=== PATIENT | female | born 1975 | race Caucasian/White ===

== ENCOUNTER 2018-05-18 15:04 | Emergency (ER) | payer MEDICAID, SELFPAY ==
[2018-05-18 15:06] VITALS: BP 104/66; PULSE 76; RESP 14; TEMP 36.5; O2SAT 98; BMI 21.9
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
--- NOTE | 2018-05-18 15:49 | ED.DEP ---
ED Disposition - Plan for ED Patient: Instructions: ED Sinusitis No Abx Prescriptions: Emtricitabine/Tenofovir (Tdf) [Truvada 200 mg-300 mg Tablet] 1 ea PO DAILY 28 Days #28 tab Guaifenesin [Mucinex] 600 mg PO BID #14 tab.er.12h Raltegravir Potassium [Isentress] 400 mg PO BID 28 Days #56 tab Referrals: John Orellana MD [NON-STAFF] - Additional Instructions: Follow-up in 2 weeks with your primary doctor for repeat blood testing. Follow-up in 4 weeks with your primary doctor for repeat blood testing again as well as your second dose of hepatitis B vaccine and second dose of hepatitis B immunoglobulin. After that, follow-up with your doctor as he or she recommends.
[2018-05-18 16:07] LABS: Absolute Lymphocyte Count 1.83 X10^3/ul (0.83-4.51); Absolute Neutrophil Count 3.1 X10^3/uL (2.0-7.7); Basophil# 0.03 X10^3/uL; Basophil% 0.5 % (0-1); Eosinophil# 0.28 X10^3/uL; Eosinophils% 5.1 % (0-5); Hematocrit 33.2 % (37-47); Hemoglobin 10.9 g/dl (12.0-15.0); Lymphocyte # 1.83 X10^3/ul (4.0); Lymphocyte % 33.4 % (19-41); Mean Corp Hgb Conc 32.8 g/gl (32-36); Mean Corpuscular Hgb 33.3 pg (27.0-32.0); Mean Corpuscular Volume 101.5 fL (81-99); Mean Platelet Vol. 10.5 fl (6.2-12.0); Monocyte# 0.25 X10^3/uL; Monocyte% 4.6 % (0-10); Neutrophil # 3.09 X10^3/uL (2.7-7.7); Neutrophil % 56.4 % (47-70); POSITIVE COUNT NO; POSITIVE DIFFERENTIAL NO; POSITIVE MORPHOLOGY NO; Platelet Count 180 K/mm3 (150-450); RBC Distribution Width CV 13.1 % (11.6-14.6); RBC Distribution Width SD 48.8 fl (35.1-43.9); Red Blood Count 3.27 M/mm3 (4.2-5.4); White Blood Count 5.5 K/mm3 (4.4-11.0)
[2018-05-18] MEDS: EMTRICITABINE/TENOFOVIR 1 TABLET TABLET PO (16:10)
[2018-05-18] MEDS: RALTEGRAVIR POTASSIUM 400 MG TABLET PO (16:11)
[2018-05-18 16:49] LABS: ALB/GLOB Ratio 0.9 RATIO (0.9-2.4); AST(SGOT) 15 U/L (15-37); Alanine Aminotransfer ALT/SGPT 16 U/L (13-56); Albumin, Serum 3.3 g/dL (3.2-5.0); Alkaline Phosphatase 109 U/L (45-117); Anion Gap 5 (5-15); BUN 9 mg/dL (7-18); BUN/Creat Ratio 13.7 RATIO (10-20); Calcium,Total 7.9 mg/dL (8.5-10.1); Chloride 111 mmol/L (98-107); Creatinine, Serum 0.66 mg/dL (0.55-1.02); EST Glomerular Filtration Rate 106 mL/min (>60); Est Glom Filt Rate - Afr Amer 128 mL/min (>60); Estimated Creatinine Clearance 109.08 ml/min; Globulin 3.7 g/dL (2.2-4.2); Glucose 79 mg/dL (74-106); Potassium 3.6 mmol/L (3.5-5.1); Sodium Level 141 mmol/L (136-145)
[2018-05-18 17:09] LABS: Pregnancy, Serum, hCG Quali. NEGATIVE Negative (0-9 Nonpreg)
[2018-05-18 17:42] LABS: HIV - WCH Non-Reactive (Nonreactive)
[2018-05-21 11:34] LABS: HEPATITIS B SURFACE AG Negative (Negative); Hep B Surface Antibodies EMP Non Reactive (.); Hep C Antibodies <0.1 s/co ratio (0.0-0.9)
== END 2018-05-18 17:19 | disposition home or self-care (01) ==
LOC: ED 15:48
PROVIDERS: Emergency Provider Emergency Medicine; Family Provider Family Medicine; PCP Family Medicine
DX: S71.131A Puncture wound without foreign body, right thigh, initial encounter (principal); J32.9 Chronic sinusitis, unspecified; W46.0XXA Contact with hypodermic needle, initial encounter; Y93.9 Activity, unspecified; Y92.9 Unspecified place or not applicable; F31.9 Bipolar disorder, unspecified
CPT/HCPCS: 80053; 84703; 85025; 86703; 86803; 87340; 90371; 90746; 96372; 99283

== ENCOUNTER 2018-06-17 13:14 | Emergency (ER) | payer MEDICAID, SELFPAY ==
[2018-06-17 13:15] VITALS: BP 134/64; PULSE 89; RESP 16; TEMP 37.3; O2SAT 100; BMI 24.5
--- NOTE | 2018-06-17 14:44 | ED.RN ---
PT STATES SHE NEEDED TO GET BACK TO EVERY [facility] BEFORE HER KIDS GOT BACK FROM SCHOOL. STATES SHE WILL TRY TO COME BACK TOMORROW.
== END 2018-06-17 14:45 | disposition left against medical advice (07) ==
LOC: ED 14:46
PROVIDERS: Emergency Provider Emergency Medicine; Family Provider Family Medicine; PCP Family Medicine
DX: M54.9 Dorsalgia, unspecified (principal)

== ENCOUNTER 2018-07-10 14:09 | Emergency (ER) | payer MEDICAID, SELFPAY ==
[2018-07-10 14:10] VITALS: BP 113/67; PULSE 82; RESP 16; TEMP 36.1; O2SAT 100; BMI 24.5
--- NOTE | 2018-07-10 14:30 | RAD_ITS ---
STUDY: X-RAY - SACRUM/COCCYX REASON FOR EXAM: Female, 42 years old. fell this morning -- LBP, tailbone pain. TECHNIQUE: 3 view(s) of the sacrum and coccyx were obtained. COMPARISON: None. FINDINGS: Normal bilateral sacroiliac joints. Normal visualized sacral ala and fused sacral bodies. Normal sacrococcygeal junction with a normal angulation. Normal coccygeal segments. The presacral soft tissue structures are unremarkable. RAD/Sacrum-Coccyx min 2 Views IMPRESSION: Normal x-rays of the sacrum and coccyx. Electronically Signed: Pj Bravo MD at 15:03 EDT Tel , Service support ,
--- NOTE | 2018-07-10 14:31 | RAD_ITS ---
STUDY: X-RAY - LUMBAR SPINE REASON FOR EXAM: Female, 42 years old. fell this morning -- LBP, tailbone pain TECHNIQUE: 5 view(s) of the lumbar spine were obtained. COMPARISON: None FINDINGS: There is straightening of the normal lumbar lordosis. There is multilevel endplate spondylosis of the lumbar vertebrae. There is multi-level degenerative disc disease with multi-level disc space narrowing. Neurostimulator leads with electrode at the thoracic spine is noted. Disc space at L5/S1 is noted. RAD/Lumbar Spine 2 or 3 Views IMPRESSION: Degenerative changes of the spine. Electronically Signed: Pj Bravo MD at 15:01 EDT Tel , Service support ,
--- NOTE | 2018-07-10 14:35 | ED.VIS.GEN ---
History of Present Illness Chief Complaint: Back Informant: Patient Onset: Today - 3-4 hrs ago Context: Sudden Onset - fell Timing: Continuous Quality: aching Location: tailbone/low back Current Severity: Severe Maximum Severity: Severe Worsened by: moving, sitting, walking Relieved by: remaining still Associated Symptoms: no other injury. no numbness/tingling or radiation into BLE. Narrative: Patient was trying to sit on a chair and she accidentally slipped, falling to the floor in her home landing directly onto her buttocks. She has had prior lumbosacral back surgery and is concerned about the area. She has no mid, upper back, or neck pain. No head injury. No focal neurologic symptoms. No bowel or bladder dysfunction. She has urinated since the injury and saw no blood, she has not had a bowel movement. Past Medical History - Allergies and Home Meds Allergies/Adverse Reactions: Allergies erythromycin base Allergy (Verified 05/18/18 15:10) Anaphylaxis iodine Allergy (Verified 05/18/18 15:10) Anaphylaxis latex Allergy (Verified 05/18/18 15:10) Rash metronidazole [From Flagyl] Allergy (Verified 05/18/18 15:10) Anaphylaxis naproxen [From Naprosyn] Allergy (Verified 05/18/18 15:10) Anaphylaxis Penicillins Allergy (Verified 05/18/18 15:10) Anaphylaxis shellfish derived Allergy (Verified 05/18/18 15:10) Anaphylaxis Primary Care Physician: John Orellana MD [Primary Care Provider] - Past Medical History: None Surgical History: - - back Lives: With Family Smoking Status: Former smoker Review of Systems General: Denies: Chills, Fever Genitourinary: Reports: - - no incontinence/retention. Denies: Hematuria, Frequency Musculoskeletal: Reports: Back pain. Denies: Extremity Pain Skin: Denies: Rash, Wounds Neurological: Denies: Weakness, Parasthesia Physical Exam Vital Signs/Narrative: Vital Signs Temp Pulse Resp BP Pulse Ox 07/10/18 14:10 96.9 F L 82 16 113/67 100 Inital Vital Signs reviewed: Yes General: Well nourished, Well developed, No Acute Distress Head: Normocephalic, Atraumatic Abdomen: Soft, Nontender, Nondistended, Normal bowel sounds Back: Normal Inspection, Spinal tenderness - distal lumbar. tender at mid-sacrum, including coccyx, which is not loose or with crepitance. no step-offs. no other spinal tenderness up the spine incl cervical. Extremities: Nontender, No edema, - - FROM all joints, including both hips Skin: Normal color, No rash, No Trauma Neurological: Alert, Oriented x3, Cranial nerves II-XII grossly intact, Normal Strength, Normal Sensation, Normal DTR Psychological: Normal affect, Normal Mood Diagnostic/Tx/Re-eval Clinical Impression(s) from Imaging Studies Sacrum and Coccyx X-Ray 07/10/18 14:30 IMPRESSION: Normal x-rays of the sacrum and coccyx. Electronically Signed: Pj Bravo MD at 15:03 EDT Tel , Service support , Lumbar Spine X-Ray 07/10/18 14:31 IMPRESSION: Degenerative changes of the spine. Electronically Signed: Pj Bravo MD at 15:01 EDT Tel , Service support , - Medical Decision Making X-ray consistent with exam, no acute fractures. Advised to return if she has gross rectal bleeding when she has a bowel movement. I do not recommend narcotics for this contusion, especially since it could cause constipation which could worsen the pain. I discussed this with her and she is agreeable. We will give her a dose Tylenol and an ice pack prior to discharge and she is comfortable with that plan of supportive care as an outpatient. ED Disposition - Plan for ED Patient: Disposition: Home or Assisted Living Diagnosis: Coccyx contusion Instructions: ED Contusion Sacrum Coccyx Referrals: John Orellana MD [Primary Care Provider] - 10-14 Days if not better
--- NOTE | 2018-07-10 14:39 | ED.DCSUM_ITS ---
History of Present Illness Chief Complaint: Back Informant: Patient Onset: Today - 3-4 hrs ago Context: Sudden Onset - fell Timing: Continuous Quality: aching Location: tailbone/low back Current Severity: Severe Maximum Severity: Severe Worsened by: moving, sitting, walking Relieved by: remaining still Associated Symptoms: no other injury. no numbness/tingling or radiation into BLE. Narrative: Patient was trying to sit on a chair and she accidentally slipped, falling to the floor in her home landing directly onto her buttocks. She has had prior lumbosacral back surgery and is concerned about the area. She has no mid, upper back, or neck pain. No head injury. No focal neurologic symptoms. No bowel or bladder dysfunction. She has urinated since the injury and saw no blood, she has not had a bowel movement. Past Medical History - Allergies and Home Meds Allergies/Adverse Reactions: Allergies erythromycin base Allergy (Verified 05/18/18 15:10) Anaphylaxis iodine Allergy (Verified 05/18/18 15:10) Anaphylaxis latex Allergy (Verified 05/18/18 15:10) Rash metronidazole [From Flagyl] Allergy (Verified 05/18/18 15:10) Anaphylaxis naproxen [From Naprosyn] Allergy (Verified 05/18/18 15:10) Anaphylaxis Penicillins Allergy (Verified 05/18/18 15:10) Anaphylaxis shellfish derived Allergy (Verified 05/18/18 15:10) Anaphylaxis Primary Care Physician: John Orellana MD [Primary Care Provider] - Past Medical History: None Surgical History: - - back Lives: With Family Smoking Status: Former smoker Review of Systems General: Denies: Chills, Fever Genitourinary: Reports: - - no incontinence/retention. Denies: Hematuria, Frequency Musculoskeletal: Reports: Back pain. Denies: Extremity Pain Skin: Denies: Rash, Wounds Neurological: Denies: Weakness, Parasthesia Physical Exam Vital Signs/Narrative: Vital Signs Temp Pulse Resp BP Pulse Ox 07/10/18 14:10 96.9 F L 82 16 113/67 100 Inital Vital Signs reviewed: Yes General: Well nourished, Well developed, No Acute Distress Head: Normocephalic, Atraumatic Abdomen: Soft, Nontender, Nondistended, Normal bowel sounds Back: Normal Inspection, Spinal tenderness - distal lumbar. tender at mid- sacrum, including coccyx, which is not loose or with crepitance. no step-offs. no other spinal tenderness up the spine incl cervical. Extremities: Nontender, No edema, - - FROM all joints, including both hips Skin: Normal color, No rash, No Trauma Neurological: Alert, Oriented x3, Cranial nerves II-XII grossly intact, Normal Strength, Normal Sensation, Normal DTR Psychological: Normal affect, Normal Mood Diagnostic/Tx/Re-eval Clinical Impression(s) from Imaging Studies Sacrum and Coccyx X-Ray 07/10/18 14:30 IMPRESSION: Normal x-rays of the sacrum and coccyx. Electronically Signed: Pj Bravo MD at 15:03 EDT Tel , Service support , Lumbar Spine X-Ray 07/10/18 14:31 IMPRESSION: Degenerative changes of the spine. Electronically Signed: Pj Bravo MD at 15:01 EDT Tel , Service support , - Medical Decision Making X-ray consistent with exam, no acute fractures. Advised to return if she has gross rectal bleeding when she has a bowel movement. I do not recommend narcotics for this contusion, especially since it could cause constipation which could worsen the pain. I discussed this with her and she is agreeable. We will give her a dose Tylenol and an ice pack prior to discharge and she is comfortable with that plan of supportive care as an outpatient. ED Disposition - Plan for ED Patient: Disposition: Home or Assisted Living Diagnosis: Coccyx contusion Instructions: ED Contusion Sacrum Coccyx Referrals: John Orellana MD [Primary Care Provider] - 10-14 Days if not better
[2018-07-10] MEDS: Acetaminophen 500 MG Tablet 1000 MG PO (16:19)
[2018-07-10 16:22] VITALS: PULSE 86; RESP 16; O2SAT 99
== END 2018-07-10 16:25 | disposition home or self-care (01) ==
PROVIDERS: Emergency Provider Emergency Medicine; Family Provider Family Medicine; PCP Family Medicine
DX: S30.0XXA Contusion of lower back and pelvis, initial encounter (principal); Z87.891 Personal history of nicotine dependence; W07.XXXA Fall from chair, initial encounter; Y93.89 Activity, other specified; Y92.009 Unspecified place in unspecified non-institutional (private) residence as the place of occurrence of the external cause; Y99.8 Other external cause status
CPT/HCPCS: 72100; 72220; 99283

== ENCOUNTER → 2018-12-17 | Outpatient (CLI) | payer MEDICAID, SELFPAY ==
[2018-12-17 10:57] VITALS: BMI 24.5
[2018-12-17 12:44] LABS: Absolute Lymphocyte Count 1.93 X10^3/uL (0.83-4.51); Absolute Neutrophil Count 3.9 X10^3/uL (2.0-7.7); Basophil# 0.03 X10^3/uL; Basophil% 0.5 % (0-1); Eosinophil# 0.17 X10^3/uL; Eosinophils% 2.7 % (0-5); Hematocrit 38.4 % (37-47); Hemoglobin 12.7 g/dL (12.0-15.0); Lymphocyte # 1.93 X10^3/ul (4.0); Lymphocyte % 30.6 % (19-41); Mean Corp Hgb Conc 33.1 g/dL (32-36); Mean Corpuscular Hgb 32.9 pg (27.0-32.0); Mean Corpuscular Volume 99.5 fL (81-99); Mean Platelet Vol. 11.2 fl (6.2-12.0); Monocyte# 0.27 X10^3/uL; Monocyte% 4.3 % (0-10); NRBC Flagged by Analyzer 0 % (0-5); Neutrophil # 3.89 X10^3/uL (2.7-7.7); Neutrophil % 61.7 % (47-70); Platelet Count 166 K/mm3 (150-450); RBC Distribution Width CV 11.9 % (11.6-14.6); RBC Distribution Width SD 43.9 fl (35.1-43.9); Red Blood Count 3.86 M/mm3 (4.2-5.4); White Blood Count 6.3 K/mm3 (4.4-11.0)
[2018-12-17 13:04] LABS: ALB/GLOB Ratio 0.9 RATIO (0.9-2.4); AST(SGOT) 16 U/L (15-37); Alanine Aminotransfer ALT/SGPT 18 U/L (13-56); Albumin, Serum 3.3 g/dL (3.2-5.0); Alkaline Phosphatase 109 U/L (45-117); Anion Gap 5 (5-15); BUN 9 mg/dL (7-18); BUN/Creat Ratio 12.9 RATIO (10-20); Calcium,Total 8.3 mg/dL (8.5-10.1); Chloride 111 mmol/L (98-107); EST Glomerular Filtration Rate 98 mL/min (>60); Est Glom Filt Rate - Afr Amer 118 mL/min (>60); Globulin 3.7 g/dL (2.2-4.2); Glucose 92 mg/dL (74-106); Potassium 4.3 mmol/L (3.5-5.1); Sodium Level 143 mmol/L (136-145)
== END | disposition home or self-care (01) ==
LOC: BIMLAB 11:21
PROVIDERS: Family Provider Family Medicine; PCP Internal Medicine; Visit Provider Internal Medicine
DX: R56.9 Unspecified convulsions (principal)
CPT/HCPCS: 36415; 80053; 85025

== ENCOUNTER 2019-01-09 16:27 | Emergency (ER) | payer MEDICAID, SELFPAY ==
[2018-12-17 10:57] VITALS: BMI 24.5
[2019-01-09 16:28] VITALS: BP 99/75; PULSE 102; RESP 16; TEMP 36.6; O2SAT 99; BMI 25.7
--- NOTE | 2019-01-09 16:42 | CT_ITS ---
STUDY: CT BRAIN WITHOUT CONTRAST REASON FOR EXAM: Female, 43 years old. Trauma RADIATION DOSAGE (If Supplied By Facility): CTDIvol = ( 44.99 ) mGy, DLP = ( 745.49 ) mGycm TECHNIQUE: Transaxial CT imaging of the brain was performed without administration of intravenous contrast material. Individualized dose optimization techniques were used for this CT. COMPARISON: No relevant priors. FINDINGS: Normal soft tissue structures. Normal calvarium. Normal size ventricles and extra-axial spaces for the patient's age. Normal white matter tracts of the cerebral hemispheres. Normal basal ganglia and thalami. Normal brainstem. Normal cerebellum. There is no intracranial hemorrhage. There are no findings of an acute ischemic infarction. Small mucous retention cyst in right maxillary sinus. CT/Brain/Head without Contrast IMPRESSION: Normal unenhanced CT scan of the brain. Minor right maxillary sinus disease Electronically Signed: John Huizar MD at 17:45 EDT , Service support ,
--- NOTE | 2019-01-09 17:20 | RAD_ITS ---
STUDY: X-RAY - LUMBAR SPINE REASON FOR EXAM: Female, 43 years old. Low back pain TECHNIQUE: 3 view(s) of the lumbar spine were obtained. COMPARISON: None FINDINGS: Normal lumbar lordosis. There is no substantial scoliosis. There is a normal alignment of the vertebrae. Disc spaces are well-maintained however there is mild multilevel endplate spurring. Status post fusion of L5-S1 No evidence for acute fracture or subluxation.. Spinal stimulator noted within the spinal canal The soft tissue structures are unremarkable. RAD/Lumbar Spine 2 or 3 Views IMPRESSION: Mild spondylosis and postsurgical changes. No acute fracture. Electronically Signed: John Huizar MD at 17:47 EDT , Service support ,
--- NOTE | 2019-01-09 17:30 | RAD_ITS ---
STUDY: X-RAY CHEST REASON FOR EXAM: Female, 43 years old. Posttraumatic pain TECHNIQUE: PA and lateral COMPARISON: None. FINDINGS: The lungs are clear and expanded. There is no demonstrated pleural abnormality. Normal size heart. Normal mediastinum and janette. Normal visualized pulmonary arteries. Normal visualized aortic arch and descending thoracic aorta. Dorsal spine demonstrates mild spondylosis. Normal visualized ribs, clavicles, and shoulders. There is no demonstrated abnormality of the visualized soft tissue structures of the upper abdomen. Epidural stimulator noted within the dorsal spinal canal RAD/Chest PA and Lateral IMPRESSION: No acute cardiopulmonary pathology Electronically Signed: John Huizar MD at 17:47 EDT , Service support ,
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
[2019-01-09] MEDS: 0.9% Normal Saline 1,000 ML 1000 ML IV (18:04)
[2019-01-09] MEDS: proMETHazine 25 MG/ML Syringe 12.5 MG IV (18:04)
[2019-01-09] MEDS: Morphine 4 MG/ML Syringe IV (18:05)
[2019-01-09 18:21] LABS: Absolute Lymphocyte Count 2.56 X10^3/uL (0.83-4.51); Absolute Neutrophil Count 4.2 X10^3/uL (2.0-7.7); Basophil# 0.03 X10^3/uL; Basophil% 0.4 % (0-1); Eosinophil# 0.25 X10^3/uL; Eosinophils% 3.3 % (0-5); Hematocrit 38.6 % (37-47); Hemoglobin 12.4 g/dL (12.0-15.0); Lymphocyte # 2.56 X10^3/ul (4.0); Lymphocyte % 34.1 % (19-41); Mean Corp Hgb Conc 32.1 g/dL (32-36); Mean Corpuscular Hgb 31.7 pg (27.0-32.0); Mean Corpuscular Volume 98.7 fL (81-99); Mean Platelet Vol. 11.1 fl (6.2-12.0); Monocyte# 0.41 X10^3/uL; Monocyte% 5.5 % (0-10); NRBC Flagged by Analyzer 0 % (0-5); Neutrophil # 4.23 X10^3/uL (2.7-7.7); Neutrophil % 56.4 % (47-70); Platelet Count 162 K/mm3 (150-450); RBC Distribution Width CV 12.1 % (11.6-14.6); Red Blood Count 3.91 M/mm3 (4.2-5.4); White Blood Count 7.5 K/mm3 (4.4-11.0)
[2019-01-09 18:32] LABS: Anion Gap 2 (5-15); BUN 11 mg/dL (7-18); BUN/Creat Ratio 15.7 RATIO (10-20); Calcium,Total 8.3 mg/dL (8.5-10.1); Chloride 111 mmol/L (98-107); EST Glomerular Filtration Rate 98 mL/min (>60); Est Glom Filt Rate - Afr Amer 118 mL/min (>60); Estimated Creatinine Clearance 101.81 ml/min; Glucose 95 mg/dL (74-106); Potassium 3.5 mmol/L (3.5-5.1); Sodium Level 140 mmol/L (136-145)
[2019-01-09 18:42] VITALS: BP 105/67; PULSE 72; RESP 16; O2SAT 97
== END 2019-01-09 19:04 | disposition home or self-care (01) ==
PROVIDERS: Emergency Provider Emergency Medicine; Family Provider Internal Medicine; PCP Internal Medicine
DX: S06.0X0A Concussion without loss of consciousness, initial encounter (principal); F17.200 Nicotine dependence, unspecified, uncomplicated; M54.5 Low back pain; Z79.891 Long term (current) use of opiate analgesic; Y04.2XXA Assault by strike against or bumped into by another person, initial encounter; Y93.89 Activity, other specified; Y92.009 Unspecified place in unspecified non-institutional (private) residence as the place of occurrence of the external cause; Y99.8 Other external cause status
CPT/HCPCS: 70450; 71046; 72100; 80048; 85025; 96361; 96374; 96375; 99283; J7030; A4216

== ENCOUNTER 2019-01-23 12:02 | Emergency (ER) | payer MEDICAID, SELFPAY ==
[2019-01-23 10:58] VITALS: BMI 25.7
[2019-01-23 12:02] VITALS: BP 117/92; PULSE 89; RESP 16; TEMP 36.9; O2SAT 100; BMI 26.2
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
== END 2019-01-23 13:14 | disposition home or self-care (01) ==
LOC: ED 12:33
PROVIDERS: Emergency Provider Emergency Medicine; Family Provider Internal Medicine; PCP Internal Medicine
DX: F07.81 Postconcussional syndrome (principal); M19.90 Unspecified osteoarthritis, unspecified site; Z86.73 Personal history of transient ischemic attack (TIA), and cerebral infarction without residual deficits; Z87.442 Personal history of urinary calculi; F17.200 Nicotine dependence, unspecified, uncomplicated
CPT/HCPCS: 99282

== ENCOUNTER → 2019-03-18 10:23 | Outpatient (CLI) | payer MEDICAID, SELFPAY ==
[2019-03-18 09:57] VITALS: BMI 26.2
[2019-03-18 12:20] LABS: Anion Gap 4 (5-15); BUN 13 mg/dL (7-18); BUN/Creat Ratio 17.2 RATIO (10-20); Calcium,Total 8.2 mg/dL (8.5-10.1); Chloride 113 mmol/L (98-107); Creatinine, Serum 0.76 mg/dL (0.55-1.02); EST Glomerular Filtration Rate 89 mL/min (>60); Est Glom Filt Rate - Afr Amer 108 mL/min (>60); Glucose 90 mg/dL (74-106); Potassium 4.2 mmol/L (3.5-5.1); Sodium Level 144 mmol/L (136-145)
[2019-03-18 12:40] LABS: Absolute Lymphocyte Count 1.65 X10^3/uL (0.83-4.51); Absolute Neutrophil Count 3.3 X10^3/uL (2.0-7.7); Basophil# 0.03 X10^3/uL; Basophil% 0.5 % (0-1); Eosinophil# 0.25 X10^3/uL; Eosinophils% 4.5 % (0-5); Hematocrit 38.3 % (37-47); Hemoglobin 12.5 g/dL (12.0-15.0); Lymphocyte # 1.65 X10^3/ul (4.0); Lymphocyte % 29.5 % (19-41); Mean Corp Hgb Conc 32.6 g/dL (32-36); Mean Corpuscular Hgb 32.7 pg (27.0-32.0); Mean Corpuscular Volume 100.3 fL (81-99); Mean Platelet Vol. 11.5 fl (6.2-12.0); Monocyte% 7.2 % (0-10); NRBC Flagged by Analyzer 0 % (0-5); Neutrophil # 3.25 X10^3/uL (2.7-7.7); Neutrophil % 58.1 % (47-70); Platelet Count 178 K/mm3 (150-450); RBC Distribution Width CV 12.7 % (11.6-14.6); Red Blood Count 3.82 M/mm3 (4.2-5.4); White Blood Count 5.6 K/mm3 (4.4-11.0)
== END ==
PROVIDERS: Family Provider Internal Medicine; PCP Internal Medicine; Visit Provider Internal Medicine
DX: R04.0 Epistaxis (principal); R42 Dizziness and giddiness
CPT/HCPCS: 36415; 80048; 85025

== ENCOUNTER 2019-04-30 10:34 | Emergency (ER) | payer MEDICAID, SELFPAY ==
[2019-03-18 09:57] VITALS: BMI 26.2
[2019-04-30 10:34] VITALS: BP 101/91; PULSE 82; RESP 16; O2SAT 97
[2019-04-30 10:35] VITALS: BP 106/69; PULSE 74; RESP 16; TEMP 36.7; O2SAT 99; BMI 29.6
[2019-04-30] MEDS: morphine 8 MG/ML Syringe IM (11:13)
[2019-04-30] MEDS: Ketorolac 60 MG/2 ML Vial IM (11:13)
--- NOTE | 2019-04-30 11:20 | RAD_ITS ---
STUDY: X-RAY - CERVICAL SPINE REASON FOR EXAM: Female, 43 years old. NECK PAIN TECHNIQUE: 2 view(s) of the cervical spine were obtained. COMPARISON: None FINDINGS: Normal anterior atlantoaxial articulation. Normal odontoid process. There is reversal of the normal cervical lordosis. Mild degree of spondylosis at the C6-C7 level with mild degree of disc space narrowing. Normal visualized intervertebral neuroforamina. The soft tissue structures are unremarkable. RAD/Cerv Spine 2 or 3 Views IMPRESSION: There is reversal of the normal cervical lordosis. Mild degree of disc space narrowing and spondylosis at the C6-C7 level. Electronically Signed: Amado Bernardo, at 12:01 EST , Service support ,
--- NOTE | 2019-04-30 11:33 | RAD_ITS ---
STUDY: X-RAY - LEFT KNEE REASON FOR EXAM: Female, 43 years old. PAIN S/P FALL TECHNIQUE: 4 view(s) of the knee. COMPARISON: None. FINDINGS: Normal visualized distal femur. Normal visualized proximal tibia and fibula. Normal proximal tibiofibular articulation. Normal medial femorotibial compartment. Normal lateral femorotibial compartment. Normal patellofemoral articulation. The soft tissue structures are unremarkable. RAD/Knee 4 or More Views IMPRESSION: Normal x-ray examination of the knee. Electronically Signed: Amado Bernardo, at 11:59 EST , Service support ,
--- NOTE | 2019-04-30 11:39 | RAD_ITS ---
STUDY: X-RAY - THORACIC SPINE REASON FOR EXAM: Female, 43 years old. BACK PAIN TECHNIQUE: 2 view(s) of the thoracic spine were obtained. COMPARISON: None. FINDINGS: Normal kyphosis of the thoracic spine. There is no substantial scoliosis. There is multilevel endplate spondylosis of the thoracic vertebrae. There is multilevel disc space narrowing of the thoracic spine. Electrodes from the TENS unit are seen. They terminate at the T6-T7 level. RAD/Thoracic Spine 2 Views IMPRESSION: Degenerative changes. Electronically Signed: Amado Bernardo, at 12:04 EST , Service support ,
[2019-04-30 12:11] VITALS: BP 92/61; PULSE 90; RESP 16; O2SAT 96
--- NOTE | 2019-04-30 12:37 | ED.VISSUMM ---
- ER Visit Summary Date of Service: 04/30/19 Chief Complaint: Fall History of Present Illness: The patient is a [address] Munoz. She reports that just prior to coming emerge department she tripped down 7-8 steps. She denies any blow to the head or loss of consciousness. She is not on anticoagulants. She reports that she has neck pain is 7 on 10 severity. She has upper back pain is 9-10 severity. She has left knee pain is 4-10 in severity. Physical Examination: Vitals: Stable. Afebrile. Neck: Mild diffuse tenderness to palpation over the entire cervical spine and paraspinous musculature. No point tenderness. Full ROM without difficulty. Back: Mild tenderness palpation in the interscapular area. General: A&O x 3. NAD. Cardiovascular exam: Regular rate and rhythm, no murmur, rub or gallop. Respiratory exam: Chest nontender. No crepitus. Clear to auscultation bilaterally. No wheezes or stridor. Abdominal exam: Soft, nontender, nondistended, normal bowel sounds. No pain in RUQ or LUQ specifically. No peritoneal signs. Extremity: Mild diffuse tenderness palpation over the entire knee. Full range of motion without difficulty. Test Results: Clinical Impression(s) from Imaging Studies Cervical Spine X-Ray 04/30/19 11:20 IMPRESSION: There is reversal of the normal cervical lordosis. Mild degree of disc space narrowing and spondylosis at the C6-C7 level. Electronically Signed: Amado Bernardo, at 12:01 EST , Service support , Knee X-Ray 04/30/19 11:33 IMPRESSION: Normal x-ray examination of the knee. Electronically Signed: Amado Bernardo, at 11:59 EST , Service support , Thoracic Spine X-Ray 04/30/19 11:39 IMPRESSION: Degenerative changes. Electronically Signed: Amado Bernardo, at 12:04 EST , Service support , Emergency Department Course and Treatment: The patient was given a shot of morphine and Toradol IM. She is resting comfortably. There are no abrasions or contusions. She refused crutches. Treatment Plan: Patient be discharged with instructions to use Tylenol and/or ibuprofen for pain. Follow-up with her automotive painter helper in 1 week if not improving. Disposition: To home in improved and stable condition. Impression: 1. Fall. 2. Cervical strain. 3. Left knee pain, acute. This note was generated with [employer] software. It may contain incorrect words, spelling, and punctuation that were not noted in review of the chart prior to signing ED Disposition - Plan for ED Patient: Disposition: Home or Assisted Living Instructions: BACK AND NECK PAIN, General Referrals: Gayle Munoz MD [Primary Care Provider] - 1 Week if not improving
[2019-04-30 12:52] VITALS: BP 107/64; PULSE 76; RESP 16; O2SAT 97
== END 2019-04-30 12:53 | disposition home or self-care (01) ==
LOC: ED 12:09
PROVIDERS: Emergency Provider Emergency Medicine; PCP Internal Medicine
DX: S16.1XXA Strain of muscle, fascia and tendon at neck level, initial encounter (principal); M25.562 Pain in left knee; M54.6 Pain in thoracic spine; M54.2 Cervicalgia; W10.9XXA Fall (on) (from) unspecified stairs and steps, initial encounter; Y93.9 Activity, unspecified; Y92.9 Unspecified place or not applicable; Y99.9 Unspecified external cause status; F32.9 Major depressive disorder, single episode, unspecified; F41.9 Anxiety disorder, unspecified; Z72.0 Tobacco use; Z79.82 Long term (current) use of aspirin; Z79.899 Other long term (current) drug therapy
CPT/HCPCS: 72040; 72070; 73564; 96372; 99284

== ENCOUNTER 2019-05-05 11:24 | Emergency (ER) | payer MEDICAID, SELFPAY ==
[2019-05-02 14:48] VITALS: BMI 29.6
[2019-05-05 11:26] VITALS: BP 125/37; PULSE 91; RESP 16; TEMP 36.1; O2SAT 98; BMI 29.6
--- NOTE | 2019-05-05 11:39 | RAD_ITS ---
STUDY: X-RAY - LEFT KNEE REASON FOR EXAM: Female, 43 years old. FALL LAST SUNDAY. PAIN. TECHNIQUE: 4 view(s) of the knee. COMPARISON: None. FINDINGS: Normal visualized distal femur. Normal visualized proximal tibia and fibula. Normal proximal tibiofibular articulation. Normal medial femorotibial compartment. Normal lateral femorotibial compartment. Normal patellofemoral articulation. The soft tissue structures are unremarkable. RAD/Knee 4 or More Views IMPRESSION: Normal x-ray examination of the knee. Electronically Signed: Amado Bernardo, at 12:30 EST , Service support ,
--- NOTE | 2019-05-05 12:12 | ED.DCSUM_ITS ---
History of Present Illness Chief Complaint: Lower Extremity Injury Narrative: Patient presents with left knee and leg pain. Patient states she was seen last week after a fall and had x-rays of her knee that were negative. An Avery wrap was applied. She states it was the wide Avery wrap. She went to her PCP and they put a smaller Avery wrap on but wanted to keep an Avery wrap on to help prevent swelling. She states that the Avery wrap is now causing an indentation in her leg it is severely painful. She states that 1 of her children fell on the knee as well. She tells me her pain management doctor suggested she comes to the emergency department. She tells me that her pain management doctors also her orthopedic doctor. They are in [place]. Past Medical History - Allergies and Home Meds Allergies/Adverse Reactions: Allergies erythromycin base Allergy (Verified 05/05/19 11:25) Anaphylaxis iodine Allergy (Verified 05/05/19 11:25) Anaphylaxis latex Allergy (Verified 05/05/19 11:25) Rash metronidazole [From Flagyl] Allergy (Verified 05/05/19 11:25) Anaphylaxis naproxen [From Naprosyn] Allergy (Verified 05/05/19 11:25) Anaphylaxis Penicillins Allergy (Verified 05/05/19 11:25) Anaphylaxis shellfish derived Allergy (Verified 05/05/19 11:25) Anaphylaxis adhesive Adverse Reaction (Mild, Verified 05/05/19 11:25) BLISTERS All Cillins Allergy (Severe, Uncoded 05/05/19 11:25) Anaphylaxis Primary Care Physician: Gayle Munoz MD [Primary Care Provider] - Surgical History: - - back Smoking Status: Current every day smoker Review of Systems General: Denies: Chills, Fever, Sweats Eyes: Denies: Visual changes - bilaterally, Diplopia ENT: Denies: Rhinorrhea, Sore throat Cardiovascular: Denies: Chest pain, Palpitations Respiratory: Denies: Dyspnea, Cough, Dyspnea on exertion Gastrointestinal: Denies: Abdominal pain, Nausea, Vomiting, Diarrhea, Melena, Hematochezia Genitourinary: Denies: Dysuria, Hematuria, Frequency Musculoskeletal: Reports: Back pain, Extremity Pain Skin: Denies: Rash, Wounds Neurological: Denies: Headache, Weakness, Numbness Physical Exam Vital Signs/Narrative: Vital Signs Temp Pulse Resp BP Pulse Ox 05/05/19 11:26 97 F L 91 16 125/37 H 98 Inital Vital Signs reviewed: Yes General: Well nourished, Well developed, No Acute Distress Head: Normocephalic, Atraumatic Eyes: Perrl, EOMI ENT: Moist mucous membranes, No rhinorrhea Neck: Supple, Nontender Cardiovascular: Regular rate, Regular rhythm, No murmurs Respiratory: No distress, CTA bilaterally, Chest nontender Abdomen: Soft, Nontender, Nondistended, Normal bowel sounds Back: Nontender, Normal Inspection Extremities: Tenderness - There is no joint effusion. There is diffuse tenderness to palpation out of proportion to exam of the knee and the leg. There is very mild swelling of the leg. There are no palpable cords. The compartments are soft. Excellent distal vascular and neurologic test. Skin: Normal color, No rash Neurological: Alert, Oriented x3, Cranial nerves II-XII grossly intact, Normal Strength, Normal Sensation Psychological: Normal affect, Normal Mood Diagnostic/Tx/Re-eval - Medical Decision Making Duplex ultrasound is negative for DVT. The knee x-rays were negative for fracture. Patient will be discharged home instructions to follow-up with her orthopedist. ED Disposition - Plan for ED Patient: Disposition: [facility] Hospital or Unit Diagnosis: Left knee pain Instructions: KNEE PAIN, Uncertain Cause Additional Instructions: Call to schedule follow-up with your orthopedist
[2019-05-05 12:47] VITALS: PULSE 89; RESP 17; O2SAT 96
== END 2019-05-05 12:48 | disposition home or self-care (01) ==
PROVIDERS: Emergency Provider Emergency Medicine; PCP Internal Medicine
DX: M25.562 Pain in left knee (principal); W50.0XXA Accidental hit or strike by another person, initial encounter; Y93.9 Activity, unspecified; Y92.9 Unspecified place or not applicable; F17.200 Nicotine dependence, unspecified, uncomplicated
CPT/HCPCS: 73564; 93971; 99282

== ENCOUNTER → 2019-06-05 10:01 | Outpatient (CLI) | payer MEDICAID, SELFPAY ==
[2018-12-17 10:57] VITALS: BMI 24.5
--- NOTE | 2019-06-05 10:04 | BI_ITS ---
MAMMOGRAPHY - BILATERAL SCREENING REASON FOR EXAM: Female, 43 years old. Routine annual screening examination. PERTINENT HISTORY: Family history of breast cancer TECHNIQUE: Digital bilateral breast ahmet (3D mammographic acquisition) in the CC and MLO projections. 2-D mediolateral oblique (MLO) and craniocaudad (CC) views of both breasts were obtained. CAD: Full Field Digital Mammography with Computer Added Detection was performed. COMPARISON: Baseline FINDINGS: Breast Composition: Heterogeneously dense There are no dominant masses or suspicious calcifications. No other significant abnormalities are identified. BI/SCREEN MAMM (CAD) W/AHMET BILAT IMPRESSION: Stable bilateral screening mammogram. Yearly follow-up mammogram recommended. (A) ASSESSMENT CATEGORY: BIRADS Category 1: Negative. A letter regarding these results will be sent to the patient by the facility within 30 days. Approximately 10% of breast cancers are not detected by mammography. A normal mammogram should not delay biopsy of a clinically suspicious abnormality. [id number] Electronically Signed: Omkar Bird, at 18:25 EST Tel , Service support ,
== END ==
PROVIDERS: Family Provider Family Medicine; PCP Internal Medicine; Referring Provider Internal Medicine; Visit Provider Internal Medicine
DX: Z12.31 Encounter for screening mammogram for malignant neoplasm of breast (principal)
CPT/HCPCS: 77063; 77067

== ENCOUNTER 2019-06-17 09:07 | Day surgery (SDC) | payer MEDICAID, SELFPAY ==
[2019-06-09 13:29] VITALS: BMI 29.6
[2019-06-17] VITALS (12 sets, daily range): BP systolic 95–124; BP diastolic 50–74; PULSE 77–88; RESP 16–17; TEMP 36.4–36.8; O2SAT 93–98; BMI 28.2
[2019-06-17] MEDS: Lactated Ringers 1,000 ML 100 ML IV (09:41)
[2019-06-17] MEDS: Vancomycin IV 1,000 MG/200 ML BAG 200 MG IV (09:41)
--- NOTE | 2019-06-17 10:27 | OP.PCM_ITS ---
Problem List (1) Urinary urgency Status: Acute (2) Urge incontinence Status: Acute (3) Urinary frequency Status: Acute Report of Operation Date of Procedure: 06/17/19 Pre-Operative Diagnosis: urinary urgency, frequency and urge incontinence Post-Operative Diagnosis: same Surgery/Procedure Performed:: Interstim Stage 1 Type of Anesthesia:: MAC Description of Procedure: The patient is a 43-year-old female who has failed level 1 and 2 management for her urgency, frequency and incontinence. She is also failed Botox. She now presents for insertion of an InterStim stage I after obtaining consent. Her manager decision support/social services specialist has been present throughout the process. The patient was taken to the operating room and placed in a prone position on the operating room table. She is appropriately padded and secured to the table. Anesthesia monitored the head, neck, airway, IV access and vital signs throughout the case. Once anesthesia was appropriately administered, the patient was prepped and draped in usual sterile fashion. Using fluoroscopic visualization her S3 foramen was intubated following local infiltration with lidocaine. A good samina and toe response was obtained on the patient's left side. An incision was made around the needle and the area was dilated. The tined lead was then inserted. A good response was achieved on all 4 leads lead sites. An area was selected for her pocket in this area was infiltrated with lidocaine for pain control. An incision was made in approximately 2 cm in size. The pocket was opened with Bovie and blunt dissection. The lead was tunneled into this site and the boot was attached. It was secured using Prolene suture. The lead extension was then tunneled in a cephalad position. The boot was buried in the pocket which was closed with 3-0 Vicryl followed by 4-0 subcuticular closure. The lead insertion site was also closed with Vicryl. Dermabond was placed in the pocket site. The battery was attached to the lead extension and secured into place using an OpSite followed by tape. The patient tolerated the procedure well and was taken to the recovery room in good condition. There were no complications during the procedure. Grafts/Implants Used: Interstim Lead and lead extension - Admit VTE Documentation VTE Present on Admission: No VTE Pharm Prophylaxis ordered?: No Reason prophylaxis not ordered:: Procedure Not Indicated
--- NOTE | 2019-06-17 10:29 | DCINST_ITS ---
Discharge Diet: No Restrictions Discharge Activity: May Not Shower Additional Activity Instructions:: no strenuous activity or exercise, avoid bending and stretching, pushing and pulling Call your doctor if your incision/area has: Continuous Slow Oozing, Sudden Increased Bleeding, Increased Pain/ Swelling, Foul Smelling Discharge Call your doctor if you observe: Fever of 101 or Higher, Inability to urinate, Inability to have a bowel movement Allergies/Adverse Reactions: Allergies erythromycin base Allergy (Verified 06/17/19 09:28) Anaphylaxis iodine Allergy (Verified 06/17/19:) Anaphylaxis latex Allergy (Verified 06/17/19:) Rash metronidazole [From Flagyl] Allergy (Verified 06/17/19:) Anaphylaxis naproxen [From Naprosyn] Allergy (Verified 06/17/19:) Anaphylaxis Penicillins Allergy (Verified 06/17/19:) Anaphylaxis shellfish derived Allergy (Verified 06/17/19:) Anaphylaxis adhesive Adverse Reaction (Mild, Verified 06/17/19:) BLISTERS All Cillins Allergy (Severe, Uncoded 06/17/19 09:28) Anaphylaxis Medications to take at Discharge Gabapentin 600 mg PO TID 07/10/18 hydrOXYzine pamoate capsule [Vistaril pamoate capsule] 50 mg PO TID PRN 07/10/18 traZODone [Desyrel] 150 mg PO QHS 07/10/18 carbamazepine 200 mg tablet 200 mg PO DAILY 08/15/18 topiramate 200 mg tablet 200 mg PO QHS tab 08/15/18 tramadol 50 mg tablet 50 mg PO TID PRN 08/15/18 aspirin 81 mg tablet,delayed release 81 mg PO DAILY 12/17/18 cyclobenzaprine 10 mg tablet 10 mg PO BID PRN tab 01/23/19 docusate sodium 100 mg capsule 100 mg PO DAILY PRN #90 cap 02/21/19 loratadine 10 mg tablet 10 mg PO DAILY PRN #20 tab 02/21/19 aripiprazole 15 mg tablet 15 mg PO DAILY 03/18/19 duloxetine 30 mg capsule,delayed release 90 mg PO QHS 06/09/19 Carbamazepine [Tegretol] 400 mg PO QHS 06/10/19 Dicyclomine HCl 10 mg PO BID 06/10/19 Gly/Dimeth/Petrolat,Wht/Water [Cetaphil Moisturizing] 1 applic TOPICAL BID 06/10/19 Levetiracetam 500 mg PO BID 06/10/19 Methenam/Sod Phos/Mblue/Hyoscy [Urogesic-Blue Tablet] 1 ea PO BID 06/10/19 Montelukast Sodium [Singulair] 10 mg PO QHS 06/10/19 Simvastatin 20 mg PO QHS 06/10/19 promethazine 25 mg tablet 25 mg PO BID PRN #30 tab 06/12/19 Primary Care Physician: Gayle Munoz MD [Primary Care Provider] - Test Results: Test results from this visit will be discussed in further detail at your follow- up appointment, if applicable. Please Follow Up With: Kim Riggs MD When: call for appt to be seen in the office next week Proposed Discharge Date: 06/17/19
--- NOTE | 2019-06-17 10:30 | RAD_ITS ---
STUDY: X-RAY - PELVIS REASON FOR EXAM: Female, 43 years old. INTERSTIM THERAPY IN SURGERY. TECHNIQUE: One view of the pelvis was obtained. COMPARISON: None. FINDINGS: Single image was submitted, as radiology support for c-arm imaging in the operating room. This is not a diagnostic examination. Images for documentation purposes only. Fluoroscopy time if reported: 21.8 seconds RAD/Pelvis 1 or 2 Views IMPRESSION: Intraoperative fluoroscopic image guidance. Electronically Signed: Danii Faustin MD at 5:19 EDT , Service support ,
== END 2019-06-17 14:34 | disposition home or self-care (01) ==
LOC: SDC 09:08 → AC 09:10
PROVIDERS: PCP Internal Medicine; Referring Provider Urology; Visit Provider Urology
PROC: (CPT 64581; principal; 2019-06-17 11:15)
DX: Z46.6 Encounter for fitting and adjustment of urinary device (principal); R35.0 Frequency of micturition; R39.15 Urgency of urination; Z79.899 Other long term (current) drug therapy; E78.00 Pure hypercholesterolemia, unspecified; F41.9 Anxiety disorder, unspecified; F17.200 Nicotine dependence, unspecified, uncomplicated; M19.90 Unspecified osteoarthritis, unspecified site; K58.9 Irritable bowel syndrome, unspecified; G60.9 Hereditary and idiopathic neuropathy, unspecified
CPT/HCPCS: 00630; 64581; 72170; 76000; J7120; C1778

== ENCOUNTER 2019-06-27 10:19 | Day surgery (SDC) | payer MEDICAID, SELFPAY ==
[2019-06-17 09:33] VITALS: BMI 28.2
[2019-06-27] VITALS (7 sets, daily range): BP systolic 88–115; BP diastolic 49–73; PULSE 72–86; RESP 14–18; TEMP 36.2–36.9; O2SAT 95–98; BMI 28.3
--- NOTE | 2019-06-27 10:37 | PCM.OPRPT ---
Problem List (1) Urinary urgency Status: Acute (2) Urge incontinence Status: Acute (3) Urinary frequency Status: Acute Report of Operation Date of Procedure: 06/27/19 Pre-Operative Diagnosis: urinary urgency, frequency and urge incontinence Post-Operative Diagnosis: same Surgery/Procedure Performed:: Interstim Stage 2 Type of Anesthesia:: MAC Special Medications: vancomycin Description of Procedure: The patient is a 43-year-old female with successful stage I InterStim trial. She now presents for implantation of her IPG. Informed consent was obtained. She was taken to the operating room placed in a prone position on the operating room table. She is appropriately padded and secured to the table. Anesthesia monitored the head, neck, airway, IV access and vital signs throughout the case. Once anesthesia was appropriately administered she was prepped and draped in usual sterile fashion. The incision over the boot was infiltrated with lidocaine. It was then opened with a knife and the boot was brought into the operative field. The boot was then removed using the torque wrench. The pocket site was enlarged with sharp and blunt dissection and hemostasis was achieved. At this time the lead was dried and inserted into the IPG and secured into position using the torque wrench. The IPG was then placed into the pocket and impedances were found to be 0. The pocket was then closed with 3-0 interrupted Vicryl followed by 4-0 subcuticular suturing and then Dermabond. The patient was then awakened and taken to the recovery room in good condition. There were no complications during the procedure. Grafts/Implants Used: InterstimIPG - Complications none - Admit VTE Documentation VTE Present on Admission: Yes VTE Mechan Device Prophylaxis: SCD's, None VTE Pharm Prophylaxis ordered?: No Reason prophylaxis not ordered:: Treatment Not Indicated
--- NOTE | 2019-06-27 10:39 | DCINST_ITS ---
Discharge Diet: No Restrictions Discharge Activity: May not drive while taking narcotic pain medications., May Shower - in 2 days Call your doctor if your incision/area has: Continuous Slow Oozing, Sudden Increased Bleeding, Increased Pain/ Swelling, Increased Redness, Foul Smelling Discharge, Swelling at the incision site Call your doctor if you observe: Fever of 101 or Higher, Inability to urinate, Inability to have a bowel movement Allergies/Adverse Reactions: Allergies erythromycin base Allergy (Verified 06/17/19 09:28) Anaphylaxis iodine Allergy (Verified 06/17/19:) Anaphylaxis latex Allergy (Verified 06/17/19:) Rash metronidazole [From Flagyl] Allergy (Verified 06/17/19:) Anaphylaxis naproxen [From Naprosyn] Allergy (Verified 06/17/19:) Anaphylaxis Penicillins Allergy (Verified 06/17/19:) Anaphylaxis shellfish derived Allergy (Verified 06/17/19:) Anaphylaxis adhesive Adverse Reaction (Mild, Verified 06/17/19:28) BLISTERS All Cillins Allergy (Severe, Uncoded 06/17/19 09:28) Anaphylaxis Medications to take at Discharge RX: Gabapentin 600 mg PO TID 07/10/18 RX: hydrOXYzine pamoate capsule [Vistaril pamoate capsule] 50 mg PO TID PRN 07/10/18 RX: traZODone [Desyrel] 150 mg PO QHS 07/10/18 carbamazepine 200 mg tablet 200 mg PO DAILY 08/15/18 topiramate 200 mg tablet 200 mg PO QHS tab 08/15/18 tramadol 50 mg tablet 50 mg PO TID PRN 08/15/18 aspirin 81 mg tablet,delayed release 81 mg PO DAILY 12/17/18 cyclobenzaprine 10 mg tablet 10 mg PO BID PRN tab 01/23/19 docusate sodium 100 mg capsule 100 mg PO DAILY PRN #90 cap 02/21/19 loratadine 10 mg tablet 10 mg PO DAILY PRN #20 tab 02/21/19 aripiprazole 15 mg tablet 15 mg PO DAILY 03/18/19 duloxetine 30 mg capsule,delayed release 90 mg PO QHS 06/09/19 RX: Carbamazepine [Tegretol] 400 mg PO QHS 06/10/19 RX: Dicyclomine HCl 10 mg PO BID 06/10/19 RX: Gly/Dimeth/Petrolat,Wht/Water [Cetaphil Moisturizing Cream] 1 applic TOPICAL BID 06/10/19 RX: Levetiracetam 500 mg PO BID 06/10/19 RX: Methenam/Sod Phos/Mblue/Hyoscy [Urogesic-Blue Tablet] 1 ea PO BID 06/10/19 RX: Montelukast Sodium [Singulair] 10 mg PO QHS 06/10/19 RX: Simvastatin 20 mg PO QHS 06/10/19 promethazine 25 mg tablet 25 mg PO BID PRN #30 tab 06/12/19 Primary Care Physician: Gayle Munoz MD [Primary Care Provider] - Test Results: Test results from this visit will be discussed in further detail at your follow- up appointment, if applicable. Please Follow Up With: Kim Riggs MD When: call office for appt Proposed Discharge Date: 06/27/19
[2019-06-27] MEDS: Lactated Ringers 1,000 ML 100 ML IV (11:05)
[2019-06-27] MEDS: Vancomycin IV 1,000 MG/200 ML BAG 200 MG IV (11:48)
[2019-06-27] MEDS: oxyCODONE 5 MG Tablet PO (14:02)
[2019-06-27] MEDS: Acetaminophen 325 MG Tablet PO (14:02)
== END 2019-06-27 14:14 | disposition other institution (70) ==
LOC: SDC 10:19 → AC 10:20
PROVIDERS: PCP Internal Medicine; Referring Provider Urology; Visit Provider Urology
PROC: (CPT 64590; principal; 2019-06-27 12:30)
DX: Z46.6 Encounter for fitting and adjustment of urinary device (principal); R35.0 Frequency of micturition; N39.41 Urge incontinence; Z79.899 Other long term (current) drug therapy; F17.200 Nicotine dependence, unspecified, uncomplicated; K58.9 Irritable bowel syndrome, unspecified; G60.9 Hereditary and idiopathic neuropathy, unspecified; M19.90 Unspecified osteoarthritis, unspecified site; Z79.82 Long term (current) use of aspirin; E78.00 Pure hypercholesterolemia, unspecified; F41.9 Anxiety disorder, unspecified; F32.9 Major depressive disorder, single episode, unspecified
CPT/HCPCS: 64590; J7120; C1767; J2405

== ENCOUNTER → 2019-08-04 08:29 | Outpatient (CLI) | payer MEDICAID, SELFPAY ==
[2019-07-23 10:35] VITALS: BMI 28.3
--- NOTE | 2019-08-04 08:40 | RAD_ITS ---
STUDY: X-RAY - RIGHT SHOULDER REASON FOR EXAM: Female, 43 years old. PAIN IN RIGHT SHOULDER. HX OF A FALL. HX OF RIGHT ROTATOR CUFF SURGERY TO RIGHT SHOULDER IN THE PAST. TECHNIQUE: 4 view(s) of the shoulder. COMPARISON: None. FINDINGS: Normal glenohumeral articulation. Normal acromioclavicular joint. Normal acromion. Normal humeral head and visualized proximal humerus. The soft tissue structures are unremarkable. Normal visualized pulmonary apex. RAD/Shoulder min 2 Views IMPRESSION: Normal x-ray examination of the shoulder. Electronically Signed: Amado Bernardo, at 9:00 EDT , Service support ,
== END ==
PROVIDERS: PCP Internal Medicine; Referring Provider Orthopaedic Surgery; Visit Provider Orthopaedic Surgery
DX: M25.511 Pain in right shoulder (principal)
CPT/HCPCS: 73030

== ENCOUNTER → 2019-08-14 08:28 | Outpatient (CLI) | payer MEDICAID, SELFPAY ==
[2019-08-04 08:30] VITALS: BMI 28.3
--- NOTE | 2019-08-14 08:29 | CT_ITS ---
STUDY: CT RIGHT SHOULDER REASON FOR EXAM: Female, 43 years old. Right shoulder arthrogram, 10mL injected. Shoulder pain x 6 months. RADIATION DOSAGE (If Supplied By Facility): CTDIvol = ( 36.41 ) mGy, DLP = ( 711.95 ) mGycm TECHNIQUE: The patient was scanned in a multi detector CT scanner. High resolution transaxial imaging was performed without the administration of intravenous contrast material. Sagittal and coronal images were reconstructed. Individualized dose optimization techniques were used for this CT. COMPARISON: Comparison is made with prior arthrogram of the right shoulder done earlier in the day. FINDINGS: Normal glenohumeral articulation. Normal glenoid rim, neck and visualized scapula. Normal humeral head, neck and tuberosities. I suspect a partial tear of the rotator cuff. Normal coracoid process. Normal visualized lateral clavicle. Normal acromioclavicular articulation. There is a Type II morphology (curved), with a neutral orientation. Normal visualized muscles and soft tissue structures. CT/Extremity Upper WITH Contrast IMPRESSION: I suspect a partial tear of the rotator cuff. Electronically Signed: Amado Bernardo, at 9:51 EDT , Service support ,
--- NOTE | 2019-08-14 08:50 | RAD_ITS ---
CLINICAL HISTORY: Female, 43 years old. Pain following injury. Prior surgery for rotator cuff repair. PROCEDURE: ARTHROGRAM - RIGHT SHOULDER CONSENT: The procedure as well as the benefits and possible complications including infection and bleeding were explained to the patient. An informed consent was obtained. FLUOROSCOPY TIME (if supplied): (51 seconds) minutes/seconds Injection Information: 10 cc of the dilute Magnevist. Number of images obtained: 4 TECHNIQUE: (All elements of maximal sterile barrier technique followed, including US elements as applicable) The patient was in the supine position. The overlying skin was prepped and draped in the usual sterile fashion. Following local anesthetic application and under direct fluoroscopic guidance, a 22-gauge spinal needle was placed into the joint. 2 cc of Isovue 300 was injected for confirmation. Following this, 10 cc of dilute Magnevist was injected. The patient tolerated the procedure well. RAD/Arthrogram Shoulder IMPRESSION: Successful right shoulder arthrogram. A CT scan will follow Electronically Signed: Amado Bernardo, at 9:50 EDT , Service support ,
== END ==
PROVIDERS: PCP Internal Medicine; Referring Provider Orthopaedic Surgery; Visit Provider Orthopaedic Surgery
DX: M25.562 Pain in left knee (principal); S46.001A Unspecified injury of muscle(s) and tendon(s) of the rotator cuff of right shoulder, initial encounter
CPT/HCPCS: 23350; 73040; 73201; A9575; Q9967

== ENCOUNTER → 2019-08-18 08:29 | Outpatient (CLI) | payer MEDICAID, SELFPAY ==
[2019-08-04 08:30] VITALS: BMI 28.3
--- NOTE | 2019-08-18 08:42 | CT_ITS ---
STUDY: CT LEFT KNEE WITH CONTRAST REASON FOR EXAM: Female, 43 years old. LT KNEE ARTHROGRAM, KNEE PAIN RADIATION DOSAGE (If Supplied By Facility): CTDIvol = ( 15.35 ) mGy, DLP = ( 369.11 ) mGycm TECHNIQUE: Transaxial CT imaging of the knee was performed post contrast administration. The examination was performed with intravenous administration of 10 CC DOTAREM. Individualized dose optimization techniques were used for this CT. COMPARISON: None. FINDINGS: Normal medial femoral condyle and medial tibial plateau. There is preservation of the articular joint space of the medial knee compartment. Normal lateral femoral condyle and lateral tibial plateau. There is preservation of the articular joint space of the lateral knee compartment. Normal proximal tibiofibular articulation. There is no joint effusion. There is no demonstrated abnormal enhancement. The quadriceps tendon is grossly normal. The patellar tendon is grossly normal. Normal Hoffa''s fat pad. The soft tissues are unremarkable. CT/Extremity Lower WITH Contrast IMPRESSION: Normal enhanced CT of the knee. Electronically Signed: Amado Bernardo, at 10:03 EDT , Service support ,
--- NOTE | 2019-08-18 08:42 | RAD_ITS ---
CLINICAL HISTORY: Female, 43 years old. Left knee pain. PROCEDURE: ARTHROGRAM - LEFT KNEE CONSENT: The procedure as well as the benefits and possible complications including infection and bleeding were explained to the patient. Informed consent was obtained. FLUOROSCOPY TIME (if supplied): (61 seconds) minutes/seconds Injection Information: 10 cc of dilute Magnevist Number of images obtained: 1 TECHNIQUE: (All elements of maximal sterile barrier technique followed, including US elements as applicable) The patient was in the supine position. The overlying skin was prepped and draped in usual sterile fashion. Following local anesthetic application and under direct fluoroscopic guidance, a 22-gauge spinal needle was placed into the knee joint via the lateral approach. 10 cc of dilute Magnevist was injected. A CT scan will follow. RAD/Arthrogram Knee IMPRESSION: Left knee arthrogram with injection of 10 cc of dilute Magnevist. A CT scan will follow. The patient tolerated the procedure well. Electronically Signed: Amado Bernardo, at 10:02 EDT , Service support ,
== END ==
PROVIDERS: PCP Internal Medicine; Referring Provider Orthopaedic Surgery; Visit Provider Orthopaedic Surgery
DX: M25.562 Pain in left knee (principal)
CPT/HCPCS: 27369; 73580; 73701; A9575; Q9967

== ENCOUNTER → 2019-09-08 11:34 | Outpatient (CLI) | payer MEDICAID, SELFPAY ==
[2019-09-08 10:45] VITALS: BMI 28.3
[2019-09-08 12:43] LABS: Absolute Neutrophil Count 4.2 X10^3/uL (2.0-7.7); Basophil# 0.04 X10^3/uL; Basophil% 0.6 % (0-1); Eosinophil# 0.16 X10^3/uL; Eosinophils% 2.5 % (0-5); Hematocrit 38.9 % (37-47); Hemoglobin 12.9 g/dL (12.0-15.0); Lymphocyte % 27.8 % (19-41); Mean Corp Hgb Conc 33.2 g/dL (32-36); Mean Corpuscular Hgb 32.7 pg (27.0-32.0); Mean Corpuscular Volume 98.7 fL (81-99); Mean Platelet Vol. 11.3 fl (6.2-12.0); Monocyte# 0.32 X10^3/uL; Monocyte% 4.9 % (0-10); NRBC Flagged by Analyzer 0 % (0-5); Neutrophil # 4.15 X10^3/uL (2.7-7.7); Platelet Count 188 K/mm3 (150-450); RBC Distribution Width CV 12.1 % (11.6-14.6); RBC Distribution Width SD 44.6 fl (35.1-43.9); Red Blood Count 3.94 M/mm3 (4.2-5.4); White Blood Count 6.5 K/mm3 (4.4-11.0)
[2019-09-08 13:25] LABS: ALB/GLOB Ratio 0.8 RATIO (0.9-2.4); AST(SGOT) 13 U/L (15-37); Alanine Aminotransfer ALT/SGPT 27 U/L (13-56); Albumin, Serum 3.2 g/dL (3.2-5.0); Alkaline Phosphatase 131 U/L (45-117); Anion Gap 6 (5-15); BUN 8 mg/dL (7-18); BUN/Creat Ratio 12.9 RATIO (10-20); Calcium,Total 8.3 mg/dL (8.5-10.1); Chloride 108 mmol/L (98-107); Creatinine, Serum 0.62 mg/dL (0.55-1.02); EST Glomerular Filtration Rate 111 mL/min (>60); Est Glom Filt Rate - Afr Amer 135 mL/min (>60); Globulin 4.1 g/dL (2.2-4.2); Glucose 76 mg/dL (74-106); Potassium 3.8 mmol/L (3.5-5.1); Protein, Total 7.3 g/dL (6.4-8.2); Sodium Level 140 mmol/L (136-145); Thyroid Stim Hormone (TSH) 0.83 uIU/mL (0.358-3.74)
== END ==
PROVIDERS: PCP Internal Medicine; Visit Provider Internal Medicine
DX: F41.8 Other specified anxiety disorders (principal)
CPT/HCPCS: 36415; 80053; 84443; 85025

== ENCOUNTER → 2019-09-17 08:18 | Outpatient (CLI) | payer MEDICAID, SELFPAY ==
[2019-09-08 10:45] VITALS: BMI 28.3
== END ==
PROVIDERS: PCP Internal Medicine; Referring Provider Urology; Visit Provider Urology
DX: R35.0 Frequency of micturition (principal); R35.1 Nocturia
CPT/HCPCS: 87086; 87088

== ENCOUNTER 2019-09-23 06:33 | Day surgery (SDC) | payer MEDICAID, SELFPAY ==
[2019-09-08 10:45] VITALS: BMI 28.3
[2019-09-22 17:14] LABS: Probe Check PASS; Specimen Processing Control PASS
[2019-09-23] VITALS (9 sets, daily range): BP systolic 99–110; BP diastolic 47–78; PULSE 72–82; RESP 14–16; TEMP 36.1–36.6; O2SAT 93–100; BMI 29.8
[2019-09-23] MEDS: Vancomycin IV 1,000 MG/200 ML BAG 200 MG IV (07:00)
[2019-09-23] MEDS: Lactated Ringers 1,000 ML 100 ML IV (07:32)
--- NOTE | 2019-09-23 08:17 | PCM.HP.STD ---
Problem List (1) Urinary urgency Status: Acute (2) Urge incontinence Status: Acute (3) Urinary frequency Status: Acute History of Present Illness Date of Admission: 09/23/19 Chief Complaint: Urinary urgency, frequency, and incontinence The patient is a 44 year old F who has had a successful implantation of an InterStim for her bladder function. She subsequently fell and landed on the unit and now it will not stay on, and does not communicate well with the controller. She presents for InterStim pocket revision and battery change. Past Medical History Past Medical History (Chronic Problems): Chronic Problems (Last Reviewed 01/10/19 @ 09:41 by Melani Camara) Gastroesophageal reflux disease (Chronic) Migraines (Chronic) Lamar's palsy (Chronic) Depression with anxiety (Chronic) Stroke (Chronic) x3, TIA's Seizures (Chronic) Osteoarthritis (Chronic) Neuropathy (Chronic) Irritable bowel syndrome (Chronic) Hearing problem (Chronic) Gastrointestinal problem (Chronic) Hx of emotional problems (Chronic) Carpal tunnel syndrome (Chronic) Back problem (Chronic) Arthritis (Chronic) Seasonal allergies (Chronic) Medical History: Medical History (Last Reviewed 09/23/19 @ 08:[address] 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) C80.1 Ulcer (Acute) Stomach Lipoma (Resolved) D17.9 Stroke (Chronic) I63.9 x3, TIA's Seizures (Chronic) R56.9 Osteoarthritis (Chronic) M19.90 Neuropathy (Chronic) G62.9 Kidney stones (Resolved) N20.0 Irritable bowel syndrome (Chronic) K58.9 Hives (Resolved) L50.9 Hearing problem (Chronic) H91.90 Gastrointestinal problem (Chronic) R19.8 Hx of emotional problems (Chronic) F48.9 Carpal tunnel syndrome (Chronic) G56.00 Back problem (Chronic) M53.9 Arthritis (Chronic) M19.90 Seasonal allergies (Chronic) J30.2 Allergies venom-honey bee Allergy (Severe, Verified 09/23/19 07:13) severe venom-wasp Allergy (Severe, Verified 09/23/19 07:13) severe erythromycin base Allergy (Verified 09/23/19 07:13) Anaphylaxis iodine Allergy (Verified 09/23/19 07:13) Anaphylaxis latex Allergy (Verified 09/23/19 07:13) Rash metronidazole [From Flagyl] Allergy (Verified 09/23/19 07:13) Anaphylaxis naproxen [From Naprosyn] Allergy (Verified 09/23/19 07:13) Anaphylaxis Penicillins Allergy (Verified 09/23/19 07:13) Anaphylaxis shellfish derived Allergy (Verified 09/23/19 07:13) Anaphylaxis adhesive Adverse Reaction (Mild, Verified 09/23/19 07:13) BLISTERS All Cillins Allergy (Severe, Uncoded 09/23/19 07:13) Anaphylaxis Home Medications: Ambulatory Orders Medication Instructions Recorded Gabapentin 600 mg PO TID 07/10/18 hydrOXYzine pamoate capsule 50 mg PO TID PRN 07/10/18 [Vistaril pamoate capsule] traZODone [Desyrel] 150 mg PO QHS 07/10/18 carbamazepine 200 mg tablet 200 mg PO DAILY 08/15/18 topiramate 200 mg tablet 200 mg PO QHS tab 08/15/18 tramadol 50 mg tablet 50 mg PO TID PRN 08/15/18 cyclobenzaprine 10 mg tablet 10 mg PO BID PRN tab 01/23/19 docusate sodium 100 mg capsule 100 mg PO DAILY PRN #90 cap 02/21/19 loratadine 10 mg tablet 10 mg PO DAILY PRN #20 tab 02/21/19 duloxetine 30 mg capsule,delayed 90 mg PO QHS 06/09/19 release Carbamazepine [Tegretol] 400 mg PO QHS 06/10/19 Gly/Dimeth/Petrolat,Wht/Water 1 applic TOPICAL BID 06/10/19 [Cetaphil Moisturizing Cream] Levetiracetam 500 mg PO BID 06/10/19 Methenam/Sod Phos/Mblue/Hyoscy 1 ea PO BID 06/10/19 [Urogesic-Blue Tablet] Simvastatin 20 mg PO QHS 06/10/19 aripiprazole 20 mg tablet 20 mg PO DAILY #90 tab 07/23/19 Wheel Chair #1 ea 08/08/19 epinephrine 0.3 mg/0.3 mL 0.3 mg IM Q5-15M PRN #2 ea 08/11/19 injection, auto-injector montelukast 10 mg tablet 10 mg PO QHS #90 tab 08/11/19 dicyclomine 10 mg capsule 10 mg PO BID #90 cap 08/12/19 omeprazole 40 mg capsule,delayed 40 mg PO DAILY #60 cap 09/08/19 release promethazine 25 mg tablet See Rx Instructions .ROUTE 09/08/19 .COMPLEX #30 tab Prazosin HCl [Minipress] 5 mg PO QHS 09/17/19 Surgical History: Surgical History (Last Reviewed 09/23/19 @ 08:[address] Kim Riggs MD) History of appendectomy Z90.49 History of carpal tunnel surgery of right wrist Z98.890 History of hysterectomy Z90.710 History of orthopedic surgery Z98.890 Both feet History of spinal surgery Z98.890 x2 Hx of repair of right rotator cuff Z98.890 Surgical History: - - back Smoking Status: Current every day smoker Tobacco Use: Cigarettes Review of Systems Constitutional: Denies: Anorexia, Chills, Fever Eyes: Denies: Vision Change HEENT: Denies: Difficulty Swallowing Cardiovascular: Denies: Chest Pain, Chest Pressure Respiratory: Denies: Cough, Shortness of Breath Gastrointestinal: Denies: Abdominal Pain, Nausea, Vomiting Genitourinary: Reports: Frequency, Incontinence, Urgency Gynecological: Denies: Breast symptoms Musculoskeletal: Denies: Muscle pain Skin: Denies: Wounds Neurological: Denies: Difficulty swallowing Psychiatric: Reports: Anxiety VTE Information - Inpt Only VTE Present on Admission: No VTE Mechan Device Prophylaxis: None VTE Pharm Prophylaxis ordered?: No Reason prophylaxis not ordered:: Treatment Not Indicated - Physical Exam Vitals/I&O's: Vital Signs Temp Pulse Resp BP Pulse Ox 98 F 82 14 103/47 L 98 09/23/19 07:14 09/23/19 07:14 09/23/19 07:14 09/23/19 07:14 09/23/19 07:14 Oxygen Delivery Method Room Air Weight: 86.4 kg Body Mass Index (BMI) 29.8 General: Alert, Oriented x3, No apparent distress HEENT: Atraumatic, Normocephalic Oral: Moist Mucosa Neck: Supple, Trachea Midline Lungs: Normal air movement Cardiovascular: Regular rate, Regular Rhythm Abdomen: Soft, Non Tender, Non-Distended Skin: No rashes Musculoskeletal: No Muscle Wasting Neurological: Cranial nerves II-XII grossly intact, Neuro grossly intact Psych/Mental Status: Normal Affect, Appropriate, Alert and oriented to time, place, person, mood and affect Laboratory Results 09/22/19 11:30: COVID-19 ([facility]YN) Negative Current Medications Lactated Ringer's () 1,000 mls @ 100 mls/hr IV .Q10H LUKAS Last Admin: 09/23/19 07:32 Dose: 100 mls/hr Documented by: Assessment/Plan All Active Problems (Last Reviewed 01/10/19 @ 09:41 by Melani Camara) Urinary urgency (Acute) Urge incontinence (Acute) Urinary frequency (Acute) Cancer (Resolved) Ulcer (Acute) Lipoma (Resolved) Kidney stones (Resolved) Hives (Resolved) Proceed with InterStim pocket revision and battery change. Procedure Criteria Procedure Type: Elective Procedure Essential: Yes Criteria Statement: On 06/24/2019 the [facility] of Health ([facility]) Public Order signed by [facility] Director Nimo Goetz M.D., regarding the Management of Non-Essential Surgeries and Procedures for the purpose of preserving Personal Protective Equipment (PPE) and critical hospital capacity and resources within [place] went into effect as of 06/25/2019 at 5:00PM. According to the [facility] Public Order: This action will remain in full force and effect until the State of Emergency declared by the Governor no longer exists or the Director of the [facility] rescinds or modifies this Order. This [facility] order stated all non-essential or elective surgeries and procedures that utilize PPE should be delayed unless there is undue risk to the current or future health of a patient. After reviewing the aforementioned [facility] Public Order and the patient's clinical case, I have determined that the scheduled procedure meets the criteria to go forward. Risk to Patient if Procedure Delayed: Presence of severe symptoms causing an inability to perform ADL's - Difficulty functioning secondary to the severity of her urgency, frequency COVID Risk Discussion: The surgeon/proceduralist and patient have discussed in detail the risk of exposure to and/or potential harm posed by the COVID-19 virus with having a surgery/procedure at this time versus the risk of delaying the surgery/procedure. It is not possible to know either the risk of delaying the surgery or procedure or chance of getting an infection with perfect accuracy, but a joint decision was made between the patient and the surgeon/proceduralist to proceed at this time with the scheduled surgery/procedure as indicated on the consent form.
--- NOTE | 2019-09-23 08:28 | OP.PCM_ITS ---
Problem List (1) Urinary urgency Status: Acute (2) Urge incontinence Status: Acute (3) Urinary frequency Status: Acute Report of Operation Date of Procedure: 09/23/19 Pre-Operative Diagnosis: Urinary urgency, urinary frequency and incontinence, pain at IPG site Post-Operative Diagnosis: Same Surgery/Procedure Performed:: InterStim pocket revision Type of Anesthesia:: Local MAC Estimated Blood Loss (mL): 3cc Description of Procedure: The patient is a 44-year-old female with a successful InterStim insertion for treatment of her urgency and frequency with incontinence. She subsequently fell on the unit and it is causing her pain at the site. She now presents for pocket revision. Risks benefits and alternatives were discussed including that of COVID-19 and the patient agreed to proceed. The patient was taken to the operating room and placed on the operating room table. Anesthesia monitored the head, neck, airway, IV access and vital signs throughout the case. Once anesthesia was appropriate ministered the patient was prepped and draped in usual sterile fashion. The IPG incision was infiltrated with lidocaine and was opened with a knife. Care was taken to avoid injury to the InterStim lead. The pocket was opened. There is no evidence of infection. The IPG was brought into the field. The pocket was deepened, and shifted laterally. Hemostasis was achieved with cautery. TThe battery was inserted into the revised pocket site. It was tested for impedances and found to be appropriate. The old pocket medially was closed with 4-0 PDS. The new pocket site was closed in 2 layers first 3-0 interrupted Vicryl followed by 4-0 subc uticular suturing, Steri-Strips and a gauze bandage. There were no complications during the procedure. The patient was awakened and taken the recovery room in good condition. Grafts/Implants Used: InterStim IPG - Complications None - Admit VTE Documentation VTE Present on Admission: Yes VTE Mechan Device Prophylaxis: SCD's VTE Pharm Prophylaxis ordered?: No Reason prophylaxis not ordered:: Treatment Not Indicated
--- NOTE | 2019-09-23 08:37 | DCINST_ITS ---
Discharge Diet: No Restrictions Discharge Activity: - - May Shower on May resume sexual activity in: 2 weeks Call your doctor if your incision/area has: Continuous Slow Oozing, Sudden Increased Bleeding, Increased Pain/ Swelling, Increased Redness, Foul Smelling Discharge, Swelling at the incision site Call your doctor if you observe: Fever of 101 or Higher, Inability to urinate Allergies/Adverse Reactions: Allergies venom-honey bee Allergy (Severe, Verified 09/23/19 07:13) severe venom-wasp Allergy (Severe, Verified 09/23/19 07:13) severe erythromycin base Allergy (Verified 09/23/19 07:13) Anaphylaxis iodine Allergy (Verified 09/23/19 07:13) Anaphylaxis latex Allergy (Verified 09/23/19 07:13) Rash metronidazole [From Flagyl] Allergy (Verified 09/23/19 07:13) Anaphylaxis naproxen [From Naprosyn] Allergy (Verified 09/23/19 07:13) Anaphylaxis Penicillins Allergy (Verified 09/23/19 07:13) Anaphylaxis shellfish derived Allergy (Verified 09/23/19 07:13) Anaphylaxis adhesive Adverse Reaction (Mild, Verified 09/23/19 07:13) BLISTERS All Cillins Allergy (Severe, Uncoded 09/23/19 07:13) Anaphylaxis Medications to take at Discharge Gabapentin 600 mg PO TID 07/10/18 hydrOXYzine pamoate capsule [Vistaril pamoate capsule] 50 mg PO TID PRN 07/10/18 traZODone [Desyrel] 150 mg PO QHS 07/10/18 carbamazepine 200 mg tablet 200 mg PO DAILY 08/15/18 topiramate 200 mg tablet 200 mg PO QHS tab 08/15/18 tramadol 50 mg tablet 50 mg PO TID PRN 08/15/18 cyclobenzaprine 10 mg tablet 10 mg PO BID PRN tab 01/23/19 docusate sodium 100 mg capsule 100 mg PO DAILY PRN #90 cap 02/21/19 loratadine 10 mg tablet 10 mg PO DAILY PRN #20 tab 02/21/19 duloxetine 30 mg capsule,delayed release 90 mg PO QHS 06/09/19 Carbamazepine [Tegretol] 400 mg PO QHS 06/10/19 Gly/Dimeth/Petrolat,Wht/Water [Cetaphil Moisturizing Cream] 1 applic TOPICAL BID 06/10/19 Levetiracetam 500 mg PO BID 06/10/19 Methenam/Sod Phos/Mblue/Hyoscy [Urogesic-Blue Tablet] 1 ea PO BID 06/10/19 Simvastatin 20 mg PO QHS 06/10/19 aripiprazole 20 mg tablet 20 mg PO DAILY #90 tab 07/23/19 Wheel Chair #1 ea 08/08/19 epinephrine 0.3 mg/0.3 mL injection, auto-injector 0.3 mg IM Q5-15M PRN #2 ea 08/11/19 montelukast 10 mg tablet 10 mg PO QHS #90 tab 08/11/19 dicyclomine 10 mg capsule 10 mg PO BID #90 cap 08/12/19 omeprazole 40 mg capsule,delayed release 40 mg PO DAILY #60 cap 09/08/19 promethazine 25 mg tablet See Rx Instructions .ROUTE .COMPLEX #30 tab 09/08/19 Prazosin HCl [Minipress] 5 mg PO QHS 09/17/19 Hydrocodone Bitart/Apap 5-325 [Wagoner 5MG-325MG] 2 tablet PO Q8H PRN PRN 7 Days #10 tablet 09/23/19 Hydrocodone Bitart/Apap 5-325 [Wagoner 5MG-325MG] 2 tablet PO Q8H PRN PRN 7 Days #10 tablet 09/23/19 Smz/Tmp Ds [Bactrim Ds] 1 tab PO BID 3 Days #6 tab 09/23/19 Smz/Tmp Ds [Bactrim Ds] 1 tablet PO BID 3 Days #6 tablet 09/23/19 The following prescriptions were given: Smz/Tmp Ds [Bactrim Ds] 1 tab PO BID 3 Days #6 tab Transmission Status: Pending to [facility] [id number] Smz/Tmp Ds [Bactrim Ds] 1 tablet PO BID 3 Days #6 tablet Hydrocodone Bitart/Apap 5-325 [Wagoner 5MG-325MG] 2 tablet PO Q8H PRN PRN 7 Days #10 tablet PRN Reason: Pain Transmission Status: Sent to [facility] [id number] Hydrocodone Bitart/Apap 5-325 [Wagoner 5MG-325MG] 2 tablet PO Q8H PRN PRN 7 Days #10 tablet PRN Reason: Pain Primary Care Physician: Gayle Munoz MD [Primary Care Provider] - Test Results: Test results from this visit will be discussed in further detail at your follow- up appointment, if applicable. Please Follow Up With: Kim Riggs MD When: call for appt to be seen in 2 weeks Proposed Discharge Date: 09/23/19
== END 2019-09-23 10:42 | disposition home or self-care (01) ==
LOC: SDC 06:34 → AC 06:35
PROVIDERS: Anesthesiology; PCP Internal Medicine; Referring Provider Urology; Visit Provider Urology
PROC: (CPT 64590; principal; 2019-09-23 08:15)
DX: R35.0 Frequency of micturition (principal); N39.41 Urge incontinence; K21.9 Gastro-esophageal reflux disease without esophagitis; F41.9 Anxiety disorder, unspecified; F32.9 Major depressive disorder, single episode, unspecified; M19.90 Unspecified osteoarthritis, unspecified site; F17.210 Nicotine dependence, cigarettes, uncomplicated; Z11.59 Encounter for screening for other viral diseases; Z86.73 Personal history of transient ischemic attack (TIA), and cerebral infarction without residual deficits; Z79.899 Other long term (current) drug therapy
CPT/HCPCS: 00400; 64590; 87635; G2023; J7120; U0003

== ENCOUNTER 2019-11-04 14:11 | Emergency (ER) | payer MEDICAID, SELFPAY ==
[2019-10-28 13:10] VITALS: BMI 29.8
[2019-11-04 14:13] VITALS: BP 125/83; PULSE 98; RESP 18; TEMP 36.3; O2SAT 93; BMI 31.3
--- NOTE | 2019-11-04 14:32 | CT_ITS ---
STUDY: CT BRAIN WITHOUT CONTRAST REASON FOR EXAM: Female, 44 years old. FELL AND HIT HEAD 2 DAYS AGO,LOC,DIZZINESS RADIATION DOSAGE (If Supplied By Facility): CTDIvol = ( 44.99 ) mGy, DLP = ( 745.49 ) mGycm TECHNIQUE: Transaxial CT imaging of the brain was performed without administration of intravenous contrast material. Individualized dose optimization techniques were used for this CT. COMPARISON: Comparison is made with prior study dated 01-09-19. FINDINGS: Normal soft tissue structures. Normal calvarium. Normal size ventricles and extra-axial spaces for the patient''s age. Normal white matter tracts of the cerebral hemispheres. Normal basal ganglia and thalami. Normal brainstem. Normal cerebellum. There is no intracranial hemorrhage. There are no findings of an acute ischemic infarction. Normal visualized paranasal sinuses. CT/Brain/Head without Contrast IMPRESSION: Normal unenhanced CT scan of the brain. Electronically Signed: Amado Bernardo, at 15:14 EDT , Service support ,
--- NOTE | 2019-11-04 14:34 | ED.DCSUM_ITS ---
History of Present Illness Chief Complaint: Head Injury Informant: Patient Onset: Days Mechanism/Context: Blunt Injury Quality of Pain: Dull, Aching Location: Global headache Current Severity: Severe Maximum Severity: Severe Worsened by: Light Relieved by: Nothing Associated Symptoms: Loss of consciousness. Negative for: Parasthesias, Weakness, Loss of function, Inability to ambulate Length of loss of consciousness: Unknown Narrative: Patient is a 44-year-old woman who has most medical problems. She has used a wheelchair since April 10 navig. She has neurologic issues that are worse left lower extremity compared to the right. She states she was at outside facility. She fell striking her head. She had loss conscious. She is vomited 5 times since. She complains of blurred vision. She denies trouble with speech or swallowing. Denies neck pain. She denies any new paresthesia, anesthesia or motor weakness. She denies cardiac or respiratory symptoms. She denies black or maroon stool. She has a bladder stimulator because of incomplete emptying of her bladder. This apparently is related to her neurologic condition. She is not on an anticoagulant. Tetanus Immunization: 5-10 years Prior similar symptoms: No Recent Illness/Hospitalization: No - Past Medical History (1) Back problem Status: Chronic (2) Lamar's palsy Status: Chronic (3) Carpal tunnel syndrome Status: Chronic (4) Depression with anxiety Status: Chronic (5) Gastroesophageal reflux disease Status: Chronic (6) Hx of emotional problems Status: Chronic (7) Irritable bowel syndrome Status: Chronic (8) Migraines Status: Chronic (9) Neuropathy Status: Chronic (10) Osteoarthritis Status: Chronic (11) Seizures Status: Chronic (12) Stroke Status: Chronic Comment: x3, TIA's (13) Kidney stones Status: Resolved Past Medical History - Allergies and Home Meds Allergies/Adverse Reactions: Allergies venom-honey bee Allergy (Severe, Verified 11/04/19 14:13) severe venom-wasp Allergy (Severe, Verified 11/04/19 14:13) severe erythromycin base Allergy (Verified 11/04/19 14:13) Anaphylaxis iodine Allergy (Verified 11/04/19 14:13) Anaphylaxis latex Allergy (Verified 11/04/19 14:13) Rash metronidazole [From Flagyl] Allergy (Verified 11/04/19 14:13) Anaphylaxis naproxen [From Naprosyn] Allergy (Verified 11/04/19 14:13) Anaphylaxis Penicillins Allergy (Verified 11/04/19 14:13) Anaphylaxis shellfish derived Allergy (Verified 11/04/19 14:13) Anaphylaxis adhesive Adverse Reaction (Mild, Verified 11/04/19 14:13) BLISTERS All Cillins Allergy (Severe, Uncoded 11/04/19 14:13) Anaphylaxis Primary Care Physician: Gayle Munoz MD [Primary Care Provider] - Prior records reviewed: Yes Surgical History: - - back Lives: Alone Smoking Status: Current every day smoker Alcohol: Rare Drugs: None Review of Systems General: Denies: Chills, Fever, Malaise Eyes: Reports: Blurred Vision - bilaterally. Denies: Visual changes - bilaterally ENT: Denies: Bilateral ear pain, Rhinorrhea, Sore throat Cardiovascular: Denies: Chest pain, Palpitations Respiratory: Denies: Dyspnea, Cough, Dyspnea on exertion Gastrointestinal: Denies: Abdominal pain, Nausea, Vomiting, Diarrhea, Melena, Hematochezia Genitourinary: Denies: Dysuria, Hematuria, Frequency Musculoskeletal: Reports: Myalgias, Back pain. Denies: Arthralgias, Neck pain, Swelling, Extremity Pain, -, - Skin: Denies: Rash, Wounds Neurological: Reports: Headache. Denies: Weakness, Parasthesia, Numbness, -, - Psych: Reports: Depression, Anxiety Endocrine: Denies: Polyuria, Polydipsia Hematologic: Denies: Easy bruising, Easy bleeding Physical Exam Vital Signs/Narrative: Vital Signs Temp Pulse Resp BP Pulse Ox 11/04/19 14:13 97.3 F L 98 18 125/83 H 93 Inital Vital Signs reviewed: Yes General: Well nourished, Well developed Head: Normocephalic, Atraumatic, - - There is no clinical findings of basilar skull fracture. Eyes: Perrl, EOMI, - - There is no subconjunctival hemorrhage.. Negative for: Pale conjunctiva, Scleral icterus ENT: TM's clear, No hemotympanum or drainage, No trauma. Negative for: Hemotympanum, Otorrhea, Nasal trauma, Nasal septal hematoma Neck: Nontender, Full ROM. Negative for: Spinal Tenderness, Paraspinal Tenderness Cardiovascular: Regular rate, Regular rhythm, No murmurs, Normal S1, Normal S2 Respiratory: No distress, CTA bilaterally, Chest nontender Abdomen: Soft, Nontender, Nondistended, Normal bowel sounds Back: Nontender Skin: Normal color, No rash Neurological: Alert, Oriented x3, Cranial nerves II-XII grossly intact, - - Patella and ankle reflex are diminished on the left compared to the upper extremities and right lower extremity. Sensation is altered left lower extremity. Muscle strength is less left lower extremity. These are all old symptoms/findings.. Negative for: Normal Strength, Normal Sensation, Normal DTR, Normal Gait Psychological: Depressed - Glascow Coma Scale Eye Opening: Spontaneous Motor: Obeys Commands Verbal: Oriented Coma Scale Total: 15 Diagnostic/Tx/Re-eval Impressions Brain CT 11/04/19 14:32 IMPRESSION: Normal unenhanced CT scan of the brain. Electronically Signed: Amado Bernardo, at 15:14 EDT , Service support , 11/04/19 14:32 Brain/Head without Contrast [CT] Stat CT of the head was reviewed by me. No obvious abnormality noted. We will treat for postconcussive syndrome. Patient been informed she may have symptoms for several weeks. She was informed that 95% of individuals with concussion have resolution in 4 to 6 weeks. She was prescribed Zofran ODT for nausea and vomiting. She was instructed to take NSAIDs for her headache. - Medical Decision Making With history of loss of conscious, nausea and vomiting persistent headache will obtain CT of the head to rule out subdural, epidural, traumatic subarachnoid hemorrhage or intraparenchymal contusion. If no evidence of bleed patient has a postconcussive syndrome. ED Disposition - Plan for ED Patient: Disposition: Home or Assisted Living Diagnosis: Concussion without loss of consciousness, initial encounter Instructions: ED Concussion Prescriptions: Ondansetron [Zofran Odt] 4 mg PO Q8H PRN PRN #10 tab PRN Reason: Nausea Transmission Status: Pending to [facility] [place] - [id number] Referrals: Gayle Munoz MD [Primary Care Provider] - 10-14 Days if not better Additional Instructions: Since you are allergic to Naprosyn recommend Tylenol for your headache.
[2019-11-04] MEDS: Morphine 4 MG/ML Syringe IV (14:57)
[2019-11-04] MEDS: Ondansetron 4 MG/2 ML Vial IV (14:57)
== END 2019-11-04 16:11 | disposition home or self-care (01) ==
PROVIDERS: Emergency Provider Emergency Medicine; PCP Internal Medicine
DX: S06.0X0A Concussion without loss of consciousness, initial encounter (principal); F17.200 Nicotine dependence, unspecified, uncomplicated; W19.XXXA Unspecified fall, initial encounter
CPT/HCPCS: 70450; 96374; 96375; 99283; A4216; J2405

== ENCOUNTER → 2019-11-14 09:02 | Outpatient (CLI) | payer MEDICAID, SELFPAY ==
[2019-11-13 09:59] VITALS: BMI 31.3
[2019-11-14 10:19] LABS: Anion Gap 4 (5-15); BUN 16 mg/dL (7-18); BUN/Creat Ratio 22.7 RATIO (10-20); Calcium,Total 8.3 mg/dL (8.5-10.1); Chloride 111 mmol/L (98-107); EST Glomerular Filtration Rate 96 mL/min (>60); Est Glom Filt Rate - Afr Amer 116 mL/min (>60); Glucose 94 mg/dL (74-106); Potassium 3.6 mmol/L (3.5-5.1); Sodium Level 143 mmol/L (136-145)
== END ==
PROVIDERS: PCP Internal Medicine; Referring Provider Urology; Visit Provider Urology
DX: R35.1 Nocturia (principal)
CPT/HCPCS: 36415; 80048

== ENCOUNTER → 2019-11-25 08:20 | Outpatient (CLI) | payer MEDICAID, SELFPAY ==
[2019-11-21 13:18] VITALS: BMI 31.3
[2019-11-25 10:47] LABS: Anion Gap 3 (5-15); BUN 11 mg/dL (7-18); BUN/Creat Ratio 16.2 RATIO (10-20); Calcium,Total 8.4 mg/dL (8.5-10.1); Chloride 112 mmol/L (98-107); Creatinine, Serum 0.68 mg/dL (0.55-1.02); EST Glomerular Filtration Rate 100 mL/min (>60); Est Glom Filt Rate - Afr Amer 121 mL/min (>60); Glucose 84 mg/dL (74-106); Potassium 3.7 mmol/L (3.5-5.1); Sodium Level 143 mmol/L (136-145)
== END ==
PROVIDERS: PCP Internal Medicine; Referring Provider Urology; Visit Provider Urology
DX: R35.1 Nocturia (principal)
CPT/HCPCS: 36415; 80048

== ENCOUNTER 2019-12-01 15:50 | Emergency (ER) | payer MEDICAID, SELFPAY ==
[2019-11-21 13:18] VITALS: BMI 31.3
[2019-12-01 15:51] VITALS: BP 117/69; PULSE 94; RESP 18; TEMP 35.9; O2SAT 96; BMI 32.2
--- NOTE | 2019-12-01 16:06 | CT_ITS ---
STUDY: CT BRAIN WITHOUT CONTRAST REASON FOR EXAM: Female, 44 years old. FELL 2 WEEKS AGO. Headache. Hx of TIA x 2 and uterine cancer RADIATION DOSAGE (If Supplied By Facility): CTDIvol = ( 44.99 ) mGy, DLP = ( 812.98 ) mGycm TECHNIQUE: Transaxial CT imaging of the brain was performed without administration of intravenous contrast material. Individualized dose optimization techniques were used for this CT. COMPARISON: 11/04/2019 FINDINGS: Normal soft tissue structures. Normal calvarium. Normal size ventricles and extra-axial spaces for the patient''s age. Normal white matter tracts of the cerebral hemispheres. Normal basal ganglia and thalami. Normal brainstem. Normal cerebellum. There is no intracranial hemorrhage. There are no findings of an acute ischemic infarction. Normal visualized paranasal sinuses. CT/Brain/Head without Contrast IMPRESSION: Normal unenhanced CT scan of the brain. Electronically Signed: Alexander Myers MD at 16:54 EDT , Service support ,
--- NOTE | 2019-12-01 16:12 | ED.DCSUM_ITS ---
- ER Visit Summary Date of Service: 12/01/19 Chief Complaint: Headache History of Present Illness: The patient is a 44 F who sustained a concussion almost a month ago after she fell. She has had persistent headache, mainly in the occipital region. She also feels that she is having parietal pain similar to prior migraines. No second impact injury. She has trouble with her speech and memory but nothing acutely. No weakness, numbness, facial droop, or other new symptoms. No blood thinner use. Physical Examination: Afebrile and vital signs unremarkable. Head and neck atraumatic. HEENT exam unremarkable. Cranial nerves grossly intact. Heart regular. Lungs clear. Good strength and sensation. Test Results: CT brain pending. Emergency Department Course and Treatment: Patient was advised by her PCP to present to the ED for CT. Given her trauma and persistent symptoms, will check a brain CT. She was also treated with Compazine and Benadryl while awaiting results.. CT was negative. Patient is feeling better on reassessment. Will be referred to neurology for outpatient management of a presumed concussion and headaches. Treatment Plan: As above Disposition: Discharge, return for new or worsening issues. Impression: Concussion, headache This note was generated with [employer] dictation software. It may contain incorrect words, spelling, and punctuation that were not noted in review of the chart prior to signing ED Disposition - Plan for ED Patient: Referrals: Gayle Munoz MD [Primary Care Provider] -
[2019-12-01] MEDS: proCHLORPERazine 10 MG/2 ML Vial IV (16:30)
[2019-12-01] MEDS: DiphenhydrAMINE 50 MG/ML Syringe 25 MG IV (16:31)
--- NOTE | 2019-12-01 17:18 | ED.DEP ---
ED Disposition - Plan for ED Patient: Instructions: ED Concussion Referrals: Lucio Bailey MD [STAFF PHYSICIAN] -
[2019-12-01 17:35] VITALS: BP 104/65; PULSE 84; RESP 17
== END 2019-12-01 17:36 | disposition home or self-care (01) ==
LOC: ED 16:13
PROVIDERS: Emergency Provider Emergency Medicine; PCP Internal Medicine
DX: S06.0X9A Concussion with loss of consciousness of unspecified duration, initial encounter (principal); R51 Headache; F17.200 Nicotine dependence, unspecified, uncomplicated; X58.XXXA Exposure to other specified factors, initial encounter
CPT/HCPCS: 70450; 96374; 96375; 99283; A4216

== ENCOUNTER → 2019-12-09 06:50 | Outpatient (CLI) | payer MEDICAID, SELFPAY ==
[2019-11-21 13:18] VITALS: BMI 31.3
[2019-12-08 13:12] VITALS: BMI 32.2
== END ==
PROVIDERS: Anesthesiology; PCP Internal Medicine; Visit Provider Urology
DX: Z11.59 Encounter for screening for other viral diseases (principal)
CPT/HCPCS: 87635; U0003

== ENCOUNTER 2019-12-12 09:00 | Outpatient (RCR) | payer MEDICAID, SELFPAY ==
[2019-08-22 08:00] VITALS: BMI 28.3
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
--- NOTE | 2019-09-24 12:55 | HP.PTEVAL ---
Patient's Visit Information CHARLOTTE VASQUEZ is a 44 year old F referred to Physical Therapy by Dr. Gayle Munoz MD with a diagnosis of LE weakness. Date of Evaluation: 09/04/19 Physical Therapist: Sylvain Phillip, PT, ATC - Visit Plan Frequency: 1x/Week Duration: 1 Week Plan: Evaluated pt for use of WC this date. A WC is medically necessary for this patient in order for her to have any mobility I and to experience a better quality of life - Subjective Pt reports she has been in a wheelchair since April. Pt reports she has a chronic Hx of falling. Pt reports in April she fell and really injured her R shoulder and L knee. Pt reports her L LE constantly gives out on her resulting in her falls. Pt reports she has attempted using a walker in the past, but notes even with the walker she tends to fall down. Pt reports she uses her WC in the house and will all mobility. Pt reports her WC is falling apart, and she really needs a new one. Pt notes her L LE is basically numb from having herniated discs and degenerative discs. Pt notes she has to crawl if she doesnt have her WC. 8/10 pain in general between R shoulder, L knee, and LBP - Pain R shoulder, LB, L knee Pain Intensity (Out of 10): 8 Pain Intensity Range: 10 - Objective Neuro: R LE and B UE sensation is WNL to light touch. L LE is numb at this time. B UE bicepital and LE patellar reflex is 1/3 with the exception to L patellar reflex= 0/3. MMT: R LE grossly 5/5 throughout. L LE is 2-/5. L shoulder is 5/5 throughout while R shoulder is 3+/5 and painful with all testing. AROM: R shoulder flex= 130, abd= 105, ER= 65. L shoulder flex= 165, abd= 165, ER= 65. trunk control: Unable to sit up without UE supports secondary to LBP. sit to stand: MaxA x 1. Ambulation: Nonambulatory - Goals Goal 1:: N/A - Rehabilitation Potential Physical Therapy Diagnosis: Pt is unsafe with a walker or appriately fitted walker or cane at this time secondary to risk of falling and body injury. Pt is unable to self propel an optimally configured manual wheelchair at this time secondary to R shoulder pain, weakness, and limited ROM. Pt lacks the core strength to operate a POV at this time. A power WC would provide this pt with the ability to perform IADL's and ADL's around the house including cleaning, laundry, cooking, and caring for her children that a manual WC would not provide. pt is physically and mentally able to maneuvre a power chair safely at home. - Anticipated Interventions Thank you for the opportunity to evaluate your patient. For Medicare and Medicare HMO plans, please review the plan of care and approve it. It will need to be FAXED BACK to us at [phone] for Medicare purposes. For Medicare only, by signing this I certify the plan of care. Please let me know if there are questions or concerns regarding this plan of care. Physician Signature: Date:
--- NOTE | 2019-12-12 09:24 | HP.PTDCSUM ---
It has been my pleasure to treat CHARLOTTE VASQUEZ referred by Dr. Gayle Munoz MD, with the diagnosis of LE weakness for a total of 1 visit(s). Discharge Date: Please see the following information for a summary of their discharge status. R shoulder, LB, L knee Pain Intensity (Out of 10): 8 Goal 1:: N/A Plan: Evaluated pt for use of WC this date. A WC is medically necessary for this patient in order for her to have any mobility I and to experience a better quality of life If there are questions or concerns regarding this patient's physical therapy, please feel free to call me at [phone]. Thank you for the referral of this patient. Sincerely, Sylvain Phillip, PT, ATC
== END 2019-12-12 19:00 | disposition home or self-care (01) ==
LOC: PT 09:00
PROVIDERS: PCP Internal Medicine; Referring Provider Internal Medicine; Visit Provider Internal Medicine
DX: M75.41 Impingement syndrome of right shoulder (principal); M25.562 Pain in left knee
CPT/HCPCS: 97113; 97161; 97164

== ENCOUNTER 2019-12-16 05:44 | Day surgery (SDC) | payer MEDICAID, SELFPAY ==
--- NOTE | 2019-11-21 01:55 | HP_ITS ---
Intake Vital Signs 11/21/19 BMI 31.3 Intake Visit Reasons: HERNIA F/U,DISC RESULTS Chief Complaint: hernia? Ramp Jockey Required: No Is patient in pain?: Yes Allergies venom-honey bee Allergy (Severe, Verified 11/21/19 13:17) severe venom-wasp Allergy (Severe, Verified 11/21/19 13:17) severe erythromycin base Allergy (Verified 11/21/19 13:17) Anaphylaxis iodine Allergy (Verified 11/21/19 13:17) Anaphylaxis latex Allergy (Verified 11/21/19 13:17) Rash metronidazole [From Flagyl] Allergy (Verified 11/21/19 13:17) Anaphylaxis naproxen [From Naprosyn] Allergy (Verified 11/21/19 13:17) Anaphylaxis Penicillins Allergy (Verified 11/21/19 13:17) Anaphylaxis shellfish derived Allergy (Verified 11/21/19 13:17) Anaphylaxis adhesive Adverse Reaction (Mild, Verified 11/21/19 13:17) BLISTERS All Cillins Allergy (Severe, Uncoded 11/21/19 13:17) Anaphylaxis Medications Gabapentin 600 mg PO TID 07/10/18 [History Confirmed 11/21/19] hydrOXYzine pamoate capsule [Vistaril pamoate capsule] 50 mg PO TID PRN 07/10/18 [History Confirmed 11/21/19] carbamazepine 200 mg tablet 200 mg PO DAILY 08/15/18 [History Confirmed 11/21/19] topiramate 200 mg tablet 200 mg PO QHS tab 08/15/18 [History Confirmed 11/21/19] tramadol 50 mg tablet 50 mg PO TID PRN 08/15/18 [History Confirmed 11/21/19] cyclobenzaprine 10 mg tablet 10 mg PO BID PRN tab 01/23/19 [History Confirmed 11/21/19] duloxetine 30 mg capsule,delayed release 90 mg PO QHS 06/09/19 [History Confirmed 11/21/19] Carbamazepine [Tegretol] 400 mg PO QHS 06/10/19 [History Confirmed 11/21/19] Levetiracetam 500 mg PO BID 06/10/19 [History Confirmed 11/21/19] Methenam/Sod Phos/Mblue/Hyoscy [Urogesic-Blue Tablet] 1 ea PO BID 06/10/19 [History Confirmed 11/21/19] Wheel Chair #1 ea 08/08/19 [Rx Confirmed 11/21/19] epinephrine 0.3 mg/0.3 mL injection, auto-injector 0.3 mg IM Q5-15M PRN #2 ea 08/11/19 [Rx Confirmed 11/21/19] montelukast 10 mg tablet 10 mg PO QHS #90 tab 08/11/19 [Rx Confirmed 11/21/19] Prazosin HCl [Minipress] 5 mg PO QHS 09/17/19 [History Confirmed 11/21/19] simvastatin 20 mg tablet 20 mg PO QHS #90 tab 10/07/19 [Rx Confirmed 11/21/19] Shower Chair #1 ea 10/28/19 [Rx Confirmed 11/21/19] aripiprazole 30 mg tablet 30 mg PO DAILY 10/28/19 [History Confirmed 11/21/19] diclofenac sodium 1 % topical gel 4 g TOPICAL BID PRN #100 g 10/28/19 [Rx Confirmed 11/21/19] trazodone 100 mg tablet 300 mg PO QHS tab 10/28/19 [History Confirmed 11/21/19] dicyclomine 10 mg capsule 10 mg PO BID PRN #90 cap 11/03/19 [Rx Confirmed 11/21/19] Ondansetron [Zofran Odt] 4 mg PO Q8H PRN PRN #10 tab 11/04/19 [Rx Confirmed 11/21/19] levocetirizine 5 mg tablet 5 mg PO DAILY PRN #30 tab 11/13/19 [Rx Confirmed 11/21/19] omeprazole 40 mg capsule,delayed release 40 mg PO DAILY #60 cap 11/13/19 [Rx Confirmed 11/21/19] promethazine 25 mg tablet See Rx Instructions .ROUTE .COMPLEX #30 tab 11/13/19 [Rx Confirmed 11/21/19] PFSH Medical History Lamar's palsy (Chronic) Cancer (Resolved) Ulcer (Acute) Lipoma (Resolved) Stroke (Chronic) Seizures (Chronic) Osteoarthritis (Chronic) Neuropathy (Chronic) Kidney stones (Resolved) Irritable bowel syndrome (Chronic) Hives (Resolved) Hearing problem (Chronic) Gastrointestinal problem (Chronic) Hx of emotional problems (Chronic) Carpal tunnel syndrome (Chronic) Back problem (Chronic) Arthritis (Chronic) Seasonal allergies (Chronic) Surgical History History of appendectomy (Acute) History of bladder repair surgery (Acute) History of carpal tunnel surgery of right wrist (Acute) History of hysterectomy (Acute) History of orthopedic surgery (Acute) History of spinal surgery (Acute) Hx of repair of right rotator cuff (Acute) Family History Father Asthma Grandfather No problems noted. Grandmother Asthma Brother Lung cancer Diabetes Hypertension Grandfather Asthma Grandmother Asthma Hypertension Mother Diabetes Aunt Diabetes Son Seizures Asthma Social History (Updated 11/21/19 @ 13:[address] Damaso Mcgarry MD) Smoking Status: Light Smoker (<10/day) alcohol intake: never substance use type: does not use what type of physical activity do you participate in: none HPI HPI HPI: CHARLOTTE VASQUEZ, is a 44 F who presents to the office today for HPI HPI Surgical H&P: Yes HPI: CHARLOTTE VASQUEZ, is a 44 F who presents to the office today for Umbilical hernia. The patient is having a lot of pain in her umbilical region. ROS General General: No weight change or fatigue Cardio Cardiovascular: No murmur, pacemaker, heart disease, atrial fibrillation, high blood pressure, heart attack, heart stent, palpitations, shortness of breat with exertion or chest pain Psych Psychiatric: No depression or anxiety Resp Respiratory: No shortness of breath, No sleep apnea, No cough, No COPD, No asthma, No emphysema, No wheezing Gastro Gastrointestinal: Yes abdominal pain, No nausea or vomiting, No diarrhea, No constipation, No blood in stool, No acid reflux, No hemorrhoids, No ulcers, No gallbladder problem, No black,tarry stools Esteban Hematologic: No blood thinners Exam Const General: cooperative Orientation: alert, oriented x3 Resp Effort & Inspection: normal respiratory effort Auscultation: clear to auscultation bilaterally Cardio Rate: regular rate Rhythm: regular rhythm Heart Sounds: no murmurs GI Inspection: non-distended Palpation: soft, tender periumbilically Assessment & Plan Problems 1. Umbilical hernia without obstruction and without gangrene K42.9 Plan I was able to review the patient's outpatient CT scan. The patient does have a 1 cm umbilical hernia. This is likely the cause of her pain and it does contain fat. I discussed umbilical hernia repair with her. I discussed that this since his hernia is so small she would likely not need mesh. I discussed the risks of the procedure including not limited to bleeding, infection, injury to underlying organs. Patient understands the risks and would like to proceed with umbilical hernia repair We discussed the current risks associated with COVID-19. While it is understood that there is a community spread of COVID-19, the risk of varun COVID-19 while at [facility] ([facility]) is very low; however, the risk cannot be completely mitigated because of the community spread of the disease. We discussed in detail the risk of exposure to and/or potential harm posed by the COVID-19 virus with having a surgery/procedure at this time versus the risk of delaying the surgery/procedure. It is not possible to know either the risk of delaying the surgery or procedure or chance of getting an infection with perfect accuracy, but a joint decision was made to proceed at this time with the scheduled surgery/procedure as indicated on the consent form. Patient was notified that we will need to comply with any screening or testing [facility] wishes to perform or that surgery may be delayed for any positive results. Damaso Mcgarry MD Pager: [facility] [address] [place] [address], [address] [place] [address] Office: Coding Level of Care Code Off vis,est,level 3 Diagnoses Umbilical hernia without obstruction and without gangrene K42.9 ??Obstruction and gangrene presence: without obstruction or gangrene 11/21/19 1355 <Electronically signed by Damaso anaya MD> Date _ Damaso Mcgarry MD I have re-examined the patient. There are no clinical changes since date of exam.
[2019-11-21 13:18] VITALS: BMI 31.3
[2019-12-08 13:12] VITALS: BMI 32.2
--- NOTE | 2019-12-09 06:29 | EKG12_ITS ---
Test Reason : PRE OP Blood Pressure : / mmHG Vent. Rate : 074 BPM Atrial Rate : 074 BPM P-R Int : 154 ms QRS Dur : 100 ms QT Int : 390 ms P-R-T Axes : 015 061 053 degrees QTc Int : 432 ms Normal sinus rhythm Normal ECG Confirmed by VONDA PLUNKETT, ILANA ([id number]), material expeditor GIUSEPPE GANT ([id number]) on 12/11/2019 11:36:49 AM Referred By: Damaso Mcgarry Confirmed By:ILANA FERRARI MD
[2019-12-09 07:16] LABS: Hematocrit 36.2 % (37-47); Hemoglobin 11.8 g/dL (12.0-15.0); Mean Corp Hgb Conc 32.6 g/dL (32-36); Mean Corpuscular Volume 101.1 fL (81-99); Mean Platelet Vol. 11.4 fl (6.2-12.0); Platelet Count 178 K/mm3 (150-450); RBC Distribution Width CV 12.4 % (11.6-14.6); RBC Distribution Width SD 46.6 fl (35.1-43.9); Red Blood Count 3.58 M/mm3 (4.2-5.4); White Blood Count 7.2 K/mm3 (4.4-11.0)
[2019-12-16] VITALS (9 sets, daily range): BP systolic 95–123; BP diastolic 47–84; PULSE 67–96; RESP 16–18; TEMP 36.6–37.1; O2SAT 92–98; BMI 29.2
[2019-12-16] MEDS: Lactated Ringers 1,000 ML 100 ML IV ×2 (06:39→09:31)
[2019-12-16] MEDS: Ciprofloxacin 400 MG/200 ML BAG 200 MG IV (07:43)
[2019-12-16] MEDS: Bupiv/Epi 0.5% Mpf 30 ML Vial (07:57)
--- NOTE | 2019-12-16 08:24 | PCM.OPRPT ---
Problem List (1) Incisional hernia Status: Acute Qualifiers: Obstruction and gangrene presence: without obstruction or gangrene Qualified Code(s): K43.2 - Incisional hernia without obstruction or gangrene Report of Operation Date of Procedure: 12/16/19 Pre-Operative Diagnosis: Incisional hernia Post-Operative Diagnosis: Same Surgery/Procedure Performed:: Incisional hernia repair Description of Procedure: The patient was brought back to the operating room and general anesthesia was induced. The abdomen was prepped and draped in usual sterile fashion. A curvilinear incision was marked inferior to the umbilicus and injected with local anesthetic. An incision was made. The umbilicus was dissected free from the subcutaneous tissue and the hernia was identified. It was reduced and three 2-0 PDS sutures were used in interrupted fashion to close the defect as it was less than 1 cm no mesh was placed. The area was irrigated and the umbilicus was tacked to the fascia using 3-0 Vicryl. The incision was closed with running 4-0 Monocryl suture as well as Steri-Strips and a bandage. Patient was brought to PACU in stable condition and tolerated the procedure well. - Admit VTE Documentation VTE Mechan Device Prophylaxis: SCD's
--- NOTE | 2019-12-16 08:30 | PCM.DC.HER ---
Discharge Diet: Light diet - advance as tolerated Discharge Activity: Return to Normal Activity, May Not Drive - for 2-3 days or while taking narcotic pain meds., May Shower - with the bandage in place 1-2 days after surgery. Lifting Restrictions: 20 pounds for 2 weeks. Additional Activity Instructions:: Climbing stairs is fine, walking is encouraged. Sitting in bed may be uncomfortable. Sitting up using your lateral muscles (sitting up sideways) is usually more comfortable. Do not drive, work heavy equipment of sign legal documents for 24 hours. Pain medications may cause nausea, you should typically eat light foods as you take your pain medications. Pain medications may also cause constipation. If you have difficulty with this, discuss with your doctor. Call your doctor if your incision/area has: Continuous Slow Oozing, Sudden Increased Bleeding, Increased Pain/ Swelling, Increased Redness, Foul Smelling Discharge Call your doctor if you observe: Fever of 101 or Higher Suture Line Care: Avoid Pulling/Pushing, Avoid Pinching/Bending Change Dressing in (Days):: 3 - Leave steri-strips for 1 week. May protect with a guaze bandaid. Cleanse incision/area with: Keep Dressing Clean & Dry Allergies/Adverse Reactions: Allergies venom-honey bee Allergy (Severe, Verified 12/16/19 06:13) severe venom-wasp Allergy (Severe, Verified 12/16/19 06:13) severe erythromycin base Allergy (Verified 12/16/19 06:13) Anaphylaxis iodine Allergy (Verified 12/16/19 06:13) Anaphylaxis latex Allergy (Verified 12/16/19 06:13) Rash metronidazole [From Flagyl] Allergy (Verified 12/16/19 06:13) Anaphylaxis naproxen [From Naprosyn] Allergy (Verified 12/16/19 06:13) Anaphylaxis Penicillins Allergy (Verified 12/16/19 06:13) Anaphylaxis shellfish derived Allergy (Verified 12/16/19 06:13) Anaphylaxis adhesive Adverse Reaction (Mild, Verified 12/16/19 06:13) BLISTERS All Cillins Allergy (Severe, Uncoded 12/16/19 06:13) Anaphylaxis Medications to take at Discharge Gabapentin 600 mg PO TID 07/10/18 hydrOXYzine pamoate capsule [Vistaril pamoate capsule] 50 mg PO TID PRN 07/10/18 carbamazepine 200 mg tablet 200 mg PO DAILY 08/15/18 topiramate 200 mg tablet 200 mg PO QHS tab 08/15/18 tramadol 50 mg tablet 50 mg PO TID PRN 08/15/18 cyclobenzaprine 10 mg tablet 10 mg PO BID PRN tab 01/23/19 duloxetine 30 mg capsule,delayed release 90 mg PO QHS 06/09/19 Levetiracetam 500 mg PO BID 06/10/19 Methenam/Sod Phos/Mblue/Hyoscy [Urogesic-Blue Tablet] 1 ea PO BID 06/10/19 epinephrine 0.3 mg/0.3 mL injection, auto-injector 0.3 mg IM Q5-15M PRN #2 ea 08/11/19 montelukast 10 mg tablet 10 mg PO QHS #90 tab 08/11/19 Prazosin HCl [Minipress] 5 mg PO QHS 09/17/19 simvastatin 20 mg tablet 20 mg PO QHS #90 tab 10/07/19 aripiprazole 30 mg tablet 30 mg PO DAILY 10/28/19 diclofenac sodium 1 % topical gel 4 g TOPICAL BID PRN #100 g 10/28/19 trazodone 100 mg tablet 300 mg PO QHS tab 10/28/19 dicyclomine 10 mg capsule 10 mg PO BID PRN #90 cap 11/03/19 Ondansetron [Zofran Odt] 4 mg PO Q8H PRN PRN #10 tab 11/04/19 levocetirizine 5 mg tablet 5 mg PO DAILY PRN #30 tab 11/13/19 omeprazole 40 mg capsule,delayed release 40 mg PO DAILY #60 cap 11/13/19 promethazine 25 mg tablet See Rx Instructions .ROUTE .COMPLEX #30 tab 11/13/19 carbamazepine 200 mg tablet 400 mg PO QHS 12/08/19 celecoxib 200 mg capsule 200 mg PO DAILY 12/08/19 desmopressin 0.2 mg tablet 0.2 mg PO ONCE 12/08/19 magnesium oxide 400 mg PO DAILY #60 tab 12/08/19 sumatriptan succinate 50 mg tablet See Rx Instructions PO .COMPLEX #10 tab 12/08/19 Oxycodone HCl/Acetaminophen [Percocet 5-325 mg Tablet] 1 tab PO Q6H PRN 3 Days #15 tablet 12/16/19 The following prescriptions were given: Oxycodone HCl/Acetaminophen [Percocet 5-325 mg Tablet] 1 tab PO Q6H PRN 3 Days #15 tablet PRN Reason: Pain Score 4-10/10 Transmission Status: Sent to [facility] Primary Care Physician: Gayle Munoz MD [Primary Care Provider] - Test Results: Test results from this visit will be discussed in further detail at your follow-up appointment, if applicable. Please Follow Up With: Damaso Mcgarry MD When: Please call to schedule 2 week follow up appointment. [phone]
[2019-12-16] MEDS: oxyCODONE 5 MG Tablet PO (10:08)
[2019-12-16] MEDS: Acetaminophen 325 MG Tablet PO (10:08)
== END 2019-12-16 11:10 | disposition home or self-care (01) ==
LOC: SDC 05:45 → AC 05:45
PROVIDERS: Anesthesiology; PCP Internal Medicine; Referring Provider Surgery; Visit Provider Surgery
PROC: (CPT 49560; principal; 2019-12-16 07:15)
DX: K43.2 Incisional hernia without obstruction or gangrene (principal); G40.909 Epilepsy, unspecified, not intractable, without status epilepticus; K58.9 Irritable bowel syndrome, unspecified; M19.90 Unspecified osteoarthritis, unspecified site; F17.200 Nicotine dependence, unspecified, uncomplicated; I69.354 Hemiplegia and hemiparesis following cerebral infarction affecting left non-dominant side; Z79.899 Other long term (current) drug therapy; K21.9 Gastro-esophageal reflux disease without esophagitis; F41.9 Anxiety disorder, unspecified; F32.9 Major depressive disorder, single episode, unspecified
CPT/HCPCS: 49560; 36415; 85027; 85730; 93005; C9803; J7120; J0744; J2405

== ENCOUNTER 2019-12-26 08:43 | Emergency (ER) | payer MEDICAID, SELFPAY ==
[2019-12-16 06:16] VITALS: BMI 29.2
[2019-12-26 08:44] VITALS: BP 105/67; PULSE 88; RESP 16; TEMP 36.7; O2SAT 100; BMI 31.8
[2019-12-26 09:23] LABS: Absolute Lymphocyte Count 1.82 X10^3/uL (0.83-4.51); Absolute Neutrophil Count 7.3 X10^3/uL (2.0-7.7); Basophil# 0.02 X10^3/uL; Basophil% 0.2 % (0-1); Eosinophil# 0.26 X10^3/uL; Eosinophils% 2.6 % (0-5); Hematocrit 38.5 % (37-47); Hemoglobin 12.9 g/dL (12.0-15.0); Lymphocyte # 1.82 X10^3/ul (4.0); Lymphocyte % 18.5 % (19-41); Mean Corp Hgb Conc 33.5 g/dL (32-36); Mean Corpuscular Hgb 33.2 pg (27.0-32.0); Mean Corpuscular Volume 99.2 fL (81-99); Mean Platelet Vol. 10.6 fl (6.2-12.0); Monocyte# 0.44 X10^3/uL; Monocyte% 4.5 % (0-10); NRBC Flagged by Analyzer 0 % (0-5); Neutrophil # 7.27 X10^3/uL (2.7-7.7); Platelet Count 184 K/mm3 (150-450); RBC Distribution Width CV 12.3 % (11.6-14.6); RBC Distribution Width SD 44.9 fl (35.1-43.9); Red Blood Count 3.88 M/mm3 (4.2-5.4); White Blood Count 9.8 K/mm3 (4.4-11.0)
[2019-12-26] MEDS: Ondansetron 4 MG/2 ML Vial IV (09:33)
[2019-12-26] MEDS: Morphine 4 MG/ML Syringe IV (09:33)
[2019-12-26 09:37] LABS: Anion Gap 6 (5-15); BUN 13 mg/dL (7-18); Calcium,Total 8.6 mg/dL (8.5-10.1); Chloride 108 mmol/L (98-107); Creatinine, Serum 0.72 mg/dL (0.55-1.02); EST Glomerular Filtration Rate 93 mL/min (>60); Est Glom Filt Rate - Afr Amer 113 mL/min (>60); Estimated Creatinine Clearance 97.97 ml/min; Glucose 105 mg/dL (74-106); Potassium 3.7 mmol/L (3.5-5.1); Sodium Level 141 mmol/L (136-145)
[2019-12-26 09:42] VITALS: BP 96/57; PULSE 79; RESP 18; TEMP 36.6; O2SAT 96
--- NOTE | 2019-12-26 09:42 | ED.DCSUM_ITS ---
- ER Visit Summary Date of Service: 12/26/19 Chief Complaint: Wound infection History of Present Illness: The patient is a 44 F who is postop day 10 from her hernia repair laparoscopic by Dr. Mcgarry. Patient was previously on doxycycline for possible surgical site infection. She is having a scant amount of drainage today. She complains of pain to the area. Physical Examination: Afebrile and vital signs unremarkable. There is an umbilical incision which is draining a scant amount of serous sanguinous drainage. She has diffuse tenderness about the area with light palpation. No other abnormal or pertinent findings. Test Results: CBC and BMP were unremarkable. Emergency Department Course and Treatment: Patient treated with pain medicine, nausea medicine, fluids while awaiting results. She was discussed with her surgeon. He believes that the pain is similar to before her surgery and does not believe the hernia was causing her pain. It does not sound like this infection is causing her pain, rather it sounds like a chronic issue. There is no guarding, rebound, peritoneal signs. No signs of sepsis. Patient will be treated for a skin infection with clindamycin. Follow-up with her surgeon as needed. Treatment Plan: As above Disposition: Discharge Impression: Surgical site infection This note was generated with [employer] dictation software. It may contain incorrect words, spelling, and punctuation that were not noted in review of the chart prior to signing ED Disposition - Plan for ED Patient: Referrals: Gayle Munoz MD [Primary Care Provider] -
--- NOTE | 2019-12-26 09:44 | ED.DEP ---
ED Disposition - Plan for ED Patient: Instructions: ED Wound Infection after surgery Prescriptions: Clindamycin HCl [Cleocin] 300 mg PO Q6H #40 cap Prescription Printed Referrals: Damaso Mcgarry MD [STAFF PHYSICIAN] -
[2019-12-26 09:51] VITALS: BP 96/57; PULSE 79; RESP 18; TEMP 36.6; O2SAT 96
== END 2019-12-26 10:13 | disposition home or self-care (01) ==
LOC: ED 09:00
PROVIDERS: Emergency Provider Emergency Medicine; PCP Internal Medicine
DX: T81.41XA Infection following a procedure, superficial incisional surgical site, initial encounter (principal); F17.200 Nicotine dependence, unspecified, uncomplicated
CPT/HCPCS: 80048; 85025; 96374; 96375; 99284; A4216; J2405

== ENCOUNTER 2020-01-01 11:38 | Emergency (ER) | payer MEDICAID, SELFPAY ==
[2019-12-31 11:09] VITALS: BMI 31.8
[2020-01-01 11:39] VITALS: BP 111/76; PULSE 98; RESP 18; TEMP 36.3; O2SAT 97; BMI 31.3
[2020-01-01] MEDS: Morphine 2 MG/ML Syringe IV (12:42)
[2020-01-01 12:44] LABS: Absolute Lymphocyte Count 1.74 X10^3/uL (0.83-4.51); Absolute Neutrophil Count 3.6 X10^3/uL (2.0-7.7); Basophil# 0.04 X10^3/uL; Basophil% 0.7 % (0-1); Eosinophil# 0.27 X10^3/uL; Eosinophils% 4.4 % (0-5); Hematocrit 37.6 % (37-47); Hemoglobin 11.9 g/dL (12.0-15.0); Lymphocyte # 1.74 X10^3/ul (4.0); Lymphocyte % 28.6 % (19-41); Mean Corp Hgb Conc 31.6 g/dL (32-36); Mean Corpuscular Volume 101.1 fL (81-99); Mean Platelet Vol. 10.4 fl (6.2-12.0); Monocyte# 0.39 X10^3/uL; Monocyte% 6.4 % (0-10); NRBC Flagged by Analyzer 0 % (0-5); Neutrophil # 3.64 X10^3/uL (2.7-7.7); Neutrophil % 59.7 % (47-70); Platelet Count 181 K/mm3 (150-450); RBC Distribution Width CV 12.6 % (11.6-14.6); RBC Distribution Width SD 47.3 fl (35.1-43.9); Red Blood Count 3.72 M/mm3 (4.2-5.4); White Blood Count 6.1 K/mm3 (4.4-11.0)
--- NOTE | 2020-01-01 12:55 | CT_ITS ---
STUDY: CT ABDOMEN AND PELVIS WITHOUT CONTRAST REASON FOR EXAM: Female, 44 years old. RECENT HERNIA REPAIR, REDNESS, PAIN AND DRAINAGE FROM SITE. HX OF KS APPY BLADER REPAIR HYSTERECTOMY RADIATION DOSAGE (If Supplied By Facility): CTDIvol = ( 13.69 ) mGy, DLP = ( 673.90 ) mGycm TECHNIQUE: Transaxial images were obtained from the dome of the diaphragm to the symphysis pubis without oral contrast, and without intravenous contrast. Sagittal and coronal images were reconstructed. Individualized dose optimization techniques were used for this CT. COMPARISON: None. FINDINGS: The visualized lung bases are unremarkable. The visualized portions of the heart are within normal limits. Normal liver. Normal gallbladder and extrahepatic biliary system. Normal spleen. Normal pancreas. Normal bilateral adrenal glands. Normal right kidney. Normal left kidney. Normal visualized stomach. Normal small intestine. There are scattered colonic diverticula consistent with diverticulosis. There are surgical clips in the region of the appendix consistent with a prior appendectomy. There is scattered atherosclerotic calcification of the abdominal aorta, without a demonstrated aneurysm. Normal inferior vena cava. Normal retroperitoneum. Normal urinary bladder. There is absence of the uterus consistent with a prior hysterectomy. Soft tissue thickening in the subcutaneous fat deep to the umbilicus. This most likely represents postoperative changes. Small bilateral benign appearing lymph nodes. Disc space narrowing and degeneration at the L5-S1 level. Anterior fixation is seen. A TENS unit is seen overlying the left buttock. CT/Abdomen/Pelvis without Cont IMPRESSION: Scattered sigmoid diverticula. No acute abnormality is seen. Electronically Signed: Amado Bernardo, at 13:26 EDT , Service support ,
[2020-01-01 12:57] LABS: ALB/GLOB Ratio 0.8 RATIO (0.9-2.4); AST(SGOT) 13 U/L (15-37); Alanine Aminotransfer ALT/SGPT 18 U/L (13-56); Alkaline Phosphatase 135 U/L (45-117); Anion Gap 6 (5-15); BUN 13 mg/dL (7-18); BUN/Creat Ratio 19.7 RATIO (10-20); Calcium,Total 8.3 mg/dL (8.5-10.1); Chloride 110 mmol/L (98-107); Creatinine, Serum 0.66 mg/dL (0.55-1.02); EST Glomerular Filtration Rate 104 mL/min (>60); Est Glom Filt Rate - Afr Amer 125 mL/min (>60); Estimated Creatinine Clearance 106.88 ml/min; Globulin 3.9 g/dL (2.2-4.2); Glucose 87 mg/dL (74-106); Potassium 3.8 mmol/L (3.5-5.1); Protein, Total 6.9 g/dL (6.4-8.2); Sodium Level 143 mmol/L (136-145)
[2020-01-01 12:59] LABS: Mucous, Urine 0 SEEN /hpf (<or=2+)
[2020-01-01 13:10] LABS: Glucose, Dipstick Normal (Normal); Ketone-Dipstick 5 mg/dl (Negative); Leukocyte Esterase-Dipstick 25 /ul (Negative); Nitrite-Dipstick Negative (Negative); Occult Blood-Urine 10 /ul (Negative); Protein-Dipstick 15 mg/dl (Negative); Urine Bilirubin Dipstick Negative (Negative); Urine Clarity Clear (Clear); Urine Urobilinogen Normal (Normal)
[2020-01-01 13:14] LABS: Color, Urine SEE COMMENT BELOW (Yellow)
--- NOTE | 2020-01-01 13:16 | ED.VISSUMM ---
- ER Visit Summary Date of Service: 01/01/20 Chief Complaint: Abdominal pain History of Present Illness: The patient is a 44 F who presents with abdominal pain and possible infection. Patient had a herniorrhaphy performed over a week ago. Patient noted some opening of the incision and purulent drainage. Patient states the pain is over the incision area. Patient describes the pain is sharp and stabbing. Patient also states it feels like there is a pressure like something wants to push out. Patient admits to some mild redness around the incision. Patient denies any fevers or chills. Patient admits to nausea but denies any vomiting. Patient denies any diarrhea. Physical Examination: Vital signs are stable. Patient is afebrile. Patient is in no acute distress. Oral mucosa is pink and moist. Neck is supple. Trachea is midline. There is no JVD. Heart was regular rate and rhythm. Lungs are clear and equal bilaterally. Abdomen is soft. Bowel sounds are normal. There is some mild tenderness over the periumbilical area. There is no erythema. There is no active discharge or drainage. The incision appears to be healing well. Cranial nerves II through XII are intact. There are no focal motor or sensory deficits noted. Test Results: CBC and metabolic profile were obtained and were within normal limits. CT scan of the abdomen and pelvis was obtained. There is no acute intra-abdominal process. This was interpreted by the radiologist and reviewed by myself. Emergency Department Course and Treatment: Case was discussed with Dr. Mcgarry. He was advised of the findings. He recommended placing the patient on doxycycline. He will follow-up with the patient in his office. Patient understands and is agreeable with the plan. All questions were answered. Disposition: Discharge home Impression: Postoperative wound check This note was generated with [employer] dictation software. It may contain incorrect words, spelling, and punctuation that were not noted in review of the chart prior to signing ED Disposition - Plan for ED Patient: Disposition: Home or Assisted Living Diagnosis: Encounter for postoperative wound check Instructions: ED Wound Check Post Op Pain Prescriptions: Doxycycline 100 mg PO BID #20 cap Prescription Printed Referrals: Gayle Munoz MD [Primary Care Provider] - 5-7 Days Damaso Mcgarry MD [STAFF PHYSICIAN] - 5-7 Days
[2020-01-01 13:18] LABS: Squamous Epithelial Cells - UA 0-5 SEEN /hpf (5-10)
[2020-01-01 13:19] LABS: Bacteria 1+ /hpf (None Seen); Red Blood Cells-Urine 0-5 SEEN /hpf (0-5); White Blood Cells 0-5 SEEN /hpf (0-5)
[2020-01-01 14:00] VITALS: BP 109/64; PULSE 83; RESP 16; TEMP 36.6; O2SAT 94
== END 2020-01-01 14:38 | disposition home or self-care (01) ==
PROVIDERS: Emergency Provider Emergency Medicine; PCP Internal Medicine
DX: Z48.00 Encounter for change or removal of nonsurgical wound dressing (principal); F17.200 Nicotine dependence, unspecified, uncomplicated
CPT/HCPCS: 74176; 80053; 81001; 85025; 96374; 99283; A4216

== ENCOUNTER 2020-01-03 01:44 | Emergency (ER) | payer MEDICAID, SELFPAY ==
[2020-01-03 01:46] VITALS: BP 119/69; PULSE 75; RESP 17; TEMP 36.6; O2SAT 99; BMI 30.4
--- NOTE | 2020-01-03 02:17 | ED.DCSUM_ITS ---
History of Present Illness Chief Complaint: Wound Check Informant: Patient Onset: Today Context: Sudden Onset - fell out of wheelchair Timing: Continuous Quality: sore Location: periumbilical surgical incision Current Severity: Mild Maximum Severity: Mild Worsened by: moving, touching Relieved by: leaving alone and resting Associated Symptoms: open wound, stitch tore Narrative: Patient had an umbilical herniorrhaphy 1.5 weeks ago here. She states that she was in her wheelchair tonight, the throttle was stuck in the on position and she could not stop, the wheelchair hit her wheelchair ramp, throwing her off and she hit her abdomen on the ramp itself, popping 1 of the stitches and opening the surgical wound just below her umbilicus. After discussing with her surgeon professor of education over the phone, she was referred to the emergency department. Dr. Mcgarry was her surgeon. - Past Medical History (1) Arthritis Status: Chronic (2) Hx of emotional problems Status: Chronic (3) Irritable bowel syndrome Status: Chronic (4) Migraines Status: Chronic (5) Neuropathy Status: Chronic (6) Osteoarthritis Status: Chronic (7) Seasonal allergies Status: Chronic (8) Seizures Status: Chronic (9) Stroke Status: Chronic Comment: x3, TIA's (10) Kidney stones Status: Resolved Past Medical History - Allergies and Home Meds Allergies/Adverse Reactions: Allergies venom-honey bee Allergy (Severe, Verified 01/03/20 01:45) severe venom-wasp Allergy (Severe, Verified 01/03/20 01:45) severe erythromycin base Allergy (Verified 01/03/20 01:45) Anaphylaxis iodine Allergy (Verified 01/03/20 01:45) Anaphylaxis latex Allergy (Verified 01/03/20 01:45) Rash metronidazole [From Flagyl] Allergy (Verified 01/03/20 01:45) Anaphylaxis naproxen [From Naprosyn] Allergy (Verified 01/03/20 01:45) Anaphylaxis Penicillins Allergy (Verified 01/03/20 01:45) Anaphylaxis shellfish derived Allergy (Verified 01/03/20 01:45) Anaphylaxis adhesive Adverse Reaction (Mild, Verified 01/03/20 01:45) BLISTERS All Cillins Allergy (Severe, Uncoded 01/03/20 01:45) Anaphylaxis Primary Care Physician: Damaso Mcgarry MD [STAFF PHYSICIAN] - 1-2 Weeks Gayle Munoz MD [Primary Care Provider] - Surgical History: herniorrhaphy, - - back Smoking Status: Current every day smoker Review of Systems Gastrointestinal: Reports: Abdominal pain - soreness at periumbilical surgical site Musculoskeletal: Reports: Back pain - chronic. Denies: Neck pain, Swelling, Extremity Pain Skin: Reports: Wounds. Denies: Rash Neurological: Denies: Headache, Weakness Physical Exam Vital Signs/Narrative: Vital Signs Temp Pulse Resp BP Pulse Ox 01/03/20 01:46 97.9 F 75 17 119/69 99 General: Well nourished, Well developed, Obese, No Acute Distress Head: Normocephalic, Atraumatic Eyes: Perrl, EOMI ENT: Moist mucous membranes, No rhinorrhea Respiratory: No distress Abdomen: Soft, Nondistended, Normal bowel sounds, Tender - mild, around non- infected dehisced sugical incision infraumbilical Skin: Normal color, No rash, - - Infraumbilical curved clean surgical incision 3 cm with almost complete dehiscence, there is a ruptured suture that is still attached to the skin on the inside and unable to be physically gently removed. No bleeding, discharge, the inside of the abdominal wall appears well perfused. When she moves certain ways, this subcutaneous tissue easily herniate out of the incision. Neurological: Alert, Oriented x3, Cranial nerves II-XII grossly intact, Normal Strength, Normal Sensation Psychological: Normal affect, Normal Mood Diagnostic/Tx/Re-eval - Medical Decision Making Discussed with Dr. Garcia the surgeon on-call who agrees with repairing the wound but to do so loosely, with sutures approximately 1 cm apart, and to make sure the patient is on an antibiotic. She is already on doxycycline, has another 6 days of it to go, which I think is long enough that she does not need it extended beyond that. Advised to follow-up and watch for signs of infection, keep clean and dressed with topical antibiotic, which we did here prior to discharge. Procedures - Lacerations infraumbilical abd wall Length: 3 cm Depth: Sub Q Shape: Linear - curvilinear Prep: Sterile Conditions, Betadine Laceration repair: Local - 0.5% bupivacaine 2cc, Skin sutures Number of Sutures/Belen: 3 Suture Information: Ethilon, Simple, 4-0 ED Disposition - Plan for ED Patient: Disposition: Home or Assisted Living Diagnosis: Dehiscence of external surgical wound Instructions: ED Wound Check Post Op No Infec Referrals: Gayle Munoz MD [Primary Care Provider] - Damaso Mcgarry MD [STAFF PHYSICIAN] - 1-2 Weeks
[2020-01-03 03:30] VITALS: BP 118/90; PULSE 79; RESP 15; O2SAT 98
[2020-01-03] MEDS: Bupivacaine Mpf 0.5% 30 ML VIAL INFILT (03:50)
[2020-01-03 03:51] VITALS: RESP 15
== END 2020-01-03 03:51 | disposition home or self-care (01) ==
PROVIDERS: Emergency Provider Emergency Medicine; PCP Internal Medicine
DX: T81.31XA Disruption of external operation (surgical) wound, not elsewhere classified, initial encounter (principal); F17.200 Nicotine dependence, unspecified, uncomplicated; E66.9 Obesity, unspecified; Z87.442 Personal history of urinary calculi; Z86.73 Personal history of transient ischemic attack (TIA), and cerebral infarction without residual deficits
CPT/HCPCS: 12002; 99284

== ENCOUNTER 2020-02-10 06:15 | Day surgery (SDC) | payer MEDICAID, SELFPAY ==
[2020-01-14 08:27] VITALS: BMI 30.4
[2020-01-30 08:22] VITALS: BMI 30.5
[2020-02-10] VITALS (8 sets, daily range): BP systolic 104–145; BP diastolic 44–69; PULSE 60–99; RESP 14–18; TEMP 36.3–37.2; O2SAT 91–97; BMI 31.1
--- NOTE | 2020-02-10 07:16 | PCM.HP.BLA ---
History and Physical Date of Admission: 02/10/20 Intake Vital Signs 01/14/20 BMI 30.4 Intake Visit Reasons: RIGHT SHOULDER Chief Complaint: f/u ER Allergies venom-honey bee Allergy (Severe, Verified 01/05/20 13:07) severe venom-wasp Allergy (Severe, Verified 01/05/20 13:07) severe erythromycin base Allergy (Verified 01/05/20 13:07) Anaphylaxis iodine Allergy (Verified 01/05/20 13:07) Anaphylaxis latex Allergy (Verified 01/05/20 13:07) Rash metronidazole [From Flagyl] Allergy (Verified 01/05/20 13:07) Anaphylaxis naproxen [From Naprosyn] Allergy (Verified 01/05/20 13:07) Anaphylaxis Penicillins Allergy (Verified 01/05/20 13:07) Anaphylaxis shellfish derived Allergy (Verified 01/05/20 13:07) Anaphylaxis adhesive Adverse Reaction (Mild, Verified 01/05/20 13:07) BLISTERS All Cillins Allergy (Severe, Uncoded 01/05/20 13:07) Anaphylaxis [facility] Social History (Updated 01/14/20 @ 09:[address] Fish Pitt DO) Smoking Status: Current every day smoker alcohol intake: never substance use type: does not use what type of physical activity do you participate in: none HPI RIGHT SHOULDER: Details: Parts of this documentation were recorded by a scribe, this documentation accurately reflects the service provided and the decisions made by me, Dr. Fish Pitt DO 01/14/20 0750. CHARLOTTE VASQUEZ is a 44 year old F here today for F/U on right shoulder and left knee. She states that the left knee is still painful over the medial anterior knee and under her patella which is a sharp pain. She is still having locking of the left knee at times. Denies any recent injections of the left knee. She is having painful giving out of the knee. Right shoulder is still painful over the lateral shoulder and she is having a deep axillary pain and she is also having locking of the shoulder as well. She has limited ROM and is only to about 90 with abduction and forward elevation. She has had some improvement with ROM since PT. She has numbness and tingling of her right arm into her 4th and 5th fingers and frequently drops things. She does report having an EMG done at [facility] about 3-4 years ago but does not have the results with her. Denies any recent injections of the shoulder. To recall she did have a prior rotator cuff repair open by another surgeon and CT arthrogram did not demonstrate any full thicknees tear or extravasation of contrrast into subacromial space. She has x-rays of the cervical spine, shoulder and knee. She also has an arthrogram of the shoulder and knee. Has neck pain of the oxiput through the scupla and into the shoulders. *Shoulder pain is reproduced with cervical range of motion* SHe hasnt been on ATBs for weeks now d/t her infection after hernia. She has DDD of her low back and she has neuropathy of her BL upper and lower along with malagia. Ortho Exam General General: Yes no acute distress Neurologic: Yes alert, Yes oriented x3 Psychologic: Yes reasonable and appropriate Left Knee Skin/Wound: No ecchymosis, No erythema, No swelling Homans Sign: No Knee ROM: Yes ROM-Extension -20 to 0, No ROM-Flexion 0-140 (110) Examination: Yes med jt line tenderness (hypersensitivity), No Lat jt line tenderness, Yes Waqar's Test (significantly painful medial), No TTP Pes Anserine Stability: NML: Anterior Drawer, NML: Posterior Drawer, 1+: Valgus 30 (3mm medial gapping) Patella Grind: Yes KNEE: no joint effusion Right Shoulder Skin/Wound: No ecchymosis, No erythema, No swelling Testing: Negative AROM-Forward Elevation 0-180 (80 pain) SHOULDER: scar from open arthroscopy of right shoulder with some indentation from subcutaneous atrophy noted possibly partial deltoid avulsion significant pain with active and passive ROM active abduction 40 passive abduction 45 external rotation 55 no defect in the pec major, no mass numbness over the 5th digit otherwise sensation intact pain out of proportion with passive range of motion. I believe she is fighting me with ROM however the amout of pain she was in i had to stop Spine Neuro: Yes Sp[facility]ling's SPINE TESTING CERVICAL THORACIC LUMBAR Musculoskeletal Strength 0=absent - 5=normal Details: pain with cervical ROM Supplemental Info 08/18/2019 CT arthrogram left knee: Normal 08/18/2019 CT arthrogram right shoulder: Radiologist suspects partial thickness tear however no extravasation of Contrast is seen into the subacromial space. I do not appreciate this finding. Assessment & Plan Problems 1. Impingement syndrome of right shoulder M75.41 2. Acute pain of left knee M25.562 3. DDD (degenerative disc disease), cervical M50.30 4. Radiculopathy affecting upper extremity M54.10 Plan Patient educated that the X-rays and the arthrogram were negative but she Complains of severe mechanical symptoms. Discussed diagnostic knee arthroscopy and surgery as indicated which could include meniscectomy versus repair possible microfractureDoes wish to proceed with that she does understand there is a possibility of. She does understand there is a risk that she has no improvement if nothing is found upon needing to be nonweightbearing for 6 weeks if some of these procedures are performed she does understand this evaluation. We will set her up for a diagnostic left knee arthroscopy possible meniscectomy vs repair, possible microfracture and surgery as indicated. Reviewed the pre-operative plans with the patient. Risks and benefits of the procedure were fully explained, including but not limited to infection, neurovascular injury, continued pain, arthritis, stiffness, need for further surgery, re-injury, DVT, PE, general risks of anesthesia, and loss of limb or life. The patient understands all the risks and does wish to proceed with written consent. Patient educated that there is no surgical treatment of the right shoulder at this time. Educated that she may be having some overlapping pain from her neck in her shoulder. Patient educated that she can have a right shoulder injection or she can have her cervical spine further evaluated by a spinal surgeon. Our spinal surgeon does not accept her insurance at this time but she wishes to wait until he does take her insurance and she declined PT for her cervical spine today. Follow up post op or sooner if pain, swelling, numbness or associated symptoms, or concerns develop. All questions answered. Patient in agreement of plan. Coding Level of Care Code Off vis,est,level 3 Diagnoses Impingement syndrome of right shoulder M75.41 Acute pain of left knee M25.562 ??Chronicity: acute DDD (degenerative disc disease), cervical M50.30 Radiculopathy affecting upper extremity M54.10 I have re-examined the patient. There are no clinical changes since date of exam Procedure Criteria Procedure Type: Elective COVID Risk Discussion: The surgeon/proceduralist and patient have discussed in detail the risk of exposure to and/or potential harm posed by the COVID-19 virus with having a surgery/procedure at this time versus the risk of delaying the surgery/procedure. It is not possible to know either the risk of delaying the surgery or procedure or chance of getting an infection with perfect accuracy, but a joint decision was made between the patient and the surgeon/proceduralist to proceed at this time with the scheduled surgery/procedure as indicated on the consent form.
[2020-02-10] MEDS: Lactated Ringers 1,000 ML 100 ML IV (07:26)
[2020-02-10] MEDS: Bupiv/Epi 0.5% Mpf 30 ML Vial (10:53)
[2020-02-10] MEDS: MethylPREDNISolone Acetate 40 MG/ML Vial IM (11:00)
[2020-02-10] MEDS: Bupivacaine Mpf 0.5% 30 ML VIAL (11:00)
[2020-02-10] MEDS: morphine PF (epidural) 5 MG/10 ML Vial (11:00)
[2020-02-10] MEDS: Epinephrine (1 mg/ml) 1 MG/ML VIAL (11:00)
--- NOTE | 2020-02-10 11:17 | DCINST_ITS ---
Discharge Diet: No Restrictions Weight Bearing Status: Weight bearing as tolerated Keep extremity elevated above heart level: Operative Extremity Call your doctor if you observe: Shortness of breath, Chest pain Additional Instructions: Ice and elevate next 72 hours .keep dressing on clean and dry for 48 hours then may remove begin showering daily but do not submerge in tub or pool. After shower may apply Band-Aids . Encourage knee range of motion weightbearing as tolerated, use crutches until confident in knee then may discontinue. No strenuous activity. When not ambulating keep iced and elevated next 72 hours. Do not take prescription pain medication with other forms of narcotic pain medication, and [id number] NSAID is okay, call with any questions or concerns. Allergies/Adverse Reactions: Allergies venom-honey bee Allergy (Severe, Verified 02/10/20 07:05) severe venom-wasp Allergy (Severe, Verified 02/10/20 07:05) severe erythromycin base Allergy (Verified 02/10/20 07:05) Anaphylaxis iodine Allergy (Verified 02/10/20 07:05) Anaphylaxis latex Allergy (Verified 02/10/20 07:05) Rash metronidazole [From Flagyl] Allergy (Verified 02/10/20 07:05) Anaphylaxis naproxen [From Naprosyn] Allergy (Verified 02/10/20 07:05) Anaphylaxis Penicillins Allergy (Verified 02/10/20 07:05) Anaphylaxis shellfish derived Allergy (Verified 02/10/20 07:05) Anaphylaxis adhesive Adverse Reaction (Mild, Verified 02/10/20 07:05) BLISTERS All Cillins Allergy (Severe, Uncoded 02/10/20 07:05) Anaphylaxis Medications to take at Discharge Gabapentin 600 mg PO TID 07/10/18 hydrOXYzine pamoate capsule [Vistaril pamoate capsule] 50 mg PO TID PRN 07/10/18 carbamazepine 200 mg tablet 200 mg PO DAILY 08/15/18 topiramate 200 mg tablet 200 mg PO QHS tab 08/15/18 tramadol 50 mg tablet 50 mg PO TID PRN 08/15/18 cyclobenzaprine 10 mg tablet 10 mg PO BID PRN tab 01/23/19 duloxetine 30 mg capsule,delayed release 90 mg PO QHS 06/09/19 Methenam/Sod Phos/Mblue/Hyoscy [Urogesic-Blue Tablet] 1 ea PO BID 06/10/19 epinephrine 0.3 mg/0.3 mL injection, auto-injector 0.3 mg IM Q5-15M PRN #2 ea 08/11/19 montelukast 10 mg tablet 10 mg PO QHS #90 tab 08/11/19 Prazosin HCl [Minipress] 5 mg PO QHS 09/17/19 simvastatin 20 mg tablet 20 mg PO QHS #90 tab 10/07/19 aripiprazole 30 mg tablet 40 mg PO DAILY 10/28/19 trazodone 100 mg tablet 300 mg PO QHS tab 10/28/19 levocetirizine 5 mg tablet 5 mg PO DAILY PRN #30 tab 11/13/19 omeprazole 40 mg capsule,delayed release 40 mg PO DAILY #60 cap 11/13/19 carbamazepine 200 mg tablet 400 mg PO QHS 12/08/19 celecoxib 200 mg capsule 200 mg PO DAILY 12/08/19 desmopressin 0.2 mg tablet 0.2 mg PO PRN PRN 12/08/19 magnesium oxide 400 mg PO BID #60 tab 12/31/19 dicyclomine 10 mg capsule 10 mg PO BID PRN #90 cap 01/22/20 levetiracetam 500 mg tablet 500 mg PO BID #180 tab 01/22/20 Sumatriptan Succinate See Rx Instructions PO .COMPLEX PRN 02/02/20 proMETHazine tablet [Phenergan tablet] See Rx Instructions .ROUTE .COMPLEX PRN 02/02/20 Oxycodone [Oxyir] 5 mg PO Q4H PRN PRN #40 tablet 02/10/20 The following prescriptions were given: Oxycodone [Oxyir] 5 mg PO Q4H PRN PRN #40 tablet PRN Reason: Pain Score 6-10 Transmission Status: Sent to [facility] Primary Care Physician: Gayle Munoz MD [Primary Care Provider] - Test Results: Test results from this visit will be discussed in further detail at your follow- up appointment, if applicable. Please Follow Up With: Fish Pitt DO When: 2 weeks
--- NOTE | 2020-02-10 11:19 | OP.PCM_ITS ---
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 She did have a CT arthrogram which was negative failed conservative treatment and did wish to proceed with elective arthroscopic evaluation and surgery as indicated the patient did wish to proceed with an elective arthroscopic surgery to attempt to alleviate the symptoms. Risk benefits and alternatives of the procedure were reviewed including risk of bleeding infection nerve artery tissue damage need for further surgery continued pain and expected postoperative course. Procedure: The patient was met in the preoperative holding area. The operative extremity was identified by both patient and physician and family and marked. Patient was brought back to the operating room on a wheeled cart and transferred to the operating table in the supine position. Anesthesia was started. A well- padded tourniquet was placed on the operative extremity. A lower extremity leg valles was secured to the operative extremity. The contralateral extremity was well-padded and the end of the bed was flexed to 90 degrees. The patient was prepped and draped in the usual sterile fashion. A timeout was called to ensure the proper patient, procedure, and extremity were being contemplated. 0.5% Marcaine with epinephrine was injected into the planned incisional areas under the skin only. An Esmarch was used to exsanguinate the extremity and the tourniquet was inflated. An 11 blade scalpel was used to make a stab incision in the anterior lateral portal. The arthroscope was inserted into the intercondylar notch and inflow and outflow tubes were attached. Arthroscopic visualization began. The medial compartment was entered. An 18-gauge spinal needle was used to establish the placement for anterior medial portal. An 11 blade scalpel was used to make a stab incision. Blunt probe was inserted followed by a meniscal probe. The medial compartment to demonstrate a large chondral flap with loose cartilage chondroplasty was performed to a stable rim of cartilage tissue cartilage defect was near full-thickness and there was not a good vertical wall on the lateral side the defect extended into the intercondylar notch measuring approximately 5 x 30 and a L-shaped configuration the remainder of the medial meniscus was intact there was some softening of the medial and lateral tibial plateau ACL was inspected and had some laxity but intact good patellofemoral tracking the ACL was found to be intact. The lateral compartment was entered The arthroscope was switched to the medial portal to complete the procedure. The medial and lateral gutters were inspected and . The patellofemoral joint was inspected and was free of cartilage pathology. There was good patellar tracking. The knee was thoroughly irrigated and drained. An intra-articular injection with 5 cc 0.5% Marcaine plain 2.5 mg of morphine and 40 mg of Depo-Medrol was injected intra-articularly. The arthroscope was removed the portals were closed with 3-0 nylon arthroscopic stitches. Followed by Xeroform 4 x 4's ABDs web roll and an Avery wrap. The tourniquet was let down and the drapes were removed. All counts were correct. The patient was brought back to the PACU in stable condition.
[2020-02-10] MEDS: oxyCODONE 5 MG Tablet PO (13:50)
== END 2020-02-10 14:00 | disposition home or self-care (01) ==
LOC: SDC 06:15 → AC 06:15
PROVIDERS: Anesthesiology; PCP Internal Medicine; Referring Provider Orthopaedic Surgery; Visit Provider Orthopaedic Surgery
PROC: (CPT 29870; principal; 2020-02-10 10:00)
DX: M94.262 Chondromalacia, left knee (principal); M25.562 Pain in left knee; Z20.828 Contact with and (suspected) exposure to other viral communicable diseases; F17.200 Nicotine dependence, unspecified, uncomplicated; G62.9 Polyneuropathy, unspecified; M75.41 Impingement syndrome of right shoulder; M50.10 Cervical disc disorder with radiculopathy, unspecified cervical region; Z79.899 Other long term (current) drug therapy; K21.9 Gastro-esophageal reflux disease without esophagitis; F41.9 Anxiety disorder, unspecified; F32.9 Major depressive disorder, single episode, unspecified
CPT/HCPCS: 01400; 29877; 87635; C9803; J7120; J2405; U0003

== ENCOUNTER → 2020-03-31 10:31 | Outpatient (CLI) | payer MEDICAID, SELFPAY ==
[2020-03-31 09:55] VITALS: BMI 31.3
[2020-03-31 13:22] LABS: ALB/GLOB Ratio 0.8 RATIO (0.9-2.4); AST(SGOT) 12 U/L (15-37); Alanine Aminotransfer ALT/SGPT 19 U/L (13-56); Albumin, Serum 3.4 g/dL (3.2-5.0); Alkaline Phosphatase 153 U/L (45-117); Anion Gap 4 (5-15); BUN 13 mg/dL (7-18); BUN/Creat Ratio 18.3 RATIO (10-20); Calcium,Total 8.7 mg/dL (8.5-10.1); Chloride 106 mmol/L (98-107); Cholesterol 184 mg/dL (200); Creatinine, Serum 0.71 mg/dL (0.55-1.02); EST Glomerular Filtration Rate 95 mL/min (>60); Est Glom Filt Rate - Afr Amer 115 mL/min (>60); Globulin 4.3 g/dL (2.2-4.2); Glucose 111 mg/dL (74-106); High Density Lipoprotein 53 mg/dL; Potassium 3.8 mmol/L (3.5-5.1); Protein, Total 7.7 g/dL (6.4-8.2); Sodium Level 140 mmol/L (136-145); Triglycerides 168 mg/dL; Very Low Density Lipoprotein 34 mg/dL (5-40)
[2020-04-01 10:49] LABS: Hemoglobin A1c 5.3 % (3.8-5.6)
== END ==
PROVIDERS: PCP Internal Medicine; Referring Provider Internal Medicine; Visit Provider Internal Medicine
DX: E78.5 Hyperlipidemia, unspecified (principal); R73.9 Hyperglycemia, unspecified
CPT/HCPCS: 36415; 80053; 80061; 83036

== ENCOUNTER 2020-05-27 14:24 | Emergency (ER) | payer MEDICAID, SELFPAY ==
[2020-05-27 14:25] VITALS: BP 127/79; PULSE 90; RESP 16; TEMP 35.8; O2SAT 100; BMI 32.8
--- NOTE | 2020-05-27 14:45 | US_ITS ---
STUDY: ABDOMINAL ULTRASOUND - RIGHT UPPER QUADRANT REASON FOR VISIT: Female, 44 years old. ] Upper quadrant pain. TECHNIQUE: Ultrasound evaluation of the right upper quadrant was performed with real-time and static negron-scale imaging. TECHNICAL QUALITY: Adequate. COMPARISON: CT dated 05/27/20 FINDINGS: Liver: The liver measures 15.9 cm. There is normal echogenicity of the liver. The bile ducts are within normal limits. There is hepatic color flow. The direction of portal flow is hepatopetal. There is no demonstrated mass lesion. Gallbladder: Normal distended gallbladder. The gallbladder wall measures 2 mm. There is a negative sonographic Greenberg''s sign. There is no pericholecystic fluid. There are no gallstones. Common Bile Duct (C.B.D.): The common bile duct measures 4 mm. Pancreas: The pancreatic tail is not well-visualized. The pancreatic head and body are within normal limits. There is no demonstrated pancreatic mass or cyst. Right Kidney: Normal size of the right kidney. The right kidney measures 11.2 cm. Normal renal cortex. There is no demonstrated renal mass or cyst. There is no right hydronephrosis. US/Abdomen Limited IMPRESSION: Normal right upper quadrant ultrasound examination. Electronically Signed: Nabeel Crespo MD at 16:49 EST Tel , Service support ,
--- NOTE | 2020-05-27 14:48 | ED.DCSUM_ITS ---
History of Present Illness Chief Complaint: Abd Pain Informant: Patient Narrative: 44-year-old female with multiple medical problems presenting for right upper quadrant abdominal pain and vomiting. Symptoms began several days ago and have been constant. Decreased p.o. due to the vomiting. She states she has had problems with her pancreas or gallbladder in the past. She has a history of kidney stones and states this feels different. She has had prior appendectomy and hysterectomy. She denies any fevers. She notes bilious emesis. Patient was seen and examined by her primary care provider and was sent to the emergency department a concern for gallbladder disease. - Past Medical History (1) Incisional hernia Status: Chronic (2) Gastroesophageal reflux disease Status: Chronic (3) Migraines Status: Chronic (4) Lamar's palsy Status: Chronic (5) Depression with anxiety Status: Chronic (6) Ulcer Status: Acute Comment: Stomach (7) Stroke Status: Chronic Comment: x3, TIA's (8) Seizures Status: Chronic (9) Osteoarthritis Status: Chronic (10) Neuropathy Status: Chronic (11) Kidney stones Status: Resolved (12) Irritable bowel syndrome Status: Chronic (13) Seasonal allergies Status: Chronic Past Medical History - Allergies and Home Meds Allergies/Adverse Reactions: Allergies venom-honey bee Allergy (Severe, Verified 05/27/20 10:18) severe venom-wasp Allergy (Severe, Verified 05/27/20 10:18) severe erythromycin base Allergy (Verified 05/27/20 10:18) Anaphylaxis iodine Allergy (Verified 05/27/20 10:18) Anaphylaxis latex Allergy (Verified 05/27/20 10:18) Rash metronidazole [From Flagyl] Allergy (Verified 05/27/20 10:18) Anaphylaxis naproxen [From Naprosyn] Allergy (Verified 05/27/20 10:18) Anaphylaxis Penicillins Allergy (Verified 05/27/20 10:18) Anaphylaxis shellfish derived Allergy (Verified 05/27/20 10:18) Anaphylaxis adhesive Adverse Reaction (Mild, Verified 05/27/20 10:18) BLISTERS All Cillins Allergy (Severe, Uncoded 05/27/20 10:18) Anaphylaxis Primary Care Physician: Gayle Munoz MD [Primary Care Provider] - Surgical History: herniorrhaphy, - Smoking Status: Never smoker Drugs: None Review of Systems General: Denies: Chills, Fever, Sweats Eyes: Denies: Visual changes - bilaterally, Diplopia ENT: Denies: Rhinorrhea, Sore throat Cardiovascular: Denies: Chest pain, Palpitations Respiratory: Denies: Dyspnea, Cough, Dyspnea on exertion Gastrointestinal: Reports: Abdominal pain, Nausea, Vomiting. Denies: Diarrhea, Melena, Hematochezia Genitourinary: Denies: Dysuria, Hematuria, Frequency Musculoskeletal: Denies: Back pain, Extremity Pain Skin: Denies: Rash, Wounds Neurological: Denies: Headache, Weakness, Numbness Physical Exam Vital Signs/Narrative: Vital Signs Temp Pulse Resp BP Pulse Ox 05/27/20 14:25 96.5 F L 90 16 127/79 H 100 Inital Vital Signs reviewed: Yes General: Well nourished, Well developed, Obese, No Acute Distress Head: Normocephalic, Atraumatic Eyes: Perrl, EOMI ENT: Moist mucous membranes, No rhinorrhea Neck: Supple, Nontender Cardiovascular: Regular rate, Regular rhythm, No murmurs Respiratory: No distress, CTA bilaterally, Chest nontender Abdomen: Soft, Nondistended, Normal bowel sounds, Tender - RUQ TTP, Guarding, Rebound tenderness Back: Nontender, Normal Inspection Extremities: Nontender, No edema Skin: Normal color, - - There is some mild petechial changes of the skin in the upper abdomen and inferior periorbital region bilaterally. Neurological: Alert, Oriented x3, Cranial nerves II-XII grossly intact, Normal Strength, Normal Sensation Psychological: Normal affect, Normal Mood Diagnostic/Tx/Re-eval Clinical Impression(s) from Imaging Studies Abdomen Ultrasound 05/27/20 14:45 IMPRESSION: Normal right upper quadrant ultrasound examination. Electronically Signed: Nabeel Crespo MD at 16:49 EST Tel , Service support , Abdomen/Pelvis CT 05/27/20 16:05 IMPRESSION: No acute abdominal or pelvic pathology demonstrated on this noncontrast CT. Electronically Signed: Nabeel Crespo MD at 16:41 EST Tel , Service support , Laboratory Last Values WBC 6.9 K/mm3 (4.4-11.0) 05/27/20 14:42 RBC 4.04 M/mm3 (4.2-5.4) L 05/27/20 14:42 Hgb 13.4 g/dL (12.0-15.0) 05/27/20 14:42 Hct 40.2 % (37-47) 05/27/20 14:42 MCV 99.5 fL (81-99) H 05/27/20 14:42 MCH 33.2 pg (27.0-32.0) H 05/27/20 14:42 MCHC 33.3 g/dL (32-36) 05/27/20 14:42 RDW Std Deviation 46.7 fl (35.1-43.9) H 05/27/20 14:42 RDW Coeff of Karina 12.8 % (11.6-14.6) 05/27/20 14:42 Plt Count 212 K/mm3 (150-450) 05/27/20 14:42 MPV 11.3 fl (6.2-12.0) 05/27/20 14:42 Immature Gran % (Auto) 0.300 % (0.0-0.9) 05/27/20 14:42 Neut % (Auto) 56.8 % (47-70) 05/27/20 14:42 Lymph % (Auto) 36.3 % (19-41) 05/27/20 14:42 [place] % (Auto) 4.5 % (0-10) 05/27/20 14:42 Eos % (Auto) 1.7 % (0-5) 05/27/20 14:42 Baso % (Auto) 0.4 % (0-1) 05/27/20 14:42 Absolute Neuts (auto) 3.9 X10^3/uL (2.0-7.7) 05/27/20 14:42 Absolute Lymphs (auto) 2.51 X10^3/uL (0.83-4.51) 05/27/20 14:42 Nucleated RBC % 0 % (0-5) 05/27/20 14:42 Sodium 140 mmol/L (136-145) 05/27/20 14:42 Potassium 3.3 mmol/L (3.5-5.1) L 05/27/20 14:42 Chloride 109 mmol/L (98-107) H 05/27/20 14:42 Carbon Dioxide 28.0 mmol/L (21.0-32.0) 05/27/20 14:42 Anion Gap 3 (5-15) L 05/27/20 14:42 BUN 13 mg/dL (7-18) 05/27/20 14:42 Creatinine 0.67 mg/dL (0.55-1.02) 05/27/20 14:42 Estim Creat Clear Calc 105.28 ml/min 05/27/20 14:42 Est GFR (MDRD) Af Amer 123 mL/min (>60) 05/27/20 14:42 Est GFR (MDRD) Non-Af 102 mL/min (>60) 05/27/20 14:42 BUN/Creatinine Ratio 19.4 RATIO (10-20) 05/27/20 14:42 Glucose 95 mg/dL (74-106) 05/27/20 14:42 Calcium 9.0 mg/dL (8.5-10.1) 05/27/20 14:42 Total Bilirubin 0.50 mg/dL (0.20-1.00) 05/27/20 14:42 AST 15 U/L (15-37) 05/27/20 14:42 ALT 21 U/L (13-56) 05/27/20 14:42 Alkaline Phosphatase 147 U/L (45-117) H 05/27/20 14:42 Total Protein 7.9 g/dL (6.4-8.2) 05/27/20 14:42 Albumin 3.6 g/dL (3.2-5.0) 05/27/20 14:42 Globulin 4.3 g/dL (2.2-4.2) H 05/27/20 14:42 Albumin/Globulin Ratio 0.8 RATIO (0.9-2.4) L 05/27/20 14:42 Lipase 71 U/L (73-393) L 05/27/20 14:42 - Medical Decision Making Patient received IV fluids morphine and Zofran. Patient's white blood cell count is normal. LFTs are negative. Lipase negative. Gallbladder ultrasound was negative for gallstones, gallbladder wall thickening, common bile duct dilatation or pericholecystic fluid. Negative sonographic Greenberg sign. CT the abdomen pelvis was therefore obtained which does not demonstrate anything acute. Patient be discharged home with antiemetics and instructions to follow-up primary care next week. ED Disposition - Plan for ED Patient: Disposition: Home or Assisted Living Diagnosis: Acute abdominal pain, Vomiting Instructions: ED Abdominal Pain Unkn Cause Fem, ED Vomiting (Adult) Prescriptions: Hydrocodone Bitart/Apap 5-325 [[place] 5MG-325MG] 1 tab PO Q6H PRN PRN 3 Days #10 tab PRN Reason: Pain Prescription Printed Ondansetron [Zofran Odt] 4 mg PO Q6H PRN PRN #15 tab PRN Reason: Nausea Prescription Printed Referrals: Gayle Munoz MD [Primary Care Provider] - 3-5 Days if not improving
[2020-05-27] MEDS: Ondansetron 4 MG/2 ML Vial IV (15:24)
[2020-05-27] MEDS: Morphine 4 MG/ML Syringe IV (15:25)
[2020-05-27] MEDS: 0.9% Normal Saline 1,000 ML 1000 ML IV (15:26)
[2020-05-27] MEDS: 0.9% Normal Saline 1,000 ML 125 ML IV (15:26)
[2020-05-27 15:27] LABS: Absolute Lymphocyte Count 2.51 X10^3/uL (0.83-4.51); Absolute Neutrophil Count 3.9 X10^3/uL (2.0-7.7); Basophil# 0.03 X10^3/uL; Basophil% 0.4 % (0-1); Eosinophil# 0.12 X10^3/uL; Eosinophils% 1.7 % (0-5); Hematocrit 40.2 % (37-47); Hemoglobin 13.4 g/dL (12.0-15.0); Lymphocyte # 2.51 X10^3/ul (4.0); Lymphocyte % 36.3 % (19-41); Mean Corp Hgb Conc 33.3 g/dL (32-36); Mean Corpuscular Hgb 33.2 pg (27.0-32.0); Mean Corpuscular Volume 99.5 fL (81-99); Mean Platelet Vol. 11.3 fl (6.2-12.0); Monocyte# 0.31 X10^3/uL; Monocyte% 4.5 % (0-10); NRBC Flagged by Analyzer 0 % (0-5); Neutrophil # 3.93 X10^3/uL (2.7-7.7); Neutrophil % 56.8 % (47-70); Platelet Count 212 K/mm3 (150-450); RBC Distribution Width CV 12.8 % (11.6-14.6); RBC Distribution Width SD 46.7 fl (35.1-43.9); Red Blood Count 4.04 M/mm3 (4.2-5.4); White Blood Count 6.9 K/mm3 (4.4-11.0)
[2020-05-27 15:37] LABS: ALB/GLOB Ratio 0.8 RATIO (0.9-2.4); AST(SGOT) 15 U/L (15-37); Alanine Aminotransfer ALT/SGPT 21 U/L (13-56); Albumin, Serum 3.6 g/dL (3.2-5.0); Alkaline Phosphatase 147 U/L (45-117); Anion Gap 3 (5-15); BUN 13 mg/dL (7-18); BUN/Creat Ratio 19.4 RATIO (10-20); Chloride 109 mmol/L (98-107); Creatinine, Serum 0.67 mg/dL (0.55-1.02); EST Glomerular Filtration Rate 102 mL/min (>60); Est Glom Filt Rate - Afr Amer 123 mL/min (>60); Estimated Creatinine Clearance 105.28 ml/min; Globulin 4.3 g/dL (2.2-4.2); Glucose 95 mg/dL (74-106); Lipase 71 U/L (73-393); Potassium 3.3 mmol/L (3.5-5.1); Protein, Total 7.9 g/dL (6.4-8.2); Sodium Level 140 mmol/L (136-145)
--- NOTE | 2020-05-27 16:05 | CT_ITS ---
STUDY: CT ABDOMEN AND PELVIS WITHOUT CONTRAST REASON FOR EXAM: Female, 44 years old. Right upper quadrant pain. History of appendectomy. RADIATION DOSAGE (If Supplied By Facility): CTDIvol = ( 12.30 ) mGy, DLP = ( 621.73 ) mGycm TECHNIQUE: Transaxial images were obtained from the dome of the diaphragm to the symphysis pubis without oral contrast, and without intravenous contrast. Sagittal and coronal images were reconstructed. Individualized dose optimization techniques were used for this CT. COMPARISON: 01/01/20 FINDINGS: Evaluation of the abdominal viscera is limited in the absence of intravenous contrast. The visualized lung bases are clear. The visualized portions of the heart and pericardium are within normal limits. There are no calcified gallstones present. The liver demonstrates an unremarkable unenhanced appearance. The spleen is normal in size. The pancreas demonstrates an unremarkable unenhanced appearance. The adrenal glands are within normal limits. There are no renal or ureteral stones. There is no hydronephrosis. Normal visualized stomach. There is no bowel obstruction or inflammation. There are surgical clips in the region of the appendix consistent with a prior appendectomy. The aorta is normal in caliber. There is no abdominal or pelvic free air, free fluid, fluid collection or lymphadenopathy. The patient is status post hysterectomy. There are no destructive osseous lesions. There is fusion hardware spanning L5/S1. There is a spinal stimulator electrode in place. CT/Abdomen/Pelvis without Cont IMPRESSION: No acute abdominal or pelvic pathology demonstrated on this noncontrast CT. Electronically Signed: Nabeel Crespo MD at 16:41 EST Tel , Service support ,
[2020-05-27 17:38] VITALS: BP 122/76; PULSE 80; RESP 15; O2SAT 97
== END 2020-05-27 17:39 | disposition home or self-care (01) ==
PROVIDERS: Emergency Provider Emergency Medicine; PCP Internal Medicine
DX: R10.11 Right upper quadrant pain (principal); R11.10 Vomiting, unspecified; E66.9 Obesity, unspecified; Z87.442 Personal history of urinary calculi; Z86.73 Personal history of transient ischemic attack (TIA), and cerebral infarction without residual deficits
CPT/HCPCS: 74176; 76705; 80053; 83690; 85025; 96361; 96374; 96375; 99283; J7030; A4216; J2405

== ENCOUNTER 2020-06-10 09:45 | Emergency (ER) | payer MEDICAID, SELFPAY ==
[2020-06-10 09:46] VITALS: BP 134/71; PULSE 104; RESP 18; TEMP 36.6; O2SAT 100; BMI 31.4
--- NOTE | 2020-06-10 10:07 | ED.VIS.GEN ---
History of Present Illness Chief Complaint: GI Bleed Detail of Chief Complaint: Red blood per rectum with bowel movement Informant: Patient Onset: Days - Approximately 3 days ago Context: Sudden Onset Timing: Intermittent Quality: Red blood Location: Per rectum Current Severity: Mild Maximum Severity: Moderate Worsened by: Bowel movement Relieved by: Nothing Associated Symptoms: No associated symptoms Narrative: Patient is a 44-year-old woman who navigates using a wheelchair due to Degenerative disease of the spine and neuropathy. She denies bowel bladder dysfunction. Denies saddle paresthesia or anesthesia. She denies constipation or diarrhea. She states she has black-red blood per rectum. She is noted blood in the commode and on the toilet paper. She denies history of hemorrhoids. She denies history of anal trauma. She denies history of liver disease. She denies alcohol use. She denies being . Prior similar symptoms: No Recent Illness/Hospitalization: No - Past Medical History (1) Urge incontinence Status: Acute (2) Arthritis Status: Chronic (3) Back problem Status: Chronic (4) Carpal tunnel syndrome Status: Chronic (5) Depression with anxiety Status: Chronic (6) Gastroesophageal reflux disease Status: Chronic (7) Hearing problem Status: Chronic (8) Irritable bowel syndrome Status: Chronic (9) Neuropathy Status: Chronic (10) Osteoarthritis Status: Chronic (11) Seizures Status: Chronic (12) Stroke Status: Chronic Comment: x3, TIA's (13) Cancer Status: Resolved (14) Kidney stones Status: Resolved Past Medical History - Allergies and Home Meds Allergies/Adverse Reactions: Allergies venom-honey bee Allergy (Severe, Verified 06/10/20 09:48) severe venom-wasp Allergy (Severe, Verified 06/10/20 09:48) severe erythromycin base Allergy (Verified 06/10/20 09:48) Anaphylaxis iodine Allergy (Verified 06/10/20 09:48) Anaphylaxis latex Allergy (Verified 06/10/20 09:48) Rash metronidazole [From Flagyl] Allergy (Verified 06/10/20 09:48) Anaphylaxis naproxen [From Naprosyn] Allergy (Verified 06/10/20 09:48) Anaphylaxis Penicillins Allergy (Verified 06/10/20 09:48) Anaphylaxis shellfish derived Allergy (Verified 06/10/20 09:48) Anaphylaxis adhesive Adverse Reaction (Mild, Verified 06/10/20 09:48) BLISTERS All Cillins Allergy (Severe, Uncoded 06/10/20 09:48) Anaphylaxis Primary Care Physician: Gayle Munoz MD [Primary Care Provider] - Prior records reviewed: Yes Surgical History: herniorrhaphy, - Lives: With Family Smoking Status: Light Smoker (<10/day) Alcohol: Rare Drugs: None Review of Systems General: Denies: Chills, Fever, Malaise, Subjective, Sweats Cardiovascular: Denies: Chest pain, Palpitations Respiratory: Denies: Dyspnea, Cough, Dyspnea on exertion Gastrointestinal: Reports: Abdominal pain, Nausea, Vomiting, Diarrhea, Constipation, Melena. Denies: Hematochezia Musculoskeletal: Reports: Back pain. Denies: Myalgias, Arthralgias, Neck pain, Swelling, Extremity Pain Skin: Denies: Rash, Wounds Psych: Reports: Depression, Anxiety. Denies: Suicidal thoughts Hematologic: Denies: Easy bruising, Easy bleeding Physical Exam Vital Signs/Narrative: Vital Signs Temp Pulse Resp BP Pulse Ox 06/10/20 09:46 98 F 104 H 18 134/71 H 100 Inital Vital Signs reviewed: Yes General: Well nourished, Well developed, Obese, No Acute Distress Head: Normocephalic, Atraumatic Eyes: Perrl, EOMI. Negative for: Pale conjunctiva ENT: Moist mucous membranes, No rhinorrhea Cardiovascular: Regular rate, Regular rhythm Respiratory: No distress Abdomen: Soft, Nontender, Nondistended, Normal bowel sounds Rectal: - - Obvious fissures, fistulas or hemorrhoids. Patient complained of discomfort on rectal exam. Stool appeared brown. There was no bright red blood noted. Extremities: Nontender, No edema Skin: Normal color, No rash Neurological: Alert, Oriented x3, Cranial nerves II-XII grossly intact. Negative for: Normal Strength, Normal Sensation, Normal Gait Psychological: Depressed Diagnostic/Tx/Re-eval - Medical Decision Making Since there is no obvious hemorrhoids noted. Anoscopy was performed. Please see procedure note. Differential diagnosis include hemorrhoidal bleeding, proctitis, lower GI bleed due to diverticular disease, which patient denies history of Procedures Procedure(s): Patient consented verbally to anoscopy. There is a hemorrhoid noted at 7:00 lithotomy position with evidence of recent bleeding. There is no active bleeding. The anal/rectal mucosa appears normal otherwise. ED Disposition - Plan for ED Patient: Disposition: Home or Assisted Living Diagnosis: Bleeding external hemorrhoids Instructions: ED Hemorrhoids, ED Lower GI Bleeding (Stable) Referrals: Gayle Munoz MD [Primary Care Provider] - 10-14 Days if not better
[2020-06-10 10:28] VITALS: BP 129/66; PULSE 74; RESP 15; O2SAT 98
== END 2020-06-10 10:29 | disposition home or self-care (01) ==
PROVIDERS: Emergency Provider Emergency Medicine; PCP Internal Medicine
DX: K64.4 Residual hemorrhoidal skin tags (principal); E66.9 Obesity, unspecified; F17.200 Nicotine dependence, unspecified, uncomplicated; K21.9 Gastro-esophageal reflux disease without esophagitis; Z87.442 Personal history of urinary calculi; Z86.73 Personal history of transient ischemic attack (TIA), and cerebral infarction without residual deficits
CPT/HCPCS: 99282

== ENCOUNTER → 2020-06-28 08:42 | Outpatient (CLI) | payer MEDICAID, SELFPAY ==
[2020-06-28 08:42] VITALS: BMI 31.3
[2020-06-28 12:02] LABS: Absolute Lymphocyte Count 1.58 X10^3/uL (0.83-4.51); Absolute Neutrophil Count 4.5 X10^3/uL (2.0-7.7); Basophil# 0.03 X10^3/uL; Basophil% 0.4 % (0-1); Hematocrit 37.8 % (37-47); Hemoglobin 12.2 g/dL (12.0-15.0); Lymphocyte # 1.58 X10^3/ul (4.0); Lymphocyte % 23.4 % (19-41); Mean Corp Hgb Conc 32.3 g/dL (32-36); Mean Corpuscular Hgb 33.4 pg (27.0-32.0); Mean Corpuscular Volume 103.6 fL (81-99); Mean Platelet Vol. 11.6 fl (6.2-12.0); Monocyte# 0.42 X10^3/uL; Monocyte% 6.2 % (0-10); NRBC Flagged by Analyzer 0 % (0-5); Neutrophil % 66.6 % (47-70); Platelet Count 186 K/mm3 (150-450); RBC Distribution Width CV 12.7 % (11.6-14.6); RBC Distribution Width SD 48.3 fl (35.1-43.9); Red Blood Count 3.65 M/mm3 (4.2-5.4); White Blood Count 6.8 K/mm3 (4.4-11.0)
== END ==
PROVIDERS: PCP Internal Medicine; Referring Provider Internal Medicine; Visit Provider Internal Medicine
DX: K21.9 Gastro-esophageal reflux disease without esophagitis (principal)
CPT/HCPCS: 36415; 85025

== ENCOUNTER 2020-07-14 10:32 | Outpatient (RCR) | payer MEDICAID, SELFPAY | END 2020-09-14 23:59 | LOC: IMMUN 10:32 | PROVIDERS: PCP Internal Medicine; Visit Provider Family Medicine | DX: Z23 Encounter for immunization (principal) | CPT/HCPCS: 0001A; 0002A; 91300 ==

== ENCOUNTER → 2020-08-02 08:56 | Outpatient (CLI) | payer MEDICAID, SELFPAY ==
[2020-08-02 08:23] VITALS: BMI 32.7
[2020-08-02 12:57] LABS: Anion Gap 8 (5-15); BUN 14 mg/dL (7-18); BUN/Creat Ratio 19.5 RATIO (10-20); Calcium,Total 8.5 mg/dL (8.5-10.1); Chloride 108 mmol/L (98-107); Creatinine, Serum 0.72 mg/dL (0.55-1.02); EST Glomerular Filtration Rate 94 mL/min (>60); Est Glom Filt Rate - Afr Amer 114 mL/min (>60); Glucose 90 mg/dL (74-106); Potassium 3.9 mmol/L (3.5-5.1); Sodium Level 140 mmol/L (136-145)
== END ==
PROVIDERS: Visit Provider Internal Medicine
DX: E87.6 Hypokalemia (principal)
CPT/HCPCS: 36415; 80048

== ENCOUNTER 2020-08-10 08:00 | Outpatient (RCR) | payer MEDICAID, SELFPAY ==
[2020-02-23 09:38] VITALS: BMI 30.4
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
--- NOTE | 2020-05-19 08:40 | HP.PTREVAL_ITS ---
Dr. Fish Pitt, DO, It has been my pleasure to treat CHARLOTTE VASQUEZ over the last 14 visits for S/P L knee 02/10/20. Please see the progress note below for an update on the physical therapy plan of care! Subjective: I have stairs at home that i need to be able to go up and down on, and still cant. Objective/Function: Pt rates her pain at 7/10. Pt notes she is sleeping much better, but still wakes up at night secondary to pain, just less often. L knee ROM: 0-5-98. Pt is now able to ambulate 340' with WW and CGAx1. Pt is able to negotiate stairs very slowly, one step at a time, 2 handrails, and MinAx 1. Pt is progressing well through PT, but is still dependent upon a walker with ambulation and is unable to negotiate stairs independently which limits her mobility around her household. Plan Plan: Attempt to get 12 more visits approved to focus on L LE strengthening, gai t transition from walker to cane, and stair negotiation. Goals Goal 1:: Decrease L LE pain x 50% to aid with sleep Goal Time Frame: 4-6 Weeks Goal Progress: Progressing Goal 2:: Increase L knee ROM x 20 degrees to aid with restoring a normalized gait pattern Goal Time Frame: 4-6 Weeks Goal Progress: Goal Met Goal 3:: Pt will ambulate 100 feet to aid with ambulation in household Goal Time Frame: 4-6 Weeks Goal Progress: Goal Met Goal 4:: I with HEP Goal Time Frame: 4-6 Weeks Goal Progress: Progressing Goal 5:: Pt will be able to negotiate 10 stairs with SBA x 1 and one handrail to aid with I at home Goal 6:: Pt will be able to ambulate 340' with cane and SBA x 1 to aid with community ambulation Anticipated Interventions Patient/Client Instruction: Educate patient on: Condition, Plan of Care For the Purpose of:: To improve self management Therapeutic Exercise to Include: Strength training, Endurance training, Balance training, Flexibilty training, Gait and locomotor training, Passive ROM, Active ROM, Dynamic Lumbar Stabilization For the Purpose of:: To decrease pain, To increase ROM, To improve muscle pe rformance and motor function Cryotherapy (ice pack, ice massage): Yes For the Purpose of:: To decrease pain Please do not hesitate to contact me at [phone] by phone or if you have questions or concerns regarding this new plan of care! Sincerely, Sylvain Phillip, PT, ATC
== END 2020-08-10 19:00 | disposition home or self-care (01) ==
LOC: PT 08:00
PROVIDERS: PCP Internal Medicine; Referring Provider Orthopaedic Surgery; Visit Provider Orthopaedic Surgery
DX: Z47.89 Encounter for other orthopedic aftercare (principal)
CPT/HCPCS: 97110; 97161; 97164

== ENCOUNTER → 2020-08-16 11:56 | Outpatient (CLI) | payer MEDICAID, SELFPAY ==
[2020-08-02 08:23] VITALS: BMI 32.7
--- NOTE | 2020-08-16 11:58 | EKG12_ITS ---
Test Reason : PRE OP Blood Pressure : / mmHG Vent. Rate : 089 BPM Atrial Rate : 089 BPM P-R Int : 150 ms QRS Dur : 094 ms QT Int : 368 ms P-R-T Axes : 050 069 057 degrees QTc Int : 447 ms Normal sinus rhythm Normal ECG Confirmed by DHARMESH PLUNKETT, WELLINGTON ([id number]), dictionary editor VANIA ROCHA ([id number]) on 08/17/2020 7:12:02 AM Referred By: Christine Franz Confirmed By:WELLINGTON BARROSO MD
== END ==
PROVIDERS: PCP Internal Medicine; Referring Provider Internal Medicine; Visit Provider Internal Medicine
DX: Z01.818 Encounter for other preprocedural examination (principal); I63.9 Cerebral infarction, unspecified
CPT/HCPCS: 93005

== ENCOUNTER 2020-12-09 09:36 | Emergency (ER) | payer MEDICAID, SELFPAY ==
[2020-12-09 09:37] VITALS: BP 130/68; PULSE 88; RESP 14; TEMP 36.3; O2SAT 100; BMI 34.5
[2020-12-09 09:39] VITALS: BP 130/68; PULSE 88; RESP 14; TEMP 36.3; O2SAT 100
--- NOTE | 2020-12-09 09:55 | RAD_ITS ---
STUDY: X-RAY - LEFT FOOT CLINICAL: Postoperative left foot pain. TECHNIQUE: 3 view(s) of the foot. COMPARISON: None. FINDINGS: Normal talus, calcaneus, and tarsal bones. Normal visualized subtalar, talonavicular, calcaneocuboid, tarsal articulations. Status post bunionectomy with intact orthopedic hardware transfixing an osteotomy of the first metatarsal and bridging the first tarsometatarsal articulation. Normal metatarsophalangeal joint of the great toe. Normal interphalangeal joint of the great toe. Normal phalanges of the great toe. Normal second through fifth metatarsophalangeal joints. Normal interphalangeal joints and phalanges of the lesser toes. There is soft tissue swelling. RAD/Foot min 3 Views IMPRESSION: Status post bunionectomy with intact orthopedic hardware. Soft tissue swelling. Electronically Signed: Pako Lawson MD at 11:51 EDT Tel , Service support ,
--- NOTE | 2020-12-09 10:01 | ED.VIS.LOWEX ---
HPI History of Present Illness Chief Complaint: Wound Check Informant: patient Narrative Narrative: Postop day [address] foot surgery by Dr[address] Jerod Madsen. Reports history of foot angulation requiring realignment surgically. She reports plates were placed. She has similar surgery performed on her right foot 4 months ago without complications. Reports followed up 3 days ago in the office was told to monitor the wound. Daily dressing since then reports increasing drainage at the toe. Swelling has increased along with pain. Took her Percocet at 6 AM with minimal relief. Has 1 dose left. Denies fevers. Denies history of diabetes. Tried calling the office today unable to get through therefore came here. She reports he did not have issues with her other foot. She reports her last 3 days has noted blackened skin across the top of the wound. Reported anaphylaxis to all the cillins. Prior similar symptoms: No PFSH PFSH Medical History Arthritis Back problem Lamar's palsy Cancer Carpal tunnel syndrome Cellulitis Gastrointestinal problem Hearing problem Hives Hx of emotional problems Insect bite Irritable bowel syndrome Kidney stones [place] Neuropathy Osteoarthritis Seasonal allergies Seizures Stroke Ulcer Home Medications topiramate 200 mg tablet 200 mg PO QHS tab 08/15/18 [History Last Taken Unknown] cyclobenzaprine 10 mg tablet 10 mg PO BID PRN tab 01/23/19 [History Last Taken 02/10/20] duloxetine 30 mg capsule,delayed release 90 mg PO QHS 06/09/19 [History Last Taken Unknown] epinephrine 0.3 mg/0.3 mL injection, auto-injector 0.3 mg IM Q5-15M PRN #2 ea 08/11/19 [Rx Last Taken Unknown] prazosin 5 mg PO QHS 09/17/19 [History Last Taken Unknown] aripiprazole 30 mg tablet 40 mg PO DAILY 10/28/19 [History Last Taken Unknown] trazodone 100 mg tablet 300 mg PO QHS tab 10/28/19 [History Last Taken Unknown] celecoxib 200 mg capsule 200 mg PO DAILY 12/08/19 [History Last Taken Unknown] sumatriptan succinate See Rx Instructions PO .COMPLEX PRN 02/02/20 [History Last Taken Unknown] carbamazepine 200 mg tablet 200 mg PO BID tab 03/22/20 [History Last Taken Unknown] gabapentin 600 mg tablet 600 mg PO TID tab 03/22/20 [History Last Taken Unknown] hydroxyzine pamoate 25 mg capsule 50 mg PO TID PRN 03/22/20 [History Last Taken Unknown] Handicap Placard #1 ea 05/03/20 [Rx Last Taken Unknown] omeprazole 40 mg capsule,delayed release 40 mg PO DAILY #60 cap 05/14/20 [Rx Last Taken Unknown] montelukast 10 mg tablet 10 mg PO QHS #90 tab 07/12/20 [Rx Last Taken Unknown] dicyclomine 10 mg capsule 10 mg PO BID PRN #90 cap 09/29/20 [Rx Last Taken Unknown] levetiracetam 500 mg tablet 500 mg PO BID #180 tab 09/29/20 [Rx Last Taken Unknown] promethazine 25 mg tablet See Rx Instructions .ROUTE .COMPLEX PRN #60 tab 11/01/20 [Rx Last Taken Unknown] clindamycin HCl 300 mg PO Q6H 10 Days #40 cap 12/09/20 [Rx Last Taken Unknown] oxycodone-acetaminophen 1 tab PO Q6H 12/09/20 [History Last Taken Unknown] oxycodone-acetaminophen [Percocet] 1 tab PO Q6H PRN 3 Days #12 tab 12/09/20 [Rx Last Taken Unknown] Allergy/AdvReac Type Severity Reaction Status Date / Time venom-honey bee Allergy Severe severe Verified 12/09/20 09:40 venom-wasp Allergy Severe severe Verified 12/09/20 09:40 erythromycin base Allergy Anaphylaxis Verified 12/09/20 09:40 iodine Allergy Anaphylaxis Verified 12/09/20 09:40 latex Allergy Rash Verified 12/09/20 09:40 metronidazole [From Flagyl] Allergy Anaphylaxis Verified 12/09/20 09:40 naproxen [From Naprosyn] Allergy Anaphylaxis Verified 12/09/20 09:40 Penicillins Allergy Anaphylaxis Verified 12/09/20 09:40 shellfish derived Allergy Anaphylaxis Verified 12/09/20 09:40 adhesive AdvReac Mild BLISTERS Verified 12/09/20 09:40 All Cillins Allergy Severe Anaphylaxis Uncoded 12/09/20 09:40 Family History Father Asthma Grandfather No problems noted. Grandmother Asthma Brother Lung cancer Diabetes Hypertension Grandfather Asthma Grandmother Asthma Hypertension Mother Diabetes Aunt Diabetes Son Seizures Asthma Surgical History History of appendectomy History of bladder repair surgery History of carpal tunnel surgery of right wrist History of hysterectomy History of orthopedic surgery History of spinal surgery Hx of repair of right rotator cuff S/P left knee surgery S/P umbilical hernia repair, follow-up exam Social History Smoking Status: Current every day smoker tobacco type: cigarettes alcohol intake: never substance use type: does not use what type of physical activity do you participate in: none EXAM Physical Exam Const Vital Signs: 12/09/20 09:37 12/09/20 09:39 Temperature 97.4 F L 97.4 F L Temperature Source Temporal Temporal Pulse Rate 88 88 Respiratory Rate 14 14 Blood Pressure 130/68 H 130/68 H Blood Pressure Mean 88 88 Pulse Ox 100 100 Oxygen Delivery Method Room Air Room Air MDM MDM MDM Narrative Medical decision making narrative: Patient reports increasing drainage swelling and pain. There was drainage on the dressing of the great toe. There is some erythema around the incisional sites, there is eschar section mid wound. There is no streaking noted. There is swelling of the foot. Laboratory studies obtain x-ray for further evaluation she will be treated with a dose of morphine for pain. I did speak with her paint spraying machine operator helper, Dr. Madsen, after evaluation agrees with labs and x-rays and states he can follow-up on these and accessed the records. He did recommend antibiotics which we will plan to start clindamycin with her penicillin allergies. He will follow-up with the patient as an outpatient. 1145: Labs normal except for an elevated CRP at 23. ESR was normal. White count of 5. Three-view left foot x-ray reviewed by myself hardware is intact no soft tissue gas. Patient started on clindamycin. Prescription for clindamycin and Percocet. Follow-up with her paint spraying machine operator helper. All questions were answered. Lab Data Attestation: I reviewed the patient's lab results. Labs: Laboratory Results - last 24 hr 12/09/20 12/09/20 10:34 10:34 WBC 5.0 RBC 3.78 L Hgb 12.5 Hct 38.1 MCV 100.8 H MCH 33.1 H MCHC 32.8 RDW Std Deviation 46.2 H RDW Coeff of Karina 12.5 Plt Count 190 MPV 10.9 Immature Gran % (Auto) 0.400 Neut % (Auto) 47.5 Lymph % (Auto) 40.5 [place] % (Auto) 5.6 Eos % (Auto) 5.2 H Baso % (Auto) 0.8 Absolute Neuts (auto) 2.4 Absolute Lymphs (auto) 2.02 Nucleated RBC % 0 ESR 20 Sodium 142 Potassium 3.5 Chloride 113 H Carbon Dioxide 28.0 Anion Gap 1 L BUN 17 Creatinine 0.63 Estim Creat Clear Calc 110.81 Est GFR (MDRD) Af Amer 133 Est GFR (MDRD) Non-Af 110 BUN/Creatinine Ratio 27.1 H Glucose 99 Calcium 8.4 L C-React Prot Ext Range 23.10 H Radiography X-Ray: Read by ED Physician Diagnostic Testing: Left foot 3 view x-ray: No fracture or dislocation. Hardware intact. No soft tissue gas. Discharge Plan Triage Chief Complaint: Wound Check ED Provider: Delfino Garza Dx/Rx/DC Orders Clinical Impression: Postoperative wound infection, Acute pain of left foot Instructions: ED Wound Infection after surgery Prescriptions: New clindamycin HCl 300 mg capsule 300 mg PO Q6H 10 Days Qty: 40 RF: 0 oxycodone-acetaminophen [Percocet] 5-325 mg tablet 1 tab PO Q6H PRN (Reason: pain) 3 Days Qty: 12 RF: 0 No Action topiramate 200 mg tablet 200 mg PO QHS RF: 0 carbamazepine 200 mg tablet 200 mg PO BID RF: 0 cyclobenzaprine 10 mg tablet 10 mg PO BID PRN (Reason: BACK PAIN) RF: 0 duloxetine 30 mg capsule,delayed release(DR/EC) 90 mg PO QHS RF: 0 celecoxib [Celebrex] 200 mg capsule 200 mg PO DAILY RF: 0 aripiprazole [Abilify] 30 mg tablet 40 mg PO DAILY RF: 0 promethazine 25 mg tablet See Rx Instructions .Route .COMPLEX PRN (Reason: Nausea) Qty: 60 RF: 1 trazodone 100 mg tablet 300 mg PO QHS RF: 0 gabapentin 600 mg tablet 600 mg PO TID RF: 0 hydroxyzine pamoate 25 mg capsule 50 mg PO TID PRN (Reason: Anxiety) RF: 0 prazosin 5 MG capsule 5 mg PO QHS RF: 0 sumatriptan succinate 50 MG tablet See Rx Instructions PO .COMPLEX PRN (Reason: migraines) RF: 0 oxycodone-acetaminophen 5-325 mg tablet 1 tab PO Q6H RF: 0 epinephrine [EpiPen 2-[place]mond] 0.3 mg/0.3 mL auto-injector 0.3 mg IM Q5-15M PRN (Reason: anaphylaxis) Qty: 2 RF: 3 (DME) Handicap Placard See Rx Instructions .Route .MEDSUPPLY Qty: 1 RF: 0 omeprazole 40 mg capsule,delayed release(DR/EC) 40 mg PO DAILY Qty: 60 RF: 2 montelukast 10 mg tablet 10 mg PO QHS Qty: 90 RF: 3 dicyclomine 10 mg capsule 10 mg PO BID PRN (Reason: abdominal discomfort) Qty: 90 RF: 1 levetiracetam 500 mg tablet 500 mg PO BID Qty: 180 RF: 1 Primary Care Provider: Gayle Munoz Referrals: Gayle Munoz MD [Primary Care Provider] - Jerod Madsen DPM [STAFF PHYSICIAN] - 3-5 Days Disposition Disposition: Home, Self Care
[2020-12-09] MEDS: Morphine 4 MG/ML Syringe IV (10:31)
[2020-12-09 10:50] LABS: Absolute Lymphocyte Count 2.02 X10^3/uL (0.83-4.51); Absolute Neutrophil Count 2.4 X10^3/uL (2.0-7.7); Basophil# 0.04 X10^3/uL; Basophil% 0.8 % (0-1); Eosinophil# 0.26 X10^3/uL; Eosinophils% 5.2 % (0-5); Hematocrit 38.1 % (37-47); Hemoglobin 12.5 g/dL (12.0-15.0); Lymphocyte # 2.02 X10^3/ul (0.83-4.51); Lymphocyte % 40.5 % (19-41); Mean Corp Hgb Conc 32.8 g/dL (32-36); Mean Corpuscular Hgb 33.1 pg (27.0-32.0); Mean Corpuscular Volume 100.8 fL (81-99); Mean Platelet Vol. 10.9 fl (6.2-12.0); Monocyte# 0.28 X10^3/uL; Monocyte% 5.6 % (0-10); NRBC Flagged by Analyzer 0 % (0-5); Neutrophil # 2.37 X10^3/uL (2.7-7.7); Neutrophil % 47.5 % (47-70); Platelet Count 190 K/mm3 (150-450); RBC Distribution Width CV 12.5 % (11.6-14.6); RBC Distribution Width SD 46.2 fl (35.1-43.9); Red Blood Count 3.78 M/mm3 (4.2-5.4)
[2020-12-09 10:57] LABS: Erythrocyte Sedimentation Rate 20 mm/hr (0-30)
[2020-12-09 11:02] LABS: Anion Gap 1 (5-15); BUN 17 mg/dL (7-18); BUN/Creat Ratio 27.1 RATIO (10-20); Calcium,Total 8.4 mg/dL (8.5-10.1); Chloride 113 mmol/L (98-107); Creatinine, Serum 0.63 mg/dL (0.55-1.02); EST Glomerular Filtration Rate 110 mL/min (>60); Est Glom Filt Rate - Afr Amer 133 mL/min (>60); Estimated Creatinine Clearance 110.81 ml/min; Glucose 99 mg/dL (74-106); Potassium 3.5 mmol/L (3.5-5.1); Sodium Level 142 mmol/L (136-145)
[2020-12-09] MEDS: Clindamycin HCl 150 MG Capsule 300 MG PO (11:35)
[2020-12-09 12:18] VITALS: BP 143/98; PULSE 84; RESP 22; O2SAT 97
--- NOTE | 2020-12-09 12:19 | ED.RN ---
THIS NURSE REVIEWED D/C INSTRUCTIONS WITH PT. PT VERBALIZED UNDERSTANDING OF INSTRUCTIONS. DRESSING APPLIED. IV D/C. IV CATHETER INTACT. PT TOLERATED WELL. PT DENIES FURTHER NEEDS OR QUESTIONS AT THIS TIEM
== END 2020-12-09 12:20 | disposition home or self-care (01) ==
PROVIDERS: Emergency Provider Emergency Medicine; PCP Internal Medicine
DX: T81.41XA Infection following a procedure, superficial incisional surgical site, initial encounter (principal); M79.672 Pain in left foot; F17.210 Nicotine dependence, cigarettes, uncomplicated; Z79.899 Other long term (current) drug therapy
CPT/HCPCS: 73630; 80048; 85025; 85652; 86140; 96374; 99284; A4216

== ENCOUNTER 2020-12-10 20:29 | Emergency (ER) | payer MEDICAID, SELFPAY ==
[2020-12-10 20:31] VITALS: BP 124/71; PULSE 102; RESP 16; TEMP 36.7; O2SAT 96; BMI 33.0
--- NOTE | 2020-12-10 20:47 | EDS_ITS ---
HPI History of Present Illness Chief Complaint: Lower Extremity Injury Detail of Chief Complaint: Postop left foot pain Informant: patient Occured/Mechanism Mechanism/Context: Yes other see comment below Comment: Postop pain and drainage Onset/Context/Timing Onset: Yesterday Context: Gradual Onset Timing: Continuous Location: Left dorsal medial foot Current Severity: Mild Maximum Severity: Severe Worsened by: Weightbearing Relieved by: Nothing nothing Associated Symptoms Associated Symptoms: Positive for Loss of Funtion; Negative for Parasthesia and Weakness Narrative Narrative: Patient is a 45-year-old woman who presents with postop pain. She attempted to get a hold of the tooth cutter contact wheel who operated on. She states he is on vacation until Sunday. She denies fever, chills night sweats. She is concerned because there is drainage. The toenail of the left great toe was removed. There are 2 incisions medial dorsal aspect of the foot. She noted drainage. She states she does have pain medicine at home. She is not diabetic. She is on no immunosuppressive meds. Tetanus Immunization: <5 years Prior similar symptoms: Yes Recent Illness/Hospitalization: Yes PFSH [facility] Medical History Arthritis Back problem Lamar's palsy Cancer Carpal tunnel syndrome Cellulitis Gastrointestinal problem Hearing problem Hives Hx of emotional problems Insect bite Irritable bowel syndrome Kidney stones Lipoma Neuropathy Osteoarthritis Seasonal allergies Seizures Stroke Ulcer Home Medications topiramate 200 mg tablet 200 mg PO QHS tab 08/15/18 [History Last Taken Unknown] cyclobenzaprine 10 mg tablet 10 mg PO BID PRN tab 01/23/19 [History Last Taken 02/10/20] duloxetine 30 mg capsule,delayed release 90 mg PO QHS 06/09/19 [History Last Taken Unknown] epinephrine 0.3 mg/0.3 mL injection, auto-injector 0.3 mg IM Q5-15M PRN #2 ea 08/11/19 [Rx Last Taken Unknown] prazosin 5 mg PO QHS 09/17/19 [History Last Taken Unknown] aripiprazole 30 mg tablet 40 mg PO DAILY 10/28/19 [History Last Taken Unknown] trazodone 100 mg tablet 300 mg PO QHS tab 10/28/19 [History Last Taken Unknown] celecoxib 200 mg capsule 200 mg PO DAILY 12/08/19 [History Last Taken Unknown] sumatriptan succinate See Rx Instructions PO .COMPLEX PRN 02/02/20 [History Last Taken Unknown] carbamazepine 200 mg tablet 200 mg PO BID tab 03/22/20 [History Last Taken Unknown] gabapentin 600 mg tablet 600 mg PO TID tab 03/22/20 [History Last Taken Unknown] hydroxyzine pamoate 25 mg capsule 50 mg PO TID PRN 03/22/20 [History Last Taken Unknown] Handicap Placard #1 ea 05/03/20 [Rx Last Taken Unknown] omeprazole 40 mg capsule,delayed release 40 mg PO DAILY #60 cap 05/14/20 [Rx Last Taken Unknown] montelukast 10 mg tablet 10 mg PO QHS #90 tab 07/12/20 [Rx Last Taken Unknown] dicyclomine 10 mg capsule 10 mg PO BID PRN #90 cap 09/29/20 [Rx Last Taken Unknown] levetiracetam 500 mg tablet 500 mg PO BID #180 tab 09/29/20 [Rx Last Taken Unknown] promethazine 25 mg tablet See Rx Instructions .ROUTE .COMPLEX PRN #60 tab 11/01/20 [Rx Last Taken Unknown] clindamycin HCl 300 mg PO Q6H 10 Days #40 cap 12/09/20 [Rx Last Taken Unknown] oxycodone-acetaminophen 1 tab PO Q6H 12/09/20 [History Last Taken Unknown] oxycodone-acetaminophen [Percocet] 1 tab PO Q6H PRN 3 Days #12 tab 12/09/20 [Rx Last Taken Unknown] Allergy/AdvReac Type Severity Reaction Status Date / Time venom-honey bee Allergy Severe severe Verified 12/10/20 20:35 venom-wasp Allergy Severe severe Verified 12/10/20 20:35 erythromycin base Allergy Anaphylaxis Verified 12/10/20 20:35 iodine Allergy Anaphylaxis Verified 12/10/20 20:35 latex Allergy Rash Verified 12/10/20 20:35 metronidazole [From Flagyl] Allergy Anaphylaxis Verified 12/10/20 20:35 naproxen [From Naprosyn] Allergy Anaphylaxis Verified 12/10/20 20:35 Penicillins Allergy Anaphylaxis Verified 12/10/20 20:35 shellfish derived Allergy Anaphylaxis Verified 12/10/20 20:35 adhesive AdvReac Mild BLISTERS Verified 12/10/20 20:35 All Cillins Allergy Severe Anaphylaxis Uncoded 12/10/20 20:35 Family History Father Asthma Grandfather No problems noted. Grandmother Asthma Brother Lung cancer Diabetes Hypertension Grandfather Asthma Grandmother Asthma Hypertension Mother Diabetes Aunt Diabetes Son Seizures Asthma Surgical History History of appendectomy History of bladder repair surgery History of carpal tunnel surgery of right wrist History of hysterectomy History of orthopedic surgery History of spinal surgery Hx of repair of right rotator cuff S/P left knee surgery S/P umbilical hernia repair, follow-up exam Social History Smoking Status: Current every day smoker tobacco type: cigarettes alcohol intake: never substance use type: does not use what type of physical activity do you participate in: none ROS ROS ED Constitutional Constitutional ED: Denies chills, fever(s), subjective or sweats Eyes Eyes: Denies blurry vision or change in vision Cardiovascular Cardiovascular: Denies chest pain, palpitations or racing heartbeat Respiratory/Chest Respiratory/Chest: Denies cough, dyspnea or dyspnea on exertion Gastrointestinal Gastrointestinal: Denies abdominal pain or vomiting Genitourinary Genitourinary ED: Denies dysuria, hematuria or urinary frequency Musculoskeletal Musculoskeletal: Denies arthralgias, myalgias or neck pain Integumentary Denies abscess, Abrasions or rash Hematologic/Lymphatic Hematologic/Lymphatic: Denies easy bleeding or easy bruising EXAM Physical Exam Const Vital Signs: 12/10/20 20:31 Temperature 98.1 F Temperature Source Oral Pulse Rate 102 H Respiratory Rate 16 Blood Pressure 124/71 H Blood Pressure Mean 88 Pulse Ox 96 Oxygen Delivery Method Room Air Negative for well nourished or well developed General Appearance ED: NAD; Negative for well developed HEENT normocephalic and atraumatic Eyes PERRL Neck full ROM Resp normal respiratory effort and clear to auscultation bilaterally Cardio regular rate, regular rhythm, S1 normal heart sound, S2 normal heart sound and no murmurs Extremity Negative for normal to inspection or full ROM Extremity Narrative: Patient has discoloration with soft tissue swelling. There is serosanguineous drainage from the great toe and distal dorsal incision site. There is no erythema, warmth, induration. There is no lymphangitis. There is no popliteal lymphadenopathy. General Extremety ED: Yes edema; Negative for cyanosis or weight-bearing difficulty General Extremity: edema; Negative for cyanosis or weight-bearing difficulty Neuro oriented x3 and CN's II-XII intact bilaterally Skin Lesions: no lesions Rashes: no rashes Trauma: other Wound as previously described MDM MDM MDM Narrative Medical decision making narrative: Patient has postop pain. She was treated with opiate analgesia and wound care. She was discharged to home to follow-up with her tooth cutter contact wheel. Discharge Plan Triage Chief Complaint: Lower Extremity Injury Other Complaint: Wound ED Provider: Daniel Pena Dx/Rx/DC Orders Clinical Impression: Postoperative pain Instructions: ED Post Op Wound Check, Pain Prescriptions: No Action topiramate 200 mg tablet 200 mg PO QHS RF: 0 carbamazepine 200 mg tablet 200 mg PO BID RF: 0 cyclobenzaprine 10 mg tablet 10 mg PO BID PRN (Reason: BACK PAIN) RF: 0 duloxetine 30 mg capsule,delayed release(DR/EC) 90 mg PO QHS RF: 0 celecoxib [Celebrex] 200 mg capsule 200 mg PO DAILY RF: 0 aripiprazole [Abilify] 30 mg tablet 40 mg PO DAILY RF: 0 promethazine 25 mg tablet See Rx Instructions .Route .COMPLEX PRN (Reason: Nausea) Qty: 60 RF: 1 trazodone 100 mg tablet 300 mg PO QHS RF: 0 gabapentin 600 mg tablet 600 mg PO TID RF: 0 hydroxyzine pamoate 25 mg capsule 50 mg PO TID PRN (Reason: Anxiety) RF: 0 prazosin 5 MG capsule 5 mg PO QHS RF: 0 sumatriptan succinate 50 MG tablet See Rx Instructions PO .COMPLEX PRN (Reason: migraines) RF: 0 oxycodone-acetaminophen 5-325 mg tablet 1 tab PO Q6H RF: 0 clindamycin HCl 300 mg capsule 300 mg PO Q6H 10 Days Qty: 40 RF: 0 oxycodone-acetaminophen [Percocet] 5-325 mg tablet 1 tab PO Q6H PRN (Reason: pain) 3 Days Qty: 12 RF: 0 epinephrine [EpiPen 2-Raymond] 0.3 mg/0.3 mL auto-injector 0.3 mg IM Q5-15M PRN (Reason: anaphylaxis) Qty: 2 RF: 3 (DME) Handicap Placard See Rx Instructions .Route .MEDSUPPLY Qty: 1 RF: 0 omeprazole 40 mg capsule,delayed release(DR/EC) 40 mg PO DAILY Qty: 60 RF: 2 montelukast 10 mg tablet 10 mg PO QHS Qty: 90 RF: 3 dicyclomine 10 mg capsule 10 mg PO BID PRN (Reason: abdominal discomfort) Qty: 90 RF: 1 levetiracetam 500 mg tablet 500 mg PO BID Qty: 180 RF: 1 Primary Care Provider: Gayle Munoz Referrals: Gayle Munoz MD [Primary Care Provider] - Doctor,Your [STAFF PHYSICIAN] - Disposition Disposition: Home, Self Care
[2020-12-10] MEDS: oxyCODONE 5 MG Tablet PO (20:59)
== END 2020-12-10 21:01 | disposition home or self-care (01) ==
PROVIDERS: Emergency Provider Emergency Medicine; PCP Internal Medicine
DX: G89.18 Other acute postprocedural pain (principal); F17.210 Nicotine dependence, cigarettes, uncomplicated; Z79.899 Other long term (current) drug therapy
CPT/HCPCS: 99284

== ENCOUNTER 2020-12-30 15:48 | Emergency (ER) | payer MEDICAID, SELFPAY ==
[2020-12-30 15:49] VITALS: BP 119/61; PULSE 90; RESP 14; TEMP 35.5; O2SAT 100; BMI 32.2
[2020-12-30 16:30] VITALS: O2SAT 97
--- NOTE | 2020-12-30 16:58 | CT_ITS ---
STUDY: CT BRAIN WITHOUT CONTRAST REASON FOR EXAM: Female, 45 years old. Fall 2 days ago. Pain in the back of head and neck. RADIATION DOSAGE (If Supplied By Facility): CTDIvol = ( 44.99 ) mGy, DLP = ( 779.24 ) mGycm TECHNIQUE: Transaxial CT imaging of the brain was performed without administration of intravenous contrast material. Individualized dose optimization techniques were used for this CT. COMPARISON: 12/01/2019. FINDINGS: Normal soft tissue structures. Normal calvarium. Normal size ventricles and extra-axial spaces for the patient''s age. Normal white matter tracts of the cerebral hemispheres. Normal basal ganglia and thalami. Normal brainstem. Normal cerebellum. There is no intracranial hemorrhage. There are no findings of an acute ischemic infarction. Normal visualized paranasal sinuses. CT/Brain/Head without Contrast IMPRESSION: Normal unenhanced CT scan of the brain. No interval change Electronically Signed: Bear Monaco DO at 17:51 EDT Tel [phone], Service support ,
--- NOTE | 2020-12-30 16:58 | CT_ITS ---
STUDY: CT CERVICAL SPINE WITHOUT CONTRAST REASON FOR EXAM: Female, 45 years old. History of fall 2 days ago. Pain in back of the neck. RADIATION DOSAGE (If Supplied By Facility): CTDIvol = ( 27.67 ) mGy, DLP = ( 488.85 ) mGycm TECHNIQUE: High resolution transaxial imaging was performed without contrast material. Sagittal and coronal images were reconstructed. Individualized dose optimization techniques were used for this CT. COMPARISON: Cervical spine, 04/30/2019. FINDINGS: Normal craniovertebral junction. Normal anterior atlantoaxial articulation. Normal odontoid process. Normal cervical lordosis. Normal vertebral bodies and posterior osseous elements. C2-3: Normal endplates. Normal disc height and morphology. No facet joint degenerative change, most marked on the right. Normal central canal and intervertebral neuroforamina. C3-4: Normal endplates. Normal disc height and morphology. Mild facet joint degenerative change. Normal central canal and intervertebral neuroforamina. C4-5: Normal endplates. Normal disc height and morphology. No facet joint degenerative change. Normal central canal and intervertebral neuroforamina. C5-6: Normal endplates. Normal disc height and morphology. Minimal facet joint degenerative change. Normal central canal and intervertebral neuroforamina. C6-7: Endplate spondylosis.. Normal disc height and morphology. Mild facet joint degenerative change. Normal central canal and intervertebral neuroforamina. C7-T1: Normal endplates. Normal disc height and morphology. Normal central canal and intervertebral neuroforamina. Normal visualized soft tissue structures. CT/Spine Cervical without Contras IMPRESSION: Minimal facet joint degenerative change without fracture or subluxation. Note: MRI is more sensitive than CT in detecting cord injury, ligamentous injury and epidural hematoma. If there is continued clinical concern for any of these entities, MRI should be considered. Electronically Signed: Bear Monaco DO at 18:00 EDT Tel [phone], Service support ,
--- NOTE | 2020-12-30 17:14 | EDS_ITS ---
HPI History of Present Illness Chief Complaint: Fall Narrative Narrative: Patient is a 45-year-old female who had surgery on her left foot a few weeks ago. She states secondary to the surgery she has a postoperative boot and has to walk with a walker. She reports 2 days ago she was walking down the stairs when she caught her boot on one of the lips of the floorboards. She states this caused her to lose her balance and fall and she landed striking her head and back. She denies any loss of consciousness or blood thinner use. She states as time is past she has had persistent pain and went and saw her family doctor today. She states that she was concerned of underlying head injury or a spine injury and therefore sent her in for evaluation. [facility] Medical History Arthritis Back problem Lamar's palsy Blurry vision, left eye Cancer Carpal tunnel syndrome Cellulitis Dizziness Fall Fibromyalgia Gastrointestinal problem Headache Hearing problem Hives Hx of emotional problems Insect bite Irritable bowel syndrome Kidney stones Lipoma Neuropathy Osteoarthritis Seasonal allergies Seizures Stroke Ulcer Home Medications topiramate 200 mg tablet 200 mg PO QHS tab 08/15/18 [History Last Taken Unknown] cyclobenzaprine 10 mg tablet 10 mg PO BID PRN tab 01/23/19 [History Last Taken 02/10/20] duloxetine 30 mg capsule,delayed release 90 mg PO QHS 06/09/19 [History Last Taken Unknown] epinephrine 0.3 mg/0.3 mL injection, auto-injector 0.3 mg IM Q5-15M PRN #2 ea 08/11/19 [Rx Last Taken Unknown] prazosin 5 mg PO QHS 09/17/19 [History Last Taken Unknown] aripiprazole 30 mg tablet 40 mg PO DAILY 10/28/19 [History Last Taken Unknown] trazodone 100 mg tablet 300 mg PO QHS tab 10/28/19 [History Last Taken Unknown] carbamazepine 200 mg tablet 200 mg PO BID tab 03/22/20 [History Last Taken Unknown] gabapentin 600 mg tablet 600 mg PO TID tab 03/22/20 [History Last Taken Unknown] hydroxyzine pamoate 25 mg capsule 50 mg PO TID PRN 03/22/20 [History Last Taken Unknown] Handicap Placard #1 ea 05/03/20 [Rx Last Taken Unknown] omeprazole 40 mg capsule,delayed release 40 mg PO DAILY #60 cap 05/14/20 [Rx Last Taken Unknown] promethazine 25 mg tablet See Rx Instructions .ROUTE .COMPLEX PRN #60 tab 11/01/20 [Rx Last Taken Unknown] dicyclomine 10 mg capsule 10 mg PO BID PRN #60 cap 12/27/20 [Rx Last Taken Unknown] Ultram 50 mg BID 12/30/20 [History Last Taken Unknown] hydrocodone-acetaminophen 1 tab PO Q6H PRN 3 Days #12 tab 12/30/20 [Rx Last Taken Unknown] Allergy/AdvReac Type Severity Reaction Status Date / Time venom-honey bee Allergy Severe severe Verified 12/30/20 16:40 venom-wasp Allergy Severe severe Verified 12/30/20 16:40 erythromycin base Allergy Anaphylaxis Verified 12/30/20 16:40 iodine Allergy Anaphylaxis Verified 12/30/20 16:40 latex Allergy Rash Verified 12/30/20 16:40 metronidazole [From Flagyl] Allergy Anaphylaxis Verified 12/30/20 16:40 naproxen [From Naprosyn] Allergy Anaphylaxis Verified 12/30/20 16:40 Penicillins Allergy Anaphylaxis Verified 12/30/20 16:40 shellfish derived Allergy Anaphylaxis Verified 12/30/20 16:40 adhesive AdvReac Mild BLISTERS Verified 12/30/20 16:40 All Cillins Allergy Severe Anaphylaxis Uncoded 12/30/20 16:40 Family History Father Asthma Grandfather No problems noted. Grandmother Asthma Brother Lung cancer Diabetes Hypertension Grandfather Asthma Grandmother Asthma Hypertension Mother Diabetes Aunt Diabetes Son Seizures Asthma Surgical History History of appendectomy History of bladder repair surgery History of carpal tunnel surgery of right wrist History of hysterectomy History of orthopedic surgery History of spinal surgery Hx of repair of right rotator cuff S/P left knee surgery S/P umbilical hernia repair, follow-up exam Social History Smoking Status: Current every day smoker tobacco type: cigarettes alcohol intake: never substance use type: does not use what type of physical activity do you participate in: none ROS ROS ED Constitutional Constitutional ED: Denies chills or fever(s) Eyes Eyes: Denies change in vision ENT ENT ED: Denies sore throat Cardiovascular Cardiovascular: Denies chest pain Respiratory/Chest Respiratory/Chest: Denies cough or dyspnea Gastrointestinal Gastrointestinal: Denies abdominal pain, diarrhea, nausea or vomiting Genitourinary Genitourinary ED: Denies dysuria Musculoskeletal Musculoskeletal: Reports other Details: Positive neck and back pain ; Denies myalgias Integumentary Denies rash Neurologic Neurologic: Denies headache(s) Hematologic/Lymphatic Hematologic/Lymphatic: Denies easy bleeding or easy bruising EXAM Physical Exam Const Vital Signs: 12/30/20 15:49 12/30/20 18:33 Temperature 96 F L Temperature Source Temporal Pulse Rate 90 74 Respiratory Rate 14 14 Blood Pressure 119/61 112/67 Blood Pressure Mean 80 82 Pulse Ox 100 97 Oxygen Delivery Method Room Air Room Air Positive well nourished and well developed General Appearance ED: well developed HEENT Reports TM's clear and moist mucous membranes HEENT Narrative: There is a 1 x 2 hematoma along the right aspect of the occiput but no signs of depressed or basilar skull fracture Tympanic Membrane ED: Yes TM's clear Eyes PERRL and EOMs intact bilaterally Neck supple Neck Narrative: There is midline pain on palpation without bony deformity or step-off of the cervical spine Chest Wall palpation of chest normal Resp normal respiratory effort and clear to auscultation bilaterally Cardio regular rate and regular rhythm GI normal to inspection, nondistended, normoactive bowel sounds, non-tender and non-distended Auscultation: normoactive bowel sounds Palpation: soft Back/Spine Back/Spine Narrative: No bony deformity step-off of the thoracic or lumbar spine but there is midline pain palpation over top the thoracic spine region Extremity normal to inspection Extremity Narrative: Postoperative changes to the left lower leg otherwise normal Neuro oriented x3 and CN's II-XII intact bilaterally Sensorium / Orientation: alert Psych mental status grossly normal Skin no rashes or lesions noted MDM MDM MDM Narrative Medical decision making narrative: Patient presented to the ER with report of mechanical fall and therefore there is no need for cardiac or syncope work-up. As she reported persistent head and neck and upper back pains elect to perform CT scans as well as an x-ray. Imaging studies revealed no acute traumatic finding. On reevaluation she is resting comfortably and with imaging studies showing no underlying skull fracture or brain bleed or broken spine she is safe for discharge Radiography Diagnostic Testing: Radiology Impression Brain CT 12/30/20 16:58 IMPRESSION: Normal unenhanced CT scan of the brain. No interval change Electronically Signed: Bear SacramentoDO cris at 17:51 EDT Tel [phone], Service support , Cervical Spine CT 12/30/20 16:58 IMPRESSION: Minimal facet joint degenerative change without fracture or subluxation. Note: MRI is more sensitive than CT in detecting cord injury, ligamentous injury and epidural hematoma. If there is continued clinical concern for any of these entities, MRI should be considered. Electronically Signed: Bear Monaco DO at 18:00 EDT Tel [phone], Service support , Thoracic Spine X-Ray 12/30/20 17:45 IMPRESSION: Stable degenerative changes without acute abnormality. Electronically Signed: Bear Monaco DO at 18:14 EDT Tel [phone], Service support , Discharge Plan Triage Chief Complaint: Fall ED Provider: Luis Ty Dx/Rx/DC Orders Clinical Impression: Closed head injury, Cervical muscle strain, Contusion of thoracic spine Instructions: ED Head Injury (Adult), ED Neck Sprain or Strain Prescriptions: New hydrocodone-acetaminophen 5-325 mg tablet 1 tab PO Q6H PRN (Reason: pain) 3 Days Qty: 12 RF: 0 No Action topiramate 200 mg tablet 200 mg PO QHS RF: 0 carbamazepine 200 mg tablet 200 mg PO BID RF: 0 cyclobenzaprine 10 mg tablet 10 mg PO BID PRN (Reason: BACK PAIN) RF: 0 duloxetine 30 mg capsule,delayed release(DR/EC) 90 mg PO QHS RF: 0 aripiprazole [Abilify] 30 mg tablet 40 mg PO DAILY RF: 0 promethazine 25 mg tablet See Rx Instructions .Route .COMPLEX PRN (Reason: Nausea) Qty: 60 RF: 1 trazodone 100 mg tablet 300 mg PO QHS RF: 0 gabapentin 600 mg tablet 600 mg PO TID RF: 0 hydroxyzine pamoate 25 mg capsule 50 mg PO TID PRN (Reason: Anxiety) RF: 0 prazosin 5 MG capsule 5 mg PO QHS RF: 0 Ultram 50 mg BID RF: 0 epinephrine [EpiPen 2-Raymond] 0.3 mg/0.3 mL auto-injector 0.3 mg IM Q5-15M PRN (Reason: anaphylaxis) Qty: 2 RF: 3 (DME) Handicap Placard See Rx Instructions .Route .MEDSUPPLY Qty: 1 RF: 0 omeprazole 40 mg capsule,delayed release(DR/EC) 40 mg PO DAILY Qty: 60 RF: 2 dicyclomine 10 mg capsule 10 mg PO BID PRN (Reason: abdominal discomfort) Qty: 60 RF: 0 Primary Care Provider: Gayle Munoz Referrals: Gayle Munoz MD [Primary Care Provider] - Disposition Disposition: Home, Self Care
[2020-12-30] MEDS: Ondansetron ODT 4 MG Tablet PO (17:15)
[2020-12-30] MEDS: morphine 10 MG/ML Syringe 8 MG IM (17:16)
--- NOTE | 2020-12-30 17:45 | RAD_ITS ---
STUDY: X-RAY - THORACIC SPINE REASON FOR EXAM: Female, 45 years old. Back pain after falling several days ago. TECHNIQUE: 3 view(s) of the thoracic spine were obtained. COMPARISON: 05/03/2019. FINDINGS: Normal kyphosis of the thoracic spine. There is no substantial scoliosis. There is multilevel endplate spondylosis of the thoracic vertebrae. There is multilevel disc space narrowing of the thoracic spine. There is no evidence of acute fracture or loss of vertebral axial height. There is evidence of a dorsal column stimulator with its electrodes overlying the eighth through 10th vertebra. This appears unchanged. The soft tissue structures are unremarkable. RAD/Thoracic Spine 3 Views IMPRESSION: Stable degenerative changes without acute abnormality. Electronically Signed: Bear Monaco DO at 18:14 EDT Tel [phone], Service support ,
[2020-12-30 18:33] VITALS: BP 112/67; PULSE 74; RESP 14; O2SAT 97
[2020-12-30 19:07] VITALS: BP 126/68; PULSE 83; RESP 14; TEMP 36.6; O2SAT 99
== END 2020-12-30 19:10 | disposition home or self-care (01) ==
PROVIDERS: Emergency Provider Emergency Medicine; PCP Internal Medicine
DX: S09.90XA Unspecified injury of head, initial encounter (principal); S16.1XXA Strain of muscle, fascia and tendon at neck level, initial encounter; S24.109A Unspecified injury at unspecified level of thoracic spinal cord, initial encounter; F17.210 Nicotine dependence, cigarettes, uncomplicated; W01.0XXA Fall on same level from slipping, tripping and stumbling without subsequent striking against object, initial encounter
CPT/HCPCS: 70450; 72072; 72125; 96372; 99282

== ENCOUNTER 2021-01-05 10:45 | Emergency (ER) | payer MEDICAID, SELFPAY ==
[2021-01-05 10:46] VITALS: BP 122/71; PULSE 96; RESP 17; TEMP 36.6; O2SAT 99; BMI 34.4
--- NOTE | 2021-01-05 11:00 | CT_ITS ---
STUDY: CT ABDOMEN AND PELVIS WITHOUT CONTRAST REASON FOR EXAM: Female, 45 years old. Right flank pain. History of kidney stones. RADIATION DOSAGE (If Supplied By Facility): CTDIvol = ( 17.64 ) mGy, DLP = ( 864.41 ) mGycm TECHNIQUE: Transaxial images were obtained from the dome of the diaphragm to the symphysis pubis without oral contrast, and without intravenous contrast. Sagittal and coronal images were reconstructed. Individualized dose optimization techniques were used for this CT. COMPARISON: Comparison is made with prior study dated 05/27/2020. FINDINGS: The visualized lung bases are unremarkable. The visualized portions of the heart are within normal limits. Normal liver. Normal gallbladder and extrahepatic biliary system. Normal spleen. Normal pancreas. Normal bilateral adrenal glands. Normal right kidney. Normal left kidney. Normal visualized stomach. Normal small intestine. There are multiple colonic diverticula consistent with diverticulosis. There are surgical clips in the region of the appendix consistent with a prior appendectomy. There is scattered atherosclerotic calcification of the abdominal aorta, without a demonstrated aneurysm. Normal inferior vena cava. Normal retroperitoneum. Normal urinary bladder. There is absence of the uterus consistent with a prior hysterectomy. Normal abdominal wall. The patient is status post anterior fusion at L5-S1. A left-sided TENS unit is seen. CT/Abdomen/Pelvis without Cont IMPRESSION: Sigmoid diverticulosis. No acute abnormality is seen. Electronically Signed: Amado Bernardo MD at 11:57 EDT , Service support ,
--- NOTE | 2021-01-05 11:01 | EX.ED.DYSGE1 ---
HPI History of Present Illness Chief Complaint: Flank Pain Detail of Chief Complaint: Right flank pain that started 2 days ago Informant: patient Narrative Narrative: Patient has history of right-sided flank pain that started 2 days ago. Patient complains of nausea and vomiting frequently. She denies any diarrhea. Patient has history of kidney stones and thinks he might be passing a kidney stone. She denies hematuria or dysuria. Patient has history of degenerative disc disease, neuropathy, fibromyalgia. Prior similar symptoms: Yes PFSH PFSH Medical History Arthritis Back problem Lamar's palsy Blurry vision, left eye Cancer Carpal tunnel syndrome Cellulitis Dizziness Fall Fibromyalgia Gastrointestinal problem Headache Hearing problem Hives Hx of emotional problems Insect bite Irritable bowel syndrome Kidney stones Lipoma Neuropathy Osteoarthritis Seasonal allergies Seizures Stroke Ulcer Home Medications topiramate 200 mg tablet 200 mg PO QHS tab 08/15/18 [History Last Taken Unknown] cyclobenzaprine 10 mg tablet 10 mg PO BID PRN tab 01/23/19 [History Last Taken 02/10/20] duloxetine 30 mg capsule,delayed release 90 mg PO QHS 06/09/19 [History Last Taken Unknown] epinephrine 0.3 mg/0.3 mL injection, auto-injector 0.3 mg IM Q5-15M PRN #2 ea 08/11/19 [Rx Last Taken Unknown] prazosin 5 mg PO QHS 09/17/19 [History Last Taken Unknown] aripiprazole 30 mg tablet 40 mg PO DAILY 10/28/19 [History Last Taken Unknown] trazodone 100 mg tablet 300 mg PO QHS tab 10/28/19 [History Last Taken Unknown] carbamazepine 200 mg tablet 200 mg PO BID tab 03/22/20 [History Last Taken Unknown] gabapentin 600 mg tablet 600 mg PO TID tab 03/22/20 [History Last Taken Unknown] hydroxyzine pamoate 25 mg capsule 50 mg PO TID PRN 03/22/20 [History Last Taken Unknown] Handicap Placard #1 ea 05/03/20 [Rx Last Taken Unknown] omeprazole 40 mg capsule,delayed release 40 mg PO DAILY #60 cap 05/14/20 [Rx Last Taken Unknown] promethazine 25 mg tablet See Rx Instructions .ROUTE .COMPLEX PRN #60 tab 11/01/20 [Rx Last Taken Unknown] dicyclomine 10 mg capsule 10 mg PO BID PRN #60 cap 12/27/20 [Rx Last Taken Unknown] Ultram 50 mg BID 12/30/20 [History Last Taken Unknown] hydrocodone-acetaminophen 1 tab PO Q6H PRN 3 Days #12 tab 12/30/20 [Rx Last Taken Unknown] hydrocodone-acetaminophen 1 tab PO Q6H PRN 3 Days #12 tab 12/30/20 [Rx Last Taken Unknown] hydrocodone-acetaminophen 1 tab PO Q4H PRN PRN 2 Days #10 tablet 01/05/21 [Rx Last Taken Unknown] Allergy/AdvReac Type Severity Reaction Status Date / Time venom-honey bee Allergy Severe severe Verified 01/05/21 10:48 venom-wasp Allergy Severe severe Verified 01/05/21 10:48 erythromycin base Allergy Anaphylaxis Verified 01/05/21 10:48 iodine Allergy Anaphylaxis Verified 01/05/21 10:48 latex Allergy Rash Verified 01/05/21 10:48 metronidazole [From Flagyl] Allergy Anaphylaxis Verified 01/05/21 10:48 naproxen [From Naprosyn] Allergy Anaphylaxis Verified 01/05/21 10:48 Penicillins Allergy Anaphylaxis Verified 01/05/21 10:48 shellfish derived Allergy Anaphylaxis Verified 01/05/21 10:48 adhesive AdvReac Mild BLISTERS Verified 01/05/21 10:48 All Cillins Allergy Severe Anaphylaxis Uncoded 01/05/21 10:48 Family History Father Asthma Grandfather No problems noted. Grandmother Asthma Brother Lung cancer Diabetes Hypertension Grandfather Asthma Grandmother Asthma Hypertension Mother Diabetes Aunt Diabetes Son Seizures Asthma Surgical History History of appendectomy History of bladder repair surgery History of carpal tunnel surgery of right wrist History of hysterectomy History of orthopedic surgery History of spinal surgery Hx of repair of right rotator cuff S/P left knee surgery S/P umbilical hernia repair, follow-up exam Social History Smoking Status: Current every day smoker tobacco type: cigarettes alcohol intake: never substance use type: does not use what type of physical activity do you participate in: none ROS ROS ED Constitutional Constitutional ED: Reports systems reviewed and no addt'l complaints, except as documented; Denies body ache(s), change in weight or chills Eyes Eyes: Denies acute decrease in peripheral vision, change in vision, double vision or loss of vision ENT ENT ED: Reports none; Denies ear pain, lip swelling, loss taste/smell, neck pain, otalgia or sore throat Cardiovascular Cardiovascular: Reports none; Denies abdominal pain, chest pain with activity, leg edema, lightheadedness, palpitations, rapid heart rate or syncope Respiratory/Chest Respiratory/Chest: Reports none; Denies change in mental status, dry cough, dyspnea, hemoptysis, shortness of breath at rest or shortness of breath with exertion Gastrointestinal Gastrointestinal: Reports none, abdominal pain, nausea and vomiting; Denies change in stool character, diarrhea, hematemesis, hematochezia, melena or rectal bleeding Genitourinary Genitourinary ED: Reports none; Denies abdominal discomfort, anuria, dysuria, genital pain or polyuria Musculoskeletal Musculoskeletal: Reports none and back pain; Denies arthralgias, difficulty walking, extremity pain, muscle weakness or myalgias Integumentary Reports none; Denies abscess or rash Neurologic Neurologic: Reports none; Denies abnormal gait, confusion, focal weakness, frequent falls, headache(s), loss of vision, numbness, paresthesias, radicular pain, vertigo or weakness Psychiatric Psychiatric: Reports systems reviewed and no addt'l complaints, except as documented and none; Denies behavioral changes, confusion, difficulty concentrating, hallucinations, suicidal ideation, tactile hallucinations or visual hallucinations Endocrine Endocrinology: Denies none, cold intolerance, excessive sweating, fatigue or heat intolerance Hematologic/Lymphatic Hematologic/Lymphatic: Reports none; Denies anemia, easy bleeding or easy bruising Allergic/Immunologic Allergic/Immunologic ED: Denies as per HPI, none, lip swelling, mouth swelling, throat swelling, tongue swelling or hives EXAM Physical Exam Const Vital Signs: 01/05/21 10:46 01/05/21 10:52 Temperature 97.8 F Temperature Source Temporal Pulse Rate 96 Respiratory Rate 17 Respiratory Effort Normal Non-Labored Respiratory Pattern Normal Blood Pressure 122/71 H Blood Pressure Mean 88 Pulse Ox 99 Oxygen Delivery Method Room Air Positive well nourished and well developed General Appearance ED: well developed and NAD HEENT Reports TM's clear and moist mucous membranes normocephalic and atraumatic; Negative for trauma or tenderness Tympanic Membrane ED: Yes TM's clear Eyes PERRL and EOMs intact bilaterally General Eye ED: Negative for pale conjunctiva or scleral icterus Neck no lymphadenopathy, supple and no JVD General: Negative for tenderness Chest Wall inspection of chest normal and palpation of chest normal Chest: Negative for tenderness Resp normal respiratory effort and clear to auscultation bilaterally Effort and Inspection: Negative for respiratory distress or pain with movement Auscultation: Negative for rhonchi, wheezes or diminished lung sounds Cardio regular rate, regular rhythm, S1 normal heart sound, S2 normal heart sound and no murmurs Peripheral Pulses: pulses 2+ throughout GI normal to inspection, nondistended, normoactive bowel sounds, soft to palpation, non-tender, non-distended and no masses GI Narrative: Patient has tenderness to the right lower quadrant with some guarding. She has CVA tenderness on the right. No rebound, rigidity, or peritoneal signs. No masses palpated. Back/Spine no CVA tenderness and no thoracic nor lumbar tenderness Extremity normal to inspection General Extremety ED: Negative for edema General Extremity: Negative for edema Neuro oriented x3, CN's II-XII intact bilaterally, no sensory deficits noted and gait normal Sensorium / Orientation: awake, alert, oriented to person, oriented to place and oriented to time Motor Exam: strength 5/5 throughout and strength abnormal Psych mental status grossly normal Skin no rashes or lesions noted and no wounds MDM MDM MDM Narrative Medical decision making narrative: Results discussed with patient. On arrival she is medicated morphine and Zofran. Work-up in the emergency department unremarkable. Etiology of her pain I suspect may be muscular. No evidence of kidney stones noted on exam. Patient advised to follow-up with a primary care physician 3 to 5 days. She will be given a prescription for few [place] for pain. Lab Data Attestation: I reviewed the patient's lab results. Labs: Laboratory Results - last 24 hr 01/05/21 01/05/21 01/05/21 10:57 10:57 11:26 WBC 7.7 RBC 3.75 L Hgb 12.4 Hct 38.4 MCV 102.4 H MCH 33.1 H MCHC 32.3 RDW Std Deviation 47.9 H RDW Coeff of Karina 12.7 Plt Count 175 MPV 11.4 Immature Gran % (Auto) 0.400 Neut % (Auto) 65.2 Lymph % (Auto) 25.8 [place] % (Auto) 6.0 Eos % (Auto) 2.2 Baso % (Auto) 0.4 Absolute Neuts (auto) 5.0 Absolute Lymphs (auto) 1.98 Nucleated RBC % 0 Sodium 142 Potassium 3.0 L Chloride 108 H Carbon Dioxide 28.0 Anion Gap 6 BUN 9 Creatinine 0.71 Estim Creat Clear Calc 98.33 Est GFR (MDRD) Af Amer 116 Est GFR (MDRD) Non-Af 96 BUN/Creatinine Ratio 12.7 Glucose 89 Calcium 8.8 Urine Color Yellow Urine Clarity Sl. Cloudy Urine pH 8.0 Ur Specific [place] 1.015 Urine Protein Negative Urine Glucose (UA) Normal Urine Ketones Negative Urine Occult Blood 10 H Urine Nitrite Negative Urine Bilirubin Negative Urine Urobilinogen Normal Ur Leukocyte Esterase 100 H Urine RBC 0 SEEN Urine WBC 0-5 SEEN Ur Squamous Epith Cells 0-5 SEEN Urine Bacteria 0 SEEN Urine Mucus 0 SEEN Radiography Diagnostic Testing: Radiology Impression Abdomen/Pelvis CT 01/05/21 11:00 IMPRESSION: Sigmoid diverticulosis. No acute abnormality is seen. Electronically Signed: Amado Bernardo MD at 11:57 EDT , Service support , Discharge Plan Triage Chief Complaint: Flank Pain ED Provider: Alona Campo Dx/Rx/DC Orders Clinical Impression: Flank pain Instructions: ED Flank Pain, Uncertain Cause Prescriptions: New hydrocodone-acetaminophen [hydrocodone-acetaminophen] 1 TABLET tablet 1 tab PO Q4H PRN PRN (Reason: Pain) 2 Days Qty: 10 RF: 0 No Action topiramate 200 mg tablet 200 mg PO QHS RF: 0 carbamazepine 200 mg tablet 200 mg PO BID RF: 0 cyclobenzaprine 10 mg tablet 10 mg PO BID PRN (Reason: BACK PAIN) RF: 0 duloxetine 30 mg capsule,delayed release(DR/EC) 90 mg PO QHS RF: 0 aripiprazole [Abilify] 30 mg tablet 40 mg PO DAILY RF: 0 promethazine 25 mg tablet See Rx Instructions .Route .COMPLEX PRN (Reason: Nausea) Qty: 60 RF: 1 trazodone 100 mg tablet 300 mg PO QHS RF: 0 gabapentin 600 mg tablet 600 mg PO TID RF: 0 hydroxyzine pamoate 25 mg capsule 50 mg PO TID PRN (Reason: Anxiety) RF: 0 prazosin 5 MG capsule 5 mg PO QHS RF: 0 Ultram 50 mg BID RF: 0 hydrocodone-acetaminophen 5-325 mg tablet 1 tab PO Q6H PRN (Reason: pain) 3 Days Qty: 12 RF: 0 hydrocodone-acetaminophen 5-325 mg tablet 1 tab PO Q6H PRN (Reason: pain) 3 Days Qty: 12 RF: 0 epinephrine [EpiPen 2-Raymond] 0.3 mg/0.3 mL auto-injector 0.3 mg IM Q5-15M PRN (Reason: anaphylaxis) Qty: 2 RF: 3 (DME) Handicap Placard See Rx Instructions .Route .MEDSUPPLY Qty: 1 RF: 0 omeprazole 40 mg capsule,delayed release(DR/EC) 40 mg PO DAILY Qty: 60 RF: 2 dicyclomine 10 mg capsule 10 mg PO BID PRN (Reason: abdominal discomfort) Qty: 60 RF: 0 Primary Care Provider: Gayle Munoz Referrals: Gayle Munoz MD [Primary Care Provider] - 3-5 Days Disposition Disposition: Home, Self Care
[2021-01-05 11:14] LABS: Absolute Lymphocyte Count 1.98 X10^3/uL (0.83-4.51); Basophil# 0.03 X10^3/uL; Basophil% 0.4 % (0-1); Eosinophil# 0.17 X10^3/uL; Eosinophils% 2.2 % (0-5); Hematocrit 38.4 % (37-47); Hemoglobin 12.4 g/dL (12.0-15.0); Lymphocyte # 1.98 X10^3/ul (0.83-4.51); Lymphocyte % 25.8 % (19-41); Mean Corp Hgb Conc 32.3 g/dL (32-36); Mean Corpuscular Hgb 33.1 pg (27.0-32.0); Mean Corpuscular Volume 102.4 fL (81-99); Mean Platelet Vol. 11.4 fl (6.2-12.0); Monocyte# 0.46 X10^3/uL; NRBC Flagged by Analyzer 0 % (0-5); Neutrophil # 5.01 X10^3/uL (2.7-7.7); Neutrophil % 65.2 % (47-70); Platelet Count 175 K/mm3 (150-450); RBC Distribution Width CV 12.7 % (11.6-14.6); RBC Distribution Width SD 47.9 fl (35.1-43.9); Red Blood Count 3.75 M/mm3 (4.2-5.4); White Blood Count 7.7 K/mm3 (4.4-11.0)
[2021-01-05 11:22] LABS: Anion Gap 6 (5-15); BUN 9 mg/dL (7-18); BUN/Creat Ratio 12.7 RATIO (10-20); Calcium,Total 8.8 mg/dL (8.5-10.1); Chloride 108 mmol/L (98-107); Creatinine, Serum 0.71 mg/dL (0.55-1.02); EST Glomerular Filtration Rate 96 mL/min (>60); Est Glom Filt Rate - Afr Amer 116 mL/min (>60); Estimated Creatinine Clearance 98.33 ml/min; Glucose 89 mg/dL (74-106); Sodium Level 142 mmol/L (136-145)
[2021-01-05] MEDS: Ondansetron 4 MG/2 ML Vial IV (11:23)
[2021-01-05] MEDS: Morphine 4 MG/ML Syringe IV (11:23)
[2021-01-05] MEDS: 0.9% Normal Saline 1,000 ML 125 ML IV (11:29)
[2021-01-05 11:33] LABS: Bacteria 0 SEEN /hpf (None Seen); Mucous, Urine 0 SEEN /hpf (<or=2+); Red Blood Cells-Urine 0 SEEN /hpf (0-5)
[2021-01-05 11:34] LABS: Color, Urine Yellow (Yellow); Glucose, Dipstick Normal (Normal); Ketone-Dipstick Negative (Negative); Leukocyte Esterase-Dipstick 100 /ul (Negative); Nitrite-Dipstick Negative (Negative); Occult Blood-Urine 10 /ul (Negative); Protein-Dipstick Negative (Negative); Specific Gravity, Urine 1.015 (1.002-1.030); Urine Bilirubin Dipstick Negative (Negative); Urine Clarity Sl. Cloudy (Clear); Urine Urobilinogen Normal (Normal)
[2021-01-05 11:39] LABS: Squamous Epithelial Cells - UA 0-5 SEEN /hpf (5-10); White Blood Cells 0-5 SEEN /hpf (0-5)
[2021-01-05] MEDS: Potassium Chloride Oral Tablet 20 MEQ 40 MEQ PO (12:43)
[2021-01-05 12:44] VITALS: BP 129/77; PULSE 84; RESP 16; O2SAT 98
== END 2021-01-05 12:55 | disposition home or self-care (01) ==
PROVIDERS: Emergency Provider Emergency Medicine; PCP Internal Medicine
DX: R10.9 Unspecified abdominal pain (principal); F17.210 Nicotine dependence, cigarettes, uncomplicated; Z87.442 Personal history of urinary calculi; Z79.899 Other long term (current) drug therapy
CPT/HCPCS: 74176; 80048; 81001; 85025; 96374; 96375; 99284; J7030; A4216; J2405

== ENCOUNTER → 2021-01-07 11:54 | Outpatient (CLI) | payer MEDICAID, SELFPAY ==
[2021-01-07 12:45] LABS: Color, Urine Yellow (Yellow); Glucose, Dipstick Normal (Normal); Ketone-Dipstick Negative (Negative); Leukocyte Esterase-Dipstick 500 /ul (Negative); Nitrite-Dipstick Positive (Negative); Occult Blood-Urine 25 /ul (Negative); Protein-Dipstick 15 mg/dl (Negative); Urine Bilirubin Dipstick Negative (Negative); Urine Clarity Cloudy (Clear); Urine Urobilinogen Normal (Normal)
[2021-01-07 13:04] LABS: Red Blood Cells-Urine 0-5 SEEN /hpf (0-5); Squamous Epithelial Cells - UA 0-5 SEEN /hpf (5-10); White Blood Cells 10-25 SEEN /hpf (0-5)
[2021-01-07 13:05] LABS: Bacteria 4+ /hpf (None Seen); Mucous, Urine RARE /hpf (<or=2+)
== END ==
PROVIDERS: PCP Internal Medicine; Referring Provider Nurse Practitioner Family; Visit Provider Nurse Practitioner Family
DX: R31.9 Hematuria, unspecified (principal); R10.9 Unspecified abdominal pain
CPT/HCPCS: 81001; 87077; 87086; 87088; 87186

== ENCOUNTER 2021-01-14 15:59 | Emergency (ER) | payer MEDICAID, SELFPAY ==
[2021-01-14 15:59] VITALS: BP 116/70; PULSE 89; RESP 16; TEMP 36.5; O2SAT 97; BMI 34.4
--- NOTE | 2021-01-14 16:23 | US_ITS ---
STUDY: ABDOMINAL ULTRASOUND - RIGHT UPPER QUADRANT REASON FOR VISIT: Female, 45 years old right sided rib pain with nausea and vomiting for 2 days. Right upper quadrant pain. TECHNIQUE: Ultrasound evaluation of the right upper quadrant was performed with real-time and static negron-scale imaging. TECHNICAL QUALITY: Adequate. The patient received MORPHINE prior to the ultrasound. This limits interpretation of the sonographic Greenberg''s sign. COMPARISON: CT the abdomen and pelvis, 01/05/2021. FINDINGS: Liver: The liver measures 18.7 cm. There is normal echogenicity of the liver. The bile ducts are within normal limits. There is hepatic color flow. The direction of portal flow is hepatopetal. There is no demonstrated mass lesion. Gallbladder: Normal distended gallbladder. The gallbladder wall measures 2 mm. There is a negative sonographic Greenberg''s sign. There is no pericholecystic fluid. There are no gallstones. Common Bile Duct (C.B.D.): The common bile duct measures 4 mm. Pancreas: Normal size of the head, body and tail of the pancreas. There is normal echogenicity of the pancreas. There is no demonstrated pancreatic mass or cyst. Right Kidney: Normal size of the right kidney. The right kidney measures 10.9 cm. Normal renal cortex. The right cortex measures 1.2 cm. There is no demonstrated renal mass or cyst. There is no right hydronephrosis. US/Gallbladder IMPRESSION: Mild hepatomegaly without mass or other sonographic evidence of right upper quadrant abnormality. Electronically Signed: Bear Monaco DO at 17:27 EDT Tel [phone], Service support ,
--- NOTE | 2021-01-14 16:25 | ED.VIS.GI ---
HPI HPI - GI History of Present Illness Chief Complaint: Abd Pain Informant: patient Abdominal Pain/Flank Pain Onset: Days Context: Gradual Onset Timing: Continuous Quality: Aching Location: RUQ Current Severity: Mild Maximum Severity: Mild Nausea/Vomiting/Emesis GI Symptom: Positive for Nausea and Vomiting Onset: Today and Yesterday Severity: Mild Diarrhea/Melena/Hematochezia GI Symptom: Negative for Diarrhea and Melena Associated Symptoms Associated Symptoms: Negative for Dysuria, Frequency, Hematuria and Urgency Narrative Narrative: 45-year-old female history of prior appendectomy and hysterectomy. Seizure disorder. Patient states that she has had right upper quadrant abdominal pain since Sunday. Associated nausea vomiting. No diarrhea. No fever. Pain increased today. Still has her gallbladder. Her mom had gallbladder disease. She denies dysuria. Prior similar symptoms: No Recent Illness/Hospitalization: No PFSH PFSH Medical History Acute cystitis Arthritis Back problem Lamar's palsy Blurry vision, left eye Cancer Carpal tunnel syndrome Cellulitis Dizziness Fall Fibromyalgia Gastrointestinal problem Headache Hearing problem Hematuria Hives Hx of emotional problems Insect bite Irritable bowel syndrome Kidney stones Lipoma Neuropathy Osteoarthritis Seasonal allergies Seizures Stroke Ulcer Home Medications topiramate 200 mg tablet 200 mg PO QHS tab 08/15/18 [History Last Taken Unknown] cyclobenzaprine 10 mg tablet 10 mg PO BID PRN tab 01/23/19 [History Last Taken 02/10/20] duloxetine 30 mg capsule,delayed release 90 mg PO QHS 06/09/19 [History Last Taken Unknown] epinephrine 0.3 mg/0.3 mL injection, auto-injector 0.3 mg IM Q5-15M PRN #2 ea 08/11/19 [Rx Last Taken Unknown] prazosin 5 mg PO QHS 09/17/19 [History Last Taken Unknown] trazodone 100 mg tablet 300 mg PO QHS tab 10/28/19 [History Last Taken Unknown] carbamazepine 200 mg tablet 200 mg PO BID tab 03/22/20 [History Last Taken Unknown] gabapentin 600 mg tablet 600 mg PO TID tab 03/22/20 [History Last Taken Unknown] hydroxyzine pamoate 25 mg capsule 50 mg PO TID PRN 03/22/20 [History Last Taken Unknown] Handicap Placard #1 ea 05/03/20 [Rx Last Taken Unknown] omeprazole 40 mg capsule,delayed release 40 mg PO DAILY #60 cap 05/14/20 [Rx Last Taken Unknown] promethazine 25 mg tablet See Rx Instructions .ROUTE .COMPLEX PRN #60 tab 11/01/20 [Rx Last Taken Unknown] dicyclomine 10 mg capsule 10 mg PO BID PRN #60 cap 12/27/20 [Rx Last Taken Unknown] Ultram 50 mg BID 12/30/20 [History Last Taken Unknown] aripiprazole 10 mg tablet 10 mg PO DAILY 01/07/21 [History Last Taken Unknown] aripiprazole 30 mg tablet 30 mg PO DAILY tab 01/07/21 [History Last Taken Unknown] phenazopyridine 100 mg tablet 100 mg PO TID PRN #6 tab 01/07/21 [Rx Last Taken Unknown] fosfomycin tromethamine 3 gram oral packet 1 packet PO ONCE #1 ea 01/11/21 [Rx Last Taken Unknown] Allergy/AdvReac Type Severity Reaction Status Date / Time venom-honey bee Allergy Severe severe Verified 01/14/21 15:59 venom-wasp Allergy Severe severe Verified 01/14/21 15:59 erythromycin base Allergy Anaphylaxis Verified 01/14/21 15:59 iodine Allergy Anaphylaxis Verified 01/14/21 15:59 latex Allergy Rash Verified 01/14/21 15:59 metronidazole [From Flagyl] Allergy Anaphylaxis Verified 01/14/21 15:59 naproxen [From Naprosyn] Allergy Anaphylaxis Verified 01/14/21 15:59 Penicillins Allergy Anaphylaxis Verified 01/14/21 15:59 shellfish derived Allergy Anaphylaxis Verified 01/14/21 15:59 adhesive AdvReac Mild BLISTERS Verified 01/14/21 15:59 All Cillins Allergy Severe Anaphylaxis Uncoded 01/14/21 15:59 Family History Father Asthma Grandfather No problems noted. Grandmother Asthma Brother Lung cancer Diabetes Hypertension Grandfather Asthma Grandmother Asthma Hypertension Mother Diabetes Aunt Diabetes Son Seizures Asthma Family History no significant family his no significant family history Surgical History History of appendectomy History of bladder repair surgery History of carpal tunnel surgery of right wrist History of hysterectomy History of orthopedic surgery History of spinal surgery Hx of repair of right rotator cuff S/P left knee surgery S/P umbilical hernia repair, follow-up exam Social History Smoking Status: Current every day smoker tobacco type: cigarettes alcohol intake: never substance use type: does not use what type of physical activity do you participate in: none ROS ROS ED ROS Narrative Right upper quadrant abdominal pain. Nausea and vomiting. Review of Systems ROS Unobtainable: Denies due to encephalopathy Constitutional Constitutional ED: Denies chills or fever(s) ENT ENT ED: Denies ear pain Cardiovascular Cardiovascular: Denies chest pain Respiratory/Chest Respiratory/Chest: Denies cough or dyspnea Gastrointestinal Gastrointestinal: Reports abdominal pain, nausea and vomiting; Denies diarrhea Genitourinary Genitourinary ED: Denies dysuria, hematuria or urinary frequency Musculoskeletal Musculoskeletal: Denies myalgias Integumentary Denies rash Neurologic Neurologic: Denies headache(s) Psychiatric Psychiatric: Denies depression Endocrine Endocrinology: Denies polyuria Hematologic/Lymphatic Hematologic/Lymphatic: Denies easy bruising Allergic/Immunologic Allergic/Immunologic ED: Denies urticaria EXAM Physical Exam Narrative Exam Narrative: White female no acute distress vital signs stable afebrile. HEENT exam unremarkable. Neck nontender. Lungs clear to auscultation bilaterally. Heart regular rhythm no murmur. Abdomen soft nondistended normal bowel sounds no peritoneal signs. She does have right upper quadrant tenderness only. McBurney's point negative. Moving all 4 extremities. Back nontender. Neurologically awake and alert. Const Vital Signs: 01/14/21 15:59 Temperature 97.7 F L Temperature Source Temporal Pulse Rate 89 Respiratory Rate 16 Blood Pressure 116/70 Blood Pressure Mean 85 Pulse Ox 97 Positive well nourished, well developed and obese; Negative for cachectic, contractures or unkempt General Appearance ED: well developed and NAD; Negative for unkempt, cachectic, contractures or pallor Nutritional Appearance: obese; Negative for cachectic HEENT Reports moist mucous membranes normocephalic and atraumatic Eyes PERRL and EOMs intact bilaterally Neck no lymphadenopathy, supple and no JVD General: Negative for tenderness Resp normal respiratory effort and clear to auscultation bilaterally Auscultation: Negative for rales, rhonchi or wheezes Cardio regular rate, regular rhythm, S1 normal heart sound, S2 normal heart sound and no murmurs GI non-distended and no masses; Negative for non-tender Inspection: Negative for abdominal distention Auscultation: normoactive bowel sounds; Negative for hyperactive bowel sounds or hypoactive bowel sounds Palpation: soft and tender; Negative for guarding, rigid or rebound tenderness present Back/Spine no CVA tenderness Extremity full ROM General Extremety ED: Negative for edema or tenderness General Extremity: Negative for edema Neuro moves all extremities Sensorium / Orientation: alert, oriented to person, oriented to place and oriented to time; Negative for orientation impaired, confused, lethargic or stuporous Motor Exam: strength 5/5 throughout Psych mental status grossly normal Appearance: Negative for unkempt Skin no wounds General Skin Exam: Negative for jaundice or pallor Lesions: no lesions Rashes: no rashes MDM MDM MDM Narrative Medical decision making narrative: 45-year-old female with right upper quadrant abdominal pain for 2 to 3 days. Still has her gallbladder. Will be treated with IV fluids morphine and Zofran. Right upper quadrant ultrasound labs are being obtained. Lab Data Attestation: I reviewed the patient's lab results. Lab results narrative: CBC normal white count of 6. Hemoglobin 12.4. Electrolytes unremarkable gap of 4 normal creatinine liver enzymes unremarkable lipase normal at 76. Labs: Laboratory Results - last 24 hr 01/14/21 01/14/21 16:10 16:10 WBC 6.1 RBC 3.73 L Hgb 12.4 Hct 38.2 MCV 102.4 H MCH 33.2 H MCHC 32.5 RDW Std Deviation 47.8 H RDW Coeff of Karina 12.8 Plt Count 197 MPV 11.3 Immature Gran % (Auto) 0.300 Neut % (Auto) 57.9 Lymph % (Auto) 32.9 [place] % (Auto) 5.1 Eos % (Auto) 3.5 Baso % (Auto) 0.3 Absolute Neuts (auto) 3.5 Absolute Lymphs (auto) 2.00 Nucleated RBC % 0 Sodium 142 Potassium 3.8 Chloride 112 H Carbon Dioxide 26.0 Anion Gap 4 L BUN 11 Creatinine 0.69 Estim Creat Clear Calc 101.18 Est GFR (MDRD) Af Amer 118 Est GFR (MDRD) Non-Af 98 BUN/Creatinine Ratio 15.9 Glucose 88 Calcium 8.3 L Total Bilirubin 0.10 L AST 19 ALT 21 Alkaline Phosphatase 141 H Total Protein 7.5 Albumin 3.2 Globulin 4.3 H Albumin/Globulin Ratio 0.7 L Lipase 76 Radiography Diagnostic Testing: Clinical Impression(s) from Imaging Studies Gallbladder Ultrasound 01/14/21 16:23 IMPRESSION: Mild hepatomegaly without mass or other sonographic evidence of right upper quadrant abnormality. Electronically Signed: Bear Monaco DO at 17:27 EDT Tel [phone], Service support , Radiologist read the right upper quadrant ultrasound is mild hepatomegaly without other acute findings. No gallstones. No gallbladder wall thickening. Discharge Plan Triage Chief Complaint: Abd Pain ED Provider: Herber Caro Dx/Rx/DC Orders Clinical Impression: Abdominal pain Instructions: Abdominal Pain Prescriptions: No Action topiramate 200 mg tablet 200 mg PO QHS RF: 0 carbamazepine 200 mg tablet 200 mg PO BID RF: 0 cyclobenzaprine 10 mg tablet 10 mg PO BID PRN (Reason: BACK PAIN) RF: 0 duloxetine 30 mg capsule,delayed release(DR/EC) 90 mg PO QHS RF: 0 aripiprazole [Abilify] 30 mg tablet 30 mg PO DAILY RF: 0 promethazine 25 mg tablet See Rx Instructions .Route .COMPLEX PRN (Reason: Nausea) Qty: 60 RF: 1 aripiprazole [Abilify] 10 mg tablet 10 mg PO DAILY RF: 0 trazodone 100 mg tablet 300 mg PO QHS RF: 0 gabapentin 600 mg tablet 600 mg PO TID RF: 0 hydroxyzine pamoate 25 mg capsule 50 mg PO TID PRN (Reason: Anxiety) RF: 0 prazosin 5 MG capsule 5 mg PO QHS RF: 0 Ultram 50 mg BID RF: 0 epinephrine [EpiPen 2-Raymond] 0.3 mg/0.3 mL auto-injector 0.3 mg IM Q5-15M PRN (Reason: anaphylaxis) Qty: 2 RF: 3 (DME) Handicap Placard See Rx Instructions .Route .MEDSUPPLY Qty: 1 RF: 0 omeprazole 40 mg capsule,delayed release(DR/EC) 40 mg PO DAILY Qty: 60 RF: 2 dicyclomine 10 mg capsule 10 mg PO BID PRN (Reason: abdominal discomfort) Qty: 60 RF: 0 phenazopyridine [Pyridium] 100 mg tablet 100 mg PO TID PRN (Reason: pain) Qty: 6 RF: 0 fosfomycin tromethamine 3 gram packet 1 packet PO ONCE Qty: 1 RF: 0 Primary Care Provider: Gayle Munoz Referrals: Gayle Munoz MD [Primary Care Provider] - 3-5 Days if not improving Activity Restrictions/Additional Instructions: Follow-up with your primary care physician if this pain is not getting better. Your ultrasound 9 all your labs were normal. It is not improving they can do what is called a HIDA scan for further evaluation of your gallbladder. At this time there is no stones or signs of infection. Disposition Disposition: Home, Self Care
[2021-01-14] MEDS: 0.9% Normal Saline 1,000 ML 1000 ML IV (16:30)
[2021-01-14] MEDS: Ondansetron 4 MG/2 ML Vial IV (16:30)
[2021-01-14] MEDS: morphine 8 MG/ML Syringe IV (16:31)
[2021-01-14 16:34] LABS: Absolute Neutrophil Count 3.5 X10^3/uL (2.0-7.7); Basophil# 0.02 X10^3/uL; Basophil% 0.3 % (0-1); Eosinophil# 0.21 X10^3/uL; Eosinophils% 3.5 % (0-5); Hematocrit 38.2 % (37-47); Hemoglobin 12.4 g/dL (12.0-15.0); Lymphocyte % 32.9 % (19-41); Mean Corp Hgb Conc 32.5 g/dL (32-36); Mean Corpuscular Hgb 33.2 pg (27.0-32.0); Mean Corpuscular Volume 102.4 fL (81-99); Mean Platelet Vol. 11.3 fl (6.2-12.0); Monocyte# 0.31 X10^3/uL; Monocyte% 5.1 % (0-10); NRBC Flagged by Analyzer 0 % (0-5); Neutrophil # 3.51 X10^3/uL (2.7-7.7); Neutrophil % 57.9 % (47-70); Platelet Count 197 K/mm3 (150-450); RBC Distribution Width CV 12.8 % (11.6-14.6); RBC Distribution Width SD 47.8 fl (35.1-43.9); Red Blood Count 3.73 M/mm3 (4.2-5.4); White Blood Count 6.1 K/mm3 (4.4-11.0)
[2021-01-14 16:47] LABS: ALB/GLOB Ratio 0.7 RATIO (0.9-2.4); AST(SGOT) 19 U/L (15-37); Alanine Aminotransfer ALT/SGPT 21 U/L (13-56); Albumin, Serum 3.2 g/dL (3.2-5.0); Alkaline Phosphatase 141 U/L (45-117); Anion Gap 4 (5-15); BUN 11 mg/dL (7-18); BUN/Creat Ratio 15.9 RATIO (10-20); Calcium,Total 8.3 mg/dL (8.5-10.1); Chloride 112 mmol/L (98-107); Creatinine, Serum 0.69 mg/dL (0.55-1.02); EST Glomerular Filtration Rate 98 mL/min (>60); Est Glom Filt Rate - Afr Amer 118 mL/min (>60); Estimated Creatinine Clearance 101.18 ml/min; Globulin 4.3 g/dL (2.2-4.2); Glucose 88 mg/dL (74-106); Lipase 76 U/L (73-393); Potassium 3.8 mmol/L (3.5-5.1); Protein, Total 7.5 g/dL (6.4-8.2); Sodium Level 142 mmol/L (136-145)
[2021-01-14 17:59] VITALS: BP 107/70; PULSE 80; RESP 16; O2SAT 96
== END 2021-01-14 18:01 | disposition home or self-care (01) ==
PROVIDERS: Emergency Provider Emergency Medicine; PCP Internal Medicine
DX: R10.11 Right upper quadrant pain (principal); E66.9 Obesity, unspecified; F17.210 Nicotine dependence, cigarettes, uncomplicated; Z90.49 Acquired absence of other specified parts of digestive tract
CPT/HCPCS: 76705; 80053; 83690; 85025; 96374; 96375; 99283; J7030; A4216; J2405

== ENCOUNTER 2021-01-15 12:11 | Emergency (ER) | payer MEDICAID, SELFPAY ==
[2021-01-15 12:12] VITALS: BP 119/63; PULSE 83; RESP 17; TEMP 36.6; O2SAT 95; BMI 32.3
--- NOTE | 2021-01-15 13:04 | CT_ITS ---
EXAM: CT ABDOMEN AND PELVIS WITHOUT INTRAVENOUS CONTRAST CLINICAL INDICATION: Abdominal pain. TECHNIQUE: Helically acquired images were obtained of the abdomen and pelvis without intravenous contrast. This CT exam was performed using one or more of the following dose reduction techniques: automated exposure control, adjustment of the mA and/or kV according to patient size, and/or use of iterative reconstruction technique. This report was created using [employer] report generation technology. COMPARISON: CT abdomen and pelvis without contrast 01/05/2021. FINDINGS: LOWER THORAX: Unremarkable. Lung bases are clear. No cardiomegaly. No significant pericardial effusion. ABDOMEN: LIVER: Unremarkable. Homogeneous. GALLBLADDER AND BILE DUCTS: Unremarkable. No calcified gallstones. No gallbladder distention or wall edema. No intra- or extrahepatic biliary ductal dilation. PANCREAS: Unremarkable. No focal cystic mass. SPLEEN: Unremarkable. Normal size without focal cystic or solid mass. ADRENALS: Unremarkable. No nodules. KIDNEYS AND URETERS: Unremarkable. Normal renal size and position. No hydronephrosis. STOMACH AND BOWEL: No visible diverticula in the colon including the previously mentioned sigmoid diverticulosis. No stomach or bowel distention. No focal inflammatory change. PELVIS: APPENDIX: Postsurgical absence of the appendix. BLADDER: Unremarkable. REPRODUCTIVE: Unremarkable as visualized. No mass. ABDOMEN and PELVIS: INTRAPERITONEAL SPACE: Unremarkable. No ascites or other fluid collection. No free air. BONES/JOINTS: Unremarkable. No suspicious lytic or blastic abnormality. SOFT TISSUES: Unremarkable. No discrete abdominal or pelvic wall hernia. VASCULATURE: Unremarkable. Abdominal aorta is non-dilated. LYMPH NODES: Unremarkable. No enlarged lymph nodes. CT/Abdomen/Pelvis without Cont IMPRESSION: 1. No acute findings in the abdomen or pelvis. 2. No colonic diverticulosis particularly in the sigmoid colon and no significant interval change when compared to 01/05/2021. Electronically Signed: Dg Dowling MD at 14:17 EDT , Service support ,
--- NOTE | 2021-01-15 13:05 | ED.VIS.GI ---
HPI HPI - GI History of Present Illness Chief Complaint: Abd Pain Informant: patient Narrative Narrative: This patient presents with epigastric and right upper quadrant pain. Is been going on for about a week and a half. It started when she started Bactrim for a UTI. She is not having any UTI symptoms now. She gets intermittent waxing and waning pain as above. She gets a very acid a sour taste in her mouth. She has had some vomiting which she describes as stomach acid. She is having trouble eating and drinking because of the nausea and vomiting. She now stopped the antibiotics about 2 or 3 days ago as they were done. Symptoms have not improved. She was seen here yesterday and had ultrasound and work-up. She is back because her symptoms are not resolved. No fevers or chills. No back pain. No chest pain. No trouble breathing. PFSH [facility] Medical History Acute cystitis Arthritis Back problem Lamar's palsy Blurry vision, left eye Cancer Carpal tunnel syndrome Cellulitis Cervical cancer Dizziness Fall Fibromyalgia Gastrointestinal problem Headache Hearing problem Hematuria Hives Hx of emotional problems Insect bite Interstitial cystitis Irritable bowel syndrome Kidney stones Lipoma Neuropathy Osteoarthritis Seasonal allergies Seizures Stroke Ulcer Uterine cancer Home Medications topiramate 200 mg tablet 200 mg PO QHS tab 08/15/18 [History Last Taken Unknown] cyclobenzaprine 10 mg tablet 10 mg PO BID PRN tab 01/23/19 [History Last Taken 02/10/20] duloxetine 30 mg capsule,delayed release 90 mg PO QHS 06/09/19 [History Last Taken Unknown] epinephrine 0.3 mg/0.3 mL injection, auto-injector 0.3 mg IM Q5-15M PRN #2 ea 08/11/19 [Rx Last Taken Unknown] prazosin 5 mg PO QHS 09/17/19 [History Last Taken Unknown] trazodone 100 mg tablet 300 mg PO QHS tab 10/28/19 [History Last Taken Unknown] carbamazepine 200 mg tablet 200 mg PO BID tab 03/22/20 [History Last Taken Unknown] gabapentin 600 mg tablet 600 mg PO TID tab 03/22/20 [History Last Taken Unknown] hydroxyzine pamoate 25 mg capsule 50 mg PO TID PRN 03/22/20 [History Last Taken Unknown] Handicap Placard #1 ea 05/03/20 [Rx Last Taken Unknown] omeprazole 40 mg capsule,delayed release 40 mg PO DAILY #60 cap 05/14/20 [Rx Last Taken Unknown] promethazine 25 mg tablet See Rx Instructions .ROUTE .COMPLEX PRN #60 tab 11/01/20 [Rx Last Taken Unknown] dicyclomine 10 mg capsule 10 mg PO BID PRN #60 cap 12/27/20 [Rx Last Taken Unknown] Ultram 50 mg BID 12/30/20 [History Last Taken Unknown] aripiprazole 30 mg tablet 30 mg PO DAILY tab 01/07/21 [History Last Taken Unknown] esomeprazole magnesium [Nexium] 40 mg PO DAILY #14 cap 01/15/21 [Rx Last Taken Unknown] Allergy/AdvReac Type Severity Reaction Status Date / Time venom-honey bee Allergy Severe severe Verified 01/15/21 12:12 venom-wasp Allergy Severe severe Verified 01/15/21 12:12 erythromycin base Allergy Anaphylaxis Verified 01/15/21 12:12 iodine Allergy Anaphylaxis Verified 01/15/21 12:12 latex Allergy Rash Verified 01/15/21 12:12 metronidazole [From Flagyl] Allergy Anaphylaxis Verified 01/15/21 12:12 naproxen [From Naprosyn] Allergy Anaphylaxis Verified 01/15/21 12:12 Penicillins Allergy Anaphylaxis Verified 01/15/21 12:12 shellfish derived Allergy Anaphylaxis Verified 01/15/21 12:12 adhesive AdvReac Mild BLISTERS Verified 01/15/21 12:12 All Cillins Allergy Severe Anaphylaxis Uncoded 01/14/21 15:59 Family History Father Asthma Grandfather No problems noted. Grandmother Asthma Brother Lung cancer Diabetes Hypertension Grandfather Asthma Grandmother Asthma Hypertension Mother Diabetes Aunt Diabetes Son Seizures Asthma Surgical History History of appendectomy History of bladder repair surgery History of carpal tunnel surgery of right wrist History of hysterectomy History of orthopedic surgery History of spinal surgery Hx of repair of right rotator cuff S/P left knee surgery S/P umbilical hernia repair, follow-up exam Social History Smoking Status: Current every day smoker tobacco type: cigarettes alcohol intake: never substance use type: does not use what type of physical activity do you participate in: none ROS ROS ED Constitutional Constitutional ED: Denies fever(s), subjective or sweats ENT ENT ED: Reports other Details: She does get acid taste in her mouth. ; Denies rhinorrhea or sore throat Cardiovascular Cardiovascular: Denies chest pain, palpitations or racing heartbeat Respiratory/Chest Respiratory/Chest: Denies cough, dyspnea, dyspnea on exertion or sputum Gastrointestinal Gastrointestinal: Reports abdominal pain, nausea and vomiting; Denies constipation, diarrhea or melena Genitourinary Genitourinary ED: Denies dysuria, hematuria or urinary frequency Musculoskeletal Musculoskeletal: Denies back pain or myalgias Integumentary Denies rash Neurologic Neurologic: Denies headache(s) Psychiatric Psychiatric: Reports anxiety and depression Endocrine Endocrinology: Denies polydipsia or polyuria Hematologic/Lymphatic Hematologic/Lymphatic: Denies easy bleeding or easy bruising Allergic/Immunologic Allergic/Immunologic ED: Denies mouth swelling or urticaria EXAM Physical Exam Const Vital Signs: 01/15/21 12:12 01/15/21 14:33 Temperature 97.9 F Temperature Source Temporal Pulse Rate 83 80 Respiratory Rate 17 16 Blood Pressure 119/63 99/50 L Blood Pressure Mean 81 66 Pulse Ox 95 100 Oxygen Delivery Method Room Air Room Air Positive well nourished and obese General Appearance ED: NAD Nutritional Appearance: obese HEENT Reports moist mucous membranes normocephalic and atraumatic Eyes General Eye ED: Negative for pale conjunctiva or scleral icterus Neck no lymphadenopathy and no JVD Resp normal respiratory effort and clear to auscultation bilaterally Effort and Inspection: Negative for pain with movement Auscultation: Negative for rales, rhonchi, wheezes or diminished lung sounds Cardio regular rate and regular rhythm GI non-distended and no masses GI Narrative: Patient does have some mild tenderness both epigastric and right upper quadrant. Negative Greenberg sign. No rebound or guarding. Auscultation: normoactive bowel sounds Palpation: soft Back/Spine no CVA tenderness General Back: CVA tenderness Extremity full ROM Extremity Narrative: Patient does have a splint on lower leg. No swelling above this. General Extremety ED: Negative for edema or tenderness General Extremity: Negative for edema Neuro Sensorium / Orientation: alert Psych mental status grossly normal Skin Skin Narrative: No vesicles noted. Lesions: no lesions Rashes: no rashes MDM MDM MDM Narrative Medical decision making narrative: Patient's blood work shows really normal CBC. Electrolytes liver function test are overall unremarkable. Alkaline phosphatase is minimally elevated. CT scan was done because she is having continued symptoms despite being seen and having a negative ultrasound. The CT showed no acute process. Patient is doing better. I think her symptoms likely are due to dyspepsia and acid production and irritation after starting antibiotics. She is not having diarrhea. She is off the antibiotics. We will switch her from Pepcid that she states she is on 2 Nexium. She will follow up with her physician. Lab Data Attestation: I reviewed the patient's lab results. Labs: Laboratory Results - last 24 hr 01/15/21 01/15/21 13:20 13:20 WBC 5.1 RBC 4.08 L Hgb 13.4 Hct 41.8 MCV 102.5 H MCH 32.8 H MCHC 32.1 RDW Std Deviation 48.3 H RDW Coeff of Karina 12.7 Plt Count 228 MPV 10.9 Immature Gran % (Auto) 0.200 Neut % (Auto) 55.7 Lymph % (Auto) 34.4 [place] % (Auto) 6.0 Eos % (Auto) 3.1 Baso % (Auto) 0.6 Absolute Neuts (auto) 2.9 Absolute Lymphs (auto) 1.77 Nucleated RBC % 0 Sodium 142 Potassium 3.6 Chloride 109 H Carbon Dioxide 26.0 Anion Gap 7 BUN 8 Creatinine 0.74 Estim Creat Clear Calc 94.34 Est GFR (MDRD) Af Amer 110 Est GFR (MDRD) Non-Af 91 BUN/Creatinine Ratio 10.8 Glucose 89 Calcium 8.9 Total Bilirubin 0.20 AST 16 ALT 23 Alkaline Phosphatase 148 H Total Protein 7.9 Albumin 3.3 Globulin 4.6 H Albumin/Globulin Ratio 0.7 L Lipase 67 L Radiography Diagnostic Testing: Clinical Impression(s) from Imaging Studies Abdomen/Pelvis CT 01/15/21 13:04 IMPRESSION: 1. No acute findings in the abdomen or pelvis. 2. No colonic diverticulosis particularly in the sigmoid colon and no significant interval change when compared to 01/05/2021. Electronically Signed: Dg Dowling MD at 14:17 EDT , Service support , Discharge Plan Triage Chief Complaint: Abd Pain ED Provider: Nelson Monterroso Dx/Rx/DC Orders Clinical Impression: Abdominal pain Instructions: ED Abdominal Pain Unkn Cause Fem Prescriptions: New esomeprazole magnesium [Nexium] 40 mg capsule,delayed release(DR/EC) 40 mg PO DAILY Qty: 14 RF: 0 No Action topiramate 200 mg tablet 200 mg PO QHS RF: 0 carbamazepine 200 mg tablet 200 mg PO BID RF: 0 cyclobenzaprine 10 mg tablet 10 mg PO BID PRN (Reason: BACK PAIN) RF: 0 duloxetine 30 mg capsule,delayed release(DR/EC) 90 mg PO QHS RF: 0 aripiprazole [Abilify] 30 mg tablet 30 mg PO DAILY RF: 0 promethazine 25 mg tablet See Rx Instructions .Route .COMPLEX PRN (Reason: Nausea) Qty: 60 RF: 1 trazodone 100 mg tablet 300 mg PO QHS RF: 0 gabapentin 600 mg tablet 600 mg PO TID RF: 0 hydroxyzine pamoate 25 mg capsule 50 mg PO TID PRN (Reason: Anxiety) RF: 0 prazosin 5 MG capsule 5 mg PO QHS RF: 0 Ultram 50 mg BID RF: 0 epinephrine [EpiPen 2-Raymond] 0.3 mg/0.3 mL auto-injector 0.3 mg IM Q5-15M PRN (Reason: anaphylaxis) Qty: 2 RF: 3 (DME) Handicap Placard See Rx Instructions .Route .MEDSUPPLY Qty: 1 RF: 0 omeprazole 40 mg capsule,delayed release(DR/EC) 40 mg PO DAILY Qty: 60 RF: 2 dicyclomine 10 mg capsule 10 mg PO BID PRN (Reason: abdominal discomfort) Qty: 60 RF: 0 Primary Care Provider: Gayle Munoz Referrals: Gayle Munoz MD [Primary Care Provider] - 3-5 Days Disposition Disposition: Home, Self Care
[2021-01-15] MEDS: Ondansetron 4 MG/2 ML Vial IV (13:20)
[2021-01-15] MEDS: 0.9% Normal Saline 1,000 ML 1000 ML IV (13:20)
[2021-01-15] MEDS: Morphine 4 MG/ML Syringe IV (13:21)
[2021-01-15 13:33] LABS: Absolute Lymphocyte Count 1.77 X10^3/uL (0.83-4.51); Absolute Neutrophil Count 2.9 X10^3/uL (2.0-7.7); Basophil# 0.03 X10^3/uL; Basophil% 0.6 % (0-1); Eosinophil# 0.16 X10^3/uL; Eosinophils% 3.1 % (0-5); Hematocrit 41.8 % (37-47); Hemoglobin 13.4 g/dL (12.0-15.0); Lymphocyte # 1.77 X10^3/ul (0.83-4.51); Lymphocyte % 34.4 % (19-41); Mean Corp Hgb Conc 32.1 g/dL (32-36); Mean Corpuscular Hgb 32.8 pg (27.0-32.0); Mean Corpuscular Volume 102.5 fL (81-99); Mean Platelet Vol. 10.9 fl (6.2-12.0); Monocyte# 0.31 X10^3/uL; NRBC Flagged by Analyzer 0 % (0-5); Neutrophil # 2.86 X10^3/uL (2.7-7.7); Neutrophil % 55.7 % (47-70); Platelet Count 228 K/mm3 (150-450); RBC Distribution Width CV 12.7 % (11.6-14.6); RBC Distribution Width SD 48.3 fl (35.1-43.9); Red Blood Count 4.08 M/mm3 (4.2-5.4); White Blood Count 5.1 K/mm3 (4.4-11.0)
[2021-01-15 13:47] LABS: ALB/GLOB Ratio 0.7 RATIO (0.9-2.4); AST(SGOT) 16 U/L (15-37); Alanine Aminotransfer ALT/SGPT 23 U/L (13-56); Albumin, Serum 3.3 g/dL (3.2-5.0); Alkaline Phosphatase 148 U/L (45-117); Anion Gap 7 (5-15); BUN 8 mg/dL (7-18); BUN/Creat Ratio 10.8 RATIO (10-20); Calcium,Total 8.9 mg/dL (8.5-10.1); Chloride 109 mmol/L (98-107); Creatinine, Serum 0.74 mg/dL (0.55-1.02); EST Glomerular Filtration Rate 91 mL/min (>60); Est Glom Filt Rate - Afr Amer 110 mL/min (>60); Estimated Creatinine Clearance 94.34 ml/min; Globulin 4.6 g/dL (2.2-4.2); Glucose 89 mg/dL (74-106); Lipase 67 U/L (73-393); Potassium 3.6 mmol/L (3.5-5.1); Protein, Total 7.9 g/dL (6.4-8.2); Sodium Level 142 mmol/L (136-145)
[2021-01-15 14:33] VITALS: BP 99/50; PULSE 80; RESP 16; O2SAT 100
[2021-01-15 16:11] VITALS: BP 115/75; PULSE 70; RESP 16; O2SAT 97
== END 2021-01-15 16:17 | disposition home or self-care (01) ==
PROVIDERS: Emergency Provider Emergency Medicine; PCP Internal Medicine
DX: R10.13 Epigastric pain (principal); E66.9 Obesity, unspecified; F17.210 Nicotine dependence, cigarettes, uncomplicated; Z79.899 Other long term (current) drug therapy
CPT/HCPCS: 74176; 80053; 83690; 85025; 96365; 96375; 99285; J7030; J7050; A4216; J2405; J3490

== ENCOUNTER 2021-01-24 08:29 | Emergency (ER) | payer MEDICAID, SELFPAY ==
[2021-01-24 08:30] VITALS: BP 117/76; PULSE 84; RESP 18; TEMP 36.1; O2SAT 100; BMI 34.4
--- NOTE | 2021-01-24 08:49 | EDS_ITS ---
HPI History of Present Illness Chief Complaint: Nausea/Vomiting/Diarrhea Informant: patient Narrative Narrative: Patient presents with nausea vomiting but also some diarrhea. She has some intermittent abdominal cramping mostly upper. She evidently had some of the symptoms on Sunday. She went to [place] emergency department. They did urinalysis and blood work. She was diagnosed with a urinary tract infection. She was given IV antibiotics. She was given a prescription for Keflex but her pharmacy did not have it in stock so she is not actually taken any antibiotics since she was seen on Sunday. She states she has had subjective hot and cold fever sensations but has not measured her fever. No chest pain trouble breathing. No nasal congestion. She denies history of C. difficile colitis. [facility] Medical History Acute cystitis Arthritis Back problem Lamar's palsy Blurry vision, left eye Cancer Carpal tunnel syndrome Cellulitis Cervical cancer Dizziness Fall Fibromyalgia Gastrointestinal problem Headache Hearing problem Hematuria Hives Hx of emotional problems Insect bite Interstitial cystitis Irritable bowel syndrome Kidney stones Lipoma Neuropathy Osteoarthritis Seasonal allergies Seizures Stroke Ulcer Uterine cancer Home Medications topiramate 200 mg tablet 200 mg PO QHS tab 08/15/18 [History Last Taken Unknown] cyclobenzaprine 10 mg tablet 10 mg PO BID PRN tab 01/23/19 [History Last Taken 02/10/20] duloxetine 30 mg capsule,delayed release 90 mg PO QHS 06/09/19 [History Last Taken Unknown] epinephrine 0.3 mg/0.3 mL injection, auto-injector 0.3 mg IM Q5-15M PRN #2 ea 08/11/19 [Rx Last Taken Unknown] prazosin 5 mg PO QHS 09/17/19 [History Last Taken Unknown] trazodone 100 mg tablet 300 mg PO QHS tab 10/28/19 [History Last Taken Unknown] carbamazepine 200 mg tablet 200 mg PO BID tab 03/22/20 [History Last Taken Unknown] gabapentin 600 mg tablet 600 mg PO TID tab 03/22/20 [History Last Taken Unknown] hydroxyzine pamoate 25 mg capsule 50 mg PO TID PRN 03/22/20 [History Last Taken Unknown] Handicap Placard #1 ea 05/03/20 [Rx Last Taken Unknown] omeprazole 40 mg capsule,delayed release 40 mg PO DAILY #60 cap 05/14/20 [Rx Last Taken Unknown] promethazine 25 mg tablet See Rx Instructions .ROUTE .COMPLEX PRN #60 tab 11/01/20 [Rx Last Taken Unknown] Ultram 50 mg BID 12/30/20 [History Last Taken Unknown] aripiprazole 30 mg tablet 30 mg PO DAILY tab 01/07/21 [History Last Taken Unknown] esomeprazole magnesium [Nexium] 40 mg PO DAILY #14 cap 01/15/21 [Rx Last Taken Unknown] dicyclomine 10 mg capsule 10 mg PO BID PRN #60 cap 01/21/21 [Rx Last Taken Unknown] ondansetron 4 mg PO Q8H PRN #10 tab 01/24/21 [Rx Last Taken Unknown] Allergy/AdvReac Type Severity Reaction Status Date / Time venom-honey bee Allergy Severe severe Verified 01/24/21 08:30 venom-wasp Allergy Severe severe Verified 01/24/21 08:30 erythromycin base Allergy Anaphylaxis Verified 01/24/21 08:30 iodine Allergy Anaphylaxis Verified 01/24/21 08:30 latex Allergy Rash Verified 01/24/21 08:30 metronidazole [From Flagyl] Allergy Anaphylaxis Verified 01/24/21 08:30 naproxen [From Naprosyn] Allergy Anaphylaxis Verified 01/24/21 08:30 Penicillins Allergy Anaphylaxis Verified 01/24/21 08:30 shellfish derived Allergy Anaphylaxis Verified 01/24/21 08:30 adhesive AdvReac Mild BLISTERS Verified 01/24/21 08:30 Family History Father Asthma Grandfather No problems noted. Grandmother Asthma Brother Lung cancer Diabetes Hypertension Grandfather Asthma Grandmother Asthma Hypertension Mother Diabetes Aunt Diabetes Son Seizures Asthma Surgical History History of appendectomy History of bladder repair surgery History of carpal tunnel surgery of right wrist History of hysterectomy History of orthopedic surgery History of spinal surgery Hx of repair of right rotator cuff S/P left knee surgery S/P umbilical hernia repair, follow-up exam Social History Smoking Status: Current every day smoker tobacco type: cigarettes alcohol intake: never substance use type: does not use what type of physical activity do you participate in: none ROS ROS ED Constitutional Constitutional ED: Reports subjective Eyes Eyes: Denies change in vision ENT ENT ED: Denies rhinorrhea or sore throat Cardiovascular Cardiovascular: Denies chest pain or palpitations Respiratory/Chest Respiratory/Chest: Denies cough, dyspnea or sputum Gastrointestinal Gastrointestinal: Reports abdominal pain, diarrhea, nausea and vomiting; Denies melena Genitourinary Genitourinary ED: Denies dysuria Musculoskeletal Musculoskeletal: Denies back pain or myalgias Integumentary Denies rash Neurologic Neurologic: Denies headache(s) Endocrine Endocrinology: Denies polydipsia or polyuria Allergic/Immunologic Allergic/Immunologic ED: Denies urticaria EXAM Physical Exam Const Vital Signs: 01/24/21 08:30 01/24/21 08:56 01/24/21 10:29 Temperature 96.9 F L 98.0 F Temperature Source Temporal Oral Pulse Rate 84 84 76 Respiratory Rate 18 18 16 Blood Pressure 117/76 117/76 116/64 Blood Pressure Mean 89 89 81 Pulse Ox 100 100 Oxygen Delivery Method Room Air Room Air Positive well nourished, well developed and obese General Appearance ED: well developed and NAD Nutritional Appearance: obese HEENT Reports dry mucous membranes Mouth ED: Yes dry mucous membranes Mouth: dry mucous membranes Eyes General Eye ED: Negative for pale conjunctiva Neck no JVD Resp normal respiratory effort and clear to auscultation bilaterally Auscultation: Negative for rales, rhonchi or wheezes Cardio regular rate and regular rhythm GI normal to inspection, nondistended, normoactive bowel sounds, non-tender and non-distended GI Narrative: Patient initially had some mild epigastric tenderness. However when I was talking with her and on repeat exam it was not present. There is no rebound or guarding. Her abdomen is very soft. Palpation: soft Back/Spine no CVA tenderness Extremity normal to inspection Neuro oriented x3 Sensorium / Orientation: alert Psych mental status grossly normal Skin no rashes or lesions noted MDM MDM MDM Narrative Medical decision making narrative: Patient's blood work shows mild leukopenia which is not uncommon for her. Electrolytes show minimal potassium and decrease but this should resolve. LFTs show no marked abnormalities. Minimal bump of alk phos. Urine shows 0-5 white cells with negative nitrites and very small number of leukocyte esterase. This is not consistent with UTI. Especially since she has not been on antibiotics for days. She has no symptoms of a UTI. I will send a culture but I do not think we need to continue antibiotics. She has a long history of abdominal pain nausea and vomiting as well as problems with tolerating antibiotics because of this. She has Phenergan at home but no Zofran I will write her for that. She is drinking fluids in the room right now when she is reassessed. Lab Data Attestation: I reviewed the patient's lab results. Labs: Laboratory Results - last 24 hr 01/24/21 01/24/21 01/24/21 08:47 08:47 09:30 WBC 4.3 L RBC 4.05 L Hgb 13.5 Hct 40.4 MCV 99.8 H MCH 33.3 H MCHC 33.4 RDW Std Deviation 45.8 H RDW Coeff of Karina 12.4 Plt Count 199 MPV 11.2 Immature Gran % (Auto) 0.500 Neut % (Auto) 53.1 Lymph % (Auto) 37.3 [place] % (Auto) 6.3 Eos % (Auto) 2.1 Baso % (Auto) 0.7 Absolute Neuts (auto) 2.3 Absolute Lymphs (auto) 1.59 Nucleated RBC % 0 Sodium 143 Potassium 3.1 L Chloride 107 Carbon Dioxide 28.0 Anion Gap 8 BUN 11 Creatinine 0.75 Estim Creat Clear Calc 93.08 Est GFR (MDRD) Af Amer 108 Est GFR (MDRD) Non-Af 89 BUN/Creatinine Ratio 14.7 Glucose 104 Calcium 8.7 Total Bilirubin 0.40 AST 14 L ALT 19 Alkaline Phosphatase 149 H Total Protein 7.9 Albumin 3.4 Globulin 4.5 H Albumin/Globulin Ratio 0.8 L Lipase 64 L Urine Color Yellow Urine Clarity Sl. Cloudy Urine pH 5.0 Ur Specific [place] 1.020 Urine Protein 15 H Urine Glucose (UA) Normal Urine Ketones 5 H Urine Occult Blood 50 H Urine Nitrite Negative Urine Bilirubin Negative Urine Urobilinogen Normal Ur Leukocyte Esterase 25 H Urine RBC 0-5 SEEN Urine WBC 0-5 SEEN Ur Squamous Epith Cells 0-5 SEEN Urine Bacteria 1+ Urine Mucus 0 SEEN Discharge Plan Triage Chief Complaint: Nausea/Vomiting/Diarrhea ED Provider: Nelson Monterroso Dx/Rx/DC Orders Clinical Impression: Nausea & vomiting Instructions: ED Vomiting (Adult) Prescriptions: New ondansetron 4 mg tablet,disintegrating 4 mg PO Q8H PRN (Reason: nausea and vomiting) Qty: 10 RF: 0 No Action topiramate 200 mg tablet 200 mg PO QHS RF: 0 carbamazepine 200 mg tablet 200 mg PO BID RF: 0 cyclobenzaprine 10 mg tablet 10 mg PO BID PRN (Reason: BACK PAIN) RF: 0 duloxetine 30 mg capsule,delayed release(DR/EC) 90 mg PO QHS RF: 0 aripiprazole [Abilify] 30 mg tablet 30 mg PO DAILY RF: 0 promethazine 25 mg tablet See Rx Instructions .Route .COMPLEX PRN (Reason: Nausea) Qty: 60 RF: 1 trazodone 100 mg tablet 300 mg PO QHS RF: 0 gabapentin 600 mg tablet 600 mg PO TID RF: 0 hydroxyzine pamoate 25 mg capsule 50 mg PO TID PRN (Reason: Anxiety) RF: 0 prazosin 5 MG capsule 5 mg PO QHS RF: 0 Ultram 50 mg BID RF: 0 esomeprazole magnesium [Nexium] 40 mg capsule,delayed release(DR/EC) 40 mg PO DAILY Qty: 14 RF: 0 epinephrine [EpiPen 2-Raymond] 0.3 mg/0.3 mL auto-injector 0.3 mg IM Q5-15M PRN (Reason: anaphylaxis) Qty: 2 RF: 3 (DME) Handicap Placard See Rx Instructions .Route .MEDSUPPLY Qty: 1 RF: 0 omeprazole 40 mg capsule,delayed release(DR/EC) 40 mg PO DAILY Qty: 60 RF: 2 dicyclomine 10 mg capsule 10 mg PO BID PRN (Reason: abdominal discomfort) Qty: 60 RF: 0 Primary Care Provider: Gayle Munoz Referrals: Gayle Munoz MD [Primary Care Provider] - 3-5 Days if not improving Disposition Disposition: Home, Self Care
[2021-01-24 08:56] VITALS: BP 117/76; PULSE 84; RESP 18; TEMP 36.7; O2SAT 100
[2021-01-24] MEDS: 0.9% Normal Saline 1,000 ML 1000 ML IV (09:04)
[2021-01-24] MEDS: Ondansetron 4 MG/2 ML Vial IV (09:04)
[2021-01-24 09:06] LABS: Absolute Lymphocyte Count 1.59 X10^3/uL (0.83-4.51); Absolute Neutrophil Count 2.3 X10^3/uL (2.0-7.7); Basophil# 0.03 X10^3/uL; Basophil% 0.7 % (0-1); Eosinophil# 0.09 X10^3/uL; Eosinophils% 2.1 % (0-5); Hematocrit 40.4 % (37-47); Hemoglobin 13.5 g/dL (12.0-15.0); Lymphocyte # 1.59 X10^3/ul (0.83-4.51); Lymphocyte % 37.3 % (19-41); Mean Corp Hgb Conc 33.4 g/dL (32-36); Mean Corpuscular Hgb 33.3 pg (27.0-32.0); Mean Corpuscular Volume 99.8 fL (81-99); Mean Platelet Vol. 11.2 fl (6.2-12.0); Monocyte# 0.27 X10^3/uL; Monocyte% 6.3 % (0-10); NRBC Flagged by Analyzer 0 % (0-5); Neutrophil # 2.26 X10^3/uL (2.7-7.7); Neutrophil % 53.1 % (47-70); Platelet Count 199 K/mm3 (150-450); RBC Distribution Width CV 12.4 % (11.6-14.6); RBC Distribution Width SD 45.8 fl (35.1-43.9); Red Blood Count 4.05 M/mm3 (4.2-5.4); White Blood Count 4.3 K/mm3 (4.4-11.0)
[2021-01-24 09:09] LABS: ALB/GLOB Ratio 0.8 RATIO (0.9-2.4); AST(SGOT) 14 U/L (15-37); Alanine Aminotransfer ALT/SGPT 19 U/L (13-56); Albumin, Serum 3.4 g/dL (3.2-5.0); Alkaline Phosphatase 149 U/L (45-117); Anion Gap 8 (5-15); BUN 11 mg/dL (7-18); BUN/Creat Ratio 14.7 RATIO (10-20); Calcium,Total 8.7 mg/dL (8.5-10.1); Chloride 107 mmol/L (98-107); Creatinine, Serum 0.75 mg/dL (0.55-1.02); EST Glomerular Filtration Rate 89 mL/min (>60); Est Glom Filt Rate - Afr Amer 108 mL/min (>60); Estimated Creatinine Clearance 93.08 ml/min; Globulin 4.5 g/dL (2.2-4.2); Glucose 104 mg/dL (74-106); Lipase 64 U/L (73-393); Potassium 3.1 mmol/L (3.5-5.1); Protein, Total 7.9 g/dL (6.4-8.2); Sodium Level 143 mmol/L (136-145)
[2021-01-24 09:32] LABS: Mucous, Urine 0 SEEN /hpf (<or=2+)
[2021-01-24 09:35] LABS: Color, Urine Yellow (Yellow); Glucose, Dipstick Normal (Normal); Ketone-Dipstick 5 mg/dl (Negative); Leukocyte Esterase-Dipstick 25 /ul (Negative); Nitrite-Dipstick Negative (Negative); Occult Blood-Urine 50 /ul (Negative); Protein-Dipstick 15 mg/dl (Negative); Urine Bilirubin Dipstick Negative (Negative); Urine Clarity Sl. Cloudy (Clear); Urine Urobilinogen Normal (Normal)
[2021-01-24 09:47] LABS: Bacteria 1+ /hpf (None Seen); Red Blood Cells-Urine 0-5 SEEN /hpf (0-5); Squamous Epithelial Cells - UA 0-5 SEEN /hpf (5-10); White Blood Cells 0-5 SEEN /hpf (0-5)
[2021-01-24 10:29] VITALS: BP 116/64; PULSE 76; RESP 16
[2021-01-24] MEDS: Morphine 4 MG/ML Syringe IV (11:47)
[2021-01-24 13:00] VITALS: BP 113/69; PULSE 77; RESP 15; O2SAT 96
[2021-01-24 13:27] VITALS: RESP 18
== END 2021-01-24 13:28 | disposition home or self-care (01) ==
PROVIDERS: Emergency Provider Emergency Medicine; PCP Internal Medicine
DX: R11.2 Nausea with vomiting, unspecified (principal); E66.9 Obesity, unspecified; F17.210 Nicotine dependence, cigarettes, uncomplicated; R19.7 Diarrhea, unspecified
CPT/HCPCS: 80053; 81001; 83690; 85025; 96361; 96374; 96375; 99283; J7030; A4216; J2405

== ENCOUNTER → 2021-01-26 09:31 | Outpatient (CLI) | payer MEDICAID, SELFPAY ==
[2021-01-26 09:32] LABS: Mucous, Urine 0 SEEN /hpf (<or=2+); White Blood Cells 0 SEEN /hpf (0-5)
[2021-01-26 12:06] LABS: Color, Urine Yellow (Yellow); Glucose, Dipstick Normal (Normal); Ketone-Dipstick Negative (Negative); Leukocyte Esterase-Dipstick Negative /ul (Negative); Nitrite-Dipstick Negative (Negative); Occult Blood-Urine 25 /ul (Negative); Protein-Dipstick Negative (Negative); Urine Bilirubin Dipstick Negative (Negative); Urine Clarity Sl. Cloudy (Clear); Urine Urobilinogen Normal (Normal)
[2021-01-26 12:16] LABS: Bacteria RARE /hpf (None Seen); Red Blood Cells-Urine 0-5 SEEN /hpf (0-5); Squamous Epithelial Cells - UA 0-5 SEEN /hpf (5-10)
== END ==
PROVIDERS: PCP Internal Medicine; Referring Provider Internal Medicine; Visit Provider Internal Medicine
DX: N39.0 Urinary tract infection, site not specified (principal)
CPT/HCPCS: 81001; 87086; 87088

== ENCOUNTER 2021-02-07 17:05 | Emergency (ER) | payer MEDICAID, SELFPAY ==
[2021-02-07 17:06] VITALS: BP 113/78; PULSE 94; RESP 16; TEMP 37.1; O2SAT 99; BMI 34.4
== END 2021-02-07 17:50 | disposition left against medical advice (07) ==
LOC: ED 17:52
PROVIDERS: PCP Internal Medicine
DX: Z53.21 Procedure and treatment not carried out due to patient leaving prior to being seen by health care provider (principal)

== ENCOUNTER 2021-02-15 09:31 | Emergency (ER) | payer MEDICAID, SELFPAY ==
[2021-02-15 09:32] VITALS: BP 126/62; PULSE 100; RESP 18; TEMP 36.1; O2SAT 98; BMI 34.4
--- NOTE | 2021-02-15 10:27 | CT_ITS ---
STUDY: CT CERVICAL SPINE WITHOUT CONTRAST REASON FOR EXAM: Female, 45 years old. Injury RADIATION DOSAGE (If Supplied By Facility): CTDIvol = ( 19.94 ) mGy, DLP = ( 421.53 ) mGycm TECHNIQUE: High resolution transaxial imaging was performed without contrast material. Sagittal and coronal images were reconstructed. Individualized dose optimization techniques were used for this CT. COMPARISON: Comparison is made with prior study dated 12/30/2020. FINDINGS: Normal craniovertebral junction. Normal anterior atlantoaxial articulation. Normal odontoid process. There is straightening of the normal cervical lordosis. Normal vertebral bodies and posterior osseous elements. C2-3: Normal endplates. Normal disc height and morphology. Normal central canal and intervertebral neuroforamina. C3-4: Normal endplates. Normal disc height and morphology. Normal central canal and intervertebral neuroforamina. C4-5: Normal endplates. Normal disc height and morphology. Normal central canal and intervertebral neuroforamina. C5-6: Normal endplates. Normal disc height and morphology. Normal central canal and intervertebral neuroforamina. C6-7: Moderate degree of disc space narrowing. Anterior spondylosis. No significant spinal stenosis seen. C7-T1: Normal endplates. Normal disc height and morphology. Normal central canal and intervertebral neuroforamina. Normal visualized soft tissue structures. CT/Spine Cervical without Contras IMPRESSION: Degenerative changes, as described above. Electronically Signed: Amado Bernardo MD at 10:57 EST , Service support ,
--- NOTE | 2021-02-15 10:28 | EDS_ITS ---
HPI History of Present Illness Chief Complaint: Back Detail of Chief Complaint: Fall with neck injury Informant: patient Onset/Context/Timing Onset: Today Current Severity: Mild Maximum Severity: Mild Associated Symptoms Associated Symptoms: Negative for Parasthesias, Weakness, Loss of function, Inability to ambulate, Loss of consciousness and Amnesia Narrative Narrative: 44-year-old female states that she lost her balance and fell and when she was falling she injured the right side of her neck. She complains of neck pain and pain with rotation of her neck to the right. She denies any loss of consciousness. Prior similar symptoms: No Recent Illness/Hospitalization: No [facility] Medical History Abdominal pain Acute cystitis Arthritis Back problem Lamar's palsy Blurry vision, left eye Cancer Carpal tunnel syndrome Cellulitis Cervical cancer Dizziness Fall Fibromyalgia Gastrointestinal problem Headache Hearing problem Hematuria Hives Hx of emotional problems Insect bite Interstitial cystitis Irritable bowel syndrome Kidney stones Lipoma Neuropathy Osteoarthritis Seasonal allergies Seizures Stroke Ulcer Uterine cancer UTI (urinary tract infection) Home Medications topiramate 200 mg tablet 200 mg PO QHS tab 08/15/18 [History Last Taken Unknown] cyclobenzaprine 10 mg tablet 10 mg PO BID PRN tab 01/23/19 [History Last Taken 02/10/20] duloxetine 30 mg capsule,delayed release 90 mg PO QHS 06/09/19 [History Last Taken Unknown] epinephrine 0.3 mg/0.3 mL injection, auto-injector 0.3 mg IM Q5-15M PRN #2 ea 08/11/19 [Rx Last Taken Unknown] prazosin 5 mg PO QHS 09/17/19 [History Last Taken Unknown] trazodone 100 mg tablet 300 mg PO QHS tab 10/28/19 [History Last Taken Unknown] carbamazepine 200 mg tablet 200 mg PO BID tab 03/22/20 [History Last Taken Unknown] gabapentin 600 mg tablet 600 mg PO TID tab 03/22/20 [History Last Taken Unknown] hydroxyzine pamoate 25 mg capsule 50 mg PO TID PRN 03/22/20 [History Last Taken Unknown] Handicap Placard #1 ea 05/03/20 [Rx Last Taken Unknown] promethazine 25 mg tablet See Rx Instructions .ROUTE .COMPLEX PRN #60 tab 11/01/20 [Rx Last Taken Unknown] Ultram 50 mg BID 12/30/20 [History Last Taken Unknown] aripiprazole 30 mg tablet 30 mg PO DAILY tab 01/07/21 [History Last Taken Unknown] dicyclomine 10 mg capsule 10 mg PO BID PRN #60 cap 01/21/21 [Rx Last Taken Unknown] Allergy/AdvReac Type Severity Reaction Status Date / Time venom-honey bee Allergy Severe severe Verified 02/15/21 09:58 venom-wasp Allergy Severe severe Verified 02/15/21 09:58 ciprofloxacin [From Cipro] Allergy Rash Verified 02/15/21 09:58 erythromycin base Allergy Anaphylaxis Verified 02/15/21 09:58 iodine Allergy Anaphylaxis Verified 02/15/21 09:58 latex Allergy Rash Verified 02/15/21 09:58 metronidazole [From Flagyl] Allergy Anaphylaxis Verified 02/15/21 09:58 naproxen [From Naprosyn] Allergy Anaphylaxis Verified 02/15/21 09:58 Penicillins Allergy Anaphylaxis Verified 02/15/21 09:58 shellfish derived Allergy Anaphylaxis Verified 02/15/21 09:58 adhesive AdvReac Mild BLISTERS Verified 02/15/21 09:58 Family History Father Asthma Grandfather No problems noted. Grandmother Asthma Brother Lung cancer Diabetes Hypertension Grandfather Asthma Grandmother Asthma Hypertension Mother Diabetes Aunt Diabetes Son Seizures Asthma Surgical History History of appendectomy History of bladder repair surgery History of carpal tunnel surgery of right wrist History of hysterectomy History of orthopedic surgery History of spinal surgery Hx of repair of right rotator cuff S/P left knee surgery S/P umbilical hernia repair, follow-up exam Social History Smoking Status: Current every day smoker tobacco type: cigarettes alcohol intake: never substance use type: does not use what type of physical activity do you participate in: none ROS ROS ED ROS Narrative Nausea, vomiting and diarrhea intermittently for the last month. Review of Systems ROS Unobtainable: Denies due to encephalopathy Constitutional Constitutional ED: Denies fever(s) or subjective Eyes Eyes: Denies change in vision ENT ENT ED: Denies ear pain Cardiovascular Cardiovascular: Denies chest pain or palpitations Respiratory/Chest Respiratory/Chest: Denies cough or dyspnea Gastrointestinal Gastrointestinal: Reports diarrhea, nausea and vomiting; Denies abdominal pain Genitourinary Genitourinary ED: Denies dysuria or hematuria Musculoskeletal Musculoskeletal: Denies myalgias Integumentary Denies rash Neurologic Neurologic: Denies headache(s) Psychiatric Psychiatric: Denies depression Endocrine Endocrinology: Denies polyuria Hematologic/Lymphatic Hematologic/Lymphatic: Denies easy bruising Allergic/Immunologic Allergic/Immunologic ED: Denies urticaria EXAM Physical Exam Narrative Exam Narrative: 45-year female no acute distress vital signs stable afebrile. H EENT exam unremarkable atraumatic. Nontender. No hematoma. C-spine mostly tender in the right side of the neck. Really no specific C-spine tenderness. Trachea midline. Lungs clear to auscultation bilaterally. Heart regular rhythm no murmur. Chest were nontender. Abdomen soft nontender. Moving all 4 extremities. Normal motor strength and sensation. Normal program research specialist strength dorsi and plantar flexion of the feet. Back nontender. Neurologically awake alert and no focal motor deficits. Patient does hold her head neck rotated to the left. Const Vital Signs: 02/15/21 09:32 02/15/21 12:17 Temperature 97 F L Temperature Source Temporal Pulse Rate 100 86 Respiratory Rate 18 17 Blood Pressure 126/62 H 124/63 H Blood Pressure Mean 83 83 Pulse Ox 98 97 Oxygen Delivery Method Room Air Room Air Positive well nourished and well developed; Negative for obese, cachectic, contractures or unkempt General Appearance ED: well developed and NAD; Negative for unkempt, cachectic or contractures Nutritional Appearance: Negative for cachectic or obese HEENT atraumatic; Negative for trauma or tenderness Eyes PERRL and EOMs intact bilaterally Neck No full ROM Neck Narrative: Right lateral neck soft tissue tenderness. Rotated to the left. General: tenderness Chest Wall inspection of chest normal and palpation of chest normal Resp normal respiratory effort and clear to auscultation bilaterally Auscultation: Negative for rales, rhonchi or wheezes Cardio regular rhythm, S1 normal heart sound, S2 normal heart sound and no murmurs Rate: regular rate GI normal to inspection, nondistended, normoactive bowel sounds, non-tender, non- distended and no masses Inspection: Negative for abdominal distention Auscultation: normoactive bowel sounds Palpation: soft; Negative for tender, guarding or rebound tenderness present Back/Spine normal to inspection and no thoracic nor lumbar tenderness General Back: Negative for CVA tenderness Thoracic Spine / Upper Back: Negative for thoracic spinal tenderness Extremity normal to inspection and full ROM General Extremety ED: Negative for deformity, edema or tenderness General Extremity: Negative for deformity or edema Neuro oriented x3, CN's II-XII intact bilaterally, moves all extremities, no focal motor deficits and no sensory deficits noted Sensorium / Orientation: alert, oriented to person, oriented to place, oriented to time and orientation impaired; Negative for lethargic or stuporous Motor Exam: strength 5/5 throughout Psych mental status grossly normal and thought process normal Appearance: Negative for unkempt Mood & Affect: Negative for depressed or tearful Skin no rashes or lesions noted and no wounds MDM MDM MDM Narrative Medical decision making narrative: 45 female fall with complaint neck injury neck pain. I think this is musculoskeletal in etiology will obtain a CT of her C-spine due to her pain and trouble with range of motion. Repeat exam patient is doing well at 12:50 PM. CAT scan shows chronic changes of the cervical spine but no acute fracture. Read by the radiologist reviewed by me. Patient be discharged home. Ice the area. Hot shower warm bath relax muscles. Motrin for pain and inflammation and Tylenol. Radiography Diagnostic Testing: Clinical Impression(s) from Imaging Studies Cervical Spine CT 02/15/21 10:27 IMPRESSION: Degenerative changes, as described above. Electronically Signed: Amado Bernardo MD at 10:57 EST , Service support , Discharge Plan Triage Chief Complaint: Back ED Provider: Herber Caro Dx/Rx/DC Orders Clinical Impression: Fall, Neck strain Instructions: ED Neck Sprain or Strain Prescriptions: No Action topiramate 200 mg tablet 200 mg PO QHS RF: 0 carbamazepine 200 mg tablet 200 mg PO BID RF: 0 cyclobenzaprine 10 mg tablet 10 mg PO BID PRN (Reason: BACK PAIN) RF: 0 duloxetine 30 mg capsule,delayed release(DR/EC) 90 mg PO QHS RF: 0 aripiprazole [Abilify] 30 mg tablet 30 mg PO DAILY RF: 0 promethazine 25 mg tablet See Rx Instructions .Route .COMPLEX PRN (Reason: Nausea) Qty: 60 RF: 1 trazodone 100 mg tablet 300 mg PO QHS RF: 0 gabapentin 600 mg tablet 600 mg PO TID RF: 0 hydroxyzine pamoate 25 mg capsule 50 mg PO TID PRN (Reason: Anxiety) RF: 0 prazosin 5 MG capsule 5 mg PO QHS RF: 0 Ultram 50 mg tablet 50 mg BID RF: 0 epinephrine [EpiPen 2-Raymond] 0.3 mg/0.3 mL auto-injector 0.3 mg IM Q5-15M PRN (Reason: anaphylaxis) Qty: 2 RF: 3 (DME) Handicap Placard See Rx Instructions .Route .MEDSUPPLY Qty: 1 RF: 0 dicyclomine 10 mg capsule 10 mg PO BID PRN (Reason: abdominal discomfort) Qty: 60 RF: 0 Primary Care Provider: Gayle Munoz Referrals: Gayle Munoz MD [Primary Care Provider] - 1 Week if not improving Activity Restrictions/Additional Instructions: Hot shower, warm bath and massage to your neck muscles. Motrin and/or Tylenol for pain. Follow-up if not improving. Disposition Disposition: Home, Self Care
[2021-02-15] MEDS: Ibuprofen 400 MG Tablet 800 MG PO (11:30)
[2021-02-15 12:17] VITALS: BP 124/63; PULSE 86; RESP 17; O2SAT 97
== END 2021-02-15 12:58 | disposition home or self-care (01) ==
PROVIDERS: Emergency Provider Emergency Medicine; PCP Internal Medicine
DX: S16.1XXA Strain of muscle, fascia and tendon at neck level, initial encounter (principal); F17.210 Nicotine dependence, cigarettes, uncomplicated; M79.7 Fibromyalgia; K58.9 Irritable bowel syndrome, unspecified; M19.90 Unspecified osteoarthritis, unspecified site; Z79.899 Other long term (current) drug therapy; W19.XXXA Unspecified fall, initial encounter
CPT/HCPCS: 72125; 99283

== ENCOUNTER → 2021-03-09 12:18 | Outpatient (CLI) | payer MEDICAID, SELFPAY ==
[2021-03-09 13:17] LABS: Mucous, Urine 0 SEEN /hpf (<or=2+); White Blood Cells 0 SEEN /hpf (0-5)
[2021-03-09 13:38] LABS: Color, Urine Yellow (Yellow); Glucose, Dipstick Normal (Normal); Ketone-Dipstick Negative (Negative); Leukocyte Esterase-Dipstick Negative /ul (Negative); Nitrite-Dipstick Positive (Negative); Occult Blood-Urine 10 /ul (Negative); Protein-Dipstick Negative (Negative); Specific Gravity, Urine 1.015 (1.002-1.030); Urine Bilirubin Dipstick Negative (Negative); Urine Clarity Sl. Cloudy (Clear); Urine Urobilinogen Normal (Normal)
[2021-03-09 13:55] LABS: Bacteria 4+ /hpf (None Seen); Red Blood Cells-Urine 0-5 SEEN /hpf (0-5); Squamous Epithelial Cells - UA 0-5 SEEN /hpf (5-10)
== END ==
PROVIDERS: PCP Internal Medicine; Referring Provider Physician Assistant; Visit Provider Physician Assistant
DX: R05.9 Cough, unspecified (principal); R30.0 Dysuria; R10.9 Unspecified abdominal pain
CPT/HCPCS: 81001; 87077; 87086; 87088; 87186; 87635; U0005; U0003

== ENCOUNTER → 2021-03-14 11:09 | Outpatient (CLI) | payer MEDICAID, SELFPAY ==
--- NOTE | 2021-03-14 11:31 | RAD_ITS ---
STUDY: X-RAY CHEST REASON FOR EXAM: Female, 45 years old. Fever and cough TECHNIQUE: PA and lateral views of the chest. COMPARISON: None. FINDINGS: Incidental note is made of a neurostimulator wires overlying the lower thoracic spine The lungs are clear and expanded. There is no demonstrated pleural abnormality. Normal size heart. Normal mediastinum and janette. Normal visualized pulmonary arteries. Normal visualized aortic arch and descending thoracic aorta. Normal visualized thoracic spine. Normal visualized ribs, clavicles, and shoulders. There is no demonstrated abnormality of the visualized soft tissue structures of the upper abdomen. RAD/Chest PA and Lateral IMPRESSION: Normal x-ray examination of the chest. Electronically Signed: Alexander Myers MD at 16:52 EST , Service support ,
== END ==
PROVIDERS: PCP Internal Medicine; Referring Provider Physician Assistant; Visit Provider Physician Assistant
DX: R05.9 Cough, unspecified (principal); J06.9 Acute upper respiratory infection, unspecified
CPT/HCPCS: 71046; 87633; 87635; U0005; U0003

== ENCOUNTER → 2021-03-30 09:26 | Outpatient (CLI) | payer MEDICAID, SELFPAY ==
[2021-03-30 12:29] LABS: Anion Gap 3 (5-15); BUN 13 mg/dL (7-18); Chloride 112 mmol/L (98-107); Creatinine, Serum 0.68 mg/dL (0.55-1.02); EST Glomerular Filtration Rate 99 mL/min (>60); Est Glom Filt Rate - Afr Amer 120 mL/min (>60); Glucose 120 mg/dL (74-106); Potassium 3.8 mmol/L (3.5-5.1); Sodium Level 142 mmol/L (136-145)
== END ==
PROVIDERS: PCP Internal Medicine; Referring Provider Internal Medicine; Visit Provider Internal Medicine
DX: E87.6 Hypokalemia (principal)
CPT/HCPCS: 36415; 80048

== ENCOUNTER 2021-04-08 09:37 | Emergency (ER) | payer MEDICAID, SELFPAY ==
[2021-04-08 09:37] VITALS: BP 114/47; PULSE 93; RESP 16; TEMP 36.1; O2SAT 100; BMI 34.4
--- NOTE | 2021-04-08 10:11 | EDS_ITS ---
HPI HPI - Female History of Present Illness Chief Complaint: Vag Bleeding Narrative Narrative: 45-year-old female with history of kidney stones presenting with hematuria. She states he is not having a significant amount of dysuria or urinary frequency. She does admit to some right flank pain. She describes it as sharp she states she called her urologist Dr. Riggs who told her to come to the ED for evaluation. Patient states that all of her kidney stones are distant and they passed on their own. She does have history of UTI. She is not had any fever but does admit to some nausea. No diarrhea or constipation. [facility] Medical History Abdominal pain Acute cystitis Arthritis Back problem Lamar's palsy Blurry vision, left eye Cancer Carpal tunnel syndrome Cellulitis Cervical cancer Dizziness Elevated blood pressure reading Fall Fibromyalgia Gastrointestinal problem Headache Hearing problem Hematuria Hives Hx of emotional problems Hypokalemia Insect bite Interstitial cystitis Irritable bowel syndrome Kidney stones Lipoma Neuropathy Osteoarthritis Seasonal allergies Seizures Stroke Ulcer Uterine cancer UTI (urinary tract infection) Home Medications topiramate 200 mg tablet 200 mg PO QHS tab 08/15/18 [History Last Taken Unknown] duloxetine 30 mg capsule,delayed release 90 mg PO QHS 06/09/19 [History Last Taken Unknown] prazosin 5 mg PO QHS 09/17/19 [History Last Taken Unknown] trazodone 100 mg tablet 300 mg PO QHS tab 10/28/19 [History Last Taken Unknown] carbamazepine 200 mg tablet 200 mg PO BID tab 03/22/20 [History Last Taken Unknown] gabapentin 600 mg tablet 600 mg PO TID tab 03/22/20 [History Last Taken Unknown] hydroxyzine pamoate 25 mg capsule 50 mg PO TID PRN 03/22/20 [History Last Taken Unknown] Handicap Placard #1 ea 05/03/20 [Rx Last Taken Unknown] Ultram 50 mg BID 12/30/20 [History Last Taken Unknown] aripiprazole 30 mg tablet 30 mg PO DAILY tab 01/07/21 [History Last Taken Unknown] dicyclomine 10 mg capsule 10 mg PO BID PRN #60 cap 01/21/21 [Rx Last Taken Unknown] epinephrine 0.3 mg/0.3 mL injection, auto-injector 0.3 mg IM Q5-15M PRN #2 ea 02/24/21 [Rx Last Taken Unknown] promethazine 25 mg tablet 25 mg PO BID PRN #60 tab 02/24/21 [Rx Last Taken Unknown] benzonatate 200 mg capsule 200 mg PO TID PRN #30 cap 03/14/21 [Rx Last Taken Unknown] ondansetron 8 mg disintegrating tablet 8 mg PO Q8H PRN #30 tab 03/14/21 [Rx Last Taken Unknown] baclofen 10 mg tablet 10 mg PO TID 03/23/21 [History Last Taken Unknown] sumatriptan succinate 50 mg tablet See Rx Instructions PO .COMPLEX #14 tab 03/23/21 [Rx Last Taken Unknown] levetiracetam 500 mg tablet 500 mg PO BID #180 tab 04/05/21 [Rx Last Taken Unknown] Allergy/AdvReac Type Severity Reaction Status Date / Time venom-honey bee Allergy Severe severe Verified 04/08/21 09:40 venom-wasp Allergy Severe severe Verified 04/08/21 09:40 ciprofloxacin [From Cipro] Allergy Rash Verified 04/08/21 09:40 erythromycin base Allergy Anaphylaxis Verified 04/08/21 09:40 iodine Allergy Anaphylaxis Verified 04/08/21 09:40 latex Allergy Rash Verified 04/08/21 09:40 metronidazole [From Flagyl] Allergy Anaphylaxis Verified 04/08/21 09:40 naproxen [From Naprosyn] Allergy Anaphylaxis Verified 04/08/21 09:40 Penicillins Allergy Anaphylaxis Verified 04/08/21 09:40 shellfish derived Allergy Anaphylaxis Verified 04/08/21 09:40 adhesive AdvReac Mild BLISTERS Verified 04/08/21 09:40 Family History Father Asthma Grandfather No problems noted. Grandmother Asthma Brother Lung cancer Diabetes Hypertension Grandfather Asthma Grandmother Asthma Hypertension Mother Diabetes Aunt Diabetes Son Seizures Asthma Surgical History History of appendectomy History of bladder repair surgery History of carpal tunnel surgery of right wrist History of hysterectomy History of orthopedic surgery History of spinal surgery Hx of repair of right rotator cuff S/P left knee surgery S/P umbilical hernia repair, follow-up exam Social History Smoking Status: Current every day smoker tobacco type: cigarettes alcohol intake: never substance use type: does not use what type of physical activity do you participate in: none ROS ROS ED Constitutional Constitutional ED: Denies chills or fever(s) Eyes Eyes: Denies blurry vision or diplopia ENT ENT ED: Denies rhinorrhea or sore throat Cardiovascular Cardiovascular: Denies chest pain or palpitations Respiratory/Chest Respiratory/Chest: Denies cough, dyspnea or stridor Gastrointestinal Gastrointestinal: Reports nausea Genitourinary Genitourinary ED: Reports hematuria; Denies dysuria Musculoskeletal Musculoskeletal: Reports other Details: Right flank pain ; Denies arthralgias or myalgias Integumentary Denies Abrasions or rash Neurologic Neurologic: Denies headache(s) or paresthesias EXAM Physical Exam Const Vital Signs: 04/08/21 09:37 Temperature 97.0 F L Temperature Source Temporal Pulse Rate 93 Respiratory Rate 16 Blood Pressure 114/47 L Blood Pressure Mean 69 Pulse Ox 100 Oxygen Delivery Method Room Air Positive well nourished and obese General Appearance ED: NAD; Negative for pallor Nutritional Appearance: obese HEENT Reports moist mucous membranes Negative for trauma Eyes PERRL and EOMs intact bilaterally Resp normal respiratory effort and clear to auscultation bilaterally Cardio regular rate and regular rhythm GI normal to inspection, nondistended, normoactive bowel sounds Back/Spine General Back: CVA tenderness right Extremity normal to inspection Neuro oriented x3 Sensorium / Orientation: alert Psych mental status grossly normal Skin General Skin Exam: Negative for jaundice or pallor MDM MDM MDM Narrative Medical decision making narrative: Patient given morphine, Zofran. She feels improved with this. Urinalysis shows a small amount of occult blood without presence of infection. CBC shows no leukocytosis. Hemoglobin hematocrit are stable. Renal function electrolytes are normal. CT of the abdomen pelvis without contrast is performed and there is no visualization of hydronephrosis or kidney/ureteral stones. Patient counseled that is possible she has passed a stone but given her normal work-up feel she is safe to go home. She acknowledges understanding of this and feels amenable to this plan. Patient will follow up with her urologist. Impression: 1. Right flank pain 2. Hematuria Lab Data Attestation: I reviewed the patient's lab results. Labs: Laboratory Results - last 24 hr 1204/08/21 04/08/21 10:44 11:03 11:03 WBC 5.1 RBC 3.77 L Hgb 12.5 Hct 36.9 L MCV 97.9 MCH 33.2 H MCHC 33.9 RDW Std Deviation 45.0 H RDW Coeff of Karina 12.5 Plt Count 172 MPV 11.2 Immature Gran % (Auto) 0.200 Neut % (Auto) 55.4 Lymph % (Auto) 33.8 Grant % (Auto) 5.7 Eos % (Auto) 4.3 Baso % (Auto) 0.6 Absolute Neuts (auto) 2.8 Absolute Lymphs (auto) 1.73 Nucleated RBC % 0 Sodium 143 Potassium 3.7 Chloride 111 H Carbon Dioxide 26.0 Anion Gap 6 BUN 15 Creatinine 0.67 Estim Creat Clear Calc 104.20 Est GFR (MDRD) Af Amer 122 Est GFR (MDRD) Non-Af 101 BUN/Creatinine Ratio 22.3 H Glucose 95 Calcium 8.9 Urine Color Yellow Urine Clarity Sl. Cloudy Urine pH 6.5 Ur Specific [place] 1.010 Urine Protein Negative Urine Glucose (UA) Normal Urine Ketones Negative Urine Occult Blood 10 H Urine Nitrite Negative Urine Bilirubin Negative Urine Urobilinogen Normal Ur Leukocyte Esterase Negative Urine RBC 0 SEEN Urine WBC 0 SEEN Ur Squamous Epith Cells 0 SEEN Urine Bacteria RARE Urine Mucus RARE Radiography Diagnostic Testing: Clinical Impression(s) from Imaging Studies Abdomen/Pelvis CT 04/08/21 11:19 IMPRESSION: 1. No acute abdominal or pelvic abnormality. 2. No evidence of urinary tract stone disease. 3. No interval change. Individualized dose optimization techniques were used for this CT. at 1159 Reported and signed by: Mark Soto MD Electronically Signed: Mark Soto MD at 11:58 EST Tel , Service support , Discharge Plan Triage Chief Complaint: Vag Bleeding ED Provider: Toni Mojica Dx/Rx/DC Orders Instructions: ED Flank Pain, Uncertain Cause Prescriptions: No Action topiramate 200 mg tablet 200 mg PO QHS RF: 0 carbamazepine 200 mg tablet 200 mg PO BID RF: 0 duloxetine 30 mg capsule,delayed release(DR/EC) 90 mg PO QHS RF: 0 aripiprazole [Abilify] 30 mg tablet 30 mg PO DAILY RF: 0 baclofen 10 mg tablet 10 mg PO TID RF: 0 sumatriptan succinate 50 mg tablet See Rx Instructions PO .COMPLEX Qty: 14 RF: 2 ondansetron 8 mg tablet,disintegrating 8 mg PO Q8H PRN (Reason: nausea and vomiting) Qty: 30 RF: 0 benzonatate 200 mg capsule 200 mg PO TID PRN (Reason: cough) Qty: 30 RF: 1 trazodone 100 mg tablet 300 mg PO QHS RF: 0 gabapentin 600 mg tablet 600 mg PO TID RF: 0 hydroxyzine pamoate 25 mg capsule 50 mg PO TID PRN (Reason: Anxiety) RF: 0 prazosin 5 MG capsule 5 mg PO QHS RF: 0 Ultram 50 mg tablet 50 mg BID RF: 0 (DME) Handicap Placard See Rx Instructions .Route .MEDSUPPLY Qty: 1 RF: 0 dicyclomine 10 mg capsule 10 mg PO BID PRN (Reason: abdominal discomfort) Qty: 60 RF: 0 promethazine 25 mg tablet 25 mg PO BID PRN (Reason: Nausea) Qty: 60 RF: 1 Hold Instructions: Duplicate Order epinephrine [EpiPen 2-Raymond] 0.3 mg/0.3 mL auto-injector 0.3 mg IM Q5-15M PRN (Reason: anaphylaxis) Qty: 2 RF: 3 levetiracetam [Keppra] 500 mg tablet 500 mg PO BID Qty: 180 RF: 1 Primary Care Provider: Gayle Munoz Referrals: Gayle Munoz MD [Primary Care Provider] - Disposition Disposition: Home, Self Care
[2021-04-08 10:51] LABS: Red Blood Cells-Urine 0 SEEN /hpf (0-5); Squamous Epithelial Cells - UA 0 SEEN /hpf (5-10); White Blood Cells 0 SEEN /hpf (0-5)
[2021-04-08 10:58] LABS: Color, Urine Yellow (Yellow); Glucose, Dipstick Normal (Normal); Ketone-Dipstick Negative (Negative); Leukocyte Esterase-Dipstick Negative /ul (Negative); Nitrite-Dipstick Negative (Negative); Occult Blood-Urine 10 /ul (Negative); Protein-Dipstick Negative (Negative); Urine Bilirubin Dipstick Negative (Negative); Urine Clarity Sl. Cloudy (Clear); Urine Urobilinogen Normal (Normal); Urine pH 6.5 (5.0 - 8.0)
[2021-04-08 11:08] LABS: Bacteria RARE /hpf (None Seen); Mucous, Urine RARE /hpf (<or=2+)
[2021-04-08 11:12] LABS: Absolute Lymphocyte Count 1.73 X10^3/uL (0.83-4.51); Absolute Neutrophil Count 2.8 X10^3/uL (2.0-7.7); Basophil# 0.03 X10^3/uL; Basophil% 0.6 % (0-1); Eosinophil# 0.22 X10^3/uL; Eosinophils% 4.3 % (0-5); Hematocrit 36.9 % (37-47); Hemoglobin 12.5 g/dL (12.0-15.0); Lymphocyte # 1.73 X10^3/ul (0.83-4.51); Lymphocyte % 33.8 % (19-41); Mean Corp Hgb Conc 33.9 g/dL (32-36); Mean Corpuscular Hgb 33.2 pg (27.0-32.0); Mean Corpuscular Volume 97.9 fL (81-99); Mean Platelet Vol. 11.2 fl (6.2-12.0); Monocyte# 0.29 X10^3/uL; Monocyte% 5.7 % (0-10); NRBC Flagged by Analyzer 0 % (0-5); Neutrophil # 2.84 X10^3/uL (2.7-7.7); Neutrophil % 55.4 % (47-70); Platelet Count 172 K/mm3 (150-450); RBC Distribution Width CV 12.5 % (11.6-14.6); Red Blood Count 3.77 M/mm3 (4.2-5.4); White Blood Count 5.1 K/mm3 (4.4-11.0)
[2021-04-08] MEDS: Ondansetron 4 MG/2 ML Vial IV (11:14)
[2021-04-08] MEDS: Morphine 4 MG/ML Syringe IV (11:15)
--- NOTE | 2021-04-08 11:19 | CT_ITS ---
EXAM: CT ABDOMEN AND PELVIS WITHOUT INTRAVENOUS CONTRAST : 1975 CLINICAL INDICATION: right flank pain TECHNIQUE: Helically acquired images were obtained of the abdomen and pelvis without intravenous contrast. This CT exam was performed using one or more of the following dose reduction techniques: automated exposure control, adjustment of the mA and/or kV according to patient size, and/or use of iterative reconstruction technique. This report was created using [employer] report generation technology. COMPARISON: January 15, 2021 FINDINGS: LOWER THORAX: Unremarkable. Lung bases are clear. No cardiomegaly. No significant pericardial effusion. ABDOMEN: LIVER: Unremarkable. Homogeneous. GALLBLADDER AND BILE DUCTS: Unremarkable. No calcified gallstones. No gallbladder distention or wall edema. No intra- or extrahepatic biliary ductal dilation. PANCREAS: Unremarkable. No focal cystic mass. SPLEEN: Unremarkable. Normal size without focal cystic or solid mass. ADRENALS: Unremarkable. No nodules. KIDNEYS AND URETERS: No evidence of urinary tract stone disease. Normal renal size and position. No hydronephrosis. STOMACH AND BOWEL: Unremarkable. No stomach or bowel distention. No focal inflammatory change. PELVIS: APPENDIX: Surgical clips at the base of the cecum consistent with an appendectomy. BLADDER: Unremarkable. REPRODUCTIVE: Hysterectomy noted. ABDOMEN and PELVIS: INTRAPERITONEAL SPACE: Unremarkable. No ascites or other fluid collection. No free air. BONES/JOINTS: L5-S1 disc implants again seen. No suspicious lytic or blastic abnormality. SOFT TISSUES: Unremarkable. No discrete abdominal or pelvic wall hernia. VASCULATURE: Unremarkable. Abdominal aorta is non-dilated. LYMPH NODES: Unremarkable. No enlarged lymph nodes. CT/Abdomen/Pelvis without Cont IMPRESSION: 1. No acute abdominal or pelvic abnormality. 2. No evidence of urinary tract stone disease. 3. No interval change. Individualized dose optimization techniques were used for this CT. at 1159 Reported and signed by: Mark Soto MD Electronically Signed: Mark Soto MD at 11:58 EST Tel , Service support ,
[2021-04-08 11:25] LABS: Anion Gap 6 (5-15); BUN 15 mg/dL (7-18); BUN/Creat Ratio 22.3 RATIO (10-20); Calcium,Total 8.9 mg/dL (8.5-10.1); Chloride 111 mmol/L (98-107); Creatinine, Serum 0.67 mg/dL (0.55-1.02); EST Glomerular Filtration Rate 101 mL/min (>60); Est Glom Filt Rate - Afr Amer 122 mL/min (>60); Glucose 95 mg/dL (74-106); Potassium 3.7 mmol/L (3.5-5.1); Sodium Level 143 mmol/L (136-145)
== END 2021-04-08 13:31 | disposition home or self-care (01) ==
PROVIDERS: Emergency Provider Student in an Organized Health Care Education/Training Program; PCP Internal Medicine
DX: N93.9 Abnormal uterine and vaginal bleeding, unspecified (principal); N30.11 Interstitial cystitis (chronic) with hematuria; Z87.442 Personal history of urinary calculi; M19.90 Unspecified osteoarthritis, unspecified site; M79.7 Fibromyalgia; K58.9 Irritable bowel syndrome, unspecified; G40.909 Epilepsy, unspecified, not intractable, without status epilepticus; G62.9 Polyneuropathy, unspecified; Z79.899 Other long term (current) drug therapy; F17.210 Nicotine dependence, cigarettes, uncomplicated
CPT/HCPCS: 74176; 80048; 81001; 85025; 96374; 96375; 99283; A4216; J2405

== ENCOUNTER 2021-04-12 15:55 | Emergency (ER) | payer MEDICAID, SELFPAY ==
[2021-04-12 15:55] VITALS: BP 120/70; PULSE 95; RESP 18; TEMP 36.1; O2SAT 100; BMI 34.4
[2021-04-12 16:53] LABS: Bacteria 0 SEEN /hpf (None Seen); Red Blood Cells-Urine 0 SEEN /hpf (0-5); White Blood Cells 0 SEEN /hpf (0-5)
[2021-04-12 16:54] LABS: Color, Urine Yellow (Yellow); Glucose, Dipstick Normal (Normal); Ketone-Dipstick Negative (Negative); Leukocyte Esterase-Dipstick 25 /ul (Negative); Nitrite-Dipstick Negative (Negative); Occult Blood-Urine 10 /ul (Negative); Protein-Dipstick 15 mg/dl (Negative); Specific Gravity, Urine 1.015 (1.002-1.030); Urine Bilirubin Dipstick Negative (Negative); Urine Clarity Clear (Clear); Urine Urobilinogen Normal (Normal)
[2021-04-12 16:59] LABS: Squamous Epithelial Cells - UA 0-5 SEEN /hpf (5-10)
[2021-04-12 17:00] LABS: Mucous, Urine 1+ /hpf (<or=2+)
--- NOTE | 2021-04-12 17:00 | EX.ED.DYSGE1 ---
HPI History of Present Illness Chief Complaint: Complaint Informant: patient Onset/Context/Timing Onset: Weeks Context: Gradual Onset Timing: Waxes and wanes Maximum Severity: Moderate Narrative Narrative: Patient presents secondary to hematuria and passing blood clots. She states this is been ongoing for the last week. She does have some right flank pain. She does report fever at home, T-max 100.7. She complains of having a cough for the past 1 month. Patient was seen in the ER on April 08. Urinalysis showed no sign of infection. CT flank was unremarkable. She called her urologist, Dr. Riggs, who is reportedly out of town for another week. The nurse advised her to come back to the emergency room. [facility] Medical History Abdominal pain Acute cystitis Arthritis Back problem Lamar's palsy Blurry vision, left eye Cancer Carpal tunnel syndrome Cellulitis Cervical cancer Dizziness Elevated blood pressure reading Fall Fibromyalgia Gastrointestinal problem Headache Hearing problem Hematuria Hives Hx of emotional problems Hypokalemia Insect bite Interstitial cystitis Irritable bowel syndrome Kidney stones Lipoma Neuropathy Osteoarthritis Seasonal allergies Seizures Stroke Ulcer Uterine cancer UTI (urinary tract infection) Home Medications topiramate 200 mg tablet 200 mg PO QHS tab 08/15/18 [History Last Taken Unknown] duloxetine 30 mg capsule,delayed release 90 mg PO QHS 06/09/19 [History Last Taken Unknown] prazosin 5 mg PO QHS 09/17/19 [History Last Taken Unknown] trazodone 100 mg tablet 300 mg PO QHS tab 10/28/19 [History Last Taken Unknown] carbamazepine 200 mg tablet 200 mg PO BID tab 03/22/20 [History Last Taken Unknown] gabapentin 600 mg tablet 600 mg PO TID tab 03/22/20 [History Last Taken Unknown] hydroxyzine pamoate 25 mg capsule 50 mg PO TID PRN 03/22/20 [History Last Taken Unknown] Handicap Placard #1 ea 05/03/20 [Rx Last Taken Unknown] Ultram 50 mg BID 12/30/20 [History Last Taken Unknown] aripiprazole 30 mg tablet 30 mg PO DAILY tab 01/07/21 [History Last Taken Unknown] dicyclomine 10 mg capsule 10 mg PO BID PRN #60 cap 01/21/21 [Rx Last Taken Unknown] epinephrine 0.3 mg/0.3 mL injection, auto-injector 0.3 mg IM Q5-15M PRN #2 ea 02/24/21 [Rx Last Taken Unknown] promethazine 25 mg tablet 25 mg PO BID PRN #60 tab 02/24/21 [Rx Last Taken Unknown] benzonatate 200 mg capsule 200 mg PO TID PRN #30 cap 03/14/21 [Rx Last Taken Unknown] ondansetron 8 mg disintegrating tablet 8 mg PO Q8H PRN #30 tab 03/14/21 [Rx Last Taken Unknown] baclofen 10 mg tablet 10 mg PO TID 03/23/21 [History Last Taken Unknown] sumatriptan succinate 50 mg tablet See Rx Instructions PO .COMPLEX #14 tab 03/23/21 [Rx Last Taken Unknown] levetiracetam 500 mg tablet 500 mg PO BID #180 tab 04/05/21 [Rx Last Taken Unknown] Allergy/AdvReac Type Severity Reaction Status Date / Time venom-honey bee Allergy Severe severe Verified 04/12/21 15:57 venom-wasp Allergy Severe severe Verified 04/12/21 15:57 ciprofloxacin [From Cipro] Allergy Rash Verified 04/12/21 15:57 erythromycin base Allergy Anaphylaxis Verified 04/12/21 15:57 iodine Allergy Anaphylaxis Verified 04/12/21 15:57 latex Allergy Rash Verified 04/12/21 15:57 metronidazole [From Flagyl] Allergy Anaphylaxis Verified 04/12/21 15:57 naproxen [From Naprosyn] Allergy Anaphylaxis Verified 04/12/21 15:57 Penicillins Allergy Anaphylaxis Verified 04/12/21 15:57 shellfish derived Allergy Anaphylaxis Verified 04/12/21 15:57 adhesive AdvReac Mild BLISTERS Verified 04/12/21 15:57 Family History Father Asthma Grandfather No problems noted. Grandmother Asthma Brother Lung cancer Diabetes Hypertension Grandfather Asthma Grandmother Asthma Hypertension Mother Diabetes Aunt Diabetes Son Seizures Asthma Surgical History History of appendectomy History of bladder repair surgery History of carpal tunnel surgery of right wrist History of hysterectomy History of orthopedic surgery History of spinal surgery Hx of repair of right rotator cuff S/P left knee surgery S/P umbilical hernia repair, follow-up exam Social History Smoking Status: Current every day smoker tobacco type: cigarettes alcohol intake: never substance use type: does not use what type of physical activity do you participate in: none ROS ROS ED Constitutional Constitutional ED: Reports chills and fever(s) Eyes Eyes: Denies change in vision ENT ENT ED: Denies sore throat Cardiovascular Cardiovascular: Denies chest pain Respiratory/Chest Respiratory/Chest: Reports cough; Denies dyspnea Gastrointestinal Gastrointestinal: Reports abdominal pain; Denies diarrhea, nausea or vomiting Genitourinary Genitourinary ED: Reports hematuria; Denies dysuria Musculoskeletal Musculoskeletal: Reports back pain Integumentary Denies rash Neurologic Neurologic: Denies headache(s) or weakness Allergic/Immunologic Allergic/Immunologic ED: Denies urticaria EXAM Physical Exam Const Vital Signs: 04/12/21 15:55 04/12/21 18:03 Temperature 97 F L Temperature Source Temporal Pulse Rate 95 Respiratory Rate 18 16 Blood Pressure 120/70 Blood Pressure Mean 86 Pulse Ox 100 Oxygen Delivery Method Room Air Positive well nourished and well developed General Appearance ED: well developed HEENT Reports normocephalic and head/scalp atraumatic Eyes PERRL and EOMs intact bilaterally Neck supple Chest Wall inspection of chest normal and palpation of chest normal Resp normal respiratory effort and clear to auscultation bilaterally Cardio regular rate and regular rhythm GI Palpation: soft and tender suprapubic; Negative for guarding Extremity normal to inspection Neuro oriented x3 and no sensory deficits noted Sensorium / Orientation: alert Motor Exam: strength 5/5 throughout Psych mental status grossly normal Skin no rashes or lesions noted MDM MDM MDM Narrative Medical decision making narrative: Lab work and urinalysis obtained. I reviewed her recent work-up including CT flank. Lab Data Attestation: I reviewed the patient's lab results. Labs: Laboratory Results - last 24 hr 04/12/21 04/12/21 04/12/21 16:43 17:14 17:14 WBC 4.8 RBC 3.73 L Hgb 12.3 Hct 37.5 MCV 100.5 H MCH 33.0 H MCHC 32.8 RDW Std Deviation 47.1 H RDW Coeff of Karina 12.6 Plt Count 170 MPV 11.7 Immature Gran % (Auto) 0.200 Neut % (Auto) 49.0 Lymph % (Auto) 40.2 Carver % (Auto) 5.2 Eos % (Auto) 4.8 Baso % (Auto) 0.6 Absolute Neuts (auto) 2.4 Absolute Lymphs (auto) 1.94 Nucleated RBC % 0 PT 12.8 INR 1.0 APTT 30.8 Sodium Potassium Chloride Carbon Dioxide Anion Gap BUN Creatinine Estim Creat Clear Calc Est GFR (MDRD) Af Amer Est GFR (MDRD) Non-Af BUN/Creatinine Ratio Glucose Calcium Urine Color Yellow Urine Clarity Clear Urine pH 7.0 Ur Specific [place] 1.015 Urine Protein 15 H Urine Glucose (UA) Normal Urine Ketones Negative Urine Occult Blood 10 H Urine Nitrite Negative Urine Bilirubin Negative Urine Urobilinogen Normal Ur Leukocyte Esterase 25 H Urine RBC 0 SEEN Urine WBC 0 SEEN Ur Squamous Epith Cells 0-5 SEEN Urine Bacteria 0 SEEN Urine Mucus 1+ 04/12/21 17:14 WBC RBC Hgb Hct MCV MCH MCHC RDW Std Deviation RDW Coeff of Karina Plt Count MPV Immature Gran % (Auto) Neut % (Auto) Lymph % (Auto) Carver % (Auto) Eos % (Auto) Baso % (Auto) Absolute Neuts (auto) Absolute Lymphs (auto) Nucleated RBC % PT INR APTT Sodium 144 Potassium 3.5 Chloride 110 H Carbon Dioxide 27.0 Anion Gap 7 BUN 12 Creatinine 0.67 Estim Creat Clear Calc 104.20 Est GFR (MDRD) Af Amer 122 Est GFR (MDRD) Non-Af 101 BUN/Creatinine Ratio 17.8 Glucose 88 Calcium 8.8 Urine Color Urine Clarity Urine pH Ur Specific [place] Urine Protein Urine Glucose (UA) Urine Ketones Urine Occult Blood Urine Nitrite Urine Bilirubin Urine Urobilinogen Ur Leukocyte Esterase Urine RBC Urine WBC Ur Squamous Epith Cells Urine Bacteria Urine Mucus Treatment and Re-Evaluation Comments:: Patient's lab work is unremarkable. Hemoglobin is stable from last check. Coags normal. Urinalysis shows no bacteria or white cells. There is no RBCs and only 10 of occult blood. Renal function is stable and normal. Patient is reassured with these findings. I encouraged her to continue pushing p.o. fluids to help keep the kidneys flushed. She will follow-up with Dr. Riggs next week. Discharge Plan Triage Chief Complaint: Complaint ED Provider: Lacy Walter Dx/Rx/DC Orders Clinical Impression: Flank pain Instructions: ED Flank Pain, Uncertain Cause Prescriptions: No Action topiramate 200 mg tablet 200 mg PO QHS RF: 0 carbamazepine 200 mg tablet 200 mg PO BID RF: 0 duloxetine 30 mg capsule,delayed release(DR/EC) 90 mg PO QHS RF: 0 aripiprazole [Abilify] 30 mg tablet 30 mg PO DAILY RF: 0 baclofen 10 mg tablet 10 mg PO TID RF: 0 sumatriptan succinate 50 mg tablet See Rx Instructions PO .COMPLEX Qty: 14 RF: 2 ondansetron 8 mg tablet,disintegrating 8 mg PO Q8H PRN (Reason: nausea and vomiting) Qty: 30 RF: 0 benzonatate 200 mg capsule 200 mg PO TID PRN (Reason: cough) Qty: 30 RF: 1 trazodone 100 mg tablet 300 mg PO QHS RF: 0 gabapentin 600 mg tablet 600 mg PO TID RF: 0 hydroxyzine pamoate 25 mg capsule 50 mg PO TID PRN (Reason: Anxiety) RF: 0 prazosin 5 MG capsule 5 mg PO QHS RF: 0 Ultram 50 mg tablet 50 mg BID RF: 0 (DME) Handicap Placard See Rx Instructions .Route .MEDSUPPLY Qty: 1 RF: 0 dicyclomine 10 mg capsule 10 mg PO BID PRN (Reason: abdominal discomfort) Qty: 60 RF: 0 promethazine 25 mg tablet 25 mg PO BID PRN (Reason: Nausea) Qty: 60 RF: 1 Hold Instructions: Duplicate Order epinephrine [EpiPen 2-Raymond] 0.3 mg/0.3 mL auto-injector 0.3 mg IM Q5-15M PRN (Reason: anaphylaxis) Qty: 2 RF: 3 levetiracetam [Keppra] 500 mg tablet 500 mg PO BID Qty: 180 RF: 1 Primary Care Provider: Gayle Munoz Referrals: Gayle Munoz MD [Primary Care Provider] - Kim Riggs MD [STAFF PHYSICIAN] - 1-2 Weeks Disposition Disposition: Home, Self Care
[2021-04-12] MEDS: 0.9% Normal Saline 1,000 ML 150 ML IV (17:17)
[2021-04-12 17:51] LABS: Absolute Lymphocyte Count 1.94 X10^3/uL (0.83-4.51); Absolute Neutrophil Count 2.4 X10^3/uL (2.0-7.7); Basophil# 0.03 X10^3/uL; Basophil% 0.6 % (0-1); Eosinophil# 0.23 X10^3/uL; Eosinophils% 4.8 % (0-5); Hematocrit 37.5 % (37-47); Hemoglobin 12.3 g/dL (12.0-15.0); Lymphocyte # 1.94 X10^3/ul (0.83-4.51); Lymphocyte % 40.2 % (19-41); Mean Corp Hgb Conc 32.8 g/dL (32-36); Mean Corpuscular Volume 100.5 fL (81-99); Mean Platelet Vol. 11.7 fl (6.2-12.0); Monocyte# 0.25 X10^3/uL; Monocyte% 5.2 % (0-10); NRBC Flagged by Analyzer 0 % (0-5); Neutrophil # 2.36 X10^3/uL (2.7-7.7); Platelet Count 170 K/mm3 (150-450); RBC Distribution Width CV 12.6 % (11.6-14.6); RBC Distribution Width SD 47.1 fl (35.1-43.9); Red Blood Count 3.73 M/mm3 (4.2-5.4); White Blood Count 4.8 K/mm3 (4.4-11.0)
[2021-04-12 17:56] LABS: Prothrombin Time (Protime)PT. 12.8 SECONDS (11.7-14.9)
[2021-04-12 17:57] LABS: Partial Thromboplast Time 30.8 Seconds (24.1-36.2)
[2021-04-12 18:01] LABS: Anion Gap 7 (5-15); BUN 12 mg/dL (7-18); BUN/Creat Ratio 17.8 RATIO (10-20); Calcium,Total 8.8 mg/dL (8.5-10.1); Chloride 110 mmol/L (98-107); Creatinine, Serum 0.67 mg/dL (0.55-1.02); EST Glomerular Filtration Rate 101 mL/min (>60); Est Glom Filt Rate - Afr Amer 122 mL/min (>60); Glucose 88 mg/dL (74-106); Potassium 3.5 mmol/L (3.5-5.1); Sodium Level 144 mmol/L (136-145)
[2021-04-12 18:03] VITALS: RESP 16
== END 2021-04-12 18:54 | disposition home or self-care (01) ==
PROVIDERS: Emergency Provider Emergency Medicine; PCP Internal Medicine; Visit Provider Emergency Medicine
DX: R10.9 Unspecified abdominal pain (principal); R31.9 Hematuria, unspecified; M19.90 Unspecified osteoarthritis, unspecified site; M79.7 Fibromyalgia; F17.210 Nicotine dependence, cigarettes, uncomplicated; Z90.710 Acquired absence of both cervix and uterus; Z90.49 Acquired absence of other specified parts of digestive tract; Z79.899 Other long term (current) drug therapy; Z86.73 Personal history of transient ischemic attack (TIA), and cerebral infarction without residual deficits
CPT/HCPCS: 80048; 81001; 85025; 85610; 85730; 99284; J7030

== ENCOUNTER 2021-04-21 10:05 | Outpatient (CLI) | payer MEDICAID, SELFPAY | END 2021-04-21 23:59 | disposition short-term general hospital (02) | LOC: LABSPEC 10:06 | PROVIDERS: PCP Internal Medicine; Referring Provider Physician Assistant; Visit Provider Physician Assistant | DX: R05.9 Cough, unspecified (principal) | CPT/HCPCS: 87635; U0003; U0005 ==

== ENCOUNTER 2021-06-09 09:20 | Emergency (ER) | payer MEDICAID, SELFPAY ==
[2021-06-09 09:22] VITALS: BP 126/59; PULSE 85; RESP 18; TEMP 36.6; O2SAT 100; BMI 34.4
[2021-06-09 10:26] LABS: Absolute Lymphocyte Count 1.88 X10^3/uL (0.83-4.51); Absolute Neutrophil Count 3.6 X10^3/uL (2.0-7.7); Basophil# 0.04 X10^3/uL; Basophil% 0.7 % (0-1); Eosinophil# 0.23 X10^3/uL; Eosinophils% 3.8 % (0-5); Hemoglobin 13.3 g/dL (12.0-15.0); Lymphocyte # 1.88 X10^3/ul (0.83-4.51); Lymphocyte % 31.2 % (19-41); Mean Corp Hgb Conc 32.4 g/dL (32-36); Mean Corpuscular Hgb 33.9 pg (27.0-32.0); Mean Corpuscular Volume 104.6 fL (81-99); Monocyte# 0.29 X10^3/uL; Monocyte% 4.8 % (0-10); NRBC Flagged by Analyzer 0 % (0-5); Neutrophil # 3.55 X10^3/uL (2.7-7.7); Platelet Count 158 K/mm3 (150-450); RBC Distribution Width SD 49.7 fl (35.1-43.9); Red Blood Count 3.92 M/mm3 (4.2-5.4)
[2021-06-09 10:38] LABS: Mucous, Urine 0 SEEN /hpf (<or=2+)
[2021-06-09 10:42] LABS: Color, Urine Yellow (Yellow); Glucose, Dipstick Normal (Normal); Ketone-Dipstick Negative (Negative); Leukocyte Esterase-Dipstick 25 /ul (Negative); Nitrite-Dipstick Negative (Negative); Occult Blood-Urine Negative /ul (Negative); Protein-Dipstick Negative (Negative); Specific Gravity, Urine 1.015 (1.002-1.030); Urine Bilirubin Dipstick Negative (Negative); Urine Clarity Sl. Cloudy (Clear); Urine Urobilinogen Normal (Normal)
[2021-06-09 10:48] LABS: AST(SGOT) 27 U/L (15-37); Alanine Aminotransfer ALT/SGPT 15 U/L (13-56); Albumin, Serum 2.3 g/dL (3.2-5.0); Alkaline Phosphatase 98 U/L (45-117); Anion Gap 4 (5-15); BUN 10 mg/dL (7-18); BUN/Creat Ratio 25.6 RATIO (10-20); Bilirubin, Direct < 0.05 mg/dL (0.00-0.30); Calcium,Total 6.2 mg/dL (8.5-10.1); Chloride 120 mmol/L (98-107); Creatinine, Serum 0.39 mg/dL (0.55-1.02); EST Glomerular Filtration Rate 189 mL/min (>60); Est Glom Filt Rate - Afr Amer 228 mL/min (>60); Estimated Creatinine Clearance 179.01 ml/min; Globulin 3.2 g/dL (2.2-4.2); Glucose 71 mg/dL (74-106); Lipase 45 U/L (73-393); Potassium 3.1 mmol/L (3.5-5.1); Protein, Total 5.5 g/dL (6.4-8.2); Sodium Level 144 mmol/L (136-145)
--- NOTE | 2021-06-09 10:48 | US_ITS ---
STUDY: ABDOMINAL ULTRASOUND - RIGHT UPPER QUADRANT REASON FOR VISIT: Female, 45 years old RUQ pain TECHNIQUE: Ultrasound evaluation of the right upper quadrant was performed with real-time and static negron-scale imaging. TECHNICAL QUALITY: Adequate. COMPARISON: Comparison is made with prior examination dated 01/14/2021 FINDINGS: Liver: The liver measures 16.1 cm. There is normal echogenicity of the liver. The bile ducts are within normal limits. There is hepatic color flow. The direction of portal flow is hepatopetal. There is no demonstrated mass lesion. Gallbladder: Normal distended gallbladder. The gallbladder wall measures 2.1 mm. There is a negative sonographic Greenberg''s sign. There is no pericholecystic fluid. There are no gallstones. Common Bile Duct (C.B.D.): The common bile duct measures 3.8 mm. Pancreas: Normal size of the head, body and tail of the pancreas. There is normal echogenicity of the pancreas. There is no demonstrated pancreatic mass or cyst. Right Kidney: Normal size of the right kidney. The right kidney measures 11.3 cm x 6.3 cm x 4.7 cm. Normal renal cortex. The right cortex measures 1.2 cm. There is no demonstrated renal mass or cyst. There is no right hydronephrosis. US/Gallbladder IMPRESSION: Normal right upper quadrant ultrasound examination. Electronically Signed: Amado Bernardo MD at 12:25 EST ,
[2021-06-09 10:51] LABS: Bacteria RARE /hpf (None Seen); Red Blood Cells-Urine 0-5 SEEN /hpf (0-5); Squamous Epithelial Cells - UA 0-5 SEEN /hpf (5-10); White Blood Cells 0-5 SEEN /hpf (0-5)
[2021-06-09] MEDS: 0.9% Normal Saline 1,000 ML 999 ML IV ×2 (11:15→13:05)
[2021-06-09] MEDS: Morphine 4 MG/ML Syringe IV (11:16)
--- NOTE | 2021-06-09 12:05 | EDS_ITS ---
HPI HPI - GI History of Present Illness Chief Complaint: Abd Pain Narrative Narrative: 45-year-old female presenting with right upper quadrant pain. She states this is been going on for couple of days. It is worse with food. She denies any trauma. She denies constipation or diarrhea. No urinary complaints. No fever or chills. She had multiple abdominal surgeries in the past as well. She does have a gallbladder. She has a history of GERD and is on omeprazole. PFSH PFS Medical History Abdominal pain Acute cystitis Arthritis Back problem Lamar's palsy Blurry vision, left eye Carpal tunnel syndrome Cellulitis Cervical cancer Dizziness Elevated blood pressure reading Fall Fibromyalgia Foot pain, left Gastrointestinal problem Headache Hearing problem Hematuria Hives Hx of emotional problems Hypokalemia Insect bite Interstitial cystitis Irritable bowel syndrome Kidney stones [place]oma Neuropathy Osteoarthritis Seasonal allergies Seizures Stroke Ulcer Uterine cancer UTI (urinary tract infection) Home Medications topiramate 200 mg tablet 200 mg PO QHS tab 08/15/18 [History Last Taken Unknown] duloxetine 30 mg capsule,delayed release 90 mg PO QHS 06/09/19 [History Last Taken Unknown] prazosin 5 mg PO QHS 09/17/19 [History Last Taken Unknown] trazodone 100 mg tablet 300 mg PO QHS tab 10/28/19 [History Last Taken Unknown] carbamazepine 200 mg tablet 200 mg PO BID tab 03/22/20 [History Last Taken Unknown] gabapentin 600 mg tablet 600 mg PO TID tab 03/22/20 [History Last Taken Unknown] hydroxyzine pamoate 25 mg capsule 50 mg PO TID PRN 03/22/20 [History Last Taken Unknown] Handicap Placard #1 ea 05/03/20 [Rx Last Taken Unknown] Ultram 50 mg BID 12/30/20 [History Last Taken Unknown] aripiprazole 30 mg tablet 30 mg PO DAILY tab 01/07/21 [History Last Taken Unknown] epinephrine 0.3 mg/0.3 mL injection, auto-injector 0.3 mg IM Q5-15M PRN #2 ea 02/24/21 [Rx Last Taken Unknown] baclofen 10 mg tablet 10 mg PO TID 03/23/21 [History Last Taken Unknown] levetiracetam 500 mg tablet 500 mg PO BID #180 tab 04/05/21 [Rx Last Taken Unknown] ondansetron 8 mg disintegrating tablet 8 mg PO Q8H PRN #30 tab 04/20/21 [Rx Last Taken Unknown] pantoprazole 40 mg tablet,delayed release 40 mg PO DAILY #180 tab 04/20/21 [Rx Last Taken Unknown] benzonatate 200 mg capsule 200 mg PO TID PRN #180 cap 06/01/21 [Rx Last Taken Unknown] promethazine 25 mg tablet 25 mg PO BID PRN #60 tab 06/01/21 [Rx Last Taken Unknown] sumatriptan succinate 50 mg tablet See Rx Instructions PO .COMPLEX #14 tab 06/01/21 [Rx Last Taken Unknown] sucralfate [Carafate] 10 ml PO BID #200 ml 06/09/21 [Rx Last Taken Unknown] Allergy/AdvReac Type Severity Reaction Status Date / Time venom-honey bee Allergy Severe severe Verified 06/09/21 09:22 venom-wasp Allergy Severe severe Verified 06/09/21 09:22 ciprofloxacin [From Cipro] Allergy Rash Verified 06/09/21 09:22 erythromycin base Allergy Anaphylaxis Verified 06/09/21 09:22 iodine Allergy Anaphylaxis Verified 06/09/21 09:22 latex Allergy Rash Verified 06/09/21 09:22 metronidazole [From Flagyl] Allergy Anaphylaxis Verified 06/09/21 09:22 naproxen [From Naprosyn] Allergy Anaphylaxis Verified 06/09/21 09:22 Penicillins Allergy Anaphylaxis Verified 06/09/21 09:22 shellfish derived Allergy Anaphylaxis Verified 06/09/21 09:22 adhesive AdvReac Mild BLISTERS Verified 06/09/21 09:22 Family History Father Asthma Grandfather No problems noted. Grandmother Asthma Brother Lung cancer Diabetes Hypertension Grandfather Asthma Grandmother Asthma Hypertension Mother Diabetes Aunt Diabetes Son Seizures Asthma Surgical History History of appendectomy History of bladder repair surgery History of carpal tunnel surgery of right wrist History of hysterectomy History of orthopedic surgery History of spinal surgery Hx of repair of right rotator cuff S/P left knee surgery S/P umbilical hernia repair, follow-up exam Status post left foot surgery Social History Smoking Status: Current every day smoker tobacco type: cigarettes alcohol intake: never substance use type: does not use what type of physical activity do you participate in: none ROS ROS ED Constitutional Constitutional ED: Denies chills or fever(s) ENT ENT ED: Denies rhinorrhea or sore throat Cardiovascular Cardiovascular: Denies chest pain or palpitations Respiratory/Chest Respiratory/Chest: Denies cough or dyspnea Gastrointestinal Gastrointestinal: Reports abdominal pain, nausea and vomiting Genitourinary Genitourinary ED: Denies dysuria or hematuria Musculoskeletal Musculoskeletal: Denies arthralgias or myalgias Integumentary Denies rash Neurologic Neurologic: Denies headache(s) or weakness Psychiatric Psychiatric: Denies depression Endocrine Endocrinology: Denies polydipsia or polyuria EXAM Physical Exam Const Vital Signs: 06/09/21 09:22 06/09/21 13:08 Temperature 97.8 F Temperature Source Temporal Pulse Rate 85 77 Respiratory Rate 18 16 Blood Pressure 126/59 H 111/75 Blood Pressure Mean 81 87 Pulse Ox 100 98 Oxygen Delivery Method Room Air Positive well developed General Appearance ED: well developed and NAD; Negative for pallor HEENT Reports moist mucous membranes atraumatic Eyes PERRL and EOMs intact bilaterally General Eye ED: Negative for pale conjunctiva or scleral icterus Resp normal respiratory effort and clear to auscultation bilaterally Cardio regular rate and regular rhythm GI non-distended Palpation: soft and tender RLQ Back/Spine no CVA tenderness Neuro CN's II-XII intact bilaterally Sensorium / Orientation: alert, oriented to person, oriented to place and oriented to time Psych mental status grossly normal Skin General Skin Exam: Negative for jaundice or pallor Rashes: no rashes MDM MDM MDM Narrative Medical decision making narrative: Patient presenting with right upper quadrant pain. She states it gets worse about an hour after eating. On exam she is tender in the right upper quadrant and she does have a gallbladder. Right upper quadrant ultrasound is ordered. Obtain blood work and her CBC shows no leuko cytosis. Hemoglobin hematocrit are stable. Platelets are normal. CMP does not show elevation of her LFTs. Just lipase normal. Renal function and electrolytes are normal except for potassium being slightly low at 3.1 and her potassium being low at 6.2 which does correct almost 8. Urinalysis is negative for infection. Patient given 2 doses of morphine with Zofran and has some improvement. Right upper quadrant ultrasound was read as negative and I did obtain a CT of the abdomen pelvis without IV contrast due to her allergy of anaphylaxis. This does not show anything acute except for possible sludge within the gallbladder which is not present on the ultrasound. Discussed with Dr. Diaz regarding her findings and he recommended putting her on Carafate and that she could follow-up with him in office as scheduled. She was amenable to this. I did was to give her potassium but at the time of disposition she states she had a family emergency and had to leave quickly. Impression: 1. Abdominal pain 2. Hypokalemia 3. Hypocalcemia Lab Data Attestation: I reviewed the patient's lab results. Labs: Laboratory Results - last 24 hr 06/09/21 06/09/21 06/09/21 10:00 10:00 10:30 WBC 6.0 RBC 3.92 L Hgb 13.3 Hct 41.0 MCV 104.6 H MCH 33.9 H MCHC 32.4 RDW Std Deviation 49.7 H RDW Coeff of Karina 13.0 Plt Count 158 MPV 12.0 Immature Gran % (Auto) 0.500 Neut % (Auto) 59.0 Lymph % (Auto) 31.2 [place] % (Auto) 4.8 Eos % (Auto) 3.8 Baso % (Auto) 0.7 Absolute Neuts (auto) 3.6 Absolute Lymphs (auto) 1.88 Nucleated RBC % 0 Sodium 144 Potassium 3.1 L Chloride 120 H Carbon Dioxide 20.0 L Anion Gap 4 L BUN 10 Creatinine 0.39 L Estim Creat Clear Calc 179.01 Est GFR (MDRD) Af Amer 228 Est GFR (MDRD) Non-Af 189 BUN/Creatinine Ratio 25.6 H Glucose 71 L Calcium 6.2 L* Total Bilirubin 0.40 Direct Bilirubin < 0.05 AST 27 ALT 15 Alkaline Phosphatase 98 Total Protein 5.5 L Albumin 2.3 L Globulin 3.2 Lipase 45 L Urine Color Yellow Urine Clarity Sl. Cloudy Urine pH 8.0 Ur Specific [place] 1.015 Urine Protein Negative Urine Glucose (UA) Normal Urine Ketones Negative Urine Occult Blood Negative Urine Nitrite Negative Urine Bilirubin Negative Urine Urobilinogen Normal Ur Leukocyte Esterase 25 H Urine RBC 0-5 SEEN Urine WBC 0-5 SEEN Ur Squamous Epith Cells 0-5 SEEN Urine Bacteria RARE Urine Mucus 0 SEEN Radiography Diagnostic Testing: Clinical Impression(s) from Imaging Studies Gallbladder Ultrasound 06/09/21 10:48 IMPRESSION: Normal right upper quadrant ultrasound examination. Electronically Signed: Amado Bernardo MD at 12:25 EST , Abdomen/Pelvis CT 06/09/21 12:31 IMPRESSION: Questionable sludge within the gallbladder lumen. Electronically Signed: Amado Bernardo MD at 14:12 EST , Discharge Plan Triage Chief Complaint: Abd Pain ED Provider: Toni Mojica Dx/Rx/DC Orders Instructions: ED Abdominal Pain Unkn Cause Fem Prescriptions: New sucralfate [Carafate] 100 mg/mL suspension 10 ml PO BID Qty: 200 RF: 0 No Action topiramate 200 mg tablet 200 mg PO QHS RF: 0 carbamazepine 200 mg tablet 200 mg PO BID RF: 0 duloxetine 30 mg capsule,delayed release(DR/EC) 90 mg PO QHS RF: 0 aripiprazole [Abilify] 30 mg tablet 30 mg PO DAILY RF: 0 baclofen 10 mg tablet 10 mg PO TID RF: 0 benzonatate 200 mg capsule 200 mg PO TID PRN (Reason: cough) Qty: 180 RF: 2 sumatriptan succinate 50 mg tablet See Rx Instructions PO .COMPLEX Qty: 14 RF: 2 promethazine 25 mg tablet 25 mg PO BID PRN (Reason: nausea and vomiting) Qty: 60 RF: 1 ondansetron 8 mg tablet,disintegrating 8 mg PO Q8H PRN (Reason: nausea and vomiting) Qty: 30 RF: 0 pantoprazole 40 mg tablet,delayed release (DR/EC) 40 mg PO DAILY Qty: 180 RF: 2 trazodone 100 mg tablet 300 mg PO QHS RF: 0 gabapentin 600 mg tablet 600 mg PO TID RF: 0 hydroxyzine pamoate 25 mg capsule 50 mg PO TID PRN (Reason: Anxiety) RF: 0 prazosin 5 MG capsule 5 mg PO QHS RF: 0 Ultram 50 mg tablet 50 mg BID RF: 0 (DME) Handicap Placard See Rx Instructions .Route .MEDSUPPLY Qty: 1 RF: 0 epinephrine [EpiPen 2-Raymond] 0.3 mg/0.3 mL auto-injector 0.3 mg IM Q5-15M PRN (Reason: anaphylaxis) Qty: 2 RF: 3 levetiracetam [Keppra] 500 mg tablet 500 mg PO BID Qty: 180 RF: 1 Primary Care Provider: Gayle Munoz Referrals: Gayle Munoz MD [Primary Care Provider] - Gary Diaz DO [STAFF PHYSICIAN] - As soon as possible Disposition Disposition: Home, Self Care Discharge Date/Time: 06/09/21 15:33
--- NOTE | 2021-06-09 12:31 | CT_ITS ---
STUDY: CT ABDOMEN AND PELVIS WITHOUT CONTRAST REASON FOR EXAM: Female, 45 years old. Right upper quadrant pain. RADIATION DOSAGE (If Supplied By Facility): CTDIvol = ( 12.69 ) mGy, DLP = ( 627.89 ) mGycm TECHNIQUE: Transaxial images were obtained from the dome of the diaphragm to the symphysis pubis without oral contrast, and without intravenous contrast. Sagittal and coronal images were reconstructed. Individualized dose optimization techniques were used for this CT. COMPARISON: Comparison is made with prior study dated 04/08/2021. FINDINGS: The visualized lung bases are unremarkable. The visualized portions of the heart are within normal limits. Normal liver. Findings suggestive of sludge in the gallbladder lumen. Normal spleen. Normal pancreas. Normal bilateral adrenal glands. Normal right kidney. Normal left kidney. Normal visualized stomach. Normal small intestine. Normal colon. There are surgical clips in the region of the appendix consistent with a prior appendectomy. There is scattered atherosclerotic calcification of the abdominal aorta, without a demonstrated aneurysm. Normal inferior vena cava. Normal retroperitoneum. Normal urinary bladder. There is absence of the uterus consistent with a prior hysterectomy. Normal abdominal wall. Prior anterior fusion at the L5-S1 level with loss of the disc space. A spinal cord stimulator is seen. CT/Abdomen/Pelvis without Cont IMPRESSION: Questionable sludge within the gallbladder lumen. Electronically Signed: Amado Bernardo MD at 14:12 [facility] ,
[2021-06-09] MEDS: fentaNYL 100 MCG/2 ML Ampul 25 MCG IV (13:05)
[2021-06-09 13:08] VITALS: BP 111/75; PULSE 77; RESP 16; O2SAT 98
== END 2021-06-09 15:33 | disposition home or self-care (01) ==
PROVIDERS: Emergency Provider Student in an Organized Health Care Education/Training Program; PCP Internal Medicine; Visit Provider Student in an Organized Health Care Education/Training Program
DX: R10.11 Right upper quadrant pain (principal); E87.6 Hypokalemia; E83.51 Hypocalcemia; Z86.73 Personal history of transient ischemic attack (TIA), and cerebral infarction without residual deficits; F17.210 Nicotine dependence, cigarettes, uncomplicated
CPT/HCPCS: 74176; 76705; 80048; 80076; 81001; 83690; 85025; 96374; 96375; 96376; 99283; J7030; J7050

== ENCOUNTER 2021-06-16 10:28 | Emergency (ER) | payer MEDICAID, SELFPAY ==
[2021-06-16 10:29] VITALS: BP 147/88; PULSE 91; RESP 14; TEMP 36.2; O2SAT 100; BMI 34.5
--- NOTE | 2021-06-16 10:41 | US_ITS ---
STUDY: ABDOMINAL ULTRASOUND - RIGHT UPPER QUADRANT REASON FOR VISIT: Female, 45 years old . Right upper quadrant pain with nausea and vomiting. TECHNIQUE: Ultrasound evaluation of the right upper quadrant was performed with real-time and static negron-scale imaging. TECHNICAL QUALITY: Adequate. COMPARISON: Comparison made with prior examination 06/09/2021. FINDINGS: Liver: The liver measures 17.8 cm. There is increased echogenicity consistent with fatty infiltration. The bile ducts are within normal limits. There is hepatic color flow. The direction of portal flow is hepatopetal. There is no demonstrated mass lesion. Gallbladder: Normal distended gallbladder. The gallbladder wall measures 1 mm. There is a negative sonographic Greenberg''s sign. There is no pericholecystic fluid. There are no gallstones. Common Bile Duct (C.B.D.): The common bile duct measures 4 mm. Pancreas: There is nonvisualization of the pancreas due to overlying bowel gas. Right Kidney: Normal size of the right kidney. The right kidney measures 11.7 cm x 5.8 x 4.7 cm. Normal renal cortex. The right cortex measures 1.2 cm. There is no demonstrated renal mass or cyst. There is no right hydronephrosis. US/Gallbladder IMPRESSION: Fatty infiltration of the liver. Electronically Signed: Amado Bernardo MD at 12:28 EST ,
--- NOTE | 2021-06-16 10:42 | EDS_ITS ---
HPI History of Present Illness Chief Complaint: Nausea/Vomiting Narrative Narrative: Patient presents with right upper quadrant pain for the past 2 weeks it is related to food. She has nausea and she has vomited multiple times after one episode of vigorous vomiting she did have an episode of some blood tinged vomitus. She has no back pain or tearing sensation. No recent fever or chills. She has no lower abdominal pain. [facility] Medical History Abdominal pain Acute cystitis Arthritis Back problem Lamar's palsy Blurry vision, left eye Carpal tunnel syndrome Cellulitis Cervical cancer Dizziness Elevated blood pressure reading Fall Fibromyalgia Foot pain, left Gastrointestinal problem Headache Hearing problem Hematuria Hives Hx of emotional problems Hypokalemia Insect bite Interstitial cystitis Irritable bowel syndrome Kidney stones [place]oma Neuropathy Osteoarthritis Seasonal allergies Seizures Stroke Ulcer Uterine cancer UTI (urinary tract infection) Home Medications topiramate 200 mg tablet 200 mg PO QHS tab 08/15/18 [History Last Taken Unknown] duloxetine 30 mg capsule,delayed release 90 mg PO QHS 06/09/19 [History Last Taken Unknown] prazosin 5 mg PO QHS 09/17/19 [History Last Taken Unknown] trazodone 100 mg tablet 300 mg PO QHS tab 10/28/19 [History Last Taken Unknown] carbamazepine 200 mg tablet 200 mg PO BID tab 03/22/20 [History Last Taken Unknown] gabapentin 600 mg tablet 600 mg PO TID tab 03/22/20 [History Last Taken Unknown] hydroxyzine pamoate 25 mg capsule 50 mg PO TID PRN 03/22/20 [History Last Taken Unknown] Handicap Placard #1 ea 05/03/20 [Rx Last Taken Unknown] Ultram 50 mg BID 12/30/20 [History Last Taken Unknown] aripiprazole 30 mg tablet 30 mg PO DAILY tab 01/07/21 [History Last Taken Unknown] epinephrine 0.3 mg/0.3 mL injection, auto-injector 0.3 mg IM Q5-15M PRN #2 ea 02/24/21 [Rx Last Taken Unknown] baclofen 10 mg tablet 10 mg PO TID 03/23/21 [History Last Taken Unknown] levetiracetam 500 mg tablet 500 mg PO BID #180 tab 04/05/21 [Rx Last Taken Unknown] ondansetron 8 mg disintegrating tablet 8 mg PO Q8H PRN #30 tab 04/20/21 [Rx Last Taken Unknown] pantoprazole 40 mg tablet,delayed release 40 mg PO DAILY #180 tab 04/20/21 [Rx Last Taken Unknown] benzonatate 200 mg capsule 200 mg PO TID PRN #180 cap 06/01/21 [Rx Last Taken Unknown] promethazine 25 mg tablet 25 mg PO BID PRN #60 tab 06/01/21 [Rx Last Taken Unknown] sumatriptan succinate 50 mg tablet See Rx Instructions PO .COMPLEX #14 tab 06/01/21 [Rx Last Taken Unknown] sucralfate [Carafate] 10 ml PO BID #200 ml 06/09/21 [Rx Last Taken Unknown] Allergy/AdvReac Type Severity Reaction Status Date / Time venom-honey bee Allergy Severe severe Verified 06/16/21 10:30 venom-wasp Allergy Severe severe Verified 06/16/21 10:30 ciprofloxacin [From Cipro] Allergy Rash Verified 06/16/21 10:30 erythromycin base Allergy Anaphylaxis Verified 06/16/21 10:30 iodine Allergy Anaphylaxis Verified 06/16/21 10:30 latex Allergy Rash Verified 06/16/21 10:30 metronidazole [From Flagyl] Allergy Anaphylaxis Verified 06/16/21 10:30 naproxen [From Naprosyn] Allergy Anaphylaxis Verified 06/16/21 10:30 Penicillins Allergy Anaphylaxis Verified 06/16/21 10:30 shellfish derived Allergy Anaphylaxis Verified 06/16/21 10:30 adhesive AdvReac Mild BLISTERS Verified 06/16/21 10:30 Family History Father Asthma Grandfather No problems noted. Grandmother Asthma Brother Lung cancer Diabetes Hypertension Grandfather Asthma Grandmother Asthma Hypertension Mother Diabetes Aunt Diabetes Son Seizures Asthma Surgical History History of appendectomy History of bladder repair surgery History of carpal tunnel surgery of right wrist History of hysterectomy History of orthopedic surgery History of spinal surgery Hx of repair of right rotator cuff S/P left knee surgery S/P umbilical hernia repair, follow-up exam Status post left foot surgery Social History Smoking Status: Current every day smoker tobacco type: cigarettes alcohol intake: never substance use type: does not use what type of physical activity do you participate in: none ROS ROS ED ROS Narrative Past medical history: Reviewed, consistent with hypertension, history of depression anxiety, multiple abdominal surgeries including appendix, hernia repair and hysterectomy. Medications: Reviewed Social history: She is a smoker who is trying to quit Review of systems: All systems negative except as indicated General: No fever Eyes: No visual changes ENT: No upper airway congestion, normal voice Neck: No neck pain Cardiovascular: No chest pain Respiratory: No shortness of breath or cough Gastrointestinal: Abdominal pain nausea vomiting as in HPI Genitourinary: No dysuria Musculoskeletal: Denies myalgias no difficulty with ambulation Skin: No rash Neurological: No memory loss, confusion or any focal weakness Psych: No recent behavioral changes Hematologic: No easy bleeding or easy bruising EXAM Physical Exam Narrative Exam Narrative: Physical exam General: Patient appears uncomfortable Head: Normocephalic, Atraumatic Eyes: Conjunctiva not pale ENT: Moist mucous membranes Neck: Supple, Nontender, No lymphadenopathy Cardiovascular: Regular rate, Regular rhythm Respiratory: No distress, CTA bilaterally Abdomen: Soft, right upper quadrant pain. Negative Greenberg's. No lower abdominal pain. No pain at [place]. No guarding or rebound Back: Nontender, Normal Inspection. Negative for: CVA tenderness Extremities: Nontender, No edema Skin: Normal color, No rash Neurological: Alert, Normal Strength, Normal Sensation Psychological: Normal affect Const Vital Signs: 06/16/21 10:29 Temperature 97.2 F L Temperature Source Temporal Pulse Rate 91 Respiratory Rate 14 Blood Pressure 147/88 H Blood Pressure Mean 107 Pulse Ox 100 Oxygen Delivery Method Room Air MDM MDM MDM Narrative Medical decision making narrative: Patient has a normal work-up which makes me think she may have gastritis, I will refer to GI, she already is on Carafate and a PPI. Otherwise she can safely be discharged home. Lab Data Labs: Laboratory Results - last 24 hr 06/16/21 06/16/21 06/16/21 10:54 10:54 11:17 WBC 6.6 RBC 3.99 L Hgb 13.4 Hct 40.1 MCV 100.5 H MCH 33.6 H MCHC 33.4 RDW Std Deviation 46.2 H RDW Coeff of Karina 12.4 Plt Count 170 MPV 11.0 Immature Gran % (Auto) 0.300 Neut % (Auto) 68.4 Lymph % (Auto) 24.4 [place] % (Auto) 4.7 Eos % (Auto) 1.7 Baso % (Auto) 0.5 Absolute Neuts (auto) 4.5 Absolute Lymphs (auto) 1.61 Nucleated RBC % 0 Sodium 140 Potassium 3.3 L Chloride 105 Carbon Dioxide 29.0 Anion Gap 6 BUN 10 Creatinine 0.67 Estim Creat Clear Calc 104.20 Est GFR (MDRD) Af Amer 123 Est GFR (MDRD) Non-Af 101 BUN/Creatinine Ratio 14.9 Glucose 111 H Calcium 8.8 Total Bilirubin 0.20 Direct Bilirubin 0.09 AST 13 L ALT 20 Alkaline Phosphatase 160 H Total Protein 8.1 Albumin 3.8 Globulin 4.3 H Lipase 88 Urine Color Yellow Urine Clarity Sl. Cloudy Urine pH 5.0 Ur Specific [place] 1.020 Urine Protein 15 H Urine Glucose (UA) Normal Urine Ketones 5 H Urine Occult Blood 25 H Urine Nitrite Negative Urine Bilirubin Negative Urine Urobilinogen Normal Ur Leukocyte Esterase 25 H Urine RBC 0 SEEN Urine WBC 5-10 SEEN Ur Squamous Epith Cells 0 SEEN Urine Bacteria 2+ Urine Mucus 0 SEEN Radiography Diagnostic Testing: Clinical Impression(s) from Imaging Studies Gallbladder Ultrasound 06/16/21 10:41 IMPRESSION: Fatty infiltration of the liver. Electronically Signed: Amado Bernardo MD at 12:28 EST , Discharge Plan Triage Chief Complaint: Nausea/Vomiting ED Provider: Austin Alcaraz Dx/Rx/DC Orders Clinical Impression: Chronic epigastric pain Instructions: ED Epigastric Pain Uncertain Cause Prescriptions: No Action topiramate 200 mg tablet 200 mg PO QHS RF: 0 carbamazepine 200 mg tablet 200 mg PO BID RF: 0 duloxetine 30 mg capsule,delayed release(DR/EC) 90 mg PO QHS RF: 0 aripiprazole [Abilify] 30 mg tablet 30 mg PO DAILY RF: 0 baclofen 10 mg tablet 10 mg PO TID RF: 0 benzonatate 200 mg capsule 200 mg PO TID PRN (Reason: cough) Qty: 180 RF: 2 sumatriptan succinate 50 mg tablet See Rx Instructions PO .COMPLEX Qty: 14 RF: 2 promethazine 25 mg tablet 25 mg PO BID PRN (Reason: nausea and vomiting) Qty: 60 RF: 1 ondansetron 8 mg tablet,disintegrating 8 mg PO Q8H PRN (Reason: nausea and vomiting) Qty: 30 RF: 0 pantoprazole 40 mg tablet,delayed release (DR/EC) 40 mg PO DAILY Qty: 180 RF: 2 trazodone 100 mg tablet 300 mg PO QHS RF: 0 gabapentin 600 mg tablet 600 mg PO TID RF: 0 hydroxyzine pamoate 25 mg capsule 50 mg PO TID PRN (Reason: Anxiety) RF: 0 prazosin 5 MG capsule 5 mg PO QHS RF: 0 Ultram 50 mg tablet 50 mg BID RF: 0 sucralfate [Carafate] 100 mg/mL suspension 10 ml PO BID Qty: 200 RF: 0 (DME) Handicap Placard See Rx Instructions .Route .MEDSUPPLY Qty: 1 RF: 0 epinephrine [EpiPen 2-Raymond] 0.3 mg/0.3 mL auto-injector 0.3 mg IM Q5-15M PRN (Reason: anaphylaxis) Qty: 2 RF: 3 levetiracetam [Keppra] 500 mg tablet 500 mg PO BID Qty: 180 RF: 1 Primary Care Provider: Gayle Munoz Referrals: Gayle Munoz MD [Primary Care Provider] - Gary Diaz DO [STAFF PHYSICIAN] - 2 Days Disposition Disposition: Home, Self Care
[2021-06-16] MEDS: Ondansetron 4 MG/2 ML Vial IV (11:03)
[2021-06-16] MEDS: Morphine 4 MG/ML Syringe IV (11:03)
[2021-06-16 11:04] LABS: Absolute Lymphocyte Count 1.61 X10^3/uL (0.83-4.51); Absolute Neutrophil Count 4.5 X10^3/uL (2.0-7.7); Basophil# 0.03 X10^3/uL; Basophil% 0.5 % (0-1); Eosinophil# 0.11 X10^3/uL; Eosinophils% 1.7 % (0-5); Hematocrit 40.1 % (37-47); Hemoglobin 13.4 g/dL (12.0-15.0); Lymphocyte # 1.61 X10^3/ul (0.83-4.51); Lymphocyte % 24.4 % (19-41); Mean Corp Hgb Conc 33.4 g/dL (32-36); Mean Corpuscular Hgb 33.6 pg (27.0-32.0); Mean Corpuscular Volume 100.5 fL (81-99); Monocyte# 0.31 X10^3/uL; Monocyte% 4.7 % (0-10); NRBC Flagged by Analyzer 0 % (0-5); Neutrophil # 4.53 X10^3/uL (2.7-7.7); Neutrophil % 68.4 % (47-70); Platelet Count 170 K/mm3 (150-450); RBC Distribution Width CV 12.4 % (11.6-14.6); RBC Distribution Width SD 46.2 fl (35.1-43.9); Red Blood Count 3.99 M/mm3 (4.2-5.4); White Blood Count 6.6 K/mm3 (4.4-11.0)
[2021-06-16] MEDS: 0.9% Normal Saline 1,000 ML 1000 ML IV (11:04)
[2021-06-16 11:20] LABS: AST(SGOT) 13 U/L (15-37); Alanine Aminotransfer ALT/SGPT 20 U/L (13-56); Albumin, Serum 3.8 g/dL (3.2-5.0); Alkaline Phosphatase 160 U/L (45-117); Anion Gap 6 (5-15); BUN 10 mg/dL (7-18); BUN/Creat Ratio 14.9 RATIO (10-20); Bilirubin, Direct 0.09 mg/dL (0.00-0.30); Calcium,Total 8.8 mg/dL (8.5-10.1); Chloride 105 mmol/L (98-107); Creatinine, Serum 0.67 mg/dL (0.55-1.02); EST Glomerular Filtration Rate 101 mL/min (>60); Est Glom Filt Rate - Afr Amer 123 mL/min (>60); Globulin 4.3 g/dL (2.2-4.2); Glucose 111 mg/dL (74-106); Lipase 88 U/L (73-393); Potassium 3.3 mmol/L (3.5-5.1); Protein, Total 8.1 g/dL (6.4-8.2); Sodium Level 140 mmol/L (136-145)
[2021-06-16 11:28] LABS: Mucous, Urine 0 SEEN /hpf (<or=2+); Red Blood Cells-Urine 0 SEEN /hpf (0-5); Squamous Epithelial Cells - UA 0 SEEN /hpf (5-10)
[2021-06-16 11:34] LABS: Color, Urine Yellow (Yellow); Glucose, Dipstick Normal (Normal); Ketone-Dipstick 5 mg/dl (Negative); Leukocyte Esterase-Dipstick 25 /ul (Negative); Nitrite-Dipstick Negative (Negative); Occult Blood-Urine 25 /ul (Negative); Protein-Dipstick 15 mg/dl (Negative); Urine Bilirubin Dipstick Negative (Negative); Urine Clarity Sl. Cloudy (Clear); Urine Urobilinogen Normal (Normal)
[2021-06-16 11:52] LABS: Bacteria 2+ /hpf (None Seen); White Blood Cells 5-10 SEEN /hpf (0-5)
[2021-06-16 13:48] VITALS: RESP 18
== END 2021-06-16 13:50 | disposition home or self-care (01) ==
PROVIDERS: Emergency Provider Emergency Medicine; PCP Internal Medicine; Visit Provider Emergency Medicine
DX: R10.13 Epigastric pain (principal); G89.29 Other chronic pain; F17.210 Nicotine dependence, cigarettes, uncomplicated; Z86.73 Personal history of transient ischemic attack (TIA), and cerebral infarction without residual deficits
CPT/HCPCS: 76705; 80048; 80076; 81001; 83690; 85025; 96361; 96374; 96375; 99283; J2405

== ENCOUNTER 2021-06-22 07:36 | Day surgery (SDC) | payer MEDICAID, SELFPAY ==
[2021-06-22] VITALS (10 sets, daily range): BP systolic 70–116; BP diastolic 48–63; PULSE 56–89; RESP 16; TEMP 36.2–36.9; O2SAT 96–100; BMI 34.4
--- NOTE | 2021-06-22 | COLBX_PTH ---
PATIENT: CHARLOTTE VASQUEZ LOC: EN U#:[id number] AGE/SX: 45/F ROOM: RE06/22/[address]: Dr. Gary Diaz DO : 1975 BED: DIS: 06/22/2021 SPEC #: [id number] RECD: 06/22/21 12:37 STATUS: RAMON REBrent #: [id number] CHERYL: 06/22/21 00:[address]: Gary Diaz DEPT: SURGICAL PATHOLOGY RECD BY: Jerod Hamilton ENTERED: 06/22/21 12:38 SP TYPE: COLON BX OTHR DR: Dr. Gayle Munoz MD Tissues: A - Duodenum, NOS B - Esophageal mucous membrane C - Gastric mucous membrane D - Descending colon E - Ileum, NOS F - COLON BIOPSY Procedures: Surgery Specimen Level IV HEADER OPERATION: Colonoscopy, [place] with biopsies PRE-OP DIAGNOSIS: Dysphagia, lower GI bleeding, abdominal pain TISSUE SUBMITTED: A ? Duodenum biopsy, B ? Distal esophagus biopsy, C ? Gastric antrum biopsy, D ? Descending colon biopsy, E ? Terminal ileum biopsy, F ? Random colon biopsy MICROSCOPIC DIAGNOSIS A. Duodenum, biopsy: No pathologic change. B. Distal esophagus, biopsy: Gastroesophageal junctional mucosa with chronic inflammation. Consistent with reflux esophagitis. No evidence of goblet cell metaplasia. See comment. C. Gastric antrum, biopsy: Mild chronic inflammation. D. Descending colon, biopsy: Fragments of tubular adenoma. E. Terminal ileum, biopsy: No pathologic change. F. Colon, random biopsy: No pathologic change. AM:rodolfo 06/23/2021 COMMENT B. Alcian blue/PAS stain with matched control supports the above diagnosis. C. The results of immunohistochemistry for Helicobacter pylori will be reported separately ([id number]). MICROSCOPIC DESCRIPTION Slides are reviewed. GROSS DESCRIPTION A - Received in fixative is one container labeled with the patient's name and designated duodenum biopsy. The specimen consists of one irregular fragment of light doyle soft tissue that measures 0.6 x 0.3 x 0.1 cm. The specimen is totally submitted in one cassette. B - Received in fixative is one container labeled with the patient's name and designated distal esophagus biopsy. The specimen consists of one irregular fragment of light doyle soft tissue that measures 0.6 x 0.6 x 0.1 cm. The specimen is totally submitted in one cassette. C - Received in fixative is one container labeled with the patient's name and designated gastric antrum biopsy. The specimen consists of one irregular fragment of light doyle soft tissue that measures 0.5 x 0.5 x 0.1 cm. The specimen is totally submitted in one cassette. D - Received in fixative is one container labeled with the patient's name and designated descending colon biopsy. The specimen consists of multiple irregular fragments of light doyle soft tissue that in aggregate measure 1 x 0.6 x 0.1 cm. The specimen is totally submitted in one cassette. E - Received in fixative is one container labeled with the patient's name and designated terminal ileum biopsy. The specimen consists of multiple irregular fragments of light doyle soft tissue that in aggregate measure 1 x 0.5 x 0.1 cm. The specimen is totally submitted in one cassette. F - Received in fixative is one container labeled with the patient's name and designated random colon biopsy. The specimen consists of multiple irregular fragments of light doyle soft tissue that in aggregate measure 2 x 0.6 x 0.1 cm. The specimen is totally submitted in one cassette. / AM:rodolfo 06/22/2021 TC:3 CPT: 56503 [id number]
[2021-06-22] MEDS: Lactated Ringers 1,000 ML 30 ML IV (08:15)
--- NOTE | 2021-06-22 08:45 | IMM_PTH ---
PATIENT: CHARLOTTE VASQUEZ LOC: EN U#:[id number] AGE/SX: 45/F ROOM: RE06/22/[address]: Dr. Gary Diaz DO : 1975 BED: DIS: 06/22/2021 SPEC #: [id number] RECD: 06/22/21 14:10 STATUS: RAMON REQ #: [id number] CHERYL: 06/22/21 08:[address]: Gary Diaz DEPT: IMMUNOHISTOCHEMISTRY RECD BY: Mari Tamayo ENTERED: 06/22/21 14:11 SP TYPE: IMMUNO OTHR DR: Dr. Gayle Munoz MD Tissues: C - Stomach, NOS Procedures: H Pylori (initial) PHYSICIAN & INSTITUTION [place] [address] SPECIMEN INFORMATION: Tissue Source: C ? Gastric antrum biopsy Clinical Info: Dysphagia, lower GI bleeding, abdominal pain Specimen Number: [id number] CPT code: 79346 METHODOLOGY: Deparaffinized sections of prefer/formalin-fixed tissue or PAP/DQ stained slides are incubated with monoclonal/polyclonal antibodies/oligonucleotide probes. Localization is made via biotin free immunoperoxidase method. Appropriate controls are performed and reacted as expected. Results on target cell population are indicated in the following table: RESULTS: ANTIBODY / CLONE RESULT Block C H Pylori (polyclonal) negative These tests were developed and their performance characteristics determined by [facility]. They may not have been cleared or approved by the [place]. Food and Drug Administration. The FDA has determined that such clearance or approval is not necessary. INTERPRETATION: C. Gastric antrum, biopsy: Negative for Helicobacter pylori organisms. AM:rodolfo 06/24/2021
--- NOTE | 2021-06-22 08:49 | HP.PCM_ITS ---
History and Physical Date of Admission: 06/22/21 45 F who presents to the office today for Abdominal pain and rectal pain that can be crampy and sharp or a dull ache occurring 3-4 times a week on a fairly regular basis with rectal bleeding occurring every other week and lasting 3-4 days. Food (meats or hard to chew foods) gets stuck in esophagus; denies need to Heimlich or ED presentation, esophageal pain with PO intake with meats and harder to chew foods, nausea with emesis occurring daily. Reports onset of all symptoms at age 18 with significant progression in the last year. Diet change includes cessation fried food and fast food. Reports a diet of toast, applesauce, rice and soups. She has a bladder stimulator that is connected to the bowel closest to her urinary bladder. Additional medical history includes acute and interstitial cystitis, Lamar?s palsy, cervical and uterine cancer, fibromyalgia, hematuria, hypokalemia, IBS, kidney stones, neuropathy, seizures, stroke. Family history includes asthma and diabetes. She was previously seeing some doctors for this but last presentation was three years prior. At this time she had an EGD and a colonoscopy. ROS Const Constitutional: No anorexia, fatigue, fever(s), weight change or sleep problems Eyes Eyes: No change in vision ENT ENT: No abnormal hearing, difficulty swallowing, mouth lesions, tongue swelling or throat swelling Resp Respiratory: No cough or shortness of breath Cardio Cardiology: No chest pain at rest, chest pain with exertion, shortness of breath or dyspnea on exertion Gastro GI: No difficulty swallowing Genitourinary-Female: No difficulty urinating or burning urination Musc Musculoskeletal: No joint pain, joint swelling, muscle weakness or decreased muscle mass Skin Skin: No hair loss in leg, yellowing of the eye, itchy eyes, rash, skin ulcer or skin swelling Neuro Neurology: No abnormal hearing, abnormal movements, confusion, unsteady gait/balance or memory loss Psych Psychiatric: No anxiety, No confusion and No memory loss Endo Endocrine: No fatigue or weight change Aller/Imm Allergy/Immunologic: No itchy eyes, throat swelling or tongue swelling Esteban/Lymp Hematologic/Lymphatic: No easy bleeding, easy bruising or enlarged lymph nodes Exam Const General: cooperative and comfortable Nutritional Appearance: average body habitus and well nourished HENMT Head: normal to inspection Ears: hearing grossly normal bilaterally Nose: external nose normal Face and sinus: normal facial exam Mouth: oral mucosae normal Throat: posterior oropharynx normal Eyes General: appearance normal, both eyes and all related structures Neck Neck: normal visual inspection Chest Chest palpation & inspection: normal inspection of the chest and normal palpation of entire chest wall Resp Effort & Inspection: normal respiratory effort Auscultation: Bilateral: Clear to Auscultation Cardio Palpation: normal PMI Rate: regular rate Rhythm: regular rhythm GI Inspection: normal to inspection Auscultation: normal bowel sounds Percussion: normal to percussion Palpation: no hepatosplenomegaly Skin General: no rashes or lesions noted Neuro General: patient alert Extrem General: normal to inspection Psych Affect: normal affect Quality Reporting Tobacco Screening ([facility] 138) Smoking Status: Current every day smoker Assessment and Plan Assessment and Plan (1) Dysphagia: Status: Acute Plan - Dr. Gary Diaz, DO: The differential diagnosis for esophageal dysphagia would be eosinophilic esophagitis. She says that she does have eosinophilic esophagitis but has never been on budesonide or PPI therapy more than once a day. She will undergo an upper endoscopy to evaluate upper GI tract. She was explained alternatives, risk, benefits including not withstanding bleeding, infection, sepsis, perforation, need emergency or . She will have an ASA of 1. (2) Lower GI bleeding: Status: Acute Plan - Dr. Gary Diaz, DO: Diagnosis for lower GI bleeding would be hemorrhoidal disease, anal fissure, diverticular disease, inflammatory bowel disease due to her age. She should undergo colonoscopy. She was explained alternatives, risk, benefits including outstanding bleeding, infection, sepsis, perforation, need for emergent . She was an ASA of 1. (3) Abdominal pain: Status: Acute Plan - Dr. Vega Friend, DO: The differential diagnosis for abdominal pain will be peptic ulcer disease, celiac disease, functional bowel disease, sphincter of Oddi syndrome. She will undergo upper endoscopy and imaging of her liver with a HIDA scan without CCK to look for signs of sphincter of Oddi disease, biochemical work-up for celiac disease, biopsies of the esophagus stomach and small bowel to look for signs of eosinophilic gastroenteritis along with a serum IgE level and protein electrophoresis. I have re-examined the patient. There are no clinical changes since date of exam.
--- NOTE | 2021-06-22 09:51 | OP.EGD_ITS ---
Patient Name: Crys Franks Procedure Date: 06/22/2021 8:56 AM Date of : 1975 Age: 45 Procedure: Upper GI endoscopy Indications: Epigastric abdominal pain, Functional Dyspepsia, Heartburn Providers: Gary Diaz DO Referring MD: Gary Diaz DO Medicines: See the Anesthesia note for documentation of the administered medications Patient Profile: This is a 45 year old female. Refer to note in patient chart for documentation of history and physical. Patient has symptoms. She is status post EGD for biopsy five years ago. Complications: No immediate complications. Procedure: Pre-Anesthesia Assessment: - Prior to the procedure, a History and Physical was performed, and patient medications and allergies were reviewed. The patient is competent. The risks and benefits of the procedure and the sedation options and risks were discussed with the patient. All questions were answered and informed consent was obtained. Patient identification and proposed procedure were verified by the physician in the pre-procedure area. Mental Status Examination: alert and oriented. Airway Examination: normal oropharyngeal airway and neck mobility. Respiratory Examination: clear to auscultation. CV Examination: normal. Prophylactic Antibiotics: The patient does not require prophylactic antibiotics. Prior Anticoagulants: The patient has taken no previous anticoagulant or antiplatelet agents. After reviewing the risks and benefits, the patient was deemed in satisfactory condition to undergo the procedure. The anesthesia plan was to use moderate sedation / analgesia (conscious sedation). Immediately prior to administration of medications, the patient was re-assessed for adequacy to receive sedatives. The heart rate, respiratory rate, oxygen saturations, blood pressure, adequacy of pulmonary ventilation, and response to care were monitored throughout the procedure. The physical status of the patient was re-assessed after the procedure. After obtaining informed consent, the endoscope was passed under direct vision. Throughout the procedure, the patient's blood pressure, pulse, and oxygen saturations were monitored continuously. The gastroscope was introduced through the mouth, and advanced to the second part of duodenum. The upper GI endoscopy was accomplished without difficulty. The patient tolerated the procedure well. Moderate Sedation: Moderate (conscious) sedation was administered by the endoscopy nurse and supervised by the endoscopist. The patient's oxygen saturation, heart rate, blood pressure and response to care were monitored. Total physician intraservice time was 15 minutes. Scope In: 9:16:22 AM Scope Out: 9:23:49 AM Total Procedure Duration Time 0 hours 7 minutes 27 seconds Findings: LA Grade A (one or more mucosal breaks less than 5 mm, not extending between tops of 2 mucosal folds) esophagitis with no bleeding was found 34 to 36 cm from the incisors. Biopsies were taken with a cold forceps for histology. Verification of patient identification for the specimen was done. Estimated blood loss was minimal. Patchy mildly erythematous mucosa without bleeding was found in the gastric antrum. Biopsies were taken with a cold forceps for histology. Verification of patient identification for the specimen was done. Estimated blood loss was minimal. Patchy mildly erythematous mucosa without active bleeding and with no stigmata of bleeding was found in the duodenal bulb. Biopsies were taken with a cold forceps for histology. Verification of patient identification for the specimen was done. Estimated blood loss was minimal. Impression: - LA Grade A reflux esophagitis. Biopsied. - Erythematous mucosa in the antrum. Biopsied. - Erythematous duodenopathy. Biopsied. Recommendation: - Discharge patient to home. - Resume previous diet. - Continue present medications. - Await pathology results. - Repeat upper endoscopy in 1 year for surveillance. - Return to GI office. Procedure Code(s): --- Professional --- 29864, Esophagogastroduodenoscopy, flexible, transoral; with biopsy, single or multiple 26940, 59, Moderate sedation services provided by the same physician or other qualified health rn progressive care unit performing the diagnostic or therapeutic service that the sedation supports, requiring the presence of an independent trained observer to assist in the monitoring of the patient's level of consciousness and physiological status; initial 15 minutes of intraservice time, patient age 5 years or older CPT copyright 2017 [employer]. All rights reserved. The codes documented in this report are preliminary and upon safe expert review may be revised to meet current compliance requirements. Gary Diaz DO 06/22/2021 9:50:43 AM This report has been signed electronically. Number of Addenda: 1 Note Initiated On: 06/22/2021 8:56 AM Addendum Number: 1 Addendum Date: 01/04/2022 6:28:09 AM MAC was used as sedation for this procedure. Gary Diaz DO 01/04/2022 6:28:13 AM This report has been signed electronically.
--- NOTE | 2021-06-22 09:52 | OP.CCLET_ITS ---
01/04/2022 Gayle Munoz MD [address] [place] [address] [place] [address] Re : Upper GI endoscopy procedure for Crys Franks Dear Dr. Munoz This procedure was performed on Tuesday, June 22, 2021. My impressions and recommendations are as follows: Impressions : - LA Grade A reflux esophagitis. Biopsied. - Erythematous mucosa in the antrum. Biopsied. - Erythematous duodenopathy. Biopsied. Recommendations : - Discharge patient to home. - Resume previous diet. - Continue present medications. - Await pathology results. - Repeat upper endoscopy in 1 year for surveillance. - Return to GI office. My findings are described in the full procedure note, which is enclosed. If I can be of further assistance, please feel free to contact me at . Sincerely, Gary Diaz, 06/22/2021 9:50:43 AM This report has been signed electronically.
--- NOTE | 2021-06-22 09:56 | OP.COLON_ITS ---
Patient Name: Crys Franks Procedure Date: 06/22/2021 9:24 AM Date of : 1975 Age: 45 Procedure: Colonoscopy Indications: Epigastric abdominal pain, Abdominal pain in the left lower quadrant Providers: Gary Diaz DO Referring MD: Gary Diaz DO Medicines: See the Anesthesia note for documentation of the administered medications Patient Profile: This is a 45 year old female. Refer to note in patient chart for documentation of history and physical. Patient has symptoms. She is status post EGD for biopsy five years ago. She is status post colonoscopy for biopsy five years ago. Last Colonoscopy: 5 years ago. Complications: No immediate complications. Procedure: Pre-Anesthesia Assessment: - Prior to the procedure, a History and Physical was performed, and patient medications and allergies were reviewed. The patient is competent. The risks and benefits of the procedure and the sedation options and risks were discussed with the patient. All questions were answered and informed consent was obtained. Patient identification and proposed procedure were verified by the physician in the pre-procedure area. Mental Status Examination: alert and oriented. Airway Examination: normal oropharyngeal airway and neck mobility. Respiratory Examination: clear to auscultation. CV Examination: normal. Prophylactic Antibiotics: The patient does not require prophylactic antibiotics. Prior Anticoagulants: The patient has taken no previous anticoagulant or antiplatelet agents. After reviewing the risks and benefits, the patient was deemed in satisfactory condition to undergo the procedure. The anesthesia plan was to use moderate sedation / analgesia (conscious sedation). Immediately prior to administration of medications, the patient was re-assessed for adequacy to receive sedatives. The heart rate, respiratory rate, oxygen saturations, blood pressure, adequacy of pulmonary ventilation, and response to care were monitored throughout the procedure. The physical status of the patient was re-assessed after the procedure. After I obtained informed consent, the scope was passed under direct vision. Throughout the procedure, the patient's blood pressure, pulse, and oxygen saturations were monitored continuously. The pediatric colonoscope was introduced through the anus and advanced to the terminal ileum. The colonoscopy was performed without difficulty. The patient tolerated the procedure well. The quality of the bowel preparation was good. Moderate Sedation: Moderate (conscious) sedation was administered by the endoscopy nurse and supervised by the endoscopist. The following parameters were monitored: oxygen saturation, heart rate, blood pressure, and response to care. Total physician intraservice time was 15 minutes. Scope In: 9:27:07 AM Scope Withdrawal Time 0 hours 8 minutes 50 seconds Scope Out: 9:44:54 AM Total Procedure Duration Time 0 hours 17 minutes 47 seconds Findings: The perianal and digital rectal examinations were normal. An area of mildly congested mucosa was found in the sigmoid colon. Two biopsies were taken every 10 cm with a cold forceps from the ascending colon, right colon, left colon, transverse colon, right transverse colon, left transverse colon, descending colon and sigmoid colon for evaluation of microscopic colitis. These biopsy specimens from the ascending colon, right colon, left colon, transverse colon, right transverse colon, left transverse colon, descending colon and sigmoid colon were sent to Pathology. Verification of patient identification for the specimen was done. Estimated blood loss was minimal. A 5 mm polyp was found in the sigmoid colon. The polyp was sessile. The polyp was removed with a hot snare. Resection and retrieval were complete. Verification of patient identification for the specimen was done. Estimated blood loss was minimal. A patchy area of the terminal ileum was congested. Biopsies were taken with a cold forceps for histology. Verification of patient identification for the specimen was done. Estimated blood loss was minimal. Impression: - Congested mucosa in the sigmoid colon. Biopsied. - One 5 mm polyp in the sigmoid colon, removed with a hot snare. Resected and retrieved. - Congested mucosa in the terminal ileum. Biopsied. Recommendation: - Discharge patient to home. - Resume previous diet. - Continue present medications. - Await pathology results. - Repeat colonoscopy in 5 years for surveillance. - Return to GI office. Procedure Code(s): --- Professional --- 41644, Colonoscopy, flexible; with removal of tumor(s), polyp(s), or other lesion(s) by snare technique 96962, 59, Colonoscopy, flexible; with biopsy, single or multiple 15507, 59, Moderate sedation services provided by the same physician or other qualified health vp care management performing the diagnostic or therapeutic service that the sedation supports, requiring the presence of an independent trained observer to assist in the monitoring of the patient's level of consciousness and physiological status; initial 15 minutes of intraservice time, patient age 5 years or older CPT copyright 2017 [employer]. All rights reserved. The codes documented in this report are preliminary and upon new vehicle sales consultant review may be revised to meet current compliance requirements. Gary Diaz DO 06/22/2021 9:56:00 AM This report has been signed electronically. Number of Addenda: 1 Note Initiated On: 06/22/2021 9:24 AM Addendum Number: 1 Addendum Date: 01/04/2022 6:28:20 AM MAC was used as sedation for this procedure. Gary Diaz DO 01/04/2022 6:28:26 AM This report has been signed electronically.
--- NOTE | 2021-06-22 09:57 | OP.CCLET_ITS ---
01/04/2022 Gayle Munoz MD [address] [place] [address] [place] [address] Re : Colonoscopy procedure for Crys Golden Dear Dr. Munoz This procedure was performed on Tuesday, June 22, 2021. My impressions and recommendations are as follows: Impressions : - Congested mucosa in the sigmoid colon. Biopsied. - One 5 mm polyp in the sigmoid colon, removed with a hot snare. Resected and retrieved. - Congested mucosa in the terminal ileum. Biopsied. Recommendations : - Discharge patient to home. - Resume previous diet. - Continue present medications. - Await pathology results. - Repeat colonoscopy in 5 years for surveillance. - Return to GI office. My findings are described in the full procedure note, which is enclosed. If I can be of further assistance, please feel free to contact me at . Sincerely, Gary Diaz, 06/22/2021 9:56:00 AM This report has been signed electronically.
== END 2021-06-22 23:59 | disposition home or self-care (01) ==
LOC: EN 07:36 → AC 07:38
PROVIDERS: PCP Internal Medicine; Referring Provider Internal Medicine Gastroenterology; Visit Provider Internal Medicine Gastroenterology
PROC: 0DJD8ZZ Inspection of Lower Intestinal Tract, Via Natural or Artificial Opening Endoscopic (ICD-10-PCS; CPT 45378; principal; 2021-06-22 08:40)
DX: D12.4 Benign neoplasm of descending colon (principal); K21.00 Gastro-esophageal reflux disease with esophagitis, without bleeding; K29.50 Unspecified chronic gastritis without bleeding; K63.89 Other specified diseases of intestine; F17.200 Nicotine dependence, unspecified, uncomplicated; F32.A Depression, unspecified; F41.9 Anxiety disorder, unspecified; M19.90 Unspecified osteoarthritis, unspecified site; Z86.73 Personal history of transient ischemic attack (TIA), and cerebral infarction without residual deficits; Z79.899 Other long term (current) drug therapy
CPT/HCPCS: 45380; 45385; 43239; 87426; 88305; 88342; C9803; J7120; J2405

== ENCOUNTER 2021-07-13 08:51 | Outpatient (CLI) | payer MEDICAID, SELFPAY ==
[2021-07-13 09:26] LABS: International Normalized Ratio 0.9
[2021-07-13 09:28] LABS: Erythrocyte Sedimentation Rate 12 mm/hr (0-30)
[2021-07-13 09:54] LABS: AST(SGOT) 16 U/L (15-37); Alanine Aminotransfer ALT/SGPT 21 U/L (13-56); Albumin, Serum 3.4 g/dL (3.2-5.0); Alkaline Phosphatase 141 U/L (45-117); Bilirubin, Direct 0.08 mg/dL (0.00-0.30); CRP 4.92 mg/L (0.0-3.0); Ferritin 42 ng/mL (8-252); GGTP 51 U/L (5-55); Hemoglobin A1c 5.4 % (3.8-5.6); LDH 203 U/L (84-246); Protein, Total 7.4 g/dL (6.4-8.2)
[2021-07-13 10:17] LABS: HIV - WCH Non-Reactive (Nonreactive)
[2021-07-14 15:08] LABS: Anti-Centromere B Ab <0.2 AI (0.0-0.9); Anti-Chromatin <0.2 AI (0.0-0.9); Anti-Jo <0.2 AI (0.0-0.9); RNP Ab <0.2 AI (0.0-0.9); SJOGREN'S Anti-SS-A test < 0.2 AI (0.0-0.9); SJOGREN'S Anti-SS-B test < 0.2 AI (0.0-0.9); Smith Ab <0.2 AI (0.0-0.9)
[2021-07-15 13:47] LABS: Anti-Mitochondrial AB <20.0 Units (0.0-20.0); Anti-dsDNA Ab 6 IU/mL (0-9)
[2021-07-19 12:00] LABS: Angiotensin Convert Enzyme 28 U/L (14-82); Ceruloplasmin 24.8 mg/dL (19.0-39.0); Cytoplasmic Ab (C-ANCA) <1:20 titer (Neg:<1:20); HEPATITIS B SURFACE AG Negative (Negative); Hepatitis A IgM Antibody Negative (Negative); Hepatitis B Core AB IgM Negative (Negative)
[2021-07-19 16:17] LABS: Anti-Smooth Muscle ABS 15 Units (0-19); Copper, Serum or Plasma 110 ug/dL (80-158); Haptoglobin 211 mg/dL (42-296); Hep C Antibodies 0.2 s/co ratio (0.0-0.9); Perinuclear Ab (P-ANCA) <1:20 titer (Neg:<1:20)
== END 2021-07-13 23:59 | disposition home or self-care (01) ==
LOC: LAB 08:52
PROVIDERS: PCP Internal Medicine; Referring Provider Nurse Practitioner Adult Health; Visit Provider Nurse Practitioner Adult Health
DX: K76.0 Fatty (change of) liver, not elsewhere classified (principal)
CPT/HCPCS: 36415; 86235 ×5; 80076; 82140; 82390; 86256 ×3; 86703; 82164; 82525; 82977; 83516 ×2; 86140; 86225; 83010; 80074; 83036; 85652; 82728; 83615; 85610

== ENCOUNTER 2021-07-13 16:50 | Emergency (ER) | payer MEDICAID, SELFPAY ==
[2021-07-13 16:50] VITALS: BP 131/59; PULSE 84; RESP 14; TEMP 35.8; O2SAT 97; BMI 34.4
[2021-07-13 17:21] LABS: Bacteria 0 SEEN /hpf (None Seen); Red Blood Cells-Urine 0 SEEN /hpf (0-5)
[2021-07-13 17:25] LABS: Color, Urine Yellow (Yellow); Glucose, Dipstick Normal (Normal); Ketone-Dipstick Negative (Negative); Leukocyte Esterase-Dipstick Negative /ul (Negative); Nitrite-Dipstick Negative (Negative); Occult Blood-Urine 10 /ul (Negative); Protein-Dipstick 15 mg/dl (Negative); Specific Gravity, Urine 1.015 (1.002-1.030); Urine Bilirubin Dipstick Negative (Negative); Urine Clarity Clear (Clear); Urine Urobilinogen Normal (Normal); Urine pH 6.5 (5.0 - 8.0)
[2021-07-13 17:35] LABS: Mucous, Urine 1+ /hpf (<or=2+); Squamous Epithelial Cells - UA 0-5 SEEN /hpf (5-10); White Blood Cells 0-5 SEEN /hpf (0-5)
[2021-07-13] MEDS: Ondansetron 4 MG/2 ML Vial IV (17:38)
[2021-07-13] MEDS: Morphine 4 MG/ML Syringe IV (17:38)
[2021-07-13] MEDS: MethylPREDNISolone 125 MG/2 ML Vial IV (17:38)
[2021-07-13] MEDS: DiphenhydrAMINE 50 MG/ML Syringe 25 MG IV (17:38)
[2021-07-13 17:39] LABS: Absolute Lymphocyte Count 2.47 X10^3/uL (0.83-4.51); Absolute Neutrophil Count 3.5 X10^3/uL (2.0-7.7); Basophil# 0.03 X10^3/uL; Basophil% 0.4 % (0-1); Eosinophil# 0.27 X10^3/uL; Hematocrit 37.1 % (37-47); Hemoglobin 12.2 g/dL (12.0-15.0); Lymphocyte # 2.47 X10^3/ul (0.83-4.51); Mean Corp Hgb Conc 32.9 g/dL (32-36); Mean Corpuscular Hgb 33.2 pg (27.0-32.0); Mean Corpuscular Volume 101.1 fL (81-99); Mean Platelet Vol. 11.5 fl (6.2-12.0); Monocyte# 0.42 X10^3/uL; Monocyte% 6.3 % (0-10); NRBC Flagged by Analyzer 0 % (0-5); Neutrophil # 3.46 X10^3/uL (2.7-7.7); Platelet Count 190 K/mm3 (150-450); RBC Distribution Width CV 12.5 % (11.6-14.6); RBC Distribution Width SD 46.6 fl (35.1-43.9); Red Blood Count 3.67 M/mm3 (4.2-5.4); White Blood Count 6.7 K/mm3 (4.4-11.0)
[2021-07-13 17:49] LABS: ALB/GLOB Ratio 0.8 RATIO (0.9-2.4); AST(SGOT) 19 U/L (15-37); Alanine Aminotransfer ALT/SGPT 21 U/L (13-56); Albumin, Serum 3.5 g/dL (3.2-5.0); Alkaline Phosphatase 149 U/L (45-117); Anion Gap 4 (5-15); BUN 15 mg/dL (7-18); BUN/Creat Ratio 18.4 RATIO (10-20); Calcium,Total 8.5 mg/dL (8.5-10.1); Chloride 110 mmol/L (98-107); Creatinine, Serum 0.82 mg/dL (0.55-1.02); EST Glomerular Filtration Rate 81 mL/min (>60); Est Glom Filt Rate - Afr Amer 97 mL/min (>60); Estimated Creatinine Clearance 85.14 ml/min; Globulin 4.3 g/dL (2.2-4.2); Glucose 93 mg/dL (74-106); Lipase 101 U/L (73-393); Potassium 3.7 mmol/L (3.5-5.1); Protein, Total 7.8 g/dL (6.4-8.2); Sodium Level 139 mmol/L (136-145); Total Bilirubin < 0.10 mg/dL (0.20-1.00)
[2021-07-13 18:03] LABS: Prothrombin Time (Protime)PT. 12.7 SECONDS (11.7-14.9)
[2021-07-13 18:15] LABS: Internal QC Validated? YES +Cl - CLEAR BKGD; Pregnancy, Serum, hCG Quali. NEGATIVE Negative
--- NOTE | 2021-07-13 18:42 | CT_ITS ---
STUDY: CT Abdomen And Pelvis W/ Contrast Injection 07/13/2021 7:01 PM REASON FOR EXAM: Female, 45 years old. ABDOMINAL PAIN abdominal pain TECHNIQUE: Transaxial images were obtained without oral contrast, and with IV 100mL [id number]-300 intravenous contrast. Individualized dose optimization techniques were used for this CT. COMPARISON: 3.06.28. FINDINGS: The visualized lung bases are unremarkable. The visualized portions of the heart are within normal limits. Normal liver. Normal gallbladder and extrahepatic biliary system. Normal spleen. Normal pancreas. Normal bilateral adrenal glands. No acute findings of the right kidney. No acute findings of the left kidney. Normal visualized stomach. Normal small intestine. Stool throughout the colon. There are surgical clips in the region of the appendix consistent with a prior appendectomy. There are calcifications of the abdominal aorta. This is consistent for atherosclerotic disease. There is no abdominal aortic aneurysm. Normal inferior vena cava. Subcentimeter mesenteric lymph nodes. Normal urinary bladder. There is absence of the uterus consistent with a prior hysterectomy. There is an umbilical hernia containing fat. There are degenerative changes of the visualized lumbar spine. There is a left side sided subcutaneous implanted electronic device with leads extending into the spinal canal. This is likely an SCS (spinal cord stimulator). L5-S1 fusion device. IMPRESSION: (NOT LISTED IN ORDER OF SIGNIFICANCE) Hysterectomy changes. There are calcifications of the abdominal aorta. This is consistent for atherosclerotic disease. There is no abdominal aortic aneurysm. Other findings as above. Electronically Signed: Sylvain Johnson MD at 19:12 EDT , CT/Abdomen/Pelvis W IV Cont ONLY
[2021-07-13 19:27] VITALS: BP 104/63; PULSE 67; RESP 18; O2SAT 99
[2021-07-13] MEDS: Metoclopramide 10 MG/2 ML Vial IV (19:44)
--- NOTE | 2021-07-13 19:47 | ED.VIS.GI ---
HPI HPI - GI History of Present Illness Chief Complaint: Abd Pain Narrative Narrative: Patient presented with abdominal pain nausea, vomiting. She states she had a couple of episodes blood in her emesis. Patient having epigastric and right upper quadrant pain. Patient reports that she recently had upper endoscopy and lower endoscopy by Dr. Diaz. The studies were negative. Patient states he is currently awaiting small bowel follow-through by Dr. Diaz. Patient had recent right upper quadrant ultrasound which was negative as well. Patient denies fever, chills. She denies constipation or diarrhea. No urinary or vaginal complaints. [facility] Medical History Abdominal pain Acute cystitis Anxiety Arthritis Back pain Back problem Lamar's palsy Blurry vision, left eye Carpal tunnel syndrome Cellulitis Cervical cancer Colon polyp Depression Difficulty chewing Dizziness Elevated blood pressure reading Fall Fatty liver Fibromyalgia Foot pain, left Gastric reflux Gastrointestinal problem GI bleed Headache Hearing problem Hematuria History of IBS Hives Hx of emotional problems Hypokalemia Injury of head and neck Insect bite Interstitial cystitis Irritable bowel syndrome Kidney stones Lipoma Neuropathy Osteoarthritis Post-menopausal Seasonal allergies Seizures Seizures Sludge in gallbladder Smoker Stroke Ulcer Uterine cancer UTI (urinary tract infection) Wheel chair as ambulatory aid Wheelchair dependent Home Medications topiramate 200 mg tablet 200 mg PO QHS tab 08/15/18 [History Last Taken Unknown] duloxetine 30 mg capsule,delayed release 90 mg PO QHS 06/09/19 [History Last Taken Unknown] prazosin 5 mg PO QHS 09/17/19 [History Last Taken Unknown] trazodone 100 mg tablet 300 mg PO QHS tab 10/28/19 [History Last Taken Unknown] carbamazepine 200 mg tablet 200 mg PO BID tab 03/22/20 [History Last Taken 06/22/21] gabapentin 600 mg tablet 600 mg PO TID tab 03/22/20 [History Last Taken 06/22/21] hydroxyzine pamoate 25 mg capsule 50 mg PO TID PRN 03/22/20 [History Last Taken Unknown] Handicap Placard #1 ea 05/03/20 [Rx Last Taken Unknown] Ultram 50 mg PO/SL TID 12/30/20 [History Last Taken Unknown] aripiprazole 30 mg tablet 30 mg PO DAILY tab 01/07/21 [History Last Taken Unknown] epinephrine 0.3 mg/0.3 mL injection, auto-injector 0.3 mg IM Q5-15M PRN #2 ea 02/24/21 [Rx Last Taken Unknown] baclofen 10 mg tablet 10 mg PO TID 03/23/21 [History Last Taken Unknown] levetiracetam 500 mg tablet 500 mg PO BID #180 tab 04/05/21 [Rx Last Taken Unknown] ondansetron 8 mg disintegrating tablet 8 mg PO Q8H PRN #30 tab 04/20/21 [Rx Last Taken Unknown] pantoprazole 40 mg tablet,delayed release 40 mg PO DAILY #180 tab 04/20/21 [Rx Last Taken Unknown] benzonatate 200 mg capsule 200 mg PO TID PRN #180 cap 06/01/21 [Rx Last Taken Unknown] promethazine 25 mg tablet 25 mg PO BID PRN #60 tab 06/01/21 [Rx Last Taken Unknown] sumatriptan succinate 50 mg tablet See Rx Instructions PO .COMPLEX #14 tab 06/01/21 [Rx Last Taken Unknown] sucralfate [Carafate] 10 ml PO BID #200 ml 06/09/21 [Rx Last Taken Unknown] dicyclomine 10 mg capsule 10 mg PO TID #90 cap 07/13/21 [Rx Last Taken Unknown] metoclopramide HCl [Reglan] 5 mg PO Q6H #14 tab 07/13/21 [Rx Last Taken Unknown] Allergy/AdvReac Type Severity Reaction Status Date / Time venom-honey bee Allergy Severe severe Verified 07/13/21 16:52 venom-wasp Allergy Severe severe Verified 07/13/21 16:52 ciprofloxacin [From Cipro] Allergy Rash Verified 07/13/21 16:52 erythromycin base Allergy Anaphylaxis Verified 07/13/21 16:52 iodine Allergy Anaphylaxis Verified 07/13/21 16:52 latex Allergy Rash Verified 07/13/21 16:52 metronidazole [From Flagyl] Allergy Anaphylaxis Verified 07/13/21 16:52 naproxen [From Naprosyn] Allergy Anaphylaxis Verified 07/13/21 16:52 Penicillins Allergy Anaphylaxis Verified 07/13/21 16:52 shellfish derived Allergy Anaphylaxis Verified 07/13/21 16:52 adhesive AdvReac Mild BLISTERS Verified 07/13/21 16:52 Family History Father Asthma Grandfather No problems noted. Grandmother Asthma Brother Lung cancer Diabetes Hypertension Grandfather Asthma Grandmother Asthma Hypertension Mother Diabetes Aunt Diabetes Son Seizures Asthma Surgical History History of appendectomy History of bladder repair surgery History of carpal tunnel surgery of right wrist History of colonoscopy History of esophagogastroduodenoscopy (EGD) History of hysterectomy History of orthopedic surgery History of spinal surgery Hx of repair of right rotator cuff Hx of surgical procedure S/P left knee surgery S/P umbilical hernia repair, follow-up exam Status post left foot surgery Social History Smoking Status: Light Smoker (<10/day) alcohol intake: never substance use type: does not use what type of physical activity do you participate in: none ROS ROS ED Constitutional Constitutional ED: Denies chills or fever(s) ENT ENT ED: Denies rhinorrhea or sore throat Cardiovascular Cardiovascular: Denies chest pain or palpitations Respiratory/Chest Respiratory/Chest: Denies cough or dyspnea Gastrointestinal Gastrointestinal: Reports abdominal pain, nausea, vomiting and other Details: Hematemesis ; Denies constipation or diarrhea Genitourinary Genitourinary ED: Denies dysuria or hematuria Musculoskeletal Musculoskeletal: Denies arthralgias or myalgias Integumentary Denies rash Neurologic Neurologic: Denies headache(s), paresthesias or weakness Psychiatric Psychiatric: Denies anxiety or depression Endocrine Endocrinology: Denies polydipsia or polyuria EXAM Physical Exam Const Vital Signs: 07/13/21 16:50 07/13/21 19:27 Temperature 96.5 F L Temperature Source Temporal Pulse Rate 84 67 Respiratory Rate 14 18 Blood Pressure 131/59 H 104/63 Blood Pressure Mean 83 76 Pulse Ox 97 99 Oxygen Delivery Method Room Air Room Air Positive well nourished General Appearance ED: NAD; Negative for pallor HEENT Reports moist mucous membranes normocephalic and atraumatic Eyes PERRL and EOMs intact bilaterally General Eye ED: Negative for pale conjunctiva or scleral icterus Neck no lymphadenopathy and supple Resp normal respiratory effort and clear to auscultation bilaterally Cardio regular rate and regular rhythm GI non-distended Palpation: soft and tender epigastric and RUQ Back/Spine no CVA tenderness Neuro Sensorium / Orientation: alert, oriented to person, oriented to place and oriented to time Psych mental status grossly normal Skin General Skin Exam: Negative for jaundice or pallor Lesions: no lesions Rashes: no rashes MDM MDM MDM Narrative Medical decision making narrative: Patient presenting with epigastric and right upper quadrant pain. She had recent upper and lower endoscopy as well as recent right upper quadrant ultrasound and these were nondiagnostic. She did have sludge in her gallbladder. His CBC today shows no leukocytosis. Hemoglobin stable at 12.2. Platelets 190. Renal function and electrolytes are normal. LFTs within normal limits with exception of an alkaline phosphatase of 149. Serum negative. Coagulation studies normal. Urinalysis negative for infection. CT of the abdomen pelvis shows no acute intra-abdominal pathology. Patient was discussed with Dr. Diaz as he has seen her in follow-up previously. I did not do an occult stool because she admits to some blood in her emesis and this would likely be positive I do not believe will change her disposition given that she has normal vitals and a normal work-up. He recommended putting her on Reglan before she goes home and he will follow-up with outpatient. Impression: 1. Abdominal pain 2. Lisa-Baker tear Lab Data Attestation: I reviewed the patient's lab results. Labs: Laboratory Results - last 24 hr 07/13/21 07/13/21 07/13/21 17:15 17:15 17:15 WBC 6.7 RBC 3.67 L Hgb 12.2 Hct 37.1 MCV 101.1 H MCH 33.2 H MCHC 32.9 RDW Std Deviation 46.6 H RDW Coeff of Karina 12.5 Plt Count 190 MPV 11.5 Immature Gran % (Auto) 0.300 Neut % (Auto) 52.0 Lymph % (Auto) 37.0 [place] % (Auto) 6.3 Eos % (Auto) 4.0 Baso % (Auto) 0.4 Absolute Neuts (auto) 3.5 Absolute Lymphs (auto) 2.47 Nucleated RBC % 0 PT INR Sodium 139 Potassium 3.7 Chloride 110 H Carbon Dioxide 25.0 Anion Gap 4 L BUN 15 Creatinine 0.82 Estim Creat Clear Calc 85.14 Est GFR (MDRD) Af Amer 97 Est GFR (MDRD) Non-Af 81 BUN/Creatinine Ratio 18.4 Glucose 93 Calcium 8.5 Total Bilirubin < 0.10 L AST 19 ALT 21 Alkaline Phosphatase 149 H Total Protein 7.8 Albumin 3.5 Globulin 4.3 H Albumin/Globulin Ratio 0.8 L Lipase 101 Serum , Qual NEGATIVE Urine Color Urine Clarity Urine pH Ur Specific [place] Urine Protein Urine Glucose (UA) Urine Ketones Urine Occult Blood Urine Nitrite Urine Bilirubin Urine Urobilinogen Ur Leukocyte Esterase Urine RBC Urine WBC Ur Squamous Epith Cells Urine Bacteria Urine Mucus 07/13/21 07/13/21 17:15 17:40 WBC RBC Hgb Hct MCV MCH MCHC RDW Std Deviation RDW Coeff of Karina Plt Count MPV Immature Gran % (Auto) Neut % (Auto) Lymph % (Auto) [place] % (Auto) Eos % (Auto) Baso % (Auto) Absolute Neuts (auto) Absolute Lymphs (auto) Nucleated RBC % PT 12.7 INR 1.0 Sodium Potassium Chloride Carbon Dioxide Anion Gap BUN Creatinine Estim Creat Clear Calc Est GFR (MDRD) Af Amer Est GFR (MDRD) Non-Af BUN/Creatinine Ratio Glucose Calcium Total Bilirubin AST ALT Alkaline Phosphatase Total Protein Albumin Globulin Albumin/Globulin Ratio Lipase Serum , Qual Urine Color Yellow Urine Clarity Clear Urine pH 6.5 Ur Specific [place] 1.015 Urine Protein 15 H Urine Glucose (UA) Normal Urine Ketones Negative Urine Occult Blood 10 H Urine Nitrite Negative Urine Bilirubin Negative Urine Urobilinogen Normal Ur Leukocyte Esterase Negative Urine RBC 0 SEEN Urine WBC 0-5 SEEN Ur Squamous Epith Cells 0-5 SEEN Urine Bacteria 0 SEEN Urine Mucus 1+ Radiography Diagnostic Testing: Clinical Impression(s) from Imaging Studies Abdomen/Pelvis CT 07/13/21 18:42 Discharge Plan Triage Chief Complaint: Abd Pain ED Provider: Toni Mojica Dx/Rx/DC Orders Instructions: Lisa-Baker Tear Prescriptions: New metoclopramide HCl [Reglan] 5 mg tablet 5 mg PO Q6H Qty: 14 RF: 0 No Action topiramate 200 mg tablet 200 mg PO QHS RF: 0 carbamazepine 200 mg tablet 200 mg PO BID RF: 0 duloxetine 30 mg capsule,delayed release(DR/EC) 90 mg PO QHS RF: 0 aripiprazole [Abilify] 30 mg tablet 30 mg PO DAILY RF: 0 baclofen 10 mg tablet 10 mg PO TID RF: 0 benzonatate 200 mg capsule 200 mg PO TID PRN (Reason: cough) Qty: 180 RF: 2 sumatriptan succinate 50 mg tablet See Rx Instructions PO .COMPLEX Qty: 14 RF: 2 promethazine 25 mg tablet 25 mg PO BID PRN (Reason: nausea and vomiting) Qty: 60 RF: 1 ondansetron 8 mg tablet,disintegrating 8 mg PO Q8H PRN (Reason: nausea and vomiting) Qty: 30 RF: 0 pantoprazole 40 mg tablet,delayed release (DR/EC) 40 mg PO DAILY Qty: 180 RF: 2 dicyclomine 10 mg capsule 10 mg PO TID Qty: 90 RF: 2 trazodone 100 mg tablet 300 mg PO QHS RF: 0 gabapentin 600 mg tablet 600 mg PO TID RF: 0 hydroxyzine pamoate 25 mg capsule 50 mg PO TID PRN (Reason: Anxiety) RF: 0 prazosin 5 MG capsule 5 mg PO QHS RF: 0 Ultram 50 mg tablet 50 mg PO/SL TID RF: 0 sucralfate [Carafate] 100 mg/mL suspension 10 ml PO BID Qty: 200 RF: 0 (DME) Handicap Placard See Rx Instructions .Route .MEDSUPPLY Qty: 1 RF: 0 epinephrine [EpiPen 2-Raymond] 0.3 mg/0.3 mL auto-injector 0.3 mg IM Q5-15M PRN (Reason: anaphylaxis) Qty: 2 RF: 3 levetiracetam [Keppra] 500 mg tablet 500 mg PO BID Qty: 180 RF: 1 Primary Care Provider: Gayle Munoz Referrals: Gayle Munoz MD [Primary Care Provider] - Gary Diaz DO [STAFF PHYSICIAN] - As soon as possible Disposition Disposition: Home, Self Care
[2021-07-13 19:53] VITALS: BP 105/72; PULSE 70
== END 2021-07-13 19:55 | disposition home or self-care (01) ==
PROVIDERS: Emergency Provider Student in an Organized Health Care Education/Training Program; PCP Internal Medicine; Visit Provider Student in an Organized Health Care Education/Training Program
DX: R10.9 Unspecified abdominal pain (principal); K22.6 Gastro-esophageal laceration-hemorrhage syndrome; F17.200 Nicotine dependence, unspecified, uncomplicated; K76.0 Fatty (change of) liver, not elsewhere classified; K21.9 Gastro-esophageal reflux disease without esophagitis; Z79.899 Other long term (current) drug therapy; Z86.73 Personal history of transient ischemic attack (TIA), and cerebral infarction without residual deficits
CPT/HCPCS: 36415; 74177; 80053; 80074; 80076; 81001; 82140; 82164; 82390; 82525; 82728; 82977; 83010; 83036; 83516; 83615; 83690; 84703; 85025; 85610; 85652; 86140; 86225; 86235; 86256; 86703; 96374; 96375; 99284; Q9967; A4216; J2405

== ENCOUNTER 2021-07-18 12:35 | Emergency (ER) | payer MEDICAID, SELFPAY ==
[2021-07-18 12:37] VITALS: BP 108/59; PULSE 91; RESP 18; TEMP 35.9; O2SAT 98; BMI 34.4
--- NOTE | 2021-07-18 13:08 | EDS_ITS ---
HPI HPI - GI History of Present Illness Chief Complaint: Abd Pain Informant: patient Abdominal Pain/Flank Pain Onset: Days (3) Context: Gradual Onset Timing: Continuous Quality: Aching Location: RUQ Current Severity: Severe Maximum Severity: Severe Nausea/Vomiting/Emesis GI Symptom: Positive for Nausea and Vomiting Onset: Yesterday Quality: Positive for Blood streaks Diarrhea/Melena/Hematochezia GI Symptom: Negative for Diarrhea, Melena and Hematochezia Associated Symptoms Associated Symptoms: Negative for Dysuria, Frequency, Hematuria and Urgency Narrative Narrative: Patient states she has had multiple days now of right upper quadrant pain, vomiting, started having streaks of blood yesterday and today. No major bleeding. No melena or bright red blood per rectum. She states she had symptoms like this 3 weeks ago or so, she was seen here and had an ultrasound was unremarkable and later had a CT scan that was unremarkable as well. She follows with Dr. Diaz, she had colonoscopy and EGD but that was before the hematemesis that she had 3 weeks ago, and she is due to follow up for a capsule study. She states she was diagnosed with esophagitis. She denies being on a PPI of any sort. She has had multiple abdominal surgeries in the past, no prior cholecystectomy. She denies any fevers or chills. [facility] Medical History Abdominal pain Acute cystitis Anxiety Arthritis Back pain Back problem Lamar's palsy Blurry vision, left eye Carpal tunnel syndrome Cellulitis Cervical cancer Colon polyp Depression Difficulty chewing Dizziness Elevated blood pressure reading Fall Fatty liver Fibromyalgia Foot pain, left Gastric reflux Gastrointestinal problem GI bleed Headache Hearing problem Hematuria History of IBS Hives Hx of emotional problems Hypokalemia Injury of head and neck Insect bite Interstitial cystitis Irritable bowel syndrome Kidney stones Lipoma Neuropathy Osteoarthritis Post-menopausal Seasonal allergies Seizures Seizures Sludge in gallbladder Smoker Stroke Ulcer Uterine cancer UTI (urinary tract infection) Wheel chair as ambulatory aid Wheelchair dependent Home Medications topiramate 200 mg tablet 200 mg PO QHS tab 08/15/18 [History Last Taken Unknown] duloxetine 30 mg capsule,delayed release 90 mg PO QHS 06/09/19 [History Last Taken Unknown] prazosin 5 mg PO QHS 09/17/19 [History Last Taken Unknown] trazodone 100 mg tablet 300 mg PO QHS tab 10/28/19 [History Last Taken Unknown] carbamazepine 200 mg tablet 200 mg PO BID tab 03/22/20 [History Last Taken 06/22/21] gabapentin 600 mg tablet 600 mg PO TID tab 03/22/20 [History Last Taken 06/22/21] hydroxyzine pamoate 25 mg capsule 50 mg PO TID PRN 03/22/20 [History Last Taken Unknown] Handicap Placard #1 ea 05/03/20 [Rx Last Taken Unknown] Ultram 50 mg PO/SL TID 12/30/20 [History Last Taken Unknown] aripiprazole 30 mg tablet 30 mg PO DAILY tab 01/07/21 [History Last Taken Unknown] epinephrine 0.3 mg/0.3 mL injection, auto-injector 0.3 mg IM Q5-15M PRN #2 ea 02/24/21 [Rx Last Taken Unknown] baclofen 10 mg tablet 10 mg PO TID 03/23/21 [History Last Taken Unknown] levetiracetam 500 mg tablet 500 mg PO BID #180 tab 04/05/21 [Rx Last Taken Unknown] ondansetron 8 mg disintegrating tablet 8 mg PO Q8H PRN #30 tab 04/20/21 [Rx Last Taken Unknown] pantoprazole 40 mg tablet,delayed release 40 mg PO DAILY #180 tab 04/20/21 [Rx Last Taken Unknown] benzonatate 200 mg capsule 200 mg PO TID PRN #180 cap 06/01/21 [Rx Last Taken Unknown] promethazine 25 mg tablet 25 mg PO BID PRN #60 tab 06/01/21 [Rx Last Taken Unknown] sumatriptan succinate 50 mg tablet See Rx Instructions PO .COMPLEX #14 tab 06/01/21 [Rx Last Taken Unknown] sucralfate [Carafate] 10 ml PO BID #200 ml 06/09/21 [Rx Last Taken Unknown] dicyclomine 10 mg capsule 10 mg PO TID #90 cap 07/13/21 [Rx Last Taken Unknown] metoclopramide HCl [Reglan] 5 mg PO Q6H #14 tab 07/13/21 [Rx Last Taken Unknown] metoclopramide HCl 10 mg PO Q6H PRN #20 tab 07/18/21 [Rx Last Taken Unknown] pantoprazole 40 mg PO DAILY #30 tab 07/18/21 [Rx Last Taken Unknown] Allergy/AdvReac Type Severity Reaction Status Date / Time venom-honey bee Allergy Severe severe Verified 07/18/21 12:38 venom-wasp Allergy Severe severe Verified 07/18/21 12:38 ciprofloxacin [From Cipro] Allergy Rash Verified 07/18/21 12:38 erythromycin base Allergy Anaphylaxis Verified 07/18/21 12:38 iodine Allergy Anaphylaxis Verified 07/18/21 12:38 latex Allergy Rash Verified 07/18/21 12:38 metronidazole [From Flagyl] Allergy Anaphylaxis Verified 07/18/21 12:38 naproxen [From Naprosyn] Allergy Anaphylaxis Verified 07/18/21 12:38 Penicillins Allergy Anaphylaxis Verified 07/18/21 12:38 shellfish derived Allergy Anaphylaxis Verified 07/18/21 12:38 adhesive AdvReac Mild BLISTERS Verified 07/18/21 12:38 Family History Father Asthma Grandfather No problems noted. Grandmother Asthma Brother Lung cancer Diabetes Hypertension Grandfather Asthma Grandmother Asthma Hypertension Mother Diabetes Aunt Diabetes Son Seizures Asthma Surgical History History of appendectomy History of bladder repair surgery History of carpal tunnel surgery of right wrist History of colonoscopy History of esophagogastroduodenoscopy (EGD) History of hysterectomy History of orthopedic surgery History of spinal surgery Hx of repair of right rotator cuff Hx of surgical procedure S/P left knee surgery S/P umbilical hernia repair, follow-up exam Status post left foot surgery Social History Smoking Status: Light Smoker (<10/day) alcohol intake: never substance use type: does not use what type of physical activity do you participate in: none ROS ROS ED Constitutional Constitutional ED: Denies chills or fever(s) Eyes Eyes: Denies change in vision or diplopia ENT ENT ED: Denies rhinorrhea or sore throat Cardiovascular Cardiovascular: Denies chest pain or palpitations Respiratory/Chest Respiratory/Chest: Denies cough or dyspnea Gastrointestinal Gastrointestinal: Reports as per HPI, abdominal pain, hematemesis, nausea and vomiting; Denies diarrhea, hematochezia or melena Genitourinary Genitourinary ED: Denies dysuria or hematuria Musculoskeletal Musculoskeletal: Reports back pain; Denies neck pain Integumentary Denies abscess or rash Neurologic Neurologic: Denies headache(s), paresthesias or weakness Psychiatric Psychiatric: Denies anxiety or suicidal thoughts EXAM Physical Exam Const Vital Signs: 07/18/21 12:37 07/18/21 14:41 Temperature 96.7 F L Temperature Source Temporal Pulse Rate 91 Respiratory Rate 18 18 Blood Pressure 108/59 L Blood Pressure Mean 75 Pulse Ox 98 99 Oxygen Delivery Method Room Air Room Air Positive well nourished and well developed General Appearance ED: well developed and NAD HEENT Reports moist mucous membranes normocephalic and atraumatic Eyes PERRL and EOMs intact bilaterally Neck full ROM and supple Resp normal respiratory effort and clear to auscultation bilaterally Cardio regular rate, regular rhythm and no murmurs GI non-distended GI Narrative: Right upper quadrant tenderness with voluntary guarding, no rebound tenderness. No other areas of tenderness. No pulsatile mass. Auscultation: normoactive bowel sounds Palpation: soft Back/Spine no CVA tenderness General Back: other FROM Extremity normal to inspection General Extremety ED: Negative for edema, pulses abnormal or tenderness General Extremity: Negative for edema or pulses abnormal Neuro oriented x3, CN's II-XII intact bilaterally and no sensory deficits noted Sensorium / Orientation: awake and alert Motor Exam: strength 5/5 throughout Psych Mood & Affect: anxious Skin no rashes or lesions noted and no wounds MDM MDM MDM Narrative Medical decision making narrative: I repeated the patient's labs including liver enzymes and lipase, aside from a slightly elevated alkaline phosphatase which can be elevated simply due to vomiting, the rest of her work-up is unremarkable with a white blood count of 7.7. After Zofran and morphine she was feeling a lot better, she requested another dose of analgesic which was given. Reviewing her recent records, the normal CT scan was done at the ED visit where she had the identical symptoms. Therefore I do not think that needs to be repeated, nor the ultrasound of her gallbladder which was normal showing no stones. Since her labs are normal after 3 days of this, I do not think she has acute cholecystitis in context. Chronic cholecystitis is in the differential diagnosis, and as I discussed with her, if there is no GI cause of this, she may need a future HIDA scan which does not need to be performed emergently. I discussed this with her, she states she has a HIDA scan scheduled for next week. She is comfortable going home, requesting a prescription for more Reglan which I think is reasonable, advised not to use it simultaneously with Phenergan, as well as pantoprazole, which she takes but has been out of for some time. Lab Data Attestation: I reviewed the patient's lab results. Labs: Laboratory Results - last 24 hr 07/18/21 07/18/21 13:15 13:15 WBC 7.7 RBC 3.65 L Hgb 12.1 Hct 37.1 MCV 101.6 H MCH 33.2 H MCHC 32.6 RDW Std Deviation 47.6 H RDW Coeff of Kraina 12.7 Plt Count 169 MPV 10.9 Immature Gran % (Auto) 0.500 Neut % (Auto) 66.6 Lymph % (Auto) 24.9 [place] % (Auto) 4.3 Eos % (Auto) 3.4 Baso % (Auto) 0.3 Absolute Neuts (auto) 5.1 Absolute Lymphs (auto) 1.91 Nucleated RBC % 0 Sodium 140 Potassium 3.5 Chloride 112 H Carbon Dioxide 25.0 Anion Gap 3 L BUN 13 Creatinine 0.70 Estim Creat Clear Calc 99.73 Est GFR (MDRD) Af Amer 117 Est GFR (MDRD) Non-Af 96 BUN/Creatinine Ratio 18.6 Glucose 89 Calcium 8.4 L Total Bilirubin 0.20 AST 10 L ALT 18 Alkaline Phosphatase 142 H Total Protein 7.4 Albumin 3.4 Globulin 4.0 Albumin/Globulin Ratio 0.8 L Lipase 95 Discharge Plan Triage Chief Complaint: Abd Pain ED Provider: Iain Marcelo Dx/Rx/DC Orders Clinical Impression: Right upper quadrant abdominal pain, Recurrent vomiting, Lisa-Baker tear Instructions: Lisa-Baker Tear Prescriptions: New pantoprazole 40 mg tablet,delayed release (DR/EC) 40 mg PO DAILY Qty: 30 RF: 0 metoclopramide HCl 10 mg tablet 10 mg PO Q6H PRN (Reason: nausea and vomiting) Qty: 20 RF: 0 No Action topiramate 200 mg tablet 200 mg PO QHS RF: 0 carbamazepine 200 mg tablet 200 mg PO BID RF: 0 duloxetine 30 mg capsule,delayed release(DR/EC) 90 mg PO QHS RF: 0 aripiprazole [Abilify] 30 mg tablet 30 mg PO DAILY RF: 0 baclofen 10 mg tablet 10 mg PO TID RF: 0 benzonatate 200 mg capsule 200 mg PO TID PRN (Reason: cough) Qty: 180 RF: 2 sumatriptan succinate 50 mg tablet See Rx Instructions PO .COMPLEX Qty: 14 RF: 2 promethazine 25 mg tablet 25 mg PO BID PRN (Reason: nausea and vomiting) Qty: 60 RF: 1 ondansetron 8 mg tablet,disintegrating 8 mg PO Q8H PRN (Reason: nausea and vomiting) Qty: 30 RF: 0 pantoprazole 40 mg tablet,delayed release (DR/EC) 40 mg PO DAILY Qty: 180 RF: 2 dicyclomine 10 mg capsule 10 mg PO TID Qty: 90 RF: 2 trazodone 100 mg tablet 300 mg PO QHS RF: 0 gabapentin 600 mg tablet 600 mg PO TID RF: 0 hydroxyzine pamoate 25 mg capsule 50 mg PO TID PRN (Reason: Anxiety) RF: 0 prazosin 5 MG capsule 5 mg PO QHS RF: 0 Ultram 50 mg tablet 50 mg PO/SL TID RF: 0 sucralfate [Carafate] 100 mg/mL suspension 10 ml PO BID Qty: 200 RF: 0 metoclopramide HCl [Reglan] 5 mg tablet 5 mg PO Q6H Qty: 14 RF: 0 (DME) Handicap Placard See Rx Instructions .Route .MEDSUPPLY Qty: 1 RF: 0 epinephrine [EpiPen 2-Raymond] 0.3 mg/0.3 mL auto-injector 0.3 mg IM Q5-15M PRN (Reason: anaphylaxis) Qty: 2 RF: 3 levetiracetam [Keppra] 500 mg tablet 500 mg PO BID Qty: 180 RF: 1 Primary Care Provider: Gayle Munoz Referrals: Gayle Munoz MD [Primary Care Provider] - Gary Diaz DO [STAFF PHYSICIAN] - Keep [place] appointment Disposition Disposition: Home, Self Care
[2021-07-18] MEDS: Ondansetron 4 MG/2 ML Vial IV (13:16)
[2021-07-18] MEDS: Morphine 4 MG/ML Syringe IV ×2 (13:16→14:47)
[2021-07-18 13:24] LABS: Absolute Lymphocyte Count 1.91 X10^3/uL (0.83-4.51); Absolute Neutrophil Count 5.1 X10^3/uL (2.0-7.7); Basophil# 0.02 X10^3/uL; Basophil% 0.3 % (0-1); Eosinophil# 0.26 X10^3/uL; Eosinophils% 3.4 % (0-5); Hematocrit 37.1 % (37-47); Hemoglobin 12.1 g/dL (12.0-15.0); Lymphocyte # 1.91 X10^3/ul (0.83-4.51); Lymphocyte % 24.9 % (19-41); Mean Corp Hgb Conc 32.6 g/dL (32-36); Mean Corpuscular Hgb 33.2 pg (27.0-32.0); Mean Corpuscular Volume 101.6 fL (81-99); Mean Platelet Vol. 10.9 fl (6.2-12.0); Monocyte# 0.33 X10^3/uL; Monocyte% 4.3 % (0-10); NRBC Flagged by Analyzer 0 % (0-5); Neutrophil # 5.12 X10^3/uL (2.7-7.7); Neutrophil % 66.6 % (47-70); Platelet Count 169 K/mm3 (150-450); RBC Distribution Width CV 12.7 % (11.6-14.6); RBC Distribution Width SD 47.6 fl (35.1-43.9); Red Blood Count 3.65 M/mm3 (4.2-5.4); White Blood Count 7.7 K/mm3 (4.4-11.0)
[2021-07-18 13:40] LABS: ALB/GLOB Ratio 0.8 RATIO (0.9-2.4); AST(SGOT) 10 U/L (15-37); Alanine Aminotransfer ALT/SGPT 18 U/L (13-56); Albumin, Serum 3.4 g/dL (3.2-5.0); Alkaline Phosphatase 142 U/L (45-117); Anion Gap 3 (5-15); BUN 13 mg/dL (7-18); BUN/Creat Ratio 18.6 RATIO (10-20); Calcium,Total 8.4 mg/dL (8.5-10.1); Chloride 112 mmol/L (98-107); EST Glomerular Filtration Rate 96 mL/min (>60); Est Glom Filt Rate - Afr Amer 117 mL/min (>60); Estimated Creatinine Clearance 99.73 ml/min; Glucose 89 mg/dL (74-106); Lipase 95 U/L (73-393); Potassium 3.5 mmol/L (3.5-5.1); Protein, Total 7.4 g/dL (6.4-8.2); Sodium Level 140 mmol/L (136-145)
[2021-07-18 14:41] VITALS: RESP 18; O2SAT 99
[2021-07-18] MEDS: Metoclopramide 10 MG/10 ML UDC PO (15:28)
[2021-07-18] MEDS: Pantoprazole Sodium 40 MG Tablet PO (15:28)
[2021-07-18 15:31] VITALS: BP 140/79; PULSE 62; RESP 15; O2SAT 98
== END 2021-07-18 15:33 | disposition home or self-care (01) ==
PROVIDERS: Emergency Provider Emergency Medicine; PCP Internal Medicine; Visit Provider Emergency Medicine
DX: R10.11 Right upper quadrant pain (principal); R11.10 Vomiting, unspecified; K22.6 Gastro-esophageal laceration-hemorrhage syndrome; F17.200 Nicotine dependence, unspecified, uncomplicated; K76.0 Fatty (change of) liver, not elsewhere classified; Z86.73 Personal history of transient ischemic attack (TIA), and cerebral infarction without residual deficits
CPT/HCPCS: 80053; 83690; 85025; 96374; 96375; 96376; 99284; J7040; A4216; J2405

== ENCOUNTER 2021-07-19 08:13 | Outpatient (CLI) | payer MEDICAID, SELFPAY ==
--- NOTE | 2021-07-19 08:16 | US_ITS ---
STUDY: ABDOMINAL ULTRASOUND - ELASTOGRAPHY REASON FOR VISIT: Female, 45 years old. Fatty infiltration of the liver. TECHNIQUE: Liver stiffness measurements were obtained on a [employer] RS 85 ultrasound machine using a CA 1-7 probe following the SRU guidelines. 3 measurements were obtained using a 2-D-SWE method. The IQR/M was 15% suggesting a quality data set. TECHNICAL QUALITY: Adequate. COMPARISON: Comparison is made with prior examination of 06/16/2021. FINDINGS: Liver: Fatty infiltration of the liver. Median liver stiffness measured 3.7 kPa. US/Elastography Parenchyma/Organ IMPRESSION: Liver stiffness measures 3.7 kPa compatible with FO (Normal) Metavir score. Electronically Signed: Amado Bernardo MD at 12:21 EDT ,
== END 2021-07-19 23:59 | disposition home or self-care (01) ==
LOC: US 08:14
PROVIDERS: PCP Internal Medicine; Referring Provider Nurse Practitioner Adult Health; Visit Provider Nurse Practitioner Adult Health
DX: K76.0 Fatty (change of) liver, not elsewhere classified (principal)
CPT/HCPCS: 76981

== ENCOUNTER 2021-07-25 09:17 | Outpatient (CLI) | payer MEDICAID, SELFPAY ==
--- NOTE | 2021-07-25 09:31 | NM_ITS ---
EXAM: NM HEPATOBILIARY SCAN CLINICAL INDICATION: RUQ, vomiting, diarrhea, sludge GB TECHNIQUE: Technetium 99m choletec was intravenously administered and static images were obtained. After 1 hour cholecystokinin was administered and ejection fraction was calculated. This report was created using [employer] report Factual technology. COMPARISON: None. FINDINGS: LIVER: Unremarkable. There is homogeneous uptake and excretion of the radiopharmaceutical by the liver. There is no abnormal hyperemia along the gallbladder fossa. BILE DUCTS: Unremarkable. Normal radiopharmaceutical activity. GALLBLADDER: Unremarkable. Normal radiopharmaceutical activity. The gallbladder was visualized within 45 minutes. Following the administration of cholecystokinin the calculated ejection fraction is 70% after 30 minutes. STOMACH AND BOWEL: Unremarkable. Normal radiopharmaceutical activity. NM/Hepatobilliary Img w/Pharm Int IMPRESSION: 1. Normal hepatobiliary scan. 2. Normal ejection fraction. Electronically Signed: Bao Méndez MD at 2:45 EDT ,
== END 2021-07-25 23:59 | disposition home or self-care (01) ==
LOC: NM 09:18
PROVIDERS: PCP Internal Medicine; Visit Provider Nurse Practitioner Adult Health
DX: K82.8 Other specified diseases of gallbladder (principal); R10.13 Epigastric pain
CPT/HCPCS: 78227; A9537

== ENCOUNTER 2021-07-31 17:10 | Emergency (ER) | payer MEDICAID, SELFPAY ==
[2021-07-31 17:11] VITALS: BP 126/73; PULSE 93; RESP 16; TEMP 36.8; O2SAT 96; BMI 34.4
[2021-07-31] MEDS: Ondansetron 4 MG/2 ML Vial IV (18:07)
[2021-07-31] MEDS: Mag Hydrox/Al Hydrox/Simeth 30 ML UDC PO (18:07)
[2021-07-31 18:17] LABS: Absolute Lymphocyte Count 1.87 X10^3/uL (0.83-4.51); Absolute Neutrophil Count 4.7 X10^3/uL (2.0-7.7); Basophil# 0.04 X10^3/uL; Basophil% 0.6 % (0-1); Eosinophil# 0.22 X10^3/uL; Eosinophils% 3.1 % (0-5); Hematocrit 37.2 % (37-47); Hemoglobin 12.2 g/dL (12.0-15.0); Lymphocyte # 1.87 X10^3/ul (0.83-4.51); Mean Corp Hgb Conc 32.8 g/dL (32-36); Mean Corpuscular Hgb 33.3 pg (27.0-32.0); Mean Corpuscular Volume 101.6 fL (81-99); Mean Platelet Vol. 11.8 fl (6.2-12.0); Monocyte# 0.39 X10^3/uL; Monocyte% 5.4 % (0-10); NRBC Flagged by Analyzer 0 % (0-5); Neutrophil # 4.65 X10^3/uL (2.7-7.7); Neutrophil % 64.6 % (47-70); Platelet Count 167 K/mm3 (150-450); RBC Distribution Width CV 12.6 % (11.6-14.6); RBC Distribution Width SD 47.5 fl (35.1-43.9); Red Blood Count 3.66 M/mm3 (4.2-5.4); White Blood Count 7.2 K/mm3 (4.4-11.0)
[2021-07-31 18:49] LABS: ALB/GLOB Ratio 0.9 RATIO (0.9-2.4); AST(SGOT) 15 U/L (15-37); Alanine Aminotransfer ALT/SGPT 17 U/L (13-56); Albumin, Serum 3.4 g/dL (3.2-5.0); Alkaline Phosphatase 135 U/L (45-117); Anion Gap 5 (5-15); BUN 12 mg/dL (7-18); BUN/Creat Ratio 16.1 RATIO (10-20); Calcium,Total 8.5 mg/dL (8.5-10.1); Chloride 111 mmol/L (98-107); Creatinine, Serum 0.74 mg/dL (0.55-1.02); EST Glomerular Filtration Rate 90 mL/min (>60); Est Glom Filt Rate - Afr Amer 109 mL/min (>60); Estimated Creatinine Clearance 94.34 ml/min; Globulin 3.8 g/dL (2.2-4.2); Glucose 88 mg/dL (74-106); Lipase 90 U/L (73-393); Potassium 3.5 mmol/L (3.5-5.1); Protein, Total 7.2 g/dL (6.4-8.2); Sodium Level 140 mmol/L (136-145)
[2021-07-31] MEDS: Morphine 4 MG/ML Syringe IV (19:09)
--- NOTE | 2021-07-31 19:09 | ED.VIS.GI ---
HPI HPI - GI History of Present Illness Chief Complaint: GI Bleed Informant: patient Abdominal Pain/Flank Pain Onset: Yesterday Context: Gradual Onset Timing: Continuous and Waxes and wanes Quality: Aching Location: Epigastric and RUQ Current Severity: Moderate Maximum Severity: Moderate Worsened by: Food Relieved by: Nothing Nausea/Vomiting/Emesis GI Symptom: Positive for Nausea and Vomiting Onset: Yesterday Quality: Positive for Blood streaks (Started today with several clots) Severity: Severe (Vomiting) Diarrhea/Melena/Hematochezia GI Symptom: Negative for Diarrhea, Melena and Hematochezia Associated Symptoms Associated Symptoms: Negative for Dysuria, Frequency and Hematuria Narrative Narrative: Patient presents with an episode of recurrent upper abdominal pain that is more on the right and epigastrium, radiating into her right mid back, and nausea/vomiting, this started yesterday and today it started containing blood with some clots, and she also developed some substernal burning after the vomiting. She has had this before. She is on no blood thinners. She has had ultrasound of her gallbladder showing sludge, followed by a HIDA scan and she has yet to receive the results of that and is still due to follow-up. She did feel lightheaded earlier, but had no syncope. [facility] Medical History Abdominal pain Acute cystitis Anxiety Arthritis Back pain Back problem Lamar's palsy Blurry vision, left eye Carpal tunnel syndrome Cellulitis Cervical cancer Colon polyp Depression Difficulty chewing Dizziness Elevated blood pressure reading Fall Fatty liver Fibromyalgia Foot pain, left Gastric reflux Gastrointestinal problem GI bleed Headache Hearing problem Hematuria History of IBS Hives Hx of emotional problems Hypokalemia Injury of head and neck Insect bite Interstitial cystitis Irritable bowel syndrome Kidney stones Lipoma Neuropathy Osteoarthritis Positive P-ANCA titer Post-menopausal Seasonal allergies Seizures Seizures Sludge in gallbladder Smoker Stroke Ulcer Uterine cancer UTI (urinary tract infection) Wheel chair as ambulatory aid Wheelchair dependent Home Medications topiramate 200 mg tablet 200 mg PO QHS tab 08/15/18 [History Last Taken Unknown] duloxetine 30 mg capsule,delayed release 90 mg PO QHS 06/09/19 [History Last Taken Unknown] prazosin 5 mg PO QHS 09/17/19 [History Last Taken Unknown] trazodone 100 mg tablet 300 mg PO QHS tab 10/28/19 [History Last Taken Unknown] carbamazepine 200 mg tablet 200 mg PO BID tab 03/22/20 [History Last Taken 06/22/21] gabapentin 600 mg tablet 600 mg PO TID tab 03/22/20 [History Last Taken 06/22/21] hydroxyzine pamoate 25 mg capsule 50 mg PO TID PRN 03/22/20 [History Last Taken Unknown] Handicap Placard #1 ea 05/03/20 [Rx Last Taken Unknown] Ultram 50 mg PO/SL TID 12/30/20 [History Last Taken Unknown] aripiprazole 30 mg tablet 30 mg PO DAILY tab 01/07/21 [History Last Taken Unknown] epinephrine 0.3 mg/0.3 mL injection, auto-injector 0.3 mg IM Q5-15M PRN #2 ea 02/24/21 [Rx Last Taken Unknown] baclofen 10 mg tablet 10 mg PO TID 03/23/21 [History Last Taken Unknown] levetiracetam 500 mg tablet 500 mg PO BID #180 tab 04/05/21 [Rx Last Taken Unknown] ondansetron 8 mg disintegrating tablet 8 mg PO Q8H PRN #30 tab 04/20/21 [Rx Last Taken Unknown] pantoprazole 40 mg tablet,delayed release 40 mg PO DAILY #180 tab 04/20/21 [Rx Last Taken Unknown] benzonatate 200 mg capsule 200 mg PO TID PRN #180 cap 06/01/21 [Rx Last Taken Unknown] promethazine 25 mg tablet 25 mg PO BID PRN #60 tab 06/01/21 [Rx Last Taken Unknown] sumatriptan succinate 50 mg tablet See Rx Instructions PO .COMPLEX #14 tab 06/01/21 [Rx Last Taken Unknown] sucralfate [Carafate] 10 ml PO BID #200 ml 06/09/21 [Rx Last Taken Unknown] dicyclomine 10 mg capsule 10 mg PO TID #90 cap 07/13/21 [Rx Last Taken Unknown] metoclopramide HCl [Reglan] 5 mg PO Q6H #14 tab 07/13/21 [Rx Last Taken Unknown] metoclopramide HCl 10 mg PO Q6H PRN #20 tab 07/18/21 [Rx Last Taken Unknown] pantoprazole 40 mg PO DAILY #30 tab 07/18/21 [Rx Last Taken Unknown] ondansetron 8 mg PO Q8H PRN PRN #20 tab 07/31/21 [Rx Last Taken Unknown] Allergy/AdvReac Type Severity Reaction Status Date / Time venom-honey bee Allergy Severe severe Verified 07/31/21 17:13 venom-wasp Allergy Severe severe Verified 07/31/21 17:13 ciprofloxacin [From Cipro] Allergy Rash Verified 07/31/21 17:13 erythromycin base Allergy Anaphylaxis Verified 07/31/21 17:13 iodine Allergy Anaphylaxis Verified 07/31/21 17:13 latex Allergy Rash Verified 07/31/21 17:13 metronidazole [From Flagyl] Allergy Anaphylaxis Verified 07/31/21 17:13 naproxen [From Naprosyn] Allergy Anaphylaxis Verified 07/31/21 17:13 Penicillins Allergy Anaphylaxis Verified 07/31/21 17:13 shellfish derived Allergy Anaphylaxis Verified 07/31/21 17:13 adhesive AdvReac Mild BLISTERS Verified 07/31/21 17:13 Family History Father Asthma Grandfather No problems noted. Grandmother Asthma Brother Lung cancer Diabetes Hypertension Grandfather Asthma Grandmother Asthma Hypertension Mother Diabetes Aunt Diabetes Son Seizures Asthma Surgical History History of appendectomy History of bladder repair surgery History of carpal tunnel surgery of right wrist History of colonoscopy History of esophagogastroduodenoscopy (EGD) History of hysterectomy History of orthopedic surgery History of spinal surgery Hx of repair of right rotator cuff Hx of surgical procedure S/P left knee surgery S/P umbilical hernia repair, follow-up exam Status post left foot surgery Social History Smoking Status: Light Smoker (<10/day) alcohol intake: never substance use type: does not use what type of physical activity do you participate in: none ROS ROS ED Constitutional Constitutional ED: Denies chills or fever(s) Eyes Eyes: Denies change in vision or diplopia ENT ENT ED: Denies rhinorrhea or sore throat Cardiovascular Cardiovascular: Reports chest pain; Denies palpitations Respiratory/Chest Respiratory/Chest: Denies cough or dyspnea Gastrointestinal Gastrointestinal: Reports abdominal pain, hematemesis, nausea and vomiting; Denies diarrhea or hematochezia Genitourinary Genitourinary ED: Denies dysuria or hematuria Musculoskeletal Musculoskeletal: Reports as per HPI and back pain; Denies neck pain Integumentary Denies abscess or rash Neurologic Neurologic: Denies headache(s), paresthesias or weakness Psychiatric Psychiatric: Denies anxiety or suicidal thoughts EXAM Physical Exam Const Vital Signs: 07/31/21 17:11 07/31/21 19:11 Temperature 98.2 F Temperature Source Temporal Pulse Rate 93 84 Respiratory Rate 16 16 Blood Pressure 126/73 H Blood Pressure Mean 90 Pulse Ox 96 Oxygen Delivery Method Room Air Positive well nourished and well developed General Appearance ED: well developed and NAD HEENT Reports moist mucous membranes normocephalic and atraumatic Eyes PERRL and EOMs intact bilaterally Neck full ROM and supple Resp normal respiratory effort and clear to auscultation bilaterally Cardio regular rate, regular rhythm and no murmurs GI non-distended GI Narrative: Tender right upper quadrant and epigastrium. No guarding or rebound tenderness, the rest of the exam is unremarkable Auscultation: normoactive bowel sounds Palpation: soft Back/Spine no CVA tenderness General Back: other FROM Extremity normal to inspection General Extremety ED: Negative for edema, pulses abnormal or tenderness General Extremity: Negative for edema or pulses abnormal Neuro oriented x3, CN's II-XII intact bilaterally and no sensory deficits noted Sensorium / Orientation: awake and alert Motor Exam: strength 5/5 throughout Skin no rashes or lesions noted and no wounds MDM MDM MDM Narrative Medical decision making narrative: Normal labs including liver enzymes are unremarkable except for slightly elevated alkaline phosphatase, which can be simply due to vomiting. She was vomiting a lot before the blood started, consistent with a Lisa-Baker tear. She has not been scoped for this in the past. She did have a CT earlier this month, that showed nothing acute, followed by the HIDA scan, the results of it are normal. I reviewed this with her. This makes biliary colic but less likely. Plus her labs do not represent acute cholecystitis. There is no suggestion of significant or life-threatening upper GI bleeding given her stable hemoglobin and lack of an elevated BUN, and lack of any hematemesis here in the emergency department. She was treated with IV PPI, her symptoms were controlled, and she was given a GI cocktail which helped her chest burning from the vomiting. She felt much better and wanted to go home, requesting nausea medication she already has PPI to continue taking at home. She is to follow-up with her PCP as soon as possible, she may need to be referred to GI for endoscopy as the next step in her diagnostic pathway for this pain. Lab Data Attestation: I reviewed the patient's lab results. Labs: Laboratory Results - last 24 hr 07/31/21 07/31/21 18:10 18:10 WBC 7.2 RBC 3.66 L Hgb 12.2 Hct 37.2 MCV 101.6 H MCH 33.3 H MCHC 32.8 RDW Std Deviation 47.5 H RDW Coeff of Karina 12.6 Plt Count 167 MPV 11.8 Immature Gran % (Auto) 0.300 Neut % (Auto) 64.6 Lymph % (Auto) 26.0 Barren % (Auto) 5.4 Eos % (Auto) 3.1 Baso % (Auto) 0.6 Absolute Neuts (auto) 4.7 Absolute Lymphs (auto) 1.87 Nucleated RBC % 0 Sodium 140 Potassium 3.5 Chloride 111 H Carbon Dioxide 24.0 Anion Gap 5 BUN 12 Creatinine 0.74 Estim Creat Clear Calc 94.34 Est GFR (MDRD) Af Amer 109 Est GFR (MDRD) Non-Af 90 BUN/Creatinine Ratio 16.1 Glucose 88 Calcium 8.5 Total Bilirubin 0.10 L AST 15 ALT 17 Alkaline Phosphatase 135 H Total Protein 7.2 Albumin 3.4 Globulin 3.8 Albumin/Globulin Ratio 0.9 Lipase 90 Discharge Plan Triage Chief Complaint: GI Bleed ED Provider: Iain Marcelo Dx/Rx/DC Orders Clinical Impression: Acute upper abdominal pain, Lisa-Baker tear, Vomiting Prescriptions: New ondansetron [ondansetron] 4 MG tablet 8 mg PO Q8H PRN PRN (Reason: Nausea) Qty: 20 RF: 0 No Action topiramate 200 mg tablet 200 mg PO QHS RF: 0 carbamazepine 200 mg tablet 200 mg PO BID RF: 0 duloxetine 30 mg capsule,delayed release(DR/EC) 90 mg PO QHS RF: 0 aripiprazole [Abilify] 30 mg tablet 30 mg PO DAILY RF: 0 baclofen 10 mg tablet 10 mg PO TID RF: 0 benzonatate 200 mg capsule 200 mg PO TID PRN (Reason: cough) Qty: 180 RF: 2 sumatriptan succinate 50 mg tablet See Rx Instructions PO .COMPLEX Qty: 14 RF: 2 promethazine 25 mg tablet 25 mg PO BID PRN (Reason: nausea and vomiting) Qty: 60 RF: 1 ondansetron 8 mg tablet,disintegrating 8 mg PO Q8H PRN (Reason: nausea and vomiting) Qty: 30 RF: 0 pantoprazole 40 mg tablet,delayed release (DR/EC) 40 mg PO DAILY Qty: 180 RF: 2 dicyclomine 10 mg capsule 10 mg PO TID Qty: 90 RF: 2 trazodone 100 mg tablet 300 mg PO QHS RF: 0 gabapentin 600 mg tablet 600 mg PO TID RF: 0 hydroxyzine pamoate 25 mg capsule 50 mg PO TID PRN (Reason: Anxiety) RF: 0 prazosin 5 MG capsule 5 mg PO QHS RF: 0 Ultram 50 mg tablet 50 mg PO/SL TID RF: 0 sucralfate [Carafate] 100 mg/mL suspension 10 ml PO BID Qty: 200 RF: 0 metoclopramide HCl [Reglan] 5 mg tablet 5 mg PO Q6H Qty: 14 RF: 0 pantoprazole 40 mg tablet,delayed release (DR/EC) 40 mg PO DAILY Qty: 30 RF: 0 metoclopramide HCl 10 mg tablet 10 mg PO Q6H PRN (Reason: nausea and vomiting) Qty: 20 RF: 0 (DME) Handicap Placard See Rx Instructions .Route .MEDSUPPLY Qty: 1 RF: 0 epinephrine [EpiPen 2-Raymond] 0.3 mg/0.3 mL auto-injector 0.3 mg IM Q5-15M PRN (Reason: anaphylaxis) Qty: 2 RF: 3 levetiracetam [Keppra] 500 mg tablet 500 mg PO BID Qty: 180 RF: 1 Primary Care Provider: Gayle Munoz Referrals: Gayle Munoz MD [Primary Care Provider] - As soon as possible Disposition Disposition: Home, Self Care
[2021-07-31 19:11] VITALS: PULSE 84; RESP 16
== END 2021-07-31 19:47 | disposition home or self-care (01) ==
PROVIDERS: Emergency Provider Emergency Medicine; PCP Internal Medicine; Visit Provider Emergency Medicine
DX: R10.10 Upper abdominal pain, unspecified (principal); K22.6 Gastro-esophageal laceration-hemorrhage syndrome; F17.200 Nicotine dependence, unspecified, uncomplicated; R11.10 Vomiting, unspecified; Z86.73 Personal history of transient ischemic attack (TIA), and cerebral infarction without residual deficits
CPT/HCPCS: 80053; 83690; 85025; 96365; 96366; 96375; 99284; J7040; A4216; J2405; J3490

== ENCOUNTER → 2021-08-11 | Outpatient (CLI) | payer MEDICAID, SELFPAY ==
[2021-08-11 14:23] LABS: Amylase 42 U/L (25-115); CPK Total, Creatine Kinase 109 U/L (26-192)
[2021-08-15 16:08] LABS: ANTINUCLEAR ANTIBODIES DIRECT Positive (Negative); Anti-Centromere B Ab <0.2 AI (0.0-0.9); Anti-Chromatin <0.2 AI (0.0-0.9); Anti-Jo <0.2 AI (0.0-0.9); Anti-Scleroderma-70 AB 3.2 AI (0.0-0.9); RNP Ab <0.2 AI (0.0-0.9); SJOGREN'S Anti-SS-A test < 0.2 AI (0.0-0.9); SJOGREN'S Anti-SS-B test < 0.2 AI (0.0-0.9); Smith Ab <0.2 AI (0.0-0.9)
[2021-08-15 17:15] LABS: Anti-dsDNA Ab 6 IU/mL (0-9)
[2021-08-16 16:53] LABS: Cytoplasmic Ab (C-ANCA) <1:20 titer (Neg:<1:20); Perinuclear Ab (P-ANCA) <1:20 titer (Neg:<1:20)
[2021-08-21 03:07] LABS: Dopamine, Pl <30 pg/mL (0-48); Epinephrine, Pl 21 pg/mL (0-62); IgG, Quant 1396 mg/dL (586-1602); Immunoglobulin A 168 mg/dL (87-352); Immunoglobulin E 108 IU/mL (6-495); Immunoglobulin G, Subclass 1 963 mg/dL (248-810); Immunoglobulin G, Subclass 2 174 mg/dL (130-555); Immunoglobulin G, Subclass 3 55 mg/dL (15-102); Immunoglobulin G, Subclass 4 35 mg/dL (2-96); Immunoglobulin M 142 mg/dL (26-217); Norepinephrine, Pl 264 pg/mL (0-874)
[2021-08-21 08:22] LABS: Gastrin, Serum 38 pg/mL (0-115)
== END | disposition home or self-care (01) ==
PROVIDERS: PCP Internal Medicine; Referring Provider Nurse Practitioner Adult Health; Visit Provider Nurse Practitioner Adult Health
DX: R76.8 Other specified abnormal immunological findings in serum (principal); R10.13 Epigastric pain; K92.0 Hematemesis
CPT/HCPCS: 36415; 82150; 82384; 82550; 82784; 82785; 82787; 82941; 86038; 86225; 86235; 86256

== ENCOUNTER 2021-08-12 07:20 | Emergency (ER) | payer MEDICAID, SELFPAY ==
[2021-08-12 07:21] VITALS: BP 133/71; PULSE 105; RESP 16; TEMP 35.4; O2SAT 100; BMI 34.4
--- NOTE | 2021-08-12 07:40 | EDS_ITS ---
HPI HPI - GI History of Present Illness Chief Complaint: Abd Pain Informant: patient Abdominal Pain/Flank Pain Onset: Days (3) Context: Gradual Onset Timing: Continuous Quality: Aching Location: RUQ (w/o radiation) Current Severity: Moderate Maximum Severity: Moderate Worsened by: - (vomiting) Relieved by: Food Nausea/Vomiting/Emesis GI Symptom: Positive for Nausea and Vomiting Onset: Days (3) Quality: Positive for Blood streaks (3d ago but not since) Severity: Severe Diarrhea/Melena/Hematochezia GI Symptom: Negative for Diarrhea, Melena and Hematochezia Associated Symptoms Associated Symptoms: Negative for Dysuria, Frequency and Hematuria Narrative Narrative: Patient with a history of chronically recurring right upper quadrant pain and vomiting, patient states she is having another episode of it for the last 3 days. She vomited some amount of blood 3 days ago but none since, and she has been vomiting a lot to the point where she is urinating less but she is still urinating. She states these are the exact same symptoms that she has had multiple times in the past, and that she has been seen here in the emergency department multiple x4. She had an EGD recently as well as colonoscopy, multiple biopsies were obtained. She has reflux esophagitis of distal esophagus , and she states she had a capsule study that showed multiple tears. She actually saw GI yesterday. According to their note, she is being referred for pain/symptom management, and they were questioning whether some of this is psychogenic or anxiety related. She has had a negative gallbladder ultrasound and HIDA scan in the last couple months. She is here for symptom control. She does admit to having a syncopal episode last night after vomiting very hard. She did not fall or injure herself and she woke up without any other new symptoms. She denies any chest pain, shortness of breath or other prodromal symptoms other than lightheadedness. [facility] Medical History Abdominal pain Acute cystitis Anxiety Arthritis Back pain Back problem Lamar's palsy Blurry vision, left eye Carpal tunnel syndrome Cellulitis Cervical cancer Colon polyp Depression Difficulty chewing Dizziness Elevated antinuclear antibody (PAT) level Elevated blood pressure reading Fall Fatty liver Fibromyalgia Foot pain, left Gastric reflux Gastrointestinal problem GI bleed Headache Hearing problem Hematuria History of IBS Hives Hx of emotional problems Hypokalemia Injury of head and neck Insect bite Interstitial cystitis Irritable bowel syndrome Kidney stones Lipoma Neuropathy Osteoarthritis Positive P-ANCA titer Post-menopausal Seasonal allergies Seizures Seizures Sludge in gallbladder Smoker Stroke Ulcer Uterine cancer UTI (urinary tract infection) Wheel chair as ambulatory aid Wheelchair dependent Home Medications topiramate 200 mg tablet 200 mg PO QHS tab 08/15/18 [History Last Taken Unknown] duloxetine 30 mg capsule,delayed release 90 mg PO QHS 06/09/19 [History Last Taken Unknown] prazosin 5 mg PO QHS 09/17/19 [History Last Taken Unknown] trazodone 100 mg tablet 300 mg PO QHS tab 10/28/19 [History Last Taken Unknown] carbamazepine 200 mg tablet 200 mg PO BID tab 03/22/20 [History Last Taken 06/22/21] gabapentin 600 mg tablet 600 mg PO TID tab 03/22/20 [History Last Taken 06/22/21] hydroxyzine pamoate 25 mg capsule 50 mg PO TID PRN 03/22/20 [History Last Taken Unknown] Handicap Placard #1 ea 05/03/20 [Rx Last Taken Unknown] aripiprazole 30 mg tablet 30 mg PO DAILY tab 01/07/21 [History Last Taken Unknown] epinephrine 0.3 mg/0.3 mL injection, auto-injector 0.3 mg IM Q5-15M PRN #2 ea 02/24/21 [Rx Last Taken Unknown] baclofen 10 mg tablet 10 mg PO TID 03/23/21 [History Last Taken Unknown] levetiracetam 500 mg tablet 500 mg PO BID #180 tab 04/05/21 [Rx Last Taken Unknown] benzonatate 200 mg capsule 200 mg PO TID PRN #180 cap 06/01/21 [Rx Last Taken Unknown] promethazine 25 mg tablet 25 mg PO BID PRN #60 tab 06/01/21 [Rx Last Taken Unknown] sumatriptan succinate 50 mg tablet See Rx Instructions PO .COMPLEX #14 tab 06/01/21 [Rx Last Taken Unknown] dicyclomine 10 mg capsule 10 mg PO TID #90 cap 07/13/21 [Rx Last Taken Unknown] pantoprazole 40 mg PO DAILY #30 tab 07/18/21 [Rx Last Taken Unknown] hydrocodone-acetaminophen 5-325mg 5mg-325mg 1 tab PO BID tab 08/02/21 [History Last Taken Unknown] ondansetron 4 mg disintegrating tablet 8 mg PO Q8H PRN PRN #90 tab 08/02/21 [Rx Last Taken Unknown] simvastatin 20 mg tablet 20 mg PO QPM #90 tab 08/08/21 [Rx Last Taken Unknown] Allergy/AdvReac Type Severity Reaction Status Date / Time venom-honey bee Allergy Severe severe Verified 08/12/21 07:21 venom-wasp Allergy Severe severe Verified 08/12/21 07:21 ciprofloxacin [From Cipro] Allergy Rash Verified 08/12/21 07:21 erythromycin base Allergy Anaphylaxis Verified 08/12/21 07:21 iodine Allergy Anaphylaxis Verified 08/12/21 07:21 latex Allergy Rash Verified 08/12/21 07:21 metronidazole [From Flagyl] Allergy Anaphylaxis Verified 08/12/21 07:21 naproxen [From Naprosyn] Allergy Anaphylaxis Verified 08/12/21 07:21 Penicillins Allergy Anaphylaxis Verified 08/12/21 07:21 shellfish derived Allergy Anaphylaxis Verified 08/12/21 07:21 adhesive AdvReac Mild BLISTERS Verified 08/12/21 07:21 Family History Father Asthma Grandfather No problems noted. Grandmother Asthma Brother Lung cancer Diabetes Hypertension Grandfather Asthma Grandmother Asthma Hypertension Mother Diabetes Aunt Diabetes Son Seizures Asthma Surgical History History of appendectomy History of bladder repair surgery History of carpal tunnel surgery of right wrist History of colonoscopy History of esophagogastroduodenoscopy (EGD) History of hysterectomy History of orthopedic surgery History of spinal surgery Hx of repair of right rotator cuff Hx of surgical procedure S/P left knee surgery S/P umbilical hernia repair, follow-up exam Status post left foot surgery Social History Smoking Status: Light Smoker (<10/day) alcohol intake: never substance use type: does not use what type of physical activity do you participate in: none ROS ROS ED Constitutional Constitutional ED: Denies chills or fever(s) Eyes Eyes: Denies change in vision or diplopia ENT ENT ED: Denies rhinorrhea or sore throat Cardiovascular Cardiovascular: Denies chest pain or palpitations Respiratory/Chest Respiratory/Chest: Denies cough or dyspnea Gastrointestinal Gastrointestinal: Reports as per HPI, abdominal pain, hematemesis, nausea and vomiting; Denies diarrhea or rectal bleeding Genitourinary Genitourinary ED: Denies dysuria or hematuria Musculoskeletal Musculoskeletal: Denies back pain or neck pain Integumentary Denies abscess or rash Neurologic Neurologic: Denies headache(s), paresthesias or weakness Psychiatric Psychiatric: Denies anxiety or suicidal thoughts EXAM Physical Exam Const Vital Signs: 08/12/21 07:21 Temperature 95.8 F L Temperature Source Temporal Pulse Rate 105 H Respiratory Rate 16 Blood Pressure 133/71 H Blood Pressure Mean 91 Pulse Ox 100 Oxygen Delivery Method Room Air Positive well nourished and well developed Constitutional Narrative: Well-appearing, conversive in full sentences General Appearance ED: well developed and NAD HEENT Reports moist mucous membranes normocephalic and atraumatic Eyes PERRL and EOMs intact bilaterally Neck full ROM and supple Resp normal respiratory effort and clear to auscultation bilaterally Cardio regular rate, regular rhythm and no murmurs GI non-distended GI Narrative: Mildly tender right upper quadrant more so than epigastrium and left upper quadrant otherwise nontender. No guarding or rebound tenderness negative Greenberg's. Auscultation: normoactive bowel sounds Palpation: soft Back/Spine no CVA tenderness General Back: other FROM Extremity normal to inspection General Extremety ED: Negative for edema, pulses abnormal or tenderness General Extremity: Negative for edema or pulses abnormal Neuro oriented x3, CN's II-XII intact bilaterally and no sensory deficits noted Sensorium / Orientation: awake and alert Motor Exam: strength 5/5 throughout Skin no rashes or lesions noted and no wounds MDM MDM MDM Narrative Medical decision making narrative: Patient symptoms were treated, I did obtain a chemistry panel to assess for electrolyte disturbances/need for replacement, and she was given a liter of fluid. Before I could reevaluate her, the patient eloped. I did not think that she needed more of a diagnostic work-up here in emergency department, she has been seen here for the same symptoms multiple times in the past, sometimes worse with gross hematemesis that she does not have now, and she has had a very thorough work-up, and was seen by gastroenterology while she has been symptomatic for the past 3 days. Assuming that she was improved, the plan was to discharge her today. Lab Data Attestation: I reviewed the patient's lab results. Labs: Laboratory Results - last 24 hr 08/12/21 07:50 Sodium 143 Potassium 4.1 Chloride 112 H Carbon Dioxide 26.0 Anion Gap 5 BUN 13 Creatinine 0.76 Estim Creat Clear Calc 91.86 Est GFR (MDRD) Af Amer 106 Est GFR (MDRD) Non-Af 87 BUN/Creatinine Ratio 17.1 Glucose 106 Calcium 8.4 L Total Bilirubin 0.20 AST 21 ALT 19 Alkaline Phosphatase 131 H Total Protein 7.3 Albumin 3.3 Globulin 4.0 Albumin/Globulin Ratio 0.8 L Discharge Plan Triage Chief Complaint: Abd Pain ED Provider: Iain Marcelo Dx/Rx/DC Orders Clinical Impression: Vomiting, Hematemesis, Right upper quadrant abdominal pain Prescriptions: No Action topiramate 200 mg tablet 200 mg PO QHS RF: 0 carbamazepine 200 mg tablet 200 mg PO BID RF: 0 duloxetine 30 mg capsule,delayed release(DR/EC) 90 mg PO QHS RF: 0 aripiprazole [Abilify] 30 mg tablet 30 mg PO DAILY RF: 0 baclofen 10 mg tablet 10 mg PO TID RF: 0 benzonatate 200 mg capsule 200 mg PO TID PRN (Reason: cough) Qty: 180 RF: 2 sumatriptan succinate 50 mg tablet See Rx Instructions PO .COMPLEX Qty: 14 RF: 2 promethazine 25 mg tablet 25 mg PO BID PRN (Reason: nausea and vomiting) Qty: 60 RF: 1 dicyclomine 10 mg capsule 10 mg PO TID Qty: 90 RF: 2 hydrocodone-acetaminophen 5-325 mg tablet 1 tab PO BID RF: 0 ondansetron 4 mg tablet,disintegrating 8 mg PO Q8H PRN PRN (Reason: Nausea) Qty: 90 RF: 2 trazodone 100 mg tablet 300 mg PO QHS RF: 0 gabapentin 600 mg tablet 600 mg PO TID RF: 0 hydroxyzine pamoate 25 mg capsule 50 mg PO TID PRN (Reason: Anxiety) RF: 0 prazosin 5 MG capsule 5 mg PO QHS RF: 0 pantoprazole 40 mg tablet,delayed release (DR/EC) 40 mg PO DAILY Qty: 30 RF: 0 (DME) Handicap Placard See Rx Instructions .Route .MEDSUPPLY Qty: 1 RF: 0 epinephrine [EpiPen 2-Raymond] 0.3 mg/0.3 mL auto-injector 0.3 mg IM Q5-15M PRN (Reason: anaphylaxis) Qty: 2 RF: 3 levetiracetam [Keppra] 500 mg tablet 500 mg PO BID Qty: 180 RF: 1 simvastatin 20 mg tablet 20 mg PO QPM Qty: 90 RF: 2 Primary Care Provider: Gayle Munoz Referrals: Gayle Munoz MD [Primary Care Provider] - Disposition Disposition: Elopement
[2021-08-12] MEDS: 0.9% Normal Saline 1,000 ML 1000 ML IV (07:56)
[2021-08-12] MEDS: Morphine 4 MG/ML Syringe IV (07:57)
[2021-08-12] MEDS: Metoclopramide 10 MG/2 ML Vial IV (07:57)
[2021-08-12 08:23] LABS: ALB/GLOB Ratio 0.8 RATIO (0.9-2.4); AST(SGOT) 21 U/L (15-37); Alanine Aminotransfer ALT/SGPT 19 U/L (13-56); Albumin, Serum 3.3 g/dL (3.2-5.0); Alkaline Phosphatase 131 U/L (45-117); Anion Gap 5 (5-15); BUN 13 mg/dL (7-18); BUN/Creat Ratio 17.1 RATIO (10-20); Calcium,Total 8.4 mg/dL (8.5-10.1); Chloride 112 mmol/L (98-107); Creatinine, Serum 0.76 mg/dL (0.55-1.02); EST Glomerular Filtration Rate 87 mL/min (>60); Est Glom Filt Rate - Afr Amer 106 mL/min (>60); Estimated Creatinine Clearance 91.86 ml/min; Glucose 106 mg/dL (74-106); Potassium 4.1 mmol/L (3.5-5.1); Protein, Total 7.3 g/dL (6.4-8.2); Sodium Level 143 mmol/L (136-145)
--- NOTE | 2021-08-12 10:18 | ED.RN ---
Pt stated that she has to go get her daughter from school. Pts iv discharged.
== END 2021-08-12 10:56 | disposition left against medical advice (07) ==
PROVIDERS: Emergency Provider Emergency Medicine; PCP Internal Medicine; Visit Provider Emergency Medicine
DX: K92.0 Hematemesis (principal); R10.11 Right upper quadrant pain; F17.200 Nicotine dependence, unspecified, uncomplicated; Z86.73 Personal history of transient ischemic attack (TIA), and cerebral infarction without residual deficits
CPT/HCPCS: 80053; 96361; 96374; 96375; 99283; J7030; A4216

== ENCOUNTER → 2021-09-07 | Outpatient (CLI) | payer MEDICAID, SELFPAY ==
--- NOTE | 2021-09-07 08:17 | BI_ITS ---
MAMMOGRAPHY - BILATERAL SCREENING REASON FOR EXAM: Female, 46 years old. Routine annual screening examination. PERTINENT HISTORY: Sister with breast cancer. Grandmother with breast cancer. Aunt with breast cancer. History of bilateral nipple discharge. TECHNIQUE: Digital bilateral breast ahmet (3D mammographic acquisition) in the CC and MLO projections. 2-D mediolateral oblique (MLO) and craniocaudad (CC) views of both breasts were obtained. CAD: Full Field Digital Mammography with Computer Added Detection was performed. COMPARISON: Comparison is made with prior study dated 06/05/2019. FINDINGS: Breast Composition: There are scattered areas of fibroglandular density. There are no dominant masses or suspicious calcifications. No other significant abnormalities are identified. There has been no significant change since the prior study. BI/SCRN MAMM (CAD)W/AHMET BILAT IMPRESSION: Stable bilateral screening mammogram. Yearly follow-up mammogram recommended. (A) ASSESSMENT CATEGORY: BIRADS Category 1: Negative. A letter regarding these results will be sent to the patient by the facility within 30 days. Approximately 10% of breast cancers are not detected by mammography. A normal mammogram should not delay biopsy of a clinically suspicious abnormality. [id number] Electronically Signed: Amado Bernardo MD at 9:55 EDT ,
== END | disposition home or self-care (01) ==
LOC: OPBI 08:16
PROVIDERS: PCP Internal Medicine; Visit Provider Internal Medicine
DX: Z12.31 Encounter for screening mammogram for malignant neoplasm of breast (principal)
CPT/HCPCS: 77063; 77067

== ENCOUNTER 2021-09-09 05:44 | Day surgery (SDC) | payer MEDICAID, SELFPAY ==
[2021-09-09] VITALS (7 sets, daily range): BP systolic 97–118; BP diastolic 59–84; PULSE 65–86; RESP 16; TEMP 36.5–36.6; O2SAT 92–98; BMI 31.7
[2021-09-09] MEDS: Lactated Ringers 1,000 ML 15 ML IV (06:23)
--- NOTE | 2021-09-09 06:31 | HP.PCM_ITS ---
History and Physical Date of Admission: 09/09/21 CHARLOTTE VASQUEZ, is a 45 F who presents to the office today for f/u episodes of right upper quadrant and epigastric pain associated with vomiting and sometimes diarrhea. Last office visit was 07/13/21. These episodes are getting more frequent and more severe. She reports at least 4 per week. Can last 2 days. She went to the ED for these symptoms on 07/13/21, 07/18/21 and 07/31/21. Flushing of face and ears during the episodes. No relief with dicyclomine. Worse vomiting with sucralfate. No relief with GI cocktail. Abd gets very bloated. Alternating constipation and diarrhea. Some dark stools, no bright red blood per rectum. Abdominal pain not related to eating. No relief with Phenergan. No relief with ondansetron. No marijuana or other drugs, no alcohol She acknowledges she has a lot of anxiety right now; she has f/u next month with her psychiatrist. She sees Dr Forest Dos Santos for pain mgmt, he comes to [facility]. Capsule endoscopy--no active bleeding. small fissure in stomach. no mass. HIDA scan normal CT showed sludge in the gallbladder US showed hepatomegaly and fatty liver Her father of alcoholic cirrhosis 06/23/21 EGD and Colonoscopy Impression: - LA Grade A reflux esophagitis. Biopsied. - Erythematous mucosa in the antrum. Biopsied. - Erythematous duodenopathy. Biopsied. Impression: - Congested mucosa in the sigmoid colon. Biopsied. - One 5 mm polyp in the sigmoid colon, removed with a hot snare. Resected and retrieved. - Congested mucosa in the terminal ileum. Biopsied. MICROSCOPIC DIAGNOSIS A. Duodenum, biopsy:No pathologic change. B. Distal esophagus, biopsy:Gastroesophageal junctional mucosa with chronic inflammation.Consistent with reflux esophagitis.No evidence of goblet cell metaplasia.See comment. C. Gastric antrum, biopsy:Mild chronic inflammation. D. Descending colon, biopsy:Fragments of tubular adenoma. E. Terminal ileum, biopsy:No pathologic change. F. Colon, random biopsy:No pathologic change. Negative H pylori ROS Const Constitutional: Positive for fatigue, frequent falls, headache(s) and weakness ENT ENT: Positive for headache(s) and difficulty swallowing Cardio Cardiology: Positive for leg pain with exertion Gastro GI: Positive for abdominal pain, bloating, change in bowel habits, constipation, diarrhea, heartburn, difficulty swallowing, excessive flatus, Blood in stool, nausea/dyspepsia and vomiting; No belching, change in stool character, coffee ground emesis, cramping, feeling full early, incontinent of stools, Vomiting blood/hematemesis, loose stools, Black,tarry stools, pain with swallowing or other Musc Musculoskeletal: Positive for joint pain, back pain, joint swelling, muscle weakness, numbness, stiffness, tingling, Arthritis, restless legs and leg pain with exertion Skin Skin: Positive for dry skin and itchy eyes; No yellowing of the eye Neuro Neurology: Positive for weakness, frequent falls, headache(s), numbness, tingling and restless legs Psych Psychiatric: No anxiety and No depression Endo Endocrine: Positive for fatigue Aller/Imm Allergy/Immunologic: Positive for itchy eyes Esteban/Lymp Hematologic/Lymphatic: Positive for easy bleeding; No easy bruising Exam Const General: cooperative, well developed, well groomed and anxious Nutritional Appearance: obese Other: in wheelchair w/ boot on left LE Eyes Sclera: sclerae normal Cornea: corneas normal GI Inspection: distended Palpation: no masses and tender (generalized) Neuro General: patient alert, patient awake and patient oriented x3 Quality Reporting Tobacco Screening ([facility] 138) Smoking Status: Light Smoker (<10/day) Assessment and Plan Assessment and Plan (1) Abdominal pain: Status: Acute Qualifiers: Abdominal location: epigastric Qualified Code(s): R10.13 - Epigastric pain (2) Hematemesis: Status: Acute (3) Vomiting: Status: Acute Orders: Orders: Catecholamines, Plasma Today R10.13, K92.0, R11.10 Gastrin, Serum Today R10.13, K92.0, R11.10 Miscellaneous Lab Procedure Today R10.13, K92.0, R11.10 Porphyrins,24H Urine Today R10.13, R11.10 Amylase Today R10.13 CPK Total, Creatine Kinase Today R10.13 Plan - 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 Case discussed with Dr Diaz. No evident GI cause for her abdominal pain. Will do a few more tests for rarer causes for this pain. Better management of anxiety may help. Will also request her pain mgmt Dr Forest bloom this pain RUQ under ribs--possible nerve entrapment? She takes 2 norco per day prescribed by him. Continue pantoprazole. Will schedule first available EGD since she has increased hematemesis. I have re-examined the patient. There are no clinical changes since date of exam.
--- NOTE | 2021-09-09 07:00 | EGD_PTH ---
PATIENT: CHARLOTTE VASQUEZ LOC: EN U#:[id number] AGE/SX: 46/F ROOM: RE09/09/[address]: Dr. Gary Diaz DO : 1975 BED: DIS: 09/09/2021 SPEC #: [id number] RECD: 09/09/21 12:35 STATUS: RAMON REBrent #: [id number] CHERYL: 09/09/21 07:[address]: Gary Diaz DEPT: SURGICAL PATHOLOGY RECD BY: Scarlett Biswas ENTERED: 09/09/21 13:12 SP TYPE: EGD BIOPSY OT DR: Dr. Gayle Munoz MD Tissues: A - Esophagus, NOS B - Esophagus, NOS Procedures: Special Stain Group II Surgery Specimen Level IV Alcian Blue/PAS (control) HEADER OPERATION: [place] ([facility] [place] PRE-OP DIAGNOSIS: Abdominal pain, hematemesis, vomiting TISSUE SUBMITTED: A ? Distal esophagus biopsy, B ? Proximal esophagus biopsy MICROSCOPIC DIAGNOSIS A. Distal esophagus, biopsy: Fragments of gastric mucosa with chronic inflammation. Intestinal metaplasia (goblet cell metaplasia) not identified. See comment. B. Proximal esophagus, biopsy: Fragments of gastric mucosa with chronic inflammation. Intestinal metaplasia (goblet cell metaplasia) not identified. See comment. SJ:rodolfo 09/12/2021 COMMENT A & B. Alcian blue/PAS stain with matched control is used in the evaluation of the specimen. MICROSCOPIC DESCRIPTION Slides are reviewed. GROSS DESCRIPTION A - Received in fixative is one container labeled with the patient's name and designated distal esophagus biopsy. The specimen consists of multiple irregular fragments of light doyle soft tissue that in aggregate measure 1 x 0.5 x 0.1 cm. The specimen is totally submitted in one cassette. B - Received in fixative is one container labeled with the patient's name and designated proximal esophagus biopsy. The specimen consists of two irregular fragments of light doyle soft tissue that in aggregate measure 0.6 x 0.6 x 0.1 cm. The specimen is totally submitted in one cassette. / AM:rodolfo 09/09/2021 TC:3 CPT: 74803 x2, 45151 x2
--- NOTE | 2021-09-09 07:45 | OP.EGD_ITS ---
Patient Name: Crys Franks Procedure Date: 09/09/2021 7:22 AM Date of : 1975 Age: 46 Procedure: Upper GI endoscopy Indications: Epigastric abdominal pain, Abdominal pain in the right upper quadrant, Heartburn, Failure to respond to medical treatment Providers: Gary Diaz DO Referring MD: Gayle Munoz MD Medicines: Monitored Anesthesia Care Patient Profile: This is a 46 year old female. Refer to note in patient chart for documentation of history and physical. Patient has symptoms of chronic nausea and acute vomiting. Complications: No immediate complications. Procedure: Pre-Anesthesia Assessment: - Prior to the procedure, a History and Physical was performed, and patient medications and allergies were reviewed. The risks and benefits of the procedure and the sedation options and risks were discussed with the patient. All questions were answered and informed consent was obtained. Patient identification and proposed procedure were verified by the physician in the pre-procedure area. Mental Status Examination: alert and oriented. Airway Examination: normal oropharyngeal airway and neck mobility. Respiratory Examination: clear to auscultation. CV Examination: normal. Prophylactic Antibiotics: The patient does not require prophylactic antibiotics. Prior Anticoagulants: The patient has taken no previous anticoagulant or antiplatelet agents. ASA Grade Assessment: II - A patient with mild systemic disease. After reviewing the risks and benefits, the patient was deemed in satisfactory condition to undergo the procedure. The anesthesia plan was to use moderate sedation / analgesia (conscious sedation). Immediately prior to administration of medications, the patient was re-assessed for adequacy to receive sedatives. The heart rate, respiratory rate, oxygen saturations, blood pressure, adequacy of pulmonary ventilation, and response to care were monitored throughout the procedure. The physical status of the patient was re-assessed after the procedure. After obtaining informed consent, the endoscope was passed under direct vision. Throughout the procedure, the patient's blood pressure, pulse, and oxygen saturations were monitored continuously. The Endoscope was introduced through the mouth, and advanced to the second part of duodenum. The upper GI endoscopy was accomplished without difficulty. The patient tolerated the procedure well. Scope In: 7:30:51 AM Scope Out: 7:37:30 AM Total Procedure Duration Time 0 hours 6 minutes 39 seconds Findings: Multiple areas of ectopic gastric mucosa were found in the upper third of the esophagus, 20 cm from the incisors. Biopsies were taken with a cold forceps for histology. Verification of patient identification for the specimen was done. Estimated blood loss was minimal. LA Grade B (one or more mucosal breaks greater than 5 mm, not extending between the tops of two mucosal folds) esophagitis with bleeding was found 37 to 39 cm from the incisors. Biopsies were taken with a cold forceps for histology. Verification of patient identification for the specimen was done. Estimated blood loss was minimal. The entire examined stomach was normal. The second portion of the duodenum was normal. Impression: - Ectopic gastric mucosa in the upper third of the esophagus. Biopsied. - LA Grade B reflux esophagitis. Biopsied. - Normal stomach. - Normal second portion of the duodenum. Biopsied. Recommendation: - Await pathology results. - Repeat upper endoscopy in 1 year for surveillance. - Continue present medications. Procedure Code(s): --- Professional --- 99809, Esophagogastroduodenoscopy, flexible, transoral; with biopsy, single or multiple CPT copyright 2017 [employer]. All rights reserved. The codes documented in this report are preliminary and upon c python developer review may be revised to meet current compliance requirements. Gary Diaz DO 09/09/2021 7:44:28 AM This report has been signed electronically. Number of Addenda: 1 Note Initiated On: 09/09/2021 7:22 AM Addendum Number: 1 Addendum Date: 01/10/2022 6:29:38 AM MAC was used as sedation for this procedure. Gary Diaz DO 01/10/2022 6:29:41 AM This report has been signed electronically.
--- NOTE | 2021-09-09 07:46 | OP.CCLET_ITS ---
01/10/2022 Gayle Munoz MD [address] [place] [address] [place] [address] Re : Upper GI endoscopy procedure for Crys Franks Dear Dr. Munoz This procedure was performed on Thursday, September 09, 2021. My impressions and recommendations are as follows: Impressions : - Ectopic gastric mucosa in the upper third of the esophagus. Biopsied. - LA Grade B reflux esophagitis. Biopsied. - Normal stomach. - Normal second portion of the duodenum. Biopsied. Recommendations : - Await pathology results. - Repeat upper endoscopy in 1 year for surveillance. - Continue present medications. My findings are described in the full procedure note, which is enclosed. If I can be of further assistance, please feel free to contact me at . Sincerely, Gary Diaz, 09/09/2021 7:44:28 AM This report has been signed electronically.
== END 2021-09-09 08:11 | disposition home or self-care (01) ==
LOC: EN 05:44 → AC 05:45
PROVIDERS: PCP Internal Medicine; Referring Provider Internal Medicine; Visit Provider Internal Medicine Gastroenterology
PROC: 0DJ08ZZ Inspection of Upper Intestinal Tract, Via Natural or Artificial Opening Endoscopic (ICD-10-PCS; CPT 43235; principal; 2021-09-09 06:55)
DX: K21.00 Gastro-esophageal reflux disease with esophagitis, without bleeding (principal); F17.200 Nicotine dependence, unspecified, uncomplicated; E66.9 Obesity, unspecified; F32.A Depression, unspecified; F41.9 Anxiety disorder, unspecified; M19.90 Unspecified osteoarthritis, unspecified site; Z86.73 Personal history of transient ischemic attack (TIA), and cerebral infarction without residual deficits; Z79.899 Other long term (current) drug therapy
CPT/HCPCS: 43239; 88305; 88313; J7120

== ENCOUNTER 2021-09-15 12:38 | Day surgery (SDC) | payer MEDICAID, SELFPAY ==
[2021-09-15] VITALS (9 sets, daily range): BP systolic 99–122; BP diastolic 60–89; PULSE 70–87; RESP 16–18; TEMP 28.8–36.8; O2SAT 93–100; BMI 32.5
[2021-09-15] MEDS: Lactated Ringers 1,000 ML 15 ML IV (14:17)
[2021-09-15] MEDS: Vancomycin IV 1,000 MG/200 ML BAG 200 MG IV (14:17)
--- NOTE | 2021-09-15 14:45 | RAD_ITS ---
STUDY: X-RAY - PELVIS REASON FOR EXAM: Female, 46 years old. INTERSTIM 1 TECHNIQUE: One view of the pelvis was obtained. COMPARISON: None. FINDINGS: Intraoperative imaging provided for InterStim placement. RAD/Pelvis 1 or 2 Views IMPRESSION: Intraoperative imaging provided for InterStim placement. Electronically Signed: Amado Bernardo MD at 10:16 EDT ,
--- NOTE | 2021-09-15 15:31 | PCM.DC ---
Discharge Instructions Diet Discharge Diet: No restrictions Activity Discharge Activity: May Shower (In 2 days) Dressing / Incision Call your doctor if your incision/area has: Continuous Slow Oozing, Sudden Increased Bleeding, Increased Pain/ Swelling, Increased Redness, Foul Smelling Discharge and Swelling at the incision site Call your doctor if you observe: Fever of 101 or Higher, Inability to urinate and Inability to have a bowel movement Suture Line Care: Avoid Pulling/Pushing and Avoid Pinching/Bending Remove Dressing in: leave until fall off (Do not remove the incision skin glue) Follow Up Care Please Follow Up With: Kim Riggs MD When: In 2 to 3 weeks, call the office for appointment Test Results: Test results from this visit will be discussed in further detail at your follow-up appointment, if applicable. Discharge Plan Admission Attending Provider: Kim Riggs Primary Care Provider: Gayle Munoz Discharge Orders/Prescriptions Prescriptions: New sulfamethoxazole-trimethoprim [sulfamethoxazole-trimethoprim] 1 TABLET tablet 1 tab PO BID 3 Days Qty: 6 RF: 0 oxycodone-acetaminophen [oxycodone-acetaminophen] 1 TABLET tablet 2 tab PO Q8H PRN PRN (Reason: Pain) 3 Days Qty: 12 RF: 0 Continued topiramate 200 mg tablet 200 mg PO QHS RF: 0 carbamazepine 200 mg tablet 200 mg PO BID RF: 0 duloxetine 30 mg capsule,delayed release(DR/EC) 90 mg PO QHS RF: 0 aripiprazole [Abilify] 30 mg tablet 30 mg PO DAILY RF: 0 baclofen 10 mg tablet 10 mg PO TID RF: 0 promethazine 25 mg tablet 25 mg PO BID PRN (Reason: nausea and vomiting) Qty: 60 RF: 1 quetiapine [Seroquel] 100 mg tablet 100 mg PO QHS RF: 0 sumatriptan succinate 50 mg tablet See Rx Instructions PO .COMPLEX Qty: 14 RF: 2 benzonatate 200 mg capsule 200 mg PO TID PRN (Reason: cough) Qty: 180 RF: 2 ondansetron 4 mg tablet,disintegrating 8 mg PO Q8H PRN PRN (Reason: Nausea) Qty: 90 RF: 2 hydrocodone-acetaminophen 5-325 mg tablet 1 tab PO BID RF: 0 trazodone 100 mg tablet 300 mg PO QHS RF: 0 gabapentin 600 mg tablet 600 mg PO TID RF: 0 hydroxyzine pamoate 25 mg capsule 50 mg PO TID PRN (Reason: Anxiety) RF: 0 prazosin 5 MG capsule 5 mg PO QHS RF: 0 pantoprazole 40 mg tablet,delayed release (DR/EC) 40 mg PO DAILY Qty: 30 RF: 0 (DME) Handicap Placard See Rx Instructions .Route .MEDSUPPLY Qty: 1 RF: 0 epinephrine [EpiPen 2-Raymond] 0.3 mg/0.3 mL auto-injector 0.3 mg IM Q5-15M PRN (Reason: anaphylaxis) Qty: 2 RF: 3 simvastatin 20 mg tablet 20 mg PO QPM Qty: 90 RF: 2 levetiracetam [Keppra] 500 mg tablet 500 mg PO BID Qty: 180 RF: 1 dicyclomine 10 mg capsule 10 mg PO TID Qty: 90 RF: 2 Referrals / Follow Up: Gayle Munoz MD [Primary Care Provider] - Disposition Disposition (needs filled in before D/C Order can be placed): Home, Self Care
--- NOTE | 2021-09-15 15:36 | PCM.OPRPT ---
Problems Associated Problem List Diagnoses (1) Urinary frequency: (2) Urge incontinence: Report of Operation Date of Procedure: 09/15/21 Pre-Operative Diagnosis: Urinary frequency, urinary urge incontinence Post-Operative Diagnosis: Same Surgery/Procedure Performed:: InterStim battery replacement and pocket revision Surgeon: Kim Riggs [place]est[place] [facility] [place] [facility] [place] Description of Procedure: The patient is a 46-year-old female with a successful InterStim on her left side and a spinal stimulator on her right. The InterStim battery has been flopping in its pocket site. She has been having the unit zap her leg and cause pain. She has had an increase in her urgency, frequency and leakage and the battery was determined to be nonfunctioning. She was consented for lead and battery change. She was taken to the operating room and placed in the prone position on the operating room table. She was appropriately padded and secured to the table. Anesthesia monitored the head, neck, airway, IV access and vital signs throughout the case. Once anesthesia was appropriate ministered the patient was prepped and draped in usual sterile fashion. The C arm was used for fluoroscopic evaluation of the lead and battery. The battery was seen to be completely on its side. The lead was in the S3 foramen in an appropriately curved position, mildly shallow in the S3 foramen. The area overlying the battery was infiltrated with lidocaine. The incision was opened with a knife and careful dissection was performed until the battery was brought into the operative field and removed with a torque wrench. At this time the pocket was closed with 3-0 PDS. A cephalad pocket was formed from the same incision and cautery was used for hemostasis. The lead was inserted into a new battery and secured with a torque wrench. The battery was placed into the new pocket site and checked for impedances which were found to be appropriate. The incision was then closed with 3-0 Vicryl followed by 4-0 subcuticular Vicryl and Dermabond. The patient was then awakened and taken to the recovery room in good condition. There were no complications during this procedure. Grafts/Implants Used: InterStim battery Complications None Admit VTE Documentation VTE Present on Admission: No VTE Mechan Device Prophylaxis: None VTE Pharm Prophylaxis ordered?: No Reason prophylaxis not ordered:: Treatment Not Indicated
[2021-09-15] MEDS: Lidocaine 1% /Epi 1:100 (20ml) 20 ML Vial (16:11)
== END 2021-09-15 18:20 | disposition home or self-care (01) ==
LOC: SDC 12:38 → AC 12:40
PROVIDERS: PCP Internal Medicine; Referring Provider Urology; Visit Provider Urology
PROC: (CPT 64590; principal; 2021-09-15 14:35)
DX: Z45.42 Encounter for adjustment and management of neurostimulator (principal); N39.41 Urge incontinence; R35.0 Frequency of micturition; R35.1 Nocturia; G60.9 Hereditary and idiopathic neuropathy, unspecified; M19.90 Unspecified osteoarthritis, unspecified site; Z79.899 Other long term (current) drug therapy; N39.44 Nocturnal enuresis; M54.9 Dorsalgia, unspecified; K21.9 Gastro-esophageal reflux disease without esophagitis; F41.9 Anxiety disorder, unspecified; F32.A Depression, unspecified; M79.7 Fibromyalgia; N30.10 Interstitial cystitis (chronic) without hematuria
CPT/HCPCS: 64590; 00400; 17999; 72170; 76000; J7120; C1767; J2405

== ENCOUNTER 2021-12-08 07:27 | Day surgery (SDC) | payer MEDICAID, SELFPAY ==
[2021-12-08] VITALS (11 sets, daily range): BP systolic 95–111; BP diastolic 48–80; PULSE 70–90; RESP 16–18; TEMP 36.4–36.8; O2SAT 93–100; BMI 34.4
[2021-12-08] MEDS: Lactated Ringers 1,000 ML 15 ML IV (08:13)
[2021-12-08] MEDS: Vancomycin IV 1,000 MG/200 ML BAG 200 MG IV (08:14)
--- NOTE | 2021-12-08 08:25 | RAD_ITS ---
STUDY: X-RAY - PELVIS REASON FOR EXAM: Female, 46 years old. AXONICS STAGE 1 TECHNIQUE: One view of the pelvis was obtained. COMPARISON: Comparison is made with prior study dated 09/15/2021. FINDINGS: Intraoperative imaging provided forAXONICS stage I RAD/Pelvis 1 or 2 Views IMPRESSION: Intraoperative fluoroscopy provided for AXONICS 1. Electronically Signed: Amado Bernardo MD at 11:30 EDT ,
--- NOTE | 2021-12-08 09:07 | DCINST_ITS ---
Discharge Instructions Diet Discharge Diet: No restrictions Activity Discharge Activity: May Shower (in 2 days) May resume sexual activity in: 2 weeks Dressing / Incision Call your doctor if your incision/area has: Continuous Slow Oozing, Sudden Increased Bleeding, Increased Pain/ Swelling, Increased Redness, Foul Smelling Discharge and Swelling at the incision site Call your doctor if you observe: Fever of 101 or Higher, Inability to urinate and Inability to have a bowel movement Remove Dressing in: leave until fall off (leave steris strips until they fall off. ) Follow Up Care Please Follow Up With: Kim Riggs MD When: 2 weeks, call the office for appointment Test Results: Test results from this visit will be discussed in further detail at your follow- up appointment, if applicable. Discharge Plan Admission Attending Provider: iKm Riggs Primary Care Provider: Gayle Munoz Discharge Orders/Prescriptions Prescriptions: New sulfamethoxazole-trimethoprim [sulfamethoxazole-trimethoprim] 800-160 mg tablet 1 tab PO BID 3 Days Qty: 6 0RF oxycodone-acetaminophen [oxycodone-acetaminophen] 5-325 mg tablet 2 tab PO Q8H PRN PRN (Reason: Pain) 7 Days Qty: 20 0RF Continued topiramate 200 mg tablet 200 mg PO QHS carbamazepine 200 mg tablet 200 mg PO BID Label Comments: 1 Tab AM & 2 PM duloxetine 30 mg capsule,delayed release(DR/EC) 90 mg PO QHS aripiprazole [Abilify] 30 mg tablet 10 mg PO DAILY baclofen 10 mg tablet 10 mg PO TID quetiapine [Seroquel] 100 mg tablet 200 mg PO QHS sumatriptan succinate 50 mg tablet See Rx Instructions PO .COMPLEX Qty: 14 2RF Rx Instructions: take 1 tab at onset of headache; if no relief may repeat 1 tab after at least 2 hrs; max = 4 tabs/24 hr PO benzonatate 200 mg capsule 200 mg PO TID PRN (Reason: cough) Qty: 180 2RF ondansetron 4 mg tablet,disintegrating 8 mg PO Q8H PRN PRN (Reason: Nausea) Qty: 90 2RF hydrocodone-acetaminophen 5-325 mg tablet 1 tab PO BID trazodone 100 mg tablet 300 mg PO QHS gabapentin 600 mg tablet 600 mg PO TID hydroxyzine pamoate 25 mg capsule 50 mg PO TID PRN (Reason: Anxiety) prazosin 5 MG capsule 5 mg PO QHS pantoprazole 40 mg tablet,delayed release (DR/EC) 40 mg PO DAILY Qty: 30 0RF oxycodone-acetaminophen 1 TABLET tablet 2 tab PO Q8H PRN PRN (Reason: Pain) 3 Days Qty: 12 0RF (DME) Handicap Placard See Rx Instructions .Route .MEDSUPPLY Qty: 1 0RF Rx Instructions: As directed, length of time 3 years epinephrine [EpiPen 2-Raymond] 0.3 mg/0.3 mL auto-injector 0.3 mg IM Q5-15M PRN (Reason: anaphylaxis) Qty: 2 3RF Rx Instructions: do not exceed 3 doses per episode simvastatin 20 mg tablet 20 mg PO QPM Qty: 90 2RF levetiracetam [Keppra] 500 mg tablet 500 mg PO BID Qty: 180 1RF (DME) Ultra-Light Rollator Misc See Rx Instructions .Route Qty: 1 0RF Rx Instructions: As directed promethazine 25 mg tablet 25 mg PO BID PRN (Reason: nausea and vomiting) Qty: 60 1RF dicyclomine 10 mg capsule See Rx Instructions .ROUTE .COMPLEX Qty: 84 0RF Dose Instruction: TAKE 1 CAPSULE BY MOUTH THREE TIMES A DAY Rx Instructions: TAKE 1 CAPSULE BY MOUTH THREE TIMES A DAY Referrals / Follow Up: Gayle Munoz MD [Primary Care Provider] - Disposition Disposition (needs filled in before D/C Order can be placed): Home, Self Care
--- NOTE | 2021-12-08 09:13 | PCM.HP.STD ---
HPI - General General Chief Complaint: Urge incontinence HPI Narrative CHARLOTTE VASQUEZ, is a 46 F who presents for removal of her InterStim and insertion of an Axonics stage I and II. Informed consent has been obtained. [facility] Medical History Abdominal pain Acute cystitis Anxiety Arthritis Back pain Back problem Lamar's palsy Blurry vision, left eye Carpal tunnel syndrome Cellulitis Cervical cancer Chronic lumbar radiculopathy Colon polyp Debility Depression Difficulty chewing Dizziness Elevated antinuclear antibody (PAT) level Elevated blood pressure reading Fall Fatty liver Fibromyalgia Foot pain, left Gastric reflux Gastrointestinal problem GI bleed Headache Health care maintenance Hearing problem Hematuria History of IBS Hives Hx of emotional problems Hypokalemia Injury of head and neck Insect bite Interstitial cystitis Irritable bowel syndrome Kidney stones Lipoma Lupus Neuropathy Osteoarthritis Physical debility Positive P-ANCA titer Post-menopausal Seasonal allergies Seizures Seizures Sludge in gallbladder Smoker Stroke Ulcer Uterine cancer UTI (urinary tract infection) Wheel chair as ambulatory aid Wheelchair dependent Home Medications topiramate 200 mg tablet 200 mg PO QHS headaches 08/15/18 [History Last Taken Unknown] duloxetine 30 mg capsule,delayed release 90 mg PO QHS depression 06/09/19 [History Last Taken Unknown] prazosin 5 mg capsule 5 mg PO QHS 09/17/19 [History Last Taken Unknown] trazodone 100 mg tablet 300 mg PO QHS sleep 10/28/19 [History Last Taken Unknown] carbamazepine 200 mg tablet 200 mg PO BID seizures 03/22/20 [History Last Taken 12/08/21] gabapentin 600 mg tablet 600 mg PO TID nerve pain 03/22/20 [History Last Taken 12/08/21] hydroxyzine pamoate 25 mg capsule 50 mg PO TID PRN Anxiety 03/22/20 [History Last Taken Unknown] Handicap Placard #1 ea 05/03/20 [Rx Last Taken Unknown] aripiprazole 30 mg tablet (Abilify) 10 mg PO DAILY 01/07/21 [History Last Taken Unknown] epinephrine 0.3 mg/0.3 mL injection, auto-injector (EpiPen 2-Raymond) 0.3 mg (0.3 mL) IM Q5-15M PRN anaphylaxis #2 ea 02/24/21 [Rx Last Taken Unknown] baclofen 10 mg tablet 10 mg PO TID 03/23/21 [History Last Taken 12/08/21] pantoprazole 40 mg tablet,delayed release 40 mg PO DAILY #30 tabs 07/18/21 [Rx Last Taken Unknown] hydrocodone-acetaminophen 5-325mg 5mg-325mg 1 tab PO BID 08/02/21 [History Last Taken 12/08/21] simvastatin 20 mg tablet 20 mg PO QPM #90 tabs 08/08/21 [Rx Last Taken Unknown] benzonatate 200 mg capsule 200 mg PO TID PRN cough #180 caps 08/30/21 [Rx Last Taken Unknown] ondansetron 4 mg disintegrating tablet 8 mg PO Q8H PRN PRN Nausea #90 tabs 08/30/21 [Rx Last Taken Unknown] quetiapine 100 mg tablet (Seroquel) 200 mg PO QHS 08/30/21 [History Last Taken Unknown] sumatriptan succinate 50 mg tablet See Rx Instructions PO .COMPLEX #14 tabs 08/30/21 [Rx Last Taken Unknown] levetiracetam 500 mg tablet (Keppra) 500 mg PO BID #180 tabs 08/31/21 [Rx Last Taken 12/08/21] oxycodone-acetaminophen 5 mg-325 mg tablet 2 tab PO Q8H PRN PRN Pain 3 days #12 tabs 09/15/21 [Rx Last Taken Unknown] walker (Ultra-Light Rollator misc) #1 ea 09/26/21 [Rx Last Taken Unknown] promethazine 25 mg tablet 25 mg PO BID PRN nausea and vomiting #60 tabs 10/13/21 [Rx Last Taken Unknown] dicyclomine 10 mg capsule See Rx Instructions .Route .COMPLEX #84 caps 11/30/21 [Rx Last Taken Unknown] oxycodone-acetaminophen 5 mg-325 mg tablet 2 tab PO Q8H PRN PRN Pain 7 days #20 tabs 12/08/21 [Rx Last Taken Unknown] sulfamethoxazole 800 mg-trimethoprim 160 mg tablet 1 tab PO BID 3 days #6 TABLETS 12/08/21 [Rx Last Taken Unknown] Allergy/AdvReac Type Severity Reaction Status Date / Time venom-honey bee Allergy Severe severe Verified 12/08/21 08:01 venom-wasp Allergy Severe severe Verified 12/08/21 08:01 ciprofloxacin [From Cipro] Allergy Rash Verified 12/08/21 08:01 erythromycin base Allergy Anaphylaxis Verified 12/08/21 08:01 iodine Allergy Anaphylaxis Verified 12/08/21 08:01 latex Allergy Rash Verified 12/08/21 08:01 metronidazole [From Flagyl] Allergy Anaphylaxis Verified 12/08/21 08:01 naproxen [From Naprosyn] Allergy Anaphylaxis Verified 12/08/21 08:01 Penicillins Allergy Anaphylaxis Verified 12/08/21 08:01 shellfish derived Allergy Anaphylaxis Verified 12/08/21 08:01 adhesive AdvReac Mild BLISTERS Verified 12/08/21 08:01 Family History Father Asthma Grandfather No problems noted. Grandmother Asthma Brother Lung cancer Diabetes Hypertension Grandfather Asthma Grandmother Asthma Hypertension Mother Diabetes Aunt Diabetes Son Seizures Asthma Surgical History History of appendectomy History of bladder repair surgery History of carpal tunnel surgery of right wrist History of colonoscopy History of esophagogastroduodenoscopy (EGD) History of hysterectomy History of orthopedic surgery History of spinal surgery Hx of repair of right rotator cuff Hx of surgical procedure S/P left knee surgery S/P umbilical hernia repair, follow-up exam Status post left foot surgery Social History Smoking Status: Light Smoker (<10/day) alcohol intake: never substance use type: does not use what type of physical activity do you participate in: none ROS Constitutional Constitutional: Reports frequent falls; Denies chills, fatigue or fever(s) Eyes Eyes: Reports systems reviewed and no addt'l complaints, except as documented ENT HEENT: Reports systems reviewed and no addt'l complaints, except as documented Cardiovascular Cardiovascular: Denies chest pain, chest pain at rest, cyanosis or dyspnea at rest Respiratory/Chest Respiratory/Chest: Denies chest congestion, cough or dyspnea Gastrointestinal Gastrointestinal: Denies abdominal pain, nausea or vomiting Genitourinary Genitourinary: Reports urinary incontinence and urinary urgency; Denies hematuria Musculoskeletal Musculoskeletal: Reports systems reviewed and no addt'l complaints, except as documented Integumentary Integumentary: Reports systems reviewed and no addt'l complaints, except as documented Neurologic Neurologic: Reports systems reviewed and no addt'l complaints, except as documented Psychiatric Psychiatric: Reports systems reviewed and no addt'l complaints, except as documented Endocrine Endocrinology: Reports systems reviewed and no addt'l complaints, except as documented Hematologic/Lymphatic Hematologic/Lymphatic: Reports systems reviewed and no addt'l complaints, except as documented Allergic/Immunologic Allergic/Immunologic: Reports systems reviewed and no addt'l complaints, except as documented Vital Signs Vital Signs Vital Signs: 12/08/21 08:06 12/08/21 08:06 Temperature 98.0 F Temperature Source Temporal Pulse Rate 78 Respiratory Rate 16 Respiratory Pattern Normal Blood Pressure 110/63 Blood Pressure Mean 78 Blood Pressure Source Monitor Blood Pressure Position Semi-Fowlers Blood Pressure Location Left Arm Pulse Ox 97 Oxygen Delivery Method Room Air Weight Weight: 99.79 kg Body Mass Index (BMI) 34.4 Physical Exam Const alert, oriented x3 and no apparent distress HEENT normocephalic, head/scalp atraumatic, hearing grossly normal bilaterally, external ears normal and external nose normal Eyes General Eye: normal appearance of both eyes Neck supple General: trachea midline Lymph Lymphatic: no lymphedema noted Chest inspection of chest normal Resp normal respiratory effort, normal air movement and no retractions Cardio regular rate and regular rhythm GI soft to palpation, non-tender and non-distended no CVA tenderness and external exam normal Back/Spine no CVA tenderness Extremity normal to inspection Skin no rashes or lesions noted Neuro oriented x3, CN's II-XII intact bilaterally and moves all extremities Psych mental status grossly normal, thought process normal, cooperative, affect normal and speech normal Assessment & Plan Assessment/Plan (1) Urinary urgency: (2) Urge incontinence: (3) Urinary frequency: PLAN: Plan Proceed with removal of InterStim, placement of Axonics stage I and II Procedure Criteria Type of Procedure Procedure Type: Elective Elective Risks - COVID COVID Risk Discussion: The surgeon/proceduralist and patient have discussed in detail the risk of exposure to and/or potential harm posed by the COVID-19 virus with having a surgery/procedure at this time versus the risk of delaying the surgery/procedure. It is not possible to know either the risk of delaying the surgery or procedure or chance of getting an infection with perfect accuracy, but a joint decision was made between the patient and the surgeon/proceduralist to proceed at this time with the scheduled surgery/procedure as indicated on the consent form.
--- NOTE | 2021-12-08 09:18 | OP.PCM_ITS ---
Report of Operation Date of Procedure: 12/08/21 Pre-Operative Diagnosis: Urinary urgency, urinary frequency, urge incontinence Post-Operative Diagnosis: Same Surgery/Procedure Performed:: Removal of InterStim battery and lead, Axonics stage I and II Surgeon: Kim Riggs Type of Anesthesia: MAC Estimated Blood Loss (mL): 5 cc Description of Procedure: The patient is a 46-year-old female who had an InterStim that has essentially stopped working for her and now presents for removal of this InterStim battery and lead with insertion of Axonics stage I and II. Informed consent was obtained. The patient was taken to the operating room and placed in a prone position on the operating room table. She was appropriately supported and secured to the table. Anesthesia monitored the head, neck, airway, IV access and vital signs throughout the case. Once anesthesia was administered, the patient was prepped and draped in usual sterile fashion. Using fluoroscopic ev aluation, the sacrum was outlined in the S3 foramen was identified and marked on the skin. The area overlying this insertion site was infiltrated with lidocaine. The needle was then inserted through the skin and the S3 foramen as seen on fluoroscopic evaluation. On stimulation there was good samina and toe flexion. The guidewire was then inserted and the needle was removed. A skin incision surrounding the guidewire was then made and the dilator was placed. Once at appropriate depth, the lead was placed through the dilator into the foramen and the dilator was retracted. Good results on all 4 leads were achieved with both samina and toe flexion. The lead was then left in this position and the dilator was removed as well as the obturator for the lead. At this time the pocket site was selected, infiltrated and a skin incision was made. The pocket was formed using blunt dissection and Bovie cautery for hemostatic control. The lead was tunneled into the pocket site. It was dried and inserted into the battery and secured using the torque wrench. Good connection was obtained. The battery was placed into the pocket site which was then closed with 3-0 interrupted Vicryl followed by 4-0 subcuticular Vicryl suturing. Steri-Strips were then applied. The lead insertion site was closed in similar fashion. Attention was turned towards the other side at this time. The skin overlying the InterStim IPG was infiltrated with lidocaine and an incision was made. The IPG was brought into the operative field and the lead was secured using a hemostat. The battery was removed from the operative field. An incision was then made over the lead insertion site. The lead was grasped and pulled into the the incision overlying the insertion site and the lead in its entirety was removed. Both sites were cauterized for hemostasis as appropriate and were closed in 2 layers using 3-0 Vicryl and 4-0 Monocryl. Steri-Strips, gauze and OpSite's were applied. The patient was then awakened and taken to the recovery room in good condition. There were no complications during this procedure. Grafts/Implants Used: Axonics lead and battery Complications None Admit VTE Documentation VTE Present on Admission: No VTE Pharm Prophylaxis ordered?: No Reason prophylaxis not ordered:: Treatment Not Indicated
[2021-12-08] MEDS: Lidocaine 1% /Epi 1:100 (20ml) 20 ML Vial (09:44)
== END 2021-12-08 12:19 | disposition home or self-care (01) ==
LOC: SDC 07:28 → AC 07:28
PROVIDERS: PCP Internal Medicine; Referring Provider Urology; Visit Provider Urology
PROC: (CPT 64585; principal; 2021-12-08 09:15)
DX: Z45.42 Encounter for adjustment and management of neurostimulator (principal); M32.9 Systemic lupus erythematosus, unspecified; G40.909 Epilepsy, unspecified, not intractable, without status epilepticus; N39.41 Urge incontinence; M79.7 Fibromyalgia; F17.200 Nicotine dependence, unspecified, uncomplicated; R35.0 Frequency of micturition; M19.90 Unspecified osteoarthritis, unspecified site; F32.A Depression, unspecified; F41.9 Anxiety disorder, unspecified; Z79.899 Other long term (current) drug therapy; N30.10 Interstitial cystitis (chronic) without hematuria
CPT/HCPCS: 64585; 64595; 00300; 72170; 76000; J7120; J2405

== ENCOUNTER 2021-12-30 16:29 | Emergency (ER) | payer MEDICAID, SELFPAY ==
[2021-12-30 16:31] VITALS: BP 134/78; PULSE 78; RESP 16; TEMP 37.2; O2SAT 98; BMI 34.4
--- NOTE | 2021-12-30 17:31 | CT_ITS ---
STUDY: CT BRAIN WITHOUT CONTRAST REASON FOR EXAM: Female, 46 years old. trauma RADIATION DOSAGE (If Supplied By Facility): CTDIvol = ( 44.99 ) mGy, DLP = ( 779.24 ) mGycm TECHNIQUE: Transaxial CT imaging of the brain was performed without administration of intravenous contrast material. Individualized dose optimization techniques were used for this CT. COMPARISON: 12/30/2020. FINDINGS: Normal soft tissue structures. Normal calvarium. Normal size ventricles and extra-axial spaces for the patient''s age. Normal white matter tracts of the cerebral hemispheres. Normal basal ganglia and thalami. Normal brainstem. Normal cerebellum. There is no intracranial hemorrhage. There are no findings of an acute ischemic infarction. Normal visualized paranasal sinuses. CT/Brain/Head without Contrast IMPRESSION: Normal unenhanced CT scan of the brain. Electronically Signed: Chantel Borjas MD at 17:58 EDT Reading Location ID and State: [id number] / Tel , Service support ,
--- NOTE | 2021-12-30 17:31 | ED.VIS.FALL ---
HPI HPI - Fall History of Present Illness Chief Complaint: Fall Informant: patient Occured/Mechanism Occurred: Today Mechanism/Context: Yes same level fall Pain/Injury Location: head, low back Quality of Pain: Aching Current Severity: Moderate Maximum Severity: Moderate Worsened by: movement Relieved by: remaining still Associated Symptoms Associated Symptoms: Positive for Parasthesias (chronic LLE) and Weakness (both hands, chronic ); Negative for Loss of function, Inability to ambulate or Loss of consciousness Narrative Narrative: Patient states she was getting finished in the shower at home, she was holding onto her safety bar, 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 She had a bladder stimulator placed in her right lumbosacral area 3 weeks ago. It has been sore ever since and still little sore, does not think she necessarily hit there. She vomited after the injury, she did not lose consciousness. She has a headache, pain in her low back, no other new symptoms. She has fibromyalgia. [facility] Medical History Abdominal pain Acute cystitis Anxiety Arthritis Back pain Back problem Lamar's palsy Blurry vision, left eye Carpal tunnel syndrome Cellulitis Cervical cancer Chronic lumbar radiculopathy Colon polyp Debility Depression Difficulty chewing Dizziness Elevated antinuclear antibody (PAT) level Elevated blood pressure reading Fall Fatty liver Fibromyalgia Foot pain, left Gastric reflux Gastrointestinal problem GI bleed Headache Health care maintenance Hearing problem Hematuria History of IBS Hives Hx of emotional problems Hypokalemia Injury of head and neck Insect bite Interstitial cystitis Irritable bowel syndrome Kidney stones Lipoma Lupus Neuropathy Osteoarthritis Physical debility Positive P-ANCA titer Post-menopausal Seasonal allergies Seizures Seizures Sludge in gallbladder Smoker Stroke Ulcer Uterine cancer UTI (urinary tract infection) Wheel chair as ambulatory aid Wheelchair dependent Home Medications topiramate 200 mg tablet 200 mg PO QHS headaches 08/15/18 [History Last Taken Unknown] duloxetine 30 mg capsule,delayed release 90 mg PO QHS depression 06/09/19 [History Last Taken Unknown] prazosin 5 mg capsule 5 mg PO QHS 09/17/19 [History Last Taken Unknown] trazodone 100 mg tablet 300 mg PO QHS sleep 10/28/19 [History Last Taken Unknown] carbamazepine 200 mg tablet 200 mg PO BID seizures 03/22/20 [History Last Taken 12/08/21] gabapentin 600 mg tablet 600 mg PO TID nerve pain 03/22/20 [History Last Taken 12/08/21] hydroxyzine pamoate 25 mg capsule 50 mg PO TID PRN Anxiety 03/22/20 [History Last Taken Unknown] Handicap Placard #1 ea 05/03/20 [Rx Last Taken Unknown] aripiprazole 30 mg tablet (Abilify) 10 mg PO DAILY 01/07/21 [History Last Taken Unknown] epinephrine 0.3 mg/0.3 mL injection, auto-injector (EpiPen 2-Raymond) 0.3 mg (0.3 mL) IM Q5-15M PRN anaphylaxis #2 ea 02/24/21 [Rx Last Taken Unknown] baclofen 10 mg tablet 10 mg PO TID 03/23/21 [History Last Taken 12/08/21] pantoprazole 40 mg tablet,delayed release 40 mg PO DAILY #30 tabs 07/18/21 [Rx Last Taken Unknown] hydrocodone-acetaminophen 5-325mg 5mg-325mg 1 tab PO BID 08/02/21 [History Last Taken 12/08/21] simvastatin 20 mg tablet 20 mg PO QPM #90 tabs 08/08/21 [Rx Last Taken Unknown] benzonatate 200 mg capsule 200 mg PO TID PRN cough #180 caps 08/30/21 [Rx Last Taken Unknown] ondansetron 4 mg disintegrating tablet 8 mg PO Q8H PRN PRN Nausea #90 tabs 08/30/21 [Rx Last Taken Unknown] quetiapine 100 mg tablet (Seroquel) 200 mg PO QHS 08/30/21 [History Last Taken Unknown] sumatriptan succinate 50 mg tablet See Rx Instructions PO .COMPLEX #14 tabs 08/30/21 [Rx Last Taken Unknown] levetiracetam 500 mg tablet (Keppra) 500 mg PO BID #180 tabs 08/31/21 [Rx Last Taken 12/08/21] oxycodone-acetaminophen 5 mg-325 mg tablet 2 tab PO Q8H PRN PRN Pain 3 days #12 tabs 09/15/21 [Rx Last Taken Unknown] walker (Ultra-Light Rollator misc) #1 ea 09/26/21 [Rx Last Taken Unknown] promethazine 25 mg tablet 25 mg PO BID PRN nausea and vomiting #60 tabs 10/13/21 [Rx Last Taken Unknown] oxycodone-acetaminophen 5 mg-325 mg tablet 2 tab PO Q8H PRN PRN Pain 7 days #20 tabs 12/08/21 [Rx Last Taken Unknown] sulfamethoxazole 800 mg-trimethoprim 160 mg tablet 1 tab PO BID 3 days #6 TABLETS 12/08/21 [Rx Last Taken Unknown] dicyclomine 10 mg capsule See Rx Instructions .Route .COMPLEX #84 caps 12/27/21 [Rx Last Taken Unknown] Allergy/AdvReac Type Severity Reaction Status Date / Time venom-honey bee Allergy Severe severe Verified 12/08/21 08:01 venom-wasp Allergy Severe severe Verified 12/08/21 08:01 ciprofloxacin [From Cipro] Allergy Rash Verified 12/08/21 08:01 erythromycin base Allergy Anaphylaxis Verified 12/08/21 08:01 iodine Allergy Anaphylaxis Verified 12/08/21 08:01 latex Allergy Rash Verified 12/08/21 08:01 metronidazole [From Flagyl] Allergy Anaphylaxis Verified 12/08/21 08:01 naproxen [From Naprosyn] Allergy Anaphylaxis Verified 12/08/21 08:01 Penicillins Allergy Anaphylaxis Verified 12/08/21 08:01 shellfish derived Allergy Anaphylaxis Verified 12/08/21 08:01 adhesive AdvReac Mild BLISTERS Verified 12/08/21 08:01 sulfamethoxazole AdvReac Hives Verified 12/30/21 16:30 [From Bactrim] trimethoprim [From Bactrim] AdvReac Hives Verified 12/30/21 16:30 Family History Father Asthma Grandfather No problems noted. Grandmother Asthma Brother Lung cancer Diabetes Hypertension Grandfather Asthma Grandmother Asthma Hypertension Mother Diabetes Aunt Diabetes Son Seizures Asthma Surgical History History of appendectomy History of bladder repair surgery History of carpal tunnel surgery of right wrist History of colonoscopy History of esophagogastroduodenoscopy (EGD) History of hysterectomy History of orthopedic surgery History of spinal surgery Hx of repair of right rotator cuff Hx of surgical procedure S/P left knee surgery S/P umbilical hernia repair, follow-up exam Status post left foot surgery Social History Smoking Status: Light Smoker (<10/day) alcohol intake: never substance use type: does not use what type of physical activity do you participate in: none ROS ROS ED Constitutional Constitutional ED: Denies chills or fever(s) Eyes Eyes: Denies change in vision or diplopia ENT ENT ED: Denies ear pain, epistaxis, facial pain or rhinorrhea Cardiovascular Cardiovascular: Denies chest pain or palpitations Respiratory/Chest Respiratory/Chest: Denies cough or dyspnea Gastrointestinal Gastrointestinal: Reports nausea and vomiting; Denies abdominal pain, diarrhea or melena Genitourinary Genitourinary ED: Denies dysuria or hematuria Musculoskeletal Musculoskeletal: Reports back pain and other Details: Neck sore ; Denies extremity pain Integumentary Denies abscess, Abrasions, laceration or rash Neurologic Neurologic: Reports as per HPI, headache(s), paresthesias, weakness and other Details: No new neurologic deficits ; Denies confusion EXAM Physical Exam Const Vital Signs: 12/30/21 16:31 12/30/21 17:15 Temperature 98.9 F Temperature Source Temporal Pulse Rate 78 Respiratory Rate 16 Respiratory Effort Normal Non-Labored Respiratory Pattern Normal Blood Pressure 134/78 H Blood Pressure Mean 96 Pulse Ox 98 Oxygen Delivery Method Room Air Positive well nourished and well developed General Appearance ED: well developed and NAD HEENT Reports nasal mucous membranes and turbinates normal HEENT Narrative: Tender occiput no crepitance, depression, boggy hematoma, or evidence of trauma. Patient winces in pain. atraumatic Face and Sinus: Negative for facial tenderness Eyes PERRL and EOMs intact bilaterally Visual Acuity: other Other Details: no entrapment or pain with extraocular movements Neck full ROM and supple Neck Narrative: No midline tenderness, no paraspinal tenderness, full range of motion. General: Negative for tenderness Chest Wall inspection of chest normal and palpation of chest normal Chest: symmetrical chest wall rise; Negative for crepitus or tenderness Resp normal respiratory effort and clear to auscultation bilaterally Percussion: other equal BS bilat Cardio no murmurs Rate: regular rate Rhythm: regular rhythm GI normal to inspection, nondistended, normoactive bowel sounds, soft to palpation and non-tender Back/Spine normal ROM Back/Spine Narrative: Diffuse lumbar spine tenderness mostly at the upper area of it. No step-off. No outward signs of trauma externally. Mildly tender insertion site of her bladder stimulator very distal and right of this, below the level of the pelvic brim, no signs of erythema well-healed surgical incision. Cervical Spine: Negative for cervical spine tenderness Thoracic Spine / Upper Back: Negative for thoracic spinal tenderness Lumbar Spine / Lower Back: lumbar spinal tenderness Extremity normal to inspection and full ROM General Extremety ED: Negative for tenderness Neuro oriented x3, CN's II-XII intact bilaterally, moves all extremities and no focal motor deficits Neuro Narrative: Decreased sensation left lower extremity Desmond Coma Scale: document GCS findings Spontaneous Obeys Commands Oriented 15 Sensorium / Orientation: awake and alert Psych mental status grossly normal and thought process normal Skin no wounds Lesions: no lesions Rashes: no rashes MDM MDM MDM Narrative Medical decision making narrative: Ill think this patient needs any imaging of her neck. I imaged her head and her low back, CT is negative, 3 view lumbosacral spine films negative on my interpretation, radiology in agreement. I do not think she injured a spinal stimulator but she will have to determine this based on how it functions of different than before her fall. If so recommend outpatient follow-up, supportive care advised. Radiography Diagnostic Testing: Clinical Impression(s) from Imaging Studies Brain CT 12/30/21 17:31 IMPRESSION: Normal unenhanced CT scan of the brain. Electronically Signed: Chantel Borjas MD at 17:58 EDT Reading Location ID and State: Francie Amezquita MD Tel , Service support , Lumbar Spine X-Ray 12/30/21 17:45 IMPRESSION: No acute findings. No change from prior. Electronically Signed: Chantel Borjas MD at 18:01 EDT Reading Location ID and State: Francie Amezquita MD Tel , Service support , Discharge Plan Triage Chief Complaint: Fall ED Provider: Iain Marcelo Dx/Rx/DC Orders Clinical Impression: Closed head injury without loss of consciousness, Contusion of lower back, Accidental fall Instructions: ED Head Injury (Adult) Prescriptions: No Action topiramate 200 mg tablet 200 mg PO QHS carbamazepine 200 mg tablet 200 mg PO BID Label Comments: 1 Tab AM & 2 PM duloxetine 30 mg capsule,delayed release(DR/EC) 90 mg PO QHS aripiprazole [Abilify] 30 mg tablet 10 mg PO DAILY baclofen 10 mg tablet 10 mg PO TID quetiapine [Seroquel] 100 mg tablet 200 mg PO QHS sumatriptan succinate 50 mg tablet See Rx Instructions PO .COMPLEX Qty: 14 2RF Rx Instructions: take 1 tab at onset of headache; if no relief may repeat 1 tab after at least 2 hrs; max = 4 tabs/24 hr PO benzonatate 200 mg capsule 200 mg PO TID PRN (Reason: cough) Qty: 180 2RF ondansetron 4 mg tablet,disintegrating 8 mg PO Q8H PRN PRN (Reason: Nausea) Qty: 90 2RF hydrocodone-acetaminophen 5-325 mg tablet 1 tab PO BID trazodone 100 mg tablet 300 mg PO QHS gabapentin 600 mg tablet 600 mg PO TID hydroxyzine pamoate 25 mg capsule 50 mg PO TID PRN (Reason: Anxiety) prazosin 5 MG capsule 5 mg PO QHS pantoprazole 40 mg tablet,delayed release (DR/EC) 40 mg PO DAILY Qty: 30 0RF oxycodone-acetaminophen 1 TABLET tablet 2 tab PO Q8H PRN PRN (Reason: Pain) 3 Days Qty: 12 0RF sulfamethoxazole-trimethoprim [sulfamethoxazole-trimethoprim] 800-160 mg tablet 1 tab PO BID 3 Days Qty: 6 0RF oxycodone-acetaminophen [oxycodone-acetaminophen] 5-325 mg tablet 2 tab PO Q8H PRN PRN (Reason: Pain) 7 Days Qty: 20 0RF (DME) Handicap Placard See Rx Instructions .Route .MEDSUPPLY Qty: 1 0RF Rx Instructions: As directed, length of time 3 years epinephrine [EpiPen 2-Raymond] 0.3 mg/0.3 mL auto-injector 0.3 mg IM Q5-15M PRN (Reason: anaphylaxis) Qty: 2 3RF Rx Instructions: do not exceed 3 doses per episode simvastatin 20 mg tablet 20 mg PO QPM Qty: 90 2RF levetiracetam [Keppra] 500 mg tablet 500 mg PO BID Qty: 180 1RF (DME) Ultra-Light Rollator Misc See Rx Instructions .Route Qty: 1 0RF Rx Instructions: As directed promethazine 25 mg tablet 25 mg PO BID PRN (Reason: nausea and vomiting) Qty: 60 1RF dicyclomine 10 mg capsule See Rx Instructions .ROUTE .COMPLEX Qty: 84 2RF Dose Instruction: TAKE 1 CAPSULE BY MOUTH THREE TIMES A DAY Rx Instructions: TAKE 1 CAPSULE BY MOUTH THREE TIMES A DAY Primary Care Provider: Gayle Munoz Referrals: Gayle Munoz MD [Primary Care Provider] - As Needed Disposition Disposition: Home, Self Care
--- NOTE | 2021-12-30 17:45 | RAD_ITS ---
STUDY: X-RAY - LUMBAR SPINE REASON FOR EXAM: Female, 46 years old. fall/injury TECHNIQUE: 2 view(s) of the lumbar spine were obtained. COMPARISON: 01/09/2019. FINDINGS: Normal lumbar lordosis. There is no substantial scoliosis. There is a normal alignment of the vertebrae. Normal vertebral body heights. Schmorl''s nodes at T12-L1, L1-2 and L2-3. Endplates are otherwise unremarkable. Anterior discectomy and fusion is again noted at L5-S1. Disc spaces are otherwise unremarkable. Neurostimulator unit is unchanged. Anterior discectomy The soft tissue structures are otherwise unremarkable. RAD/Lumbar Spine 2 or 3 Views IMPRESSION: No acute findings. No change from prior. Electronically Signed: Chantel Borjas MD at 18:01 EDT Reading Location ID and State: [id number] / Tel , Service support ,
[2021-12-30 18:04] VITALS: RESP 16
[2021-12-30] MEDS: Ibuprofen 600 MG Tablet PO (18:12)
== END 2021-12-30 18:14 | disposition home or self-care (01) ==
PROVIDERS: Emergency Provider Emergency Medicine; PCP Internal Medicine; Visit Provider Emergency Medicine
DX: S09.90XA Unspecified injury of head, initial encounter (principal); R56.9 Unspecified convulsions; S20.229A Contusion of unspecified back wall of thorax, initial encounter; F41.9 Anxiety disorder, unspecified; M51.16 Intervertebral disc disorders with radiculopathy, lumbar region; M79.7 Fibromyalgia; F32.9 Major depressive disorder, single episode, unspecified; K58.9 Irritable bowel syndrome, unspecified; M19.90 Unspecified osteoarthritis, unspecified site; F17.200 Nicotine dependence, unspecified, uncomplicated; Z78.0 Asymptomatic menopausal state; Z86.73 Personal history of transient ischemic attack (TIA), and cerebral infarction without residual deficits; Z99.3 Dependence on wheelchair; Z79.899 Other long term (current) drug therapy; W01.198A Fall on same level from slipping, tripping and stumbling with subsequent striking against other object, initial encounter; Y92.002 Bathroom of unspecified non-institutional (private) residence as the place of occurrence of the external cause
CPT/HCPCS: 70450; 72100; 99283

== ENCOUNTER 2022-02-02 17:00 | Emergency (ER) | payer MEDICAID, SELFPAY ==
[2022-02-02 17:02] VITALS: BP 116/63; PULSE 100; RESP 14; TEMP 36.8; O2SAT 97; BMI 34.4
--- NOTE | 2022-02-02 17:25 | EDS_ITS ---
HPI History of Present Illness Chief Complaint: Chest Pain Informant: patient Onset/Context/Timing Onset: Yesterday Activity at onset: gradual Timing: Intermittent and Lasts (Few hours) Quality: Positive for Sharp Location: Right Chest Worsened By: Eating Relieved By: Nothing Associated Symptoms: Positive for Nausea and Vomiting; Negative for Diaphoresis, Dyspnea, Cough, Fever, Lightheadedness, Acid Reflux or Palpitations Narrative Narrative: Patient presents with right-sided chest pain that began yesterday. Patient states it is intermittent. Patient states it last for a few hours when it comes on. Patient describes her pain as sharp. Patient states it is over the right side of her chest and right upper quadrant of her abdomen. Patient states it is worse with eating. Patient admits to some nausea and vomiting. Patient denies any cough or fevers. Patient denies any shortness of breath or diaphoresis. CVD Risk Factors: Positive for Smoking; Negative for Hypertension, Diabetes, Hypercholesterolemia or Family History 1' </=55 PE Risk Factors: Positive for Recent Travel/Surgery; Negative for Recent Immobilization, Prior DVT or PE, Cancer or OCP + Smoking + >/=35 PFSH PFSH Medical History Abdominal pain Acute cystitis Anxiety Arthritis Back pain Back problem Lamar's palsy Blurry vision, left eye Carpal tunnel syndrome Cellulitis Cervical cancer Chronic lumbar radiculopathy Colon polyp Debility Depression Difficulty chewing Dizziness Elevated antinuclear antibody (PAT) level Elevated blood pressure reading Fall Fatty liver Fibromyalgia Flu vaccine need Foot pain, left Gastric reflux Gastrointestinal problem GI bleed Headache Health care maintenance Hearing problem Hematuria History of IBS Hives Hx of emotional problems Hypokalemia Injury of head and neck Insect bite Interstitial cystitis Irritable bowel syndrome Kidney stones Lipoma Lupus Neuropathy Osteoarthritis Physical debility Positive P-ANCA titer Post-menopausal Seasonal allergies Seizures Seizures Sludge in gallbladder Smoker Stroke Ulcer Uterine cancer UTI (urinary tract infection) Wheel chair as ambulatory aid Wheelchair dependent Home Medications topiramate 200 mg tablet 200 mg PO QHS headaches 08/15/18 [History Last Taken Unknown] duloxetine 30 mg capsule,delayed release 90 mg PO QHS depression 06/09/19 [History Last Taken Unknown] prazosin 5 mg capsule 5 mg PO QHS 09/17/19 [History Last Taken Unknown] trazodone 100 mg tablet 300 mg PO QHS sleep 10/28/19 [History Last Taken Unknown] carbamazepine 200 mg tablet 200 mg PO BID seizures 03/22/20 [History Last Taken 12/08/21] gabapentin 600 mg tablet 600 mg PO TID nerve pain 03/22/20 [History Last Taken 12/08/21] hydroxyzine pamoate 25 mg capsule 50 mg PO TID PRN Anxiety 03/22/20 [History Last Taken Unknown] Handicap Placard #1 ea 05/03/20 [Rx Last Taken Unknown] aripiprazole 30 mg tablet (Abilify) 10 mg PO DAILY 01/07/21 [History Last Taken Unknown] baclofen 10 mg tablet 10 mg PO TID 03/23/21 [History Last Taken 12/08/21] pantoprazole 40 mg tablet,delayed release 40 mg PO DAILY #30 tabs 07/18/21 [Rx Last Taken Unknown] hydrocodone-acetaminophen 5-325mg 5mg-325mg 1 tab PO BID 08/02/21 [History Last Taken 12/08/21] simvastatin 20 mg tablet 20 mg PO QPM #90 tabs 08/08/21 [Rx Last Taken Unknown] ondansetron 4 mg disintegrating tablet 8 mg PO Q8H PRN PRN Nausea #90 tabs 08/30/21 [Rx Last Taken Unknown] levetiracetam 500 mg tablet (Keppra) 500 mg PO BID #180 tabs 08/31/21 [Rx Last Taken 12/08/21] oxycodone-acetaminophen 5 mg-325 mg tablet 2 tab PO Q8H PRN PRN Pain 3 days #12 tabs 09/15/21 [Rx Last Taken Unknown] remington (Ultra-Light Rollator misc) #1 ea 09/26/21 [Rx Last Taken Unknown] promethazine 25 mg tablet 25 mg PO BID PRN nausea and vomiting #60 tabs 10/13/21 [Rx Last Taken Unknown] oxycodone-acetaminophen 5 mg-325 mg tablet 2 tab PO Q8H PRN PRN Pain 7 days #20 tabs 12/08/21 [Rx Last Taken Unknown] dicyclomine 10 mg capsule See Rx Instructions .Route .COMPLEX #84 caps 12/27/21 [Rx Last Taken Unknown] benzonatate 200 mg capsule 200 mg PO TID PRN cough #180 caps 01/02/22 [Rx Last Taken Unknown] epinephrine 0.3 mg/0.3 mL injection, auto-injector (EpiPen 2-Raymond) 0.3 mg (0.3 mL) IM Q5-15M PRN anaphylaxis #2 ea 01/02/22 [Rx Last Taken Unknown] quetiapine 300 mg tablet (Seroquel) 300 mg PO DAILY 01/02/22 [History Last Taken Unknown] sumatriptan succinate 50 mg tablet See Rx Instructions PO .COMPLEX #14 tabs 01/30/22 [Rx Last Taken Unknown] Allergy/AdvReac Type Severity Reaction Status Date / Time venom-honey bee Allergy Severe severe Verified 02/02/22 17:02 venom-wasp Allergy Severe severe Verified 02/02/22 17:02 ciprofloxacin [From Cipro] Allergy Rash Verified 02/02/22 17:02 erythromycin base Allergy Anaphylaxis Verified 02/02/22 17:02 iodine Allergy Anaphylaxis Verified 02/02/22 17:02 latex Allergy Rash Verified 02/02/22 17:02 metronidazole [From Flagyl] Allergy Anaphylaxis Verified 02/02/22 17:02 naproxen [From Naprosyn] Allergy Anaphylaxis Verified 02/02/22 17:02 Penicillins Allergy Anaphylaxis Verified 02/02/22 17:02 shellfish derived Allergy Anaphylaxis Verified 02/02/22 17:02 adhesive AdvReac Mild BLISTERS Verified 02/02/22 17:02 sulfamethoxazole AdvReac Hives Verified 02/02/22 17:02 [From Bactrim] trimethoprim [From Bactrim] AdvReac Hives Verified 02/02/22 17:02 BACTRIM Allergy Intermediate VOMITING Uncoded 02/02/22 17:02 HIVES ITCHING Family History Father Asthma Grandfather No problems noted. Grandmother Asthma Brother Lung cancer Diabetes Hypertension Grandfather Asthma Grandmother Asthma Hypertension Mother Diabetes Aunt Diabetes Son Seizures Asthma Surgical History History of appendectomy History of bladder repair surgery History of carpal tunnel surgery of right wrist History of colonoscopy History of esophagogastroduodenoscopy (EGD) History of hysterectomy History of orthopedic surgery History of spinal surgery Hx of repair of right rotator cuff Hx of surgical procedure Hx of surgical procedure S/P left knee surgery S/P umbilical hernia repair, follow-up exam Status post left foot surgery Social History Smoking Status: Light Smoker (<10/day) alcohol intake: never substance use type: does not use what type of physical activity do you participate in: none ROS ROS ED Constitutional Constitutional ED: Denies chills or fever(s) Eyes Eyes: Denies blurry vision or change in vision ENT ENT ED: Reports sore throat; Denies rhinorrhea Cardiovascular Cardiovascular: Reports chest pain; Denies palpitations Respiratory/Chest Respiratory/Chest: Denies cough or dyspnea Gastrointestinal Gastrointestinal: Reports nausea and vomiting; Denies abdominal pain Genitourinary Genitourinary ED: Denies dysuria or hematuria Musculoskeletal Musculoskeletal: Reports back pain; Denies neck pain Integumentary Denies abscess or rash Neurologic Neurologic: Denies headache(s) or weakness Allergic/Immunologic Allergic/Immunologic ED: Denies mouth swelling or urticaria EXAM Physical Exam Const Vital Signs: 02/02/22 17:02 02/02/22 19:01 Temperature 98.2 F Temperature Source Temporal Pulse Rate 100 80 Respiratory Rate 14 15 Blood Pressure 116/63 114/56 L Blood Pressure Mean 80 75 Pulse Ox 97 98 Oxygen Delivery Method Room Air Room Air Positive well nourished, well developed and obese General Appearance ED: well developed and NAD Nutritional Appearance: obese HEENT normocephalic and atraumatic Eyes PERRL and EOMs intact bilaterally Neck supple and no JVD Chest Wall palpation of chest normal Resp normal respiratory effort and clear to auscultation bilaterally Effort and Inspection: Negative for respiratory distress Cardio regular rate, regular rhythm and no murmurs GI normal to inspection, nondistended, normoactive bowel sounds, soft to palpation and non-distended Palpation: tender RUQ and Greenberg's sign; Negative for guarding or rebound tenderness present Extremity normal to inspection General Extremety ED: Negative for edema or tenderness General Extremity: Negative for edema Neuro oriented x3, CN's II-XII intact bilaterally and no sensory deficits noted Sensorium / Orientation: awake and alert Motor Exam: strength 5/5 throughout Psych mental status grossly normal MDM MDM MDM Narrative Medical decision making narrative: Patient was given IV fluids, morphine, and Zofran. EKG was obtained. On my interpretation, it showed a normal sinus rhythm with a rate of 72. NV interval, QRS interval, and QTc intervals were all normal. [place] was normal. There are no acute ST or T wave changes. CBC was essentially within normal limits. Comprehensive metabolic profile was within normal limits. High-sensitivity troponin was normal. Lipase was normal. Qualitative hCG was obtained and was positive. Because of this, quantitative hCG was obtained and came back at 6. On reevaluation, patient stated she did have a hysterectomy in the past. Urinalysis was obtained. There is no evidence of hematuria or urinary tract infection. Right upper quadrant ultrasound was obtained. There is negative sonographic Greenberg sign. There is no pericholecystic fluid. There is no evidence of acute cholecystitis. Patient was advised of her findings. Patient was instructed to eat a bland diet. Patient was instructed to follow-up with her primary care physician in 5 to 7 days. Patient understood and was agreeable with the plan. All questions were answered. Lab Data Attestation: I reviewed the patient's lab results. Labs: Laboratory Results - last 24 hr 02/02/22 02/02/22 02/02/22 17:44 17:44 17:44 WBC 5.2 RBC 3.37 L Hgb 11.7 L Hct 34.2 L MCV 101.5 H MCH 34.7 H MCHC 34.2 RDW Std Deviation 47.9 H RDW Coeff of Karina 13.0 Plt Count 156 MPV 11.5 Immature Gran % (Auto) 0.200 Neut % (Auto) 56.3 Lymph % (Auto) 34.2 [place] % (Auto) 5.8 Eos % (Auto) 2.9 Baso % (Auto) 0.6 Absolute Neuts (auto) 2.9 Absolute Lymphs (auto) 1.78 Nucleated RBC % 0 Sodium 141 Potassium 3.3 L Chloride 110 H Carbon Dioxide 27.0 Anion Gap 4 L BUN 10 Creatinine 0.72 Estim Creat Clear Calc 95.95 Est GFR (MDRD) Af Amer 113 Est GFR (MDRD) Non-Af 93 BUN/Creatinine Ratio 13.9 Glucose 108 H Calcium 8.2 L Total Bilirubin 0.10 L AST 14 L ALT 14 Alkaline Phosphatase 124 H Troponin I High Sens 4 Total Protein 6.9 Albumin 3.2 Globulin 3.7 Albumin/Globulin Ratio 0.9 Lipase 89 HCG, Quant Serum , Qual P Urine Color Urine Clarity Urine pH Ur Specific [place] Urine Protein Urine Glucose (UA) Urine Ketones Urine Occult Blood Urine Nitrite Urine Bilirubin Urine Urobilinogen Ur Leukocyte Esterase Urine RBC Urine WBC Ur Squamous Epith Cells Urine Bacteria Urine Mucus 02/02/22 02/02/22 17:44 18:38 WBC RBC Hgb Hct MCV MCH MCHC RDW Std Deviation RDW Coeff of Karina Plt Count MPV Immature Gran % (Auto) Neut % (Auto) Lymph % (Auto) [place] % (Auto) Eos % (Auto) Baso % (Auto) Absolute Neuts (auto) Absolute Lymphs (auto) Nucleated RBC % Sodium Potassium Chloride Carbon Dioxide Anion Gap BUN Creatinine Estim Creat Clear Calc Est GFR (MDRD) Af Amer Est GFR (MDRD) Non-Af BUN/Creatinine Ratio Glucose Calcium Total Bilirubin AST ALT Alkaline Phosphatase Troponin I High Sens Total Protein Albumin Globulin Albumin/Globulin Ratio Lipase HCG, Quant 6 H Serum , Qual Urine Color Yellow Urine Clarity Clear Urine pH 7.0 Ur Specific [place] 1.010 Urine Protein Negative Urine Glucose (UA) Normal Urine Ketones Negative Urine Occult Blood Negative Urine Nitrite Negative Urine Bilirubin Negative Urine Urobilinogen Normal Ur Leukocyte Esterase Negative Urine RBC 0 SEEN Urine WBC 0 SEEN Ur Squamous Epith Cells 0 SEEN Urine Bacteria 0 SEEN Urine Mucus 0 SEEN Radiography Diagnostic Testing: Clinical Impression(s) from Imaging Studies Gallbladder Ultrasound 02/02/22 17:30 IMPRESSION: No acute findings. Note: Renal size measurements and size measurements of other organs etc may vary depending on modality and duplicator punch operator dependent variations in measurements. (i.e. Measuring a kidney on an US does not correlate with an exact same measurement on a CT.) Electronically Signed: Sylvain Johnson MD at 18:21 EDT , EKG Initial EKG: Attestation: I personally reviewed and interpreted this EKG as follows: Interpretation: Sinus Rhythm (72) and No Acute Injury Pattern Prior EKG tracings: available for review Prior: Unchanged (08/16/2020) Discharge Plan Triage Chief Complaint: Chest Pain ED Provider: Valerio Rhodes Dx/Rx/DC Orders Clinical Impression: Right upper quadrant abdominal pain, Right-sided chest pain Instructions: ED Abdominal Pain Unkn Cause Fem, ED Chest Pain, Uncertain Cause Prescriptions: No Action topiramate 200 mg tablet 200 mg PO QHS carbamazepine 200 mg tablet 200 mg PO BID Label Comments: 1 Tab AM & 2 PM duloxetine 30 mg capsule,delayed release(DR/EC) 90 mg PO QHS aripiprazole [Abilify] 30 mg tablet 10 mg PO DAILY baclofen 10 mg tablet 10 mg PO TID ondansetron 4 mg tablet,disintegrating 8 mg PO Q8H PRN PRN (Reason: Nausea) Qty: 90 2RF hydrocodone-acetaminophen 5-325 mg tablet 1 tab PO BID quetiapine [Seroquel] 300 mg tablet 300 mg PO DAILY epinephrine [EpiPen 2-Raymond] 0.3 mg/0.3 mL auto-injector 0.3 mg IM Q5-15M PRN (Reason: anaphylaxis) Qty: 2 3RF Rx Instructions: do not exceed 3 doses per episode benzonatate 200 mg capsule 200 mg PO TID PRN (Reason: cough) Qty: 180 2RF trazodone 100 mg tablet 300 mg PO QHS gabapentin 600 mg tablet 600 mg PO TID hydroxyzine pamoate 25 mg capsule 50 mg PO TID PRN (Reason: Anxiety) prazosin 5 MG capsule 5 mg PO QHS pantoprazole 40 mg tablet,delayed release (DR/EC) 40 mg PO DAILY Qty: 30 0RF oxycodone-acetaminophen 1 TABLET tablet 2 tab PO Q8H PRN PRN (Reason: Pain) 3 Days Qty: 12 0RF oxycodone-acetaminophen [oxycodone-acetaminophen] 5-325 mg tablet 2 tab PO Q8H PRN PRN (Reason: Pain) 7 Days Qty: 20 0RF (DME) Handicap Placard See Rx Instructions .Route .MEDSUPPLY Qty: 1 0RF Rx Instructions: As directed, length of time 3 years simvastatin 20 mg tablet 20 mg PO QPM Qty: 90 2RF levetiracetam [Keppra] 500 mg tablet 500 mg PO BID Qty: 180 1RF (DME) Ultra-Light Rollator Misc See Rx Instructions .Route Qty: 1 0RF Rx Instructions: As directed promethazine 25 mg tablet 25 mg PO BID PRN (Reason: nausea and vomiting) Qty: 60 1RF dicyclomine 10 mg capsule See Rx Instructions .ROUTE .COMPLEX Qty: 84 2RF Dose Instruction: TAKE 1 CAPSULE BY MOUTH THREE TIMES A DAY Rx Instructions: TAKE 1 CAPSULE BY MOUTH THREE TIMES A DAY sumatriptan succinate 50 mg tablet See Rx Instructions PO .COMPLEX Qty: 14 2RF Rx Instructions: take 1 tab at onset of headache; if no relief may repeat 1 tab after at least 2 hrs; max = 4 tabs/24 hr PO Primary Care Provider: Gayle Munoz Referrals: Gayle Munoz MD [Primary Care Provider] - 5-7 Days Disposition Disposition: Home, Self Care
--- NOTE | 2022-02-02 17:30 | US_ITS ---
STUDY: ABDOMINAL ULTRASOUND - RIGHT UPPER QUADRANT REASON FOR VISIT: Female, 46 years old. ABDOMEN PAIN PAIN-ABD RUQ TECHNIQUE: Ultrasound evaluation of the right upper quadrant was performed with real-time and static negron-scale imaging. TECHNICAL QUALITY: Adequate. COMPARISON: None FINDINGS: Liver: There is normal echogenicity of the liver. The bile ducts are within normal limits. There is hepatic color flow. The direction of portal flow is hepatopetal. There is no demonstrated mass lesion. Gallbladder: There is a contracted gallbladder. The gallbladder wall measures 3 mm. There is a negative sonographic Greenberg''s sign. There is no pericholecystic fluid. There are no gallstones. Common Bile Duct (C.B.D.): The common bile duct measures ( in mm): 3 Pancreas: Normal size of the head, body of the pancreas. There is normal echogenicity of the pancreas. There is no demonstrated pancreatic mass or cyst. Right Kidney: Normal size of the right kidney. The right kidney measures 11.6 cm. . Normal renal cortex. There is no demonstrated renal mass or cyst. There is no right hydronephrosis. Aorta: It is not visualized. There is too much overlying bowel gas. . US/Gallbladder IMPRESSION: No acute findings. Note: Renal size measurements and size measurements of other organs etc may vary depending on modality and coning machine operator dependent variations in measurements. (i.e. Measuring a kidney on an US does not correlate with an exact same measurement on a CT.) Electronically Signed: Sylvain Johnson MD at 18:21 EDT ,
--- NOTE | 2022-02-02 17:31 | EKG12_ITS ---
Test Reason : RIB PAIN Blood Pressure : / mmHG Vent. Rate : 072 BPM Atrial Rate : 072 BPM P-R Int : 188 ms QRS Dur : 090 ms QT Int : 382 ms P-R-T Axes : 038 046 035 degrees QTc Int : 418 ms Normal sinus rhythm Normal ECG Confirmed by VONDA PLUNKETT, ILANA ([id number]), editor in chief newspaper [employer] ([id number]) on 02/03/2022 8:33:28 AM Referred By: Confirmed By:ILANA FERRARI MD
[2022-02-02] MEDS: Ondansetron 4 MG/2 ML Vial IV (17:39)
[2022-02-02] MEDS: Morphine 4 MG/ML Syringe IV (17:39)
[2022-02-02] MEDS: 0.9% Normal Saline 1,000 ML 1000 ML IV (17:40)
[2022-02-02 18:07] LABS: Absolute Lymphocyte Count 1.78 X10^3/uL (0.83-4.51); Absolute Neutrophil Count 2.9 X10^3/uL (2.0-7.7); Basophil# 0.03 X10^3/uL; Basophil% 0.6 % (0-1); Eosinophil# 0.15 X10^3/uL; Eosinophils% 2.9 % (0-5); Hematocrit 34.2 % (37-47); Hemoglobin 11.7 g/dL (12.0-15.0); Lymphocyte # 1.78 X10^3/ul (0.83-4.51); Lymphocyte % 34.2 % (19-41); Mean Corp Hgb Conc 34.2 g/dL (32-36); Mean Corpuscular Hgb 34.7 pg (27.0-32.0); Mean Corpuscular Volume 101.5 fL (81-99); Mean Platelet Vol. 11.5 fl (6.2-12.0); Monocyte% 5.8 % (0-10); NRBC Flagged by Analyzer 0 % (0-5); Neutrophil # 2.93 X10^3/uL (2.7-7.7); Neutrophil % 56.3 % (47-70); Platelet Count 156 K/mm3 (150-450); RBC Distribution Width SD 47.9 fl (35.1-43.9); Red Blood Count 3.37 M/mm3 (4.2-5.4); White Blood Count 5.2 K/mm3 (4.4-11.0)
[2022-02-02 18:29] LABS: ALB/GLOB Ratio 0.9 RATIO (0.9-2.4); AST(SGOT) 14 U/L (15-37); Alanine Aminotransfer ALT/SGPT 14 U/L (13-56); Albumin, Serum 3.2 g/dL (3.2-5.0); Alkaline Phosphatase 124 U/L (45-117); Anion Gap 4 (5-15); BUN 10 mg/dL (7-18); BUN/Creat Ratio 13.9 RATIO (10-20); Calcium,Total 8.2 mg/dL (8.5-10.1); Chloride 110 mmol/L (98-107); Creatinine, Serum 0.72 mg/dL (0.55-1.02); EST Glomerular Filtration Rate 93 mL/min (>60); Est Glom Filt Rate - Afr Amer 113 mL/min (>60); Estimated Creatinine Clearance 95.95 ml/min; Globulin 3.7 g/dL (2.2-4.2); Glucose 108 mg/dL (74-106); Lipase 89 U/L (73-393); Potassium 3.3 mmol/L (3.5-5.1); Protein, Total 6.9 g/dL (6.4-8.2); Sodium Level 141 mmol/L (136-145); Troponin-I HS 4 pg/mL (3.0-54.0)
[2022-02-02 18:30] LABS: Internal QC Validated? YES +Cl - CLEAR BKGD; Pregnancy, Serum, hCG Quali. P Negative
[2022-02-02 18:45] LABS: Bacteria 0 SEEN /hpf (None Seen); Mucous, Urine 0 SEEN /hpf (<or=2+); Red Blood Cells-Urine 0 SEEN /hpf (0-5); Squamous Epithelial Cells - UA 0 SEEN /hpf (5-10); White Blood Cells 0 SEEN /hpf (0-5)
[2022-02-02 19:00] LABS: Color, Urine Yellow (Yellow); Glucose, Dipstick Normal (Normal); Ketone-Dipstick Negative (Negative); Leukocyte Esterase-Dipstick Negative /ul (Negative); Nitrite-Dipstick Negative (Negative); Occult Blood-Urine Negative /ul (Negative); Protein-Dipstick Negative (Negative); Urine Bilirubin Dipstick Negative (Negative); Urine Clarity Clear (Clear); Urine Urobilinogen Normal (Normal)
[2022-02-02 19:01] VITALS: BP 114/56; PULSE 80; RESP 15; O2SAT 98
[2022-02-02 19:03] LABS: hCG Titer Quant., Serum 6 mIU/mL (1-3)
== END 2022-02-02 20:00 | disposition home or self-care (01) ==
PROVIDERS: Emergency Provider Emergency Medicine; PCP Internal Medicine; Visit Provider Emergency Medicine
DX: R10.11 Right upper quadrant pain (principal); R07.9 Chest pain, unspecified; F17.200 Nicotine dependence, unspecified, uncomplicated; E66.9 Obesity, unspecified
CPT/HCPCS: 76705; 80053; 81001; 83690; 84484; 84702; 84703; 85025; 93005; 96361; 96374; 96375; 99283; J7030; A4216; J2405

== ENCOUNTER → 2022-04-14 | Outpatient (CLI) | payer MEDICAID, SELFPAY | END | disposition home or self-care (01) | PROVIDERS: PCP Internal Medicine; Visit Provider Physician Assistant | DX: R05.9 Cough, unspecified (principal) | CPT/HCPCS: 87635; U0003; U0005 ==

== ENCOUNTER 2022-05-07 17:19 | Emergency (ER) | payer MEDICAID, SELFPAY ==
[2022-05-07 17:21] VITALS: BP 116/63; PULSE 94; RESP 16; TEMP 36.4; O2SAT 97; BMI 31.4
--- NOTE | 2022-05-07 17:43 | RAD_ITS ---
INDICATION: injury EXAMINATION/TECHNIQUE: X-RAY - XR Spine Thoracic 2 Views COMPARISON: 07/13/2021 FINDINGS: VERTEBRAE: Preserved vertebral body height. No fracture. No spondylolisthesis. Preservation of the normal thoracic kyphosis. Mild multilevel facet arthropathy. Intrathecal stimulator seen. DISCS: Mild multilevel degenerative disc disease and spondylosis. INCLUDED CHEST/ABDOMEN: No acute abnormalities. RAD/Thoracic Spine 2 Views IMPRESSION: No evidence of thoracic spinal fracture or spondylolisthesis. Mild multilevel degenerative disc disease and spondylosis. Electronically Signed: Janes Joseph MD at 19:34 EST ,
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
[2022-05-07] MEDS: HYDROmorphone 1 MG/ML Syringe IM (17:54)
--- NOTE | 2022-05-07 18:13 | RAD_ITS ---
INDICATION: injury EXAMINATION/TECHNIQUE: X-RAY - XR Spine Lumbar 2 or 3 Views COMPARISON: 12/30/2021. FINDINGS: VERTEBRAE: Preserved vertebral body height. No fracture. No spondylolisthesis. Preservation of the normal lumbar lordosis. Mild to moderate multilevel facet arthropathy. There is anterior discectomy and fusion at L5-S1. DISCS: Mild to moderate multilevel degenerative disc disease and spondylosis. INCLUDED ABDOMEN: Included bowel gas pattern is non-obstructive. RAD/Lumbar Spine 2 or 3 Views IMPRESSION: No evidence of lumbar spinal fracture or spondylolisthesis. Mild to moderate multilevel degenerative disc disease and spondylosis. Electronically Signed: Janes Joseph MD at 19:17 EST ,
[2022-05-07] MEDS: HYDROmorphone 1 MG/ML Syringe IV (19:47)
== END 2022-05-07 20:03 | disposition home or self-care (01) ==
PROVIDERS: Emergency Provider Emergency Medicine; PCP Internal Medicine; Visit Provider Emergency Medicine
DX: S39.012A Strain of muscle, fascia and tendon of lower back, initial encounter (principal); F17.200 Nicotine dependence, unspecified, uncomplicated; K76.0 Fatty (change of) liver, not elsewhere classified; X58.XXXA Exposure to other specified factors, initial encounter
CPT/HCPCS: 72070; 72100; 96372; 96374; 99282

== ENCOUNTER 2022-05-09 10:46 | Emergency (ER) | payer MEDICAID, SELFPAY ==
[2022-05-09 10:47] VITALS: BP 115/71; PULSE 98; RESP 14; TEMP 36.6; O2SAT 97; BMI 31.6
--- NOTE | 2022-05-09 11:10 | ED.VIS.BACK ---
HPI History of Present Illness Chief Complaint: Back Informant: patient Onset/Context/Timing Onset: Days Narrative Narrative: Patient presents secondary to back pain. She has a history of chronic back pain. 2 days ago she was seen in the ER after injuring her back while trying to move furniture. She is already on [place] twice a day as well as baclofen. She did take a dose of ibuprofen this morning. Patient states the back pain seem to be worse in a few hours ago she had to crawl from the bathroom to her bedroom. There have been no new falls or injuries. She has chronic pain that goes on the left leg. She ambulates today with a cane. [facility] Medical History Abdominal pain Acute cystitis Anxiety Arthritis Back pain Back problem Lamar's palsy Blurry vision, left eye Carpal tunnel syndrome Cellulitis Cervical cancer Chronic lumbar radiculopathy Colon polyp Debility Depression Difficulty chewing Dizziness Elevated antinuclear antibody (PAT) level Elevated blood pressure reading Fall Fatty liver Fibromyalgia Flu vaccine need Foot pain, left Gastric reflux Gastrointestinal problem GI bleed Headache Health care maintenance Hearing problem Hematuria History of IBS Hives Hx of emotional problems Hypokalemia Injury of head and neck Insect bite Interstitial cystitis Irritable bowel syndrome Kidney stones Lipoma Lupus Neuropathy Osteoarthritis Physical debility Positive P-ANCA titer Post-menopausal Seasonal allergies Seizures Seizures Sludge in gallbladder Smoker Stroke Ulcer Uterine cancer UTI (urinary tract infection) Wheel chair as ambulatory aid Wheelchair dependent Home Medications topiramate 200 mg tablet 200 mg PO QHS headaches 08/15/18 [History Last Taken Unknown] duloxetine 30 mg capsule,delayed release 90 mg PO QHS depression 06/09/19 [History Last Taken Unknown] trazodone 100 mg tablet 300 mg PO QHS sleep 10/28/19 [History Last Taken Unknown] carbamazepine 200 mg tablet 200 mg PO BID seizures 03/22/20 [History Last Taken 12/08/21] gabapentin 600 mg tablet 600 mg PO TID nerve pain 03/22/20 [History Last Taken 12/08/21] hydroxyzine pamoate 25 mg capsule 50 mg PO TID PRN Anxiety 03/22/20 [History Last Taken Unknown] Handicap Placard #1 ea 05/03/20 [Rx Last Taken Unknown] baclofen 10 mg tablet 10 mg PO TID 03/23/21 [History Last Taken 12/08/21] remington (Ultra-Light Rollator misc) #1 ea 09/26/21 [Rx Last Taken Unknown] scopolamine base 1 mg over 3 days transdermal patch 1 patch transdermal Q3D PRN nausea and vomiting #10 ea 02/06/22 [Rx Last Taken Unknown] promethazine 25 mg tablet 25 mg PO BID PRN nausea and vomiting #60 tabs 02/07/22 [Rx Last Taken Unknown] quetiapine 300 mg tablet (Seroquel) 500 mg PO DAILY 02/22/22 [History Last Taken Unknown] dicyclomine 10 mg capsule See Rx Instructions .Route .COMPLEX #84 caps 03/15/22 [Rx Last Taken Unknown] pantoprazole 40 mg tablet,delayed release 40 mg PO DAILY #30 tabs 04/13/22 [Rx Last Taken Unknown] albuterol sulfate 90 mcg/actuation aerosol inhaler 1 - 2 puff inhalation Q6H PRN shortness of breath or wheezing #8.5 grams 04/14/22 [Rx Last Taken Unknown] benzonatate 200 mg capsule 200 mg PO TID PRN cough #90 caps 04/14/22 [Rx Last Taken Unknown] epinephrine 0.3 mg/0.3 mL injection, auto-injector (EpiPen 2-Raymond) 0.3 mg (0.3 mL) IM Q5-15M PRN anaphylaxis #2 ea 04/14/22 [Rx Last Taken Unknown] levetiracetam 500 mg tablet (Keppra) 500 mg PO BID #180 tabs 04/14/22 [Rx Last Taken Unknown] ondansetron 4 mg disintegrating tablet 8 mg PO Q8H PRN PRN Nausea #90 tabs 04/14/22 [Rx Last Taken Unknown] prazosin 5 mg capsule 2 mg PO QHS 04/14/22 [History Last Taken Unknown] simvastatin 20 mg tablet 20 mg PO QPM #90 tabs 04/14/22 [Rx Last Taken Unknown] sumatriptan succinate 50 mg tablet See Rx Instructions PO .COMPLEX #14 tabs 04/14/22 [Rx Last Taken Unknown] guaifenesin 400 mg tablet 400 mg PO TID PRN congestion #30 tabs 05/05/22 [Rx Last Taken Unknown] hydrocodone-acetaminophen 5-325mg 5mg-325mg 1 tab PO BID PRN pain 2 weeks #28 tabs 05/05/22 [Rx Last Taken Unknown] methylprednisolone 4 mg tablets in a dose pack (Medrol (Raymond)) See Rx Instructions PO PER PKG DIR #21 tabs 05/05/22 [Rx Last Taken Unknown] nicotine 7 mg/24 hr daily transdermal patch 1 patch transdermal Q24H #14 ea 05/05/22 [Rx Last Taken Unknown] lidocaine 5 % topical patch (Lidoderm) 1 patch topical DAILY #15 ea 05/09/22 [Rx Last Taken Unknown] Allergy/AdvReac Type Severity Reaction Status Date / Time venom-honey bee Allergy Severe severe Verified 05/09/22 10:46 venom-wasp Allergy Severe severe Verified 05/09/22 10:46 ciprofloxacin [From Cipro] Allergy Rash Verified 05/09/22 10:46 erythromycin base Allergy Anaphylaxis Verified 05/09/22 10:46 iodine Allergy Anaphylaxis Verified 05/09/22 10:46 latex Allergy Rash Verified 05/09/22 10:46 metronidazole [From Flagyl] Allergy Anaphylaxis Verified 05/09/22 10:46 naproxen [From Naprosyn] Allergy Anaphylaxis Verified 05/09/22 10:46 Penicillins Allergy Anaphylaxis Verified 05/09/22 10:46 shellfish derived Allergy Anaphylaxis Verified 05/09/22 10:46 adhesive AdvReac Mild BLISTERS Verified 05/09/22 10:46 sulfamethoxazole AdvReac Hives Verified 05/09/22 10:46 [From Bactrim] trimethoprim [From Bactrim] AdvReac Hives Verified 05/09/22 10:46 Family History Father Asthma Grandfather No problems noted. Grandmother Asthma Brother Lung cancer Diabetes Hypertension Grandfather Asthma Grandmother Asthma Hypertension Mother Diabetes Aunt Diabetes Son Seizures Asthma Surgical History History of appendectomy History of bladder repair surgery History of carpal tunnel surgery of right wrist History of colonoscopy History of esophagogastroduodenoscopy (EGD) History of hysterectomy History of orthopedic surgery History of spinal surgery Hx of repair of right rotator cuff Hx of surgical procedure Hx of surgical procedure S/P left knee surgery S/P umbilical hernia repair, follow-up exam Status post left foot surgery Social History Smoking Status: Light Smoker (<10/day) alcohol intake: never substance use type: does not use what type of physical activity do you participate in: none ROS ROS ED Constitutional Constitutional ED: Denies chills or fever(s) Eyes Eyes: Denies change in vision or discharge from eye(s) ENT ENT ED: Denies discharge from eye(s), rhinorrhea or sore throat Cardiovascular Cardiovascular: Denies chest pain or palpitations Respiratory/Chest Respiratory/Chest: Denies cough or dyspnea Gastrointestinal Gastrointestinal: Denies abdominal pain, diarrhea, nausea or vomiting Genitourinary Genitourinary ED: Denies dysuria Musculoskeletal Musculoskeletal: Reports back pain and extremity pain Integumentary Denies Abrasions or rash Neurologic Neurologic: Denies headache(s) or weakness Psychiatric Psychiatric: Reports anxiety; Denies depression Allergic/Immunologic Allergic/Immunologic ED: Denies lip swelling or urticaria EXAM Physical Exam Const Vital Signs: 05/09/22 10:47 Temperature 97.8 F Temperature Source Temporal Pulse Rate 98 Respiratory Rate 14 Blood Pressure 115/71 Blood Pressure Mean 85 Pulse Ox 97 Oxygen Delivery Method Room Air Positive well nourished and well developed General Appearance ED: well developed HEENT Reports normocephalic and head/scalp atraumatic Eyes PERRL and EOMs intact bilaterally Neck supple Chest Wall inspection of chest normal and palpation of chest normal Resp normal respiratory effort and clear to auscultation bilaterally Cardio regular rate and regular rhythm GI normal to inspection, nondistended, normoactive bowel sounds Palpation: soft Back/Spine Back/Spine Narrative: Diffuse tenderness throughout the thoracic and lumbar region. No focal tenderness. No erythema. Extremity normal to inspection Extremity Narrative: Strong distal pulses bilaterally. Neuro oriented x3 Neuro Narrative: Slow purposeful range of motion bilateral lower extremities. Good range of motion and strength. Sensorium / Orientation: alert Psych Mood & Affect: tearful Skin no rashes or lesions noted MDM MDM MDM Narrative Medical decision making narrative: I did review the patient's most recent PCP visit from May 05 as well as her ER visit on May 07. On the PCP office did give her prescription for [place] twice daily x2 weeks. They state that she had been dismissed from prior pain management office and they are attempting to refer her to a new physician. 2 days ago patient seen in the emergency room and had thoracic and lumbar x-rays obtained. These were unremarkable. Patient was treated with IM pain medication while here, but not given new prescriptions as she already had muscle relaxers and narcotics at home. Patient is had no new falls or injuries. I do not believe repeat imaging is needed at this time. She will be given IM Dilaudid for pain control as well as a Lidoderm patch. Treatment and Re-Evaluation Narrative: On repeat evaluation patient states her pain went from a 10 down to 8. She will be given a single dose of p.o. oxycodone here and prescription for Lidoderm patches to be sent to the pharmacy for her. She is to continue her [place] and baclofen at home. She is to follow-up with her PCP regarding referral for pain management. Discharge Plan Triage Chief Complaint: Back ED Provider: Lacy Walter Dx/Rx/DC Orders Clinical Impression: Back pain Instructions: ED Back Pain (Acute or Chronic) Prescriptions: New lidocaine [Lidoderm] 5 % adhesive patch,medicated 1 patch topical DAILY Qty: 15 0RF Rx Instructions: leave on most painful area for up to 12 hrs No Action topiramate 200 mg tablet 200 mg PO QHS carbamazepine 200 mg tablet 200 mg PO BID Label Comments: 1 Tab AM & 2 PM duloxetine 30 mg capsule,delayed release(DR/EC) 90 mg PO QHS baclofen 10 mg tablet 10 mg PO TID quetiapine [Seroquel] 300 mg tablet 500 mg PO DAILY epinephrine [EpiPen 2-Raymond] 0.3 mg/0.3 mL auto-injector 0.3 mg IM Q5-15M PRN (Reason: anaphylaxis) Qty: 2 3RF Rx Instructions: do not exceed 3 doses per episode levetiracetam [Keppra] 500 mg tablet 500 mg PO BID Qty: 180 0RF ondansetron 4 mg tablet,disintegrating 8 mg PO Q8H PRN PRN (Reason: Nausea) Qty: 90 0RF simvastatin 20 mg tablet 20 mg PO QPM Qty: 90 1RF sumatriptan succinate 50 mg tablet See Rx Instructions PO .COMPLEX Qty: 14 2RF Rx Instructions: take 1 tab at onset of headache; if no relief may repeat 1 tab after at least 2 hrs; max = 4 tabs/24 hr PO albuterol sulfate 90 mcg/actuation HFA aerosol inhaler 1 - 2 puff inhalation Q6H PRN (Reason: shortness of breath or wheezing) Qty: 8.5 0RF benzonatate 200 mg capsule 200 mg PO TID PRN (Reason: cough) Qty: 90 0RF hydrocodone-acetaminophen 5-325 mg tablet 1 tab PO BID PRN (Reason: pain) 14 Days Qty: 28 0RF guaifenesin 400 mg tablet 400 mg PO TID PRN (Reason: congestion) Qty: 30 1RF methylprednisolone [Medrol (Raymond)] 4 mg tablets,dose pack See Rx Instructions PO PER PKG DIR Qty: 21 0RF Rx Instructions: PO PER PKG DIR nicotine 7 mg/24 hr patch 24 hour 1 patch transdermal Q24H Qty: 14 1RF trazodone 100 mg tablet 300 mg PO QHS gabapentin 600 mg tablet 600 mg PO TID hydroxyzine pamoate 25 mg capsule 50 mg PO TID PRN (Reason: Anxiety) prazosin 5 mg capsule 2 mg PO QHS (DME) Handicap Placard See Rx Instructions .Route .MEDSUPPLY Qty: 1 0RF Rx Instructions: As directed, length of time 3 years (DME) Ultra-Light Rollator Misc See Rx Instructions .Route Qty: 1 0RF Rx Instructions: As directed scopolamine base 1 mg over 3 days patch 3 day 1 patch transdermal Q3D PRN (Reason: nausea and vomiting) Qty: 10 2RF promethazine 25 mg tablet 25 mg PO BID PRN (Reason: nausea and vomiting) Qty: 60 1RF dicyclomine 10 mg capsule See Rx Instructions .ROUTE .COMPLEX Qty: 84 2RF Dose Instruction: TAKE 1 CAPSULE BY MOUTH THREE TIMES A DAY Rx Instructions: TAKE 1 CAPSULE BY MOUTH THREE TIMES A DAY pantoprazole 40 mg tablet,delayed release (DR/EC) 40 mg PO DAILY Qty: 30 0RF Primary Care Provider: Gayle Munoz Referrals: Gayle Munoz MD [Primary Care Provider] - 5-7 Days Disposition Disposition: Home, Self Care
[2022-05-09] MEDS: HYDROmorphone 1 MG/ML Syringe 2 MG IM (11:20)
[2022-05-09] MEDS: Lidocaine 5% Patch 1 PATCH TOPICAL (11:21)
[2022-05-09] MEDS: oxyCODONE 5 MG Tablet PO (12:46)
[2022-05-09 12:50] VITALS: BP 118/68; PULSE 70; RESP 18; O2SAT 98
== END 2022-05-09 12:54 | disposition home or self-care (01) ==
PROVIDERS: Emergency Provider Emergency Medicine; PCP Internal Medicine; Visit Provider Emergency Medicine
DX: M54.9 Dorsalgia, unspecified (principal); G89.29 Other chronic pain; F17.200 Nicotine dependence, unspecified, uncomplicated; K76.0 Fatty (change of) liver, not elsewhere classified
CPT/HCPCS: 96372; 99283; A4216

== ENCOUNTER 2022-06-01 14:55 | Emergency (ER) | payer MEDICAID, SELFPAY ==
[2022-06-01 14:55] VITALS: BP 106/62; PULSE 95; RESP 18; TEMP 36.1; O2SAT 99; BMI 30.8
--- NOTE | 2022-06-01 15:07 | RAD_ITS ---
STUDY: X-RAY - THORACIC SPINE REASON FOR EXAM: Female, 46 years old. Back pain following a fall. TECHNIQUE: 3 view(s) of the thoracic spine were obtained. COMPARISON: None. FINDINGS: There is straightening of the normal thoracic kyphosis. There is no substantial scoliosis. There is demineralization of the thoracic spine with endplate spondylosis. There is multilevel disc space narrowing of the thoracic spine. Electrodes from a spinal cord stimulator device are seen. The distal tip is at the T7 level. RAD/Thoracic Spine 3 Views IMPRESSION: Multilevel spondylosis and disc space narrowing. Straightening of the normal thoracic kyphosis. Electronically Signed: Amado Bernardo MD at 15:38 EST ,
--- NOTE | 2022-06-01 15:08 | EX.ED.GENINJ ---
HPI History of Present Illness Chief Complaint: Fall Detail of Chief Complaint: Fall with back and 3 Informant: patient Narrative Narrative: Patient presents the emergency department after sustaining a fall about an hour ago. Patient states that she was in the shower and dropped a shampoo bottle which caused her to slip and fall out of the tub. She hit her back on the side of the tub. She did bump her head but no loss of consciousness. She is not on any blood thinners. Patient denies any chest pain or shortness of breath. She does have history of chronic back pain with degenerative disc disease and neuropathy with chronic pain into her left leg. Patient has been ambulatory since the fall. She had no vomiting. She denies neck pain. [facility] Medical History Abdominal pain Acute cystitis Anxiety Arthritis Back pain Back problem Lamar's palsy Blurry vision, left eye Carpal tunnel syndrome Cellulitis Cervical cancer Chronic lumbar radiculopathy Colon polyp Debility Depression Difficulty chewing Dizziness Elevated antinuclear antibody (PAT) level Elevated blood pressure reading Fall Fatty liver Fibromyalgia Flu vaccine need Foot pain, left Gastric reflux Gastrointestinal problem GI bleed Headache Health care maintenance Hearing problem Hematuria History of IBS Hives Hx of emotional problems Hypokalemia Injury of head and neck Insect bite Interstitial cystitis Irritable bowel syndrome Kidney stones Lipoma Lupus Neuropathy Osteoarthritis Physical debility Positive P-ANCA titer Post-menopausal Seasonal allergies Seizures Seizures Sludge in gallbladder Smoker Stroke Ulcer Uterine cancer UTI (urinary tract infection) Wheel chair as ambulatory aid Wheelchair dependent Home Medications topiramate 200 mg tablet 200 mg PO QHS headaches 08/15/18 [History Last Taken Unknown] duloxetine 30 mg capsule,delayed release 90 mg PO QHS depression 06/09/19 [History Last Taken Unknown] trazodone 100 mg tablet 300 mg PO QHS sleep 10/28/19 [History Last Taken Unknown] carbamazepine 200 mg tablet 200 mg PO BID seizures 03/22/20 [History Last Taken 12/08/21] gabapentin 600 mg tablet 600 mg PO TID nerve pain 03/22/20 [History Last Taken 12/08/21] hydroxyzine pamoate 25 mg capsule 50 mg PO TID PRN Anxiety 03/22/20 [History Last Taken Unknown] Handicap Placard #1 ea 05/03/20 [Rx Last Taken Unknown] baclofen 10 mg tablet 10 mg PO TID 03/23/21 [History Last Taken 12/08/21] remington (Ultra-Light Rollator misc) #1 ea 09/26/21 [Rx Last Taken Unknown] scopolamine base 1 mg over 3 days transdermal patch 1 patch transdermal Q3D PRN nausea and vomiting #10 ea 02/06/22 [Rx Last Taken Unknown] promethazine 25 mg tablet 25 mg PO BID PRN nausea and vomiting #60 tabs 02/07/22 [Rx Last Taken Unknown] quetiapine 300 mg tablet (Seroquel) 500 mg PO DAILY 02/22/22 [History Last Taken Unknown] dicyclomine 10 mg capsule See Rx Instructions .Route .COMPLEX #84 caps 03/15/22 [Rx Last Taken Unknown] albuterol sulfate 90 mcg/actuation aerosol inhaler 1 - 2 puff inhalation Q6H PRN shortness of breath or wheezing #8.5 grams 04/14/22 [Rx Last Taken Unknown] benzonatate 200 mg capsule 200 mg PO TID PRN cough #90 caps 04/14/22 [Rx Last Taken Unknown] epinephrine 0.3 mg/0.3 mL injection, auto-injector (EpiPen 2-Raymond) 0.3 mg (0.3 mL) IM Q5-15M PRN anaphylaxis #2 ea 04/14/22 [Rx Last Taken Unknown] levetiracetam 500 mg tablet (Keppra) 500 mg PO BID #180 tabs 04/14/22 [Rx Last Taken Unknown] ondansetron 4 mg disintegrating tablet 8 mg PO Q8H PRN PRN Nausea #90 tabs 04/14/22 [Rx Last Taken Unknown] prazosin 5 mg capsule 2 mg PO QHS 04/14/22 [History Last Taken Unknown] simvastatin 20 mg tablet 20 mg PO QPM #90 tabs 04/14/22 [Rx Last Taken Unknown] sumatriptan succinate 50 mg tablet See Rx Instructions PO .COMPLEX #14 tabs 04/14/22 [Rx Last Taken Unknown] guaifenesin 400 mg tablet 400 mg PO TID PRN congestion #30 tabs 05/05/22 [Rx Last Taken Unknown] methylprednisolone 4 mg tablets in a dose pack (Medrol (Raymond)) See Rx Instructions PO PER PKG DIR #21 tabs 05/05/22 [Rx Last Taken Unknown] nicotine 7 mg/24 hr daily transdermal patch 1 patch transdermal Q24H #14 ea 05/05/22 [Rx Last Taken Unknown] lidocaine 5 % topical patch (Lidoderm) 1 patch topical DAILY #15 ea 05/09/22 [Rx Last Taken Unknown] pantoprazole 40 mg tablet,delayed release 40 mg PO DAILY #30 tabs 05/10/22 [Rx Last Taken Unknown] hydrocodone-acetaminophen 5-325mg 5mg-325mg 1 tab PO Q4H PRN PRN Pain 2 days #10 TABLETS 06/01/22 [Rx Last Taken Unknown] Allergy/AdvReac Type Severity Reaction Status Date / Time venom-honey bee Allergy Severe severe Verified 06/01/22 15:11 venom-wasp Allergy Severe severe Verified 06/01/22 15:11 ciprofloxacin [From Cipro] Allergy Rash Verified 06/01/22 15:11 erythromycin base Allergy Anaphylaxis Verified 06/01/22 15:11 iodine Allergy Anaphylaxis Verified 06/01/22 15:11 latex Allergy Rash Verified 06/01/22 15:11 metronidazole [From Flagyl] Allergy Anaphylaxis Verified 06/01/22 15:11 naproxen [From Naprosyn] Allergy Anaphylaxis Verified 06/01/22 15:11 Penicillins Allergy Anaphylaxis Verified 06/01/22 15:11 shellfish derived Allergy Anaphylaxis Verified 06/01/22 15:11 adhesive AdvReac Mild BLISTERS Verified 06/01/22 15:11 sulfamethoxazole AdvReac Hives Verified 06/01/22 15:11 [From Bactrim] trimethoprim [From Bactrim] AdvReac Hives Verified 06/01/22 15:11 Family History Father Asthma Grandfather No problems noted. Grandmother Asthma Brother Lung cancer Diabetes Hypertension Grandfather Asthma Grandmother Asthma Hypertension Mother Diabetes Aunt Diabetes Son Seizures Asthma Surgical History History of appendectomy History of bladder repair surgery History of carpal tunnel surgery of right wrist History of colonoscopy History of esophagogastroduodenoscopy (EGD) History of hysterectomy History of orthopedic surgery History of spinal surgery Hx of repair of right rotator cuff Hx of surgical procedure Hx of surgical procedure S/P left knee surgery S/P umbilical hernia repair, follow-up exam Status post left foot surgery Social History Smoking Status: Current every day smoker tobacco type: cigarettes alcohol intake: never substance use type: does not use what type of physical activity do you participate in: none ROS ROS ED Review of Systems ROS Unobtainable: other Constitutional Constitutional ED: Reports lethargy; Denies chills, fever(s), sweats or weight loss Eyes Eyes: Denies blurry vision, change in vision or diplopia ENT ENT ED: Denies rhinorrhea or sore throat Cardiovascular Cardiovascular: Denies chest pain, orthopnea or racing heartbeat Respiratory/Chest Respiratory/Chest: Denies cough, dyspnea, dyspnea on exertion, orthopnea or sputum Gastrointestinal Gastrointestinal: Denies abdominal pain, diarrhea, nausea or vomiting Genitourinary Genitourinary ED: Denies dysuria, hematuria or urinary frequency Musculoskeletal Musculoskeletal: Reports back pain; Denies arthralgias, myalgias or neck pain Integumentary Denies abscess, Abrasions or rash Neurologic Neurologic: Denies headache(s) or weakness Psychiatric Psychiatric: Denies anxiety, depression or suicidal thoughts Endocrine Endocrinology: Denies polydipsia, polyphagia or polyuria Hematologic/Lymphatic Hematologic/Lymphatic: Denies easy bleeding, easy bruising or lymphadenopathy Allergic/Immunologic Allergic/Immunologic ED: Denies mouth swelling, tongue swelling or urticaria EXAM Physical Exam Const Vital Signs: 06/01/22 14:55 06/01/22 15:11 Temperature 96.9 F L Temperature Source Temporal Pulse Rate 95 Respiratory Rate 18 Respiratory Effort Normal Non-Labored Respiratory Depth Normal Respiratory Pattern Normal Blood Pressure 106/62 Blood Pressure Mean 76 Pulse Ox 99 Oxygen Delivery Method Room Air Room Air Positive well nourished and well developed General Appearance ED: well developed and NAD HEENT Reports TM's clear and moist mucous membranes normocephalic and atraumatic; Negative for trauma or tenderness Tympanic Membrane ED: Yes TM's clear Eyes PERRL and EOMs intact bilaterally General Eye ED: Negative for pale conjunctiva or scleral icterus Neck no lymphadenopathy, supple and no JVD General: Negative for tenderness Chest Wall inspection of chest normal and palpation of chest normal Chest: Negative for tenderness Resp normal respiratory effort and clear to auscultation bilaterally Effort and Inspection: Negative for respiratory distress or pain with movement Auscultation: Negative for rhonchi, wheezes or diminished lung sounds Cardio regular rate, regular rhythm, S1 normal heart sound, S2 normal heart sound and no murmurs Peripheral Pulses: pulses 2+ throughout GI normal to inspection, nondistended, normoactive bowel sounds, soft to palpation, non-tender, non-distended and no masses Back/Spine no CVA tenderness Back/Spine Narrative: Patient with tenderness over the mid thoracic spine as well as the lower lumbar spine diffusely. There is no ecchymosis or bruising noted. There is no soft tissue swelling noted. Negative straight leg raises. Deep tendon reflexes are plus 1 out of 4 bilaterally at the patella and Achilles. Patient has normal L5 extension bilaterally. Patient has normal sensation to light touch Extremity normal to inspection General Extremety ED: Negative for edema General Extremity: Negative for edema Neuro oriented x3, CN's II-XII intact bilaterally, no sensory deficits noted and gait normal Sensorium / Orientation: awake, alert, oriented to person, oriented to place and oriented to time Motor Exam: strength 5/5 throughout and strength abnormal Psych mental status grossly normal Skin no rashes or lesions noted and no wounds MDM MDM MDM Narrative Medical decision making narrative: On arrival patient was given 1 Braymer for pain. Patient had x-rays of the thoracic spine lumbar spine that showed no fractures. I do not feel any other imaging is indicated. Patient was ambulatory in the department. Patient will be given a prescription for few Braymer for pain and she has muscle relaxers at home. She is advised to follow-up with her primary care physician 5 to 7 days. Patient with a back contusion. Lab Data Attestation: I reviewed the patient's lab results. Radiography Diagnostic Testing: Clinical Impression(s) from Imaging Studies Thoracic Spine X-Ray 06/01/22 15:07 IMPRESSION: Multilevel spondylosis and disc space narrowing. Straightening of the normal thoracic kyphosis. Electronically Signed: Amado Bernardo MD at 15:38 EST , Lumbar Spine X-Ray 06/01/22 15:20 IMPRESSION: Stable examination. Electronically Signed: Amado Bernardo MD at 15:36 EST , 2 view x-rays of the thoracic spine obtained interpreted by myself as no acute fractures or dislocations. Radiology in agreement and they did note multilevel spondylosis and disc base narrowing. Three-view x-rays of the lumbar spine obtained interpreted by myself as no acute fractures or dislocations. Radiology was in agreement. Discharge Plan Triage Chief Complaint: Fall Other Complaint: Back ED Provider: Alona Campo Dx/Rx/DC Orders Clinical Impression: Back contusion, Closed head injury Instructions: ED Back Contusion, ED Head Injury (Adult) Prescriptions: New hydrocodone-acetaminophen [hydrocodone-acetaminophen] 5-325 mg tablet 1 tab PO Q4H PRN PRN (Reason: Pain) 2 Days Qty: 10 0RF No Action topiramate 200 mg tablet 200 mg PO QHS carbamazepine 200 mg tablet 200 mg PO BID Label Comments: 1 Tab AM & 2 PM duloxetine 30 mg capsule,delayed release(DR/EC) 90 mg PO QHS baclofen 10 mg tablet 10 mg PO TID quetiapine [Seroquel] 300 mg tablet 500 mg PO DAILY epinephrine [EpiPen 2-Raymond] 0.3 mg/0.3 mL auto-injector 0.3 mg IM Q5-15M PRN (Reason: anaphylaxis) Qty: 2 3RF Rx Instructions: do not exceed 3 doses per episode levetiracetam [Keppra] 500 mg tablet 500 mg PO BID Qty: 180 0RF ondansetron 4 mg tablet,disintegrating 8 mg PO Q8H PRN PRN (Reason: Nausea) Qty: 90 0RF simvastatin 20 mg tablet 20 mg PO QPM Qty: 90 1RF sumatriptan succinate 50 mg tablet See Rx Instructions PO .COMPLEX Qty: 14 2RF Rx Instructions: take 1 tab at onset of headache; if no relief may repeat 1 tab after at least 2 hrs; max = 4 tabs/24 hr PO albuterol sulfate 90 mcg/actuation HFA aerosol inhaler 1 - 2 puff inhalation Q6H PRN (Reason: shortness of breath or wheezing) Qty: 8.5 0RF benzonatate 200 mg capsule 200 mg PO TID PRN (Reason: cough) Qty: 90 0RF guaifenesin 400 mg tablet 400 mg PO TID PRN (Reason: congestion) Qty: 30 1RF methylprednisolone [Medrol (Raymond)] 4 mg tablets,dose pack See Rx Instructions PO PER PKG DIR Qty: 21 0RF Rx Instructions: PO PER PKG DIR nicotine 7 mg/24 hr patch 24 hour 1 patch transdermal Q24H Qty: 14 1RF trazodone 100 mg tablet 300 mg PO QHS gabapentin 600 mg tablet 600 mg PO TID hydroxyzine pamoate 25 mg capsule 50 mg PO TID PRN (Reason: Anxiety) prazosin 5 mg capsule 2 mg PO QHS lidocaine [Lidoderm] 5 % adhesive patch,medicated 1 patch topical DAILY Qty: 15 0RF Rx Instructions: leave on most painful area for up to 12 hrs (DME) Handicap Placard See Rx Instructions .Route .MEDSUPPLY Qty: 1 0RF Rx Instructions: As directed, length of time 3 years (DME) Ultra-Light Rollator Misc See Rx Instructions .Route Qty: 1 0RF Rx Instructions: As directed scopolamine base 1 mg over 3 days patch 3 day 1 patch transdermal Q3D PRN (Reason: nausea and vomiting) Qty: 10 2RF promethazine 25 mg tablet 25 mg PO BID PRN (Reason: nausea and vomiting) Qty: 60 1RF dicyclomine 10 mg capsule See Rx Instructions .ROUTE .COMPLEX Qty: 84 2RF Dose Instruction: TAKE 1 CAPSULE BY MOUTH THREE TIMES A DAY Rx Instructions: TAKE 1 CAPSULE BY MOUTH THREE TIMES A DAY pantoprazole 40 mg tablet,delayed release (DR/EC) 40 mg PO DAILY Qty: 30 2RF Primary Care Provider: Gayle Munoz Referrals: Gayle Munoz MD [Primary Care Provider] - Disposition Disposition: Home, Self Care
--- NOTE | 2022-06-01 15:20 | RAD_ITS ---
STUDY: X-RAY - LUMBAR SPINE REASON FOR EXAM: Female, 46 years old. Low back pain following a fall. TECHNIQUE: 2 view(s) of the lumbar spine were obtained. COMPARISON: Comparison is made with prior examination dated 11/04/2022. FINDINGS: There is straightening of the normal lumbar lordosis. There is no substantial scoliosis. There is a normal alignment of the vertebrae. The patient status post anterior fusion at the L5-S1 level with prosthetic disc placement. Normal disc space heights. Once again, the spinal cord stimulating device is seen. RAD/Lumbar Spine 2 or 3 Views IMPRESSION: Stable examination. Electronically Signed: Amado Bernardo MD at 15:36 EST ,
[2022-06-01] MEDS: HYDROcodone Bitartrate/Apap 5/325 Tablet PO (15:32)
[2022-06-01 15:55] VITALS: RESP 18
--- NOTE | 2022-06-01 15:56 | ED.RN ---
PT USES WALKER TO AMBULATE AT DISCHARGE.
[2022-06-01 16:08] VITALS: BP 116/53; PULSE 86; RESP 18; O2SAT 95
== END 2022-06-01 16:09 | disposition home or self-care (01) ==
PROVIDERS: Emergency Provider Emergency Medicine; PCP Internal Medicine; Visit Provider Emergency Medicine
DX: S20.229A Contusion of unspecified back wall of thorax, initial encounter (principal); S09.90XA Unspecified injury of head, initial encounter; G89.29 Other chronic pain; K76.0 Fatty (change of) liver, not elsewhere classified; F17.210 Nicotine dependence, cigarettes, uncomplicated; Z86.73 Personal history of transient ischemic attack (TIA), and cerebral infarction without residual deficits; W19.XXXA Unspecified fall, initial encounter
CPT/HCPCS: 72070; 72072; 72100; 99283

== ENCOUNTER 2022-06-12 14:34 | Emergency (ER) | payer MEDICAID, SELFPAY ==
[2022-06-12 14:35] VITALS: BP 127/68; PULSE 90; RESP 14; TEMP 36.2; O2SAT 100; BMI 31.3
--- NOTE | 2022-06-12 15:11 | EDS_ITS ---
HPI History of Present Illness Chief Complaint: Upper Extremity Injury Informant: patient Narrative Narrative: Patient here a couple of complaints. Primary complaint right upper quadrant abdominal pain and vomiting for 3 days and to keep things down. No diarrhea. Decreased urine output. Denies fevers. Still has her gallbladder. Denies history of similar. Patient states she fell out of wheelchair today going to her mother's house when it hit a crack tipping her over landing onto her right shoulder. Slightly bumped her head however no loss of conscious no neck pain. Pain into her shoulder history of reported appears to be bone spur removal in the past. She states wheelchair-bound due to significant degenerative changes of back, lupus, fibromyalgia, arthritis. She states she has help with family members at home. Prior similar symptoms: No PFSH PFSH Medical History Abdominal pain Acute cystitis Anxiety Arthritis Back pain Back problem Lamar's palsy Blurry vision, left eye Carpal tunnel syndrome Cellulitis Cervical cancer Chronic lumbar radiculopathy Colon polyp Debility Depression Difficulty chewing Dizziness Elevated antinuclear antibody (PAT) level Elevated blood pressure reading Fall Fatty liver Fibromyalgia Flu vaccine need Foot pain, left Gastric reflux Gastrointestinal problem GI bleed Headache Health care maintenance Hearing problem Hematuria History of IBS Hives Hx of emotional problems Hypokalemia Injury of head and neck Insect bite Interstitial cystitis Irritable bowel syndrome Kidney stones Lipoma Lupus Neuropathy Osteoarthritis Physical debility Positive P-ANCA titer Post-menopausal Seasonal allergies Seizures Seizures Sludge in gallbladder Smoker Stroke Ulcer Uterine cancer UTI (urinary tract infection) Wheel chair as ambulatory aid Wheelchair dependent Home Medications topiramate 200 mg tablet 200 mg PO QHS headaches 08/15/18 [History Last Taken Unknown] duloxetine 30 mg capsule,delayed release 90 mg PO QHS depression 06/09/19 [History Last Taken Unknown] trazodone 100 mg tablet 300 mg PO QHS sleep 10/28/19 [History Last Taken Unknown] carbamazepine 200 mg tablet 200 mg PO BID seizures 03/22/20 [History Last Taken 12/08/21] gabapentin 600 mg tablet 600 mg PO TID nerve pain 03/22/20 [History Last Taken 0 12/08/21] hydroxyzine pamoate 25 mg capsule 50 mg PO TID PRN Anxiety 03/22/20 [History Last Taken Unknown] Handicap Placard #1 ea 05/03/20 [Rx Last Taken Unknown] baclofen 10 mg tablet 10 mg PO TID 03/23/21 [History Last Taken 12/08/21] walker (Ultra-Light Rollator misc) #1 ea 09/26/21 [Rx Last Taken Unknown] scopolamine base 1 mg over 3 days transdermal patch 1 patch transdermal Q3D PRN nausea and vomiting #10 ea 02/06/22 [Rx Last Taken Unknown] promethazine 25 mg tablet 25 mg PO BID PRN nausea and vomiting #60 tabs 02/07/22 [Rx Last Taken Unknown] quetiapine 300 mg tablet (Seroquel) 500 mg PO DAILY 02/22/22 [History Last Taken Unknown] dicyclomine 10 mg capsule See Rx Instructions .Route .COMPLEX #84 caps 03/15/22 [Rx Last Taken Unknown] albuterol sulfate 90 mcg/actuation aerosol inhaler 1 - 2 puff inhalation Q6H PRN shortness of breath or wheezing #8.5 grams 04/14/22 [Rx Last Taken Unknown] benzonatate 200 mg capsule 200 mg PO TID PRN cough #90 caps 04/14/22 [Rx Last Taken Unknown] epinephrine 0.3 mg/0.3 mL injection, auto-injector (EpiPen 2-Raymond) 0.3 mg (0.3 mL) IM Q5-15M PRN anaphylaxis #2 ea 04/14/22 [Rx Last Taken Unknown] levetiracetam 500 mg tablet (Keppra) 500 mg PO BID #180 tabs 04/14/22 [Rx Last Taken Unknown] ondansetron 4 mg disintegrating tablet 8 mg PO Q8H PRN PRN Nausea #90 tabs 04/14/22 [Rx Last Taken Unknown] prazosin 5 mg capsule 2 mg PO QHS 04/14/22 [History Last Taken Unknown] simvastatin 20 mg tablet 20 mg PO QPM #90 tabs 04/14/22 [Rx Last Taken Unknown] sumatriptan succinate 50 mg tablet See Rx Instructions PO .COMPLEX #14 tabs 04/14/22 [Rx Last Taken Unknown] guaifenesin 400 mg tablet 400 mg PO TID PRN congestion #30 tabs 05/05/22 [Rx Last Taken Unknown] methylprednisolone 4 mg tablets in a dose pack (Medrol (Raymond)) See Rx Instructions PO PER PKG DIR #21 tabs 05/05/22 [Rx Last Taken Unknown] nicotine 7 mg/24 hr daily transdermal patch 1 patch transdermal Q24H #14 ea 05/05/22 [Rx Last Taken Unknown] lidocaine 5 % topical patch (Lidoderm) 1 patch topical DAILY #15 ea 05/09/22 [Rx Last Taken Unknown] pantoprazole 40 mg tablet,delayed release 40 mg PO DAILY #30 tabs 05/10/22 [Rx Last Taken Unknown] hydrocodone-acetaminophen 5-325mg 5mg-325mg 1 tab PO Q4H PRN PRN Pain 2 days #10 TABLETS 06/01/22 [Rx Last Taken Unknown] metoclopramide HCl 10 mg tablet (Reglan) 10 mg PO Q6H PRN nausea and vomiting #10 tabs 06/12/22 [Rx Last Taken Unknown] Allergy/AdvReac Type Severity Reaction Status Date / Time venom-honey bee Allergy Severe severe Verified 06/12/22 14:36 venom-wasp Allergy Severe severe Verified 06/12/22 14:36 ciprofloxacin [From Cipro] Allergy Rash Verified 06/12/22 14:36 erythromycin base Allergy Anaphylaxis Verified 06/12/22 14:36 iodine Allergy Anaphylaxis Verified 06/12/22 14:36 latex Allergy Rash Verified 06/12/22 14:36 metronidazole [From Flagyl] Allergy Anaphylaxis Verified 06/12/22 14:36 naproxen [From Naprosyn] Allergy Anaphylaxis Verified 06/12/22 14:36 Penicillins Allergy Anaphylaxis Verified 06/12/22 14:36 shellfish derived Allergy Anaphylaxis Verified 06/12/22 14:36 adhesive AdvReac Mild BLISTERS Verified 06/12/22 14:36 sulfamethoxazole AdvReac Hives Verified 06/12/22 14:36 [From Bactrim] trimethoprim [From Bactrim] AdvReac Hives Verified 06/12/22 14:36 Family History Father Asthma Grandfather No problems noted. Grandmother Asthma Brother Lung cancer Diabetes Hypertension Grandfather Asthma Grandmother Asthma Hypertension Mother Diabetes Aunt Diabetes Son Seizures Asthma Surgical History History of appendectomy History of bladder repair surgery History of carpal tunnel surgery of right wrist History of colonoscopy History of esophagogastroduodenoscopy (EGD) History of hysterectomy History of orthopedic surgery History of spinal surgery Hx of repair of right rotator cuff Hx of surgical procedure Hx of surgical procedure S/P left knee surgery S/P umbilical hernia repair, follow-up exam Status post left foot surgery Social History Smoking Status: Current every day smoker tobacco type: cigarettes alcohol intake: never substance use type: does not use what type of physical activity do you participate in: none ROS ROS ED Constitutional Constitutional ED: Denies chills, fever(s) or sweats Eyes Eyes: Denies change in vision ENT ENT ED: Denies dysphagia or sore throat Cardiovascular Cardiovascular: Denies chest pain, leg edema, palpitations or racing heartbeat Respiratory/Chest Respiratory/Chest: Denies cough, dyspnea or dyspnea on exertion Gastrointestinal Gastrointestinal: Reports abdominal pain, nausea and vomiting; Denies diarrhea Genitourinary Genitourinary ED: Denies dysuria, hematuria or urinary frequency Musculoskeletal Musculoskeletal: Reports extremity pain; Denies back pain or neck pain Integumentary Denies rash or wounds Neurologic Neurologic: Denies headache(s), paresthesias or weakness EXAM Physical Exam Const Vital Signs: 06/12/22 14:35 Temperature 97.2 F L Temperature Source Temporal Pulse Rate 90 Respiratory Rate 14 Blood Pressure 127/68 H Blood Pressure Mean 87 Pulse Ox 100 Oxygen Delivery Method Room Air Positive well nourished and well developed General Appearance ED: well developed and NAD HEENT HEENT Narrative: Dry mucosal membranes normocephalic and atraumatic Eyes PERRL, EOMs intact bilaterally and conjunctivae normal General Eye ED: Yes normal appearance of both eyes Neck no lymphadenopathy and supple General: Negative for tenderness Chest Wall Chest: Negative for tenderness Resp normal respiratory effort and normal air movement Effort and Inspection: symmetric chest movement; Negative for respiratory distress Cardio regular rate, regular rhythm and no murmurs Peripheral Pulses: pulses 2+ throughout GI normal to inspection, nondistended, normoactive bowel sounds GI Narrative: Tender right upper quadrant no guarding or rebound. Neck McBurney's. Palpation: Negative for guarding or rebound tenderness present Back/Spine no CVA tenderness and no thoracic nor lumbar tenderness Extremity Extremity Narrative: Upper extremity: No clavicle tenderness tenderness at the acromioclavicular joint with no deformities. No proximal shoulder tenderness. Tender to scapula along the supraspinatus muscles. Passive full range of motion of the shoulder no deformities. No elbow pain. Skin intact. Neuro vas intact. General Extremety ED: Negative for edema or tenderness General Extremity: Negative for edema Neuro oriented x3, CN's II-XII intact bilaterally and no sensory deficits noted Sensorium / Orientation: awake and alert Skin no rashes or lesions noted and no wounds MDM MDM MDM Narrative Medical decision making narrative: Interventions / MDM: Differential diagnosis: Right AC strain, distal clavicle fracture, cholecystitis, nausea and vomiting Diagnosis considered but do not suspect: Shoulder dislocation however clinically no deformities. My EKG interpretation: N/A Imaging independently reviewed and interpreted by myself: Right shoulder x-ray 3 views: No fracture or dislocation. Gallbladder ultrasound negative. External documents reviewed: Previous ED visits noted 3 ultrasounds obtained last year of the gallbladder she had a HIDA scan also January 2022 that was negative. Test considered but not ordered:N/A ED course: Patient reported right shoulder injury from fall. No anticoagulation with her head injuries denies headache. Nexus CT head criteria negative. With her shoulder injury tenderness at the AC joint. X-rays obtained negative for fracture. Sling provided. She reports vomiting for 3 days, pain in the right upper quadrant, gallbladder work-up to rule out cholecystitis Labs are all stable, gallbladder ultrasound negative initially treated morphine and Zofran and additional Reglan improved her symptoms. Re-evaluation: stable and improved. She is given prescription for Reglan, outpatient follow-up. She has seen Dr. Diaz in the past, last year appoin dahlia not till July. She will call for an earlier appointment. She is on a PPI. Disposition discussed with patient/family/significant other: Patient Case discussed with consulting clinician: N/A Discharge Plan Triage Chief Complaint: Upper Extremity Injury ED Provider: eDlfino Garza Dx/Rx/DC Orders Clinical Impression: Nausea & vomiting, Fall, Abdominal pain, Sprain of acromioclavicular ligament of right shoulder Instructions: Abdominal Pain, ED Sprain AC Joint, ED Vomiting (Adult) Prescriptions: New metoclopramide HCl [Reglan] 10 mg tablet 10 mg PO Q6H PRN (Reason: nausea and vomiting) Qty: 10 0RF No Action topiramate 200 mg tablet 200 mg PO QHS carbamazepine 200 mg tablet 200 mg PO BID Label Comments: 1 Tab AM & 2 PM duloxetine 30 mg capsule,delayed release(DR/EC) 90 mg PO QHS baclofen 10 mg tablet 10 mg PO TID quetiapine [Seroquel] 300 mg tablet 500 mg PO DAILY epinephrine [EpiPen 2-Raymond] 0.3 mg/0.3 mL auto-injector 0.3 mg IM Q5-15M PRN (Reason: anaphylaxis) Qty: 2 3RF Rx Instructions: do not exceed 3 doses per episode levetiracetam [Keppra] 500 mg tablet 500 mg PO BID Qty: 180 0RF ondansetron 4 mg tablet,disintegrating 8 mg PO Q8H PRN PRN (Reason: Nausea) Qty: 90 0RF simvastatin 20 mg tablet 20 mg PO QPM Qty: 90 1RF sumatriptan succinate 50 mg tablet See Rx Instructions PO .COMPLEX Qty: 14 2RF Rx Instructions: take 1 tab at onset of headache; if no relief may repeat 1 tab after at least 2 hrs; max = 4 tabs/24 hr PO albuterol sulfate 90 mcg/actuation HFA aerosol inhaler 1 - 2 puff inhalation Q6H PRN (Reason: shortness of breath or wheezing) Qty: 8.5 0RF benzonatate 200 mg capsule 200 mg PO TID PRN (Reason: cough) Qty: 90 0RF guaifenesin 400 mg tablet 400 mg PO TID PRN (Reason: congestion) Qty: 30 1RF methylprednisolone [Medrol (Raymond)] 4 mg tablets,dose pack See Rx Instructions PO PER PKG DIR Qty: 21 0RF Rx Instructions: PO PER PKG DIR nicotine 7 mg/24 hr patch 24 hour 1 patch transdermal Q24H Qty: 14 1RF trazodone 100 mg tablet 300 mg PO QHS gabapentin 600 mg tablet 600 mg PO TID hydroxyzine pamoate 25 mg capsule 50 mg PO TID PRN (Reason: Anxiety) prazosin 5 mg capsule 2 mg PO QHS lidocaine [Lidoderm] 5 % adhesive patch,medicated 1 patch topical DAILY Qty: 15 0RF Rx Instructions: leave on most painful area for up to 12 hrs hydrocodone-acetaminophen [hydrocodone-acetaminophen] 5-325 mg tablet 1 tab PO Q4H PRN PRN (Reason: Pain) 2 Days Qty: 10 0RF (DME) Handicap Placard See Rx Instructions .Route .MEDSUPPLY Qty: 1 0RF Rx Instructions: As directed, length of time 3 years (DME) Ultra-Light Rollator Misc See Rx Instructions .Route Qty: 1 0RF Rx Instructions: As directed scopolamine base 1 mg over 3 days patch 3 day 1 patch transdermal Q3D PRN (Reason: nausea and vomiting) Qty: 10 2RF promethazine 25 mg tablet 25 mg PO BID PRN (Reason: nausea and vomiting) Qty: 60 1RF dicyclomine 10 mg capsule See Rx Instructions .ROUTE .COMPLEX Qty: 84 2RF Dose Instruction: TAKE 1 CAPSULE BY MOUTH THREE TIMES A DAY Rx Instructions: TAKE 1 CAPSULE BY MOUTH THREE TIMES A DAY pantoprazole 40 mg tablet,delayed release (DR/EC) 40 mg PO DAILY Qty: 30 2RF Primary Care Provider: Gayle Munoz Referrals: Gayle Munoz MD [Primary Care Provider] - Gary Diaz DO [Med Staff - Active Staff] - 1 Week Activity Restrictions/Additional Instructions: Shoulder x-ray negative. Use sling for comfort. Gallbladder ultrasound again negative. Labs are stable. Reglan as needed continue oral fluids for hydration. Follow-up with Dr. Diaz. Disposition Disposition: Home, Self Care Discharge Date/Time: 06/12/22 18:15
--- NOTE | 2022-06-12 15:11 | US_ITS ---
STUDY: ABDOMINAL ULTRASOUND - RIGHT UPPER QUADRANT REASON FOR VISIT: Female, 46 years old. Right-sided abdominal pain. TECHNIQUE: Ultrasound evaluation of the right upper quadrant was performed with real-time and static negron-scale imaging. TECHNICAL QUALITY: Examination limited by bowel gas. COMPARISON: February 02, 2022. FINDINGS: Liver: The liver measures 16.7 cm. There is normal echogenicity of the liver. The bile ducts are within normal limits. There is hepatic color flow. The direction of portal flow is hepatopetal. There is no demonstrated mass lesion. Gallbladder: Normal distended gallbladder. The gallbladder wall measures 2 mm. There is a negative sonographic Greenberg''s sign. There is no pericholecystic fluid. There are no gallstones. Common Bile Duct (C.B.D.): The common bile duct measures 3 mm. Pancreas: Normal size of the head and body of the pancreas. The tail is obscured by bowel gas. There is normal echogenicity of the pancreas. There is no demonstrated pancreatic mass or cyst. Right Kidney: Normal size of the right kidney. The right kidney measures 11.5 cm. Normal renal cortex. The right cortex measures 1.1 cm. There is no demonstrated renal mass or cyst. There is an extra-renal pelvis of the right kidney. There is no distention of the renal calyces. US/Gallbladder IMPRESSION: Limited visualization of the pancreas. There is no acute finding or major interval change. Electronically Signed: Bear Monaco DO at 16:54 EST ,
[2022-06-12] MEDS: Ondansetron 4 MG/2 ML Vial IV (15:23)
[2022-06-12] MEDS: Morphine 4 MG/ML Syringe IV (15:23)
--- NOTE | 2022-06-12 15:30 | RAD_ITS ---
STUDY: X-RAY - RIGHT SHOULDER REASON FOR EXAM: Female, 46 years old. Injury TECHNIQUE: 4 view(s) of the shoulder. COMPARISON: None. FINDINGS: Normal glenohumeral articulation. Normal acromioclavicular joint. Normal acromion. Normal humeral head and visualized proximal humerus. The soft tissue structures are unremarkable. Normal visualized pulmonary apex. RAD/Shoulder min 2 Views IMPRESSION: Normal x-ray examination of the shoulder. Electronically Signed: Amado Bernardo MD at 15:44 EST ,
[2022-06-12 15:39] LABS: Absolute Lymphocyte Count 1.91 X10^3/uL (0.83-4.51); Basophil# 0.02 X10^3/uL; Basophil% 0.5 % (0-1); Eosinophil# 0.14 X10^3/uL; Eosinophils% 3.3 % (0-5); Hematocrit 38.8 % (37-47); Hemoglobin 12.7 g/dL (12.0-15.0); Lymphocyte # 1.91 X10^3/ul (0.83-4.51); Lymphocyte % 44.6 % (19-41); Mean Corp Hgb Conc 32.7 g/dL (32-36); Mean Corpuscular Hgb 33.7 pg (27.0-32.0); Mean Corpuscular Volume 102.9 fL (81-99); Mean Platelet Vol. 11.1 fl (6.2-12.0); Monocyte# 0.25 X10^3/uL; Monocyte% 5.8 % (0-10); NRBC Flagged by Analyzer 0 % (0-5); Neutrophil # 1.95 X10^3/uL (2.7-7.7); Neutrophil % 45.6 % (47-70); Platelet Count 170 K/mm3 (150-450); RBC Distribution Width CV 12.3 % (11.6-14.6); RBC Distribution Width SD 46.5 fl (35.1-43.9); Red Blood Count 3.77 M/mm3 (4.2-5.4); White Blood Count 4.3 K/mm3 (4.4-11.0)
[2022-06-12 15:54] LABS: AST(SGOT) 14 U/L (15-37); Alanine Aminotransfer ALT/SGPT 17 U/L (13-56); Albumin, Serum 3.5 g/dL (3.2-5.0); Alkaline Phosphatase 122 U/L (45-117); Anion Gap 6 (5-15); BUN 8 mg/dL (7-18); BUN/Creat Ratio 10.9 RATIO (10-20); Bilirubin, Direct 0.07 mg/dL (0.00-0.30); Calcium,Total 8.7 mg/dL (8.5-10.1); Chloride 109 mmol/L (98-107); Creatinine, Serum 0.74 mg/dL (0.55-1.02); EST Glomerular Filtration Rate 90 mL/min (>60); Est Glom Filt Rate - Afr Amer 109 mL/min (>60); Estimated Creatinine Clearance 93.36 ml/min; Glucose 95 mg/dL (74-106); Lipase 80 U/L (73-393); Potassium 3.6 mmol/L (3.5-5.1); Protein, Total 7.5 g/dL (6.4-8.2); Sodium Level 141 mmol/L (136-145)
[2022-06-12] MEDS: Metoclopramide 10 MG/2 ML Vial 5 MG IV (16:57)
== END 2022-06-12 18:15 | disposition home or self-care (01) ==
PROVIDERS: Emergency Provider Emergency Medicine; PCP Internal Medicine; Visit Provider Emergency Medicine
DX: R11.2 Nausea with vomiting, unspecified (principal); R10.9 Unspecified abdominal pain; S43.51XA Sprain of right acromioclavicular joint, initial encounter; F17.210 Nicotine dependence, cigarettes, uncomplicated; V00.811A Fall from moving wheelchair (powered), initial encounter
CPT/HCPCS: 73030; 76705; 80048; 80076; 83690; 85025; 96374; 96375; 99284; A4216; J2405

== ENCOUNTER → 2022-07-19 | Outpatient (CLI) | payer MEDICAID, SELFPAY ==
--- NOTE | 2022-07-19 11:25 | CT_ITS ---
STUDY: CT ARTHROGRAM OF RIGHT SHOULDER REASON FOR EXAM: Female, 46 years old. Pain. RADIATION DOSAGE (If Supplied By Facility): CTDIvol = ( 14.28 ) mGy, DLP = ( 325.89 ) mGycm TECHNIQUE: The patient was scanned in a multi detector CT scanner. High resolution transaxial imaging was performed after the intra-articular administration of a solution containing 14-15 mL of Isovue contrast. Sagittal and coronal images were reconstructed. Individualized dose optimization techniques were used for this CT. COMPARISON: Right shoulder x-rays dated June 12, 2022. FINDINGS: Adequate distention of the glenohumeral joint with contrast. Normal glenohumeral articulation. Normal glenoid rim, neck and visualized scapula. Normal humeral head, neck and tuberosities. Nondisplaced superior labral tear (coronal series 601 image 78). Normal coracoid process. Normal visualized lateral clavicle. Mild arthrosis of the AC joint. There is a Type II morphology (curved), with a neutral orientation. Normal visualized muscles and soft tissue structures. CT/Extremity Upper WITH Contrast IMPRESSION: Mild arthrosis of the AC joint. Nondisplaced superior labral tear. No other abnormality. Electronically Signed: Alex Pastrana, at 9:25 EDT ,
--- NOTE | 2022-07-19 11:45 | RAD_ITS ---
CLINICAL HISTORY: Female, 46 years old. Right shoulder pain, decreased range of motion PROCEDURE: ARTHROGRAM - FLUOROSCOPY GUIDED RADIATION DOSAGE (If Supplied By Facility): CTDIvol = ( 6.28 ) mGy, 47 seconds of fluoroscopy, 2 spot images obtained CONSENT: Informed consent obtained SEDATION: Local with 2% Xylocaine FLUOROSCOPY TIME (if supplied): (47) seconds Injection Information: 14 mL of Isovue 300 Number of images obtained: 2 TECHNIQUE: (All elements of maximal sterile barrier technique followed, including US elements as applicable) After informed consent was obtained, the patient was placed on the fluoroscopic table in the supine position at appropriate site for right shoulder arthrogram/injection was determined. The area was prepped and draped in a sterile manner. Under fluoroscopic guidance, 22-gauge spinal needle was advanced into the right shoulder capsule, 2 to 3 mL of Isovue contrast confirmed needle placement within the joint space. Then another 12 mL of Isovue contrast was advanced into the left shoulder capsule. There is no evidence of contrast into the subdeltoid bursa but there is contrast noted medial to the glenohumeral joint suggesting capsular injury. Patient tolerated the procedure well with no immediate complications and was sent to CT for further imaging RAD/Arthrogram Shoulder IMPRESSION: Successful fluoroscopically guided right shoulder injection/arthrogram Electronically Signed: Alexander Myers MD at 14:38 EDT ,
[2022-07-19] MEDS: Lidocaine 2% (5ml sdv) 5 ML VIAL.MPF INFILT (12:07)
[2022-07-19] MEDS: Gadoterate Meglumine Diluted 10 ML, Iopamidol 5 ML, Lidocaine 1% (20 ml mdv) 5 ML, Epin... INTRAARTIC (12:10)
[2022-07-19] MEDS: Iopamidol 10 ML in Syringe 1 EACH 600 ML INTRAARTIC (12:10)
== END | disposition home or self-care (01) ==
LOC: RAD 11:23
PROVIDERS: PCP Internal Medicine; Referring Provider Orthopaedic Surgery; Visit Provider Orthopaedic Surgery
DX: Z98.890 Other specified postprocedural states (principal); S46.009A Unspecified injury of muscle(s) and tendon(s) of the rotator cuff of unspecified shoulder, initial encounter; M25.511 Pain in right shoulder
CPT/HCPCS: 23350; 73040; 73201; Q9967

== ENCOUNTER 2022-07-25 11:13 | Emergency (ER) | payer MEDICAID, SELFPAY ==
[2022-07-25 11:14] VITALS: BP 115/84; PULSE 101; RESP 18; TEMP 36.1; O2SAT 98
--- NOTE | 2022-07-25 11:57 | CT_ITS ---
STUDY: CT ABDOMEN AND PELVIS WITHOUT CONTRAST REASON FOR EXAM: Female, 46 years old. Abdominal pain. RADIATION DOSAGE (If Supplied By Facility): CTDIvol = ( 20.29 ) mGy, DLP = ( 1115.22 ) mGycm TECHNIQUE: Transaxial images were obtained from the dome of the diaphragm to the symphysis pubis without oral contrast, and without intravenous contrast. Sagittal and coronal images were reconstructed. Individualized dose optimization techniques were used for this CT. COMPARISON: Comparison is made with prior examination dated July 13, 2021. FINDINGS: The visualized lung bases are unremarkable. The visualized portions of the heart are within normal limits. Normal liver. Normal gallbladder and extrahepatic biliary system. Normal spleen. Normal pancreas. Normal bilateral adrenal glands. Normal right kidney. Normal left kidney. Normal visualized stomach. Normal small intestine. Normal colon. There are surgical clips in the region of the appendix consistent with a prior appendectomy. There is scattered atherosclerotic calcification of the abdominal aorta, without a demonstrated aneurysm. Normal inferior vena cava. Normal retroperitoneum. Normal urinary bladder. There is absence of the uterus consistent with a prior hysterectomy. Once again, there is evidence of a right-sided subcutaneous implanted electronic device with leads extending into the spinal canal. This space narrowing and prior fusion at the L5-S1 level. CT/Abdomen/Pelvis without Cont IMPRESSION: Stable examination. No acute abnormality is seen. Electronically Signed: Amado Bernardo MD at 12:20 EDT ,
--- NOTE | 2022-07-25 11:57 | ED.VIS.GI ---
HPI HPI - GI History of Present Illness Chief Complaint: Abd Pain Narrative Narrative: 46-year-old female past medical history of lupus, arthritis, fibromyalgia presents with nausea and vomiting over the last 4 days. She states it started on Sunday, then resolved for a day, but then came back yesterday. She states that she had small blood streaks in her vomit today but denies any gross hematemesis. No problems with bowel movements. She complains of epigastric to right upper quadrant abdominal pain but she thinks that maybe this is from vomiting so much. She feels extremely nauseated. She denies fevers or chills, no exacerbating or alleviating factors. [facility] Medical History Abdominal pain Abdominal pain Acute cystitis Anxiety Arthritis Back pain Back problem Lamar's palsy Blurry vision, left eye Carpal tunnel syndrome Cellulitis Cervical cancer Chronic lumbar radiculopathy Colon polyp Debility Depression Difficulty chewing Dizziness Elevated antinuclear antibody (PAT) level Elevated blood pressure reading Fall Fatty liver Fibromyalgia Flu vaccine need Foot pain, left Gastric reflux Gastrointestinal problem GI bleed Headache Health care maintenance Hearing problem Hematuria History of IBS Hives Hx of emotional problems Hypokalemia Injury of head and neck Insect bite Interstitial cystitis Irritable bowel syndrome Kidney stones Lipoma Lupus Neuropathy Osteoarthritis Physical debility Positive P-ANCA titer Post-menopausal Right shoulder pain Seasonal allergies Seizures Seizures Sludge in gallbladder Smoker Stroke Ulcer Uterine cancer UTI (urinary tract infection) Wheel chair as ambulatory aid Wheelchair dependent Home Medications topiramate 200 mg tablet 200 mg PO QHS headaches 08/15/18 [History Last Taken Unknown] duloxetine 30 mg capsule,delayed release 90 mg PO QHS depression 06/09/19 [History Last Taken Unknown] trazodone 100 mg tablet 300 mg PO QHS sleep 10/28/19 [History Last Taken Unknown] carbamazepine 200 mg tablet 200 mg PO BID seizures 03/22/20 [History Last Taken 12/08/21] hydroxyzine pamoate 25 mg capsule 50 mg PO TID PRN Anxiety 03/22/20 [History Last Taken Unknown] Handicap Placard #1 ea 05/03/20 [Rx Last Taken Unknown] baclofen 10 mg tablet 10 mg PO TID 03/23/21 [History Last Taken 12/08/21] walker (Ultra-Light Rollator misc) #1 ea 09/26/21 [Rx Last Taken Unknown] quetiapine 300 mg tablet (Seroquel) 500 mg PO DAILY 02/22/22 [History Last Taken Unknown] albuterol sulfate 90 mcg/actuation aerosol inhaler 1 - 2 puff inhalation Q6H PRN shortness of breath or wheezing #8.5 grams 04/14/22 [Rx Last Taken Unknown] epinephrine 0.3 mg/0.3 mL injection, auto-injector (EpiPen 2-Raymond) 0.3 mg (0.3 mL) IM Q5-15M PRN anaphylaxis #2 ea 04/14/22 [Rx Last Taken Unknown] prazosin 5 mg capsule 2 mg PO QHS 04/14/22 [History Last Taken Unknown] simvastatin 20 mg tablet 20 mg PO QPM #90 tabs 04/14/22 [Rx Last Taken Unknown] sumatriptan succinate 50 mg tablet See Rx Instructions PO .COMPLEX #14 tabs 04/14/22 [Rx Last Taken Unknown] guaifenesin 400 mg tablet 400 mg PO TID PRN congestion #30 tabs 05/05/22 [Rx Last Taken Unknown] lidocaine 5 % topical patch (Lidoderm) 1 patch topical DAILY #15 ea 05/09/22 [Rx Last Taken Unknown] pantoprazole 40 mg tablet,delayed release 40 mg PO DAILY #30 tabs 05/10/22 [Rx Last Taken Unknown] gabapentin 600 mg tablet 600 mg PO TID nerve pain #90 tabs 06/21/22 [Rx Last Taken Unknown] promethazine 25 mg tablet 25 mg PO BID PRN nausea and vomiting #60 tabs 06/21/22 [Rx Last Taken Unknown] ondansetron 4 mg disintegrating tablet 8 mg PO Q8H PRN PRN Nausea #90 tabs 07/04/22 [Rx Last Taken Unknown] scopolamine base 1 mg over 3 days transdermal patch 1 patch transdermal Q3D PRN nausea and vomiting #10 ea 07/04/22 [Rx Last Taken Unknown] levetiracetam 500 mg tablet (Keppra) 500 mg PO BID #180 tabs 07/11/22 [Rx Last Taken Unknown] prednisone 50 mg tablet 50 mg PO DAILY #3 tabs 07/18/22 [Rx Last Taken Unknown] lubiprostone 24 mcg capsule (Amitiza) 24 mcg PO BID #60 caps 07/21/22 [Rx Last Taken Unknown] metoclopramide HCl 10 mg tablet 10 mg PO QAC #30 tabs 07/21/22 [Rx Last Taken Unknown] ondansetron 4 mg disintegrating tablet 4 mg PO Q6H PRN nausea and vomiting #20 tabs 07/25/22 [Rx Last Taken Unknown] Allergy/AdvReac Type Severity Reaction Status Date / Time venom-honey bee Allergy Severe severe Verified 07/25/22 11:15 venom-wasp Allergy Severe severe Verified 07/25/22 11:15 ciprofloxacin [From Cipro] Allergy Rash Verified 07/25/22 11:15 erythromycin base Allergy Anaphylaxis Verified 07/25/22 11:15 iodine Allergy Anaphylaxis Verified 07/25/22 11:15 latex Allergy Rash Verified 07/25/22 11:15 metronidazole [From Flagyl] Allergy Anaphylaxis Verified 07/25/22 11:15 naproxen [From Naprosyn] Allergy Anaphylaxis Verified 07/25/22 11:15 Penicillins Allergy Anaphylaxis Verified 07/25/22 11:15 shellfish derived Allergy Anaphylaxis Verified 07/25/22 11:15 adhesive AdvReac Mild BLISTERS Verified 07/25/22 11:15 sulfamethoxazole AdvReac Hives Verified 07/25/22 11:15 [From Bactrim] trimethoprim [From Bactrim] AdvReac Hives Verified 07/25/22 11:15 Family History Father Asthma Grandfather No problems noted. Grandmother Asthma Brother Lung cancer Diabetes Hypertension Grandfather Asthma Grandmother Asthma Hypertension Mother Diabetes Aunt Diabetes Son Seizures Asthma Surgical History History of appendectomy History of bladder repair surgery History of carpal tunnel surgery of right wrist History of colonoscopy History of esophagogastroduodenoscopy (EGD) History of hysterectomy History of orthopedic surgery History of spinal surgery Hx of repair of right rotator cuff Hx of surgical procedure Hx of surgical procedure S/P left knee surgery S/P umbilical hernia repair, follow-up exam Status post left foot surgery Social History Smoking Status: Current every day smoker tobacco type: cigarettes alcohol intake: never substance use type: does not use what type of physical activity do you participate in: none ROS ROS ED ROS Narrative Constitutional: No fever, no chills. HEENT: No sore throat. No neck pain. No loss of vision. No rhinorrhea. Cardiovascular: No chest pain. No palpitations. No pedal edema. Respiratory: No cough, no shortness of breath. Abdominal: Epigastric to right upper quadrant greater than left upper quadrant abdominal pain. Multiple episodes of nausea and vomiting over the last few days. Genitourinary: No dysuria. No hematuria. Musculoskeletal: No myalgias. No arthralgias. Neurologic: No headaches. No dizziness. No lightheadedness. Skin: No rash. No change in color. Psychiatric: No depression. No anxiety. EXAM Physical Exam Narrative Exam Narrative: Afebrile. Vital signs noted. HEENT: Normocephalic. Atraumatic. PERRL, EOMI. Neck soft and supple. No point tenderness or step off. Cardiovascular: Regular rate and rhythm. No murmurs, rubs, or gallops appreciated. Respiratory: No tachypnea. Lungs clear to auscultation bilaterally. Gastrointestinal: Abdomen soft, mild tenderness right upper quadrant to epigastrium, with normoactive bowel sounds. No rebound or guarding. Neurological: Awake. Alert. Nonfocal, nonlateralizing. Skin: No rash. Normal color. No pallor. Musculoskeletal: No pedal edema. Full range of motion extremities. Const Vital Signs: 07/25/22 11:14 07/25/22 13:53 Temperature 97 F L Temperature Source Temporal Pulse Rate 101 H 71 Respiratory Rate 18 16 Blood Pressure 115/84 H 113/65 Blood Pressure Mean 94 81 Pulse Ox 98 100 Oxygen Delivery Method Room Air Room Air MDM MDM MDM Narrative Medical decision making narrative: Raul the differential diagnosis is pancreatitis versus gastritis. She feels that she may have a kidney stone. In review of her problem list, she has irritable bowel syndrome. I am also concerned about small bowel obstruction from adhesions given her history of hysterectomy from reported carcinoma, and appendectomy. She also has reported sludge in her gallbladder. She will be treated symptomatically with a bolus of normal saline for her slight tachycardia of 101 that is intermittent and for fluid replacement. I will check a lipase and a CMP to make sure that she does not have a gallstone pancreatitis that would elevate her LFTs as well. I do feel that CT imaging is indicated to help rule out obstruction but also to take a look at her gallbladder. She has an allergy to iodine of anaphylaxis so it will be performed without contrast. I reviewed the patient's laboratory work and she has a normal white count of 7.1, hemoglobin normal at 14.1, hematocrit 41.9, platelet count normal at 204. Deya panel she has a chloride elevated at 110 but normal sodium of 140 and normal potassium of 3.6. Glucose is 93 with a normal BUN of 10 and a normal creatinine of 0.77. I reviewed the CT imaging and reviewed the CT report which shows no acute process, no obstruction or inflammation. Urinalysis is negative for infection. I do not feel antibiotics are indicated. Given her negative work-up here, she had received morphine and Zofran intravenously. I am unsure as to the cause of her reported abdominal pain and flank pain, but I feel she can be discharged safely home with follow-up. She states that her Phenergan at home is ineffective. I will write her prescription for Zofran. She will follow-up with her primary care provider. Return instructions to the emergency department were reviewed. Disposition is discharged home in stable condition. History & Record Review Discussion w/independent historian: Patient Additional record(s) reviewed:: Prior ED visit and Prior labs Lab Data Attestation: I reviewed the patient's lab results. Labs: Laboratory Results - last 24 hr 07/25/22 07/25/22 07/25/22 12:50 12:55 12:55 WBC 7.1 RBC 4.20 Hgb 14.1 Hct 41.9 MCV 99.8 H MCH 33.6 H MCHC 33.7 RDW Std Deviation 47.0 H RDW Coeff of Karina 12.8 Plt Count 204 MPV 11.0 Immature Gran % (Auto) 0.400 Neut % (Auto) 59.2 Lymph % (Auto) 31.4 [place] % (Auto) 4.9 Eos % (Auto) 3.5 Baso % (Auto) 0.6 Absolute Neuts (auto) 4.2 Absolute Lymphs (auto) 2.23 Nucleated RBC % 0 Sodium 140 Potassium 3.6 Chloride 110 H Carbon Dioxide 25.0 Anion Gap 5 BUN 10 Creatinine 0.77 Estim Creat Clear Calc 89.72 Est GFR (MDRD) Af Amer 105 Est GFR (MDRD) Non-Af 86 BUN/Creatinine Ratio 13.1 Glucose 93 Calcium 9.0 Total Bilirubin 0.20 AST 14 L ALT 17 Alkaline Phosphatase 139 H Total Protein 8.6 H Albumin 4.0 Globulin 4.6 H Albumin/Globulin Ratio 0.9 Lipase 27 Urine Color Yellow Urine Clarity Clear Urine pH 6.5 Ur Specific [place] 1.015 Urine Protein 15 H Urine Glucose (UA) Normal Urine Ketones Negative Urine Occult Blood Negative Urine Nitrite Negative Urine Bilirubin Negative Urine Urobilinogen Normal Ur Leukocyte Esterase Negative Urine RBC 0 SEEN Urine WBC 0 SEEN Ur Squamous Epith Cells 0-5 SEEN Urine Bacteria 0 SEEN Urine Mucus 0 SEEN Radiography Diagnostic Testing: Clinical Impression(s) from Imaging Studies Abdomen/Pelvis CT 07/25/22 11:57 IMPRESSION: Stable examination. No acute abnormality is seen. Electronically Signed: Amado Bernardo MD at 12:20 EDT Reading Location ID and State: [facility] / [place] , Service support , Discharge Plan Triage Chief Complaint: Abd Pain ED Provider: Dg Peacock Dx/Rx/DC Orders Clinical Impression: Abdominal pain, Nausea and vomiting Instructions: ED Abdominal Pain Unkn Cause Fem, ED Vomiting (Adult) Prescriptions: New ondansetron 4 mg tablet,disintegrating 4 mg PO Q6H PRN (Reason: nausea and vomiting) Qty: 20 0RF No Action topiramate 200 mg tablet 200 mg PO QHS carbamazepine 200 mg tablet 200 mg PO BID Label Comments: 1 Tab AM & 2 PM duloxetine 30 mg capsule,delayed release(DR/EC) 90 mg PO QHS baclofen 10 mg tablet 10 mg PO TID quetiapine [Seroquel] 300 mg tablet 500 mg PO DAILY lubiprostone [Amitiza] 24 mcg capsule 24 mcg PO BID Qty: 60 5RF metoclopramide HCl 10 mg tablet 10 mg PO QAC Qty: 30 0RF Rx Instructions: administer 30 minutes before meals epinephrine [EpiPen 2-Raymond] 0.3 mg/0.3 mL auto-injector 0.3 mg IM Q5-15M PRN (Reason: anaphylaxis) Qty: 2 3RF Rx Instructions: do not exceed 3 doses per episode simvastatin 20 mg tablet 20 mg PO QPM Qty: 90 1RF sumatriptan succinate 50 mg tablet See Rx Instructions PO .COMPLEX Qty: 14 2RF Rx Instructions: take 1 tab at onset of headache; if no relief may repeat 1 tab after at least 2 hrs; max = 4 tabs/24 hr PO albuterol sulfate 90 mcg/actuation HFA aerosol inhaler 1 - 2 puff inhalation Q6H PRN (Reason: shortness of breath or wheezing) Qty: 8.5 0RF guaifenesin 400 mg tablet 400 mg PO TID PRN (Reason: congestion) Qty: 30 1RF gabapentin 600 mg tablet 600 mg PO TID Qty: 90 1RF promethazine 25 mg tablet 25 mg PO BID PRN (Reason: nausea and vomiting) Qty: 60 1RF trazodone 100 mg tablet 300 mg PO QHS hydroxyzine pamoate 25 mg capsule 50 mg PO TID PRN (Reason: Anxiety) prazosin 5 mg capsule 2 mg PO QHS lidocaine [Lidoderm] 5 % adhesive patch,medicated 1 patch topical DAILY Qty: 15 0RF Rx Instructions: leave on most painful area for up to 12 hrs (DME) Handicap Placard See Rx Instructions .Route .MEDSUPPLY Qty: 1 0RF Rx Instructions: As directed, length of time 3 years (DME) [facility] See Rx Instructions .Route Qty: 1 0RF Rx Instructions: As directed pantoprazole 40 mg tablet,delayed release (DR/EC) 40 mg PO DAILY Qty: 30 2RF ondansetron 4 mg tablet,disintegrating 8 mg PO Q8H PRN PRN (Reason: Nausea) Qty: 90 0RF scopolamine base 1 mg over 3 days patch 3 day 1 patch transdermal Q3D PRN (Reason: nausea and vomiting) Qty: 10 5RF levetiracetam [Keppra] 500 mg tablet 500 mg PO BID Qty: 180 0RF prednisone 50 mg tablet 50 mg PO DAILY Qty: 3 0RF Rx Instructions: take one tablet 13 hours prior to contrast, then one tablet 7 hours prior to contrast, and then one tablet 1 hour prior to contrast Primary Care Provider: Gayle Munoz Referrals: Gayle Munoz MD [Primary Care Provider] - As soon as possible Disposition Disposition: Home, Self Care
[2022-07-25 12:54] LABS: Bacteria 0 SEEN /hpf (None Seen); Mucous, Urine 0 SEEN /hpf (<or=2+); Red Blood Cells-Urine 0 SEEN /hpf (0-5); White Blood Cells 0 SEEN /hpf (0-5)
[2022-07-25 12:56] VITALS: BMI 30.5
[2022-07-25] MEDS: 0.9% Normal Saline 1,000 ML 999 ML IV (12:57)
[2022-07-25] MEDS: Ondansetron 4 MG/2 ML Vial IV (12:57)
[2022-07-25] MEDS: Morphine 4 MG/ML Syringe IV (12:57)
[2022-07-25 13:02] LABS: Absolute Lymphocyte Count 2.23 X10^3/uL (0.83-4.51); Absolute Neutrophil Count 4.2 X10^3/uL (2.0-7.7); Basophil# 0.04 X10^3/uL; Basophil% 0.6 % (0-1); Eosinophil# 0.25 X10^3/uL; Eosinophils% 3.5 % (0-5); Hematocrit 41.9 % (37-47); Hemoglobin 14.1 g/dL (12.0-15.0); Lymphocyte # 2.23 X10^3/ul (0.83-4.51); Lymphocyte % 31.4 % (19-41); Mean Corp Hgb Conc 33.7 g/dL (32-36); Mean Corpuscular Hgb 33.6 pg (27.0-32.0); Mean Corpuscular Volume 99.8 fL (81-99); Monocyte# 0.35 X10^3/uL; Monocyte% 4.9 % (0-10); NRBC Flagged by Analyzer 0 % (0-5); Neutrophil % 59.2 % (47-70); Platelet Count 204 K/mm3 (150-450); RBC Distribution Width CV 12.8 % (11.6-14.6); White Blood Count 7.1 K/mm3 (4.4-11.0)
[2022-07-25 13:02] LABS: Color, Urine Yellow (Yellow); Glucose, Dipstick Normal (Normal); Ketone-Dipstick Negative (Negative); Leukocyte Esterase-Dipstick Negative /ul (Negative); Nitrite-Dipstick Negative (Negative); Occult Blood-Urine Negative /ul (Negative); Protein-Dipstick 15 mg/dl (Negative); Specific Gravity, Urine 1.015 (1.002-1.030); Urine Bilirubin Dipstick Negative (Negative); Urine Clarity Clear (Clear); Urine Urobilinogen Normal (Normal); Urine pH 6.5 (5.0 - 8.0)
[2022-07-25 13:08] LABS: Squamous Epithelial Cells - UA 0-5 SEEN /hpf (5-10)
[2022-07-25 13:17] LABS: ALB/GLOB Ratio 0.9 RATIO (0.9-2.4); AST(SGOT) 14 U/L (15-37); Alanine Aminotransfer ALT/SGPT 17 U/L (13-56); Alkaline Phosphatase 139 U/L (45-117); Anion Gap 5 (5-15); BUN 10 mg/dL (7-18); BUN/Creat Ratio 13.1 RATIO (10-20); Chloride 110 mmol/L (98-107); Creatinine, Serum 0.77 mg/dL (0.55-1.02); EST Glomerular Filtration Rate 86 mL/min (>60); Est Glom Filt Rate - Afr Amer 105 mL/min (>60); Estimated Creatinine Clearance 89.72 ml/min; Globulin 4.6 g/dL (2.2-4.2); Glucose 93 mg/dL (74-106); Lipase 27 U/L (13-75); Potassium 3.6 mmol/L (3.5-5.1); Protein, Total 8.6 g/dL (6.4-8.2); Sodium Level 140 mmol/L (136-145)
[2022-07-25 13:53] VITALS: BP 113/65; PULSE 71; RESP 16; O2SAT 100
== END 2022-07-25 14:34 | disposition home or self-care (01) ==
PROVIDERS: Emergency Provider Emergency Medicine; PCP Internal Medicine; Visit Provider Emergency Medicine
DX: R10.9 Unspecified abdominal pain (principal); R11.2 Nausea with vomiting, unspecified; K76.0 Fatty (change of) liver, not elsewhere classified; F17.210 Nicotine dependence, cigarettes, uncomplicated; Z86.73 Personal history of transient ischemic attack (TIA), and cerebral infarction without residual deficits
CPT/HCPCS: 74176; 80053; 81001; 83690; 85025; 96374; 96375; 99283; J7030; A4216; J2405

== ENCOUNTER → 2022-08-14 | Outpatient (CLI) | payer MEDICAID, SELFPAY ==
--- NOTE | 2022-08-14 11:30 | NM_ITS ---
CLINICAL: 46-year-old female with history of epigastric pain and clinical gastroparesis. SEMI-SOLID PHASE 99m Tc SULFUR COLLOID GASTRIC EMPTYING STUDY COMPARISON: None available FINDINGS: The patient was administered 1.1 mCi of 99m Tc sulfur colloid mixed with oatmeal and consumed per os. Image acquisitions in the anterior-posterior projections were obtained for 60 minutes. There is prompt visualization of the stomach. There is no gastroesophageal reflux identified. The T ? linear fit was calculated to be 43.78 minutes, (Normal: 12-56 minutes). NM/Gastric Emptying Study IMPRESSION: 1. NORMAL 99m Tc sulfur colloid semi-solid phase (oatmeal) gastric emptying imaging examination. A. There is normal and preserved semi-solid phase gastric emptying compared to normal controls. (Jaswinder et al, J Nucl Med Tech 38: 186, 2010). Electronically Signed: Tree Al, at 22:15 EDT ,
== END | disposition home or self-care (01) ==
LOC: NM 11:30
PROVIDERS: PCP Internal Medicine; Referring Provider Nurse Practitioner Adult Health; Visit Provider Nurse Practitioner Adult Health
DX: R11.2 Nausea with vomiting, unspecified (principal); R10.13 Epigastric pain; R68.81 Early satiety
CPT/HCPCS: 78264; A9541

== ENCOUNTER → 2022-08-15 | Outpatient (CLI) | payer MEDICAID, SELFPAY ==
[2022-08-15 15:21] LABS: Amphetamine Urine VISTA NEGATIVE (<1000 ng/mL); Barbiturate Urine VISTA NEGATIVE (< 200 ng/mL); Benzodiazepine Urine VISTA NEGATIVE (< 200 ng/mL); Cocaine Urine VISTA NEGATIVE (< 300 ng/mL); Ecstacy Urine VISTA NEGATIVE (< 500 ng/mL); Methadone Urine VISTA NEGATIVE (< 300 ng/mL); PCP Urine VISTA NEGATIVE (< 25 ng/mL); THC Urine VISTA NEGATIVE (< 50 ng/mL); Vista UDS pH Range 6
== END | disposition home or self-care (01) ==
LOC: LABSPEC 13:52
PROVIDERS: PCP Internal Medicine; Visit Provider Nurse Practitioner Family
DX: M53.9 Dorsopathy, unspecified (principal)
CPT/HCPCS: 80307

== ENCOUNTER 2022-09-27 06:23 | Day surgery (SDC) | payer MEDICAID, SELFPAY ==
[2022-09-27] VITALS (7 sets, daily range): BP systolic 100–118; BP diastolic 55–75; PULSE 75–89; RESP 16–18; TEMP 36.1–37.2; O2SAT 92–97; BMI 29.0
[2022-09-27] MEDS: Lactated Ringers 1,000 ML 15 ML IV (06:59)
--- NOTE | 2022-09-27 07:30 | EGD_PTH ---
PATIENT: CHARLOTTE VASQUEZ LOC: EN U#:[id number] AGE/SX: 47/F ROOM: RE09/27/[address]: Dr. Gary Diaz DO : 1975 BED: DIS: 09/27/2022 SPEC #: [id number] RECD: 09/27/22 13:23 STATUS: RAMON REQ #: [id number] CHERYL: 09/27/22 07:[address]: Gary Diaz DEPT: SURGICAL PATHOLOGY RECD BY: Scarlett Biswas ENTERED: 09/28/22 08:42 SP TYPE: EGD BIOPSY OT DR: Dr. Gayle Munoz MD Tissues: A - Duodenum, NOS B - Esophagus, NOS Procedures: Surgery Specimen Level IV HEADER OPERATION: EGD ([facility] [place]) with biopsy and esophageal dilation PRE-OP DIAGNOSIS: Epigastric pain, dysphagia TISSUE SUBMITTED: A ? Duodenum, B ? Random esophagus MICROSCOPIC DIAGNOSIS A. Duodenum, biopsy: Minimal nonspecific chronic inflammation. B. Esophagus, random biopsy: No pathologic change. AM:rodolfo 09/29/2022 MICROSCOPIC DESCRIPTION Slides are reviewed. GROSS DESCRIPTION A - Received in fixative is one container labeled with the patient's name and designated duodenum. The specimen consists of two irregular fragments of light doyle soft tissue that in aggregate measure 0.7 x 0.6 x 0.1 cm. The specimen is totally submitted in one cassette. B - Received in fixative is one container labeled with the patient's name and designated random esophagus. The specimen consists of two irregular fragments of light doyle soft tissue that in aggregate measure 0.5 x 0.3 x 0.1 cm. The specimen is totally submitted in one cassette. / AM:rodolfo 09/28/2022 TC:3 [facility]: [id number] x2
--- NOTE | 2022-09-27 07:36 | HP.PCM_ITS ---
History and Physical Date of Admission: 09/27/22 HPI Details: Reviewed Rheum note 11/03/21--A/P was PAT positive, inflammatory arthritis, SLE; likely lupus causing inflammatory arthritis, overlap CTD, rx'd plaquenil; pt didn't keep f/u in 04/2022, and didn't reschedule. 07/24/22 1151 <Electronically signed by Charlotte Waller NP [facility]> Date Sridhar,Charlotte Carson NP [facility] cc: ? ~* Signed ADDENDUM by? [facility] SE[facility]ER[facility]C Charlotte Waller on 07/21/22 at 1312 HPI Details: CHARLOTTE VASQUEZ, is a 46 F who presents to the office today for ROS Const Constitutional: No fatigue, fever(s), headache(s), weight change, sleep problems, abnormal sleep pattern or change in appetite ENT ENT: No headache(s), difficulty swallowing, hoarseness or sore throat Resp Respiratory: No cough, hemoptysis or shortness of breath Cardio Cardiology: No chest pain at rest or generalized swelling Gastro GI: Positive for abdominal pain, constipation, heartburn, difficulty swallowing, Blood in stool and vomiting; No belching, bloating, change in bowel habits, change in stool character, coffee ground emesis, cramping, diarrhea, feeling full early, excessive flatus, incontinent of stools, Vomiting blood/hematemesis, loose stools, Black,tarry stools, nausea/dyspepsia or pain with swallowing Musc Musculoskeletal: Positive for joint pain, back pain, joint swelling, muscle weakness, numbness, stiffness, tingling, Arthritis, restless legs, leg pain at night and leg pain with exertion Skin Skin: No itchy eyes or rash Neuro Neurology: Positive for abnormal gait, frequent falls, numbness and tingling; No behavioral changes, confusion or headache(s) Psych Psychiatric: No abnormal sleep pattern, No anxiety, No behavioral changes, No change in appetite, No confusion and No depression Endo Endocrine: No cold intolerance, fatigue, heat intolerance, increased thirst/drinking or weight change Aller/Imm Allergy/Immunologic: No food intolerance or itchy eyes Esteban/Lymp Hematologic/Lymphatic: Positive for easy bleeding and easy bruising; No enlarged lymph nodes 07/21/22 1312 <Electronically signed by Charlotte CUMMINGSC> Date Charlotte Waller NP cc: ? ~* Signed Intake Vital Signs ? 02/02/2217:02 06/21/2314:44 Height 5 ft 7 in 5 ft 7 in Intake Visit Reasons:?1 MO FU Chief Complaint: f/u Allergies venom-honey bee Allergy (Severe, Verified 07/21/22 11:06) severevenom-wasp Allergy (Severe, Verified 07/21/22 11:06) severeciprofloxacin [From Cipro] Allergy (Verified 07/21/22 11:06) Rasherythromycin base Allergy (Verified 07/21/22 11:06) Anaphylaxisiodine Allergy (Verified 07/21/22 11:06) Anaphylaxislatex Allergy (Verified 07/21/22 11:06) Rashmetronidazole [From Flagyl] Allergy (Verified 07/21/22 11:06) Anaphylaxisnaproxen [From Naprosyn] Allergy (Verified 07/21/22 11:06) AnaphylaxisPenicillins Allergy (Verified 07/21/22 11:06) Anaphylaxisshellfish derived Allergy (Verified 07/21/22 11:06) Anaphylaxisadhesive Adverse Reaction (Mild, Verified 07/21/22 11:06) BLISTERSsulfamethoxazole [From Bactrim] Adverse Reaction (Verified 07/21/22 11:06) Hivestrimethoprim [From Bactrim] Adverse Reaction (Verified 07/21/22 11:06) Hives Medications topiramate 200 mg tablet 200 mg PO QHS headaches 08/15/18 [History Confirmed 07/21/22] duloxetine 30 mg capsule,delayed release 90 mg PO QHS depression 06/09/19 [History Confirmed 07/21/22] trazodone 100 mg tablet 300 mg PO QHS sleep 10/28/19 [History Confirmed 07/21/22] carbamazepine 200 mg tablet 200 mg PO BID seizures 03/22/20 [History Confirmed 07/21/22] hydroxyzine pamoate 25 mg capsule 50 mg PO TID PRN Anxiety 03/22/20 [History Confirmed 07/21/22] Handicap Placard #1 ea 05/03/20 [Rx Confirmed 07/21/22] baclofen 10 mg tablet 10 mg PO TID 03/23/21 [History Confirmed 07/21/22] walker (Ultra-Light Rollator misc) #1 ea 09/26/21 [Rx Confirmed 07/21/22] quetiapine 300 mg tablet (Seroquel) 500 mg PO DAILY 02/22/22 [History Confirmed 07/21/22] albuterol sulfate 90 mcg/actuation aerosol inhaler 1 - 2 puff inhalation Q6H PRN shortness of breath or wheezing #8.5 grams 04/14/22 [Rx Confirmed 07/21/22] epinephrine 0.3 mg/0.3 mL injection, auto-injector (EpiPen 2-Raymond) 0.3 mg (0.3 mL) IM Q5-15M PRN anaphylaxis #2 ea 04/14/22 [Rx Confirmed 07/21/22] prazosin 5 mg capsule 2 mg PO QHS 04/14/22 [History Confirmed 07/21/22] simvastatin 20 mg tablet 20 mg PO QPM #90 tabs 04/14/22 [Rx Confirmed 07/21/22] sumatriptan succinate 50 mg tablet See Rx Instructions PO .COMPLEX #14 tabs 04/14/22 [Rx Confirmed 07/21/22] guaifenesin 400 mg tablet 400 mg PO TID PRN congestion #30 tabs 05/05/22 [Rx Confirmed 07/21/22] lidocaine 5 % topical patch (Lidoderm) 1 patch topical DAILY #15 ea 05/09/22 [Rx Confirmed 07/21/22] pantoprazole 40 mg tablet,delayed release 40 mg PO DAILY #30 tabs 05/10/22 [Rx Confirmed 07/21/22] gabapentin 600 mg tablet 600 mg PO TID nerve pain #90 tabs 06/21/22 [Rx Confirmed 07/21/22] promethazine 25 mg tablet 25 mg PO BID PRN nausea and vomiting #60 tabs 06/21/22 [Rx Confirmed 07/21/22] ondansetron 4 mg disintegrating tablet 8 mg PO Q8H PRN PRN Nausea #90 tabs 07/04/22 [Rx Confirmed 07/21/22] scopolamine base 1 mg over 3 days transdermal patch 1 patch transdermal Q3D PRN nausea and vomiting #10 ea 07/04/22 [Rx Confirmed 07/21/22] levetiracetam 500 mg tablet (Keppra) 500 mg PO BID #180 tabs 07/11/22 [Rx Confirmed 07/21/22] prednisone 50 mg tablet 50 mg PO DAILY #3 tabs 07/18/22 [Rx Confirmed 07/21/22] lubiprostone 24 mcg capsule (Amitiza) 24 mcg PO BID #60 caps 07/21/22 [Rx Confirmed 07/21/22] metoclopramide HCl 10 mg tablet 10 mg PO QAC #30 tabs 07/21/22 [Rx Confirmed ] PFSH Medical History? Abdominal pain Abdominal pain Acute cystitis Anxiety Arthritis Back pain Back problem Lamar's palsy Blurry vision, left eye Carpal tunnel syndrome Cellulitis Cervical cancer Chronic lumbar radiculopathy Colon polyp Debility Depression Difficulty chewing Dizziness Elevated antinuclear antibody (PAT) level Elevated blood pressure reading Fall Fatty liver Fibromyalgia Flu vaccine need Foot pain, left Gastric reflux Gastrointestinal problem GI bleed Headache Health care maintenance Hearing problem Hematuria History of IBS Hives Hx of emotional problems Hypokalemia Injury of head and neck Insect bite Interstitial cystitis Irritable bowel syndrome Kidney stones Lipoma Lupus Neuropathy Osteoarthritis Physical debility Positive P-ANCA titer Post-menopausal Right shoulder pain Seasonal allergies Seizures Seizures Sludge in gallbladder Smoker Stroke Ulcer Uterine cancer UTI (urinary tract infection) Wheel chair as ambulatory aid Wheelchair dependent Surgical History? History of appendectomy History of bladder repair surgery History of carpal tunnel surgery of right wrist History of colonoscopy History of esophagogastroduodenoscopy (EGD) History of hysterectomy History of orthopedic surgery History of spinal surgery Hx of repair of right rotator cuff Hx of surgical procedure Hx of surgical procedure S/P left knee surgery S/P umbilical hernia repair, follow-up exam Status post left foot surgery Family History? Father AsthmaGrandfather ?? No problems noted. Grandmother AsthmaBrother Lung cancer Diabetes HypertensionGrandfather AsthmaGrandmother Asthma HypertensionMother DiabetesAunt DiabetesSon Seizures Asthma Social History? Smoking Status:? Current every day smoker tobacco type: cigarettes alcohol intake:? never substance use type:? does not use what type of physical activity do you participate in:? none HPI HPI Chief Complaint: f/u Details: CHARLOTTE VASQUEZ, is a 46 F who presents to the office today for f/u ongoing upper abdominal pain with chronic nausea and vomiting. Pain is worse after eating so she limits herself to one meal a day. Almost constant pain. RUQ US was done in ED on 06/12/22--normal gallbladder. Her HIDA was normal in 07/2021. She is unable to have MRI due to metal. No relief with pancreatic enzymes. She didn't get gastric emptying study. Reports worsening dysphagia, choking on food and pills. Daily nausea, frequent vomiting, despite scopolamine patch, ondansetron, promethazine. She says she did get some temporary relief of symptoms from metoclopramide from ED. No relief from dicyclomine or hyoscyamine. She is also on pantoprazole. Reports constipation, may have BM only every 7-10 days, then painful, can have small amt bright red blood.? 06/2021 colonoscopy--one small tubular adenoma. She saw [employer] Dr Lamine Webb at [facility]. Dr Diaz performed EGD 09/09/2021??it showed ectopic gastric mucosa in the upper third of the esophagus, grade B reflux esophagitis, normal stomach, normal duodenum; Biopsies in the proximal esophagus and distal esophagus were negative for Garay's. No marijuana or other drugs, no alcohol Capsule endoscopy--no active bleeding. small fissure in stomach. no mass. 07/2021 HIDA scan normal 07/2021, EF 70% CT showed sludge in the gallbladder 07/2021 Normal liver elastography 07/2021 US showed hepatomegaly and fatty liver 06/2021 ROS Const Constitutional: No fatigue ENT ENT: No difficulty swallowing Gastro GI: No abdominal pain, belching, bloating, change in bowel habits, change in stool character, coffee ground emesis, constipation, cramping, diarrhea, heartburn, difficulty swallowing, feeling full early, excessive flatus, incontinent of stools, Vomiting blood/hematemesis, Blood in stool, loose stools, Black,tarry stools, nausea/dyspepsia, pain with swallowing, vomiting or other Musc Musculoskeletal: No joint pain Skin Skin: No yellowing of the eye or itchy eyes Psych Psychiatric: No anxiety and No depression Endo Endocrine: No fatigue Aller/Imm Allergy/Immunologic: No itchy eyes Esteban/Lymp Hematologic/Lymphatic: No easy bleeding or easy bruising Exam Const General: cooperative and no acute distress Orientation: alert, awake and oriented x3 Other: in wheelchair, right arm in sling HENMT Teeth and gingiva: edentulous Eyes Sclera: sclerae normal Resp Effort & Inspection: normal respiratory effort GI Inspection: obesity Palpation: soft, no hepatosplenomegaly, no masses and tender in the epigastrum Quality Reporting Tobacco Screening ([facility]) Smoking Status: Current every day smoker Assessment and Plan Assessment and Plan (1) Nausea and vomiting: ?Status:?Chronic ?Plan: Gastric emptying study She reports some relief from metoclopramide at recent ED visit so a small rx was provided today Will schedule EGD for worsening dysphagia, ongoing upper abd pain, ongoing nausea and vomiting (2) Epigastric pain: ?Status:?Chronic ?Plan: see above (3) Constipation: ?Status:?Chronic ?Plan: No relief with metamucil, miralax, colace. Rx amitiza 24 mcg bid (4) Dysphagia: ?Status:?Chronic ?Plan: as above ? ? ? Orders: Orders Gastric Emptying Study Today R10.13 - Epigastric pain, R11.2 - Nausea with vomiting, unspecified, R68.81 - Early satiety ? Medications: New lubiprostone (Amitiza) 24 mcg? PO BID 60 caps 5RF ? ? metoclopramide HCl ?? administer 30 minutes before meals 10 mg? PO QAC 30 tabs 0RF ? ? Discontinued dicyclomine ?? Discontinued Reason:? Order Completed ?TAKE 1 CAPSULE BY MOUTH THREE TIMES A DAY 84 caps 2RF ? ? I have examined the patient and the H&P has been reviewed. There are no clinical changes since date of exam.
--- NOTE | 2022-09-27 08:00 | OP.EGD_ITS ---
Patient Name: Crys Franks Procedure Date: 09/27/2022 7:38 AM Date of : 1975 Age: 47 Procedure: Upper GI endoscopy Indications: Dysphagia Providers: Gary Diaz DO Medicines: Monitored Anesthesia Care Patient Profile: This is a 47 year old female. Refer to note in patient chart for documentation of history and physical. Patient has symptoms of acute dysphagia, dysphagia with both liquids and solids and chronic nausea. Complications: No immediate complications. Procedure: Pre-Anesthesia Assessment: - Prior to the procedure, a History and Physical was performed, and patient medications and allergies were reviewed. The risks and benefits of the procedure and the sedation options and risks were discussed with the patient. All questions were answered and informed consent was obtained. Patient identification and proposed procedure were verified by the physician in the pre-procedure area. Mental Status Examination: alert and oriented. Respiratory Examination: clear to auscultation. Prophylactic Antibiotics: The patient does not require prophylactic antibiotics. Prior Anticoagulants: The patient has taken no previous anticoagulant or antiplatelet agents. ASA Grade Assessment: II - A patient with mild systemic disease. After reviewing the risks and benefits, the patient was deemed in satisfactory condition to undergo the procedure. The anesthesia plan was to use monitored anesthesia care (MAC). Immediately prior to administration of medications, the patient was re-assessed for adequacy to receive sedatives. The heart rate, respiratory rate, oxygen saturations, blood pressure, adequacy of pulmonary ventilation, and response to care were monitored throughout the procedure. The physical status of the patient was re-assessed after the procedure. After obtaining informed consent, the endoscope was passed under direct vision. Throughout the procedure, the patient's blood pressure, pulse, and oxygen saturations were monitored continuously. The gastroscope was introduced through the mouth, and advanced to the second part of duodenum. The upper GI endoscopy was accomplished without difficulty. The patient tolerated the procedure well. Scope In: 7:44:20 AM Scope Out: 7:51:45 AM Total Procedure Duration Time 0 hours 7 minutes 25 seconds Findings: Mucosal changes including feline appearance, longitudinal furrows and small-caliber esophagus were found in the lower third of the esophagus. Biopsies were obtained from the proximal and distal esophagus with cold forceps for histology of suspected eosinophilic esophagitis. Verification of patient identification for the specimen was done. Estimated blood loss was minimal. One benign-appearing, intrinsic stenosis was found 18 to 20 cm from the incisors. This stenosis was moderately severe and. The stenosis was traversed. A guidewire was placed and the scope was withdrawn. Dilation was performed with a Savary dilator with no resistance at 54 Fr. The dilation site was examined and showed moderate improvement in luminal narrowing. Estimated blood loss was minimal. A small hiatal hernia was present. A benign-appearing, intrinsic moderate stenosis was found at the pylorus. This was traversed. A TTS dilator was passed through the scope. Dilation with a 15 mm pyloric balloon dilator was performed. The dilation site was examined and showed moderate improvement in luminal narrowing. Estimated blood loss was minimal. Patchy mildly erythematous mucosa without active bleeding and with no stigmata of bleeding was found in the duodenal bulb. Biopsies were taken with a cold forceps for histology. Verification of patient identification for the specimen was done. Estimated blood loss was minimal. Impression: - Esophageal mucosal changes consistent with eosinophilic esophagitis. Biopsied. - Benign-appearing esophageal stenosis. Dilated. - Small hiatal hernia. - Gastric stenosis was found at the pylorus. Dilated. - Erythematous duodenopathy. Biopsied. Recommendation: - Discharge patient to home. - Resume previous diet. - Continue present medications. - Await pathology results. Procedure Code(s): --- Professional --- 42941, Esophagogastroduodenoscopy, flexible, transoral; with dilation of gastric/duodenal stricture(s) (eg, balloon, bougie) 10858, Esophagogastroduodenoscopy, flexible, transoral; with insertion of guide wire followed by passage of dilator(s) through esophagus over guide wire 02964, 59,51, Esophagogastroduodenoscopy, flexible, transoral; with biopsy, single or multiple CPT copyright 2017 [employer]. All rights reserved. The codes documented in this report are preliminary and upon medical insurance coder review may be revised to meet current compliance requirements. Gary Diaz DO 09/27/2022 8:00:21 AM This report has been signed electronically. Number of Addenda: 0 Note Initiated On: 09/27/2022 7:38 AM
--- NOTE | 2022-09-27 08:01 | OP.CCLET_ITS ---
09/27/2022 Gayle Munoz MD [address] [place] [address] [place] [address] Re : Upper GI endoscopy procedure for Crys Franks Dear Dr. Munoz This procedure was performed on Tuesday, September 27, 2022. My impressions and recommendations are as follows: Impressions : - Esophageal mucosal changes consistent with eosinophilic esophagitis. Biopsied. - Benign-appearing esophageal stenosis. Dilated. - Small hiatal hernia. - Gastric stenosis was found at the pylorus. Dilated. - Erythematous duodenopathy. Biopsied. Recommendations : - Discharge patient to home. - Resume previous diet. - Continue present medications. - Await pathology results. My findings are described in the full procedure note, which is enclosed. If I can be of further assistance, please feel free to contact me at . Sincerely, Gary Diaz, 09/27/2022 8:00:21 AM This report has been signed electronically.
== END 2022-09-27 08:32 | disposition home or self-care (01) ==
LOC: EN 06:24 → AC 06:25
PROVIDERS: PCP Internal Medicine; Referring Provider Internal Medicine; Visit Provider Internal Medicine Gastroenterology
PROC: 0DJ08ZZ Inspection of Upper Intestinal Tract, Via Natural or Artificial Opening Endoscopic (ICD-10-PCS; CPT 43235; principal; 2022-09-27 07:25)
DX: K22.2 Esophageal obstruction (principal); M32.9 Systemic lupus erythematosus, unspecified; R56.9 Unspecified convulsions; R13.10 Dysphagia, unspecified; K44.9 Diaphragmatic hernia without obstruction or gangrene; K21.00 Gastro-esophageal reflux disease with esophagitis, without bleeding; F17.210 Nicotine dependence, cigarettes, uncomplicated; K92.0 Hematemesis; R10.10 Upper abdominal pain, unspecified; K76.0 Fatty (change of) liver, not elsewhere classified; F32.A Depression, unspecified; F41.9 Anxiety disorder, unspecified; Z86.010 Personal history of colon polyps; Z79.899 Other long term (current) drug therapy; Z86.73 Personal history of transient ischemic attack (TIA), and cerebral infarction without residual deficits
CPT/HCPCS: 43245; 43248; 43239; 71045; 80053; 83690; 85025; 88305; 96365; 96375; 99283; J7030; J7120; A4216; C1769; J2405

== ENCOUNTER 2022-09-27 17:01 | Emergency (ER) | payer MEDICAID, SELFPAY ==
[2022-09-27 17:02] VITALS: BP 131/61; PULSE 97; RESP 14; TEMP 36.6; O2SAT 97; BMI 29.0
--- NOTE | 2022-09-27 17:13 | EX.ED.DYSGE1 ---
HPI History of Present Illness Chief Complaint: Nausea/Vomiting Detail of Chief Complaint: Nausea and vomiting after EGD Informant: patient Narrative Narrative: Patient presents to the emergency department with complaint of nausea and vomiting that started at approximately 11:30 AM. Patient had an EGD this morning because she is been complaining of some difficulty swallowing. Patient's had problems with throwing up blood at times. She was told she may have esophagitis. She did have some biopsies taken. Patient states that she is thrown up about 7 times and she had some clots and blood the first 2 times she threw up. She continues to throw up blood anytime she tries to eat or drink. She complains of abdominal pain in the upper abdomen as well as in her chest. Patient also complains of a migraine headache. [facility] Medical History Abdominal pain Abdominal pain Acute cystitis Anxiety Arthritis Back pain Back problem Lamar's palsy Blurry vision, left eye Carpal tunnel syndrome Cellulitis Cervical cancer Chronic lumbar radiculopathy Colon polyp Debility Depression Difficulty chewing Dizziness Elevated antinuclear antibody (PAT) level Elevated blood pressure reading Fall Fatty liver Fibromyalgia Flu vaccine need Foot pain, left Gastric reflux Gastrointestinal problem GI bleed Headache Health care maintenance Hearing problem Hematuria History of IBS Hives Hx of emotional problems Hypokalemia Injury of head and neck Insect bite Interstitial cystitis Irritable bowel syndrome Kidney stones Lipoma Lupus Neuropathy Osteoarthritis Physical debility Positive P-ANCA titer Post-menopausal Right shoulder pain Seasonal allergies Seizures Seizures Sludge in gallbladder Smoker Stroke Ulcer Uterine cancer UTI (urinary tract infection) Wheel chair as ambulatory aid Wheelchair dependent Home Medications topiramate 200 mg tablet 200 mg PO QHS headaches 08/15/18 [History Last Taken Unknown] duloxetine 30 mg capsule,delayed release 30 mg PO QHS depression 06/09/19 [History Last Taken Unknown] trazodone 100 mg tablet 300 mg PO QHS sleep 10/28/19 [History Last Taken Unknown] carbamazepine 200 mg tablet 200 mg PO BID seizures 03/22/20 [History Last Taken 09/27/22] hydroxyzine pamoate 25 mg capsule 50 mg PO TID PRN Anxiety 03/22/20 [History Last Taken Unknown] Handicap Placard #1 ea 05/03/20 [Rx Last Taken Unknown] baclofen 10 mg tablet 10 mg PO TID 03/23/21 [History Last Taken 12/08/21] remington (Ultra-Light Rollator [facility] [place] #1 ea 09/26/21 [Rx Last Taken Unknown] quetiapine 300 mg tablet (Seroquel) 700 mg PO DAILY 02/22/22 [History Last Taken Unknown] albuterol sulfate 90 mcg/actuation aerosol inhaler 1 - 2 puff inhalation Q6H PRN shortness of breath or wheezing #8.5 grams 04/14/22 [Rx Last Taken Unknown] epinephrine 0.3 mg/0.3 mL injection, auto-injector (EpiPen 2-Raymond) 0.3 mg (0.3 mL) IM Q5-15M PRN anaphylaxis #2 ea 04/14/22 [Rx Last Taken Unknown] prazosin 5 mg capsule 4 mg PO QHS 04/14/22 [History Last Taken Unknown] simvastatin 20 mg tablet 20 mg PO QPM #90 tabs 04/14/22 [Rx Last Taken Unknown] scopolamine base 1 mg over 3 days transdermal patch 1 patch transdermal Q3D PRN nausea and vomiting #10 ea 07/04/22 [Rx Last Taken Unknown] lubiprostone 24 mcg capsule (Amitiza) 24 mcg PO BID #60 caps 07/21/22 [Rx Last Taken Unknown] ondansetron 4 mg disintegrating tablet 4 mg PO Q6H PRN nausea and vomiting #20 tabs 07/25/22 [Rx Last Taken Unknown] pantoprazole 40 mg tablet,delayed release 40 mg PO DAILY #30 tabs 08/03/22 [Rx Last Taken Unknown] remington (Ultra-Light Rollator [facility] [place] #1 ea 08/10/22 [Rx Last Taken Unknown] aripiprazole 10 mg tablet 10 mg PO DAILY 08/15/22 [History Last Taken Unknown] duloxetine 60 mg capsule,delayed release 60 mg PO QHS 08/15/22 [History Last Taken Unknown] hydroxychloroquine 200 mg tablet 200 mg PO BID 08/15/22 [History Last Taken Unknown] sumatriptan succinate 100 mg tablet 100 mg PO .COMPLEX #14 tabs 08/15/22 [Rx Last Taken Unknown] celecoxib 200 mg capsule 200 mg PO DAILY PRN pain #90 caps 08/29/22 [Rx Last Taken Unknown] dicyclomine 10 mg capsule 10 mg PO Q6H #100 caps 08/30/22 [Rx Last Taken Unknown] promethazine 25 mg tablet See Rx Instructions .Route .COMPLEX #60 tabs 09/18/22 [Rx Last Taken Unknown] gabapentin 600 mg tablet 600 mg PO TID nerve pain #90 tabs 09/26/22 [Rx Last Taken 09/27/22] levetiracetam 500 mg tablet (Keppra) 500 mg PO BID #180 tabs 09/26/22 [Rx Last Taken 09/27/22] Allergy/AdvReac Type Severity Reaction Status Date / Time venom-honey bee Allergy Severe severe Verified 09/27/22 17:02 venom-wasp Allergy Severe severe Verified 09/27/22 17:02 ciprofloxacin [From Cipro] Allergy Rash Verified 09/27/22 17:02 erythromycin base Allergy Anaphylaxis Verified 09/27/22 17:02 iodine Allergy Anaphylaxis Verified 09/27/22 17:02 latex Allergy Rash Verified 09/27/22 17:02 metronidazole [From Flagyl] Allergy Anaphylaxis Verified 09/27/22 17:02 naproxen [From Naprosyn] Allergy Anaphylaxis Verified 09/27/22 17:02 Penicillins Allergy Anaphylaxis Verified 09/27/22 17:02 shellfish derived Allergy Anaphylaxis Verified 09/27/22 17:02 adhesive AdvReac Mild BLISTERS Verified 09/27/22 17:02 sulfamethoxazole AdvReac Hives Verified 09/27/22 17:02 [From Bactrim] trimethoprim [From Bactrim] AdvReac Hives Verified 09/27/22 17:02 Family History Father Asthma Grandfather No problems noted. Grandmother Asthma Brother Lung cancer Diabetes Hypertension Grandfather Asthma Grandmother Asthma Hypertension Mother Diabetes Aunt Diabetes Son Seizures Asthma Surgical History History of appendectomy History of bladder repair surgery History of carpal tunnel surgery of right wrist History of colonoscopy History of esophagogastroduodenoscopy (EGD) History of hysterectomy History of orthopedic surgery History of spinal surgery Hx of repair of right rotator cuff Hx of surgical procedure Hx of surgical procedure S/P left knee surgery S/P umbilical hernia repair, follow-up exam Status post left foot surgery Social History Smoking Status: Current every day smoker tobacco type: cigarettes alcohol intake: never substance use type: does not use what type of physical activity do you participate in: none ROS ROS ED Review of Systems ROS Unobtainable: other Constitutional Constitutional ED: Reports lethargy; Denies chills, fever(s), sweats or weight loss Eyes Eyes: Denies blurry vision, change in vision or diplopia ENT ENT ED: Denies rhinorrhea or sore throat Cardiovascular Cardiovascular: Reports chest pain; Denies orthopnea or racing heartbeat Respiratory/Chest Respiratory/Chest: Denies cough, dyspnea, dyspnea on exertion, orthopnea or sputum Gastrointestinal Gastrointestinal: Reports abdominal pain, nausea, vomiting and other Details: Hematemesis ; Denies diarrhea Genitourinary Genitourinary ED: Denies dysuria, hematuria or urinary frequency Musculoskeletal Musculoskeletal: Denies arthralgias, back pain, myalgias or neck pain Integumentary Denies abscess, Abrasions or rash Neurologic Neurologic: Denies headache(s) or weakness Psychiatric Psychiatric: Denies anxiety, depression or suicidal thoughts Endocrine Endocrinology: Denies polydipsia, polyphagia or polyuria Hematologic/Lymphatic Hematologic/Lymphatic: Denies easy bleeding, easy bruising or lymphadenopathy Allergic/Immunologic Allergic/Immunologic ED: Denies mouth swelling, tongue swelling or urticaria EXAM Physical Exam Const Vital Signs: 09/27/22 17:02 09/27/22 17:17 Temperature 98 F Temperature Source Temporal Pulse Rate 97 Pulse Rate [Lying] 89 Pulse Rate [Sitting (for 1 minute prior to obtaining)] 89 Pulse Rate [Standing (for 1 minute prior to obtaining)] 87 Respiratory Rate 14 Blood Pressure 131/61 H Blood Pressure [Lying] 116/53 L Blood Pressure [Sitting (for 1 minute prior to obtaining)] 124/65 H Blood Pressure [Standing (for 1 minute prior to obtaining)] 115/67 Blood Pressure Mean 84 Blood Pressure Mean [Lying] 74 Blood Pressure Mean [Sitting (for 1 minute prior to obtaining)] 84 Blood Pressure Mean [Standing (for 1 minute prior to obtaining)] 83 Pulse Ox 97 Oxygen Delivery Method Room Air Positive well nourished and well developed General Appearance ED: well developed and NAD HEENT Reports TM's clear and moist mucous membranes normocephalic and atraumatic; Negative for trauma or tenderness Tympanic Membrane ED: Yes TM's clear Eyes PERRL and EOMs intact bilaterally General Eye ED: Negative for pale conjunctiva or scleral icterus Neck no lymphadenopathy, supple and no JVD General: Negative for tenderness Chest Wall inspection of chest normal and palpation of chest normal Chest: Negative for tenderness Resp normal respiratory effort and clear to auscultation bilaterally Effort and Inspection: Negative for respiratory distress or pain with movement Auscultation: Negative for rhonchi, wheezes or diminished lung sounds Cardio regular rate, regular rhythm, S1 normal heart sound, S2 normal heart sound and no murmurs Peripheral Pulses: pulses 2+ throughout GI normal to inspection, nondistended, normoactive bowel sounds, soft to palpation, non-distended and no masses GI Narrative: Tenderness to palpation over the epigastric region with some moderate guarding. There is no rebound, rigidity, or. Signs Back/Spine no CVA tenderness and no thoracic nor lumbar tenderness Extremity normal to inspection General Extremety ED: Negative for edema General Extremity: Negative for edema Neuro oriented x3, CN's II-XII intact bilaterally, no sensory deficits noted and gait normal Sensorium / Orientation: awake, alert, oriented to person, oriented to place and oriented to time Motor Exam: strength 5/5 throughout and strength abnormal Psych mental status grossly normal Skin no rashes or lesions noted and no wounds MDM MDM MDM Narrative Medical decision making narrative: Patient presents to the emergency department with nausea and vomiting and hematemesis after having EGD done this morning. Patient also complaining of typical migraine headache. An IV line established. Patient was given a liter of the same fluid bolus. She was medicated with Reglan and 4 mg of morphine. Patient also given an IV bolus of Protonix IV. CBC with differential obtained showed a white count of 5.4 with a hemoglobin 12.5 and platelet count of 190. Patient had normal chemistries and LFTs that were essentially unremarkable. Lipase was 32. We did perform a chest x-ray and on my interpretation I see no evidence of pneumomediastinum or free air under the diaphragm. On repeat examination and evaluation of the patient at 1830 she is feeling markedly improved. Patient has not had any further vomiting. I will discuss case with patient's director mission Dr. Diaz who referred patient to the emergency department. Clinically she looks well and feel she can be discharged to home. She also had orthostatic vital signs here that were negative. Lab Data Attestation: I reviewed the patient's lab results. Labs: Laboratory Results - last 24 hr 09/27/22 09/27/22 17:20 17:20 WBC 5.4 RBC 3.57 L Hgb 12.5 Hct 35.7 L MCV 100.0 H MCH 35.0 H MCHC 35.0 RDW Std Deviation 48.4 H RDW Coeff of Karina 13.1 Plt Count 190 MPV 12.1 H Immature Gran % (Auto) 0.400 Neut % (Auto) 48.2 Lymph % (Auto) 40.7 Whitman % (Auto) 7.5 Eos % (Auto) 2.8 Baso % (Auto) 0.4 Absolute Neuts (auto) 2.6 Absolute Lymphs (auto) 2.18 Nucleated RBC % 0 Sodium 142 Potassium 4.3 Chloride 111 H Carbon Dioxide 22.0 Anion Gap 9 BUN 11 Creatinine 0.74 Estim Creat Clear Calc 92.38 Est GFR (MDRD) Af Amer 108 Est GFR (MDRD) Non-Af 90 BUN/Creatinine Ratio 14.8 Glucose 89 Calcium 8.4 L Total Bilirubin 0.30 AST 23 ALT 13 Alkaline Phosphatase 120 H Total Protein 7.1 Albumin 3.2 Globulin 3.9 Albumin/Globulin Ratio 0.8 L Lipase 32 Radiography Diagnostic Testing: Clinical Impression(s) from Imaging Studies Chest X-Ray 09/27/22 17:32 IMPRESSION: Normal x-ray examination of the chest. Electronically Signed: John Huizar MD at 18:22 EDT Reading Location ID and State: [address] [place] [address] , Service support , 1 view chest x-ray obtained interpreted by myself as no evidence of pneumothorax or pneumomediastinum. No free air noted under the diaphragms. There appeared to be some sort of a probe in the midline of the chest x-ray which may be related to the EGD today. Discharge Plan Triage Chief Complaint: Nausea/Vomiting ED Provider: Alona Campo Dx/Rx/DC Orders Clinical Impression: Nausea & vomiting, Hematemesis, Abdominal pain Instructions: ED Abdominal Pain Unkn Cause Fem, ED Upper GI Bleeding (Stable), ED Vomiting (Adult) Prescriptions: No Action topiramate 200 mg tablet 200 mg PO QHS carbamazepine 200 mg tablet 200 mg PO BID Label Comments: 1 Tab AM & 2 PM duloxetine 30 mg capsule,delayed release(DR/EC) 30 mg PO QHS baclofen 10 mg tablet 10 mg PO TID quetiapine [Seroquel] 300 mg tablet 700 mg PO DAILY lubiprostone [Amitiza] 24 mcg capsule 24 mcg PO BID Qty: 60 5RF epinephrine [EpiPen 2-Raymond] 0.3 mg/0.3 mL auto-injector 0.3 mg IM Q5-15M PRN (Reason: anaphylaxis) Qty: 2 3RF Rx Instructions: do not exceed 3 doses per episode simvastatin 20 mg tablet 20 mg PO QPM Qty: 90 1RF albuterol sulfate 90 mcg/actuation HFA aerosol inhaler 1 - 2 puff inhalation Q6H PRN (Reason: shortness of breath or wheezing) Qty: 8.5 0RF hydroxychloroquine 200 mg tablet 200 mg PO BID duloxetine 60 mg capsule,delayed release(DR/EC) 60 mg PO QHS aripiprazole 10 mg tablet 10 mg PO DAILY sumatriptan succinate 100 mg tablet 100 mg PO .COMPLEX Qty: 14 2RF Rx Instructions: 100 mg orally; take one at the onset of a migraine, not to exceed more than 1 daily trazodone 100 mg tablet 300 mg PO QHS hydroxyzine pamoate 25 mg capsule 50 mg PO TID PRN (Reason: Anxiety) prazosin 5 mg capsule 4 mg PO QHS ondansetron 4 mg tablet,disintegrating 4 mg PO Q6H PRN (Reason: nausea and vomiting) Qty: 20 0RF (DME) Handicap Placard See Rx Instructions .Route .MEDSUPPLY Qty: 1 0RF Rx Instructions: As directed, length of time 3 years (DME) Ultra-Light Rollator Misc See Rx Instructions .Route Qty: 1 0RF Rx Instructions: As directed scopolamine base 1 mg over 3 days patch 3 day 1 patch transdermal Q3D PRN (Reason: nausea and vomiting) Qty: 10 5RF pantoprazole 40 mg tablet,delayed release (DR/EC) 40 mg PO DAILY Qty: 30 2RF (DME) Ultra-Light Rollator Misc See Rx Instructions .Route Qty: 1 0RF Rx Instructions: As directed celecoxib 200 mg capsule 200 mg PO DAILY PRN (Reason: pain) Qty: 90 0RF dicyclomine 10 mg capsule 10 mg PO Q6H Qty: 100 1RF promethazine 25 mg tablet See Rx Instructions .ROUTE .COMPLEX Qty: 60 2RF Dose Instruction: TAKE 1 TABLET BY MOUTH TWICE A DAY NEEDED FOR NAUSEA OR VOMITING Rx Instructions: TAKE 1 TABLET BY MOUTH TWICE A DAY NEEDED FOR NAUSEA OR VOMITING gabapentin 600 mg tablet 600 mg PO TID Qty: 90 1RF levetiracetam [Keppra] 500 mg tablet 500 mg PO BID Qty: 180 0RF Primary Care Provider: Gayle Munoz Referrals: Gayle Munoz MD [Primary Care Provider] - Gary Diaz DO [Med Staff - Active Staff] - 3-5 Days Disposition Disposition: Home, Self Care
[2022-09-27 17:17] VITALS: BP 115/67; BP 116/53; BP 124/65; PULSE 87; PULSE 89
[2022-09-27] MEDS: Morphine 4 MG/ML Syringe IV (17:18)
[2022-09-27] MEDS: 0.9% Normal Saline 1,000 ML 1000 ML IV (17:18)
[2022-09-27] MEDS: Metoclopramide 10 MG/2 ML Vial IV (17:18)
--- NOTE | 2022-09-27 17:32 | RAD_ITS ---
STUDY: X-RAY CHEST REASON FOR EXAM: Female, 47 years old. chest pain after egd TECHNIQUE: AP portable COMPARISON: March 14, 2021 FINDINGS: The lungs are clear and expanded. There is no demonstrated pleural abnormality. Normal size heart. Normal mediastinum and janette. Normal visualized pulmonary arteries. Normal visualized aortic arch and descending thoracic aorta. Spinal stimulator noted within the lower thoracic canal.. Normal visualized ribs, clavicles, and shoulders. There is no demonstrated abnormality of the visualized soft tissue structures of the upper abdomen. RAD/Chest 1 View (Portable) IMPRESSION: Normal x-ray examination of the chest. Electronically Signed: John Huizar MD at 18:22 EDT ,
[2022-09-27 17:43] LABS: Absolute Lymphocyte Count 2.18 X10^3/uL (0.83-4.51); Absolute Neutrophil Count 2.6 X10^3/uL (2.0-7.7); Basophil# 0.02 X10^3/uL; Basophil% 0.4 % (0-1); Eosinophil# 0.15 X10^3/uL; Eosinophils% 2.8 % (0-5); Hematocrit 35.7 % (37-47); Hemoglobin 12.5 g/dL (12.0-15.0); Lymphocyte # 2.18 X10^3/ul (0.83-4.51); Lymphocyte % 40.7 % (19-41); Mean Platelet Vol. 12.1 fl (6.2-12.0); Monocyte% 7.5 % (0-10); NRBC Flagged by Analyzer 0 % (0-5); Neutrophil # 2.59 X10^3/uL (2.7-7.7); Neutrophil % 48.2 % (47-70); Platelet Count 190 K/mm3 (150-450); RBC Distribution Width CV 13.1 % (11.6-14.6); RBC Distribution Width SD 48.4 fl (35.1-43.9); Red Blood Count 3.57 M/mm3 (4.2-5.4); White Blood Count 5.4 K/mm3 (4.4-11.0)
[2022-09-27 18:15] LABS: ALB/GLOB Ratio 0.8 RATIO (0.9-2.4); AST(SGOT) 23 U/L (15-37); Alanine Aminotransfer ALT/SGPT 13 U/L (13-56); Albumin, Serum 3.2 g/dL (3.2-5.0); Alkaline Phosphatase 120 U/L (45-117); Anion Gap 9 (5-15); BUN 11 mg/dL (7-18); BUN/Creat Ratio 14.8 RATIO (10-20); Calcium,Total 8.4 mg/dL (8.5-10.1); Chloride 111 mmol/L (98-107); Creatinine, Serum 0.74 mg/dL (0.55-1.02); EST Glomerular Filtration Rate 90 mL/min (>60); Est Glom Filt Rate - Afr Amer 108 mL/min (>60); Estimated Creatinine Clearance 92.38 ml/min; Globulin 3.9 g/dL (2.2-4.2); Glucose 89 mg/dL (74-106); Lipase 32 U/L (13-75); Potassium 4.3 mmol/L (3.5-5.1); Protein, Total 7.1 g/dL (6.4-8.2); Sodium Level 142 mmol/L (136-145)
[2022-09-27 18:46] VITALS: BP 112/71
== END 2022-09-27 18:46 | disposition home or self-care (01) ==
PROVIDERS: Emergency Provider Emergency Medicine; PCP Internal Medicine; Visit Provider Emergency Medicine
DX: K92.0 Hematemesis (principal); R56.9 Unspecified convulsions; R10.10 Upper abdominal pain, unspecified; K76.0 Fatty (change of) liver, not elsewhere classified; F17.210 Nicotine dependence, cigarettes, uncomplicated; F32.A Depression, unspecified; F41.9 Anxiety disorder, unspecified; K21.9 Gastro-esophageal reflux disease without esophagitis; Z86.73 Personal history of transient ischemic attack (TIA), and cerebral infarction without residual deficits; Z79.899 Other long term (current) drug therapy; Z86.010 Personal history of colon polyps
CPT/HCPCS: 71045; 80053; 83690; 85025; 96365; 96375; 99283; A4216; J2405; J7030; J7120

== ENCOUNTER 2022-12-07 13:33 | Emergency (ER) | payer MEDICAID, SELFPAY ==
[2022-12-07 13:34] VITALS: BP 116/56; PULSE 98; RESP 18; TEMP 36.2; O2SAT 97; BMI 34.4
--- NOTE | 2022-12-07 14:33 | US_ITS ---
PROCEDURE: ABDOMINAL ULTRASOUND, RIGHT UPPER QUADRANT COMPARISONS: CT abdomen and pelvis 07/25/2022. CLINICAL INDICATION: RUQ PAIN, NAUSEA, DIZZINESS TECHNIQUE: Real-time negron-scale abdominal ultrasound. Limited color Doppler evaluation is performed. FINDINGS: Liver: Normal in size. Mildly increased echotexture diffusely. Appropriate hepatopetal flow is present in the main portal vein. Gallbladder: Normal wall thickness. No gallstones. Sonographic Greenberg''s sign is absent. No pericholecystic fluid is present. Biliary Tree: Nondilated. Common bile duct measures 4 mm. Pancreas: Largely obscured by bowel gas. Right kidney: Normal in size and echogenicity. No hydronephrosis or stones. The right kidney measures 11.3 cm in long axis. No free fluid. US/Gallbladder IMPRESSION: Mild fatty infiltration of the liver. No acute findings. Electronically Signed: Nathanael Galeano MD at 17:13 EDT ,
--- NOTE | 2022-12-07 14:33 | EKG12_ITS ---
Test Reason : Blood Pressure : / mmHG Vent. Rate : 074 BPM Atrial Rate : 074 BPM P-R Int : 158 ms QRS Dur : 094 ms QT Int : 392 ms P-R-T Axes : 040 055 041 degrees QTc Int : 435 ms Normal sinus rhythm Normal ECG Confirmed by JENNIFER RANGEL ([id number]), supervising editor news reel ATIF CINTRON [id number]) on 12/21/2022 10:55:06 AM Referred By: ED PHYS Confirmed By:JENNIFER RANGEL
[2022-12-07] MEDS: Ondansetron 4 MG/2 ML Vial IV (14:56)
[2022-12-07] MEDS: 0.9% Normal Saline 1,000 ML 1000 ML IV (14:56)
[2022-12-07] MEDS: Morphine 4 MG/ML Syringe IV ×2 (14:57→17:10)
[2022-12-07 15:22] LABS: Absolute Lymphocyte Count 1.89 X10^3/uL (0.83-4.51); Absolute Neutrophil Count 2.2 X10^3/uL (2.0-7.7); Basophil# 0.04 X10^3/uL; Basophil% 0.8 % (0-1); Eosinophil# 0.24 X10^3/uL; Eosinophils% 5.1 % (0-5); Hematocrit 38.2 % (37-47); Hemoglobin 12.4 g/dL (12.0-15.0); Lymphocyte # 1.89 X10^3/ul (0.83-4.51); Lymphocyte % 40.1 % (19-41); Mean Corp Hgb Conc 32.5 g/dL (32-36); Mean Corpuscular Hgb 32.8 pg (27.0-32.0); Mean Corpuscular Volume 101.1 fL (81-99); Mean Platelet Vol. 11.9 fl (6.2-12.0); Monocyte# 0.31 X10^3/uL; Monocyte% 6.6 % (0-10); NRBC Flagged by Analyzer 0 % (0-5); Neutrophil # 2.22 X10^3/uL (2.7-7.7); Neutrophil % 47.2 % (47-70); Platelet Count 182 K/mm3 (150-450); RBC Distribution Width CV 12.5 % (11.6-14.6); RBC Distribution Width SD 46.9 fl (35.1-43.9); Red Blood Count 3.78 M/mm3 (4.2-5.4); White Blood Count 4.7 K/mm3 (4.4-11.0)
[2022-12-07 15:51] LABS: Anion Gap 3 (5-15); BUN 14 mg/dL (7-18); BUN/Creat Ratio 17.1 RATIO (10-20); Calcium,Total 8.5 mg/dL (8.5-10.1); Chloride 109 mmol/L (98-107); Creatinine, Serum 0.82 mg/dL (0.55-1.02); EST Glomerular Filtration Rate 80 mL/min (>60); Est Glom Filt Rate - Afr Amer 97 mL/min (>60); Estimated Creatinine Clearance 83.36 ml/min; Glucose 88 mg/dL (74-106); Lipase 80 U/L (13-75); Potassium 3.9 mmol/L (3.5-5.1); Sodium Level 138 mmol/L (136-145); Troponin-I HS < 3 pg/mL (3.0-54.0)
[2022-12-07 16:03] LABS: Color, Urine Yellow (Yellow); Glucose, Dipstick Normal (Normal); Ketone-Dipstick Negative (Negative); Leukocyte Esterase-Dipstick Negative /ul (Negative); Nitrite-Dipstick Negative (Negative); Occult Blood-Urine Negative /ul (Negative); Protein-Dipstick Negative (Negative); Specific Gravity, Urine 1.015 (1.002-1.030); Urine Bilirubin Dipstick Negative (Negative); Urine Clarity Clear (Clear); Urine Urobilinogen Normal (Normal)
[2022-12-07 16:10] LABS: Internal QC Validated? YES +Cl - CLEAR BKGD; Pregnancy, Urine Negative Negative
[2022-12-07 16:45] VITALS: BP 110/72; PULSE 75; RESP 15; O2SAT 95
[2022-12-07 17:18] LABS: AST(SGOT) 15 U/L (15-37); Alanine Aminotransfer ALT/SGPT 19 U/L (13-56); Albumin, Serum 3.4 g/dL (3.2-5.0); Alkaline Phosphatase 129 U/L (45-117); Bilirubin, Direct 0.07 mg/dL (0.00-0.30); Protein, Total 7.4 g/dL (6.4-8.2)
--- NOTE | 2022-12-07 18:07 | CT_ITS ---
INDICATION: right sided abdominal pain EXAMINATION: CT ABDOMEN AND PELVIS WITHOUT CONTRAST - CT Abdomen And Pelvis W/O Contrast Injection TECHNIQUE: Helically acquired images were obtained of the abdomen and pelvis without oral or IV contrast. A radiation dose optimization technique was used for this scan. IV Contrast dosage and agent: None. Oral contrast: None. COMPARISON: 07/25/2022 FINDINGS: LOWER CHEST: Lung bases are clear. No cardiomegaly or pericardial effusion. LIVER: Homogeneous. No focal mass. GALLBLADDER AND BILIARY TREE: No calcified gallstones. No gallbladder distension or wall edema. No intra- or extrahepatic biliary ductal dilation. PANCREAS: No focal cystic or solid mass. SPLEEN: Normal size without focal cystic or solid mass. ADRENAL GLANDS: No nodules. KIDNEYS AND URETERS: Normal renal size and position. No hydronephrosis. PERITONEUM: No ascites or free air. BOWEL: Prior appendectomy changes. No stomach or bowel distension. No focal inflammatory change. LYMPH NODES: No enlarged mesenteric or retroperitoneal lymph nodes. VESSELS: Aorta is non-dilated. URINARY BLADDER: Unremarkable. REPRODUCTIVE ORGANS: Uterus absent. ABDOMINAL WALL: No discrete abdominal or pelvic wall hernia. BONES: No acute or aggressive abnormality. Stable fusion hardware at L5-S1. Stable right-sided stimulator units with right-sided transsacral lead and second leads extending into the thoracic canal. CT/Abdomen/Pelvis without Cont IMPRESSION: No acute findings in the abdomen or pelvis. Electronically Signed: Nathanael Galeano MD at 18:47 EDT ,
--- NOTE | 2022-12-07 19:10 | EDS_ITS ---
HPI History of Present Illness Chief Complaint: Chest Other [facility] Medical History Abdominal pain Abdominal pain Acute cystitis Anxiety
--- NOTE | 2022-12-07 19:10 | ED.VIS.CHEST ---
HPI History of Present Illness Chief Complaint: Chest Other [facility] Medical History Abdominal pain Abdominal pain Acute cystitis Anxiety Arthritis Back pain Back problem Lamar's palsy Blurry vision, left eye Carpal tunnel syndrome Cellulitis Cervical cancer Chronic lumbar radiculopathy Colon polyp Debility Depression Difficulty chewing Dizziness Elevated antinuclear antibody (PAT) level Elevated blood pressure reading Fall Fatty liver Fibromyalgia Flu vaccine need Foot pain, left Gastric reflux Gastrointestinal problem GI bleed Headache Health care maintenance Hearing problem Hematuria History of IBS Hives Hx of emotional problems Hypokalemia Injury of head and neck Insect bite Interstitial cystitis Irritable bowel syndrome Kidney stones Lipoma Lupus Neuropathy Osteoarthritis Physical debility Positive P-ANCA titer Post-menopausal Right shoulder pain Seasonal allergies Seizures Seizures Sludge in gallbladder Smoker Stroke Ulcer Uterine cancer UTI (urinary tract infection) Wheel chair as ambulatory aid Wheelchair dependent Home Medications topiramate 200 mg tablet 200 mg PO QHS headaches 08/15/18 [History Last Taken Unknown] duloxetine 30 mg capsule,delayed release 30 mg PO QHS depression 06/09/19 [History Last Taken Unknown] trazodone 100 mg tablet 300 mg PO QHS sleep 10/28/19 [History Last Taken Unknown] carbamazepine 200 mg tablet 200 mg PO BID seizures 03/22/20 [History Last Taken 09/27/22] hydroxyzine pamoate 25 mg capsule 50 mg PO TID PRN Anxiety 03/22/20 [History Last Taken Unknown] Handicap Placard #1 ea 05/03/20 [Rx Last Taken Unknown] baclofen 10 mg tablet 10 mg PO TID 03/23/21 [History Last Taken 12/08/21] walker (Ultra-Light Rollator misc) #1 ea 09/26/21 [Rx Last Taken Unknown] quetiapine 300 mg tablet (Seroquel) 700 mg PO DAILY 02/22/22 [History Last Taken Unknown] albuterol sulfate 90 mcg/actuation aerosol inhaler 1 - 2 puff inhalation Q6H PRN shortness of breath or wheezing #8.5 grams 04/14/22 [Rx Last Taken Unknown] epinephrine 0.3 mg/0.3 mL injection, auto-injector (EpiPen 2-Raymond) 0.3 mg (0.3 mL) IM Q5-15M PRN anaphylaxis #2 ea 04/14/22 [Rx Last Taken Unknown] prazosin 5 mg capsule 4 mg PO QHS 04/14/22 [History Last Taken Unknown] simvastatin 20 mg tablet 20 mg PO QPM #90 tabs 04/14/22 [Rx Last Taken Unknown] scopolamine base 1 mg over 3 days transdermal patch 1 patch transdermal Q3D PRN nausea and vomiting #10 ea 07/04/22 [Rx Last Taken Unknown] ondansetron 4 mg disintegrating tablet 4 mg PO Q6H PRN nausea and vomiting #20 tabs 07/25/22 [Rx Last Taken Unknown] walker (Ultra-Light Rollator [facility] [place]) #1 ea 08/10/22 [Rx Last Taken Unknown] aripiprazole 10 mg tablet 10 mg PO DAILY 08/15/22 [History Last Taken Unknown] duloxetine 60 mg capsule,delayed release 60 mg PO QHS 08/15/22 [History Last Taken Unknown] hydroxychloroquine 200 mg tablet 200 mg PO BID 08/15/22 [History Last Taken Unknown] sumatriptan succinate 100 mg tablet 100 mg PO .COMPLEX #14 tabs 08/15/22 [Rx Last Taken Unknown] promethazine 25 mg tablet See Rx Instructions .Route .COMPLEX #60 tabs 09/18/22 [Rx Last Taken Unknown] levetiracetam 500 mg tablet (Keppra) 500 mg PO BID #180 tabs 09/26/22 [Rx Last Taken 09/27/22] pantoprazole 40 mg tablet,delayed release 40 mg PO DAILY #90 tabs 10/18/22 [Rx Last Taken Unknown] dicyclomine 10 mg capsule 10 mg PO Q6H #112 caps 11/02/22 [Rx Last Taken Unknown] celecoxib 200 mg capsule 200 mg PO DAILY PRN pain #90 caps 11/26/22 [Rx Last Taken Unknown] gabapentin 600 mg tablet 600 mg PO TID nerve pain #90 tabs 11/26/22 [Rx Last Taken Unknown] ondansetron 4 mg disintegrating tablet 4 mg PO Q8H PRN nausea and vomiting 3 days #9 tabs 12/07/22 [Rx Last Taken Unknown] Allergy/AdvReac Type Severity Reaction Status Date / Time venom-honey bee Allergy Severe severe Verified 12/07/22 13:36 venom-wasp Allergy Severe severe Verified 12/07/22 13:36 ciprofloxacin [From Cipro] Allergy Rash Verified 12/07/22 13:36 erythromycin base Allergy Anaphylaxis Verified 12/07/22 13:36 iodine Allergy Anaphylaxis Verified 12/07/22 13:36 latex Allergy Rash Verified 12/07/22 13:36 metronidazole [From Flagyl] Allergy Anaphylaxis Verified 12/07/22 13:36 naproxen [From Naprosyn] Allergy Anaphylaxis Verified 12/07/22 13:36 Penicillins Allergy Anaphylaxis Verified 12/07/22 13:36 shellfish derived Allergy Anaphylaxis Verified 10/23/22 08:28 adhesive AdvReac Mild BLISTERS Verified 12/07/22 13:36 sulfamethoxazole AdvReac Hives Verified 12/07/22 13:36 [From Bactrim] trimethoprim [From Bactrim] AdvReac Hives Verified 12/07/22 13:36 Family History Father Asthma Grandfather No problems noted. Grandmother Asthma Brother Lung cancer Diabetes Hypertension Grandfather Asthma Grandmother Asthma Hypertension Mother Diabetes Aunt Diabetes Son Seizures Asthma Surgical History History of appendectomy History of bladder repair surgery History of carpal tunnel surgery of right wrist History of colonoscopy History of esophagogastroduodenoscopy (EGD) History of hysterectomy History of orthopedic surgery History of spinal surgery Hx of repair of right rotator cuff Hx of surgical procedure Hx of surgical procedure S/P left knee surgery S/P umbilical hernia repair, follow-up exam Status post left foot surgery Social History Smoking Status: Current every day smoker tobacco type: cigarettes alcohol intake: never substance use type: does not use what type of physical activity do you participate in: none EXAM Physical Exam Const Vital Signs: 12/07/22 13:34 12/07/22 16:45 12/07/22 19:48 Temperature 97.1 F L Temperature Source Temporal Pulse Rate 98 75 77 Respiratory Rate 18 15 16 Blood Pressure 116/56 L 110/72 108/80 Blood Pressure Mean 76 84 89 Pulse Ox 97 95 95 Oxygen Delivery Method Room Air Room Air MDM MDM MDM Narrative Medical decision making narrative: HISTORY OF PRESENT ILLNESS: 47-year-old female who arrives quad abdominal pain nausea dizziness. Denies syncope. The patient denies recent surgery in the last 4 weeks or immobilization in the last 3 days, denies previous diagnosis of DVT or PE, hemoptysis, unilateral leg swelling or malignancy with treatment the last 6 months. No estrogen use noted.. Patient denies sudden onset of pain, no tearing sensation, no migratory symptoms, no new numbness, weakness or loss of sensation. Patient denies family history or personal history of Connective tissue disorders (Marfan's Syndrome, Vinnie Danlos etc) REVIEW OF SYSTEMS: Pertinent positives: Abdominal pain, chest pain, dizziness Pertinent negatives: Vomiting, fever PHYSICAL EXAM: Nursing triage notes reviewed, Vital signs reviewed Constitutional: please see mdm HENT: MMM Eyes: Pupils equal round and reactive to light, Extraocular muscles intact Neck: No stridor, no JVD, full neck ROM Lungs: Clear to auscultation, No wheezing or rales. No increased work of breathing, no conversational dyspnea, no accessory muscle use, no nasal flaring. No respiratory distress noted Heart: Regular rate and rhythm, No murmurs, No rubs and No gallops, 2+ distal pulses (radial, femoral, posterior tibial) in all extremities Abdomen: Soft, there is no tenderness, rigidity, rebound or guarding, no obvious peritoneal signs, no palpable pulsatile abdominal masses, no auscultated abdominal bruit : No CVAT Extremities: No edema Neuro: Alert and oriented x3, neuro exam at baseline, cranial nerves II through XII are intact. No pain with extraocular muscle movement. There is negative test of skew. Normal speech. 5 of 5 strength in upper and lower extremities in flexion extension. Intact sensation to light touch in upper and lower extremity dermatomes. No truncal or extremity ataxia. No dysdiadochokinesia. Normal gait. 2+ reflexes. No meningeal signs. Negative Babinski. NIH of 0 Skin: No rash or lesions noted MEDICAL DECISION MAKING: Chief Complaint: Abdominal pain, chest pain External records reviewed: CT scan of the abdomen pelvis from July 2022 shows no acute abnormality Factors affecting care: IBS Social determinants of health: Denies drug use History obtained from others: none Consults: none ALL IMAGES (IF OBTAINED) HAVE BEEN PERSONALLY REVIEWED AND INTERPRETED BY MYSELF. EKG with normal sinus rhythm, normal axis, no intervals, no [facility] Narrative: Patient was hemodynamically stable, afebrile, nontoxic-appearing. Exam with right upper quadrant TTP, positive Greenberg sign concerning for acute gallbladder etiology. Also obtain a broad lab and imaging work-up to rule out other diagnoses as below I considered the following differential diagnosis: Acute cholecystitis, pancreatitis, metabolic pathology, , anemia, ACS, arrhythmia, pneumonia, PE Consider posterior circulation CVA given report of dizziness over the patient no focal deficits, NIH of 0. Low suspicion for posterior circulation CVA at this time I considered pulmonary embolism. Patient lower as well score. No indication for advanced imaging such as CT of the chest at this time or D-dimer. CBC without leukocytosis, severe anemia, no thrombocytopenia. BMP without evidence of significant electrolyte abnormalities, no anion gap, no acute kidney injury. LFTs show no evidence of hepatobiliary pathology. Troponin is negative, no evidence of myocardial ischemia Urinalysis shows no evidence of urinary inflammation suggestive of UTI test negative CT scan of the abdomen pelvis as well as ultrasound also negative. No clear life-limiting etiology be ascertained. Patient is point for discharge home with close GI and PCP follow-up. Give Zofran for symptomatic control at home. The patient and/or family, caregivers express understanding. The patient and/or family, caregivers agrees with the plan. Shared decision making: I will have a discussion with the patient and or visitors regarding risk/benefits of further testing or admission. They will be made aware of of the risk/benefits inherent in this decision they will be given the opportunity to voice understanding. Total critical care time today provided was at least 0 minutes. This excludes separately billable procedures. Critical care time (if documented) is secondary to the patient having high probability of clinically significant/life threatening deterioration in the patient's condition which required my urgent intervention. Impression: Right upper quadrant abdominal pain Chest pain History of IBS Dispo: Discharge Lab Data Attestation: I reviewed the patient's lab results. Labs: Laboratory Results - last 24 hr 12/07/22 12/07/22 14:55 15:45 WBC 4.7 RBC 3.78 L Hgb 12.4 Hct 38.2 MCV 101.1 H MCH 32.8 H MCHC 32.5 RDW Std Deviation 46.9 H RDW Coeff of Karina 12.5 Plt Count 182 MPV 11.9 Immature Gran % (Auto) 0.200 Neut % (Auto) 47.2 Lymph % (Auto) 40.1 [place] % (Auto) 6.6 Eos % (Auto) 5.1 H Baso % (Auto) 0.8 Absolute Neuts (auto) 2.2 Absolute Lymphs (auto) 1.89 Nucleated RBC % 0 Sodium 138 Potassium 3.9 Chloride 109 H Carbon Dioxide 26.0 Anion Gap 3 L BUN 14 Creatinine 0.82 Estim Creat Clear Calc 83.36 Est GFR (MDRD) Af Amer 97 Est GFR (MDRD) Non-Af 80 BUN/Creatinine Ratio 17.1 Glucose 88 Calcium 8.5 Total Bilirubin 0.20 Direct Bilirubin 0.07 AST 15 ALT 19 Alkaline Phosphatase 129 H Troponin I High Sens < 3 L Total Protein 7.4 Albumin 3.4 Globulin 4.0 Lipase 80 H Urine Color Yellow Urine Clarity Clear Urine pH 6.0 Ur Specific [place] 1.015 Urine Protein Negative Urine Glucose (UA) Normal Urine Ketones Negative Urine Occult Blood Negative Urine Nitrite Negative Urine Bilirubin Negative Urine Urobilinogen Normal Ur Leukocyte Esterase Negative Urine Test Negative Radiography Diagnostic Testing: Clinical Impression(s) from Imaging Studies Gallbladder Ultrasound 12/07/22 14:33 IMPRESSION: Mild fatty infiltration of the liver. No acute findings. Electronically Signed: Nathanael Galeano MD at 17:13 EDT , Abdomen/Pelvis CT 12/07/22 18:07 IMPRESSION: No acute findings in the abdomen or pelvis. Electronically Signed: Nathanael Galeano MD at 18:47 EDT , Discharge Plan Triage Chief Complaint: Chest Other ED Provider: Cj Nice Dx/Rx/DC Orders Clinical Impression: Abdominal pain, Irritable bowel syndrome Instructions: Abdominal Pain Prescriptions: New ondansetron 4 mg tablet,disintegrating 4 mg PO Q8H PRN (Reason: nausea and vomiting) 3 Days Qty: 9 0RF No Action topiramate 200 mg tablet 200 mg PO QHS carbamazepine 200 mg tablet 200 mg PO BID Patient Comments: 1 Tab AM & 2 PM duloxetine 30 mg capsule,delayed release(DR/EC) 30 mg PO QHS baclofen 10 mg tablet 10 mg PO TID quetiapine [Seroquel] 300 mg tablet 700 mg PO DAILY epinephrine [EpiPen 2-Raymond] 0.3 mg/0.3 mL auto-injector 0.3 mg IM Q5-15M PRN (Reason: anaphylaxis) Qty: 2 3RF Rx Instructions: do not exceed 3 doses per episode simvastatin 20 mg tablet 20 mg PO QPM Qty: 90 1RF albuterol sulfate 90 mcg/actuation HFA aerosol inhaler 1 - 2 puff inhalation Q6H PRN (Reason: shortness of breath or wheezing) Qty: 8.5 0RF hydroxychloroquine 200 mg tablet 200 mg PO BID duloxetine 60 mg capsule,delayed release(DR/EC) 60 mg PO QHS aripiprazole 10 mg tablet 10 mg PO DAILY sumatriptan succinate 100 mg tablet 100 mg PO .COMPLEX Qty: 14 2RF Rx Instructions: 100 mg orally; take one at the onset of a migraine, not to exceed more than 1 daily trazodone 100 mg tablet 300 mg PO QHS hydroxyzine pamoate 25 mg capsule 50 mg PO TID PRN (Reason: Anxiety) prazosin 5 mg capsule 4 mg PO QHS ondansetron 4 mg tablet,disintegrating 4 mg PO Q6H PRN (Reason: nausea and vomiting) Qty: 20 0RF (DME) Handicap Placard See Rx Instructions .Route .MEDSUPPLY Qty: 1 0RF Rx Instructions: As directed, length of time 3 years (DME) Ultra-Light Rollator Misc See Rx Instructions .Route Qty: 1 0RF Rx Instructions: As directed scopolamine base 1 mg over 3 days patch 3 day 1 patch transdermal Q3D PRN (Reason: nausea and vomiting) Qty: 10 5RF (DME) Ultra-Light Rollator Misc See Rx Instructions .Route Qty: 1 0RF Rx Instructions: As directed promethazine 25 mg tablet See Rx Instructions .ROUTE .COMPLEX Qty: 60 2RF Dose Instruction: TAKE 1 TABLET BY MOUTH TWICE A DAY NEEDED FOR NAUSEA OR VOMITING Rx Instructions: TAKE 1 TABLET BY MOUTH TWICE A DAY NEEDED FOR NAUSEA OR VOMITING levetiracetam [Keppra] 500 mg tablet 500 mg PO BID Qty: 180 0RF pantoprazole 40 mg tablet,delayed release (DR/EC) 40 mg PO DAILY Qty: 90 2RF dicyclomine 10 mg capsule 10 mg PO Q6H Qty: 112 1RF celecoxib 200 mg capsule 200 mg PO DAILY PRN (Reason: pain) Qty: 90 0RF gabapentin 600 mg tablet 600 mg PO TID Qty: 90 1RF Primary Care Provider: Gayle Munoz Referrals: Gayle Munoz MD [Primary Care Provider] - Gary Diaz DO [Med Staff - Active Staff] - Activity Restrictions/Additional Instructions: Thank you for trusting us with your care today! Please take Tylenol (2 pills, 650 mg), ibuprofen (2 pills, 400 mg) every 6 hours as needed for pain and fever control. Please take Zofran as needed for nausea control. Please return to the emergency department if your symptoms change or worsen. Please follow with your primary care physician and gastroenterology (Dr. Diaz) for further outpatient evaluation and management. Disposition Disposition: Home, Self Care Discharge Date/Time: 12/07/22 19:49
[2022-12-07 19:48] VITALS: BP 108/80; PULSE 77; RESP 16; O2SAT 95
== END 2022-12-07 19:49 | disposition home or self-care (01) ==
PROVIDERS: Emergency Provider Emergency Medicine; PCP Internal Medicine; Visit Provider Emergency Medicine
DX: R10.11 Right upper quadrant pain (principal); K58.9 Irritable bowel syndrome, unspecified; F17.210 Nicotine dependence, cigarettes, uncomplicated; Z86.73 Personal history of transient ischemic attack (TIA), and cerebral infarction without residual deficits
CPT/HCPCS: 74176; 76705; 80048; 80076; 81002; 81025; 83690; 84484; 85025; 93005; 96361; 96374; 96375; 96376; 99282; J7030; A4216; J2405

== ENCOUNTER → 2023-03-09 | Outpatient (CLI) | payer MEDICAID, SELFPAY ==
[2023-03-09 12:09] LABS: Absolute Lymphocyte Count 1.84 X10^3/uL (0.83-4.51); Basophil# 0.03 X10^3/uL; Basophil% 0.7 % (0-1); Eosinophil# 0.28 X10^3/uL; Eosinophils% 6.4 % (0-5); Hematocrit 38.3 % (37-47); Hemoglobin 12.1 g/dL (12.0-15.0); Lymphocyte # 1.84 X10^3/ul (0.83-4.51); Lymphocyte % 42.2 % (19-41); Mean Corp Hgb Conc 31.6 g/dL (32-36); Mean Corpuscular Hgb 31.9 pg (27.0-32.0); Mean Corpuscular Volume 101.1 fL (81-99); Mean Platelet Vol. 12.4 fl (6.2-12.0); Monocyte# 0.23 X10^3/uL; Monocyte% 5.3 % (0-10); NRBC Flagged by Analyzer 0 % (0-5); Neutrophil # 1.97 X10^3/uL (2.7-7.7); Neutrophil % 45.2 % (47-70); Platelet Count 147 K/mm3 (150-450); RBC Distribution Width CV 12.6 % (11.6-14.6); RBC Distribution Width SD 47.7 fl (35.1-43.9); Red Blood Count 3.79 M/mm3 (4.2-5.4); White Blood Count 4.4 K/mm3 (4.4-11.0)
[2023-03-09 12:39] LABS: ALB/GLOB Ratio 0.8 RATIO (0.9-2.4); AST(SGOT) 15 U/L (15-37); Alanine Aminotransfer ALT/SGPT 16 U/L (13-56); Albumin, Serum 3.3 g/dL (3.2-5.0); Alkaline Phosphatase 107 U/L (45-117); Anion Gap 4 (5-15); BUN 12 mg/dL (7-18); BUN/Creat Ratio 17.1 RATIO (10-20); Calcium,Total 8.2 mg/dL (8.5-10.1); Chloride 111 mmol/L (98-107); EST Glomerular Filtration Rate 95 mL/min (>60); Est Glom Filt Rate - Afr Amer 115 mL/min (>60); Glucose 91 mg/dL (74-106); Potassium 4.3 mmol/L (3.5-5.1); Protein, Total 7.3 g/dL (6.4-8.2); Sodium Level 141 mmol/L (136-145); T4 Free Direct 0.58 ng/dL (0.76-1.46); Thyroid Stim Hormone (TSH) 0.72 uIU/mL (0.358-3.74)
[2023-03-09 15:43] LABS: Cholesterol 166 mg/dL (200); High Density Lipoprotein 57 mg/dL; Triglycerides 151 mg/dL; Very Low Density Lipoprotein 30 mg/dL (5-40)
== END | disposition home or self-care (01) ==
LOC: LAB.FUTURE 10:47 → BIMLAB 11:44
PROVIDERS: PCP Internal Medicine; Visit Provider Urology
DX: D35.00 Benign neoplasm of unspecified adrenal gland (principal); E78.5 Hyperlipidemia, unspecified
CPT/HCPCS: 36415; 80053; 80061; 84439; 84443; 85025

== ENCOUNTER → 2023-03-20 | Outpatient (CLI) | payer MEDICAID, SELFPAY | END | disposition home or self-care (01) | LOC: PSN 09:14 | PROVIDERS: PCP Internal Medicine; Referring Provider Internal Medicine; Visit Provider Internal Medicine | DX: R00.1 Bradycardia, unspecified (principal) | CPT/HCPCS: 93225; 93226 ==

== ENCOUNTER → 2023-05-09 | Outpatient (CLI) | payer MEDICAID, SELFPAY ==
--- NOTE | 2023-05-09 06:03 | CDU_ITS ---
Reason For Study: Syncope/Dizziness Rt. Velocities/BP Lt. Velocities/BP Prox CCA 99/28 cm/sec. Prox CCA 91/32 cm/sec. Mid CCA 91/31 cm/sec. Mid CCA 83/28 cm/sec. Dist CCA 61/30 cm/sec. Dist CCA 66/25 cm/sec. Prox ICA 52/19 cm/sec. Prox ICA 59/20 cm/sec. Mid ICA 55/24 cm/sec. Mid ICA 79/31 cm/sec. Dist ICA 90/42 cm/sec. Dist ICA 104/47 cm/sec. Rt. ICA/CCA = 1.0. Lt. ICA/CCA = 1.3. Prox ECA 57/20 cm/sec. Prox ECA 61/21 cm/sec. Rt. Vert. 44/15 cm/sec. Lt. Vert. 56/26 cm/sec. Right Extracranial There is intimal thickening but no significant atherosclerotic plaque noted in the right common carotid artery. There is no significant atherosclerotic plaque noted in the right internal carotid artery. There is no significant atherosclerotic plaque noted in the right external carotid artery. Antegrade flow is noted in the right vertebral artery. Left Extracranial There is intimal thickening but no significant atherosclerotic plaque noted in the left common carotid artery. There is intimal thickening but no significant atherosclerotic plaque noted in the left internal carotid artery. There is heterogeneous, smooth atherosclerotic plaque noted in the left external carotid artery. Antegrade flow is noted in the left vertebral artery. Procedure Carotid Duplex [id number]. This is a Carotid Duplex examination using B-mode, color flow and specral Doppler. Exam performed in department. VL/Carotid Duplex Ultrasound Interpretation Summary Normal right extracranial internal carotid. Normal left extracranial internal carotid. Patent and antegrade vertebrals bilaterally. Ordering Physician: Adelina Handy Referring Physician: Gayle Munoz Performed By: Grisel Luciano, ROSELIA, RVT
--- NOTE | 2023-05-09 06:03 | ECHOD_ITS ---
Reason For Study: Chest pain Procedure This was a 2D Doppler, Color Flow transthoracic echocardiogram. Exam performed in department. Left Ventricle Normal LV size. Left ventricular systolic function is normal. The estimated ejection fraction is 55 %. The global longitudinal strain = -16.5% (borderline). No evidence for diastolic dysfunction. No regional wall motion abnormalities noted. Right Ventricle Normal RV size. Normal systolic function. Atria The left and right atria are normal. Mitral Valve The mitral valve is structurally normal. No prolapse or stenosis seen. Trivial mitral valve insufficiency. Tricuspid Valve Normal tricuspid valve. Trivial tricuspid valve insufficiency. Right ventricular systolic pressure estimated to be 20 mmHg. Aortic Valve Trisinus/trileaflet aortic valve. There is no aortic stenosis. Pulmonic Valve Normal pulmonic valve. Trivial pulmonic valve insufficiency. Great Vessels Normal aortic root. Pericardium/Pleural No pericardial effusion. MMode/2D Measurements & Calculations LVIDd: 4.0 cm IVSd: 0.99 cm Ao root diam: 3.2 cm LVIDs: 2.7 cm LVPWd: 0.97 cm RVDd: 3.5 cm FS: 32.2 % LAV(MOD-bp): 34.8 ml LVAd ap4: 26.7 cm2 LVAd ap2: 24.6 cm2 LAV(MOD-bp) Indexed: 18.0 ml/m2 LVLd ap4: 7.6 cm LVLd ap2: 8.1 cm LAV(MOD-sp2): 33.5 ml EDV(MOD-sp4): 77.2 ml EDV(MOD-sp2): 63.8 ml LAV(MOD-sp4): 33.0 ml EDV(sp4-el): 79.8 ml EDV(sp2-el): 63.4 ml LVAs ap4: 16.0 cm2 LVAs ap2: 15.9 cm2 LVLs ap4: 6.3 cm LVLs ap2: 7.5 cm ESV(MOD-sp4): 34.6 ml ESV(MOD-sp2): 29.9 ml ESV(sp4-el): 34.4 ml ESV(sp2-el): 28.5 ml EF(MOD-sp4): 55.1 % EF(MOD-sp2): 53.2 % EF(sp4-el): 56.9 % SV(MOD-sp4): 42.6 ml SV(MOD-sp2): 33.9 ml SV(sp4-el): 45.4 ml LA dimension(2D): 3.2 cm LA A4 area: 14.0 cm2 RA A4 area: 14.7 cm2 TAPSE: 1.6 cm Time Measurements MV dec time: 0.19 sec Doppler Measurements & Calculations MV E max louie: 62.9 cm/sec Lat Peak E' Louie: 9.2 cm/sec Med Peak E' Louie: 7.5 cm/sec MV A max louie: 65.1 cm/sec E/E' lat: 6.8 E/E' med: 8.4 MV E/A: 0.97 MV dec slope: 322.8 cm/sec2 Ao V2 max: 113.0 cm/sec LV V1 max: 102.1 cm/sec Ao max P.1 mmHg LV V1 max P.2 mmHg Ao V2 mean: 83.5 cm/sec LV V1 mean P.3 mmHg Ao mean P.1 mmHg LV V1 mean: 70.5 cm/sec Ao V2 VTI: 23.2 cm LV V1 VTI: 20.4 cm AV (velocity ratio): 0.88 PA V2 max: 69.3 cm/sec TR max louie: 204.7 cm/sec TR max P.8 mmHg ECHO/Echo Complete Interpretation Summary The estimated ejection fraction is 55 %. No evidence for diastolic dysfunction. Structually normal valves. There is no comparison study available. Ordering Physician: Adelina Handy Referring Physician: Gayle Munoz Performed By: Laurie Keane RDCS
--- NOTE | 2023-05-10 16:47 | STRESSREP_ITS ---
Stress Test Report Date: 05/09/2023 Procedure: Pharmacologic stress nuclear imaging study Indications: Chest pain Consent: Per the patient Procedure: The patient underwent pharmacologic (Regadenoson 0.4mg ) evaluation with a peak heart rate of 105 beats per minute (60%predicted maximal heart rate) and a peak blood pressure of 112/82 mmHg. The baseline ECG demonstrated sinus rhythm. The peak pharmacologic ECG demonstrated no ischemic changes. There were no cardiac dysrhythmias pretest, during pharmacologic infusion, or recovery. There was no complaint of chest discomfort during pharmacologic infusion or recovery. The patient was injected with 12.0 millicuries of technetium 99m Cardiolite and subsequently rest SPECT Cardiolite nuclear imaging was obtained in the horizontal long, vertical long, and short axis views. The patient underwent pharmacologic (Regadenoson) evaluation. The patient was injected with 35.4 millicuries of technetium 99m Cardiolite and subsequently stress SPECT Cardiolite nuclear imaging was obtained in the horizontal long, vertical long, and short axis views. A gated Cardiolite study at peak stress was obtained. The examination was stopped secondary to completion of protocol. Rest and stress SPECT Cardiolite nuclear imaging status post realignment, normalization, and attenuation correction demonstrate no fixed or reversible perfusion defects. There is end systolic thickening and brightening. The gated Cardiolite study demonstrates myocardial thickening and inward wall motion. The reported LVEF is 68%. Impression: 1. Pharmacologic (Regadenoson) evaluation 2. Peak pharmacologic ECG with no ischemic changes. 3. There were no cardiac dysrhythmias pretest, during pharmacologic infusion, o r recovery. 5. Rest and stress SPECT Cardiolite nuclear imaging demonstrate relative uniform tracer uptake and myocardial perfusion appearing within normal limits. 6. The gated Cardiolite study reports an LVEF of 68%. This note was generated with [employer] software. It may contain incorrect words, spelling, and punctuation that were not noted in checking the note before signing.
== END | disposition home or self-care (01) ==
LOC: CVS 06:00
PROVIDERS: PCP Internal Medicine; Referring Provider Internal Medicine Cardiovascular Disease; Visit Provider Internal Medicine Cardiovascular Disease
DX: R07.9 Chest pain, unspecified (principal); R55 Syncope and collapse; R00.2 Palpitations; R00.1 Bradycardia, unspecified
CPT/HCPCS: 78452; 93017; 93306; 93880; A9500; A4216; J2785

== ENCOUNTER → 2023-06-08 | Outpatient (CLI) | payer MEDICAID, SELFPAY ==
--- NOTE | 2023-06-08 11:50 | RAD_ITS ---
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 Degenerative spurring at the endplates. No fracture. No spondylolisthesis. Preservation of the normal thoracic kyphosis. No significant facet arthropathy. There are stimulator electrodes over the mid thoracic levels. DISCS: Disc spaces are maintained. INCLUDED CHEST/ABDOMEN: No acute abnormalities. RAD/Thoracic Spine 3 Views IMPRESSION: No evidence of thoracic spinal fracture. Electronically Signed: Uriel Kaur DO at 18:25 EST Reading Location ID and State: [facility] / [place] Tel [phone], Service support ,
== END | disposition home or self-care (01) ==
PROVIDERS: PCP Internal Medicine; Referring Provider Clinical Nurse Specialist Adult Health; Visit Provider Clinical Nurse Specialist Adult Health
DX: M47.814 Spondylosis without myelopathy or radiculopathy, thoracic region (principal)
CPT/HCPCS: 72072

== ENCOUNTER → 2023-06-15 | Outpatient (CLI) | payer MEDICAID, SELFPAY ==
--- NOTE | 2023-06-15 09:23 | BI_ITS ---
MAMMOGRAPHY - BILATERAL SCREENING 3-D TOMOSYNTHESIS REASON FOR EXAM: Female, 47 years old. Breast Cancer Screening PERTINENT HISTORY: No significant family history. TECHNIQUE: 2-D mammograms and 3-D Tomosynthesis of the breast (s) were performed. CAD was performed. COMPARISON: 09/07/2021 FINDINGS: The breast composition is composed of scattered fibroglandular density. Scattered benign calcifications are seen. No dense spiculated masses or suspicious microcalcifications are identified. No architectural distortion is identified. There is no skin thickening or retraction. There has been no significant change since the prior study. BI/SCRN MAMM (CAD)W/AHMET BILAT IMPRESSION: No mammographic signs of malignancy. Routine yearly mammograms recommended. ASSESSMENT CATEGORY: BIRADS Category 1: Negative. A letter regarding these results will be sent to the patient by the facility within 30 days. FOLLOW UP RECOMMENDATION: Yearly follow up mammogram recommended. (A) Approximately 10% of breast cancers are not detected by mammography. A normal mammogram should not delay biopsy of a clinically suspicious abnormality. Electronically Signed: Tree Choudhury MD at 14:00 EST ,
[2023-06-15 10:34] LABS: Absolute Lymphocyte Count 1.95 X10^3/uL (0.83-4.51); Absolute Neutrophil Count 3.2 X10^3/uL (2.0-7.7); Basophil# 0.04 X10^3/uL; Basophil% 0.7 % (0-1); Eosinophil# 0.27 X10^3/uL; Eosinophils% 4.7 % (0-5); Hematocrit 37.4 % (37-47); Lymphocyte # 1.95 X10^3/ul (0.83-4.51); Lymphocyte % 33.7 % (19-41); Mean Corp Hgb Conc 32.1 g/dL (32-36); Mean Corpuscular Hgb 32.4 pg (27.0-32.0); Mean Corpuscular Volume 101.1 fL (81-99); Mean Platelet Vol. 11.1 fl (6.2-12.0); Monocyte# 0.29 X10^3/uL; NRBC Flagged by Analyzer 0 % (0-5); Neutrophil # 3.21 X10^3/uL (2.7-7.7); Neutrophil % 55.6 % (47-70); Platelet Count 190 K/mm3 (150-450); RBC Distribution Width CV 13.4 % (11.6-14.6); White Blood Count 5.8 K/mm3 (4.4-11.0)
[2023-06-15 10:35] LABS: Erythrocyte Sedimentation Rate 6 mm/hr (0-30)
[2023-06-15 11:08] LABS: ALB/GLOB Ratio 0.9 RATIO (0.9-2.4); AST(SGOT) 17 U/L (15-37); Alanine Aminotransfer ALT/SGPT 14 U/L (13-56); Albumin, Serum 3.5 g/dL (3.2-5.0); Alkaline Phosphatase 99 U/L (45-117); Anion Gap 5 (5-15); BUN 15 mg/dL (7-18); BUN/Creat Ratio 17.5 RATIO (10-20); CRP < 2.90 mg/L (0.0-3.0); Calcium,Total 8.6 mg/dL (8.5-10.1); Chloride 110 mmol/L (98-107); Creatinine, Serum 0.86 mg/dL (0.55-1.02); EST Glomerular Filtration Rate 76 mL/min (>60); Est Glom Filt Rate - Afr Amer 91 mL/min (>60); Globulin 3.8 g/dL (2.2-4.2); Glucose 101 mg/dL (74-106); Potassium 3.7 mmol/L (3.5-5.1); Protein, Total 7.3 g/dL (6.4-8.2); Sodium Level 139 mmol/L (136-145)
[2023-06-15 11:37] LABS: Vitamin D,25 Hydroxy 11.9 ng/mL
[2023-06-15 11:39] LABS: CPK Total, Creatine Kinase 91 U/L (26-192)
[2023-06-16 05:07] LABS: Complement C3 138 mg/dL (82-167)
[2023-06-18 12:09] LABS: Anti-dsDNA Ab 6 IU/mL (0-9)
== END | disposition home or self-care (01) ==
PROVIDERS: PCP Internal Medicine; Referring Provider Internal Medicine; Visit Provider Internal Medicine
DX: Z12.31 Encounter for screening mammogram for malignant neoplasm of breast (principal); M32.9 Systemic lupus erythematosus, unspecified; M05.79 Rheumatoid arthritis with rheumatoid factor of multiple sites without organ or systems involvement; E55.9 Vitamin D deficiency, unspecified; M19.90 Unspecified osteoarthritis, unspecified site; R80.9 Proteinuria, unspecified; Z79.899 Other long term (current) drug therapy
CPT/HCPCS: 36415; 77063; 77067; 80053; 82306; 82550; 85025; 85652; 86140; 86160; 86225

== ENCOUNTER → 2023-07-18 | Outpatient (CLI) | payer MEDICAID, SELFPAY ==
--- NOTE | 2023-07-18 06:28 | CT_ITS ---
STUDY: CT PELVIS WITH CONTRAST REASON FOR EXAM: Female, 47 years old. Constipation -- Spine stimulator present. Pre-med can be rx. RADIATION DOSAGE (If Supplied By Facility): CTDIvol = ( 28.11 ) mGy, DLP = ( 914.02 ) mGycm TECHNIQUE: Transaxial imaging of the pelvis was performed without oral contrast. Oral and amp; IV Gastrografin and amp; 100mL Isovue-370 was administered intravenously. Individualized dose optimization techniques were used for this CT. COMPARISON: Comparison is made with prior study December 07, 2022. FINDINGS: Once again, a right-sided stimulator unit with the right transsacral lead. Normal urinary bladder. The patient is status post hysterectomy. Normal visualized small intestine. Large amount of fecal material is seen within the distal colon. There is no pelvic fluid. There is no pelvic lymphadenopathy or mass lesion. Normal visualized pelvic arteries. Normal abdominal wall. Anterior fusion at the L5-S1 level. CT/Pelvis WITH IV Contrast IMPRESSION: Large amount of fecal material is seen in the distal colon. Stable appearance of the right-sided stimulator and right-sided transsacral leak. Electronically Signed: Amado Bernardo MD at 10:33 EDT ,
[2023-07-18 07:25] VITALS: BP 112/65; PULSE 91; RESP 18; TEMP 36.9; O2SAT 95; BMI 28.3
[2023-07-18] MEDS: 0.9% Normal Saline (1000mL) 1,000 ML 500 ML IV (07:40)
[2023-07-18] MEDS: DiphenhydrAMINE 50 MG/ML Syringe IV (07:40)
[2023-07-18 09:19] LABS: Absolute Lymphocyte Count 0.83 X10^3/uL (0.83-4.51); Basophil# 0.03 X10^3/uL; Basophil% 0.7 % (0-1); Eosinophil# 0.08 X10^3/uL; Eosinophils% 1.9 % (0-5); Hematocrit 32.6 % (37-47); Hemoglobin 10.4 g/dL (12.0-15.0); Lymphocyte # 0.83 X10^3/ul (0.83-4.51); Lymphocyte % 20.2 % (19-41); Mean Corp Hgb Conc 31.9 g/dL (32-36); Mean Corpuscular Volume 103.5 fL (81-99); Mean Platelet Vol. 10.8 fl (6.2-12.0); Monocyte# 0.13 X10^3/uL; Monocyte% 3.2 % (0-10); NRBC Flagged by Analyzer 0 % (0-5); Neutrophil # 3.03 X10^3/uL (2.7-7.7); Neutrophil % 73.8 % (47-70); Platelet Count 152 K/mm3 (150-450); RBC Distribution Width CV 14.4 % (11.6-14.6); RBC Distribution Width SD 53.4 fl (35.1-43.9); Red Blood Count 3.15 M/mm3 (4.2-5.4); White Blood Count 4.1 K/mm3 (4.4-11.0)
[2023-07-18 09:25] LABS: Erythrocyte Sedimentation Rate < 1 mm/hr (0-30)
[2023-07-18 09:35] LABS: Bacteria 0 SEEN /hpf (None Seen); Mucous, Urine 0 SEEN /hpf (<or=2+); Red Blood Cells-Urine 0 SEEN /hpf (0-5); Squamous Epithelial Cells - UA 0 SEEN /hpf (5-10); White Blood Cells 0 SEEN /hpf (0-5)
[2023-07-18 09:36] LABS: ALB/GLOB Ratio 0.9 RATIO (0.9-2.4); AST(SGOT) 15 U/L (15-37); Alanine Aminotransfer ALT/SGPT 16 U/L (13-56); Albumin, Serum 3.1 g/dL (3.2-5.0); Alkaline Phosphatase 95 U/L (45-117); Anion Gap 3 (5-15); BUN 16 mg/dL (7-18); BUN/Creat Ratio 20.7 RATIO (10-20); CPK Total, Creatine Kinase 67 U/L (26-192); CRP 4.89 mg/L (0.0-3.0); Chloride 109 mmol/L (98-107); Creatinine, Serum 0.77 mg/dL (0.55-1.02); EST Glomerular Filtration Rate 85 mL/min (>60); Est Glom Filt Rate - Afr Amer 103 mL/min (>60); Globulin 3.6 g/dL (2.2-4.2); Glucose 93 mg/dL (74-106); Potassium 3.8 mmol/L (3.5-5.1); Protein, Total 6.7 g/dL (6.4-8.2); Sodium Level 137 mmol/L (136-145)
[2023-07-18 09:44] LABS: Color, Urine Yellow (Yellow); Glucose, Dipstick Normal (Normal); Ketone-Dipstick Negative (Negative); Leukocyte Esterase-Dipstick Negative /ul (Negative); Nitrite-Dipstick Negative (Negative); Occult Blood-Urine Negative /ul (Negative); Protein-Dipstick Negative (Negative); Urine Bilirubin Dipstick Negative (Negative); Urine Clarity Clear (Clear); Urine Urobilinogen Normal (Normal)
[2023-07-18 09:46] LABS: Protein, Urine (Random) 8.7 mg/dL (<11.9); Protein:Creat Ratio 165 mg/g CRE (0-200)
== END | disposition home or self-care (01) ==
LOC: CT 06:28
PROVIDERS: PCP Internal Medicine; Referring Provider Internal Medicine Gastroenterology; Visit Provider Internal Medicine Gastroenterology
DX: K59.00 Constipation, unspecified (principal); M05.79 Rheumatoid arthritis with rheumatoid factor of multiple sites without organ or systems involvement; M32.9 Systemic lupus erythematosus, unspecified; R80.9 Proteinuria, unspecified; E55.9 Vitamin D deficiency, unspecified; M19.90 Unspecified osteoarthritis, unspecified site; Z79.899 Other long term (current) drug therapy
CPT/HCPCS: 72193; 80053; 81001; 82550; 82570; 84156; 85025; 85652; 86140; 96374; J7030; Q9967

== ENCOUNTER → 2023-08-07 | Outpatient (CLI) | payer MEDICAID, SELFPAY ==
[2023-08-07 13:40] LABS: Erythrocyte Sedimentation Rate 3 mm/hr (0-30)
[2023-08-07 13:42] LABS: Absolute Lymphocyte Count 2.22 X10^3/uL (0.83-4.51); Absolute Neutrophil Count 2.5 X10^3/uL (2.0-7.7); Basophil# 0.03 X10^3/uL; Basophil% 0.6 % (0-1); Eosinophil# 0.13 X10^3/uL; Eosinophils% 2.5 % (0-5); Hematocrit 35.9 % (37-47); Hemoglobin 11.7 g/dL (12.0-15.0); Lymphocyte # 2.22 X10^3/ul (0.83-4.51); Lymphocyte % 43.2 % (19-41); Mean Corp Hgb Conc 32.6 g/dL (32-36); Mean Corpuscular Hgb 33.6 pg (27.0-32.0); Mean Corpuscular Volume 103.2 fL (81-99); Mean Platelet Vol. 11.4 fl (6.2-12.0); Monocyte# 0.29 X10^3/uL; Monocyte% 5.6 % (0-10); NRBC Flagged by Analyzer 0 % (0-5); Neutrophil # 2.46 X10^3/uL (2.7-7.7); Neutrophil % 47.9 % (47-70); Platelet Count 189 K/mm3 (150-450); RBC Distribution Width CV 13.9 % (11.6-14.6); RBC Distribution Width SD 52.2 fl (35.1-43.9); Red Blood Count 3.48 M/mm3 (4.2-5.4); White Blood Count 5.1 K/mm3 (4.4-11.0)
[2023-08-07 14:02] LABS: Vitamin B12 355 pg/mL (211-911); Vitamin D,25 Hydroxy 63.1 ng/mL
[2023-08-07 14:13] LABS: ALB/GLOB Ratio 0.8 RATIO (0.9-2.4); AST(SGOT) 13 U/L (15-37); Alanine Aminotransfer ALT/SGPT 13 U/L (13-56); Albumin, Serum 3.3 g/dL (3.2-5.0); Alkaline Phosphatase 96 U/L (45-117); Anion Gap 4 (5-15); BUN 10 mg/dL (7-18); BUN/Creat Ratio 13.3 RATIO (10-20); CRP 3.14 mg/L (0.0-3.0); Calcium,Total 8.6 mg/dL (8.5-10.1); Chloride 112 mmol/L (98-107); Creatinine, Serum 0.75 mg/dL (0.55-1.02); EST Glomerular Filtration Rate 88 mL/min (>60); Est Glom Filt Rate - Afr Amer 106 mL/min (>60); Ferritin 70 ng/mL (8-252); Globulin 3.9 g/dL (2.2-4.2); Glucose 99 mg/dL (74-106); Iron 71 ug/dL (50-170); Iron Binding Capacity,Total 231 ug/dL (250-450); PERCENT IRON SATURATION 30.7 % (15.0-55.0); Potassium 3.7 mmol/L (3.5-5.1); Protein, Total 7.2 g/dL (6.4-8.2); Sodium Level 141 mmol/L (136-145)
[2023-08-09 05:07] LABS: Complement C3 132 mg/dL (82-167)
[2023-08-09 18:07] LABS: Anti-dsDNA Ab 4 IU/mL (0-9)
== END | disposition home or self-care (01) ==
LOC: PAVLAB 12:13 → LAB 12:41
PROVIDERS: PCP Internal Medicine
DX: M32.9 Systemic lupus erythematosus, unspecified (principal); M19.90 Unspecified osteoarthritis, unspecified site; E55.9 Vitamin D deficiency, unspecified; R80.9 Proteinuria, unspecified; D64.9 Anemia, unspecified; Z79.899 Other long term (current) drug therapy
CPT/HCPCS: 36415; 80053; 82306; 82607; 82728; 82746; 83540; 83550; 85025; 85652; 86140; 86160; 86225

== ENCOUNTER 2023-08-21 11:09 | Day surgery (SDC) | payer MEDICAID, SELFPAY ==
[2023-08-21 11:57] VITALS: BP 102/61; PULSE 85; RESP 16; TEMP 36.4; O2SAT 98; BMI 29.1
[2023-08-21] MEDS: Lactated Ringers 1,000 ML 15 ML IV (12:04)
--- NOTE | 2023-08-21 13:00 | COLBX_PTH ---
PATIENT: CHARLOTTE VASQUEZ LOC: EN U#:[id number] AGE/SX: 47/F ROOM: RE08/21/[address]: Dr. Gary Diaz DO : 1975 BED: DIS: 08/21/2023 SPEC #: [id number] RECD: 08/21/23 17:50 STATUS: RAMON GONZALEZ #: [id number] CHERYL: 08/21/23 13:[address]: Gary Diaz DEPT: SURGICAL PATHOLOGY RECD BY: Ericka Mar ENTERED: 08/22/23 11:57 SP TYPE: COLON BX OTHR DR: Dr. Gayle Munoz MD Tissues: A - Pyloric sphincter B - Ileum, NOS C - Sigmoid colon biopsy Procedures: Surgery Specimen Level IV HEADER OPERATION: Colonoscopy, EGD, biopsy, dilation PRE-OP DIAGNOSIS: Nausea and vomiting, epigastric pain, constipation TISSUE SUBMITTED: A- Pyloric sphincter biopsy, B- Terminal ileum biopsy, C- Sigmoid biopsy MICROSCOPIC DIAGNOSIS A. Pyloric sphincter, biopsy: Gastroesophageal junctional mucosa with minimal chronic inflammation. B. Terminal ileum, biopsy: No pathologic change. C. Sigmoid colon, biopsy: No pathologic change. POPEYE/ 08/23/2023 COMMENT A. The results of immunohistochemistry for Helicobacter pylori will be reported separately ([id number]). MICROSCOPIC DESCRIPTION Slides are reviewed. GROSS DESCRIPTION A. Received in fixative is one container labeled with the patient's name and designated Pyloric sphincter biopsy. The specimen consists of two irregular fragments of light doyle soft tissue that in aggregate measure 0.6 x 0.3 x 0.1 cm. The specimen is totally submitted in one cassette. B. Received in fixative is one container labeled with the patient's name and designated Terminal ileum biopsy. The specimen consists of multiple irregular fragments of light doyle soft tissue that in aggregate measure 2.0 x 0.4 x 0.1 cm. The specimen is totally submitted in one cassette. C. Received in fixative is one container labeled with the patient's name and designated Sigmoid biopsy. The specimen consists of multiple irregular fragments of light doyle soft tissue that in aggregate measure 0.8 x 0.3 x 0.1 cm. The specimen is totally submitted in one cassette. Emmanuelle 08/22/2023 TC:3 CPT:26714i2
--- NOTE | 2023-08-21 13:00 | IMM_PTH ---
PATIENT: CHARLOTTE VASQUEZ LOC: EN U#:[id number] AGE/SX: 47/F ROOM: RE08/21/[address]: Dr. Gary Diaz DO : 1975 BED: DIS: 08/21/2023 SPEC #: [id number] RECD: 08/22/23 14:54 STATUS: RAMON REQ #: [id number] CHERYL: 08/21/23 13:[address]: Gary Diaz DEPT: IMMUNOHISTOCHEMISTRY RECD BY: Jona Linares ENTERED: 08/22/23 14:54 SP TYPE: IMMUNO OTHR DR: Dr. Gayle Munoz MD Tissues: A - Pyloric sphincter Procedures: H Pylori (initial) PHYSICIAN & INSTITUTION [address] [address] SPECIMEN INFORMATION: Tissue Source: A- Pyloric sphincter Clinical Info: Nausea and vomiting, constipation, epigastric pain Specimen Number: [id number] CPT code: 39799 METHODOLOGY: Deparaffinized sections of prefer/formalin-fixed tissue or PAP/DQ stained slides are incubated with monoclonal/polyclonal antibodies/oligonucleotide probes. Localization is made via biotin free immunoperoxidase method. Appropriate controls are performed and reacted as expected. Results on target cell population are indicated in the following table: RESULTS: ANTIBODY / CLONE RESULT Block A H Pylori (polyclonal) negative These tests were developed and their performance characteristics determined by [facility]. They may not have been cleared or approved by the U.S. Food and Drug Administration. The FDA has determined that such clearance or approval is not necessary. The above immunohistochemical/dualISH markers are ordered and reviewed by the Pathologist. INTERPRETATION: A. Pyloric sphincter, biopsy: Negative for Helicobacter pylori organisms. POPEYE/ 08/23/2023
--- NOTE | 2023-08-21 13:12 | HP.PCM_ITS ---
History and Physical Date of Admission: 08/21/23 Chief Complaint: FU Chronic Conditions. Details: CHARLOTTE VASQUEZ, is a 47 F who presents to the office today for follow up. *BGI established 05.09.21 with abdominal and rectal pain occurring 3-4/week with intermittent presentation of rectal bleeding. Dysphagia with food sticking in her throat. ?EGD and colonoscopy 06.22.21?EGD LA Grade A esophagitis; gastritis; duodenitis?Colonoscopy Congestion throughout colon; 5mm sessile TA polyp.?CT abd/pel 06.09.21 (ED)?gallbladder sludge.? OV 07.13.21 with ongoing symptoms.?Start dicyclomine?Biochemical?ESR, CHARISSA, ferritin, ceruloplasmin, haptoglobin, ammonia, A1c, GGT, AMA, ASM, HIV, hepatitis without pertinent abnormality.?AST 16-ALT 21-AP H141, ammonia H38, CRP H4.92, ANCA H1:320, [id number] H3?HIDA 07.25.21?EF 70%?US RUQ 3.10.22?hepatic measurement 17.8cm with fatty infiltration.? 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 OV 5.5.22 with ongoing symptoms of loose stools, abdominal/epigastric pain, emesis.?Biochemical?catecholamines, gastrin, amylase, CPK, ANCA without pertinent abnormality?chromogranin A H109.1, scl-70 ab H3.2, IgG1 H963?Urine porhyrins not performed.?EGD 09.09.21?ectopic gastric mucosa; LA Grade B esophagitis? Rheumatology OV 11.03.21 PAT positive with inflammatory arthritis. Likely lupus causing inflammatory arthritis, recommended plaquenil. Did not keep f/u apt.? OV 02.22.22 ongoing abdominal pain?Stool?fecal fat, elastase not performed?US RUQ 3.. (ED)?hepatic measurement 16.7cm with normal echogenicity.? OV 07.21.22 with ongoing symptoms.?Start amitiza and reglan.?No relief of constipation with Metamucil, miralax or Colace.?CT abd/pel 07.25.22 (ED)?without acute/chronic finding.?Gastric emptying study 5.8.23?43.78minutes (12-56).?EGD 09.27.22?EOE, no path changes; intrinsic stenosis, Savary 54F; small hiatal hernia; pyloric stenosis, TTS 15mm; duodenitis? Today reports no change in her symptoms. Still varies between diarrhea and constipation. Patient states that her pharmacy never gave her the Amitiza or reglan. Still having dysphagia. Patient is taking pantoprazole. OV 430.24 ROS Const Constitutional: Positive for fatigue, frequent falls and weight change (weight loss); No fever(s) ENT ENT: Positive for difficulty swallowing Gastro GI: Positive for abdominal pain, change in bowel habits, constipation, diarrhea, difficulty swallowing, Vomiting blood/hematemesis, nausea/dyspepsia and vomiting; No belching, bloating, change in stool character, coffee ground emesis, cramping, heartburn, feeling full early, excessive flatus, incontinent of stools, Blood in stool, loose stools, Black,tarry stools, pain with swallowing or other Musc Musculoskeletal: Positive for joint pain, back pain and joint swelling Skin Skin: No yellowing of the eye or itchy eyes Neuro Neurology: Positive for frequent falls Psych Psychiatric: Positive for anxiety and No depression Endo Endocrine: Positive for fatigue and weight change (weight loss) Aller/Imm Allergy/Immunologic: No itchy eyes Esteban/Lymp Hematologic/Lymphatic: Positive for easy bleeding and easy bruising Exam Const General: cooperative, comfortable and no acute distress Orientation: alert, awake and oriented x3 HENMT Head: normal to inspection, normocephalic and atraumatic Ears: hearing grossly normal bilaterally Neck Neck: normal visual inspection, full ROM and supple Resp Effort & Inspection: normal respiratory effort and able to speak in complete sentences Auscultation: Bilateral: Clear to Auscultation Cardio Rate: regular rate Rhythm: regular rhythm Heart Sounds: S1 normal and S2 normal GI Palpation: soft (Nontender, no palpable organomegaly) Neuro General: patient alert, patient awake, patient oriented x3, moves all extremities and CN's II-XI intact bilaterally Psych Appearance: grossly normal Mental Status: mental status grossly normal Mood: congruent mood Affect: normal affect Assessment and Plan Assessment and Plan (1) Nausea and vomiting: (2) Epigastric pain: Status: Inactive Plan: 46 yr old female with ongoing RUQ/epigstric/retrosternal pain with chronic nausea and vomiting. Complicated medical hx. Test for EPI, chronic pancreatitis--fecal elastase and fecal fats; I will contact her with results and see how she is doing on the Creon. Consider MRI/MRCP--can't do due to metal in feet Samples of Creon 1 w/ snack, 2 w/ meals Consider gastroparesis from meds such as topiramate, consider gastric emptying study Takes multiple meds for nausea and vomiting but still vomiting multiple times per week, causing bleeding. Has had 2 EGDs this year, consider when another when will be needed. Does she have a skein yarn dyer helper? Has dx of lupus. ?scleroderma per labs we did. Rheum disorder may be causing esophageal dysmotility, consider esophageal manometry. f/u one month (3) Nausea and vomiting: Status: Inactive Qualifiers: Vomiting type: bilious vomiting Qualified Code(s): R11.14 - Bilious vomiting Plan: Her nausea vomiting is multifactorial. However she has been experiencing some hematemesis. She will get a stat CBC along with iron studies today as previously ordered by skein yarn dyer helper and we will schedule for upper endoscopy. (4) Constipation: Status: Inactive Qualifiers: Constipation type: slow transit constipation Qualified Code(s): K59.01 - Slow transit constipation Plan: From her pelvic CT scan it looks like she has pelvic floor dysfunction due to previous trauma as a child we will give her antibiotics also because I think she is experiencing a stercoral ulcer. She is on immunosuppressive's with can delay her healing. I will give her doxycycline as she has allergies to ciprofloxacin penicillins and Bactrim. She will also need to undergo colonoscopy to evaluate her lower GI tract. Pending on her examination under anesthesia she may need referral to colorectal surgery. Originally had wanted to get an MRI of the pelvis to look for signs of abnormalities of her pelvic floor. However she has a back stimulator and that cannot be done. Recommend MiraLAX 17 g twice a day along with fiber in the form of Metamucil once a day..I have examined the patient and the H&P has been reviewed. There are no clinical changes since date of exam.
[2023-08-21 13:55] VITALS: BP 102/61; BP 96/56; PULSE 83; RESP 20; TEMP 35.9; O2SAT 93
--- NOTE | 2023-08-21 13:55 | OP.EGD_ITS ---
Patient Name: Crys Franks Procedure Date: 08/21/2023 1:12 PM Date of : 1975 Age: 47 Procedure: Upper GI endoscopy Indications: Epigastric abdominal pain Providers: Gary Diaz DO Referring MD: Gary Diaz DO Medicines: Monitored Anesthesia Care Patient Profile: This is a 47 year old female. Refer to note in patient chart for documentation of history and physical. Patient has symptoms of chronic abdominal cramping, chronic epigastric abdominal pain, chronic dysphagia, dysphagia with both liquids and solids, acute dyspepsia and chronic dyspepsia. Complications: No immediate complications. Procedure: Pre-Anesthesia Assessment: - Prior to the procedure, a History and Physical was performed, and patient medications and allergies were reviewed. The patient is competent. The risks and benefits of the procedure and the sedation options and risks were discussed with the patient. All questions were answered and informed consent was obtained. Patient identification and proposed procedure were verified by the physician in the pre-procedure area. Mental Status Examination: alert and oriented. Airway Examination: normal oropharyngeal airway and neck mobility. Respiratory Examination: clear to auscultation. CV Examination: normal. Prophylactic Antibiotics: The patient does not require prophylactic antibiotics. Prior Anticoagulants: The patient has taken no anticoagulant or antiplatelet agents. ASA Grade Assessment: II - A patient with mild systemic disease. After reviewing the risks and benefits, the patient was deemed in satisfactory condition to undergo the procedure. The anesthesia plan was to use monitored anesthesia care (MAC). Immediately prior to administration of medications, the patient was re-assessed for adequacy to receive sedatives. The heart rate, respiratory rate, oxygen saturations, blood pressure, adequacy of pulmonary ventilation, and response to care were monitored throughout the procedure. The physical status of the patient was re-assessed after the procedure. After obtaining informed consent, the endoscope was passed under direct vision. Throughout the procedure, the patient's blood pressure, pulse, and oxygen saturations were monitored continuously. The pediatric colonoscope was introduced through the mouth, and advanced to the duodenal bulb. The upper GI endoscopy was accomplished without difficulty. The patient tolerated the procedure well. Scope In: 1:24:50 PM Scope Out: 1:29:17 PM Total Procedure Duration Time 0 hours 4 minutes 27 seconds Findings: One benign-appearing, intrinsic moderate stenosis was found 21 to 23 cm from the incisors. The stenosis was traversed. A guidewire was placed and the scope was withdrawn. Dilation was performed with a Savary dilator with no resistance at 54 Fr. The dilation site was examined and showed mild mucosal disruption. Estimated blood loss was minimal. Patchy mildly erythematous mucosa without bleeding was found at the pylorus. Biopsies were taken with a cold forceps for histology. Verification of patient identification for the specimen was done. Estimated blood loss was minimal. Biopsies were taken with a cold forceps for Helicobacter pylori testing. Verification of patient identification for the specimen was done. Estimated blood loss was minimal. No gross lesions were noted in the duodenal bulb. Impression: - Benign-appearing esophageal stenosis. Dilated. - Erythematous mucosa in the pylorus. Biopsied. - No gross lesions in the duodenal bulb. Recommendation: - Discharge patient to home. - Resume previous diet. - Continue present medications. - Await pathology results. Procedure Code(s): --- Professional --- 36865, Esophagogastroduodenoscopy, flexible, transoral; with insertion of guide wire followed by passage of dilator(s) through esophagus over guide wire 89035, 59,51, Esophagogastroduodenoscopy, flexible, transoral; with biopsy, single or multiple CPT copyright 2021 [employer] [place] [employer]. All rights reserved. The codes documented in this report are preliminary and upon reduction plant supervisor review may be revised to meet current compliance requirements. Gary Diaz DO 08/21/2023 1:55:41 PM This report has been signed electronically. Number of Addenda: 0 Note Initiated On: 08/21/2023 1:12 PM
--- NOTE | 2023-08-21 13:56 | OP.CCLET_ITS ---
08/21/2023 Gayle Munoz MD [address] [place] [address] Re : Upper GI endoscopy procedure for Crys Franks Dear Dr. Munoz This procedure was performed on Monday, August 21, 2023. My impressions and recommendations are as follows: Impressions : - Benign-appearing esophageal stenosis. Dilated. - Erythematous mucosa in the pylorus. Biopsied. - No gross lesions in the duodenal bulb. Recommendations : - Discharge patient to home. - Resume previous diet. - Continue present medications. - Await pathology results. My findings are described in the full procedure note, which is enclosed. If I can be of further assistance, please feel free to contact me at . Sincerely, Gary Diaz, 08/21/2023 1:55:41 PM This report has been signed electronically.
--- NOTE | 2023-08-21 13:59 | OP.CCLET_ITS ---
08/21/2023 Gayle Munoz MD [address] [place] [address] [place] [address] Re : Colonoscopy procedure for Crys Franks Dear Dr. Munoz This procedure was performed on Monday, August 21, 2023. My impressions and recommendations are as follows: Impressions : - Congested mucosa in the sigmoid colon. Biopsied. - Congested mucosa in the terminal ileum. Biopsied. Recommendations : - Discharge patient to home. - Resume previous diet. - Continue present medications. - Await pathology results. - Repeat colonoscopy for surveillance based on pathology results. My findings are described in the full procedure note, which is enclosed. If I can be of further assistance, please feel free to contact me at . Sincerely, Gary Diaz, 08/21/2023 1:59:05 PM This report has been signed electronically.
--- NOTE | 2023-08-21 13:59 | OP.COLON_ITS ---
Patient Name: Crys Franks Procedure Date: 08/21/2023 1:29 PM Date of : 1975 Age: 47 Procedure: Colonoscopy Indications: Generalized abdominal pain, Clinically significant diarrhea of unexplained origin Providers: Gary Diaz DO Referring MD: Gary Diaz DO Medicines: Monitored Anesthesia Care Patient Profile: This is a 47 year old female. Refer to note in patient chart for documentation of history and physical. Patient has symptoms of chronic abdominal cramping, chronic epigastric abdominal pain, chronic dysphagia, dysphagia with both liquids and solids, acute dyspepsia and chronic dyspepsia. Last Colonoscopy: date unknown. Unable to locate last colonoscopy report. Complications: No immediate complications. Procedure: Pre-Anesthesia Assessment: - Prior to the procedure, a History and Physical was performed, and patient medications and allergies were reviewed. The patient is competent. The risks and benefits of the procedure and the sedation options and risks were discussed with the patient. All questions were answered and informed consent was obtained. Patient identification and proposed procedure were verified by the physician in the pre-procedure area. Mental Status Examination: alert and oriented. Airway Examination: normal oropharyngeal airway and neck mobility. Respiratory Examination: clear to auscultation. CV Examination: normal. Prophylactic Antibiotics: The patient does not require prophylactic antibiotics. Prior Anticoagulants: The patient has taken no anticoagulant or antiplatelet agents. ASA Grade Assessment: II - A patient with mild systemic disease. After reviewing the risks and benefits, the patient was deemed in satisfactory condition to undergo the procedure. The anesthesia plan was to use monitored anesthesia care (MAC). Immediately prior to administration of medications, the patient was re-assessed for adequacy to receive sedatives. The heart rate, respiratory rate, oxygen saturations, blood pressure, adequacy of pulmonary ventilation, and response to care were monitored throughout the procedure. The physical status of the patient was re-assessed after the procedure. After I obtained informed consent, the scope was passed under direct vision. Throughout the procedure, the patient's blood pressure, pulse, and oxygen saturations were monitored continuously. The Colonoscope was introduced through the anus and advanced to the terminal ileum. The colonoscopy was performed without difficulty. The patient tolerated the procedure well. The quality of the bowel preparation was good. The terminal ileum, ileocecal valve, appendiceal orifice, and rectum were photographed. Scope In: 1:32:17 PM Scope Withdrawal Time 0 hours 9 minutes 46 seconds Scope Out: 1:48:14 PM Total Procedure Duration Time 0 hours 15 minutes 57 seconds Findings: The perianal and digital rectal examinations were normal. An area of mildly congested mucosa was found in the sigmoid colon. Biopsies were taken with a cold forceps for histology. Verification of patient identification for the specimen was done. Estimated blood loss was minimal. No other significant abnormalities were identified in a careful examination of the remainder of the colon. A localized area of the terminal ileum was congested. Biopsies were taken with a cold forceps for histology. Verification of patient identification for the specimen was done. Estimated blood loss was minimal. Impression: - Congested mucosa in the sigmoid colon. Biopsied. - Congested mucosa in the terminal ileum. Biopsied. Recommendation: - Discharge patient to home. - Resume previous diet. - Continue present medications. - Await pathology results. - Repeat colonoscopy for surveillance based on pathology results. Procedure Code(s): --- Professional --- 10287, Colonoscopy, flexible; with biopsy, single or multiple CPT copyright 2021 [employer]. All rights reserved. The codes documented in this report are preliminary and upon parts product analyst review may be revised to meet current compliance requirements. Gary Diaz DO 08/21/2023 1:59:05 PM This report has been signed electronically. Number of Addenda: 0 Note Initiated On: 08/21/2023 1:29 PM
[2023-08-21 14:00] VITALS: BP 102/61; BP 81/68; PULSE 80; RESP 20; O2SAT 93
[2023-08-21 14:05] VITALS: BP 102/61; BP 91/47; PULSE 74; RESP 18; O2SAT 95
[2023-08-21 14:20] VITALS: BP 102/61; BP 105/75; PULSE 69; RESP 14; TEMP 35.9; O2SAT 95
[2023-08-21 15:06] VITALS: BP 102/61
== END 2023-08-21 15:07 | disposition home or self-care (01) ==
LOC: EN 11:17 → AC 11:21
PROVIDERS: PCP Internal Medicine; Referring Provider Internal Medicine Gastroenterology; Visit Provider Internal Medicine Gastroenterology
PROC: 0DJD8ZZ Inspection of Lower Intestinal Tract, Via Natural or Artificial Opening Endoscopic (ICD-10-PCS; CPT 45378; principal; 2023-08-21 12:55)
DX: K29.90 Gastroduodenitis, unspecified, without bleeding (principal); K63.89 Other specified diseases of intestine; K22.2 Esophageal obstruction; E78.00 Pure hypercholesterolemia, unspecified; Z79.899 Other long term (current) drug therapy; K21.9 Gastro-esophageal reflux disease without esophagitis; Z90.49 Acquired absence of other specified parts of digestive tract
CPT/HCPCS: 45380; 43248; 43239; 88305; 88342; J7120; C1769; J2405

== ENCOUNTER 2023-08-22 07:22 | Emergency (ER) | payer MEDICAID, SELFPAY ==
[2023-08-22 07:24] VITALS: BP 105/65; PULSE 96; RESP 18; TEMP 36.2; O2SAT 100
[2023-08-22 07:26] VITALS: BMI 29.0
--- NOTE | 2023-08-22 07:32 | EX.ED.GENINJ ---
HPI History of Present Illness Chief Complaint: Nausea/Vomiting [facility] Medical History (Updated 08/17/23 @ 10:05 by Aidan Rodriguez) GERD (gastroesophageal reflux disease) High cholesterol PTSD (post-traumatic stress disorder) History of stress test History of echocardiogram Cardiology follow-up encounter Chest pain Syncope Palpitations Hyperlipidemia Bradycardia Hematemesis of unknown cause Degenerative disc disease Superior glenoid labrum lesion of right shoulder Constipation Early satiety Rotator cuff injury Right shoulder pain Cough Nausea and vomiting Epigastric pain Flu vaccine need Lupus Debility Chronic lumbar radiculopathy Health care maintenance Hematemesis Vomiting Elevated antinuclear antibody (PAT) level Positive P-ANCA titer GI bleed Colon polyp Fatty liver Sludge in gallbladder Post-menopausal Anxiety Seizures Smoker Wheelchair dependent Wheel chair as ambulatory aid Foot pain, left Lower GI bleeding Dysphagia Elevated blood pressure reading Hypokalemia Abdominal pain UTI (urinary tract infection) Uterine cancer Cervical cancer Interstitial cystitis Acute cystitis Hematuria Flank pain Fibromyalgia Blurry vision, left eye Dizziness Headache Fall Postoperative pain Acute pain of left foot Postoperative wound infection Insect bite Cellulitis Incisional hernia Gastroesophageal reflux disease Urinary frequency Urge incontinence Urinary urgency Migraines Lamar's palsy Depression with anxiety Ulcer Lipoma Stroke Seizures Osteoarthritis Neuropathy Kidney stones Irritable bowel syndrome Hives Hearing problem Carpal tunnel syndrome Arthritis Seasonal allergies Home Medications ?Medication ?Instructions ?Recorded ?Last Taken ?Type topiramate 200 mg tablet 200 mg PO QHS headaches 08/15/18 Unknown History Handicap Placard #1 ea 05/03/20 Unknown Rx baclofen 10 mg tablet 10 mg PO TID 03/23/21 08/21/23 History remington (Ultra-Light Rollator Dialoggyc) #1 ea 09/26/21 Unknown Rx quetiapine 300 mg tablet (Seroquel) 700 mg PO DAILY 02/22/22 Unknown History epinephrine 0.3 mg/0.3 mL 0.3 mg (0.3 mL) IM Q5-15M PRN 04/14/22 Unknown Rx injection, auto-injector (EpiPen anaphylaxis #2 ea 2-Raymond) remington (Ultra-Light Rollator misc) #1 ea 08/10/22 Unknown Rx hydroxychloroquine 200 mg tablet 200 mg PO BID 08/15/22 Unknown History levetiracetam 500 mg tablet 500 mg PO BID #180 tabs 09/26/22 08/21/23 Rx (Keppra) Handicap Placard #1 ea 03/09/23 Unknown Rx wheelchair #1 ea 03/09/23 Unknown Rx carbamazepine 200 mg tablet 200 mg PO DAILY seizures 04/17/23 08/21/23 History docusate sodium 100 mg capsule 100 mg PO BID 04/17/23 Unknown History fremanezumab-vfrm 225 mg/1.5 mL 225 mg subcut QMONTH 04/17/23 Unknown History subcutaneous auto-injector (Ajovy) hydroxyzine pamoate 50 mg capsule 50 mg PO BID PRN anxiety 04/17/23 Unknown History nortriptyline 10 mg capsule 30 mg PO QHS 04/17/23 Unknown History ondansetron 4 mg disintegrating 4 mg PO Q8H PRN nausea and vomiting 04/17/23 Unknown History tablet prazosin 2 mg capsule 4 mg PO QHS 04/17/23 Unknown History sumatriptan succinate 100 mg tablet See Rx Instructions .Route 04/19/23 Unknown Rx .COMPLEX #14 tabs simvastatin 20 mg tablet 20 mg PO QPM #90 tabs 05/31/23 Unknown Rx folic acid 1 mg tablet 1 mg PO DAILY 06/08/23 Unknown History methotrexate sodium 2.5 mg tablet 20 mg PO TU 06/08/23 Unknown History quetiapine 400 mg tablet 400 mg PO DAILY 06/08/23 Unknown History ubrogepant 100 mg tablet (Ubrelvy) 100 mg PO DAILY 06/08/23 Unknown History gabapentin 600 mg tablet 600 mg PO TID nerve pain #90 tabs 06/29/23 08/21/23 Rx pantoprazole 40 mg tablet,delayed 40 mg PO DAILY #90 tabs 06/29/23 08/21/23 Rx release promethazine 25 mg tablet See Rx Instructions .Route 07/17/23 Unknown Rx .COMPLEX #60 tabs scopolamine base 1 mg over 3 days 1 patch transdermal Q3D PRN nausea 07/17/23 Unknown Rx transdermal patch and vomiting #10 ea lubiprostone 8 mcg capsule 8 mcg PO DAILY #30 caps 08/10/23 Unknown Rx (Amitiza) metoclopramide HCl 5 mg tablet 5 mg PO Q6H #60 tabs 08/10/23 Unknown Rx (Reglan) Allergy/AdvReac Type Severity Reaction Status Date / Time venom-honey bee Allergy Severe severe Verified 08/22/23 07:24 venom-wasp Allergy Severe severe Verified 08/22/23 07:24 doxycycline Allergy Intermediate Rash Verified 08/22/23 07:24 ciprofloxacin (From Cipro) Allergy Rash Verified 08/22/23 07:24 erythromycin base Allergy Anaphylaxis Verified 08/22/23 07:24 iodine Allergy Anaphylaxis Verified 08/22/23 07:24 latex Allergy Rash Verified 08/22/23 07:24 metronidazole (From Flagyl) Allergy Anaphylaxis Verified 08/22/23 07:24 naproxen (From Naprosyn) Allergy Anaphylaxis Verified 08/22/23 07:24 Penicillins Allergy Anaphylaxis Verified 08/22/23 07:24 shellfish derived Allergy Anaphylaxis Verified 08/22/23 07:24 lithium AdvReac Intermediate Mood Verified 08/22/23 07:24 changes adhesive AdvReac Mild BLISTERS Verified 08/22/23 07:24 sulfamethoxazole (From AdvReac Hives Verified 08/22/23 07:24 Bactrim) trimethoprim (From Bactrim) AdvReac Hives Verified 08/22/23 07:24 Family History Father Asthma Grandfather No problems noted. Grandmother Asthma Brother Lung cancer Diabetes Hypertension Grandfather Asthma Grandmother Asthma Hypertension Mother Diabetes Aunt Diabetes Son Seizures Asthma Surgical History History of repair of rotator cuff Hx of surgical procedure History of colonoscopy History of esophagogastroduodenoscopy (EGD) Hx of surgical procedure Status post left foot surgery S/P left knee surgery S/P umbilical hernia repair, follow-up exam History of bladder repair surgery History of spinal surgery History of appendectomy History of hysterectomy History of orthopedic surgery History of carpal tunnel surgery of right wrist Social History Smoking Status: Light Smoker (<10/day) alcohol intake: never substance use type: does not use caffeine: No what type of physical activity do you participate in: none EXAM Physical Exam Const Vital Signs: 08/22/23 07:24 08/22/23 09:23 Temperature 97.1 F L Temperature Source Temporal Pulse Rate 96 76 Respiratory Rate 18 16 Blood Pressure 105/65 110/74 Blood Pressure Mean 78 86 Pulse Ox 100 99 Oxygen Delivery Method Room Air Room Air MDM MDM MDM Narrative Medical decision making narrative: HISTORY OF PRESENT ILLNESS: 47year old female presents with abdominal pain. Notes lower abdominal pain status post colonoscopy yesterday. REVIEW OF SYSTEMS: All other systems reviewed and are negative except as noted in the history of present illness. At least 10 review of systems reviewed and are negative except as noted in history of present illness. PHYSICAL EXAM: Nursing triage notes reviewed, Vital signs reviewed Constitutional: please see [facility] HENT: MMM Eyes: Pupils equal round and reactive to light, Extraocular muscles intact Neck: No stridor, no JVD, full neck ROM Lungs: Clear to auscultation, No wheezing or rales. No increased work of breathing, no conversational dyspnea, no accessory muscle use, no nasal flaring. No respiratory distress noted Heart: Regular rate and rhythm, No murmurs, No rubs and No gallops, 2+ distal pulses (radial, femoral, posterior tibial) in all extremities Abdomen: Soft, no rigidity, rebound or guarding, no obvious peritoneal signs, no palpable pulsatile abdominal masses, no auscultated abdominal bruit : No CVAT Extremities: No edema Neuro: No focal neurological deficits, cranial nerves II through XII intact, 5/5 strength in all extremities. Intact sensation to light touch in all extremities, 2+ reflexes bilateral patella tendons. Normal gait. No ataxia. Skin: No rash or lesions noted MEDICAL DECISION MAKING: Chief Complaint: abdominal pain External records reviewed: Colonoscopy and EGD reviewed from yesterday. Biopsies taken. Factors affecting care: Multiple medical comorbidities, multiple allergies Social determinants of health:none History obtained from others: none Consults: none [facility] Narrative: Patient was hemodynamically stable, afebrile, nontoxic-appearing. Exam without peritoneal signs. I considered the following differential diagnosis: AAA, small bowel obstruction, abdominal perforation, appendicitis, pancreatitis, hepatobiliary pathology (acute cholecystitis), mesenteric ischemia, abnormalities such as pyelonephritis, nephrolithiasis I obtained a broad lab and imaging workup to further elucidate etiology of the patient's complaints. ALL IMAGES (IF OBTAINED) HAVE BEEN PERSONALLY REVIEWED AND INTERPRETED BY MYSELF. CT scan of the abdomen pelvis was negative for perforation or obstruction CBC with no leukocytosis to suggest systemic inflammation, no thrombocytopenia, BMP without evidence of significant electrolyte abnormalities, no anion gap, no acute kidney injury. Lipase is wnl indicating no pancreatic inflammation. LFTs show no evidence of hepatobiliary pathology. Urinalysis shows no evidence of urinary inflammation suggestive of UTI I see nothing that would suggest an acute abdomen at this time. Based on history physical exam, risk factors, my suspicion for bowel obstruction, incarcerated hernia, perforated viscus, acute cholecystitis, appendicitis is very low. There is no evidence of peritonitis sepsis or toxicity at this time. I feel the patient can be managed as an outpatient with follow-up with her/his primary physician in the next 24 to 48 hours or soon as possible. Instructions have been given for the patient to return to the ED for worsening pain, anorexia, high fevers, intractable vomiting or bleeding. The patient and/or family, caregivers express understanding. The patient and/or family, caregivers agrees with the plan. Total critical care time today provided was at least 0 minutes. This excludes separately billable procedures. Critical care time (if documented) is secondary to the patient having high probability of clinically significant/life threatening deterioration in the patient's condition which required my urgent intervention. Shared decision making: I will have a discussion with the patient and or visitors regarding risk/benefits of further testing or admission. They will be made aware of of the risk/benefits inherent in this decision they will be given the opportunity to voice understanding. Impression: 1. Postop pain 2. Nausea vomiting 3. Dehydration Disposition: Discharge home Cj Nice DO This note was generated with [employer] dictation software. It may contain incorrect words, spelling, and punctuation that were not noted in review of the chart prior to signing. Lab Data Labs: Laboratory Results - last 24 hr 08/22/23 08/22/23 07:55 08:34 WBC 7.5 RBC 3.40 L Hgb 11.7 L Hct 35.3 L MCV 103.8 H MCH 34.4 H MCHC 33.1 RDW Std Deviation 51.3 H RDW Coeff of Karina 13.5 Plt Count 170 MPV 11.0 Immature Gran % (Auto) 0.300 Neut % (Auto) 70.8 H Lymph % (Auto) 20.0 [place] % (Auto) 6.6 Eos % (Auto) 1.9 Baso % (Auto) 0.4 Absolute Neuts (auto) 5.3 Absolute Lymphs (auto) 1.51 Nucleated RBC % 0 Sodium 139 Potassium 3.5 Chloride 111 H Carbon Dioxide 24.0 Anion Gap 4 L BUN 12 Creatinine 0.93 Estim Creat Clear Calc 84.13 Est GFR (MDRD) Af Amer 83 Est GFR (MDRD) Non-Af 69 BUN/Creatinine Ratio 12.9 Glucose 113 H Calcium 8.7 Total Bilirubin 0.20 AST 16 ALT 15 Alkaline Phosphatase 105 Total Protein 7.3 Albumin 3.3 Globulin 4.0 Albumin/Globulin Ratio 0.8 L Lipase 22 Urine Color Yellow Urine Clarity Clear Urine pH 6.0 Ur Specific [place] 1.015 Urine Protein 30 H Urine Glucose (UA) Normal Urine Ketones Negative Urine Occult Blood Negative Urine Nitrite Negative Urine Bilirubin Negative Urine Urobilinogen Normal Ur Leukocyte Esterase 25 H Urine RBC 0 SEEN Urine WBC 0 SEEN Ur Squamous Epith Cells 0-5 SEEN Amorphous Sediment 1+ Urine Bacteria 0 SEEN Urine Mucus 1+ Radiography Diagnostic Testing: Clinical Impression(s) from Imaging Studies Abdomen/Pelvis CT 08/22/23 07:35 IMPRESSION: No evidence of free air. Questionable tiny gallstones. Sigmoid diverticulosis. Status post hysterectomy. Electronically Signed: Amado Bernardo MD at 8:36 EDT , Discharge Plan Triage Chief Complaint: Nausea/Vomiting ED Provider: Cj Nice Dx/Rx/DC Orders Prescriptions: No Action topiramate 200 mg tablet 200 mg PO QHS carbamazepine 200 mg tablet 200 mg PO DAILY Patient Comments: 1 Tab AM & 2 PM baclofen 10 mg tablet 10 mg PO TID quetiapine [Seroquel] 300 mg tablet 700 mg PO DAILY epinephrine [EpiPen 2-Raymond] 0.3 mg/0.3 mL auto-injector 0.3 mg IM Q5-15M PRN (Reason: anaphylaxis) Qty: 2 3RF Rx Instructions: do not exceed 3 doses per episode hydroxychloroquine 200 mg tablet 200 mg PO BID (DME) Handicap Placard See Rx Instructions .ROUTE .MEDSUPPLY Qty: 1 0RF Rx Instructions: As directed, length of time 3 years (DME) wheelchair See Rx Instructions .Route .MEDSUPPLY Qty: 1 0RF Rx Instructions: As directed methotrexate sodium 2.5 mg tablet 20 mg PO TU folic acid 1 mg tablet 1 mg PO DAILY quetiapine 400 mg tablet 400 mg PO DAILY Ubrelvy 100 mg tablet 100 mg PO DAILY Patient Comments: PER PT: CAN TAKE UP TO 2 IN A 24 HOUR PEROID, BUT NO MORE THEN 8 TABS MONTHLY ondansetron 4 mg tablet,disintegrating 4 mg PO Q8H PRN (Reason: nausea and vomiting) nortriptyline 10 mg capsule 30 mg PO QHS docusate sodium 100 mg capsule 100 mg PO BID hydroxyzine pamoate 50 mg capsule 50 mg PO BID PRN (Reason: anxiety) prazosin 2 mg capsule 4 mg PO QHS Ajovy Autoinjector 225 mg/1.5 mL auto-injector 225 mg subcut QMONTH (DME) Handicap Placard See Rx Instructions .Route .MEDSUPPLY Qty: 1 0RF Rx Instructions: As directed, length of time 3 years (DME) Ultra-Light Rollator Misc See Rx Instructions .Route Qty: 1 0RF Rx Instructions: As directed (DME) Ultra-Light Rollator Misc See Rx Instructions .Route Qty: 1 0RF Rx Instructions: As directed levetiracetam [Keppra] 500 mg tablet 500 mg PO BID Qty: 180 0RF sumatriptan succinate 100 mg tablet See Rx Instructions .ROUTE .COMPLEX Qty: 14 3RF Dose Instruction: TAKE 1 TABLET BY MOUTH AT ONSET OF A MIGRAINE - NOT TO EXCEED MORE THAN 1 TABLET DAILY Rx Instructions: TAKE 1 TABLET BY MOUTH AT ONSET OF A MIGRAINE - NOT TO EXCEED MORE THAN 1 TABLET DAILY simvastatin 20 mg tablet 20 mg PO QPM Qty: 90 1RF gabapentin 600 mg tablet 600 mg PO TID Qty: 90 1RF pantoprazole 40 mg tablet,delayed release (DR/EC) 40 mg PO DAILY Qty: 90 1RF scopolamine base 1 mg over 3 days patch 3 day 1 patch transdermal Q3D PRN (Reason: nausea and vomiting) Qty: 10 5RF promethazine 25 mg tablet See Rx Instructions .ROUTE .COMPLEX Qty: 60 2RF Dose Instruction: TAKE 1 TABLET BY MOUTH TWICE A DAY NEEDED FOR NAUSEA OR VOMITING Rx Instructions: TAKE 1 TABLET BY MOUTH TWICE A DAY NEEDED FOR NAUSEA OR VOMITING metoclopramide HCl [Reglan] 5 mg tablet 5 mg PO Q6H Qty: 60 0RF lubiprostone [Amitiza] 8 mcg capsule 8 mcg PO DAILY Qty: 30 0RF Primary Care Provider: Gayle Munoz Referrals: Gayle Munoz MD [Primary Care Provider] - Print Language: Nigerien
--- NOTE | 2023-08-22 07:35 | CT_ITS ---
STUDY: CT ABDOMEN AND PELVIS WITHOUT CONTRAST REASON FOR EXAM: Female, 47 years old. Pain, status post colonoscopy, r/o perforation RADIATION DOSAGE (If Supplied By Facility): CTDIvol = ( 8.45 ) mGy, DLP = ( 453.91 ) mGycm TECHNIQUE: Transaxial images were obtained from the dome of the diaphragm to the symphysis pubis without oral contrast, and without intravenous contrast. Sagittal and coronal images were reconstructed. Individualized dose optimization techniques were used for this CT. COMPARISON: Comparison is made with prior study December 07, 2022. FINDINGS: Minimal degree of right basilar linear atelectasis. The visualized portions of the heart are within normal limits. Normal liver. Questionable tiny gallstones. Normal spleen. Normal pancreas. Normal bilateral adrenal glands. Normal right kidney. Normal left kidney. Normal visualized stomach. Normal small intestine. There are multiple colonic diverticula consistent with diverticulosis. There are surgical clips in the region of the appendix consistent with a prior appendectomy. There is scattered atherosclerotic calcification of the abdominal aorta, without a demonstrated aneurysm. Normal inferior vena cava. Normal retroperitoneum. Normal urinary bladder. There is absence of the uterus consistent with a prior hysterectomy. Normal abdominal wall. Fusion at the L5-S1 level with disc space narrowing. CT/Abdomen/Pelvis without Cont IMPRESSION: No evidence of free air. Questionable tiny gallstones. Sigmoid diverticulosis. Status post hysterectomy. Electronically Signed: Amado eBrnardo MD at 8:36 EDT ,
[2023-08-22] MEDS: Ondansetron 4 MG/2 ML Vial IV (07:57)
[2023-08-22] MEDS: 0.9% Normal Saline (1000mL) 1,000 ML 999 ML IV (07:57)
[2023-08-22] MEDS: Morphine 4 MG/ML Syringe IV (07:58)
[2023-08-22 08:01] LABS: Absolute Lymphocyte Count 1.51 X10^3/uL (0.83-4.51); Absolute Neutrophil Count 5.3 X10^3/uL (2.0-7.7); Basophil# 0.03 X10^3/uL; Basophil% 0.4 % (0-1); Eosinophil# 0.14 X10^3/uL; Eosinophils% 1.9 % (0-5); Hematocrit 35.3 % (37-47); Hemoglobin 11.7 g/dL (12.0-15.0); Lymphocyte # 1.51 X10^3/ul (0.83-4.51); Mean Corp Hgb Conc 33.1 g/dL (32-36); Mean Corpuscular Hgb 34.4 pg (27.0-32.0); Mean Corpuscular Volume 103.8 fL (81-99); Monocyte% 6.6 % (0-10); NRBC Flagged by Analyzer 0 % (0-5); Neutrophil # 5.34 X10^3/uL (2.7-7.7); Neutrophil % 70.8 % (47-70); Platelet Count 170 K/mm3 (150-450); RBC Distribution Width CV 13.5 % (11.6-14.6); RBC Distribution Width SD 51.3 fl (35.1-43.9); White Blood Count 7.5 K/mm3 (4.4-11.0)
[2023-08-22 08:23] LABS: ALB/GLOB Ratio 0.8 RATIO (0.9-2.4); AST(SGOT) 16 U/L (15-37); Alanine Aminotransfer ALT/SGPT 15 U/L (13-56); Albumin, Serum 3.3 g/dL (3.2-5.0); Alkaline Phosphatase 105 U/L (45-117); Anion Gap 4 (5-15); BUN 12 mg/dL (7-18); BUN/Creat Ratio 12.9 RATIO (10-20); Calcium,Total 8.7 mg/dL (8.5-10.1); Chloride 111 mmol/L (98-107); Creatinine, Serum 0.93 mg/dL (0.55-1.02); EST Glomerular Filtration Rate 69 mL/min (>60); Est Glom Filt Rate - Afr Amer 83 mL/min (>60); Estimated Creatinine Clearance 84.13 ml/min; Glucose 113 mg/dL (74-106); Lipase 22 U/L (13-75); Potassium 3.5 mmol/L (3.5-5.1); Protein, Total 7.3 g/dL (6.4-8.2); Sodium Level 139 mmol/L (136-145)
[2023-08-22 08:44] LABS: Bacteria 0 SEEN /hpf (None Seen); Color, Urine Yellow (Yellow); Glucose, Dipstick Normal (Normal); Ketone-Dipstick Negative (Negative); Leukocyte Esterase-Dipstick 25 /ul (Negative); Nitrite-Dipstick Negative (Negative); Occult Blood-Urine Negative /ul (Negative); Protein-Dipstick 30 mg/dl (Negative); Red Blood Cells-Urine 0 SEEN /hpf (0-5); Specific Gravity, Urine 1.015 (1.002-1.030); Urine Bilirubin Dipstick Negative (Negative); Urine Clarity Clear (Clear); Urine Urobilinogen Normal (Normal); White Blood Cells 0 SEEN /hpf (0-5)
[2023-08-22 08:51] LABS: Amorphous Sediment 1+; Mucous, Urine 1+ /hpf (<or=2+); Squamous Epithelial Cells - UA 0-5 SEEN /hpf (5-10)
[2023-08-22 09:23] VITALS: BP 110/74; PULSE 76; RESP 16; O2SAT 99
[2023-08-22 09:58] VITALS: BP 110/74; PULSE 76; RESP 16; TEMP 36.9; O2SAT 99
== END 2023-08-22 10:07 | disposition home or self-care (01) ==
PROVIDERS: Emergency Provider Emergency Medicine; PCP Internal Medicine; Visit Provider Emergency Medicine
DX: G89.18 Other acute postprocedural pain (principal); R11.2 Nausea with vomiting, unspecified; F17.200 Nicotine dependence, unspecified, uncomplicated; E86.0 Dehydration; E78.00 Pure hypercholesterolemia, unspecified; Z85.41 Personal history of malignant neoplasm of cervix uteri; Z85.42 Personal history of malignant neoplasm of other parts of uterus; F41.8 Other specified anxiety disorders; Z79.899 Other long term (current) drug therapy; K21.9 Gastro-esophageal reflux disease without esophagitis; Z90.49 Acquired absence of other specified parts of digestive tract; Z90.710 Acquired absence of both cervix and uterus
CPT/HCPCS: 74176; 80053; 81001; 83690; 85025; 96361; 96374; 96375; 99283; J2405

== ENCOUNTER 2023-08-31 15:37 | Emergency (ER) | payer MEDICAID, SELFPAY ==
[2023-08-31 15:42] VITALS: BP 103/60; PULSE 98; RESP 16; TEMP 36.5; O2SAT 94; BMI 28.2
[2023-08-31 15:46] VITALS: BP 103/60; PULSE 98; RESP 20; TEMP 36.5; O2SAT 96
--- NOTE | 2023-08-31 15:54 | US_ITS ---
EXAM: US ABDOMEN LIMITED, GALLBLADDER CLINICAL INDICATION: PAIN TECHNIQUE: Real-time ultrasound of the right upper quadrant with image documentation. COMPARISON: No relevant prior studies available. FINDINGS: LIVER: The liver measures 15.6 cm in length. GALLBLADDER: Gallbladder wall measures 3 mm. There is minimal echogenic material in the gallbladder which may represent sludge. No shadowing gallstone. No pericholecystic fluid. Negative sonographic Greenberg''s sign. COMMON BILE DUCT: Common bile duct measures 3 mm. The proximal common bile duct is within normal limits for the patient''s age. RIGHT KIDNEY: The right kidney measures 10.9 x 4.5 x 5.8 cm. US/Gallbladder IMPRESSION: Minimal gallbladder sludge. There is no evidence of cholelithiasis or cholecystitis. Electronically Signed: Rosas Donato MD at 17:34 EDT ,
--- NOTE | 2023-08-31 15:56 | EDS_ITS ---
HPI History of Present Illness Chief Complaint: Nausea/Vomiting Detail of Chief Complaint: Nausea and vomiting of right upper quadrant abdominal pain that awoke patie Informant: patient Onset/Context/Timing Onset: Hours (Started at 0200) Context: Sudden Onset Timing: Continuous Quality: Crampy pain Location: Right upper quadrant Current Severity: Moderate Maximum Severity: Severe Worsened by: Palpation Relieved by: Nothing Associated Symptoms Associated Symptoms: Nausea and vomiting Narrative Narrative: Patient is a 47-year-old woman with history of hyperlipidemia, lupus, urinary tract infection, stroke, seizure disorder, osteoarthritis and sludge in her gallbladder. She has not been eating well because she has a vascular lesion buccal side of her right upper lip. She also has oral lesions which may be cancerous. She is scheduled for biopsy next month. She has had decreased p.o. intake. She denies fever, chills night sweats. She denies headache, visual, ocular auditory symptoms. She denies chest discomfort, shortness of breath or difficulty breathing. She denied hematemesis. Denies black or maroon-colored stool. She denies urologic symptoms. She has not eaten anything since 0500. Prior similar symptoms: No Recent Illness/Hospitalization: No [facility] Medical History (Updated 08/31/23 @ 17:[address] Daniel Pena MD) GERD (gastroesophageal reflux disease) High cholesterol PTSD (post-traumatic stress disorder) History of stress test History of echocardiogram Cardiology follow-up encounter Chest pain Syncope Palpitations Hyperlipidemia Bradycardia Hematemesis of unknown cause Degenerative disc disease Superior glenoid labrum lesion of right shoulder Constipation Early satiety Rotator cuff injury Right shoulder pain Cough Nausea and vomiting Epigastric pain Flu vaccine need Lupus Debility Chronic lumbar radiculopathy Health care maintenance Hematemesis Vomiting Elevated antinuclear antibody (PAT) level Positive P-ANCA titer GI bleed Colon polyp Fatty liver Sludge in gallbladder Post-menopausal Anxiety Seizures Smoker Wheelchair dependent Wheel chair as ambulatory aid Foot pain, left Lower GI bleeding Dysphagia Elevated blood pressure reading Hypokalemia Abdominal pain UTI (urinary tract infection) Uterine cancer Cervical cancer Interstitial cystitis Acute cystitis Hematuria Flank pain Fibromyalgia Blurry vision, left eye Dizziness Headache Fall Postoperative pain Acute pain of left foot Postoperative wound infection Insect bite Cellulitis Incisional hernia Gastroesophageal reflux disease Urinary frequency Urge incontinence Urinary urgency Migraines Lamar's palsy Depression with anxiety Ulcer Lipoma Stroke Seizures Osteoarthritis Neuropathy Kidney stones Irritable bowel syndrome Hives Hearing problem Carpal tunnel syndrome Arthritis Seasonal allergies Home Medications ?Medication ?Instructions ?Recorded ?Last Taken ?Type topiramate 200 mg tablet 200 mg PO QHS headaches 08/15/18 Unknown History Handicap Placard #1 ea 05/03/20 Unknown Rx baclofen 10 mg tablet 10 mg PO TID 03/23/21 08/21/23 History walker (Ultra-Light Rollator misc) #1 ea 09/26/21 Unknown Rx quetiapine 300 mg tablet (Seroquel) 700 mg PO DAILY 02/22/22 Unknown History epinephrine 0.3 mg/0.3 mL 0.3 mg (0.3 mL) IM Q5-15M PRN 04/14/22 Unknown Rx injection, auto-injector (EpiPen anaphylaxis #2 ea 2-Raymond) walker (Ultra-Light Rollator misc) #1 ea 08/10/22 Unknown Rx hydroxychloroquine 200 mg tablet 200 mg PO BID 08/15/22 Unknown History levetiracetam 500 mg tablet 500 mg PO BID #180 tabs 09/26/22 08/21/23 Rx (Keppra) Handicap Placard #1 ea 03/09/23 Unknown Rx wheelchair #1 ea 03/09/23 Unknown Rx carbamazepine 200 mg tablet 200 mg PO DAILY seizures 04/17/23 08/21/23 History fremanezumab-vfrm 225 mg/1.5 mL 225 mg subcut QMONTH 04/17/23 Unknown History subcutaneous auto-injector (Ajovy) hydroxyzine pamoate 50 mg capsule 50 mg PO BID PRN anxiety 04/17/23 Unknown History nortriptyline 10 mg capsule 30 mg PO QHS 04/17/23 Unknown History ondansetron 4 mg disintegrating 4 mg PO Q8H PRN nausea and vomiting 04/17/23 Unknown History tablet prazosin 2 mg capsule 4 mg PO QHS 04/17/23 Unknown History sumatriptan succinate 100 mg tablet See Rx Instructions .Route 04/19/23 Unknown Rx .COMPLEX #14 tabs simvastatin 20 mg tablet 20 mg PO QPM #90 tabs 05/31/23 Unknown Rx folic acid 1 mg tablet 1 mg PO DAILY 06/08/23 Unknown History methotrexate sodium 2.5 mg tablet 20 mg PO TU 06/08/23 Unknown History quetiapine 400 mg tablet 400 mg PO DAILY 06/08/23 Unknown History ubrogepant 100 mg tablet (Ubrelvy) 100 mg PO DAILY 06/08/23 Unknown History pantoprazole 40 mg tablet,delayed 40 mg PO DAILY #90 tabs 06/29/23 08/21/23 Rx release promethazine 25 mg tablet See Rx Instructions .Route 07/17/23 Unknown Rx .COMPLEX #60 tabs scopolamine base 1 mg over 3 days 1 patch transdermal Q3D PRN nausea 07/17/23 Unknown Rx transdermal patch and vomiting #10 ea lubiprostone 8 mcg capsule 8 mcg PO DAILY #30 caps 08/10/23 Unknown Rx (Amitiza) metoclopramide HCl 5 mg tablet 5 mg PO Q6H #60 tabs 08/10/23 Unknown Rx (Reglan) ondansetron 4 mg disintegrating 4 mg PO Q8H PRN PRN Nausea #10 tabs 08/22/23 Unknown Rx tablet docusate sodium 100 mg capsule 100 mg PO BID #60 caps 08/24/23 Unknown Rx gabapentin 600 mg tablet 600 mg PO TID nerve pain #90 tabs 08/24/23 Unknown Rx Allergy/AdvReac Type Severity Reaction Status Date / Time venom-honey bee Allergy Severe severe Verified 08/31/23 15:42 venom-wasp Allergy Severe severe Verified 08/31/23 15:42 coconut Allergy Intermediate Hives Verified 08/31/23 15:42 doxycycline Allergy Intermediate Rash Verified 08/31/23 15:42 mushroom Allergy Intermediate Hives Verified 08/31/23 15:42 ciprofloxacin (From Cipro) Allergy Rash Verified 08/31/23 15:42 erythromycin base Allergy Anaphylaxis Verified 08/31/23 15:42 iodine Allergy Anaphylaxis Verified 08/31/23 15:42 latex Allergy Rash Verified 08/31/23 15:42 metronidazole (From Flagyl) Allergy Anaphylaxis Verified 08/31/23 15:42 naproxen (From Naprosyn) Allergy Anaphylaxis Verified 08/31/23 15:42 Penicillins Allergy Anaphylaxis Verified 08/31/23 15:42 shellfish derived Allergy Anaphylaxis Verified 08/31/23 15:42 lithium AdvReac Intermediate Mood Verified 08/31/23 15:42 changes adhesive AdvReac Mild BLISTERS Verified 08/31/23 15:42 sulfamethoxazole (From AdvReac Hives Verified 08/31/23 15:42 Bactrim) trimethoprim (From Bactrim) AdvReac Hives Verified 08/31/23 15:42 Family History Father Asthma Grandfather No problems noted. Grandmother Asthma Brother Lung cancer Diabetes Hypertension Grandfather Asthma Grandmother Asthma Hypertension Mother Diabetes Aunt Diabetes Son Seizures Asthma Surgical History History of repair of rotator cuff Hx of surgical procedure History of colonoscopy History of esophagogastroduodenoscopy (EGD) Hx of surgical procedure Status post left foot surgery S/P left knee surgery S/P umbilical hernia repair, follow-up exam History of bladder repair surgery History of spinal surgery History of appendectomy History of hysterectomy History of orthopedic surgery History of carpal tunnel surgery of right wrist Social History Smoking Status: Light Smoker (<10/day) alcohol intake: never substance use type: does not use caffeine: No what type of physical activity do you participate in: none ROS ROS ED Constitutional Constitutional ED: Denies chills, fever(s), subjective, sweats or weight loss Eyes Eyes: Denies blurry vision, change in vision or diplopia ENT ENT ED: Denies ear pain, rhinorrhea or sore throat Cardiovascular Cardiovascular: Denies chest pain or palpitations Respiratory/Chest Respiratory/Chest: Denies cough, dyspnea or dyspnea on exertion Gastrointestinal Gastrointestinal: Reports abdominal pain, nausea and vomiting; Denies constipation, diarrhea or melena Genitourinary Genitourinary ED: Denies dysuria, hematuria or urinary frequency Musculoskeletal Musculoskeletal: Denies arthralgias, back pain or myalgias Neurologic Neurologic: Reports weakness; Denies paresthesias Endocrine Endocrinology: Denies cold intolerance or heat intolerance Hematologic/Lymphatic Hematologic/Lymphatic: Reports systems reviewed and no addt'l complaints, except as documented EXAM Physical Exam Const Vital Signs: 08/31/23 15:42 08/31/23 15:46 08/31/23 16:46 Temperature 97.7 F L 97.7 F L 97.9 F Temperature Source Temporal Temporal Temporal Pulse Rate 98 98 89 Respiratory Rate 16 20 H 16 Blood Pressure 103/60 103/60 110/78 Blood Pressure Mean 74 74 88 Pulse Ox 94 96 97 Oxygen Delivery Method Room Air Room Air Room Air Positive well nourished, well developed and unkempt General Appearance ED: unkempt, well developed, NAD and pallor; Negative for cyanotic or diaphoretic HEENT Reports dry mucous membranes HEENT Narrative: Patient has a vascular lesion buccal side of the upper lip on the right. She also has 2 lesions 1 near the floor of the mouth and 1 the left lower side of the mandible buccal side. Patient is a dentulous. Mouth ED: Yes dry mucous membranes Mouth: dry mucous membranes Eyes PERRL and EOMs intact bilaterally General Eye ED: Negative for pale conjunctiva or scleral icterus Neck no lymphadenopathy, supple and no JVD Chest Wall inspection of chest normal and palpation of chest normal Resp normal respiratory effort and clear to auscultation bilaterally Cardio regular rate, regular rhythm, S1 normal heart sound, S2 normal heart sound and no murmurs GI normal to inspection, nondistended, normoactive bowel sounds, non-distended and no masses; Negative for non-tender or hepatosplenomegaly Auscultation: hypoactive bowel sounds Palpation: soft and tender RUQ and Greenberg's sign Back/Spine no CVA tenderness Extremity normal to inspection General Extremety ED: Negative for edema or tenderness General Extremity: Negative for edema Neuro oriented x3 and CN's II-XII intact bilaterally Sensorium / Orientation: alert Psych Appearance: unkempt Mood & Affect: depressed Skin no rashes or lesions noted, no wounds and No skin turgor normal General Skin Exam: pallor; Negative for jaundice MDM MDM MDM Narrative Medical decision making narrative: Patient does not appear well. Clinically she has biliary disease. Will obtain appropriate blood work determine there is any evidence of infection, elevated transaminases pancreatitis etc. Ultrasound of gallbladder was ordered since she has not had anything to eat or drink since 0500. History and physical is not consistent with cardiac presentation. History and physical not consistent with pneumothorax or pulmonary etiology. History & Record Review Additional record(s) reviewed:: Prior outpatient record (Patient had EGD performed by Dr. Diaz August 20. This revealed grade a esophagitis, gastritis and duodenitis. CT of the abdomen and pelvis revealed gallbladder sludge. There was no ultrasound performed apparently.), Prior ED visit (ER records were most recent admission for abdominal pain revealed a benign abdomen.) and Prior labs Lab Data Attestation: I reviewed the patient's lab results. Lab results narrative: CBC is remarkable for mild anemia with elevated indices. Comprehensive metabolic panel is unremarkable. Chloride slightly elevated 117. Total protein and albumin are low at 6.2 and 2.9 respectively. AST, ALT total bili and alkaline phosphatase are all normal. Labs: Laboratory Results - last 24 hr 08/31/23 16:02 WBC 4.9 RBC 3.01 L Hgb 10.4 L Hct 31.5 L MCV 104.7 H MCH 34.6 H MCHC 33.0 RDW Std Deviation 50.7 H RDW Coeff of Karina 13.4 Plt Count 164 MPV 10.9 Immature Gran % (Auto) 0.200 Neut % (Auto) 54.6 Lymph % (Auto) 37.6 Dewey % (Auto) 4.3 Eos % (Auto) 2.7 Baso % (Auto) 0.6 Absolute Neuts (auto) 2.7 Absolute Lymphs (auto) 1.83 Nucleated RBC % 0 Sodium 145 Potassium 3.8 Chloride 117 H Carbon Dioxide 22.0 Anion Gap 6 BUN 11 Creatinine 0.77 Estim Creat Clear Calc 100.42 Est GFR (MDRD) Af Amer 104 Est GFR (MDRD) Non-Af 86 BUN/Creatinine Ratio 14.3 Glucose 97 Calcium 8.0 L Total Bilirubin 0.20 AST 13 L ALT 14 Alkaline Phosphatase 94 Total Protein 6.2 L Albumin 2.9 L Globulin 3.3 Albumin/Globulin Ratio 0.9 Lipase 29 Radiography Diagnostic Testing: Clinical Impression(s) from Imaging Studies Gallbladder Ultrasound 08/31/23 15:54 IMPRESSION: Minimal gallbladder sludge. There is no evidence of cholelithiasis or cholecystitis. Electronically Signed: Rosas Donato MD at 17:34 EDT , Gallbladder images reviewed. Radiologist interpretation was read. Since laboratory studies are normal there is no thickening of the gallbladder wall or dilated common bile duct she will be discharged to home. Discharge Plan Triage Chief Complaint: Nausea/Vomiting Other Complaint: Abd Pain ED Provider: JeanDaniel Dx/Rx/DC Orders Clinical Impression: Sludge in gallbladder, Lupus, Hyperlipidemia, Intermittent right upper quadrant abdominal pain, Esophagitis Instructions: ED GERD (Adult) Prescriptions: No Action topiramate 200 mg tablet 200 mg PO QHS carbamazepine 200 mg tablet 200 mg PO DAILY Patient Comments: 1 Tab AM & 2 PM baclofen 10 mg tablet 10 mg PO TID quetiapine [Seroquel] 300 mg tablet 700 mg PO DAILY epinephrine [EpiPen 2-Raymond] 0.3 mg/0.3 mL auto-injector 0.3 mg IM Q5-15M PRN (Reason: anaphylaxis) Qty: 2 3RF Rx Instructions: do not exceed 3 doses per episode hydroxychloroquine 200 mg tablet 200 mg PO BID (DME) Handicap Placard See Rx Instructions .ROUTE .MEDSUPPLY Qty: 1 0RF Rx Instructions: As directed, length of time 3 years (DME) wheelchair See Rx Instructions .Route .MEDSUPPLY Qty: 1 0RF Rx Instructions: As directed methotrexate sodium 2.5 mg tablet 20 mg PO TU folic acid 1 mg tablet 1 mg PO DAILY quetiapine 400 mg tablet 400 mg PO DAILY Ubrelvy 100 mg tablet 100 mg PO DAILY Patient Comments: PER PT: CAN TAKE UP TO 2 IN A 24 HOUR PEROID, BUT NO MORE THEN 8 TABS MONTHLY ondansetron 4 mg tablet,disintegrating 4 mg PO Q8H PRN (Reason: nausea and vomiting) nortriptyline 10 mg capsule 30 mg PO QHS hydroxyzine pamoate 50 mg capsule 50 mg PO BID PRN (Reason: anxiety) prazosin 2 mg capsule 4 mg PO QHS Ajovy Autoinjector 225 mg/1.5 mL auto-injector 225 mg subcut QMONTH ondansetron 4 mg tablet,disintegrating 4 mg PO Q8H PRN PRN (Reason: Nausea) Qty: 10 0RF (DME) Handicap Placard See Rx Instructions .Route .MEDSUPPLY Qty: 1 0RF Rx Instructions: As directed, length of time 3 years (DME) Ultra-Light Rollator Misc See Rx Instructions .Route Qty: 1 0RF Rx Instructions: As directed (DME) Ultra-Light Rollator Misc See Rx Instructions .Route Qty: 1 0RF Rx Instructions: As directed levetiracetam [Keppra] 500 mg tablet 500 mg PO BID Qty: 180 0RF sumatriptan succinate 100 mg tablet See Rx Instructions .ROUTE .COMPLEX Qty: 14 3RF Dose Instruction: TAKE 1 TABLET BY MOUTH AT ONSET OF A MIGRAINE - NOT TO EXCEED MORE THAN 1 TABLET DAILY Rx Instructions: TAKE 1 TABLET BY MOUTH AT ONSET OF A MIGRAINE - NOT TO EXCEED MORE THAN 1 TABLET DAILY simvastatin 20 mg tablet 20 mg PO QPM Qty: 90 1RF pantoprazole 40 mg tablet,delayed release (DR/EC) 40 mg PO DAILY Qty: 90 1RF scopolamine base 1 mg over 3 days patch 3 day 1 patch transdermal Q3D PRN (Reason: nausea and vomiting) Qty: 10 5RF promethazine 25 mg tablet See Rx Instructions .ROUTE .COMPLEX Qty: 60 2RF Dose Instruction: TAKE 1 TABLET BY MOUTH TWICE A DAY NEEDED FOR NAUSEA OR VOMITING Rx Instructions: TAKE 1 TABLET BY MOUTH TWICE A DAY NEEDED FOR NAUSEA OR VOMITING metoclopramide HCl [Reglan] 5 mg tablet 5 mg PO Q6H Qty: 60 0RF lubiprostone [Amitiza] 8 mcg capsule 8 mcg PO DAILY Qty: 30 0RF gabapentin 600 mg tablet 600 mg PO TID Qty: 90 1RF docusate sodium 100 mg capsule 100 mg PO BID Qty: 60 0RF Primary Care Provider: Gayle Munoz Referrals: Gayle Munoz MD [Primary Care Provider] - 1 Week Activity Restrictions/Additional Instructions: 1. Do not eat anything that is greasy, fatty or contains butter or any dairy fats. Print Language: Norwegian Disposition Disposition: Home, Self Care
[2023-08-31] MEDS: Ondansetron 4 MG/2 ML Vial IV (16:01)
[2023-08-31] MEDS: Morphine 4 MG/ML Syringe IV (16:02)
[2023-08-31 16:19] LABS: Absolute Lymphocyte Count 1.83 X10^3/uL (0.83-4.51); Absolute Neutrophil Count 2.7 X10^3/uL (2.0-7.7); Basophil# 0.03 X10^3/uL; Basophil% 0.6 % (0-1); Eosinophil# 0.13 X10^3/uL; Eosinophils% 2.7 % (0-5); Hematocrit 31.5 % (37-47); Hemoglobin 10.4 g/dL (12.0-15.0); Lymphocyte # 1.83 X10^3/ul (0.83-4.51); Lymphocyte % 37.6 % (19-41); Mean Corpuscular Hgb 34.6 pg (27.0-32.0); Mean Corpuscular Volume 104.7 fL (81-99); Mean Platelet Vol. 10.9 fl (6.2-12.0); Monocyte# 0.21 X10^3/uL; Monocyte% 4.3 % (0-10); NRBC Flagged by Analyzer 0 % (0-5); Neutrophil # 2.66 X10^3/uL (2.7-7.7); Neutrophil % 54.6 % (47-70); Platelet Count 164 K/mm3 (150-450); RBC Distribution Width CV 13.4 % (11.6-14.6); RBC Distribution Width SD 50.7 fl (35.1-43.9); Red Blood Count 3.01 M/mm3 (4.2-5.4); White Blood Count 4.9 K/mm3 (4.4-11.0)
[2023-08-31 16:38] LABS: ALB/GLOB Ratio 0.9 RATIO (0.9-2.4); AST(SGOT) 13 U/L (15-37); Alanine Aminotransfer ALT/SGPT 14 U/L (13-56); Albumin, Serum 2.9 g/dL (3.2-5.0); Alkaline Phosphatase 94 U/L (45-117); Anion Gap 6 (5-15); BUN 11 mg/dL (7-18); BUN/Creat Ratio 14.3 RATIO (10-20); Chloride 117 mmol/L (98-107); Creatinine, Serum 0.77 mg/dL (0.55-1.02); EST Glomerular Filtration Rate 86 mL/min (>60); Est Glom Filt Rate - Afr Amer 104 mL/min (>60); Estimated Creatinine Clearance 100.42 ml/min; Globulin 3.3 g/dL (2.2-4.2); Glucose 97 mg/dL (74-106); Lipase 29 U/L (13-75); Potassium 3.8 mmol/L (3.5-5.1); Protein, Total 6.2 g/dL (6.4-8.2); Sodium Level 145 mmol/L (136-145)
[2023-08-31 16:45] VITALS: BP 84/47; PULSE 78; RESP 11; O2SAT 98
[2023-08-31 16:46] VITALS: BP 110/78; PULSE 89; RESP 16; TEMP 36.6; O2SAT 97
[2023-08-31 17:30] VITALS: BP 110/90; O2SAT 95
[2023-08-31 17:58] VITALS: BP 101/62; PULSE 81; RESP 18; TEMP 36.7; O2SAT 94
== END 2023-08-31 17:59 | disposition home or self-care (01) ==
PROVIDERS: Emergency Provider Emergency Medicine; PCP Internal Medicine; Visit Provider Emergency Medicine
DX: K83.8 Other specified diseases of biliary tract (principal); M32.9 Systemic lupus erythematosus, unspecified; G40.909 Epilepsy, unspecified, not intractable, without status epilepticus; K20.90 Esophagitis, unspecified without bleeding; E78.5 Hyperlipidemia, unspecified; F17.200 Nicotine dependence, unspecified, uncomplicated; Z79.899 Other long term (current) drug therapy; Z86.73 Personal history of transient ischemic attack (TIA), and cerebral infarction without residual deficits
CPT/HCPCS: 76705; 80053; 83690; 85025; 96374; 96375; 99284; J7030; A4216; J2405

== ENCOUNTER 2023-10-08 08:16 | Day surgery (SDC) | payer MEDICAID, SELFPAY ==
[2023-10-08] VITALS (9 sets, daily range): BP systolic 95–122; BP diastolic 64–84; PULSE 71–91; RESP 16–18; TEMP 36.1–36.9; O2SAT 96–100; BMI 29.4
--- NOTE | 2023-10-08 09:00 | PRE.ANES_ITS ---
ASA Classification* ASA Classification ASA Classification: 3 Assessment & Plan Anesthesia* Anesthesia Assessment Anesthesia Assessment: Discussed sedation and/or anesthesia options, risks, benefits, and alternatives with patient/parents/legal guardian/POA. Questions invited. The patient/parents/legal guardian/POA seems to understand and agrees to proceed with anesthesia plan. Reviewed the physical assessment, medical history, allergy history and patient home medications list prior to surgery/procedure/anesthetic and documented any changes. Performed airway and anesthesia risk assessments. Anesthesia Type Anesthesia Type: MAC (see written pre anesthesia record for complete assessment) Anesthesia Focused Assessment* Airway Assessment Mouth opens: >3 cm Mallampati Score: II Focused Labs Anesthesia Preop lab: CBC WBC 4.9 K/mm3 (4.4-11.0) 08/31/23 16:02 RBC 3.01 M/mm3 (4.2-5.4) L 08/31/23 16:02 Hgb 10.4 g/dL (12.0-15.0) L 08/31/23 16:02 Hct 31.5 % (37-47) L 08/31/23 16:02 Plt Count 164 K/mm3 (150-450) 08/31/23 16:02 CHEMISTRY Potassium 3.8 mmol/L (3.5-5.1) 08/31/23 16:02 Sodium 145 mmol/L (136-145) 08/31/23 16:02 BUN 11 mg/dL (7-18) 08/31/23 16:02 Creatinine 0.77 mg/dL (0.55-1.02) 08/31/23 16:02 Glucose 97 mg/dL (74-106) 08/31/23 16:02 TSH 0.72 uIU/mL (0.358-3.74) 03/09/23 10:47 COAG PT 12.7 SECONDS (11.7-14.9) 07/13/21 17:40 HCG, Quant 6 mIU/mL (1-3) H 02/02/22 17:44 Urine Test Negative Negative 12/07/22 15:45 Pre-Assessment Diagnosis/Proposed Procedure Planned Operative Procedure(s): SPINAL CORD STIMULATOR IMPLANT BATTERY REPLACEMENT AND LEAD REVISION Anesthesia History 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 When Was Last Pacemaker Check QUESTION #4 FULL TEXT: You/Your Family Experience fever (hyperthermia) with Anesthesia Last Oral Intake Last Oral intake: Last Oral Intake NPO since Meds taken in AM with sips of water? 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 - house piping inspector: PONV - house piping inspector Female Yes 09/18/23 09:03 HX of Motion Sickness Yes 09/18/23 09:03 HX of N/V After Surgery Yes 09/18/23 09:03 Non-Smoker No 09/18/23 09:03 Duration of Surgery greater Yes 09/18/23 09:03 than 60 minutes Number of Risk Factors 4 09/18/23 09:03 PONV Score Severe Risk 09/18/23 09:03 Height & Weight Height & Weight: Anesthesia: Height & Weight Height 5 ft 7 in 08/31/23 15:42 Respiratory Assessment Respiratory Assessment - house piping inspector: Respiratory Tract Infection Hx - house piping inspector Hx Respiratory Tract Infection No 09/18/23 09:03 STOP Sleep Apnea STOP Sleep Apnea - house piping inspector: STOP Sleep Apnea - house piping inspector Hx Hypertension No 09/18/23 09:03 Hx Sleep Apnea No 09/18/23 09:03 CPAP BIPAP Do you snore loudly (louder No 09/18/23 09:03 than talking or can be heard Do you often feel tired/ No 09/18/23 09:03 fatigued/ sleepy during daytime? Has anyone observed you stop No 09/18/23 09:03 breathing during sleep? STOP Results Negative 09/18/23 09:03 QUESTION #5 FULL TEXT : Do you snore loudly (louder than talking or can be heard through closed doors)? Tobacco Use History Tobacco Use History - house piping inspector: Tobacco Use History - house piping inspector Tobacco Use Smoking Status Light Smoker (<10/day) 09/18/23 09:03 Hx Tobacco Use No 09/18/23 09:03 Years Smoking Packs Smoked per Day Smoking Cessation Date was within the last 15 years Hx Smoking Cessation Date Hx Smoking Cessation No 09/18/23 09:03 Counseling Hematologic Medial History Hematologic Hx - house piping inspector: Hematologic Medical Hx - named account executive Hx of Blood Transfusion No 09/18/23 09:03 Hx of Transfusion in last 3 No 09/18/23 09:03 Months Date of Last Transfusion (if within last 3 months) Ever experience any problems No 09/18/23 09:03 with transfusion(s)? Specify any problems Hx of Preganancy in last 3 No 09/18/23 09:03 Months Nurse Filling Out Transfusion [email or web address] 09/18/23 09:03 & Questions: Date: 09/18/23 09/18/23 09:03 Time: 09:09/18/23 09:03 Patient unable to answer at this time (ie. confused, unrespo /Reproduction History /Reproductive History - house piping inspector: /Reproductive Hx- house piping inspector Hx Now Gestational Age (in weeks): EDC: Hx Hx Para Hx Section SAB No 09/18/23 09:03 Active Medications Active Medications: Current Medications Generic Name Dose Route Start Last Admin Trade Name Freq PRN Reason Stop Dose Admin Lactated Ringer's 1,000 mls @ 15 mls/hr 10/08/23 08:45 IV .Q48H LUKAS PFSH Medical History GERD (gastroesophageal reflux disease) High cholesterol PTSD (post-traumatic stress disorder) History of stress test History of echocardiogram Cardiology follow-up encounter Chest pain Syncope Palpitations Hyperlipidemia Bradycardia Hematemesis of unknown cause Degenerative disc disease Superior glenoid labrum lesion of right shoulder Constipation Early satiety Rotator cuff injury Right shoulder pain Cough Nausea and vomiting Epigastric pain Flu vaccine need Lupus Debility Chronic lumbar radiculopathy Health care maintenance Hematemesis Vomiting Elevated antinuclear antibody (PAT) level Positive P-ANCA titer GI bleed Colon polyp Fatty liver Sludge in gallbladder Post-menopausal Anxiety Seizures Smoker Wheelchair dependent Wheel chair as ambulatory aid Foot pain, left Lower GI bleeding Dysphagia Elevated blood pressure reading Hypokalemia Abdominal pain UTI (urinary tract infection) Uterine cancer Cervical cancer Interstitial cystitis Acute cystitis Hematuria Flank pain Fibromyalgia Blurry vision, left eye Dizziness Headache Fall Postoperative pain Acute pain of left foot Postoperative wound infection Insect bite Cellulitis Incisional hernia Gastroesophageal reflux disease Urinary frequency Urge incontinence Urinary urgency Migraines Lamar's palsy Depression with anxiety Ulcer Lipoma Stroke Seizures Osteoarthritis Neuropathy Kidney stones Irritable bowel syndrome Hives Hearing problem Carpal tunnel syndrome Arthritis Seasonal allergies Home Medications ?Medication ?Instructions ?Recorded ?Last Taken ?Type topiramate 200 mg tablet 200 mg PO QHS headaches 08/15/18 Unknown History Handicap Placard #1 ea 05/03/20 Unknown Rx baclofen 10 mg tablet 10 mg PO TID 03/23/21 08/21/23 History walker (Ultra-Light Rollator misc) #1 ea 09/26/21 Unknown Rx quetiapine 300 mg tablet (Seroquel) 300 mg PO DAILY 02/22/22 Unknown History epinephrine 0.3 mg/0.3 mL 0.3 mg (0.3 mL) IM Q5-15M PRN 04/14/22 Unknown Rx injection, auto-injector (EpiPen anaphylaxis #2 ea 2-Raymond) walker (Ultra-Light Rollator misc) #1 ea 08/10/22 Unknown Rx hydroxychloroquine 200 mg tablet 200 mg PO BID 08/15/22 Unknown History levetiracetam 500 mg tablet 500 mg PO BID #180 tabs 09/26/22 08/21/23 Rx (Keppra) Handicap Placard #1 ea 03/09/23 Unknown Rx wheelchair #1 ea 03/09/23 Unknown Rx carbamazepine 200 mg tablet 200 mg PO DAILY seizures 04/17/23 08/21/23 History fremanezumab-vfrm 225 mg/1.5 mL 225 mg subcut QMONTH 04/17/23 Unknown History subcutaneous auto-injector (Ajovy) nortriptyline 10 mg capsule 30 mg PO QHS 04/17/23 Unknown History ondansetron 4 mg disintegrating 4 mg PO Q8H PRN nausea and vomiting 04/17/23 Unknown History tablet prazosin 2 mg capsule 4 mg PO QHS 04/17/23 Unknown History simvastatin 20 mg tablet 20 mg PO QPM #90 tabs 05/31/23 Unknown Rx folic acid 1 mg tablet 1 mg PO DAILY 06/08/23 Unknown History methotrexate sodium 2.5 mg tablet 20 mg PO TU 06/08/23 Unknown History quetiapine 400 mg tablet 400 mg PO DAILY 06/08/23 Unknown History ubrogepant 100 mg tablet (Ubrelvy) 100 mg PO DAILY 06/08/23 Unknown History pantoprazole 40 mg tablet,delayed 40 mg PO DAILY #90 tabs 06/29/23 08/21/23 Rx release scopolamine base 1 mg over 3 days 1 patch transdermal Q3D PRN nausea 07/17/23 Unknown Rx transdermal patch and vomiting #10 ea lubiprostone 8 mcg capsule 8 mcg PO DAILY #30 caps 08/10/23 Unknown Rx (Amitiza) ondansetron 4 mg disintegrating 4 mg PO Q8H PRN PRN Nausea #10 tabs 08/22/23 Unknown Rx tablet gabapentin 600 mg tablet 600 mg PO TID nerve pain #90 tabs 08/24/23 Unknown Rx COVID-19 antigen test (QuickVue 08/31/23 Unknown History At-Home COVID-19 Test kit) buspirone 10 mg tablet 10 mg PO BID 08/31/23 Unknown History cholecalciferol (vitamin D3) 1,250 1,250 mcg PO QWEEK 08/31/23 Unknown History mcg (50,000 unit) capsule docusate sodium 100 mg capsule 100 mg PO BID #60 caps 09/19/23 Unknown Rx promethazine 25 mg tablet See Rx Instructions .Route 09/26/23 Unknown Rx .COMPLEX #60 tabs Allergy/AdvReac Type Severity Reaction Status Date / Time venom-honey bee Allergy Severe severe Verified 09/18/23 08:57 venom-wasp Allergy Severe severe Verified 09/18/23 08:57 coconut Allergy Intermediate Hives Verified 09/18/23 08:57 doxycycline Allergy Intermediate Rash Verified 09/18/23 08:57 mushroom Allergy Intermediate Hives Verified 09/18/23 08:57 ciprofloxacin (From Cipro) Allergy Rash Verified 09/18/23 08:57 erythromycin base Allergy Anaphylaxis Verified 09/18/23 08:57 iodine Allergy Anaphylaxis Verified 09/18/23 08:57 latex Allergy Rash Verified 09/18/23 08:57 metronidazole (From Flagyl) Allergy Anaphylaxis Verified 09/18/23 08:57 naproxen (From Naprosyn) Allergy Anaphylaxis Verified 09/18/23 08:57 Penicillins Allergy Anaphylaxis Verified 09/18/23 08:57 shellfish derived Allergy Anaphylaxis Verified 09/18/23 08:57 lithium AdvReac Intermediate Mood Verified 09/18/23 08:57 changes adhesive AdvReac Mild BLISTERS Verified 09/18/23 08:57 sulfamethoxazole (From AdvReac Hives Verified 09/18/23 08:57 Bactrim) trimethoprim (From Bactrim) AdvReac Hives Verified 09/18/23 08:57 Family History Father Asthma Grandfather No problems noted. Grandmother Asthma Brother Lung cancer Diabetes Hypertension Grandfather Asthma Grandmother Asthma Hypertension Mother Diabetes Aunt Diabetes Son Seizures Asthma Surgical History History of repair of rotator cuff Hx of surgical procedure History of colonoscopy History of esophagogastroduodenoscopy (EGD) Hx of surgical procedure Status post left foot surgery S/P left knee surgery S/P umbilical hernia repair, follow-up exam History of bladder repair surgery History of spinal surgery History of appendectomy History of hysterectomy History of orthopedic surgery History of carpal tunnel surgery of right wrist Social History Smoking Status: Light Smoker (<10/day) alcohol intake: never substance use type: does not use caffeine: No what type of physical activity do you participate in: none Review of Systems (Anesthesia) ROS Narrative System reviewed and no additional complaints, except as documented.
[2023-10-08] MEDS: Lactated Ringers 1,000 ML 15 ML IV (09:22)
--- NOTE | 2023-10-08 10:46 | RAD_ITS ---
PROCEDURE: Fluoroscopy for spinal cord stimulator implantation DATE OF EXAMINATION: 10/08/2023 INDICATION: Female, 48 years old. Intractable back pain PHYSICIAN: Procedure performed by Dr. Vidales FLUOROSCOPY TIME (if supplied): (67.1) seconds, dosage of 19.87 mGy, 2 fluoroscopic images obtained RADIATION DOSAGE (If Supplied By Facility): CTDIvol = ( ) mGy, DLP = ( ) mGycm CONSENT: The risks, benefits and alternatives to the procedure were explained to the patient, and the patient agreed to the procedure and signed the consent. 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 PROCEDURE/TECHNIQUE: (All elements of maximal sterile barrier technique followed, including US elements as applicable) The risks, benefits, and alternatives to the procedure were explained to patient, and the patient agreed to the procedure and signed a consent form for the procedure. A timeout was performed to confirm the patient''s identity, the type of procedure, to be performed and the site of entry. Fluoroscopy was provided for Dr. Vidales to perform insertion of a spinal cord implant device. Leads are seen posterior to the lower thoracic spine on the AP film. No complications noted RAD/Lumbar Spine 2 or 3 Views IMPRESSION: Fluoroscopy provided for spinal cord implantation device performed by Dr. Vidales Electronically Signed: Alexander Myers MD at 12:12 EDT ,
[2023-10-08] MEDS: Clindamycin 900 MG/50 ML BAG 75 MG IV (10:47)
[2023-10-08] MEDS: Lidocaine 2% (20 ml mdv) 20 ML Vial (11:30)
--- NOTE | 2023-10-08 11:50 | OP.PCM_ITS ---
Report of Operation Date of Procedure: 10/08/23 Description of Surgical Findings:: Pre-Operative Diagnosis: End of life of spinal cord stimulator battery, malfunction of the spinal cord stimulator lead lumbosacral radiculopathy, lumbosacral degenerative disc disease, lumbosacral spinal stenosis Post-Operative Diagnosis: End of life of spinal cord stimulator battery, malfunction of the spinal cord stimulator lead. Lumbosacral radiculopathy, lumbosacral degenerative disc disease, lumbosacral spinal stenosis Surgery/Procedure Performed:: 1. Spinal cord stimulator thoracolumbar leads placement x1 #2 spinal cord stimulator [employer] wavewriter alpha pulse generator placement #3 spinal cord stimulator old generator removal revision of spinal cord stimulator generator, removal of a spinal cord stimulator lead, fluoroscopic guidance for spinal cord stimulator implant ANESTHESIA: MAC COMPLICATIONS: None BLOOD LOSS: Minimal Implanted device: [employer] spinal cord stimulator lead serial #[id number], model SC?221 8?5 0lead [employer] spinal cord stimulator generator waiver appeals writer alpha implantable pulse generator serial number [id number] PROCEDURE IN DETAIL: History and physical today was reviewed. Risks and benefits of procedure explained. The patient understood, agreed to procedure, informed consent was obtained. IV inserted per routine protocol. The patient was taken to the operating room, placed in the prone position with a pillow positioned underneath the abdomen. 900 mg of clindamycin IV piggyback was infused per anesthesia. The lower back and right gluteal area was prepped and draped in a sterile fashion using iodine x3 and Ioban sheet was placed. The C-arm was brought in position for AP view at the L2-3 vertebral bodies under direct visualization fluoroscopy on a true AP view the L2-3 interlaminar space was identified skin and subcutaneous tissue and size approximately 10 cc of a mix of 2% lidocaine and 0.25% Marcaine using a 25-gauge regular needle followed by a 25-gauge 3-1/2 inch spinal needle towards the interlaminar space at L2-3, the right gluteal region area was also anesthetized with the above mixture a total of 10 cc , using an 11-gauge blade a skin and subcutaneous tissue where then taken down to the skin and subcutaneous tissue until the anchor of the spinal cord stimulator lead was reached dissection of the anchor and leads were then taken place using Bovie as well as scissors the spinal cord stimulator generator site was also incised using an 11-gauge blade taken the skin and subcutaneous t issue down to the pouch of the spinal cord stimulator once the spinal cord stimulator area was found the anchors were then cut primarily using Metzen[employer] hemostasis was maintained with Bovie as well as pressure the spinal cord stimulator was then removed outside of its pouch the upper lead connection was then removed using the screwdriver provided by [employer] the lead was then removed via the previous tunnel and the previous incision at the mid back to where the anchor was placed once the anchor was dissected the spinal cord stimulator lead was then removed under direct visualization with fluoroscopy , using a 14-gauge 3-1/2 inch Touhy needle provided by the [employer] kit the needle was passed through the skin towards the interlaminar space at L2-3 and a paramedian approach the needle was then advanced under direct visualization fluoroscopy towards the interlaminar space at L2-3 [id number] technique was then carried to air towards the interlaminar space at L2-3 once the tip of the needle was in the epidural space and loss of resistance was encountered to air and after confirmation of AP as well as oblique view of the spinal cord stimulator lead was then advanced under direct visualization fluoroscopy to be at the tip of the lead at T8 and the bottom of the lead around mid T10 after confirmation of AP as well as lateral view to confirm correct placement of the lead in the posterior compartment of the epidural space, the leads were were then connected to the external neurostimulator and patient was then awakened to confirm satisfactory coverage of the painful area once satisfactory coverage was then achieved the stylette of the needle was then removed using [employer] anchor at the anchor was then placed on top of the lead and secured using a 2-0 silk to the fascia and the bitewing anchor a the leads were then tunneled via a tunneler provided by the [employer] kit towards the previously incised spinal cord stimulator battery at the right gluteal region skin and subcutaneous tissue were anesthetized with approximately 10 cc of a mix of 2% lidocaine and 0.25% Marcaine using a 25 gauge regular needle, skin and subcutaneous tissue was then taken down with the 11-gauge blade hemostasis was maintained with Bovie and direct pressure the incision was then taken down to the fascia and the battery was then secured with the 2-0 silk sutures that were the spinal cord stimulator leads the upper lead was then marked the new until spinal cord stimulator battery was then provided Via [employer] kit the battery was then vidal ttached of the spinal cord stimulator make ensure that the top lead is attached to the top position from 0-7 electrodes and the bottom from 8-15 electrodes once impedance was then checked to be in the proper average number the battery was then inserted into the pocket and impedance with when checked again the pocket was then inspected to confirm hemostasis in place, the battery was then secured to the fascia using a 2-0 silk to the upper eyes of the battery confirming an upward writing of the battery facing posterior, once complete confirmation the battery was then placed in the position and the the mid paramedian and the gluteal incisions were then closed primarily through a 0 Vicryl in an interrupted manner, followed by 3-0 Vicryl in a running fashion followed by a 4- 0 Monocryl to the skin, hemostasis was then maintained during the procedure the skin was then covered with a Steri-Strips and bacitracin patient was then returned into the supine position in a stable condition and returned to recovery in a stable condition patient experienced no signs or symptoms of intrathecal or intravascular injection patient experienced no paresthesia the procedure was completed without any apparent difficulty any complication the patient appeared to tolerate well, motor as well as sensory function was unchanged from prior to the procedure ESTIMATED BLOOD LOSS: Minimal less than 25 mL ASSESSMENT AND PLAN: This is a 48-year-old female with End of life of spinal cord stimulator battery, malfunction of the spinal cord stimulator lead ,lumbosacral radiculopathy lumbosacral degenerative disc disease lumbosacral spinal stenosis status post, Spinal cord stimulator thoracolumbar leads placement x1 #2 spinal cord stimulator [employer] Wave[employer] alpha pulse generator placement #3 spinal cord stimulator old generator removal revision of spinal cord stimulator generator, removal of a spinal cord stimulator lead, fluoroscopic guidance for spinal cord stimulator implant, patient will continue her current medications a prescription was provided to the patient Keflex 500 mg 1 p.o. every 8 hours for 7 days, [place] 5-325 mg 1 p.o. every 4-6 hours as needed for acute postoperative pain dispense 20, postop instruction were given in writing to the patient and her daughter other as well as verbally and in writing, patient will follow approximately 1 week for reevaluation.
[2023-10-08] MEDS: Bacitracin 500 UNITS/GM PACKET (11:59)
--- NOTE | 2023-10-08 12:11 | PCM.POST.ANE ---
Anesthesia: Postop Eval I Current Vital Signs Temperature: 98.1 F Pulse Rate: 71 Blood Pressure: 95/84 Respiratory Rate: 16 Pulse Ox: 96 Oxygen Delivery Method: Room Air Assessment Airway patent: Yes Spontaneous unlabored respirations: Yes Mental status: Awake and Calm nausea: No Vomiting: No Anesthesia Complication: No Fluid Hydration Crystalloid volume administer (ml): 400 Total IV fluid infused: 400 Progress Note Anesthesia document: Postop Eval 1 completed: Yes
--- NOTE | 2023-10-08 12:42 | PCM.POSTANE2 ---
Anesthesia Postop Eval I Sum Postop Eval Completion status Anesthesia document: Postop Eval 1 completed: Yes Anesthesia Postop Eval I Summary Anesthesia Postop Eval I Summary: Anesthesia Postop Eval I: Assessment Summary Airway patent Yes 10/08/23 12:16 Spontaneous unlabored Yes 10/08/23 12:16 respirations Mental status Awake,Calm 10/08/23 12:16 nausea No 10/08/23 12:16 Vomiting No 10/08/23 12:16 Anesthesia Postop Eval I: Fluid Summary Crystalloid volume administer 400 10/08/23 12:16 (ml) Colloids volume administered ( ml) Blood Product volume administered (ml) Total IV fluid infused 400 10/08/23 12:16 Anesthesia Postop Eval I: Summary Notes Anesthesia Complication No 10/08/23 12:16 Anesthesia Complication Comment: Post-operative progress note Anesthesia: Postop Eval II Evaluation Mental status: Awake Pain Level: 3 nausea: No Vomiting: No Complications Anesthesia Complication: No
== END 2023-10-08 13:52 | disposition home or self-care (01) ==
LOC: SDC 08:18 → AC 08:33
PROVIDERS: PCP Internal Medicine; Referring Provider Anesthesiology Pain Medicine; Visit Provider Anesthesiology Pain Medicine
PROC: (CPT 63685; principal; 2023-10-08 10:15)
DX: Z45.42 Encounter for adjustment and management of neurostimulator (principal); T85.112A Breakdown (mechanical) of implanted electronic neurostimulator of spinal cord electrode (lead), initial encounter; M51.17 Intervertebral disc disorders with radiculopathy, lumbosacral region; M48.07 Spinal stenosis, lumbosacral region; F17.200 Nicotine dependence, unspecified, uncomplicated; E78.00 Pure hypercholesterolemia, unspecified; K21.9 Gastro-esophageal reflux disease without esophagitis; F41.9 Anxiety disorder, unspecified; Z79.899 Other long term (current) drug therapy; Z86.73 Personal history of transient ischemic attack (TIA), and cerebral infarction without residual deficits; X58.XXXA Exposure to other specified factors, initial encounter
CPT/HCPCS: 63685; 63663; 00300; 72100; 76000; J7120; J2405

== ENCOUNTER 2023-11-29 16:29 | Emergency (ER) | payer MEDICAID, SELFPAY ==
[2023-11-29 16:30] VITALS: BP 132/75; PULSE 101; RESP 18; TEMP 36.2; O2SAT 97
[2023-11-29 16:57] LABS: Absolute Lymphocyte Count 2.14 X10^3/uL (0.83-4.51); Absolute Neutrophil Count 3.4 X10^3/uL (2.0-7.7); Basophil# 0.03 X10^3/uL; Basophil% 0.5 % (0-1); Eosinophil# 0.09 X10^3/uL; Eosinophils% 1.5 % (0-5); Hematocrit 35.3 % (37-47); Hemoglobin 11.9 g/dL (12.0-15.0); Lymphocyte # 2.14 X10^3/ul (0.83-4.51); Lymphocyte % 36.6 % (19-41); Mean Corp Hgb Conc 33.7 g/dL (32-36); Mean Corpuscular Hgb 35.1 pg (27.0-32.0); Mean Corpuscular Volume 104.1 fL (81-99); Mean Platelet Vol. 11.2 fl (6.2-12.0); Monocyte# 0.15 X10^3/uL; Monocyte% 2.6 % (0-10); NRBC Flagged by Analyzer 0 % (0-5); Neutrophil # 3.42 X10^3/uL (2.7-7.7); Neutrophil % 58.6 % (47-70); Platelet Count 184 K/mm3 (150-450); RBC Distribution Width CV 13.6 % (11.6-14.6); RBC Distribution Width SD 52.2 fl (35.1-43.9); Red Blood Count 3.39 M/mm3 (4.2-5.4); White Blood Count 5.8 K/mm3 (4.4-11.0)
[2023-11-29 17:07] LABS: ALB/GLOB Ratio 0.9 RATIO (0.9-2.4); AST(SGOT) 18 U/L (15-37); Alanine Aminotransfer ALT/SGPT 15 U/L (13-56); Albumin, Serum 3.5 g/dL (3.2-5.0); Alkaline Phosphatase 126 U/L (45-117); Anion Gap 7 (5-15); BUN 14 mg/dL (7-18); BUN/Creat Ratio 17.5 RATIO (10-20); Calcium,Total 8.6 mg/dL (8.5-10.1); Chloride 108 mmol/L (98-107); EST Glomerular Filtration Rate 82 mL/min (>60); Est Glom Filt Rate - Afr Amer 99 mL/min (>60); Globulin 4.1 g/dL (2.2-4.2); Glucose 103 mg/dL (74-106); Potassium 3.6 mmol/L (3.5-5.1); Protein, Total 7.6 g/dL (6.4-8.2); Sodium Level 139 mmol/L (136-145)
[2023-11-29 17:12] LABS: Bacteria 0 SEEN /hpf (None Seen); Mucous, Urine 0 SEEN /hpf (<or=2+); Squamous Epithelial Cells - UA 0 SEEN /hpf (5-10)
[2023-11-29 17:16] LABS: Color, Urine Yellow (Yellow); Glucose, Dipstick Normal (Normal); Ketone-Dipstick Negative (Negative); Leukocyte Esterase-Dipstick 25 /ul (Negative); Nitrite-Dipstick Negative (Negative); Occult Blood-Urine Negative /ul (Negative); Protein-Dipstick 30 mg/dl (Negative); Urine Bilirubin Dipstick Negative (Negative); Urine Clarity Clear (Clear); Urine Urobilinogen Normal (Normal)
[2023-11-29 17:26] LABS: Red Blood Cells-Urine 0-5 SEEN /hpf (0-5); White Blood Cells 0-5 SEEN /hpf (0-5)
[2023-11-29 17:33] VITALS: BMI 27.7
[2023-11-29 18:00] VITALS: BP 112/64; PULSE 72; RESP 16; O2SAT 98
--- NOTE | 2023-11-29 18:03 | US_ITS ---
INDICATION: RUQ pain EXAMINATION: US Abdomen RUQ (limited) TECHNIQUE: Hein-scale and color Doppler imaging was performed of the right upper abdominal quadrant. COMPARISON: None. Findings: The liver is homogenous and normal in echogenicity and echotexture. There is no evidence of contour nodularity. No focal hepatic mass is identified. The main portal vein is normal in size and patent demonstrating hepatopetal flow. The gallbladder is unremarkable without evidence of stones, wall thickening or pericholecystic fluid. Sonographic Greenberg''s tenderness is not appreciated. There is no evidence of intrahepatic biliary ductal dilatation. The CBD is nondilated measuring 2 mm at the level of the laureano hepatis. The visualized portions of the pancreas are unremarkable without evidence of focal or diffuse enlargement. Specifically, the tail is obscured by overlying bowel gas. Right kidney measures 11.2 cm in length. It is normal in echogenicity. No focal renal lesion is identified. There is no evidence of hydronephrosis. US/Abdomen Limited IMPRESSION: Normal right upper quadrant ultrasound. Electronically Signed: Janes Joseph MD at 19:03 EDT ,
[2023-11-29] MEDS: 0.9% Normal Saline (1000mL) 1,000 ML 999 ML IV (18:10)
[2023-11-29] MEDS: Ondansetron 4 MG/2 ML Vial IV ×2 (18:11→22:46)
[2023-11-29] MEDS: Morphine 4 MG/ML Syringe IV ×2 (18:11→20:57)
[2023-11-29 18:44] LABS: Lipase 26 U/L (13-75)
[2023-11-29 20:00] VITALS: BP 123/69; PULSE 100; RESP 16; O2SAT 99
--- NOTE | 2023-11-29 20:19 | CT_ITS ---
INDICATION: epigastric pain EXAMINATION: CT Abdomen And Pelvis W/ Contrast Injection TECHNIQUE: Helically acquired images were obtained of the abdomen and pelvis after IV contrast. A radiation dose optimization technique was used for this scan. IV Contrast dosage and agent: IV 100mL [id number] Oral contrast: None. COMPARISON: None. FINDINGS: Visualized lung bases: Unremarkable Liver: Unremarkable Gallbladder: Unremarkable Spleen: Unremarkable Pancreas: Unremarkable Adrenal Glands: Unremarkable Kidneys: Unremarkable Vasculature: Mild scattered aortoiliac atherosclerotic calcifications. GI Tract: Unremarkable Lymphadenopathy: None Peritoneum: 2.2 cm soft tissue masslike lesion in the left mid mesentery with surrounding fat stranding (derik mesentery). Bladder: Unremarkable Reproductive organs: Unremarkable Bones/Soft tissues: There are diffuse degenerative changes of the spine. Bladder stimulator in the right lower back. CT/Abdomen/Pelvis W IV Cont ONLY IMPRESSION: Findings most consistent with mesenteric panniculitis. Electronically Signed: Janes Joseph MD at 22:21 EDT ,
[2023-11-29] MEDS: MethylPREDNISolone 125 MG/2 ML Vial IV (20:29)
[2023-11-29] MEDS: DiphenhydrAMINE 50 MG/ML Syringe 25 MG IV (20:29)
[2023-11-29 22:00] VITALS: BP 104/66; PULSE 67; RESP 15; O2SAT 99
--- NOTE | 2023-11-29 22:00 | EX.ED.DYSGE1 ---
HPI History of Present Illness Chief Complaint: Abd Pain Narrative Narrative: Patient is a 48-year-old female with a past medical history of GERD, hypercholesterolemia, PTSD, lupus, seizures, IBS who presents to the emergency department chief complaint abdominal pain. Patient states that for the past several days she has had abdominal pain that has progressively worsened prompting her to come here for the valuation management. Patient rates her pain a 8 out of 10 on exam. Patient states that she has had nausea vomiting associated with this abdominal pain now. Patient denies any recent sick contacts. [facility] Medical History Screening for thyroid disorder Galactorrhea Blurry vision GERD (gastroesophageal reflux disease) High cholesterol PTSD (post-traumatic stress disorder) History of stress test History of echocardiogram Cardiology follow-up encounter Chest pain Syncope Palpitations Hyperlipidemia Bradycardia Hematemesis of unknown cause Degenerative disc disease Superior glenoid labrum lesion of right shoulder Constipation Early satiety Rotator cuff injury Right shoulder pain Cough Nausea and vomiting Epigastric pain Flu vaccine need Lupus Debility Chronic lumbar radiculopathy Health care maintenance Hematemesis Vomiting Elevated antinuclear antibody (PAT) level Positive P-ANCA titer GI bleed Colon polyp Fatty liver Sludge in gallbladder Post-menopausal Anxiety Seizures Smoker Wheelchair dependent Wheel chair as ambulatory aid Foot pain, left Lower GI bleeding Dysphagia Elevated blood pressure reading Hypokalemia Abdominal pain UTI (urinary tract infection) Uterine cancer Cervical cancer Interstitial cystitis Acute cystitis Hematuria Flank pain Fibromyalgia Blurry vision, left eye Dizziness Headache Fall Postoperative pain Acute pain of left foot Postoperative wound infection Insect bite Cellulitis Incisional hernia Gastroesophageal reflux disease Urinary frequency Urge incontinence Urinary urgency Migraines Lamar's palsy Depression with anxiety Ulcer Lipoma Stroke Seizures Osteoarthritis Neuropathy Kidney stones Irritable bowel syndrome Hives Hearing problem Carpal tunnel syndrome Arthritis Seasonal allergies Home Medications ?Medication ?Instructions ?Recorded ?Last Taken ?Type topiramate 200 mg tablet 200 mg PO QHS headaches 08/15/18 Unknown History Handicap Placard #1 ea 05/03/20 Unknown Rx baclofen 10 mg tablet 10 mg PO TID 03/23/21 08/21/23 History walker (Ultra-Light Rollator misc) #1 ea 09/26/21 Unknown Rx quetiapine 300 mg tablet (Seroquel) 300 mg PO DAILY 02/22/22 Unknown History epinephrine 0.3 mg/0.3 mL 0.3 mg (0.3 mL) IM Q5-15M PRN 04/14/22 Unknown Rx injection, auto-injector (EpiPen anaphylaxis #2 ea 2-Raymond) walker (Ultra-Light Rollator misc) #1 ea 08/10/22 Unknown Rx hydroxychloroquine 200 mg tablet 200 mg PO BID 08/15/22 Unknown History levetiracetam 500 mg tablet 500 mg PO BID #180 tabs 09/26/22 08/21/23 Rx (Keppra) Handicap Placard #1 ea 03/09/23 Unknown Rx wheelchair #1 ea 03/09/23 Unknown Rx carbamazepine 200 mg tablet 200 mg PO DAILY seizures 04/17/23 08/21/23 History fremanezumab-vfrm 225 mg/1.5 mL 225 mg subcut QMONTH 04/17/23 Unknown History subcutaneous auto-injector (Ajovy) nortriptyline 10 mg capsule 30 mg PO QHS 04/17/23 Unknown History ondansetron 4 mg disintegrating 4 mg PO Q8H PRN nausea and vomiting 04/17/23 Unknown History tablet prazosin 2 mg capsule 4 mg PO QHS 04/17/23 Unknown History folic acid 1 mg tablet 1 mg PO DAILY 06/08/23 Unknown History methotrexate sodium 2.5 mg tablet 20 mg PO TU 06/08/23 Unknown History quetiapine 400 mg tablet 400 mg PO DAILY 06/08/23 Unknown History ubrogepant 100 mg tablet (Ubrelvy) 100 mg PO DAILY 06/08/23 Unknown History pantoprazole 40 mg tablet,delayed 40 mg PO DAILY #90 tabs 06/29/23 08/21/23 Rx release scopolamine base 1 mg over 3 days 1 patch transdermal Q3D PRN nausea 07/17/23 Unknown Rx transdermal patch and vomiting #10 ea buspirone 10 mg tablet 10 mg PO BID 08/31/23 Unknown History cholecalciferol (vitamin D3) 1,250 1,250 mcg PO QWEEK 08/31/23 Unknown History mcg (50,000 unit) capsule docusate sodium 100 mg capsule 100 mg PO BID #60 caps 09/19/23 Unknown Rx gabapentin 600 mg tablet 600 mg PO TID nerve pain #90 tabs 11/14/23 Unknown Rx simvastatin 20 mg tablet 20 mg PO QPM #90 tabs 11/14/23 Unknown Rx ondansetron 4 mg disintegrating 4 mg PO Q6H PRN nausea and 11/29/23 Unknown Rx tablet vomiting #14 tabs Allergy/AdvReac Type Severity Reaction Status Date / Time venom-honey bee Allergy Severe severe Verified 11/29/23 16:30 venom-wasp Allergy Severe severe Verified 11/29/23 16:30 coconut Allergy Intermediate Hives Verified 11/29/23 16:30 doxycycline Allergy Intermediate Rash Verified 11/29/23 16:30 mushroom Allergy Intermediate Hives Verified 11/29/23 16:30 ciprofloxacin (From Cipro) Allergy Rash Verified 11/29/23 16:30 erythromycin base Allergy Anaphylaxis Verified 11/29/23 16:30 iodine Allergy Anaphylaxis Verified 11/29/23 16:30 latex Allergy Rash Verified 11/29/23 16:30 metronidazole (From Flagyl) Allergy Anaphylaxis Verified 11/29/23 16:30 naproxen (From Naprosyn) Allergy Anaphylaxis Verified 11/29/23 16:30 Penicillins Allergy Anaphylaxis Verified 11/29/23 16:30 shellfish derived Allergy Anaphylaxis Verified 11/29/23 16:30 lithium AdvReac Intermediate Mood Verified 11/29/23 16:30 changes adhesive AdvReac Mild BLISTERS Verified 11/29/23 16:30 sulfamethoxazole (From AdvReac Hives Verified 11/29/23 16:30 Bactrim) trimethoprim (From Bactrim) AdvReac Hives Verified 11/29/23 16:30 Family History Father Asthma Grandfather No problems noted. Grandmother Asthma Brother Lung cancer Diabetes Hypertension Grandfather Asthma Grandmother Asthma Hypertension Mother Diabetes Aunt Diabetes Son Seizures Asthma Surgical History History of repair of rotator cuff Hx of surgical procedure History of colonoscopy History of esophagogastroduodenoscopy (EGD) Hx of surgical procedure Status post left foot surgery S/P left knee surgery S/P umbilical hernia repair, follow-up exam History of bladder repair surgery History of spinal surgery History of appendectomy History of hysterectomy History of orthopedic surgery History of carpal tunnel surgery of right wrist Social History Smoking Status: Light Smoker (<10/day) alcohol intake: never substance use type: does not use caffeine: No what type of physical activity do you participate in: none ROS ROS ED ROS Narrative Constitutional: Denies any fevers, chills, headaches, lightness, dizziness Eyes: Denies change in vision double vision blurry vision Cardiovascular: Denies chest pain or palpitations Respiratory: Denies coughing wheezing shortness of breath Abdomen: Complains of abdominal pain as above as well as nausea vomiting denies diarrhea : Denies any urinary symptoms Neurological: Denies numbness, weakness, tingling Musculoskeletal: Denies back pain Skin: Patient states that she has red dots all over her abdomen which have been there in the past EXAM Physical Exam Narrative Exam Narrative: General: Patient was lying in bed rest comfortably did appear to be uncomfortable secondary to abdominal pain Head: Atraumatic, normocephalic Eyes: PERRL bilaterally, EOMI bilateral, no conjunctival injection noted Neck: Soft, supple, trachea midline Cardiovascular: Regular rate and rhythm no murmurs gallops rubs noted Respiratory: Clear to auscultation bilaterally no rales rhonchi wheeze noted Abdomen: Soft, nondistended, tenderness palpation the right upper quadrant and epigastric region no rebound or guarding on exam, bowel sounds present x 4, Extremities: +5/5 strength noted in the bilateral upper and lower extremities, no pedal edema on exam Neurological: Patient is following commands and that she is at [facility] the year is 2023 Skin: Warm, dry, intact. Patient has small blanching red dots across her abdomen and her back no petechia no purpura no sloughing of the skin noted Const Vital Signs: 11/29/23 16:30 11/29/23 18:00 11/29/23 20:00 Temperature 97.2 F L Temperature Source Temporal Pulse Rate 101 H 72 100 Respiratory Rate 18 16 16 Blood Pressure 132/75 H 112/64 123/69 H Blood Pressure Mean 94 80 87 Pulse Ox 97 98 99 Oxygen Delivery Method Room Air Room Air Room Air 11/29/23 22:00 Temperature Temperature Source Pulse Rate 67 Respiratory Rate 15 Blood Pressure 104/66 Blood Pressure Mean 78 Pulse Ox 99 Oxygen Delivery Method Room Air MDM MDM MDM Narrative Medical decision making narrative: Patient is a 48-year-old female who presented to the emerged part with a chief complaint of abdominal pain nausea vomiting. Patient will have a workup performed here on the differential diagnose includes but not limited to pancreatitis, acute cholecystitis, viral gastroenteritis, IBS flare. Once workup is obtained reviewed she will be reevaluated.. Patient CBC reviewed and was largely unremarkable no evidence of leukocytosis white blood count normal at 5.8, hemoglobin stable 11.9, patient has a macrocytic anemia with MCV of 104.1. Patient's sodium normal 139, potassium low at 3.6, creatinine normal at 0.80. Patient's bilirubin total was normal at 0.30, AST and ALT were 18 and 15 respectively. Patient's lipase normal at 26, urinalysis did not reveal any evidence of infection. Patient's ultrasound of her abdomen reviewed and showed normal upper right quadrant abdominal ultrasound. Patient's EKG reviewed and showed sinus rhythm rate of 79 bpm Reevaluation the patient and she has significant tenderness to palpation in the epigastric region therefore a CT abdomen pelvis with IV contrast was added on. Patient states that she has to be pretreated with Benadryl and steroids prior to iodine contrast and states that she has tolerated this before she does not have anaphylaxis she just broke out in a rash and was very itchy she not have any difficulties breathing. Patient CT abdomen pelvis showed findings consistent with panniculitis did discuss results with the patient at this point in time she would like to go home. Patient was offered admission here for pain control and nausea control however she states that she needs to get home to her other daughter. She was sent a prescription for Zofran. She was encouraged to rotate Tylenol ibuprofen [id number] for pain control. She was encouraged return with worsening symptoms or other concerns and she is agreeable with this plan. All question concerns answered she was discharged home in stable condition. Lab Data Labs: Laboratory Results - last 24 hr 11/29/23 11/29/23 16:36 16:57 WBC 5.8 RBC 3.39 L Hgb 11.9 L Hct 35.3 L MCV 104.1 H MCH 35.1 H MCHC 33.7 RDW Std Deviation 52.2 H RDW Coeff of Karina 13.6 Plt Count 184 MPV 11.2 Immature Gran % (Auto) 0.200 Neut % (Auto) 58.6 Lymph % (Auto) 36.6 Snyder % (Auto) 2.6 Eos % (Auto) 1.5 Baso % (Auto) 0.5 Absolute Neuts (auto) 3.4 Absolute Lymphs (auto) 2.14 Nucleated RBC % 0 Sodium 139 Potassium 3.6 Chloride 108 H Carbon Dioxide 24.0 Anion Gap 7 BUN 14 Creatinine 0.80 Est GFR (MDRD) Af Amer 99 Est GFR (MDRD) Non-Af 82 BUN/Creatinine Ratio 17.5 Glucose 103 Calcium 8.6 Total Bilirubin 0.30 AST 18 ALT 15 Alkaline Phosphatase 126 H Total Protein 7.6 Albumin 3.5 Globulin 4.1 Albumin/Globulin Ratio 0.9 Lipase 26 Urine Color Yellow Urine Clarity Clear Urine pH 6.0 Ur Specific [place] 1.020 Urine Protein 30 H Urine Glucose (UA) Normal Urine Ketones Negative Urine Occult Blood Negative Urine Nitrite Negative Urine Bilirubin Negative Urine Urobilinogen Normal Ur Leukocyte Esterase 25 H Urine RBC 0-5 SEEN Urine WBC 0-5 SEEN Ur Squamous Epith Cells 0 SEEN Urine Bacteria 0 SEEN Urine Mucus 0 SEEN Radiography Diagnostic Testing: Clinical Impression(s) from Imaging Studies Abdomen Ultrasound 11/29/23 18:03 IMPRESSION: Normal right upper quadrant ultrasound. Electronically Signed: Janes Joseph MD at 19:03 EDT , Abdomen/Pelvis CT 11/29/23 20:19 IMPRESSION: Findings most consistent with mesenteric panniculitis. Electronically Signed: Janes Joseph MD at 22:21 EDT , Discharge Plan Triage Chief Complaint: Abd Pain ED Provider: Preston Thomas Dx/Rx/DC Orders Clinical Impression: Abdominal pain, Panniculitis Prescriptions: New ondansetron 4 mg tablet,disintegrating 4 mg PO Q6H PRN (Reason: nausea and vomiting) Qty: 14 0RF No Action topiramate 200 mg tablet 200 mg PO QHS carbamazepine 200 mg tablet 200 mg PO DAILY Patient Comments: 1 Tab AM & 2 PM baclofen 10 mg tablet 10 mg PO TID quetiapine [Seroquel] 300 mg tablet 300 mg PO DAILY epinephrine [EpiPen 2-Raymond] 0.3 mg/0.3 mL auto-injector 0.3 mg IM Q5-15M PRN (Reason: anaphylaxis) Qty: 2 3RF Rx Instructions: do not exceed 3 doses per episode hydroxychloroquine 200 mg tablet 200 mg PO BID (DME) Handicap Placard See Rx Instructions .ROUTE .MEDSUPPLY Qty: 1 0RF Rx Instructions: As directed, length of time 3 years (DME) wheelchair See Rx Instructions .Route .MEDSUPPLY Qty: 1 0RF Rx Instructions: As directed methotrexate sodium 2.5 mg tablet 20 mg PO TU folic acid 1 mg tablet 1 mg PO DAILY quetiapine 400 mg tablet 400 mg PO DAILY Ubrelvy 100 mg tablet 100 mg PO DAILY Patient Comments: PER PT: CAN TAKE UP TO 2 IN A 24 HOUR PEROID, BUT NO MORE THEN 8 TABS MONTHLY ondansetron 4 mg tablet,disintegrating 4 mg PO Q8H PRN (Reason: nausea and vomiting) nortriptyline 10 mg capsule 30 mg PO QHS prazosin 2 mg capsule 4 mg PO QHS Ajovy Autoinjector 225 mg/1.5 mL auto-injector 225 mg subcut QMONTH buspirone 10 mg tablet 10 mg PO BID cholecalciferol (vitamin D3) 1,250 mcg (50,000 unit) capsule 1,250 mcg PO QWEEK (DME) Handicap Placard See Rx Instructions .Route .MEDSUPPLY Qty: 1 0RF Rx Instructions: As directed, length of time 3 years (DME) Ultra-Light Rollator Misc See Rx Instructions .Route Qty: 1 0RF Rx Instructions: As directed (DME) Ultra-Light Rollator Misc See Rx Instructions .Route Qty: 1 0RF Rx Instructions: As directed levetiracetam [Keppra] 500 mg tablet 500 mg PO BID Qty: 180 0RF pantoprazole 40 mg tablet,delayed release (DR/EC) 40 mg PO DAILY Qty: 90 1RF scopolamine base 1 mg over 3 days patch 3 day 1 patch transdermal Q3D PRN (Reason: nausea and vomiting) Qty: 10 5RF docusate sodium 100 mg capsule 100 mg PO BID Qty: 60 3RF simvastatin 20 mg tablet 20 mg PO QPM Qty: 90 1RF gabapentin 600 mg tablet 600 mg PO TID Qty: 90 0RF Primary Care Provider: Gayle Munoz Referrals: Gayle Munoz MD [Primary Care Provider] - Print Language: [place]
== END 2023-11-29 22:51 | disposition home or self-care (01) ==
PROVIDERS: Emergency Provider Emergency Medicine; PCP Internal Medicine; Visit Provider Emergency Medicine
DX: M79.3 Panniculitis, unspecified (principal); F17.200 Nicotine dependence, unspecified, uncomplicated; R10.9 Unspecified abdominal pain
CPT/HCPCS: 74177; 76705; 80053; 81001; 83690; 85025; 93005; 96361; 96374; 96375; 96376; 99283; J7030; Q9967; A4216; J2405

== ENCOUNTER 2024-02-06 05:47 | Emergency (ER) | payer MEDICAID, SELFPAY ==
[2024-02-06 05:49] VITALS: BP 117/59; PULSE 89; RESP 16; TEMP 36.8; O2SAT 99; BMI 27.8
--- NOTE | 2024-02-06 06:10 | EKG12_ITS ---
Test Reason : CP Blood Pressure : */* mmHG Vent. Rate : 85 BPM Atrial Rate : 85 BPM P-R Int : 144 ms QRS Dur : 92 ms QT Int : 386 ms P-R-T Axes : 35 40 40 degrees QTcB Int : 459 ms Normal sinus rhythm Normal ECG Confirmed by DHARMESH PLUNKETT, WELLINGTON ([id number]), editor publications GIUSEP[employer] GANT ([id number]) on 02/08/2024 8:04:23 AM Referred By: Confirmed By: WELLINGTON BARROSO MD
--- NOTE | 2024-02-06 06:10 | RAD_ITS ---
STUDY: X-RAY CHEST REASON FOR EXAM: Female, 48 years old. Chest pain TECHNIQUE: PA and lateral views of the chest. COMPARISON: Comparison is made with prior study September 27, 2022. FINDINGS: EKG electrodes are seen. Spinal cord stimulating device is seen with the tip of the electrodes at the T7-T8 level. Mild degree of increased markings at both lung bases suggestive of a bibasilar atelectasis and/or possible early infiltrates. There is no demonstrated pleural abnormality. Normal size heart. Normal mediastinum and janette. Normal visualized pulmonary arteries. Normal visualized aortic arch and descending thoracic aorta. Normal visualized thoracic spine. Normal visualized ribs, clavicles, and shoulders. There is no demonstrated abnormality of the visualized soft tissue structures of the upper abdomen. RAD/Chest PA and Lateral IMPRESSION: Mild increase in linear markings at the lung bases as compared to prior study suggests mild bibasilar atelectasis versus early infiltrate. Electronically Signed: Amado Bernardo MD at 8:34 EDT ,
--- NOTE | 2024-02-06 06:11 | EX.ED.DYSGE1 ---
HPI History of Present Illness Chief Complaint: Chest Pain Informant: patient and EMS Narrative Narrative: Patient is a 48-year-old female with a past medical history of GERD lupus and hyperlipidemia. She states she went to bed normally but then awoke roughly 30 minutes prior to arrival with midsternal to left-sided lower chest pain. She states it felt like a squeezing or pressure. She reports nausea associated with it as well. She states there is no radiation of the pain and she denied any diaphoresis or shortness of breath. She states she did experience a bout of emesis prior to EMS arrival and after her emesis about the pain began to resolve and completely resolved by the time she reached the ER. She states she did receive 4 baby aspirin from EMS but denies any need for nitroglycerin. She states she feels normal at this time with resolution of her pain but with concern that this was related to potential cardiovascular event she presents for evaluation. [facility] Medical History Screening for thyroid disorder Galactorrhea Blurry vision GERD (gastroesophageal reflux disease) High cholesterol PTSD (post-traumatic stress disorder) History of stress test History of echocardiogram Cardiology follow-up encounter Chest pain Syncope Palpitations Hyperlipidemia Bradycardia Hematemesis of unknown cause Degenerative disc disease Superior glenoid labrum lesion of right shoulder Constipation Early satiety Rotator cuff injury Right shoulder pain Cough Nausea and vomiting Epigastric pain Flu vaccine need Lupus Debility Chronic lumbar radiculopathy Health care maintenance Hematemesis Vomiting Elevated antinuclear antibody (PAT) level Positive P-ANCA titer GI bleed Colon polyp Fatty liver Sludge in gallbladder Post-menopausal Anxiety Seizures Smoker Wheelchair dependent Wheel chair as ambulatory aid Foot pain, left Lower GI bleeding Dysphagia Elevated blood pressure reading Hypokalemia Abdominal pain UTI (urinary tract infection) Uterine cancer Cervical cancer Interstitial cystitis Acute cystitis Hematuria Flank pain Fibromyalgia Blurry vision, left eye Dizziness Headache Fall Postoperative pain Acute pain of left foot Postoperative wound infection Insect bite Cellulitis Incisional hernia Gastroesophageal reflux disease Urinary frequency Urge incontinence Urinary urgency Migraines Lamar's palsy Depression with anxiety Ulcer Lipoma Stroke Seizures Osteoarthritis Neuropathy Kidney stones Irritable bowel syndrome Hives Hearing problem Carpal tunnel syndrome Arthritis Seasonal allergies Home Medications ?Medication ?Instructions ?Recorded ?Last Taken ?Type topiramate 200 mg tablet 200 mg PO QHS headaches 08/15/18 Unknown History Handicap Placard #1 ea 05/03/20 Unknown Rx baclofen 10 mg tablet 10 mg PO TID 03/23/21 08/21/23 History walker (Ultra-Light Rollator misc) #1 ea 09/26/21 Unknown Rx quetiapine 300 mg tablet (Seroquel) 300 mg PO DAILY 02/22/22 Unknown History epinephrine 0.3 mg/0.3 mL 0.3 mg (0.3 mL) IM Q5-15M PRN 04/14/22 Unknown Rx injection, auto-injector (EpiPen anaphylaxis #2 ea 2-Raymond) walker (Ultra-Light Rollator misc) #1 ea 08/10/22 Unknown Rx hydroxychloroquine 200 mg tablet 200 mg PO BID 08/15/22 Unknown History levetiracetam 500 mg tablet 500 mg PO BID #180 tabs 09/26/22 08/21/23 Rx (Keppra) Handicap Placard #1 ea 03/09/23 Unknown Rx wheelchair #1 ea 03/09/23 Unknown Rx carbamazepine 200 mg tablet 200 mg PO DAILY seizures 04/17/23 08/21/23 History fremanezumab-vfrm 225 mg/1.5 mL 225 mg subcut QMONTH 04/17/23 Unknown History subcutaneous auto-injector (Ajovy) nortriptyline 10 mg capsule 30 mg PO QHS 04/17/23 Unknown History ondansetron 4 mg disintegrating 4 mg PO Q8H PRN nausea and vomiting 04/17/23 Unknown History tablet prazosin 2 mg capsule 4 mg PO QHS 04/17/23 Unknown History folic acid 1 mg tablet 1 mg PO DAILY 06/08/23 Unknown History methotrexate sodium 2.5 mg tablet 20 mg PO TU 06/08/23 Unknown History quetiapine 400 mg tablet 400 mg PO DAILY 06/08/23 Unknown History ubrogepant 100 mg tablet (Ubrelvy) 100 mg PO DAILY 06/08/23 Unknown History buspirone 10 mg tablet 10 mg PO BID 08/31/23 Unknown History cholecalciferol (vitamin D3) 1,250 1,250 mcg PO QWEEK 08/31/23 Unknown History mcg (50,000 unit) capsule simvastatin 20 mg tablet 20 mg PO QPM #90 tabs 11/14/23 Unknown Rx ondansetron 4 mg disintegrating 4 mg PO Q6H PRN nausea and 11/29/23 Unknown Rx tablet vomiting #14 tabs pantoprazole 40 mg tablet,delayed 40 mg PO DAILY #90 tabs 12/13/23 Unknown Rx release scopolamine base 1 mg over 3 days 1 patch transdermal Q3D PRN nausea 12/14/23 Unknown Rx transdermal patch and vomiting #10 ea docusate sodium 100 mg capsule 100 mg PO BID #60 caps 01/11/24 Unknown Rx gabapentin 600 mg tablet 600 mg PO TID nerve pain #90 tabs 01/11/24 Unknown Rx Allergy/AdvReac Type Severity Reaction Status Date / Time venom-honey bee Allergy Severe severe Verified 02/06/24 05:49 venom-wasp Allergy Severe severe Verified 02/06/24 05:49 coconut Allergy Intermediate Hives Verified 02/06/24 05:49 doxycycline Allergy Intermediate Rash Verified 02/06/24 05:49 mushroom Allergy Intermediate Hives Verified 02/06/24 05:49 ciprofloxacin (From Cipro) Allergy Rash Verified 02/06/24 05:49 erythromycin base Allergy Anaphylaxis Verified 02/06/24 05:49 iodine Allergy Anaphylaxis Verified 02/06/24 05:49 latex Allergy Rash Verified 02/06/24 05:49 metronidazole (From Flagyl) Allergy Anaphylaxis Verified 02/06/24 05:49 naproxen (From Naprosyn) Allergy Anaphylaxis Verified 02/06/24 05:49 Penicillins Allergy Anaphylaxis Verified 02/06/24 05:49 shellfish derived Allergy Anaphylaxis Verified 02/06/24 05:49 lithium AdvReac Intermediate Mood Verified 02/06/24 05:49 changes adhesive AdvReac Mild BLISTERS Verified 02/06/24 05:49 sulfamethoxazole (From AdvReac Hives Verified 02/06/24 05:49 Bactrim) trimethoprim (From Bactrim) AdvReac Hives Verified 02/06/24 05:49 Family History Father Asthma Grandfather No problems noted. Grandmother Asthma Brother Lung cancer Diabetes Hypertension Grandfather Asthma Grandmother Asthma Hypertension Mother Diabetes Aunt Diabetes Son Seizures Asthma Surgical History History of repair of rotator cuff Hx of surgical procedure History of colonoscopy History of esophagogastroduodenoscopy (EGD) Hx of surgical procedure Status post left foot surgery S/P left knee surgery S/P umbilical hernia repair, follow-up exam History of bladder repair surgery History of spinal surgery History of appendectomy History of hysterectomy History of orthopedic surgery History of carpal tunnel surgery of right wrist Social History Smoking Status: Light Smoker (<10/day) alcohol intake: never substance use type: does not use caffeine: No what type of physical activity do you participate in: none ROS ROS ED Constitutional Constitutional ED: Denies chills or fever(s) Eyes Eyes: Denies blurry vision, change in vision or diplopia ENT ENT ED: Denies sore throat Cardiovascular Cardiovascular: Reports chest pain; Denies palpitations or racing heartbeat Respiratory/Chest Respiratory/Chest: Denies cough or dyspnea Gastrointestinal Gastrointestinal: Reports nausea and vomiting; Denies abdominal pain or diarrhea Genitourinary Genitourinary ED: Denies dysuria Musculoskeletal Musculoskeletal: Denies back pain or myalgias Integumentary Denies rash Neurologic Neurologic: Denies headache(s) Hematologic/Lymphatic Hematologic/Lymphatic: Denies easy bleeding or easy bruising EXAM Physical Exam Const Vital Signs: 02/06/24 05:49 02/06/24 05:52 02/06/24 06:48 Temperature 98.2 F Temperature Source Oral Pulse Rate 89 78 Respiratory Rate 16 15 Respiratory Effort Normal Blood Pressure 117/59 L 108/64 Blood Pressure Mean 78 78 Pulse Ox 99 96 Oxygen Delivery Method Room Air Positive well nourished and well developed General Appearance ED: well developed; Negative for pallor HEENT HEENT Narrative: Normocephalic atraumatic Eyes PERRL and EOMs intact bilaterally General Eye ED: Negative for scleral icterus Neck supple Neck Narrative: No nuchal rigidity or meningeal signs noted Chest Wall palpation of chest normal Chest Narrative: No reproducible pain with palpation No bony deformity or crepitance noted Resp normal respiratory effort and clear to auscultation bilaterally Cardio regular rate and regular rhythm Rate: other Other Details: Heart is regular rate and rhythm without murmurs rubs or gallops Radial and carotid pulses are equal and symmetric No carotid bruit noted GI non-distended GI Narrative: Abdomen is soft and nondistended with normal active bowel sounds. There is pain with palpation along the umbilicus at the patient's known umbilical hernia but it is reducible in nature without signs of incarceration. No voluntary guarding or rigidity or pulsatile mass. Auscultation: normoactive bowel sounds Palpation: soft Extremity normal to inspection Extremity Narrative: No asymmetric edema no pitting edema negative Homans' sign bilaterally Neuro oriented x3, CN's II-XII intact bilaterally and no sensory deficits noted Sensorium / Orientation: alert Motor Exam: strength 5/5 throughout Psych mental status grossly normal Skin no rashes or lesions noted General Skin Exam: Negative for jaundice or pallor MDM MDM MDM Narrative Medical decision making narrative: Patient arrived to the ER with stable vitals and spontaneous resolution of her chest discomfort. Differential diagnosis is for acute coronary syndrome versus coronary vasospasm versus cardiac dysrhythmia versus atypical pancreatitis or biliary colic or acute cholecystitis. There is also concern for potential lung pathology such as pneumonia or pneumothorax. Patient's EKG is sinus rhythm without ischemic or STEMI changes and this correlates with a normal troponin of less than 3. Therefore there is no need for a delta troponin. The patient's chest x-ray revealed no acute lung pathology. Laboratory studies revealed no elevation to the lipase going against pancreatitis and normal liver enzymes going against biliary colic or acute cholecystitis. On reevaluation the patient's vitals are stable and she remains pain-free. Therefore at this time with spontaneous resolution of her symptoms normal EKG a troponin value less than 3 and no signs of a cardiac dysrhythmia while on the monitor or signs of lung pathology based on x-ray I do not feel there is need for further workup and she can follow-up as an outpatient History & Record Review Discussion w/independent historian: Patient Lab Data Attestation: I reviewed the patient's lab results. Labs: Laboratory Results - last 24 hr 02/06/24 06:14 WBC 5.2 RBC 3.35 L Hgb 11.5 L Hct 35.7 L MCV 106.6 H MCH 34.3 H MCHC 32.2 RDW Std Deviation 55.2 H RDW Coeff of Karina 14.1 Plt Count 180 MPV 12.0 Immature Gran % (Auto) 0.200 Neut % (Auto) 47.0 Lymph % (Auto) 38.8 Duchesne % (Auto) 7.2 Eos % (Auto) 6.2 H Baso % (Auto) 0.6 Absolute Neuts (auto) 2.4 Absolute Lymphs (auto) 2.00 Nucleated RBC % 0 Sodium 142 Potassium 3.4 L Chloride 113 H Carbon Dioxide 25.0 Anion Gap 5 BUN 12 Creatinine 0.68 Estim Creat Clear Calc 111.73 Est GFR (MDRD) Af Amer 120 Est GFR (MDRD) Non-Af 99 BUN/Creatinine Ratio 17.7 Glucose 118 H Calcium 8.6 Magnesium 2.1 Total Bilirubin 0.30 Direct Bilirubin 0.11 AST 13 L ALT 20 Alkaline Phosphatase 109 Troponin I High Sens < 3 L Total Protein 7.3 Albumin 3.4 Globulin 3.9 Lipase 34 Radiography Diagnostic Testing: Chest x-ray as interpreted by the emergency medicine physician reveals no acute infiltrate pneumothorax pleural effusion or widening of the mediastinum Discharge Plan Triage Chief Complaint: Chest Pain ED Provider: Luis Ty Dx/Rx/DC Orders Clinical Impression: Nonspecific chest pain, Lupus, Hyperlipidemia, GERD (gastroesophageal reflux disease) Instructions: ED Chest Pain, Uncertain Cause Prescriptions: No Action topiramate 200 mg tablet 200 mg PO QHS carbamazepine 200 mg tablet 200 mg PO DAILY Patient Comments: 1 Tab AM & 2 PM baclofen 10 mg tablet 10 mg PO TID quetiapine [Seroquel] 300 mg tablet 300 mg PO DAILY epinephrine [EpiPen 2-Raymond] 0.3 mg/0.3 mL auto-injector 0.3 mg IM Q5-15M PRN (Reason: anaphylaxis) Qty: 2 3RF Rx Instructions: do not exceed 3 doses per episode hydroxychloroquine 200 mg tablet 200 mg PO BID (DME) Handicap Placard See Rx Instructions .ROUTE .MEDSUPPLY Qty: 1 0RF Rx Instructions: As directed, length of time 3 years (DME) wheelchair See Rx Instructions .Route .MEDSUPPLY Qty: 1 0RF Rx Instructions: As directed methotrexate sodium 2.5 mg tablet 20 mg PO TU folic acid 1 mg tablet 1 mg PO DAILY quetiapine 400 mg tablet 400 mg PO DAILY Ubrelvy 100 mg tablet 100 mg PO DAILY Patient Comments: PER PT: CAN TAKE UP TO 2 IN A 24 HOUR PEROID, BUT NO MORE THEN 8 TABS MONTHLY ondansetron 4 mg tablet,disintegrating 4 mg PO Q8H PRN (Reason: nausea and vomiting) nortriptyline 10 mg capsule 30 mg PO QHS prazosin 2 mg capsule 4 mg PO QHS Ajovy Autoinjector 225 mg/1.5 mL auto-injector 225 mg subcut QMONTH buspirone 10 mg tablet 10 mg PO BID cholecalciferol (vitamin D3) 1,250 mcg (50,000 unit) capsule 1,250 mcg PO QWEEK ondansetron 4 mg tablet,disintegrating 4 mg PO Q6H PRN (Reason: nausea and vomiting) Qty: 14 0RF (DME) Handicap Placard See Rx Instructions .Route .MEDSUPPLY Qty: 1 0RF Rx Instructions: As directed, length of time 3 years (DME) Ultra-Light Rollator Misc See Rx Instructions .Route Qty: 1 0RF Rx Instructions: As directed (DME) Ultra-Light Rollator Misc See Rx Instructions .Route Qty: 1 0RF Rx Instructions: As directed levetiracetam [Keppra] 500 mg tablet 500 mg PO BID Qty: 180 0RF simvastatin 20 mg tablet 20 mg PO QPM Qty: 90 1RF pantoprazole 40 mg tablet,delayed release (DR/EC) 40 mg PO DAILY Qty: 90 1RF scopolamine base 1 mg over 3 days patch 3 day 1 patch transdermal Q3D PRN (Reason: nausea and vomiting) Qty: 10 5RF docusate sodium 100 mg capsule 100 mg PO BID Qty: 60 0RF gabapentin 600 mg tablet 600 mg PO TID Qty: 90 0RF Primary Care Provider: Gayle Munoz Referrals: Gayle Munoz MD [Primary Care Provider] - Activity Restrictions/Additional Instructions: Your workup today revealed no signs of heart damage or an abnormal heart rhythm. Please continue all of your home medications as directed by your doctor and return to the ER should you have any further concerns Print Language: Greenlandic Disposition Disposition: Home, Self Care
[2024-02-06 06:28] LABS: Absolute Neutrophil Count 2.4 X10^3/uL (2.0-7.7); Basophil# 0.03 X10^3/uL; Basophil% 0.6 % (0-1); Eosinophil# 0.32 X10^3/uL; Eosinophils% 6.2 % (0-5); Hematocrit 35.7 % (37-47); Hemoglobin 11.5 g/dL (12.0-15.0); Lymphocyte % 38.8 % (19-41); Mean Corp Hgb Conc 32.2 g/dL (32-36); Mean Corpuscular Hgb 34.3 pg (27.0-32.0); Mean Corpuscular Volume 106.6 fL (81-99); Monocyte# 0.37 X10^3/uL; Monocyte% 7.2 % (0-10); NRBC Flagged by Analyzer 0 % (0-5); Neutrophil # 2.42 X10^3/uL (2.7-7.7); Platelet Count 180 K/mm3 (150-450); RBC Distribution Width CV 14.1 % (11.6-14.6); RBC Distribution Width SD 55.2 fl (35.1-43.9); Red Blood Count 3.35 M/mm3 (4.2-5.4); White Blood Count 5.2 K/mm3 (4.4-11.0)
[2024-02-06 06:39] LABS: AST(SGOT) 13 U/L (15-37); Alanine Aminotransfer ALT/SGPT 20 U/L (13-56); Albumin, Serum 3.4 g/dL (3.2-5.0); Alkaline Phosphatase 109 U/L (45-117); Anion Gap 5 (5-15); BUN 12 mg/dL (7-18); BUN/Creat Ratio 17.7 RATIO (10-20); Bilirubin, Direct 0.11 mg/dL (0.00-0.30); Calcium,Total 8.6 mg/dL (8.5-10.1); Chloride 113 mmol/L (98-107); Creatinine, Serum 0.68 mg/dL (0.55-1.02); EST Glomerular Filtration Rate 99 mL/min (>60); Est Glom Filt Rate - Afr Amer 120 mL/min (>60); Estimated Creatinine Clearance 111.73 ml/min; Globulin 3.9 g/dL (2.2-4.2); Glucose 118 mg/dL (74-106); Lipase 34 U/L (13-75); Magnesium 2.1 mg/dL (1.6-2.6); Potassium 3.4 mmol/L (3.5-5.1); Protein, Total 7.3 g/dL (6.4-8.2); Sodium Level 142 mmol/L (136-145); Troponin-I HS < 3 pg/mL (3.0-54.0)
[2024-02-06 06:48] VITALS: BP 108/64; PULSE 78; RESP 15; O2SAT 96
[2024-02-06 07:00] VITALS: BP 107/71; PULSE 79; RESP 15; O2SAT 97
[2024-02-06 07:08] VITALS: BP 107/71; PULSE 79; RESP 15; TEMP 36.8; O2SAT 97
== END 2024-02-06 07:08 | disposition home or self-care (01) ==
PROVIDERS: Emergency Provider Emergency Medicine; PCP Internal Medicine; Visit Provider Emergency Medicine
DX: R07.89 Other chest pain (principal); M32.9 Systemic lupus erythematosus, unspecified; G40.909 Epilepsy, unspecified, not intractable, without status epilepticus; R11.2 Nausea with vomiting, unspecified; K21.9 Gastro-esophageal reflux disease without esophagitis; K58.9 Irritable bowel syndrome, unspecified; F41.8 Other specified anxiety disorders; E78.00 Pure hypercholesterolemia, unspecified; M79.7 Fibromyalgia; F17.200 Nicotine dependence, unspecified, uncomplicated; M54.16 Radiculopathy, lumbar region; G62.9 Polyneuropathy, unspecified; G43.909 Migraine, unspecified, not intractable, without status migrainosus; Z88.1 Allergy status to other antibiotic agents; Z88.2 Allergy status to sulfonamides; Z88.0 Allergy status to penicillin; Z86.73 Personal history of transient ischemic attack (TIA), and cerebral infarction without residual deficits; Z85.41 Personal history of malignant neoplasm of cervix uteri; Z90.49 Acquired absence of other specified parts of digestive tract; Z87.19 Personal history of other diseases of the digestive system; Z85.42 Personal history of malignant neoplasm of other parts of uterus; Z87.440 Personal history of urinary (tract) infections; Z87.442 Personal history of urinary calculi; Z90.710 Acquired absence of both cervix and uterus; Z79.899 Other long term (current) drug therapy; Z86.0100 Personal history of colon polyps, unspecified
CPT/HCPCS: 71046; 80048; 80076; 83690; 83735; 84484; 85025; 93005; 99285

== ENCOUNTER 2024-02-14 12:39 | Emergency (ER) | payer MEDICAID, SELFPAY ==
[2024-02-14 12:40] VITALS: BP 111/77; PULSE 94; RESP 17; TEMP 36.8; O2SAT 100; BMI 27.3
[2024-02-14 13:26] LABS: Absolute Lymphocyte Count 1.62 X10^3/uL (0.83-4.51); Absolute Neutrophil Count 2.8 X10^3/uL (2.0-7.7); Basophil# 0.03 X10^3/uL; Basophil% 0.6 % (0-1); Eosinophil# 0.16 X10^3/uL; Eosinophils% 3.2 % (0-5); Hematocrit 36.4 % (37-47); Hemoglobin 11.7 g/dL (12.0-15.0); Lymphocyte # 1.62 X10^3/ul (0.83-4.51); Lymphocyte % 32.2 % (19-41); Mean Corp Hgb Conc 32.1 g/dL (32-36); Mean Corpuscular Hgb 34.8 pg (27.0-32.0); Mean Corpuscular Volume 108.3 fL (81-99); Mean Platelet Vol. 10.9 fl (6.2-12.0); Monocyte# 0.38 X10^3/uL; Monocyte% 7.6 % (0-10); NRBC Flagged by Analyzer 0 % (0-5); Neutrophil # 2.82 X10^3/uL (2.7-7.7); Platelet Count 171 K/mm3 (150-450); RBC Distribution Width CV 14.4 % (11.6-14.6); RBC Distribution Width SD 57.1 fl (35.1-43.9); Red Blood Count 3.36 M/mm3 (4.2-5.4)
[2024-02-14] MEDS: Ondansetron 4 MG/2 ML Vial IV (13:26)
[2024-02-14] MEDS: HYDROmorphone 1 MG/ML Syringe IV (13:26)
[2024-02-14 13:47] LABS: AST(SGOT) 22 U/L (15-37); Alanine Aminotransfer ALT/SGPT 22 U/L (13-56); Albumin, Serum 3.5 g/dL (3.2-5.0); Alkaline Phosphatase 119 U/L (45-117); Anion Gap 5 (5-15); BUN 14 mg/dL (7-18); BUN/Creat Ratio 22.7 RATIO (10-20); Bilirubin, Direct 0.07 mg/dL (0.00-0.30); Calcium,Total 8.4 mg/dL (8.5-10.1); Chloride 113 mmol/L (98-107); Creatinine, Serum 0.62 mg/dL (0.55-1.02); EST Glomerular Filtration Rate 110 mL/min (>60); Est Glom Filt Rate - Afr Amer 133 mL/min (>60); Estimated Creatinine Clearance 121.55 ml/min; Globulin 3.9 g/dL (2.2-4.2); Glucose 96 mg/dL (74-106); Lipase 27 U/L (13-75); Potassium 3.5 mmol/L (3.5-5.1); Protein, Total 7.4 g/dL (6.4-8.2); Sodium Level 141 mmol/L (136-145); Troponin-I HS < 3 pg/mL (3.0-54.0)
[2024-02-14 13:47] LABS: Bacteria 0 SEEN /hpf (None Seen); Mucous, Urine 0 SEEN /hpf (<or=2+); Red Blood Cells-Urine 0 SEEN /hpf (0-5); White Blood Cells 0 SEEN /hpf (0-5)
[2024-02-14 13:50] LABS: Color, Urine Yellow (Yellow); Glucose, Dipstick Normal (Normal); Ketone-Dipstick Negative (Negative); Leukocyte Esterase-Dipstick Negative /ul (Negative); Nitrite-Dipstick Negative (Negative); Occult Blood-Urine Negative /ul (Negative); Protein-Dipstick Negative (Negative); Specific Gravity, Urine 1.015 (1.002-1.030); Urine Bilirubin Dipstick Negative (Negative); Urine Clarity Clear (Clear); Urine Urobilinogen Normal (Normal)
[2024-02-14 13:59] LABS: Squamous Epithelial Cells - UA 0-5 SEEN /hpf (5-10)
[2024-02-14 14:40] VITALS: BP 109/74; PULSE 81; RESP 16; TEMP 36.8; O2SAT 97
== END 2024-02-14 15:27 | disposition home or self-care (01) ==
PROVIDERS: Emergency Provider Emergency Medicine; PCP Internal Medicine; Visit Provider Emergency Medicine
DX: R10.12 Left upper quadrant pain (principal); G40.909 Epilepsy, unspecified, not intractable, without status epilepticus; R11.2 Nausea with vomiting, unspecified; R14.0 Abdominal distension (gaseous); E78.00 Pure hypercholesterolemia, unspecified; F43.10 Post-traumatic stress disorder, unspecified; F17.200 Nicotine dependence, unspecified, uncomplicated; F41.8 Other specified anxiety disorders; K21.9 Gastro-esophageal reflux disease without esophagitis; K58.9 Irritable bowel syndrome, unspecified; M79.7 Fibromyalgia; M19.90 Unspecified osteoarthritis, unspecified site; M54.16 Radiculopathy, lumbar region; G62.9 Polyneuropathy, unspecified; G43.909 Migraine, unspecified, not intractable, without status migrainosus; Z88.0 Allergy status to penicillin; Z88.1 Allergy status to other antibiotic agents; Z88.2 Allergy status to sulfonamides; Z90.49 Acquired absence of other specified parts of digestive tract; Z87.19 Personal history of other diseases of the digestive system; Z85.41 Personal history of malignant neoplasm of cervix uteri; Z85.42 Personal history of malignant neoplasm of other parts of uterus; Z86.73 Personal history of transient ischemic attack (TIA), and cerebral infarction without residual deficits; Z87.440 Personal history of urinary (tract) infections; Z87.442 Personal history of urinary calculi; Z90.710 Acquired absence of both cervix and uterus; Z79.899 Other long term (current) drug therapy; Z86.0100 Personal history of colon polyps, unspecified
CPT/HCPCS: 74176; 80048; 80076; 81001; 83690; 84484; 85025; 85379; 93005; 96374; 96375; 99284; J7030; A4216; J2405

== ENCOUNTER → 2024-02-21 | Outpatient (CLI) | payer MEDICAID, SELFPAY ==
[2024-02-21 14:10] LABS: Mucous, Urine 0 SEEN /hpf (<or=2+)
--- NOTE | 2024-02-21 14:35 | RAD_ITS ---
INDICATION: LUQ EXAMINATION/TECHNIQUE: X-RAY - XR Chest 2 Views COMPARISON: February 06, 2024 FINDINGS: LINES/DEVICES: None. LUNGS: No consolidation, edema or effusion. No pneumothorax. MEDIASTINUM AND CARDIOVASCULAR STRUCTURES: Cardiac silhouette not enlarged. Central airways and mediastinal contour are unremarkable. BONES AND SOFT TISSUES: Stimulator electrodes over the midthoracic vertebral column. RAD/Chest PA and Lateral IMPRESSION: No radiographic evidence of acute cardiopulmonary disease. Electronically Signed: Uriel Kaur DO at 9:55 EST ,
[2024-02-21 15:36] LABS: Color, Urine Yellow (Yellow); Glucose, Dipstick Normal (Normal); Ketone-Dipstick Negative (Negative); Leukocyte Esterase-Dipstick Negative /ul (Negative); Nitrite-Dipstick Negative (Negative); Occult Blood-Urine Negative /ul (Negative); Protein-Dipstick Negative (Negative); Urine Bilirubin Dipstick Negative (Negative); Urine Clarity Clear (Clear); Urine Urobilinogen Normal (Normal); Urine pH 6.5 (5.0 - 8.0)
[2024-02-21 16:32] LABS: Bacteria RARE /hpf (None Seen); Red Blood Cells-Urine 0-5 SEEN /hpf (0-5); Squamous Epithelial Cells - UA 0-5 SEEN /hpf (5-10); White Blood Cells 0-5 SEEN /hpf (0-5)
== END | disposition home or self-care (01) ==
PROVIDERS: PCP Internal Medicine; Referring Provider Physician Assistant; Visit Provider Physician Assistant
DX: R10.13 Epigastric pain (principal); R10.12 Left upper quadrant pain
CPT/HCPCS: 71046; 81001; 87086; 87088

== ENCOUNTER → 2024-04-28 | Outpatient (CLI) | payer MEDICAID, SELFPAY ==
[2024-04-28 15:47] LABS: Erythrocyte Sedimentation Rate 7 mm/hr (0-30)
[2024-04-28 15:48] LABS: Absolute Lymphocyte Count 1.66 X10^3/uL (0.83-4.51); Basophil# 0.02 X10^3/uL; Basophil% 0.5 % (0-1); Eosinophil# 0.14 X10^3/uL; Eosinophils% 3.4 % (0-5); Hematocrit 36.6 % (37-47); Lymphocyte # 1.66 X10^3/ul (0.83-4.51); Lymphocyte % 40.1 % (19-41); Mean Corp Hgb Conc 32.8 g/dL (32-36); Mean Corpuscular Hgb 35.3 pg (27.0-32.0); Mean Corpuscular Volume 107.6 fL (81-99); Mean Platelet Vol. 11.6 fl (6.2-12.0); Monocyte# 0.32 X10^3/uL; Monocyte% 7.7 % (0-10); NRBC Flagged by Analyzer 0 % (0-5); Neutrophil # 1.99 X10^3/uL (2.7-7.7); Neutrophil % 48.1 % (47-70); Platelet Count 178 K/mm3 (150-450); RBC Distribution Width CV 13.1 % (11.6-14.6); RBC Distribution Width SD 51.5 fl (35.1-43.9); White Blood Count 4.1 K/mm3 (4.4-11.0)
[2024-04-28 16:05] LABS: T4 Free Direct 0.55 ng/dL (0.76-1.46)
[2024-04-28 16:13] LABS: AST(SGOT) 19 U/L (15-37); Alanine Aminotransfer ALT/SGPT 20 U/L (13-56); Albumin, Serum 3.8 g/dL (3.2-5.0); Alkaline Phosphatase 125 U/L (45-117); Anion Gap 6 (5-15); BUN 11 mg/dL (7-18); BUN/Creat Ratio 14.2 RATIO (10-20); CRP < 2.90 mg/L (0.0-3.0); Calcium,Total 9.3 mg/dL (8.5-10.1); Chloride 111 mmol/L (98-107); Cholesterol 144 mg/dL (200); Creatinine, Serum 0.77 mg/dL (0.55-1.02); EST Glomerular Filtration Rate 85 mL/min (>60); Est Glom Filt Rate - Afr Amer 103 mL/min (>60); Glucose 96 mg/dL (74-106); High Density Lipoprotein 61 mg/dL; LDH 238 U/L (84-246); Potassium 3.7 mmol/L (3.5-5.1); Protein, Total 7.8 g/dL (6.4-8.2); Sodium Level 142 mmol/L (136-145); Triglycerides 127 mg/dL; Very Low Density Lipoprotein 25 mg/dL (5-40)
[2024-04-28 16:52] LABS: Vitamin D,25 Hydroxy 63.7 ng/mL
[2024-04-30 05:07] LABS: PROLACTIN 3.3 ng/mL (4.8-33.4)
== END | disposition home or self-care (01) ==
LOC: BIMLAB 11:22
PROVIDERS: Internal Medicine Gastroenterology; PCP Internal Medicine; Referring Provider Registered Nurse; Visit Provider Registered Nurse
DX: E55.9 Vitamin D deficiency, unspecified (principal); Z79.899 Other long term (current) drug therapy
CPT/HCPCS: 36415; 80053; 80061; 82306; 83615; 84146; 84439; 84443; 85025; 85652; 86140; 87086; 87088

== ENCOUNTER 2024-08-22 10:28 | Day surgery (SDC) | payer MEDICAID, SELFPAY ==
--- NOTE | 2024-08-21 11:05 | PAT.ANE_ITS ---
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 When Was Last Pacemaker Check QUESTION #4 FULL TEXT: You/Your Family Experience fever (hyperthermia) with Anesthesia Last Oral Intake Last Oral intake: Last Oral Intake NPO since Meds taken in AM with sips of water? 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 - licensed pesticide applicator: PONV - licensed pesticide applicator Female Yes 08/21/24 10:37 HX of Motion Sickness Yes 08/21/24 10:37 HX of N/V After Surgery Yes 08/21/24 10:37 Non-Smoker Yes 08/21/24 10:37 Duration of Surgery greater No 08/21/24 10:37 than 60 minutes Number of Risk Factors 4 08/21/24 10:37 PONV Score Severe Risk 08/21/24 10:37 Height & Weight Height & Weight: Anesthesia: Height & Weight Height 5 ft 7 in 04/28/24 10:58 Respiratory Assessment Respiratory Assessment - licensed pesticide applicator: Respiratory Tract Infection Hx - licensed pesticide applicator Hx Respiratory Tract Infection No 08/21/24 10:37 STOP Sleep Apnea STOP Sleep Apnea - licensed pesticide applicator: STOP Sleep Apnea - licensed pesticide applicator Hx Hypertension No 08/21/24 10:37 Hx Sleep Apnea No 08/21/24 10:37 CPAP BIPAP Do you snore loudly (louder No 08/21/24 10:37 than talking or can be heard Do you often feel tired/ No 08/21/24 10:37 fatigued/ sleepy during daytime? Has anyone observed you stop No 08/21/24 10:37 breathing during sleep? STOP Results Negative 08/21/24 10:37 QUESTION #5 FULL TEXT : Do you snore loudly (louder than talking or can be heard through closed doors)? 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 Specify any problems Hx of Preganancy in last 3 No 08/21/24 10:37 Months Nurse Filling Out Transfusion DSCHRIBER 08/21/24 10:37 & Questions: Date: 08/21/24 08/21/24 10:37 Time: 10:40 08/21/24 10:37 Patient unable to answer at this time (ie. confused, unrespo /Reproduction History /Reproductive History - licensed pesticide applicator: /Reproductive Hx- licensed pesticide applicator Hx Now No 08/21/24 10:37 Gestational Age (in weeks): EDC: Hx Hx Para Hx Section SAB No 08/21/24 10:37 PFSH Medical History (Updated 08/21/24 @ 10:48 by Amada Ching) Esophagitis Spinal cord stimulator status Difficult intravenous access Esophageal dilatation Gastroparesis Chronic nausea Screening for thyroid disorder Galactorrhea Blurry vision GERD (gastroesophageal reflux disease) High cholesterol PTSD (post-traumatic stress disorder) History of stress test History of echocardiogram Cardiology follow-up encounter Chest pain Syncope Palpitations Hyperlipidemia Bradycardia Hematemesis of unknown cause Degenerative disc disease Superior glenoid labrum lesion of right shoulder Constipation Early satiety Rotator cuff injury Right shoulder pain Cough Nausea and vomiting Epigastric pain Flu vaccine need Lupus Debility Chronic lumbar radiculopathy Health care maintenance Hematemesis Vomiting Elevated antinuclear antibody (PAT) level Positive P-ANCA titer GI bleed Colon polyp Fatty liver Sludge in gallbladder Post-menopausal Anxiety Seizures Smoker Wheelchair dependent Wheel chair as ambulatory aid Foot pain, left Lower GI bleeding Dysphagia Elevated blood pressure reading Hypokalemia Abdominal pain UTI (urinary tract infection) Uterine cancer Cervical cancer Interstitial cystitis Acute cystitis Hematuria Flank pain Fibromyalgia Blurry vision, left eye Dizziness Headache Fall Postoperative pain Acute pain of left foot Postoperative wound infection Cellulitis Incisional hernia Gastroesophageal reflux disease Urinary frequency Urge incontinence Urinary urgency Migraines Lamar's palsy Depression with anxiety Ulcer Lipoma Stroke Seizures Osteoarthritis Neuropathy Kidney stones Irritable bowel syndrome Hives Hearing problem Carpal tunnel syndrome Arthritis Seasonal allergies Home Medications ?Medication ?Instructions ?Recorded ?Last Taken ?Type topiramate 200 mg tablet 200 mg PO QHS headaches 12/26 Unknown History Handicap Placard #1 ea 05/03/20 Unknown Rx baclofen 10 mg tablet 10 mg PO TID 03/23/21 History walker (Ultra-Light Rollator misc) #1 ea 09/26/21 Unkn own Rx quetiapine 300 mg tablet (Seroquel) 300 mg PO QHS 02/07 09/28 Unknown History walker (Ultra-Light Rollator misc) #1 ea 08/10/22 Unkn own Rx hydroxychloroquine 200 mg tablet 200 mg PO BID 3 Unknown History Handicap Placard #1 ea 03/09/23 Unknown Rx wheelchair #1 ea 03/09/23 Unknown Rx carbamazepine 200 mg tablet 200 mg PO DAILY seizures 0 04/17/23 08/21/23 History fremanezumab-vfrm 225 mg/1.5 mL 225 mg subcut QMONTH 0 04/17/23 Unknown History subcutaneous auto-injector (Ajovy) nortriptyline 10 mg capsule 30 mg PO QHS 04/17/23 Unkn own History prazosin 2 mg capsule 4 mg PO QHS 04/17/23 Unknown History folic acid 1 mg tablet 1 mg PO DAILY 06/08/23 Unkno wn History quetiapine 400 mg tablet 400 mg PO QHS 06/08/23 Unkno wn History cholecalciferol (vitamin D3) 1,250 1,250 mcg PO QWEEK 08/31/23 Unknown History mcg (50,000 unit) capsule Rollator walker #1 ea 02/21/24 Unknown Rx buspirone 10 mg tablet 10 mg PO .qid 02/21/24 Unkno wn History epinephrine 0.3 mg/0.3 mL 0.3 mg (0.3 mL) IM Q5-15M OR N 02/22/24 Unknown Rx injection, auto-injector (EpiPen anaphylaxis #2 ea 2-Raymond) ubrogepant 100 mg tablet (Ubrelvy) 100 mg PO DAILY PRN migraine 04/04/24 Unknown Rx headache #10 tabs methotrexate sodium 2.5 mg tablet 25 mg PO TU 04/28/24 Unknown History psyllium seed (sugar) oral powder 1 tbsp PO .3x/wk Unknown History (Metamucil (sugar) oral powder) simvastatin 20 mg tablet 20 mg PO QPM #90 tabs Unknown Rx lactulose 10 gram/15 mL (15 mL) 15 ml PO TID #300 mL 0 07/09/24 Unknown Rx oral solution ondansetron 4 mg disintegrating 4 mg PO Q6H PRN nausea and 07/09/24 Unknown Rx tablet vomiting #60 tabs pantoprazole 40 mg tablet,delayed 40 mg PO DAILY #90 t abs 07/09/24 Unknown Rx release promethazine 25 mg tablet 25 mg PO BID PRN nausea and 07/09/24 Unknown Rx vomiting #30 tabs linaclotide 145 mcg capsule 145 mcg PO QDAY #90 caps 0 08/05/24 Unknown Rx (Linzess) prochlorperazine 25 mg rectal 25 mg OR QHS 14 days #14 ea 08/13/24 Unknown Rx suppository (Compazine) scopolamine base 1 mg over 3 days 1 patch transdermal Q3D PRN nausea 08/13/24 Unknown Rx transdermal patch and vomiting #10 ea prochlorperazine maleate 10 mg 10 mg PO Q8H PRN nausea and 08/15/24 Unknown Rx tablet (Compazine) vomiting #90 tabs gabapentin 600 mg tablet 600 mg PO TID nerve pain #90 tabs 08/20/24 Unknown Rx levetiracetam 1,000 mg tablet 1,000 mg PO BID 08/21/24 Unknown History Allergy/AdvReac Type Severity Reaction Status Date / Time venom-honey bee Allergy Severe severe Verified 08/21/24 10:31 venom-wasp Allergy Severe severe Verified 08/21/24 10:31 coconut Allergy Intermediate Hives Verified 08/21/24 10:31 doxycycline Allergy Intermediate Rash Verified 08/21/24 10:31 mushroom Allergy Intermediate Hives Verified 08/21/24 10:31 ciprofloxacin (From Cipro) Allergy Rash Verified 08/21/24 10:31 erythromycin base Allergy Anaphylaxis Verified 08/21/24 10:31 iodine Allergy Anaphylaxis Verified 08/21/24 10:31 latex Allergy Rash Verified 08/21/24 10:31 metronidazole (From Flagyl) Allergy Anaphylaxis Verified 08/21/24 10:31 naproxen (From Naprosyn) Allergy Anaphylaxis Verified 08/21/24 10:31 Penicillins Allergy Anaphylaxis Verified 08/21/24 10:31 shellfish derived Allergy Anaphylaxis Verified 08/21/24 10:31 lithium AdvReac Intermediate Mood Verified 08/21/24 10:31 changes adhesive AdvReac Mild BLISTERS Verified 08/21/24 10:31 sulfamethoxazole (From AdvReac Hives Verified 08/21/24 10:31 Bactrim) trimethoprim (From Bactrim) AdvReac Hives Verified 08/21/24 10:31 Family History Father Asthma Grandfather No problems noted. Grandmother Asthma Brother Lung cancer Diabetes Hypertension Grandfather Asthma Grandmother Asthma Hypertension Mother Diabetes Aunt Diabetes Son Seizures Asthma Surgical History (Updated 08/21/24 @ 10:48 by Amada Ching) History of repair of rotator cuff Hx of surgical procedure History of colonoscopy History of esophagogastroduodenoscopy (EGD) Hx of surgical procedure Status post left foot surgery S/P left knee surgery S/P umbilical hernia repair, follow-up exam History of bladder repair surgery History of spinal surgery History of appendectomy History of hysterectomy History of orthopedic surgery History of carpal tunnel surgery of right wrist Social History Smoking Status: Light Smoker (<10/day) alcohol intake: never substance use type: does not use caffeine: No what type of physical activity do you participate in: none Prior Cardiac Testing/Procedures Prior Cardiac Testing/Procedures: Echocardiogram (EF 55% ) Addt'l Information Additional Findings: EKG NSR Recommendation Anesthesia Recommendation Anesthesia recommendation: OPTIMIZED for anesthesia
--- NOTE | 2024-08-21 11:13 | PAT.ANE_ITS ---
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 When Was Last Pacemaker Check QUESTION #4 FULL TEXT: You/Your Family Experience fever (hyperthermia) with Anesthesia Last Oral Intake Last Oral intake: Last Oral Intake NPO since Meds taken in AM with sips of water? 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 - senior government program analyst: PONV - senior government program analyst Female Yes 08/21/24 10:37 HX of Motion Sickness Yes 08/21/24 10:37 HX of N/V After Surgery Yes 08/21/24 10:37 Non-Smoker Yes 08/21/24 10:37 Duration of Surgery greater No 08/21/24 10:37 than 60 minutes Number of Risk Factors 4 08/21/24 10:37 PONV Score Severe Risk 08/21/24 10:37 Height & Weight Height & Weight: Anesthesia: Height & Weight Height 5 ft 7 in 04/28/24 10:58 Respiratory Assessment Respiratory Assessment - senior government program analyst: Respiratory Tract Infection Hx - senior government program analyst Hx Respiratory Tract Infection No 08/21/24 10:37 STOP Sleep Apnea STOP Sleep Apnea - senior government program analyst: STOP Sleep Apnea - senior government program analyst Hx Hypertension No 08/21/24 10:37 Hx Sleep Apnea No 08/21/24 10:37 CPAP BIPAP Do you snore loudly (louder No 08/21/24 10:37 than talking or can be heard Do you often feel tired/ No 08/21/24 10:37 fatigued/ sleepy during daytime? Has anyone observed you stop No 08/21/24 10:37 breathing during sleep? STOP Results Negative 08/21/24 10:37 QUESTION #5 FULL TEXT : Do you snore loudly (louder than talking or can be heard through closed doors)? 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 Specify any problems Hx of Preganancy in last 3 No 08/21/24 10:37 Months Nurse Filling Out Transfusion DSCHRIBER 08/21/24 10:37 & Questions: Date: 08/21/24 08/21/24 10:37 Time: 10:40 08/21/24 10:37 Patient unable to answer at this time (ie. confused, unrespo /Reproduction History /Reproductive History - senior government program analyst: /Reproductive Hx- senior government program analyst Hx Now No 08/21/24 10:37 Gestational Age (in weeks): EDC: Hx Hx Para Hx Section SAB No 08/21/24 10:37 PFSH Medical History (Updated 08/21/24 @ 10:48 by Amada Ching) Esophagitis Spinal cord stimulator status Difficult intravenous access Esophageal dilatation Gastroparesis Chronic nausea Screening for thyroid disorder Galactorrhea Blurry vision GERD (gastroesophageal reflux disease) High cholesterol PTSD (post-traumatic stress disorder) History of stress test History of echocardiogram Cardiology follow-up encounter Chest pain Syncope Palpitations Hyperlipidemia Bradycardia Hematemesis of unknown cause Degenerative disc disease Superior glenoid labrum lesion of right shoulder Constipation Early satiety Rotator cuff injury Right shoulder pain Cough Nausea and vomiting Epigastric pain Flu vaccine need Lupus Debility Chronic lumbar radiculopathy Health care maintenance Hematemesis Vomiting Elevated antinuclear antibody (PAT) level Positive P-ANCA titer GI bleed Colon polyp Fatty liver Sludge in gallbladder Post-menopausal Anxiety Seizures Smoker Wheelchair dependent Wheel chair as ambulatory aid Foot pain, left Lower GI bleeding Dysphagia Elevated blood pressure reading Hypokalemia Abdominal pain UTI (urinary tract infection) Uterine cancer Cervical cancer Interstitial cystitis Acute cystitis Hematuria Flank pain Fibromyalgia Blurry vision, left eye Dizziness Headache Fall Postoperative pain Acute pain of left foot Postoperative wound infection Cellulitis Incisional hernia Gastroesophageal reflux disease Urinary frequency Urge incontinence Urinary urgency Migraines Lamar's palsy Depression with anxiety Ulcer Lipoma Stroke Seizures Osteoarthritis Neuropathy Kidney stones Irritable bowel syndrome Hives Hearing problem Carpal tunnel syndrome Arthritis Seasonal allergies Home Medications ?Medication ?Instructions ?Recorded ?Last Taken ?Type topiramate 200 mg tablet 200 mg PO QHS headaches 12/26 Unknown History Handicap Placard #1 ea 05/03/20 Unknown Rx baclofen 10 mg tablet 10 mg PO TID 03/23/21 History walker (Ultra-Light Rollator misc) #1 ea 09/26/21 Unkn own Rx quetiapine 300 mg tablet (Seroquel) 300 mg PO QHS 02/07 09/28 Unknown History walker (Ultra-Light Rollator misc) #1 ea 08/10/22 Unkn own Rx hydroxychloroquine 200 mg tablet 200 mg PO BID 3 Unknown History Handicap Placard #1 ea 03/09/23 Unknown Rx wheelchair #1 ea 03/09/23 Unknown Rx carbamazepine 200 mg tablet 200 mg PO DAILY seizures 0 04/17/23 08/21/23 History fremanezumab-vfrm 225 mg/1.5 mL 225 mg subcut QMONTH 0 04/17/23 Unknown History subcutaneous auto-injector (Ajovy) nortriptyline 10 mg capsule 30 mg PO QHS 04/17/23 Unkn own History prazosin 2 mg capsule 4 mg PO QHS 04/17/23 Unknown History folic acid 1 mg tablet 1 mg PO DAILY 06/08/23 Unkno wn History quetiapine 400 mg tablet 400 mg PO QHS 06/08/23 Unkno wn History cholecalciferol (vitamin D3) 1,250 1,250 mcg PO QWEEK 08/31/23 Unknown History mcg (50,000 unit) capsule Rollator walker #1 ea 02/21/24 Unknown Rx buspirone 10 mg tablet 10 mg PO .qid 02/21/24 Unkno wn History epinephrine 0.3 mg/0.3 mL 0.3 mg (0.3 mL) IM Q5-15M ND N 02/22/24 Unknown Rx injection, auto-injector (EpiPen anaphylaxis #2 ea 2-Raymond) ubrogepant 100 mg tablet (Ubrelvy) 100 mg PO DAILY PRN migraine 04/04/24 Unknown Rx headache #10 tabs methotrexate sodium 2.5 mg tablet 25 mg PO TU 04/28/24 Unknown History psyllium seed (sugar) oral powder 1 tbsp PO .3x/wk Unknown History (Metamucil (sugar) oral powder) simvastatin 20 mg tablet 20 mg PO QPM #90 tabs Unknown Rx lactulose 10 gram/15 mL (15 mL) 15 ml PO TID #300 mL 0 07/09/24 Unknown Rx oral solution ondansetron 4 mg disintegrating 4 mg PO Q6H PRN nausea and 07/09/24 Unknown Rx tablet vomiting #60 tabs pantoprazole 40 mg tablet,delayed 40 mg PO DAILY #90 t abs 07/09/24 Unknown Rx release promethazine 25 mg tablet 25 mg PO BID PRN nausea and 07/09/24 Unknown Rx vomiting #30 tabs linaclotide 145 mcg capsule 145 mcg PO QDAY #90 caps 0 08/05/24 Unknown Rx (Linzess) prochlorperazine 25 mg rectal 25 mg ND QHS 14 days #14 ea 08/13/24 Unknown Rx suppository (Compazine) scopolamine base 1 mg over 3 days 1 patch transdermal Q3D PRN nausea 08/13/24 Unknown Rx transdermal patch and vomiting #10 ea prochlorperazine maleate 10 mg 10 mg PO Q8H PRN nausea and 08/15/24 Unknown Rx tablet (Compazine) vomiting #90 tabs gabapentin 600 mg tablet 600 mg PO TID nerve pain #90 tabs 08/20/24 Unknown Rx levetiracetam 1,000 mg tablet 1,000 mg PO BID 08/21/24 Unknown History Allergy/AdvReac Type Severity Reaction Status Date / Time venom-honey bee Allergy Severe severe Verified 08/21/24 10:31 venom-wasp Allergy Severe severe Verified 08/21/24 10:31 coconut Allergy Intermediate Hives Verified 08/21/24 10:31 doxycycline Allergy Intermediate Rash Verified 08/21/24 10:31 mushroom Allergy Intermediate Hives Verified 08/21/24 10:31 ciprofloxacin (From Cipro) Allergy Rash Verified 08/21/24 10:31 erythromycin base Allergy Anaphylaxis Verified 08/21/24 10:31 iodine Allergy Anaphylaxis Verified 08/21/24 10:31 latex Allergy Rash Verified 08/21/24 10:31 metronidazole (From Flagyl) Allergy Anaphylaxis Verified 08/21/24 10:31 naproxen (From Naprosyn) Allergy Anaphylaxis Verified 08/21/24 10:31 Penicillins Allergy Anaphylaxis Verified 08/21/24 10:31 shellfish derived Allergy Anaphylaxis Verified 08/21/24 10:31 lithium AdvReac Intermediate Mood Verified 08/21/24 10:31 changes adhesive AdvReac Mild BLISTERS Verified 08/21/24 10:31 sulfamethoxazole (From AdvReac Hives Verified 08/21/24 10:31 Bactrim) trimethoprim (From Bactrim) AdvReac Hives Verified 08/21/24 10:31 Family History Father Asthma Grandfather No problems noted. Grandmother Asthma Brother Lung cancer Diabetes Hypertension Grandfather Asthma Grandmother Asthma Hypertension Mother Diabetes Aunt Diabetes Son Seizures Asthma Surgical History (Updated 08/21/24 @ 10:48 by Amada Ching) History of repair of rotator cuff Hx of surgical procedure History of colonoscopy History of esophagogastroduodenoscopy (EGD) Hx of surgical procedure Status post left foot surgery S/P left knee surgery S/P umbilical hernia repair, follow-up exam History of bladder repair surgery History of spinal surgery History of appendectomy History of hysterectomy History of orthopedic surgery History of carpal tunnel surgery of right wrist Social History Smoking Status: Light Smoker (<10/day) alcohol intake: never substance use type: does not use caffeine: No what type of physical activity do you participate in: none Prior Cardiac Testing/Procedures Prior Cardiac Testing/Procedures: Echocardiogram (he estimated ejection fraction is 55 %. The global longitudinal strain = -16.5% (borderline). No evidence for diastolic dysfunction. No regional wall motion abnormalities noted.) Addt'l Information Additional Findings: NSR Recommendation Anesthesia Recommendation Anesthesia recommendation: OPTIMIZED for anesthesia
[2024-08-22] VITALS (11 sets, daily range): BP systolic 91–110; BP diastolic 46–69; PULSE 78–87; RESP 16–18; TEMP 36.2–37.7; O2SAT 92–98; BMI 30.5
--- NOTE | 2024-08-22 12:15 | PCM.PRE.AN2 ---
ASA Classification* ASA Classification ASA Classification: 3 Assessment & Plan Anesthesia* Anesthesia Assessment Anesthesia Assessment: Discussed sedation and/or anesthesia options, risks, benefits, and alternatives with patient/parents/legal guardian/POA. Questions invited. The patient/parents/legal guardian/POA seems to understand and agrees to proceed with anesthesia plan. Reviewed the physical assessment, medical history, allergy history and patient home medications list prior to surgery/procedure/anesthetic and documented any changes. Performed airway and anesthesia risk assessments. Anesthesia Type Anesthesia Type: MAC Anesthesia Focused Assessment* Airway Assessment Mouth opens: >3 cm Mallampati Score: II Focused Labs Anesthesia Preop lab: CBC WBC 4.1 K/mm3 (4.4-11.0) L 04/28/24 11:04/28/24 RBC 3.40 M/mm3 (4.2-5.4) L 04/28/24 11:24 04/28/24 Hgb 12.0 g/dL (12.0-15.0) 04/28/24 11:04/28/24 Hct 36.6 % (37-47) L 04/28/24 11:24 04/28/24 Plt Count 178 K/mm3 (150-450) 04/28/24 11:24 04/28/24 CHEMISTRY Potassium 3.7 mmol/L (3.5-5.1) 04/28/24 11:24 04/28/24 Sodium 142 mmol/L (136-145) 04/28/24 11:24 04/28/24 Magnesium 2.1 mg/dL (1.6-2.6) 02/06/24 06:14 02/06/24 BUN 11 mg/dL (7-18) 04/28/24 11:24 04/28/24 Creatinine 0.77 mg/dL (0.55-1.02) 04/28/24 11:04/28/24 Glucose 96 mg/dL (74-106) 04/28/24 11:04/28/24 TSH 1.050 uIU/mL (0.358-3.740) 04/28/24 11:23 04/28/24 COAG PT 12.7 SECONDS (11.7-14.9) 07/13/21 17:40 07/13/21 HCG, Quant 6 mIU/mL (1-3) H 02/02/22 17:44 02/02/22 Urine Test Negative Negative 12/07/22 15:45 12/07/22 Pre-Assessment Diagnosis/Proposed Procedure Planned Operative Procedure(s): EGD Anesthesia History Anesthesia History - clinical resource manager: Anesthesia History - clinical resource manager Hx Hospitalization No 08/21/24 10:37 Any Problems With Anesthesia Yes: ITCHING/N,V 08/21/24 10:37 Cholinesterase deficiency No 08/21/24 10:37 You/Your Family Experience No 08/21/24 10:37 fever (hyperthermia) with Relationship Recent Exposure to Contagious No 02/21/24 14:08 Disease Does patient have nerve Yes: TURN OFF FOR OR 08/21/24 10:37 stimulator Patient instructed to have device shut off --Does patient have Pacemaker or ICD? When Was Last Pacemaker Check QUESTION #4 FULL TEXT: You/Your Family Experience fever (hyperthermia) with Anesthesia Last Oral Intake Last Oral intake: Last Oral Intake NPO since Meds taken in AM with sips of water? 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 - clinical resource manager: PONV - clinical resource manager Female Yes 08/21/24 10:37 HX of Motion Sickness Yes 08/21/24 10:37 HX of N/V After Surgery Yes 08/21/24 10:37 Non-Smoker Yes 08/21/24 10:37 Duration of Surgery greater No 08/21/24 10:37 than 60 minutes Number of Risk Factors 4 08/21/24 10:37 PONV Score Severe Risk 08/21/24 10:37 Height & Weight Height & Weight: Anesthesia: Height & Weight Height 5 ft 7 in 04/28/24 10:58 Respiratory Assessment Respiratory Assessment - clinical resource manager: Respiratory Tract Infection Hx - clinical resource manager Hx Respiratory Tract Infection No 08/21/24 10:37 STOP Sleep Apnea STOP Sleep Apnea - clinical resource manager: STOP Sleep Apnea - clinical resource manager Hx Hypertension No 08/21/24 10:37 Hx Sleep Apnea No 08/21/24 10:37 CPAP BIPAP Do you snore loudly (louder No 08/21/24 10:37 than talking or can be heard Do you often feel tired/ No 08/21/24 10:37 fatigued/ sleepy during daytime? Has anyone observed you stop No 08/21/24 10:37 breathing during sleep? STOP Results Negative 08/21/24 10:37 QUESTION #5 FULL TEXT : Do you snore loudly (louder than talking or can be heard through closed doors)? 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 Specify any problems Hx of Preganancy in last 3 No 08/21/24 10:37 Months Nurse Filling Out Transfusion DSCHRIBER 08/21/24 10:37 & Questions: Date: 08/21/24 08/21/24 10:37 Time: 10:40 08/21/24 10:37 Patient unable to answer at this time (ie. confused, unrespo /Reproduction History /Reproductive History - clinical resource manager: /Reproductive Hx- clinical resource manager Hx Now No 08/21/24 10:37 Gestational Age (in weeks): EDC: Hx Hx Para Hx Section SAB No 08/21/24 10:37 Active Medications Active Medications: Current Medications Generic Name Dose Route Start Last Admin Trade Name Freq PRN Reason Stop Dose Admin Lactated Ringer's 1,000 mls @ 15 mls/hr 08/22/24 12:00 IV .Q48H LUKAS PFSH Medical History Esophagitis Spinal cord stimulator status Difficult intravenous access Esophageal dilatation Gastroparesis Chronic nausea Screening for thyroid disorder Galactorrhea Blurry vision GERD (gastroesophageal reflux disease) High cholesterol PTSD (post-traumatic stress disorder) History of stress test History of echocardiogram Cardiology follow-up encounter Chest pain Syncope Palpitations Hyperlipidemia Bradycardia Hematemesis of unknown cause Degenerative disc disease Superior glenoid labrum lesion of right shoulder Constipation Early satiety Rotator cuff injury Right shoulder pain Cough Nausea and vomiting Epigastric pain Flu vaccine need Lupus Debility Chronic lumbar radiculopathy Health care maintenance Hematemesis Vomiting Elevated antinuclear antibody (PAT) level Positive P-ANCA titer GI bleed Colon polyp Fatty liver Sludge in gallbladder Post-menopausal Anxiety Seizures Smoker Wheelchair dependent Wheel chair as ambulatory aid Foot pain, left Lower GI bleeding Dysphagia Elevated blood pressure reading Hypokalemia Abdominal pain UTI (urinary tract infection) Uterine cancer Cervical cancer Interstitial cystitis Acute cystitis Hematuria Flank pain Fibromyalgia Blurry vision, left eye Dizziness Headache Fall Postoperative pain Acute pain of left foot Postoperative wound infection Cellulitis Incisional hernia Gastroesophageal reflux disease Urinary frequency Urge incontinence Urinary urgency Migraines Lamar's palsy Depression with anxiety Ulcer Lipoma Stroke Seizures Osteoarthritis Neuropathy Kidney stones Irritable bowel syndrome Hives Hearing problem Carpal tunnel syndrome Arthritis Seasonal allergies Home Medications ?Medication ?Instructions ?Recorded ?Last Taken ?Type topiramate 200 mg tablet 200 mg PO QHS headaches 08/15/18 Unknown History Handicap Placard #1 ea 05/03/20 Unknown Rx baclofen 10 mg tablet 10 mg PO TID 03/23/21 08/21/23 History walker (Ultra-Light Rollator misc) #1 ea 09/26/21 Unknown Rx quetiapine 300 mg tablet (Seroquel) 300 mg PO QHS 02/22/22 Unknown History walker (Ultra-Light Rollator misc) #1 ea 08/10/22 Unknown Rx hydroxychloroquine 200 mg tablet 200 mg PO BID 08/15/22 Unknown History Handicap Placard #1 ea 03/09/23 Unknown Rx wheelchair #1 ea 03/09/23 Unknown Rx carbamazepine 200 mg tablet 200 mg PO DAILY seizures 04/17/23 08/21/23 History fremanezumab-vfrm 225 mg/1.5 mL 225 mg subcut QMONTH 04/17/23 Unknown History subcutaneous auto-injector (Ajovy) nortriptyline 10 mg capsule 30 mg PO QHS 04/17/23 Unknown History prazosin 2 mg capsule 4 mg PO QHS 04/17/23 Unknown History folic acid 1 mg tablet 1 mg PO DAILY 06/08/23 Unknown History quetiapine 400 mg tablet 400 mg PO QHS 06/08/23 Unknown History cholecalciferol (vitamin D3) 1,250 1,250 mcg PO QWEEK 08/31/23 Unknown History mcg (50,000 unit) capsule Rollator walker #1 ea 02/21/24 Unknown Rx buspirone 10 mg tablet 10 mg PO .qid 02/21/24 Unknown History epinephrine 0.3 mg/0.3 mL 0.3 mg (0.3 mL) IM Q5-15M PRN 02/22/24 Unknown Rx injection, auto-injector (EpiPen anaphylaxis #2 ea 2-Raymond) ubrogepant 100 mg tablet (Ubrelvy) 100 mg PO DAILY PRN migraine 04/04/24 Unknown Rx headache #10 tabs methotrexate sodium 2.5 mg tablet 25 mg PO TU 04/28/24 Unknown History psyllium seed (sugar) oral powder 1 tbsp PO .3x/wk 04/28/24 Unknown History (Metamucil (sugar) oral powder) simvastatin 20 mg tablet 20 mg PO QPM #90 tabs 04/30/24 Unknown Rx lactulose 10 gram/15 mL (15 mL) 15 ml PO TID #300 mL 07/09/24 Unknown Rx oral solution ondansetron 4 mg disintegrating 4 mg PO Q6H PRN nausea and 07/09/24 Unknown Rx tablet vomiting #60 tabs pantoprazole 40 mg tablet,delayed 40 mg PO DAILY #90 tabs 07/09/24 Unknown Rx release promethazine 25 mg tablet 25 mg PO BID PRN nausea and 07/09/24 Unknown Rx vomiting #30 tabs linaclotide 145 mcg capsule 145 mcg PO QDAY #90 caps 08/05/24 Unknown Rx (Linzess) prochlorperazine 25 mg rectal 25 mg IA QHS 14 days #14 ea 08/13/24 Unknown Rx suppository (Compazine) scopolamine base 1 mg over 3 days 1 patch transdermal Q3D PRN nausea 08/13/24 Unknown Rx transdermal patch and vomiting #10 ea prochlorperazine maleate 10 mg 10 mg PO Q8H PRN nausea and 08/15/24 Unknown Rx tablet (Compazine) vomiting #90 tabs gabapentin 600 mg tablet 600 mg PO TID nerve pain #90 tabs 08/20/24 Unknown Rx levetiracetam 1,000 mg tablet 1,000 mg PO BID 08/21/24 Unknown History Allergy/AdvReac Type Severity Reaction Status Date / Time venom-honey bee Allergy Severe severe Verified 08/21/24 10:31 venom-wasp Allergy Severe severe Verified 08/21/24 10:31 coconut Allergy Intermediate Hives Verified 08/21/24 10:31 doxycycline Allergy Intermediate Rash Verified 08/21/24 10:31 mushroom Allergy Intermediate Hives Verified 08/21/24 10:31 ciprofloxacin (From Cipro) Allergy Rash Verified 08/21/24 10:31 erythromycin base Allergy Anaphylaxis Verified 08/21/24 10:31 iodine Allergy Anaphylaxis Verified 08/21/24 10:31 latex Allergy Rash Verified 08/21/24 10:31 metronidazole (From Flagyl) Allergy Anaphylaxis Verified 08/21/24 10:31 naproxen (From Naprosyn) Allergy Anaphylaxis Verified 08/21/24 10:31 Penicillins Allergy Anaphylaxis Verified 08/21/24 10:31 shellfish derived Allergy Anaphylaxis Verified 08/21/24 10:31 lithium AdvReac Intermediate Mood Verified 08/21/24 10:31 changes adhesive AdvReac Mild BLISTERS Verified 08/21/24 10:31 sulfamethoxazole (From AdvReac Hives Verified 08/21/24 10:31 Bactrim) trimethoprim (From Bactrim) AdvReac Hives Verified 08/21/24 10:31 Family History Father Asthma Grandfather No problems noted. Grandmother Asthma Brother Lung cancer Diabetes Hypertension Grandfather Asthma Grandmother Asthma Hypertension Mother Diabetes Aunt Diabetes Son Seizures Asthma Surgical History History of repair of rotator cuff Hx of surgical procedure History of colonoscopy History of esophagogastroduodenoscopy (EGD) Hx of surgical procedure Status post left foot surgery S/P left knee surgery S/P umbilical hernia repair, follow-up exam History of bladder repair surgery History of spinal surgery History of appendectomy History of hysterectomy History of orthopedic surgery History of carpal tunnel surgery of right wrist Social History Smoking Status: Light Smoker (<10/day) alcohol intake: never substance use type: does not use caffeine: No what type of physical activity do you participate in: none Review of Systems (Anesthesia) ROS Narrative System reviewed and no additional complaints, except as documented.
[2024-08-22] MEDS: Lactated Ringers 1,000 ML 15 ML IV (12:28)
--- NOTE | 2024-08-22 12:56 | PCM.HP.STD ---
HPI - General General Date of Admission: 08/22/24 Date of Service: 08/22/24 Chief Complaint: Abdominal pain HPI Narrative CHARLOTTE VASQUEZ, is a 48 F who presents for the evaluation of abdominal pain. *BGI established .. with abdominal and rectal pain occurring 3-4/week with intermittent presentation of rectal bleeding. Dysphagia with food sticking in her throat. EGD and colonoscopy 3.. EGD LA Grade A esophagitis; gastritis; duodenitis Colonoscopy Congestion throughout colon; 5mm sessile TA polyp. CT abd/pel 3.3.22 (ED) gallbladder sludge. OV 4.6.22 with ongoing symptoms. Start dicyclomine Biochemical ESR, CHARISSA, ferritin, ceruloplasmin, haptoglobin, ammonia, A1c, GGT, AMA, ASM, HIV, hepatitis without pertinent abnormality. AST 16-ALT 21-AP H141, ammonia H38, CRP H4.92, ANCA H1:320, Qtc36uv H3 HIDA 4.18.22 EF 70% US RUQ 3.10.22 hepatic measurement 17.8cm with fatty infiltration. Elastography 4.12. hepatic stiffness 3.7kPa Capsule endoscopy 4.20.22 multiple AVM and erosions in stomach with signs of bleeding; fissure 32min into study. OV 5.5.22 with ongoing symptoms of loose stools, abdominal/epigastric pain, emesis. Biochemical catecholamines, gastrin, amylase, CPK, ANCA without pertinent abnormality chromogranin A H109.1, scl-70 ab H3.2, IgG1 H963 Urine porhyrins not performed. EGD 6.. ectopic gastric mucosa; LA Grade B esophagitis Rheumatology OV 7.. PAT positive with inflammatory arthritis. Likely lupus causing inflammatory arthritis, recommended plaquenil. Did not keep f/u apt. OV 11.16.22 ongoing abdominal pain Stool fecal fat, elastase not performed US RUQ 3.6.23 (ED) hepatic measurement 16.7cm with normal echogenicity. OV 4.14.23 with ongoing symptoms. Start amitiza and reglan. No relief of constipation with Metamucil, miralax or Colace. CT abd/pel 4.18.23 (ED) without acute/chronic finding. Gastric emptying study 5.. 43.78minutes (12-56). EGD 6..23 EOE, no path changes; intrinsic stenosis, Savary 54F; small hiatal hernia; pyloric stenosis, TTS 15mm; duodenitis OV 4.30.24- Today reports no change in her symptoms. Still varies between diarrhea and constipation. Patient states that her pharmacy never gave her the Amitiza or reglan. Still having dysphagia. Patient is taking pantoprazole. EGD 24- Benign-appearing esophageal stenosis, erythematous mucosa in the pyloris. Path: Chronic pyloric inflammation Colon- Congested mucosa in the sigmoid and terminal ileum OV 1.2.25- Patient reports increased in constipation, abdominal pain, bloating and nausea the last couple months. States she was only having a BM a few times a month. Saw her PCP 03/21 and was prescribed Lactulose. Takes it 2-3 times a day. Has been able to have a BM 3-4 times a week. Very little change in abdominal pain/ bloating. OV 4.2.25 pt reports continued symptoms of daily N/V, HB, and abd pain that comes and goes. Pt reports worsening difficulty swallowing and states that she has a lot of pain when stuff gets stuck. Gary Diaz DO [facility] Medical History Esophagitis Spinal cord stimulator status Difficult intravenous access Esophageal dilatation Gastroparesis Chronic nausea Screening for thyroid disorder Galactorrhea Blurry vision GERD (gastroesophageal reflux disease) High cholesterol PTSD (post-traumatic stress disorder) History of stress test History of echocardiogram Cardiology follow-up encounter Chest pain Syncope Palpitations Hyperlipidemia Bradycardia Hematemesis of unknown cause Degenerative disc disease Superior glenoid labrum lesion of right shoulder Constipation Early satiety Rotator cuff injury Right shoulder pain Cough Nausea and vomiting Epigastric pain Flu vaccine need Lupus Debility Chronic lumbar radiculopathy Health care maintenance Hematemesis Vomiting Elevated antinuclear antibody (PAT) level Positive P-ANCA titer GI bleed Colon polyp Fatty liver Sludge in gallbladder Post-menopausal Anxiety Seizures Smoker Wheelchair dependent Wheel chair as ambulatory aid Foot pain, left Lower GI bleeding Dysphagia Elevated blood pressure reading Hypokalemia Abdominal pain UTI (urinary tract infection) Uterine cancer Cervical cancer Interstitial cystitis Acute cystitis Hematuria Flank pain Fibromyalgia Blurry vision, left eye Dizziness Headache Fall Postoperative pain Acute pain of left foot Postoperative wound infection Cellulitis Incisional hernia Gastroesophageal reflux disease Urinary frequency Urge incontinence Urinary urgency Migraines Lamar's palsy Depression with anxiety Ulcer Lipoma Stroke Seizures Osteoarthritis Neuropathy Kidney stones Irritable bowel syndrome Hives Hearing problem Carpal tunnel syndrome Arthritis Seasonal allergies Home Medications ?Medication ?Instructions ?Recorded ?Last Taken ?Type topiramate 200 mg tablet 200 mg PO QHS headaches 08/15/18 08/21/24 History Handicap Placard #1 ea 05/03/20 Unknown Rx baclofen 10 mg tablet 10 mg PO TID 03/23/21 08/21/24 History walker (Ultra-Light Rollator misc) #1 ea 09/26/21 Unknown Rx quetiapine 300 mg tablet (Seroquel) 300 mg PO QHS 02/22/22 08/21/24 History walker (Ultra-Light Rollator misc) #1 ea 08/10/22 Unknown Rx hydroxychloroquine 200 mg tablet 200 mg PO BID 08/15/22 08/22/24 History Handicap Placard #1 ea 03/09/23 Unknown Rx wheelchair #1 ea 03/09/23 Unknown Rx carbamazepine 200 mg tablet 200 mg PO DAILY seizures 04/17/23 08/22/24 History fremanezumab-vfrm 225 mg/1.5 mL 225 mg subcut QMONTH 04/17/23 Unknown History subcutaneous auto-injector (Ajovy) nortriptyline 10 mg capsule 30 mg PO QHS 04/17/23 08/21/24 History prazosin 2 mg capsule 4 mg PO QHS 04/17/23 08/21/24 History folic acid 1 mg tablet 1 mg PO DAILY 06/08/23 08/21/24 History quetiapine 400 mg tablet 400 mg PO QHS 06/08/23 08/21/24 History cholecalciferol (vitamin D3) 1,250 1,250 mcg PO QWEEK 08/31/23 08/21/24 History mcg (50,000 unit) capsule Rollator walker #1 ea 02/21/24 Unknown Rx buspirone 10 mg tablet 10 mg PO .qid 02/21/24 08/22/24 History epinephrine 0.3 mg/0.3 mL 0.3 mg (0.3 mL) IM Q5-15M PRN 02/22/24 Unknown Rx injection, auto-injector (EpiPen anaphylaxis #2 ea 2-Raymond) ubrogepant 100 mg tablet (Ubrelvy) 100 mg PO DAILY PRN migraine 04/04/24 Unknown Rx headache #10 tabs methotrexate sodium 2.5 mg tablet 25 mg PO TU 04/28/24 08/21/24 History psyllium seed (sugar) oral powder 1 tbsp PO .3x/wk 04/28/24 08/21/24 History (Metamucil (sugar) oral powder) simvastatin 20 mg tablet 20 mg PO QPM #90 tabs 04/30/24 08/21/24 Rx lactulose 10 gram/15 mL (15 mL) 15 ml PO TID #300 mL 07/09/24 08/21/24 Rx oral solution ondansetron 4 mg disintegrating 4 mg PO Q6H PRN nausea and 07/09/24 08/22/24 Rx tablet vomiting #60 tabs pantoprazole 40 mg tablet,delayed 40 mg PO DAILY #90 tabs 07/09/24 08/22/24 Rx release promethazine 25 mg tablet 25 mg PO BID PRN nausea and 07/09/24 08/21/24 Rx vomiting #30 tabs linaclotide 145 mcg capsule 145 mcg PO QDAY #90 caps 08/05/24 08/21/24 Rx (Linzess) prochlorperazine 25 mg rectal 25 mg DC QHS 14 days #14 ea 08/13/24 08/21/24 Rx suppository (Compazine) scopolamine base 1 mg over 3 days 1 patch transdermal Q3D PRN nausea 08/13/24 08/22/24 Rx transdermal patch and vomiting #10 ea prochlorperazine maleate 10 mg 10 mg PO Q8H PRN nausea and 08/15/24 08/22/24 Rx tablet (Compazine) vomiting #90 tabs gabapentin 600 mg tablet 600 mg PO TID nerve pain #90 tabs 08/20/24 08/22/24 Rx levetiracetam 1,000 mg tablet 1,000 mg PO BID 08/21/24 08/22/24 History Allergy/AdvReac Type Severity Reaction Status Date / Time venom-honey bee Allergy Severe severe Verified 08/22/24 12:21 venom-wasp Allergy Severe severe Verified 08/22/24 12:21 coconut Allergy Intermediate Hives Verified 08/22/24 12:21 doxycycline Allergy Intermediate Rash Verified 08/22/24 12:21 mushroom Allergy Intermediate Hives Verified 08/22/24 12:21 ciprofloxacin (From Cipro) Allergy Rash Verified 08/22/24 12:21 erythromycin base Allergy Anaphylaxis Verified 08/22/24 12:21 iodine Allergy Anaphylaxis Verified 08/22/24 12:21 latex Allergy Rash Verified 08/22/24 12:21 metronidazole (From Flagyl) Allergy Anaphylaxis Verified 08/22/24 12:21 naproxen (From Naprosyn) Allergy Anaphylaxis Verified 08/22/24 12:21 Penicillins Allergy Anaphylaxis Verified 08/22/24 12:21 shellfish derived Allergy Anaphylaxis Verified 08/22/24 12:21 lithium AdvReac Intermediate Mood Verified 08/22/24 12:21 changes adhesive AdvReac Mild BLISTERS Verified 08/22/24 12:21 sulfamethoxazole (From AdvReac Hives Verified 08/22/24 12:21 Bactrim) trimethoprim (From Bactrim) AdvReac Hives Verified 08/22/24 12:21 Family History Father Asthma Grandfather No problems noted. Grandmother Asthma Brother Lung cancer Diabetes Hypertension Grandfather Asthma Grandmother Asthma Hypertension Mother Diabetes Aunt Diabetes Son Seizures Asthma Surgical History History of repair of rotator cuff Hx of surgical procedure History of colonoscopy History of esophagogastroduodenoscopy (EGD) Hx of surgical procedure Status post left foot surgery S/P left knee surgery S/P umbilical hernia repair, follow-up exam History of bladder repair surgery History of spinal surgery History of appendectomy History of hysterectomy History of orthopedic surgery History of carpal tunnel surgery of right wrist Social History Smoking Status: Light Smoker (<10/day) alcohol intake: never substance use type: does not use caffeine: No what type of physical activity do you participate in: none ROS Constitutional Constitutional: Denies fatigue, fever(s), poor appetite, weight gain or weight loss Gastrointestinal Gastrointestinal: Denies belching, bloating, change in bowel habits, change in stool character, chewing difficulty, coffee ground emesis, constipation, cramping, diarrhea, dyspepsia, dysphagia, early satiety, excessive flatus, fecal incontinence, heartburn, hematemesis, hematochezia, hemorrhoids, loose stools, melena, nausea, odynophagia, rectal bleeding, tenesmus, vomiting or weight changes Vital Signs Vital Signs Vital Signs: 08/22/24 12:23 08/22/24 12:23 Temperature 99.8 F H Temperature Source Temporal Pulse Rate 87 Respiratory Rate 16 Respiratory Pattern Normal Blood Pressure 110/64 Blood Pressure Mean 79 Blood Pressure Source Monitor Blood Pressure Position Semi-Fowlers Blood Pressure Location Left Arm Pulse Ox 98 Oxygen Delivery Method Room Air Weight Weight: 195 lb Body Mass Index (BMI) 30.5 Physical Exam Const alert, oriented x3, no apparent distress and healthy appearing General Appearance: cooperative GI normal to inspection, nondistended, normoactive bowel sounds, soft to palpation, non-tender and non-distended Percussion: normal to percussion Rectal Exam: deferred Assessment & Plan Assessment/Plan (1) Chronic nausea: (2) Left upper quadrant abdominal pain: PLAN: Affect: normal affect Assessment and Plan Assessment and Plan (1) Nausea and vomiting: (2) Epigastric pain: Status: active Plan: 46 yr old female with ongoing RUQ/epigstric/retrosternal pain with chronic nausea and vomiting. Complicated medical hx. Test for EPI, chronic pancreatitis--fecal elastase and fecal fats; I will contact her with results and see how she is doing on the Creon. Consider MRI/MRCP--can't do due to metal in feet Samples of Creon 1 w/ snack, 2 w/ meals Consider gastroparesis from meds such as topiramate, consider gastric emptying study Takes multiple meds for nausea and vomiting but still vomiting multiple times per week, causing bleeding. Has had 2 EGDs this year, consider when another when will be needed. Does she have a touch up carver? Has dx of lupus. ?scleroderma per labs we did. Rheum disorder may be causing esophageal dysmotility, consider esophageal manometry. f/u one month (3) Nausea and vomiting: Status: Inactive Qualifiers: Vomiting type: bilious vomiting Qualified Code(s): R11.14 - Bilious vomiting Plan: Her nausea vomiting is multifactorial. However she has been experiencing some hematemesis. She will get a stat CBC along with iron studies today as previously ordered by touch up carver and we will schedule for upper endoscopy. (4) Constipation: Status: Acute Qualifiers: Constipation type: slow transit constipation Qualified Code(s): K59.01 - Slow transit constipation Plan: From her pelvic CT scan it looks like she has pelvic floor dysfunction due to previous trauma as a child we will give her antibiotics also because I think she is experiencing a stercoral ulcer. She is on immunosuppressive's with can delay her healing. I will give her doxycycline as she has allergies to ciprofloxacin penicillins and Bactrim. She will also need to undergo colonoscopy to evaluate her lower GI tract. Pending on her examination under anesthesia she may need referral to colorectal surgery. Originally had wanted to get an MRI of the pelvis to look for signs of abnormalities of her pelvic floor. However she has a back stimulator and that cannot be done. Recommend Lactulose along with fiber in the form of Metamucil once a day.. Medications: Refilled lactulose 15 mL PO TID 300 mL 0RF pantoprazole 40 mg PO DAILY 90 tabs 1RF ondansetron 4 mg PO Q6H PRN 60 tabs 1RF nausea and vomiting promethazine 25 mg PO BID PRN 30 tabs 1RF nausea and vomiting
--- NOTE | 2024-08-22 13:00 | EGD_PTH ---
PATIENT: CHARLOTTE VASQUEZ LOC: EN U#:[id number] AGE/SX: 48/F ROOM: RE08/22/[address]: Dr. Gary Diaz DO : 1975 BED: DIS: 08/22/2024 SPEC #: [id number] RECD: 08/22/24 17:25 STATUS: RAMON REBrent #: [id number] CHERYL: 08/22/24 13:[address]: Gary Diaz DEPT: SURGICAL PATHOLOGY RECD BY: Scarlett Biswas ENTERED: 08/25/24 07:41 SP TYPE: EGD BIOPSY ADELFO DR: Dr. Gayle Munoz MD Tissues: A - Duodenum, NOS B - Gastric mucous membrane Procedures: Surgery Specimen Level IV HEADER OPERATION: EGD with biopsy PRE-OP DIAGNOSIS: Chronic nausea, left upper quadrant abdominal pain TISSUE SUBMITTED: A- Duodenum biopsy, B- Gastric body biopsy MICROSCOPIC DIAGNOSIS A. Small bowel, duodenum, biopsy: Mild villous blunting with gastric mucin cell metaplasia and mild Michelle gland hyperplasia. Negative for increased intraepithelial lymphocytes. B. Stomach, gastric body, biopsy: Antral mucosa with features of reactive gastropathy. Negative for Helicobacter-like organisms (H&E). MICROSCOPIC DESCRIPTION Slides are reviewed. GROSS DESCRIPTION A. Received in formalin in a container labeled with the patient's name, date of , and duodenum is a 0.4 x 0.4 x 0.3 cm fragment of doyle-pink mucosal tissue. Submitted in toto in A1. B. Received in formalin in a container labeled with the patient's name, date of , and gastric body are 2 doyle-pink fragments of mucosal tissue measuring 0.3 x 0.2 x 0.2 cm and 0.4 x 0.3 x 0.3 cm. Submitted in toto in B1. [facility] 08-25-2024 CPT:12635q1
--- NOTE | 2024-08-22 13:27 | OP.CCLET_ITS ---
08/22/2024 Gayle Munoz MD [address] [place] [address] [place] [address] Re : Upper GI endoscopy procedure for Crys Franks Dear Dr. Munoz This procedure was performed on Thursday, August 22, 2024. My impressions and recommendations are as follows: Impressions : - Normal esophagus. - Erosive gastropathy with no stigmata of recent bleeding. Biopsied. - Chronic duodenitis. Biopsied. Recommendations : - Discharge patient to home. - Resume previous diet. - Continue present medications. - Await pathology results. My findings are described in the full procedure note, which is enclosed. If I can be of further assistance, please feel free to contact me at . Sincerely, Gary Friend, 08/22/2024 1:27:22 PM This report has been signed electronically.
--- NOTE | 2024-08-22 13:27 | OP.EGD_ITS ---
Patient Name: Crys Franks Procedure Date: 08/22/2024 1:05 PM Date of : 1975 Age: 48 Procedure: Upper GI endoscopy Indications: Epigastric abdominal pain, Functional Dyspepsia, Failure to respond to medical treatment Providers: Gary Diaz DO Referring MD: Gayle Munoz MD Medicines: Monitored Anesthesia Care Patient Profile: This is a 48 year old female. Refer to note in patient chart for documentation of history and physical. Patient has symptoms of acute abdominal cramping, acute abdominal distention, acute epigastric abdominal pain, chronic epigastric abdominal pain and chronic nausea. Complications: No immediate complications. Procedure: Pre-Anesthesia Assessment: - Prior to the procedure, a History and Physical was performed, and patient medications and allergies were reviewed. The patient is competent. The risks and benefits of the procedure and the sedation options and risks were discussed with the patient. All questions were answered and informed consent was obtained. Patient identification and proposed procedure were verified by the physician in the pre-procedure area. Mental Status Examination: alert and oriented. Airway Examination: normal oropharyngeal airway and neck mobility. Respiratory Examination: clear to auscultation. CV Examination: normal. Prophylactic Antibiotics: The patient does not require prophylactic antibiotics. Prior Anticoagulants: The patient has taken no anticoagulant or antiplatelet agents except for NSAID medication. ASA Grade Assessment: II - A patient with mild systemic disease. After reviewing the risks and benefits, the patient was deemed in satisfactory condition to undergo the procedure. The anesthesia plan was to use monitored anesthesia care (MAC). Immediately prior to administration of medications, the patient was re-assessed for adequacy to receive sedatives. The heart rate, respiratory rate, oxygen saturations, blood pressure, adequacy of pulmonary ventilation, and response to care were monitored throughout the procedure. The physical status of the patient was re-assessed after the procedure. After obtaining informed consent, the endoscope was passed under direct vision. Throughout the procedure, the patient's blood pressure, pulse, and oxygen saturations were monitored continuously. The gastroscope was introduced through the mouth, and advanced to the third part of the duodenum. Small bowel enteroscopy was deemed necessary. The upper GI endoscopy was accomplished without difficulty. The patient tolerated the procedure well. Scope In: 1:19:07 PM Scope Out: 1:21:25 PM Total Procedure Duration Time 0 hours 2 minutes 18 seconds Findings: The examined esophagus was normal. A few localized 5 mm erosions with no stigmata of recent bleeding were found in the gastric body. Biopsies were taken with a cold forceps for histology. Verification of patient identification for the specimen was done. Biopsies were taken with a cold forceps for Helicobacter pylori testing. Verification of patient identification for the specimen was done. Estimated blood loss was minimal. Diffuse moderate inflammation characterized by erosions, erythema, friability and granularity was found in the entire duodenum. Biopsies were taken with a cold forceps for histology. Verification of patient identification for the specimen was done. Estimated blood loss was minimal. Impression: - Normal esophagus. - Erosive gastropathy with no stigmata of recent bleeding. Biopsied. - Chronic duodenitis. Biopsied. Recommendation: - Discharge patient to home. - Resume previous diet. - Continue present medications. - Await pathology results. Procedure Code(s): --- Professional --- 96574, Small intestinal endoscopy, enteroscopy beyond second portion of duodenum, not including ileum; with biopsy, single or multiple CPT copyright 2021 [employer]. All rights reserved. The codes documented in this report are preliminary and upon gamma ray operator review may be revised to meet current compliance requirements. Gary Diaz DO 08/22/2024 1:27:22 PM This report has been signed electronically. Number of Addenda: 0 Note Initiated On: 08/22/2024 1:05 PM
--- NOTE | 2024-08-22 13:36 | PCM.POST.ANE ---
Anesthesia: Postop Eval I Current Vital Signs Temperature: 97.8 F Pulse Rate: 86 Blood Pressure: 101/52 Respiratory Rate: 16 Pulse Ox: 95 Oxygen Delivery Method: Nasal Cannula Oxygen Flow Rate (L/min): 2 Assessment Airway patent: Yes Spontaneous unlabored respirations: Yes Mental status: Asleep nausea: No Vomiting: No Anesthesia Complication: No Fluid Hydration Crystalloid volume administer (ml): 300 Total IV fluid infused: 300 Progress Note Anesthesia document: Postop Eval 1 completed: Yes
[2024-08-22] MEDS: Mag Hydrox/Al Hydrox/Simeth 30 ML UDC PO (14:09)
--- NOTE | 2024-08-22 14:26 | EKG12_ITS ---
Test Reason : CP Blood Pressure : */* mmHG Vent. Rate : 73 BPM Atrial Rate : 73 BPM P-R Int : 164 ms QRS Dur : 90 ms QT Int : 398 ms P-R-T Axes : 41 51 43 degrees QTcB Int : 438 ms Normal sinus rhythm Normal ECG When compared with ECG of 14-Feb-2024 12:50, No significant change was found Confirmed by DHARMESH PLUNKETT, WELLINGTON ([id number]), editor managing newspaper ATIF CINTRON ([id number]) on 08/25/2024 9:46:52 AM Referred By: Gayle Munoz Confirmed By: WELLINGTON BARROSO MD
== END 2024-08-22 14:40 | disposition home or self-care (01) ==
LOC: EN 10:31 → AC 12:00
PROVIDERS: PCP Internal Medicine; Referring Provider Internal Medicine; Visit Provider Internal Medicine Gastroenterology
PROC: 0DJ08ZZ Inspection of Upper Intestinal Tract, Via Natural or Artificial Opening Endoscopic (ICD-10-PCS; CPT 43235; principal; 2024-08-22 12:55)
DX: K31.A0 Gastric intestinal metaplasia, unspecified (principal); K29.80 Duodenitis without bleeding; Z86.0100 Personal history of colon polyps, unspecified; E78.00 Pure hypercholesterolemia, unspecified; K21.9 Gastro-esophageal reflux disease without esophagitis; Z79.899 Other long term (current) drug therapy; F17.200 Nicotine dependence, unspecified, uncomplicated; K22.10 Ulcer of esophagus without bleeding
CPT/HCPCS: 43239; 88305; 93005; J2405

== ENCOUNTER → 2024-08-27 | Outpatient (CLI) | payer MEDICAID, SELFPAY ==
--- NOTE | 2024-08-27 14:45 | CT_ITS ---
PROCEDURE: CT CHEST, ABD, PELVIS WO CONT 08/27/2024 REASON FOR EXAM: ABD PAIN, HX OF GASTRIC ULCER, WEIGHT LOSS TECHNIQUE: Chest, abdomen and pelvis CT without intravenous contrast. Coronal and Sagittal reconstruction series were provided. One or more dose reduction techniques were used (e.g., Automated exposure control, adjustment of the mA and/or kV according to patient size, use of iterative reconstruction technique. RADIATION DOSE SUMMARY: CTDlvol: 15.5 mGy DLP: 1434.75 mGycm COMPARISON: None FINDINGS: CT CHEST: Hardware: None Lymph nodes: Small benign-appearing mediastinal lymph nodes. Heart and Vasculature: The heart is nonenlarged. Atherosclerotic calcifications of the thoracic aorta. Thoracic aorta and pulmonary arteries have normal contours; noncontrast technique limits evaluation. Coronary Artery Calcifications: Absent Lungs and Airways: Unremarkable Pleura: Unremarkable Bones: Degenerative changes of the thoracic spine. CT ABDOMEN / PELVIS: Noncontrast technique limits evaluation of the abdominal and pelvic viscera. Liver: Normal size. No mass. Gallbladder: Surgically absent. Spleen: Normal size. Pancreas: Normal size without evidence of mass surrounding inflammation or ductal dilation. Adrenals: Unremarkable Kidneys: Normal renal sizes. No hydronephrosis. Bladder: Unremarkable Reproductive Organs: Prior hysterectomy. Adnexal regions are unremarkable. Bowel: Unremarkable Appendix: The appendix is not identified. There is no inflammatory process identified in the right lower quadrant to suggest appendicitis. Lymph nodes: Unremarkable Vasculature: Mild diffuse atherosclerotic calcifications are noted. Peritoneum / Retroperitoneum: Unremarkable Bones: Degenerative changes of the spine. CT/CT Chest, Abd, Pelvis WO Cont IMPRESSION: No acute abnormality is seen. Reading Location: [place] [id number]
== END | disposition home or self-care (01) ==
LOC: CT 14:31
PROVIDERS: PCP Internal Medicine; Visit Provider Internal Medicine Gastroenterology
DX: R10.12 Left upper quadrant pain (principal); R11.0 Nausea; Z87.11 Personal history of peptic ulcer disease; R63.4 Abnormal weight loss
CPT/HCPCS: 71250; 74176

== ENCOUNTER → 2024-09-19 | Outpatient (CLI) | payer MEDICAID, SELFPAY ==
--- NOTE | 2024-09-19 09:58 | NM_ITS ---
PROCEDURE: HEPATOBILLIARY IMAGING 09/19/2024 REASON FOR EXAM: ABDOMINAL PAIN TECHNIQUE: Intravenous Choletec with planar imaging of the abdomen. RADIOPHARMACEUTICAL: 6 mCi of mebrofenin COMPARISON: None FINDINGS: There is good uptake of the radiopharmaceutical by the liver normal excretion into the extrahepatic biliary ducts and proximal small bowel. The gallbladder is not visualized up to 2 hours. NM/Hepatobilliary Imaging IMPRESSION: Nonvisualization of the gallbladder up to 2 hours following the injection of th e radiopharmaceutical. Reading Location: [id number]
== END | disposition home or self-care (01) ==
LOC: NM 09:46
PROVIDERS: PCP Internal Medicine; Referring Provider Internal Medicine Gastroenterology; Visit Provider Internal Medicine Gastroenterology
DX: R10.9 Unspecified abdominal pain (principal)
CPT/HCPCS: 78226; A9537

== ENCOUNTER 2024-09-24 13:16 | Emergency (ER) | payer MEDICAID, SELFPAY ==
[2024-09-24 13:17] VITALS: BP 108/52; PULSE 87; RESP 17; TEMP 37.1; O2SAT 98; BMI 28.6
[2024-09-24 14:10] LABS: Absolute Lymphocyte Count 1.55 X10^3/uL (0.83-4.51); Absolute Neutrophil Count 1.7 X10^3/uL (2.0-7.7); Basophil# 0.02 X10^3/uL; Basophil% 0.5 % (0-1); Eosinophil# 0.12 X10^3/uL; Eosinophils% 3.3 % (0-5); Hematocrit 31.2 % (37-47); Hemoglobin 10.8 g/dL (12.0-15.0); Lymphocyte # 1.55 X10^3/ul (0.83-4.51); Lymphocyte % 42.3 % (19-41); Mean Corp Hgb Conc 34.6 g/dL (32-36); Mean Corpuscular Hgb 36.2 pg (27.0-32.0); Mean Corpuscular Volume 104.7 fL (81-99); Mean Platelet Vol. 11.2 fl (6.2-12.0); Monocyte# 0.28 X10^3/uL; Monocyte% 7.7 % (0-10); NRBC Flagged by Analyzer 0 % (0-5); Neutrophil # 1.68 X10^3/uL (2.7-7.7); Neutrophil % 45.9 % (47-70); Platelet Count 164 K/mm3 (150-450); RBC Distribution Width CV 13.1 % (11.6-14.6); RBC Distribution Width SD 49.3 fl (35.1-43.9); Red Blood Count 2.98 M/mm3 (4.2-5.4); White Blood Count 3.7 K/mm3 (4.4-11.0)
[2024-09-24 14:37] LABS: AST(SGOT) 20 U/L (<=31); Alanine Aminotransfer ALT/SGPT 12 U/L (<=34); Albumin, Serum 4.1 g/dL (3.5-5.0); Alkaline Phosphatase 106 U/L (35-104); Anion Gap 11 (5-15); BUN 10 mg/dL (4-19); Bilirubin, Direct 0.11 mg/dL (0.00-0.30); Calcium,Total 8.7 mg/dL (7.6-11.0); Carbon Dioxide 22.2 mmol/L (21.0-32.0); Chloride 107 mmol/L (98-108); Creatinine, Serum 0.86 mg/dL (0.70-1.20); EST Glomerular Filtration Rate 83 (>60); Estimated Creatinine Clearance 88.61 ml/min (50-250); Globulin 2.7 g/dL (2.2-4.2); Glucose 91 mg/dL (70-99); Lipase 16 U/L (13-75); Potassium 3.4 mmol/L (3.3-5.1); Protein, Total 6.8 g/dL (5.9-8.4); Sodium Level 140 mmol/L (133-145)
[2024-09-24] MEDS: 0.9% Normal Saline (1000mL) 1,000 ML 999 ML IV (14:46)
[2024-09-24] MEDS: Morphine 4 MG/ML Syringe IV ×2 (14:46→17:57)
--- NOTE | 2024-09-24 15:01 | EX.ED.DYSGE1 ---
HPI History of Present Illness Chief Complaint: Abd Pain Detail of Chief Complaint: Severe right upper quadrant pain that started 2 days ago. Informant: patient Onset/Context/Timing Onset: Days Context: Sudden Onset Timing: Continuous Quality: Severe colicky right upper quadrant pain Location: Right upper quadrant pain radiating through to her back Current Severity: Severe Maximum Severity: Severe Worsened by: Anytime she attempts to eat or drink anything Relieved by: Nothing Associated Symptoms Associated Symptoms: Nausea and vomiting Narrative Narrative: Patient is a 49-year-old woman. She has undergone workup for right upper quadrant pain. She had an ultrasound that was performed on November 29, 2023 that was unremarkable. She has had 2 CAT scans which revealed normal gallbladder. She had a HIDA scan on September 2024 which revealed cholecystitis based on interpretation. Spoke with Dr. Bernardo radiologist to confirm meaning of the HIDA scan. Patient denies fever, chills night sweats. Patient does have history of renal calculi. She denies pain rating to her groin. She denies dysuria, frequency, urgency or hematuria. Patient denies bruising. Denies trauma. Patient denies respiratory or cardiac symptoms. Patient had recent EGD performed by Dr. Diaz August 22, 2024. Impression normal esophagus, erosive gastropathy with no stigmata of recent bleeding. Evidence also of chronic duodenitis. Biopsy of the gastric tissue and duodenal tissue was obtained. Prior similar symptoms: Yes Recent Illness/Hospitalization: No PFSH [facility] Medical History Esophagitis Spinal cord stimulator status Difficult intravenous access Esophageal dilatation Gastroparesis Chronic nausea Screening for thyroid disorder Galactorrhea Blurry vision GERD (gastroesophageal reflux disease) High cholesterol PTSD (post-traumatic stress disorder) History of stress test History of echocardiogram Cardiology follow-up encounter Chest pain Syncope Palpitations Hyperlipidemia Bradycardia Hematemesis of unknown cause Degenerative disc disease Superior glenoid labrum lesion of right shoulder Constipation Early satiety Rotator cuff injury Right shoulder pain Cough Nausea and vomiting Epigastric pain Flu vaccine need Lupus Debility Chronic lumbar radiculopathy Health care maintenance Hematemesis Vomiting Elevated antinuclear antibody (PAT) level Positive P-ANCA titer GI bleed Colon polyp Fatty liver Sludge in gallbladder Post-menopausal Anxiety Seizures Smoker Wheelchair dependent Wheel chair as ambulatory aid Foot pain, left Lower GI bleeding Dysphagia Elevated blood pressure reading Hypokalemia Abdominal pain UTI (urinary tract infection) Uterine cancer Cervical cancer Interstitial cystitis Acute cystitis Hematuria Flank pain Fibromyalgia Blurry vision, left eye Dizziness Headache Fall Postoperative pain Acute pain of left foot Postoperative wound infection Cellulitis Incisional hernia Gastroesophageal reflux disease Urinary frequency Urge incontinence Urinary urgency Migraines Lamar's palsy Depression with anxiety Ulcer Lipoma Stroke Seizures Osteoarthritis Neuropathy Kidney stones Irritable bowel syndrome Hives Hearing problem Carpal tunnel syndrome Arthritis Seasonal allergies Home Medications ?Medication ?Instructions ?Recorded ?Last Taken ?Type topiramate 200 mg tablet 200 mg PO QHS headaches 08/15/18 08/21/24 History Handicap Placard #1 ea 05/03/20 Unknown Rx baclofen 10 mg tablet 10 mg PO TID 03/23/21 08/21/24 History walker (Ultra-Light Rollator misc) #1 ea 09/26/21 Unknown Rx quetiapine 300 mg tablet (Seroquel) 300 mg PO QHS 02/22/22 08/21/24 History walker (Ultra-Light Rollator misc) #1 ea 08/10/22 Unknown Rx hydroxychloroquine 200 mg tablet 200 mg PO BID 08/15/22 08/22/24 History Handicap Placard #1 ea 03/09/23 Unknown Rx wheelchair #1 ea 03/09/23 Unknown Rx carbamazepine 200 mg tablet 200 mg PO DAILY seizures 04/17/23 08/22/24 History fremanezumab-vfrm 225 mg/1.5 mL 225 mg subcut QMONTH 04/17/23 Unknown History subcutaneous auto-injector (Ajovy) nortriptyline 10 mg capsule 30 mg PO QHS 04/17/23 08/21/24 History prazosin 2 mg capsule 4 mg PO QHS 04/17/23 08/21/24 History folic acid 1 mg tablet 1 mg PO DAILY 06/08/23 08/21/24 History quetiapine 400 mg tablet 400 mg PO QHS 06/08/23 08/21/24 History cholecalciferol (vitamin D3) 1,250 1,250 mcg PO QWEEK 08/31/23 08/21/24 History mcg (50,000 unit) capsule Rollator walker #1 ea 02/21/24 Unknown Rx buspirone 10 mg tablet 10 mg PO .qid 02/21/24 08/22/24 History epinephrine 0.3 mg/0.3 mL 0.3 mg (0.3 mL) IM Q5-15M PRN 02/22/24 Unknown Rx injection, auto-injector (EpiPen anaphylaxis #2 ea 2-Raymond) ubrogepant 100 mg tablet (Ubrelvy) 100 mg PO DAILY PRN migraine 04/04/24 Unknown Rx headache #10 tabs methotrexate sodium 2.5 mg tablet 25 mg PO TU 04/28/24 08/21/24 History psyllium seed (sugar) oral powder 1 tbsp PO .3x/wk 04/28/24 08/21/24 History (Metamucil (sugar) oral powder) simvastatin 20 mg tablet 20 mg PO QPM #90 tabs 04/30/24 08/21/24 Rx lactulose 10 gram/15 mL (15 mL) 15 ml PO TID #300 mL 07/09/24 08/21/24 Rx oral solution pantoprazole 40 mg tablet,delayed 40 mg PO DAILY #90 tabs 07/09/24 08/22/24 Rx release promethazine 25 mg tablet 25 mg PO BID PRN nausea and 07/09/24 08/21/24 Rx vomiting #30 tabs linaclotide 145 mcg capsule 145 mcg PO QDAY #90 caps 08/05/24 08/21/24 Rx (Linzess) scopolamine base 1 mg over 3 days 1 patch transdermal Q3D PRN nausea 08/13/24 08/22/24 Rx transdermal patch and vomiting #10 ea gabapentin 600 mg tablet 600 mg PO TID nerve pain #90 tabs 08/20/24 08/22/24 Rx levetiracetam 1,000 mg tablet 1,000 mg PO BID 08/21/24 08/22/24 History dicyclomine 10 mg capsule 10 mg PO BID PRN abdominal pain 09/23/24 Unknown Rx #120 caps ondansetron 4 mg disintegrating 4 mg PO Q6H PRN nausea and 09/23/24 Unknown Rx tablet vomiting #60 tabs prochlorperazine maleate 10 mg 10 mg PO Q8H PRN nausea and 09/23/24 Unknown Rx tablet (Compazine) vomiting #90 tabs oxycodone-acetaminophen 5 mg-325 1 tab PO Q8H PRN pain 5 days #15 09/24/24 Unknown Rx mg tablet (Percocet) tabs Allergy/AdvReac Type Severity Reaction Status Date / Time venom-honey bee Allergy Severe severe Verified 09/24/24 13:17 venom-wasp Allergy Severe severe Verified 09/24/24 13:17 coconut Allergy Intermediate Hives Verified 09/24/24 13:17 doxycycline Allergy Intermediate Rash Verified 09/24/24 13:17 mushroom Allergy Intermediate Hives Verified 09/24/24 13:17 ciprofloxacin (From Cipro) Allergy Rash Verified 09/24/24 13:17 erythromycin base Allergy Anaphylaxis Verified 09/24/24 13:17 iodine Allergy Anaphylaxis Verified 09/24/24 13:17 latex Allergy Rash Verified 09/24/24 13:17 metronidazole (From Flagyl) Allergy Anaphylaxis Verified 09/24/24 13:17 naproxen (From Naprosyn) Allergy Anaphylaxis Verified 09/24/24 13:17 Penicillins Allergy Anaphylaxis Verified 09/24/24 13:17 shellfish derived Allergy Anaphylaxis Verified 09/24/24 13:17 lithium AdvReac Intermediate Mood Verified 09/24/24 13:17 changes adhesive AdvReac Mild BLISTERS Verified 09/24/24 13:17 sulfamethoxazole (From AdvReac Hives Verified 09/24/24 13:17 Bactrim) trimethoprim (From Bactrim) AdvReac Hives Verified 09/24/24 13:17 Family History Father Asthma Grandfather No problems noted. Grandmother Asthma Brother Lung cancer Diabetes Hypertension Grandfather Asthma Grandmother Asthma Hypertension Mother Diabetes Aunt Diabetes Son Seizures Asthma Surgical History History of repair of rotator cuff Hx of surgical procedure History of colonoscopy History of esophagogastroduodenoscopy (EGD) Hx of surgical procedure Status post left foot surgery S/P left knee surgery S/P umbilical hernia repair, follow-up exam History of bladder repair surgery History of spinal surgery History of appendectomy History of hysterectomy History of orthopedic surgery History of carpal tunnel surgery of right wrist Social History Smoking Status: Light Smoker (<10/day) alcohol intake: never substance use type: does not use caffeine: No what type of physical activity do you participate in: none ROS ROS ED Constitutional Constitutional ED: Denies chills, fever(s), subjective or sweats ENT ENT ED: Denies rhinorrhea or sore throat Cardiovascular Cardiovascular: Denies chest pain or palpitations Respiratory/Chest Respiratory/Chest: Denies cough, dyspnea or dyspnea on exertion Gastrointestinal Gastrointestinal: Reports abdominal pain, nausea and vomiting; Denies constipation, diarrhea or melena Genitourinary Genitourinary ED: Denies dysuria, hematuria or urinary frequency Musculoskeletal Musculoskeletal: Reports back pain; Denies arthralgias or myalgias Integumentary Denies abscess, Abrasions or rash Neurologic Neurologic: Denies headache(s), paresthesias or weakness Psychiatric Psychiatric: Reports anxiety Hematologic/Lymphatic Hematologic/Lymphatic: Reports systems reviewed and no addt'l complaints, except as documented EXAM Physical Exam Const Vital Signs: 09/24/24 13:17 09/24/24 15:27 09/24/24 18:27 Temperature 98.8 F Temperature Source Oral Pulse Rate 87 83 77 Respiratory Rate 17 16 16 Blood Pressure 108/52 L 110/60 134/71 H Blood Pressure Mean 70 76 92 Pulse Ox 98 96 99 Oxygen Delivery Method Room Air Room Air Room Air Positive well nourished and well developed Constitutional Narrative: Patient is in obvious discomfort. She has her hand up against her right upper quadrant rotating. General Appearance ED: well developed and pallor; Negative for cyanotic, diaphoretic or NAD HEENT Reports dry mucous membranes HEENT Narrative: Head is atraumatic normocephalic. Ears normal. Nares patent. Mouth ED: Yes dry mucous membranes Mouth: dry mucous membranes Eyes PERRL and EOMs intact bilaterally General Eye ED: Negative for pale conjunctiva or scleral icterus Neck no lymphadenopathy, supple and no JVD Chest Wall inspection of chest normal and palpation of chest normal Resp normal respiratory effort and clear to auscultation bilaterally Cardio regular rate, regular rhythm, S1 normal heart sound, S2 normal heart sound and no murmurs GI non-distended and no masses; Negative for normal to inspection, nondistended, normoactive bowel sounds, non-tender or hepatosplenomegaly Auscultation: hypoactive bowel sounds Palpation: soft, tender RUQ and Greenberg's sign and guarding RUQ Back/Spine no CVA tenderness Extremity normal to inspection General Extremety ED: Negative for edema or tenderness General Extremity: Negative for edema Neuro oriented x3 and CN's II-XII intact bilaterally Sensorium / Orientation: alert Psych mental status grossly normal Skin no rashes or lesions noted, no wounds and skin turgor normal General Skin Exam: pallor; Negative for jaundice MDM MDM MDM Narrative Medical decision making narrative: With right upper quadrant pain nurses entered nurse protocol orders. Liver and lipase was ordered in addition in light of patient having an abnormal HIDA scan. As previously mentioned her CT ultrasound were nondiagnostic. She was medicated with Zofran and morphine. She received Zofran prior to arrival by squad. Since she is in obvious discomfort concerned this represents biliary disease. Case was discussed with Dr. Mcgarry. He requested an ultrasound. Lab Data Attestation: I reviewed the patient's lab results. Lab results narrative: Patient is neutropenic and anemic. She has been neutropenic and anemic in the past. MCV is elevated at 104.7. Liver enzymes are essentially normal. Lipase is normal. Electrolyte panel is normal. Labs: Laboratory Results - last 24 hr 09/24/24 14:00 WBC 3.7 L RBC 2.98 L Hgb 10.8 L Hct 31.2 L MCV 104.7 H MCH 36.2 H MCHC 34.6 RDW Std Deviation 49.3 H RDW Coeff of Karina 13.1 Plt Count 164 MPV 11.2 Immature Gran % (Auto) 0.300 Neut % (Auto) 45.9 L Lymph % (Auto) 42.3 H Crawford % (Auto) 7.7 Eos % (Auto) 3.3 Baso % (Auto) 0.5 Absolute Neuts (auto) 1.7 L Absolute Lymphs (auto) 1.55 Nucleated RBC % 0 Sodium 140 Potassium 3.4 Chloride 107 Carbon Dioxide 22.2 Anion Gap 11 BUN 10 Creatinine 0.86 Estim Creat Clear Calc 88.61 Est GFR (MDRD) Non-Af 83 BUN/Creatinine Ratio 12.0 Glucose 91 Calcium 8.7 Total Bilirubin 0.20 Direct Bilirubin 0.11 AST 20 ALT 12 Alkaline Phosphatase 106 H Total Protein 6.8 Albumin 4.1 Globulin 2.7 Lipase 16 Radiography Diagnostic Testing: Clinical Impression(s) from Imaging Studies Gallbladder Ultrasound 09/24/24 15:18 IMPRESSION: No acute cholecystitis. Hepatomegaly. Reading Location: [facility] Dr. Mcgarry was made aware of the ultrasound findings. Plan is discharge with pain medicine and outpatient follow-up with him. Management Discussion w/another healthcare provider: End User Support Specialist (Spoke with Dr. Mcgarry who is on-call for surgery.) Treatment and Re-Evaluation :: Patient was informed of results. She is agreeable with plan. Discharge Plan Triage Chief Complaint: Abd Pain ED Provider: Ewelina Penao Dx/Rx/DC Orders Clinical Impression: Abdominal pain, acute, right upper quadrant, Abnormal biliary HIDA scan, Nausea & vomiting, Gastritis, Chronic duodenitis Instructions: ED Pain, Acute, Uncertain Cause Prescriptions: New oxycodone-acetaminophen [Percocet] 5-325 mg tablet 1 tab PO Q8H PRN (Reason: pain) 5 Days Qty: 15 0RF No Action topiramate 200 mg tablet 200 mg PO QHS carbamazepine 200 mg tablet 200 mg PO DAILY Patient Comments: 1 Tab AM & 2 PM baclofen 10 mg tablet 10 mg PO TID quetiapine [Seroquel] 300 mg tablet 300 mg PO QHS hydroxychloroquine 200 mg tablet 200 mg PO BID (DME) Handicap Placard See Rx Instructions .ROUTE .MEDSUPPLY Qty: 1 0RF Rx Instructions: As directed, length of time 3 years (DME) wheelchair See Rx Instructions .Route .MEDSUPPLY Qty: 1 0RF Rx Instructions: As directed folic acid 1 mg tablet 1 mg PO DAILY quetiapine 400 mg tablet 400 mg PO QHS methotrexate sodium 2.5 mg tablet 25 mg PO TU Rx Instructions: 10 tablets once weekly nortriptyline 10 mg capsule 30 mg PO QHS prazosin 2 mg capsule 4 mg PO QHS Ajovy Autoinjector 225 mg/1.5 mL auto-injector 225 mg subcut QMONTH (DME) Evansator walker See Rx Instructions .Route .MEDSUPPLY Qty: 1 0RF Rx Instructions: As directed epinephrine [EpiPen 2-Raymond] 0.3 mg/0.3 mL auto-injector 0.3 mg IM Q5-15M PRN (Reason: anaphylaxis) Qty: 2 1RF Rx Instructions: do not exceed 3 doses per episode Metamucil (sugar) Powder 1 tbsp PO .3x/wk Rx Instructions: 3x/wk lactulose 10 gram/15 mL (15 mL) solution 15 ml PO TID Qty: 300 0RF pantoprazole 40 mg tablet,delayed release (DR/EC) 40 mg PO DAILY Qty: 90 1RF promethazine 25 mg tablet 25 mg PO BID PRN (Reason: nausea and vomiting) Qty: 30 1RF cholecalciferol (vitamin D3) 1,250 mcg (50,000 unit) capsule 1,250 mcg PO QWEEK buspirone 10 mg tablet 10 mg PO .qid levetiracetam 1,000 mg tablet 1,000 mg PO BID (DME) Handicap Placard See Rx Instructions .Route .MEDSUPPLY Qty: 1 0RF Rx Instructions: As directed, length of time 3 years (DME) Ultra-Light Rollator Misc See Rx Instructions .Route Qty: 1 0RF Rx Instructions: As directed (DME) Ultra-Light Rollator Misc See Rx Instructions .Route Qty: 1 0RF Rx Instructions: As directed Ubrelvy 100 mg tablet 100 mg PO DAILY PRN (Reason: migraine headache) Qty: 10 0RF simvastatin 20 mg tablet 20 mg PO QPM Qty: 90 1RF Linzess 145 mcg capsule 145 mcg PO QDAY Qty: 90 1RF scopolamine base 1 mg over 3 days patch 3 day 1 patch transdermal Q3D PRN (Reason: nausea and vomiting) Qty: 10 1RF gabapentin 600 mg tablet 600 mg PO TID Qty: 90 1RF dicyclomine 10 mg capsule 10 mg PO BID PRN (Reason: abdominal pain) Qty: 120 0RF prochlorperazine maleate [Compazine] 10 mg tablet 10 mg PO Q8H PRN (Reason: nausea and vomiting) Qty: 90 0RF ondansetron 4 mg tablet,disintegrating 4 mg PO Q6H PRN (Reason: nausea and vomiting) Qty: 60 1RF Primary Care Provider: Gayle Munoz Referrals: Damaso Mcgarry MD [Med Staff - Active Staff] - 1 Week Gayle Munoz MD [Primary Care Provider] - Print Language: Dutch Disposition Disposition: Home, Self Care
--- NOTE | 2024-09-24 15:18 | US_ITS ---
PROCEDURE: GALLBLADDER 09/24/2024 REASON FOR EXAM: PAIN COMPARISON: None FINDINGS: LIVER: Mild hepatomegaly 17.4 cm. Normal echogenicity. GALLBLADDER: No gallstones. Negative mckinnon sign. no gallbladder wall thickening or pericholecystic fluid. COMMON BILE DUCT: Normal in caliber. RIGHT KIDNEY: Normal in size and echogenicity. No mass. No urinary stones. No hydronephrosis. Pancreas: Visualized portions are echogenic. US/Gallbladder IMPRESSION: No acute cholecystitis. Hepatomegaly. Reading Location: [id number]
[2024-09-24 15:27] VITALS: BP 110/60; PULSE 83; RESP 16; O2SAT 96
[2024-09-24] MEDS: Ondansetron 4 MG/2 ML Vial IV (17:57)
[2024-09-24 18:27] VITALS: BP 134/71; PULSE 77; RESP 16; O2SAT 99
[2024-09-24 18:54] VITALS: BP 134/76; PULSE 79; RESP 16; TEMP 36.8; O2SAT 99
== END 2024-09-24 19:07 | disposition home or self-care (01) ==
PROVIDERS: Emergency Provider Emergency Medicine; PCP Internal Medicine; Visit Provider Emergency Medicine
DX: R10.11 Right upper quadrant pain (principal); G40.909 Epilepsy, unspecified, not intractable, without status epilepticus; R93.2 Abnormal findings on diagnostic imaging of liver and biliary tract; K29.80 Duodenitis without bleeding; K29.70 Gastritis, unspecified, without bleeding; R11.2 Nausea with vomiting, unspecified; D70.9 Neutropenia, unspecified; D64.9 Anemia, unspecified; K21.9 Gastro-esophageal reflux disease without esophagitis; E78.00 Pure hypercholesterolemia, unspecified; F43.10 Post-traumatic stress disorder, unspecified; F41.8 Other specified anxiety disorders; G43.909 Migraine, unspecified, not intractable, without status migrainosus; F17.200 Nicotine dependence, unspecified, uncomplicated; Z87.19 Personal history of other diseases of the digestive system; Z86.73 Personal history of transient ischemic attack (TIA), and cerebral infarction without residual deficits; Z87.442 Personal history of urinary calculi; Z79.899 Other long term (current) drug therapy
CPT/HCPCS: 76705; 80048; 80076; 83690; 85025; 96361; 96374; 96375; 96376; 99285; A4216; J2405

== ENCOUNTER 2024-10-02 11:41 | Emergency (ER) | payer MEDICAID, SELFPAY ==
[2024-10-02 11:42] VITALS: BP 122/77; PULSE 86; RESP 16; TEMP 36.3; O2SAT 100
--- NOTE | 2024-10-02 12:43 | EDS_ITS ---
HPI HPI - GI History of Present Illness Chief Complaint: Abd Pain Informant: patient and family Narrative Narrative: Presents by EMS from home increasing right upper quadrant abdominal pain nausea and vomiting since yesterday. She has been on and off symptoms for last 4 years. She is followed by general surgery Dr. Mcgarry, she followed up yesterday states had planned surgery October 15 at scheduled. Multiple surgeries including appendectomy, umbilical hernia, has had hysterectomy due to uterine cancer. Denies hematemesis. She has had bowel movements most recent 1 yesterday she has flatus. No abdominal distention. She called surgery office prior to arrival. Multiple allergies has tolerated morphine. Prior similar symptoms: Yes PFSH PFS Medical History Esophagitis Spinal cord stimulator status Difficult intravenous access Esophageal dilatation Gastroparesis Chronic nausea Screening for thyroid disorder Galactorrhea Blurry vision GERD (gastroesophageal reflux disease) High cholesterol PTSD (post-traumatic stress disorder) History of stress test History of echocardiogram Cardiology follow-up encounter Chest pain Syncope Palpitations Hyperlipidemia Bradycardia Hematemesis of unknown cause Degenerative disc disease Superior glenoid labrum lesion of right shoulder Constipation Early satiety Rotator cuff injury Right shoulder pain Cough Nausea and vomiting Epigastric pain Flu vaccine need Lupus Debility Chronic lumbar radiculopathy Health care maintenance Hematemesis Vomiting Elevated antinuclear antibody (PAT) level Positive P-ANCA titer GI bleed Colon polyp Fatty liver Sludge in gallbladder Post-menopausal Anxiety Seizures Smoker Wheelchair dependent Wheel chair as ambulatory aid Foot pain, left Lower GI bleeding Dysphagia Elevated blood pressure reading Hypokalemia Abdominal pain UTI (urinary tract infection) Uterine cancer Cervical cancer Interstitial cystitis Acute cystitis Hematuria Flank pain Fibromyalgia Blurry vision, left eye Dizziness Headache Fall Postoperative pain Acute pain of left foot Postoperative wound infection Cellulitis Incisional hernia Gastroesophageal reflux disease Urinary frequency Urge incontinence Urinary urgency Migraines Lamar's palsy Depression with anxiety Ulcer Lipoma Stroke Seizures Osteoarthritis Neuropathy Kidney stones Irritable bowel syndrome Hives Hearing problem Carpal tunnel syndrome Arthritis Seasonal allergies Home Medications ?Medication ?Instructions ?Recorded ?Last Taken ?Type topiramate 200 mg tablet 200 mg PO QHS headaches 05/0 12/2608/21/24 History Handicap Placard #1 ea 05/03/20 Unknown Rx baclofen 10 mg tablet 10 mg PO TID 03/23/21 History walker (Ultra-Light Rollator misc) #1 ea 09/26/21 Unkn own Rx quetiapine 300 mg tablet (Seroquel) 300 mg PO QHS 02/0708/21/24 History walker (Ultra-Light Rollator misc) #1 ea 08/10/22 Unkn own Rx hydroxychloroquine 200 mg tablet 200 mg PO BID 3 08/22/24 History Handicap Placard #1 ea 03/09/23 Unknown Rx wheelchair #1 ea 03/09/23 Unknown Rx carbamazepine 200 mg tablet 200 mg PO DAILY seizures 0 04/17/23 08/22/24 History fremanezumab-vfrm 225 mg/1.5 mL 225 mg subcut QMONTH 0 04/17/23 Unknown History subcutaneous auto-injector (Ajovy) nortriptyline 10 mg capsule 30 mg PO QHS 04/17/2308/07 History prazosin 2 mg capsule 4 mg PO QHS 04/17/23 5 History folic acid 1 mg tablet 1 mg PO DAILY 06/08/2308/21 History quetiapine 400 mg tablet 400 mg PO QHS 06/08/2308/21 History cholecalciferol (vitamin D3) 1,250 1,250 mcg PO QWEEK 08/31/23 08/21/24 History mcg (50,000 unit) capsule Rollator walker #1 ea 02/21/24 Unknown Rx epinephrine 0.3 mg/0.3 mL 0.3 mg (0.3 mL) IM Q5-15M ME N 02/22/24 Unknown Rx injection, auto-injector (EpiPen anaphylaxis #2 ea 2-Raymond) ubrogepant 100 mg tablet (Ubrelvy) 100 mg PO DAILY PRN migraine 04/04/24 Unknown Rx headache #10 tabs methotrexate sodium 2.5 mg tablet 25 mg PO TU 04/28/24 08/21/24 History psyllium seed (sugar) oral powder 1 tbsp PO .COMPLEX P RN constipation 04/28/24 08/21/24 History (Metamucil (sugar) oral powder) simvastatin 20 mg tablet 20 mg PO QPM #90 tabs 08/21/24 Rx lactulose 10 gram/15 mL (15 mL) 15 ml PO TID #300 mL 0 07/09/24 08/21/24 Rx oral solution pantoprazole 40 mg tablet,delayed 40 mg PO DAILY #90 t abs 07/09/24 08/22/24 Rx release promethazine 25 mg tablet 25 mg PO BID PRN nausea and 07/09/24 08/21/24 Rx vomiting #30 tabs linaclotide 145 mcg capsule 145 mcg PO QDAY #90 caps 0 08/05/24 08/21/24 Rx (Linzess) scopolamine base 1 mg over 3 days 1 patch transdermal Q3D PRN nausea 08/13/24 08/22/24 Rx transdermal patch and vomiting #10 ea gabapentin 600 mg tablet 600 mg PO TID nerve pain #90 tabs 08/20/24 08/22/24 Rx levetiracetam 1,000 mg tablet 1,000 mg PO BID 08/21/24 08/22/24 History dicyclomine 10 mg capsule 10 mg PO BID PRN abdominal p ain 09/23/24 Unknown Rx #120 caps ondansetron 4 mg disintegrating 4 mg PO Q6H PRN nausea and 09/23/24 Unknown Rx tablet vomiting #60 tabs prochlorperazine maleate 10 mg 10 mg PO Q8H PRN nausea and 09/23/24 Unknown Rx tablet (Compazine) vomiting #90 tabs buspirone 10 mg tablet 10 mg PO BID 10/02/24 Unknow n History galcanezumab-gnlm 120 mg/mL 120 mg subcut PRN migraine headache 10/02/24 Unknown History subcutaneous pen injector (Emgality Pen) ondansetron 4 mg disintegrating 4 mg PO Q8H PRN PRN Na usea #10 tabs 10/02/24 Unknown Rx tablet oxycodone-acetaminophen 5 mg-325 1 tab PO Q6H PRN PRN Pain 3 days 10/02/24 Unknown Rx mg tablet #12 TABLETS Allergy/AdvReac Type Severity Reaction Status Date / Time venom-honey bee Allergy Severe severe Verified 10/02/24 11:45 venom-wasp Allergy Severe severe Verified 10/02/24 11:45 coconut Allergy Intermediate Hives Verified 10/02/24 11:45 doxycycline Allergy Intermediate Rash Verified 10/02/24 11:45 mushroom Allergy Intermediate Hives Verified 10/02/24 11:45 ciprofloxacin (From Cipro) Allergy Rash Verified 10/02/24 11:45 erythromycin base Allergy Anaphylaxis Verified 10/02/24 11:45 iodine Allergy Anaphylaxis Verified 10/02/24 11:45 latex Allergy Rash Verified 10/02/24 11:45 metronidazole (From Flagyl) Allergy Anaphylaxis Verified 10/02/24 11:45 naproxen (From Naprosyn) Allergy Anaphylaxis Verified 10/02/24 11:45 Penicillins Allergy Anaphylaxis Verified 10/02/24 11:45 shellfish derived Allergy Anaphylaxis Verified 10/02/24 11:45 lithium AdvReac Intermediate Mood Verified 10/02/24 11:45 changes adhesive AdvReac Mild BLISTERS Verified 10/02/24 11:45 sulfamethoxazole (From AdvReac Hives Verified 10/02/24 11:45 Bactrim) trimethoprim (From Bactrim) AdvReac Hives Verified 10/02/24 11:45 Family History Father Asthma Grandfather No problems noted. Grandmother Asthma Brother Lung cancer Diabetes Hypertension Grandfather Asthma Grandmother Asthma Hypertension Mother Diabetes Aunt Diabetes Son Seizures Asthma Surgical History History of repair of rotator cuff Hx of surgical procedure History of colonoscopy History of esophagogastroduodenoscopy (EGD) Hx of surgical procedure Status post left foot surgery S/P left knee surgery S/P umbilical hernia repair, follow-up exam History of bladder repair surgery History of spinal surgery History of appendectomy History of hysterectomy History of orthopedic surgery History of carpal tunnel surgery of right wrist Social History Smoking Status: Light Smoker (<10/day) quit status: considering quitting alcohol intake: never substance use type: does not use caffeine: No what type of physical activity do you participate in: none ROS ROS ED Constitutional Constitutional ED: Denies chills, fever(s) or sweats ENT ENT ED: Denies sore throat Cardiovascular Cardiovascular: Denies chest pain, leg edema, palpitations or racing heartbeat Respiratory/Chest Respiratory/Chest: Denies cough, dyspnea or dyspnea on exertion Gastrointestinal Gastrointestinal: Reports abdominal pain, nausea and vomiting; Denies diarrhea Genitourinary Genitourinary ED: Denies dysuria, hematuria or urinary frequency Musculoskeletal Musculoskeletal: Denies back pain, extremity pain or neck pain Integumentary Denies rash or wounds Neurologic Neurologic: Denies headache(s), paresthesias or weakness EXAM Physical Exam Const Vital Signs: 10/02/24 11:42 10/02/24 12:45 10/02/24 14:00 Temperature 97.4 F L Temperature Source Temporal Pulse Rate 86 78 74 Respiratory Rate 16 16 16 Blood Pressure 122/77 H 126/86 H 98/52 L Blood Pressure Mean 92 99 67 Pulse Ox 100 96 100 Oxygen Delivery Method Room Air Room Air Room Air Positive well nourished and well developed General Appearance ED: well developed and NAD HEENT Reports moist mucous membranes normocephalic and atraumatic Eyes General Eye ED: Yes normal appearance of both eyes Neck full ROM Chest Wall Chest: Negative for tenderness Resp normal respiratory effort and normal air movement Effort and Inspection: symmetric chest movement; Negative for respiratory distress Cardio regular rate, regular rhythm and no murmurs Peripheral Pulses: pulses 2+ throughout GI normal to inspection, nondistended, normoactive bowel sounds GI Narrative: Right upper quadrant tenderness. Palpation: Negative for rebound tenderness present Extremity normal to inspection General Extremety ED: Negative for edema or tenderness General Extremity: Negative for edema Neuro oriented x3 and no sensory deficits noted Sensorium / Orientation: awake and alert Skin no rashes or lesions noted and no wounds MDM MDM MDM Narrative Medical decision making narrative: Interventions / MDM: Differential diagnosis: Abdominal pain, nausea and vomiting, abnormal HIDA Diagnosis considered but do not suspect: No clinical bowel obstruction. My EKG interpretation: N/A Imaging independently reviewed and interpreted by myself: N/A External documents reviewed: Review of surgery note yesterday abnormal HIDA with no gallstones. History of duodenitis erosive gastritis. Shared decision with surgery with patient for upcoming cholecystectomy that may not fix her problems. Test considered but not ordered:N/A ED course: Known gallbladder disease per history. Right upper quadrant pain with vomiting. Will check abdominal labs, morphine Zofran fluids. 1449: Abdominal labs are stable. anemia stable with hemoglobin 10.7. Clinically feeling better tolerate oral fluids and reevaluation. Patient understood her surgery discussion with her as her plans for cholecystectomy may not fix her problem. She is on a PPI. Clinically improving therefore discussed with patient follow-up with her surgeon with outpatient plans. I will write for pain medicines and antiemetics to the pharmacy. All questions were answered. Re-evaluation: stable Disposition discussed with patient/family/significant other: Patient Case discussed with consulting clinician: N/A This note was generated with [employer] dictation software. It may contain incorrect words, spelling, and punctuation that were not noted in checking the note before signing. Lab Data Attestation: I reviewed the patient's lab results. Labs: Laboratory Results - last 24 hr 10/02/24 12:29 WBC 5.1 RBC 2.99 L Hgb 10.7 L Hct 31.9 L MCV 106.7 H MCH 35.8 H MCHC 33.5 RDW Std Deviation 50.5 H RDW Coeff of Karina 13.1 Plt Count 141 L MPV 11.7 Immature Gran % (Auto) 0.200 Neut % (Auto) 70.2 H Lymph % (Auto) 23.6 [place] % (Auto) 2.9 Eos % (Auto) 2.5 Baso % (Auto) 0.6 Absolute Neuts (auto) 3.6 Absolute Lymphs (auto) 1.21 Nucleated RBC % 0 Sodium 145 Potassium 3.4 Chloride 111 H Carbon Dioxide 23.2 Anion Gap 11 BUN 7 Creatinine 0.68 L Estim Creat Clear Calc 112.89 Est GFR (MDRD) Non-Af 107 BUN/Creatinine Ratio 10.5 Glucose 90 Calcium 8.6 Total Bilirubin 0.20 Direct Bilirubin 0.09 AST 21 ALT 11 Alkaline Phosphatase 118 H Total Protein 6.7 Albumin 3.9 Globulin 2.8 Lipase 31 Discharge Plan Triage Chief Complaint: Abd Pain ED Provider: Delfino Garza Dx/Rx/DC Orders Clinical Impression: Abdominal pain, Nausea and vomiting Instructions: Abdominal Pain, ED Vomiting (Adult) Prescriptions: New oxycodone-acetaminophen 5-325 mg tablet 1 tab PO Q6H PRN PRN (Reason: Pain) 3 Days Qty: 12 0RF ondansetron 4 mg tablet,disintegrating 4 mg PO Q8H PRN PRN (Reason: Nausea) Qty: 10 0RF No Action topiramate 200 mg tablet 200 mg PO QHS carbamazepine 200 mg tablet 200 mg PO DAILY Patient Comments: 1 Tab AM & 2 PM baclofen 10 mg tablet 10 mg PO TID quetiapine [Seroquel] 300 mg tablet 300 mg PO QHS hydroxychloroquine 200 mg tablet 200 mg PO BID (DME) Handicap Placard See Rx Instructions .ROUTE .MEDSUPPLY Qty: 1 0RF Rx Instructions: As directed, length of time 3 years (DME) wheelchair See Rx Instructions .Route .MEDSUPPLY Qty: 1 0RF Rx Instructions: As directed folic acid 1 mg tablet 1 mg PO DAILY quetiapine 400 mg tablet 400 mg PO QHS methotrexate sodium 2.5 mg tablet 25 mg PO TU Rx Instructions: 10 tablets once weekly nortriptyline 10 mg capsule 30 mg PO QHS prazosin 2 mg capsule 4 mg PO QHS Ajovy Autoinjector 225 mg/1.5 mL auto-injector 225 mg [place] [place] See Rx Instructions .Route .MEDSUPPLY Qty: 1 0RF Rx Instructions: As directed epinephrine [EpiPen 2-Raymond] 0.3 mg/0.3 mL auto-injector 0.3 mg IM Q5-15M PRN (Reason: anaphylaxis) Qty: 2 1RF Rx Instructions: do not exceed 3 doses per episode Metamucil (sugar) Powder 1 tbsp PO .COMPLEX PRN (Reason: constipation) Rx Instructions: 1 tbsp orally twice a week PRN; 3x/wk lactulose 10 gram/15 mL (15 mL) solution 15 ml PO TID Qty: 300 0RF pantoprazole 40 mg tablet,delayed release (DR/EC) 40 mg PO DAILY Qty: 90 1RF promethazine 25 mg tablet 25 mg PO BID PRN (Reason: nausea and vomiting) Qty: 30 1RF cholecalciferol (vitamin D3) 1,250 mcg (50,000 unit) capsule 1,250 mcg PO QWEEK levetiracetam 1,000 mg tablet 1,000 mg PO BID buspirone 10 mg tablet 10 mg PO BID Emgality Pen 120 mg/mL pen injector 120 mg SUBCUT PRN (Reason: migraine headache) Patient Comments: [NO ORIGINAL SIG] (DME) Handicap Placard See Rx Instructions .Route .MEDSUPPLY Qty: 1 0RF Rx Instructions: As directed, length of time 3 years (DME) Ultra-Light Rollator Misc See Rx Instructions .Route Qty: 1 0RF Rx Instructions: [place] [place] Ultra-Light Rollator Misc See Rx Instructions .Route Qty: 1 0RF Rx Instructions: As directed Ubrelvy 100 mg tablet 100 mg PO DAILY PRN (Reason: migraine headache) Qty: 10 0RF simvastatin 20 mg tablet 20 mg PO QPM Qty: 90 1RF Linzess 145 mcg capsule 145 mcg PO QDAY Qty: 90 1RF scopolamine base 1 mg over 3 days patch 3 day 1 patch transdermal Q3D PRN (Reason: nausea and vomiting) Qty: 10 1RF gabapentin 600 mg tablet 600 mg PO TID Qty: 90 1RF dicyclomine 10 mg capsule 10 mg PO BID PRN (Reason: abdominal pain) Qty: 120 0RF prochlorperazine maleate [Compazine] 10 mg tablet 10 mg PO Q8H PRN (Reason: nausea and vomiting) Qty: 90 0RF ondansetron 4 mg tablet,disintegrating 4 mg PO Q6H PRN (Reason: nausea and vomiting) Qty: 60 1RF Primary Care Provider: Gayle Munoz Referrals: Damaso Mcgarry MD [Med Staff - Active Staff] - Keep Lilliana appointment Gayle Munoz MD [Primary Care Provider] - Activity Restrictions/Additional Instructions: Labs stable. Take medicine as prescribed. Follow-up with your doctors. Print Language: Telugu Disposition Disposition: Home, Self Care Discharge Date/Time: 10/02/24 15:06
[2024-10-02 12:45] VITALS: BP 126/86; PULSE 78; RESP 16; O2SAT 96
[2024-10-02] MEDS: Morphine 4 MG/ML Syringe IV (12:52)
[2024-10-02] MEDS: 0.9% Normal Saline (1000mL) 1,000 ML 1000 ML IV (12:52)
[2024-10-02] MEDS: Ondansetron 4 MG/2 ML Vial IV (12:52)
[2024-10-02 12:53] VITALS: BMI 29.1
[2024-10-02 12:55] LABS: Absolute Lymphocyte Count 1.21 X10^3/uL (0.83-4.51); Absolute Neutrophil Count 3.6 X10^3/uL (2.0-7.7); Basophil# 0.03 X10^3/uL; Basophil% 0.6 % (0-1); Eosinophil# 0.13 X10^3/uL; Eosinophils% 2.5 % (0-5); Hematocrit 31.9 % (37-47); Hemoglobin 10.7 g/dL (12.0-15.0); Lymphocyte # 1.21 X10^3/ul (0.83-4.51); Lymphocyte % 23.6 % (19-41); Mean Corp Hgb Conc 33.5 g/dL (32-36); Mean Corpuscular Hgb 35.8 pg (27.0-32.0); Mean Corpuscular Volume 106.7 fL (81-99); Mean Platelet Vol. 11.7 fl (6.2-12.0); Monocyte# 0.15 X10^3/uL; Monocyte% 2.9 % (0-10); NRBC Flagged by Analyzer 0 % (0-5); Neutrophil % 70.2 % (47-70); Platelet Count 141 K/mm3 (150-450); RBC Distribution Width CV 13.1 % (11.6-14.6); RBC Distribution Width SD 50.5 fl (35.1-43.9); Red Blood Count 2.99 M/mm3 (4.2-5.4); White Blood Count 5.1 K/mm3 (4.4-11.0)
[2024-10-02 13:21] LABS: AST(SGOT) 21 U/L (<=31); Alanine Aminotransfer ALT/SGPT 11 U/L (<=34); Albumin, Serum 3.9 g/dL (3.5-5.0); Alkaline Phosphatase 118 U/L (35-104); Anion Gap 11 (5-15); BUN 7 mg/dL (4-19); BUN/Creat Ratio 10.5 RATIO (10-20); Bilirubin, Direct 0.09 mg/dL (0.00-0.30); Calcium,Total 8.6 mg/dL (7.6-11.0); Carbon Dioxide 23.2 mmol/L (21.0-32.0); Chloride 111 mmol/L (98-108); Creatinine, Serum 0.68 mg/dL (0.70-1.20); EST Glomerular Filtration Rate 107 (>60); Estimated Creatinine Clearance 112.89 ml/min (50-250); Globulin 2.8 g/dL (2.2-4.2); Glucose 90 mg/dL (70-99); Lipase 31 U/L (13-75); Potassium 3.4 mmol/L (3.3-5.1); Protein, Total 6.7 g/dL (5.9-8.4); Sodium Level 145 mmol/L (133-145)
[2024-10-02 14:00] VITALS: BP 98/52; PULSE 74; RESP 16; O2SAT 100
[2024-10-02 14:55] VITALS: BP 124/82; PULSE 70; RESP 14; TEMP 36.8; O2SAT 99
== END 2024-10-02 15:06 | disposition home or self-care (01) ==
PROVIDERS: Emergency Provider Emergency Medicine; PCP Internal Medicine; Referring Provider Emergency Medicine; Visit Provider Emergency Medicine
DX: R10.11 Right upper quadrant pain (principal); G40.909 Epilepsy, unspecified, not intractable, without status epilepticus; R11.2 Nausea with vomiting, unspecified; K21.9 Gastro-esophageal reflux disease without esophagitis; E78.00 Pure hypercholesterolemia, unspecified; F43.10 Post-traumatic stress disorder, unspecified; K76.0 Fatty (change of) liver, not elsewhere classified; F41.9 Anxiety disorder, unspecified; M79.7 Fibromyalgia; G62.9 Polyneuropathy, unspecified; G43.909 Migraine, unspecified, not intractable, without status migrainosus; F17.200 Nicotine dependence, unspecified, uncomplicated; Z87.19 Personal history of other diseases of the digestive system; Z90.49 Acquired absence of other specified parts of digestive tract; Z85.42 Personal history of malignant neoplasm of other parts of uterus; Z86.73 Personal history of transient ischemic attack (TIA), and cerebral infarction without residual deficits; Z90.710 Acquired absence of both cervix and uterus; Z79.899 Other long term (current) drug therapy
CPT/HCPCS: 80048; 80076; 83690; 85025; 96361; 96374; 96375; 99285; A4216; J2405

== ENCOUNTER 2024-10-13 10:28 | Day surgery (SDC) | payer MEDICAID, SELFPAY ==
--- NOTE | 2024-10-06 16:24 | PAT.ANESEVAL ---
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 WILL HAVE OFF Patient instructed to have device shut off --Does patient have Pacemaker or ICD? When Was Last Pacemaker Check QUESTION #4 FULL TEXT: You/Your Family Experience fever (hyperthermia) with Anesthesia Last Oral Intake Last Oral intake: Last Oral Intake NPO since Meds taken in AM with sips of water? 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 Female Yes 10/03/24 09:57 HX of Motion Sickness Yes 10/03/24 09:57 HX of N/V After Surgery Yes 10/03/24 09:57 Non-Smoker No 10/03/24 09:57 Duration of Surgery greater No 10/03/24 09:57 than 60 minutes Number of Risk Factors 3 10/03/24 09:57 PONV Score Moderate Risk 10/03/24 09:57 Height & Weight Height & Weight: Anesthesia: Height & Weight Height 5 ft 7 in 10/01/24 08:54 Respiratory Assessment Respiratory Assessment - heavy equipment diesel mechanic: Respiratory Tract Infection Hx - 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 Has anyone observed you stop No 10/03/24 09:57 breathing during sleep? STOP Results Negative 10/03/24 09:57 QUESTION #5 FULL TEXT : Do you snore loudly (louder than talking or can be heard through closed doors)? 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 Specify any problems Hx of Preganancy in last 3 No 10/03/24 09:57 Months Nurse Filling Out Transfusion DSCHRIBER 10/03/24 09:57 & Questions: Date: 10/03/24 10/03/24 09:57 Time: 09:59 10/03/24 09:57 Patient unable to answer at this time (ie. 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: /Reproductive Hx- heavy equipment diesel mechanic Hx Now No 10/03/24 09:57 Gestational Age (in weeks): EDC: Hx Hx Para Hx Section SAB No 10/03/24 09:57 PFSH Medical History (Updated 10/03/24 @ 10:09 by Amada Ching) Erosive gastritis Esophagitis Spinal cord stimulator status Difficult intravenous access Esophageal dilatation Gastroparesis Chronic nausea Galactorrhea GERD (gastroesophageal reflux disease) High cholesterol PTSD (post-traumatic stress disorder) History of stress test History of echocardiogram Cardiology follow-up encounter Bradycardia Degenerative disc disease Superior glenoid labrum lesion of right shoulder Constipation Early satiety Cough Nausea and vomiting Epigastric pain Flu vaccine need Lupus Debility Chronic lumbar radiculopathy Health care maintenance Hematemesis Vomiting Elevated antinuclear antibody (PAT) level Positive P-ANCA titer GI bleed Colon polyp Fatty liver Sludge in gallbladder Post-menopausal Anxiety Seizures Smoker Wheelchair dependent Foot pain, left Lower GI bleeding Dysphagia Elevated blood pressure reading Hypokalemia Abdominal pain UTI (urinary tract infection) Uterine cancer Cervical cancer Interstitial cystitis Acute cystitis Hematuria Flank pain Fibromyalgia Blurry vision, left eye Dizziness Headache Fall Postoperative pain Acute pain of left foot Postoperative wound infection Cellulitis Incisional hernia Gastroesophageal reflux disease Urinary frequency Urge incontinence Urinary urgency Migraines Lamar's palsy Depression with anxiety Ulcer Lipoma Stroke Osteoarthritis Neuropathy Kidney stones Irritable bowel syndrome Hives Hearing problem Carpal tunnel syndrome Arthritis Seasonal allergies Home Medications ?Medication ?Instructions ?Recorded ?Last Taken ?Type topiramate 200 mg tablet 200 mg PO QHS headaches 08/15/18 08/21/24 History Handicap Placard #1 ea 05/03/20 Unknown Rx baclofen 10 mg tablet 10 mg PO TID 03/23/21 08/21/24 History walker (Ultra-Light Rollator misc) #1 ea 09/26/21 Unknown Rx quetiapine 300 mg tablet (Seroquel) 300 mg PO QHS 02/22/22 08/21/24 History walker (Ultra-Light Rollator misc) #1 ea 08/10/22 Unknown Rx hydroxychloroquine 200 mg tablet 200 mg PO BID 08/15/22 08/22/24 History Handicap Placard #1 ea 03/09/23 Unknown Rx wheelchair #1 ea 03/09/23 Unknown Rx carbamazepine 200 mg tablet 200 mg PO DAILY seizures 04/17/23 08/22/24 History fremanezumab-vfrm 225 mg/1.5 mL 225 mg subcut QMONTH 04/17/23 Unknown History subcutaneous auto-injector (Ajovy) nortriptyline 10 mg capsule 30 mg PO QHS 04/17/23 08/21/24 History prazosin 2 mg capsule 4 mg PO QHS 04/17/23 08/21/24 History folic acid 1 mg tablet 1 mg PO DAILY 06/08/23 08/21/24 History quetiapine 400 mg tablet 400 mg PO QHS 06/08/23 08/21/24 History cholecalciferol (vitamin D3) 1,250 1,250 mcg PO QWEEK 08/31/23 08/21/24 History mcg (50,000 unit) capsule Rollator walker #1 ea 02/21/24 Unknown Rx epinephrine 0.3 mg/0.3 mL 0.3 mg (0.3 mL) IM Q5-15M PRN 02/22/24 Unknown Rx injection, auto-injector (EpiPen anaphylaxis #2 ea 2-Raymond) ubrogepant 100 mg tablet (Ubrelvy) 100 mg PO DAILY PRN migraine 04/04/24 Unknown Rx headache #10 tabs methotrexate sodium 2.5 mg tablet 25 mg PO TU 04/28/24 08/21/24 History psyllium seed (sugar) oral powder 1 tbsp PO .COMPLEX PRN constipation 04/28/24 08/21/24 History (Metamucil (sugar) oral powder) simvastatin 20 mg tablet 20 mg PO QPM #90 tabs 04/30/24 08/21/24 Rx lactulose 10 gram/15 mL (15 mL) 15 ml PO TID #300 mL 07/09/24 08/21/24 Rx oral solution pantoprazole 40 mg tablet,delayed 40 mg PO DAILY #90 tabs 07/09/24 08/22/24 Rx release promethazine 25 mg tablet 25 mg PO BID PRN nausea and 07/09/24 08/21/24 Rx vomiting #30 tabs linaclotide 145 mcg capsule 145 mcg PO QDAY #90 caps 08/05/24 08/21/24 Rx (Linzess) scopolamine base 1 mg over 3 days 1 patch transdermal Q3D PRN nausea 08/13/24 08/22/24 Rx transdermal patch and vomiting #10 ea gabapentin 600 mg tablet 600 mg PO TID nerve pain #90 tabs 08/20/24 08/22/24 Rx levetiracetam 1,000 mg tablet 1,000 mg PO BID 08/21/24 08/22/24 History dicyclomine 10 mg capsule 10 mg PO BID PRN abdominal pain 09/23/24 Unknown Rx #120 caps ondansetron 4 mg disintegrating 4 mg PO Q6H PRN nausea and 09/23/24 Unknown Rx tablet vomiting #60 tabs prochlorperazine maleate 10 mg 10 mg PO Q8H PRN nausea and 09/23/24 Unknown Rx tablet (Compazine) vomiting #90 tabs buspirone 10 mg tablet 10 mg PO .2-4X PER DAY 10/02/24 Unknown History galcanezumab-gnlm 120 mg/mL 120 mg subcut DAILY PRN migraine 10/02/24 Unknown History subcutaneous pen injector headache (Emgality Pen) oxycodone-acetaminophen 5 mg-325 1 tab PO Q6H PRN PRN Pain 3 days 10/02/24 Unknown Rx mg tablet #12 TABLETS Allergy/AdvReac Type Severity Reaction Status Date / Time venom-honey bee Allergy Severe severe Verified 10/03/24 09:46 venom-wasp Allergy Severe severe Verified 10/03/24 09:46 coconut Allergy Intermediate Hives Verified 10/03/24 09:46 doxycycline Allergy Intermediate Rash Verified 10/03/24 09:46 mushroom Allergy Intermediate Hives Verified 10/03/24 09:46 ciprofloxacin (From Cipro) Allergy Rash Verified 10/03/24 09:46 erythromycin base Allergy Anaphylaxis Verified 10/03/24 09:46 iodine Allergy Anaphylaxis Verified 10/03/24 09:46 latex Allergy Rash Verified 10/03/24 09:46 metronidazole (From Flagyl) Allergy Anaphylaxis Verified 10/03/24 09:46 naproxen (From Naprosyn) Allergy Anaphylaxis Verified 10/03/24 09:46 Penicillins Allergy Anaphylaxis Verified 10/03/24 09:46 shellfish derived Allergy Anaphylaxis Verified 10/03/24 09:46 lithium AdvReac Intermediate Mood Verified 10/03/24 09:46 changes adhesive AdvReac Mild BLISTERS Verified 10/03/24 09:46 sulfamethoxazole (From AdvReac Hives Verified 10/03/24 09:46 Bactrim) trimethoprim (From Bactrim) AdvReac Hives Verified 10/03/24 09:46 Family History Father Asthma Grandfather No problems noted. Grandmother Asthma Brother Lung cancer Diabetes Hypertension Grandfather Asthma Grandmother Asthma Hypertension Mother Diabetes Aunt Diabetes Son Seizures Asthma Surgical History (Updated 10/03/24 @ 10:09 by Amada Ching) Hx of surgical procedure History of colonoscopy History of esophagogastroduodenoscopy (EGD) Hx of surgical procedure Status post left foot surgery S/P left knee surgery S/P umbilical hernia repair, follow-up exam History of bladder repair surgery History of spinal surgery History of appendectomy History of hysterectomy History of orthopedic surgery History of carpal tunnel surgery of right wrist Social History Smoking Status: Light Smoker (<10/day) quit status: considering quitting alcohol intake: never substance use type: does not use caffeine: No what type of physical activity do you participate in: none Audit: Pertinent Findings Pertinent Findings EKG Perinent findings: 08/22/2024. Normal sinus rhythm. Stress test pertinent findings: May 10, 2023. EF 68%. No ischemia. No infarct. Echo (EF%) pertinent findings: May 09, 2023. EF of 55%. RVSP is 20 mmHg. No aortic stenosis. Consult pertinent findings: April 17, 2023. Dr. Handy. 1. Syncope?chronic-orthostatic blood pressure readings are negative. Recent Holter did not show any significant arrhythmias. Check echo (see above) check carotid Dopplers. 2. Chest pain?chronic-will check stress test to rule out ischemia. (See above) Additional pertinent findings: 03/20/2023. Holter monitor. Predominant heart rate is normal sinus rhythm. 1 ventricular ectopic beat. 3 supraventricular ectopic beats. 48-hour diary noted shortness of breath and hard to breathe which correlated with sinus tachycardia. Recommendation Anesthesia Recommendation Anesthesia recommendation: OPTIMIZED for anesthesia
[2024-10-13] VITALS (11 sets, daily range): BP systolic 102–119; BP diastolic 53–99; PULSE 84–90; RESP 16–20; TEMP 36.1–36.6; O2SAT 87–100; BMI 29.1
--- NOTE | 2024-10-13 10:47 | EKG12_ITS ---
Test Reason : PREOP Blood Pressure : */* mmHG Vent. Rate : 86 BPM Atrial Rate : 86 BPM P-R Int : 146 ms QRS Dur : 94 ms QT Int : 380 ms P-R-T Axes : 26 51 35 degrees QTcB Int : 454 ms Normal sinus rhythm Normal ECG When compared with ECG of 22-Aug-2024 14:11, No significant change was found Confirmed by DHARMESH PLUNKETT, WELLINGTON ([id number]), commissioning editor ATIF CINTRON ([id number]) on 10/15/2024 7:13:54 AM Referred By: Damaso Mcgarry Confirmed By: WELLINGTON BARROSO MD
--- NOTE | 2024-10-13 11:16 | PRE.ANES_ITS ---
ASA Classification* ASA Classification ASA Classification: 3 Assessment & Plan Anesthesia* Anesthesia Assessment Anesthesia Assessment: Discussed sedation and/or anesthesia options, risks, benefits, and alternatives with patient/parents/legal guardian/POA. Questions invited. The patient/parents/legal guardian/POA seems to understand and agrees to proceed with anesthesia plan. Reviewed the physical assessment, medical history, allergy history and patient home medications list prior to surgery/procedure/anesthetic and documented any changes. Performed airway and anesthesia risk assessments. Anesthesia Type Anesthesia Type: General (hx of cva, weakness. consider avoiding SUX) Anesthesia Focused Assessment* Temperature: 97.8 F Pulse Rate: 84 Blood Pressure: 115/99 Respiratory Rate: 16 Pulse Ox: 94 Airway Assessment Mouth opens: >3 cm Mallampati Score: II Labs Anesthesia Preop lab: CBC WBC 5.1 K/mm3 (4.4-11.0) 10/02/24 12:10/02/24 RBC 2.99 M/mm3 (4.2-5.4) L 10/02/24 12:10/02/24 Hgb 10.7 g/dL (12.0-15.0) L 10/02/24 12: 5 Hct 31.9 % (37-47) L 10/02/24 12:10/02/24 Plt Count 141 K/mm3 (150-450) L 10/02/24 12:10/02/24 CHEMISTRY Potassium 3.4 mmol/L (3.3-5.1) 10/02/24 12:10/02/24 Sodium 145 mmol/L (133-145) 10/02/24 12:10/02/24 Magnesium 2.1 mg/dL (1.6-2.6) 02/06/24 06:02/06/24 BUN 7 mg/dL (4-19) 10/02/24 12:10/02/24 Creatinine 0.68 mg/dL (0.70-1.20) L 10/02/24 12: Glucose 90 mg/dL (70-99) 10/02/24 12:10/02/24 TSH 1.050 uIU/mL (0.358-3.740) 04/28/24 11:23 04/10 COAG PT 12.7 SECONDS (11.7-14.9) 07/13/21 17:40 HCG, Quant 6 mIU/mL (1-3) H 02/02/22 17:44 02/02/22 Urine Test Negative Negative 12/07/22 15:45 12/07/22 Pre-Assessment Diagnosis/Proposed Procedure Planned Operative Procedure(s): LAP DAK[place] WITH GRAMS Anesthesia History 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 WILL HAVE OFF Patient instructed to have device shut off --Does patient have Pacemaker No 10/13/24 11:03 or ICD? When Was Last Pacemaker Check QUESTION #4 FULL TEXT: You/Your Family Experience fever (hyperthermia) with Anesthesia Last Oral Intake Last Oral intake: Last Oral Intake NPO since 16:00 10/13/24 11:03 Meds taken in AM with sips of Yes 10/13/24 11:03 water? 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 Female Yes 10/03/24 09:57 HX of Motion Sickness Yes 10/03/24 09:57 HX of N/V After Surgery Yes 10/03/24 09:57 Non-Smoker No 10/03/24 09:57 Duration of Surgery greater No 10/03/24 09:57 than 60 minutes Number of Risk Factors 3 10/03/24 09:57 PONV Score Moderate Risk 10/03/24 09:57 Height & Weight Height & Weight: Anesthesia: Height & Weight Height 5 ft 7 in 10/13/24 11:03 Weight: 84.368 kg 10/13/24 11:03 Body Mass Index (BMI) 29.1 10/13/24 11:03 Respiratory Assessment Respiratory Assessment - manufacturing technology analyst: Respiratory Tract Infection Hx - manufacturing technology analyst Hx Respiratory Tract Infection No 10/03/24 09:57 STOP Sleep Apnea STOP Sleep Apnea - manufacturing technology analyst: STOP Sleep Apnea - manufacturing technology analyst Hx Hypertension No 10/03/24 09:57 Hx Sleep Apnea No 10/03/24 09:57 CPAP BIPAP Do you snore loudly (louder No 10/03/24 09:57 than talking or can be heard Do you often feel tired/ No 10/03/24 09:57 fatigued/ sleepy during daytime? Has anyone observed you stop No 10/03/24 09:57 breathing during sleep? STOP Results Negative 10/03/24 09:57 QUESTION #5 FULL TEXT : Do you snore loudly (louder than talking or can be heard through closed doors)? Tobacco Use History Tobacco Use History - manufacturing technology analyst: Tobacco Use History - manufacturing technology analyst Tobacco Use Smoking Status Light Smoker (<10/day) 10/03/24 09:57 Hx Tobacco Use Yes 10/03/24 09:57 Years Smoking Packs Smoked per Day Smoking Cessation Date was within the last 15 years Hx Smoking Cessation Date Hx Smoking Cessation No 10/03/24 09:57 Counseling Hematologic Medial History Hematologic Hx - manufacturing technology analyst: Hematologic Medical Hx - rn clinical documentation Hx of Blood Transfusion No 10/03/24 09:57 Hx of Transfusion in last 3 No 10/03/24 09:57 Months Date of Last Transfusion (if within last 3 months) Ever experience any problems No 10/03/24 09:57 with transfusion(s)? Specify any problems Hx of Preganancy in last 3 No 10/03/24 09:57 Months Nurse Filling Out Transfusion DSCHRIBER 10/03/24 09:57 & Questions: Date: 10/03/24 10/03/24 09:57 Time: 09:59 10/03/24 09:57 Patient unable to answer at this time (ie. 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: /Reproductive Hx- manufacturing technology analyst Hx Now No 10/03/24 09:57 Gestational Age (in weeks): EDC: Hx Hx Para Hx Section SAB No 10/03/24 09:57 Active Medications Active Medications: Current Medications Generic Name Dose Route Start Last Admin Trade Name Freq PRN Reason Stop Dose Admin Lactated Ringer's 1,000 mls @ 15 mls/hr 10/13/24 11:00 IV .Q48H LUKAS Clindamycin Phosphate 900 mg in 50 mls @ 75 mls/hr 10/13/24 11:00 Cleocin IV 10/13/24 11:39 INTRAOP ONE PFSH Medical History Erosive gastritis Esophagitis Spinal cord stimulator status Difficult intravenous access Esophageal dilatation Gastroparesis Chronic nausea Galactorrhea GERD (gastroesophageal reflux disease) High cholesterol PTSD (post-traumatic stress disorder) History of stress test History of echocardiogram Cardiology follow-up encounter Bradycardia Degenerative disc disease Superior glenoid labrum lesion of right shoulder Constipation Early satiety Cough Nausea and vomiting Epigastric pain Flu vaccine need Lupus Debility Chronic lumbar radiculopathy Health care maintenance Hematemesis Vomiting Elevated antinuclear antibody (PAT) level Positive P-ANCA titer GI bleed Colon polyp Fatty liver Sludge in gallbladder Post-menopausal Anxiety Seizures Smoker Wheelchair dependent Foot pain, left Lower GI bleeding Dysphagia Elevated blood pressure reading Hypokalemia Abdominal pain UTI (urinary tract infection) Uterine cancer Cervical cancer Interstitial cystitis Acute cystitis Hematuria Flank pain Fibromyalgia Blurry vision, left eye Dizziness Headache Fall Postoperative pain Acute pain of left foot Postoperative wound infection Cellulitis Incisional hernia Gastroesophageal reflux disease Urinary frequency Urge incontinence Urinary urgency Migraines Lamar's palsy Depression with anxiety Ulcer Lipoma Stroke Osteoarthritis Neuropathy Kidney stones Irritable bowel syndrome Hives Hearing problem Carpal tunnel syndrome Arthritis Seasonal allergies Home Medications ?Medication ?Instructions ?Recorded ?Last Taken ?Type topiramate 200 mg tablet 200 mg PO QHS headaches 12/2608/21/24 History Handicap Placard #1 ea 05/03/20 Unknown Rx baclofen 10 mg tablet 10 mg PO TID 03/23/21 06:00 History walker (Ultra-Light Rollator misc) #1 ea 09/26/21 Unkn own Rx quetiapine 300 mg tablet (Seroquel) 300 mg PO QHS 02/0708/21/24 History walker (Ultra-Light Rollator misc) #1 ea 08/10/22 Unkn own Rx hydroxychloroquine 200 mg tablet 200 mg PO BID 3 10/13/24 06:00 History Handicap Placard #1 ea 03/09/23 Unknown Rx wheelchair #1 ea 03/09/23 Unknown Rx carbamazepine 200 mg tablet 200 mg PO DAILY seizures 0 04/17/23 10/13/24 06:00 History fremanezumab-vfrm 225 mg/1.5 mL 225 mg subcut QMONTH 0 04/17/23 10/02/24 History subcutaneous auto-injector (Ajovy) nortriptyline 10 mg capsule 30 mg PO QHS 04/17/2308/07 History prazosin 2 mg capsule 4 mg PO QHS 04/17/23 5 History folic acid 1 mg tablet 1 mg PO DAILY 06/08/2308/21 History quetiapine 400 mg tablet 400 mg PO QHS 06/08/2308/21 History cholecalciferol (vitamin D3) 1,250 1,250 mcg PO QWEEK 08/31/23 08/21/24 History mcg (50,000 unit) capsule Rollator walker #1 ea 02/21/24 Unknown Rx epinephrine 0.3 mg/0.3 mL 0.3 mg (0.3 mL) IM Q5-15M FL N 02/22/24 Unknown Rx injection, auto-injector (EpiPen anaphylaxis #2 ea 2-Raymond) ubrogepant 100 mg tablet (Ubrelvy) 100 mg PO DAILY PRN migraine 04/04/24 Unknown Rx headache #10 tabs methotrexate sodium 2.5 mg tablet 25 mg PO TU 04/28/24 10/07/24 History psyllium seed (sugar) oral powder 1 tbsp PO .COMPLEX P RN constipation 04/28/24 08/21/24 History (Metamucil (sugar) oral powder) simvastatin 20 mg tablet 20 mg PO QPM #90 tabs 08/21/24 Rx lactulose 10 gram/15 mL (15 mL) 15 ml PO TID #300 mL 0 07/09/24 08/21/24 Rx oral solution pantoprazole 40 mg tablet,delayed 40 mg PO DAILY #90 t abs 07/09/24 10/13/24 06:00 Rx release promethazine 25 mg tablet 25 mg PO BID PRN nausea and 07/09/24 08/21/24 Rx vomiting #30 tabs linaclotide 145 mcg capsule 145 mcg PO QDAY #90 caps 0 08/05/24 08/21/24 Rx (Linzess) scopolamine base 1 mg over 3 days 1 patch transdermal Q3D PRN nausea 08/13/24 08/22/24 Rx transdermal patch and vomiting #10 ea gabapentin 600 mg tablet 600 mg PO TID nerve pain #90 tabs 08/20/24 10/13/24 06:00 Rx levetiracetam 1,000 mg tablet 1,000 mg PO BID 08/21/24 10/13/24 06:00 History dicyclomine 10 mg capsule 10 mg PO BID PRN abdominal p ain 09/23/24 Unknown Rx #120 caps ondansetron 4 mg disintegrating 4 mg PO Q6H PRN nausea and 09/23/24 Unknown Rx tablet vomiting #60 tabs prochlorperazine maleate 10 mg 10 mg PO Q8H PRN nausea and 09/23/24 Unknown Rx tablet (Compazine) vomiting #90 tabs buspirone 10 mg tablet 10 mg PO .2-4X PER DAY 10/0210/13/24 06:00 History galcanezumab-gnlm 120 mg/mL 120 mg subcut DAILY PRN mi graine 10/02/24 Unknown History subcutaneous pen injector headache (Emgality Pen) oxycodone-acetaminophen 5 mg-325 1 tab PO Q6H PRN PRN Pain 3 days 10/02/24 Unknown Rx mg tablet #12 TABLETS Allergy/AdvReac Type Severity Reaction Status Date / Time venom-honey bee Allergy Severe severe Verified 10/13/24 10:59 venom-wasp Allergy Severe severe Verified 10/13/24 10:59 coconut Allergy Intermediate Hives Verified 10/13/24 10:59 doxycycline Allergy Intermediate Rash Verified 10/13/24 10:59 mushroom Allergy Intermediate Hives Verified 10/13/24 10:59 ciprofloxacin (From Cipro) Allergy Rash Verified 10/13/24 10:59 erythromycin base Allergy Anaphylaxis Verified 10/13/24 10:59 iodine Allergy Anaphylaxis Verified 10/13/24 10:59 latex Allergy Rash Verified 10/13/24 10:59 metronidazole (From Flagyl) Allergy Anaphylaxis Verified 10/13/24 10:59 naproxen (From Naprosyn) Allergy Anaphylaxis Verified 10/13/24 10:59 Penicillins Allergy Anaphylaxis Verified 10/13/24 10:59 shellfish derived Allergy Anaphylaxis Verified 10/13/24 10:59 lithium AdvReac Intermediate Mood Verified 10/13/24 10:59 changes adhesive AdvReac Mild BLISTERS Verified 10/13/24 10:59 sulfamethoxazole (From AdvReac Hives Verified 10/13/24 10:59 Bactrim) trimethoprim (From Bactrim) AdvReac Hives Verified 10/13/24 10:59 Family History Father Asthma Grandfather No problems noted. Grandmother Asthma Brother Lung cancer Diabetes Hypertension Grandfather Asthma Grandmother Asthma Hypertension Mother Diabetes Aunt Diabetes Son Seizures Asthma Surgical History Hx of surgical procedure History of colonoscopy History of esophagogastroduodenoscopy (EGD) Hx of surgical procedure Status post left foot surgery S/P left knee surgery S/P umbilical hernia repair, follow-up exam History of bladder repair surgery History of spinal surgery History of appendectomy History of hysterectomy History of orthopedic surgery History of carpal tunnel surgery of right wrist Social History Smoking Status: Light Smoker (<10/day) quit status: considering quitting alcohol intake: never substance use type: does not use caffeine: No what type of physical activity do you participate in: none Review of Systems (Anesthesia) ROS Narrative System reviewed and no additional complaints, except as documented.
[2024-10-13] MEDS: Lactated Ringers 1,000 ML 15 ML IV (11:21)
--- NOTE | 2024-10-13 12:25 | PCM.HP.BLA ---
History and Physical Date of Admission: 10/13/24 Intake Vital Signs 09/24/2512:17 10/02/2507:54 Height 5 ft 7 in 5 ft 7 in Weight: 186 lb BMI 29.1 BP 105/71 Blood Pressure Location Lt brachial Position Sitting Respiration 17 Pulse 87 Pulse Source Monitor Pulse Oximetry (%) 95 Oxygen Delivery Method room air Intake Visit Reasons: ED F/U - GALLBLADDER Chief Complaint: ED f/u gallbladder Is patient in pain?: Yes (right sided ache) Allergies venom-honey bee Allergy (Severe, Verified 10/01/24 08:55) severevenom-wasp Allergy (Severe, Verified 10/01/24 08:55) severecoconut Allergy (Intermediate, Verified 10/01/24 08:55) Hivesdoxycycline Allergy (Intermediate, Verified 10/01/24 08:55) Rashmushroom Allergy (Intermediate, Verified 10/01/24 08:55) Hivesciprofloxacin (From Cipro) Allergy (Verified 10/01/24 08:55) Rasherythromycin base Allergy (Verified 10/01/24 08:55) Anaphylaxisiodine Allergy (Verified 10/01/24 08:55) Anaphylaxislatex Allergy (Verified 10/01/24 08:55) Rashmetronidazole (From Flagyl) Allergy (Verified 10/01/24 08:55) Anaphylaxisnaproxen (From Naprosyn) Allergy (Verified 10/01/24 08:55) AnaphylaxisPenicillins Allergy (Verified 10/01/24 08:55) Anaphylaxisshellfish derived Allergy (Verified 10/01/24 08:55) Anaphylaxislithium Adverse Reaction (Intermediate, Verified 10/01/24 08:55) Mood changesadhesive Adverse Reaction (Mild, Verified 10/01/24 08:55) BLISTERSsulfamethoxazole (From Bactrim) Adverse Reaction (Verified 10/01/24 08:55) Hivestrimethoprim (From Bactrim) Adverse Reaction (Verified 10/01/24 08:55) Hives Medications ?Medication ?Instructions ?Recorded ?Confirmed ?Type topiramate 200 mg tablet 200 mg PO QHS headaches 08/15/18 10/01/24 History Handicap Placard #1 ea 05/03/20 10/01/24 Rx baclofen 10 mg tablet 10 mg PO TID 03/23/21 10/01/24 History walker (Ultra-Light Rollator misc) #1 ea 09/26/21 10/01/24 Rx quetiapine 300 mg tablet (Seroquel) 300 mg PO QHS 02/22/22 10/01/24 History walker (Ultra-Light Rollator misc) #1 ea 08/10/22 10/01/24 Rx hydroxychloroquine 200 mg tablet 200 mg PO BID 08/15/22 10/01/24 History Handicap Placard #1 ea 03/09/23 10/01/24 Rx wheelchair #1 ea 03/09/23 10/01/24 Rx carbamazepine 200 mg tablet 200 mg PO DAILY seizures 04/17/23 10/01/24 History fremanezumab-vfrm 225 mg/1.5 mL 225 mg subcut QMONTH 04/17/23 10/01/24 History subcutaneous auto-injector (Ajovy) nortriptyline 10 mg capsule 30 mg PO QHS 04/17/23 10/01/24 History prazosin 2 mg capsule 4 mg PO QHS 04/17/23 10/01/24 History folic acid 1 mg tablet 1 mg PO DAILY 06/08/23 10/01/24 History quetiapine 400 mg tablet 400 mg PO QHS 06/08/23 10/01/24 History cholecalciferol (vitamin D3) 1,250 1,250 mcg PO QWEEK 08/31/23 10/01/24 History mcg (50,000 unit) capsule Rollator walker #1 ea 02/21/24 10/01/24 Rx epinephrine 0.3 mg/0.3 mL 0.3 mg (0.3 mL) IM Q5-15M PRN 02/22/24 10/01/24 Rx injection, auto-injector (EpiPen anaphylaxis #2 ea 2-Raymond) ubrogepant 100 mg tablet (Ubrelvy) 100 mg PO DAILY PRN migraine 04/04/24 10/01/24 Rx headache #10 tabs methotrexate sodium 2.5 mg tablet 25 mg PO TU 04/28/24 10/01/24 History psyllium seed (sugar) oral powder 1 tbsp PO .3x/wk 04/28/24 10/01/24 History (Metamucil (sugar) oral powder) simvastatin 20 mg tablet 20 mg PO QPM #90 tabs 04/30/24 10/01/24 Rx lactulose 10 gram/15 mL (15 mL) 15 ml PO TID #300 mL 07/09/24 10/01/24 Rx oral solution pantoprazole 40 mg tablet,delayed 40 mg PO DAILY #90 tabs 07/09/24 10/01/24 Rx release promethazine 25 mg tablet 25 mg PO BID PRN nausea and 07/09/24 10/01/24 Rx vomiting #30 tabs linaclotide 145 mcg capsule 145 mcg PO QDAY #90 caps 08/05/24 10/01/24 Rx (Linzess) scopolamine base 1 mg over 3 days 1 patch transdermal Q3D PRN nausea 08/13/24 10/01/24 Rx transdermal patch and vomiting #10 ea gabapentin 600 mg tablet 600 mg PO TID nerve pain #90 tabs 08/20/24 10/01/24 Rx levetiracetam 1,000 mg tablet 1,000 mg PO BID 08/21/24 10/01/24 History dicyclomine 10 mg capsule 10 mg PO BID PRN abdominal pain 09/23/24 10/01/24 Rx #120 caps ondansetron 4 mg disintegrating 4 mg PO Q6H PRN nausea and 09/23/24 10/01/24 Rx tablet vomiting #60 tabs prochlorperazine maleate 10 mg 10 mg PO Q8H PRN nausea and 09/23/24 10/01/24 Rx tablet (Compazine) vomiting #90 tabs oxycodone-acetaminophen 5 mg-325 1 tab PO Q8H PRN pain 5 days #15 09/24/24 10/01/24 Rx mg tablet (Percocet) tabs PFSH Medical History Esophagitis Spinal cord stimulator status Difficult intravenous access Esophageal dilatation Gastroparesis Chronic nausea Screening for thyroid disorder Galactorrhea Blurry vision GERD (gastroesophageal reflux disease) High cholesterol PTSD (post-traumatic stress disorder) History of stress test History of echocardiogram Cardiology follow-up encounter Chest pain Syncope Palpitations Hyperlipidemia Bradycardia Hematemesis of unknown cause Degenerative disc disease Superior glenoid labrum lesion of right shoulder Constipation Early satiety Rotator cuff injury Right shoulder pain Cough Nausea and vomiting Epigastric pain Flu vaccine need Lupus Debility Chronic lumbar radiculopathy Health care maintenance Hematemesis Vomiting Elevated antinuclear antibody (PAT) level Positive P-ANCA titer GI bleed Colon polyp Fatty liver Sludge in gallbladder Post-menopausal Anxiety Seizures Smoker Wheelchair dependent Wheel chair as ambulatory aid Foot pain, left Lower GI bleeding Dysphagia Elevated blood pressure reading Hypokalemia Abdominal pain UTI (urinary tract infection) Uterine cancer Cervical cancer Interstitial cystitis Acute cystitis Hematuria Flank pain Fibromyalgia Blurry vision, left eye Dizziness Headache Fall Postoperative pain Acute pain of left foot Postoperative wound infection Cellulitis Incisional hernia Gastroesophageal reflux disease Urinary frequency Urge incontinence Urinary urgency Migraines Lamar's palsy Depression with anxiety Ulcer Lipoma Stroke Seizures Osteoarthritis Neuropathy Kidney stones Irritable bowel syndrome Hives Hearing problem Carpal tunnel syndrome Arthritis Seasonal allergies Surgical History History of repair of rotator cuff Hx of surgical procedure History of colonoscopy History of esophagogastroduodenoscopy (EGD) Hx of surgical procedure Status post left foot surgery S/P left knee surgery S/P umbilical hernia repair, follow-up exam History of bladder repair surgery History of spinal surgery History of appendectomy History of hysterectomy History of orthopedic surgery History of carpal tunnel surgery of right wrist Family History Father AsthmaGrandfather No problems noted. Grandmother AsthmaBrother Lung cancer Diabetes HypertensionGrandfather AsthmaGrandmother Asthma HypertensionMother DiabetesAunt DiabetesSon Seizures Asthma Social History (Updated 10/01/24 @ 08:54 by Amanda Katz) Smoking Status: Light Smoker (<10/day) quit status: considering quitting alcohol intake: never substance use type: does not use caffeine: No what type of physical activity do you participate in: none HPI HPI HPI: Patient is a 49-year-old female with a lot of comorbidities that comes in with right upper quadrant pain. She says been going on for several years. She recently saw GI and had a EGD which showed erosive gastropathy with duodenitis. Patient reports that she is constantly nauseated and has difficulty eating certain foods. ROS General General: Yes weight change; No appetite, fatigue, colon cancer, breast cancer or weakness Additional Details: wt loss over past few months. HEENT HEENT: Yes difficulty swallowing; No eye injury, eye surgery, swollen glands or hoarseness Endo Endocrine: No thyroid disease, diabetes mellitus, thyroid cancer, Hair loss, heat intolerance or cold intolerance Skin Skin: No rash or changing moles Musc Musculoskeletal: Yes back problems, arthritis and rheumatoid arthritis; No gout or joint pain Cardio Cardiovascular: No murmur, pacemaker, heart disease, atrial fibrillation, high blood pressure, heart attack, heart stent, palpitations, shortness of breath with exertion or chest pain Psych Psychiatric: No depression, anxiety or hearing voices Resp Respiratory: No shortness of breath, No sleep apnea, No cough, No COPD, No asthma, No emphysema and No wheezing Gastro Gastrointestinal: Yes abdominal pain, Yes nausea or vomiting, Yes diarrhea, Yes constipation, No blood in stool, Yes acid reflux, No hemorrhoids, No ulcers, Yes gallbladder problem and No black,tarry stools Esteban Hematologic: No blood thinners, No blood disorders, No bleeding, Yes anemia and No blood clots Neuro Neurologic: No system reviewed and no additional complaints, except as documented, No as per HPI, No abnormal gait, No abnormal hearing, No abnormal movements, No abnormal speech, No behavioral changes, No burning sensations, No confusion, No convulsions, No disequilibrium, No dizziness, No localized weakness, No frequent falls, No headache(s), No lack of coordination, No loss of vision, No memory loss, No numbness, No other visual disturbances, No radicular pain, No restless legs, No sensory deficit, No syncope, No tingling, No tremor(s), No weakness and No other Exam Const General: cooperative Orientation: alert and oriented x3 HENMT Head: normal to inspection Neck Neck: normal visual inspection and full ROM Chest Chest palpation & inspection: normal inspection of the chest Resp Effort & Inspection: normal respiratory effort Auscultation: clear to auscultation bilaterally Cardio Rate: regular rate Rhythm: regular rhythm GI Inspection: non-distended Palpation: soft and nontender Skin General: no rashes or lesions noted Neuro General: patient alert and patient oriented x3 Extrem General: full ROM Psych Appearance: grossly normal Mental Status: mental status grossly normal Assessment and Plan Assessment and Plan (1) Abnormal biliary HIDA scan: Status: Acute Plan: The patient has had several ultrasounds and CT scans that did not show any inflammation around the gallbladder. She had a HIDA that showed no filling of the gallbladder for 2 hours. Unsure as to why her HIDA would not fill the gallbladder if there were no stones but she does say that in the past she has had sludge in her gallbladder as well. I discussed laparoscopic cholecystectomy with the patient in detail. I informed her that this may not take care of her pain as she does have chronic duodenitis and that could be causing her pain. Patient would still likely gallbladder removed. I discussed the procedure in detail with the patient. I discussed the risks, benefits, and alternatives of the procedure. I discussed the risks including but not limited to bleeding, infection, injury to surrounding organs such as the liver, bile duct, bowels. I did discuss the possibility of having to convert to an open procedure as well as the possibility that if any injuries occurred this may necessitate further surgery at a tertiary care center. Damaso Mcgarry MD Pager: [facility] [address] [place] [address], [address] [place] [address] Office: I have examined the patient and the H&P has been reviewed. There are no clinical changes since date of exam.
[2024-10-13] MEDS: Clindamycin 900 MG/50 ML BAG 75 MG IV (12:49)
--- NOTE | 2024-10-13 13:00 | GALL_PTH ---
PATIENT: CHARLOTTE VASQUEZ LOC: [facility] [place] U#:[id number] AGE/SX: 49/F ROOM: RE10/13/[address]: Dr. Damaso Mcgarry MD : 1975 BED: DIS: 10/13/2024 SPEC #: [id number] RECD: 10/13/24 14:42 STATUS: RAMON REBrent #: [id number] CHERYL: 10/13/24 13:[address]: Damaso Mcgarry DEPT: SURGICAL PATHOLOGY RECD BY: Jona Linares ENTERED: 10/13/24 15:02 SP TYPE: CHRISTINE EMANUEL DR: Dr. Gayle Munoz MD Tissues: A - Gallbladder, NOS Procedures: Surgery Specimen Level III HEADER OPERATION: Laparoscopic cholecystectomy PRE-OP DIAGNOSIS: Abnormal biliary HIDA scan TISSUE SUBMITTED: A- Gallbladder MICROSCOPIC DIAGNOSIS A. Gallbladder, abnormal biliary HIDA scan, cholecystectomy: - Chronic cholecystitis, cholesterolosis. MICROSCOPIC DESCRIPTION Slides are reviewed. GROSS DESCRIPTION A. Received in formalin labeled with the patient's name and date of . Designated as gallbladder is a 7.4 x 2.9 x 1.1 cm doyle-pink to yellow, fatty and intact gallbladder with attached patent cystic duct (inked black, shaved). A lymph node is not present. Opening reveals yellow-green, tenacious bile and devoid of choleliths. The mucosa is doyle-yellow and granular with a maximum wall thickness of 0.1 cm. Cholesterolosis is present. Spring Coverer sections are submitted in 1 cassette. [place] 10/13/2024 CPT:01617
[2024-10-13] MEDS: Bupiv/Epi 0.25% 30 ML Vial (13:21)
--- NOTE | 2024-10-13 13:22 | PCM.OPRPT ---
Operative Report (Standard) Operative Information Date of Procedure: 10/13/24 Pre-Operative Diagnosis: Biliary dyskinesia Post-Operative Diagnosis: Biliary dyskinesia Surgery/Procedure Performed: Laparoscopic cholecystectomy motor boss: Yes Partition Assembler: Robert Rodriguez Tasks completed by household personal assistant: Opening & closing and Retracting Type of Anesthesia: General/Regional RN Documented Start/Stop Times: Operation Date: 10/13/24 13:00 Case Time Into Pre-Op 10/13/24 10:44 Anesthesia Start 10/13/24 12:38 Into Room 10/13/24 12:38 Out of Pre-Op 10/13/24 12:38 Procedure Start 10/13/24 12:59 Procedure Start Time: 12:59 Procedure Stop Time: 13:30 Select all DRAINS/GRAFTS/IMPLANTS that apply: None Estimated Blood Loss: 5 Specimen collected: Yes Description of specimen(s) removed: Gallbladder Description of surgery: After obtaining informed consent patient was brought back to the operating room. General anesthesia was induced. The abdomen was prepped and draped in usual sterile fashion. A small midline incision was made superior to the umbilicus and deepened to the level of fascia. The fascia was elevated and incised. Next the peritoneum was elevated and incised in the same fashion. Finger sweep was performed and the Blackwell trocar was placed into the abdomen. The balloon was inflated. The abdomen was inflated to 15 mmHg. Next a camera was introduced into the abdomen and the abdomen was inspected. Next under direct visualization three 5-mm ports were placed one subxiphoid and 2 subcostal. Next the gallbladder was elevated and retracted toward the right shoulder. The peritoneum was stripped from the gallbladder. The infundibulum was located and retracted laterally. Next the triangle of Calot was dissected and the cystic duct and cystic artery were identified. Cholangiograms were not attempted as the patient has anaphylactic reaction to iodine. Three hemolock clips were placed across the cystic duct. The cystic duct was then divided leaving 2 clips on the stump. The cystic artery was clipped and divided in the same fashion. The hook cautery was then used to take the gallbladder off of the gallbladder bed. Hemostasis was obtained. Gallbladder fossa was irrigated and no active bleeding or bile leakage was noted. Next the camera was introduced in the subxiphoid port. An Endopouch bag was placed through the umbilical port and the gallbladder was placed into it. The gallbladder was then removed through the umbilical incision. The camera was then reinserted through the umbilical port. The gallbladder fossa was inspected once more and noted to be hemostatic with no leaking bile. The abdomen was suctioned dry. The 5 mm ports were removed under direct visualization. The umbilical port was then removed and the air was removed from the abdomen. Next using an 0 Vicryl suture the umbilical fascia was closed in a [id number] fashion. The umbilical port site was irrigated local anesthetic was administered to all the incisions. All the incisions were closed with interrupted subcuticular 4-0 Monocryl sutures followed by Steri-Strips and dressings. The patient was awoken and taken to PACU in stable condition. Surgical Findings: None Complications Complications: No Admit VTE Documentation VTE Mechan Device Prophylaxis: SCD's
--- NOTE | 2024-10-13 13:28 | EX.PCM.DISCH ---
Discharge Instructions Procedure Gallbladder Diet Discharge Diet: Light diet - advance as tolerated Activity Discharge Activity: May Not Drive (for 2-3 days or while taking narcotic pain medications.) and - (Do not drive, work heavy equipment or sign legal documents for 24 hours.) May shower in (days): 1 Lifting Restrictions: 20 lbs for 2 weeks Additional Activity Instructions:: Pain medication may cause nausea. You should typically eat light foods as you take your pain medications. Pain medication may also cause constipation. If this is a problem for you, please discuss with your doctor. Alternate ibuprofen and Tylenol for pain control, oxycodone for breakthrough pain Dressing / Incision Call your doctor if your incision/area has: Continuous Slow Oozing, Sudden Increased Bleeding, Increased Pain/ Swelling, Increased Redness and Foul Smelling Discharge Call your doctor if you observe: Fever of 101 or Higher Suture Line Care: Avoid Pulling/Pushing and Avoid Pinching/Bending Remove Dressing in: 2 days Additional Dressing/Incision Instructions:: Leave operative bandaids on for 2 days. When you remove dressing, leave Steri-Strips on until your follow-up appointment, or until the Steri-Strips fall off on their own. Follow Up Care Please Follow Up With: Damaso Mcgarry MD When: Please call to schedule 2 week follow up appointment. [phone] Test Results: Test results from this visit will be discussed in further detail at your follow-up appointment, if applicable. Discharge Plan Admission Attending Provider: Damaso Mcgarry Primary Care Provider: Gayle Munoz Instructions Print Language: Yemeni Discharge Orders/Prescriptions Prescriptions: New oxycodone 5 mg Tablet 5 - 10 mg PO Q4H PRN PRN (Reason: Pain Score 4-10) 5 Days Qty: 14 0RF No Action topiramate 200 mg tablet 200 mg PO QHS carbamazepine 200 mg tablet 200 mg PO DAILY baclofen 10 mg tablet 10 mg PO TID quetiapine [Seroquel] 300 mg tablet 300 mg PO QHS hydroxychloroquine 200 mg tablet 200 mg PO BID (DME) Handicap Placard See Rx Instructions .ROUTE .MEDSUPPLY Qty: 1 0RF Rx Instructions: As directed, length of time 3 years (DME) wheelchair See Rx Instructions .Route .MEDSUPPLY Qty: 1 0RF Rx Instructions: As directed folic acid 1 mg tablet 1 mg PO DAILY quetiapine 400 mg tablet 400 mg PO QHS methotrexate sodium 2.5 mg tablet 25 mg PO TU Rx Instructions: 10 tablets once weekly nortriptyline 10 mg capsule 30 mg PO QHS prazosin 2 mg capsule 4 mg PO QHS Ajovy Autoinjector 225 mg/1.5 mL auto-injector 225 mg subcut QMONTH (DME) Rollator walker See Rx Instructions .Route .MEDSUPPLY Qty: 1 0RF Rx Instructions: As directed epinephrine [EpiPen 2-Raymond] 0.3 mg/0.3 mL auto-injector 0.3 mg IM Q5-15M PRN (Reason: anaphylaxis) Qty: 2 1RF Rx Instructions: do not exceed 3 doses per episode Metamucil (sugar) Powder 1 tbsp PO .COMPLEX PRN (Reason: constipation) Rx Instructions: 1 tbsp orally twice a week PRN; 3x/wk lactulose 10 gram/15 mL (15 mL) solution 15 ml PO TID Qty: 300 0RF pantoprazole 40 mg tablet,delayed release (DR/EC) 40 mg PO DAILY Qty: 90 1RF promethazine 25 mg tablet 25 mg PO BID PRN (Reason: nausea and vomiting) Qty: 30 1RF cholecalciferol (vitamin D3) 1,250 mcg (50,000 unit) capsule 1,250 mcg PO QWEEK levetiracetam 1,000 mg tablet 1,000 mg PO BID buspirone 10 mg tablet 10 mg PO .2-4X PER DAY Emgality Pen 120 mg/mL pen injector 120 mg SUBCUT DAILY PRN (Reason: migraine headache) Patient Comments: [NO ORIGINAL SIG] oxycodone-acetaminophen 5-325 mg tablet 1 tab PO Q6H PRN PRN (Reason: Pain) 3 Days Qty: 12 0RF (DME) Handicap Placard See Rx Instructions .Route .MEDSUPPLY Qty: 1 0RF Rx Instructions: As directed, length of time 3 years (DME) Ultra-Light Rollator Misc See Rx Instructions .Route Qty: 1 0RF Rx Instructions: As directed (DME) Ultra-Light Rollator Misc See Rx Instructions .Route Qty: 1 0RF Rx Instructions: As directed Ubrelvy 100 mg tablet 100 mg PO DAILY PRN (Reason: migraine headache) Qty: 10 0RF simvastatin 20 mg tablet 20 mg PO QPM Qty: 90 1RF Linzess 145 mcg capsule 145 mcg PO QDAY Qty: 90 1RF scopolamine base 1 mg over 3 days patch 3 day 1 patch transdermal Q3D PRN (Reason: nausea and vomiting) Qty: 10 1RF gabapentin 600 mg tablet 600 mg PO TID Qty: 90 1RF dicyclomine 10 mg capsule 10 mg PO BID PRN (Reason: abdominal pain) Qty: 120 0RF prochlorperazine maleate [Compazine] 10 mg tablet 10 mg PO Q8H PRN (Reason: nausea and vomiting) Qty: 90 0RF ondansetron 4 mg tablet,disintegrating 4 mg PO Q6H PRN (Reason: nausea and vomiting) Qty: 60 1RF Referrals / Follow Up: Gayle Munoz MD [Primary Care Provider] - Disposition Disposition (needs filled in before D/C Order can be placed): Home, Self Care
--- NOTE | 2024-10-13 13:44 | PCM.POST.ANE ---
Anesthesia: Postop Eval I Current Vital Signs Temperature: 97.3 F Pulse Rate: 90 Blood Pressure: 109/60 Respiratory Rate: 20 Pulse Ox: 92 Oxygen Delivery Method: Nasal Cannula Oxygen Flow Rate (L/min): 2 Assessment Airway patent: Yes Spontaneous unlabored respirations: Yes Mental status: Awake nausea: Yes Vomiting: No Anesthesia Complication: No Fluid Hydration Crystalloid volume administer (ml): 250 Total IV fluid infused: 250 Progress Note Anesthesia document: Postop Eval 1 completed: Yes
--- NOTE | 2024-10-13 15:10 | POSTOPAN2_ITS ---
Anesthesia Postop Eval I Sum Postop Eval Completion status Anesthesia document: Postop Eval 1 completed: Yes Anesthesia Postop Eval I Summary Anesthesia Postop Eval I Summary: Anesthesia Postop Eval I: Assessment Summary Airway patent Yes 10/13/24 13:44 DIGITAL [email or web address] Spontaneous unlabored Yes 10/13/24 13:44 DIGITAL [email or web address] respirations Mental status Awake 10/13/24 13:44 DIGITAL [email or web address] nausea Yes 10/13/24 13:44 DIGITAL RECRUITER.[email or web address] Vomiting No 10/13/24 13:44 DIGITAL [email or web address] Anesthesia Postop Eval I: Fluid Summary Crystalloid volume administer 250 10/13/24 13:44 DIGITAL [email or web address] (ml) Colloids volume administered ( ml) Blood Product volume administered (ml) Total IV fluid infused 250 10/13/24 13:44 DIGITAL [email or web address] Anesthesia Postop Eval I: Summary Notes Anesthesia Complication No 10/13/24 13:44 DIGITAL [email or web address] Anesthesia Complication Comment: Post-operative progress note Anesthesia: Postop Eval II Evaluation Mental status: Awake Pain Level: 0 nausea: No Vomiting: No
--- NOTE | 2024-10-13 15:10 | PCM.POSTANE2 ---
Anesthesia Postop Eval I Sum Postop Eval Completion status Anesthesia document: Postop Eval 1 completed: Yes Anesthesia Postop Eval I Summary Anesthesia Postop Eval I Summary: Anesthesia Postop Eval I: Assessment Summary Airway patent Yes 10/13/24 13:44 VENDOR QUALITY [email or web address] Spontaneous unlabored Yes 10/13/24 13:44 VENDOR QUALITY SUPERVISOR.APAT respirations Mental status Awake 10/13/24 13:44 VENDOR QUALITY SUPERVISOR.APAT nausea Yes 10/13/24 13:44 VENDOR QUALITY SUPERVISOR.APAT Vomiting No 10/13/24 13:44 VENDOR QUALITY [email or web address] Anesthesia Postop Eval I: Fluid Summary Crystalloid volume administer 250 10/13/24 13:44 VENDOR QUALITY SUPERVISOR.APAT (ml) Colloids volume administered ( ml) Blood Product volume administered (ml) Total IV fluid infused 250 10/13/24 13:44 VENDOR QUALITY [email or web address] Anesthesia Postop Eval I: Summary Notes Anesthesia Complication No 10/13/24 13:44 VENDOR QUALITY [email or web address] Anesthesia Complication Comment: Post-operative progress note Anesthesia: Postop Eval II Evaluation Mental status: Awake Pain Level: 0 nausea: No Vomiting: No
== END 2024-10-13 15:59 | disposition home or self-care (01) ==
LOC: SDC 10:29 → AC 10:31
PROVIDERS: PCP Internal Medicine; Referring Provider Surgery; Visit Provider Surgery
PROC: (CPT 47610; principal; 2024-10-13 12:40)
DX: K80.10 Calculus of gallbladder with chronic cholecystitis without obstruction (principal); K82.8 Other specified diseases of gallbladder; M79.7 Fibromyalgia; E78.00 Pure hypercholesterolemia, unspecified; K21.9 Gastro-esophageal reflux disease without esophagitis; F17.200 Nicotine dependence, unspecified, uncomplicated; Z79.899 Other long term (current) drug therapy
CPT/HCPCS: 47562; 00790; 88304; 93005; J2405

== ENCOUNTER 2024-12-08 11:50 | Emergency (ER) | payer MEDICAID, SELFPAY ==
[2024-12-08 11:51] VITALS: BP 116/62; PULSE 70; RESP 18; TEMP 36.8; O2SAT 99
--- NOTE | 2024-12-08 12:33 | CT_ITS ---
PROCEDURE: ABDOMEN/PELVIS WITHOUT CONT 12/08/2024 REASON FOR EXAM: PAIN TECHNIQUE: Procedure Code: CTABDPEL Modality: CT Procedure: ABDOMEN/PELVIS WITHOUT CONT Noncontrast technique limits evaluation of the abdominal and pelvic viscera. Coronal and Sagittal reconstruction series were provided. One or more dose reduction techniques were used (e.g., Automated exposure control, adjustment of the mA and/or kV according to patient size, use of iterative reconstruction technique). RADIATION DOSE SUMMARY: CTDlvol: 7.83 mGy DLP: 409.04 mGycm COMPARISON: 09/24/2024 FINDINGS: Note that evaluation of the abdominopelvic viscera, vasculature, and remaining soft tissues is limited in the absence of IV contrast. Lung bases: Minimal atelectasis/scarring. Liver: Unremarkable. Spleen: Unremarkable. Gallbladder: Cholecystectomy Pancreas: Unremarkable. Adrenals: Unremarkable. Kidneys: Unremarkable. Bowel: Moderate colonic stool burden. Appendectomy. Lymph nodes: Unremarkable. Vasculature: Mild calcific atherosclerosis. Peritoneum: Unremarkable. Bladder: Unremarkable. Reproductive Organs: Hysterectomy. Body Wall: Operative changes. RIGHT sacral nerve stimulator. Bones: Partially imaged ascending spinal stimulator. 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 Mild multilevel spondylosis. CT/Abdomen/Pelvis without Cont IMPRESSION: 1. No acute noncontrast findings. 2. Additional description as above. Reading Location: [id number]
--- OUTSIDE RECORDS SUMMARY | 2024-12-08 12:34 | XMS RPT_ITS | CCD ---
Author Organization [facility] Care Team Providers Care Behavioral Health Aide Name Role Phone Osapay, Imola Unavailable Unavailable PROVIDER, UNKNOWN Unavailable Unavailable Adam, Mary Unavailable Unavailable Osapay, Imola Unavailable Unavailable PROVIDER, UNKNOWN Unavailable Unavailable Adam, Mary Unavailable Unavailable Afshan Laboy Attending Unavailable PROVIDER, UNKNOWN Referring Unavailable Adam, Mary Primary Care Unavailable BenoitAfshan guajardo Attending Unavailable PROVIDER, UNKNOWN Referring Unavailable Adam, Mary Primary Care Unavailable Benoit, Afshan Attending Unavailable PROVIDER, UNKNOWN Referring Unavailable Kontak, John Primary Care Unavailable Afshan Laboy Attending Unavailable PROVIDER, UNKNOWN Referring Unavailable Yvestak, John Primary Care Unavailable Afshan Laboy Attending Unavailable PROVIDER, UNKNOWN Referring Unavailable Kontak, John Primary Care Unavailable Benoit, Afshan Attending Unavailable PROVIDER, UNKNOWN Referring Unavailable Yvestak, John Primary Care Unavailable KATHERINE MUNOZ MD Primary Care Physician [phone] Steve Longoria Unavailable Bear Sabillon MD Unavailable Katherine Munoz MD Primary Care Provider 1(3 30) Dr. Katherine Munoz Primary Care Provider [phone] Dr. Katherine Munoz Attending Provider [phone] Dr. Katherine Munoz Referring Provider [phone] Carey Quigley Attending Provider Unavailable YURI Fuchs Attending Provider Unavailab dara Friend, Dr. Vega Attending Provider [phone] Dr. Gary Diaz Referring Provider [phone] Dr. Gary Diaz Other Provider [phone] Sridhar CORE MEASURES ABSTRACTOR, CORE MEASURES ABSTRACTOR-C Crys Carson Attending Provider 1(3 30) Dr. Katherine Munoz Primary Care Provider [phone] Tammy, Dr. Araujo Referring Provider [phone] Tammy, Dr. Araujo Attending Provider [phone] Tammy, Dr. Araujo Primary Care Provider 1(33 0) [place], Dr. Araujo Primary Care Provider 1(33 0) Tammy, Dr. Araujo Referring Provider [phone] Dr. Gary Diaz Attending Provider [phone]) Bear Sabillon MD Unavailable Steve Longoria Unavailable Bear Sabillon MD Unavailable Katherine Munoz MD Primary Care Provider 1(3 30) Tammy, Dr. Araujo Primary Care Provider 1(33 0) Tammy, Dr. Araujo Referring Provider [phone] Sridhar CORE MEASURES ABSTRACTOR, CORE MEASURES ABSTRACTOR-C Crys Carson Attending Provider 1(3 30) Dr. Katherine Munoz Attending Provider [phone])2 Dr. Gary Diaz Attending Provider 1(330) FriendDr. Vega Other Provider 1(330) Dr. Katherine Munoz Primary Care Provider 1(33 0) Tammy, Dr. Araujo Attending Provider [phone])2 Dr. Katherine Munoz Referring Provider [phone] Steve Longoria Unavailable Bear Sabillon MD Unavailable Steve Longoria Unavailable Bear Sabillon MD Unavailable Oleghe MD, Efewongbe B Primary Care Provider [phone] Dr. Katherine Munoz Primary Care Provider [phone] Dr. Katherine Munoz Attending Provider [phone])2 Tammy, Dr. Araujo Referring Provider [phone] Sridhar CORE MEASURES ABSTRACTOR, CORE MEASURES ABSTRACTOR-C Crys Carson Attending Provider [phone] YURI Fuchs Attending Provider Dr. Katherine Bass Primary Care Provider 1(33 0) Tammy, Dr. Araujo Referring Provider [phone])2 Dr. Katherine Munoz Primary Care Provider 1(33 0) Tammy, Dr. Araujo Referring Provider [phone])2 YURI Fuchs Attending Provider Unavailab Dr. Katherine Carter Attending Provider [phone])2 Dr. Fish Pitt Attending Provider Sridhar CORE MEASURES ABSTRACTOR, CORE MEASURES ABSTRACTOR-C Crys Carson Attending Provider [phone] Keisha CORE MEASURES ABSTRACTOR, CORE MEASURES ABSTRACTOR-C Александр Attending Provider 1(330) Dr. Katherine Munoz Primary Care Provider 1(33 0) Tammy, Dr. Araujo Referring Provider [phone])2 Dr. Gary Diaz Attending Provider [phone] Dr. Gary Diaz Other Provider [phone] Dr. Katherine Munoz Primary Care Provider 1(33 0) Dr. Katherine Munoz Referring Provider [phone])2 Dr. Katherine Munoz Attending Provider [phone])2 Dr. Katherine Munoz Primary Care Provider 1(33 0) YURI Bruno Attending Provider Dr. Katherine Munoz Attending Provider [phone])2 Dr. Katherine Munoz Referring Provider [phone])2 Ramandeep PLUNKETT, Bear Unavailable Unavailable Ben PLUNKETT, Vaishali S Unavailable Dr. Katherine Munoz Primary Care Provider 1(33 0) Tammy, Dr. Araujo Attending Provider [phone])2 Dr. Katherine Munoz Referring Provider [phone])2 Ole, Dr. Sahu Attending Provider [phone] Dr. Valerio Rubio Attending Provider [phone] Bob CORE MEASURES ABSTRACTOR, MAXIMO-Shalonda Martins Attending Provider Ole, Dr. Sahu Referring Provider [phone] Ole, Dr. Sahu Other Provider Tammy, Dr. Araujo Primary Care Provider 1(33 0) Ole, Dr. Sahu Attending Provider [phone] Dr. Valerio Rubio Attending Provider [phone]) [phone] Ole, Dr. Sahu Referring Provider [phone] Bob MARSH, MAXIMO-Shalonda Martins Attending Provider Ole, Dr. Sahu Other Provider Dr. Katherine Munoz Primary Care Provider 1(33 0) Dr. Katherine Munoz Attending Provider [phone])2 Dr. Katherine Munoz Referring Provider [phone])2 Ole, Dr. Sahu Attending Provider [phone] Dr. Valerio Rubio Attending Provider [phone]) [phone] Ole, Dr. Sahu Referring Provider [phone] Bob CORE MEASURES ABSTRACTOR, MAXIMO-Shalonda Martins Attending Provider Ole, Dr. Sahu Other Provider Dr. Katherine Munoz Primary Care Provider 1(33 0) Dr. Katherine Munoz Referring Provider 1(330)2 Dr. Katherine Munoz Attending Provider [phone] Candy Munoz MDbe Es Primary Care Provider [phone] Friend, Dr. Vega Attending Provider [phone] Katherine Munoz MD Primary Care Provider [phone] SANKET RINALDI MD Attending Unavailable COSMO MUNOZ MDONGBE B Primary Care Unavailab Spencer PLUNKETT, DR DANGELO Attending UnavailCOSMO Rodrigez MDONGBE B Primary Care Unavailab АЛЕКСАНДР Barajas DO Attending Unavailable COSMO MUNOZ MDONGBE B Primary Care Unavailab АЛЕКСАНДР Barajas DO Attending Unavailable COSMO MUNOZ MDONGBE B Primary Care Unavailab BALJINDER Delong MD Attending Unavailable COSMO MUNOZ MDONGBE B Primary Care Unavailab SHIELA Matamoros PA-C Attending Unavailable COSMO MUNOZ MDONGBE B Primary Care Unavailab GIUSEPPE Pena PA-C Attending UnavailCOSMO Rodrigez MDONGBE B Primary Care Unavailab BALJINDER Delong MD Attending Unavailable COSMO MUNOZ MDONGBE B Primary Care UnavailNOE Ambrosio MD Attending Unavailable COSMO MUNOZ MDONGBE B Primary Care Unavailab GALDINO Bustillo MD Attending Unavailable COSMO MUNOZ MDONGBE B Primary Care Unavailab TANNER Campoverde Attending Unavailable COSMO MUNOZ MDONGBE B Primary Care UnavailCOSMO Johnson MDONGBE Es Primary Care Unavailab SCHUYLER Palmer MD Attending Unavailable TANNER GRUBER Attending Unavailable COSMO MUNOZ MDONGBE B Primary Care Unavailab dara MUNOZ EFEWONGBE B Primary Care Unavailable TRISH ADAMES Attending Unavailable TAMMY EFEWONGBE B Primary Care Unavailable TAMMY EFEWONGBE B Primary Care Unavailable TRISH ADAMES Attending Unavailable TAMMY EFEWONGBE B Primary Care Unavailable TRISH ADAMES Attending Unavailable TAMMY EFEWONGBE B Primary Care Unavailable GIUSEPPE FLOYD Attending Unavailable TAMMY EFEWONGBE B Primary Care Unavailable GIUSEPPE FLOYD Attending Unavailable TAMMY EFEWONGBE B Primary Care Unavailable BARILE, GIUSEPPE K Attending Unavailable OLEJANEYE, EFEWONGBE B Primary Care Unavailable BARILE, GIUSEPPE K Referring Unavailable OLEGHE, EFEWONGBE B Primary Care Unavailable BARIDARA, GIUSEPPE K Attending Unavailable OLEJANEYE, EFEWONGBE B Primary Care Unavailable TRISH ADAMES Attending Unavailable Tammy PLUNKETT, Dr. Araujo Primary Care Provider Tammy PLUNKETT, Dr. Araujo Attending Provider [phone] Tammy PLUNKETT, Dr. Araujo Referring Provider [phone] Gio CORE MEASURES ABSTRACTOR-CAliza Attending Provider Gio CORE MEASURES ABSTRACTOR-CAliza Referring Provider Emily QUACH, Dr. Vega Attending Provider Emily QUACH, Dr. Vega Other Provider [phone] Tammy PLUNKETT, Dr. Araujo Primary Care Provider Tammy PLUNKETT, Dr. Araujo Referring Provider [phone] Dr. Bart Simmons MD Attending Provider Dr. Valerio Balderas MD Referring Provider Jon PLUNKETT, Trish Unavailable Dr. Gary Diaz DO Referring Provider Dr. Daniel Pena MD Emergency Provider Dr. Daniel Pena MD Attending Provider Dr. Damaso Mcgarry MD Attending Provider Dr. Delfino Garza DO Referring Provider Dr. Delfino Garza DO Emergency Provider Dr. Delfino Garza DO Attending Provider Dr. Damaso Mcgarry MD Referring Provider [phone] Zeferino PLUNKETT, Dr. Petit Other Provider Troy PLUNKETT, Dr. Arriaga Referring Provider Tammy PLUNKETT, Dr. Araujo Attending Provider Oleghe, Efewongbe Primary Care Unavailable Troy, [place] Referring Unavailable Troy, [place] Attending Unavailable Oleghe, Efewongbe Primary Care Unavailable Friend, Gary Consulting Unavailable Friend, Gary Attending Unavailable Oleghe, Efewongbe Primary Care Unavailable Oleghe, Efewongbe Referring Unavailable Oleghe, Efewongbe Primary Care Unavailable Oleghe, Efewongbe Referring Unavailable Oleghe, Efewongbe Attending Unavailable Oleghe, Efewongbe Primary Care Unavailable Daniel Pena Attending Unavailable Preston Thomas Attending Unavailable Oleghe, Efewongbe Primary Care Unavailable Friend, Gary Attending Unavailable Oleghe, Efewongbe Primary Care Unavailable Robert Bruno Attending Unavailable Oleghe, Efewongbe Primary Care Unavailable DeHorta, Valerio Referring Unavailable Oleghe, Efewongbe Primary Care Unavailable Troy, Bart Attending Unavailable Oleghe, Efewongbe Referring Unavailable Oleghe, Efewongbe Primary Care Unavailable Philip Garcia Attending Unavailable Friend, Gary Referring Unavailable Friend, Gary Attending Unavailable Oleghe, Efewongbe Primary Care Unavailable Oleghe, Efewongbe Primary Care Unavailable Aliza Nieves NP Referring Unavailable Aliza Nieves NP Attending Unavailable Oleghe, Efewongbe Primary Care Unavailable Philip Garcia Referring Unavailable Philip Garcia Attending Unavailable Oleghe, Efewongbe Primary Care Unavailable Luis Ty Attending Unavailable Le, Delfino Referring Unavailable Le Delfino Attending Unavailable Oleghe, Efewongbe Primary Care Unavailable Damaso Mcgarry Referring Unavailable Damaso Mcgarry Attending Unavailable Oleghe, Efewongbe Primary Care Unavailable Friend, Gary Attending Unavailable Oleghe, Efewongbe Primary Care Unavailable Oleghe, Efewongbe Referring Unavailable Oleghe, Efewongbe Referring Unavailable Oleghe, Efewongbe Primary Care Unavailable Philip Garcia Attending Unavailable Friend, Gary Attending Unavailable Oleghe, Efewongbe Primary Care Unavailable Oleghe, Efewongbe Referring Unavailable Oleghe, Efewongbe Referring Unavailable Oleghe, Efewongbe Primary Care Unavailable Oleghe, Efewongbe Attending Unavailable Tevin Law Attending Unavailable Oleghe, Efewongbe Primary Care Unavailable Oleghe, Efewongbe Referring Unavailable Oleghe, Efewongbe Primary Care Unavailable Oleghe, Efewongbe Attending Unavailable Oleghe, Efewongbe Referring Unavailable Gary Diaz Attending Unavailable Oleghe, Efewongbe Primary Care Unavailable Oleghe, Efewongbe Referring Unavailable Oleghe, Efewongbe Primary Care Unavailable Oleghe, Efewongbe Attending Unavailable Oleghe, Efewongbe Referring Unavailable Oleghe, Efewongbe Primary Care Unavailable Zeferino, Damaso Attending Unavailable Zeferino, Damaso Referring Unavailable Zeferino, Damaso Attending Unavailable Zeferino, Damaso Consulting Unavailable Oleghe, Efewongbe Primary Care Unavailable TAMMY PLUNKETT, EFEWONGBE B Primary Care UnavailTALI Marquez DO Attending Unavailable [facility] Attending Unavailable TAMMY PLUNKETT, EFEWONGBE B Primary Care Unavailab Monse PLUNKETT, EFEWONGBE B Primary Care Unavailab SANKET Moreira MD Attending Unavailable TAMMY PLUNKETT, EFEWONGBE B Primary Care Unavailab Spencer PLUNKETT, DR DANGELO Attending Unavailabl e Allergies Allergy Classification Reported Allergen(s) Allergy Type Date of Onset Reaction(s) Facility Adhesive Tape (1 source) Adhesive Tape Substance Allergy 01-19-20 16 Rash [facility] Aminoketones (1 source) buPROPion Drug Allergy 04-11-19 19 Other: See Comments [facility] Doxycycline (1 source) Doxycycline Drug Allergy 08-10-19 24 Rash, Anaphylaxis, Vomiting [facility] Iodine (and Iodine containting drugs) (2 sources) Iodine; Translations: [iodine] Drug Allergy 01-19-20 16 Other: See Comments [facility] Latex (2 sources) Latex Substance Allergy 11-21-19 17 Rash, Hives [facility] [place] (1 source) [place] Drug Allergy 05-22-19 24 Mental Status Change [facility] Macrolides (antibiotic) (2 sources) Erythromycin; Translations: [erythromycin] Drug Allergy 01-19-20 16 Rash [facility] Comment on above: MOUTH RASH Nitroimidazoles (antibiotic) (2 sources) metroNIDAZOLE; Translations: [metronidazole] Drug Allergy 01-19-20 16 Other: See Comments [facility] Comment on above: RASH NSAIDs (3 sources) Naproxen; Translations: [naproxen] Drug Allergy 01-19-20 16 Other: See Comments [facility] Comment on above: RASH Ondansetron (1 source) Ondansetron Drug Allergy 09-27-19 17 Other: See Comments [facility] Penicillins (antibiotic) (3 sources) Penicillins; Translations: [penicillin] Drug Allergy 02-02-20 16 Other: See Comments [facility] Comment on above: THROAT SWELLING MOUTH RASH pregabalin (1 source) pregabalin Drug Allergy 01-28-20 15 Swelling [facility] Procaine (1 source) Procaine Drug Allergy 03-02-20 17 Other: See Comments [facility] Work Phone: Quinolones (antibiotic) (1 source) Ciprofloxacin Drug Allergy 10-24-19 22 Rash [facility] Shellfish (1 source) Shellfish Food Allergy 10-13-19 15 Other: See Comments, Anaphylaxis [facility] Sucralfate (1 source) Sucralfate Drug Allergy 08-19-19 22 Hives [facility] Sulfamethoxazole / Trimethoprim (1 source) Sulfamethoxazole / Trimethoprim Drug Allergy 08-11-19 18 Other: See Comments [facility] (20 sources) Amoxicillin; Translations: [amoxicillin] Drug Allergy [facility] Work Phone: Comment on above: MOUTH RASH (20 sources) Erythromycin; Translations: [erythromycin] Drug Allergy 01-19-20 16 Rash [facility] Work Phone: Comment on above: MOUTH RASH (20 sources) Iodine; Translations: [iodine] Drug Allergy 01-19-20 16 Other: See Comments [facility] Work Phone: (20 sources) Latex; Translations: [LATEX] Allergy to substance 11-21-19 17 Rash, Hives [facility] Work Phone: (20 sources) metroNIDAZOLE; Translations: [metronidazole] Drug Allergy 07-14-19 22 Anaphylaxis [facility] Work Phone: Comment on above: RASH (20 sources) Naproxen; Translations: [naproxen] Drug Allergy 01-19-20 16 Other: See Comments [facility] Work Phone: Comment on above: RASH (20 sources) Penicillin; Translations: [penicillin] Drug Allergy [facility] Work Phone: Comment on above: THROAT SWELLING (20 sources) Seafood 6 Food allergy [facility] Work Phone: Comment on above: THROAT SWELLS (20 sources) Contrast dye 7; Translations: [iodinated radiocontrast agents] Drug allergy [facility] Work Phone: Comment on above: THROAT SWELLING (20 sources) Adhesive Tape; Translations: [ADHESIVE TAPE (ROSINS)] Allergy to substance 01-19-20 16 Rash [facility] (20 sources) buPROPion; Translations: [BUPROPION HCL] Drug Allergy 04-11-19 19 Other: See Comments [facility] (20 sources) metroNIDAZOLE; Translations: [METRONIDAZOLE HCL] Drug Allergy 01-19-20 16 Other: See Comments [facility] (20 sources) Naproxen; Translations: [NAPROXEN SODIUM] Drug Allergy 11-14-19 18 Other: See Comments [facility] (20 sources) Ondansetron; Translations: [ONDANSETRON] Drug Allergy 09-27-19 17 Other: See Comments [facility] Work Phone: (20 sources) Penicillins; Translations: [PENICILLINS] Drug Allergy 02-02-20 16 Other: See Comments [facility] (20 sources) pregabalin; Translations: [PREGABALIN] Drug Allergy 01-28-20 15 Swelling [facility] Work Phone: (20 sources) Procaine; Translations: [PROCAINE] Drug Allergy 03-02-20 17 Other: See Comments [facility] Work Phone: (20 sources) Shellfish; Translations: [SHELLFISH DERIVED] Drug Allergy 10-13-19 15 Other: See Comments, Anaphylaxis [facility] (20 sources) Sulfamethoxazole / Trimethoprim; Translations: [SULFAMETHOXAZOLE-T RIMETHOPRIM] Drug Allergy 08-11-19 18 Other: See Comments [facility] (20 sources) Venom-Honey Bee; Translations: [VENOM-HONEY BEE] Drug Allergy 08-11-19 Unknown [facility] (20 sources) Venom-Wasp; Translations: [VENOM-WASP] Drug Allergy 08-11-19 20 Unknown [facility] (20 sources) Adhesive agent; Translations: [adhesive] Propensity to adverse reactions 07-14-19 22 BLISTERS [facility] (20 sources) Ciprofloxacin Drug Allergy 07-14-19 22 Rash [facility] (20 sources) Sucralfate; Translations: [SUCRALFATE] Drug Allergy 08-19-19 22 Hives [facility] (20 sources) Penicillins Drug Allergy 02-02-20 16 Other: See Comments [facility] (20 sources) Ciprofloxacin; Translations: [CIPROFLOXACIN HCL] Drug Allergy 10-24-19 22 Rash [facility] (20 sources) Penicillins Allergy to substance 12-09-19 22 Anaphylaxis [facility] (20 sources) Sulfamethoxazole Drug Allergy 02-03-20 [facility] (2 sources) Sulfamethoxazole / Trimethoprim Drug Allergy 02-03-20 [address] [facility] (20 sources) Trimethoprim Drug Allergy 02-03-20 22 [facility] (20 sources) [place]; Translations: [LITHIUM] Drug Allergy 04-17-19 24 Mental Status Change [facility] (20 sources) Doxycycline; Translations: [DOXYCYCLINE] Drug Allergy 08-09-19 24 Rash, Anaphylaxis, Vomiting [facility] (2 sources) Penicillin; Translations: [penicillin] Drug Allergy [facility] Comment on above: THROAT SWELLING (3 sources) Seafood 5 Food allergy [facility] Comment on above: THROAT SWELLS (3 sources) Contrast dye 6; Translations: [iodinated radiocontrast agents] Drug allergy [facility] Comment on above: THROAT SWELLING (2 sources) Penicillin; Translations: [penicillin] Drug Allergy [facility] Comment on above: THROAT SWELLING (2 sources) Seafood 4 Food allergy [facility] Comment on above: THROAT SWELLS (2 sources) Contrast dye 5; Translations: [iodinated radiocontrast agents] Drug allergy [facility] Comment on above: THROAT SWELLING (5 sources) Penicillins Drug Allergy 02-02-20 Other: See Comments [facility] (8 sources) Coconut extract Drug Allergy 08-23-19 [facility] (8 sources) cultivated mushroom extract Drug Allergy 08-23-19 [facility] (1 source) Ciprofloxacin Drug Allergy 10-28-19 [facility] (1 source) Coconut extract Drug Allergy 10-28-19 [facility] (1 source) Doxycycline Drug Allergy 10-28-19 [facility] (1 source) Iodine Drug Allergy 10-28-19 [facility] (1 source) [place] Drug Allergy 10-28-19 [facility] (1 source) metroNIDAZOLE Drug Allergy 10-28-19 [facility] (1 source) Mushroom (edible) Drug allergy (disorder) 10-28-19 [facility] (1 source) Naproxen Drug Allergy 10-28-19 [facility] (1 source) Penicillins Drug allergy (disorder) 10-28-19 [facility] (1 source) Sulfamethoxazole Drug Allergy 10-28-19 [facility] (1 source) Trimethoprim Drug Allergy 10-28-19 [facility] (1 source) erythromycin base Drug allergy (disorder) 10-28-19 [facility] (1 source) venom-honey bee Drug allergy (disorder) 10-28-19 [facility] (1 source) venom-wasp Drug allergy (disorder) 10-28-19 [facility] Medications Current Medications Medication Drug Class(es) Dates Sig (Normalized) Sig (Original) acetaminophen 325 mg / HYDROcodone bitartrate 5 mg oral tablet (20 sources) Opioid Agonist Start: 11-26-2024 End: 12-03-2024 take 1 tablet by mouth every six hours as needed for pain [place] 325- 5 mg oral tablet Dose = 1 tab(s), Oral, q6h, PRN for pain, X 7 day(s), # 12 tab(s), 0 Refill(s), Epiploic appendagitis, 81.8 Start Date: 11/26/24 Stop Date: 12/03/24 Status: Ordered Medication Dispense Status: Completed Quantity: 12.0 Unit: tab(s) Total Allowed Fills: 1 Fills Dispensed: 0 Indications: Other specified diseases of intestine; Start: 08-16-2022 End: 08-23-2022 Start: 08-16-2022 End: 08-23-2022 Start: 08-16-2022 End: 08-23-2022 take 1 tablet by mouth twice daily Hydrocodone-Acetaminophen Discontinued 1 TABLET PO TWICE A DAY 14 August 16, 2022 August 22, 2022 11:08pm Start: 06-01-2022 End: 06-21-2022 Start: 06-01-2022 End: 06-21-2022 Start: 06-01-2022 End: 06-21-2022 take 1 tablet by mouth every four hours as needed Hydrocodone-Acetaminophen Discontinued 1 TABLET PO EVERY 4 HOURS NEEDED 01 08June 01, 2022 June 21, 2022 2:41pm Start: 05-05-2022 End: 05-19-2022 Start: 05-05-2022 End: 05-19-2022 Start: 05-05-2022 End: 05-19-2022 take 1 tablet by mouth twice daily Hydrocodone-Acetaminophen Discontinued 1 TABLET PO TWICE A DAY May 05, 2022 May 19, 2022 12:05am Start: 04-19-2022 End: 04-29-2022 Start: 04-19-2022 End: 04-29-2022 Start: 04-19-2022 End: 04-29-2022 take 1 tablet by mouth twice daily Hydrocodone-Acetaminophen Discontinued 1 TABLET PO TWICE A DAY 26 01April 19, 2022 April 29, 2022 12:10am Start: 04-01-2022 End: 01-30-2023 take 1 tablet by mouth twice daily as needed for pain HYDROcodone-acetaminophen (NORCO) 5-325 mg per tablet Indications: Postlaminectomy syndrome, lumbar region , Cervical spondylosis without myelopathy , Chronic bilateral low back pain with left-sided sciatica Take 1 tablet by mouth twice daily as needed for pain for up to 30 days. Okay to fill on 03/31/22 d/t holiday Do not start before April 01, 2022. 60 tablet 0 04/01/2022 01/30/2023 Discontinued Start: 04-01-2022 End: 02-24-2022 take 1 tablet by mouth twice daily as needed for pain HYDROcodone-acetaminophen (NORCO) 5-325 mg per tablet Indications: Chronic bilateral low back pain with left-sided sciatica , Postlaminectomy syndrome, lumbar region , Cervical spondylosis without myelopathy Take 1 tablet by mouth twice daily as needed for pain for up to 30 days. Do not start before April 01, 2022. 60 tablet 0 04/01/2022 02/24/2022 Discontinued Start: 03-02-2022 End: 05-01-2022 take 1 tablet by mouth twice daily as needed for pain HYDROcodone-acetaminophen (NORCO) 5-325 mg per tablet Indications: Postlaminectomy syndrome, lumbar region , Cervical spondylosis without myelopathy Take 1 tablet by mouth twice daily as needed for pain for up to 30 days. Okay to fill on 03/01/22 d/t holiday Do not start before March 02, 2022. 60 tablet 0 03/02/2022 Active Start: 03-02-2022 End: 02-24-2022 take 1 tablet by mouth twice daily as needed for pain HYDROcodone-acetaminophen (NORCO) 5-325 mg per tablet Indications: Postlaminectomy syndrome, lumbar region , Cervical spondylosis without myelopathy Take 1 tablet by mouth twice daily as needed for pain for up to 30 days. Do not start before March 02, 2022. 60 tablet 0 03/02/2022 02/24/2022 Discontinued Start: 12-31-2021 End: 05-01-2022 take 1 tablet by mouth twice daily as needed for pain HYDROcodone-acetaminophen (NORCO) 5-325 mg per tablet Indications: Postlaminectomy syndrome, lumbar region , Cervical spondylosis without myelopathy Take 1 tablet by mouth twice daily as needed for pain for up to 30 days. Okay to fill on 03/01/22 d/t holiday Do not start before March 02, 2022. 60 tablet 0 03/02/2022 04/01/2022 Active Start: 10-25-2021 End: 12-24-2021 take 1 tablet by mouth twice daily as needed for pain HYDROcodone-acetaminophen (NORCO) 5-325 mg per tablet Indications: Postlaminectomy syndrome, lumbar region , Cervical spondylosis without myelopathy , Chronic bilateral low back pain with left-sided sciatica Take 1 tablet by mouth twice daily as needed for pain for up to 30 days. Do not start before November 24, 2021. 60 tablet 0 11/24/2021 12/22/2021 Discontinued Start: 08-20-2021 End: 10-20-2021 take 1 tablet by mouth twice daily as needed for pain HYDROcodone-acetaminophen (NORCO) 5-325 mg per tablet Indications: Postlaminectomy syndrome, lumbar region , Cervical spondylosis without myelopathy Take 1 tablet by mouth twice daily as needed for pain for up to 30 days. Do not start before September 19, 2021. 60 tablet 0 09/19/2021 10/20/2021 Discontinued Start: 08-02-2021 End: 04-14-2022 Start: 08-02-2021 End: 04-14-2022 Start: 08-02-2021 End: 04-14-2022 take 1 tablet by mouth twice daily Hydrocodone-Acetaminophen Discontinued 1 TABLET PO TWICE A DAY August 01, 2021 11:00pm April 14, 2022 1:31pm Start: 07-21-2021 End: 08-18-2021 take 1 tablet by mouth twice daily as needed for pain HYDROcodone-acetaminophen (NORCO) 5-325 mg per tablet Indications: Chronic bilateral low back pain with left-sided sciatica , Cervical spondylosis without myelopathy Take 1 tablet by mouth twice daily as needed for pain for up to 30 days. Do not start before July 21, 2021. 60 tablet 0 07/21/2021 08/18/2021 Discontinued Start: 01-07-2021 End: 01-10-2021 take 1 tablet by mouth every six hours as needed for pain [place] 325- 5 mg oral tablet Dose = 1 tab(s), Oral, q6h, PRN as needed for pain, # 12 tab(s), 0 Refill(s), Pyelonephritis, 100 Start Date: 01/07/21 Stop Date: 01/10/21 Status: Ordered Start: 01-07-2021 take 1 tablet by [place] th every four hours as needed for pain acetaminophen-hydrocodone 325 mg-5 mg oral tablet Dose = 1 tab(s), Oral, q4h, PRN for pain, # 12 tab(s), 0 Refill(s), 100 Start Date: 01/07/21 Status: Ordered Start: 01-05-2021 End: 01-07-2021 take 1 tablet by mouth every four hours as needed Hydrocodone-Acetaminophen Discontinued 1 TABLET PO EVERY 4 HOURS NEEDED 10 January 05, 2021 January 07, 2021 7:47am Start: 12-30-2020 End: 01-07-2021 Start: 12-30-2020 End: 01-07-2021 Start: 12-30-2020 End: 01-07-2021 take 1 tablet by mouth every six hours Hydrocodone-Acetaminophen Discontinued 1 TABLET PO EVERY 6 HOURS 12 December 30, 2020 January 07, 2021 7:47am Start: 05-27-2020 End: 05-30-2020 Start: 05-27-2020 End: 05-30-2020 Start: 05-27-2020 End: 05-30-2020 take 1 tablet by mouth every six hours as needed Hydrocodone-Acetaminophen Discontinued 1 TABLET PO EVERY 6 HOURS NEEDED 10 May 27, 2020 May 30, 2020 12:03am Start: 09-23-2019 End: 09-30-2019 Start: 09-23-2019 End: 09-30-2019 Start: 09-23-2019 End: 09-30-2019 take 2 tablets by mouth every eight hours as needed Hydrocodone-Acetaminophen Discontinued 2 TABLET PO EVERY 8 HOURS NEEDED 10 September 23, 2019 September 29, 2019 11:02pm Comment on above: Take 1 tablet by [place] th twice daily as needed for pain for up to 30 days. Do not start before August 20, 2021. Take 1 tablet by [place] th twice daily as needed for pain for up to 30 days. Do not start before September 19, 2021. Take 1 tablet by [place] th twice daily as needed for pain for up to 30 days. Do not start before July 21, 2021. Take 1 tablet by [place] th twice daily as needed for pain for up to 30 days. Do not start before November 24, 2021. Take 1 tablet by [place] th twice daily as needed for pain for up to 30 days. Do not start before October 25, 2021. Take 1 tablet by [place] twice daily as needed for pain for up to 30 days. Do not start before January 30, 2022. Take 1 tablet by [place] th twice daily as needed for pain for up to 30 days. Do not start before December 31, 2021. Take 1 tablet by [place] th twice daily as needed for pain for up to 30 days. Do not start before April 01, 2022. Take 1 tablet by [place] th twice daily as needed for pain for up to 30 days. Do not start before March 02, 2022. Take 1 tablet by [place] th twice daily as needed for pain for up to 30 days. Okay to fill on 03/01/22 d/t holiday Do not start before March 02, 2022. Take 1 tablet by [place] twice daily as needed for pain for up to 30 days. Okay to fill on 03/31/22 d/t holiday Do not start before April 01, 2022. Baclofen (20 sources) gamma-Aminobutyric Acid-ergic Agonist Start: 08-09-2023 BACLOFEN 10 MG TABLET BACLOFEN 10 MG TABLET, 0 Refill(s), 82 Start Date: 08/09/23 Status: Ordered Start: 03-17-2021 End: 02-14-2022 Start: 01-13-2021 End: 01-18-2021 baclofen 10 mg oral tablet D ose : 10 mg = 1 tab(s), Oral, TID, # 15 tab(s), 0 Refill(s) Start Date: 01/13/21 Stop Date: 01/18/21 Status: Ordered Medication Dispense Status: Completed Quantity: 15.0 Unit: tab(s) Total Allowed Fills: 1 Fills Dispensed: 0 Comment on above: TAKE 1 PILL BY MOUTH UP TO 3 TIMES PER DAY NEEDED FOR PAINFUL MUSCLE SPASMS TAKE 1 TABLET BY [place] TH UP TO THREE TIMES A DAY NEEDED FOR PAINFUL MUSCLE SPASM benzonatate 100 mg oral capsule (20 sources) Non-narcotic Antitussive Start: 08-09-2023 benzonatate 100 mg oral capsule Dose : 100 mg = 1 cap(s), Oral, q8h, PRN as needed for cough, # 30 cap(s), 0 Refill(s) Start Date: 08/09/23 Status: Ordered Start: 03-14-2021 End: 06-21-2022 Start: 03-08-2021 End: 03-14-2021 bisacodyl 5 mg delayed release oral tablet (20 sources) Stimulant Laxative Start: 06-10-2020 End: 12-22-2021 bisacodyl EC (DULCOLAX) 5 mg EC tablet Bisacodyl Bisacodyl Active 5 MG PO AT BEDTIME June 10, 2020 8:55am 06-10-2020 [facility] ([id number]) 0 06/10/2020 12/22/2021 Discontinued Start: 06-09-2020 End: 10-20-2021 Bisacodyl (DULCOLAX) 5 mg ta b Indications: Change in bowel movement , History of rectal cancer Use as directed for Miralax / Gatorade Bowel Prep Kit 4 tablet 0 06/09/2020 10/20/2021 Discontinued Comment on above: Use as directed for Miralax / Gatorade Bowel Prep Kit Bisacodyl Bisacodyl Active 5 MG PO AT BEDTIME June 10, 2020 8:55am 06-10-2020 [facility] ([id number]) busPIRone hydrochloride 10 mg oral tablet (20 sources) Start: 08-31-2023 End: 10-27-2024 busPIRone 10 mg oral tablet Dose : 10 mg = 1 tab(s), Oral, BID, 0 Refill(s) Start Date: 10/04/23 Status: Ordered Medication Dispense Status: Completed Total Allowed Fills: 1 Fills Dispensed: 0 cefdinir 300 mg oral capsule (20 sources) Cephalosporin Antibacterial Start: 02-08-2021 End: 02-15-2021 cefdinir 300 mg oral capsule Dose : 300 mg = 1 cap(s), Oral, q12h, X 7 day(s), # 14 cap(s), 0 Refill(s), 02/15/21 9:28:00 EST, Abdominal pain, 100 Start Date: 02/08/21 Stop Date: 02/15/21 Status: Ordered Start: 01-07-2021 End: 01-14-2021 cefdinir 300 mg oral capsule Dose : 300 mg = 1 cap(s), Oral, q12h, # 14 cap(s), 0 Refill(s), Pyelonephritis, 100 Start Date: 01/07/21 Stop Date: 01/14/21 Status: Ordered cephalexin 500 mg oral capsule (3 sources) Cephalosporin Antibacterial Start: 02-08-2021 End: 02-09-2021 Keflex 500 mg oral capsule Dose : 500 mg = 1 cap(s), PO, TID, # 21 tab(s), 0 Refill(s), 02/09/21 9:24:00 EDT, Abdominal pain, 100 Start Date: 02/08/21 Stop Date: 02/09/21 Status: Ordered Start: 01-23-2021 End: 02-02-2021 Keflex 500 mg oral capsule D ose : 500 mg = 1 cap(s), Oral, q12h, X 10 day(s), # 20 cap(s), 0 Refill(s), 02/02/21 3:21:00 EDT, 100 Start Date: 01/23/21 Stop Date: 02/02/21 Status: Ordered cholecalciferol 1.25 mg oral capsule (20 sources) Vitamin D Start: 10-17-2024 take 1 capsule by mouth every week cholecalciferol, Vitamin D3, (VITAMIN D3) 1,250 mcg (50,000 unit) cap capsule Indications: Vitamin D deficiency TAKE 1 CAPSULE BY MOUTH EVERY WEEK 4 capsule 1 10/17/2024 Active Start: 08-23-2023 End: 10-17-2024 Start: 06-18-2023 End: 08-23-2023 cholecalciferol, Vitamin D3, (VITAMIN D3) 1,250 mcg (50,000 unit) cap capsule Indications: vitamin D deficiency Take vitamin D 50,000 units once every week x 12 weeks starting 06/18/23 then once monthly thereafter 12 capsule 0 06/18/2023 08/23/2023 Discontinued Comment on above: Take vitamin D 50,00 0 units once every week x 12 weeks starting 06/18/23 then once monthly thereafter diclofenac sodium 0.01 mg/mg topical gel (13 sources) Nonsteroidal Anti-inflammatory Drug Start: End: apply 4 g topically four times daily diclofenac (VOLTAREN ARTHRITIS PAIN) 1 % topical gel Apply 4 g to affected area four times daily. 480 g 1 07/14/2021 12/22/2021 Discontinued (Side Effects) Comment on above: Apply 4 g to affecte d area four times daily. dicyclomine hydrochloride 10 mg oral capsule (20 sources) Anticholinergic Start: 025 dicyclomine 10 mg oral capsule Dose : 10 mg = 1 cap(s), Oral, BID, 0 Refill(s) Start Date: 11/03/24 Status: Ordered Medication Dispense Status: Completed Total Allowed Fills: 1 Fills Dispensed: 0 Start: 09-23-2024 Start: 08-15-2022 End: 07-29-2023 Start: 08-15-2022 End: 03-08-2023 take 10 mg by mouth every six hours Dicyclomine Discontinued 10 MG PO EVERY 6 HOURS 112 December 20, 2022 8:26am March 08, 2023 10:52am Start: 07-13-2021 End: 07-21-2022 Start: 07-13-2021 End: 07-21-2022 take 1 capsule by mouth three times daily Dicyclomine Discontinued 0 .ROUTE .COMPLEX 84 June 13, 2022 12:43pm July 21, 2022 7:27am TAKE 1 CAPSULE BY MOUTH THREE TIMES A DAY Start: 06-14-2021 End: 08-04-2021 take 1 capsule by mouth four times daily Bentyl use dicyclomine Dose : 20 mg =, Oral, QID, # 10 cap(s), 0 Refill(s) Start Date: 07/28/21 Stop Date: 08/04/21 Status: Ordered Start: 02-21-2019 End: 05-09-2021 Start: 02-21-2019 End: 05-09-2021 take 10 mg by mouth twice daily Dicyclomine Discontinu ed 10 MG PO TWICE A DAY 60 January 21, 2021 9:18am May 09, 2021 9:04am Start: 08-15-2018 End: 12-17-2018 Start: 08-15-2018 End: 12-17-2018 take 1 capsule by mouth four times daily at bedtime dicyclomine (BENTYL) 10 mg capsule Indications: Irritable bowel syndrome with diarrhea TAKE 1 CAPSULE BY MOUTH FOUR TIMES A DAY BEFORE MEALS AND AT BEDTIME 112 capsule 09/16/2018 Active Comment on above: TAKE 1 CAPSULE BY [facility] FOUR TIMES A DAY BEFORE MEALS AND AT BEDTIME EPINEPHrine (20 sources) alpha-Adrenergic Agonist, beta-Adrenergic Agonist, Catecholamine Start: 08-11-2019 EPINEPHrine 0.3 mg injectable kit See Instructions, 0.3 mg Intramuscular, 0 Refill(s) Start Date: 08/11/19 Status: Ordered Medication Dispense Status: Completed Total Allowed Fills: 1 Fills Dispensed: 0 Start: 08-11-2019 EPINEPHrine 0. 3 mg injectable kit See Instructions, 0.3 mg Intramuscular, 0 Refill(s) Start Date: 08/11/19 Status: Ordered Repeat number: 1 Start: 08-11-2019 EPINEPHrine 0. 3 mg injectable kit See Instructions, 0.3 mg Intramuscular, 0 Refill(s) Start Date: 08/11/19 Status: Ordered Start: 08-11-2019 End: 02-22-2024 Start: 08-11-2019 End: 04-14-2022 Start: 08-11-2019 End: 04-14-2022 Epinephrine (Epipen 2-Raymond) 0 .3 mg/0.3 mL auto-injector Discontinued 0.3 MG IM every 5 to 15 minutes 2 February 24, 2021 8:55am January 02, 2022 3:58pm do not exceed 3 doses per episode famotidine 20 mg oral tablet (20 sources) Histamine-2 Receptor Antagonist Start: 03-30-2021 End: 01-30-2023 famotidine 20 mg oral tablet Dose : 20 mg = 1 tab(s), Oral, qDay, # 30 tab(s), 0 Refill(s) Start Date: 05/06/21 Status: Ordered Comment on above: TAKE 1 TABLET BY [place] DAILY folic acid 1 mg oral tablet (20 sources) Start: 05-22-2023 End: 09-18-2024 folic acid 1 mg oral tablet Dose : 1 mg = 1 tab(s), Oral, qDay, # 90 tab(s), 0 Refill(s) Start Date: 08/09/23 Status: Ordered Medication Dispense Status: Completed Quantity: 90.0 Unit: tab(s) Total Allowed Fills: 1 Fills Dispensed: 0 Comment on above: Take 1 tablet by [place] once daily. take 1 tablet by [place] daily 1.5 ml fremanezumab-vfrm 150 mg/ml auto-injector (20 sources) Start: 08-09-2023 Ajovy Autoinje ctor 225 mg/1.5 mL subcutaneous solution Dose : 225 mg =, Subcutaneous, 0 Refill(s) Start Date: 08/09/23 Status: Ordered Medication Dispense Status: Completed Total Allowed Fills: 1 Fills Dispensed: 0 Start: 04-17-2023 Ajovy Autoinje ctor 225 mg/1.5 mL subcutaneous solution 0 Refill(s) Start Date: 08/09/23 Status: Ordered Medication Dispense Status: Completed Total Allowed Fills: 1 Fills Dispensed: 0 Start: 04-17-2023 Start: 04-17-2023 Fremanezumab-V frm (Ajovy Autoinjector) 225 mg/1.5 mL auto-injector Active 225 MG SC EVERY MONTH April 17, 2023 12:00am inject 225 mg by sub cutaneous injection every month fremanezumab-vfrm (AJOVY SYRINGE) 225 mg/1.5 mL syringe Inject 225 mg subcutaneously once every month. Do not shake. Active Comment on above: Inject 225 mg subcut aneously once every month. Do not shake. 1 ml galcanezumab-gnlm 120 mg/ml auto-injector (3 sources) Start: 10-02-2024 Handicap Placard (20 sources) Start: 03-09-2023 Handicap Placard Active 0 .ROUTE .MEDSUPPLY March 09, 2023 12:00am As directed, length of time 3 years Start: 05-03-[address] Active 0 .Route .MEDSUPPLY May 03, 2020 11:25am As directed, length of time 3 years Start: 05-03-[address] Active 0 .Route .MEDSUPPLY May 03, 2020 12:00am As directed, length of time 3 years Start: 05-03-[address] Active 0 .Route .MEDSUPPLY May 03, 2020 1:00am As directed, length of time 3 years hydroxychloroquine sulfate 200 mg oral tablet (20 sources) Antimalarial, Antirheumatic Agent Start: 08-15-2022 End: 09-18-2024 hydroxychloroquine 200 mg oral tablet Dose : 400 mg = 2 tab(s), Oral, qDay, # 180 tab(s), 0 Refill(s) Start Date: 08/09/23 Status: Ordered Medication Dispense Status: Completed Quantity: 180.0 Unit: tab(s) Total Allowed Fills: 1 Fills Dispensed: 0 Start: 08-15-2022 End: 04-08-2024 take 1 tablet by mouth every twelve hours hydrOXYchloroQUINE (PLAQUENIL) 200 mg tablet Take 1 tablet by mouth every 12 hours. 56 tablet 2 01/03/2024 04/08/2024 Discontinued Start: 05-10-2022 End: 08-03-2022 Start: 11-03-2021 End: 02-13-2022 take 1 tablet by mouth twice daily hydrOXYchloroQUINE (PLAQUENIL) 200 mg tablet TAKE 1 TABLET BY MOUTH TWICE A DAY 56 tablet 2 02/13/2022 Active Comment on above: Take 1 tablet by [place] th twice daily. TAKE 1 TABLET BY [place] TH TWICE A DAY hyoscyamine sulfate 0.12 mg / methenamine 81.6 mg / methylene blue 10.8 mg / sodium phosphate, monobasic 40.8 mg oral tablet (20 sources) Oxidation-Reduction Agent Start: 06-15-2020 End: 03-23-2022 UROGESIC-BLUE 81.6-40.8-0.12 mg tab 0 06/15/2020 03/23/2022 Discontinued levETIRAcetam 1000 mg oral tablet (20 sources) Start: 08-21-2024 Start: 08-14-2018 End: 08-21-2024 levETIRAcetam 500 mg oral ta blet Dose : 1,000 mg = 2 tab(s), Oral, BID, 0 Refill(s) Start Date: 08/11/19 Status: Ordered Medication Dispense Status: Completed Total Allowed Fills: 1 Fills Dispensed: 0 Comment on above: TAKE 1 TABLET BY [place] TH TWICE A DAY linaclotide 0.145 mg oral capsule (10 sources) Guanylate Cyclase-C Agonist Start: 11-03-2024 Linzess 145 mcg oral capsule Dose : 145 mcg = 1 cap(s), Oral, qDay, 0 Refill(s) Start Date: 11/03/24 Status: Ordered Medication Dispense Status: Completed Total Allowed Fills: 1 Fills Dispensed: 0 Start: 08-05-2024 methenam/sod phos/mblue/hyos cy (UROGESIC-BLUE ORAL) (20 sources) End: 03-23-2022 methenam/sod phos/mblue/hyos cy (UROGESIC-BLUE ORAL) Take by mouth. 0 03/23/2022 Discontinued methenam/sod micky s/mblue/hyoscy (UROGESIC-BLUE ORAL) Take by mouth. 0 Active Comment on above: Take by mouth. methotrexate 2.5 mg oral tablet (20 sources) Folate Analog Metabolic Inhibitor Start: 08-09-2023 methotrexate 2.5 mg oral tablet Dose : 25 mg = 10 tab(s), Oral, qWeek, # 12 tab(s), 0 Refill(s) Start Date: 08/09/23 Status: Ordered Medication Dispense Status: Completed Quantity: 12.0 Unit: tab(s) Total Allowed Fills: 1 Fills Dispensed: 0 Start: 06-08-2023 End: 10-27-2024 Start: 06-08-2023 End: 11-08-2023 take 8 tablets by mouth every week methotrexate 2.5 mg tablet Indications: Systemic lupus erythematosus, unspecified SLE type, unspecified organ involvement status (HCC) , Rheumatoid arthritis involving multiple sites with positive rheumatoid factor (HCC) , Long-term use of Plaquenil , Inflammatory arthritis , Vitamin D deficiency , Oral lesion , Proteinuria, unspecified type , Anemia, unspecified type take 8 tablets by mouth once a week 32 tablet 2 09/20/2023 11/08/2023 Discontinued Start: 05-22-2023 End: 08-20-2023 take 6 tablets by mouth every week methotrexate 2.5 mg tablet Indications: Systemic lupus erythematosus, unspecified SLE type, unspecified organ involvement status (HCC) , Rheumatoid arthritis involving multiple sites with positive rheumatoid factor (HCC) , Proteinuria, unspecified type , Long-term use of Plaquenil , Inflammatory arthritis , Vitamin D deficiency TAKE 6 TABLETS BY MOUTH EVERY WEEK DIRECTED 24 tablet 2 07/26/2023 07/31/2023 Discontinued Comment on above: Take 6 tablets by [place] one time a week. as directed. TAKE [address] [facility] EVERY WEEK DIRECTED montelukast 10 mg oral tablet (20 sources) Leukotriene Receptor Antagonist Start: 08-15-2018 End: 01-30-2023 montelukast 10 mg oral tablet Dose : 10 mg = 1 tab(s), Oral, qDay, 0 Refill(s) Start Date: 08/11/19 Status: Ordered Medication Dispense Status: Completed Total Allowed Fills: 1 Fills Dispensed: 0 Comment on above: Take 10 mg by mouth daily at bedtime. nitrofurantoin macrocrystals-monohydrate 100 mg oral capsule (10 sources) Start: 01-08-2021 nitrofurantoin macrocrystals-monohydrat e 100 mg oral capsule 0 Refill(s), 100 Start Date: 01/08/21 Status: Ordered nortriptyline 10 mg oral capsule (20 sources) Tricyclic Antidepressant Start: 08-09-2023 nortriptyline 10 mg oral capsule Dose : 10 mg = 1 cap(s), Oral, TID, 0 Refill(s) Start Date: 08/09/23 Status: Ordered Medication Dispense Status: Completed Total Allowed Fills: 1 Fills Dispensed: 0 Start: 04-17-2023 Start: 04-17-2023 Start: 04-17-2023 take 10 mg by mouth at bedtime Nortriptyline Active 10 MG PO AT BEDTIME April 17, 2023 12:00am ondansetron 4 mg oral tablet (20 sources) Serotonin-3 Receptor Antagonist Start: 01-09-2024 End: 12-03-2024 Zofran 4 mg oral tablet Dose : 4 mg = 1 tab(s), Oral, q8h, PRN Nausea/Vomiting, # 15 tab(s), 0 Refill(s), 12/03/24 2:29:00 PM EDT, Pharmacy: [facility]/pharmacy #[id number], 170.2, cm, 11/26/24 12:15:00 EDT, Height, kg, 11/26/24 12:15:00 EDT, Dosing Weight Start Date: 11/26/24 Stop Date: 12/03/24 Status: Ordered Medication Dispense Status: Completed Quantity: 15.0 Unit: tab(s) Total Allowed Fills: 1 Fills Dispensed: 0 Start: 07-21-2022 End: 07-26-2022 Zofran 4 mg oral tablet Dose : 4 mg = 1 tab(s), Oral, q6h, PRN PRN Nausea/Vomiting, X 5 day(s), # 20 tab(s), 0 Refill(s), 07/26/22 15:13:00 EDT, Viral syndrome Start Date: 07/21/22 Stop Date: 07/26/22 Status: Ordered Start: 09-28-2021 End: 10-03-2021 Zofran 4 mg oral tablet Dose : 4 mg = 1 tab(s), Oral, q8h, X 5 day(s), # 15 tab(s), 0 Refill(s), 10/03/21 18:08:00 EDT, Pancreatitis Start Date: 09/28/21 Stop Date: 10/03/21 Status: Ordered Start: 07-31-2021 End: 10-03-2024 Start: 07-31-2021 End: 01-17-2023 take 8 mg by mouth every eight hours as needed Ondansetron Discontinued 8 MG PO EVERY 8 HOURS NEEDED 90 July 04, 2022 10:59am August 15, 2022 12:23pm Start: 06-14-2021 End: 06-15-2021 Zofran 4 mg oral tablet Dose : 4 mg = 1 tab(s), PO, q8h, # 12 tab(s), 0 Refill(s), 06/15/21 14:55:00 EST, Abdominal pain Start Date: 06/14/21 Stop Date: 06/15/21 Status: Ordered Start: 03-14-2021 End: 08-11-2021 Start: 03-08-2021 End: 03-14-2021 Start: 01-23-2021 End: 01-26-2021 Zofran 4 mg oral tablet Dose : 4 mg = 1 tab(s), Oral, q6h, PRN As needed for nausea and vomiting, X 3 day(s), # 12 tab(s), 0 Refill(s), 01/26/21 3:22:00 EDT Start Date: 01/23/21 Stop Date: 01/26/21 Status: Ordered Start: 01-23-2019 End: 04-17-2023 Comment on above: 4 mg. Take 4 mg by mouth e very 6 hours as needed. ondansetron 4 mg oral tablet, disintegrating (6 sources) Start: 01-09-20 ondansetron 4 mg oral tablet, disintegrating Dose : 4 mg = 1 tab(s), Oral, q4h, PRN Nausea/Vomiting, # 10 tab(s), 0 Refill(s) Start Date: 01/08/21 Status: Ordered pantoprazole 40 mg delayed release oral tablet (20 sources) Proton Pump Inhibitor Start: 11-25-19 End: 07-10-19 pantoprazole 40 mg oral enteric coated tablet Dose : 40 mg = 1 tab(s), Oral, qDay, # 90 tab(s), 0 Refill(s) Start Date: 01/07/21 Status: Ordered Medication Dispense Status: Completed Quantity: 90.0 Unit: tab(s) Total Allowed Fills: 1 Fills Dispensed: 0 Comment on above: TAKE 1 TABLET BY [place] DAILY 30 MINUTES BEFORE A MEAL potassium bicarbonate 20 meq effervescent oral tablet (1 source) Start: 01-09-20 End: 01-10-20 potassium bicarbonate 20 mEq oral tablet, effervescent Dose : 20 mEq = 1 tab(s), Oral, BID, dissolve in water or juice, X 1 day(s), # 2 tab(s), 0 Refill(s), 01/10/24 6:19:00 PM EDT Start Date: 01/09/24 Stop Date: 01/10/24 Status: Ordered prazosin 2 mg oral capsule (20 sources) alpha-Adrenergic Jewel Start: 04-17-19 take 4 mg by mouth at bedtime Prazosin Active 4 MG PO AT BEDTIME April 17, 2023 8:48am Start: 04-14-2022 End: 03-09-2023 take 4 mg by mouth at bedtime Prazosin Discontinued 4 MG PO AT BEDTIME April 14, 2022 1:32pm March 09, 2023 10:36am Start: 04-14-2022 take 2 mg by mouth at bedtime Prazosin Active 2 MG PO AT BEDTIME April 14, 2022 1:32pm Start: 06-15-2020 End: 04-17-2023 prazosin 2 mg oral capsule D ose : 4 mg = 2 cap(s), Oral, qHS, 0 Refill(s) Start Date: 05/06/21 Status: Ordered Medication Dispense Status: Completed Total Allowed Fills: 1 Fills Dispensed: 0 Start: 09-17-2019 End: 03-09-2023 Start: 08-11-2019 End: 04-14-2022 prazosin (MINIPRESS) 5 mg ca p Comment on above: Take 4 mg by mouth d aily at bedtime. predniSONE 10 mg oral tablet (20 sources) Start: 01-03-2024 End: 01-03-2024 predniSONE (DELTASONE) 10 mg tablet Prednisone 30 mg (3 tabs) for 1 wk, 25 mg (2.5 tabs) for 1 wk, 20 mg (2 tabs) for 1 wk, 15 mg (1.5 tabs) for 1 wk, 10 mg (1tab) for 1 wk, 5 mg (half tab) daily till you finish the bottle 75 tablet 01/03/2024 Active Start: 06-26-2023 End: 07-31-2023 predniSONE (DELTASONE) 5 mg tablet Indications: Rheumatoid arthritis involving multiple sites with positive rheumatoid factor (HCC) , Systemic lupus erythematosus, unspecified SLE type, unspecified organ involvement status (HCC) , Inflammatory arthritis Prednisone 20 mg x 3 days, 15 mg x 3 days, 10 mg x 3 days, 5 mg x 3 days 30 tablet 0 06/26/2023 07/31/2023 Discontinued Start: 01-30-2023 End: 05-22-2023 predniSONE (DELTASONE) 5 mg tablet Indications: Systemic lupus erythematosus, unspecified SLE type, unspecified organ involvement status (HCC) , Rheumatoid arthritis involving multiple sites with positive rheumatoid factor (HCC) Prednisone 15 mg x 3 days, 10 mg x 3 days, 5 mg x 3 days 18 tablet 0 01/30/2023 05/22/2023 Discontinued Start: 07-18-2022 End: 08-15-2022 Start: 10-26-2021 End: 01-30-2023 predniSONE (DELTASONE) 5 mg tablet Take 3 tablets for 1 week, 2 tabs for 1 week, 1 tab for 1 week, then stop 42 tablet 0 12/23/2021 01/30/2023 Discontinued Comment on above: Take 3 tablets for 1 week, 2 tabs for 1 week, 1 tab for 1 week, then stop Prednisone 15 mg x 3 days, 10 mg x 3 days, 5 mg x 3 days Prednisone 20 mg x 3 days, 15 mg x 3 days, 10 mg x 3 days, 5 mg x 3 days prochlorperazine 10 mg oral tablet (20 sources) Phenothiazine Start: take 1 dose by mouth every eight hours Compazine use prochlorperazine Dose : 10 mg =, Oral, q8h, 0 Refill(s) Start Date: 11/03/24 Status: Ordered Medication Dispense Status: Completed Total Allowed Fills: 1 Fills Dispensed: 0 Start: 08-15-2024 End: 09-23-2024 Start: 08-13-2024 End: 08-27-2024 QUEtiapine 300 mg oral tablet (20 sources) Atypical Antipsychotic Start: 08-09-2023 take 1 tablet by mouth once daily QUEtiapine 300 mg oral tablet Dose : 300 mg = 1 tab(s), Oral, qHS, 700mg daily, # 90 tab(s), 0 Refill(s) Start Date: 08/09/23 Status: Ordered Medication Dispense Status: Completed Quantity: 90.0 Unit: tab(s) Total Allowed Fills: 1 Fills Dispensed: 0 Start: 06-08-2023 End: 10-27-2024 Start: 06-08-2023 Start: 01-02-2022 End: 10-27-2024 Start: 01-02-2022 End: 02-22-2022 take 1 tablet by mouth once daily Quetiapine (Seroquel) 300 mg tablet Discontinued 300 MG PO DAILY January 01, 2022 11:00pm February 22, 2022 8:45am Start: 01-02-2022 End: 02-22-2022 Start: 08-30-2021 take 1 tablet by [place] at bedtime Quetiapine (Seroquel) 100 mg tablet Active 100 MG PO AT BEDTIME August 30, 2021 8:08am Start: 08-30-2021 End: 01-02-2022 Start: 08-30-2021 End: 01-02-2022 Start: 08-30-2021 End: 01-02-2022 take 2 tablets by mouth at bedtime Quetiapine (Seroquel) 100 mg tablet Discontinued 200 MG PO AT BEDTIME August 29, 2021 11:00pm January 02, 2022 1:59pm take 700 mg by mouth once daily at bedtime, then take 700 mg by mouth once daily quetiapine fumarate (QUETIAPINE ORAL) Take 700 mg by mouth daily at bedtime. 700mg daily Active QUEtiapine (SERO QUEL) 200 mg tablet Take 700 mg by mouth daily at bedtime. 700mg daily Active QUEtiapine (SERO QUEL) 200 mg tablet Take 200 mg by mouth daily at bedtime. Taking with a 300mg to = 500mg daily 0 Active Comment on above: Take 200 mg by mouth daily at bedtime. Take 200 mg by mouth daily at bedtime. Taking with a 300mg to = 500mg daily Take 700 mg by mouth daily at bedtime. 700mg daily rimegepant 75 mg disintegrating oral tablet (1 source) Start: 11-27-2022 End: 11-28-2022 [facility] ODT 75 mg oral tablet, disintegrating Dose : 75 mg = 1 tab(s), Oral, Every other day, allow tablet to dissolve on tongue, # 6 tab(s), 0 Refill(s), 11/28/22 4:01:00 PM EDT Start Date: 11/27/22 Stop Date: 11/28/22 Status: Ordered simvastatin 20 mg oral tablet (20 sources) HMG-CoA Reductase Inhibitor Start: 07-23-2018 End: 10-15-2024 simvastatin 20 mg oral tablet Dose : 20 mg = 1 tab(s), Oral, qHS, 0 Refill(s) Start Date: 08/11/19 Status: Ordered Medication Dispense Status: Completed Total Allowed Fills: 1 Fills Dispensed: 0 Comment on above: Take 1 tablet by [place] daily at bedtime. topiramate 200 mg oral tablet (20 sources) Start: 08-15-2018 topiramate 200 mg oral tablet Dose : 200 mg = 1 tab(s), Oral, qDay, 0 Refill(s) Start Date: 08/11/19 Status: Ordered Medication Dispense Status: Completed Total Allowed Fills: 1 Fills Dispensed: 0 take 1 tablet by [facility] once daily at bedtime topiramate (TOPAMAX) 200 mg tablet Take 200 mg by mouth daily at bedtime. Active Comment on above: Take 200 mg by mouth twice daily. Take 200 mg by mouth daily at bedtime. ubrogepant 100 mg oral tablet (20 sources) Start: 08-09-2023 Ubrelvy 100 mg oral tablet Dose : 100 mg = 1 tab(s), Oral, Once, PRN as needed for migraine headache, may repeat dose in 2 hours if needed, # 16 tab(s), 0 Refill(s) Start Date: 08/09/23 Status: Ordered Medication Dispense Status: Completed Quantity: 16.0 Unit: tab(s) Total Allowed Fills: 1 Fills Dispensed: 0 Start: 06-08-2023 End: 04-04-2024 Start: 06-08-2023 Vitamin D3 1250 mcg (50,000 intl units) oral capsule (7 sources) Start: 08-09-2023 Vitamin D3 125 0 mcg (50,000 intl units) oral capsule Dose : 1,250 mcg = 1 cap(s), Oral, qWeek, # 12 cap(s), 0 Refill(s) Start Date: 08/09/23 Status: Ordered Medication Dispense Status: Completed Quantity: 12.0 Unit: cap(s) Total Allowed Fills: 1 Fills Dispensed: 0 Start: 08-09-2023 Vitamin D3 125 0 mcg (50,000 intl units) oral capsule Dose : 1,250 mcg = 1 cap(s), Oral, qWeek, # 12 cap(s), 0 Refill(s) Start Date: 08/09/23 Status: Ordered Quantity: 12.0 Unit: cap(s) Repeat number: 1 Start: 08-09-2023 Vitamin D3 125 0 mcg (50,000 intl units) oral capsule Dose : 1,250 mcg = 1 cap(s), Oral, qWeek, # 12 cap(s), 0 Refill(s) Start Date: 08/09/23 Status: Ordered Walker (Ultra-Light Rollator ) misc (9 sources) Start: 08-10-2022 Walker (Ultra- Light Rollator) misc Active 0 .Route 1 May 3rd, 2023 11:00pm As directed Start: 09-26-2021 Walker (Ultra- Light Rollator) misc Active 0 .Route September 25, 2021 11:00pm As directed Start: 09-26-2021 Walker (Ultra- Light Rollator) misc Active 0 .Route September 26, 2021 12:00am As directed wheelchair (1 source) Start: 03-09-2023 wheelchair Act julita 0 .Route .MEDSUPPLY March 09, 2023 12:00am As directed (20 sources) Start: 04-28-2024 Start: 03-12-2024 End: 03-21-2024 Start: 02-21-2024 Start: 08-31-2023 End: 11-19-2023 Start: 03-09-2023 Start: 01-09-2023 End: 04-17-2023 Start: 01-09-2023 Start: 12-15-2022 End: 01-17-2023 Start: 08-10-2022 Start: 09-26-2021 Start: 12-30-2020 End: 08-02-2021 Start: 05-03-2020 Start: 06-10-2019 End: 10-28-2019 Start: 06-09-2019 End: 06-10-2019 Completed/Discontinued Medications Medication Drug Class(es) Dates Sig (Normalized) Sig (Original) 0.9% NaCl 10 mL flush (1 source) Start: 03-23-2022 End: 03-23-2022 0.9% NaCl 10 mL flush acetaminophen 325 mg / oxyCODONE hydrochloride 5 mg oral tablet (20 sources) Opioid Agonist Start: 09-24-2024 End: 10-27-2024 Start: 09-15-2021 End: 02-22-2022 Start: 09-15-2021 End: 02-22-2022 Start: 09-15-2021 End: 02-22-2022 take 2 tablets by mouth every eight hours as needed Oxycodone-Acetaminophen Discontinued 2 TABLET PO EVERY 8 HOURS NEEDED 26 10December 08, 2021 February 22, 2022 8:44am Start: 12-26-2020 acetaminophen- oxyCODONE 325 mg-5 mg oral tablet 0 Refill(s), 100 Start Date: 12/26/20 Status: Ordered Start: 12-16-2019 End: 12-19-2019 Start: 12-16-2019 End: 12-19-2019 Start: 12-16-2019 End: 12-19-2019 take 1 tablet by mouth every six hours Oxycodone-Acetaminophen Discontinued 1 TABLET PO EVERY 6 HOURS 21 06December 16, 2019 December 18, 2019 11:02pm Start: 06-27-2019 End: 07-04-2019 Start: 06-27-2019 End: 07-04-2019 Start: 06-27-2019 End: 07-04-2019 take 2 tablets by mouth every eight hours as needed Oxycodone-Acetaminophen Discontinued 2 TABLET PO EVERY 8 HOURS NEEDED 10 June 27, 2019 July 03, 2019 11:08pm Start: 06-17-2019 End: 06-20-2019 Start: 06-17-2019 End: 06-20-2019 Start: 06-17-2019 End: 06-20-2019 take 2 tablets by mouth every eight hours as needed Oxycodone-Acetaminophen Discontinued 2 TABLET PO EVERY 8 HOURS NEEDED 10 June 17, 2019 June 19, 2019 11:09pm [id number] 200 actuat albuter ol 0.09 mg/actuat metered dose inhaler (20 sources) beta2-Adrenergic Agonist Start: 04-14-2022 End: 04-17-2023 Start: 04-14-2022 End: 04-17-2023 Start: 04-14-2022 End: 04-17-2023 take 1 puff(s) by inhalation every six hours Albuterol Sulfate Discontinued 1 - 2 PUFF INHALATION EVERY 6 HOURS 8.5 April 14, 2022 12:00am April 17, 2023 8:50am ARIPiprazole 10 mg oral tabl et (20 sources) Atypical Antipsychotic Start: 05-19-2020 End: 01-30-2023 Start: 10-28-2019 End: 02-22-2022 Start: 10-28-2019 End: 02-22-2022 take 10 mg by mouth once daily Aripiprazole (Abilify) 30 mg tablet Discontinued 10 MG PO DAILY January 07, 2021 7:44am February 22, 2022 8:42am Start: 10-28-2019 End: 02-22-2022 Start: 07-23-2019 End: 10-28-2019 Start: 03-18-2019 End: 07-23-2019 Start: 07-10-2018 End: 03-18-2019 carBAMazepine 200 mg oral tablet (20 sources) Mood Stabilizer Start: 12-08-2019 End: 03-22-2020 take 1 tablet by mouth once in the morning, then take 2 tablets by mouth once daily at bedtime Carbamazepine Discontinued 400 MG PO AT BEDTIME December 08, 2019 9:02am March 22, 2020 8:15am 1 tab Q Am, 2 tabs QHS Start: 06-10-2019 End: 12-08-2019 take 400 mg by mouth at bedtime Carbamazepine Disconti nued 400 MG PO AT BEDTIME June 10, 2019 12:00am December 08, 2019 9:03am Start: 11-13-2017 End: 04-17-2023 carBAMazepine 200 mg oral ta blet Dose : 400 mg = 2 tab(s), Oral, BID, 0 Refill(s) Start Date: 08/11/19 Status: Ordered Medication Dispense Status: Completed Total Allowed Fills: 1 Fills Dispensed: 0 Start: 11-13-2017 End: 01-11-2023 take 200 mg by mouth twice daily Carbamazepine Discontinued 200 MG PO TWICE A DAY March 22, 2020 8:15am January 11, 2023 12:37pm Comment on above: take 1 tablet by [facility] in am and 2 at bedtime. Rx'd by Aliza Nieves . For mood and seizures. celecoxib 200 mg oral capsul e (20 sources) Nonsteroidal Anti-inflammatory Drug Start: 11-02-2019 End: 06-08-2023 Comment on above: Take 1 capsule by [facility] once daily. TAKE [address] [facility] DAILY Take 200 mg by mouth once daily. clindamycin 300 mg oral caps ule (20 sources) Lincosamide Antibacterial Start: 12-26-2019 End: 12-31-2019 cyclobenzaprine hydrochlorid e 10 mg oral tablet (20 sources) Muscle Relaxant Start: 01-23-2019 End: 03-23-2021 docusate sodium 100 mg oral capsule (20 sources) Start: 04-17-2023 End: 03-12-2024 Start: 12-22-2021 End: 06-20-2022 take 1 capsule by mouth twice daily docusate sodium (COLACE) 100 mg capsule Indications: Opioid-Induced Constipation Take 1 capsule by mouth twice daily. 90 capsule 5 12/22/2021 06/20/2022 Active Start: 02-21-2019 End: 10-28-2019 Start: 02-21-2019 End: 10-28-2019 take 1 capsule by mouth once daily Docusate Sodium (Colace) 100 mg capsule Discontinued 100 MG PO DAILY February 21, 2019 12:00am October 28, 2019 12:07pm take 100 mg by mouth twice daily DOCUSATE SODIUM ORAL Take 100 mg by mouth two times a day. Active Comment on above: Take 1 capsule by mo uth twice daily. Take 100 mg by mouth two times a day. doxycycline hyclate 100 mg o ral capsule (20 sources) Tetracycline-class Drug Start: 08-07-2023 End: 08-09-2023 Start: 08-07-2023 End: 08-09-2023 Start: 01-03-2020 End: 01-30-2020 DULoxetine 60 mg delayed release oral capsule (20 sources) Serotonin and Norepinephrine Reuptake Inhibitor Start: 08-15-2022 End: 03-09-2023 Start: 06-09-2019 End: 03-09-2023 DULoxetine 30 mg oral delaye d release capsule Dose : 60 mg = 2 cap(s), Oral, qDay, 0 Refill(s) Start Date: 08/11/19 Status: Ordered Medication Dispense Status: Completed Total Allowed Fills: 1 Fills Dispensed: 0 Start: 06-09-2019 take 90 mg by mouth at bedtime Duloxetine Active 90 MG PO AT BEDTIME June 09, 2019 12:00am Start: 07-10-2018 End: 06-09-2019 Start: 11-13-2017 End: 06-12-2023 take 2 capsules by mouth once daily DULoxetine (CYMBALTA) 60 mg capsule Indications: PTSD (post-traumatic stress disorder) , Bipolar I disorder, most recent episode depressed (HCC) Take 2 capsules by mouth once daily. Aliza Nieves. 0 11/13/2017 06/12/2023 Discontinued (Other) Comment on above: Take 2 capsules by m outh once daily. Aliza Nieves. Take 30 mg by mouth once daily. Take 30 mg by mouth every morning. emtricitabine 200 mg / tenofovir disoproxil fumarate 300 mg oral tablet (20 sources) Human Immunodeficiency Virus Nucleoside Analog Reverse Transcriptase Inhibitor Start: 05-18-2018 End: 06-15-2018 Start: 05-18-2018 End: 06-15-2018 Start: 05-18-2018 End: 06-15-2018 Emtricitabine-Tenofovir (Tdf ) Discontinued 1 EACH PO DAILY May 18, 2018 12:00am June 15, 2018 12:07am esomeprazole 40 mg delayed release oral capsule (20 sources) Proton Pump Inhibitor Start: 01-15-2021 End: 01-26-2021 Flucelvax Quad (flu vac qs (6 ms up) CD) 60 mcg (15 mcg x (11 sources) Start: 01-26-2021 End: 01-26-2021 inject 15 ug by intramuscular injection once Flucelvax Quad (flu vac qs (6 ms up) CD) 60 mcg (15 mcg x Discontinued 60 MCG IM ONCE 0.5 January 26, 2021 8:29am January 26, 2021 12:05pm fluticasone propionate 0.05 mg/actuat metered dose nasal spray (20 sources) Corticosteroid Start: 06-10-2020 End: 10-20-2021 Start: 06-10-2020 End: 09-02-2020 take 1 spray(s) nasal route once daily Fluticasone Propionate (Flonase Allergy Relief) 50 mcg/actuation spray,suspension Discontinued 2 SPRAY INTRANASAL DAILY 15.8 June 10, 2020 12:00am September 02, 2020 11:17am administer into each nostril Comment on above: fluticasone Fluticas one Propionate Active 2 SPRAY INTRANASAL DAILY 15.8 June 10, 2020 9:23am administer into each nostril 06-10-2020 [facility] ([id number]) fosfomycin 3000 mg powder fo r oral solution (20 sources) Start: 03-14-2021 End: 03-23-2021 Start: 03-14-2021 End: 03-23-2021 Start: 03-14-2021 End: 03-23-2021 take 3 g by mouth once Fosfomycin Tromethamine Disc ontinued 3 GM PO ONCE March 14, 2021 12:00am March 23, 2021 8:51am gabapentin 600 mg oral tablet (20 sources) Anti-epileptic Agent Start: 07-10-2018 End: 10-15-2024 gabapentin 600 mg oral tablet Dose : 600 mg = 1 tab(s), Oral, TID, 0 Refill(s), 78 Start Date: 08/11/19 Status: Ordered Medication Dispense Status: Completed Total Allowed Fills: 1 Fills Dispensed: 0 Comment on above: Take 1 tablet by [place] three times daily for 180 days. Take 1 tablet by [place] three times daily for 30 days. Take 1 tablet by [place] three times daily for 30 days. Do not start before March 09, 2022. Gatorade Sports Drink (10 sources) Start: 06-09-2020 End: 10-20-2021 Gatorade Sports Drink Indications: Change in bowel movement , History of rectal cancer Use as directed for Miralax / Gatorade Bowel Prep Kit 64 oz 0 06/09/2020 10/20/2021 Discontinued Start: 06-09-2020 Gatorade Sport s Drink Indications: Change in bowel movement , History of rectal cancer Use as directed for Miralax / Gatorade Bowel Prep Kit 64 oz 0 06/09/2020 Active Comment on above: Use as directed for Miralax / Gatorade Bowel Prep Kit Glycerin-Dimethicone- Meeta, Wh (19 sources) Start: 06-10-2019 End: 10-28-2019 Lptxwrxl-Yuhbobwiqog-Ymzjx , Wh Discontinued 1 APPLIC TOPICAL TWICE A DAY June 10, 2019 10:43am October 28, 2019 12:07pm Start: 06-10-2019 End: 10-28-2019 Jxihkpmi-Qdbezpnlrkg-Hxmhd, Wh Discontinued 1 APPLIC TOPICAL TWICE A DAY June 10, 2019 11:43am October 28, 2019 1:07pm Wzxwdqxk-Yrsrkstowmg-Gehbs, Wh (Cetaphil Moisturizing) cream (19 sources) Start: 06-09-2019 End: 06-10-2019 Abnstpjn-Lbagphpnuzs-Phwzb, Wh (Cetaphil Moisturizing) cream Discontinued 1 APPLIC TOPICAL TWICE A DAY 453 June 09, 2019 2:50pm June 10, 2019 11:43am Start: 06-09-2019 End: 06-10-2019 Hvlbippp-Nyvtmqvnrjs-Xkzed, Wh (Cetaphil Moisturizing) cream Discontinued 1 APPLIC TOPICAL TWICE A DAY 453 June 09, 2019 12:00am June 10, 2019 10:43am Start: 06-09-2019 End: 06-10-2019 Wfjgtjje-Dxyjqspjwyc-Bzgsu, Wh (Cetaphil Moisturizing) cream Discontinued 1 APPLIC TOPICAL TWICE A DAY 453 June 09, 2019 1:00am June 10, 2019 11:43am guaiFENesin 400 mg oral tabl et (20 sources) Start: 05-05-2022 End: 08-15-2022 hydrOXYzine pamoate 25 mg or al capsule (20 sources) Antihistamine Start: 08-11-2019 End: 08-31-2023 Start: 07-10-2018 End: 04-17-2023 Comment on above: Take 50 mg by mouth two times a day as needed. iohexol 300 mg IV injection (OMNIPAQUE 300) (1 source) Start: End: iohexol 300 mg IV injection (OMNIPAQUE 300) 2 ml ketorolac tromethamine 30 mg/ml prefilled syringe (20 sources) Nonsteroidal Anti-inflammatory Drug, Cyclooxygenase Inhibitor Start: End: inject 30 mg by intramuscular injection once ketorolac 60 mg/2 mL intramuscular syringe Discontinued 30 MG IM ONCE November 13, 2019 9:44am November 13, 2019 12:30pm Start: 10-28-2019 End: 10-28-2019 inject 30 mg by intramuscular injection once ketorolac 60 mg/2 mL intramuscular syringe Discontinued 30 MG IM ONCE October 28, 2019 12:56pm October 28, 2019 2:02pm Start: 01-10-2019 End: 01-10-2019 inject 30 mg by intramuscular injection once ketorolac 30 mg/mL injection syringe Discontinued 30 MG IM ONCE January 10, 2019 9:28am January 10, 2019 10:31am lactulose 667 mg/ml oral doug ution (17 sources) Osmotic Laxative Start: 03-21-2024 End: 10-27-2024 Start: 01-09-2023 End: 04-17-2023 take 20 g by mouth twice daily Lactulose Discontinued 20 GM PO TWICE A DAY 1799January 08, 2023 11:00pm April 17, 2023 8:51am lidocaine 0.05 mg/mg medicated patch (20 sources) Antiarrhythmic, Amide Local Anesthetic Start: 05-09-2022 End: 08-15-2022 Start: 05-09-2022 End: 08-15-2022 Start: 05-09-2022 End: 08-15-2022 apply 1 dose topically once daily Lidocaine (Lidoderm) 5 % adhesive patch,medicated Discontinued 1 PATCH TOPICAL DAILY May 09, 2022 12:00am August 15, 2022 12:23pm leave on most painful area for up to 12 hrs Start: 03-23-2022 End: 03-23-2022 lidocaine (PF) 20 mg/mL (2 % ) 200 mg injection (XYLOCAINE) Start: 03-23-2022 End: 03-23-2022 lidocaine 10 mg/mL (1 %) 100 mg injection (XYLOCAINE) [id number]-[id number]-QUSTNUH ORAL (16 sources) End: 01-30-2023 [id number]-[id number] ORAL Take by mouth. 0 01/30/2023 Discontinued LIPASE-PROTEASE- AMYLASE ORAL Take by mouth. 0 Active Comment on above: Take by mouth. loratadine 10 mg oral tablet (20 sources) Start: 02-21-2019 End: 11-13-2019 lubiprostone 0.008 mg oral c apsule (20 sources) Chloride Channel Activator Start: 08-10-2023 End: 11-19-2023 Start: 01-11-2023 End: 02-10-2023 Start: 01-09-2023 End: 01-09-2023 Start: 07-21-2022 End: 10-23-2022 magnesium oxide 400 mg oral tablet (20 sources) Start: 12-08-2019 End: 04-16-2020 Start: 12-08-2019 End: 04-16-2020 take 400 mg by mouth twice daily Magnesium Oxide Discontinued 400 MG PO TWICE A DAY December 31, 2019 10:25am April 16, 2020 2:52pm Methylprednisolone (20 sources) Corticosteroid Start: 05-05-2022 End: 06-21-2022 take 1 tablet by mouth once Methylprednisolone (Medrol (Raymond)) 4 mg tablets,dose pack Discontinued 0 PO per package directions May 05, 2022 12:00am June 21, 2022 2:41pm PO PER PKG DIR Start: 05-05-2022 End: 06-21-2022 Start: 03-23-2022 End: 03-23-2022 methylPREDNISolone acetate 4 0 mg injection (DEPO-Medrol) Start: 03-22-2020 End: 03-22-2020 Depo-Medrol (methylprednisol one acetate) 40 mg/mL suspension for injection Discontinued 40 MG INTRAARTIC ONCE March 22, 2020 9:05am March 22, 2020 9:40am Start: 07-23-2019 End: 09-08-2019 take 1 tablet by mouth once Methylprednisolone (Medrol (Raymond)) 4 mg tablets,dose pack Discontinued 0 PO per package directions July 22, 2019 11:00pm September 08, 2019 9:43am PO PER PKG DIR Start: 07-23-2019 End: 09-08-2019 metoclopramide 5 mg oral tab let (20 sources) Dopamine-2 Receptor Antagonist Start: 08-09-2023 End: 08-31-2023 Start: 07-21-2022 Start: 06-12-2022 End: 06-21-2022 Start: 07-18-2021 End: 08-11-2021 Start: 07-13-2021 End: 08-11-2021 24 hr nicotine 0.292 mg/hr transdermal system (20 sources) Cholinergic Nicotinic Agonist Start: 05-05-2022 End: 06-21-2022 Start: 05-05-2022 End: 06-21-2022 Start: 05-05-2022 End: 06-21-2022 apply 1 dose transdermal route every twenty-four hours Nicotine Discontinued 1 PATCH TD Q24H May 05, 2022 12:00am June 21, 2022 2:41pm nitrofurantoin, macrocrystal s 25 mg / nitrofurantoin, monohydrate 75 mg oral capsule (20 sources) Nitrofuran Antibacterial Start: 01-07-2021 End: 01-12-2021 omeprazole 40 mg delayed rel ease oral capsule (20 sources) Proton Pump Inhibitor Start: 09-08-2019 End: 01-26-2021 oxyCODONE hydrochloride 5 mg oral tablet (20 sources) Opioid Agonist Start: 10-13-2024 End: 10-27-2024 Start: 02-18-2020 End: 03-22-2020 Start: 02-10-2020 End: 02-16-2020 phenazopyridine hydrochloride 100 mg oral tablet (20 sources) Start: 01-08-2021 End: 03-11-2021 polyethylene glycol 3350 47748 mg powder for oral solution (20 sources) Osmotic Laxative Start: 06-10-2020 End: 10-20-2021 polyethylene glycol 3350 (MIRALAX, GLYCOLAX) 17 gram/dose powder POLYETHYLENE GLYCOL 3350 Polyethylene Glycol 3350 Active 17 G PO DAILY June 10, 2020 8:56am 06-10-2020 [facility] ([id number]) 0 06/10/2020 10/20/2021 Discontinued Start: 06-09-2020 End: 10-20-2021 polyethylene glycol 3350 (CA RALAX, GLYCOLAX) 17 gram/dose powder Indications: Change in bowel movement , History of rectal cancer Use as directed for Miralax / Gatorade Bowel Prep Kit 238 g 0 06/09/2020 10/20/2021 Discontinued Comment on above: Use as directed for Miralax / Gatorade Bowel Prep Kit POLYETHYLENE GLYCOL 3350 Polyethylene Glycol 3350 Active 17 G PO DAILY June 10, 2020 8:56am 06-10-2020 [facility] ([id number]) promethazine hydrochloride 25 mg oral tablet (20 sources) Phenothiazine Start: 12-16-19 End: 01-18-20 23 take 1 tablet by mouth twice daily as needed for nausea Promethazine Discontinued 0 .ROUTE .COMPLEX 60 December 15, 2022 11:36am January 17, 2023 3:48pm TAKE 1 TABLET BY MOUTH TWICE A DAY NEEDED FOR NAUSEA OR VOMITING Start: 07-10-2018 End: 07-09-2024 promethazine 25 mg oral tabl et Dose : 25 mg = 1 tab(s), Oral, TID, 0 Refill(s) Start Date: 08/11/19 Status: Ordered Medication Dispense Status: Completed Total Allowed Fills: 1 Fills Dispensed: 0 Start: 07-01-2018 End: 01-20-2019 take 1 tablet by mouth every six hours promethazine (PHENERGAN) 25 mg tablet Indications: Nausea in adult take 1 tablet by mouth every 6 hours if needed 20 tablet 2 07/01/2018 Active Comment on above: take 1 tablet by [place] every 6 hours if needed raltegravir 400 mg oral tablet (20 sources) Human Immunodeficiency Virus Integrase Strand Transfer Inhibitor Start: 05-18-2018 End: 06-15-2018 72 hr scopolamine 0.0139 mg/hr transdermal system (20 sources) Anticholinergic Start: 09-20-2023 scopolamine 1 mg/72 hr transdermal film, extended release Apply 1 patch(es), Transdermal, 0 Refill(s), 81.9 Start Date: 09/20/23 Status: Ordered Medication Dispense Status: Completed Total Allowed Fills: 1 Fills Dispensed: 0 Start: 08-09-2023 scopolamine 1 mg/72 hr transdermal film, extended release Apply 1 patch(es), Transdermal, q72h, apply to skin, # 10 patch(es), 0 Refill(s), 82 Start Date: 08/09/23 Status: Ordered Start: 02-06-2022 End: 08-13-2024 Comment on above: Apply 1 Patch as dir ected every 72 hours. sucralfate 100 mg/ml oral suspension (20 sources) Aluminum Complex Start: 06-09-2021 End: 08-11-2021 Start: 06-09-2021 End: 08-11-2021 Start: 06-09-2021 End: 08-11-2021 take 1 mL by mouth twice daily Sucralfate (Carafate) 1 00 mg/mL suspension Discontinued 10 ML PO TWICE A DAY June 09, 2021 12:00am August 11, 2021 11:47am sulfamethoxazole 800 mg / trimethoprim 160 mg oral tablet (20 sources) Dihydrofolate Reductase Inhibitor Antibacterial, Sulfonamide Antimicrobial Start: 12-08-2021 End: 01-02-2022 Start: 12-08-2021 End: 01-02-2022 Start: 12-08-2021 End: 01-02-2022 take 1 tablet by mouth twice daily Sulfamethoxazole-Trimethoprim Discontinued 1 TABLET PO TWICE A DAY 6 December 07, 2021 11:00pm January 02, 2022 1:59pm Start: 09-15-2021 take 1 tablet by [place] twice daily Sulfamethoxazole-Trimethoprim Active 1 TABLET PO TWICE A DAY 6 September 15, 2021 3:33pm Start: 03-09-2021 End: 03-14-2021 Start: 03-09-2021 End: 03-14-2021 Start: 03-09-2021 End: 03-14-2021 take 1 tablet by mouth twice daily Sulfamethoxazole-Trimethoprim (Bactrim Ds) 800-160 mg tablet Discontinued 1 TABLET PO TWICE A DAY March 09, 2021 12:00am March 14, 2021 8:41am Start: 09-23-2019 End: 09-26-2019 Start: 09-23-2019 End: 09-26-2019 Start: 09-23-2019 End: 09-26-2019 take 1 tablet by mouth twice daily Sulfamethoxazole-Trimethoprim Discontinued 1 TABLET PO TWICE A DAY 6 September 22, 2019 11:00pm September 25, 2019 11:02pm Start: 06-27-2019 End: 06-30-2019 Start: 06-27-2019 End: 06-30-2019 Start: 06-27-2019 End: 06-30-2019 take 1 tablet by mouth twice daily Sulfamethoxazole-Trimethoprim Discontinued 1 TABLET PO TWICE A DAY 6 June 26, 2019 11:00pm June 29, 2019 11:07pm Start: 06-17-2019 End: 06-20-2019 Start: 06-17-2019 End: 06-20-2019 Start: 06-17-2019 End: 06-20-2019 take 1 tablet by mouth twice daily Sulfamethoxazole-Trimethoprim Discontinued 1 TABLET PO TWICE A DAY 6 June 16, 2019 11:00pm June 19, 2019 11:09pm SUMAtriptan 100 mg oral tabl et (20 sources) Serotonin-1b and Serotonin-1d Receptor Agonist Start: 08-15-2022 End: 08-31-2023 Start: 08-15-2022 End: 04-19-2023 Start: 08-15-2022 End: 04-19-2023 Sumatriptan Succinate Discon tinued 100 MG PO .COMPLEX December 28, 2022 10:46am April 19, 2023 8:41am 100 mg orally; take one at the onset of a migraine, not to exceed more than 1 daily Start: 03-23-2021 End: 03-23-2021 Start: 12-08-2019 End: 01-30-2023 Comment on above: Take 50 mg by mouth as needed. traMADol hydrochloride 50 mg oral tablet (20 sources) Opioid Agonist Start: 08-07-2023 End: 08-21-2023 Start: 11-02-2019 End: 08-02-2021 Comment on above: Take 1 tablet by [place] three times daily as needed for pain for up to 30 days. Do not start before June 18, 2021. traZODone hydrochloride 100 mg oral tablet (20 sources) Serotonin Reuptake Inhibitor Start: 0 End: 3 take 300 mg by mouth at bedtime Trazodone Discontinued 300 MG PO AT BEDTIME October 28, 2019 12:08pm January 11, 2023 12:36pm Start: 08-11-2019 traZODone 100 mg oral tablet Dose : 300 mg = 3 tab(s), Oral, qHS, 0 Refill(s) Start Date: 08/11/19 Status: Ordered Start: 07-10-2018 End: 01-30-2023 Start: 07-10-2018 End: 10-28-2019 take 150 mg by mouth at bedtime Trazodone Discontinued 150 MG PO AT BEDTIME July 09, 2018 11:00pm October 28, 2019 12:08pm Comment on above: Take 200 mg by mouth daily at bedtime. Problems Active Problems Problem Classification Problem Date Documented Da te Episodic/Chronic Abdominal hernia (20 sources) Incisional hernia; Translations: [Incisional hernia without obstruction or gangrene] 05-27-2020 Episodic Acute cerebrovascular disease (20 sources) Cerebrovascular accident; Translations: [Cerebral infarction, unspecified] 11-26-2017 Chronic Allergic reactions (20 sources) Allergy to seafood; Translations: [Other nonmedicinal substance allergy status] Onset: 9 01-09-2019 Episodic Anxiety disorders (20 sources) Anxiety disorder, unspecified; Translations: [Post-traumatic stress disorder, unspecified] Onset: 7 10-23-2016 Chronic Biliary tract disease (20 sources) Biliary sludge; Translations: [Other specified diseases of gallbladder] 07-13-2021 Episodic Calculus of urinary tract (20 sources) Kidney stone; Translations: [Calculus of kidney] 01-09-2019 Episodic Cardiac dysrhythmias (20 sources) Bradycardia; Translations: [Bradycardia, unspecified] 03-09-2023 Episodic Chronic ulcer of skin (20 sources) Ulcer; Translations: [Ulcerative lesion] 01-09-2019 Chronic Complications of surgical procedures or medical care (20 sources) Postoperative wound infection; Translations: [Infection following a procedure, other surgical site, initial encounter] 12-09-2020 Episodic Conditions associated with dizziness or vertigo (20 sources) Dizziness; Translations: [Dizziness and giddiness] 12-30-2020 Episodic Deficiency and other anemia (7 sources) Anemia; Translations: [Anemia, unspecified] 07-31-2023 Episodic Delirium, dementia, and amnestic and other cognitive disorders (20 sources) Postconcussion syndrome; Translations: [Postconcussional syndrome] 01-24-2019 Chronic Diseases of mouth; excluding dental (8 sources) Oral lesion; Translations: [Unspecified lesions of oral mucosa] Onset: 4 07-31-2023 Episodic Disorders of lipid metabolism (20 sources) Hyperlipidemia; Translations: [Hyperlipidemia, unspecified] 03-09-2023 Chronic E Codes: Fall (20 sources) Fall; Translations: [Unspecified fall, initial encounter] 01-07-2022 Episodic E Codes: Natural/environment (20 sources) Insect bite - wound; Translations: [Bitten or stung by nonvenomous insect and other nonvenomous arthropods, initial encounter] 11-01-2020 Episodic Epilepsy; convulsions (20 sources) Unspecified convulsions; Translations: [Seizure] Onset: 8 08-15-2017 Episodic Esophageal disorders (20 sources) Gastro-esophageal reflux disease with esophagitis; Translations: [Garay's esophagus without dysplasia] Onset: 7 Chronic Esophageal disorders (20 sources) Lisa-Baker tear; Translations: [Gastro-esophageal laceration-hemorrhage syndrome] 07-26-2021 Episodic Essential hypertension (20 sources) Hypertensive disorder; Translations: [Essential (primary) hypertension] 11-26-2017 Chronic Fluid and electrolyte disorders (20 sources) Hypokalemia; Translations: [Hypokalemia] Onset: Episodic Gastritis and duodenitis (12 sources) Chronic duodenitis; Translations: [Duodenitis without bleeding] 09-24-2024 Episodic Gastrointestinal hemorrhage (20 sources) Gastrointestinal hemorrhage; Translations: [Gastrointestinal hemorrhage, unspecified] Episodic Genitourinary symptoms and ill-defined conditions (20 sources) Incontinence; Translations: [Mixed incontinence] Onset: 7 10-23-2016 Chronic Genitourinary symptoms and ill-defined conditions (20 sources) Dysuria; Translations: [Dysuria] Onset: 7 Episodic Headache; including migraine (20 sources) Migraine; Translations: [Migraine, unspecified, not intractable, without status migrainosus] Onset: 3 Chronic Headache; including migraine (20 sources) Headache; Translations: [Headache, unspecified] Onset: 8 Episodic Hemorrhoids (20 sources) Bleeding external hemorrhoids; Translations: [Residual hemorrhoidal skin tags] 06-11-2020 Episodic Immunizations and screening for infectious disease (20 sources) Antineutrophil cytoplasmic antibody positive; Translations: [Other specified abnormal immunological findings in serum] Onset: 2 Episodic Intracranial injury (20 sources) Concussion with no loss of consciousness; Translations: [Concussion without loss of consciousness, initial encounter] 11-05-2019 Episodic Malignant neoplasm without specification of site (20 sources) Malignant neoplastic disease; Translations: [Malignant (primary) neoplasm, unspecified] 05-09-2021 Chronic Menopausal disorders (20 sources) Atrophic vaginitis; Translations: [Postmenopausal atrophic vaginitis] Onset: 7 10-23-2016 Chronic Mood disorders (20 sources) Bipolar disorder, unspecified; Translations: [Other bipolar disorder] Onset: 7 10-23-2016 Chronic Nausea and vomiting (20 sources) Vomiting; Translations: [Vomiting, unspecified] Onset: 7 Episodic Nutritional deficiencies (20 sources) Vitamin D deficiency; Translations: [Vitamin D deficiency, unspecified] Onset: 4 05-22-2023 Chronic Osteoarthritis (20 sources) Unspecified osteoarthritis, unspecified site; Translations: [Osteoarthritis of joint of right shoulder region] Onset: 9 Chronic Other aftercare (20 sources) Wound ; Translations: [Encounter for other specified surgical aftercare] 01-02-2020 Episodic Other aftercare (3 sources) Long-term current use of opiate analgesic drug; Translations: [[facility] (current) use of opiate analgesic] Episodic Other aftercare (3 sources) Patient encounter status; Translations: [Other long lines operator (current) drug therapy] Episodic Other aftercare (13 sources) Drug therapy finding; Translations: [Other detention (current) drug therapy] 01-30-2023 Episodic Other and unspecified benign neoplasm (20 sources) Lipoma (clinical); Translations: [Benign lipomatous neoplasm, unspecified] 01-09-2019 Episodic Other and unspecified benign neoplasm (20 sources) Polyp of colon; Translations: [Polyp of colon] 07-13-2021 Episodic Other and unspecified benign neoplasm (11 sources) Polyp of colon; Translations: [Benign neoplasm of colon] Episodic Other circulatory disease (2 sources) Personal history of transient ischemic attack (TIA), and cerebral infarction without residual deficits; Translations: [Prsnl hx of TIA (TIA), and cereb infrc w/o resid deficits] Onset: 9 Episodic Other circulatory disease (20 sources) Elevated blood pressure; Translations: [Elevated blood-pressure reading, without diagnosis of hypertension] 03-23-2021 Episodic Other circulatory disease (3 sources) Elevated blood-pressure reading, without diagnosis of hypertension; Translations: [Elevated blood pressure reading without diagnosis of hypertension] Episodic Other connective tissue disease (2 sources) Arthrodesis status; Translations: [Arthrodesis status] Onset: 9 Episodic Other connective tissue disease (20 sources) Foot pain; Translations: [Pain in left foot] 12-09-2020 Episodic Other connective tissue disease (12 sources) Pain in left foot; Translations: [Pain in limb] Onset: 5 Episodic Other connective tissue disease (5 sources) Fibromyalgia; Translations: [Myalgia and myositis, unspecified] 04-14-2022 Episodic Other connective tissue disease (8 sources) Panniculitis; Translations: [Panniculitis, unspecified] 12-07-2023 Episodic Other connective tissue disease (1 source) Pain in right foot; Translations: [Pain in right foot] Onset: 5 Episodic Other ear and sense organ disorders (20 sources) Hearing disorder; Translations: [Unspecified hearing loss, unspecified ear] 01-09-2019 Chronic Other gastrointestinal disorders (2 sources) Irritable bowel syndrome without diarrhea; Translations: [Irritable bowel syndrome without diarrhea] Onset: 9 Chronic Other gastrointestinal disorders (20 sources) Irritable bowel syndrome; Translations: [Irritable bowel syndrome without diarrhea] Onset: 7 10-23-2016 Chronic Other gastrointestinal disorders (7 sources) Constipation, unspecified; Translations: [Constipation, unspecified] Onset: 7 07-21-2022 Episodic Other gastrointestinal disorders (20 sources) Gastrointestinal tract problem; Translations: [Other specified symptoms and signs involving the digestive system and abdomen] 01-09-2019 Episodic Other gastrointestinal disorders (20 sources) Dysphagia; Translations: [Dysphagia, unspecified] 05-09-2021 Episodic Other gastrointestinal disorders (13 sources) Dysphagia, unspecified; Translations: [Dysphagia, unspecified] Episodic Other gastrointestinal disorders (20 sources) Constipation; Translations: [Constipation, unspecified] 07-21-2022 Episodic Other gastrointestinal disorders (1 source) Disorder of intestine; Translations: [Other specified diseases of intestine] Onset: 5 Episodic Other gastrointestinal disorders (1 source) Other specified diseases of intestine; Translations: [Other specified diseases of intestine] Onset: 5 Episodic Other injuries and conditions due to external causes (1 source) Injury of head; Translations: [Unspecified injury of head, initial encounter] Onset: 1 Episodic Other injuries and conditions due to external causes (20 sources) Closed injury of head; Translations: [Unspecified injury of head, initial encounter] 01-07-2021 Episodic Other injuries and conditions due to external causes (19 sources) Injury of rotator cuff; Translations: [Unspecified injury of muscle(s) and tendon(s) of the rotator cuff of unspecified shoulder, initial encounter] 07-07-2022 Episodic Other injuries and conditions due to external causes (3 sources) Unspecified injury of muscle(s) and tendon(s) of the rotator cuff of unspecified shoulder, initial encounter; Translations: [Shoulder and upper arm injury] 07-07-2022 Episodic Other liver diseases (20 sources) Steatosis of liver; Translations: [Fatty (change of) liver, not elsewhere classified] 07-13-2021 Chronic Other liver diseases (11 sources) Fatty (change of) liver, not elsewhere classified; Translations: [Other chronic nonalcoholic liver disease] Chronic Other lower respiratory disease (20 sources) Cough; Translations: [Cough] 04-14-2022 Episodic Other nervous system disorders (8 sources) Other chronic pain; Translations: [Other chronic pain] Onset: 9 05-05-2022 Chronic Other nervous system disorders (20 sources) Carpal tunnel syndrome; Translations: [Carpal tunnel syndrome, unspecified upper limb] 01-09-2019 Chronic Other nervous system disorders (20 sources) Neuropathy; Translations: [Polyneuropathy, unspecified] 01-09-2019 Chronic Other nervous system disorders (1 source) Bilateral carpal tunnel syndrome; Translations: [Carpal tunnel syndrome, bilateral upper limbs] Chronic Other nervous system disorders (5 sources) Polyneuropathy, unspecified; Translations: [Mononeuritis of unspecified site] 03-09-2023 Chronic Other nervous system disorders (20 sources) Chronic pain; Translations: [Other chronic pain] Onset: 7 Resolved: 9 04-18-2018 Chronic Other nervous system disorders (5 sources) Chronic low back pain; Translations: [Other chronic pain] Onset: 7 11-26-2017 Chronic Other nervous system disorders (2 sources) Lamar's palsy; 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] Onset: 9 Episodic Other nervous system disorders (20 sources) Lamar's palsy; 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] 01-09-2019 Episodic Other nervous system disorders (20 sources) Postoperative pain ; Translations: [Other acute postprocedural pain] 12-10-2020 Episodic Other non-traumatic joint disorders (20 sources) Pain in left knee; Translations: [Left knee pain] 05-06-2019 Episodic Other non-traumatic joint disorders (8 sources) Multiple joint pain; Translations: [Pain in unspecified joint] Episodic Other non-traumatic joint disorders (2 sources) Shoulder pain; Translations: [Pain in right shoulder] 06-21-2022 Episodic Other non-traumatic joint disorders (20 sources) Pain in right shoulder; Translations: [Pain in joint, shoulder region] 06-21-2022 Episodic Other screening for suspected conditions (not mental disorders or infectious disease) (20 sources) Abnormal finding on evaluation procedure; Translations: [Other abnormal findings in specimens from other organs, systems and tissues] Onset: 2 Episodic Other upper respiratory disease (20 sources) Allergic rhinitis; Translations: [Allergic rhinitis, unspecified] Onset: 8 08-15-2017 Chronic Other upper respiratory disease (20 sources) Seasonal allergy; Translations: [Other seasonal allergic rhinitis] 01-09-2019 Chronic Other upper respiratory infections (1 source) Acute pharyngitis; Translations: [Acute pharyngitis, unspecified] Onset: 1 Episodic Pancreatic disorders (not diabetes) (1 source) Acute pancreatitis; Translations: [Acute pancreatitis without necrosis or infection, unspecified] Onset: 2 Episodic Residual codes; unclassified (2 sources) Acquired absence of both cervix and uterus; Translations: [Acquired absence of both cervix and uterus] Onset: 9 Episodic Residual codes; unclassified (2 sources) Acquired absence of other organs; Translations: [Acquired absence of other organs] Onset: 9 Episodic Residual codes; unclassified (6 sources) Tobacco use; Translations: [Tobacco use disorder] 05-05-2022 Episodic Residual codes; unclassified (19 sources) Early satiety; Translations: [Early satiety] 07-21-2022 Episodic Residual codes; unclassified (3 sources) Other specified postprocedural states; Translations: [Personal history of surgery to other organs] 07-07-2022 Episodic Residual codes; unclassified (1 source) Medical care unavailable; Translations: [Procedure and treatment not carried out for other reasons] 02-07-2024 Episodic Rheumatoid arthritis and related disease (15 sources) Rheumatoid arthritis of multiple joints; Translations: [Rheumatoid arthritis with rheumatoid factor of multiple sites without organ or systems involvement] Onset: 4 01-30-2023 Chronic Screening and history of mental health and substance abuse codes (20 sources) Personal history of nicotine dependence; Translations: [History of clinical finding in subject] Onset: 9 01-09-2019 Episodic Skin and subcutaneous tissue infections (20 sources) Cellulitis; Translations: [Cellulitis, unspecified] 11-01-2020 Episodic Spondylosis; intervertebral disc disorders; other back problems (20 sources) Cervical spondylosis without myelopathy; Translations: [Spondylosis without myelopathy or radiculopathy, cervical region] Onset: 6 Resolved: 9 Chronic Spondylosis; intervertebral disc disorders; other back problems (20 sources) Dorsalgia, unspecified; Translations: [Chronic low back pain] Onset: 6 Resolved: 9 11-26-2017 Episodic Sprains and strains (20 sources) Strain of neck muscle; Translations: [Strain of muscle, fascia and tendon at neck level, initial encounter] 01-07-2021 Episodic Superficial injury; contusion (20 sources) Superficial injury of trunk; Translations: [Contusion of lower back and pelvis, initial encounter] Onset: 1 Episodic Syncope (18 sources) Syncope; Translations: [Syncope and collapse] 04-17-2023 Episodic Systemic lupus erythematosus and connective tissue disorders (20 sources) Systemic lupus erythematosus; Translations: [Systemic lupus erythematosus, unspecified] Onset: 2 Chronic Unclassified (2 sources) Mixed irritable bowel syndrome; Translations: [Mixed irritable bowel syndrome] Onset: 7 Unclassified (1 source) APPOINTMENT CANCELLED Unclassified (1 source) Pain in both feet Urinary tract infections (20 sources) Interstitial cystitis (chronic) without hematuria; Translations: [Chronic interstitial cystitis] Onset: 9 11-26-2017 Chronic Urinary tract infections (20 sources) Urinary tract infectious disease; Translations: [Urinary tract infection, site not specified] Episodic Viral infection (1 source) Viral disease; Translations: [Other viral agents as the cause of diseases classified elsewhere] Onset: 3 Episodic Past or Other Problems Problem Classification Problem Date Documented Da te Episodic/Chronic Abdominal pain (20 sources) Generalized abdominal pain; Translations: [Abdominal pain] Onset: 09-29-2016 Episodic Blindness and vision defects (20 sources) Blurring of visual image; Translations: [Other visual disturbances] Onset: 11-19-2023 12-30-2020 Episodic Deficiency and other anemia (1 source) Anemia, unspecified; Translations: [Anemia, unspecified type] Onset: 11-08-2023 Episodic Malaise and fatigue (20 sources) Right hemiparesis; Translations: [Weakness] Onset: 11-26-2017 11-26-2017 Episodic Nonmalignant breast conditions (10 sources) Increased ; Translations: [Galactorrhea not associated with childbirth] Onset: 11-19-2023 11-19-2023 Episodic Nonspecific chest pain (20 sources) Right sided chest pain; Translations: [Chest pain, unspecified] Onset: 02-27-2024 02-10-2022 Episodic Other aftercare (1 source) Other detention (current) drug therapy; Translations: [Long-term use of Plaquenil] Onset: 11-08-2023 Episodic Other connective tissue disease (20 sources) Muscle pain; Translations: [Myalgia, unspecified site] Onset: 02-02-2016 02-02-2016 Episodic Other connective tissue disease (20 sources) Muscular hypertonicity; Translations: [Other specified disorders of muscle] Onset: 10-23-2016 10-23-2016 Episodic Other connective tissue disease (20 sources) Muscle weakness of limb; Translations: [Other symptoms and signs involving the musculoskeletal system] Onset: 05-11-2016 10-23-2016 Episodic Other connective tissue disease (20 sources) Myofascial pain; Translations: [Myalgia, other site] Onset: 10-23-2016 Resolved: 04-18-2018 Episodic Other gastrointestinal disorders (20 sources) Complete fecal incontinence; Translations: [Full incontinence of feces] Onset: 10-23-2016 10-23-2016 Episodic Other nervous system disorders (20 sources) H/O: brain disorder; Translations: [Personal history of other diseases of the nervous system and sense organs] Onset: 11-03-2014 10-23-2016 Episodic Other non-traumatic joint disorders (20 sources) Chronic pain of right upper limb; Translations: [Pain in right shoulder] Onset: 02-02-2016 11-26-2017 Episodic Other non-traumatic joint disorders (1 source) Pain in unspecified joint; Translations: [Pain in joint, multiple sites] Onset: 01-03-2024 Episodic Results Test Name Value Interpretation Reference Range Facility .Auto Diffon 11-26-2024 Basophil, Absolute 0.0 10 3/mcL Normal 0.0-0.3 [facility] Comment on above: Performed By: #### G FR, LIP, ANEU, ADIFF, MDW, CBC, CMP #### [address] [address] Basophils/100 WBC (Bld) 0.6 % Normal 0.0-2.5 [facility] Comment on above: Performed By: #### G FR, LIP, ANEU, ADIFF, MDW, CBC, CMP #### [address] [address] Eosinophil, Absolute 0.1 10 3/mcL Normal 0.0-0.[address] [facility] Comment on above: Performed By: #### G FR, LIP, ANEU, ADIFF, MDW, CBC, CMP #### [address] [address] Eosinophils/100 WBC (Bld) 4.0 % Normal 0.0-6.0 [facility] Comment on above: Performed By: #### G FR, LIP, ANEU, ADIFF, MDW, CBC, CMP #### [address] [address] Lymphocyte, Absolute 1.2 10 3/mcL Normal 0.9-4.[address] [facility] Comment on above: Performed By: #### G FR, LIP, ANEU, ADIFF, MDW, CBC, CMP #### [address] [address] Lymphocytes/100 WBC (Bld) 33.1 % Normal 20.0-40.0 [facility] Comment on above: Performed By: #### G FR, LIP, ANEU, ADIFF, MDW, CBC, CMP #### [address] [address] Monocyte, Absolute 0.2 10 3/mcL Normal 0.1-1.4 [facility] Comment on above: Performed By: #### G FR, LIP, ANEU, ADIFF, MDW, CBC, CMP #### [address] [address] Monocytes/100 WBC (Bld) 5.0 % Normal 2.0-13.0 [facility] Comment on above: Performed By: #### G FR, LIP, ANEU, ADIFF, MDW, CBC, CMP #### [address] [address] Neutrophils/100 WBC (Bld) 57.3 % Normal 50.0-75.0 [facility] Comment on above: Performed By: #### G FR, LIP, ANEU, ADLU, MDW, CBC, CMP #### [address] [address] .GFRon 11-26-2024 Estimated Glomerular Filtration Rate 89 ml/min/1.73sqm Normal [facility] Comment on above: Result Comment: Stages of Chronic Kidney Disease (CKD) Stage Description eGFR(ml/min/1.73 sq.m.) CKD 1 Normal kidney function or >=90 normal kindney function with possible kidney damage (ex. Proteinuria) CKD 2 Kidney damage with mild loss 60-89 of kidney function CKD 3a Mild to moderate loss of kidney 45-59 function CKD 3b Moderate to severe loss of 30-44 of kindey function CKD 4 Severe loss of kidney function 15-29 CKD 5 Kidney failure <15 Note: (go live 2024) the eGFR calculation was updated to the 2020 CKD-EPI creatinine equation without a race factor to calculate the eGFR results. Performed By: #### G FR, LIP, ANEU, ADIFF, MDW, CBC, CMP #### [address] [address] .MDWon 11-26-2024 Monocyte Distribution Width 16.38 Normal 0.00-20.00 [facility] Comment on above: Result Comment: For ED adult patients suspected of sepsis, MDW<=20.0 does not rule out sepsis or risk of sepsis Performed By: #### G FR, LIP, ANEU, ADIFF, MDW, CBC, CMP #### [address] [address] .NEUABSon 11-26-2024 Neutrophil, Absolute 2.1 10 3/mcL Low 2.3-8.[address] [facility] Comment on above: Performed By: #### G FR, LIP, ANEU, ADIFF, MDW, CBC, CMP #### [address] [address] CBCon 11-26-2024 Erythrocyte distribution width (RBC) [Ratio] 14.4 % Normal 11.5-15.5 [facility] Comment on above: Performed By: #### G FR, LIP, ANEUPRAVEEN, W, CBC, CMP #### [place] [address] Hematocrit (Bld) [Volume fraction] 31.7 % Low 34.0-46.0 [facility] Comment on above: Performed By: #### G FR, LIP, ANEU, PRAVEEN, MDW, CBC, CMP #### [place] [address] Hgb 10.8 G/dL Low 12.0-16.0 [facility] Comment on above: Performed By: #### G FR, LIP, ANEU, PRAVEEN, MDW, CBC, CMP #### [place] [address] MCH (RBC) [Entitic mass] 36.3 pg High 27.0-33.0 [facility] Comment on above: Performed By: #### G FR, LIP, ANEU, PRAVEEN, MDW, CBC, CMP #### [place] [address] MCHC 34.2 G/dL Normal 32.0-36.0 [facility] Comment on above: Performed By: #### G FR, LIP, ANEU, ADLU, MDW, CBC, CMP #### [place] [address] MCV (RBC) [Entitic vol] 106.2 fL High 80.0-99.0 [facility] Comment on above: Performed By: #### G FR, LIP, ANEU, PRAVEEN, W, CBC, CMP #### [address] [address] Platelet 201 10 3/mcL Normal 150-450 [facility] Comment on above: Performed By: #### G FR, LIP, ANEU, ADLU, MDW, CBC, CMP #### [place] [address] Platelet mean volume (Bld) [Entitic vol] 9.7 fL Normal 6.6-10.5 [facility] [place] Comment on above: Performed By: #### G FR, LIP, ANEUPRAVEEN, W, CBC, CMP #### [address] [address] RBC 2.99 10 6/mcL Low 4.10-5.30 [facility] [place] Comment on above: Performed By: #### G FR, LIP, ANEU, PRAVEEN, W, CBC, CMP #### [address] [address] WBC 3.7 10 3/mcL Low 4.5-10.8 [facility] [place] Comment on above: Performed By: #### G FR, LIP, ANEU, PRAVEEN, W, CBC, CMP #### [address] [address] CMPon 11-26-2024 Albumin Level 3.2 G/dL Low 3.5-5.0 [facility] [place] Comment on above: Performed By: #### G FR, MATTY, OSCAR, PRAVEEN, W, CBC, CMP #### [place] [id number] Albumin/Globulin [Mass ratio] 0.9 {ratio} Low 1.1-2.5 [facility] [place] Comment on above: Performed By: #### G FR, LIP, ANEU, PRAVEEN, W, CBC, CMP #### [address] [address] ALP [Catalytic activity/Vol] 125 U/L Normal 40-135 [facility] [place] Comment on above: Performed By: #### G FR, LIP, OSCAR, PRAVEEN, W, CBC, CMP #### [address] [address] ALT [Catalytic activity/Vol] 17 U/L Normal 14-59 [facility] [place] Comment on above: Performed By: #### G FR, LIP, ANEU, PRAVEEN, W, CBC, CMP #### [address] [address] AST [Catalytic activity/Vol] 17 U/L Normal 10-40 [facility] [place] Comment on above: Performed By: #### G , OSCAR STARR ADIFF, MDW, CBC, CMP #### [address] [address] Bili Total 0.2 mg/dL Normal 0.2-1.0 [facility] [place] Comment on above: Result Comment: Use of this assay is not recommended for patients undergoing treatment with eltrombopag due to the potential for falsely elevated results. Performed By: #### G , OSCAR STARR ADIFF, MDW, CBC, CMP #### [address] [address] BUN/Creatinine Ratio 15 ratio Normal 7-27 [facility] Comment on above: Performed By: #### G , OSCAR STARR ADIFF, MDW, CBC, CMP #### [address] [address] Calcium [Mass/Vol] 8.7 mg/dL Normal 8.4-10.2 [facility] Comment on above: Performed By: #### G MATTY ATKINS ANEU, ADIFF, MDW, CBC, CMP #### [address] [address] Chloride [Moles/Vol] 109 mmol/L High 98-107 [facility] Comment on above: Performed By: #### G FR, OSCAR STARR ADIFF, MDW, CBC, CMP #### [address] [address] CO2 [Moles/Vol] 28 mmol/L Normal 22-29 [facility] [place] Comment on above: Performed By: #### G FR, OSCAR STARR ADIFF, MDW, CBC, CMP #### [address] [address] Creatinine [Mass/Vol] 0.81 mg/dL Normal 0.51-0.95 [facility] Comment on above: Performed By: #### G , LIP, PRAVEEN MOORE MDW, CBC, CMP #### [address] [address] Electrolyte Balance 6.0 mEq/L Normal 4.0-15.0 [facility] Comment on above: Performed By: #### G FR, LIP, ANEUPRAVEEN, W, CBC, CMP #### [address] [address] Globulin 3.6 G/dL Normal 2.7-4.4 [facility] [place] Comment on above: Performed By: #### G FR, LIP, PRAVEEN MOORE, W, CBC, CMP #### [place] [id number] Glucose [Mass/Vol] 94 mg/dL Normal 70-105 [facility] Comment on above: Performed By: #### G FR, LIP, PRAVEEN MOORE MDW, CBC, CMP #### [address] [address] Potassium [Moles/Vol] 3.5 mmol/L Normal 3.5-5.1 [facility] Comment on above: Performed By: #### G , MATTY, PRAVEEN MOORE MDW, CBC, CMP #### [address] [address] Sodium [Moles/Vol] 143 mmol/L Normal 136-145 [facility] Comment on above: Performed By: #### G FR, LIP, PRAVEEN MOORE MDW, CBC, CMP #### [address] [address] Total Protein 6.8 G/dL Normal 6.4-8.2 [facility] [place] Comment on above: Performed By: #### G FR, LIP, PRAVEEN MOORE MDW, CBC, CMP #### [address] [address] Urea nitrogen [Mass/Vol] 12 mg/dL Normal 7-18 [facility] [place] Comment on above: Performed By: #### G FR, LIP, PRAVEEN MOORE MDW, CBC, CMP #### [address] [place] [id number] [place], [place] [address] CT ABD/PELVIS W/ IV CONTRAST ONLYon 11-26-2024 CT ABD/PELVIS W/ IV CONTRAST ONLY ORIGINAL EXAMINATION: CT OF THE ABDOMEN AND PELVIS WITH CONTRAST 11/26/2024 1:51 pm TECHNIQUE: CT of the abdomen and pelvis was performed with the administration of intravenous contrast. Multiplanar reformatted images are provided for review. Automated exposure control, iterative reconstruction, and/or weight based adjustment of the mA/kV was utilized to reduce the radiation dose to as low as reasonably achievable. COMPARISON: CT abdomen and pelvis 11/03/2024, 08/28/2024. HISTORY: ORDERING SYSTEM PROVIDED HISTORY: Reason for Exam: PT C/O GENERALIZED ABD PAIN, N+V X2 DAYS. GB OUT 1 MONTH AGO. Abdominal pain, acute, nonlocalized FINDINGS: Lung bases are clear. No pleural effusion heart is normal in size without pericardial effusion. Normal liver morphology. No suspicious hepatic lesions. No significant intra or extrahepatic biliary dilatation status post cholecystectomy. Spleen, pancreas and adrenal glands are unremarkable. Kidneys are symmetric in size without evidence of hydronephrosis or renal calculi. Ureters are normal in caliber. Urinary bladder is unremarkable. Uterus is surgically absent. No adnexal masses. Esophagus, stomach and duodenum are unremarkable. Normal caliber small and large bowel. There is a small ovoid fatty lesion with a central hyperdense dot adjacent to the hepatic flexure with mild associated adjacent inflammatory change. Appendix is surgically absent. No free pelvic fluid or evidence of pneumoperitoneum. Aorta is normal in caliber with moderate atherosclerotic calcifications. Portal venous system is patent. No pathologically enlarged abdominal or pelvic lymph nodes. Abdominal wall is intact. A stimulator device is noted within the right flank extending to the right presacral space. There is also a spinal stimulator within the right flank which extend into the spinal canal. No aggressive osseous lesions. 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 Screws are noted within L5 and S1. IMPRESSION: Acute epiploic appendagitis involving the hepatic flexure. Interpreted by: Tevin Ch Preliminary Report By: Tevin Ch Electronically signed By Tevin Ch Dictated Date: 11/26/2024 2:00:42 PM Prelim Date: 11/26/2024 2:08:09 PM Sign Date: 11/26/2024 2:08:09 PM Ordering Provider: AFSHAN Wang [facility] [place] LABORATORYOrdered By: SYSTEM SYSTEM on 11-26-2024 Albumin BCP dye [Mass/Vol] 3.2 G/dL Low 3.5 - 5.0 G/dL AO ADM SS Albumin/Globulin [Mass ratio] 0.9 {ratio} Low 1.1 - 2.5 ratio AO ADM SS ALP [Catalytic activity/Vol] 125 U/L Normal 40 - 135 U/L AO ADM SS ALT With P-5'-P [Catalytic activity/Vol] 17 U/L Normal 14 - 59 U/L AO ADM SS AST With P-5'-P [Catalytic activity/Vol] 17 U/L Normal 10 - 40 U/L AO ADM SS Basophils (Bld) [#/Vol] 0.0 103/mcL Normal 0.0 - 0.3 10^3/mcL AO Workflow SS Basophils/100 WBC (Bld) 0.6 % Normal 0.0 - 2.5 % AO Workflow SS Bilirubin [Mass/Vol] 0.2 mg/dL Normal 0.2 - 1 .0 mg/dL AO ADM SS Comment on above: Interpretive Data: U se of this assay is not recommended for patients undergoing treatment with eltrombopag due to the potential for falsely elevated results. Calcium [Mass/Vol] 8.7 mg/dL Normal 8.4 - 10. 2 mg/dL AO ADM SS Chloride [Moles/Vol] 109 mmol/L High 98 - 10 7 mmol/L AO ADM SS CO2 [Moles/Vol] 28 mmol/L Normal 22 - 29 mmol/L AO ADM SS Creatinine [Mass/Vol] 0.81 mg/dL Normal 0.51 - 0.95 mg/dL AO ADM SS Electrolyte Balance 6.0 mEq/L Normal 4.0 - 15 .0 mEq/L AO ADM SS Eosinophil, Absolute 0.1 103/mcL Normal 0.0 - 0 .7 10^3/mcL AO Workflow SS Eosinophils/100 WBC (Bld) 4.0 % Normal 0.0 - 6.0 % AO Workflow SS Erythrocyte distribution width (RBC) [Ratio] 14.4 % Normal 11.5 - 15.5 % AO Workflow SS Estimated Glomerular Filtration Rate 89 ml/min/1.73sqm Invalid Interpretation Code AO Chemistry S Comment on above: Interpretive Data: Stages of Chronic Kidney Disease (CKD) Stage Description eGFR(ml/min/1.73 sq.m.) CKD 1 Normal kidney function or >=90 normal kindney function with possible kidney damage (ex. Proteinuria) CKD 2 Kidney damage with mild loss 60-89 of kidney function CKD 3a Mild to moderate loss of kidney 45-59 function CKD 3b Moderate to severe loss of 30-44 of kindey function CKD 4 Severe loss of kidney function 15-29 CKD 5 Kidney failure <15 Note: (go live 2024) the eGFR calculation was updated to the 2020 CKD-EPI creatinine equation without a race factor to calculate the eGFR results. Globulin 3.6 G/dL Normal 2.7 - 4.4 G/dL AO ADM SS Glucose [Mass/Vol] 94 mg/dL Normal 70 - 105 mg/dL AO ADM SS Hematocrit (Bld) [Volume fraction] 31.7 % Low 34.0 - 46.0 % AO Workflow SS Hemoglobin (Bld) [Mass/Vol] 10.8 G/dL Low 12.0 - 16.0 G/dL AO Workflow SS Lipase [Catalytic activity/Vol] 25 U/L Normal 16 - 77 U/L AO ADM SS Lymphocytes (Bld) [#/Vol] 1.2 103/mcL Normal 0.9 - 4.3 10^3/mcL AO Workflow SS Lymphocytes/100 WBC (Bld) 33.1 % Normal 20.0 - 40.0 % AO Workflow SS MCH (RBC) [Entitic mass] 36.3 pg High 27.0 - 33.0 pg AO Workflow SS MCHC 34.2 G/dL Normal 32.0 - 36.0 G/dL AO Workflow SS MCV (RBC) [Entitic vol] 106.2 fL High 80.0 - 99.0 fL AO Workflow SS Monocyte distribution width Auto (Bld) [Entitic vol] 16.38 1 Normal 0.00 - 20.00 AO Workflow SS Comment on above: Result Comment: For ED adult patients suspected of sepsis, MDW<=20.0 does not rule out sepsis or risk of sepsis Monocytes (Bld) [#/Vol] 0.2 103/mcL Normal 0.1 - 1.4 10^3/mcL AO Workflow SS Monocytes/100 WBC (Bld) 5.0 % Normal 2.0 - 13.0 % AO Workflow SS Neutrophils (Bld) [#/Vol] 2.1 103/mcL Low 2.3 - 8.1 10^3/mcL AO Workflow SS Neutrophils/100 WBC (Bld) 57.3 % Normal 50.0 - 75.0 % AO Workflow SS Platelet mean volume (Bld) [Entitic vol] 9.7 fL Normal 6.6 - 10.5 fL AO Workflow SS Platelets (Bld) [#/Vol] 201 103/mcL Normal 150 - 450 10^3/mcL AO Workflow SS Potassium [Moles/Vol] 3.5 mmol/L Normal 3.5 - 5.1 mmol/L AO ADM SS Protein [Mass/Vol] 6.8 G/dL Normal 6.4 - 8.2 G/dL AO ADM SS RBC (Bld) [#/Vol] 2.99 106/mcL Low 4.10 - 5.3 0 10^6/mcL AO Workflow SS Sodium [Moles/Vol] 143 mmol/L Normal 136 - 145 mmol/L AO ADM SS Troponin I.cardiac DL <= 0.01 ng/mL [Mass/Vol] 4 ng/L Normal 0 - 51 ng/L AO ADM SS Comment on above: Interpretive Data: H igh Sensitive Troponin I Reference Ranges: Female: 0-51 ng/L Male: 0-76 ng/L Testing performed on [employer] using a homogeneous sandwich chemiluminescent immunoassay based on [employer] technology. Urea nitrogen [Mass/Vol] 12 mg/dL Normal 7 - 18 mg/dL AO ADM SS Urea nitrogen/Creatinine [Mass ratio] 15 ratio Normal 7 - 27 ratio AO ADM SS WBC (Bld) [#/Vol] 3.7 103/mcL Low 4.5 - 10.8 10^3/mcL AO Workflow SS LABORATORYOrdered By: Александр pike on 11-26-2024 Appearance (U) Clear (11/26/24 1:01 PM) Normal Clear AO Auto Urine SS Bilirubin Ql (U) Negative (11/26/24 1:01 PM) Normal Negative AO Auto Urine SS Color (U) Yellow (11/26/24 1:01 PM) Normal AO Auto Urine SS Glucose Test strip (U) [Mass/Vol] Negative Normal Negative AO Auto Urine SS Hemoglobin Auto test strip (U) [Mass/Vol] Trace (11/26/24 1:01 PM) Normal Negative AO Auto Urine SS Ketones Ql (U) Negative Normal Negative AO Auto Urine SS UA Leuk Est Negative (11/26/24 1:01 PM) Normal Negative AO Auto Urine SS UA Nitrite Negative (11/26/24 1:01 PM) Normal Negative AO Auto Urine SS UA pH 6.0 (11/26/24 1:01 PM) Normal 5.0 - 8.0 AO Auto Urine SS UA Protein Negative Normal Negative AO Auto Urine SS UA Spec Grav 1.010 *ABN* (11/26/24 1:01 PM) Invalid Interpretation Code 1.015-1.025 AO Auto Urine SS UA Specimen Type Clean Catch (11/26/24 1:01 PM) Normal AO Auto Urine SS UA Urobilinogen 0.2 E.U./dL Normal 0.2-1.0 AO Auto Urine SS LIPon 11-26-2024 Lipase Level 25 U/L Normal 16-77 [facility] [place] Comment on above: Performed By: #### G MATTY ATKINS ANEU, ADIFF, MDW, CBC, CMP #### [address] [address] [facility] High Sensitivity Troponin I 4 ng/L Normal 0-51 [facility] [place] Comment on above: Result Comment: High Sensitive Troponin I Reference Ranges: Female: 0-51 ng/L Male: 0-76 ng/L Testing performed on [employer] using a homogeneous sandwich chemiluminescent immunoassay based on [employer] technology. Performed By: #### G MATTY ATKINS ANEU, ADIFF, MDW, CBC, CMP #### [place] [id number] [place], [place] [address] UAon 11-26-2024 Color (U) Yellow Normal [facility] [place] Comment on above: Performed By: #### G MATTY ATKINS ANEU, ADIFF, MDW, CBC, CMP #### [place] [id number] [place], [place] [address] Glucose (U) [Mass/Vol] Negative Normal Negative [facility] Comment on above: Performed By: #### G , OSCAR STARR ADIFF, MDW, CBC, CMP #### [place] [id number] [place], [place] [address] Ketones Ql (U) Negative Normal Negative [facility] [place] Comment on above: Performed By: #### G FR, LIP, PRAVEEN MOORE MDW, CBC, CMP #### [place] [address] UA Appear Clear Normal Clear [facility] [place] Comment on above: Performed By: #### G FR, LIP, PRAVEEN MOORE MDW, CBC, CMP #### [place] [address] UA Blood Trace Normal Negative [facility] [place] Comment on above: Performed By: #### G FR, LIP, PRAVEEN MOORE MDW, CBC, CMP #### [place] [address] UA Leuk Est Negative Normal Negative [facility] [place] Comment on above: Performed By: #### G FR, LIP, PRAVEEN MOORE MDW, CBC, CMP #### [place] [address] UA Nitrite Negative Normal Negative [facility] [place] Comment on above: Performed By: #### G FR, LIP, PRAVEEN MOORE MDW, CBC, CMP #### [place] [address] UA pH 6.0 Normal 5.0 - 8.0 [facility] [place] Comment on above: Performed By: #### G FR, LIP, PRAVEEN MOORE MDW, CBC, CMP #### [place] [address] UA Protein Negative Normal Negative [facility] [place] Comment on above: Performed By: #### G FR, LIP, PRAVEEN MOORE MDW, CBC, CMP #### [place] [address] UA Spec Grav 1.010 Abnormal 1.015-1.025 [facility] [place] Comment on above: Performed By: #### G FR, LIP, ANEU, PRAVEEN, JULIA, CBC, CMP #### [place] [address] UA Specimen Type Clean Catch Normal [facility] [place] Comment on above: Performed By: #### G FR, LIP, ANEU, ADIFF, MDW, CBC, CMP #### [address] [address] UA Urobilinogen 0.2 E.U./dL Normal 0.2-1.0 [facility] [place] Comment on above: Performed By: #### G FR, LIP, ANEU, ADIFF, MDW, CBC, CMP #### [address] [address] Urobilinogen (U) [Mass/Vol] Negative Normal Negative [facility] [place] Comment on above: Performed By: #### G FR, LIP, ANEU, ADIFF, MDW, CBC, CMP #### [address] [address] .Auto Diffon 11-03-2024 Basophil, Absolute 0.0 10 3/mcL Normal 0.0-0.3 [facility] Comment on above: Performed By: #### G FR, LIP, ANEU, ADIFF, MDW, CBC, CMP #### [address] [address] Basophils/100 WBC (Bld) 0.3 % Normal 0.0-2.5 [facility] Comment on above: Performed By: #### G FR, LIP, ANEU, ADIFF, MDW, CBC, CMP #### [address] [address] Eosinophil, Absolute 0.4 10 3/mcL Normal 0.0-0.[address] [facility] Comment on above: Performed By: #### G FR, LIP, ANEU, ADIFF, MDW, CBC, CMP #### [address] [address] Eosinophils/100 WBC (Bld) 7.6 % High 0.0-6.0 [facility] [place] Comment on above: Performed By: #### G FR, LIP, ANEU, ADIFF, MDW, CBC, CMP #### [address] [address] Lymphocyte, Absolute 1.7 10 3/mcL Normal 0.9-4.[address] [facility] Comment on above: Performed By: #### G FR, LIP, ANEU, ADLU, MDW, CBC, CMP #### [address] [address] Lymphocytes/100 WBC (Bld) 36.1 % Normal 20.0-40.0 [facility] [place] Comment on above: Performed By: #### G FR, LIP, ANEU, ADIFF, MDW, CBC, CMP #### [address] [address] Monocyte, Absolute 0.2 10 3/mcL Normal 0.1-1.4 [facility] Comment on above: Performed By: #### G FR, LIP, ANEU, ADIFF, MDW, CBC, CMP #### [address] [address] Monocytes/100 WBC (Bld) 5.1 % Normal 2.0-13.0 [facility] Comment on above: Performed By: #### G FR, LIP, ANEU, ADIFF, MDW, CBC, CMP #### [address] [address] Neutrophils/100 WBC (Bld) 50.9 % Normal 50.0-75.0 [facility] [place] Comment on above: Performed By: #### G FR, LIP, ANEU, ADIFF, MDW, CBC, CMP #### [address] [address] .GFRon 11-03-2024 Estimated Glomerular Filtration Rate 101 ml/min/1.73sqm Normal [facility] [place] Comment on above: Result Comment: Stages of Chronic Kidney Disease (CKD) Stage Description eGFR(ml/min/1.73 sq.m.) CKD 1 Normal kidney function or >=90 normal kindney function with possible kidney damage (ex. Proteinuria) CKD 2 Kidney damage with mild loss 60-89 of kidney function CKD 3a Mild to moderate loss of kidney 45-59 function CKD 3b Moderate to severe loss of 30-44 of kindey function CKD 4 Severe loss of kidney function 15-29 CKD 5 Kidney failure <15 Note: (go live 2024) the eGFR calculation was updated to the 2020 CKD-EPI creatinine equation without a race factor to calculate the eGFR results. Performed By: #### G FR, LIP, ANEU, ADIFF, MDW, CBC, CMP #### [place] [address] .MDWon 11-03-2024 Monocyte Distribution Width 15.86 Normal 0.00-20.00 [facility] [place] Comment on above: Result Comment: For ED adult patients suspected of sepsis, MDW<=20.0 does not rule out sepsis or risk of sepsis Performed By: #### G FR, LIP, ANEU, ADIFF, MDW, CBC, CMP #### [place] [address] .NEUABSon 11-03-2024 Neutrophil, Absolute 2.4 10 3/mcL Normal 2.3-8.[address] [facility] Comment on above: Performed By: #### G FR, LIP, ANEU, ADIFF, MDW, CBC, CMP #### [place] [address] CBCon 11-03-2024 Erythrocyte distribution width (RBC) [Ratio] 13.9 % Normal 11.5-15.5 [facility] [place] Comment on above: Performed By: #### G FR, LIP, ANEU, ADIFF, MDW, CBC, CMP #### [place] [address] Hematocrit (Bld) [Volume fraction] 36.8 % Normal 34.0-46.0 [facility] [place] Comment on above: Performed By: #### G FR, LIP, ANEU, ADIFF, MDW, CBC, CMP #### [place] [address] Hgb 12.4 G/dL Normal 12.0-16.0 [facility] [place] Comment on above: Performed By: #### G FR, LIP, ANEU, ADIFF, MDW, CBC, CMP #### [place] [address] MCH (RBC) [Entitic mass] 35.7 pg High 27.0-33.0 [facility] [place] Comment on above: Performed By: #### G FR, LIP, ANEU, ADLU, MDW, CBC, CMP #### [place] [address] MCHC 33.7 G/dL Normal 32.0-36.0 [facility] [place] Comment on above: Performed By: #### G FR, LIP, ANEU, ADIFF, MDW, CBC, CMP #### [place] [address] MCV (RBC) [Entitic vol] 106.1 fL High 80.0-99.0 [facility] Comment on above: Performed By: #### G FR, LIP, ANEU, ADIFF, MDW, CBC, CMP #### [place] [address] Platelet 160 10 3/mcL Normal 150-450 [facility] [place] Comment on above: Performed By: #### G FR, LIP, ANEU, ADIFF, MDW, CBC, CMP #### [place] [address] Platelet mean volume (Bld) [Entitic vol] 9.7 fL Normal 6.6-10.5 [facility] [place] Comment on above: Performed By: #### G FR, LIP, ANEU, ADIFF, MDW, CBC, CMP #### [place] [address] RBC 3.47 10 6/mcL Low 4.10-5.30 [facility] [place] Comment on above: Performed By: #### G FR, LIP, ANEU, ADIFF, MDW, CBC, CMP #### [place] [address] WBC 4.7 10 3/mcL Normal 4.5-10.8 [facility] [place] Comment on above: Performed By: #### G FR, LIP, ANEU, ADIFF, MDW, CBC, CMP #### [place] [id number] CMPon 11-03-2024 Albumin Level 3.5 G/dL Normal 3.5-5.0 [facility] [place] Comment on above: Performed By: #### G FR, LIP, ANEU, ADIFF, MDW, CBC, CMP #### [place] [address] Albumin/Globulin [Mass ratio] 0.9 {ratio} Low 1.1-2.5 [facility] [place] Comment on above: Performed By: #### G FR, LIP, ANEU, ADIFF, MDW, CBC, CMP #### [place] [address] ALP [Catalytic activity/Vol] 127 U/L Normal 40-135 [facility] [place] Comment on above: Performed By: #### G FR, LIP, ANEU, ADIFF, MDW, CBC, CMP #### [place] [address] ALT [Catalytic activity/Vol] 29 U/L Normal 14-59 [facility] [place] Comment on above: Performed By: #### G FR, LIP, ANEU, ADIFF, MDW, CBC, CMP #### [place] [address] AST [Catalytic activity/Vol] 15 U/L Normal 10-40 [facility] [place] Comment on above: Performed By: #### G FR, LIP, ANEU, ADIFF, MDW, CBC, CMP #### [place] [id number] Bili Total 0.2 mg/dL Normal 0.2-1.0 [facility] [place] Comment on above: Result Comment: Use of this assay is not recommended for patients undergoing treatment with eltrombopag due to the potential for falsely elevated results. Performed By: #### G FR, LIP, ANEU, ADIFF, MDW, CBC, CMP #### [place] [address] BUN/Creatinine Ratio 15 ratio Normal 7-27 [facility] Comment on above: Performed By: #### G FR, LIP, ANEU, ADIFF, JULIA, CBC, CMP #### [place] [address] Calcium [Mass/Vol] 8.5 mg/dL Normal 8.4-10.2 [facility] Comment on above: Performed By: #### G FR, LIP, ANEUPRAVEEN, W, CBC, CMP #### [place] [address] Chloride [Moles/Vol] 106 mmol/L Normal 98-107 [facility] Comment on above: Performed By: #### G FR, LIP, OSCAR, PRAVEEN, W, CBC, CMP #### [place] [address] CO2 [Moles/Vol] 23 mmol/L Normal 22-29 [facility] [place] Comment on above: Performed By: #### G FR, LIP, PRAVEEN MOORE MDW, CBC, CMP #### [place] [address] Creatinine [Mass/Vol] 0.73 mg/dL Normal 0.51-0.95 [facility] Comment on above: Performed By: #### G , MATTY, PRAVEEN MOORE MDW, CBC, CMP #### [place] [address] Electrolyte Balance 13.0 mEq/L Normal 4.0-15.0 [facility] Comment on above: Performed By: #### G FR, LIP, PRAVEEN MOORE MDW, CBC, CMP #### [place] [address] Globulin 3.9 G/dL Normal 2.7-4.4 [facility] [place] Comment on above: Performed By: #### G FR, LIP, PRAVEEN MOORE MDW, CBC, CMP #### [place] [address] Glucose [Mass/Vol] 91 mg/dL Normal 70-105 [facility] Comment on above: Performed By: #### G FR, LIP, ANEU, ADIFF, MDW, CBC, CMP #### [place] [id number] [place], [place] [address] Potassium [Moles/Vol] 3.6 mmol/L Normal 3.5-5.1 [facility] Comment on above: Performed By: #### G FR, LIP, ANEU, ADIFF, MDW, CBC, CMP #### [place] [id number] [place], [place] [address] Sodium [Moles/Vol] 142 mmol/L Normal 136-145 [facility] Comment on above: Performed By: #### G FR, LIP, ANEU, ADIFF, MDW, CBC, CMP #### [address] [address] Total Protein 7.4 G/dL Normal 6.4-8.2 [facility] [place] Comment on above: Performed By: #### G FR, LIP, ANEU, ADLU, MDW, CBC, CMP #### [address] [address] Urea nitrogen [Mass/Vol] 11 mg/dL Normal 7-18 [facility] [place] Comment on above: Performed By: #### G FR, LIP, ANEU, PRAVEEN, MDW, CBC, CMP #### [address] [address] [address] ABD/PELVIS W/ IV CONTRAST ONLYon 11-03-2024 CT ABD/PELVIS W/ IV CONTRAST ONLY ORIGINAL EXAMINATION: CT OF THE ABDOMEN AND PELVIS WITH CONTRAST 11/03/2024 3:04 pm TECHNIQUE: CT of the abdomen and pelvis was performed with the administration of intravenous contrast. Multiplanar reformatted images are provided for review. Automated exposure control, iterative reconstruction, and/or weight based adjustment of the mA/kV was utilized to reduce the radiation dose to as low as reasonably achievable. COMPARISON: None. HISTORY: ORDERING SYSTEM PROVIDED HISTORY: Reason for Exam: RUQ PAIN, VOMITING, [place] 2 WEEKS AGO, CONSTIPATION, DIARRHEA, HX UTERINE CA postoperative pain RUQ, vomiting FINDINGS: Lung bases are clear. Intrahepatic biliary ductal dilatation may be secondary to the patient's post cholecystectomy status. Pancreas, adrenal glands, kidneys demonstrate no acute abnormalities. Small bowel and colon are normal in course and caliber without evidence of an acute obstructive or inflammatory process. Large quantity of stool is present throughout the colon to the level of the descending colon. No lymphadenopathy. Aorta is normal in caliber. No intra-abdominal free air or free fluid. Urinary bladder is normal in appearance. There are screws present within the L5 and S1 vertebral bodies which appear to be intact. Pars defects are present bilaterally at L5. Nerve stimulator device present within the right gluteal soft tissues. IMPRESSION: Large quantity of stool throughout the colon to the level of the descending colon, could be seen the setting of constipation. No additional acute intra-abdominal findings. Interpreted by: Tisha Herrera MD Preliminary Report By: Tisha Herrera MD Electronically signed By Tisha Herrera MD Dictated Date: 11/03/2024 3:09:05 PM Prelim Date: 11/03/2024 3:16:26 PM Sign Date: 11/03/2024 3:16:26 PM Ordering Provider: ANTOLIN Wang [facility] LABORATORYOrdered By: Александр pike on 11-03-2024 Appearance (U) Clear (11/03/24 3:12 PM) Normal Clear AO Auto Urine SS Bilirubin Ql (U) Negative (11/03/24 3:12 PM) Normal Negative AO Auto Urine SS Color (U) Yellow (11/03/24 3:12 PM) Normal AO Auto Urine SS Glucose Test strip (U) [Mass/Vol] Negative Normal Negative AO Auto Urine SS Hemoglobin Auto test strip (U) [Mass/Vol] Trace (11/03/24 3:12 PM) Normal Negative AO Auto Urine SS Ketones Ql (U) Negative Normal Negative AO Auto Urine SS UA Leuk Est Negative (11/03/24 3:12 PM) Normal Negative AO Auto Urine SS UA Nitrite Negative (11/03/24 3:12 PM) Normal Negative AO Auto Urine SS UA pH 6.0 (11/03/24 3:12 PM) Normal 5.0 - 8.0 AO Auto Urine SS UA Protein Negative Normal Negative AO Auto Urine SS UA Spec Grav 1.010 *ABN* (11/03/24 3:12 PM) Invalid Interpretation Code 1.015-1.025 AO Auto Urine SS UA Specimen Type Clean Catch (11/03/24 3:12 PM) Normal AO Auto Urine SS UA Urobilinogen 0.2 E.U./dL Normal 0.2-1.0 AO Auto Urine SS LABORATORYOrdered By: SYSTEM SYSTEM on 11-03-2024 Albumin BCP dye [Mass/Vol] 3.5 G/dL Normal 3.5 - 5.0 G/dL AO ADM SS Albumin/Globulin [Mass ratio] 0.9 {ratio} Low 1.1 - 2.5 ratio AO ADM SS ALP [Catalytic activity/Vol] 127 U/L Normal 40 - 135 U/L AO ADM SS ALT With P-5'-P [Catalytic activity/Vol] 29 U/L Normal 14 - 59 U/L AO ADM SS AST With P-5'-P [Catalytic activity/Vol] 15 U/L Normal 10 - 40 U/L AO ADM SS Basophils (Bld) [#/Vol] 0.0 103/mcL Normal 0.0 - 0.3 10^3/mcL AO Workflow SS Basophils/100 WBC (Bld) 0.3 % Normal 0.0 - 2.5 % AO Workflow SS Bilirubin [Mass/Vol] 0.2 mg/dL Normal 0.2 - 1 .0 mg/dL AO ADM SS Comment on above: Interpretive Data: U se of this assay is not recommended for patients undergoing treatment with eltrombopag due to the potential for falsely elevated results. Calcium [Mass/Vol] 8.5 mg/dL Normal 8.4 - 10. 2 mg/dL AO ADM SS Chloride [Moles/Vol] 106 mmol/L Normal 98 - 10 7 mmol/L AO ADM SS CO2 [Moles/Vol] 23 mmol/L Normal 22 - 29 mmol/L AO ADM SS Creatinine [Mass/Vol] 0.73 mg/dL Normal 0.51 - 0.95 mg/dL AO ADM SS Electrolyte Balance 13.0 mEq/L Normal 4.0 - 15 .0 mEq/L AO ADM SS Eosinophil, Absolute 0.4 103/mcL Normal 0.0 - 0 .7 10^3/mcL AO Workflow SS Eosinophils/100 WBC (Bld) 7.6 % High 0.0 - 6.0 % AO Workflow SS Erythrocyte distribution width (RBC) [Ratio] 13.9 % Normal 11.5 - 15.5 % AO Workflow SS Estimated Glomerular Filtration Rate 101 ml/min/1.73sqm Invalid Interpretation Code AO Chemistry S Comment on above: Interpretive Data: Stages of Chronic Kidney Disease (CKD) Stage Description eGFR(ml/min/1.73 sq.m.) CKD 1 Normal kidney function or >=90 normal kindney function with possible kidney damage (ex. Proteinuria) CKD 2 Kidney damage with mild loss 60-89 of kidney function CKD 3a Mild to moderate loss of kidney 45-59 function CKD 3b Moderate to severe loss of 30-44 of kindey function CKD 4 Severe loss of kidney function 15-29 CKD 5 Kidney failure <15 Note: (go live 2024) the eGFR calculation was updated to the 2020 CKD-EPI creatinine equation without a race factor to calculate the eGFR results. Globulin 3.9 G/dL Normal 2.7 - 4.4 G/dL AO ADM SS Glucose [Mass/Vol] 91 mg/dL Normal 70 - 105 mg/dL AO ADM SS Hematocrit (Bld) [Volume fraction] 36.8 % Normal 34.0 - 46.0 % AO Workflow SS Hemoglobin (Bld) [Mass/Vol] 12.4 G/dL Normal 12.0 - 16.0 G/dL AO Workflow SS Lipase [Catalytic activity/Vol] 22 U/L Normal 16 - 77 U/L AO ADM SS Lymphocytes (Bld) [#/Vol] 1.7 103/mcL Normal 0.9 - 4.3 10^3/mcL AO Workflow SS Lymphocytes/100 WBC (Bld) 36.1 % Normal 20.0 - 40.0 % AO Workflow SS MCH (RBC) [Entitic mass] 35.7 pg High 27.0 - 33.0 pg AO Workflow SS MCHC 33.7 G/dL Normal 32.0 - 36.0 G/dL AO Workflow SS MCV (RBC) [Entitic vol] 106.1 fL High 80.0 - 99.0 fL AO Workflow SS Monocyte distribution width Auto (Bld) [Entitic vol] 15.86 1 Normal 0.00 - 20.00 AO Workflow SS Comment on above: Result Comment: For ED adult patients suspected of sepsis, MDW<=20.0 does not rule out sepsis or risk of sepsis Monocytes (Bld) [#/Vol] 0.2 103/mcL Normal 0.1 - 1.4 10^3/mcL AO Workflow SS Monocytes/100 WBC (Bld) 5.1 % Normal 2.0 - 13.0 % AO Workflow SS Neutrophils (Bld) [#/Vol] 2.4 103/mcL Normal 2.3 - 8.1 10^3/mcL AO Workflow SS Neutrophils/100 WBC (Bld) 50.9 % Normal 50.0 - 75.0 % AO Workflow SS Platelet mean volume (Bld) [Entitic vol] 9.7 fL Normal 6.6 - 10.5 fL AO Workflow SS Platelets (Bld) [#/Vol] 160 103/mcL Normal 150 - 450 10^3/mcL AO Workflow SS Potassium [Moles/Vol] 3.6 mmol/L Normal 3.5 - 5.1 mmol/L AO ADM SS Protein [Mass/Vol] 7.4 G/dL Normal 6.4 - 8.2 G/dL AO ADM SS RBC (Bld) [#/Vol] 3.47 106/mcL Low 4.10 - 5.3 0 10^6/mcL AO Workflow SS Sodium [Moles/Vol] 142 mmol/L Normal 136 - 145 mmol/L AO ADM SS Urea nitrogen [Mass/Vol] 11 mg/dL Normal 7 - 18 mg/dL AO ADM SS Urea nitrogen/Creatinine [Mass ratio] 15 ratio Normal 7 - 27 ratio AO ADM SS WBC (Bld) [#/Vol] 4.7 103/mcL Normal 4.5 - 10.8 10^3/mcL AO Workflow SS LIPon 11-03-2024 Lipase Level 22 U/L Normal 16-77 [facility] Comment on above: Performed By: #### G FR, LIP, ANEU, PRAVEEN, MDW, CBC, CMP #### [address] [address] UAon 11-03-2024 Color (U) Yellow Normal [facility] Comment on above: Performed By: #### G FR, LIP, ANEU, MD PRAVEENW, CBC, CMP #### [id number] [place], [place] [address] Glucose (U) [Mass/Vol] Negative Normal Negative [facility] Comment on above: Performed By: #### G FR, LIP, ANEU, PRAVEEN, W, CBC, CMP #### [id number] [place], [place] [address] Ketones Ql (U) Negative Normal Negative [facility] Comment on above: Performed By: #### G FR, LIP, ANEU, PRAVEEN, W, CBC, CMP #### [place] [address] UA Appear Clear Normal Clear [facility] Comment on above: Performed By: #### G FR, LIP, ANEU, PRAVEEN, W, CBC, CMP #### [place] [address] UA Blood Trace Normal Negative [facility] Comment on above: Performed By: #### G FR, LIP, ANEU, PRAVEEN, W, CBC, CMP #### [place] [address] UA Leuk Est Negative Normal Negative [facility] Comment on above: Performed By: #### G FR, LIP, ANEU, PRAVEEN, W, CBC, CMP #### [place] [address] UA Nitrite Negative Normal Negative [facility] Comment on above: Performed By: #### G FR, LIP, ANEU, PRAVEEN, W, CBC, CMP #### [place] [address] UA pH 6.0 Normal 5.0 - 8.0 [facility] Comment on above: Performed By: #### G FR, LIP, ANEU, PRAVEEN, MDW, CBC, CMP #### [place] [address] UA Protein Negative Normal Negative [facility] Comment on above: Performed By: #### G FR, LIP, ANEU, PRAVEEN, W, CBC, CMP #### [place] [address] UA Spec Grav 1.010 Abnormal 1.015-1.025 [facility] Comment on above: Performed By: #### G FR, LIP, ANEU, ADLU, MDW, CBC, CMP #### [place] [address] UA Specimen Type Clean Catch Normal [facility] Comment on above: Performed By: #### G , MATTY, PRAVEEN MOORE MDW, CBC, CMP #### [id number] [place], [place] [address] UA Urobilinogen 0.2 E.U./dL Normal 0.2-1.0 [facility] Comment on above: Performed By: #### G FR, MATTY, PRAVEEN MOORE MDW, CBC, CMP #### [id number] [place], [place] [address] Urobilinogen (U) [Mass/Vol] Negative Normal Negative [facility] Comment on above: Performed By: #### G , OSCAR STARR ADIFF, MDW, CBC, CMP #### [id number] [place], [place] [address] Internal Medicine Office Vis iton 10-27-2024 Internal Medicine Office Visit Normal [facility] 12 Lead EKGon 10-13-2024 12 Lead EKG Normal [facility] Discharge Instructionon Discharge Instruction Normal [facility] MR/POSTOP.ANEon 10-13-2024 MR/POSTOP.ANE Normal [facility] MR/[id number] 10-13-2024 MR/POSTOPAN2 Normal [facility] Operative Reporton Operative Report Normal [facility] Surgery Specimen Level IIIon 10-13-2024 Surgery Specimen Level III Normal [facility] Comment on above: Performed By: #### P SUIII ####[facility] [address] [place], [place], [id number] MR/PAT.ANEon 10-06-2024 MR/PAT.ANE Normal [facility] Absolute lymphocyte countOrd ered By: Delfino Garza on 10-02-2024 Lymphocytes Auto (Unsp spec) [#/Vol] 1.21 10*3/uL 0.83-4.51 [facility] Anion gap in Serum or Plasma Ordered By: Delfino Garza on 10-02-2024 Anion gap [Moles/Vol] 11 mmol/L 5-15 [facility] Automated lymphocyte count a s percentage of total leukocytesOrdered By: Delfino Dara on 10-02-2024 Lymphocytes/100 WBC Auto (Unsp spec) 23.6 % - [facility] BUN/creatinine ratioOrdered By: Delfino Dara on 10-02-2024 Urea nitrogen/Creatinine [Mass ratio] 10.5 mg/mg 10- [facility] Basic Metabolic Profile (BMP )on 10-02-2024 BUN/CRE 10.5 RATIO Normal 01-26 [facility] Comment on above: Performed By: #### L 501.2450, L500.2500, L100.0100, L500.3400 ####[facility] [address] [place], [address] Calcium [Mass/Vol] 8.6 mg/dL Normal 7.6-11.0 [facility] Comment on above: Performed By: #### L 501.2450, L500.2500, L100.0100, L500.3400 ####[facility] [address] [place], [address] Chloride [Moles/Vol] 111 mmol/L High 98-108 [facility] Comment on above: Performed By: #### L 501.2450, L500.2500, L100.0100, L500.3400 ####[facility] [address] [place], [address] CO2 [Moles/Vol] 23.2 mmol/L Normal 21.0-32.0 [facility] Comment on above: Performed By: #### L 501.2450, L500.2500, L100.0100, L500.3400 ####[facility] [address] [place], [address] Creatinine [Mass/Vol] 0.68 mg/dL Low 0.70-1.20 [facility] Comment on above: Performed By: #### L 501.2450, L500.2500, L100.0100, L500.3400 ####[facility] [address], [address] ECRCL 112.89 ml/min Normal 50-250 [facility] Comment on above: Performed By: #### L 501.2450, L500.2500, L100.0100, L500.3400 ####[facility] [address] [place], [address] GAP 11 Normal 5-15 [facility] Comment on above: Performed By: #### L 501.2450, L500.2500, L100.0100, L500.3400 ####[facility] [address] [place], [address] GFR/1.73 sq M.predicted among non-blacks MDRD (S/P/Bld) [Vol rate/Area] 107 mL/min/{1.73_m2} Normal >60 [facility] Comment on above: Result Comment: mL/m in/1.73m2 CKD-EPI Creatinine Equation (2020) Performed By: #### L 501.2450, L500.2500, L100.0100, L500.3400 ####[facility] [address] [place], [address] Glucose [Mass/Vol] 90 mg/dL Normal 70-99 [facility] Comment on above: Performed By: #### L 501.2450, L500.2500, L100.0100, L500.3400 ####[facility] [address] [place], [address] Potassium [Moles/Vol] 3.4 mmol/L Normal 3.3-5.1 [facility] Comment on above: Performed By: #### L 501.2450, L500.2500, L100.0100, L500.3400 ####[facility] [address] [place], [address] Sodium [Moles/Vol] 145 mmol/L Normal 133-145 [facility] Comment on above: Performed By: #### L 501.2450, L500.2500, L100.0100, L500.3400 ####[facility] [address] [place], [address] Urea nitrogen [Mass/Vol] 7 mg/dL Normal 4-19 [facility] Comment on above: Performed By: #### L 501.2450, L500.2500, L100.0100, L500.3400 ####[facility] [address] [place], [address] Basophil percentageOrdered B y: Delfino Garza on 10-02-2024 Basophils/100 WBC (Bld) 0.6 % 0-1 [facility] Bilirubin directOrdered By: Delfino Garza on 10-02-2024 Bilirubin.direct [Mass/Vol] 0.09 mg/dL 0.00-0.30 [facility] Bilirubin, totalOrdered By: Delfino Garza on 10-02-2024 Bilirubin [Mass/Vol] 0.20 mg/dL 0.00-1.30 [facility] CBC W/Diff, Automatedon 09-08 Absolute Lymph 1.21 X10 3/uL Normal 0.83-4.51 [facility] Comment on above: Performed By: #### L 501.2450, L500.2500, L100.0100, L500.3400 ####[facility] [address] [place], [address] Absolute Neut 3.6 X10 3/uL Normal 2.0-7.7 [facility] Comment on above: Performed By: #### L 501.2450, L500.2500, L100.0100, L500.3400 ####[facility] [address] [place], [address] Basophils/100 WBC (Bld) 0.6 % Normal 0-1 [facility] Comment on above: Performed By: #### L 501.2450, L500.2500, L100.0100, L500.3400 ####[facility] [address] [place], [address] Eosinophils/100 WBC (Bld) 2.5 % Normal 0-5 [facility] Comment on above: Performed By: #### L 501.2450, L500.2500, L100.0100, L500.3400 ####[facility] [address] [place], [address] Erythrocyte distribution width (RBC) [Ratio] 13.1 % Normal 11.6-14.6 [facility] Comment on above: Performed By: #### L 501.2450, L500.2500, L100.0100, L500.3400 ####[facility] [address] [place], [address] Hematocrit (Bld) [Volume fraction] 31.9 % Low 37-47 [facility] Comment on above: Performed By: #### L 501.2450, L500.2500, L100.0100, L500.3400 ####[facility] [address] [place], [address] Hemoglobin (Bld) [Mass/Vol] 10.7 g/dL Low 12.0-15.0 [facility] Comment on above: Performed By: #### L 501.2450, L500.2500, L100.0100, L500.3400 ####[facility] [address] [place], [address] IG% 0.200 Normal 0.0-0.9 [facility] Comment on above: Result Comment: IG% - Immature Granulocytes (promyelocytes, myelocytes andmetamyelocytes) > 1% indicates that a LEFT SHIFT is Present. Performed By: #### L 501.2450, L500.2500, L100.0100, L500.3400 ####[facility] [address] [place], [address] Lymphocytes/100 WBC (Bld) 23.6 % Normal 19-41 [facility] Comment on above: Performed By: #### L 501.2450, L500.2500, L100.0100, L500.3400 ####[facility] [address] [place], [address] MCH (RBC) [Entitic mass] 35.8 pg High 27.0-32.0 [facility] Comment on above: Performed By: #### L 501.2450, L500.2500, L100.0100, L500.3400 ####[facility] [address] [place], [address] MCHC (RBC) [Mass/Vol] 33.5 g/dL Normal 32-36 [facility] Comment on above: Performed By: #### L 501.2450, L500.2500, L100.0100, L500.3400 ####[facility] [address] [place], [address] MCV (RBC) [Entitic vol] 106.7 fL High 81-99 [facility] Comment on above: Performed By: #### L 501.2450, L500.2500, L100.0100, L500.3400 ####[facility] [address] [place], [address] Monocytes/100 WBC (Bld) 2.9 % Normal 0-10 [facility] Comment on above: Performed By: #### L 501.2450, L500.2500, L100.0100, L500.3400 ####[facility] [address] [place], [address] Neutrophils/100 WBC (Bld) 70.2 % High 47-70 [facility] Comment on above: Performed By: #### L 501.2450, L500.2500, L100.0100, L500.3400 ####[facility] [address] [place], [address] Nucleated RBC (Bld) [#/Vol] 0 10*3/uL Normal 0-5 [facility] Comment on above: Performed By: #### L 501.2450, L500.2500, L100.0100, L500.3400 ####[facility] [address] [place], [address] Platelet mean volume (Bld) [Entitic vol] 11.7 fL Normal 6.2-12.0 [facility] Comment on above: Performed By: #### L 501.2450, L500.2500, L100.0100, L500.3400 ####[facility] [address] [place], [address] Platelets (Bld) [#/Vol] 141 10*3/uL Low 150-450 [facility] Comment on above: Performed By: #### L 501.2450, L500.2500, L100.0100, L500.3400 ####[facility] [address] [place], [address] RBC (Bld) [#/Vol] 2.99 10*6/uL Low 4.2-5.4 [facility] Comment on above: Performed By: #### L 501.2450, L500.2500, L100.0100, L500.3400 ####[facility] [address] [place], [address] RDW SD 50.5 fl High 35.1-43.9 [facility] Comment on above: Performed By: #### L 501.2450, L500.2500, L100.0100, L500.3400 ####[facility] [address] [place], [address] WBC (Bld) [#/Vol] 5.1 10*3/uL Normal 4.4-11.0 [facility] Comment on above: Performed By: #### L 501.2450, L500.2500, L100.0100, L500.3400 ####[facility] [address] [place], [place], [id number] Carbon dioxide, total [Moles /volume] in Central venous bloodOrdered By: Delfino Garza on 10-02-2024 CO2 [Moles/Vol] 23.2 mmol/L 21.0-32.0 [facility] Chloride assayOrdered By: Ran Garza on 10-02-2024 Chloride [Moles/Vol] 111 mmol/L High 98-108 [facility] Emergency Department Summary on 10-02-2024 Emergency Department Summary Normal [facility] Eosinophil percentageOrdered By: Delfino Garza on 10-02-2024 Eosinophils/100 WBC (Bld) 2.5 % 0-5 [facility] Erythrocyte distribution wid th ratioOrdered By: Delfino Garza on 10-02-2024 Erythrocyte distribution width (RBC) [Ratio] 13.1 % 11.6-14.6 [facility] Erythrocyte distribution wid th standard deviationOrdered By: Delfino Garza on 10-02-2024 Erythrocyte distribution width (RBC) [Ratio] 50.5 fl High 35.1-43.9 [facility] Glomerular filtration rate ( GFR) estimation/1.73 sq m using serum, plasma, or whole bOrdered By: Delfino Garza on 10-02-2024 GFR/1.73 sq M.predicted among non-blacks MDRD (S/P/Bld) [Vol rate/Area] 107 mL/min/{1.73_m2} >60 [facility] Hematocrit Auto (Bld) [Volum e fraction]Ordered By: Delfino Garza on 10-02-2024 Hematocrit (Bld) [Volume fraction] 31.9 % Low 37-47 [facility] Hemoglobin measurementOrdere d By: Delfino Garza on 10-02-2024 Hemoglobin (Bld) [Mass/Vol] 10.7 g/dL Low 12.0-15.0 [facility] Immature granulocytes/100 WB C Auto (Bld)Ordered By: Delfino Garza on 10-02-2024 Immature granulocytes/100 WBC (Bld) 0.200 % 0.0-0.9 [facility] Lipaseon 10-02-2024 Lipase [Catalytic activity/Vol] 31 U/L Normal 13-75 [facility] Comment on above: Result Comment: Viktor swift note:LIPASE revised reference range effective 22.New Lipase methodology. Expected to produce lower valuesthan the previous assay method.NEW Reference Range: 13 - 75 U/L Performed By: #### L 501.2450, L500.2500, L100.0100, L500.3400 ####[facility] [address] [place], [address] Liver Profileon 10-02-2024 Albumin [Mass/Vol] 3.9 g/dL Normal 3.5-5.0 [facility] Comment on above: Performed By: #### L 501.2450, L500.2500, L100.0100, L500.3400 ####[facility] [address] [place], [address] ALK PHOS 118 U/L High 35-104 [facility] Comment on above: Performed By: #### L 501.2450, L500.2500, L100.0100, L500.3400 ####[facility] [address] [place], [address] ALT [Catalytic activity/Vol] 11 U/L Normal <=34 [facility] Comment on above: Performed By: #### L 501.2450, L500.2500, L100.0100, L500.3400 ####[facility] [address] [place], [address] AST [Catalytic activity/Vol] 21 U/L Normal <=31 [facility] Comment on above: Performed By: #### L 501.2450, L500.2500, L100.0100, L500.3400 ####[facility] [address] [place], [address] Bilirubin [Mass/Vol] 0.20 mg/dL Normal 0.00-1.30 [facility] Comment on above: Performed By: #### L 501.2450, L500.2500, L100.0100, L500.3400 ####[facility] [address] [place], [address] Bilirubin.direct [Mass/Vol] 0.09 mg/dL Normal 0.00-0.30 [facility] Comment on above: Performed By: #### L 501.2450, L500.2500, L100.0100, L500.3400 ####[facility] [address] [place], [address] Globulin (S) [Mass/Vol] 2.8 g/dL Normal 2.2-4.2 [facility] Comment on above: Performed By: #### L 501.2450, L500.2500, L100.0100, L500.3400 ####[facility] [address] [place], [address] T PROT 6.7 g/dL Normal 5.9-8.4 [facility] Comment on above: Performed By: #### L 501.2450, L500.2500, L100.0100, L500.3400 ####[facility] [address] [place], [address] MCV (mean corpuscular volume ) determinationOrdered By: Delfino Garza on 10-02-2024 MCV (RBC) [Entitic vol] 106.7 fL High 81-99 [facility] Mean corpuscular hemoglobin (MCH) determinationOrdered By: Delfino Garza on 10-02-2024 MCH (RBC) [Entitic mass] 35.8 pg High 27.0-32.0 [facility] Monocyte percentageOrdered B y: Delfino Garza on 10-02-2024 Monocytes/100 WBC (Bld) 2.9 % 0-10 [facility] Neutrophil percentageOrdered By: Delfino Garza on 10-02-2024 Neutrophils/100 WBC (Bld) 70.2 % High 47-70 [facility] No Panel InformationOrdered By: Delfino Garza on 10-02-2024 21 U/L <32 [facility] Platelet countOrdered By: Ran Garza on 10-02-2024 Platelets (Bld) [#/Vol] 141 10*3/uL Low 150-450 [facility] Potassium measurement (mass/ volume)Ordered By: Delfino Garza on 10-02-2024 Potassium (Unsp spec) [Mass/Vol] 3.4 mmol/L 3.3-5.1 [facility] RBC Auto (Bld) [#/Vol]Ordere d By: Delfino Garza on 10-02-2024 RBC (Bld) [#/Vol] 2.99 10*6/uL Low 4.2-5.4 [facility] Serum creatinine measurement (mass/volume)Ordered By: Delfino Garza on 10-02-2024 Creatinine [Mass/Vol] 0.68 mg/dL Low 0.70-1.20 [facility] Serum globulin measurementOr dered By: Delfino Garza on 10-02-2024 Globulin (S) [Mass/Vol] 2.8 g/dL 2.2-4.2 [facility] Serum glucose measurement (m ass/volume)Ordered By: Delfino Garza on 10-02-2024 Glucose [Mass/Vol] 90 mg/dL 70-99 [facility] Serum or plasma alanine bautista otransferase (ALT) measurementOrdered By: Delfino Garza on 10-02-2024 ALT [Catalytic activity/Vol] 11 U/L <35 [facility] Serum or plasma albumin greg urement (mass/volume)Ordered By: Delfino Garza on 10-02-2024 Albumin [Mass/Vol] 3.9 g/dL 3.5-5.0 [facility] Serum or plasma alkaline micky sphatase measurementOrdered By: Delfino Garza on 10-02-2024 ALP [Catalytic activity/Vol] 118 U/L High 35-104 [facility] Serum or plasma calcium greg urement (mass/volume)Ordered By: Delfino Garza on 10-02-2024 Calcium [Mass/Vol] 8.6 mg/dL 7.6-11.0 [facility] Serum or plasma urea nitroge n measurement (mass/volume)Ordered By: Delfino Garza on 10-02-2024 Urea nitrogen [Mass/Vol] 7 mg/dL 4-19 [facility] Sodium levelOrdered By: Delfino Garza on 10-02-2024 Sodium [Moles/Vol] 145 mmol/L 133-145 [facility] Total proteinOrdered By: Julio kourtney Dara on 10-02-2024 Protein [Mass/Vol] 6.7 g/dL 5.9-8.4 [facility] White blood cell (WBC) count Ordered By: Delfino Garza on 10-02-2024 WBC (Bld) [#/Vol] 5.1 10*3/uL 4.4-11.0 [facility] Surgery Visit Reporton 10-01 Surgery Visit Report Normal [facility] Absolute lymphocyte countOrd ered By: Daniel Pena on 09-24-2024 Lymphocytes Auto (Unsp spec) [#/Vol] 1.55 10*3/uL 0.83-4.51 [facility] Anion gap in Serum or Plasma Ordered By: Daniel Pena on 09-24-2024 Anion gap [Moles/Vol] 11 mmol/L 5-15 [facility] Automated blood erythrocyte countOrdered By: Daniel Pena on 09-24-2024 RBC (Bld) [#/Vol] 2.98 10*6/uL Low 4.2-5.4 [facility] Comment on above: Performed By: #### L 500.3400, L501.2450, L100.0100, L500.2500 ####[facility] [address] [place], [place], [address] Automated blood hematocrit ( percentage)Ordered By: Daniel Pena on 09-24-2024 Hematocrit (Bld) [Volume fraction] 31.2 % Low 37-47 [facility] Comment on above: Performed By: #### L 500.3400, L501.2450, L100.0100, L500.2500 ####[facility] [address] [place], [place], [id number] Automated lymphocyte count a s percentage of total leukocytesOrdered By: Daniel Pena on 09-24-2024 Lymphocytes/100 WBC Auto (Unsp spec) 42.3 % High 19-41 [facility] BUN/creatinine ratioOrdered By: Daniel Pena on 09-24-2024 Urea nitrogen/Creatinine [Mass ratio] 12.0 mg/mg 10- [facility] Basic Metabolic Profile (BMP )on 09-24-2024 BUN/CRE 12.0 RATIO Normal 10-20 [facility] Comment on above: Performed By: #### L 500.3400, L501.2450, L100.0100, L500.2500 ####[facility] [address] [place], [address] ECRCL 88.61 ml/min Normal 50-250 [facility] Comment on above: Performed By: #### L 500.3400, L501.2450, L100.0100, L500.2500 ####[facility] [address] [place], [address] GAP 11 Normal 5-15 [facility] Comment on above: Performed By: #### L 500.3400, L501.2450, L100.0100, L500.2500 ####[facility] [address] [place], [address] Potassium [Moles/Vol] 3.4 mmol/L Normal 3.3-5.1 [facility] Comment on above: Performed By: #### L 500.3400, L501.2450, L100.0100, L500.2500 ####[facility] [address] [place], [address] Basophil percentageOrdered B y: Daniel Pena on 09-24-2024 Basophils/100 WBC (Bld) 0.5 % Normal 0-1 [facility] Comment on above: Performed By: #### L 500.3400, L501.2450, L100.0100, L500.2500 ####[facility] [address] [place], [address] Bilirubin directOrdered By: Danieldusty Pena on 09-24-2024 Bilirubin.direct [Mass/Vol] 0.11 mg/dL Normal 0.00-0.30 [facility] Comment on above: Performed By: #### L 500.3400, L501.2450, L100.0100, L500.2500 ####[facility] [address] [place], [address] Bilirubin, totalOrdered By: Daniel Pena on 09-24-2024 Bilirubin [Mass/Vol] 0.20 mg/dL Normal 0.00-1.30 [facility] Comment on above: Performed By: #### L 500.3400, L501.2450, L100.0100, L500.2500 ####[facility] [address] [place], [address] CBC W/Diff, Automatedon 09-07 Absolute Lymph 1.55 X10 3/uL Normal 0.83-4.51 [facility] Comment on above: Performed By: #### L 500.3400, L501.2450, L100.0100, L500.2500 ####[facility] [address] [place], [address] Absolute Neut 1.7 X10 3/uL Low 2.0-7.7 [facility] Comment on above: Performed By: #### L 500.3400, L501.2450, L100.0100, L500.2500 ####[facility] [address] [place], [address] IG% 0.300 Normal 0.0-0.9 [facility] Comment on above: Result Comment: IG% - Immature Granulocytes (promyelocytes, myelocytes andmetamyelocytes) > 1% indicates that a LEFT SHIFT is Present. Performed By: #### L 500.3400, L501.2450, L100.0100, L500.2500 ####[facility] [address] [place], [address] Lymphocytes/100 WBC (Bld) 42.3 % High 19-41 [facility] Comment on above: Performed By: #### L 500.3400, L501.2450, L100.0100, L500.2500 ####[facility] [address] [place], [address] MCHC (RBC) [Mass/Vol] 34.6 g/dL Normal 32-36 [facility] Comment on above: Performed By: #### L 500.3400, L501.2450, L100.0100, L500.2500 ####[facility] [address] [place], [address] Nucleated RBC (Bld) [#/Vol] 0 10*3/uL Normal 0-5 [facility] Comment on above: Performed By: #### L 500.3400, L501.2450, L100.0100, L500.2500 ####[facility] [address] [place], [address] Platelet mean volume (Bld) [Entitic vol] 11.2 fL Normal 6.2-12.0 [facility] Comment on above: Performed By: #### L 500.3400, L501.2450, L100.0100, L500.2500 ####[facility] [address] [place], [address] RDW SD 49.3 fl High 35.1-43.9 [facility] Comment on above: Performed By: #### L 500.3400, L501.2450, L100.0100, L500.2500 ####[facility] [address] [place], [address] Carbon dioxide, total [Moles /volume] in Central venous bloodOrdered By: Daniel Pena on 09-24-2024 CO2 [Moles/Vol] 22.2 mmol/L Normal 21.0-32.0 [facility] Comment on above: Performed By: #### L 500.3400, L501.2450, L100.0100, L500.2500 ####[facility] [address] [place], [address] Chloride assayOrdered By: Ug o Pena on 09-24-2024 Chloride [Moles/Vol] 107 mmol/L Normal 98-108 [facility] Comment on above: Performed By: #### L 500.3400, L501.2450, L100.0100, L500.2500 ####[facility] [address] [place], [address] Emergency Department Summary on 09-24-2024 Emergency Department Summary Normal [facility] Eosinophil percentageOrdered By: Daniel Pena on 09-24-2024 Eosinophils/100 WBC (Bld) 3.3 % Normal 0-5 [facility] Comment on above: Performed By: #### L 500.3400, L501.2450, L100.0100, L500.2500 ####[facility] [address] [place], [address] Erythrocyte distribution wid th ratioOrdered By: Daniel Pena on 09-24-2024 Erythrocyte distribution width (RBC) [Ratio] 13.1 % Normal 11.6-14.6 [facility] Comment on above: Performed By: #### L 500.3400, L501.2450, L100.0100, L500.2500 ####[facility] [address] [place], [address] Erythrocyte distribution wid th standard deviationOrdered By: Daniel Pena on 09-24-2024 Erythrocyte distribution width (RBC) [Ratio] 49.3 fl High 35.1-43.9 [facility] Gallbladderon 09-24-2024 Gallbladder Normal [facility] Glomerular filtration rate ( GFR) estimation/1.73 sq m using serum, plasma, or whole bOrdered By: Daniel Pena on 09-24-2024 GFR/1.73 sq M.predicted among non-blacks MDRD (S/P/Bld) [Vol rate/Area] 83 mL/min/{1.73_m2} Normal >60 [facility] Comment on above: Result Comment: mL/m in/1.73m2 CKD-EPI Creatinine Equation (2020) Performed By: #### L 500.3400, L501.2450, L100.0100, L500.2500 ####[facility] [address] [place], [address] Hemoglobin measurementOrdere d By: Daniel Jimenezo on 09-24-2024 Hemoglobin (Bld) [Mass/Vol] 10.8 g/dL Low 12.0-15.0 [facility] Comment on above: Performed By: #### L 500.3400, L501.2450, L100.0100, L500.2500 ####[facility] [address] [place], [place], [address] Immature granulocytes/100 WB C Auto (Bld)Ordered By: Daniel Jimenezo on 09-24-2024 Immature granulocytes/100 WBC (Bld) 0.300 % 0.0-0.9 [facility] Lipaseon 09-24-2024 Lipase [Catalytic activity/Vol] 16 U/L Normal 13-75 [facility] Comment on above: Result Comment: Viktor swift note:LIPASE revised reference range effective 22.New Lipase methodology. Expected to produce lower valuesthan the previous assay method.NEW Reference Range: 13 - 75 U/L Performed By: #### L 500.3400, L501.2450, L100.0100, L500.2500 ####[facility] [address] [place], [address] Liver Profileon 09-24-2024 ALK PHOS 106 U/L High 35-104 [facility] Comment on above: Performed By: #### L 500.3400, L501.2450, L100.0100, L500.2500 ####[facility] [address] [place], [address] AST [Catalytic activity/Vol] 20 U/L Normal <=31 [facility] Comment on above: Performed By: #### L 500.3400, L501.2450, L100.0100, L500.2500 ####[facility] [address] [place], [address] T PROT 6.8 g/dL Normal 5.9-8.4 [facility] Comment on above: Performed By: #### L 500.3400, L501.2450, L100.0100, L500.2500 ####[facility] [address] [place], [address] MCV (mean corpuscular volume ) determinationOrdered By: Daniel Pena on 09-24-2024 MCV (RBC) [Entitic vol] 104.7 fL High 81-99 [facility] Comment on above: Performed By: #### L 500.3400, L501.2450, L100.0100, L500.2500 ####[facility] [address] [place], [address] Mean corpuscular hemoglobin (MCH) determinationOrdered By: Daniel Pena on 09-24-2024 MCH (RBC) [Entitic mass] 36.2 pg High 27.0-32.0 [facility] Comment on above: Performed By: #### L 500.3400, L501.2450, L100.0100, L500.2500 ####[facility] [address] [place], [address] Monocyte percentageOrdered B y: Daniel Pena on 09-24-2024 Monocytes/100 WBC (Bld) 7.7 % Normal 0-10 [facility] Comment on above: Performed By: #### L 500.3400, L501.2450, L100.0100, L500.2500 ####[facility] [address] [place], [address] Neutrophil percentageOrdered By: Danieldusty Pena on 09-24-2024 Neutrophils/100 WBC (Bld) 45.9 % Low 47-70 [facility] Comment on above: Performed By: #### L 500.3400, L501.2450, L100.0100, L500.2500 ####[facility] [address] [place], [address] No Panel InformationOrdered By: Daniel Jimenezo on 09-24-2024 20 U/L <32 [facility] Platelet countOrdered By: [facility] Pena on 09-24-2024 Platelets (Bld) [#/Vol] 164 10*3/uL Normal 150-450 [facility] Comment on above: Performed By: #### L 500.3400, L501.2450, L100.0100, L500.2500 ####[facility] [address] [place], [address] Potassium measurement (mass/ volume)Ordered By: Daniel Pena on 09-24-2024 Potassium (Unsp spec) [Mass/Vol] 3.4 mmol/L 3.3-5.1 [facility] Serum creatinine measurement (mass/volume)Ordered By: Danieldusty Jimenezo on 09-24-2024 Creatinine [Mass/Vol] 0.86 mg/dL Normal 0.70-1.20 [facility] Comment on above: Performed By: #### L 500.3400, L501.2450, L100.0100, L500.2500 ####[facility] [address] [place], [address] Serum globulin measurementOr dered By: Danieldusty Jimenezo on 09-24-2024 Globulin (S) [Mass/Vol] 2.7 g/dL Normal 2.2-4.2 [facility] Comment on above: Performed By: #### L 500.3400, L501.2450, L100.0100, L500.2500 ####[facility] [address] [place], [address] Serum glucose measurement (m ass/volume)Ordered By: Daniel Pena on 09-24-2024 Glucose [Mass/Vol] 91 mg/dL Normal 70-99 [facility] Comment on above: Performed By: #### L 500.3400, L501.2450, L100.0100, L500.2500 ####[facility] [address] [place], [address] Serum or plasma alanine bautista otransferase (ALT) measurementOrdered By: Daniel Pena on 09-24-2024 ALT [Catalytic activity/Vol] 12 U/L Normal <=34 [facility] Comment on above: Performed By: #### L 500.3400, L501.2450, L100.0100, L500.2500 ####[facility] [address] [place], [address] Serum or plasma albumin greg urement (mass/volume)Ordered By: Daniel Pena on 09-24-2024 Albumin [Mass/Vol] 4.1 g/dL Normal 3.5-5.0 [facility] Comment on above: Performed By: #### L 500.3400, L501.2450, L100.0100, L500.2500 ####[facility] [address] [place], [address] Serum or plasma alkaline micky sphatase measurementOrdered By: Daniel Pena on 09-24-2024 ALP [Catalytic activity/Vol] 106 U/L High 35-104 [facility] Serum or plasma calcium greg urement (mass/volume)Ordered By: Daniel Pena on 09-24-2024 Calcium [Mass/Vol] 8.7 mg/dL Normal 7.6-11.0 [facility] Comment on above: Performed By: #### L 500.3400, L501.2450, L100.0100, L500.2500 ####[facility] [address] [place], [address] Serum or plasma urea nitroge n measurement (mass/volume)Ordered By: Daniel Pena on 09-24-2024 Urea nitrogen [Mass/Vol] 10 mg/dL Normal 4-19 [facility] Comment on above: Performed By: #### L 500.3400, L501.2450, L100.0100, L500.2500 ####[facility] [address] [place], [address] Sodium levelOrdered By: Daneil Pena on 09-24-2024 Sodium [Moles/Vol] 140 mmol/L Normal 133-145 [facility] Comment on above: Performed By: #### L 500.3400, L501.2450, L100.0100, L500.2500 ####[facility] [address] [place], [address] Total proteinOrdered By: Daniel Pena on 09-24-2024 Protein [Mass/Vol] 6.8 g/dL 5.9-8.4 [facility] White blood cell (WBC) count Ordered By: Daniel Pena on 09-24-2024 WBC (Bld) [#/Vol] 3.7 10*3/uL Low 4.4-11.0 [facility] Comment on above: Performed By: #### L 500.3400, L501.2450, L100.0100, L500.2500 ####[facility] [address] [place], [address] Hepatobilliary Imagingon Hepatobilliary Imaging Normal [facility] .Auto Diffon 08-28-2024 Basophil, Absolute 0.0 10 3/mcL Normal 0.0-0.3 [facility] Comment on above: Performed By: #### G FR, LIP, ANEU, ADIFF, MDW, CBC, CMP #### [address] [address] Basophils/100 WBC (Bld) 0.6 % Normal 0.0-2.5 [facility] Comment on above: Performed By: #### G FR, LIP, ANEU, ADIFF, MDW, CBC, CMP #### [address] [address] Eosinophil, Absolute 0.1 10 3/mcL Normal 0.0-0.[address] [facility] Comment on above: Performed By: #### G FR, LIP, ANEU, ADIFF, MDW, CBC, CMP #### [address] [address] Eosinophils/100 WBC (Bld) 2.7 % Normal 0.0-6.0 [facility] Comment on above: Performed By: #### G FR, LIP, ANEU, ADIFF, MDW, CBC, CMP #### [address] [address] Lymphocyte, Absolute 1.8 10 3/mcL Normal 0.9-4.[address] [facility] Comment on above: Performed By: #### G FR, LIP, ANEU, ADIFF, MDW, CBC, CMP #### [address] [address] Lymphocytes/100 WBC (Bld) 40.4 % High 20.0-40.0 [facility] Comment on above: Performed By: #### G FR, LIP, ANEU, ADIFF, MDW, CBC, CMP #### [address] [address] Monocyte, Absolute 0.2 10 3/mcL Normal 0.1-1.4 [facility] Comment on above: Performed By: #### G FR, LIP, ANEU, ADIFF, MDW, CBC, CMP #### [address] [address] Monocytes/100 WBC (Bld) 4.3 % Normal 2.0-13.0 [facility] Comment on above: Performed By: #### G FR, LIP, ANEU, ADIFF, MDW, CBC, CMP #### [address] [address] Neutrophils/100 WBC (Bld) 52.0 % Normal 50.0-75.0 [facility] Comment on above: Performed By: #### G , MATTY, PRAVEEN MOORE, JULIA, CBC, CMP #### [address] [address] .GFRon 08-28-2024 Estimated Glomerular Filtration Rate 104 ml/min/1.73sqm Normal [facility] Comment on above: Result Comment: Stages of Chronic Kidney Disease (CKD) Stage Description eGFR(ml/min/1.73 sq.m.) CKD 1 Normal kidney function or >=90 normal kindney function with possible kidney damage (ex. Proteinuria) CKD 2 Kidney damage with mild loss 60-89 of kidney function CKD 3a Mild to moderate loss of kidney 45-59 function CKD 3b Moderate to severe loss of 30-44 of kindey function CKD 4 Severe loss of kidney function 15-29 CKD 5 Kidney failure <15 Note: (go live 2024) the eGFR calculation was updated to the 2020 CKD-EPI creatinine equation without a race factor to calculate the eGFR results. Performed By: #### G , MATTY, OSCAR, PRAVEEN, W, CBC, CMP #### [address] [address] .MDWon 08-28-2024 Monocyte Distribution Width 19.49 Normal 0.00-20.00 [facility] Comment on above: Result Comment: For ED adult patients suspected of sepsis, MDW<=20.0 does not rule out sepsis or risk of sepsis Performed By: #### G FR, MATTY, OSCAR, PRAVEEN, W, CBC, CMP #### [address] [address] .NEUABSon 08-28-2024 Neutrophil, Absolute 2.4 10 3/mcL Normal 2.3-8.[address] [facility] Comment on above: Performed By: #### G FR, LIP, OSCAR, PRAVEEN, W, CBC, CMP #### [address] [address] CBCon 08-28-2024 Erythrocyte distribution width (RBC) [Ratio] 13.6 % Normal 11.5-15.5 [facility] Comment on above: Performed By: #### G FR, LIP, ANEU, ADIFF, MDW, CBC, CMP #### [place] [address] Hematocrit (Bld) [Volume fraction] 35.2 % Normal 34.0-46.0 [facility] Comment on above: Performed By: #### G FR, LIP, ANEU, ADIFF, MDW, CBC, CMP #### [place] [address] Hgb 12.0 G/dL Normal 12.0-16.0 [facility] Comment on above: Performed By: #### G FR, LIP, ANEU, ADIFF, MDW, CBC, CMP #### [place] [address] MCH (RBC) [Entitic mass] 35.8 pg High 27.0-33.0 [facility] Comment on above: Performed By: #### G FR, LIP, ANEU, ADIFF, MDW, CBC, CMP #### [place] [address] MCHC 34.3 G/dL Normal 32.0-36.0 [facility] Comment on above: Performed By: #### G FR, LIP, ANEU, ADIFF, MDW, CBC, CMP #### [place] [address] MCV (RBC) [Entitic vol] 104.6 fL High 80.0-99.0 [facility] Comment on above: Performed By: #### G FR, LIP, ANEU, ADIFF, MDW, CBC, CMP #### [place] [address] Platelet 182 10 3/mcL Normal 150-450 [facility] Comment on above: Performed By: #### G FR, LIP, ANEU, ADIFF, MDW, CBC, CMP #### [place] [address] Platelet mean volume (Bld) [Entitic vol] 9.2 fL Normal 6.6-10.5 [facility] Comment on above: Performed By: #### G FR, LIP, ANEU, ADLU, MDW, CBC, CMP #### [address] [address] RBC 3.36 10 6/mcL Low 4.10-5.30 [facility] Comment on above: Performed By: #### G FR, LIP, ANEU, ADIFF, MDW, CBC, CMP #### [address] [address] WBC 4.5 10 3/mcL Normal 4.5-10.8 [facility] Comment on above: Performed By: #### G FR, LIP, ANEU, ADLU, MDW, CBC, CMP #### [address] [address] CMPon 08-28-2024 Albumin Level 3.8 G/dL Normal 3.5-5.0 [facility] Comment on above: Performed By: #### G FR, LIP, ANEU, ADIFF, MDW, CBC, CMP #### [place] [address] Albumin/Globulin [Mass ratio] 1.0 {ratio} Low 1.1-2.5 [facility] Comment on above: Performed By: #### G FR, LIP, ANEU, ADIFF, MDW, CBC, CMP #### [place] [address] ALP [Catalytic activity/Vol] 116 U/L Normal 40-135 [facility] Comment on above: Performed By: #### G FR, LIP, ANEU, ADIFF, MDW, CBC, CMP #### [place] [address] ALT [Catalytic activity/Vol] 26 U/L Normal 14-59 [facility] Comment on above: Performed By: #### G FR, LIP, ANEU, ADIFF, MDW, CBC, CMP #### [facility] [place] [address] [place], [place] [address] AST [Catalytic activity/Vol] 22 U/L Normal 10-40 [facility] Comment on above: Performed By: #### G FR, LIP, PRAVEEN MOORE, JULIA, CBC, CMP #### [address] [address] Bili Total 0.3 mg/dL Normal 0.2-1.0 [facility] Comment on above: Result Comment: Use of this assay is not recommended for patients undergoing treatment with eltrombopag due to the potential for falsely elevated results. Performed By: #### G FR, LIP, OSCAR, PRAVEEN, W, CBC, CMP #### [place] [address] BUN/Creatinine Ratio 14 ratio Normal 7-27 [facility] Comment on above: Performed By: #### G FR, LIP, PRAVEEN MOORE, W, CBC, CMP #### [address] [address] Calcium [Mass/Vol] 8.6 mg/dL Normal 8.4-10.2 [facility] Comment on above: Performed By: #### G FR, LIP, PRAVEEN MOORE MDW, CBC, CMP #### [address] [address] Chloride [Moles/Vol] 107 mmol/L Normal 98-107 [facility] Comment on above: Performed By: #### G FR, LIP, ANEUPRAVEEN, JULIA, CBC, CMP #### [address] [address] CO2 [Moles/Vol] 29 mmol/L Normal 22-29 [facility] Comment on above: Performed By: #### G FR, LIP, OSCAR, PRAVEEN, JULIA, CBC, CMP #### [address] [address] Creatinine [Mass/Vol] 0.72 mg/dL Normal 0.51-0.95 [facility] Comment on above: Performed By: #### G FR, LIP, ANEU, PRAVEEN, W, CBC, CMP #### [address] [address] Electrolyte Balance 7.0 mEq/L Normal 4.0-15.0 [facility] Comment on above: Performed By: #### G FR, LIP, ANEU, PRAVEEN, W, CBC, CMP #### [address] [address] Globulin 3.8 G/dL Normal 2.7-4.4 [facility] Comment on above: Performed By: #### G FR, LIP, ANEU, PRAVEEN, W, CBC, CMP #### [address] [address] Glucose [Mass/Vol] 95 mg/dL Normal 70-105 [facility] Comment on above: Performed By: #### G FR, LIP, ANEU, PRAVEEN, W, CBC, CMP #### [address] [address] Potassium [Moles/Vol] 3.4 mmol/L Low 3.5-5.1 [facility] Comment on above: Performed By: #### G FR, LIP, PRAVEEN MOORE, W, CBC, CMP #### [address] [address] Sodium [Moles/Vol] 143 mmol/L Normal 136-145 [facility] Comment on above: Performed By: #### G FR, LIP, ANEU, PRAVEEN, W, CBC, CMP #### [address] [address] Total Protein 7.6 G/dL Normal 6.4-8.2 [facility] Comment on above: Performed By: #### G FR, LIP, ANEU, PRAVEEN, W, CBC, CMP #### [address] [address] Urea nitrogen [Mass/Vol] 10 mg/dL Normal 7-18 [facility] Comment on above: Performed By: #### G FR, LIP, ANEU, PRAVEEN, W, CBC, CMP #### [place] [address] [place], [place] [address] CT ABD/PELVIS W/ IV CONTRAST ONLYon 08-28-2024 CT ABD/PELVIS W/ IV CONTRAST ONLY ORIGINAL EXAMINATION: CT OF THE ABDOMEN AND PELVIS WITH CONTRAST08/28/2024 6:52 pm TECHNIQUE: CT of the abdomen and pelvis was performed with the administration of intravenous contrast. Multiplanar reformatted images are provided for review. Automated exposure control, iterative reconstruction, and/or weight based adjustment of the mA/kV was utilized to reduce the radiation dose to as low as reasonably achievable. COMPARISON: CT abdomen pelvis 01/09/2024, 01/02/2023 HISTORY: ORDERING SYSTEM PROVIDED HISTORY: Reason for Exam: pain left upper quadrant pain 4 days, vomiting history of cervical/uterine cancer in 2007 FINDINGS: The liver, spleen, adrenal glands, and pancreas are within normal limits. Gallbladder is unremarkable. The kidneys are unremarkable. Urinary bladder is unremarkable. The large and small bowel demonstrate no obstruction. The appendix is surgically absent. No free intraperitoneal fluid or gas is identified. The aorta is normal in caliber. There is no lymphadenopathy. Prior mesenteric lymph nodes are no longer enlarged. Uterus is surgically absent. The abdominal wall is unremarkable. Metallic hardware at L5-S1 is intact. Partially visualized neurostimulator lead and pelvic stimulator lead are unremarkable. IMPRESSION: No acute abdominopelvic abnormality. I have personally reviewed the images of this examination and agree with the resident's findings and interpretation. Interpreted by: Jay Watkins Preliminary Report By: Donte Gutierrez Electronically signed By Jay Watkins Dictated Date: 08/28/2024 6:54:27 PM Prelim Date: 08/28/2024 7:01:32 PM Sign Date: 08/28/2024 7:09:49 PM Ordering Provider: BRIAN ROQUE Normal [facility] LIPon 08-28-2024 Lipase Level 26 U/L Normal 16-77 [facility] Comment on above: Performed By: #### G MATTY ATKINS ANEU, ADIFF, W, CBC, CMP #### Jose Armando [address] [place], [place] [address] UAon 08-28-2024 Color (U) Yellow Normal [facility] Comment on above: Performed By: #### G FR, LIP, PRAVEEN MOORE MDW, CBC, CMP #### [address] [address] Glucose (U) [Mass/Vol] Negative Normal Negative [facility] Comment on above: Performed By: #### G FR, LIP, PRAVEEN MOORE, W, CBC, CMP #### [address] [address] Ketones Ql (U) Negative Normal Negative [facility] Comment on above: Performed By: #### G FR, LIP, PRAVEEN MOORE, W, CBC, CMP #### [address] [address] UA Appear Clear Normal Clear [facility] Comment on above: Performed By: #### G FR, LIP, PRAVEEN MOORE, W, CBC, CMP #### [address] [address] UA Blood Negative Normal Negative [facility] Comment on above: Performed By: #### G FR, LIP, OSCAR, PRAVEEN, W, CBC, CMP #### [address] [address] UA Leuk Est Negative Normal Negative [facility] Comment on above: Performed By: #### G FR, LIP, PRAVEEN MOORE MDW, CBC, CMP #### [address] [address] UA Nitrite Negative Normal Negative [facility] Comment on above: Performed By: #### G FR, LIP, ANEU, PRAVEEN, W, CBC, CMP #### [address] [address] UA pH 6.0 Normal 5.0 - 8.0 [facility] Comment on above: Performed By: #### G FR, LIP, ANEUPRAVEEN, W, CBC, CMP #### [address] [address] UA Protein Negative Normal Negative [facility] Comment on above: Performed By: #### G FR, LIP, PRAVEEN MOORE MDW, CBC, CMP #### [address] [place], [place] [address] UA Spec Grav 1.010 Abnormal 1.015-1.025 [facility] Comment on above: Performed By: #### G FR, LIP, OSCAR, PRAVEEN, JULIA, CBC, CMP #### [id number] [place], [place] [address] UA Specimen Type Clean Catch Normal [facility] Comment on above: Performed By: #### G FR, LIP, OSCAR, PRAVEEN, JULIA, CBC, CMP #### [address] [place], [place] [address] UA Urobilinogen 0.2 E.U./dL Normal 0.2-1.0 [facility] Comment on above: Performed By: #### G FR, LIP, OSCAR, PRAVEEN, W, CBC, CMP #### [address] [place], [place] [address] Urobilinogen (U) [Mass/Vol] Negative Normal Negative [facility] Comment on above: Performed By: #### G FR, LIP, OSCAR, PRAVEEN, JULIA, CBC, CMP #### [address] [address] [address] Chest, Abd, Pelvis WO Con ton 08-27-2024 CT Chest, Abd, Pelvis WO Cont [facility] 12 Lead EKGon 08-22-2024 12 Lead EKG Normal [facility] EGD Reporton 08-22-2024 EGD Report Normal [facility] MR/POSTOP.ANEon 08-22-2024 MR/POSTOP.ANE [facility] MR/[id number] 08-22-2024 MR/POSTOPAN2 [facility] Surgery Specimen Level Primo 08-22-2024 Surgery Specimen Level IV [facility] Comment on above: Performed By: #### P SUIV ####[facility] [address] [place], [address] MR/PAT.ANEon 08-21-2024 MR/PAT.ANE [facility] MR/PAT.ANE Normal [facility] Gastroenterology Visit Repor ton 07-09-2024 Gastroenterology Visit Report Normal [facility] PROLACTIN 4465on 04-30-2024 PROLACTIN 3.3 ng/mL Low 4.8-33.4 [facility] Comment on above: Order Comment: DR. Dusty STOLL ORDERED TSH, FT4 AND DANA NIEVES ORDERED TSH Result Comment: Perf ormed at: [facility] [place] [id number] Director: David Zafar PhD, Phone: [phone] Performed By: #### L 501.7406, L585.0403, Z0427.1988 ####[facility] [address] [place], [place], [id number] Urine Cultureon 04-30-2024 URC Mixed Gram Positive Organisms [place] Count 11,000-25,000 MIXC Mixed contaminants. Submit a new specimen if indicated. Normal [facility] Comment on above: Performed By: #### M 100.2200 ####[facility] [address] [place], [place], [id number] Absolute lymphocyte countOrd ered By: Gary Diaz on 04-28-2024 Lymphocytes Auto (Unsp spec) [#/Vol] 1.66 10*3/uL 0.83-4.51 [facility] Automated lymphocyte count a s percentage of total leukocytesOrdered By: Gary Diaz on 04-28-2024 Lymphocytes/100 WBC Auto (Unsp spec) 40.1 % - [facility] Basophil percentageOrdered B y: Gary Diaz on 04-28-2024 Basophils/100 WBC (Bld) 0.5 % 0-1 [facility] Bilirubin, totalOrdered By: Gary Diaz on 04-28-2024 Bilirubin [Mass/Vol] 0.20 mg/dL 0.20-1.00 [facility] CBC W/Diff, Automatedon 04-10 Absolute Lymph 1.66 X10 3/uL Normal 0.83-4.51 [facility] Comment on above: Order Comment: DR. Rod GILLESPIE ORDERED CBCD, CMP, LDH, ESR AND CRPKATELYN GIO ORDERED CMP, LIPID, CBCD, VITD Performed By: #### L 506.1000, L500.4050, L101.9900, L504.2610, L100.0100, L501.6710, L500.4100 ####[facility] [address] [place], [address] Absolute Neut 2.0 X10 3/uL Normal 2.0-7.7 [facility] Comment on above: Order Comment: DR. Rod GILLESPIE ORDERED CBCD, CMP, LDH, ESR AND CRPKATELYN GIO ORDERED CMP, LIPID, CBCD, VITD Performed By: #### L 506.1000, L500.4050, L101.9900, L504.2610, L100.0100, L501.6710, L500.4100 ####[facility] [address] [place], [address] Basophils/100 WBC (Bld) 0.5 % Normal 0-1 [facility] Comment on above: Order Comment: DR. Rod GILLESPIE ORDERED CBCD, CMP, LDH, ESR AND CRPKATELYN GIO ORDERED CMP, LIPID, CBCD, VITD Performed By: #### L 506.1000, L500.4050, L101.9900, L504.2610, L100.0100, L501.6710, L500.4100 ####[facility] [address] [place], [address] Eosinophils/100 WBC (Bld) 3.4 % Normal 0-5 [facility] Comment on above: Order Comment: DR. Rod GILLESPIE ORDERED CBCD, CMP, LDH, ESR AND CRPKATELYN GIO ORDERED CMP, LIPID, CBCD, VITD Performed By: #### L 506.1000, L500.4050, L101.9900, L504.2610, L100.0100, L501.6710, L500.4100 ####[facility] [address] [place], [address] Erythrocyte distribution width (RBC) [Ratio] 13.1 % Normal 11.6-14.6 [facility] Comment on above: Order Comment: DR. Rod GILLESPIE ORDERED CBCD, CMP, LDH, ESR AND CRPKATELYN GIO ORDERED CMP, LIPID, CBCD, VITD Performed By: #### L 506.1000, L500.4050, L101.9900, L504.2610, L100.0100, L501.6710, L500.4100 ####[facility] [address] [place], [address] Hematocrit (Bld) [Volume fraction] 36.6 % Low 37-47 [facility] Comment on above: Order Comment: DR. Rod GILLESPIE ORDERED CBCD, CMP, LDH, ESR AND CRPKATELYN GIO ORDERED CMP, LIPID, CBCD, VITD Performed By: #### L 506.1000, L500.4050, L101.9900, L504.2610, L100.0100, L501.6710, L500.4100 ####[facility] [address] [place], [address] Hemoglobin (Bld) [Mass/Vol] 12.0 g/dL Normal 12.0-15.0 [facility] Comment on above: Order Comment: DR. Rod GILLESPIE ORDERED CBCD, CMP, LDH, ESR AND CRPKATELYN GIO ORDERED CMP, LIPID, CBCD, VITD Performed By: #### L 506.1000, L500.4050, L101.9900, L504.2610, L100.0100, L501.6710, L500.4100 ####[facility] [address] [place], [address] IG% 0.200 Normal 0.0-0.9 [facility] Comment on above: Order Comment: DR. Rod GILLESPIE ORDERED CBCD, CMP, LDH, ESR AND CRPKATCONSTANZA NIEVES ORDERED CMP, LIPID, CBCD, VITD Result Comment: IG% - Immature Granulocytes (promyelocytes, myelocytes andmetamyelocytes) > 1% indicates that a LEFT SHIFT is Present. Performed By: #### L 506.1000, L500.4050, L101.9900, L504.2610, L100.0100, L501.6710, L500.4100 ####[facility] [address] [place], [address] Lymphocytes/100 WBC (Bld) 40.1 % Normal 19-41 [facility] Comment on above: Order Comment: DR. Rod GILLESPIE ORDERED CBCD, CMP, LDH, ESR AND CRPKATELYN GIO ORDERED CMP, LIPID, CBCD, VITD Performed By: #### L 506.1000, L500.4050, L101.9900, L504.2610, L100.0100, L501.6710, L500.4100 ####[facility] [address] [place], [address] MCH (RBC) [Entitic mass] 35.3 pg High 27.0-32.0 [facility] Comment on above: Order Comment: DR. Rod GILLESPIE ORDERED CBCD, CMP, LDH, ESR AND CRPALIZA NIEVES ORDERED CMP, LIPID, CBCD, VITD Performed By: #### L 506.1000, L500.4050, L101.9900, L504.2610, L100.0100, L501.6710, L500.4100 ####[facility] [address] [place], [address] MCHC (RBC) [Mass/Vol] 32.8 g/dL Normal 32-36 [facility] Comment on above: Order Comment: DR. Rod GILLESPIE ORDERED CBCD, CMP, LDH, ESR AND CRPALIZA NIEVES ORDERED CMP, LIPID, CBCD, VITD Performed By: #### L 506.1000, L500.4050, L101.9900, L504.2610, L100.0100, L501.6710, L500.4100 ####[facility] [address] [place], [address] MCV (RBC) [Entitic vol] 107.6 fL High 81-99 [facility] Comment on above: Order Comment: DR. Rod GILLESPIE ORDERED CBCD, CMP, LDH, ESR AND CRPKATELYN GIO ORDERED CMP, LIPID, CBCD, VITD Performed By: #### L 506.1000, L500.4050, L101.9900, L504.2610, L100.0100, L501.6710, L500.4100 ####[facility] [address] [place], [address] Monocytes/100 WBC (Bld) 7.7 % Normal 0-10 [facility] Comment on above: Order Comment: DR. Rod GILLESPIE ORDERED CBCD, CMP, LDH, ESR AND CRPKATELYN GIO ORDERED CMP, LIPID, CBCD, VITD Performed By: #### L 506.1000, L500.4050, L101.9900, L504.2610, L100.0100, L501.6710, L500.4100 ####[facility] [address] [place], [address] Neutrophils/100 WBC (Bld) 48.1 % Normal 47-70 [facility] Comment on above: Order Comment: DR. Rod GILLESPIE ORDERED CBCD, CMP, LDH, ESR AND CRPKATELYN GIO ORDERED CMP, LIPID, CBCD, VITD Performed By: #### L 506.1000, L500.4050, L101.9900, L504.2610, L100.0100, L501.6710, L500.4100 ####[facility] [address] [place], [address] Nucleated RBC (Bld) [#/Vol] 0 10*3/uL Normal 0-5 [facility] Comment on above: Order Comment: DR. Rod GILLESPIE ORDERED CBCD, CMP, LDH, ESR AND CRPKATELYN GIO ORDERED CMP, LIPID, CBCD, VITD Performed By: #### L 506.1000, L500.4050, L101.9900, L504.2610, L100.0100, L501.6710, L500.4100 ####[facility] [address] [place], [address] Platelet mean volume (Bld) [Entitic vol] 11.6 fL Normal 6.2-12.0 [facility] Comment on above: Order Comment: DR. Rod GILLESPIE ORDERED CBCD, CMP, LDH, ESR AND CRPKATELYN GIO ORDERED CMP, LIPID, CBCD, VITD Performed By: #### L 506.1000, L500.4050, L101.9900, L504.2610, L100.0100, L501.6710, L500.4100 ####[facility] [address] [place], [address] Platelets (Bld) [#/Vol] 178 10*3/uL Normal 150-450 [facility] Comment on above: Order Comment: DR. Rod GILLESPIE ORDERED CBCD, CMP, LDH, ESR AND CRPKATELYCarla NIEVES ORDERED CMP, LIPID, CBCD, VITD Performed By: #### L 506.1000, L500.4050, L101.9900, L504.2610, L100.0100, L501.6710, L500.4100 ####[facility] [address] [place], [address] RBC (Bld) [#/Vol] 3.40 10*6/uL Low 4.2-5.4 [facility] Comment on above: Order Comment: DR. Rod GILLESPIE ORDERED CBCD, CMP, LDH, ESR AND CRPKATCONSTANZA NIEVES ORDERED CMP, LIPID, CBCD, VITD Performed By: #### L 506.1000, L500.4050, L101.9900, L504.2610, L100.0100, L501.6710, L500.4100 ####[facility] [address] [place], [address] RDW SD 51.5 fl High 35.1-43.9 [facility] Comment on above: Order Comment: DR. Rod GILLESPIE ORDERED CBCD, CMP, LDH, ESR AND CRPKATCONSTANZA BHATTGER ORDERED CMP, LIPID, CBCD, VITD Performed By: #### L 506.1000, L500.4050, L101.9900, L504.2610, L100.0100, L501.6710, L500.4100 ####[facility] [address] [place], [place], [phone] WBC (Bld) [#/Vol] 4.1 10*3/uL Low 4.4-11.0 [facility] Comment on above: Order Comment: DR. Rod GILLESPIE ORDERED CBCD, CMP, LDH, ESR AND CRPKATKIMBERN GIO ORDERED CMP, LIPID, CBCD, VITD Performed By: #### L 506.1000, L500.4050, L101.9900, L504.2610, L100.0100, L501.6710, L500.4100 ####[facility] [address] [place], [place], [phone]) CRPon 04-28-2024 C-REACTIVE PROT < 2.90 Normal 0.0-3.0 [facility] Comment on above: Order Comment: DR. Rod GILLESPIE ORDERED CBCD, CMP, LDH, ESR AND CRPALIZA NIEVES ORDERED CMP, LIPID, CBCD, VITD1 Result Comment: C-Re active Protein (CRP) provides useful information for thediagnosis, therapy and monitoring of inflammatory processesand associated diseases. For the evaluation of Relative Riskfor Cardiovascular Disease, a High Sensitivity CRP (HSCRP)should be ordered. Performed By: #### L 506.1000, L500.4050, L101.9900, L504.2610, L100.0100, L501.6710, L500.4100 ####[facility] [address] [place], [address] Carbon dioxide measurementOr dered By: Gary Diaz on 04-28-2024 CO2 [Moles/Vol] 25.0 mmol/L 21.0-32.0 [facility] Chloride measurementOrdered By: Gary Diaz on 04-28-2024 Chloride [Moles/Vol] 111 mmol/L High 98-107 [facility] Comprehensive Metabolic Prof ilon 04-28-2024 Albumin [Mass/Vol] 3.8 g/dL Normal 3.2-5.0 [facility] Comment on above: Order Comment: DR. Rod GILLESPIE ORDERED CBCD, CMP, LDH, ESR AND EDGAR NIEVES ORDERED CMP, LIPID, CBCD, VITD1 Performed By: #### L 506.1000, L500.4050, L101.9900, L504.2610, L100.0100, L501.6710, L500.4100 ####[facility] [address] [place], [address] Albumin/Globulin [Mass ratio] 1.0 {ratio} Normal 0.9-2.4 [facility] Comment on above: Order Comment: DR. Rod GILLESPIE ORDERED CBCD, CMP, LDH, ESR AND EDGAR NIEVES ORDERED CMP, LIPID, CBCD, VITD1 Performed By: #### L 506.1000, L500.4050, L101.9900, L504.2610, L100.0100, L501.6710, L500.4100 ####[facility] [address] [place], [address] ALK P 125 U/L High 45-117 [facility] Comment on above: Order Comment: DR. Rod GILLESPIE ORDERED CBCD, CMP, LDH, ESR AND EDGAR NIEVES ORDERED CMP, LIPID, CBCD, VITD1 Performed By: #### L 506.1000, L500.4050, L101.9900, L504.2610, L100.0100, L501.6710, L500.4100 ####[facility] [address] [place], [address] ALT [Catalytic activity/Vol] 20 U/L Normal 13-56 [facility] Comment on above: Order Comment: DR. Rod GILLESPIE ORDERED CBCD, CMP, LDH, ESR AND CRPKATELYN GIO ORDERED CMP, LIPID, CBCD, VITD1 Performed By: #### L 506.1000, L500.4050, L101.9900, L504.2610, L100.0100, L501.6710, L500.4100 ####[facility] [address] [place], [address] AST [Catalytic activity/Vol] 19 U/L Normal 15-37 [facility] Comment on above: Order Comment: DR. Rod GILLESPIE ORDERED CBCD, CMP, LDH, ESR AND CRPALIZA NIEVES ORDERED CMP, LIPID, CBCD, VITD1 Performed By: #### L 506.1000, L500.4050, L101.9900, L504.2610, L100.0100, L501.6710, L500.4100 ####[facility] [address] [place], [address] Bilirubin [Mass/Vol] 0.20 mg/dL Normal 0.20-1.00 [facility] Comment on above: Order Comment: DR. Rod GILLESPIE ORDERED CBCD, CMP, LDH, ESR AND CRPKATKIMBERN GIO ORDERED CMP, LIPID, CBCD, VITD1 Result Comment: For patients on eltrombopag therapy, use of Dimension [place] TBIL is not recommended. Performed By: #### L 506.1000, L500.4050, L101.9900, L504.2610, L100.0100, L501.6710, L500.4100 ####[facility] [address] [place], [address] BUN/CRE 14.2 RATIO Normal 10-20 [facility] Comment on above: Order Comment: DR. Rod GILLESPIE ORDERED CBCD, CMP, LDH, ESR AND CRPKATELYN GIO ORDERED CMP, LIPID, CBCD, VITD1 Performed By: #### L 506.1000, L500.4050, L101.9900, L504.2610, L100.0100, L501.6710, L500.4100 ####[facility] [address] [place], [address] CA,Total 9.3 mg/dL Normal 8.5-10.1 [facility] Comment on above: Order Comment: DR. Rod GILLESPIE ORDERED CBCD, CMP, LDH, ESR AND CRPKATELYN GIO ORDERED CMP, LIPID, CBCD, VITD1 Performed By: #### L 506.1000, L500.4050, L101.9900, L504.2610, L100.0100, L501.6710, L500.4100 ####[facility] [address] [place], [address] Chloride [Moles/Vol] 111 mmol/L High 98-107 [facility] Comment on above: Order Comment: DR. Rod GILLESPIE ORDERED CBCD, CMP, LDH, ESR AND CRPKATELYN GIO ORDERED CMP, LIPID, CBCD, VITD1 Performed By: #### L 506.1000, L500.4050, L101.9900, L504.2610, L100.0100, L501.6710, L500.4100 ####[facility] [address] [place], [address] CO2 [Moles/Vol] 25.0 mmol/L Normal 21.0-32.0 [facility] Comment on above: Order Comment: DR. Rod GILLESPIE ORDERED CBCD, CMP, LDH, ESR AND CRPKATELYN GIO ORDERED CMP, LIPID, CBCD, VITD1 Performed By: #### L 506.1000, L500.4050, L101.9900, L504.2610, L100.0100, L501.6710, L500.4100 ####[facility] [address] [place], [address] Creatinine [Mass/Vol] 0.77 mg/dL Normal 0.55-1.02 [facility] Comment on above: Order Comment: DR. Rod GILLESPIE ORDERED CBCD, CMP, LDH, ESR AND CRPKATELYN GIO ORDERED CMP, LIPID, CBCD, VITD1 Result Comment: The validity of the calculated GFR GFRAA in patients over70 years has not been determined. Clinical correlation isessential. Performed By: #### L 506.1000, L500.4050, L101.9900, L504.2610, L100.0100, L501.6710, L500.4100 ####[facility] [address] [place], [address] EST GFR - AA 103 mL/min Normal >60 [facility] Comment on above: Order Comment: DR. Rod GILLESPIE ORDERED CBCD, CMP, LDH, ESR AND CRPKATELYN GIO ORDERED CMP, LIPID, CBCD, VITD1 Result Comment: Afri can Guyanese GFR Calc Performed By: #### L 506.1000, L500.4050, L101.9900, L504.2610, L100.0100, L501.6710, L500.4100 ####[facility] [address] [place], [address] GAP 6 Normal 5-15 [facility] Comment on above: Order Comment: DR. Rod GILLESPIE ORDERED CBCD, CMP, LDH, ESR AND CRPKATELYN GIO ORDERED CMP, LIPID, CBCD, VITD1 Performed By: #### L 506.1000, L500.4050, L101.9900, L504.2610, L100.0100, L501.6710, L500.4100 ####[facility] [address] [place], [address] GFR/1.73 sq M.predicted among non-blacks MDRD (S/P/Bld) [Vol rate/Area] 85 mL/min/{1.73_m2} Normal >60 [facility] Comment on above: Order Comment: DR. Rod GILLESPIE ORDERED CBCD, CMP, LDH, ESR AND CRPKATELYN GIO ORDERED CMP, LIPID, CBCD, VITD1 Result Comment: Non- GFR Calc Performed By: #### L 506.1000, L500.4050, L101.9900, L504.2610, L100.0100, L501.6710, L500.4100 ####[facility] [address] [place], [address] Globulin (S) [Mass/Vol] 4.0 g/dL Normal 2.2-4.2 [facility] Comment on above: Order Comment: DR. Rod GILLESPIE ORDERED CBCD, CMP, LDH, ESR AND CRPKATELYCarla NIEVES ORDERED CMP, LIPID, CBCD, VITD1 Performed By: #### L 506.1000, L500.4050, L101.9900, L504.2610, L100.0100, L501.6710, L500.4100 ####[facility] [address] [place], [address] Glucose [Mass/Vol] 96 mg/dL Normal 74-106 [facility] Comment on above: Order Comment: DR. Rod GILLESPIE ORDERED CBCD, CMP, LDH, ESR AND CRPKATELYN GIO ORDERED CMP, LIPID, CBCD, VITD1 Performed By: #### L 506.1000, L500.4050, L101.9900, L504.2610, L100.0100, L501.6710, L500.4100 ####[facility] [address] [place], [address] Potassium [Moles/Vol] 3.7 mmol/L Normal 3.5-5.1 [facility] Comment on above: Order Comment: DR. Rod GILLESPIE ORDERED CBCD, CMP, LDH, ESR AND CRPKATELYN GIO ORDERED CMP, LIPID, CBCD, VITD1 Performed By: #### L 506.1000, L500.4050, L101.9900, L504.2610, L100.0100, L501.6710, L500.4100 ####[facility] [address] [place], [address] Sodium [Moles/Vol] 142 mmol/L Normal 136-145 [facility] Comment on above: Order Comment: DR. Rod GILLESPIE ORDERED CBCD, CMP, LDH, ESR AND CRPKATCONSTANZA NIEVES ORDERED CMP, LIPID, CBCD, VITD1 Performed By: #### L 506.1000, L500.4050, L101.9900, L504.2610, L100.0100, L501.6710, L500.4100 ####[facility] [address] [place], [address] T PROT 7.8 g/dL Normal 6.4-8.2 [facility] Comment on above: Order Comment: DR. Rod GILLESPIE ORDERED CBCD, CMP, LDH, ESR AND EDGAR NIEVES ORDERED CMP, LIPID, CBCD, VITD1 Performed By: #### L 506.1000, L500.4050, L101.9900, L504.2610, L100.0100, L501.6710, L500.4100 ####[facility] [address] [place], [address] Urea nitrogen [Mass/Vol] 11 mg/dL Normal 7-18 [facility] Comment on above: Order Comment: DR. Rod GILLESPIE ORDERED CBCD, CMP, LDH, ESR AND CRPKATELYN GIO ORDERED CMP, LIPID, CBCD, VITD1 Performed By: #### L 506.1000, L500.4050, L101.9900, L504.2610, L100.0100, L501.6710, L500.4100 ####[facility] [address] [place], [place], [id number] Eosinophil percentageOrdered By: Gary Diaz on 04-28-2024 Eosinophils/100 WBC (Bld) 3.4 % 0-5 [facility] Erythrocyte Sed Rateon 04-28 SED RATE 7 mm/hr Normal 0-30 [facility] Comment on above: Order Comment: DR. Rod GILLESPIE ORDERED CBCD, CMP, LDH, ESR AND EDGAR NIEVES ORDERED CMP, LIPID, CBCD, VITD Performed By: #### L 506.1000, L500.4050, L101.9900, L504.2610, L100.0100, L501.6710, L500.4100 ####[facility] [id number] [place], [address] Erythrocyte distribution wid th ratioOrdered By: Gary Diaz on 04-28-2024 Erythrocyte distribution width (RBC) [Ratio] 13.1 % 11.6-14.6 [facility] Erythrocyte distribution wid th standard deviationOrdered By: Gary Diaz on 04-28-2024 Erythrocyte distribution width (RBC) [Ratio] 51.5 fl High 35.1-43.9 [facility] Erythrocyte sedimentation ra teOrdered By: Gary Diaz on 04-28-2024 ESR (Bld) [Velocity] 7 mm/h 0-30 [facility] Glomerular filtration rate ( GFR) estimationOrdered By: Gary Diaz on 04-28-2024 GFR/1.73 sq M.predicted among non-blacks MDRD (S/P/Bld) [Vol rate/Area] 85 mL/min/{1.73_m2} >60 [facility] Glucose measurementOrdered B y: Gary Diaz on 04-28-2024 Glucose [Mass/Vol] 96 mg/dL 74-106 [facility] Hematocrit Auto (Bld) [Volum e fraction]Ordered By: Gary Diaz on 04-28-2024 Hematocrit (Bld) [Volume fraction] 36.6 % Low 37-47 [facility] Hemoglobin measurementOrdere d By: Gary Diaz on 04-28-2024 Hemoglobin (Bld) [Mass/Vol] 12.0 g/dL 12.0-15.0 [facility] High density lipoprotein (HD L) measurementOrdered By: Gary Diaz on 04-28-2024 High density lipoprotein (HDL) measurement 61 mg/dL >40 [facility] Immature granulocytes/100 WB C Auto (Bld)Ordered By: Gary Diaz on 04-28-2024 Immature granulocytes/100 WBC (Bld) 0.200 % 0.0-0.9 [facility] Internal Medicine Office Vis iton 04-28-2024 Internal Medicine Office Visit Normal [facility] LDHon 04-28-2024 LDH 238 U/L Normal 84-246 [facility] Comment on above: Order Comment: DR. Rod GILLESPIE ORDERED CBCD, CMP, LDH, ESR AND CRPKATELYN GIO ORDERED CMP, LIPID, CBCD, VITD1 Performed By: #### L 506.1000, L500.4050, L101.9900, L504.2610, L100.0100, L501.6710, L500.4100 ####[facility] [address] [place], [address] Lipid Profileon 04-28-2024 Cholesterol [Mass/Vol] 144 mg/dL Normal 200 [facility] Comment on above: Order Comment: DR. Rod GILLESPIE ORDERED CBCD, CMP, LDH, ESR AND CRPKATELYN GIO ORDERED CMP, LIPID, CBCD, VITD1 Result Comment: <200 mg/dL Desirable 200-240 mg/dL Borderline >240 mg/dL High Risk Performed By: #### L 506.1000, L500.4050, L101.9900, L504.2610, L100.0100, L501.6710, L500.4100 ####[facility] [address] [place], [address] Cholesterol in HDL [Mass/Vol] 61 mg/dL Normal [facility] Comment on above: Order Comment: DR. Rod GILLESPIE ORDERED CBCD, CMP, LDH, ESR AND CRPKATELYN GIO ORDERED CMP, LIPID, CBCD, VITD1 Result Comment: The drugs N-Acetylcysteine and Metamizole may falselydepress this assay. Reference Range HDL <40 mg/dL Low HDL Cholesterol HDL >or= 60 mg/dL High HDL Cholesterol Performed By: #### L 506.1000, L500.4050, L101.9900, L504.2610, L100.0100, L501.6710, L500.4100 ####[facility] [address] [place], [address] Cholesterol in LDL [Mass/Vol] 58 mg/dL Normal 0-130 [facility] Comment on above: Order Comment: DR. Rod GILLESPIE ORDERED CBCD, CMP, LDH, ESR AND CRPKATELYN GIO ORDERED CMP, LIPID, CBCD, VITD1 Performed By: #### L 506.1000, L500.4050, L101.9900, L504.2610, L100.0100, L501.6710, L500.4100 ####[facility] [address] [place], [address] Cholesterol in VLDL [Mass/Vol] 25 mg/dL Normal 5-40 [facility] Comment on above: Order Comment: DR. Rod GILLESPIE ORDERED CBCD, CMP, LDH, ESR AND CRPKATCONSTANZA NIEVES ORDERED CMP, LIPID, CBCD, VITD1 Performed By: #### L 506.1000, L500.4050, L101.9900, L504.2610, L100.0100, L501.6710, L500.4100 ####[facility] [address] [place], [address] Triglyceride [Mass/Vol] 127 mg/dL Normal [facility] Comment on above: Order Comment: DR. Rod GILLESPIE ORDERED CBCD, CMP, LDH, ESR AND CRPALIZA NIEVES ORDERED CMP, LIPID, CBCD, VITD1 Result Comment: The drugs N-Acetylcysteine and Metamizole may falselydepress this assay.Serum Triglycerides Reference Interval Normal <150 mg/dL Borderline high 150 - 199 mg/dL High 200 - 499 mg/dL Very High > or = 500 mg/dL Performed By: #### L 506.1000, L500.4050, L101.9900, L504.2610, L100.0100, L501.6710, L500.4100 ####[facility] [address] [place], [address] Low density lipoprotein (LDL ) cholesterol measurementOrdered By: Gary Diaz on 04-28-2024 Low density lipoprotein (LDL) cholesterol measurement 58 mg/dL 0-130 [facility] MCV (mean corpuscular volume ) determinationOrdered By: Gary Diaz on 04-28-2024 MCV (RBC) [Entitic vol] 107.6 fL High 81-99 [facility] Mean corpuscular hemoglobin (MCH) determinationOrdered By: Gary Diaz on 04-28-2024 MCH (RBC) [Entitic mass] 35.3 pg High 27.0-32.0 [facility] Monocyte percentageOrdered B y: Gayr Diaz on 04-28-2024 Monocytes/100 WBC (Bld) 7.7 % 0-10 [facility] Neutrophil percentageOrdered By: Gary Diaz on 04-28-2024 Neutrophils/100 WBC (Bld) 48.1 % 47-70 [facility] No Panel InformationOrdered By: Gary Diaz on 04-28-2024 19 U/L 15-37 [facility] Platelet countOrdered By: Ra brook Diaz on 04-28-2024 Platelets (Bld) [#/Vol] 178 10*3/uL 150-450 [facility] Potassium measurementOrdered By: Gary Diaz on 04-28-2024 Potassium [Moles/Vol] 3.7 mmol/L 3.5-5.1 [facility] RBC Auto (Bld) [#/Vol]Ordere d By: Gary Diaz on 04-28-2024 RBC (Bld) [#/Vol] 3.40 10*6/uL Low 4.2-5.4 [facility] Serum globulin measurementOr dered By: Gary Diaz on 04-28-2024 Globulin (S) [Mass/Vol] 4.0 g/dL 2.2-4.2 [facility] Serum or plasma alanine bautista otransferase (ALT) measurementOrdered By: Gary Diaz on 04-28-2024 ALT [Catalytic activity/Vol] 20 U/L 13-56 [facility] Serum or plasma albumin greg urement (mass/volume)Ordered By: Gary Diaz on 04-28-2024 Albumin [Mass/Vol] 3.8 g/dL 3.2-5.0 [facility] Serum or plasma alkaline micky sphatase measurementOrdered By: Gary Diaz on 04-28-2024 ALP [Catalytic activity/Vol] 125 U/L High 45-117 [facility] Serum or plasma calcium greg urement (mass/volume)Ordered By: Gary Diaz on 04-28-2024 Calcium [Mass/Vol] 9.3 mg/dL 8.5-10.1 [facility] Serum or plasma cholesterol measurement (mass/volume)Ordered By: Gary Diaz on 04-28-2024 Cholesterol [Mass/Vol] 144 mg/dL <200 [facility] Serum or plasma creatinine m easurement (mass/volume)Ordered By: Gary Diaz on 04-28-2024 Creatinine [Mass/Vol] 0.77 mg/dL 0.55-1.02 [facility] Serum or plasma prolactin me asurement (mass/volume)Ordered By: Katherine Munoz on 04-28-2024 Prolactin [Mass/Vol] 3.3 ng/mL Low 4.8-33.4 [facility] Serum or plasma thyroid stim ulating hormone (TSH) measurement (units/volume)Ordered By: Katherine Munoz on 04-28-2024 TSH Qn 1.050 uIU/mL 0.358-3.740 [facility] Serum or plasma urea nitroge n measurement (mass/volume)Ordered By: Gary Diaz on 04-28-2024 Urea nitrogen [Mass/Vol] 11 mg/dL 7-18 [facility] Sodium levelOrdered By: Tylor Lopez on 04-28-2024 Sodium [Moles/Vol] 142 mmol/L 136-145 [facility] T4 Free Directon 04-28-2024 T4 FREE DIRECT 0.55 ng/dL Low 0.76-1.46 [facility] Comment on above: Order Comment: DR. Dusty STOLL ORDERED TSH, FT4 AND DANA NIEVES ORDERED TSH Performed By: #### L 501.9520, L506.0400, L3100.5400 ####[facility] [address] [place], [place], [id number] Thyroid Stim Hormone (TSH)on 04-28-2024 TSH 1.050 uIU/mL Normal 0.358-3.740 [facility] Comment on above: Order Comment: DR. Dusty STOLL ORDERED TSH, FT4 AND DANA NIEVES ORDERED TSH Performed By: #### L 501.9520, L506.0400, L3100.5400 ####[facility] [address] [place], [place], [id number] Total proteinOrdered By: Raul Diaz on 04-28-2024 Protein [Mass/Vol] 7.8 g/dL 6.4-8.2 [facility] Urine cultureOrdered By: Raul Diaz on 04-28-2024 Bacteria identified Cx Nom (U) Positive Abnormal [facility] Very low density lipoprotein (VLDL) cholesterol measurementOrdered By: Gary Diaz on 04-28-2024 Very low density lipoprotein (VLDL) cholesterol measurement 25 mg/dL 5-40 [facility] Vitamin D,25 Hydroxyon 04-28 Vitamin D 25-OH 63.7 ng/mL Normal [facility] Comment on above: Order Comment: DR. Rdo GILLESPIE ORDERED CBCD, CMP, LDH, ESR AND CRPALIZA NIEVES ORDERED CMP, LIPID, CBCD, VITD Result Comment: Jaz min D 25(OH) Status Range Deficiency <20 ng/mL (50nmol/L) Insufficiency 20 - 30 ng/mL (50 - 75 nmol/L) Sufficiency 30 - 100 ng/mL (75 - 250 nmol/L) Toxicity >100 ng/mL (>250 nmol/L) Performed By: #### L 506.1000, L500.4050, L101.9900, L504.2610, L100.0100, L501.6710, L500.4100 ####[facility] [address] [place], [place], [id number] White blood cell (WBC) count Ordered By: Gary Diaz on 04-28-2024 WBC (Bld) [#/Vol] 4.1 10*3/uL Low 4.4-11.0 [facility] Gastroenterology Visit Repor ton 04-10-2024 Gastroenterology Visit Report Normal [facility] Internal Medicine Office Vis iton 03-12-2024 Internal Medicine Office Visit Normal [facility] Urine Cultureon 02-23-2024 URC Below infection leve l. Mixed Gram Positive Organisms [place] Count <1000 MIXC Mixed contaminants. Submit a new specimen if indicated. Normal [facility] Comment on above: Performed By: #### M 100.2200, L400.0001 ####[facility] [address] [place], [address] Chest PA and Lateralon 02-20 Chest PA and Lateral Normal [facility] Internal Medicine Office Vis iton 02-21-2024 Internal Medicine Office Visit Normal [facility] Urinalysis, Completeon 02-20 BACTERIA RARE Normal None Seen [facility] Comment on above: Order Comment: CLEAN CATCH Performed By: #### M 100.2200, L400.0001 ####[facility] [address] [place], [address] EPI,SQUAMOUS 0-5 SEEN Normal 5-10 [facility] Comment on above: Order Comment: CLEAN CATCH Performed By: #### M 100.2200, L400.0001 ####[facility] [address] [place], [address] RBC 0-5 SEEN Normal 0-5 [facility] Comment on above: Order Comment: CLEAN CATCH Performed By: #### M 100.2200, L400.0001 ####[facility] [address] [place], [address] WBC 0-5 SEEN Normal 0-5 [facility] Comment on above: Order Comment: CLEAN CATCH Performed By: #### M 100.2200, L400.0001 ####[facility] [address] [place], [address] Mucus Ql (Urine sed) 0 SEEN Normal [facility] Comment on above: Order Comment: CLEAN CATCH Performed By: #### M 100.2200, L400.0001 ####[facility] [address] [place], [address] 12 Lead EKGon 02-14-2024 12 Lead EKG Normal [facility] Abdomen/Pelvis without Conto n 02-14-2024 Abdomen/Pelvis without Cont Normal [facility] Basic Metabolic Profile (BMP )on 02-14-2024 BUN/CRE 22.7 RATIO High 10-20 [facility] Comment on above: Order Comment: 'TROP ' Serial specimen #1, #2 or #3: 1 Performed By: #### L 501.4020, L100.0100, L500.3400, L501.2450, L300.8000, L500.2500 ####[facility] [address] [place], [address] CA,Total 8.4 mg/dL Low 8.5-10.1 [facility] Comment on above: Order Comment: 'TROP ' Serial specimen #1, #2 or #3: 1 Performed By: #### L 501.4020, L100.0100, L500.3400, L501.2450, L300.8000, L500.2500 ####[facility] [address] [place], [address] Chloride [Moles/Vol] 113 mmol/L High 98-107 [facility] Comment on above: Order Comment: 'TROP ' Serial specimen #1, #2 or #3: 1 Performed By: #### L 501.4020, L100.0100, L500.3400, L501.2450, L300.8000, L500.2500 ####[facility] [address] [place], [address] CO2 [Moles/Vol] 23.0 mmol/L Normal 21.0-32.0 [facility] Comment on above: Order Comment: 'TROP ' Serial specimen #1, #2 or #3: 1 Performed By: #### L 501.4020, L100.0100, L500.3400, L501.2450, L300.8000, L500.2500 ####[facility] [address] [place], [address] Creatinine [Mass/Vol] 0.62 mg/dL Normal 0.55-1.02 [facility] Comment on above: Order Comment: 'TROP ' Serial specimen #1, #2 or #3: 1 Result Comment: The validity of the calculated GFR GFRAA in patients over70 years has not been determined. Clinical correlation isessential. Performed By: #### L 501.4020, L100.0100, L500.3400, L501.2450, L300.8000, L500.2500 ####[facility] [address] [place], [address] ECRCL 121.55 ml/min Normal [facility] Comment on above: Order Comment: 'TROP ' Serial specimen #1, #2 or #3: 1 Performed By: #### L 501.4020, L100.0100, L500.3400, L501.2450, L300.8000, L500.2500 ####[facility] [address] [place], [address] EST GFR - AA 133 mL/min Normal >60 [facility] Comment on above: Order Comment: 'TROP ' Serial specimen #1, #2 or #3: 1 Result Comment: Afri can Guyanese GFR Calc Performed By: #### L 501.4020, L100.0100, L500.3400, L501.2450, L300.8000, L500.2500 ####[facility] [address] [place], [address] GAP 5 Normal 5-15 [facility] Comment on above: Order Comment: 'TROP ' Serial specimen #1, #2 or #3: 1 Performed By: #### L 501.4020, L100.0100, L500.3400, L501.2450, L300.8000, L500.2500 ####[facility] [address] [place], [address] GFR/1.73 sq M.predicted among non-blacks MDRD (S/P/Bld) [Vol rate/Area] 110 mL/min/{1.73_m2} Normal >60 [facility] Comment on above: Order Comment: 'TROP ' Serial specimen #1, #2 or #3: 1 Result Comment: Non- GFR Calc Performed By: #### L 501.4020, L100.0100, L500.3400, L501.2450, L300.8000, L500.2500 ####[facility] [address] [place], [address] Glucose [Mass/Vol] 96 mg/dL Normal 74-106 [facility] Comment on above: Order Comment: 'TROP ' Serial specimen #1, #2 or #3: 1 Performed By: #### L 501.4020, L100.0100, L500.3400, L501.2450, L300.8000, L500.2500 ####[facility] [address] [place], [address] Potassium [Moles/Vol] 3.5 mmol/L Normal 3.5-5.1 [facility] Comment on above: Order Comment: 'TROP ' Serial specimen #1, #2 or #3: 1 Performed By: #### L 501.4020, L100.0100, L500.3400, L501.2450, L300.8000, L500.2500 ####[facility] [address] [place], [address] Sodium [Moles/Vol] 141 mmol/L Normal 136-145 [facility] Comment on above: Order Comment: 'TROP ' Serial specimen #1, #2 or #3: 1 Performed By: #### L 501.4020, L100.0100, L500.3400, L501.2450, L300.8000, L500.2500 ####[facility] [address] [place], [address] Urea nitrogen [Mass/Vol] 14 mg/dL Normal 7-18 [facility] Comment on above: Order Comment: 'TROP ' Serial specimen #1, #2 or #3: 1 Performed By: #### L 501.4020, L100.0100, L500.3400, L501.2450, L300.8000, L500.2500 ####[facility] [address] [place], [address] CBC W/Diff, Automatedon 11-0 7-2023 Absolute Lymph 1.62 X10 3/uL Normal 0.83-4.51 [facility] Comment on above: Performed By: #### L 501.4020, L100.0100, L500.3400, L501.2450, L300.8000, L500.2500 ####[facility] [address] [place], [address] Absolute Neut 2.8 X10 3/uL Normal 2.0-7.7 [facility] Comment on above: Performed By: #### L 501.4020, L100.0100, L500.3400, L501.2450, L300.8000, L500.2500 ####[facility] [address] [place], [address] Basophils/100 WBC (Bld) 0.6 % Normal 0-1 [facility] Comment on above: Performed By: #### L 501.4020, L100.0100, L500.3400, L501.2450, L300.8000, L500.2500 ####[facility] [address] [place], [address] Eosinophils/100 WBC (Bld) 3.2 % Normal 0-5 [facility] Comment on above: Performed By: #### L 501.4020, L100.0100, L500.3400, L501.2450, L300.8000, L500.2500 ####[facility] [address] [place], [address] Erythrocyte distribution width (RBC) [Ratio] 14.4 % Normal 11.6-14.6 [facility] Comment on above: Performed By: #### L 501.4020, L100.0100, L500.3400, L501.2450, L300.8000, L500.2500 ####[facility] [address] [place], [address] Hematocrit (Bld) [Volume fraction] 36.4 % Low 37-47 [facility] Comment on above: Performed By: #### L 501.4020, L100.0100, L500.3400, L501.2450, L300.8000, L500.2500 ####[facility] [address] [place], [address] Hemoglobin (Bld) [Mass/Vol] 11.7 g/dL Low 12.0-15.0 [facility] Comment on above: Performed By: #### L 501.4020, L100.0100, L500.3400, L501.2450, L300.8000, L500.2500 ####[facility] [address] [place], [address] IG% 0.400 Normal 0.0-0.9 [facility] Comment on above: Result Comment: IG% - Immature Granulocytes (promyelocytes, myelocytes andmetamyelocytes) > 1% indicates that a LEFT SHIFT is Present. Performed By: #### L 501.4020, L100.0100, L500.3400, L501.2450, L300.8000, L500.2500 ####[facility] [address] [place], [address] Lymphocytes/100 WBC (Bld) 32.2 % Normal 19-41 [facility] Comment on above: Performed By: #### L 501.4020, L100.0100, L500.3400, L501.2450, L300.8000, L500.2500 ####[facility] [address] [place], [address] MCH (RBC) [Entitic mass] 34.8 pg High 27.0-32.0 [facility] Comment on above: Performed By: #### L 501.4020, L100.0100, L500.3400, L501.2450, L300.8000, L500.2500 ####[facility] [address] [place], [address] MCHC (RBC) [Mass/Vol] 32.1 g/dL Normal 32-36 [facility] Comment on above: Performed By: #### L 501.4020, L100.0100, L500.3400, L501.2450, L300.8000, L500.2500 ####[facility] [address] [place], [address] MCV (RBC) [Entitic vol] 108.3 fL High 81-99 [facility] Comment on above: Performed By: #### L 501.4020, L100.0100, L500.3400, L501.2450, L300.8000, L500.2500 ####[facility] [address] [place], [address] Monocytes/100 WBC (Bld) 7.6 % Normal 0-10 [facility] Comment on above: Performed By: #### L 501.4020, L100.0100, L500.3400, L501.2450, L300.8000, L500.2500 ####[facility] [address] [place], [address] Neutrophils/100 WBC (Bld) 56.0 % Normal 47-70 [facility] Comment on above: Performed By: #### L 501.4020, L100.0100, L500.3400, L501.2450, L300.8000, L500.2500 ####[facility] [address] [place], [address] Nucleated RBC (Bld) [#/Vol] 0 10*3/uL Normal 0-5 [facility] Comment on above: Performed By: #### L 501.4020, L100.0100, L500.3400, L501.2450, L300.8000, L500.2500 ####[facility] [address] [place], [address] Platelet mean volume (Bld) [Entitic vol] 10.9 fL Normal 6.2-12.0 [facility] Comment on above: Performed By: #### L 501.4020, L100.0100, L500.3400, L501.2450, L300.8000, L500.2500 ####[facility] [address] [place], [address] Platelets (Bld) [#/Vol] 171 10*3/uL Normal 150-450 [facility] Comment on above: Performed By: #### L 501.4020, L100.0100, L500.3400, L501.2450, L300.8000, L500.2500 ####[facility] [address] [place], [address] RBC (Bld) [#/Vol] 3.36 10*6/uL Low 4.2-5.4 [facility] Comment on above: Performed By: #### L 501.4020, L100.0100, L500.3400, L501.2450, L300.8000, L500.2500 ####[facility] [address] [place], [address] RDW SD 57.1 fl High 35.1-43.9 [facility] Comment on above: Performed By: #### L 501.4020, L100.0100, L500.3400, L501.2450, L300.8000, L500.2500 ####[facility] [address] [place], [address] WBC (Bld) [#/Vol] 5.0 10*3/uL Normal 4.4-11.0 [facility] Comment on above: Performed By: #### L 501.4020, L100.0100, L500.3400, L501.2450, L300.8000, L500.2500 ####[facility] [address] [place], [address] D-Dimer Quantitative (DVT/PE )on 02-14-2024 D-DIMER QUANT 0.30 FEU/ug/m Normal 0.27-0.49 [facility] Comment on above: Result Comment: NORM AL D-Dimer level (<0.50) indicates no DVT or PE. Performed By: #### L 501.4020, L100.0100, L500.3400, L501.2450, L300.8000, L500.2500 ####[facility] [address] [place], [address] Emergency Department Summary on 02-14-2024 Emergency Department Summary Normal [facility] L501.4020on 02-14-2024 TROPONIN-I HS < 3 Low 3.0-54.0 [facility] Comment on above: Order Comment: 'TROP ' Serial specimen #1, #2 or #3: 1 Result Comment: Plea se Note: New Test Units and Gender Specific Reference Ranges. For more information see Policy Stat Procedure [place] High Sensitivity Troponin (TNIH) and attachments. Performed By: #### L 501.4020, L100.0100, L500.3400, L501.2450, L300.8000, L500.2500 ####[facility] [address] [place], [address] Lipaseon 02-14-2024 Lipase [Catalytic activity/Vol] 27 U/L Normal 13-75 [facility] Comment on above: Order Comment: 'TROP ' Serial specimen #1, #2 or #3: 1 Result Comment: Plea se note:LIPASE revised reference range effective 22.New Lipase methodology. Expected to produce lower valuesthan the previous assay method.NEW Reference Range: 13 - 75 U/L Performed By: #### L 501.4020, L100.0100, L500.3400, L501.2450, L300.8000, L500.2500 ####[facility] [address] [place], [address] Liver Profileon 02-14-2024 Albumin [Mass/Vol] 3.5 g/dL Normal 3.2-5.0 [facility] Comment on above: Order Comment: 'TROP ' Serial specimen #1, #2 or #3: 1 Performed By: #### L 501.4020, L100.0100, L500.3400, L501.2450, L300.8000, L500.2500 ####[facility] [address] [place], [address] ALK P 119 U/L High 45-117 [facility] Comment on above: Order Comment: 'TROP ' Serial specimen #1, #2 or #3: 1 Performed By: #### L 501.4020, L100.0100, L500.3400, L501.2450, L300.8000, L500.2500 ####[facility] [address] [place], [address] ALT [Catalytic activity/Vol] 22 U/L Normal 13-56 [facility] Comment on above: Order Comment: 'TROP ' Serial specimen #1, #2 or #3: 1 Performed By: #### L 501.4020, L100.0100, L500.3400, L501.2450, L300.8000, L500.2500 ####[facility] [address] [place], [address] AST [Catalytic activity/Vol] 22 U/L Normal 15-37 [facility] Comment on above: Order Comment: 'TROP ' Serial specimen #1, #2 or #3: 1 Performed By: #### L 501.4020, L100.0100, L500.3400, L501.2450, L300.8000, L500.2500 ####[facility] [address] [place], [address] Bilirubin [Mass/Vol] 0.50 mg/dL Normal 0.20-1.00 [facility] Comment on above: Order Comment: 'TROP ' Serial specimen #1, #2 or #3: 1 Result Comment: For patients on eltrombopag therapy, use of Dimension [place] TBIL is not recommended. Performed By: #### L 501.4020, L100.0100, L500.3400, L501.2450, L300.8000, L500.2500 ####[facility] [address] [place], [address] Bilirubin.direct [Mass/Vol] 0.07 mg/dL Normal 0.00-0.30 [facility] Comment on above: Order Comment: 'TROP ' Serial specimen #1, #2 or #3: 1 Performed By: #### L 501.4020, L100.0100, L500.3400, L501.2450, L300.8000, L500.2500 ####[facility] [address] [place], [address] Globulin (S) [Mass/Vol] 3.9 g/dL Normal 2.2-4.2 [facility] Comment on above: Order Comment: 'TROP ' Serial specimen #1, #2 or #3: 1 Performed By: #### L 501.4020, L100.0100, L500.3400, L501.2450, L300.8000, L500.2500 ####[facility] [address] [place], [address] T PROT 7.4 g/dL Normal 6.4-8.2 [facility] Comment on above: Order Comment: 'TROP ' Serial specimen #1, #2 or #3: 1 Performed By: #### L 501.4020, L100.0100, L500.3400, L501.2450, L300.8000, L500.2500 ####[facility] [address] [place], [address] Urinalysis, Completeon 02-13 EPI,SQUAMOUS 0-5 SEEN Normal 5-10 [facility] Comment on above: Order Comment: CLEAN CATCH Performed By: #### L 400.0001 ####[facility] [address] [place], [address] BACTERIA 0 SEEN Normal None Seen [facility] Comment on above: Order Comment: CLEAN CATCH Performed By: #### L 400.0001 ####[facility] [address] [place], [address] Mucus Ql (Urine sed) 0 SEEN Normal [facility] Comment on above: Order Comment: CLEAN CATCH Performed By: #### L 400.0001 ####[facility] [address] [place], [address] RBC 0 SEEN Normal 0-5 [facility] Comment on above: Order Comment: CLEAN CATCH Performed By: #### L 400.0001 ####[facility] [address] [place], [address] WBC 0 SEEN Normal 0-5 [facility] Comment on above: Order Comment: CLEAN CATCH Performed By: #### L 400.0001 ####[facility] [address] [place], [address] Office Visit Reporton 2023 Office Visit Report Normal [facility] 12 Lead EKGon 02-06-2024 12 Lead EKG Normal [facility] Basic Metabolic Profile (BMP )on 02-06-2024 BUN/CRE 17.7 RATIO Normal -20 [facility] Comment on above: Order Comment: 'TROP ' Serial specimen #1, #2 or #3: 1 Performed By: #### L 501.5200, L500.3400, L500.2500, L501.2450, L501.4020, L100.0100 ####[facility] [address] [place], [address] CA,Total 8.6 mg/dL Normal 8.5-10.1 [facility] Comment on above: Order Comment: 'TROP ' Serial specimen #1, #2 or #3: 1 Performed By: #### L 501.5200, L500.3400, L500.2500, L501.2450, L501.4020, L100.0100 ####[facility] [address] [place], [address] Chloride [Moles/Vol] 113 mmol/L High 98-107 [facility] Comment on above: Order Comment: 'TROP ' Serial specimen #1, #2 or #3: 1 Performed By: #### L 501.5200, L500.3400, L500.2500, L501.2450, L501.4020, L100.0100 ####[facility] [address] [place], [address] CO2 [Moles/Vol] 25.0 mmol/L Normal 21.0-32.0 [facility] Comment on above: Order Comment: 'TROP ' Serial specimen #1, #2 or #3: 1 Performed By: #### L 501.5200, L500.3400, L500.2500, L501.2450, L501.4020, L100.0100 ####[facility] [address] [place], [address] Creatinine [Mass/Vol] 0.68 mg/dL Normal 0.55-1.02 [facility] Comment on above: Order Comment: 'TROP ' Serial specimen #1, #2 or #3: 1 Result Comment: The validity of the calculated GFR GFRAA in patients over70 years has not been determined. Clinical correlation isessential. Performed By: #### L 501.5200, L500.3400, L500.2500, L501.2450, L501.4020, L100.0100 ####[facility] [address] [place], [address] ECRCL 111.73 ml/min Normal [facility] Comment on above: Order Comment: 'TROP ' Serial specimen #1, #2 or #3: 1 Performed By: #### L 501.5200, L500.3400, L500.2500, L501.2450, L501.4020, L100.0100 ####[facility] [address] [place], [address] EST GFR - AA 120 mL/min Normal >60 [facility] Comment on above: Order Comment: 'TROP ' Serial specimen #1, #2 or #3: 1 Result Comment: Afri can Guyanese GFR Calc Performed By: #### L 501.5200, L500.3400, L500.2500, L501.2450, L501.4020, L100.0100 ####[facility] [address] [place], [address] GAP 5 Normal 5-15 [facility] Comment on above: Order Comment: 'TROP ' Serial specimen #1, #2 or #3: 1 Performed By: #### L 501.5200, L500.3400, L500.2500, L501.2450, L501.4020, L100.0100 ####[facility] [address] [place], [address] GFR/1.73 sq M.predicted among non-blacks MDRD (S/P/Bld) [Vol rate/Area] 99 mL/min/{1.73_m2} Normal >60 [facility] Comment on above: Order Comment: 'TROP ' Serial specimen #1, #2 or #3: 1 Result Comment: Non- GFR Calc Performed By: #### L 501.5200, L500.3400, L500.2500, L501.2450, L501.4020, L100.0100 ####[facility] [address] [place], [address] Glucose [Mass/Vol] 118 mg/dL High 74-106 [facility] Comment on above: Order Comment: 'TROP ' Serial specimen #1, #2 or #3: 1 Result Comment: Fast ing Glucose result from 100 to 125 mg/dLsuggests IMPAIRED HOMEOSTASIS per A.D.A. criteria. Performed By: #### L 501.5200, L500.3400, L500.2500, L501.2450, L501.4020, L100.0100 ####[facility] [address] [place], [address] Potassium [Moles/Vol] 3.4 mmol/L Low 3.5-5.1 [facility] Comment on above: Order Comment: 'TROP ' Serial specimen #1, #2 or #3: 1 Performed By: #### L 501.5200, L500.3400, L500.2500, L501.2450, L501.4020, L100.0100 ####[facility] [address] [place], [address] Sodium [Moles/Vol] 142 mmol/L Normal 136-145 [facility] Comment on above: Order Comment: 'TROP ' Serial specimen #1, #2 or #3: 1 Performed By: #### L 501.5200, L500.3400, L500.2500, L501.2450, L501.4020, L100.0100 ####[facility] [address] [place], [address] Urea nitrogen [Mass/Vol] 12 mg/dL Normal 7-18 [facility] Comment on above: Order Comment: 'TROP ' Serial specimen #1, #2 or #3: 1 Performed By: #### L 501.5200, L500.3400, L500.2500, L501.2450, L501.4020, L100.0100 ####[facility] [address] [place], [address] CBC W/Diff, Automatedon 10-3 0-2024 Absolute Lymph 2.00 X10 3/uL Normal 0.83-4.51 [facility] Comment on above: Performed By: #### L 501.5200, L500.3400, L500.2500, L501.2450, L501.4020, L100.0100 ####[facility] [address] [place], [address] Absolute Neut 2.4 X10 3/uL Normal 2.0-7.7 [facility] Comment on above: Performed By: #### L 501.5200, L500.3400, L500.2500, L501.2450, L501.4020, L100.0100 ####[facility] [address] [place], [address] Basophils/100 WBC (Bld) 0.6 % Normal 0-1 [facility] Comment on above: Performed By: #### L 501.5200, L500.3400, L500.2500, L501.2450, L501.4020, L100.0100 ####[facility] [address] [place], [address] Eosinophils/100 WBC (Bld) 6.2 % High 0-5 [facility] Comment on above: Performed By: #### L 501.5200, L500.3400, L500.2500, L501.2450, L501.4020, L100.0100 ####[facility] [address] [place], [address] Erythrocyte distribution width (RBC) [Ratio] 14.1 % Normal 11.6-14.6 [facility] Comment on above: Performed By: #### L 501.5200, L500.3400, L500.2500, L501.2450, L501.4020, L100.0100 ####[facility] [address] [place], [address] Hematocrit (Bld) [Volume fraction] 35.7 % Low 37-47 [facility] Comment on above: Performed By: #### L 501.5200, L500.3400, L500.2500, L501.2450, L501.4020, L100.0100 ####[facility] [address] [place], [address] Hemoglobin (Bld) [Mass/Vol] 11.5 g/dL Low 12.0-15.0 [facility] Comment on above: Performed By: #### L 501.5200, L500.3400, L500.2500, L501.2450, L501.4020, L100.0100 ####[facility] [address] [place], [address] IG% 0.200 Normal 0.0-0.9 [facility] Comment on above: Result Comment: IG% - Immature Granulocytes (promyelocytes, myelocytes andmetamyelocytes) > 1% indicates that a LEFT SHIFT is Present. Performed By: #### L 501.5200, L500.3400, L500.2500, L501.2450, L501.4020, L100.0100 ####[facility] [address] [place], [address] Lymphocytes/100 WBC (Bld) 38.8 % Normal 19-41 [facility] Comment on above: Performed By: #### L 501.5200, L500.3400, L500.2500, L501.2450, L501.4020, L100.0100 ####[facility] [address] [place], [address] MCH (RBC) [Entitic mass] 34.3 pg High 27.0-32.0 [facility] Comment on above: Performed By: #### L 501.5200, L500.3400, L500.2500, L501.2450, L501.4020, L100.0100 ####[facility] [address] [place], [address] MCHC (RBC) [Mass/Vol] 32.2 g/dL Normal 32-36 [facility] Comment on above: Performed By: #### L 501.5200, L500.3400, L500.2500, L501.2450, L501.4020, L100.0100 ####[facility] [address] [place], [address] MCV (RBC) [Entitic vol] 106.6 fL High 81-99 [facility] Comment on above: Performed By: #### L 501.5200, L500.3400, L500.2500, L501.2450, L501.4020, L100.0100 ####[facility] [address] [place], [address] Monocytes/100 WBC (Bld) 7.2 % Normal 0-10 [facility] Comment on above: Performed By: #### L 501.5200, L500.3400, L500.2500, L501.2450, L501.4020, L100.0100 ####[facility] [address] [place], [address] Neutrophils/100 WBC (Bld) 47.0 % Normal 47-70 [facility] Comment on above: Performed By: #### L 501.5200, L500.3400, L500.2500, L501.2450, L501.4020, L100.0100 ####[facility] [address] [place], [address] Nucleated RBC (Bld) [#/Vol] 0 10*3/uL Normal 0-5 [facility] Comment on above: Performed By: #### L 501.5200, L500.3400, L500.2500, L501.2450, L501.4020, L100.0100 ####[facility] [address] [place], [address] Platelet mean volume (Bld) [Entitic vol] 12.0 fL Normal 6.2-12.0 [facility] Comment on above: Performed By: #### L 501.5200, L500.3400, L500.2500, L501.2450, L501.4020, L100.0100 ####[facility] [address] [place], [address] Platelets (Bld) [#/Vol] 180 10*3/uL Normal 150-450 [facility] Comment on above: Performed By: #### L 501.5200, L500.3400, L500.2500, L501.2450, L501.4020, L100.0100 ####[facility] [address] [place], [address] RBC (Bld) [#/Vol] 3.35 10*6/uL Low 4.2-5.4 [facility] Comment on above: Performed By: #### L 501.5200, L500.3400, L500.2500, L501.2450, L501.4020, L100.0100 ####[facility] [address] [place], [address] RDW SD 55.2 fl High 35.1-43.9 [facility] Comment on above: Performed By: #### L 501.5200, L500.3400, L500.2500, L501.2450, L501.4020, L100.0100 ####[facility] [address] [place], [address] WBC (Bld) [#/Vol] 5.2 10*3/uL Normal 4.4-11.0 [facility] Comment on above: Performed By: #### L 501.5200, L500.3400, L500.2500, L501.2450, L501.4020, L100.0100 ####[facility] [address] [place], [address] Chest PA and Lateralon 02-05 Chest PA and Lateral Normal [facility] Emergency Department Summary on 02-06-2024 Emergency Department Summary Normal [facility] L501.4020on 02-06-2024 TROPONIN-I HS < 3 Low 3.0-54.0 [facility] Comment on above: Order Comment: 'TROP ' Serial specimen #1, #2 or #3: 1 Result Comment: Plea se Note: New Test Units and Gender Specific Reference Ranges. For more information see Policy Stat Procedure [place] High Sensitivity Troponin (TNIH) and attachments. Performed By: #### L 501.5200, L500.3400, L500.2500, L501.2450, L501.4020, L100.0100 ####[facility] [address] [place], [address] Lipaseon 02-06-2024 Lipase [Catalytic activity/Vol] 34 U/L Normal 13-75 [facility] Comment on above: Order Comment: 'TROP ' Serial specimen #1, #2 or #3: 1 Result Comment: Plea se note:LIPASE revised reference range effective 22.New Lipase methodology. Expected to produce lower valuesthan the previous assay method.NEW Reference Range: 13 - 75 U/L Performed By: #### L 501.5200, L500.3400, L500.2500, L501.2450, L501.4020, L100.0100 ####[facility] [address] [place], [address] Liver Profileon 02-06-2024 Albumin [Mass/Vol] 3.4 g/dL Normal 3.2-5.0 [facility] Comment on above: Order Comment: 'TROP ' Serial specimen #1, #2 or #3: 1 Performed By: #### L 501.5200, L500.3400, L500.2500, L501.2450, L501.4020, L100.0100 ####[facility] [address] [place], [address] ALK P 109 U/L Normal 45-117 [facility] Comment on above: Order Comment: 'TROP ' Serial specimen #1, #2 or #3: 1 Performed By: #### L 501.5200, L500.3400, L500.2500, L501.2450, L501.4020, L100.0100 ####[facility] [address] [place], [address] ALT [Catalytic activity/Vol] 20 U/L Normal 13-56 [facility] Comment on above: Order Comment: 'TROP ' Serial specimen #1, #2 or #3: 1 Performed By: #### L 501.5200, L500.3400, L500.2500, L501.2450, L501.4020, L100.0100 ####[facility] [address] [place], [address] AST [Catalytic activity/Vol] 13 U/L Low 15-37 [facility] Comment on above: Order Comment: 'TROP ' Serial specimen #1, #2 or #3: 1 Performed By: #### L 501.5200, L500.3400, L500.2500, L501.2450, L501.4020, L100.0100 ####[facility] [address] [place], [address] Bilirubin [Mass/Vol] 0.30 mg/dL Normal 0.20-1.00 [facility] Comment on above: Order Comment: 'TROP ' Serial specimen #1, #2 or #3: 1 Result Comment: For patients on eltrombopag therapy, use of Dimension [place] TBIL is not recommended. Performed By: #### L 501.5200, L500.3400, L500.2500, L501.2450, L501.4020, L100.0100 ####[facility] [address] [place], [address] Bilirubin.direct [Mass/Vol] 0.11 mg/dL Normal 0.00-0.30 [facility] Comment on above: Order Comment: 'TROP ' Serial specimen #1, #2 or #3: 1 Performed By: #### L 501.5200, L500.3400, L500.2500, L501.2450, L501.4020, L100.0100 ####[facility] [address] [place], [address] Globulin (S) [Mass/Vol] 3.9 g/dL Normal 2.2-4.2 [facility] Comment on above: Order Comment: 'TROP ' Serial specimen #1, #2 or #3: 1 Performed By: #### L 501.5200, L500.3400, L500.2500, L501.2450, L501.4020, L100.0100 ####[facility] [address] [place], [address] T PROT 7.3 g/dL Normal 6.4-8.2 [facility] Comment on above: Order Comment: 'TROP ' Serial specimen #1, #2 or #3: 1 Performed By: #### L 501.5200, L500.3400, L500.2500, L501.2450, L501.4020, L100.0100 ####[facility] [address] [place], [address] Magnesiumon 02-06-2024 Magnesium [Mass/Vol] 2.1 mg/dL Normal 1.6-2.6 [facility] Comment on above: Order Comment: 'TROP ' Serial specimen #1, #2 or #3: 1 Performed By: #### L 501.5200, L500.3400, L500.2500, L501.2450, L501.4020, L100.0100 ####[facility] [address] [place], [address] CNPNon 01-31-2024 CNPN Telephone (RHBATH) -------- CRYS FRANKS ([id number]) 1975 F Date Time Provider Department 01/31/24 TRISH ADAMES During your visit today, we recorded the following information about you: AdanboniBatool 01/31/2024 11:13 AM Signed No Show Documentation Crys Franks no showed for an appointment on [id number] with Trish Adames MD at [place]. She was scheduled for 1000. I called and spoke with the patient regarding her missed appointment. Crys stated the reason that she missed her appointment was because forgot about appointment . Resources discussed/offered to patient: No show determined to be fault of patient: Yes This is the patients first no show in the last 12 months. Patient was rescheduled for no. Letter mailed : Yes Is this the Third or Fourth No Show? No Batool Dodson January 31, 2024 11:04 AM Batool Dodson 01/31/2024 12:03 PM Signed This patient had left a message on Julisa's phone yesterday that she was sick and would not be in today. THIS IS NOT A NO SHOW Batool Dodson Allergies As of Date: 01/31/2024 Noted Allergy Reaction DOXYCYCLINE 08/10/2023 2 - Rash 10 - Anaphylaxis 11 - Vomiting Comments: Red spots inside mouth, tongue swelling. Rash distributed over entire body. Denies SOB. LITHIUM 05/22/2023 1 - Mental Status Change SHELLFISH DERIVED 10/12/2014 14 - Other: See Comments 10 - Anaphylaxis Comments: THROAT SWELLING Seafood--THROAT SWELLS VENOM-HONEY BEE 08/11/2019 16 - Unknown VENOM-WASP 08/11/2019 16 - Unknown CARAFATE (SUCRALFATE) 08/18/2021 4 - Hives Comments: Hives and Vomiting LATEX 11/20/2016 2 - Rash 4 - Hives ADHESIVE TAPE (ROSINS) 01/19/2016 2 - Rash ALEVE (NAPROXEN SODIUM) 11/13/2017 14 - Other: See Comments BACTRIM (SULFAMETHOXAZOLE-TRIMET H*08/10/2017 14 - Other: See Comments Comments: severe headaches and nosebleeds CIPRO (CIPROFLOXACIN HCL) 10/23/2021 2 - Rash ERYTHROMYCIN 01/19/2016 2 - Rash FLAGYL (METRONIDAZOLE HCL) 01/19/2016 14 - Other: See Comments Comments: THROAT SWELLING IODINE 01/19/2016 14 - Other: See Comments Comments: THROAT SWELL NAPROXYN (NAPROXEN) 01/19/2016 14 - Other: See Comments Comments: HEART STOPPED NOVACAINE (PROCAINE) 03/02/2017 14 - Other: See Comments Comments: Does not work ONDANSETRON 09/26/2016 14 - Other: See Comments Comments: headache PENICILLINS 02/02/2016 14 - Other: See Comments Comments: THROAT SWELLING PREGABALIN 01/27/2015 7 - Swelling Comments: Facial swelling, very irritable WELLBUTRIN (BUPROPION HCL) 04/11/2018 14 - Other: See Comments Comments: Zokit like state Date Reviewed: 01/03/2024 Reviewed by: Julisa Jimenez LPN - Fully Assessed Reason for Visit: No Show [1558] Prescriptions as of 01/31/2024 - cholecalciferol, Vitamin D3, (VITAMIN D3) 1,250 mcg (50,000 unit) cap capsule take 1 capsule by mouth every week - folic acid 1 mg tablet Take 1 tablet by mouth once daily. - hydrOXYchloroQUINE (PLAQUENIL) 200 mg tablet Take 1 tablet by mouth every 12 hours. - methotrexate 2.5 mg tablet Take 10 tablets by mouth one time a week. - predniSONE (DELTASONE) 10 mg tablet Prednisone 30 mg (3 tabs) for 1 wk, 25 mg (2.5 tabs) for 1 wk, 20 mg (2 tabs) for 1 wk, 15 mg (1.5 tabs) for 1 wk, 10 mg (1tab) for 1 wk, 5 mg (half tab) daily till you finish the bottle - busPIRone (BUSPAR) 10 mg tablet Take 10 mg by mouth two times a day. - ubrogepant (UBRELVY) 100 mg tablet Take 100 mg by mouth as needed. - ondansetron (ZOFRAN ODT ORAL) Take 4 mg by mouth every 6 hours as needed. - DOCUSATE SODIUM ORAL Take 100 mg by mouth two times a day. - fremanezumab-vfrm (AJOVY SYRINGE) 225 mg/1.5 mL syringe Inject 225 mg subcutaneously once every month. Do not shake. - gabapentin (NEURONTIN) 600 mg tablet Take 1 tablet by mouth three times daily for 30 days. Do not start before March 09, 2022. - scopolamine (TRANSDERM-SCOP) patch 1.5 mg/72 hr (delivers 1 mg over 3 days) Apply 1 Patch as directed every 72 hours. - baclofen (LIORESAL) 10 mg tablet TAKE 1 TABLET BY MOUTH UP TO THREE TIMES A DAY NEEDED FOR PAINFUL MUSCLE SPASM - quetiapine fumarate (QUETIAPINE ORAL) Take 700 mg by mouth daily at bedtime. 700mg daily - pantoprazole DR (PROTONIX) 40 mg tablet TAKE 1 TABLET BY MOUTH DAILY 30 MINUTES BEFORE A MEAL - prazosin (MINIPRESS) 2 mg cap Take 4 mg by mouth daily at bedtime. - hydrOXYzine pamoate (VISTARIL) 50 mg capsule Take 50 mg by mouth two times a day as needed. - topiramate (TOPAMAX) 200 mg tablet Take 200 mg by mouth daily at bedtime. - dicyclomine (BENTYL) 10 mg capsule TAKE 1 CAPSULE BY MOUTH FOUR TIMES A DAY BEFORE MEALS AND AT BEDTIME - levETIRAcetam (KEPPRA) 500 mg tablet TAKE 1 TABLET BY MOUTH TWICE A DAY - simvastatin (ZOCOR) 20 mg tablet Take 1 tablet by mouth daily at bedtime. - promethazine (PHENERGAN) 25 mg tablet take 1 tablet (more content not included)... Normal [facility] CNPN Telephone (RHBATH) -------- CRYS FRANKS ([id number]) 1975 F Date Time Provider Department 01/31/24 TRISH ADAMES During your visit today, we recorded the following information about you: Julisa Jimenez LPN 01/31/2024 12:09 PM Addendum Patient left vm stating she was not going to be able to keep her appointment on 01/31/2024 due to illness. Onset 01/30/2024 Fever 101.2, vomiting, diarrhea Call placed to patient, no answer. Left detailed message asking patient to call her PCP for an appt. ANDREA Gan Tina, LPN 01/31/2024 4:15 PM Addendum Patient states she reached out to her PCP's office on their website. Patient encouraged to call and leave a message with PCP and GI. Patient has been out of zofran and phenergan. Temperature: 99.6 F today after taking APAP Diarrhea alternates with constipation and vomiting continues. Patient reports she was in [place] ER two weeks ago and a hernia was found. I asked her to call them and have records faxed to the office. ANDREA Gan Niharika, MD 01/31/2024 3:59 PM Signed Did she follow up with GI? Julisa Jimenez LPN 01/31/2024 4:15 PM Addendum Patient left vm with PCP and GI. ANDREA Gan Niharika, MD 02/11/2024 1:10 PM Signed I dont see any follow ups for her. Did she get a hold of GI or pcp. She may need repeat CT abd. Julisa Jimenez LPN 02/12/2024 11:29 AM Signed Call placed to patient, no answer. Left detailed vm to call the office and let us know if she scheduled with her PCP and GI. Instructed to schedule with Rheumatology as well. ANDREA Gan Tina, LPN 02/19/2024 9:23 AM Signed Patient states she is scheduled with another provider in her PCP's office on 02/21/2024. Patient called GI ten times and they are not calling her back, not refilling meds. Patient's block and case maker is having problems getting return calls as well. Patient is going to schedule with a new GI provider. ER visit's on 01/09/2024 and 02/06/2024 in [facility]. ER visit on 01/09/[address] abd, see results below from [facility] Everywhere. Julisa Jimenez LPN Patient Education 01/09/2024 18:15:54 AA Shraddha ESTEBAN (CUSTOM) type:CT Abd/Pelvis w/ IV Contrast Only Result date:January 09, 2024 17:05 EDT Result status:In Progress Result title:CT ABD/PELVIS W/ IV CONTRAST ONLY Performed by:SOFIA ADAMES DO on January 09, 2024 17:03 EDT Cosigned by:SOFIA ADAMES DO Encounter info:[id number], JOSE ARMANDO [place], Emergency, 01/09/2024 - Contributor system:[employer]ek * Preliminary Report * [id number] ORIGINAL EXAMINATION: CT OF THE ABDOMEN AND PELVIS WITH [id number]/2/2024 5:06 pm TECHNIQUE: CT of the abdomen and pelvis was performed with the administration of intravenous contrast. Multiplanar reformatted images are provided for review. Automated exposure control, iterative reconstruction, and/or weight based adjustment of the mA/kV was utilized to reduce the radiation dose to as low as reasonably achievable.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 Urea nitrogen [Mass/Vol] 11 mg/dL Normal 7-18 [facility] ([place]) Comment on above: Performed By: #### A DE, ADIFF, CBC, CMP, MDW, LIP, GFR #### [address] [address] CBCon 09-20-2023 Erythrocyte distribution width (RBC) [Ratio] 14.2 % Normal 11.5-14.5 [facility] ([place]) Comment on above: Performed By: #### A DE, ADIFF, CBC, CMP, MDW, LIP, GFR #### [address] [address] Hematocrit (Bld) [Volume fraction] 35.8 % Low 37.0-47.0 [facility] ([place]) Comment on above: Performed By: #### A DE, ADIFF, CBC, CMP, MDW, LIP, GFR #### [address] [address] Hgb 12.1 G/dL Normal 12.0-16.0 [facility] ([place]) Comment on above: Performed By: #### A DE, ADIFF, CBC, CMP, MDW, LIP, GFR #### [address] [address] MCH (RBC) [Entitic mass] 35.5 pg High 27.0-31.2 [facility] ([place]) Comment on above: Performed By: #### A DE, ADIFF, CBC, CMP, MDW, LIP, GFR #### [address] [address] MCHC 33.8 G/dL Normal 33.0-37.0 [facility] ([place]) Comment on above: Performed By: #### A DE, ADIFF, CBC, CMP, MDW, LIP, GFR #### [address] [address] MCV (RBC) [Entitic vol] 105.0 fL High 80.0-94.0 [facility] ([place]) Comment on above: Performed By: #### A DE, ADIFF, CBC, CMP, MDW, LIP, GFR #### [address] [address] Platelet 173 10 3/mcL Normal 130-400 [facility] ([place]) Comment on above: Performed By: #### A DE, ADIFF, CBC, CMP, MDW, LIP, GFR #### [address] [address] Platelet mean volume (Bld) [Entitic vol] 9.4 fL Normal 7.4-10.4 [facility] ([place]) Comment on above: Performed By: #### A DE, ADIFF, CBC, CMP, MDW, LIP, GFR #### Jose Armando [address] [address] RBC 3.41 10 6/mcL Low 4.20-5.40 [facility] ([place]) Comment on above: Performed By: #### A DE, ADIFF, CBC, CMP, MDW, LIP, GFR #### Jose Armando [address] [address] WBC 4.1 10 3/mcL Low 4.6-10.8 [facility] ([place]) Comment on above: Performed By: #### A DE, ADIFF, CBC, CMP, MDW, LIP, GFR #### [address] [address] LABORATORYOrdered By: SYSTEM SYSTEM on 09-20-2023 Basophil, Absolute 0.0 103/mcL Normal 0.0 - 0.2 10^3/mcL AO Workflow SS Basophils/100 WBC (Bld) 0.7 % Normal 0.0 - 2.5 % AO Workflow SS Calcium [Mass/Vol] 8.2 mg/dL Low 8.4 - 10. 2 mg/dL AO ADM SS Chloride [Moles/Vol] 104 mmol/L Normal 98 - 10 7 mmol/L AO ADM SS CO2 [Moles/Vol] 27 mmol/L Normal 22 - 29 mmol/L AO ADM SS Creatinine [Mass/Vol] 0.72 mg/dL Normal 0.55 - 1.02 mg/dL AO ADM SS Electrolyte Balance 7.0 mEq/L Normal 4.0 - 15 .0 mEq/L AO ADM SS Eosinophil, Absolute 0.1 103/mcL Normal 0.0 - 0 .4 10^3/mcL AO Workflow SS Eosinophils/100 WBC (Bld) 3.1 % Normal 0.0 - 7.0 % AO Workflow SS Erythrocyte distribution width (RBC) [Ratio] 14.2 % Normal 11.5 - 14.5 % AO Workflow SS GFR/1.73 sq M.predicted among blacks MDRD (S/P/Bld) [Vol rate/Area] 105 ml/min/1.73sqm Invalid Interpretation Code AO Chemistry S Comment on above: Interpretive Data: GFR Population mean for , Non- Americans Ages 20-29 = 116 mL/min/1.73 sq.m. Ages 30-39 = 107 mL/min/1.73 sq.m. Ages 40-49 = 99 mL/min/1.73 sq.m. Ages 50-59 = 93 mL/min/1.73 sq.m. Ages 60-69 = 85 mL/min/1.73 sq.m. Ages 70+ = 75 mL/min/1.73 sq.m. Chronic Kidney Disease: Less than 60 mL/min/1.73 square meters End Stage Renal Disease: Less than 15 mL/min/1.73 square meters GFR/1.73 sq M.predicted among non-blacks MDRD (S/P/Bld) [Vol rate/Area] 87 ml/min/1.73sqm Invalid Interpretation Code AO Chemistry S Comment on above: Interpretive Data: GFR Population mean for , Non- Americans Ages 20-29 = 116 mL/min/1.73 sq.m. Ages 30-39 = 107 mL/min/1.73 sq.m. Ages 40-49 = 99 mL/min/1.73 sq.m. Ages 50-59 = 93 mL/min/1.73 sq.m. Ages 60-69 = 85 mL/min/1.73 sq.m. Ages 70+ = 75 mL/min/1.73 sq.m. Chronic Kidney Disease: Less than 60 mL/min/1.73 square meters End Stage Renal Disease: Less than 15 mL/min/1.73 square meters Glucose [Mass/Vol] 93 mg/dL Normal 70 - 105 mg/dL AO ADM SS Hematocrit (Bld) [Volume fraction] 35.8 % Low 37.0 - 47.0 % AO Workflow SS Hemoglobin (Bld) [Mass/Vol] 12.1 G/dL Normal 12.0 - 16.0 G/dL AO Workflow SS Lymphocyte, Absolute 1.7 103/mcL Normal 0.8 - 3 .9 10^3/mcL AO Workflow SS Lymphocytes/100 WBC (Bld) 41.3 % Normal 10.0 - 50.0 % AO Workflow SS MCH (RBC) [Entitic mass] 35.5 pg High 27.0 - 31.2 pg AO Workflow SS MCHC 33.8 G/dL Normal 33.0 - 37.0 G/dL AO Workflow SS MCV (RBC) [Entitic vol] 105.0 fL High 80.0 - 94.0 fL AO Workflow SS Monocyte, Absolute 0.1 103/mcL Low 0.2 - 1.0 10^3/mcL AO Workflow SS Monocytes/100 WBC (Bld) 3.5 % Normal 1.7 - 13.0 % AO Workflow SS Neutrophil, Absolute 2.1 103/mcL Low 2.9 - 6 .2 10^3/mcL AO Workflow SS Neutrophils/100 WBC (Bld) 51.4 % Normal 37.0 - 80.0 % AO Workflow SS Platelet mean volume (Bld) [Entitic vol] 9.4 fL Normal 7.4 - 10.4 fL AO Workflow SS Platelets (Bld) [#/Vol] 173 103/mcL Normal 130 - 400 10^3/mcL AO Workflow SS Potassium [Moles/Vol] 3.7 mmol/L Normal 3.5 - 5.1 mmol/L AO ADM SS RBC (Bld) [#/Vol] 3.41 106/mcL Low 4.20 - 5.4 0 10^6/mcL AO Workflow SS Sodium [Moles/Vol] 138 mmol/L Normal 136 - 145 mmol/L AO ADM SS Urea nitrogen [Mass/Vol] 11 mg/dL Normal 7 - 18 mg/dL AO ADM SS Urea nitrogen/Creatinine [Mass ratio] 15 ratio Normal 7 - 27 ratio AO ADM SS WBC (Bld) [#/Vol] 4.1 103/mcL Low 4.6 - 10.8 10^3/mcL AO Workflow SS CNPSusan 08-31-2023 CNPN Telephone (RHBATH) -------- CRYS FRANKS ([id number]) 1975 F Date Time Provider Department 08/31/23 [facility] During your visit today, we recorded the following information about you: Julisa Jimenez LPN 08/31/2023 2:23 PM Signed Patient left vm stating she has bruises from nowhere and all these weird red dots. Call placed to patient, no answer. Left message for patient to contact PCP also. ANDREA Gan Niharika, MD 08/31/2023 2:25 PM Signed Advise labs jaiden Go to ER if symptoms worsen Julisa Jimenez LPN 08/31/2023 2:44 PM Addendum Patient states she will not be able to get the lab testing until next week because she does not transportation. Patient is going to ask her next door neighbor to take her to the ER. Stressed importance of not waiting until next week. Patient verbalized understanding. Patient will call next week with update. ANDREA Gan Tina, LPN 09/26/2023 7:51 AM Signed Spoke with patient and discussed we have not received lab results. Patient states she called them twice and our office has called several times as well. Julisa Jimenez LPN Allergies As of Date: 08/31/2023 Noted Allergy Reaction DOXYCYCLINE 08/10/2023 2 - Rash 10 - Anaphylaxis 11 - Vomiting Comments: Red spots inside mouth, tongue swelling. Rash distributed over entire body. Denies SOB. LITHIUM 05/22/2023 1 - Mental Status Change SHELLFISH DERIVED 10/12/2014 14 - Other: See Comments 10 - Anaphylaxis Comments: THROAT SWELLING Seafood--THROAT SWELLS VENOM-HONEY BEE 08/11/2019 16 - Unknown VENOM-WASP 08/11/2019 16 - Unknown CARAFATE (SUCRALFATE) 08/18/2021 4 - Hives Comments: Hives and Vomiting LATEX 11/20/2016 2 - Rash 4 - Hives ADHESIVE TAPE (ROSINS) 01/19/2016 2 - Rash ALEVE (NAPROXEN SODIUM) 11/13/2017 14 - Other: See Comments BACTRIM (SULFAMETHOXAZOLE-TRIMET H*08/10/2017 14 - Other: See Comments Comments: severe headaches and nosebleeds CIPRO (CIPROFLOXACIN HCL) 10/23/2021 2 - Rash ERYTHROMYCIN 01/19/2016 2 - Rash FLAGYL (METRONIDAZOLE HCL) 01/19/2016 14 - Other: See Comments Comments: THROAT SWELLING IODINE 01/19/2016 14 - Other: See Comments Comments: THROAT SWELL NAPROXYN (NAPROXEN) 01/19/2016 14 - Other: See Comments Comments: HEART STOPPED NOVACAINE (PROCAINE) 03/02/2017 14 - Other: See Comments Comments: Does not work ONDANSETRON 09/26/2016 14 - Other: See Comments Comments: headache PENICILLINS 02/02/2016 14 - Other: See Comments Comments: THROAT SWELLING PREGABALIN 01/27/2015 7 - Swelling Comments: Facial swelling, very irritable WELLBUTRIN (BUPROPION HCL) 04/11/2018 14 - Other: See Comments Comments: Zombie like state Date Reviewed: 08/10/2023 Reviewed by: Julisa Jimenez LPN - Fully Assessed Reason for Visit: Patient Update [1234] Prescriptions as of 09/26/2023 - methotrexate 2.5 mg tablet take 8 tablets by mouth once a week - cholecalciferol, Vitamin D3, (VITAMIN D3) 1,250 mcg (50,000 unit) cap capsule TAKE 1 CAPSULE BY MOUTH EVERY WEEK - hydrOXYchloroQUINE (PLAQUENIL) 200 mg tablet take 1 tablet by mouth twice a day - folic acid 1 mg tablet take 1 tablet by mouth daily - ondansetron (ZOFRAN ODT ORAL) Take 4 mg by mouth every 6 hours as needed. - DOCUSATE SODIUM ORAL Take 100 mg by mouth two times a day. - fremanezumab-vfrm (AJOVY SYRINGE) 225 mg/1.5 mL syringe Inject 225 mg subcutaneously once every month. Do not shake. - gabapentin (NEURONTIN) 600 mg tablet Take 1 tablet by mouth three times daily for 30 days. Do not start before March 09, 2022. - scopolamine (TRANSDERM-SCOP) patch 1.5 mg/72 hr (delivers 1 mg over 3 days) Apply 1 Patch as directed every 72 hours. - baclofen (LIORESAL) 10 mg tablet TAKE 1 TABLET BY MOUTH UP TO THREE TIMES A DAY NEEDED FOR PAINFUL MUSCLE SPASM - QUEtiapine (SEROQUEL) 200 mg tablet Take 700 mg by mouth daily at bedtime. 700mg daily - pantoprazole DR (PROTONIX) 40 mg tablet TAKE 1 TABLET BY MOUTH DAILY 30 MINUTES BEFORE A MEAL - prazosin (MINIPRESS) 5 mg cap Take 4 mg by mouth daily at bedtime. - hydrOXYzine pamoate (VISTARIL) 50 mg capsule Take 50 mg by mouth two times a day as needed. - topiramate (TOPAMAX) 200 mg tablet Take 200 mg by mouth daily at bedtime. - dicyclomine (BENTYL) 10 mg capsule TAKE 1 CAPSULE BY MOUTH FOUR TIMES A DAY BEFORE MEALS AND AT BEDTIME - levETIRAcetam (KEPPRA) 500 mg tablet TAKE 1 TABLET BY MOUTH TWICE A DAY - simvastatin (ZOCOR) 20 mg tablet Take 1 tablet by mouth daily at bedtime. - promethazine (PHENERGAN) 25 mg tablet take 1 tablet by mouth every 6 hours if needed - carBAMazepine (TEGRETOL) 200 mg tablet take 1 tablet by mouth in am and 2 at bedtime. Rx'd by Aliza Nieves . For mood and seizures. Problem List As Of Date 08/31/2023 Noted Resolved Chronic right shoulder pain [M25.511, G89.29] 02/02/2016 Myalgi (more content not included)... Normal [facility] 08-17-2023 [facility] Telephone (RADHAUHWCarla ) -------- CRYS FRANKS ([id number]) 1975 F Date Time Provider Department 08/17/23 TRISH ADAMES During your visit today, we recorded the following information about you: Radha Molina LPN 08/17/2023 3:22 PM Signed Reached out to patient per Julisa's request and no answer. LM asking to return call. Radha Molina LPN Allergies As of Date: 08/17/2023 Noted Allergy Reaction DOXYCYCLINE 08/10/2023 2 - Rash 10 - Anaphylaxis 11 - Vomiting Comments: Red spots inside mouth, tongue swelling. Rash distributed over entire body. Denies SOB. LITHIUM 05/22/2023 1 - Mental Status Change SHELLFISH DERIVED 10/12/2014 14 - Other: See Comments 10 - Anaphylaxis Comments: THROAT SWELLING Seafood--THROAT SWELLS VENOM-HONEY BEE 08/11/2019 16 - Unknown VENOM-WASP 08/11/2019 16 - Unknown CARAFATE (SUCRALFATE) 08/18/2021 4 - Hives Comments: Hives and Vomiting LATEX 11/20/2016 2 - Rash 4 - Hives ADHESIVE TAPE (ROSINS) 01/19/2016 2 - Rash ALEVE (NAPROXEN SODIUM) 11/13/2017 14 - Other: See Comments BACTRIM (SULFAMETHOXAZOLE-TRIMET H*08/10/2017 14 - Other: See Comments Comments: severe headaches and nosebleeds CIPRO (CIPROFLOXACIN HCL) 10/23/2021 2 - Rash ERYTHROMYCIN 01/19/2016 2 - Rash FLAGYL (METRONIDAZOLE HCL) 01/19/2016 14 - Other: See Comments Comments: THROAT SWELLING IODINE 01/19/2016 14 - Other: See Comments Comments: THROAT SWELL NAPROXYN (NAPROXEN) 01/19/2016 14 - Other: See Comments Comments: HEART STOPPED NOVACAINE (PROCAINE) 03/02/2017 14 - Other: See Comments Comments: Does not work ONDANSETRON 09/26/2016 14 - Other: See Comments Comments: headache PENICILLINS 02/02/2016 14 - Other: See Comments Comments: THROAT SWELLING PREGABALIN 01/27/2015 7 - Swelling Comments: Facial swelling, very irritable WELLBUTRIN (BUPROPION HCL) 04/11/2018 14 - Other: See Comments Comments: Matteo like state Date Reviewed: 08/10/2023 Reviewed by: Julisa Jimenez LPN - Fully Assessed Prescriptions as of 09/19/2023 - cholecalciferol, Vitamin D3, (VITAMIN D3) 1,250 mcg (50,000 unit) cap capsule TAKE 1 CAPSULE BY MOUTH EVERY WEEK - methotrexate 2.5 mg tablet Take 8 tablets by mouth one time a week. - hydrOXYchloroQUINE (PLAQUENIL) 200 mg tablet take 1 tablet by mouth twice a day - folic acid 1 mg tablet take 1 tablet by mouth daily - ondansetron (ZOFRAN ODT ORAL) Take 4 mg by mouth every 6 hours as needed. - DOCUSATE SODIUM ORAL Take 100 mg by mouth two times a day. - fremanezumab-vfrm (AJOVY SYRINGE) 225 mg/1.5 mL syringe Inject 225 mg subcutaneously once every month. Do not shake. - gabapentin (NEURONTIN) 600 mg tablet Take 1 tablet by mouth three times daily for 30 days. Do not start before March 09, 2022. - scopolamine (TRANSDERM-SCOP) patch 1.5 mg/72 hr (delivers 1 mg over 3 days) Apply 1 Patch as directed every 72 hours. - baclofen (LIORESAL) 10 mg tablet TAKE 1 TABLET BY MOUTH UP TO THREE TIMES A DAY NEEDED FOR PAINFUL MUSCLE SPASM - QUEtiapine (SEROQUEL) 200 mg tablet Take 700 mg by mouth daily at bedtime. 700mg daily - pantoprazole DR (PROTONIX) 40 mg tablet TAKE 1 TABLET BY MOUTH DAILY 30 MINUTES BEFORE A MEAL - prazosin (MINIPRESS) 5 mg cap Take 4 mg by mouth daily at bedtime. - hydrOXYzine pamoate (VISTARIL) 50 mg capsule Take 50 mg by mouth two times a day as needed. - topiramate (TOPAMAX) 200 mg tablet Take 200 mg by mouth daily at bedtime. - dicyclomine (BENTYL) 10 mg capsule TAKE 1 CAPSULE BY MOUTH FOUR TIMES A DAY BEFORE MEALS AND AT BEDTIME - levETIRAcetam (KEPPRA) 500 mg tablet TAKE 1 TABLET BY MOUTH TWICE A DAY - simvastatin (ZOCOR) 20 mg tablet Take 1 tablet by mouth daily at bedtime. - promethazine (PHENERGAN) 25 mg tablet take 1 tablet by mouth every 6 hours if needed - carBAMazepine (TEGRETOL) 200 mg tablet take 1 tablet by mouth in am and 2 at bedtime. Rx'd by Aliza Nieves . For mood and seizures. 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 Normal [facility] .Auto Diffon 08-13-2023 Basophil, Absolute 0.0 10 3/mcL Normal 0.0-0.2 [facility] ([place]) Comment on above: Performed By: #### F T4, HIVRP, TSH, MMA #### [place] [address] #### B12, SPE #### [address] [address] Basophils/100 WBC (Bld) 0.7 % Normal 0.0-2.5 A [facility] ([place]) Comment on above: Performed By: #### F T4, HIVRP, TSH, MMA #### [place] [address] #### B12, SPE #### [address] [address] Eosinophil, Absolute 0.1 10 3/mcL Normal 0.0-0.4 [facility] ([place]) Comment on above: Performed By: #### F T4, HIVRP, TSH, MMA #### [place] [address] #### B12, SPE #### [address] [address] Eosinophils/100 WBC (Bld) 2.6 % Normal 0.0-7.0 [facility] ([place]) Comment on above: Performed By: #### F T4, HIVRP, TSH, MMA #### [place] [address] #### B12, SPE #### [address] [address] Lymphocyte, Absolute 1.5 10 3/mcL Normal 0.8-3.9 [facility] ([place]) Comment on above: Performed By: #### F T4, HIVRP, TSH, MMA #### [place] [address] #### B12, SPE #### [address] [address] Lymphocytes/100 WBC (Bld) 29.2 % Normal 10.0-50.0 [facility] ([place]) Comment on above: Performed By: #### F T4, HIVRP, TSH, MMA #### [place] [address] #### B12, SPE #### [address] [address] Monocyte, Absolute 0.3 10 3/mcL Normal 0.2-1.0 [facility] ([place]) Comment on above: Performed By: #### F T4, HIVRP, TSH, MMA #### [place] [address] #### B12, SPE #### [address] [address] Monocytes/100 WBC (Bld) 5.1 % Normal 1.7-13.0 [facility] ([place]) Comment on above: Performed By: #### F T4, HIVRP, TSH, MMA #### [place] [address] #### B12, SPE #### [address] [address] Neutrophils/100 WBC (Bld) 62.4 % Normal 37.0-80.0 [facility] ([place]) Comment on above: Performed By: #### F T4, HIVRP, TSH, MMA #### [place] [address] #### B12, SPE #### [address] [address] .GFRon 08-13-2023 GFR 77 ml/min/1.73sqm Normal [facility] ([place]) Comment on above: Result Comment: GFR Population mean for , Non- Americans Ages 20-29 = 116 mL/min/1.73 sq.m. Ages 30-39 = 107 mL/min/1.73 sq.m. Ages 40-49 = 99 mL/min/1.73 sq.m. Ages 50-59 = 93 mL/min/1.73 sq.m. Ages 60-69 = 85 mL/min/1.73 sq.m. Ages 70+ = 75 mL/min/1.73 sq.m. Chronic Kidney Disease: Less than 60 mL/min/1.73 square meters End Stage Renal Disease: Less than 15 mL/min/1.73 square meters Performed By: #### F T4, HIVRP, TSH, MMA #### [address] [address] #### B12, SPE #### [address] [address] GFR Non- 63 ml/min/1.73sqm Normal [facility] ([place]) Comment on above: Result Comment: GFR Population mean for , Non- Americans Ages 20-29 = 116 mL/min/1.73 sq.m. Ages 30-39 = 107 mL/min/1.73 sq.m. Ages 40-49 = 99 mL/min/1.73 sq.m. Ages 50-59 = 93 mL/min/1.73 sq.m. Ages 60-69 = 85 mL/min/1.73 sq.m. Ages 70+ = 75 mL/min/1.73 sq.m. Chronic Kidney Disease: Less than 60 mL/min/1.73 square meters End Stage Renal Disease: Less than 15 mL/min/1.73 square meters Performed By: #### F T4, HIVRP, TSH, MMA #### [address] [address] #### B12, SPE #### [place] [address] .MDWon 08-13-2023 Monocyte Distribution Width 17.61 Normal 0.00-20.00 [facility] ([place]) Comment on above: Result Comment: For ED adult patients suspected of sepsis, MDW<=20.0 does not rule out sepsis or risk of sepsis Performed By: #### F T4, HIVRP, TSH, MMA #### [place] [address] #### B12, SPE #### [place] [address] .NEUABSon 08-13-2023 Neutrophil, Absolute 3.1 10 3/mcL Normal 2.9-6.2 [facility] ([place]) Comment on above: Performed By: #### F T4, HIVRP, TSH, MMA #### [place] [address] #### B12, SPE #### [place] [address] .Urinalysis Microscopic (AO) on 08-13-2023 UA Mucous 2+ /hpf Normal [facility] ([place]) Comment on above: Performed By: #### F T4, HIVRP, TSH, MMA #### [place] [address] #### B12, SPE #### [place] [address] UA RBC 0-5 Abnormal None Seen [facility] ([place]) Comment on above: Performed By: #### F T4, HIVRP, TSH, MMA #### [place] [address] #### B12, SPE #### [place] [address] UA Squam Epithelial 5-10 Abnormal None Seen [facility] ([place]) Comment on above: Performed By: #### F T4, HIVRP, TSH, MMA #### [place] [address] #### B12, SPE #### [place] [address] UA WBC 0-5 Abnormal None Seen [facility] ([place]) Comment on above: Performed By: #### F T4, HIVRP, TSH, MMA #### [place] [address] #### B12, SPE #### [place] [address] CBCon 08-13-2023 Erythrocyte distribution width (RBC) [Ratio] 14.2 % Normal 11.5-14.5 [facility] ([place]) Comment on above: Performed By: #### F T4, HIVRP, TSH, MMA #### [place] [address] #### B12, SPE #### [place] [address] Hematocrit (Bld) [Volume fraction] 33.6 % Low 37.0-47.0 [facility] ([place] Comment on above: Performed By: #### F T4, HIVRP, TSH, MMA #### [place] [address] #### B12, SPE #### [place] [address] Hgb 11.8 G/dL Low 12.0-16.0 [facility] ([place] Comment on above: Performed By: #### F T4, HIVRP, TSH, MMA #### [place] [address] #### B12, SPE #### [place] [address] MCH (RBC) [Entitic mass] 35.8 pg High 27.0-31.2 [facility] ([place] Comment on above: Performed By: #### F T4, HIVRP, TSH, MMA #### [place] [address] #### B12, SPE #### [place] [address] MCHC 35.0 G/dL Normal 33.0-37.0 [facility] ([place] Comment on above: Performed By: #### F T4, HIVRP, TSH, MMA #### [place] [address] #### B12, SPE #### [place] [address] MCV (RBC) [Entitic vol] 102.4 fL High 80.0-94.0 A [facility] ([place]) Comment on above: Performed By: #### F T4, HIVRP, TSH, MMA #### [place] [address] #### B12, SPE #### [place] [address] Platelet 167 10 3/mcL Normal 130-400 [facility] ([place] Comment on above: Performed By: #### F T4, HIVRP, TSH, MMA #### [place] [address] #### B12, SPE #### [place] [address] Platelet mean volume (Bld) [Entitic vol] 9.0 fL Normal 7.4-10.4 [facility] [place] Comment on above: Performed By: #### F T4, HIVRP, TSH, MMA #### [place] [address] #### B12, SPE #### [place] [address] RBC 3.29 10 6/mcL Low 4.20-5.40 [facility] ([place] Comment on above: Performed By: #### F T4, HIVRP, TSH, MMA #### [place] [address] #### B12, SPE #### [place] [address] WBC 5.0 10 3/mcL Normal 4.6-10.8 [facility] ([place] Comment on above: Performed By: #### F T4, HIVRP, TSH, MMA #### [place] [id number] #### B12, SPE #### [address] [address] CMPon 08-13-2023 ALT [Catalytic activity/Vol] 15 U/L Normal 14-59 [facility] [place] Comment on above: Performed By: #### F T4, HIVRP, TSH, MMA #### [place] [address] #### B12, SPE #### [place] [address] Albumin Level 3.2 G/dL Low 3.5-5.0 [facility] ([place] Comment on above: Performed By: #### F T4, HIVRP, TSH, MMA #### [place] [address] #### B12, SPE #### [place] [address] Albumin/Globulin [Mass ratio] 0.9 {ratio} Low 1.1-2.5 [facility] [place] Comment on above: Performed By: #### F T4, HIVRP, TSH, MMA #### [place] [address] #### B12, SPE #### [place] [address] ALP [Catalytic activity/Vol] 96 U/L Normal 40-135 [facility] ([place] Comment on above: Performed By: #### F T4, HIVRP, TSH, MMA #### [place] [address] #### B12, SPE #### [place] [address] AST [Catalytic activity/Vol] 12 U/L Normal 10-40 [facility] ([place] Comment on above: Performed By: #### F T4, HIVRP, TSH, MMA #### [place] [address] #### B12, SPE #### [place] [address] Bili Total 0.2 mg/dL Normal 0.2-1.0 [facility] ([place] Comment on above: Result Comment: Use of this assay is not recommended for patients undergoing treatment with eltrombopag due to the potential for falsely elevated results. Performed By: #### F T4, HIVRP, TSH, MMA #### [place] [address] #### B12, SPE #### [address] [address] BUN/Creatinine Ratio 12 ratio Normal 7-27 [facility] ([place]) Comment on above: Performed By: #### F T4, HIVRP, TSH, MMA #### [place] [address] #### B12, SPE #### [address] [address] Calcium [Mass/Vol] 8.1 mg/dL Low 8.4-10.2 [facility] ([place]) Comment on above: Performed By: #### F T4, HIVRP, TSH, MMA #### [place] [address] #### B12, SPE #### [address] [address] Chloride [Moles/Vol] 109 mmol/L High 98-107 [facility] ([place]) Comment on above: Performed By: #### F T4, HIVRP, TSH, MMA #### [place] [address] #### B12, SPE #### [address] [address] CO2 [Moles/Vol] 26 mmol/L Normal 22-29 [facility] ([place] Comment on above: Performed By: #### F T4, HIVRP, TSH, MMA #### [place] [address] #### B12, SPE #### [address] [address] Creatinine [Mass/Vol] 0.95 mg/dL Normal 0.55-1.02 [facility] ([place]) Comment on above: Performed By: #### F T4, HIVRP, TSH, MMA #### [place] [address] #### B12, SPE #### [address] [address] Electrolyte Balance 9.0 mEq/L Normal 4.0-15.0 [facility] ([place]) Comment on above: Performed By: #### F T4, HIVRP, TSH, MMA #### [place] [address] #### B12, SPE #### [place] [address] Globulin 3.4 G/dL Normal [facility] ([place] Comment on above: Performed By: #### F T4, HIVRP, TSH, MMA #### [place] [address] #### B12, SPE #### [place] [address] Glucose [Mass/Vol] 98 mg/dL Normal 70-105 [facility] ([place]) Comment on above: Performed By: #### F T4, HIVRP, TSH, MMA #### [place] [address] #### B12, SPE #### [place] [address] Potassium [Moles/Vol] 4.0 mmol/L Normal 3.5-5.1 [facility] ([place] Comment on above: Performed By: #### F T4, HIVRP, TSH, MMA #### [place] [address] #### B12, SPE #### [place] [address] Sodium [Moles/Vol] 144 mmol/L Normal 136-145 [facility] ([place]) Comment on above: Performed By: #### F T4, HIVRP, TSH, MMA #### [place] [address] #### B12, SPE #### [address] [address] Total Protein 6.6 G/dL Normal 6.4-8.2 [facility] ([place] Comment on above: Performed By: #### F T4, HIVRP, TSH, MMA #### [place] [id number] [place], [place] [address] #### B12, SPE #### [address] [address] Urea nitrogen [Mass/Vol] 11 mg/dL Normal 7-18 [facility] ([place] Comment on above: Performed By: #### F T4, HIVRP, TSH, MMA #### [place] [address] #### B12, SPE #### [place] [address] LABORATORYOrdered By: SYSTEM SYSTEM on 08-13-2023 Albumin BCP dye [Mass/Vol] 3.2 G/dL Low 3.5 - 5.0 G/dL AO ADM SS Albumin/Globulin [Mass ratio] 0.9 {ratio} Low 1.1 - 2.5 ratio AO ADM SS ALP [Catalytic activity/Vol] 96 U/L Normal 40 - 135 U/L AO ADM SS ALT With P-5'-P [Catalytic activity/Vol] 15 U/L Normal 14 - 59 U/L AO ADM SS AST With P-5'-P [Catalytic activity/Vol] 12 U/L Normal 10 - 40 U/L AO ADM SS Basophil, Absolute 0.0 103/mcL Normal 0.0 - 0.2 10^3/mcL AO Workflow SS Basophils/100 WBC (Bld) 0.7 % Normal 0.0 - 2.5 % AO Workflow SS Bilirubin [Mass/Vol] 0.2 mg/dL Normal 0.2 - 1 .0 mg/dL AO ADM SS Comment on above: Interpretive Data: U se of this assay is not recommended for patients undergoing treatment with eltrombopag due to the potential for falsely elevated results. Calcium [Mass/Vol] 8.1 mg/dL Low 8.4 - 10. 2 mg/dL AO ADM SS Chloride [Moles/Vol] 109 mmol/L High 98 - 10 7 mmol/L AO ADM SS CO2 [Moles/Vol] 26 mmol/L Normal 22 - 29 mmol/L AO ADM SS Creatinine [Mass/Vol] 0.95 mg/dL Normal 0.55 - 1.02 mg/dL AO ADM SS Electrolyte Balance 9.0 mEq/L Normal 4.0 - 15 .0 mEq/L AO ADM SS Eosinophil, Absolute 0.1 103/mcL Normal 0.0 - 0 .4 10^3/mcL AO Workflow SS Eosinophils/100 WBC (Bld) 2.6 % Normal 0.0 - 7.0 % AO Workflow SS Erythrocyte distribution width (RBC) [Ratio] 14.2 % Normal 11.5 - 14.5 % AO Workflow SS GFR/1.73 sq M.predicted among blacks MDRD (S/P/Bld) [Vol rate/Area] 77 ml/min/1.73sqm Invalid Interpretation Code AO Chemistry S Comment on above: Interpretive Data: GFR Population mean for , Non- Americans Ages 20-29 = 116 mL/min/1.73 sq.m. Ages 30-39 = 107 mL/min/1.73 sq.m. Ages 40-49 = 99 mL/min/1.73 sq.m. Ages 50-59 = 93 mL/min/1.73 sq.m. Ages 60-69 = 85 mL/min/1.73 sq.m. Ages 70+ = 75 mL/min/1.73 sq.m. Chronic Kidney Disease: Less than 60 mL/min/1.73 square meters End Stage Renal Disease: Less than 15 mL/min/1.73 square meters GFR/1.73 sq M.predicted among non-blacks MDRD (S/P/Bld) [Vol rate/Area] 63 ml/min/1.73sqm Invalid Interpretation Code AO Chemistry S Comment on above: Interpretive Data: GFR Population mean for , Non- Americans Ages 20-29 = 116 mL/min/1.73 sq.m. Ages 30-39 = 107 mL/min/1.73 sq.m. Ages 40-49 = 99 mL/min/1.73 sq.m. Ages 50-59 = 93 mL/min/1.73 sq.m. Ages 60-69 = 85 mL/min/1.73 sq.m. Ages 70+ = 75 mL/min/1.73 sq.m. Chronic Kidney Disease: Less than 60 mL/min/1.73 square meters End Stage Renal Disease: Less than 15 mL/min/1.73 square meters Globulin 3.4 G/dL Invalid Interpretation Code AO ADM SS Glucose [Mass/Vol] 98 mg/dL Normal 70 - 105 mg/dL AO ADM SS Hematocrit (Bld) [Volume fraction] 33.6 % Low 37.0 - 47.0 % AO Workflow SS Hemoglobin (Bld) [Mass/Vol] 11.8 G/dL Low 12.0 - 16.0 G/dL AO Workflow SS Lipase [Catalytic activity/Vol] 17 U/L Normal 16 - 77 U/L AO ADM SS Lymphocyte, Absolute 1.5 103/mcL Normal 0.8 - 3 .9 10^3/mcL AO Workflow SS Lymphocytes/100 WBC (Bld) 29.2 % Normal 10.0 - 50.0 % AO Workflow SS Magnesium [Mass/Vol] 1.7 mg/dL Low 1.8 - 2 .4 mg/dL AO ADM SS MCH (RBC) [Entitic mass] 35.8 pg High 27.0 - 31.2 pg AO Workflow SS MCHC 35.0 G/dL Normal 33.0 - 37.0 G/dL AO Workflow SS MCV (RBC) [Entitic vol] 102.4 fL High 80.0 - 94.0 fL AO Workflow SS Monocyte distribution width Auto (Bld) [Entitic vol] 17.61 1 Normal 0.00 - 20.00 AO Workflow SS Comment on above: Result Comment: For ED adult patients suspected of sepsis, MDW<=20.0 does not rule out sepsis or risk of sepsis Monocyte, Absolute 0.3 103/mcL Normal 0.2 - 1.0 10^3/mcL AO Workflow SS Monocytes/100 WBC (Bld) 5.1 % Normal 1.7 - 13.0 % AO Workflow SS Neutrophil, Absolute 3.1 103/mcL Normal 2.9 - 6 .2 10^3/mcL AO Workflow SS Neutrophils/100 WBC (Bld) 62.4 % Normal 37.0 - 80.0 % AO Workflow SS Platelet mean volume (Bld) [Entitic vol] 9.0 fL Normal 7.4 - 10.4 fL AO Workflow SS Platelets (Bld) [#/Vol] 167 103/mcL Normal 130 - 400 10^3/mcL AO Workflow SS Potassium [Moles/Vol] 4.0 mmol/L Normal 3.5 - 5.1 mmol/L AO ADM SS Protein [Mass/Vol] 6.6 G/dL Normal 6.4 - 8.2 G/dL AO ADM SS RBC (Bld) [#/Vol] 3.29 106/mcL Low 4.20 - 5.4 0 10^6/mcL AO Workflow SS Sodium [Moles/Vol] 144 mmol/L Normal 136 - 145 mmol/L AO ADM SS Urea nitrogen [Mass/Vol] 11 mg/dL Normal 7 - 18 mg/dL AO ADM SS Urea nitrogen/Creatinine [Mass ratio] 12 ratio Normal 7 - 27 ratio AO ADM SS WBC (Bld) [#/Vol] 5.0 103/mcL Normal 4.6 - 10.8 10^3/mcL AO Workflow SS LABORATORYOrdered By: Александр pike on 08-13-2023 Appearance (U) Slightly Cloudy *ABN* (08/13/23 8:36 AM) Invalid Interpretation Code Clear AO Auto Urine SS Bilirubin Ql (U) Small *ABN* (08/13/23 8:36 AM) Invalid Interpretation Code Negative AO Auto Urine SS Color (U) Yellow (08/13/23 8:36 AM) Normal AO Auto Urine SS Glucose Test strip (U) [Mass/Vol] Negative Normal Negative AO Auto Urine SS Hemoglobin Auto test strip (U) [Mass/Vol] Negative (08/13/23 8:36 AM) Normal Negative AO Auto Urine SS Ketones Ql (U) Negative Normal Negative AO Auto Urine SS UA Leuk Est Negative (08/13/23 8:36 AM) Normal Negative AO Auto Urine SS UA Mucous 2+ /HPF Normal AO Auto Urine SS UA Nitrite Negative (08/13/23 8:36 AM) Normal Negative AO Auto Urine SS UA pH 5.5 (08/13/23 8:36 AM) Normal 5.0 - 8.0 AO Auto Urine SS UA Protein 30 mg/dL Normal Negative AO Auto Urine SS UA RBC 0-5 /HPF Invalid Interpretation Code None Seen AO Auto Urine SS UA Spec Grav >=1.030 *ABN* (08/13/23 8:36 AM) Invalid Interpretation Code 1.015-1.025 AO Auto Urine SS UA Specimen Type Clean Catch (08/13/23 8:36 AM) Normal AO Auto Urine SS UA Squam Epithelial 5-10 /HPF Invalid Interpretation Code None Seen AO Auto Urine SS UA Urobilinogen 0.2 E.U./dL Normal 0.2-1.0 AO Auto Urine SS WBC LM.HPF (Urine sed) [#/Area] 0-5 /HPF Invalid Interpretation Code None Seen AO Auto Urine SS LIPon 08-13-2023 Lipase Level 17 U/L Normal 16-77 [facility] ([place] Comment on above: Performed By: #### F T4, HIVRP, TSH, MMA #### [place] [address] #### B12, SPE #### [place] [address] MGon 08-13-2023 Magnesium [Mass/Vol] 1.7 mg/dL Low 1.8-2.4 [facility] ([place]) Comment on above: Performed By: #### F T4, HIVRP, TSH, MMA #### [place] [address] #### B12, SPE #### [place] [address] UAon 08-13-2023 Color (U) Yellow Normal [facility] ([place] Comment on above: Performed By: #### F T4, HIVRP, TSH, MMA #### [place] [address] #### B12, SPE #### [place] [address] Glucose (U) [Mass/Vol] Negative Normal Negative [facility] ([place]) Comment on above: Performed By: #### F T4, HIVRP, TSH, MMA #### [place] [address] #### B12, SPE #### [place] [address] Ketones Ql (U) Negative Normal Negative [facility] ([place] Comment on above: Performed By: #### F T4, HIVRP, TSH, MMA #### [place] [address] #### B12, SPE #### [place] [address] UA Appear Slightly Cloudy Abnormal Clear [facility] ([place] Comment on above: Performed By: #### F T4, HIVRP, TSH, MMA #### [place] [address] #### B12, SPE #### [place] [address] UA Bili Small Abnormal Negative [facility] ([place] Comment on above: Performed By: #### F T4, HIVRP, TSH, MMA #### [place] [address] #### B12, SPE #### [place] [address] UA Blood Negative Normal Negative [facility] ([place] Comment on above: Performed By: #### F T4, HIVRP, TSH, MMA #### [place] [address] #### B12, SPE #### [place] [address] UA Leuk Est Negative Normal Negative [facility] [place] Comment on above: Performed By: #### F T4, HIVRP, TSH, MMA #### [place] [address] #### B12, SPE #### [place] [address] UA Nitrite Negative Normal Negative [facility] [place] Comment on above: Performed By: #### F T4, HIVRP, TSH, MMA #### [place] [address] #### B12, SPE #### [place] [address] UA pH 5.5 Normal 5.0 - 8.0 [facility] ([place] Comment on above: Performed By: #### F T4, HIVRP, TSH, MMA #### [place] [address] #### B12, SPE #### [place] [address] UA Protein 30 mg/dL Normal Negative [facility] ([place] Comment on above: Performed By: #### F T4, HIVRP, TSH, MMA #### [place] [address] #### B12, SPE #### [place] [address] UA Spec Grav >=1.030 Abnormal 1.015-1.025 [facility] ([place] Comment on above: Performed By: #### F T4, HIVRP, TSH, MMA #### [place] [address] #### B12, SPE #### [place] [address] UA Specimen Type Clean Catch Normal [facility] ([place] Comment on above: Performed By: #### F T4, HIVRP, TSH, MMA #### [place] [address] #### B12, SPE #### [place] [address] UA Urobilinogen 0.2 E.U./dL Normal 0.2-1.0 [facility] ([place] Comment on above: Performed By: #### F T4, HIVRP, TSH, MMA #### [place] [address] #### B12, SPE #### [place] [address] .Auto Diffon 08-09-2023 Basophil, Absolute 0.0 10 3/mcL Normal 0.0-0.2 [facility] ([place] Comment on above: Performed By: #### A ED, ADIFF, CBC, CMP, MDW, LIP, GFR #### [place] [address] Basophils/100 WBC (Bld) 0.9 % Normal 0.0-2.5 A [facility] ([place]) Comment on above: Performed By: #### A DE, ADIFF, CBC, CMP, MDW, LIP, GFR #### [address] [address] Eosinophil, Absolute 0.1 10 3/mcL Normal 0.0-0.4 [facility] ([place]) Comment on above: Performed By: #### A DE, ADIFF, CBC, CMP, MDW, LIP, GFR #### [address] [address] Eosinophils/100 WBC (Bld) 2.8 % Normal 0.0-7.0 [facility] ([place] Comment on above: Performed By: #### A DE, ADIFF, CBC, CMP, MDW, LIP, GFR #### [address] [address] Lymphocyte, Absolute 1.8 10 3/mcL Normal 0.8-3.9 [facility] ([place]) Comment on above: Performed By: #### A DE, ADIFF, CBC, CMP, MDW, LIP, GFR #### [address] [address] Lymphocytes/100 WBC (Bld) 42.4 % Normal 10.0-50.0 [facility] ([place] Comment on above: Performed By: #### A DE, ADIFF, CBC, CMP, MDW, LIP, GFR #### [address] [address] Monocyte, Absolute 0.3 10 3/mcL Normal 0.2-1.0 [facility] ([place] Comment on above: Performed By: #### A DE, ADIFF, CBC, CMP, MDW, LIP, GFR #### [address] [address] Monocytes/100 WBC (Bld) 6.1 % Normal 1.7-13.0 [facility] ([place]) Comment on above: Performed By: #### A DE, ADIFF, CBC, CMP, MDW, LIP, GFR #### [address] [address] Neutrophils/100 WBC (Bld) 47.8 % Normal 37.0-80.0 [facility] ([place] Comment on above: Performed By: #### A DE, ADIFF, CBC, CMP, MDW, LIP, GFR #### [address] [address] .GFRon 08-09-2023 GFR 85 ml/min/1.73sqm Normal [facility] ([place] Comment on above: Result Comment: GFR Population mean for , Non- Americans Ages 20-29 = 116 mL/min/1.73 sq.m. Ages 30-39 = 107 mL/min/1.73 sq.m. Ages 40-49 = 99 mL/min/1.73 sq.m. Ages 50-59 = 93 mL/min/1.73 sq.m. Ages 60-69 = 85 mL/min/1.73 sq.m. Ages 70+ = 75 mL/min/1.73 sq.m. Chronic Kidney Disease: Less than 60 mL/min/1.73 square meters End Stage Renal Disease: Less than 15 mL/min/1.73 square meters Performed By: #### A DE, ADIFF, CBC, CMP, MDW, LIP, GFR #### [address] [address] GFR Non- 70 ml/min/1.73sqm Normal [facility] ([place] Comment on above: Result Comment: GFR Population mean for , Non- Americans Ages 20-29 = 116 mL/min/1.73 sq.m. Ages 30-39 = 107 mL/min/1.73 sq.m. Ages 40-49 = 99 mL/min/1.73 sq.m. Ages 50-59 = 93 mL/min/1.73 sq.m. Ages 60-69 = 85 mL/min/1.73 sq.m. Ages 70+ = 75 mL/min/1.73 sq.m. Chronic Kidney Disease: Less than 60 mL/min/1.73 square meters End Stage Renal Disease: Less than 15 mL/min/1.73 square meters Performed By: #### A DE, ADIFF, CBC, CMP, MDW, LIP, GFR #### [place] [address] .MDWon 08-09-2023 Monocyte Distribution Width 18.47 Normal 0.00-20.00 [facility] ([place] Comment on above: Result Comment: For ED adult patients suspected of sepsis, MDW<=20.0 does not rule out sepsis or risk of sepsis Performed By: #### A DE, ADIFF, CBC, CMP, MDW, LIP, GFR #### [place] [address] .NEUABSon 08-09-2023 Neutrophil, Absolute 2.1 10 3/mcL Low 2.9-6.2 [facility] ([place]) Comment on above: Performed By: #### A DE, ADIFF, CBC, CMP, MDW, LIP, GFR #### [place] [address] CBCon 08-09-2023 Erythrocyte distribution width (RBC) [Ratio] 14.5 % Normal 11.5-14.5 [facility] ([place] Comment on above: Performed By: #### A DE, ADIFF, CBC, CMP, MDW, LIP, GFR #### [place] [address] Hematocrit (Bld) [Volume fraction] 33.8 % Low 37.0-47.0 [facility] [place] Comment on above: Performed By: #### A DE, ADIFF, CBC, CMP, MDW, LIP, GFR #### [place] [address] Hgb 11.5 G/dL Low 12.0-16.0 [facility] [place] Comment on above: Performed By: #### A DE, ADIFF, CBC, CMP, MDW, LIP, GFR #### [place] [address] MCH (RBC) [Entitic mass] 35.1 pg High 27.0-31.2 [facility] ([place] Comment on above: Performed By: #### A DE, ADIFF, CBC, CMP, MDW, LIP, GFR #### [address] [address] MCHC 34.2 G/dL Normal 33.0-37.0 [facility] ([place] Comment on above: Performed By: #### A DE, ADIFF, CBC, CMP, MDW, LIP, GFR #### [address] [address] MCV (RBC) [Entitic vol] 102.7 fL High 80.0-94.0 A [facility] ([place] Comment on above: Performed By: #### A DE, ADIFF, CBC, CMP, MDW, LIP, GFR #### [place] [address] Platelet 175 10 3/mcL Normal 130-400 [facility] [place] Comment on above: Performed By: #### A DE, ADIFF, CBC, CMP, MDW, LIP, GFR #### [address] [address] Platelet mean volume (Bld) [Entitic vol] 9.3 fL Normal 7.4-10.4 [facility] ([place] Comment on above: Performed By: #### A DE, ADIFF, CBC, CMP, MDW, LIP, GFR #### [address] [address] RBC 3.29 10 6/mcL Low 4.20-5.40 [facility] [place] Comment on above: Performed By: #### A DE, ADIFF, CBC, CMP, MDW, LIP, GFR #### [address] [address] WBC 4.4 10 3/mcL Low 4.6-10.8 [facility] [place] Comment on above: Performed By: #### A DE, ADIFF, CBC, CMP, MDW, LIP, GFR #### [address] [address] CMPon 08-09-2023 Albumin Level 3.2 G/dL Low 3.5-5.0 [facility] [place] Comment on above: Performed By: #### A DE, ADIFF, CBC, CMP, MDW, LIP, GFR #### [address] [address] Albumin/Globulin [Mass ratio] 0.9 {ratio} Low 1.1-2.5 [facility] [place] Comment on above: Performed By: #### A DE, ADIFF, CBC, CMP, MDW, LIP, GFR #### [place] [address] ALP [Catalytic activity/Vol] 100 U/L Normal 40-135 [facility] [place] Comment on above: Performed By: #### A DE, ADIFF, CBC, CMP, MDW, LIP, GFR #### [place] [address] ALT [Catalytic activity/Vol] 15 U/L Normal 14-59 [facility] [place] Comment on above: Performed By: #### A DE, ADIFF, CBC, CMP, MDW, LIP, GFR #### [place] [address] AST [Catalytic activity/Vol] 16 U/L Normal 10-40 [facility] [place] Comment on above: Performed By: #### A DE, ADIFF, CBC, CMP, MDW, LIP, GFR #### [address] [address] Bili Total 0.1 mg/dL Low 0.2-1.0 [facility] [place] Comment on above: Result Comment: Use of this assay is not recommended for patients undergoing treatment with eltrombopag due to the potential for falsely elevated results. Performed By: #### A DE, ADIFF, CBC, CMP, MDW, LIP, GFR #### [place] [address] BUN/Creatinine Ratio 17 ratio Normal 7-27 [facility] ([place] Comment on above: Performed By: #### A DE, ADIFF, CBC, CMP, MDW, LIP, GFR #### [place] [id number] Calcium [Mass/Vol] 8.4 mg/dL Normal 8.4-10.2 [facility] ([place] Comment on above: Performed By: #### A DE, ADIFF, CBC, CMP, MDW, LIP, GFR #### [address] [address] Chloride [Moles/Vol] 110 mmol/L High 98-107 [facility] ([place] Comment on above: Performed By: #### A DE, ADIFF, CBC, CMP, MDW, LIP, GFR #### [address] [address] CO2 [Moles/Vol] 25 mmol/L Normal 22-29 [facility] [place] Comment on above: Performed By: #### A DE, ADIFF, CBC, CMP, MDW, LIP, GFR #### [address] [address] Creatinine [Mass/Vol] 0.87 mg/dL Normal 0.55-1.02 [facility] ([place] Comment on above: Performed By: #### A DE, ADIFF, CBC, CMP, MDW, LIP, GFR #### [address] [address] Electrolyte Balance 11.0 mEq/L Normal 4.0-15.0 [facility] ([place] Comment on above: Performed By: #### A DE, ADIFF, CBC, CMP, MDW, LIP, GFR #### [address] [address] Globulin 3.4 G/dL Normal [facility] [place] Comment on above: Performed By: #### A DE, ADIFF, CBC, CMP, MDW, LIP, GFR #### [address] [address] Glucose [Mass/Vol] 89 mg/dL Normal 70-105 [facility] ([place] Comment on above: Performed By: #### A DE, ADIFF, CBC, CMP, MDW, LIP, GFR #### [address] [address] Potassium [Moles/Vol] 4.3 mmol/L Normal 3.5-5.1 [facility] ([place] Comment on above: Performed By: #### A DE, ADIFF, CBC, CMP, MDW, LIP, GFR #### [address] [address] Sodium [Moles/Vol] 146 mmol/L High 136-145 [facility] ([place] Comment on above: Performed By: #### A DE, ADIFF, CBC, CMP, MDW, LIP, GFR #### [address] [address] Total Protein 6.6 G/dL Normal 6.4-8.2 [facility] [place] Comment on above: Performed By: #### A DE, ADIFF, CBC, CMP, MDW, LIP, GFR #### [address] [address] Urea nitrogen [Mass/Vol] 15 mg/dL Normal 7-18 [facility] ([place] Comment on above: Performed By: #### A DE, ADIFF, CBC, CMP, MDW, LIP, GFR #### [address] [address] LABORATORYOrdered By: Velma Berry on 08-09-2023 Appearance (U) Clear (08/09/23 4:10 PM) Normal Clear AO Auto Urine SS Bilirubin Ql (U) Negative (08/09/23 4:10 PM) Normal Negative AO Auto Urine SS Color (U) Yellow (08/09/23 4:10 PM) Normal AO Auto Urine SS Glucose Test strip (U) [Mass/Vol] Negative Normal Negative AO Auto Urine SS Hemoglobin Auto test strip (U) [Mass/Vol] Negative (08/09/23 4:10 PM) Normal Negative AO Auto Urine SS Ketones Ql (U) Negative Normal Negative AO Auto Urine SS UA Leuk Est Negative (08/09/23 4:10 PM) Normal Negative AO Auto Urine SS UA Nitrite Negative (08/09/23 4:10 PM) Normal Negative AO Auto Urine SS UA pH 5.5 (08/09/23 4:10 PM) Normal 5.0 - 8.0 AO Auto Urine SS UA Protein Negative Normal Negative AO Auto Urine SS UA Spec Grav 1.025 (08/09/23 4:10 PM) Normal 1.015-1.025 AO Auto Urine SS UA Specimen Type Clean Catch (08/09/23 4:10 PM) Normal AO Auto Urine SS UA Urobilinogen 0.2 E.U./dL Normal 0.2-1.0 AO Auto Urine SS LABORATORYOrdered By: SYSTEM SYSTEM on 08-09-2023 Albumin BCP dye [Mass/Vol] 3.2 G/dL Low 3.5 - 5.0 G/dL AO ADM SS Albumin/Globulin [Mass ratio] 0.9 {ratio} Low 1.1 - 2.5 ratio AO ADM SS ALP [Catalytic activity/Vol] 100 U/L Normal 40 - 135 U/L AO ADM SS ALT With P-5'-P [Catalytic activity/Vol] 15 U/L Normal 14 - 59 U/L AO ADM SS AST With P-5'-P [Catalytic activity/Vol] 16 U/L Normal 10 - 40 U/L AO ADM SS Basophil, Absolute 0.0 103/mcL Normal 0.0 - 0.2 10^3/mcL AO Workflow SS Basophils/100 WBC (Bld) 0.9 % Normal 0.0 - 2.5 % AO Workflow SS Bilirubin [Mass/Vol] 0.1 mg/dL Low 0.2 - 1 .0 mg/dL AO ADM SS Comment on above: Interpretive Data: U se of this assay is not recommended for patients undergoing treatment with eltrombopag due to the potential for falsely elevated results. Calcium [Mass/Vol] 8.4 mg/dL Normal 8.4 - 10. 2 mg/dL AO ADM SS Chloride [Moles/Vol] 110 mmol/L High 98 - 10 7 mmol/L AO ADM SS CO2 [Moles/Vol] 25 mmol/L Normal 22 - 29 mmol/L AO ADM SS Creatinine [Mass/Vol] 0.87 mg/dL Normal 0.55 - 1.02 mg/dL AO ADM SS Electrolyte Balance 11.0 mEq/L Normal 4.0 - 15 .0 mEq/L AO ADM SS Eosinophil, Absolute 0.1 103/mcL Normal 0.0 - 0 .4 10^3/mcL AO Workflow SS Eosinophils/100 WBC (Bld) 2.8 % Normal 0.0 - 7.0 % AO Workflow SS Erythrocyte distribution width (RBC) [Ratio] 14.5 % Normal 11.5 - 14.5 % AO Workflow SS GFR/1.73 sq M.predicted among blacks MDRD (S/P/Bld) [Vol rate/Area] 85 ml/min/1.73sqm Invalid Interpretation Code AO Chemistry S Comment on above: Interpretive Data: GFR Population mean for , Non- Americans Ages 20-29 = 116 mL/min/1.73 sq.m. Ages 30-39 = 107 mL/min/1.73 sq.m. Ages 40-49 = 99 mL/min/1.73 sq.m. Ages 50-59 = 93 mL/min/1.73 sq.m. Ages 60-69 = 85 mL/min/1.73 sq.m. Ages 70+ = 75 mL/min/1.73 sq.m. Chronic Kidney Disease: Less than 60 mL/min/1.73 square meters End Stage Renal Disease: Less than 15 mL/min/1.73 square meters GFR/1.73 sq M.predicted among non-blacks MDRD (S/P/Bld) [Vol rate/Area] 70 ml/min/1.73sqm Invalid Interpretation Code AO Chemistry S Comment on above: Interpretive Data: GFR Population mean for , Non- Americans Ages 20-29 = 116 mL/min/1.73 sq.m. Ages 30-39 = 107 mL/min/1.73 sq.m. Ages 40-49 = 99 mL/min/1.73 sq.m. Ages 50-59 = 93 mL/min/1.73 sq.m. Ages 60-69 = 85 mL/min/1.73 sq.m. Ages 70+ = 75 mL/min/1.73 sq.m. Chronic Kidney Disease: Less than 60 mL/min/1.73 square meters End Stage Renal Disease: Less than 15 mL/min/1.73 square meters Globulin 3.4 G/dL Invalid Interpretation Code AO ADM SS Glucose [Mass/Vol] 89 mg/dL Normal 70 - 105 mg/dL AO ADM SS Hematocrit (Bld) [Volume fraction] 33.8 % Low 37.0 - 47.0 % AO Workflow SS Hemoglobin (Bld) [Mass/Vol] 11.5 G/dL Low 12.0 - 16.0 G/dL AO Workflow SS Lipase [Catalytic activity/Vol] 34 U/L Normal 16 - 77 U/L AO ADM SS Lymphocyte, Absolute 1.8 103/mcL Normal 0.8 - 3 .9 10^3/mcL AO Workflow SS Lymphocytes/100 WBC (Bld) 42.4 % Normal 10.0 - 50.0 % AO Workflow SS MCH (RBC) [Entitic mass] 35.1 pg High 27.0 - 31.2 pg AO Workflow SS MCHC 34.2 G/dL Normal 33.0 - 37.0 G/dL AO Workflow SS MCV (RBC) [Entitic vol] 102.7 fL High 80.0 - 94.0 fL AO Workflow SS Monocyte distribution width Auto (Bld) [Entitic vol] 18.47 1 Normal 0.00 - 20.00 AO Workflow SS Comment on above: Result Comment: For ED adult patients suspected of sepsis, MDW<=20.0 does not rule out sepsis or risk of sepsis Monocyte, Absolute 0.3 103/mcL Normal 0.2 - 1.0 10^3/mcL AO Workflow SS Monocytes/100 WBC (Bld) 6.1 % Normal 1.7 - 13.0 % AO Workflow SS Neutrophil, Absolute 2.1 103/mcL Low 2.9 - 6 .2 10^3/mcL AO Workflow SS Neutrophils/100 WBC (Bld) 47.8 % Normal 37.0 - 80.0 % AO Workflow SS Platelet mean volume (Bld) [Entitic vol] 9.3 fL Normal 7.4 - 10.4 fL AO Workflow SS Platelets (Bld) [#/Vol] 175 103/mcL Normal 130 - 400 10^3/mcL AO Workflow SS Potassium [Moles/Vol] 4.3 mmol/L Normal 3.5 - 5.1 mmol/L AO ADM SS Protein [Mass/Vol] 6.6 G/dL Normal 6.4 - 8.2 G/dL AO ADM SS RBC (Bld) [#/Vol] 3.29 106/mcL Low 4.20 - 5.4 0 10^6/mcL AO Workflow SS Sodium [Moles/Vol] 146 mmol/L High 136 - 145 mmol/L AO ADM SS Urea nitrogen [Mass/Vol] 15 mg/dL Normal 7 - 18 mg/dL AO ADM SS Urea nitrogen/Creatinine [Mass ratio] 17 ratio Normal 7 - 27 ratio AO ADM SS WBC (Bld) [#/Vol] 4.4 103/mcL Low 4.6 - 10.8 10^3/mcL AO Workflow SS LIPon 08-09-2023 Lipase Level 34 U/L Normal 16-77 [facility] [place] Comment on above: Performed By: #### A DE, ADIFF, CBC, CMP, MDW, LIP, GFR #### [address] [address] UAon 08-09-2023 Color (U) Yellow Normal [facility] [place] Comment on above: Performed By: #### F T4, HIVRP, TSH, MMA #### [place] [address] #### B12, SPE #### [place] [address] Glucose (U) [Mass/Vol] Negative Normal Negative [facility] [place] Comment on above: Performed By: #### F T4, HIVRP, TSH, MMA #### [place] [address] #### B12, SPE #### [place] [address] Ketones Ql (U) Negative Normal Negative [facility] [place] Comment on above: Performed By: #### F T4, HIVRP, TSH, MMA #### [place] [address] #### B12, SPE #### [address] [address] UA Appear Clear Normal Clear [facility] [place] Comment on above: Performed By: #### F T4, HIVRP, TSH, MMA #### [place] [address] #### B12, SPE #### [address] [address] UA Blood Negative Normal Negative [facility] [place] Comment on above: Performed By: #### F T4, HIVRP, TSH, MMA #### [place] [address] #### B12, SPE #### [place] [address] UA Leuk Est Negative Normal Negative [facility] [place] Comment on above: Performed By: #### F T4, HIVRP, TSH, MMA #### [place] [address] #### B12, SPE #### [place] [address] UA Nitrite Negative Normal Negative [facility] [place] Comment on above: Performed By: #### F T4, HIVRP, TSH, MMA #### [place] [address] #### B12, SPE #### [place] [address] UA pH 5.5 Normal 5.0 - 8.0 [facility] [place] Comment on above: Performed By: #### F T4, HIVRP, TSH, MMA #### [place] [address] #### B12, SPE #### [place] [address] UA Protein Negative Normal Negative [facility] [place] Comment on above: Performed By: #### F T4, HIVRP, TSH, MMA #### [place] [address] #### B12, SPE #### [place] [address] UA Spec Grav 1.025 Normal 1.015-1.025 [facility] [place] Comment on above: Performed By: #### F T4, HIVRP, TSH, MMA #### [place] [address] #### B12, SPE #### [place] [address] UA Specimen Type Clean Catch Normal [facility] [place] Comment on above: Performed By: #### F T4, HIVRP, TSH, MMA #### [address] [address] #### B12, SPE #### [address] [address] UA Urobilinogen 0.2 E.U./dL Normal 0.2-1.0 [facility] [place] Comment on above: Performed By: #### F T4, HIVRP, TSH, MMA #### [address] [address] #### B12, SPE #### [address] [address] Urobilinogen (U) [Mass/Vol] Negative Normal Negative [facility] [place] Comment on above: Performed By: #### F T4, HIVRP, TSH, MMA #### [address] [address] #### B12, SPE #### [address] [address] US ABDOMEN LIMITEDon 024 US ABDOMEN LIMITED ORIGINAL EXAMINATION: RIGHT UPPER QUADRANT ULTRASOUND 08/09/2023 4:05 pm COMPARISON: 01/02/2023 HISTORY: ORDERING SYSTEM PROVIDED HISTORY: Reason for Exam: ruq pain, vomiting FINDINGS: Body habitus, bowel gas, and respiratory motion compromised examination. LIVER: Increased hepatic echogenicity. No intrahepatic biliary ductal dilatation. BILIARY SYSTEM: Minimal slightly echogenic material seen within the gallbladder. No cholelithiasis. No wall thickening. No pericholecystic edema. CBD is not dilated measuring 4 mm. RIGHT KIDNEY: The right kidney is grossly unremarkable without evidence of hydronephrosis. 10.1 cm in length. PANCREAS: Visualized portions of the pancreas are unremarkable. OTHER: No evidence of right upper quadrant ascites. IMPRESSION: No convincing sonographic evidence of acute cholecystitis. Gallbladder sludge versus artifact. Increased echogenicity of the liver which can be seen in hepatic steatosis or other diffuse hepatocellular process. I have personally reviewed the images of this examination and agree with the resident's findings and interpretation. Interpreted by: Jay Watkins Preliminary Report By: Noe Matta Electronically signed By Jay Watkins Dictated Date: 08/09/2023 4:14:53 PM Prelim Date: 08/09/2023 4:22:07 PM Sign Date: 08/09/2023 4:37:01 PM Ordering Provider: ANTOLIN Wang [facility] [place] Wade 08-08-2023 CNPN Telephone (RHBATH) -------- CHRISTINACRYS Alli ([id number]) 1975 F Date Time Provider Department 08/08/23 TRISH ADAMES RHBATH During your visit today, we recorded the following information about you: Julisa Jimenez LPN 08/08/2023 2:49 PM Signed Patient called with an update Patient states she scheduled with an ENT, Dr. Александр Cunningham at [facility] for evaluation of the oral lesions on 08/17/2023. Patient had a follow up 08/07/[address] Gary Diaz, [employer] at [facility]. They reviewed the results of her pelvic US. Results noted pelvic floor prolapse and proctitis. Patient is scheduled on 08/21/2023 for an EGD, colonoscopy and another procedure. Patient states she has difficulty passing stool, rectal bleeding and pain with defecation. Dr. Diaz started her on Doxycycline 100 mg BID for 15 days. Patient had the labs you ordered at [facility] on 08/07/2023 P: [phone]. Called and they will fax results to office. ANDREA Gan Amanda K, PA-C 08/08/2023 4:52 PM Signed I cannot see any of this information. If she is currently on antibiotics for infection, have her skip 1 dose methotrexate and resume once antibiotics are completed. I will review once I get records. Ok to take meds through procedures RANDI Green Tina, LPN 08/10/2023 10:03 AM Signed Patient notified and verbalized understanding. Patient stopped Doxycycline due to red spots inside mouth, tongue swelling and rash distributed over entire body. Symptoms resolved with Benadryl. Patient advised to notify prescribing Provider, and not to take MTX until she completes course of antibiotics. Discussed they will start her on a new med. ANDREA Gan Tina, LPN 08/17/2023 1:32 PM Signed Patient left vm asking for a return call. [facility] ANDREA Gan Tina, LPN 08/23/2023 9:47 AM Signed 1) Patient states she saw the ENT, Dr. Александр Cunningham at [facility] on 08/17/2023. Patient was told there was two spots inside her mouth he is worried about. The spot that is black is a ton of varicose veins. Patient advised to be careful and not pop it because it will bleed. Concerns for open oral lesion on bottom left jaw. 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 A third oral lesion appeared benign. The office will reach out to her to schedule surgery date. Advised to contact PCP to ask for prescription for protein drinks so she will be able to get adequate nutrition after oral surgery. 2) Patient has been to the ER 08/09/2023 and 08/13/2023 for abdominal pain, vomiting. Patient was told she has gall stones. Labs in Care Everywhere. 3) Patient was evaluated by [employer] Operator told her she has a rectal prolapse. She will follow up on 10/01/2023. Patient was told she will have to have a surgery. 4) Patient has complaints of itching on bilateral arms and back. Patient has tried different lotions with no relief. Denies bug bites, rash or skin color changes. Advised to follow up with PCP for an evaluation. Patient verbalized understanding. ANDREA Gan Amanda K, PA-C 08/23/2023 4:09 PM Signed Noted Meds ok to continue through surgery RANDI Green Tina, LPN 08/24/2023 11:31 AM Signed Patient notified and verbalized understanding. FYI, no action needed PCP notified regarding sx of itching. Patient on wait list for appt. Oral surgery scheduled on 10/04/2023 at [facility]. Julisa Jimenez LPN Allergies As of Date: 08/08/2023 Noted Allergy Reaction LITHIUM 05/22/2023 1 - Mental Status Change SHELLFISH DERIVED 10/12/2014 14 - Other: See Comments 10 - Anaphylaxis Comments: THROAT SWELLING Seafood--THROAT SWELLS VENOM-HONEY BEE 08/11/2019 16 - Unknown VENOM-WASP 08/11/2019 16 - Unknown CARAFATE (SUCRALFATE) 08/18/2021 4 - Hives Comments: Hives and Vomiting LATEX 11/20/2016 2 - Rash 4 - Hives ADHESIVE TAPE (ROSINS) 01/19/2016 2 - Rash ALEVE (NAPROXEN SODIUM) 11/13/2017 14 - Other: See Comments BACTRIM (SULFAMETHOXAZOLE-TRIMET H*08/10/2017 14 - Other: See Comments Comments: severe headaches and nosebleeds CIPRO (CIPROFLOXACIN HCL) 10/23/2021 2 - Rash ERYTHROMYCIN 01/19/2016 2 - Rash FLAGYL (METRONIDAZOLE HCL) 01/19/2016 14 - Other: See Comments Comments: THROAT SWELLING IODINE 01/19/2016 14 - Other: See Comments Comments: THROAT SWELL NAPROXYN (NAPROXEN) 01/19/2016 14 - Other: See Comments Comments: HEART STOPPED NOVACAINE (PROCAINE) 03/02/2017 14 - Other: See Comments Comments: Does not work ONDANSETRON 09/26/2016 14 - Other: See Comments Comments: headache PENICILLINS 02/02/2016 14 - Other: See Comments Comments: THROAT SWELLING PREGABALIN 01/27/2015 7 - Swelling Comments: Facial swelling, very irritable WELLBUTRIN (BUPROPION HCL) 04/11/2018 14 - Other: See Comments Comments: Matteo like state Date (more content not included)... Normal [facility] Absolute lymphocyte countOrd ered By: Giuseppe Floyd on 08-07-2023 Lymphocytes Auto (Unsp spec) [#/Vol] 2.22 10*3/uL 0.83-4.51 [facility] Automated lymphocyte count a s percentage of total leukocytesOrdered By: Giuseppe Floyd on 08-07-2023 Lymphocytes/100 WBC Auto (Unsp spec) 43.2 % 19-41 [facility] Basophil percentageOrdered B y: Giuseppe Floyd on 08-07-2023 Basophil percentage 11.7 g/dL 12.0-15.0 [facility] Basophil percentage 99 mg/dL 74-106 [facility] Basophil percentage 7.2 g/dL 6.4-8.2 [facility] Basophil percentage 0.20 mg/dL 0.20-1.00 [facility] Basophil percentage 141 mmol/L 136-145 [facility] Basophil percentage 3.7 mmol/L 3.5-5.1 [facility] Basophil percentage 112 mmol/L 98-107 [facility] Basophils (Bld) [#/Vol] 5.1 10*3/uL 4.4-11.0 [facility] Basophils (Bld) [#/Vol] 2.5 10*3/uL 2.0-7.7 [facility] Basophils/100 WBC (Bld) 47.9 % 47-70 [facility] Basophils/100 WBC (Bld) 5.6 % 0-10 [facility] Basophils/100 WBC (Bld) 2.5 % 0-5 [facility] Basophils/100 WBC (Bld) 0.6 % 0-1 [facility] Determination of erythrocyte mean corpuscular volume (MCV)Ordered By: Giuseppe Floyd on 08-07-2023 MCV (RBC) [Entitic vol] 103.2 fL 81-99 [facility] Erythrocyte distribution wid th ratioOrdered By: Giuseppe Floyd on 08-07-2023 Erythrocyte distribution width (RBC) [Ratio] 13.9 % 11.6-14.6 [facility] Erythrocyte distribution wid th standard deviationOrdered By: Giuseppe Floyd on 08-07-2023 Erythrocyte distribution width (RBC) [Entitic vol] 52.2 fL 35.1-43.9 [facility] Erythrocyte sedimentation ra teOrdered By: Giuseppe Floyd on 08-07-2023 ESR (Bld) [Velocity] 3 [facility]emat[facility] Auto (Bld) [Volum e fraction]Ordered By: Giuseppe Floyd on 08-07-2023 Hematocrit (Bld) [Volume fraction] 35.9 % 37-47 [facility] Immature granulocytes/100 WB C Auto (Bld)Ordered By: Giuseppe Floyd on 08-07-2023 Immature granulocytes/100 WBC (Bld) 0.200 % 0.0-0.9 [facility] Iron measurement (mass/mass) Ordered By: Giuseppe Floyd on 08-07-2023 Iron (Unsp spec) [Mass/Mass] 71 ug/dL 50-170 [facility] No Panel InformationOrdered By: Giuseppe Floyd on 08-07-2023 33.6 pg 27.0-32.0 [facility] 32.6 g/dL 32-36 [facility] 189 K/mm3 150-450 [facility] 11.4 fl 6.2-12.0 [facility] 0 % 0-5 [facility] 88 mL/min >60 [facility] 106 mL/min >60 [facility] 13.3 RATIO 10-20 [facility] 3.9 g/dL 2.2-4.2 [facility] 0.8 RATIO 0.9-2.4 [facility] 96 U/L 45-117 [facility] 13 U/L 13-56 [facility] 25.0 mmol/L 21.0-32.0 [facility] 3.14 mg/L 0.0-3.0 [facility] 355 pg/mL 211-911 [facility] 231 ug/dL 250-450 [facility] 70 ng/mL 8-252 [facility] 12.80 ng/mL 3.1-55.4 [facility] 63.1 ng/mL [facility] 132 mg/dL 82-167 [facility] RBC Auto (Bld) [#/Vol]Ordere d By: Giuseppe Floyd on 08-07-2023 RBC (Bld) [#/Vol] 3.48 10*6/uL 4.2-5.4 [facility] Serum DNA double strand anti body assay (units/volume)Ordered By: Giuseppe Floyd on 08-07-2023 DNA double strand Ab Qn (S) 4 [IU]/mL 0-9 [facility] Serum or plasma calcium greg urement (mass/volume)Ordered By: Giuseppe Floyd on 08-07-2023 Calcium [Mass/Vol] 8.6 mg/dL 8.5-10.1 [facility] Serum or plasma complement C 4 measurement (mass/volume)Ordered By: Giuseppe Floyd on 08-07-2023 Complement C4 [Mass/Vol] 26 mg/dL 12-38 [facility] Serum or plasma creatinine m easurement (mass/volume)Ordered By: Giuseppe Floyd on 08-07-2023 Creatinine [Mass/Vol] 0.75 mg/dL 0.55-1.02 [facility] Serum or plasma iron saturat ion measurement (mass fraction)Ordered By: Giuseppe Floyd on 08-07-2023 Iron saturation [Mass fraction] 30.7 % 15.0-55.0 [facility] Serum or plasma urea nitroge n measurement (mass/volume)Ordered By: Giuseppegreg Floyd on 08-07-2023 Urea nitrogen [Mass/Vol] 10 mg/dL 7-18 [facility] Thin prep Papanicolaou smear with manual screeningOrdered By: Sassafras Christiano on 08-07-2023 Thin prep Papanicolaou smear with manual screening 3.3 g/dL 3.2-5.0 [facility] Thin prep Papanicolaou smear with manual screening 13 U/L 15-37 [facility] Thin prep Papanicolaou smear with manual screening 4 5-15 [facility] CNPNon 07-19-2023 CNPN Telephone (RHBATH) -------- CRYS FRANKS ([id number]) 1975 F Date Time Provider Department 07/19/23 TRISH ADAMES RHBATH During your visit today, we recorded the following information about you: Julisa Jimenez LPN 07/19/2023 7:53 AM Signed Patient called stating that she had her lab testing done at [facility]. I asked her to contact them and fax the results to our office, F: [phone]. Patient verbalized understanding. ANDREA Gan Tina, LPN 07/24/2023 3:20 PM Signed Patient left vm asking for a return call regarding her lab results. [facility] Julisa Jimenez LPN Allergies As of Date: 07/19/2023 Noted Allergy Reaction LITHIUM 05/22/2023 1 - Mental Status Change SHELLFISH DERIVED 10/12/2014 14 - Other: See Comments 10 - Anaphylaxis Comments: THROAT SWELLING Seafood--THROAT SWELLS VENOM-HONEY BEE 08/11/2019 16 - Unknown VENOM-WASP 08/11/2019 16 - Unknown CARAFATE (SUCRALFATE) 08/18/2021 4 - Hives Comments: Hives and Vomiting LATEX 11/20/2016 2 - Rash 4 - Hives ADHESIVE TAPE (ROSINS) 01/19/2016 2 - Rash ALEVE (NAPROXEN SODIUM) 11/13/2017 14 - Other: See Comments BACTRIM (SULFAMETHOXAZOLE-TRIMET H*08/10/2017 14 - Other: See Comments Comments: severe headaches and nosebleeds CIPRO (CIPROFLOXACIN HCL) 10/23/2021 2 - Rash ERYTHROMYCIN 01/19/2016 2 - Rash FLAGYL (METRONIDAZOLE HCL) 01/19/2016 14 - Other: See Comments Comments: THROAT SWELLING IODINE 01/19/2016 14 - Other: See Comments Comments: THROAT SWELL NAPROXYN (NAPROXEN) 01/19/2016 14 - Other: See Comments Comments: HEART STOPPED NOVACAINE (PROCAINE) 03/02/2017 14 - Other: See Comments Comments: Does not work ONDANSETRON 09/26/2016 14 - Other: See Comments Comments: headache PENICILLINS 02/02/2016 14 - Other: See Comments Comments: THROAT SWELLING PREGABALIN 01/27/2015 7 - Swelling Comments: Facial swelling, very irritable WELLBUTRIN (BUPROPION HCL) 04/11/2018 14 - Other: See Comments Comments: Zombie like state Date Reviewed: 06/12/2023 Reviewed by: Giuseppe Floyd PA-C - Fully Assessed Reason for Visit: Results [95] Cmt: Awaiting fax with lab results Prescriptions as of 07/24/2023 - hydrOXYchloroQUINE (PLAQUENIL) 200 mg tablet take 1 tablet by mouth twice a day - predniSONE (DELTASONE) 5 mg tablet Prednisone 20 mg x 3 days, 15 mg x 3 days, 10 mg x 3 days, 5 mg x 3 days - cholecalciferol, Vitamin D3, (VITAMIN D3) 1,250 mcg (50,000 unit) cap capsule Take vitamin D 50,000 units once every week x 12 weeks starting 06/18/23 then once monthly thereafter - methotrexate 2.5 mg tablet Take 6 tablets by mouth one time a week. as directed. - folic acid 1 mg tablet Take 1 tablet by mouth once daily. - ondansetron (ZOFRAN ODT ORAL) Take 4 mg by mouth every 6 hours as needed. - DOCUSATE SODIUM ORAL Take 100 mg by mouth two times a day. - fremanezumab-vfrm (AJOVY SYRINGE) 225 mg/1.5 mL syringe Inject 225 mg subcutaneously once every month. Do not shake. - gabapentin (NEURONTIN) 600 mg tablet Take 1 tablet by mouth three times daily for 30 days. Do not start before March 09, 2022. - scopolamine (TRANSDERM-SCOP) patch 1.5 mg/72 hr (delivers 1 mg over 3 days) Apply 1 Patch as directed every 72 hours. - baclofen (LIORESAL) 10 mg tablet TAKE 1 TABLET BY MOUTH UP TO THREE TIMES A DAY NEEDED FOR PAINFUL MUSCLE SPASM - QUEtiapine (SEROQUEL) 200 mg tablet Take 700 mg by mouth daily at bedtime. 700mg daily - pantoprazole DR (PROTONIX) 40 mg tablet TAKE 1 TABLET BY MOUTH DAILY 30 MINUTES BEFORE A MEAL - prazosin (MINIPRESS) 5 mg cap Take 4 mg by mouth daily at bedtime. - hydrOXYzine pamoate (VISTARIL) 50 mg capsule Take 50 mg by mouth two times a day as needed. - topiramate (TOPAMAX) 200 mg tablet Take 200 mg by mouth daily at bedtime. - dicyclomine (BENTYL) 10 mg capsule TAKE 1 CAPSULE BY MOUTH FOUR TIMES A DAY BEFORE MEALS AND AT BEDTIME - levETIRAcetam (KEPPRA) 500 mg tablet TAKE 1 TABLET BY MOUTH TWICE A DAY - simvastatin (ZOCOR) 20 mg tablet Take 1 tablet by mouth daily at bedtime. - promethazine (PHENERGAN) 25 mg tablet take 1 tablet by mouth every 6 hours if needed - carBAMazepine (TEGRETOL) 200 mg tablet take 1 tablet by mouth in am and 2 at bedtime. Rx'd by Aliza Nieves . For mood and seizures. Problem List As Of Date 07/19/2023 Noted Resolved Chronic right shoulder pain [M25.511, G89.29] 02/02/2016 Myalgia [M79.10] 02/02/2016 DDD (degenerative disc disease), lumbar [M51.36]02/02/2016 Chronic pain [G89.29] 05/04/2016 04/18/2018 Postlaminectomy syndrome, lumbar region [M96.1] 05/04/2016 04/18/2018 Mixed incontinence [N39.46] 10/23/2016 Urgency of urination [R39.15] 10/23/2016 Frequency of urination [R35.0] 10/23/2016 Myofascial muscle pain [M79.18] 10/23/2016 04/18/2018 Muscular hypertonicity [M62.89] 10/23/2016 Full incontinence of feces [R15.9] (more content not included)... Normal [facility] Absolute lymphocyte countOrd ered By: Giuseppegreg Floyd on 07-18-2023 Lymphocytes Auto (Unsp spec) [#/Vol] 0.83 10*3/uL 0.83-4.51 [facility] Automated lymphocyte count a s percentage of total leukocytesOrdered By: Giuseppe Floyd on 07-18-2023 Lymphocytes/100 WBC Auto (Unsp spec) 20.2 % 19-41 [facility] Basophil percentageOrdered B y: Giuseppe Floyd on 07-18-2023 Basophil percentage 0 SEEN /hpf 0-5 [facility] Basophil percentage 10.4 g/dL 12.0-15.0 [facility] Basophil percentage 93 mg/dL 74-106 [facility] Basophil percentage 6.7 g/dL 6.4-8.2 [facility] Basophil percentage 0.20 mg/dL 0.20-1.00 [facility] Basophil percentage 137 mmol/L 136-145 [facility] Basophil percentage 3.8 mmol/L 3.5-5.1 [facility] Basophil percentage 109 mmol/L 98-107 [facility] Basophils (Bld) [#/Vol] 4.1 10*3/uL 4.4-11.0 [facility] Basophils (Bld) [#/Vol] 3.0 10*3/uL 2.0-7.7 [facility] Basophils/100 WBC (Bld) 73.8 % 47-70 [facility] Basophils/100 WBC (Bld) 3.2 % 0-10 [facility] Basophils/100 WBC (Bld) 1.9 % 0-5 [facility] Basophils/100 WBC (Bld) 0.7 % 0-1 [facility] Bilirubin Test strip Ql (U)O rdered By: Giuseppe Floyd on 07-18-2023 Bilirubin Ql (U) Negative Negative [facility] Determination of erythrocyte mean corpuscular volume (MCV)Ordered By: Giuseppe Floyd on 07-18-2023 MCV (RBC) [Entitic vol] 103.5 fL 81-99 [facility] Erythrocyte distribution wid th ratioOrdered By: Giuseppe Floyd on 07-18-2023 Erythrocyte distribution width (RBC) [Ratio] 14.4 % 11.6-14.6 [facility] Erythrocyte distribution wid th standard deviationOrdered By: Giuseppe Floyd on 07-18-2023 Erythrocyte distribution width (RBC) [Entitic vol] 53.4 fL 35.1-43.9 [facility] Erythrocyte sedimentation ra teOrdered By: Giuseppe Floyd on 07-18-2023 ESR (Bld) [Velocity] mm/h 0-30 [facility] Hematocrit Auto (Bld) [Volum e fraction]Ordered By: Giuseppe Floyd on 07-18-2023 Hematocrit (Bld) [Volume fraction] 32.6 % 37-47 [facility] Immature granulocytes/100 WB C Auto (Bld)Ordered By: Giuseppe Floyd on 07-18-2023 Immature granulocytes/100 WBC (Bld) 0.200 % 0.0-0.9 [facility] Ketones Test strip Ql (U)Ord ered By: Giuseppe Floyd on 07-18-2023 Ketones Ql (U) Negative Negative [facility] Mucus LM Ql (Urine sed)Order ed By: Giuseppe Floyd on 07-18-2023 Mucus Ql (Urine sed) 0 SEEN /hpf [facility] Nitrite Test strip Ql (U)Ord ered By: Giuseppe Floyd on 07-18-2023 Nitrite Ql (U) Negative Negative [facility] No Panel InformationOrdered By: Giuseppe Floyd on 07-18-2023 0 SEEN /hpf 0-5 [facility] 33.0 pg 27.0-32.0 [facility] 31.9 g/dL 32-36 [facility] 152 K/mm3 150-450 [facility] 10.8 fl 6.2-12.0 [facility] 0 % 0-5 [facility] 85 mL/min >60 [facility] 103 mL/min >60 [facility] 100.60 ml/min [facility] 20.7 RATIO 10-20 [facility] 3.6 g/dL 2.2-4.2 [facility] 0.9 RATIO 0.9-2.4 [facility] 67 U/L 26-192 [facility] 95 U/L 45-117 [facility] 16 U/L 13-56 [facility] 25.0 mmol/L 21.0-32.0 [facility] 4.89 mg/L 0.0-3.0 [facility] Protein Test strip Ql (U)Ord ered By: Giuseppe Floyd on 07-18-2023 Protein Ql (U) Negative Negative [facility] RBC Auto (Bld) [#/Vol]Ordere d By: Giuseppe Floyd on 07-18-2023 RBC (Bld) [#/Vol] 3.15 10*6/uL 4.2-5.4 [facility] Serum or plasma calcium greg urement (mass/volume)Ordered By: Giuseppe Floyd on 07-18-2023 Calcium [Mass/Vol] 8.0 mg/dL 8.5-10.1 [facility] Serum or plasma creatinine m easurement (mass/volume)Ordered By: Giuseppe Floyd on 07-18-2023 Creatinine [Mass/Vol] 0.77 mg/dL 0.55-1.02 [facility] Serum or plasma urea nitroge n measurement (mass/volume)Ordered By: Giuseppe Floyd on 07-18-2023 Urea nitrogen [Mass/Vol] 16 mg/dL 7-18 [facility] Squamous epithelial cells de tection in urine sediment by light microscopyOrdered By: Giuseppe Floyd on 07-18-2023 Epithelial cells.squamous LM Ql (Urine sed) 0 SEEN /hpf 5-10 [facility] Thin prep Papanicolaou smear with manual screeningOrdered By: Giuseppe Floyd on 07-18-2023 Thin prep Papanicolaou smear with manual screening 8.7 mg/dL 0.0-11.8 [facility] Thin prep Papanicolaou smear with manual screening 3.1 g/dL 3.2-5.0 [facility] Thin prep Papanicolaou smear with manual screening 15 U/L 15-37 [facility] Thin prep Papanicolaou smear with manual screening 3 5-15 [facility] Urine blood detectionOrdered By: Giuseppe Floyd on 07-18-2023 RBC Ql (U) Negative Negative [facility] Urine clarityOrdered By: Valerie Floyd on 07-18-2023 Clarity (U) Clear Clear [facility] Urine color determinationOrd ered By: Giuseppe Floyd on 07-18-2023 Color (U) Yellow Yellow [facility] Urine creatinine measurement (mass/volume)Ordered By: Giuseppe Floyd on 07-18-2023 Creatinine (U) [Mass/Vol] 52.70 mg/dL NO RANGE EST. [facility] Urine glucose detectionOrder ed By: Giuseppe Floyd on 07-18-2023 Glucose Ql (U) Normal mg/dl Normal [facility] Urine leukocyte esterase det ection by dipstickOrdered By: Giuseppe Floyd on 07-18-2023 Leukocyte esterase Test strip Ql (U) Negative Negative [facility] Urine pHOrdered By: Giuseppe galicia on 07-18-2023 pH (U) 6.0 [pH] 5.0 - 8.0 [facility] Urine protein/creatinine mas s ratioOrdered By: Giuseppe Floyd on 07-18-2023 Protein/Creatinine (U) [Mass ratio] 165 mg/g CRE 0-200 [facility] Urine sediment bacteria coun t by microscopy (number/high power field)Ordered By: Giuseppe Floyd on 07-18-2023 Bacteria LM.HPF (Urine sed) [#/Area] 0 /[HPF] None Seen [facility] Urine specific gravity measu rementOrdered By: Giuseppe Floyd on 07-18-2023 Specific gravity (U) [Rel density] 1.010 1.002-1.030 [facility] Urine urobilinogen measureme ntOrdered By: Giuseppe Floyd on 07-18-2023 Urobilinogen Ql (U) Normal mg/dl Normal [facility] CNPNon 07-17-2023 CNPN Telephone (RHBATH) -------- CRYS FRANKS ([id number]) 1975 F Date Time Provider Department 07/17/23 GIUSEPPE FLOYD RHBTEGAN During your visit today, we recorded the following information about you: Julisa Jimenez LPN 07/17/2023 4:[address] for oral surgery. I reached out to the Call Center to escalate the appointment, . They will send an email to the [facility] [place] [place]. They will send me and the patient a response. Julisa Jimenez LPN Allergies As of Date: 07/17/2023 Noted Allergy Reaction LITHIUM 05/22/2023 1 - Mental Status Change SHELLFISH DERIVED 10/12/2014 14 - Other: See Comments 10 - Anaphylaxis Comments: THROAT SWELLING Seafood--THROAT SWELLS VENOM-HONEY BEE 08/11/2019 16 - Unknown VENOM-WASP 08/11/2019 16 - Unknown CARAFATE (SUCRALFATE) 08/18/2021 4 - Hives Comments: Hives and Vomiting LATEX 11/20/2016 2 - Rash 4 - Hives ADHESIVE TAPE (ROSINS) 01/19/2016 2 - Rash ALEVE (NAPROXEN SODIUM) 11/13/2017 14 - Other: See Comments BACTRIM (SULFAMETHOXAZOLE-TRIMET H*08/10/2017 14 - Other: See Comments Comments: severe headaches and nosebleeds CIPRO (CIPROFLOXACIN HCL) 10/23/2021 2 - Rash ERYTHROMYCIN 01/19/2016 2 - Rash FLAGYL (METRONIDAZOLE HCL) 01/19/2016 14 - Other: See Comments Comments: THROAT SWELLING IODINE 01/19/2016 14 - Other: See Comments Comments: THROAT SWELL NAPROXYN (NAPROXEN) 01/19/2016 14 - Other: See Comments Comments: HEART STOPPED NOVACAINE (PROCAINE) 03/02/2017 14 - Other: See Comments Comments: Does not work ONDANSETRON 09/26/2016 14 - Other: See Comments Comments: headache PENICILLINS 02/02/2016 14 - Other: See Comments Comments: THROAT SWELLING PREGABALIN 01/27/2015 7 - Swelling Comments: Facial swelling, very irritable WELLBUTRIN (BUPROPION HCL) 04/11/2018 14 - Other: See Comments Comments: Zombie like state Date Reviewed: 06/12/2023 Reviewed by: Giuseppe Floyd PA-C - Fully Assessed Reason for Visit: Consult [502] Cmt: Oral Surgeon Prescriptions as of 07/17/2023 - hydrOXYchloroQUINE (PLAQUENIL) 200 mg tablet take 1 tablet by mouth twice a day - predniSONE (DELTASONE) 5 mg tablet Prednisone 20 mg x 3 days, 15 mg x 3 days, 10 mg x 3 days, 5 mg x 3 days - cholecalciferol, Vitamin D3, (VITAMIN D3) 1,250 mcg (50,000 unit) cap capsule Take vitamin D 50,000 units once every week x 12 weeks starting 06/18/23 then once monthly thereafter - methotrexate 2.5 mg tablet Take 6 tablets by mouth one time a week. as directed. - folic acid 1 mg tablet Take 1 tablet by mouth once daily. - ondansetron (ZOFRAN ODT ORAL) Take 4 mg by mouth every 6 hours as needed. - DOCUSATE SODIUM ORAL Take 100 mg by mouth two times a day. - fremanezumab-vfrm (AJOVY SYRINGE) 225 mg/1.5 mL syringe Inject 225 mg subcutaneously once every month. Do not shake. - gabapentin (NEURONTIN) 600 mg tablet Take 1 tablet by mouth three times daily for 30 days. Do not start before March 09, 2022. - scopolamine (TRANSDERM-SCOP) patch 1.5 mg/72 hr (delivers 1 mg over 3 days) Apply 1 Patch as directed every 72 hours. - baclofen (LIORESAL) 10 mg tablet TAKE 1 TABLET BY MOUTH UP TO THREE TIMES A DAY NEEDED FOR PAINFUL MUSCLE SPASM - QUEtiapine (SEROQUEL) 200 mg tablet Take 700 mg by mouth daily at bedtime. 700mg daily - pantoprazole DR (PROTONIX) 40 mg tablet TAKE 1 TABLET BY MOUTH DAILY 30 MINUTES BEFORE A MEAL - prazosin (MINIPRESS) 5 mg cap Take 4 mg by mouth daily at bedtime. - hydrOXYzine pamoate (VISTARIL) 50 mg capsule Take 50 mg by mouth two times a day as needed. - topiramate (TOPAMAX) 200 mg tablet Take 200 mg by mouth daily at bedtime. - dicyclomine (BENTYL) 10 mg capsule TAKE 1 CAPSULE BY MOUTH FOUR TIMES A DAY BEFORE MEALS AND AT BEDTIME - levETIRAcetam (KEPPRA) 500 mg tablet TAKE 1 TABLET BY MOUTH TWICE A DAY - simvastatin (ZOCOR) 20 mg tablet Take 1 tablet by mouth daily at bedtime. - promethazine (PHENERGAN) 25 mg tablet take 1 tablet by mouth every 6 hours if needed - carBAMazepine (TEGRETOL) 200 mg tablet take 1 tablet by mouth in am and 2 at bedtime. Rx'd by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 infection and in some clinical conditions. See Interp Performed By: #### A DE, ADIFF, CBC, CMP, MDW, LIP, GFR #### [place] [address] HIVRPon 02-13-2023 HIV p24 Antigen Non-Reactive Normal Non-Reactive [facility] ([place] Comment on above: Result Comment: Dete ction of p24 may be inhibited by biotin in the sample, causing false negative results in acute infection. Therefore do not test samples from patients who are taking biotin. Performed By: #### A DE, ADIFF, CBC, CMP, MDW, LIP, GFR #### [place] [address] HIV P24 Int Non-Reactive Invalid Interpretation Code [facility] [place] Comment on above: Performed By: #### A DE, ADIFF, CBC, CMP, MDW, LIP, GFR #### [place] [address] Rapid HIV 1/2 Antibody Non-Reactive Normal Non-Reactiv e [facility] [place] Comment on above: Performed By: #### A DE, ADIFF, CBC, CMP, MDW, LIP, GFR #### [place] [address] RHIV 1/2 Ab Int Non-Reactive Invalid Interpretation Code [facility] [place] Comment on above: Performed By: #### A DE, ADIFF, CBC, CMP, MDW, LIP, GFR #### [place] [address] SPEon 02-13-2023 Total Protein 7.1 G/dL Normal 5.7-8.2 [facility] [place] Comment on above: Result Comment: No te - New Reference Range in effect 19 Performed By: #### A DE, ADIFF, CBC, CMP, MDW, LIP, GFR #### [place] [address] TSHon 02-13-2023 TSH Qn 0.91 m[IU]/L Normal 0.36-3.74 [facility] [place] Comment on above: Performed By: #### A DE, ADIFF, CBC, CMP, MDW, LIP, GFR #### [address] [address] METon 02-02-2023 Methylmalonic Acid, Blood 0.15 umol/l Normal <=0.40 [facility] [place] Comment on above: Result Comment: This test was developed and its performance characteristics determined by [facility] [place] ([facility]). It has not been cleared or approved by the FDA. [facility] is regulated under CLIA as qualified to perform high-complexity testing. This test is used for clinical purposes. It should not be regarded as investigational or for research. Performed By: [place] [address] Traveling Electrician: Calvin Jimenez III, M.D. CLIA#: [id number] Performed By: #### A DE, ADIFF, CBC, CMP, MDW, LIP, GFR #### [address] [address] QuantTBon 02-02-2023 Mitogen minus NIL >10.00 Normal >=0.50 [facility] [place] Comment on above: Result Comment: Perf ormed By: [facility] [employer] [address] [place] [address] Traveling Electrician: Calvin Jimenez III, M.D. CLIA#: [id number] Performed By: #### A DE, ADIFF, CBC, CMP, MDW, LIP, GFR #### [address] [address] TB Interpretation Infection with M. tuberculosis complex is unlikely. If latent tuberculosis infection is highly suspected, a negative result does not rule out the infection. Specimens from immunocompromised patients and those <5 years of age may show false negative results. In case of a contact investigation, please repeat 8-12 weeks after a known exposure. Normal [facility] [place] Comment on above: Result Comment: Perf ormed By: [facility] [employer] [address] [place], [place] [id number] Traveling Electrician: Calvin Jimenez III, M.D. CLIA#: [id number] Performed By: #### A DE, ADIFF, CBC, CMP, MDW, LIP, GFR #### [address] [address] TB NIL <0.00 Normal <=8.00 [facility] [place] Comment on above: Result Comment: Perf ormed By: [place] [address] Traveling Electrician: Calvin Jimenez III, M.D. CLIA#: [id number] Performed By: #### A DE, ADIFF, CBC, CMP, MDW, LIP, GFR #### [place] [address] TB Result Negative Normal [facility] [place] Comment on above: Result Comment: Perf ormed By: [place] [address] Traveling Electrician: Calvin Jimenez III, M.D. CLIA#: [id number] Performed By: #### A DE, ADIFF, CBC, CMP, MDW, LIP, GFR #### [place] [address] TB1 Ag minus NIL 0.22 IU/mL Normal <0.35 [facility] [place] Comment on above: Result Comment: Perf ormed By: [place] [address] Traveling Electrician: Calvin Jimenez III, M.D. CLIA#: [id number] Performed By: #### A DE, ADIFF, CBC, CMP, MDW, LIP, GFR #### [place] [address] TB2 Ag minus NIL 0.28 IU/mL Normal <0.35 [facility] [place] Comment on above: Result Comment: Perf ormed By: [place] [address] Traveling Electrician: Calvin Jimenez III, M.D. CLIA#: [id number] Performed By: #### A DE, ADIFF, CBC, CMP, MDW, LIP, GFR #### [address] [address] DNAon 02-01-2023 ds DNA Ab Neg 10 Normal Neg 10 [facility] [place] Comment on above: Result Comment: DNA Screen and Titer methodology is an immunofluorescent technique utilizing Crithidia luciliae Substrate. Performed By: #### A DE, ADIFF, CBC, CMP, MDW, LIP, GFR #### [address] [address] HBCABon 02-01-2023 Hep B Core Ab Negative Normal Negative [facility] [place] Comment on above: Result Comment: No e vidence of current or past infection with Hepatitis B virus. Should recent infection be suspected, repeat testing may be considered 3-4 weeks after this draw. Performed By: [facility] [address] [place] [address] Traveling Electrician: Calvin Jimenez III, M.D. CLIA#: [id number] Performed By: #### A DE, ADIFF, CBC, CMP, MDW, LIP, GFR #### [address] [address] MISCon 02-01-2023 Misc. Send Out See Comments Normal [facility] [place] Comment on above: Order Comment: EARNESTINE Garcia, [id number] Result Comment: Comp lete reference lab report scanned to EMR. Performed By: #### A DE, ADIFF, CBC, CMP, MDW, LIP, GFR #### [address] [address] SPEon 02-01-2023 SPE Interpretation Normal serum protein electrophoresis pattern. No abnormality detected. Normal [facility]) Comment on above: Result Comment: Elec tronically Signed by: AUGUST NIX MD 02/01/2023 10:57 EDT Performed By: #### A DE, ADIFF, CBC, CMP, MDW, LIP, GFR #### [address] [address] Albumin 3.4 G/dL Normal 3.3-5.0 [facility] [place] Comment on above: Performed By: #### A DE, ADIFF, CBC, CMP, MDW, LIP, GFR #### [place] [address] Alpha 1 0.2 G/dL Normal 0.1-0.4 [facility] [place] Comment on above: Performed By: #### A DE, ADIFF, CBC, CMP, MDW, LIP, GFR #### [place] [address] Alpha 2 1.0 G/dL Normal 0.6-1.2 [facility] [place] Comment on above: Performed By: #### A DE, ADIFF, CBC, CMP, MDW, LIP, GFR #### [place] [address] Beta 0.8 G/dL Normal 0.6-1.3 [facility] [place] Comment on above: Performed By: #### A DE, ADIFF, CBC, CMP, MDW, LIP, GFR #### [place] [address] Gamma 1.3 G/dL Normal 0.7-1.6 [facility] [place] Comment on above: Performed By: #### A DE, ADIFF, CBC, CMP, MDW, LIP, GFR #### [place] [address] .Auto Diffon 01-31-2023 Basophil, Absolute 0.0 10 3/mcL Normal 0.0-0.2 [facility] [place] Comment on above: Performed By: #### A DE, ADIFF, CBC, CMP, MDW, LIP, GFR #### [place] [address] Basophils/100 WBC (Bld) 0.7 % Normal 0.0-2.5 [facility] ([place] Comment on above: Performed By: #### A DE, ADIFF, CBC, CMP, MDW, LIP, GFR #### [address] [place] [address] Eosinophil, Absolute 0.2 10 3/mcL Normal 0.0-0.4 [facility] ([place]) Comment on above: Performed By: #### A DE, ADIFF, CBC, CMP, MDW, LIP, GFR #### [address] [address] Eosinophils/100 WBC (Bld) 4.3 % Normal 0.0-7.0 [facility] [place] Comment on above: Performed By: #### A DE, ADIFF, CBC, CMP, MDW, LIP, GFR #### [address] [address] Lymphocyte, Absolute 1.8 10 3/mcL Normal 0.8-3.9 [facility] ([place] Comment on above: Performed By: #### A DE, ADIFF, CBC, CMP, MDW, LIP, GFR #### [address] [address] Lymphocytes/100 WBC (Bld) 41.7 % Normal 10.0-50.0 [facility] ([place] Comment on above: Performed By: #### A DE, ADIFF, CBC, CMP, MDW, LIP, GFR #### [address] [address] Monocyte, Absolute 0.3 10 3/mcL Normal 0.2-1.0 [facility] ([place] Comment on above: Performed By: #### A DE, ADIFF, CBC, CMP, MDW, LIP, GFR #### [address] [address] Monocytes/100 WBC (Bld) 6.1 % Normal 1.7-13.0 [facility] ([place] Comment on above: Performed By: #### A DE, ADIFF, CBC, CMP, MDW, LIP, GFR #### [address] [address] Neutrophils/100 WBC (Bld) 47.2 % Normal 37.0-80.0 [facility] [place] Comment on above: Performed By: #### A DE, ADIFF, CBC, CMP, MDW, LIP, GFR #### [address] [address] .GFRon 01-31-2023 GFR 83 ml/min/1.73sqm Normal [facility] [place] Comment on above: Result Comment: GFR Population mean for , Non- Americans Ages 20-29 = 116 mL/min/1.73 sq.m. Ages 30-39 = 107 mL/min/1.73 sq.m. Ages 40-49 = 99 mL/min/1.73 sq.m. Ages 50-59 = 93 mL/min/1.73 sq.m. Ages 60-69 = 85 mL/min/1.73 sq.m. Ages 70+ = 75 mL/min/1.73 sq.m. Chronic Kidney Disease: Less than 60 mL/min/1.73 square meters End Stage Renal Disease: Less than 15 mL/min/1.73 square meters Performed By: #### A DE, ADIFF, CBC, CMP, MDW, LIP, GFR #### [address] [address] GFR Non- 68 ml/min/1.73sqm Normal [facility] [place] Comment on above: Result Comment: GFR Population mean for , Non- Americans Ages 20-29 = 116 mL/min/1.73 sq.m. Ages 30-39 = 107 mL/min/1.73 sq.m. Ages 40-49 = 99 mL/min/1.73 sq.m. Ages 50-59 = 93 mL/min/1.73 sq.m. Ages 60-69 = 85 mL/min/1.73 sq.m. Ages 70+ = 75 mL/min/1.73 sq.m. Chronic Kidney Disease: Less than 60 mL/min/1.73 square meters End Stage Renal Disease: Less than 15 mL/min/1.73 square meters Performed By: #### A DE, ADIFF, CBC, CMP, MDW, LIP, GFR #### [address] [address] .NEUABSon 01-31-2023 Neutrophil, Absolute 2.0 10 3/mcL Low 2.9-6.2 [facility] ([place] Comment on above: Performed By: #### A DE, ADIFF, CBC, CMP, MDW, LIP, GFR #### [address] [address] .Urinalysis Microscopic (AO) on 01-31-2023 UA Amorphus 2+ /hpf Normal [facility] [place] Comment on above: Performed By: #### A DE, ADIFF, CBC, CMP, MDW, LIP, GFR #### [address] [address] UA Bacteria Trace Abnormal [facility] [place] Comment on above: Performed By: #### A DE, ADIFF, CBC, CMP, MDW, LIP, GFR #### [address] [address] UA RBC 0-5 Abnormal None Seen [facility] [place] Comment on above: Performed By: #### A DE, ADIFF, CBC, CMP, MDW, LIP, GFR #### [address] [address] UA Squam Epithelial 5-10 Abnormal None Seen [facility] [place] Comment on above: Performed By: #### A DE, ADIFF, CBC, CMP, MDW, LIP, GFR #### [address] [address] UA WBC 0-5 Abnormal None Seen [facility] [place] Comment on above: Performed By: #### A DE, ADIFF, CBC, CMP, MDW, LIP, GFR #### [address] [address] B12on 01-31-2023 Cobalamin (Vitamin B12) [Mass/Vol] 443 pg/mL Normal 211-911 [facility] [place] Comment on above: Performed By: #### A DE, ADIFF, CBC, CMP, MDW, LIP, GFR #### [place] [address] [id number] 01-31-2023 Complement C3A 134.0 mg/dL Normal 90.0-170.0 [facility] [place] Comment on above: Result Comment: No te - New Reference Range in effect 19 Performed By: #### A DE, ADIFF, CBC, CMP, MDW, LIP, GFR #### [address] [address] Complement C4A 30.0 mg/dL Normal 16.0-38.0 [facility] [place] Comment on above: Performed By: #### A DE, ADIFF, CBC, CMP, MDW, LIP, GFR #### [place] [address] CBCon 01-31-2023 Erythrocyte distribution width (RBC) [Ratio] 13.2 % Normal 11.5-14.5 [facility] [place] Comment on above: Performed By: #### A DE, ADIFF, CBC, CMP, MDW, LIP, GFR #### [place] [address] Hematocrit (Bld) [Volume fraction] 35.6 % Low 37.0-47.0 [facility] [place] Comment on above: Performed By: #### A DE, ADIFF, CBC, CMP, MDW, LIP, GFR #### [address] [address] Hgb 12.1 G/dL Normal 12.0-16.0 [facility] [place] Comment on above: Performed By: #### A DE, ADIFF, CBC, CMP, MDW, LIP, GFR #### [address] [address] MCH (RBC) [Entitic mass] 32.8 pg High 27.0-31.2 [facility] [place] Comment on above: Performed By: #### A DE, ADIFF, CBC, CMP, MDW, LIP, GFR #### [place] [id number] MCHC 33.9 G/dL Normal 33.0-37.0 [facility] ([place] Comment on above: Performed By: #### A DE, ADIFF, CBC, CMP, MDW, LIP, GFR #### [address] [address] MCV (RBC) [Entitic vol] 96.8 fL High 80.0-94.0 A [facility] ([place]) Comment on above: Performed By: #### A DE, ADIFF, CBC, CMP, MDW, LIP, GFR #### [address] [address] Platelet 139 10 3/mcL Normal 130-400 [facility] ([place] Comment on above: Performed By: #### A DE, ADIFF, CBC, CMP, MDW, LIP, GFR #### [address] [address] Platelet mean volume (Bld) [Entitic vol] 9.8 fL Normal 7.4-10.4 [facility] ([place] Comment on above: Performed By: #### A DE, ADIFF, CBC, CMP, MDW, LIP, GFR #### [address] [address] RBC 3.68 10 6/mcL Low 4.20-5.40 [facility] ([place] Comment on above: Performed By: #### A DE, ADIFF, CBC, CMP, MDW, LIP, GFR #### [address] [address] WBC 4.3 10 3/mcL Low 4.6-10.8 [facility] ([place] Comment on above: Performed By: #### A DE, ADIFF, CBC, CMP, MDW, LIP, GFR #### [address] [address] CKon 01-31-2023 CK [Catalytic activity/Vol] 95 U/L Normal 26-192 [facility] ([place] Comment on above: Performed By: #### A DE, ADIFF, CBC, CMP, MDW, LIP, GFR #### [address] [address] CMPon 01-31-2023 Albumin Level 3.4 G/dL Low 3.5-5.0 [facility] ([place] Comment on above: Performed By: #### A DE, ADIFF, CBC, CMP, MDW, LIP, GFR #### [address] [address] Albumin/Globulin [Mass ratio] 0.9 {ratio} Low 1.1-2.5 [facility] ([place] Comment on above: Performed By: #### A DE, ADIFF, CBC, CMP, MDW, LIP, GFR #### [address] [address] ALP [Catalytic activity/Vol] 123 U/L Normal 40-135 [facility] ([place] Comment on above: Performed By: #### A DE, ADIFF, CBC, CMP, MDW, LIP, GFR #### [address] [address] ALT [Catalytic activity/Vol] 18 U/L Normal 14-59 [facility] ([place] Comment on above: Performed By: #### A DE, ADIFF, CBC, CMP, MDW, LIP, GFR #### [address] [address] AST [Catalytic activity/Vol] 18 U/L Normal 10-40 [facility] ([place] Comment on above: Performed By: #### A DE, ADIFF, CBC, CMP, MDW, LIP, GFR #### [address] [address] Bili Total 0.2 mg/dL Normal 0.2-1.0 [facility] ([place]) Comment on above: Result Comment: Use of this assay is not recommended for patients undergoing treatment with eltrombopag due to the potential for falsely elevated results. Performed By: #### A DE, ADIFF, CBC, CMP, MDW, LIP, GFR #### [address] [address] BUN/Creatinine Ratio 17 ratio Normal 7-27 [facility] ([place]) Comment on above: Performed By: #### A DE, ADIFF, CBC, CMP, MDW, LIP, GFR #### [address] [address] Calcium [Mass/Vol] 8.3 mg/dL Low 8.4-10.2 [facility] ([place]) Comment on above: Performed By: #### A DE, ADIFF, CBC, CMP, MDW, LIP, GFR #### [place] [address] Chloride [Moles/Vol] 107 mmol/L Normal 98-107 [facility] ([place]) Comment on above: Performed By: #### A DE, ADIFF, CBC, CMP, MDW, LIP, GFR #### [place] [address] CO2 [Moles/Vol] 25 mmol/L Normal 22-29 [facility] ([place] Comment on above: Performed By: #### A DE, ADIFF, CBC, CMP, MDW, LIP, GFR #### [place] [address] Creatinine [Mass/Vol] 0.89 mg/dL Normal 0.55-1.02 [facility] ([place]) Comment on above: Performed By: #### A DE, ADIFF, CBC, CMP, MDW, LIP, GFR #### [address] [address] Electrolyte Balance 10.0 mEq/L Normal 4.0-15.0 [facility] ([place]) Comment on above: Performed By: #### A DE, ADIFF, CBC, CMP, MDW, LIP, GFR #### [address] [address] Globulin 3.8 G/dL Normal [facility] ([place] Comment on above: Performed By: #### A DE, ADIFF, CBC, CMP, MDW, LIP, GFR #### [place] [address] Glucose [Mass/Vol] 93 mg/dL Normal 70-105 [facility] ([place]) Comment on above: Performed By: #### A DE, ADIFF, CBC, CMP, MDW, LIP, GFR #### [address] [address] Potassium [Moles/Vol] 3.8 mmol/L Normal 3.5-5.1 [facility] ([place] Comment on above: Performed By: #### A DE, ADIFF, CBC, CMP, MDW, LIP, GFR #### [place] [address] Sodium [Moles/Vol] 142 mmol/L Normal 136-145 [facility] ([place]) Comment on above: Performed By: #### A DE, ADIFF, CBC, CMP, MDW, LIP, GFR #### [place] [address] Total Protein 7.2 G/dL Normal 6.4-8.2 [facility] ([place] Comment on above: Performed By: #### A DE, ADIFF, CBC, CMP, MDW, LIP, GFR #### [place] [address] Urea nitrogen [Mass/Vol] 15 mg/dL Normal 7-18 [facility] ([place]) Comment on above: Performed By: #### A DE, ADIFF, CBC, CMP, MDW, LIP, GFR #### [place] [address] CRPon 01-31-2023 C-Reactive Protein 0.4 mg/dL High 0.0-0.3 [facility] ([place]) Comment on above: Performed By: #### A DE, ADIFF, CBC, CMP, MDW, LIP, GFR #### [place] [address] FT4on 01-31-2023 Free T4 [Mass/Vol] 0.59 ng/dL Low 0.76-1.46 [facility] ([place]) Comment on above: Performed By: #### F T4, HIVRP, TSH, MMA #### [place] [address] #### B12, SPE #### [facility] [address] [place] [address] HBSABon 01-31-2023 Hep B Surf Ab <3.1 Low >=10.0 [facility] ([place]) Comment on above: Result Comment: 0 to < 10.0 mIU/mL Nonreactive Patient is considered not to have protective immunity to HBV infection >/= 10.0 mIU/mL Reactive Patient is considered to have protective immunity to HBV infection. This assay is traceable to the World Health Organization (WHO) Hepatitis B Immunoglobulin 1st International Reference Preparation (1976). The accepted criteria for immunity to HBV is anti-HBs activity >/= 10.0 mIU/mL, as defined by the WHO International Reference Preparation. Performed By: #### A DE, ADIFF, CBC, CMP, MDW, LIP, GFR #### [place] [phone] HBSAGon 01-31-2023 Hep B Surf Ag Non-Reactive Normal Non-Reactive [facility] ([place]) Comment on above: Performed By: #### A DE, ADIFF, CBC, CMP, MDW, LIP, GFR #### [place] [address] HCVon 01-31-2023 Hep C Ab Non-Reactive Normal Non-Reactive [facility] ([place]) Comment on above: Performed By: #### A DE, ADIFF, CBC, CMP, MDW, LIP, GFR #### [place] [address] Hep C Ab Int Normal [facility] ([place]) Comment on above: Result Comment: Nonr eactive: Samples with a value < 0.80 are considered nonreactive (negative) for antibodies to HCV. A negative test result does not exclude the possibility of exposure to or infection with HCV. HCV antibodies may be undetectable in some stages of the infection and in some clinical conditions. See Interp Performed By: #### A DE, ADIFF, CBC, CMP, MDW, LIP, GFR #### [place] [phone] HIVRPon 01-31-2023 HIV p24 Antigen Non-Reactive Normal Non-Reactive [facility] ([place]) Comment on above: Result Comment: Dete ction of p24 may be inhibited by biotin in the sample, causing false negative results in acute infection. Therefore do not test samples from patients who are taking biotin. Performed By: #### F T4, HIVRP, TSH, MMA #### [place] [address] #### B12, SPE #### [place] [address] HIV P24 Int Non-Reactive Invalid Interpretation Code [facility] ([place]) Comment on above: Performed By: #### F T4, HIVRP, TSH, MMA #### [place] [address] #### B12, SPE #### [place] [address] Rapid HIV 1/2 Antibody Non-Reactive Normal Non-Reactiv e [facility] ([place]) Comment on above: Performed By: #### F T4, HIVRP, TSH, MMA #### [place] [address] #### B12, SPE #### [place] [address] RHIV 1/2 Ab Int Non-Reactive Invalid Interpretation Code [facility] ([place] Comment on above: Performed By: #### F T4, HIVRP, TSH, MMA #### [place] [address] #### B12, SPE #### [place] [address] SPEon 01-31-2023 Total Protein 6.7 G/dL Normal 5.7-8.2 [facility] ([place]) Comment on above: Result Comment: No te - New Reference Range in effect 19 Performed By: #### A DE, ADIFF, CBC, CMP, MDW, LIP, GFR #### [place] [address] TSHon 01-31-2023 TSH Qn 0.71 m[IU]/L Normal 0.36-3.74 [facility] ([place] Comment on above: Performed By: #### F T4, HIVRP, TSH, MMA #### [address] [address] #### B12, SPE #### [address] [address] UAon 01-31-2023 Color (U) Yellow Normal [facility] ([place]) Comment on above: Performed By: #### A DE, ADIFF, CBC, CMP, MDW, LIP, GFR #### [address] [address] Glucose (U) [Mass/Vol] Negative Normal Negative [facility] ([place]) Comment on above: Performed By: #### A DE, ADIFF, CBC, CMP, MDW, LIP, GFR #### [address] [address] Ketones Ql (U) Trace Abnormal Negative [facility] ([place]) Comment on above: Performed By: #### A DE, ADIFF, CBC, CMP, MDW, LIP, GFR #### [address] [address] UA Appear Clear Normal Clear [facility] ([place] Comment on above: Performed By: #### A ED, ADIFF, CBC, CMP, MDW, LIP, GFR #### [address] [address] UA Bili Small Abnormal Negative [facility] ([place] Comment on above: Performed By: #### A DE, ADIFF, CBC, CMP, MDW, LIP, GFR #### [address] [address] UA Blood Negative Normal Negative [facility] ([place] Comment on above: Performed By: #### A DE, ADIFF, CBC, CMP, MDW, LIP, GFR #### [address] [address] UA Leuk Est Negative Normal Negative [facility] ([place] Comment on above: Performed By: #### A DE, ADIFF, CBC, CMP, MDW, LIP, GFR #### [address] [address] UA Nitrite Negative Normal Negative [facility], [facility]1983) Comment on above: Performed By: #### A DE, ADIFF, CBC, CMP, MDW, LIP, GFR #### [address] [address] UA pH 5.5 Normal 5.0 - 8.0 [facility] ([place] Comment on above: Performed By: #### A DE, ADIFF, CBC, CMP, MDW, LIP, GFR #### [address] [address] UA Protein 100 mg/dL Abnormal Negative [facility] ([place] Comment on above: Performed By: #### A DE, ADIFF, CBC, CMP, MDW, LIP, GFR #### [address] [address] UA Spec Grav >=1.030 Abnormal 1.015-1.025 [facility] ([place] Comment on above: Performed By: #### A DE, ADIFF, CBC, CMP, MDW, LIP, GFR #### [address] [address] UA Specimen Type Clean Catch Normal [facility] ([place] Comment on above: Performed By: #### A DE, ADIFF, CBC, CMP, MDW, LIP, GFR #### [place] [id number] UA Urobilinogen 0.2 E.U./dL Normal 0.2-1.0 [facility] ([place]) Comment on above: Performed By: #### A DE, ADIFF, CBC, CMP, MDW, LIP, GFR #### [place] [address] .Auto Diffon 01-10-2023 Basophil, Absolute 0.1 10 3/mcL Normal 0.0-0.2 [facility]) Comment on above: Performed By: #### A DE, ADIFF, CBC, CMP, MDW, LIP, GFR #### [address] [address] Basophils/100 WBC (Bld) 1.0 % Normal 0.0-2.5 A [facility] ([place]) Comment on above: Performed By: #### A DE, ADIFF, CBC, CMP, MDW, LIP, GFR #### [address] [address] Eosinophil, Absolute 0.2 10 3/mcL Normal 0.0-0.4 [facility] ([place]) Comment on above: Performed By: #### A DE, ADIFF, CBC, CMP, MDW, LIP, GFR #### [address] [address] Eosinophils/100 WBC (Bld) 3.4 % Normal 0.0-7.0 [facility] ([place] Comment on above: Performed By: #### A DE, ADIFF, CBC, CMP, MDW, LIP, GFR #### [address] [address] Lymphocyte, Absolute 2.5 10 3/mcL Normal 0.8-3.9 [facility] ([place]) Comment on above: Performed By: #### A DE, ADIFF, CBC, CMP, MDW, LIP, GFR #### [address] [address] Lymphocytes/100 WBC (Bld) 43.3 % Normal 10.0-50.0 [facility] ([place] Comment on above: Performed By: #### A DE, ADIFF, CBC, CMP, MDW, LIP, GFR #### [address] [address] Monocyte, Absolute 0.3 10 3/mcL Normal 0.2-1.0 [facility] ([place]) Comment on above: Performed By: #### A DE, ADIFF, CBC, CMP, MDW, LIP, GFR #### [address] [address] Monocytes/100 WBC (Bld) 5.8 % Normal 1.7-13.0 A [facility] ([place]) Comment on above: Performed By: #### A DE, ADIFF, CBC, CMP, MDW, LIP, GFR #### [address] [address] Neutrophils/100 WBC (Bld) 46.5 % Normal 37.0-80.0 [facility] ([place] Comment on above: Performed By: #### A DE, ADIFF, CBC, CMP, MDW, LIP, GFR #### [address] [address] .GFRon 01-10-2023 GFR Non- 76 ml/min/1.73sqm Normal [facility] ([place]) Comment on above: Result Comment: GFR Population mean for , Non- Americans Ages 20-29 = 116 mL/min/1.73 sq.m. Ages 30-39 = 107 mL/min/1.73 sq.m. Ages 40-49 = 99 mL/min/1.73 sq.m. Ages 50-59 = 93 mL/min/1.73 sq.m. Ages 60-69 = 85 mL/min/1.73 sq.m. Ages 70+ = 75 mL/min/1.73 sq.m. Chronic Kidney Disease: Less than 60 mL/min/1.73 square meters End Stage Renal Disease: Less than 15 mL/min/1.73 square meters Performed By: #### F T4, HIVRP, TSH, MMA #### [address] [address] #### B12, SPE #### [address] [address] GFR 92 ml/min/1.73sqm Normal [facility] ([place] Comment on above: Result Comment: GFR Population mean for , Non- Americans Ages 20-29 = 116 mL/min/1.73 sq.m. Ages 30-39 = 107 mL/min/1.73 sq.m. Ages 40-49 = 99 mL/min/1.73 sq.m. Ages 50-59 = 93 mL/min/1.73 sq.m. Ages 60-69 = 85 mL/min/1.73 sq.m. Ages 70+ = 75 mL/min/1.73 sq.m. Chronic Kidney Disease: Less than 60 mL/min/1.73 square meters End Stage Renal Disease: Less than 15 mL/min/1.73 square meters Performed By: #### F T4, HIVRP, TSH, MMA #### [place] [address] #### B12, SPE #### [place] [address] .MDWon 01-10-2023 Monocyte Distribution Width 18.87 Normal 0.00-20.00 [facility] ([place] Comment on above: Result Comment: For ED adult patients suspected of sepsis, MDW<=20.0 does not rule out sepsis or risk of sepsis Performed By: #### F T4, HIVRP, TSH, MMA #### [place] [address] #### B12, SPE #### [place] [address] .NEUABSon 01-10-2023 Neutrophil, Absolute 2.7 10 3/mcL Low 2.9-6.2 [facility] ([place]) Comment on above: Performed By: #### F T4, HIVRP, TSH, MMA #### [place] [address] #### B12, SPE #### [place] [address] CBCon 01-10-2023 Erythrocyte distribution width (RBC) [Ratio] 13.4 % Normal 11.5-14.5 [facility] ([place] Comment on above: Performed By: #### A DE, ADIFF, CBC, CMP, MDW, LIP, GFR #### [place] [address] Hematocrit (Bld) [Volume fraction] 35.2 % Low 37.0-47.0 [facility] ([place] Comment on above: Performed By: #### A DE, ADIFF, CBC, CMP, MDW, LIP, GFR #### [place] [address] Hgb 11.9 G/dL Low 12.0-16.0 [facility] ([place] Comment on above: Performed By: #### A DE, ADIFF, CBC, CMP, MDW, LIP, GFR #### [address] [address] MCH (RBC) [Entitic mass] 33.1 pg High 27.0-31.2 [facility] ([place] Comment on above: Performed By: #### A DE, ADIFF, CBC, CMP, MDW, LIP, GFR #### [address] [address] MCHC 33.7 G/dL Normal 33.0-37.0 [facility] ([place] Comment on above: Performed By: #### A DE, ADIFF, CBC, CMP, MDW, LIP, GFR #### [address] [address] MCV (RBC) [Entitic vol] 98.3 fL High 80.0-94.0 A [facility] ([place]) Comment on above: Performed By: #### A DE, ADIFF, CBC, CMP, MDW, LIP, GFR #### [address] [address] Platelet 135 10 3/mcL Normal 130-400 [facility] ([place] Comment on above: Performed By: #### A DE, ADIFF, CBC, CMP, MDW, LIP, GFR #### [address] [address] Platelet mean volume (Bld) [Entitic vol] 9.5 fL Normal 7.4-10.4 [facility] ([place] Comment on above: Performed By: #### A DE, ADIFF, CBC, CMP, MDW, LIP, GFR #### [address] [address] RBC 3.58 10 6/mcL Low 4.20-5.40 [facility] ([place] Comment on above: Performed By: #### A DE, ADIFF, CBC, CMP, MDW, LIP, GFR #### [place] [id number] WBC 5.8 10 3/mcL Normal 4.6-10.8 [facility] ([place] Comment on above: Performed By: #### A DE, PRAVEEN, CBC, CMP, MDW, LIP, GFR #### [address] [address] CMPon 01-10-2023 Albumin Level 3.4 G/dL Low 3.5-5.0 [facility] ([place] Comment on above: Performed By: #### F T4, HIVRP, TSH, MMA #### [place] [address] #### B12, SPE #### [address] [address] Albumin/Globulin [Mass ratio] 0.9 {ratio} Low 1.1-2.5 [facility] ([place] Comment on above: Performed By: #### F T4, HIVRP, TSH, MMA #### [place] [address] #### B12, SPE #### [address] [address] ALP [Catalytic activity/Vol] 109 U/L Normal 40-135 [facility] ([place] Comment on above: Performed By: #### F T4, HIVRP, TSH, MMA #### [place] [address] #### B12, SPE #### [address] [address] ALT [Catalytic activity/Vol] 18 U/L Normal 14-59 [facility] ([place] Comment on above: Performed By: #### F T4, HIVRP, TSH, MMA #### [place] [address] #### B12, SPE #### [address] [address] AST [Catalytic activity/Vol] 18 U/L Normal 10-40 [facility] ([place] Comment on above: Performed By: #### F T4, HIVRP, TSH, MMA #### [place] [address] #### B12, SPE #### [address] [address] Bili Total 0.1 mg/dL Low 0.2-1.0 [facility] ([place] Comment on above: Result Comment: Use of this assay is not recommended for patients undergoing treatment with eltrombopag due to the potential for falsely elevated results. Performed By: #### F T4, HIVRP, TSH, MMA #### [place] [address] #### B12, SPE #### [address] [address] BUN/Creatinine Ratio 17 ratio Normal 7-27 [facility] ([place] Comment on above: Performed By: #### F T4, HIVRP, TSH, MMA #### [place] [address] #### B12, SPE #### [address] [address] Calcium [Mass/Vol] 8.2 mg/dL Low 8.4-10.2 [facility] ([place]) Comment on above: Performed By: #### F T4, HIVRP, TSH, MMA #### [place] [address] #### B12, SPE #### [address] [address] Chloride [Moles/Vol] 111 mmol/L High 98-107 [facility] ([place] Comment on above: Performed By: #### F T4, HIVRP, TSH, MMA #### [place] [address] #### B12, SPE #### [address] [address] CO2 [Moles/Vol] 26 mmol/L Normal 22-29 [facility] ([place] Comment on above: Performed By: #### F T4, HIVRP, TSH, MMA #### [place] [address] #### B12, SPE #### [address] [address] Creatinine [Mass/Vol] 0.81 mg/dL Normal 0.55-1.02 [facility] ([place] Comment on above: Performed By: #### F T4, HIVRP, TSH, MMA #### [place] [address] #### B12, SPE #### [address] [address] Electrolyte Balance 8.0 mEq/L Normal 4.0-15.0 [facility] ([place]) Comment on above: Performed By: #### F T4, HIVRP, TSH, MMA #### [place] [address] #### B12, SPE #### [address] [address] Globulin 3.6 G/dL Normal [facility] ([place] Comment on above: Performed By: #### F T4, HIVRP, TSH, MMA #### [place] [address] #### B12, SPE #### [address] [address] Glucose [Mass/Vol] 95 mg/dL Normal 70-105 [facility] ([place]) Comment on above: Performed By: #### F T4, HIVRP, TSH, MMA #### [place] [address] #### B12, SPE #### [address] [address] Potassium [Moles/Vol] 4.0 mmol/L Normal 3.5-5.1 [facility] ([place] Comment on above: Performed By: #### F T4, HIVRP, TSH, MMA #### [place] [address] #### B12, SPE #### [address] [address] Sodium [Moles/Vol] 145 mmol/L Normal 136-145 [facility] ([place] Comment on above: Performed By: #### F T4, HIVRP, TSH, MMA #### [address] [address] #### B12, SPE #### [address] [address] Total Protein 7.0 G/dL Normal 6.4-8.2 [facility] ([place] Comment on above: Performed By: #### F T4, HIVRP, TSH, MMA #### [address] [address] #### B12, SPE #### [address] [address] Urea nitrogen [Mass/Vol] 14 mg/dL Normal 7-18 [facility] ([place] Comment on above: Performed By: #### F T4, HIVRP, TSH, MMA #### [address] [address] #### B12, SPE #### [address] [address] LABORATORYOrdered By: SYSTEM SYSTEM on 01-10-2023 Albumin BCP dye [Mass/Vol] 3.4 G/dL Invalid Interpretation Code 3.5 - 5.0 G/dL AO ADM SS Albumin/Globulin [Mass ratio] 0.9 {ratio} Invalid Interpretation Code 1.1 - 2.5 ratio AO ADM SS ALP [Catalytic activity/Vol] 109 U/L Invalid Interpretation Code 40 - 135 U/L AO ADM SS ALT With P-5'-P [Catalytic activity/Vol] 18 U/L Invalid Interpretation Code 14 - 59 U/L AO ADM SS AST With P-5'-P [Catalytic activity/Vol] 18 U/L Invalid Interpretation Code 10 - 40 U/L AO ADM SS Basophil, Absolute 0.1 103/mcL Invalid Interpretation Code 0.0 - 0.2 10^3/mcL AO Workflow SS Basophils/100 WBC (Bld) 1.0 % Invalid Interpretation Code 0.0 - 2.5 % AO Workflow SS Bilirubin [Mass/Vol] 0.1 mg/dL Invalid Interpretation Code 0.2 - 1.0 mg/dL AO ADM SS Comment on above: Interpretive Data: U se of this assay is not recommended for patients undergoing treatment with eltrombopag due to the potential for falsely elevated results. Calcium [Mass/Vol] 8.2 mg/dL Invalid Interpretation Code 8.4 - 10.2 mg/dL AO ADM SS Chloride [Moles/Vol] 111 mmol/L Invalid Interpretation Code 98 - 107 mmol/L AO ADM SS CO2 [Moles/Vol] 26 mmol/L Invalid Interpretation Code 22 - 29 mmol/L AO ADM SS Creatinine [Mass/Vol] 0.81 mg/dL Invalid Interpretation Code 0.55 - 1.02 mg/dL AO ADM SS Electrolyte Balance 8.0 mEq/L Invalid Interpretation Code 4.0 - 15.0 mEq/L AO ADM SS Eosinophil, Absolute 0.2 103/mcL Invalid Interpretation Code 0.0 - 0.4 10^3/mcL AO Workflow SS Eosinophils/100 WBC (Bld) 3.4 % Invalid Interpretation Code 0.0 - 7.0 % AO Workflow SS Erythrocyte distribution width (RBC) [Ratio] 13.4 % Invalid Interpretation Code 11.5 - 14.5 % AO Workflow SS GFR/1.73 sq M.predicted among blacks MDRD (S/P/Bld) [Vol rate/Area] 92 ml/min/1.73sqm Invalid Interpretation Code AO Chemistry S Comment on above: Interpretive Data: GFR Population mean for , Non- Americans Ages 20-29 = 116 mL/min/1.73 sq.m. Ages 30-39 = 107 mL/min/1.73 sq.m. Ages 40-49 = 99 mL/min/1.73 sq.m. Ages 50-59 = 93 mL/min/1.73 sq.m. Ages 60-69 = 85 mL/min/1.73 sq.m. Ages 70+ = 75 mL/min/1.73 sq.m. Chronic Kidney Disease: Less than 60 mL/min/1.73 square meters End Stage Renal Disease: Less than 15 mL/min/1.73 square meters GFR/1.73 sq M.predicted among non-blacks MDRD (S/P/Bld) [Vol rate/Area] 76 ml/min/1.73sqm Invalid Interpretation Code AO Chemistry S Comment on above: Interpretive Data: GFR Population mean for , Non- Americans Ages 20-29 = 116 mL/min/1.73 sq.m. Ages 30-39 = 107 mL/min/1.73 sq.m. Ages 40-49 = 99 mL/min/1.73 sq.m. Ages 50-59 = 93 mL/min/1.73 sq.m. Ages 60-69 = 85 mL/min/1.73 sq.m. Ages 70+ = 75 mL/min/1.73 sq.m. Chronic Kidney Disease: Less than 60 mL/min/1.73 square meters End Stage Renal Disease: Less than 15 mL/min/1.73 square meters Globulin 3.6 G/dL Invalid Interpretation Code AO ADM SS Glucose [Mass/Vol] 95 mg/dL Invalid Interpretation Code 70 - 105 mg/dL AO ADM SS Hematocrit (Bld) [Volume fraction] 35.2 % Invalid Interpretation Code 37.0 - 47.0 % AO Workflow SS Hemoglobin (Bld) [Mass/Vol] 11.9 G/dL Invalid Interpretation Code 12.0 - 16.0 G/dL AO Workflow SS Lipase [Catalytic activity/Vol] 28 U/L Invalid Interpretation Code 16 - 77 U/L AO ADM SS Lymphocyte, Absolute 2.5 103/mcL Invalid Interpretation Code 0.8 - 3.9 10^3/mcL AO Workflow SS Lymphocytes/100 WBC (Bld) 43.3 % Invalid Interpretation Code 10.0 - 50.0 % AO Workflow SS MCH (RBC) [Entitic mass] 33.1 pg Invalid Interpretation Code 27.0 - 31.2 pg AO Workflow SS MCHC 33.7 G/dL Invalid Interpretation Code 33.0 - 37.0 G/dL AO Workflow SS MCV (RBC) [Entitic vol] 98.3 fL Invalid Interpretation Code 80.0 - 94.0 fL AO Workflow SS Monocyte distribution width Auto (Bld) [Entitic vol] 18.87 1 Invalid Interpretation Code 0.00 - 20.00 AO Workflow SS Comment on above: Result Comment: For ED adult patients suspected of sepsis, MDW<=20.0 does not rule out sepsis or risk of sepsis Monocyte, Absolute 0.3 103/mcL Invalid Interpretation Code 0.2 - 1.0 10^3/mcL AO Workflow SS Monocytes/100 WBC (Bld) 5.8 % Invalid Interpretation Code 1.7 - 13.0 % AO Workflow SS Neutrophil, Absolute 2.7 103/mcL Invalid Interpretation Code 2.9 - 6.2 10^3/mcL AO Workflow SS Neutrophils/100 WBC (Bld) 46.5 % Invalid Interpretation Code 37.0 - 80.0 % AO Workflow SS Platelet mean volume (Bld) [Entitic vol] 9.5 fL Invalid Interpretation Code 7.4 - 10.4 fL AO Workflow SS Platelets (Bld) [#/Vol] 135 103/mcL Invalid Interpretation Code 130 - 400 10^3/mcL AO Workflow SS Potassium [Moles/Vol] 4.0 mmol/L Invalid Interpretation Code 3.5 - 5.1 mmol/L AO ADM SS Protein [Mass/Vol] 7.0 G/dL Invalid Interpretation Code 6.4 - 8.2 G/dL AO ADM SS RBC (Bld) [#/Vol] 3.58 106/mcL Invalid Interpretation Code 4.20 - 5.40 10^6/mcL AO Workflow SS Sodium [Moles/Vol] 145 mmol/L Invalid Interpretation Code 136 - 145 mmol/L AO ADM SS Urea nitrogen [Mass/Vol] 14 mg/dL Invalid Interpretation Code 7 - 18 mg/dL AO ADM SS Urea nitrogen/Creatinine [Mass ratio] 17 ratio Invalid Interpretation Code 7 - 27 ratio AO ADM SS WBC (Bld) [#/Vol] 5.8 103/mcL Invalid Interpretation Code 4.6 - 10.8 10^3/mcL AO Workflow SS LABORATORYOrdered By: Rosetta Rojo on 01-10-2023 Appearance (U) Clear (01/10/23 5:02 PM) Invalid Interpretation Code Clear AO Auto Urine SS Bilirubin Ql (U) Negative (01/10/23 5:02 PM) Invalid Interpretation Code Negative AO Auto Urine SS Color (U) Yellow (01/10/23 5:02 PM) Invalid Interpretation Code AO Auto Urine SS Glucose Test strip (U) [Mass/Vol] Negative Invalid Interpretation Code Negative AO Auto Urine SS HCG ( test) Ql Negative (01/10/23 5:02 PM) Invalid Interpretation Code AO Manual Urine SS Hemoglobin Auto test strip (U) [Mass/Vol] Negative (01/10/23 5:02 PM) Invalid Interpretation Code Negative AO Auto Urine SS Ketones Ql (U) Negative Invalid Interpretation Code Negative AO Auto Urine SS test (u) int Not detected Invalid Interpretation Code AO Manual Urine SS UA Leuk Est Negative (01/10/23 5:02 PM) Invalid Interpretation Code Negative AO Auto Urine SS UA Nitrite Negative (01/10/23 5:02 PM) Invalid Interpretation Code Negative AO Auto Urine SS UA pH 6.0 (01/10/23 5:02 PM) Invalid Interpretation Code 5.0 - 8.0 AO Auto Urine SS UA Protein Negative Invalid Interpretation Code Negative AO Auto Urine SS UA Spec Grav 1.025 (01/10/23 5:02 PM) Invalid Interpretation Code 1.015-1.025 AO Auto Urine SS UA Specimen Type Clean Catch (01/10/23 5:02 PM) Invalid Interpretation Code AO Auto Urine SS UA Urobilinogen 0.2 E.U./dL Invalid Interpretation Code 0.2-1.0 AO Auto Urine SS LIPon 01-10-2023 Lipase Level 28 U/L Normal 16- [facility] [place] Comment on above: Performed By: #### F T4, HIVRP, TSH, MMA #### [place] [address] #### B12, SPE #### [place] [address] PREGUon 01-10-2023 HCG ( test) Ql (U) Negative Normal [facility] ([place] Comment on above: Performed By: #### F T4, HIVRP, TSH, MMA #### [place] [address] #### B12, SPE #### [place] [address] test (u) int Not detected Invalid Interpretation Code [facility] [place] Comment on above: Performed By: #### F T4, HIVRP, TSH, MMA #### [place] [address] #### B12, SPE #### [place] [address] UAon 01-10-2023 Color (U) Yellow Normal [facility] ([place] Comment on above: Performed By: #### F T4, HIVRP, TSH, MMA #### [place] [address] #### B12, SPE #### [address] [address] Glucose (U) [Mass/Vol] Negative Normal Negative [facility] ([place]) Comment on above: Performed By: #### F T4, HIVRP, TSH, MMA #### [address] [address] #### B12, SPE #### [place] [address] Ketones Ql (U) Negative Normal Negative [facility] ([place]) Comment on above: Performed By: #### F T4, HIVRP, TSH, MMA #### [place] [address] #### B12, SPE #### [place] [address] UA Appear Clear Normal Clear [facility] [place] Comment on above: Performed By: #### F T4, HIVRP, TSH, MMA #### [place] [address] #### B12, SPE #### [place] [address] UA Blood Negative Normal Negative [facility] [place] Comment on above: Performed By: #### F T4, HIVRP, TSH, MMA #### [place] [address] #### B12, SPE #### [place] [address] UA Leuk Est Negative Normal Negative [facility] [place] Comment on above: Performed By: #### F T4, HIVRP, TSH, MMA #### [place] [address] #### B12, SPE #### [place] [address] UA Nitrite Negative Normal Negative [facility] [place] Comment on above: Performed By: #### F T4, HIVRP, TSH, MMA #### [place] [address] #### B12, SPE #### [place] [address] UA pH 6.0 Normal 5.0 - 8.0 [facility] [place] Comment on above: Performed By: #### F T4, HIVRP, TSH, MMA #### [place] [address] #### B12, SPE #### [place] [address] UA Protein Negative Normal Negative [facility] [place] Comment on above: Performed By: #### F T4, HIVRP, TSH, MMA #### [place] [address] #### B12, SPE #### [place] [address] UA Spec Grav 1.025 Normal 1.015-1.025 [facility] [place] Comment on above: Performed By: #### F T4, HIVRP, TSH, MMA #### [place] [address] #### B12, SPE #### [place] [address] UA Specimen Type Clean Catch Normal [facility] [place] Comment on above: Performed By: #### F T4, HIVRP, TSH, MMA #### [place] [address] #### B12, SPE #### [place] [address] UA Urobilinogen 0.2 E.U./dL Normal 0.2-1.0 [facility] [place] Comment on above: Performed By: #### F T4, HIVRP, TSH, MMA #### [place] [address] #### B12, SPE #### [place] [address] Urobilinogen (U) [Mass/Vol] Negative Normal Negative [facility] [place] Comment on above: Performed By: #### F T4, HIVRP, TSH, MMA #### [address] [address] #### B12, SPE #### [address] [address] .Auto Diffon 01-02-2023 Basophil, Absolute 0.0 10 3/mcL Normal 0.0-0.2 [facility] ([place]) Comment on above: Performed By: #### A DE, ADIFF, CBC, CMP, MDW, LIP, GFR #### [address] [address] Basophils/100 WBC (Bld) 0.7 % Normal 0.0-2.5 A [facility] ([place]) Comment on above: Performed By: #### A DE, ADIFF, CBC, CMP, MDW, LIP, GFR #### [address] [address] Eosinophil, Absolute 0.2 10 3/mcL Normal 0.0-0.4 [facility] ([place]) Comment on above: Performed By: #### A DE, ADIFF, CBC, CMP, MDW, LIP, GFR #### [address] [address] Eosinophils/100 WBC (Bld) 3.9 % Normal 0.0-7.0 [facility] [place] Comment on above: Performed By: #### A DE, ADIFF, CBC, CMP, MDW, LIP, GFR #### [address] [address] Lymphocyte, Absolute 2.4 10 3/mcL Normal 0.8-3.9 [facility] ([place]) Comment on above: Performed By: #### A DE, ADIFF, CBC, CMP, MDW, LIP, GFR #### [address] [address] Lymphocytes/100 WBC (Bld) 41.5 % Normal 10.0-50.0 [facility] [place] Comment on above: Performed By: #### A DE, ADIFF, CBC, CMP, MDW, LIP, GFR #### [address] [address] Monocyte, Absolute 0.3 10 3/mcL Normal 0.2-1.0 [facility] ([place] Comment on above: Performed By: #### A DE, ADIFF, CBC, CMP, MDW, LIP, GFR #### [address] [address] Monocytes/100 WBC (Bld) 5.5 % Normal 1.7-13.0 A [facility] ([place] Comment on above: Performed By: #### A DE, ADIFF, CBC, CMP, MDW, LIP, GFR #### [address] [address] Neutrophils/100 WBC (Bld) 48.4 % Normal 37.0-80.0 [facility] [place] Comment on above: Performed By: #### A DE, ADIFF, CBC, CMP, MDW, LIP, GFR #### [address] [address] .GFRon 01-02-2023 GFR 94 ml/min/1.73sqm Normal [facility] ([place] Comment on above: Result Comment: GFR Population mean for , Non- Americans Ages 20-29 = 116 mL/min/1.73 sq.m. Ages 30-39 = 107 mL/min/1.73 sq.m. Ages 40-49 = 99 mL/min/1.73 sq.m. Ages 50-59 = 93 mL/min/1.73 sq.m. Ages 60-69 = 85 mL/min/1.73 sq.m. Ages 70+ = 75 mL/min/1.73 sq.m. Chronic Kidney Disease: Less than 60 mL/min/1.73 square meters End Stage Renal Disease: Less than 15 mL/min/1.73 square meters Performed By: #### A DE, ADIFF, CBC, CMP, MDW, LIP, GFR #### [address] [address] GFR Non- 77 ml/min/1.73sqm Normal [facility] [place] Comment on above: Result Comment: GFR Population mean for , Non- Americans Ages 20-29 = 116 mL/min/1.73 sq.m. Ages 30-39 = 107 mL/min/1.73 sq.m. Ages 40-49 = 99 mL/min/1.73 sq.m. Ages 50-59 = 93 mL/min/1.73 sq.m. Ages 60-69 = 85 mL/min/1.73 sq.m. Ages 70+ = 75 mL/min/1.73 sq.m. Chronic Kidney Disease: Less than 60 mL/min/1.73 square meters End Stage Renal Disease: Less than 15 mL/min/1.73 square meters Performed By: #### A DE, ADIFF, CBC, CMP, MDW, LIP, GFR #### [place] [id number] .MDWon 01-02-2023 Monocyte Distribution Width 17.32 Normal 0.00-20.00 [facility] ([place] Comment on above: Result Comment: For ED adult patients suspected of sepsis, MDW<=20.0 does not rule out sepsis or risk of sepsis Performed By: #### A DE, ADIFF, CBC, CMP, MDW, LIP, GFR #### [address] [address] .NEUABSon 01-02-2023 Neutrophil, Absolute 2.8 10 3/mcL Low 2.9-6.2 [facility] ([place] Comment on above: Performed By: #### A DE, ADIFF, CBC, CMP, MDW, LIP, GFR #### [place] [id number] CBCon 01-02-2023 Erythrocyte distribution width (RBC) [Ratio] 13.4 % Normal 11.5-14.5 [facility] [place] Comment on above: Performed By: #### A DE, ADIFF, CBC, CMP, MDW, LIP, GFR #### [address] [address] Hematocrit (Bld) [Volume fraction] 36.2 % Low 37.0-47.0 [facility] [place] Comment on above: Performed By: #### A DE, ADIFF, CBC, CMP, MDW, LIP, GFR #### [address] [address] Hgb 12.5 G/dL Normal 12.0-16.0 [facility] [place] Comment on above: Performed By: #### A DE, ADIFF, CBC, CMP, MDW, LIP, GFR #### [address] [address] MCH (RBC) [Entitic mass] 33.8 pg High 27.0-31.2 [facility] [place] Comment on above: Performed By: #### A DE, ADIFF, CBC, CMP, MDW, LIP, GFR #### [place] [address] MCHC 34.5 G/dL Normal 33.0-37.0 [facility] [place] Comment on above: Performed By: #### A DE, ADIFF, CBC, CMP, MDW, LIP, GFR #### [place] [address] MCV (RBC) [Entitic vol] 97.9 fL High 80.0-94.0 A [facility] ([place] Comment on above: Performed By: #### A DE, ADIFF, CBC, CMP, MDW, LIP, GFR #### [address] [address] Platelet 154 10 3/mcL Normal 130-400 [facility] ([place] Comment on above: Performed By: #### A DE, ADIFF, CBC, CMP, MDW, LIP, GFR #### [address] [address] Platelet mean volume (Bld) [Entitic vol] 9.7 fL Normal 7.4-10.4 [facility] [place] Comment on above: Performed By: #### A DE, ADIFF, CBC, CMP, MDW, LIP, GFR #### [place] [id number] RBC 3.70 10 6/mcL Low 4.20-5.40 [facility] [place] Comment on above: Performed By: #### A DE, ADIFF, CBC, CMP, MDW, LIP, GFR #### [address] [address] WBC 5.7 10 3/mcL Normal 4.6-10.8 [facility] [place] Comment on above: Performed By: #### A DE, ADIFF, CBC, CMP, MDW, LIP, GFR #### [address] [address] CMPon 01-02-2023 Albumin Level 3.5 G/dL Normal 3.5-5.0 [facility] [place] Comment on above: Performed By: #### A DE, ADIFF, CBC, CMP, MDW, LIP, GFR #### [address] [address] Albumin/Globulin [Mass ratio] 1.0 {ratio} Low 1.1-2.5 [facility] [place] Comment on above: Performed By: #### A DE, ADIFF, CBC, CMP, MDW, LIP, GFR #### [address] [address] ALP [Catalytic activity/Vol] 118 U/L Normal 40-135 [facility] ([place] Comment on above: Performed By: #### A DE, ADIFF, CBC, CMP, MDW, LIP, GFR #### [address] [address] ALT [Catalytic activity/Vol] 20 U/L Normal 14-59 [facility] ([place] Comment on above: Performed By: #### A DE, ADIFF, CBC, CMP, MDW, LIP, GFR #### [address] [address] AST [Catalytic activity/Vol] 21 U/L Normal 10-40 [facility] ([place] Comment on above: Performed By: #### A DE, ADIFF, CBC, CMP, MDW, LIP, GFR #### [address] [address] Bili Total 0.2 mg/dL Normal 0.2-1.0 [facility] ([place] Comment on above: Result Comment: Use of this assay is not recommended for patients undergoing treatment with eltrombopag due to the potential for falsely elevated results. Performed By: #### A DE, ADIFF, CBC, CMP, MDW, LIP, GFR #### [address] [address] BUN/Creatinine Ratio 14 ratio Normal 7-27 [facility] ([place] Comment on above: Performed By: #### A DE, ADIFF, CBC, CMP, MDW, LIP, GFR #### [address] [address] Calcium [Mass/Vol] 8.1 mg/dL Low 8.4-10.2 [facility] ([place]) Comment on above: Performed By: #### A DE, ADIFF, CBC, CMP, MDW, LIP, GFR #### [address] [address] Chloride [Moles/Vol] 104 mmol/L Normal 98-107 [facility] ([place] Comment on above: Performed By: #### A DE, ADIFF, CBC, CMP, MDW, LIP, GFR #### [address] [address] CO2 [Moles/Vol] 26 mmol/L Normal 22-29 [facility] ([place] Comment on above: Performed By: #### A DE, ADIFF, CBC, CMP, MDW, LIP, GFR #### [address] [address] Creatinine [Mass/Vol] 0.80 mg/dL Normal 0.55-1.02 [facility] ([place]) Comment on above: Performed By: #### A DE, ADIFF, CBC, CMP, MDW, LIP, GFR #### [address] [address] Electrolyte Balance 10.0 mEq/L Normal 4.0-15.0 [facility] ([place]) Comment on above: Performed By: #### A DE, ADIFF, CBC, CMP, MDW, LIP, GFR #### [address] [address] Globulin 3.6 G/dL Normal [facility] ([place] Comment on above: Performed By: #### A DE, ADIFF, CBC, CMP, MDW, LIP, GFR #### [address] [address] Glucose [Mass/Vol] 91 mg/dL Normal 70-105 [facility] ([place] Comment on above: Performed By: #### A DE, ADIFF, CBC, CMP, MDW, LIP, GFR #### [address] [address] Potassium [Moles/Vol] 3.6 mmol/L Normal 3.5-5.1 [facility] ([place] Comment on above: Performed By: #### A DE, ADIFF, CBC, CMP, MDW, LIP, GFR #### [address] [address] Sodium [Moles/Vol] 140 mmol/L Normal 136-145 [facility] ([place] Comment on above: Performed By: #### A DE, ADIFF, CBC, CMP, MDW, LIP, GFR #### [address] [address] Total Protein 7.1 G/dL Normal 6.4-8.2 [facility] ([place] Comment on above: Performed By: #### A DE, ADIFF, CBC, CMP, MDW, LIP, GFR #### [address] [address] Urea nitrogen [Mass/Vol] 11 mg/dL Normal 7-18 [facility] ([place] Comment on above: Performed By: #### A DE, ADIFF, CBC, CMP, MDW, LIP, GFR #### [address] [address] [address] ABD/PELVIS W/ IV CONTRAST ONLYon 01-02-2023 CT ABD/PELVIS W/ IV CONTRAST ONLY ORIGINAL EXAMINATION: CT OF THE ABDOMEN AND PELVIS WITH CONTRAST01/02/2023 5:34 pm TECHNIQUE: CT of the abdomen and pelvis was performed with the administration of intravenous contrast. Multiplanar reformatted images are provided for review. Automated exposure control, iterative reconstruction, and/or weight based adjustment of the mA/kV was utilized to reduce the radiation dose to as low as reasonably achievable. COMPARISON: CT abdomen pelvis 07/28/2021 HISTORY: ORDERING SYSTEM PROVIDED HISTORY: Reason for Exam: Right sided abdominal pain, right chest pressure FINDINGS: No acute osseous abnormalities. Degenerative changes of the spine. Postsurgical changes of the lumbosacral spine. Thoracic spinal and sacral stimulators are visualized. Bibasilar atelectasis. The heart is normal in size. No pericardial or pleural effusion. The liver, spleen, pancreas, and adrenal glands are unremarkable. Contracted gallbladder. The kidneys enhance symmetrically. No evidence of hydronephrosis or urolithiasis. The bladder is unremarkable. No adnexal masses. Pelvic phleboliths. The appendix is surgically absent. Minimal colonic diverticula with no evidence of diverticulitis. The stomach and small bowel are unremarkable. Atherosclerotic nonaneurysmal aorta. No pathologically enlarged lymph nodes are identified. No free intraperitoneal air or fluid. The abdominal wall is unremarkable. IMPRESSION: No acute inflammatory abnormality. Minimal colonic diverticula with no evidence of diverticulitis. I have personally reviewed the images of this examination and agree with the resident's findings and interpretation. Interpreted by: Tevin Bermudez Preliminary Report By: Sofia Adames Electronically signed By Tevin Bermudez Dictated Date: 01/02/2023 5:40:24 PM Prelim Date: 01/02/2023 5:47:25 PM Sign Date: 01/02/2023 6:05:30 PM Ordering Provider: CURTIS PALAFOX [facility] ([place] ANGIOGRAPHY CHEST W/CONTR Donnie 01-02-2023 CT ANGIOGRAPHY CHEST W/CONTRAST ORIGINAL EXAMINATION: CTA OF THE CHEST 01/02/2023 5:35 pm TECHNIQUE: CTA of the chest was performed after the administration of intravenous contrast. Multiplanar reformatted images are provided for review. MIP images are provided for review. Automated exposure control, iterative reconstruction, and/or weight based adjustment of the mA/kV was utilized to reduce the radiation dose to as low as reasonably achievable. COMPARISON: CT chest December 26, 2020 HISTORY: ORDERING SYSTEM PROVIDED HISTORY: Reason for Exam: chest pain; suspect PE FINDINGS: Pulmonary Arteries: Pulmonary arteries are adequately opacified for evaluation. No evidence of intraluminal filling defect to suggest pulmonary embolism. Main pulmonary artery is normal in caliber. Mediastinum: No evidence of mediastinal lymphadenopathy. The heart and pericardium demonstrate no acute abnormality. There is no acute abnormality of the thoracic aorta. Lungs/pleura: There is emphysematous change, most pronounced at the apices. Ground-glass and bandlike dependent opacities bilaterally most likely represent atelectasis. The lungs are without acute process. No focal consolidation or pulmonary edema. No evidence of pleural effusion or pneumothorax. Upper Abdomen: Limited images of the upper abdomen are without acute abnormality. There are 1.4 cm right and 0.7 cm left adrenal lesions measuring less than 10 Hounsfield units, consistent with adrenal adenomas. Soft Tissues/Bones: Degenerative changes are noted in the spine. No focal soft tissue abnormality is identified. A spinal stimulator device is in place. IMPRESSION: 1. No evidence of pulmonary embolism. 2. Subpleural opacities in a pattern which may reflect atelectasis although infection is not excluded and clinical correlation is advised. 3. Upper lobe predominant emphysematous change. 4. Bilateral adrenal adenomas. Interpreted by: Tevin Bermudez Preliminary Report By: Tevin Bermudez Electronically signed By Tevin Bermudez Dictated Date: 01/02/2023 5:44:52 PM Prelim Date: 01/02/2023 5:52:07 PM Sign Date: 01/02/2023 5:52:07 PM Ordering Provider: CURTIS PALAFOX [facility] ([place] HEAD OR BRAIN W/O CONTRAS Ton 01-02-2023 CT HEAD OR BRAIN W/O CONTRAST ORIGINAL EXAMINATION: CT OF THE HEAD WITHOUT CONTRAST01/02/2023 5:17 pm TECHNIQUE: Axial CT images from skull base to vertex without IV contrast. This exam was performed according to our departmental dose optimization program, and includes the following measures where applicable: automated exposure control, adjustment of the mAs and/or kVp according to patient size and/or exam, and an iterative reconstruction algorithm. COMPARISON: CT head 02/23/2021 HISTORY: ORDERING SYSTEM PROVIDED HISTORY: Reason for Exam: pain; syncope FINDINGS: There is no intracranial hemorrhage, mass effect or abnormal extra-axial fluid collection. No CT evidence for acute infarction. Atherosclerotic calcifications are present in the cavernous carotid arteries bilaterally. The ventricles are unremarkable. The visualized portion of the orbits is unremarkable. The skull base and calvarium demonstrate no acute abnormality. There is mild mucosal thickening of the anterior ethmoid air cells bilaterally and left sphenoid sinus. The remainder of the included paranasal sinuses and mastoid air cells are predominantly clear. IMPRESSION: No acute intracranial abnormality. Paranasal sinus disease as above. I have personally reviewed the images of this examination and agree with the resident's findings and interpretation. Interpreted by: Tevin Bermudez Preliminary Report By: Sofia Adames Electronically signed By Tevin Bermudez Dictated Date: 01/02/2023 5:20:53 PM Prelim Date: 01/02/2023 5:26:31 PM Sign Date: 01/02/2023 5:30:11 PM Ordering Provider: CURTIS PALAFOX Normal [facility] [place] [facility] 01-02-2023 Lipase Level 32 U/L Normal 16-77 [facility] [place] Comment on above: Performed By: #### A DE, ADIFF, CBC, CMP, MDW, LIP, GFR #### [address] [address] TROPHSon 01-02-2023 Troponin I High Sensitivity <4.0 Normal 0.0-51.4 [facility] [place] Comment on above: Performed By: #### A DE, ADIFF, CBC, CMP, MDW, LIP, GFR #### [address] [address] UAon 01-02-2023 Color (U) Yellow Normal [facility] [place] Comment on above: Performed By: #### A DE, ADIFF, CBC, CMP, MDW, LIP, GFR #### [address] [address] Glucose (U) [Mass/Vol] Negative Normal Negative [facility] ([place]) Comment on above: Performed By: #### A DE, ADIFF, CBC, CMP, MDW, LIP, GFR #### [address] [address] Ketones Ql (U) Negative Normal Negative [facility] [place] Comment on above: Performed By: #### A DE, ADIFF, CBC, CMP, MDW, LIP, GFR #### [address] [address] UA Appear Clear Normal Clear [facility] [place] Comment on above: Performed By: #### A DE, ADIFF, CBC, CMP, MDW, LIP, GFR #### [address] [address] UA Blood Negative Normal Negative [facility] [place] Comment on above: Performed By: #### A DE, ADIFF, CBC, CMP, MDW, LIP, GFR #### [address] [address] UA Leuk Est Negative Normal Negative [facility] [place] Comment on above: Performed By: #### A DE, ADIFF, CBC, CMP, MDW, LIP, GFR #### [address] [address] UA Nitrite Negative Normal Negative [facility] [place] Comment on above: Performed By: #### A DE, ADIFF, CBC, CMP, MDW, LIP, GFR #### [address] [address] UA pH 5.5 Normal 5.0 - 8.0 [facility] [place] Comment on above: Performed By: #### A DE, ADIFF, CBC, CMP, MDW, LIP, GFR #### [address] [address] UA Protein Negative Normal Negative [facility] [place] Comment on above: Performed By: #### A DE, ADIFF, CBC, CMP, MDW, LIP, GFR #### [address] [address] UA Spec Grav 1.010 Abnormal 1.015-1.025 [facility] [place] Comment on above: Performed By: #### A DE, ADIFF, CBC, CMP, MDW, LIP, GFR #### [address] [address] UA Specimen Type Clean Catch Normal [facility] [place] Comment on above: Performed By: #### A DE, ADIFF, CBC, CMP, MDW, LIP, GFR #### [address] [address] UA Urobilinogen 0.2 E.U./dL Normal 0.2-1.0 [facility] [place] Comment on above: Performed By: #### A DE, ADIFF, CBC, CMP, MDW, LIP, GFR #### [place] [id number] [place], [place] [address] Urobilinogen (U) [Mass/Vol] Negative Normal Negative [facility] [place] Comment on above: Performed By: #### A DE, ADIFF, CBC, CMP, MDW, LIP, GFR #### [place] [id number] [place], [place] [address] Absolute lymphocyte countOrd ered By: Cj Nice on 12-07-2022 Lymphocytes Auto (Unsp spec) [#/Vol] 1.89 10*3/uL 0.83-4.51 [facility] Basophil percentageOrdered B y: Cj Nice on 12-07-2022 Basophil percentage 88 mg/dL 74-106 [facility] Basophil percentage 7.4 g/dL 6.4-8.2 [facility] Basophil percentage 0.20 mg/dL 0.20-1.00 [facility] Basophil percentage 138 mmol/L 136-145 [facility] Basophil percentage 3.9 mmol/L 3.5-5.1 [facility] Basophil percentage 109 mmol/L 98-107 [facility] Basophils (Bld) [#/Vol] 4.7 10*3/uL 4.4-11.0 [facility] Basophils (Bld) [#/Vol] 2.2 10*3/uL 2.0-7.7 [facility] Basophils/100 WBC (Bld) 47.2 % 47-70 [facility] Basophils/100 WBC (Bld) 5.1 % 0-5 [facility] Basophils/100 WBC (Bld) 0.8 % 0-1 [facility] Bilirubin Test strip Ql (U)O rdered By: Cj Nice on 12-07-2022 Bilirubin Ql (U) Negative Negative [facility] Blood erythrocytes count (nu mber/volume)Ordered By: Cj Nice on 12-07-2022 RBC (Bld) [#/Vol] 3.78 10*6/uL 4.2-5.4 [facility] Blood hemoglobin measurement (mass/volume)Ordered By: Cj Nice on 12-07-2022 Hemoglobin (Bld) [Mass/Vol] 12.4 g/dL 12.0-15.0 [facility] Blood lymphocytes/100 leukoc ytesOrdered By: Cj Nice on 12-07-2022 Lymphocytes/100 WBC (Bld) 40.1 % 19-41 [facility] Blood monocytes/100 leukocyt esOrdered By: Cj Nice on 12-07-2022 Monocytes/100 WBC (Bld) 6.6 % 0-10 [facility] Blood platelet mean volumeOr dered By: Cj Nice on 12-07-2022 Platelet mean volume (Bld) [Entitic vol] 11.9 fL 6.2-12.0 [facility] Determination of erythrocyte mean corpuscular volume (MCV)Ordered By: Cj Nice on 12-07-2022 MCV (RBC) [Entitic vol] 101.1 fL 81-99 [facility] Direct bilirubinOrdered By: Cj Nice on 12-07-2022 Bilirubin.direct [Mass/Vol] 0.07 mg/dL 0.00-0.30 [facility] Hematocrit Auto (Bld) [Volum e fraction]Ordered By: Cj Nice on 12-07-2022 Hematocrit (Bld) [Volume fraction] 38.2 % 37-47 [facility] Ketones Test strip Ql (U)Ord ered By: Cj Nice on 12-07-2022 Ketones Ql (U) Negative Negative [facility] MCHC Auto (RBC) [Mass/Vol]Or dered By: Cj Nice on 12-07-2022 MCHC (RBC) [Mass/Vol] 32.5 g/dL 32-36 [facility] Nitrite Test strip Ql (U)Ord ered By: Cj Nice on 12-07-2022 Nitrite Ql (U) Negative Negative [facility] No Panel InformationOrdered By: Cj Nice on 12-07-2022 Negative [facility] 32.8 pg 27.0-32.0 [facility] 12.5 % 11.6-14.6 [facility] 46.9 fl 35.1-43.9 [facility] 0.200 % 0.0-0.9 [facility] 0 % 0-5 [facility] 80 mL/min >60 [facility] 97 mL/min >60 [facility] 83.36 ml/min [facility] 17.1 RATIO 10-20 [facility] 4.0 g/dL 2.2-4.2 [facility] 80 U/L 13-75 [facility] < 3 pg/mL 3.0-54.0 [facility] 129 U/L 45-117 [facility] 19 U/L 13-56 [facility] 26.0 mmol/L 21.0-32.0 [facility] Platelets bldOrdered By: Garret Nice on 12-07-2022 Platelets (Bld) [#/Vol] 182 10*3/uL 150-450 [facility] Protein Test strip Ql (U)Ord ered By: Cj Nice on 12-07-2022 Protein Ql (U) Negative Negative [facility] Serum or plasma albumin greg urement (mass/volume)Ordered By: Cj Nice on 12-07-2022 Albumin [Mass/Vol] 3.4 g/dL 3.2-5.0 [facility] Serum or plasma calcium greg urement (mass/volume)Ordered By: Cj Nice on 12-07-2022 Calcium [Mass/Vol] 8.5 mg/dL 8.5-10.1 [facility] Serum or plasma creatinine m easurement (mass/volume)Ordered By: Cj Nice on 12-07-2022 Creatinine [Mass/Vol] 0.82 mg/dL 0.55-1.02 [facility] Serum or plasma urea nitroge n measurement (mass/volume)Ordered By: Cj Nice on 12-07-2022 Urea nitrogen [Mass/Vol] 14 mg/dL 7-18 [facility] Thin prep Papanicolaou smear with manual screeningOrdered By: Cj Nice on 12-07-2022 Thin prep Papanicolaou smear with manual screening 15 U/L 15-37 [facility] Thin prep Papanicolaou smear with manual screening 3 5-15 [facility] Urine blood detectionOrdered By: Cj Nice on 12-07-2022 RBC Ql (U) Negative Negative [facility] Urine clarityOrdered By: Garret Nice on 12-07-2022 Clarity (U) Clear Clear [facility] Urine color determinationOrd ered By: Cj Nice on 12-07-2022 Color (U) Yellow Yellow [facility] Urine glucose detectionOrder ed By: Cj Nice on 12-07-2022 Glucose Ql (U) Normal mg/dl Normal [facility] Urine leukocyte esterase det ection by dipstickOrdered By: Cj Nice on 12-07-2022 Leukocyte esterase Test strip Ql (U) Negative Negative [facility] Urine pHOrdered By: Cj daley on 12-07-2022 pH (U) 6.0 [pH] 5.0 - 8.0 [facility] Urine specific gravity measu rementOrdered By: Cj Nice on 12-07-2022 Specific gravity (U) [Rel density] 1.015 1.002-1.030 [facility] Urobilinogen Auto test strip Ql (U)Ordered By: Cj Nice on 12-07-2022 Urobilinogen Ql (U) Normal mg/dl Normal [facility] Absolute lymphocyte countOrd ered By: Priscillaus Jahaira on 09-27-2022 Lymphocytes Auto (Unsp spec) [#/Vol] 2.18 10*3/uL 0.83-4.51 [facility] Basophil percentageOrdered B y: Remus Ungconstance on 09-27-2022 Basophil percentage 89 mg/dL 74-106 [facility] Basophil percentage 7.1 g/dL 6.4-8.2 [facility] Basophil percentage 0.30 mg/dL 0.20-1.00 [facility] Basophil percentage 142 mmol/L 136-145 [facility] Basophil percentage 4.3 mmol/L 3.5-5.1 [facility] Basophil percentage 111 mmol/L 98-107 [facility] Basophils (Bld) [#/Vol] 5.4 10*3/uL 4.4-11.0 [facility] Basophils (Bld) [#/Vol] 2.6 10*3/uL 2.0-7.7 [facility] Basophils/100 WBC (Bld) 48.2 % 47-70 [facility] Basophils/100 WBC (Bld) 2.8 % 0-5 [facility] Basophils/100 WBC (Bld) 0.4 % 0-1 [facility] Blood erythrocytes count (nu mber/volume)Ordered By: Alona Campo on 09-27-2022 RBC (Bld) [#/Vol] 3.57 10*6/uL 4.2-5.4 [facility] Blood hemoglobin measurement (mass/volume)Ordered By: Alona Campo on 09-27-2022 Hemoglobin (Bld) [Mass/Vol] 12.5 g/dL 12.0-15.0 [facility] Blood lymphocytes/100 leukoc ytesOrdered By: Alona Campo on 09-27-2022 Lymphocytes/100 WBC (Bld) 40.7 % 19-41 [facility] Blood monocytes/100 leukocyt esOrdered By: Alona Campo on 09-27-2022 Monocytes/100 WBC (Bld) 7.5 % 0-10 [facility] Blood platelet mean volumeOr dered By: Alona Campo on 09-27-2022 Platelet mean volume (Bld) [Entitic vol] 12.1 fL 6.2-12.0 [facility] Determination of erythrocyte mean corpuscular volume (MCV)Ordered By: Alona Campo on 09-27-2022 MCV (RBC) [Entitic vol] 100.0 fL 81-99 [facility] Hematocrit Auto (Bld) [Volum e fraction]Ordered By: Alona Campo on 09-27-2022 Hematocrit (Bld) [Volume fraction] 35.7 % 37-47 [facility] MCHC Auto (RBC) [Mass/Vol]Or dered By: Alona Campo on 09-27-2022 MCHC (RBC) [Mass/Vol] 35.0 g/dL 32-36 [facility] No Panel InformationOrdered By: Alona Campo on 09-27-2022 35.0 pg 27.0-32.0 [facility] 13.1 % 11.6-14.6 [facility] 48.4 fl 35.1-43.9 [facility] 0.400 % 0.0-0.9 [facility] 0 % 0-5 [facility] 90 mL/min >60 [facility] 108 mL/min >60 [facility] 92.38 ml/min [facility] 14.8 RATIO 10-20 [facility] 3.9 g/dL 2.2-4.2 [facility] 32 U/L 13-75 [facility] 120 U/L 45-117 [facility] 13 U/L 13-56 [facility] 22.0 mmol/L 21.0-32.0 [facility] Platelets bldOrdered By: Priscilla Jahaira on 09-27-2022 Platelets (Bld) [#/Vol] 190 10*3/uL 150-450 [facility] Serum or plasma albumin greg urement (mass/volume)Ordered By: Alona Campo on 09-27-2022 Albumin [Mass/Vol] 3.2 g/dL 3.2-5.0 [facility] Serum or plasma albumin/glob ulin mass ratioOrdered By: Alona Campo on 09-27-2022 Albumin/Globulin [Mass ratio] 0.8 {ratio} 0.9-2.4 [facility] Serum or plasma calcium greg urement (mass/volume)Ordered By: Alona Campo on 09-27-2022 Calcium [Mass/Vol] 8.4 mg/dL 8.5-10.1 [facility] Serum or plasma creatinine m easurement (mass/volume)Ordered By: Alona Campo on 09-27-2022 Creatinine [Mass/Vol] 0.74 mg/dL 0.55-1.02 [facility] Serum or plasma urea nitroge n measurement (mass/volume)Ordered By: Alona Campo on 09-27-2022 Urea nitrogen [Mass/Vol] 11 mg/dL 7-18 [facility] Thin prep Papanicolaou smear with manual screeningOrdered By: Alona Campo on 09-27-2022 Thin prep Papanicolaou smear with manual screening 23 U/L 15-37 [facility] Thin prep Papanicolaou smear with manual screening 9 5-15 [facility] No Panel InformationOrdered By: Александр Valdes on 08-15-2022 [facility] Negative < 50 ng/mL [facility] Urine phencyclidine (PCP) de tectionOrdered By: Александр Valdes on 08-15-2022 Phencyclidine Ql (U) Negative < 25 ng/mL [facility] Absolute lymphocyte countOrd ered By: Dr. Peacock on 07-25-2022 Lymphocytes Auto (Unsp spec) [#/Vol] 2.23 10*3/uL 0.83-4.51 [facility] Basophil percentageOrdered B y: Dr. Peacock on 07-25-2022 Basophil percentage 93 mg/dL 74-106 [facility] Basophil percentage 8.6 g/dL 6.4-8.2 [facility] Basophil percentage 0.20 mg/dL 0.20-1.00 [facility] Basophil percentage 140 mmol/L 136-145 [facility] Basophil percentage 3.6 mmol/L 3.5-5.1 [facility] Basophil percentage 110 mmol/L 98-107 [facility] Basophils (Bld) [#/Vol] 7.1 10*3/uL 4.4-11.0 [facility] Basophils (Bld) [#/Vol] 4.2 10*3/uL 2.0-7.7 [facility] Basophils/100 WBC (Bld) 59.2 % 47-70 [facility] Basophils/100 WBC (Bld) 3.5 % 0-5 [facility] Basophils/100 WBC (Bld) 0.6 % 0-1 [facility] Basophil percentage 0 SEEN /hpf 0-5 [facility] Bilirubin Test strip Ql (U)O rdered By: Dr. Peacock on 07-25-2022 Bilirubin Ql (U) Negative Negative [facility] Blood erythrocytes count (nu mber/volume)Ordered By: Dr. Peacock on 07-25-2022 RBC (Bld) [#/Vol] 4.20 10*6/uL 4.2-5.4 [facility] Blood hemoglobin measurement (mass/volume)Ordered By: Dr. Peacock on 07-25-2022 Hemoglobin (Bld) [Mass/Vol] 14.1 g/dL 12.0-15.0 [facility] Blood lymphocytes/100 leukoc ytesOrdered By: Dr. Peacock on 07-25-2022 Lymphocytes/100 WBC (Bld) 31.4 % 19-41 [facility] Blood monocytes/100 leukocyt esOrdered By: Dr. Peacock on 07-25-2022 Monocytes/100 WBC (Bld) 4.9 % 0-10 [facility] Blood platelet mean volumeOr dered By: Dr. Peacock on 07-25-2022 Platelet mean volume (Bld) [Entitic vol] 11.0 fL 6.2-12.0 [facility] Determination of erythrocyte mean corpuscular volume (MCV)Ordered By: Dr. Peacock on 07-25-2022 MCV (RBC) [Entitic vol] 99.8 fL 81-99 [facility] Hematocrit Auto (Bld) [Volum e fraction]Ordered By: Dr. Peacock on 07-25-2022 Hematocrit (Bld) [Volume fraction] 41.9 % 37-47 [facility] Ketones Test strip Ql (U)Ord ered By: Dr. Peacock on 07-25-2022 Ketones Ql (U) Negative Negative [facility] MCHC Auto (RBC) [Mass/Vol]Or dered By: Dr. Peacock on 07-25-2022 MCHC (RBC) [Mass/Vol] 33.7 g/dL 32-36 [facility] Mucus LM Ql (Urine sed)Order ed By: Dr. Peacock on 07-25-2022 Mucus Ql (Urine sed) 0 SEEN /hpf [facility] Nitrite Test strip Ql (U)Ord ered By: Dr. Peacock on 07-25-2022 Nitrite Ql (U) Negative Negative [facility] No Panel InformationOrdered By: Dr. Peacock on 07-25-2022 33.6 pg 27.0-32.0 [facility] 12.8 % 11.6-14.6 [facility] 47.0 fl 35.1-43.9 [facility] 0.400 % 0.0-0.9 [facility] 0 % 0-5 [facility] 86 mL/min >60 [facility] 105 mL/min >60 [facility] 89.72 ml/min [facility] 13.1 RATIO 10-20 [facility] 4.6 g/dL 2.2-4.2 [facility] 27 U/L 13-75 [facility] 139 U/L 45-117 [facility] 17 U/L 13-56 [facility] 25.0 mmol/L 21.0-32.0 [facility] Platelets bldOrdered By: Dr. Peacock on 07-25-2022 Platelets (Bld) [#/Vol] 204 10*3/uL 150-450 [facility] Protein Test strip Ql (U)Ord ered By: Dr. Peacock on 07-25-2022 Protein Ql (U) 15 mg/dl Negative [facility] Serum or plasma albumin greg urement (mass/volume)Ordered By: Dr. Peacock on 07-25-2022 Albumin [Mass/Vol] 4.0 g/dL 3.2-5.0 [facility] Serum or plasma albumin/glob ulin mass ratioOrdered By: Dr. Peacock on 07-25-2022 Albumin/Globulin [Mass ratio] 0.9 {ratio} 0.9-2.4 [facility] Serum or plasma calcium greg urement (mass/volume)Ordered By: Dr. Peacock on 07-25-2022 Calcium [Mass/Vol] 9.0 mg/dL 8.5-10.1 [facility] Serum or plasma creatinine m easurement (mass/volume)Ordered By: Dr. Peacock on 07-25-2022 Creatinine [Mass/Vol] 0.77 mg/dL 0.55-1.02 [facility] Serum or plasma urea nitroge n measurement (mass/volume)Ordered By: Dr. Peacock on 07-25-2022 Urea nitrogen [Mass/Vol] 10 mg/dL 7-18 [facility] Squamous epithelial cells de tection in urine sediment by light microscopyOrdered By: Dr. Peacock on 07-25-2022 Epithelial cells.squamous LM Ql (Urine sed) 0-5 SEEN /hpf 5-10 [facility] Thin prep Papanicolaou smear with manual screeningOrdered By: Dr. Peacock on 07-25-2022 Thin prep Papanicolaou smear with manual screening 14 U/L 15-37 [facility] Thin prep Papanicolaou smear with manual screening 5 5-15 [facility] Urine blood detectionOrdered By: Dr. Peacock on 07-25-2022 RBC Ql (U) Negative Negative [facility] RBC Ql (U) 0 SEEN /hpf 0-5 [facility] Urine clarityOrdered By: Dr. Peacock on 07-25-2022 Clarity (U) Clear Clear [facility] Urine color determinationOrd ered By: Dr. Peacock on 07-25-2022 Color (U) Yellow Yellow [facility] Urine glucose detectionOrder ed By: Dr. Peacock on 07-25-2022 Glucose Ql (U) Normal mg/dl Normal [facility] Urine leukocyte esterase det ection by dipstickOrdered By: Dr. Peacock on 07-25-2022 Leukocyte esterase Test strip Ql (U) Negative Negative [facility] Urine pHOrdered By: Dr. Malorie menard on 07-25-2022 pH (U) 6.5 [pH] 5.0 - 8.0 [facility] Urine sediment bacteria coun t by microscopy (number/high power field)Ordered By: Dr. Peacock on 07-25-2022 Bacteria LM.HPF (Urine sed) [#/Area] 0 /[HPF] None Seen [facility] Urine specific gravity measu rementOrdered By: Dr. Peacock on 07-25-2022 Specific gravity (U) [Rel density] 1.015 1.002-1.030 [facility] Urobilinogen Auto test strip Ql (U)Ordered By: Dr. Peacock on 07-25-2022 Urobilinogen Ql (U) Normal mg/dl Normal [facility] LABORATORYOrdered By: [employer] on 07-21-2022 Albumin BCP dye [Mass/Vol] 3.5 G/dL Invalid Interpretation Code 3.5 - 5.0 G/dL AO ADM SS Albumin/Globulin [Mass ratio] 1.1 {ratio} Invalid Interpretation Code 1.1 - 2.5 ratio AO ADM SS ALP [Catalytic activity/Vol] 110 U/L Invalid Interpretation Code 40 - 135 U/L AO ADM SS ALT With P-5'-P [Catalytic activity/Vol] 20 U/L Invalid Interpretation Code 14 - 59 U/L AO ADM SS AST With P-5'-P [Catalytic activity/Vol] 18 U/L Invalid Interpretation Code 10 - 40 U/L AO ADM SS Bilirubin [Mass/Vol] 0.2 mg/dL Invalid Interpretation Code 0.2 - 1.0 mg/dL AO ADM SS Calcium [Mass/Vol] 8.4 mg/dL Invalid Interpretation Code 8.4 - 10.2 mg/dL AO ADM SS Chloride [Moles/Vol] 104 mmol/L Invalid Interpretation Code 98 - 107 mmol/L AO ADM SS CO2 [Moles/Vol] 25 mmol/L Invalid Interpretation Code 22 - 29 mmol/L AO ADM SS Creatinine [Mass/Vol] 0.71 mg/dL Invalid Interpretation Code 0.55 - 1.02 mg/dL AO ADM SS Electrolyte Balance 11.0 mEq/L Invalid Interpretation Code 4.0 - 15.0 mEq/L AO ADM SS GFR/1.73 sq M.predicted among blacks MDRD (S/P/Bld) [Vol rate/Area] 108 ml/min/1.73sqm Invalid Interpretation Code AO Chemistry S GFR/1.73 sq M.predicted among non-blacks MDRD (S/P/Bld) [Vol rate/Area] 89 ml/min/1.73sqm Invalid Interpretation Code AO Chemistry S Globulin 3.3 G/dL Invalid Interpretation Code AO ADM SS Glucose [Mass/Vol] 93 mg/dL Invalid Interpretation Code 70 - 105 mg/dL AO ADM SS Lipase [Catalytic activity/Vol] 22 U/L Invalid Interpretation Code 16 - 77 U/L AO ADM SS Potassium [Moles/Vol] 3.7 mmol/L Invalid Interpretation Code 3.5 - 5.1 mmol/L AO ADM SS Protein [Mass/Vol] 6.8 G/dL Invalid Interpretation Code 6.4 - 8.2 G/dL AO ADM SS Sodium [Moles/Vol] 140 mmol/L Invalid Interpretation Code 136 - 145 mmol/L AO ADM SS Urea nitrogen [Mass/Vol] 10 mg/dL Invalid Interpretation Code 7 - 18 mg/dL AO ADM SS Urea nitrogen/Creatinine [Mass ratio] 14 ratio Invalid Interpretation Code 7 - 27 ratio AO ADM SS LABORATORYOrdered By: Noy Wood on 07-21-2022 Appearance (U) Clear (07/21/22 2:08 PM) Invalid Interpretation Code Clear AO Auto Urine SS Bacteria LM.HPF (Urine sed) [#/Area] 1 /[HPF] Invalid Interpretation Code AO Auto Urine SS Bilirubin Ql (U) Negative (07/21/22 2:08 PM) Invalid Interpretation Code Negative AO Auto Urine SS Color (U) Yellow (07/21/22 2:08 PM) Invalid Interpretation Code AO Auto Urine SS Glucose Test strip (U) [Mass/Vol] Negative Invalid Interpretation Code Negativemg/d L AO Auto Urine SS Hemoglobin Auto test strip (U) [Mass/Vol] Negative (07/21/22 2:08 PM) Invalid Interpretation Code Negative AO Auto Urine SS Ketones Ql (U) Negative Invalid Interpretation Code Negativemg/d L AO Auto Urine SS UA Leuk Est Negative (07/21/22 2:08 PM) Invalid Interpretation Code Negative AO Auto Urine SS UA Mucous 1+ /HPF Invalid Interpretation Code AO Auto Urine SS UA Nitrite Negative (07/21/22 2:08 PM) Invalid Interpretation Code Negative AO Auto Urine SS UA pH 5.5 (07/21/22 2:08 PM) Invalid Interpretation Code 5.0 - 8.0 AO Auto Urine SS UA Protein Negative Invalid Interpretation Code Negativemg/d L AO Auto Urine SS UA RBC None Seen /HPF Invalid Interpretation Code None Seen/HPF AO Auto Urine SS UA Spec Grav 1.025 (07/21/22 2:08 PM) Invalid Interpretation Code 1.015-1.025 AO Auto Urine SS UA Specimen Type Clean Catch (07/21/22 2:08 PM) Invalid Interpretation Code AO Auto Urine SS UA Squam Epithelial 0-5 /HPF Invalid Interpretation Code None Seen/HPF AO Auto Urine SS UA Urobilinogen 0.2 E.U./dL Invalid Interpretation Code 0.2-1.0E.U./ dL AO Auto Urine SS WBC LM.HPF (Urine sed) [#/Area] 0-5 /HPF Invalid Interpretation Code None Seen/HPF AO Auto Urine SS LABORATORYOrdered By: Jatinder Gotti on 07-21-2022 Basophil, Absolute 0.1 103/mcL Invalid Interpretation Code 0.0 - 0.2 10^3/mcL AO Workflow SS Basophils/100 WBC (Bld) 0.9 % Invalid Interpretation Code 0.0 - 2.5 % AO Workflow SS Eosinophil, Absolute 0.2 103/mcL Invalid Interpretation Code 0.0 - 0.4 10^3/mcL AO Workflow SS Eosinophils/100 WBC (Bld) 2.5 % Invalid Interpretation Code 0.0 - 7.0 % AO Workflow SS Erythrocyte distribution width (RBC) [Ratio] 13.4 % Invalid Interpretation Code 11.5 - 14.5 % AO Workflow SS Hematocrit (Bld) [Volume fraction] 36.0 % Invalid Interpretation Code 37.0 - 47.0 % AO Workflow SS Hemoglobin (Bld) [Mass/Vol] 12.4 G/dL Invalid Interpretation Code 12.0 - 16.0 G/dL AO Workflow SS Lymphocyte, Absolute 1.7 103/mcL Invalid Interpretation Code 0.8 - 3.9 10^3/mcL AO Workflow SS Lymphocytes/100 WBC (Bld) 27.7 % Invalid Interpretation Code 10.0 - 50.0 % AO Workflow SS MCH (RBC) [Entitic mass] 33.6 pg Invalid Interpretation Code 27.0 - 31.2 pg AO Workflow SS MCHC 34.4 G/dL Invalid Interpretation Code 33.0 - 37.0 G/dL AO Workflow SS MCV (RBC) [Entitic vol] 97.8 fL Invalid Interpretation Code 80.0 - 94.0 fL AO Workflow SS Monocyte distribution width Auto (Bld) [Entitic vol] 18.57 Invalid Interpretation Code 0.00 - 20.00 AO Workflow SS Comment on above: Result Comment: For ED adult patients suspected of sepsis, MDW<=20.0 does not rule out sepsis or risk of sepsis Monocyte, Absolute 0.4 103/mcL Invalid Interpretation Code 0.2 - 1.0 10^3/mcL AO Workflow SS Monocytes/100 WBC (Bld) 6.4 % Invalid Interpretation Code 1.7 - 13.0 % AO Workflow SS Neutrophil, Absolute 3.8 103/mcL Invalid Interpretation Code 2.9 - 6.2 10^3/mcL AO Workflow SS Neutrophils/100 WBC (Bld) 62.5 % Invalid Interpretation Code 37.0 - 80.0 % AO Workflow SS Platelet mean volume (Bld) [Entitic vol] 8.9 fL Invalid Interpretation Code 7.4 - 10.4 fL AO Workflow SS Platelets (Bld) [#/Vol] 176 103/mcL Invalid Interpretation Code 130 - 400 10^3/mcL AO Workflow SS RBC (Bld) [#/Vol] 3.68 106/mcL Invalid Interpretation Code 4.20 - 5.40 10^6/mcL AO Workflow SS WBC (Bld) [#/Vol] 6.0 103/mcL Invalid Interpretation Code 4.6 - 10.8 10^3/mcL AO Workflow SS Absolute lymphocyte countOrd ered By: Dr. Garza on 06-12-2022 Lymphocytes Auto (Unsp spec) [#/Vol] 1.91 10*3/uL 0.83-4.51 [facility] Basophil percentageOrdered B y: Dr. Garza on 06-12-2022 Basophil percentage 95 mg/dL 74-106 [facility] Basophil percentage 7.5 g/dL 6.4-8.2 [facility] Basophil percentage 0.20 mg/dL 0.20-1.00 [facility] Basophil percentage 141 mmol/L 136-145 [facility] Basophil percentage 3.6 mmol/L 3.5-5.1 [facility] Basophil percentage 109 mmol/L 98-107 [facility] Basophils (Bld) [#/Vol] 4.3 10*3/uL 4.4-11.0 [facility] Basophils (Bld) [#/Vol] 2.0 10*3/uL 2.0-7.7 [facility] Basophils/100 WBC (Bld) 0.5 % 0-1 [facility] Basophils/100 WBC (Bld) 45.6 % 47-70 [facility] Basophils/100 WBC (Bld) 3.3 % 0-5 [facility] Bilirubin [Mass/Vol] 0.20 mg/dL 0.20-1.00 [facility] Comment on above: For patients on eltr ombopag therapy, use of Dimension [place] TBIL is not recommended. Chloride [Moles/Vol] 109 mmol/L 98-107 [facility] Eosinophils/100 WBC (Bld) 3.3 % 0-5 [facility] Glucose [Mass/Vol] 95 mg/dL 74-106 [facility] Neutrophils (Bld) [#/Vol] 2.0 10*3/uL 2.0-7.7 [facility] Neutrophils/100 WBC (Bld) 45.6 % 47-70 [facility] Potassium [Moles/Vol] 3.6 mmol/L 3.5-5.1 [facility] Protein [Mass/Vol] 7.5 g/dL 6.4-8.2 [facility] Sodium [Moles/Vol] 141 mmol/L 136-145 [facility] WBC (Bld) [#/Vol] 4.3 10*3/uL 4.4-11.0 [facility] Blood erythrocytes count (nu mber/volume)Ordered By: Dr. Garza on 06-12-2022 RBC (Bld) [#/Vol] 3.77 10*6/uL 4.2-5.4 [facility] Blood hemoglobin measurement (mass/volume)Ordered By: Dr. Garza on 06-12-2022 Hemoglobin (Bld) [Mass/Vol] 12.7 g/dL 12.0-15.0 [facility] Blood lymphocytes/100 leukoc ytesOrdered By: Dr. Garza on 06-12-2022 Lymphocytes/100 WBC (Bld) 44.6 % 19-41 [facility] Blood monocytes/100 leukocyt esOrdered By: Dr. Garza on 06-12-2022 Monocytes/100 WBC (Bld) 5.8 % 0-10 [facility] Blood platelet mean volumeOr dered By: Dr. Garza on 06-12-2022 Platelet mean volume (Bld) [Entitic vol] 11.1 fL 6.2-12.0 [facility] Determination of erythrocyte mean corpuscular volume (MCV)Ordered By: Dr. Garza on 06-12-2022 MCV (RBC) [Entitic vol] 102.9 fL 81-99 [facility] Direct bilirubinOrdered By: Dr. Garza on 06-12-2022 Bilirubin.direct [Mass/Vol] 0.07 mg/dL 0.00-0.30 [facility] Hematocrit Auto (Bld) [Volum e fraction]Ordered By: Dr. Garza on 06-12-2022 Hematocrit (Bld) [Volume fraction] 38.8 % 37-47 [facility] Laboratory - Chemistry and C hemistry - challengeOrdered By: Dr. Garza on 06-12-2022 ALP [Catalytic activity/Vol] 122 U/L 45-117 [facility] ALT [Catalytic activity/Vol] 17 U/L 13-56 [facility] CO2 [Moles/Vol] 26.0 mmol/L 21.0-32.0 [facility] Globulin (S) [Mass/Vol] 4.0 g/dL 2.2-4.2 [facility] Lipase [Catalytic activity/Vol] 80 U/L 73-393 [facility] Urea nitrogen/Creatinine [Mass ratio] 10.9 mg/mg 10-20 [facility] Laboratory - Hematology and Cell countsOrdered By: Dr. Garza on 06-12-2022 Erythrocyte distribution width (RBC) [Entitic vol] 46.5 fL 35.1-43.9 [facility] Erythrocyte distribution width (RBC) [Ratio] 12.3 % 11.6-14.6 [facility] Immature granulocytes/100 WBC (Bld) 0.200 % 0.0-0.9 [facility] Comment on above: IG% - Immature Granu locytes (promyelocytes, myelocytes and metamyelocytes) > 1% indicates that a LEFT SHIFT is Present. MCH (RBC) [Entitic mass] 33.7 pg 27.0-32.0 [facility] Nucleated RBC/100 WBC (Bld) [Ratio] 0 % 0-5 [facility] MCHC Auto (RBC) [Mass/Vol]Or dered By: Dr. Garza on 06-12-2022 MCHC (RBC) [Mass/Vol] 32.7 g/dL 32-36 [facility] No Panel InformationOrdered By: Dr. Garza on 06-12-2022 Estimated Creatinine Clearance Calc 93.36 ml/min [facility] Estimated GFR (MDRD) Amer 109 mL/min >60 [facility] Comment on above: GFR Calc Estimated GFR (MDRD) Non-Af Amer 90 mL/min >60 [facility] Comment on above: Non- GFR Calc 33.7 pg 27.0-32.0 [facility] 12.3 % 11.6-14.6 [facility] 46.5 fl 35.1-43.9 [facility] 0.200 % 0.0-0.9 [facility] 0 % 0-5 [facility] 90 mL/min >60 [facility] 109 mL/min >60 [facility] 93.36 ml/min [facility] 10.9 RATIO 10-20 [facility] 4.0 g/dL 2.2-4.2 [facility] 80 U/L 73-393 [facility] 122 U/L 45-117 [facility] 17 U/L 13-56 [facility] 26.0 mmol/L 21.0-32.0 [facility] Platelets bldOrdered By: Dr. Garza on 06-12-2022 Platelets (Bld) [#/Vol] 170 10*3/uL 150-450 [facility] Serum or plasma albumin greg urement (mass/volume)Ordered By: Dr. Garza on 06-12-2022 Albumin [Mass/Vol] 3.5 g/dL 3.2-5.0 [facility] Serum or plasma calcium greg urement (mass/volume)Ordered By: Dr. Garza on 06-12-2022 Calcium [Mass/Vol] 8.7 mg/dL 8.5-10.1 [facility] Serum or plasma creatinine m easurement (mass/volume)Ordered By: Dr. Garza on 06-12-2022 Creatinine [Mass/Vol] 0.74 mg/dL 0.55-1.02 [facility] Comment on above: The validity of the calculated GFR & GFRAA in patients over 70 years has not been determined. Clinical correlation is essential. Serum or plasma urea nitroge n measurement (mass/volume)Ordered By: Dr. Garza on 06-12-2022 Urea nitrogen [Mass/Vol] 8 mg/dL 7-18 [facility] Thin prep Papanicolaou smear with manual screeningOrdered By: Dr. Garza on 06-12-2022 Thin prep Papanicolaou smear with manual screening 14 U/L 15-37 [facility] Thin prep Papanicolaou smear with manual screening 6 5-15 [facility] Laboratory - Microbiology an d Antimicrobial susceptibilityOrdered By: Marisol Fuchs on 04-14-2022 SARS-CoV-2 (COVID-19) RNA KAROLYN+probe Ql (Unsp spec) Not detected Not Detect [facility] Comment on above: Normal Reference Ran ge: Not DetectedMethod:(RT-PCR) real-time reverse transcriptase PCRLuminex MURTAZA Instrument*The Food and Drug Administration (FDA) has issued an Emergency Use Authorization (EAU) for the MURTAZA SARS-CoV-2 Assay for the rapid detection of the virus that causes COVID-19. This test has been validated, but the FDAs independent review of this validation is pending.*Negative results do not preclude infection and should not be used as the sole basis for treatment or patient management. Optimum specimen types and timing for peak viral levels during infections caused by SARS-CoV-2 have not been determined. Collection of multiple specimens from the same patient may be necessary to detect the virus. The possibility of a false negative result should be considered if the patient has clinical presentation or has had recent exposure. Laboratory - Microbiology an d Antimicrobial susceptibilityon 04-14-2022 S. pyogenes Ag IA Ql (Unsp spec) Negative [facility] No Panel Informationon 04-14 Influenza Types A,B Rapid (Clinic) Negative [facility] Absolute lymphocyte countOrd ered By: Dr. Rhodes on 02-02-2022 Lymphocytes Auto (Unsp spec) [#/Vol] 1.78 10*3/uL 0.83-4.51 [facility] Basophil percentageOrdered B y: Dr. Rhodes on 02-02-2022 Basophil percentage 0 SEEN /hpf 0-5 [facility] Basophils/100 WBC (Bld) 0.6 % 0-1 [facility] Bilirubin [Mass/Vol] 0.10 mg/dL 0.20-1.00 [facility] Comment on above: For patients on eltr ombopag therapy, use of Dimension [place] TBIL is not recommended. Chloride [Moles/Vol] 110 mmol/L 98-107 [facility] Eosinophils/100 WBC (Bld) 2.9 % 0-5 [facility] Glucose [Mass/Vol] 108 mg/dL 74-106 [facility] Comment on above: Fasting Glucose resu lt from 100 to 125 mg/dL suggests IMPAIRED HOMEOSTASIS per A.D.A. criteria. Neutrophils (Bld) [#/Vol] 2.9 10*3/uL 2.0-7.7 [facility] Neutrophils/100 WBC (Bld) 56.3 % 47-70 [facility] Potassium [Moles/Vol] 3.3 mmol/L 3.5-5.1 [facility] Protein [Mass/Vol] 6.9 g/dL 6.4-8.2 [facility] Sodium [Moles/Vol] 141 mmol/L 136-145 [facility] WBC (Bld) [#/Vol] 5.2 10*3/uL 4.4-11.0 [facility] Beta hCG serum qualOrdered B y: Dr. Rhodes on 02-02-2022 Beta HCG ( test) Ql Negative [facility] Bilirubin Test strip Ql (U)O rdered By: Dr. Rhodes on 02-02-2022 Bilirubin Ql (U) Negative Negative [facility] Blood erythrocytes count (nu mber/volume)Ordered By: Dr. Rhodes on 02-02-2022 RBC (Bld) [#/Vol] 3.37 10*6/uL 4.2-5.4 [facility] Blood hemoglobin measurement (mass/volume)Ordered By: Dr. Rhodes on 02-02-2022 Hemoglobin (Bld) [Mass/Vol] 11.7 g/dL 12.0-15.0 [facility] Blood lymphocytes/100 leukoc ytesOrdered By: Dr. Rhodes on 02-02-2022 Lymphocytes/100 WBC (Bld) 34.2 % 19-41 [facility] Blood monocytes/100 leukocyt esOrdered By: Dr. Rhodes on 02-02-2022 Monocytes/100 WBC (Bld) 5.8 % 0-10 [facility] Blood platelet mean volumeOr dered By: Dr. Rhodes on 02-02-2022 Platelet mean volume (Bld) [Entitic vol] 11.5 fL 6.2-12.0 [facility] Determination of erythrocyte mean corpuscular volume (MCV)Ordered By: Dr. Rhodes on 02-02-2022 MCV (RBC) [Entitic vol] 101.5 fL 81-99 [facility] Hematocrit Auto (Bld) [Volum e fraction]Ordered By: Dr. Rhodes on 02-02-2022 Hematocrit (Bld) [Volume fraction] 34.2 % 37-47 [facility] Ketones Test strip Ql (U)Ord ered By: Dr. Rhodes on 02-02-2022 Ketones Ql (U) Negative Negative [facility] Laboratory - Chemistry and C hemistry - challengeOrdered By: Dr. Rhodes on 02-02-2022 ALP [Catalytic activity/Vol] 124 U/L 45-117 [facility] ALT [Catalytic activity/Vol] 14 U/L 13-56 [facility] CO2 [Moles/Vol] 27.0 mmol/L 21.0-32.0 [facility] Globulin (S) [Mass/Vol] 3.7 g/dL 2.2-4.2 [facility] Lipase [Catalytic activity/Vol] 89 U/L 73-393 [facility] Urea nitrogen/Creatinine [Mass ratio] 13.9 mg/mg 10-20 [facility] Laboratory - Hematology and Cell countsOrdered By: Dr. Rhodes on 02-02-2022 Erythrocyte distribution width (RBC) [Entitic vol] 47.9 fL 35.1-43.9 [facility] Erythrocyte distribution width (RBC) [Ratio] 13.0 % 11.6-14.6 [facility] Immature granulocytes/100 WBC (Bld) 0.200 % 0.0-0.9 [facility] Comment on above: IG% - Immature Granu locytes (promyelocytes, myelocytes and metamyelocytes) > 1% indicates that a LEFT SHIFT is Present. MCH (RBC) [Entitic mass] 34.7 pg 27.0-32.0 [facility] Nucleated RBC/100 WBC (Bld) [Ratio] 0 % 0-5 [facility] MCHC Auto (RBC) [Mass/Vol]Or dered By: Dr. Rhodes on 02-02-2022 MCHC (RBC) [Mass/Vol] 34.2 g/dL 32-36 [facility] Mucus LM Ql (Urine sed)Order ed By: Dr. Rhodes on 02-02-2022 Mucus Ql (Urine sed) 0 SEEN /hpf [facility] Nitrite Test strip Ql (U)Ord ered By: Dr. Rhodes on 02-02-2022 Nitrite Ql (U) Negative Negative [facility] No Panel InformationOrdered By: Dr. Rhodes on 02-02-2022 Estimated Creatinine Clearance Calc 95.95 ml/min [facility] Estimated GFR (MDRD) Amer 113 mL/min >60 [facility] Comment on above: GFR Calc Estimated GFR (MDRD) Non-Af Amer 93 mL/min >60 [facility] Comment on above: Non- GFR Calc Troponin I High Sensitivity 4 pg/mL 3.0-54.0 [facility] Comment on above: Please Note: New Catina t Units and Gender Specific Reference Ranges. For more information see Policy Stat Procedure [place] High Sensitivity Troponin (TNIH) and attachments. Platelets bldOrdered By: Dr. Rhodes on 02-02-2022 Platelets (Bld) [#/Vol] 156 10*3/uL 150-450 [facility] Protein Test strip Ql (U)Ord ered By: Dr. Rhodes on 02-02-2022 Protein Ql (U) Negative Negative [facility] Serum or plasma albumin greg urement (mass/volume)Ordered By: Dr. Rhodes on 02-02-2022 Albumin [Mass/Vol] 3.2 g/dL 3.2-5.0 [facility] Serum or plasma albumin/glob ulin mass ratioOrdered By: Dr. Rhodes on 02-02-2022 Albumin/Globulin [Mass ratio] 0.9 {ratio} 0.9-2.4 [facility] Serum or plasma calcium greg urement (mass/volume)Ordered By: Dr. Rhodes on 02-02-2022 Calcium [Mass/Vol] 8.2 mg/dL 8.5-10.1 [facility] Serum or plasma choriogonado tropin detectionOrdered By: Dr. Rhodes on 02-02-2022 HCG ( test) Ql 6 mIU/mL <4 [facility] Serum or plasma creatinine m easurement (mass/volume)Ordered By: Dr. Rhodes on 02-02-2022 Creatinine [Mass/Vol] 0.72 mg/dL 0.55-1.02 [facility] Comment on above: The validity of the calculated GFR & GFRAA in patients over 70 years has not been determined. Clinical correlation is essential. Serum or plasma urea nitroge n measurement (mass/volume)Ordered By: Dr. Rhodes on 02-02-2022 Urea nitrogen [Mass/Vol] 10 mg/dL 7-18 [facility] Squamous epithelial cells de tection in urine sediment by light microscopyOrdered By: Dr. Rhodes on 02-02-2022 Epithelial cells.squamous LM Ql (Urine sed) 0 SEEN /hpf 5-10 [facility] Thin prep Papanicolaou smear with manual screeningOrdered By: Dr. Rhodes on 02-02-2022 Thin prep Papanicolaou smear with manual screening 14 U/L 15-37 [facility] Thin prep Papanicolaou smear with manual screening 4 5-15 [facility] Urine blood detectionOrdered By: Dr. Rhodes on 02-02-2022 RBC Ql (U) Negative Negative [facility] RBC Ql (U) 0 SEEN /hpf 0-5 [facility] Urine clarityOrdered By: Dr. Rhodes on 02-02-2022 Clarity (U) Clear Clear [facility] Urine color determinationOrd ered By: Dr. Rhodes on 02-02-2022 Color (U) Yellow Yellow [facility] Urine glucose detectionOrder ed By: Dr. Rhodes on 02-02-2022 Glucose Ql (U) Normal mg/dl Normal [facility] Urine leukocyte esterase det ection by dipstickOrdered By: Dr. Rhodes on 02-02-2022 Leukocyte esterase Test strip Ql (U) Negative Negative [facility] Urine pHOrdered By: Dr. Tila arnold on 02-02-2022 pH (U) 7.0 [pH] 5.0 - 8.0 [facility] Urine sediment bacteria coun t by microscopy (number/high power field)Ordered By: Dr. Rhodes on 02-02-2022 Bacteria LM.HPF (Urine sed) [#/Area] 0 /[HPF] None Seen [facility] Urine specific gravity measu rementOrdered By: Dr. Rhodes on 02-02-2022 Specific gravity (U) [Rel density] 1.010 1.002-1.030 [facility] Urobilinogen Auto test strip Ql (U)Ordered By: Dr. Rhodes on 02-02-2022 Urobilinogen Ql (U) Normal mg/dl Normal [facility] LABORATORYOrdered By: Jatinder Schmid on 12-03-2021 Appearance (U) Clear (12/03/21 8:49 PM) Invalid Interpretation Code Clear AO Auto Urine SS Bilirubin Ql (U) Negative (12/03/21 8:49 PM) Invalid Interpretation Code Negative AO Auto Urine SS Color (U) Yellow (12/03/21 8:49 PM) Invalid Interpretation Code AO Auto Urine SS Glucose Test strip (U) [Mass/Vol] Negative Invalid Interpretation Code Negativemg/d L AO Auto Urine SS HCG ( test) Ql Negative (12/03/21 8:49 PM) Invalid Interpretation Code AO Manual Urine SS Hemoglobin Auto test strip (U) [Mass/Vol] Trace *ABN* (12/03/21 8:49 PM) Invalid Interpretation Code Negative AO Auto Urine SS Ketones Ql (U) Negative Invalid Interpretation Code Negativemg/d L AO Auto Urine SS test (u) int Not detected Invalid Interpretation Code AO Manual Urine SS UA Leuk Est Negative (12/03/21 8:49 PM) Invalid Interpretation Code Negative AO Auto Urine SS UA Nitrite Negative (12/03/21 8:49 PM) Invalid Interpretation Code Negative AO Auto Urine SS UA pH 5.5 (12/03/21 8:49 PM) Invalid Interpretation Code 5.0 - 8.0 AO Auto Urine SS UA Protein Negative Invalid Interpretation Code Negativemg/d L AO Auto Urine SS UA Spec Grav >=1.030 *ABN* (12/03/21 8:49 PM) Invalid Interpretation Code 1.015-1.025 AO Auto Urine SS UA Specimen Type Clean Catch (12/03/21 8:49 PM) Invalid Interpretation Code AO Auto Urine SS UA Urobilinogen 0.2 E.U./dL Invalid Interpretation Code 0.2-1.0E.U./ dL AO Auto Urine SS Albumin BCP dye [Mass/Vol] 3.6 G/dL Invalid Interpretation Code 3.5 - 5.0 G/dL AO ADM SS Albumin/Globulin [Mass ratio] 1.0 {ratio} Invalid Interpretation Code 1.1 - 2.5 ratio AO ADM SS ALP [Catalytic activity/Vol] 138 U/L Invalid Interpretation Code 40 - 135 U/L AO ADM SS ALT With P-5'-P [Catalytic activity/Vol] 22 U/L Invalid Interpretation Code 14 - 59 U/L AO ADM SS AST With P-5'-P [Catalytic activity/Vol] 18 U/L Invalid Interpretation Code 10 - 40 U/L AO ADM SS Basophil, Absolute 0.0 103/mcL Invalid Interpretation Code 0.0 - 0.2 10^3/mcL AO Workflow SS Basophils/100 WBC (Bld) 0.6 % Invalid Interpretation Code 0.0 - 2.5 % AO Workflow SS Bilirubin [Mass/Vol] 0.2 mg/dL Invalid Interpretation Code 0.2 - 1.0 mg/dL AO ADM SS Calcium [Mass/Vol] 8.0 mg/dL Invalid Interpretation Code 8.4 - 10.2 mg/dL AO ADM SS Chloride [Moles/Vol] 102 mmol/L Invalid Interpretation Code 98 - 107 mmol/L AO ADM SS CO2 [Moles/Vol] 28 mmol/L Invalid Interpretation Code 22 - 29 mmol/L AO ADM SS Creatinine [Mass/Vol] 0.91 mg/dL Invalid Interpretation Code 0.55 - 1.02 mg/dL AO ADM SS Electrolyte Balance 9.0 mEq/L Invalid Interpretation Code 4.0 - 15.0 mEq/L AO ADM SS Eosinophil, Absolute 0.2 103/mcL Invalid Interpretation Code 0.0 - 0.4 10^3/mcL AO Workflow SS Eosinophils/100 WBC (Bld) 2.4 % Invalid Interpretation Code 0.0 - 7.0 % AO Workflow SS Erythrocyte distribution width (RBC) [Ratio] 13.1 % Invalid Interpretation Code 11.5 - 14.5 % AO Workflow SS Globulin 3.6 G/dL Invalid Interpretation Code AO ADM SS Glucose [Mass/Vol] 100 mg/dL Invalid Interpretation Code 70 - 105 mg/dL AO ADM SS Hematocrit (Bld) [Volume fraction] 37.4 % Invalid Interpretation Code 37.0 - 47.0 % AO Workflow SS Hemoglobin (Bld) [Mass/Vol] 13.1 G/dL Invalid Interpretation Code 12.0 - 16.0 G/dL AO Workflow SS Lipase [Catalytic activity/Vol] 92 U/L Invalid Interpretation Code 73 - 393 U/L AO ADM SS Lymphocyte, Absolute 2.3 103/mcL Invalid Interpretation Code 0.8 - 3.9 10^3/mcL AO Workflow SS Lymphocytes/100 WBC (Bld) 30.4 % Invalid Interpretation Code 10.0 - 50.0 % AO Workflow SS MCH (RBC) [Entitic mass] 34.6 pg Invalid Interpretation Code 27.0 - 31.2 pg AO Workflow SS MCHC 35.0 G/dL Invalid Interpretation Code 33.0 - 37.0 G/dL AO Workflow SS MCV (RBC) [Entitic vol] 98.8 fL Invalid Interpretation Code 80.0 - 94.0 fL AO Workflow SS Monocyte distribution width Auto (Bld) [Entitic vol] 17.50 Invalid Interpretation Code 0.00 - 20.00 AO Workflow SS Comment on above: Result Comment: For ED adult patients suspected of sepsis, MDW<=20.0 does not rule out sepsis or risk of sepsis Monocyte, Absolute 0.5 103/mcL Invalid Interpretation Code 0.2 - 1.0 10^3/mcL AO Workflow SS Monocytes/100 WBC (Bld) 6.1 % Invalid Interpretation Code 1.7 - 13.0 % AO Workflow SS Neutrophil, Absolute 4.5 103/mcL Invalid Interpretation Code 2.9 - 6.2 10^3/mcL AO Workflow SS Neutrophils/100 WBC (Bld) 60.5 % Invalid Interpretation Code 37.0 - 80.0 % AO Workflow SS Platelet mean volume (Bld) [Entitic vol] 9.2 fL Invalid Interpretation Code 7.4 - 10.4 fL AO Workflow SS Platelets (Bld) [#/Vol] 155 103/mcL Invalid Interpretation Code 130 - 400 10^3/mcL AO Workflow SS Potassium [Moles/Vol] 3.2 mmol/L Invalid Interpretation Code 3.5 - 5.1 mmol/L AO ADM SS Protein [Mass/Vol] 7.2 G/dL Invalid Interpretation Code 6.4 - 8.2 G/dL AO ADM SS RBC (Bld) [#/Vol] 3.78 106/mcL Invalid Interpretation Code 4.20 - 5.40 10^6/mcL AO Workflow SS Sodium [Moles/Vol] 139 mmol/L Invalid Interpretation Code 136 - 145 mmol/L AO ADM SS Troponin I.cardiac DL <= 0.01 ng/mL [Mass/Vol] 4.2 ng/L Invalid Interpretation Code 0.0 - 51.4 ng/L AO ADM SS Urea nitrogen [Mass/Vol] 11 mg/dL Invalid Interpretation Code 7 - 18 mg/dL AO ADM SS Urea nitrogen/Creatinine [Mass ratio] 12 ratio Invalid Interpretation Code 7 - 27 ratio AO ADM SS WBC 7.4 103/mcL Invalid Interpretation Code 4.6 - 10.8 10^3/mcL AO Workflow SS LABORATORYOrdered By: SYSTEM SYSTEM on 12-03-2021 GFR 81 ml/min/1.73sqm Invalid Interpretation Code AO Chemistry S GFR Non- 67 ml/min/1.73sqm Invalid Interpretation Code AO Chemistry S No Panel Informationon 10-21 [facility] XR SACROILIAC JOINTS 2V AP P ERIC/FERGUESONon 10-21-2021 [facility] LABORATORYOrdered By: Jatinder Gotti on 09-28-2021 Albumin BCP dye [Mass/Vol] 3.4 G/dL Invalid Interpretation Code 3.5 - 5.0 G/dL AO ADM SS Albumin/Globulin [Mass ratio] 1.1 {ratio} Invalid Interpretation Code 1.1 - 2.5 ratio AO ADM SS ALP [Catalytic activity/Vol] 130 U/L Invalid Interpretation Code 40 - 135 U/L AO ADM SS ALT With P-5'-P [Catalytic activity/Vol] 18 U/L Invalid Interpretation Code 14 - 59 U/L AO ADM SS Appearance (U) Slightly Cloudy *ABN* (09/28/21 4:22 PM) Invalid Interpretation Code Clear AO Auto Urine SS AST With P-5'-P [Catalytic activity/Vol] 15 U/L Invalid Interpretation Code 10 - 40 U/L AO ADM SS Bacteria LM.HPF (Urine sed) [#/Area] 1 /[HPF] Invalid Interpretation Code AO Auto Urine SS Basophil, Absolute 0.0 103/mcL Invalid Interpretation Code 0.0 - 0.2 10^3/mcL AO Workflow SS Basophils/100 WBC (Bld) 0.7 % Invalid Interpretation Code 0.0 - 2.5 % AO Workflow SS Bilirubin [Mass/Vol] 0.2 mg/dL Invalid Interpretation Code 0.2 - 1.0 mg/dL AO ADM SS Bilirubin Ql (U) Negative (09/28/21 4:22 PM) Invalid Interpretation Code Negative AO Auto Urine SS Calcium [Mass/Vol] 8.7 mg/dL Invalid Interpretation Code 8.4 - 10.2 mg/dL AO ADM SS Chloride [Moles/Vol] 107 mmol/L Invalid Interpretation Code 98 - 107 mmol/L AO ADM SS CO2 [Moles/Vol] 30 mmol/L Invalid Interpretation Code 22 - 29 mmol/L AO ADM SS Color (U) Yellow (09/28/21 4:22 PM) Invalid Interpretation Code AO Auto Urine SS Creatinine [Mass/Vol] 0.74 mg/dL Invalid Interpretation Code 0.55 - 1.02 mg/dL AO ADM SS Electrolyte Balance 6.0 mEq/L Invalid Interpretation Code 4.0 - 15.0 mEq/L AO ADM SS Eosinophil, Absolute 0.3 103/mcL Invalid Interpretation Code 0.0 - 0.4 10^3/mcL AO Workflow SS Eosinophils/100 WBC (Bld) 5.1 % Invalid Interpretation Code 0.0 - 7.0 % AO Workflow SS Erythrocyte distribution width (RBC) [Ratio] 13.7 % Invalid Interpretation Code 11.5 - 14.5 % AO Workflow SS Globulin 3.2 G/dL Invalid Interpretation Code AO ADM SS Glucose [Mass/Vol] 122 mg/dL Invalid Interpretation Code 70 - 105 mg/dL AO ADM SS Glucose Test strip (U) [Mass/Vol] Negative Invalid Interpretation Code Negativemg/d L AO Auto Urine SS Hematocrit (Bld) [Volume fraction] 36.5 % Invalid Interpretation Code 37.0 - 47.0 % AO Workflow SS Hemoglobin (Bld) [Mass/Vol] 12.5 G/dL Invalid Interpretation Code 12.0 - 16.0 G/dL AO Workflow SS Hemoglobin Auto test strip (U) [Mass/Vol] Trace *ABN* (09/28/21 4:22 PM) Invalid Interpretation Code Negative AO Auto Urine SS Ketones Ql (U) Negative Invalid Interpretation Code Negativemg/d L AO Auto Urine SS Lipase [Catalytic activity/Vol] 500 U/L Invalid Interpretation Code 73 - 393 U/L AO ADM SS Lymphocyte, Absolute 1.7 103/mcL Invalid Interpretation Code 0.8 - 3.9 10^3/mcL AO Workflow SS Lymphocytes/100 WBC (Bld) 24.5 % Invalid Interpretation Code 10.0 - 50.0 % AO Workflow SS MCH (RBC) [Entitic mass] 34.4 pg Invalid Interpretation Code 27.0 - 31.2 pg AO Workflow SS MCHC 34.4 G/dL Invalid Interpretation Code 33.0 - 37.0 G/dL AO Workflow SS MCV (RBC) [Entitic vol] 100.0 fL Invalid Interpretation Code 80.0 - 94.0 fL AO Workflow SS Monocyte distribution width Auto (Bld) [Entitic vol] 17.22 Invalid Interpretation Code 0.00 - 20.00 AO Workflow SS Comment on above: Result Comment: For ED adult patients suspected of sepsis, MDW<=20.0 does not rule out sepsis or risk of sepsis Monocyte, Absolute 0.4 103/mcL Invalid Interpretation Code 0.2 - 1.0 10^3/mcL AO Workflow SS Monocytes/100 WBC (Bld) 6.1 % Invalid Interpretation Code 1.7 - 13.0 % AO Workflow SS Neutrophil, Absolute 4.4 103/mcL Invalid Interpretation Code 2.9 - 6.2 10^3/mcL AO Workflow SS Neutrophils/100 WBC (Bld) 63.6 % Invalid Interpretation Code 37.0 - 80.0 % AO Workflow SS Platelet mean volume (Bld) [Entitic vol] 8.8 fL Invalid Interpretation Code 7.4 - 10.4 fL AO Workflow SS Platelets (Bld) [#/Vol] 161 103/mcL Invalid Interpretation Code 130 - 400 10^3/mcL AO Workflow SS Potassium [Moles/Vol] 3.6 mmol/L Invalid Interpretation Code 3.5 - 5.1 mmol/L AO ADM SS Protein [Mass/Vol] 6.6 G/dL Invalid Interpretation Code 6.4 - 8.2 G/dL AO ADM SS RBC (Bld) [#/Vol] 3.65 106/mcL Invalid Interpretation Code 4.20 - 5.40 10^6/mcL AO Workflow SS Sodium [Moles/Vol] 143 mmol/L Invalid Interpretation Code 136 - 145 mmol/L AO ADM SS UA Leuk Est Negative (09/28/21 4:22 PM) Invalid Interpretation Code Negative AO Auto Urine SS UA Nitrite Negative (09/28/21 4:22 PM) Invalid Interpretation Code Negative AO Auto Urine SS UA pH 7.5 (09/28/21 4:22 PM) Invalid Interpretation Code 5.0 - 8.0 AO Auto Urine SS UA Protein Negative Invalid Interpretation Code Negativemg/d L AO Auto Urine SS UA RBC 0-5 /HPF Invalid Interpretation Code None Seen/HPF AO Auto Urine SS UA Spec Grav 1.015 (09/28/21 4:22 PM) Invalid Interpretation Code 1.015-1.025 AO Auto Urine SS UA Specimen Type Clean Catch (09/28/21 4:22 PM) Invalid Interpretation Code AO Auto Urine SS UA Squam Epithelial 5-10 /HPF Invalid Interpretation Code None Seen/HPF AO Auto Urine SS UA Urobilinogen 0.2 E.U./dL Invalid Interpretation Code 0.2-1.0E.U./ dL AO Auto Urine SS Urea nitrogen [Mass/Vol] 8 mg/dL Invalid Interpretation Code 7 - 18 mg/dL AO ADM SS Urea nitrogen/Creatinine [Mass ratio] 11 ratio Invalid Interpretation Code 7 - 27 ratio AO ADM SS WBC 6.9 103/mcL Invalid Interpretation Code 4.6 - 10.8 10^3/mcL AO Workflow SS WBC LM.HPF (Urine sed) [#/Area] 0-5 /HPF Invalid Interpretation Code None Seen/HPF AO Auto Urine SS LABORATORYOrdered By: SYSTEM SYSTEM on 09-28-2021 GFR 103 ml/min/1.73sqm Invalid Interpretation Code AO Chemistry S GFR Non- 85 ml/min/1.73sqm Invalid Interpretation Code AO Chemistry S Basophil percentageon 2021 Bilirubin [Mass/Vol] 0.20 mg/dL 0.20-1.00 [facility] Work Phone: Comment on above: For patients on eltr ombopag therapy, use of Dimension [place] TBIL is not recommended. Chloride [Moles/Vol] 112 mmol/L 98-107 [facility] Work Phone: Glucose [Mass/Vol] 106 mg/dL 74-106 [facility] Work Phone: Comment on above: Fasting Glucose resu lt from 100 to 125 mg/dL suggests IMPAIRED HOMEOSTASIS per A.D.A. criteria. Potassium [Moles/Vol] 4.1 mmol/L 3.5-5.1 [facility] Work Phone: Comment on above: Moderate Hemolysis, Result may be falsely increased. Protein [Mass/Vol] 7.3 g/dL 6.4-8.2 [facility] Work Phone: Sodium [Moles/Vol] 143 mmol/L 136-145 [facility] Work Phone: Laboratory - Chemistry and C hemistry - challengeon 08-12-2021 ALP [Catalytic activity/Vol] 131 U/L 45-117 [facility] Work Phone: ALT [Catalytic activity/Vol] 19 U/L 13-56 [facility] Work Phone: CO2 [Moles/Vol] 26.0 mmol/L 21.0-32.0 [facility] Work Phone: Globulin (S) [Mass/Vol] 4.0 g/dL 2.2-4.2 [facility] Work Phone: Urea nitrogen/Creatinine [Mass ratio] 17.1 mg/mg 10-20 [facility] Work Phone: No Panel Informationon 08-12 Estimated Creatinine Clearance Calc 91.86 ml/min [facility] Work Phone: Estimated GFR (MDRD) Amer 106 mL/min >60 [facility] Work Phone: Comment on above: GFR Calc Estimated GFR (MDRD) Non-Af Amer 87 mL/min >60 [facility] Work Phone: Comment on above: Non- GFR Calc Serum or plasma albumin gerg urement (mass/volume)on 08-12-2021 Albumin [Mass/Vol] 3.3 g/dL 3.2-5.0 [facility] Work Phone: Serum or plasma albumin/glob ulin mass ratioon 08-12-2021 Albumin/Globulin [Mass ratio] 0.8 {ratio} 0.9-2.4 [facility] Work Phone: Serum or plasma calcium greg urement (mass/volume)on 08-12-2021 Calcium [Mass/Vol] 8.4 mg/dL 8.5-10.1 [facility] Work Phone: Serum or plasma creatinine m easurement (mass/volume)on 08-12-2021 Creatinine [Mass/Vol] 0.76 mg/dL 0.55-1.02 [facility] Work Phone: Comment on above: The validity of the calculated GFR & GFRAA in patients over 70 years has not been determined. Clinical correlation is essential. Serum or plasma urea nitroge n measurement (mass/volume)on 08-12-2021 Urea nitrogen [Mass/Vol] 13 mg/dL 7-18 [facility] Work Phone: Thin prep Papanicolaou smear with manual screeningon 08-12-2021 Thin prep Papanicolaou smear with manual screening 21 U/L 15-37 [facility] Work Phone: Comment on above: Moderate Hemolysis, Result may be falsely increased. Thin prep Papanicolaou smear with manual screening 5 5-15 [facility] Work Phone: Atypical perinuclear antineu trophil cytoplasmic antibodies measurementon 08-11-2021 Neutrophil cytoplasmic Ab.perinuclear.atypical IF (S) [Titer] <1:20 titer Neg:<1:20 [facility] Work Phone: Comment on above: Serum is slightly li pemic.The atypical pANCA pattern has been observed in asignificant percentage of patients with ulcerative colitis,primary sclerosing cholangitis and autoimmune hepatitis.Performed at: [employer] [id number] Director: David Zafar PhD, Phone: [phone] Basophil percentageon 2021 Amylase [Catalytic activity/Vol] 42 U/L 25-115 [facility] Work Phone: Basophil percentage < 0.2 AI 0.0-0.9 [facility] Work Phone: Laboratory - Chemistry and C hemistry - challengeon 08-11-2021 CK [Catalytic activity/Vol] 109 U/L 26-192 [facility] Work Phone: No Panel Informationon 08-11 Immunoglobulin E 108 IU/mL 6-495 [facility] Work Phone: Immunoglobulin G4 35 mg/dL 2-96 [facility] Work Phone: Miscellaneous Test See comment [facility] Work Phone: Comment on above: TEST RESULT LIMITSCh romogranin A, 109.1 High ng/mL 0.0-101.8 Chromogranin A performed by [employer] methodology Values obtained with different assay methods or kits cannot be used interchangeably. TESTING PERFORMED AT [facility]. ORIGINAL REPORT ON FILE IN LAB CONTAINS ADDITIONAL TEST SITE INFORMATION. Plasma Total Catecholamines Not Reportable [facility] Work Phone: Anti-Nuclear Antibody Screen Positive Negative [facility] Work Phone: Centromere B Antibody <0.2 AI 0.0-0.9 [facility] Work Phone: 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 AI 0.0-0.9 [facility] Work Phone: Plasma epinephrine measureme nt (mass/volume)on 08-11-2021 EPINEPHrine (P) [Mass/Vol] 21 pg/mL 0-62 [facility] Work Phone: Plasma norepinephrine measur ement (mass/volume)on 08-11-2021 Norepinephrine (P) [Mass/Vol] 264 pg/mL 0-874 [facility] Work Phone: Serum DNA double strand anti body assay (units/volume)on 08-11-2021 DNA double strand Ab Qn (S) 6 [IU]/mL 0-9 [facility] Work Phone: Comment on above: Negative <5 Equivoca l 5 - 9 Positive >9 Serum IgG subclass 1 measure ment (mass/volume)on 08-11-2021 IgG subclass 1 (S) [Mass/Vol] 963 mg/dL 248-810 [facility] Work Phone: Serum IgG subclass 2 measure ment (mass/volume)on 08-11-2021 IgG subclass 2 (S) [Mass/Vol] 174 mg/dL 130-555 [facility] Work Phone: Serum IgG subclass 3 measure ment (mass/volume)on 08-11-2021 IgG subclass 3 (S) [Mass/Vol] 55 mg/dL 15-102 [facility] Work Phone: Serum Delaney-1 antibody assay (u nits/volume)on 08-11-2021 Delaney-1 extractable nuclear Ab Qn (S) <0.2 AI 0.0-0.9 [facility] Work Phone: Serum Scl-70 extractable nuc lear antibody assay (units/volume)on 08-11-2021 SCL-70 extractable nuclear Ab Qn (S) 3.2 AI 0.0-0.9 [facility] Work Phone: Serum [place] extractable nucl ear antibody detectionon 08-11-2021 [place] extractable nuclear Ab Ql (S) <0.2 AI 0.0-0.9 [facility] Work Phone: Serum classic neutrophil cyt oplasmic antibody assay (units/volume)on 08-11-2021 Neutrophil cytoplasmic Ab.classic Qn (S) <1:20 titer Neg:<1:20 [facility] Work Phone: Comment on above: Serum is slightly li pemic. Serum or plasma IgA measurem ent (mass/volume)on 08-11-2021 IgA [Mass/Vol] 168 mg/dL 87-352 [facility] Work Phone: Serum or plasma IgG measurem ent (mass/volume)on 08-11-2021 IgG [Mass/Vol] 1396 mg/dL [phone] [facility] Work Phone: IgG [Mass/Vol] Not Reportable [facility] Work Phone: Serum or plasma IgM measurem ent (mass/volume)on 08-11-2021 IgM [Mass/Vol] 142 mg/dL 26-217 [facility] Work Phone: Serum or plasma dopamine clarisa surement (mass/volume)on 08-11-2021 DOPamine [Mass/Vol] <30 pg/mL 0-48 [facility] Work Phone: Serum or plasma gastrin greg urement (mass/volume)on 08-11-2021 Gastrin [Mass/Vol] 38 pg/mL 0-115 [facility] Work Phone: Comment on above: Siemens Immulite 200 0 Immunochemiluminometric assay (ICMA)Values obtained with different assay methods or kits cannotbe used interchangeably. Results cannot be interpreted asabsolute evidence of the presence or absence of malignantdisease.Performed at: [employer] [address] [id number] Director: David Zafar PhD, Phone: [phone] at: [employer] [address] [id number] Director: Jeana Ambrose MD, Phone: [phone] Serum perinuclear neutrophil cytoplasmic antibody titer by immunofluorescenceon 08-11-2021 Neutrophil cytoplasmic Ab.perinuclear IF (S) [Titer] <1:20 titer Neg:<1:20 [facility] Work Phone: Comment on above: Serum is slightly li pemic.The presence of positive fluorescence exhibiting P-ANCA orC-ANCA patterns alone is not specific for the diagnosis ofWegener's Granulomatosis (WG) or microscopic polyangiitis.Decisions about treatment should not be based solely onANCA IFA results. The International ANCA Group Consensusrecommends follow up testing of positive sera with both MS-3 and MPO-ANCA enzyme immunoassays. As many as 5% serumsamples are positive only by EIA. Ref. AM J Clin [id number];111:[id number]. Absolute lymphocyte counton 07-31-2021 Lymphocytes Auto (Unsp spec) [#/Vol] 1.87 10*3/uL 0.83-4.51 [facility] Work Phone: Basophil percentageon 2021 Basophils/100 WBC (Bld) 0.6 % 0-1 [facility] Work Phone: Bilirubin [Mass/Vol] 0.10 mg/dL 0.20-1.00 [facility] Work Phone: Comment on above: For patients on eltr ombopag therapy, use of Dimension [place] TBIL is not recommended. Chloride [Moles/Vol] 111 mmol/L 98-107 [facility] Work Phone: Eosinophils/100 WBC (Bld) 3.1 % 0-5 [facility] Work Phone: Glucose [Mass/Vol] 88 mg/dL 74-106 [facility] Work Phone: Neutrophils (Bld) [#/Vol] 4.7 10*3/uL 2.0-7.7 [facility] Work Phone: [phone] Neutrophils/100 WBC (Bld) 64.6 % 47-70 [facility] Work Phone: Potassium [Moles/Vol] 3.5 mmol/L 3.5-5.1 [facility] Work Phone: [phone] Protein [Mass/Vol] 7.2 g/dL 6.4-8.2 [facility] Work Phone: Sodium [Moles/Vol] 140 mmol/L 136-145 [facility] Work Phone: WBC (Bld) [#/Vol] 7.2 10*3/uL 4.4-11.0 [facility] Work Phone: [phone] Blood erythrocytes count (nu mber/volume)on 07-31-2021 RBC (Bld) [#/Vol] 3.66 10*6/uL 4.2-5.4 [facility] Work Phone: [phone] Blood hemoglobin measurement (mass/volume)on 07-31-2021 Hemoglobin (Bld) [Mass/Vol] 12.2 g/dL 12.0-15.0 [facility] Work Phone: Blood lymphocytes/100 leukoc yteson 07-31-2021 Lymphocytes/100 WBC (Bld) 26.0 % 19-41 [facility] Work Phone: Blood monocytes/100 leukocyt eson 07-31-2021 Monocytes/100 WBC (Bld) 5.4 % 0-10 [facility] Work Phone: Blood platelet mean volumeon 07-31-2021 Platelet mean volume (Bld) [Entitic vol] 11.8 fL 6.2-12.0 [facility] Work Phone: Determination of erythrocyte mean corpuscular volume (MCV)on 07-31-2021 MCV (RBC) [Entitic vol] 101.6 fL 81-99 [facility] Work Phone: Hematocrit Auto (Bld) [Volum e fraction]on 07-31-2021 Hematocrit (Bld) [Volume fraction] 37.2 % 37-47 [facility] Work Phone: Laboratory - Chemistry and C hemistry - challengeon 07-31-2021 ALP [Catalytic activity/Vol] 135 U/L 45-117 [facility] Work Phone: ALT [Catalytic activity/Vol] 17 U/L 13-56 [facility] Work Phone: CO2 [Moles/Vol] 24.0 mmol/L 21.0-32.0 [facility] Work Phone: Globulin (S) [Mass/Vol] 3.8 g/dL 2.2-4.2 [facility] Work Phone: Lipase [Catalytic activity/Vol] 90 U/L 73-393 [facility] Work Phone: Urea nitrogen/Creatinine [Mass ratio] 16.1 mg/mg 10-20 [facility] Work Phone: Laboratory - Hematology and Cell countson 07-31-2021 Erythrocyte distribution width (RBC) [Entitic vol] 47.5 fL 35.1-43.9 [facility] Work Phone: Erythrocyte distribution width (RBC) [Ratio] 12.6 % 11.6-14.6 [facility] Work Phone: Immature granulocytes/100 WBC (Bld) 0.300 % 0.0-0.9 [facility] Work Phone: Comment on above: IG% - Immature Granu locytes (promyelocytes, myelocytes and metamyelocytes) > 1% indicates that a LEFT SHIFT is Present. MCH (RBC) [Entitic mass] 33.3 pg 27.0-32.0 [facility] Work Phone: Nucleated RBC/100 WBC (Bld) [Ratio] 0 % 0-5 [facility] Work Phone: MCHC Auto (RBC) [Mass/Vol]on 07-31-2021 MCHC (RBC) [Mass/Vol] 32.8 g/dL 32-36 [facility] Work Phone: No Panel Informationon 07-31 Estimated Creatinine Clearance Calc 94.34 ml/min [facility] Work Phone: Estimated GFR (MDRD) Amer 109 mL/min >60 [facility] Work Phone: Comment on above: GFR Calc Estimated GFR (MDRD) Non-Af Amer 90 mL/min >60 [facility] Work Phone: Comment on above: Non- GFR Calc Platelets bldon 07-31-2021 Platelets (Bld) [#/Vol] 167 10*3/uL 150-450 [facility] Work Phone: Serum or plasma albumin greg urement (mass/volume)on 07-31-2021 Albumin [Mass/Vol] 3.4 g/dL 3.2-5.0 [facility] Work Phone: Serum or plasma albumin/glob ulin mass ratioon 07-31-2021 Albumin/Globulin [Mass ratio] 0.9 {ratio} 0.9-2.4 [facility] Work Phone: Serum or plasma calcium greg urement (mass/volume)on 07-31-2021 Calcium [Mass/Vol] 8.5 mg/dL 8.5-10.1 [facility] Work Phone: Serum or plasma creatinine m easurement (mass/volume)on 07-31-2021 Creatinine [Mass/Vol] 0.74 mg/dL 0.55-1.02 [facility] Work Phone: Comment on above: The validity of the calculated GFR & GFRAA in patients over 70 years has not been determined. Clinical correlation is essential. Serum or plasma urea nitroge n measurement (mass/volume)on 07-31-2021 Urea nitrogen [Mass/Vol] 12 mg/dL 7-18 [facility] Work Phone: Thin prep Papanicolaou smear with manual screeningon 07-31-2021 Thin prep Papanicolaou smear with manual screening 15 U/L 15-37 [facility] Work Phone: Thin prep Papanicolaou smear with manual screening 5 5-15 [facility] Work Phone: LABORATORYOrdered By: Yazmin Faith on 07-28-2021 Albumin BCP dye [Mass/Vol] 3.7 G/dL Invalid Interpretation Code 3.5 - 5.0 G/dL AO ADM SS Albumin/Globulin [Mass ratio] 1.0 {ratio} Invalid Interpretation Code 1.1 - 2.5 ratio AO ADM SS ALP [Catalytic activity/Vol] 155 U/L Invalid Interpretation Code 40 - 135 U/L AO ADM SS ALT With P-5'-P [Catalytic activity/Vol] 17 U/L Invalid Interpretation Code 14 - 59 U/L AO ADM SS Appearance (U) Clear (07/28/21 3:50 AM) Invalid Interpretation Code Clear AO Auto Urine SS AST With P-5'-P [Catalytic activity/Vol] 19 U/L Invalid Interpretation Code 10 - 40 U/L AO ADM SS Basophil, Absolute 0.00 103/mcL Invalid Interpretation Code 0.00 - 0.19 10^3/mcL AO Auto Heme SS Basophils/100 WBC (Bld) 0.5 % Invalid Interpretation Code 0.0 - 2.5 % AO Auto Heme SS Bilirubin [Mass/Vol] 0.2 mg/dL Invalid Interpretation Code 0.2 - 1.0 mg/dL AO ADM SS Bilirubin Ql (U) Negative (07/28/21 3:50 AM) Invalid Interpretation Code Negative AO Auto Urine SS Calcium [Mass/Vol] 8.8 mg/dL Invalid Interpretation Code 8.4 - 10.2 mg/dL AO ADM SS Chloride [Moles/Vol] 105 mmol/L Invalid Interpretation Code 98 - 107 mmol/L AO ADM SS CO2 [Moles/Vol] 29 mmol/L Invalid Interpretation Code 22 - 29 mmol/L AO ADM SS Color (U) Yellow (07/28/21 3:50 AM) Invalid Interpretation Code AO Auto Urine SS Creatinine [Mass/Vol] 0.77 mg/dL Invalid Interpretation Code 0.55 - 1.02 mg/dL AO ADM SS Electrolyte Balance 10.0 mEq/L Invalid Interpretation Code 4.0 - 15.0 mEq/L AO ADM SS Eosinophil, Absolute 0.20 103/mcL Invalid Interpretation Code 0.00 - 0.40 10^3/mcL AO Auto Heme SS Eosinophils/100 WBC (Bld) 3.8 % Invalid Interpretation Code 0.0 - 7.0 % AO Auto Heme SS Erythrocyte distribution width (RBC) [Ratio] 13.7 % Invalid Interpretation Code 11.5 - 14.5 % AO Auto Heme SS Globulin 3.7 G/dL Invalid Interpretation Code AO ADM SS Glucose [Mass/Vol] 110 mg/dL Invalid Interpretation Code 70 - 105 mg/dL AO ADM SS Glucose Test strip (U) [Mass/Vol] Negative Invalid Interpretation Code Negativemg/d L AO Auto Urine SS HCG ( test) Ql Negative (07/28/21 3:50 AM) Invalid Interpretation Code AO Manual Urine SS Hematocrit (Bld) [Volume fraction] 39.6 % Invalid Interpretation Code 37.0 - 47.0 % AO Auto Heme SS Hemoglobin (Bld) [Mass/Vol] 13.1 G/dL Invalid Interpretation Code 12.0 - 16.0 G/dL AO Auto Heme SS Hemoglobin Auto test strip (U) [Mass/Vol] Trace *ABN* (07/28/21 3:50 AM) Invalid Interpretation Code Negative AO Auto Urine SS Ketones Ql (U) Negative Invalid Interpretation Code Negativemg/d L AO Auto Urine SS Lipase [Catalytic activity/Vol] 104 U/L Invalid Interpretation Code 73 - 393 U/L AO ADM SS Lymphocyte, Absolute 1.80 103/mcL Invalid Interpretation Code 0.77 - 3.85 10^3/mcL AO Auto Heme SS Lymphocytes/100 WBC (Bld) 29.6 % Invalid Interpretation Code 10.0 - 50.0 % AO Auto Heme SS MCH (RBC) [Entitic mass] 33.5 pg Invalid Interpretation Code 27.0 - 31.2 pg AO Auto Heme SS MCHC (RBC) [Mass/Vol] 33.1 G/dL Invalid Interpretation Code 33.0 - 37.0 G/dL AO Auto Heme SS MCV (RBC) [Entitic vol] 101.1 fL Invalid Interpretation Code 80.0 - 94.0 fL AO Auto Heme SS Monocyte, Absolute 0.30 103/mcL Invalid Interpretation Code 0.15 - 1.00 10^3/mcL AO Auto Heme SS Monocytes/100 WBC (Bld) 5.4 % Invalid Interpretation Code 1.7 - 13.0 % AO Auto Heme SS Neutrophil, Absolute 3.70 103/mcL Invalid Interpretation Code 2.85 - 6.16 10^3/mcL AO Auto Heme SS Neutrophils/100 WBC (Bld) 60.7 % Invalid Interpretation Code 37.0 - 80.0 % AO Auto Heme SS Platelet mean volume (Bld) [Entitic vol] 9.7 fL Invalid Interpretation Code 7.4 - 10.4 fL AO Auto Heme SS Platelets (Bld) [#/Vol] 166 103/mcL Invalid Interpretation Code 130 - 400 10^3/mcL AO Auto Heme SS Potassium [Moles/Vol] 3.4 mmol/L Invalid Interpretation Code 3.5 - 5.1 mmol/L AO ADM SS test (u) int Not detected Invalid Interpretation Code AO Manual Urine SS Protein [Mass/Vol] 7.4 G/dL Invalid Interpretation Code 6.4 - 8.2 G/dL AO ADM SS RBC (Bld) [#/Vol] 3.92 106/mcL Invalid Interpretation Code 4.20 - 5.40 10^6/mcL AO Auto Heme SS Sodium [Moles/Vol] 144 mmol/L Invalid Interpretation Code 136 - 145 mmol/L AO ADM SS UA Leuk Est Negative (07/28/21 3:50 AM) Invalid Interpretation Code Negative AO Auto Urine SS UA Nitrite Negative (07/28/21 3:50 AM) Invalid Interpretation Code Negative AO Auto Urine SS UA pH 5.5 (07/28/21 3:50 AM) Invalid Interpretation Code 5.0 - 8.0 AO Auto Urine SS UA Protein Negative Invalid Interpretation Code Negativemg/d L AO Auto Urine SS UA Spec Grav <=1.005 *ABN* (07/28/21 3:50 AM) Invalid Interpretation Code 1.015-1.025 AO Auto Urine SS UA Specimen Type Clean Catch (07/28/21 3:50 AM) Invalid Interpretation Code AO Auto Urine SS UA Urobilinogen 0.2 E.U./dL Invalid Interpretation Code 0.2-1.0E.U./ dL AO Auto Urine SS Urea nitrogen [Mass/Vol] 13 mg/dL Invalid Interpretation Code 7 - 18 mg/dL AO ADM SS Urea nitrogen/Creatinine [Mass ratio] 17 ratio Invalid Interpretation Code 7 - 27 ratio AO ADM SS WBC (Bld) [#/Vol] 6.10 103/mcL Invalid Interpretation Code 4.60 - 10.80 10^3/mcL AO Auto Heme SS LABORATORYOrdered By: SYSTEM SYSTEM on 07-28-2021 GFR 99 ml/min/1.73sqm Invalid Interpretation Code AO Chemistry S GFR Non- 81 ml/min/1.73sqm Invalid Interpretation Code AO Chemistry S Absolute lymphocyte counton 07-18-2021 Lymphocytes Auto (Unsp spec) [#/Vol] 1.91 10*3/uL 0.83-4.51 [facility] Work Phone: Basophil percentageon 2021 Basophils/100 WBC (Bld) 0.3 % 0-1 [facility] Work Phone: Bilirubin [Mass/Vol] 0.20 mg/dL 0.20-1.00 [facility] Work Phone: [phone] Comment on above: For patients on eltr ombopag therapy, use of Dimension [place] TBIL is not recommended. Chloride [Moles/Vol] 112 mmol/L 98-107 [facility] Work Phone: Eosinophils/100 WBC (Bld) 3.4 % 0-5 [facility] Work Phone: Glucose [Mass/Vol] 89 mg/dL 74-106 [facility] Work Phone: Neutrophils (Bld) [#/Vol] 5.1 10*3/uL 2.0-7.7 [facility] Work Phone: Neutrophils/100 WBC (Bld) 66.6 % 47-70 [facility] Work Phone: Potassium [Moles/Vol] 3.5 mmol/L 3.5-5.1 [facility] Work Phone: Protein [Mass/Vol] 7.4 g/dL 6.4-8.2 [facility] Work Phone: Sodium [Moles/Vol] 140 mmol/L 136-145 [facility] Work Phone: WBC (Bld) [#/Vol] 7.7 10*3/uL 4.4-11.0 [facility] Work Phone: Blood erythrocytes count (nu mber/volume)on 07-18-2021 RBC (Bld) [#/Vol] 3.65 10*6/uL 4.2-5.4 [facility] Work Phone: Blood hemoglobin measurement (mass/volume)on 07-18-2021 Hemoglobin (Bld) [Mass/Vol] 12.1 g/dL 12.0-15.0 [facility] Work Phone: Blood lymphocytes/100 leukoc yteson 07-18-2021 Lymphocytes/100 WBC (Bld) 24.9 % 19-41 [facility] Work Phone: Blood monocytes/100 leukocyt eson 07-18-2021 Monocytes/100 WBC (Bld) 4.3 % 0-10 [facility] Work Phone: Blood platelet mean volumeon 07-18-2021 Platelet mean volume (Bld) [Entitic vol] 10.9 fL 6.2-12.0 [facility] Work Phone: Determination of erythrocyte mean corpuscular volume (MCV)on 07-18-2021 MCV (RBC) [Entitic vol] 101.6 fL 81-99 [facility] Work Phone: Hematocrit Auto (Bld) [Volum e fraction]on 07-18-2021 Hematocrit (Bld) [Volume fraction] 37.1 % 37-47 [facility] Work Phone: Laboratory - Chemistry and C hemistry - challengeon 07-18-2021 ALP [Catalytic activity/Vol] 142 U/L 45-117 [facility] Work Phone: ALT [Catalytic activity/Vol] 18 U/L 13-56 [facility] Work Phone: CO2 [Moles/Vol] 25.0 mmol/L 21.0-32.0 [facility] Work Phone: Globulin (S) [Mass/Vol] 4.0 g/dL 2.2-4.2 [facility] Work Phone: Lipase [Catalytic activity/Vol] 95 U/L 73-393 [facility] Work Phone: Urea nitrogen/Creatinine [Mass ratio] 18.6 mg/mg 10-20 [facility] Work Phone: Laboratory - Hematology and Cell countson 07-18-2021 Erythrocyte distribution width (RBC) [Entitic vol] 47.6 fL 35.1-43.9 [facility] Work Phone: Erythrocyte distribution width (RBC) [Ratio] 12.7 % 11.6-14.6 [facility] Work Phone: Immature granulocytes/100 WBC (Bld) 0.500 % 0.0-0.9 [facility] Work Phone: Comment on above: IG% - Immature Granu locytes (promyelocytes, myelocytes and metamyelocytes) > 1% indicates that a LEFT SHIFT is Present. MCH (RBC) [Entitic mass] 33.2 pg 27.0-32.0 [facility] Work Phone: Nucleated RBC/100 WBC (Bld) [Ratio] 0 % 0-5 [facility] Work Phone: MCHC Auto (RBC) [Mass/Vol]on 07-18-2021 MCHC (RBC) [Mass/Vol] 32.6 g/dL 32-36 [facility] Work Phone: No Panel Informationon 07-18 Estimated Creatinine Clearance Calc 99.73 ml/min [facility] Work Phone: Estimated GFR (MDRD) Amer 117 mL/min >60 [facility] Work Phone: Comment on above: GFR Calc Estimated GFR (MDRD) Non-Af Amer 96 mL/min >60 [facility] Work Phone: Comment on above: Non- GFR Calc Platelets bldon 07-18-2021 Platelets (Bld) [#/Vol] 169 10*3/uL 150-450 [facility] Work Phone: Serum or plasma albumin greg urement (mass/volume)on 07-18-2021 Albumin [Mass/Vol] 3.4 g/dL 3.2-5.0 [facility] Work Phone: Serum or plasma albumin/glob ulin mass ratioon 07-18-2021 Albumin/Globulin [Mass ratio] 0.8 {ratio} 0.9-2.4 [facility] Work Phone: Serum or plasma calcium greg urement (mass/volume)on 07-18-2021 Calcium [Mass/Vol] 8.4 mg/dL 8.5-10.1 [facility] Work Phone: Serum or plasma creatinine m easurement (mass/volume)on 07-18-2021 Creatinine [Mass/Vol] 0.70 mg/dL 0.55-1.02 [facility] Work Phone: Comment on above: The validity of the calculated GFR & GFRAA in patients over 70 years has not been determined. Clinical correlation is essential. Serum or plasma urea nitroge n measurement (mass/volume)on 07-18-2021 Urea nitrogen [Mass/Vol] 13 mg/dL 7-18 [facility] Work Phone: Thin prep Papanicolaou smear with manual screeningon 07-18-2021 Thin prep Papanicolaou smear with manual screening 10 U/L 15-37 [facility] Work Phone: Thin prep Papanicolaou smear with manual screening 3 5-15 [facility] Work Phone: Absolute lymphocyte counton 07-13-2021 Lymphocytes Auto (Unsp spec) [#/Vol] 2.47 10*3/uL 0.83-4.51 [facility] Work Phone: Atypical perinuclear antineu trophil cytoplasmic antibodies measurementon 07-13-2021 Neutrophil cytoplasmic Ab.perinuclear.atypical IF (S) [Titer] 1:320 titer Neg:<1:20 [facility] Work Phone: Comment on above: The atypical pANCA p attern has been observed in asignificant percentage of patients with ulcerative colitis,primary sclerosing cholangitis and autoimmune hepatitis. Basophil percentageon 2021 Basophil percentage 0-5 SEEN /[facility]pf [facility] Work Phone: Basophils/100 WBC (Bld) 0.4 % 0-1 [facility] Work Phone: Bilirubin [Mass/Vol] mg/dL 0.20-1.00 [facility] Work Phone: Comment on above: For patients on eltr ombopag therapy, use of Dimension [place] TBIL is not recommended. Chloride [Moles/Vol] 110 mmol/L 98-107 [facility] Work Phone: Eosinophils/100 WBC (Bld) 4.0 % 0-5 [facility] Work Phone: Glucose [Mass/Vol] 93 mg/dL 74-106 [facility] Work Phone: Neutrophils (Bld) [#/Vol] 3.5 10*3/uL 2.0-7.7 [facility] Work Phone: Neutrophils/100 WBC (Bld) 52.0 % 47-70 [facility] Work Phone: Potassium [Moles/Vol] 3.7 mmol/L 3.5-5.1 [facility] Work Phone: Protein [Mass/Vol] 7.8 g/dL 6.4-8.2 [facility] Work Phone: Sodium [Moles/Vol] 139 mmol/L 136-145 [facility] Work Phone: WBC (Bld) [#/Vol] 6.7 10*3/uL 4.4-11.0 [facility] Work Phone: Ammonia (P) [Moles/Vol] 38.0 umol/L 11-32 [facility] Work Phone: Basophil percentage < 0.2 AI [facility] Work Phone: Bilirubin [Mass/Vol] 0.20 mg/dL 0.20-1.00 [facility]: Comment on above: For patients on eltr ombopag therapy, use of Dimension [place] TBIL is not recommended. Protein [Mass/Vol] 7.4 g/dL 6.4-8.2 [facility] Work Phone: Beta hCG serum qualon 2021 Beta HCG ( test) Ql Negative [facility] Work Phone: Bilirubin Test strip Ql (U)o n 07-13-2021 Bilirubin Ql (U) Negative Negative [facility] Work Phone: Blood erythrocytes count (nu mber/volume)on 07-13-2021 RBC (Bld) [#/Vol] 3.67 10*6/uL 4.2-5.4 [facility] Work Phone: Blood hemoglobin measurement (mass/volume)on 07-13-2021 Hemoglobin (Bld) [Mass/Vol] 12.2 g/dL 12.0-15.0 [facility] Work Phone: Blood lymphocytes/100 leukoc yteson 07-13-2021 Lymphocytes/100 WBC (Bld) 37.0 % 19-41 [facility] Work Phone: Blood monocytes/100 leukocyt eson 07-13-2021 Monocytes/100 WBC (Bld) 6.3 % 0-10 [facility] Work Phone: Blood platelet mean volumeon 07-13-2021 Platelet mean volume (Bld) [Entitic vol] 11.5 fL 6.2-12.0 [facility] Work Phone: Determination of erythrocyte mean corpuscular volume (MCV)on 07-13-2021 MCV (RBC) [Entitic vol] 101.1 fL [address] [facility] Work Phone: Direct bilirubinon 2 Bilirubin.direct [Mass/Vol] 0.08 mg/dL 0.00-0.30 [facility] Work Phone: Erythrocyte sedimentation ra ger 07-13-2021 ESR (Bld) [Velocity] 12 mm/h 0-30 [facility] Work Phone: HIV 1 and HIV-2 antibody ass ay with HIV-1 p24 antigen detectionon 07-13-2021 HIV 1+2 Ab+HIV1 p24 Ag IA Ql Non-Reactive Nonreactive [facility] Work Phone: Hematocrit Auto (Bld) [Volum e fraction]on 07-13-2021 Hematocrit (Bld) [Volume fraction] 37.1 % 37-47 [facility] Work Phone: INR in Blood by Coagulation assayon 07-13-2021 INR Coag (Bld) [Relative time] 1.0 {INR} [facility] Work Phone: INR Coag (Bld) [Relative time] 0.9 {INR} [facility] Work Phone: Ketones Test strip Ql (U)on 07-13-2021 Ketones Ql (U) Negative Negative [facility] Work Phone: Laboratory - Chemistry and C hemistry - challengeon 07-13-2021 ALP [Catalytic activity/Vol] 149 U/L 45-117 [facility] Work Phone: ALT [Catalytic activity/Vol] 21 U/L 13-56 [facility] Work Phone: CO2 [Moles/Vol] 25.0 mmol/L 21.0-32.0 [facility] Work Phone: Globulin (S) [Mass/Vol] 4.3 g/dL 2.2-4.2 [facility] Work Phone: Lipase [Catalytic activity/Vol] 101 U/L 73-393 [facility] Work Phone: Urea nitrogen/Creatinine [Mass ratio] 18.4 mg/mg 10-20 [facility] Work Phone: ALP [Catalytic activity/Vol] 141 U/L 45-117 [facility] Work Phone: ALT [Catalytic activity/Vol] 21 U/L 13-56 [facility] Work Phone: Amylase [Catalytic activity/Vol] 51 U/L 5-55 [facility] Work Phone: Globulin (S) [Mass/Vol] 4.0 g/dL 2.2-4.2 [facility] Work Phone: Laboratory - Coagulationon 0 07-13-2021 PT Coag (PPP) [Time] 12.7 s 11.7-14.9 [facility] Work Phone: PT Coag (PPP) [Time] 12.0 s 11.7-14.9 [facility] Work Phone: Laboratory - Hematology and Cell countson 07-13-2021 Erythrocyte distribution width (RBC) [Entitic vol] 46.6 fL 35.1-43.9 [facility] Work Phone: Erythrocyte distribution width (RBC) [Ratio] 12.5 % 11.6-14.6 [facility] Work Phone: Immature granulocytes/100 WBC (Bld) 0.300 % 0.0-0.9 [facility] Work Phone: Comment on above: IG% - Immature Granu locytes (promyelocytes, myelocytes and metamyelocytes) > 1% indicates that a LEFT SHIFT is Present. MCH (RBC) [Entitic mass] 33.2 pg 27.0-32.0 [facility] Work Phone: Nucleated RBC/100 WBC (Bld) [Ratio] 0 % 0-5 [facility] Work Phone: MCHC Auto (RBC) [Mass/Vol]on 07-13-2021 MCHC (RBC) [Mass/Vol] 32.9 g/dL 32-36 [facility] Work Phone: Mucus LM Ql (Urine sed)on Mucus Ql (Urine sed) 1+ /hpf [facility] Work Phone: Nitrite Test strip Ql (U)on 07-13-2021 Nitrite Ql (U) Negative Negative [facility] Work Phone: No Panel Informationon 07-13 Estimated Creatinine Clearance Calc 85.14 ml/min [facility] Work Phone: Estimated GFR (MDRD) Amer 97 mL/min >60 [facility] Work Phone: Comment on above: GFR Calc Estimated GFR (MDRD) Non-Af Amer 81 mL/min >60 [facility] Work Phone: Comment on above: Non- GFR Calc Centromere B Antibody <0.2 AI [facility] Work Phone: Ceruloplasmin 24.8 mg/dL [facility] Work Phone: Haptoglobin 211 mg/dL [facility] Work Phone: Comment on above: Performed at: - [address] [id number] Director: David Zafar PhD, Phone: [phone] at: [facility] Lab[address] [id number] Director: Jeana Ambrose MD, Phone: [phone] Hepatitis A IgM Antibody Negative Negative [facility] Work Phone: Hepatitis B Core IgM Antibody Negative Negative [facility] Work Phone: Hepatitis C Antibody (EIA) 0.2 s/co ratio [facility] Work Phone: Comment on above: Negative: < 0.8 Inde terminate: 0.8 - 0.9 Positive: > 0.9 The CDC recommends that a positive HCV antibody result be followed up with a HCV Nucleic Acid Amplification test (366374).Effective August 08, 2021 Hepatitis Panel (4) will be made non-orderable. [facility] offers order code 165170 Acute Hepatitis. 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 AI [facility] Work Phone: Platelets bldon 07-13-2021 Platelets (Bld) [#/Vol] 190 10*3/uL 150-450 [facility] Work Phone: Protein Test strip Ql (U)on 07-13-2021 Protein Ql (U) 15 mg/dl Negative [facility] Work Phone: Serum DNA double strand anti body assay (units/volume)on 07-13-2021 DNA double strand Ab Qn (S) 6 [IU]/mL [facility] Work Phone: Comment on above: Negative <5 Equivoca l 5 - 9 Positive >9 Serum Delaney-1 antibody assay (u nits/volume)on 07-13-2021 Delaney-1 extractable nuclear Ab Qn (S) <0.2 [facility] Work Phone: Serum Scl-70 extractable nuc lear antibody assay (units/volume)on 07-13-2021 SCL-70 extractable nuclear Ab Qn (S) 3.0 [facility] Work Phone: Serum [place] extractable nucl ear antibody detectionon 07-13-2021 [place] extractable nuclear Ab Ql (S) <0.2 [facility] Work Phone: Serum classic neutrophil cyt oplasmic antibody assay (units/volume)on 07-13-2021 Neutrophil cytoplasmic Ab.classic Qn (S) <1:20 titer Neg:<1:20 [facility] Work Phone: Serum mitochondria antibody detectionon 07-13-2021 Mitochondria Ab Ql (S) <20.0 Units [facility] Work Phone: Comment on above: Negative 0.0 - 20.0 Equivocal 20.1 - 24.9 Positive >24.9Mitochondrial (M2) Antibodies are found in 90-96% ofpatients with primary biliary cirrhosis.Performed at: [facility] [place] [id number] Director: David Zafar PhD, Phone: [phone] Serum or plasma C reactive p rotein measurement (mass/volume)on 07-13-2021 CRP [Mass/Vol] 4.92 mg/L 0.0-3.0 [facility] Work Phone: Comment on above: C-Reactive Protein ( CRP) provides useful information for thediagnosis, therapy and monitoring of inflammatory processesand associated diseases. For the evaluation of Relative Riskfor Cardiovascular Disease, a High Sensitivity CRP (HSCRP)should be ordered. Serum or plasma actin IgG an tibody assay (units/volume)on 07-13-2021 Actin IgG Qn 15 Units [facility] Work Phone: Comment on above: Negative 0 - 19 Weak positive 20 - 30 Moderate to strong positive >30 Actin Antibodies are found in 52-85% of patients with autoimmune hepatitis or chronic active hepatitis and in 22% of patients with primary biliary cirrhosis. Serum or plasma albumin greg urement (mass/volume)on 07-13-2021 Albumin [Mass/Vol] 3.5 g/dL 3.2-5.0 [facility] Work Phone: Albumin [Mass/Vol] 3.4 g/dL 3.2-5.0 [facility] Work Phone: Serum or plasma albumin/glob ulin mass ratioon 07-13-2021 Albumin/Globulin [Mass ratio] 0.8 {ratio} 0.9-2.4 [facility] Work Phone: Serum or plasma angiotensin converting enzyme measurement (enzymatic activity/volume)on 07-13-2021 Angiotensin converting enzyme [Catalytic activity/Vol] 28 U/L [facility] Work Phone: Serum or plasma calcium greg urement (mass/volume)on 07-13-2021 Calcium [Mass/Vol] 8.5 mg/dL 8.5-10.1 [facility] Work Phone: Serum or plasma creatinine m easurement (mass/volume)on 07-13-2021 Creatinine [Mass/Vol] 0.82 mg/dL 0.55-1.02 [facility] Work Phone: Comment on above: The validity of the calculated GFR & GFRAA in patients over 70 years has not been determined. Clinical correlation is essential. Serum or plasma ferritin clarisa surement (mass/volume)on 07-13-2021 Ferritin [Mass/Vol] 42 ng/mL 8-252 [facility] Work Phone: Serum or plasma hepatitis B virus surface antigen detection by immunoassayon 07-13-2021 HBV surface Ag IA Ql Negative Negative [facility] Work Phone: Serum or plasma urea nitroge n measurement (mass/volume)on 07-13-2021 Urea nitrogen [Mass/Vol] 15 mg/dL 7-18 [facility] Work Phone: Serum perinuclear neutrophil cytoplasmic antibody titer by immunofluorescenceon 07-13-2021 Neutrophil cytoplasmic Ab.perinuclear IF (S) [Titer] <1:20 titer Neg:<1:20 [facility] Work Phone: Comment on above: The presence of posi tive fluorescence exhibiting P-ANCA orC-ANCA patterns alone is not specific for the diagnosis ofWegener's Granulomatosis (WG) or microscopic polyangiitis.Decisions about treatment should not be based solely onANCA IFA results. The [employer] Consensusrecommends follow up testing of positive sera with both MS-3 and MPO-ANCA enzyme immunoassays. As many as 5% serumsamples are positive only by EIA. Ref. AM J Clin Mqtrvb1817;111:507-513. Squamous epithelial cells de tection in urine sediment by light microscopyon 07-13-2021 Epithelial cells.squamous LM Ql (Urine sed) 0-5 SEEN /hpf [facility] Work Phone: Thin prep Papanicolaou smear with manual screeningon 07-13-2021 Thin prep Papanicolaou smear with manual screening 19 U/L 15-37 [facility] Work Phone: Thin prep Papanicolaou smear with manual screening 4 5-15 [facility] Work Phone: Thin prep Papanicolaou smear with manual screening 16 U/L 15-37 [facility] Work Phone: Thin prep Papanicolaou smear with manual screening 203 U/L 84-246 [facility] Work Phone: Thin prep Papanicolaou smear with manual screening 110 ug/dL [facility] Work Phone: Comment on above: Detection Limit = 5 Urine blood detectionon - RBC Ql (U) 10 /ul Negative [facility] Work Phone: RBC Ql (U) 0 SEEN /hpf [facility] Work Phone: Urine clarityon 07-13-2021 Clarity (U) Clear Clear [facility] Work Phone: Urine color determinationon 07-13-2021 Color (U) Yellow Yellow [facility] Work Phone: Urine glucose detectionon Glucose Ql (U) Normal mg/dl Normal [facility] Work Phone: Urine leukocyte esterase det ection by dipstickon 07-13-2021 Leukocyte esterase Test strip Ql (U) Negative Negative [facility] Work Phone: Urine pHon 07-13-2021 pH (U) 6.5 [pH] [facility] Work Phone: Urine sediment bacteria coun t by microscopy (number/high power field)on 07-13-2021 Bacteria LM.HPF (Urine sed) [#/Area] 0 /[HPF] None Seen [facility] Work Phone: Urine specific gravity measu rementon 07-13-2021 Specific gravity (U) [Rel density] 1.015 [facility] Work Phone: Urobilinogen Auto test strip Ql (U)on 07-13-2021 Urobilinogen Ql (U) Normal mg/dl Normal [facility] Work Phone: Whole blood hemoglobin A1c/t otal hemoglobin ratio (mass fraction)on 07-13-2021 HbA1c (Bld) [Mass fraction] 5.4 % 3.8-5.6 [facility] Work Phone: Comment on above: Normal < 5.7 % Predi abetic 5.7 - 6.4 % Diabetic >or= 6.5 % Please note range changes. No Panel Informationon 07-11 [facility] Absolute lymphocyte counton 06-16-2021 Lymphocytes Auto (Unsp spec) [#/Vol] 1.61 10*3/uL 0.83-4.51 [facility] Work Phone: Basophil percentageon 2021 Basophil percentage 5-10 SEEN /hpf [facility] Work Phone: Basophils/100 WBC (Bld) 0.5 % 0-1 [facility] Work Phone: Bilirubin [Mass/Vol] 0.20 mg/dL 0.20-1.00 [facility] Work Phone: Comment on above: For patients on eltr ombopag therapy, use of Dimension [place] TBIL is not recommended. Chloride [Moles/Vol] 105 mmol/L 98-107 [facility] Work Phone: Eosinophils/100 WBC (Bld) 1.7 % 0-5 [facility] Work Phone: Glucose [Mass/Vol] 111 mg/dL 74-106 [facility] Work Phone: Comment on above: Fasting Glucose resu lt from 100 to 125 mg/dL suggests IMPAIRED HOMEOSTASIS per A.D.A. criteria. Neutrophils (Bld) [#/Vol] 4.5 10*3/uL 2.0-7.7 [facility] Work Phone: Neutrophils/100 WBC (Bld) 68.4 % 47-70 [facility] Work Phone: Potassium [Moles/Vol] 3.3 mmol/L 3.5-5.1 [facility] Work Phone: Protein [Mass/Vol] 8.1 g/dL 6.4-8.2 [facility] Work Phone: Sodium [Moles/Vol] 140 mmol/L 136-145 [facility] Work Phone: WBC (Bld) [#/Vol] 6.6 10*3/uL 4.4-11.0 [facility] Work Phone: [phone] Bilirubin Test strip Ql (U)o n 06-16-2021 Bilirubin Ql (U) Negative Negative [facility] Work Phone: [phone] Blood erythrocytes count (nu mber/volume)on 06-16-2021 RBC (Bld) [#/Vol] 3.99 10*6/uL 4.2-5.4 [facility] Work Phone: Blood hemoglobin measurement (mass/volume)on 06-16-2021 Hemoglobin (Bld) [Mass/Vol] 13.4 g/dL 12.0-15.0 [facility] Work Phone: Blood lymphocytes/100 leukoc yteson 06-16-2021 Lymphocytes/100 WBC (Bld) 24.4 % 19-41 [facility] Work Phone: Blood monocytes/100 leukocyt eson 06-16-2021 Monocytes/100 WBC (Bld) 4.7 % 0-10 [facility] Work Phone: Blood platelet mean volumeon 06-16-2021 Platelet mean volume (Bld) [Entitic vol] 11.0 fL 6.2-12.0 [facility] Work Phone: Determination of erythrocyte mean corpuscular volume (MCV)on 06-16-2021 MCV (RBC) [Entitic vol] 100.5 fL 81-99 [facility] Work Phone: Direct bilirubinon 2 Bilirubin.direct [Mass/Vol] 0.09 mg/dL 0.00-0.30 [facility] Work Phone: Hematocrit Auto (Bld) [Volum e fraction]on 06-16-2021 Hematocrit (Bld) [Volume fraction] 40.1 % 37-47 [facility] Work Phone: Ketones Test strip Ql (U)on 06-16-2021 Ketones Ql (U) 5 mg/dl Negative [facility] Work Phone: Laboratory - Chemistry and C hemistry - challengeon 06-16-2021 ALP [Catalytic activity/Vol] 160 U/L 45-117 [facility] Work Phone: ALT [Catalytic activity/Vol] 20 U/L 13-56 [facility] Work Phone: CO2 [Moles/Vol] 29.0 mmol/L 21.0-32.0 [facility] Work Phone: Globulin (S) [Mass/Vol] 4.3 g/dL 2.2-4.2 [facility] Work Phone: Lipase [Catalytic activity/Vol] 88 U/L 73-393 [facility] Work Phone: Urea nitrogen/Creatinine [Mass ratio] 14.9 mg/mg 10-20 [facility] Work Phone: Laboratory - Hematology and Cell countson 06-16-2021 Erythrocyte distribution width (RBC) [Entitic vol] 46.2 fL 35.1-43.9 [facility] Work Phone: Erythrocyte distribution width (RBC) [Ratio] 12.4 % 11.6-14.6 [facility] Work Phone: Immature granulocytes/100 WBC (Bld) 0.300 % 0.0-0.9 [facility] Work Phone: Comment on above: IG% - Immature Granu locytes (promyelocytes, myelocytes and metamyelocytes) > 1% indicates that a LEFT SHIFT is Present. MCH (RBC) [Entitic mass] 33.6 pg 27.0-32.0 [facility] Work Phone: Nucleated RBC/100 WBC (Bld) [Ratio] 0 % 0-5 [facility] Work Phone: MCHC Auto (RBC) [Mass/Vol]on 06-16-2021 MCHC (RBC) [Mass/Vol] 33.4 g/dL 32-36 [facility] Work Phone: Mucus LM Ql (Urine sed)on Mucus Ql (Urine sed) 0 SEEN /hpf [facility] Work Phone: Nitrite Test strip Ql (U)on 06-16-2021 Nitrite Ql (U) Negative Negative [facility] Work Phone: No Panel Informationon 06-16 Estimated Creatinine Clearance Calc 104.20 ml/min [facility] Work Phone: Estimated GFR (MDRD) Amer 123 mL/min >60 [facility] Work Phone: Comment on above: GFR Calc Estimated GFR (MDRD) Non-Af Amer 101 mL/min >60 [facility] Work Phone: Comment on above: Non- GFR Calc Platelets bldon 06-16-2021 Platelets (Bld) [#/Vol] 170 10*3/uL 150-450 [facility] Work Phone: Protein Test strip Ql (U)on 06-16-2021 Protein Ql (U) 15 mg/dl Negative [facility] Work Phone: Serum or plasma albumin greg urement (mass/volume)on 06-16-2021 Albumin [Mass/Vol] 3.8 g/dL 3.2-5.0 [facility] Work Phone: Serum or plasma calcium greg urement (mass/volume)on 06-16-2021 Calcium [Mass/Vol] 8.8 mg/dL 8.5-10.1 [facility] Work Phone: Serum or plasma creatinine m easurement (mass/volume)on 06-16-2021 Creatinine [Mass/Vol] 0.67 mg/dL 0.55-1.02 [facility] Work Phone: Comment on above: The validity of the calculated GFR & GFRAA in patients over 70 years has not been determined. Clinical correlation is essential. Serum or plasma urea nitroge n measurement (mass/volume)on 06-16-2021 Urea nitrogen [Mass/Vol] 10 mg/dL 7-18 [facility] Work Phone: Squamous epithelial cells de tection in urine sediment by light microscopyon 06-16-2021 Epithelial cells.squamous LM Ql (Urine sed) 0 SEEN /hpf [facility] Work Phone: Thin prep Papanicolaou smear with manual screeningon 06-16-2021 Thin prep Papanicolaou smear with manual screening 13 U/L 15-37 [facility] Work Phone: Thin prep Papanicolaou smear with manual screening 6 5-15 [facility] Work Phone: Urine blood detectionon 06-07 RBC Ql (U) 25 /ul Negative [facility] Work Phone: RBC Ql (U) 0 SEEN /hpf [facility] Work Phone: Urine clarityon 06-16-2021 Clarity (U) Sl. Cloudy Clear [facility] Work Phone: Urine color determinationon 06-16-2021 Color (U) Yellow Yellow [facility] Work Phone: Urine glucose detectionon Glucose Ql (U) Normal mg/dl Normal [facility] Work Phone: Urine leukocyte esterase det ection by dipstickon 06-16-2021 Leukocyte esterase Test strip Ql (U) 25 /ul Negative [facility] Work Phone: Urine pHon 06-16-2021 pH (U) 5.0 [pH] [facility] Work Phone: Urine sediment bacteria coun t by microscopy (number/high power field)on 06-16-2021 Bacteria LM.HPF (Urine sed) [#/Area] 2 /[HPF] None Seen [facility] Work Phone: Urine specific gravity measu rementon 06-16-2021 Specific gravity (U) [Rel density] 1.020 [facility] Work Phone: Urobilinogen Auto test strip Ql (U)on 06-16-2021 Urobilinogen Ql (U) Normal mg/dl Normal [facility] Work Phone: LABORATORYOrdered By: Agapito Katz on 06-14-2021 Occult Bld Stl Negative (06/14/21 2:18 PM) [facility] Work Phone: LABORATORYOrdered By: Jatinder Schmid on 06-14-2021 Albumin BCP dye [Mass/Vol] 3.5 G/dL Invalid Interpretation Code 3.5 - 5.0 G/dL AO ADM SS Albumin/Globulin [Mass ratio] 1.0 {ratio} Invalid Interpretation Code 1.1 - 2.5 ratio AO ADM SS ALP [Catalytic activity/Vol] 156 U/L Invalid Interpretation Code 40 - 135 U/L AO ADM SS ALT With P-5'-P [Catalytic activity/Vol] 20 U/L Invalid Interpretation Code 14 - 59 U/L AO ADM SS AST With P-5'-P [Catalytic activity/Vol] 12 U/L Invalid Interpretation Code 10 - 40 U/L AO ADM SS Bilirubin [Mass/Vol] 0.2 mg/dL Invalid Interpretation Code 0.2 - 1.0 mg/dL AO ADM SS Calcium [Mass/Vol] 8.1 mg/dL Invalid Interpretation Code 8.4 - 10.2 mg/dL AO ADM SS Chloride [Moles/Vol] 107 mmol/L Invalid Interpretation Code 98 - 107 mmol/L AO ADM SS CO2 [Moles/Vol] 23 mmol/L Invalid Interpretation Code 22 - 29 mmol/L AO ADM SS Creatinine [Mass/Vol] 0.71 mg/dL Invalid Interpretation Code 0.55 - 1.02 mg/dL AO ADM SS Electrolyte Balance 12.0 mEq/L Invalid Interpretation Code 4.0 - 15.0 mEq/L AO ADM SS Globulin 3.6 G/dL Invalid Interpretation Code AO ADM SS Glucose [Mass/Vol] 97 mg/dL Invalid Interpretation Code 70 - 105 mg/dL AO ADM SS Lipase [Catalytic activity/Vol] 88 U/L Invalid Interpretation Code 73 - 393 U/L AO ADM SS Potassium [Moles/Vol] 3.7 mmol/L Invalid Interpretation Code 3.5 - 5.1 mmol/L AO ADM SS Protein [Mass/Vol] 7.1 G/dL Invalid Interpretation Code 6.4 - 8.2 G/dL AO ADM SS Sodium [Moles/Vol] 142 mmol/L Invalid Interpretation Code 136 - 145 mmol/L AO ADM SS Urea nitrogen [Mass/Vol] 10 mg/dL Invalid Interpretation Code 7 - 18 mg/dL AO ADM SS Urea nitrogen/Creatinine [Mass ratio] 14 ratio Invalid Interpretation Code 7 - 27 ratio AO ADM SS LABORATORYOrdered By: Jatinder Gotti on 06-14-2021 Basophil, Absolute 0.00 103/mcL Invalid Interpretation Code 0.00 - 0.19 10^3/mcL AO Auto Heme SS Basophils/100 WBC (Bld) 0.7 % Invalid Interpretation Code 0.0 - 2.5 % AO Auto Heme SS Eosinophil, Absolute 0.20 103/mcL Invalid Interpretation Code 0.00 - 0.40 10^3/mcL AO Auto Heme SS Eosinophils/100 WBC (Bld) 3.7 % Invalid Interpretation Code 0.0 - 7.0 % AO Auto Heme SS Erythrocyte distribution width (RBC) [Ratio] 13.5 % Invalid Interpretation Code 11.5 - 14.5 % AO Auto Heme SS Hematocrit (Bld) [Volume fraction] 36.0 % Invalid Interpretation Code 37.0 - 47.0 % AO Auto Heme SS Hemoglobin (Bld) [Mass/Vol] 12.4 G/dL Invalid Interpretation Code 12.0 - 16.0 G/dL AO Auto Heme SS Lymphocyte, Absolute 1.80 103/mcL Invalid Interpretation Code 0.77 - 3.85 10^3/mcL AO Auto Heme SS Lymphocytes/100 WBC (Bld) 36.8 % Invalid Interpretation Code 10.0 - 50.0 % AO Auto Heme SS MCH (RBC) [Entitic mass] 34.1 pg Invalid Interpretation Code 27.0 - 31.2 pg AO Auto Heme SS MCHC (RBC) [Mass/Vol] 34.3 G/dL Invalid Interpretation Code 33.0 - 37.0 G/dL AO Auto Heme SS MCV (RBC) [Entitic vol] 99.3 fL Invalid Interpretation Code 80.0 - 94.0 fL AO Auto Heme SS Monocyte, Absolute 0.30 103/mcL Invalid Interpretation Code 0.15 - 1.00 10^3/mcL AO Auto Heme SS Monocytes/100 WBC (Bld) 5.7 % Invalid Interpretation Code 1.7 - 13.0 % AO Auto Heme SS Neutrophil, Absolute 2.70 103/mcL Invalid Interpretation Code 2.85 - 6.16 10^3/mcL AO Auto Heme SS Neutrophils/100 WBC (Bld) 53.1 % Invalid Interpretation Code 37.0 - 80.0 % AO Auto Heme SS Platelet mean volume (Bld) [Entitic vol] 9.6 fL Invalid Interpretation Code 7.4 - 10.4 fL AO Auto Heme SS Platelets (Bld) [#/Vol] 169 103/mcL Invalid Interpretation Code 130 - 400 10^3/mcL AO Auto Heme SS RBC (Bld) [#/Vol] 3.63 106/mcL Invalid Interpretation Code 4.20 - 5.40 10^6/mcL AO Auto Heme SS WBC (Bld) [#/Vol] 5.00 103/mcL Invalid Interpretation Code 4.60 - 10.80 10^3/mcL AO Auto Heme SS LABORATORYOrdered By: SYSTEM SYSTEM on 06-14-2021 GFR 108 ml/min/1.73sqm Invalid Interpretation Code AO Chemistry S GFR Non- 89 ml/min/1.73sqm Invalid Interpretation Code AO Chemistry S Absolute lymphocyte counton 06-09-2021 Lymphocytes Auto (Unsp spec) [#/Vol] 1.88 10*3/uL 0.83-4.51 [facility] Work Phone: Basophil percentageon 2021 Basophil percentage 0-5 SEEN /hpf [facility] Work Phone: Basophils/100 WBC (Bld) 0.7 % 0-1 [facility] Work Phone: Bilirubin [Mass/Vol] 0.40 mg/dL 0.20-1.00 [facility] Work Phone: Comment on above: For patients on eltr ombopag therapy, use of Dimension [place] TBIL is not recommended. Chloride [Moles/Vol] 120 mmol/L 98-107 [facility] Work Phone: Eosinophils/100 WBC (Bld) 3.8 % 0-5 [facility] Work Phone: Glucose [Mass/Vol] 71 mg/dL 74-106 [facility] Work Phone: Neutrophils (Bld) [#/Vol] 3.6 10*3/uL 2.0-7.7 [facility] Work Phone: Neutrophils/100 WBC (Bld) 59.0 % 47-70 [facility] Work Phone: Potassium [Moles/Vol] 3.1 mmol/L 3.5-5.1 [facility] Work Phone: [phone] Comment on above: Moderate Hemolysis, Result may be falsely increased. Protein [Mass/Vol] 5.5 g/dL 6.4-8.2 [facility] Work Phone: Sodium [Moles/Vol] 144 mmol/L 136-145 [facility] Work Phone: WBC (Bld) [#/Vol] 6.0 10*3/uL 4.4-11.0 [facility] Work Phone: Bilirubin Test strip Ql (U)o n 06-09-2021 Bilirubin Ql (U) Negative Negative [facility] Work Phone: Blood erythrocytes count (nu mber/volume)on 06-09-2021 RBC (Bld) [#/Vol] 3.92 10*6/uL 4.2-5.4 [facility] Work Phone: Blood hemoglobin measurement (mass/volume)on 06-09-2021 Hemoglobin (Bld) [Mass/Vol] 13.3 g/dL 12.0-15.0 [facility] Work Phone: Blood lymphocytes/100 leukoc yteson 06-09-2021 Lymphocytes/100 WBC (Bld) 31.2 % 19-41 [facility] Work Phone: Blood monocytes/100 leukocyt eson 06-09-2021 Monocytes/100 WBC (Bld) 4.8 % 0-10 [facility] Work Phone: Blood platelet mean volumeon 06-09-2021 Platelet mean volume (Bld) [Entitic vol] 12.0 fL 6.2-12.0 [facility] Work Phone: Determination of erythrocyte mean corpuscular volume (MCV)on 06-09-2021 MCV (RBC) [Entitic vol] 104.6 fL 81-99 [facility] Work Phone: Direct bilirubinon 2 Bilirubin.direct [Mass/Vol] mg/dL 0.00-0.30 [facility] Work Phone: Hematocrit Auto (Bld) [Volum e fraction]on 06-09-2021 Hematocrit (Bld) [Volume fraction] 41.0 % 37-47 [facility] Work Phone: Ketones Test strip Ql (U)on 06-09-2021 Ketones Ql (U) Negative Negative [facility] Work Phone: Laboratory - Chemistry and C hemistry - challengeon 06-09-2021 ALP [Catalytic activity/Vol] 98 U/L 45-117 [facility] Work Phone: ALT [Catalytic activity/Vol] 15 U/L 13-56 [facility] Work Phone: CO2 [Moles/Vol] 20.0 mmol/L 21.0-32.0 [facility] Work Phone: Globulin (S) [Mass/Vol] 3.2 g/dL 2.2-4.2 [facility] Work Phone: Lipase [Catalytic activity/Vol] 45 U/L 73-393 [facility] Work Phone: Urea nitrogen/Creatinine [Mass ratio] 25.6 mg/mg 10-20 [facility] Work Phone: Laboratory - Hematology and Cell countson 06-09-2021 Erythrocyte distribution width (RBC) [Entitic vol] 49.7 fL 35.1-43.9 [facility] Work Phone: Erythrocyte distribution width (RBC) [Ratio] 13.0 % 11.6-14.6 [facility] Work Phone: Immature granulocytes/100 WBC (Bld) 0.500 % 0.0-0.9 [facility] Work Phone: Comment on above: IG% - Immature Granu locytes (promyelocytes, myelocytes and metamyelocytes) > 1% indicates that a LEFT SHIFT is Present. MCH (RBC) [Entitic mass] 33.9 pg 27.0-32.0 [facility] Work Phone: Nucleated RBC/100 WBC (Bld) [Ratio] 0 % 0-5 [facility] Work Phone: MCHC Auto (RBC) [Mass/Vol]on 06-09-2021 MCHC (RBC) [Mass/Vol] 32.4 g/dL 32-36 [facility] Work Phone: Mucus LM Ql (Urine sed)on Mucus Ql (Urine sed) 0 SEEN /hpf [facility] Work Phone: Nitrite Test strip Ql (U)on 06-09-2021 Nitrite Ql (U) Negative Negative [facility] Work Phone: No Panel Informationon 06-09 Estimated Creatinine Clearance Calc 179.01 ml/min [facility] Work Phone: Estimated GFR (MDRD) Amer 228 mL/min >60 [facility] Work Phone: Comment on above: GFR Calc Estimated GFR (MDRD) Non-Af Amer 189 mL/min >60 [facility] Work Phone: Comment on above: Non- GFR Calc Platelets bldon 06-09-2021 Platelets (Bld) [#/Vol] 158 10*3/uL 150-450 [facility] Work Phone: Protein Test strip Ql (U)on 06-09-2021 Protein Ql (U) Negative Negative [facility] Work Phone: Serum or plasma albumin greg urement (mass/volume)on 06-09-2021 Albumin [Mass/Vol] 2.3 g/dL 3.2-5.0 [facility] Work Phone: Serum or plasma calcium greg urement (mass/volume)on 06-09-2021 Calcium [Mass/Vol] 6.2 mg/dL 8.5-10.1 [facility] Work Phone: Comment on above: Critical Result(s) C alled at: 10:53:07 06/09/2021 by: Babs Baldwin to Praneeth. Results read back by same. Serum or plasma creatinine m easurement (mass/volume)on 06-09-2021 Creatinine [Mass/Vol] 0.39 mg/dL 0.55-1.02 [facility] Work Phone: Comment on above: The validity of the calculated GFR & GFRAA in patients over 70 years has not been determined. Clinical correlation is essential. Serum or plasma urea nitroge n measurement (mass/volume)on 06-09-2021 Urea nitrogen [Mass/Vol] 10 mg/dL 7-18 [facility] Work Phone: Squamous epithelial cells de tection in urine sediment by light microscopyon 06-09-2021 Epithelial cells.squamous LM Ql (Urine sed) 0-5 SEEN /hpf [facility] Work Phone: Thin prep Papanicolaou smear with manual screeningon 06-09-2021 Thin prep Papanicolaou smear with manual screening 27 U/L 15-37 [facility] Work Phone: Comment on above: Moderate Hemolysis, Result may be falsely increased. Thin prep Papanicolaou smear with manual screening 4 5-15 [facility] Work Phone: Urine blood detectionon - RBC Ql (U) Negative Negative [facility] Work Phone: RBC Ql (U) 0-5 SEEN /hpf [facility] Work Phone: Urine clarityon 06-09-2021 Clarity (U) Sl. Cloudy Clear [facility] Work Phone: Urine color determinationon 06-09-2021 Color (U) Yellow Yellow [facility] Work Phone: Urine glucose detectionon Glucose Ql (U) Normal mg/dl Normal [facility] Work Phone: Urine leukocyte esterase det ection by dipstickon 06-09-2021 Leukocyte esterase Test strip Ql (U) 25 /ul Negative [facility] Work Phone: Urine pHon 06-09-2021 pH (U) 8.0 [pH] [facility] Work Phone: Urine sediment bacteria coun t by microscopy (number/high power field)on 06-09-2021 Bacteria LM.HPF (Urine sed) [#/Area] RARE /hpf None Seen [facility] Work Phone: Urine specific gravity measu rementon 06-09-2021 Specific gravity (U) [Rel density] 1.015 [facility] Work Phone: Urobilinogen Auto test strip Ql (U)on 06-09-2021 Urobilinogen Ql (U) Normal mg/dl Normal [facility] Work Phone: Laboratory - Microbiology an d Antimicrobial susceptibilityon 04-21-2021 SARS-CoV-2 (COVID-19) RNA KAROLYN+probe Ql (Unsp spec) Not detected Not Detect [facility] Work Phone: Comment on above: Normal Reference Ran ge: Not DetectedMethod:(RT-PCR) real-time reverse transcriptase PCRLuPresenterNet Instrument*The Food and Drug Administration (FDA) has issued an Emergency Use Authorization (EAU) for the MURTAZA SARS-CoV-2 Assay for the rapid detection of the virus that causes COVID-19. This test has been validated, but the FDAs independent review of this validation is pending.*Negative results do not preclude infection and should not be used as the sole basis for treatment or patient management. Optimum specimen types and timing for peak viral levels during infections caused by SARS-CoV-2 have not been determined. Collection of multiple specimens from the same patient may be necessary to detect the virus. The possibility of a false negative result should be considered if the patient has clinical presentation or has had recent exposure. Absolute lymphocyte counton 04-12-2021 Lymphocytes Auto (Unsp spec) [#/Vol] 1.94 10*3/uL 0.83-4.51 [facility] Work Phone: Basophil percentageon 2021 Basophils/100 WBC (Bld) 0.6 % 0-1 [facility] Work Phone: Chloride [Moles/Vol] 110 mmol/L 98-107 [facility] Work Phone: Eosinophils/100 WBC (Bld) 4.8 % 0-5 [facility] Work Phone: Glucose [Mass/Vol] 88 mg/dL 74-106 [facility] Work Phone: Comment on above: Please note revised GLUCOSE reference range effective 2017. Neutrophils (Bld) [#/Vol] 2.4 10*3/uL 2.0-7.7 [facility] Work Phone: Neutrophils/100 WBC (Bld) 49.0 % 47-70 [facility] Work Phone: Potassium [Moles/Vol] 3.5 mmol/L 3.5-5.1 [facility] Work Phone: Sodium [Moles/Vol] 144 mmol/L 136-145 [facility] Work Phone: WBC (Bld) [#/Vol] 4.8 10*3/uL 4.4-11.0 [facility] Work Phone: Basophil percentage 0 SEEN /hpf [facility] Work Phone: Bilirubin Test strip Ql (U)o n 04-12-2021 Bilirubin Ql (U) Negative Negative [facility] Work Phone: Blood erythrocytes count (nu mber/volume)on 04-12-2021 RBC (Bld) [#/Vol] 3.73 10*6/uL 4.2-5.4 [facility]: Blood hemoglobin measurement (mass/volume)on 04-12-2021 Hemoglobin (Bld) [Mass/Vol] 12.3 g/dL 12.0-15.0 [facility] Work Phone: Blood lymphocytes/100 leukoc yteson 04-12-2021 Lymphocytes/100 WBC (Bld) 40.2 % 19-41 [facility] Work Phone: Blood monocytes/100 leukocyt eson 04-12-2021 Monocytes/100 WBC (Bld) 5.2 % 0-10 [facility] Work Phone: Blood platelet mean volumeon 04-12-2021 Platelet mean volume (Bld) [Entitic vol] 11.7 fL 6.2-12.0 [facility] Work Phone: Determination of erythrocyte mean corpuscular volume (MCV)on 04-12-2021 MCV (RBC) [Entitic vol] 100.5 fL 81-99 [facility] Work Phone: Hematocrit Auto (Bld) [Volum e fraction]on 04-12-2021 Hematocrit (Bld) [Volume fraction] 37.5 % 37-47 [facility] Work Phone: INR in Blood by Coagulation assayon 04-12-2021 INR Coag (Bld) [Relative time] 1.0 {INR} [facility] Work Phone: Ketones Test strip Ql (U)on 04-12-2021 Ketones Ql (U) Negative Negative [facility] Work Phone: Laboratory - Chemistry and C hemistry - challengeon 04-12-2021 CO2 [Moles/Vol] 27.0 mmol/L 21.0-32.0 [facility] Work Phone: Urea nitrogen/Creatinine [Mass ratio] 17.8 mg/mg 10-20 [facility] Work Phone: Laboratory - Coagulationon 0 04-12-2021 aPTT Coag (Bld) [Time] 30.8 s 24.1-36.2 [facility] Work Phone: PT Coag (PPP) [Time] 12.8 s 11.7-14.9 [facility] Work Phone: Laboratory - Hematology and Cell countson 04-12-2021 Erythrocyte distribution width (RBC) [Entitic vol] 47.1 fL 35.1-43.9 [facility] Work Phone: Erythrocyte distribution width (RBC) [Ratio] 12.6 % 11.6-14.6 [facility] Work Phone: Immature granulocytes/100 WBC (Bld) 0.200 % 0.0-0.9 [facility] Work Phone: Comment on above: IG% - Immature Granu locytes (promyelocytes, myelocytes and metamyelocytes) > 1% indicates that a LEFT SHIFT is Present. MCH (RBC) [Entitic mass] 33.0 pg 27.0-32.0 [facility] Work Phone: Nucleated RBC/100 WBC (Bld) [Ratio] 0 % 0-5 [facility] Work Phone: MCHC Auto (RBC) [Mass/Vol]on 04-12-2021 MCHC (RBC) [Mass/Vol] 32.8 g/dL 32-36 [facility] Work Phone: Mucus LM Ql (Urine sed)on Mucus Ql (Urine sed) 1+ /hpf [facility] Work Phone: Nitrite Test strip Ql (U)on 04-12-2021 Nitrite Ql (U) Negative Negative [facility] Work Phone: No Panel Informationon 04-12 Estimated Creatinine Clearance Calc 104.20 ml/min [facility] Work Phone: Estimated GFR (MDRD) Amer 122 mL/min >60 [facility] Work Phone: Comment on above: GFR Calc Estimated GFR (MDRD) Non-Af Amer 101 mL/min >60 [facility] Work Phone: Comment on above: Non- GFR Calc Platelets bldon 04-12-2021 Platelets (Bld) [#/Vol] 170 10*3/uL 150-450 [facility] Work Phone: Protein Test strip Ql (U)on 04-12-2021 Protein Ql (U) 15 mg/dl Negative [facility] Work Phone: Serum or plasma calcium greg urement (mass/volume)on 04-12-2021 Calcium [Mass/Vol] 8.8 mg/dL 8.5-10.1 [facility] Work Phone: Serum or plasma creatinine m easurement (mass/volume)on 04-12-2021 Creatinine [Mass/Vol] 0.67 mg/dL 0.55-1.02 [facility] Work Phone: Comment on above: The validity of the calculated GFR & GFRAA in patients over 70 years has not been determined. Clinical correlation is essential. Serum or plasma urea nitroge n measurement (mass/volume)on 04-12-2021 Urea nitrogen [Mass/Vol] 12 mg/dL 7-18 [facility] Work Phone: Squamous epithelial cells de tection in urine sediment by light microscopyon 04-12-2021 Epithelial cells.squamous LM Ql (Urine sed) 0-5 SEEN /hpf [facility] Work Phone: Thin prep Papanicolaou smear with manual screeningon 04-12-2021 Thin prep Papanicolaou smear with manual screening 7 5-15 [facility] Work Phone: Urine blood detectionon RBC Ql (U) 10 /ul Negative [facility] Work Phone: RBC Ql (U) 0 SEEN /hpf [facility] Work Phone: Urine clarityon 04-12-2021 Clarity (U) Clear Clear [facility] Work Phone: Urine color determinationon 04-12-2021 Color (U) Yellow Yellow [facility] Work Phone: Urine glucose detectionon Glucose Ql (U) Normal mg/dl Normal [facility] Work Phone: Urine leukocyte esterase det ection by dipstickon 04-12-2021 Leukocyte esterase Test strip Ql (U) 25 /ul Negative [facility] Work Phone: Urine pHon 04-12-2021 pH (U) 7.0 [pH] [facility] Work Phone: Urine sediment bacteria coun t by microscopy (number/high power field)on 04-12-2021 Bacteria LM.HPF (Urine sed) [#/Area] 0 /[HPF] None Seen [facility] Work Phone: Urine specific gravity measu rementon 04-12-2021 Specific gravity (U) [Rel density] 1.015 [facility] Work Phone: Urobilinogen Auto test strip Ql (U)on 04-12-2021 Urobilinogen Ql (U) Normal mg/dl Normal [facility] Work Phone: Absolute lymphocyte counton 04-08-2021 Lymphocytes Auto (Unsp spec) [#/Vol] 1.73 10*3/uL 0.83-4.51 [facility] Work Phone: Basophil percentageon 2020 Chloride [Moles/Vol] 111 mmol/L 98-107 [facility] Work Phone: Eosinophils/100 WBC (Bld) 4.3 % 0-5 [facility] Work Phone: Glucose [Mass/Vol] 95 mg/dL 74-106 [facility] Work Phone: Comment on above: Please note revised GLUCOSE reference range effective 2017. Neutrophils (Bld) [#/Vol] 2.8 10*3/uL 2.0-7.7 [facility] Work Phone: [phone] Potassium [Moles/Vol] 3.7 mmol/L 3.5-5.1 [facility] Work Phone: Sodium [Moles/Vol] 143 mmol/L 136-145 [facility] Work Phone: WBC (Bld) [#/Vol] 5.1 10*3/uL 4.4-11.0 [facility] Work Phone: Basophil percentage 0 SEEN /hpf [facility] Work Phone: Bilirubin Test strip Ql (U)o n 04-08-2021 Bilirubin Ql (U) Negative Negative [facility] Work Phone: Blood erythrocytes count (nu mber/volume)on 04-08-2021 RBC (Bld) [#/Vol] 3.77 10*6/uL 4.2-5.4 [facility] Work Phone: Blood hemoglobin measurement (mass/volume)on 04-08-2021 Hemoglobin (Bld) [Mass/Vol] 12.5 g/dL 12.0-15.0 [facility] Work Phone: Blood lymphocytes/100 leukoc yteson 04-08-2021 Lymphocytes/100 WBC (Bld) 33.8 % 19-41 [facility] Work Phone: [phone] Blood monocytes/100 leukocyt eson 04-08-2021 Monocytes/100 WBC (Bld) 5.7 % 0-10 [facility] Work Phone: Blood platelet mean volumeon 04-08-2021 Platelet mean volume (Bld) [Entitic vol] 11.2 fL 6.2-12.0 [facility] Work Phone: Determination of erythrocyte mean corpuscular volume (MCV)on 04-08-2021 MCV (RBC) [Entitic vol] 97.9 fL 81-99 [facility] Work Phone: Hematocrit Auto (Bld) [Volum e fraction]on 04-08-2021 Hematocrit (Bld) [Volume fraction] 36.9 % 37-47 [facility] Work Phone: Ketones Test strip Ql (U)on 04-08-2021 Ketones Ql (U) Negative Negative [facility] Work Phone: Laboratory - Chemistry and C hemistry - challengeon 04-08-2021 CO2 [Moles/Vol] 26.0 mmol/L 21.0-32.0 [facility] Work Phone: Urea nitrogen/Creatinine [Mass ratio] 22.3 mg/mg 10-20 [facility] Work Phone: Laboratory - Hematology and Cell countson 04-08-2021 Basophils/100 WBC (Unsp spec) 0.6 % 0-1 [facility] Work Phone: Erythrocyte distribution width (RBC) [Entitic vol] 45.0 fL 35.1-43.9 [facility] Work Phone: Erythrocyte distribution width (RBC) [Ratio] 12.5 % 11.6-14.6 [facility] Work Phone: Immature granulocytes/100 WBC (Bld) 0.200 % 0.0-0.9 [facility] Work Phone: Comment on above: IG% - Immature Granu locytes (promyelocytes, myelocytes and metamyelocytes) > 1% indicates that a LEFT SHIFT is Present. MCH (RBC) [Entitic mass] 33.2 pg 27.0-32.0 [facility] Work Phone: Neutrophils/100 WBC (Bld) 55.4 % 47-70 [facility] Work Phone: Nucleated RBC/100 WBC (Bld) [Ratio] 0 % 0-5 [facility] Work Phone: MCHC Auto (RBC) [Mass/Vol]on 04-08-2021 MCHC (RBC) [Mass/Vol] 33.9 g/dL 32-36 [facility] Work Phone: Mucus LM Ql (Urine sed)on Mucus Ql (Urine sed) RARE /hpf [facility] Work Phone: Nitrite Test strip Ql (U)on 04-08-2021 Nitrite Ql (U) Negative Negative [facility] Work Phone: No Panel Informationon 04-08 Estimated Creatinine Clearance Calc 104.20 ml/min [facility] Work Phone: Estimated GFR (MDRD) Amer 122 mL/min >60 [facility] Work Phone: Comment on above: GFR Calc Estimated GFR (MDRD) Non-Af Amer 101 mL/min >60 [facility] Work Phone: Comment on above: Non- GFR Calc Platelets bldon 04-08-2021 Platelets (Bld) [#/Vol] 172 10*3/uL 150-450 [facility] Work Phone: Protein Test strip Ql (U)on 04-08-2021 Protein Ql (U) Negative Negative [facility] Work Phone: Serum or plasma calcium greg urement (mass/volume)on 04-08-2021 Calcium [Mass/Vol] 8.9 mg/dL 8.5-10.1 [facility] Work Phone: Serum or plasma creatinine m easurement (mass/volume)on 04-08-2021 Creatinine [Mass/Vol] 0.67 mg/dL 0.55-1.02 [facility] Work Phone: Comment on above: The validity of the calculated GFR & GFRAA in patients over 70 years has not been determined. Clinical correlation is essential. Serum or plasma urea nitroge n measurement (mass/volume)on 04-08-2021 Urea nitrogen [Mass/Vol] 15 mg/dL 7-18 [facility] Work Phone: Squamous epithelial cells de tection in urine sediment by light microscopyon 04-08-2021 Epithelial cells.squamous LM Ql (Urine sed) 0 SEEN /hpf [facility] Work Phone: Thin prep Papanicolaou smear with manual screeningon 04-08-2021 Thin prep Papanicolaou smear with manual screening 6 5-15 [facility] Work Phone: Urine blood detectionon 12-3 RBC Ql (U) 10 /ul Negative [facility] Work Phone: RBC Ql (U) 0 SEEN /hpf [facility] Work Phone: Urine clarityon 04-08-2021 Clarity (U) Sl. Cloudy Clear [facility] Work Phone: Urine color determinationon 04-08-2021 Color (U) Yellow Yellow [facility] Work Phone: Urine glucose detectionon Glucose Ql (U) Normal mg/dl Normal [facility] Work Phone: Urine leukocyte esterase det ection by dipstickon 04-08-2021 Leukocyte esterase Test strip Ql (U) Negative Negative [facility] Work Phone: Urine pHon 04-08-2021 pH (U) 6.5 [pH] [facility] Work Phone: Urine sediment bacteria coun t by microscopy (number/high power field)on 04-08-2021 Bacteria LM.HPF (Urine sed) [#/Area] RARE /hpf None Seen [facility] Work Phone: Urine specific gravity measu rementon 04-08-2021 Specific gravity (U) [Rel density] 1.010 [facility] Work Phone: Urobilinogen Auto test strip Ql (U)on 04-08-2021 Urobilinogen Ql (U) Normal mg/dl Normal [facility] Work Phone: LABORATORYOrdered By: Rosetta Rojo on 04-07-2021 Appearance (U) Clear (04/07/21 7:53 PM) Invalid Interpretation Code Clear AO Auto Urine SS Basophil, Absolute 0.10 103/mcL Invalid Interpretation Code 0.00 - 0.19 10^3/mcL AO Auto Heme SS Basophils/100 WBC (Bld) 0.9 % Invalid Interpretation Code 0.0 - 2.5 % AO Auto Heme SS Bilirubin Ql (U) Negative (04/07/21 7:53 PM) Invalid Interpretation Code Negative AO Auto Urine SS Color (U) Yellow (04/07/21 7:53 PM) Invalid Interpretation Code AO Auto Urine SS Eosinophil, Absolute 0.30 103/mcL Invalid Interpretation Code 0.00 - 0.40 10^3/mcL AO Auto Heme SS Eosinophils/100 WBC (Bld) 3.2 % Invalid Interpretation Code 0.0 - 7.0 % AO Auto Heme SS Erythrocyte distribution width (RBC) [Ratio] 13.6 % Invalid Interpretation Code 11.5 - 14.5 % AO Auto Heme SS Glucose Test strip (U) [Mass/Vol] Negative Invalid Interpretation Code Negativemg/d L AO Auto Urine SS HCG ( test) Ql Negative (04/07/21 7:53 PM) Invalid Interpretation Code AO Manual Urine SS Hematocrit (Bld) [Volume fraction] 35.6 % Invalid Interpretation Code 37.0 - 47.0 % AO Auto Heme SS Hemoglobin (Bld) [Mass/Vol] 12.1 G/dL Invalid Interpretation Code 12.0 - 16.0 G/dL AO Auto Heme SS Hemoglobin Auto test strip (U) [Mass/Vol] Trace *ABN* (04/07/21 7:53 PM) Invalid Interpretation Code Negative AO Auto Urine SS Ketones Ql (U) Trace mg/dL Invalid Interpretation Code Negativemg/d L AO Auto Urine SS Lymphocyte, Absolute 2.20 103/mcL Invalid Interpretation Code 0.77 - 3.85 10^3/mcL AO Auto Heme SS Lymphocytes/100 WBC (Bld) 24.3 % Invalid Interpretation Code 10.0 - 50.0 % AO Auto Heme SS MCH (RBC) [Entitic mass] 33.5 pg Invalid Interpretation Code 27.0 - 31.2 pg AO Auto Heme SS MCHC (RBC) [Mass/Vol] 33.8 G/dL Invalid Interpretation Code 33.0 - 37.0 G/dL AO Auto Heme SS MCV (RBC) [Entitic vol] 99.1 fL Invalid Interpretation Code 80.0 - 94.0 fL AO Auto Heme SS Monocyte, Absolute 0.50 103/mcL Invalid Interpretation Code 0.15 - 1.00 10^3/mcL AO Auto Heme SS Monocytes/100 WBC (Bld) 5.1 % Invalid Interpretation Code 1.7 - 13.0 % AO Auto Heme SS Neutrophil, Absolute 6.10 103/mcL Invalid Interpretation Code 2.85 - 6.16 10^3/mcL AO Auto Heme SS Neutrophils/100 WBC (Bld) 66.5 % Invalid Interpretation Code 37.0 - 80.0 % AO Auto Heme SS Platelet mean volume (Bld) [Entitic vol] 9.9 fL Invalid Interpretation Code 7.4 - 10.4 fL AO Auto Heme SS Platelets (Bld) [#/Vol] 165 103/mcL Invalid Interpretation Code 130 - 400 10^3/mcL AO Auto Heme SS test (u) int Not detected Invalid Interpretation Code AO Manual Urine SS RBC (Bld) [#/Vol] 3.60 106/mcL Invalid Interpretation Code 4.20 - 5.40 10^6/mcL AO Auto Heme SS UA Leuk Est Negative (04/07/21 7:53 PM) Invalid Interpretation Code Negative AO Auto Urine SS UA Nitrite Negative (04/07/21 7:53 PM) Invalid Interpretation Code Negative AO Auto Urine SS UA pH 5.5 (04/07/21 7:53 PM) Invalid Interpretation Code 5.0 - 8.0 AO Auto Urine SS UA Protein Negative Invalid Interpretation Code Negativemg/d L AO Auto Urine SS UA Spec Grav >=1.030 *ABN* (04/07/21 7:53 PM) Invalid Interpretation Code 1.015-1.025 AO Auto Urine SS UA Specimen Type Clean Catch (04/07/21 7:53 PM) Invalid Interpretation Code AO Auto Urine SS UA Urobilinogen 0.2 E.U./dL Invalid Interpretation Code 0.2-1.0E.U./ dL AO Auto Urine SS WBC (Bld) [#/Vol] 9.10 103/mcL Invalid Interpretation Code 4.60 - 10.80 10^3/mcL AO Auto Heme SS LABORATORYOrdered By: Yazmin Faith on 04-07-2021 Calcium [Mass/Vol] 8.4 mg/dL Invalid Interpretation Code 8.4 - 10.2 mg/dL AO ADM SS Chloride [Moles/Vol] 106 mmol/L Invalid Interpretation Code 98 - 107 mmol/L AO ADM SS CO2 [Moles/Vol] 27 mmol/L Invalid Interpretation Code 22 - 29 mmol/L AO ADM SS Creatinine [Mass/Vol] 0.75 mg/dL Invalid Interpretation Code 0.55 - 1.02 mg/dL AO ADM SS Electrolyte Balance 8.0 mEq/L Invalid Interpretation Code AO ADM SS Glucose [Mass/Vol] 99 mg/dL Invalid Interpretation Code 70 - 105 mg/dL AO ADM SS Potassium [Moles/Vol] 3.3 mmol/L Invalid Interpretation Code 3.5 - 5.1 mmol/L AO ADM SS Sodium [Moles/Vol] 141 mmol/L Invalid Interpretation Code 136 - 145 mmol/L AO ADM SS Urea nitrogen [Mass/Vol] 16 mg/dL Invalid Interpretation Code 7 - 18 mg/dL AO ADM SS Urea nitrogen/Creatinine [Mass ratio] 21 ratio Invalid Interpretation Code 7 - 27 ratio AO ADM SS LABORATORYOrdered By: SYSTEM SYSTEM on 04-07-2021 GFR 102 ml/min/1.73sqm Invalid Interpretation Code AO Chemistry S GFR Non- 84 ml/min/1.73sqm Invalid Interpretation Code AO Chemistry S Basophil percentageon 2020 Chloride [Moles/Vol] 112 mmol/L 98-107 [facility] Work Phone: Glucose [Mass/Vol] 120 mg/dL 74-106 [facility] Work Phone: Comment on above: Fasting Glucose resu lt from 100 to 125 mg/dL suggests IMPAIRED HOMEOSTASIS per A.D.A. criteria.Please note revised GLUCOSE reference range effective 2017. Potassium [Moles/Vol] 3.8 mmol/L 3.5-5.1 [facility] Work Phone: Sodium [Moles/Vol] 142 mmol/L 136-145 [facility] Work Phone: Laboratory - Chemistry and C hemistry - challengeon 03-30-2021 CO2 [Moles/Vol] 27.0 mmol/L 21.0-32.0 [facility] Work Phone: Urea nitrogen/Creatinine [Mass ratio] 19.0 mg/mg 10-20 [facility] Work Phone: No Panel Informationon 03-30 Estimated GFR (MDRD) Amer 120 mL/min >60 [facility] Work Phone: Comment on above: GFR Calc Estimated GFR (MDRD) Non-Af Amer 99 mL/min >60 [facility] Work Phone: Comment on above: Non- GFR Calc Serum or plasma calcium greg urement (mass/volume)on 03-30-2021 Calcium [Mass/Vol] 9.0 mg/dL 8.5-10.1 [facility] Work Phone: Serum or plasma creatinine m easurement (mass/volume)on 03-30-2021 Creatinine [Mass/Vol] 0.68 mg/dL 0.55-1.02 [facility] Work Phone: Comment on above: The validity of the calculated GFR & GFRAA in patients over 70 years has not been determined. Clinical correlation is essential. Serum or plasma urea nitroge n measurement (mass/volume)on 03-30-2021 Urea nitrogen [Mass/Vol] 13 mg/dL 7-18 [facility] Work Phone: Thin prep Papanicolaou smear with manual screeningon 03-30-2021 Thin prep Papanicolaou smear with manual screening 3 5-15 [facility] Work Phone: LABORATORYOrdered By: Rosetta Rojo on 03-08-2021 Group A Strep PCR Int Negative for Streptococcus pyogenes by PCR. Negative test results do not rule out other possible infections besides those caused by Group A Streptococcus. False Negatives may be obtained in the presence of NYQUIL (0.5% V/V)The [employer] Group A Strep Assay is a real-time polymerase chain reaction (PCR) based qualitative in vitro diagnostic test for the direct detection of Streptococcus pyogenes (Group A Beta hemolytic Streptococcus) in throat swab specimens from patients with signs and symptoms of pharyngitis.The [employer] Group A Strep Assay can be used as an aid in the diagnosis of Group A Streptococcal pharyngitis. The assay is not intended to monitor treatment for Group A Streptococcus infections. Invalid Interpretation Code AO Auto Urine SS S. pyogenes DNA KAROLYN+probe Ql (Throat) Negative (03/08/21 5:20 PM) Invalid Interpretation Code Negative AO Auto Urine SS LABORATORYOrdered By: Pura Molina on 02-08-2021 Albumin BCP dye [Mass/Vol] 3.7 G/dL Invalid Interpretation Code 3.5 - 5.0 G/dL AO ADM SS Albumin/Globulin [Mass ratio] 0.9 {ratio} Invalid Interpretation Code 1.1 - 2.5 ratio AO ADM SS ALP [Catalytic activity/Vol] 146 U/L Invalid Interpretation Code 40 - 135 U/L AO ADM SS ALT With P-5'-P [Catalytic activity/Vol] 22 U/L Invalid Interpretation Code 14 - 59 U/L AO ADM SS AST With P-5'-P [Catalytic activity/Vol] 10 U/L Invalid Interpretation Code 10 - 40 U/L AO ADM SS Basophil, Absolute 0.00 103/mcL Invalid Interpretation Code 0.00 - 0.19 10^3/mcL AO Auto Heme SS Basophils/100 WBC (Bld) 0.7 % Invalid Interpretation Code 0.0 - 2.5 % AO Auto Heme SS Bilirubin [Mass/Vol] 0.1 mg/dL Invalid Interpretation Code 0.2 - 1.0 mg/dL AO ADM SS Calcium [Mass/Vol] 8.7 mg/dL Invalid Interpretation Code 8.4 - 10.2 mg/dL AO ADM SS Chloride [Moles/Vol] 106 mmol/L Invalid Interpretation Code 98 - 107 mmol/L AO ADM SS CO2 [Moles/Vol] 25 mmol/L Invalid Interpretation Code 22 - 29 mmol/L AO ADM SS Creatinine [Mass/Vol] 0.76 mg/dL Invalid Interpretation Code 0.55 - 1.02 mg/dL AO ADM SS Electrolyte Balance 10.0 mEq/L Invalid Interpretation Code AO ADM SS Eosinophil, Absolute 0.20 103/mcL Invalid Interpretation Code 0.00 - 0.40 10^3/mcL AO Auto Heme SS Eosinophils/100 WBC (Bld) 4.1 % Invalid Interpretation Code 0.0 - 7.0 % AO Auto Heme SS Erythrocyte distribution width (RBC) [Ratio] 13.4 % Invalid Interpretation Code 11.5 - 14.5 % AO Auto Heme SS Globulin 3.9 G/dL Invalid Interpretation Code AO ADM SS Glucose [Mass/Vol] 111 mg/dL Invalid Interpretation Code 70 - 105 mg/dL AO ADM SS Hematocrit (Bld) [Volume fraction] 39.5 % Invalid Interpretation Code 37.0 - 47.0 % AO Auto Heme SS Hemoglobin (Bld) [Mass/Vol] 13.3 G/dL Invalid Interpretation Code 12.0 - 16.0 G/dL AO Auto Heme SS Lipase [Catalytic activity/Vol] 109 U/L Invalid Interpretation Code 73 - 393 U/L AO ADM SS Lymphocyte, Absolute 1.50 103/mcL Invalid Interpretation Code 0.77 - 3.85 10^3/mcL AO Auto Heme SS Lymphocytes/100 WBC (Bld) 32.4 % Invalid Interpretation Code 10.0 - 50.0 % AO Auto Heme SS MCH (RBC) [Entitic mass] 34.0 pg Invalid Interpretation Code 27.0 - 31.2 pg AO Auto Heme SS MCHC (RBC) [Mass/Vol] 33.8 G/dL Invalid Interpretation Code 33.0 - 37.0 G/dL AO Auto Heme SS MCV (RBC) [Entitic vol] 100.7 fL Invalid Interpretation Code 80.0 - 94.0 fL AO Auto Heme SS Monocyte, Absolute 0.30 103/mcL Invalid Interpretation Code 0.15 - 1.00 10^3/mcL AO Auto Heme SS Monocytes/100 WBC (Bld) 5.6 % Invalid Interpretation Code 1.7 - 13.0 % AO Auto Heme SS Neutrophil, Absolute 2.60 103/mcL Invalid Interpretation Code 2.85 - 6.16 10^3/mcL AO Auto Heme SS Neutrophils/100 WBC (Bld) 57.2 % Invalid Interpretation Code 37.0 - 80.0 % AO Auto Heme SS Platelet mean volume (Bld) [Entitic vol] 9.2 fL Invalid Interpretation Code 7.4 - 10.4 fL AO Auto Heme SS Platelets (Bld) [#/Vol] 175 103/mcL Invalid Interpretation Code 130 - 400 10^3/mcL AO Auto Heme SS Potassium [Moles/Vol] 3.7 mmol/L Invalid Interpretation Code 3.5 - 5.1 mmol/L AO ADM SS Protein [Mass/Vol] 7.6 G/dL Invalid Interpretation Code 6.4 - 8.2 G/dL AO ADM SS RBC (Bld) [#/Vol] 3.92 106/mcL Invalid Interpretation Code 4.20 - 5.40 10^6/mcL AO Auto Heme SS Sodium [Moles/Vol] 141 mmol/L Invalid Interpretation Code 136 - 145 mmol/L AO ADM SS Urea nitrogen [Mass/Vol] 12 mg/dL Invalid Interpretation Code 7 - 18 mg/dL AO ADM SS Urea nitrogen/Creatinine [Mass ratio] 16 ratio Invalid Interpretation Code 7 - 27 ratio AO ADM SS WBC (Bld) [#/Vol] 4.60 103/mcL Invalid Interpretation Code 4.60 - 10.80 10^3/mcL AO Auto Heme SS Appearance (U) Slightly Cloudy *ABN* (02/08/21 8:23 AM) Invalid Interpretation Code Clear AO Auto Urine SS Bacteria LM.HPF (Urine sed) [#/Area] 2 /[HPF] Invalid Interpretation Code AO Auto Urine SS Bilirubin Ql (U) Negative (02/08/21 8:23 AM) Invalid Interpretation Code Negative AO Auto Urine SS Color (U) Yellow (02/08/21 8:23 AM) Invalid Interpretation Code AO Auto Urine SS Glucose Test strip (U) [Mass/Vol] Negative Invalid Interpretation Code Negativemg/d L AO Auto Urine SS HCG ( test) Ql Negative (02/08/21 8:23 AM) Invalid Interpretation Code AO Manual Urine SS Hemoglobin Auto test strip (U) [Mass/Vol] Small *ABN* (02/08/21 8:23 AM) Invalid Interpretation Code Negative AO Auto Urine SS Ketones Ql (U) Negative Invalid Interpretation Code Negativemg/d L AO Auto Urine SS test (u) int Not detected Invalid Interpretation Code AO Manual Urine SS UA Leuk Est Negative (02/08/21 8:23 AM) Invalid Interpretation Code Negative AO Auto Urine SS UA Nitrite Negative (02/08/21 8:23 AM) Invalid Interpretation Code Negative AO Auto Urine SS UA pH 5.5 (02/08/21 8:23 AM) Invalid Interpretation Code 5.0 - 8.0 AO Auto Urine SS UA Protein Negative Invalid Interpretation Code Negativemg/d L AO Auto Urine SS UA RBC 0-5 /HPF Invalid Interpretation Code None Seen/HPF AO Auto Urine SS UA Spec Grav >=1.030 *ABN* (02/08/21 8:23 AM) Invalid Interpretation Code 1.015-1.025 AO Auto Urine SS UA Specimen Type Clean Catch (02/08/21 8:23 AM) Invalid Interpretation Code AO Auto Urine SS UA Squam Epithelial 10-15 /HPF Invalid Interpretation Code None Seen/HPF AO Auto Urine SS UA Urobilinogen 0.2 E.U./dL Invalid Interpretation Code 0.2-1.0E.U./ dL AO Auto Urine SS WBC LM.HPF (Urine sed) [#/Area] 0-5 /HPF Invalid Interpretation Code None Seen/HPF AO Auto Urine SS LABORATORYOrdered By: SYSTEM SYSTEM on 02-08-2021 GFR 100 ml/min/1.73sqm Invalid Interpretation Code AO Chemistry S GFR Non- 83 ml/min/1.73sqm Invalid Interpretation Code AO Chemistry S LABORATORYOrdered By: Gibran Doran on 01-27-2021 Albumin BCP dye [Mass/Vol] 3.8 G/dL Invalid Interpretation Code 3.5 - 5.0 G/dL AO ADM SS Albumin/Globulin [Mass ratio] 1.1 {ratio} Invalid Interpretation Code 1.1 - 2.5 ratio AO ADM SS ALP [Catalytic activity/Vol] 154 U/L Invalid Interpretation Code 40 - 135 U/L AO ADM SS ALT With P-5'-P [Catalytic activity/Vol] 32 U/L Invalid Interpretation Code 14 - 59 U/L AO ADM SS AST With P-5'-P [Catalytic activity/Vol] 24 U/L Invalid Interpretation Code 10 - 40 U/L AO ADM SS Bilirubin [Mass/Vol] 0.3 mg/dL Invalid Interpretation Code 0.2 - 1.0 mg/dL AO ADM SS Calcium [Mass/Vol] 8.7 mg/dL Invalid Interpretation Code 8.4 - 10.2 mg/dL AO ADM SS Chloride [Moles/Vol] 104 mmol/L Invalid Interpretation Code 98 - 107 mmol/L AO ADM SS CO2 [Moles/Vol] 30 mmol/L Invalid Interpretation Code 22 - 29 mmol/L AO ADM SS Creatinine [Mass/Vol] 0.74 mg/dL Invalid Interpretation Code 0.55 - 1.02 mg/dL AO ADM SS Electrolyte Balance 10.0 mEq/L Invalid Interpretation Code AO ADM SS Globulin 3.5 G/dL Invalid Interpretation Code AO ADM SS Glucose [Mass/Vol] 107 mg/dL Invalid Interpretation Code 70 - 105 mg/dL AO ADM SS Lipase [Catalytic activity/Vol] 227 U/L Invalid Interpretation Code 73 - 393 U/L AO ADM SS Potassium [Moles/Vol] 3.1 mmol/L Invalid Interpretation Code 3.5 - 5.1 mmol/L AO ADM SS Protein [Mass/Vol] 7.3 G/dL Invalid Interpretation Code 6.4 - 8.2 G/dL AO ADM SS Sodium [Moles/Vol] 144 mmol/L Invalid Interpretation Code 136 - 145 mmol/L AO ADM SS Urea nitrogen [Mass/Vol] 5 mg/dL Invalid Interpretation Code 7 - 18 mg/dL AO ADM SS Urea nitrogen/Creatinine [Mass ratio] 7 ratio Invalid Interpretation Code 7 - 27 ratio AO ADM SS LABORATORYOrdered By: Jatinder Gotti on 01-27-2021 Appearance (U) Clear (01/27/21 10:55 AM) Invalid Interpretation Code Clear AO Auto Urine SS Bilirubin Ql (U) Negative (01/27/21 10:55 AM) Invalid Interpretation Code Negative AO Auto Urine SS Color (U) Yellow (01/27/21 10:55 AM) Invalid Interpretation Code AO Auto Urine SS Glucose Test strip (U) [Mass/Vol] Negative Invalid Interpretation Code Negativemg/d L AO Auto Urine SS HCG ( test) Ql Negative (01/27/21 10:55 AM) Invalid Interpretation Code AO Manual Urine SS Hemoglobin Auto test strip (U) [Mass/Vol] Trace *ABN* (01/27/21 10:55 AM) Invalid Interpretation Code Negative AO Auto Urine SS Ketones Ql (U) Negative Invalid Interpretation Code Negativemg/d L AO Auto Urine SS test (u) int Not detected Invalid Interpretation Code AO Manual Urine SS UA Leuk Est Negative (01/27/21 10:55 AM) Invalid Interpretation Code Negative AO Auto Urine SS UA Nitrite Negative (01/27/21 10:55 AM) Invalid Interpretation Code Negative AO Auto Urine SS UA pH 6.0 (01/27/21 10:55 AM) Invalid Interpretation Code 5.0 - 8.0 AO Auto Urine SS UA Protein Negative Invalid Interpretation Code Negativemg/d L AO Auto Urine SS UA Spec Grav 1.020 (01/27/21 10:55 AM) Invalid Interpretation Code 1.015-1.025 AO Auto Urine SS UA Specimen Type Clean Catch (01/27/21 10:55 AM) Invalid Interpretation Code AO Auto Urine SS UA Urobilinogen 0.2 E.U./dL Invalid Interpretation Code 0.2-1.0E.U./ dL AO Auto Urine SS LABORATORYOrdered By: Pura Molina on 01-27-2021 Basophil, Absolute 0.00 103/mcL Invalid Interpretation Code 0.00 - 0.19 10^3/mcL AO Auto Heme SS Basophils/100 WBC (Bld) 0.2 % Invalid Interpretation Code 0.0 - 2.5 % AO Auto Heme SS Eosinophil, Absolute 0.20 103/mcL Invalid Interpretation Code 0.00 - 0.40 10^3/mcL AO Auto Heme SS Eosinophils/100 WBC (Bld) 2.1 % Invalid Interpretation Code 0.0 - 7.0 % AO Auto Heme SS Erythrocyte distribution width (RBC) [Ratio] 13.5 % Invalid Interpretation Code 11.5 - 14.5 % AO Auto Heme SS Hematocrit (Bld) [Volume fraction] 38.9 % Invalid Interpretation Code 37.0 - 47.0 % AO Auto Heme SS Hemoglobin (Bld) [Mass/Vol] 13.2 G/dL Invalid Interpretation Code 12.0 - 16.0 G/dL AO Auto Heme SS Lymphocyte, Absolute 1.90 103/mcL Invalid Interpretation Code 0.77 - 3.85 10^3/mcL AO Auto Heme SS Lymphocytes/100 WBC (Bld) 24.9 % Invalid Interpretation Code 10.0 - 50.0 % AO Auto Heme SS MCH (RBC) [Entitic mass] 34.3 pg Invalid Interpretation Code 27.0 - 31.2 pg AO Auto Heme SS MCHC (RBC) [Mass/Vol] 34.0 G/dL Invalid Interpretation Code 33.0 - 37.0 G/dL AO Auto Heme SS MCV (RBC) [Entitic vol] 101.0 fL Invalid Interpretation Code 80.0 - 94.0 fL AO Auto Heme SS Monocyte, Absolute 0.50 103/mcL Invalid Interpretation Code 0.15 - 1.00 10^3/mcL AO Auto Heme SS Monocytes/100 WBC (Bld) 6.7 % Invalid Interpretation Code 1.7 - 13.0 % AO Auto Heme SS Neutrophil, Absolute 4.90 103/mcL Invalid Interpretation Code 2.85 - 6.16 10^3/mcL AO Auto Heme SS Neutrophils/100 WBC (Bld) 66.1 % Invalid Interpretation Code 37.0 - 80.0 % AO Auto Heme SS Platelet mean volume (Bld) [Entitic vol] 10.0 fL Invalid Interpretation Code 7.4 - 10.4 fL AO Auto Heme SS Platelets (Bld) [#/Vol] 181 103/mcL Invalid Interpretation Code 130 - 400 10^3/mcL AO Auto Heme SS RBC (Bld) [#/Vol] 3.85 106/mcL Invalid Interpretation Code 4.20 - 5.40 10^6/mcL AO Auto Heme SS WBC (Bld) [#/Vol] 7.40 103/mcL Invalid Interpretation Code 4.60 - 10.80 10^3/mcL AO Auto Heme SS LABORATORYOrdered By: SYSTEM SYSTEM on 01-27-2021 GFR 103 ml/min/1.73sqm Invalid Interpretation Code AO Chemistry S GFR Non- 85 ml/min/1.73sqm Invalid Interpretation Code AO Chemistry S LABORATORYOrdered By: Pamela Jean on 01-23-2021 Albumin BCP dye [Mass/Vol] 3.7 G/dL Invalid Interpretation Code 3.5 - 5.0 G/dL AO ADM SS Albumin/Globulin [Mass ratio] 1.0 {ratio} Invalid Interpretation Code 1.1 - 2.5 ratio AO ADM SS ALP [Catalytic activity/Vol] 152 U/L Invalid Interpretation Code 40 - 135 U/L AO ADM SS ALT With P-5'-P [Catalytic activity/Vol] 19 U/L Invalid Interpretation Code 14 - 59 U/L AO ADM SS Appearance (U) Slightly Cloudy *ABN* (01/23/21 1:32 AM) Invalid Interpretation Code Clear AO Auto Urine SS AST With P-5'-P [Catalytic activity/Vol] 11 U/L Invalid Interpretation Code 10 - 40 U/L AO ADM SS Bacteria LM.HPF (Urine sed) [#/Area] 4 /[HPF] Invalid Interpretation Code AO Auto Urine SS Basophil, Absolute 0.10 103/mcL Invalid Interpretation Code 0.00 - 0.19 10^3/mcL AO Auto Heme SS Basophils/100 WBC (Bld) 0.8 % Invalid Interpretation Code 0.0 - 2.5 % AO Auto Heme SS Bilirubin [Mass/Vol] 0.4 mg/dL Invalid Interpretation Code 0.2 - 1.0 mg/dL AO ADM SS Bilirubin Ql (U) Small *ABN* (01/23/21 1:32 AM) Invalid Interpretation Code Negative AO Auto Urine SS Calcium [Mass/Vol] 8.7 mg/dL Invalid Interpretation Code 8.4 - 10.2 mg/dL AO ADM SS Chloride [Moles/Vol] 108 mmol/L Invalid Interpretation Code 98 - 107 mmol/L AO ADM SS CO2 [Moles/Vol] 28 mmol/L Invalid Interpretation Code 22 - 29 mmol/L AO ADM SS Color (U) Dark yellow Invalid Interpretation Code AO Auto Urine SS Creatinine [Mass/Vol] 0.76 mg/dL Invalid Interpretation Code 0.55 - 1.02 mg/dL AO ADM SS Electrolyte Balance 12.0 mEq/L Invalid Interpretation Code AO ADM SS Eosinophil, Absolute 0.10 103/mcL Invalid Interpretation Code 0.00 - 0.40 10^3/mcL AO Auto Heme SS Eosinophils/100 WBC (Bld) 1.4 % Invalid Interpretation Code 0.0 - 7.0 % AO Auto Heme SS Erythrocyte distribution width (RBC) [Ratio] 13.7 % Invalid Interpretation Code 11.5 - 14.5 % AO Auto Heme SS Globulin 3.7 G/dL Invalid Interpretation Code AO ADM SS Glucose [Mass/Vol] 115 mg/dL Invalid Interpretation Code 70 - 105 mg/dL AO ADM SS Glucose Test strip (U) [Mass/Vol] Negative Invalid Interpretation Code Negativemg/d L AO Auto Urine SS Hematocrit (Bld) [Volume fraction] 37.7 % Invalid Interpretation Code 37.0 - 47.0 % AO Auto Heme SS Hemoglobin (Bld) [Mass/Vol] 12.8 G/dL Invalid Interpretation Code 12.0 - 16.0 G/dL AO Auto Heme SS Hemoglobin Auto test strip (U) [Mass/Vol] Moderate *ABN* (01/23/21 1:32 AM) Invalid Interpretation Code Negative AO Auto Urine SS Ketones Ql (U) Trace mg/dL Invalid Interpretation Code Negativemg/d L AO Auto Urine SS Lipase [Catalytic activity/Vol] 99 U/L Invalid Interpretation Code 73 - 393 U/L AO ADM SS Lymphocyte, Absolute 1.90 103/mcL Invalid Interpretation Code 0.77 - 3.85 10^3/mcL AO Auto Heme SS Lymphocytes/100 WBC (Bld) 27.2 % Invalid Interpretation Code 10.0 - 50.0 % AO Auto Heme SS MCH (RBC) [Entitic mass] 34.1 pg Invalid Interpretation Code 27.0 - 31.2 pg AO Auto Heme SS MCHC (RBC) [Mass/Vol] 33.8 G/dL Invalid Interpretation Code 33.0 - 37.0 G/dL AO Auto Heme SS MCV (RBC) [Entitic vol] 100.8 fL Invalid Interpretation Code 80.0 - 94.0 fL AO Auto Heme SS Monocyte, Absolute 0.50 103/mcL Invalid Interpretation Code 0.15 - 1.00 10^3/mcL AO Auto Heme SS Monocytes/100 WBC (Bld) 6.8 % Invalid Interpretation Code 1.7 - 13.0 % AO Auto Heme SS Neutrophil, Absolute 4.50 103/mcL Invalid Interpretation Code 2.85 - 6.16 10^3/mcL AO Auto Heme SS Neutrophils/100 WBC (Bld) 63.8 % Invalid Interpretation Code 37.0 - 80.0 % AO Auto Heme SS Platelet mean volume (Bld) [Entitic vol] 9.3 fL Invalid Interpretation Code 7.4 - 10.4 fL AO Auto Heme SS Platelets (Bld) [#/Vol] 191 103/mcL Invalid Interpretation Code 130 - 400 10^3/mcL AO Auto Heme SS Potassium [Moles/Vol] 3.7 mmol/L Invalid Interpretation Code 3.5 - 5.1 mmol/L AO ADM SS Protein [Mass/Vol] 7.4 G/dL Invalid Interpretation Code 6.4 - 8.2 G/dL AO ADM SS RBC (Bld) [#/Vol] 3.74 106/mcL Invalid Interpretation Code 4.20 - 5.40 10^6/mcL AO Auto Heme SS Sodium [Moles/Vol] 148 mmol/L Invalid Interpretation Code 136 - 145 mmol/L AO ADM SS UA Leuk Est Trace *ABN* (01/23/21 1:32 AM) Invalid Interpretation Code Negative AO Auto Urine SS UA Mucous 4+ /HPF Invalid Interpretation Code AO Auto Urine SS UA Nitrite Positive *ABN* (01/23/21 1:32 AM) Invalid Interpretation Code Negative AO Auto Urine SS UA pH 5.5 (01/23/21 1:32 AM) Invalid Interpretation Code 5.0 - 8.0 AO Auto Urine SS UA Protein Trace mg/dL Invalid Interpretation Code Negativemg/d L AO Auto Urine SS UA RBC 10-15 /HPF Invalid Interpretation Code None Seen/HPF AO Auto Urine SS UA Spec Grav >=1.030 *ABN* (01/23/21 1:32 AM) Invalid Interpretation Code 1.015-1.025 AO Auto Urine SS UA Specimen Type Catheter (01/23/21 1:32 AM) Invalid Interpretation Code AO Auto Urine SS UA Squam Epithelial LOADED /HPF Invalid Interpretation Code None Seen/HPF AO Auto Urine SS UA Urobilinogen 0.2 E.U./dL Invalid Interpretation Code 0.2-1.0E.U./ dL AO Auto Urine SS Urea nitrogen [Mass/Vol] 11 mg/dL Invalid Interpretation Code 7 - 18 mg/dL AO ADM SS Urea nitrogen/Creatinine [Mass ratio] 14 ratio Invalid Interpretation Code 7 - 27 ratio AO ADM SS WBC (Bld) [#/Vol] 7.10 103/mcL Invalid Interpretation Code 4.60 - 10.80 10^3/mcL AO Auto Heme SS WBC LM.HPF (Urine sed) [#/Area] 15-25 /HPF Invalid Interpretation Code None Seen/HPF AO Auto Urine SS LABORATORYOrdered By: SYSTEM SYSTEM on 01-23-2021 GFR 100 ml/min/1.73sqm Invalid Interpretation Code AO Chemistry S GFR Non- 83 ml/min/1.73sqm Invalid Interpretation Code AO Chemistry S CT ABDOMEN AND PELVIS W/O CO NTRAST [id number] 12-07-2017 CT ABDOMEN AND PELVIS W/O CONTRAST 12031 Performed at [facility] APPROVED BY: HARJEET HERNANDEZ MD EXAMINATION: CT ABDOMEN AND PELVIS WITHOUT IV CONTRAST CLINICAL HISTORY: Lump felt LEFT side of the abdomen during exam, area marked with BB. TECHNIQUE: Non-IV contrast imaging of the abdomen and pelvis was performed using standard technique, scanning from just above the dome of the diaphragm to the symphysis pubis. Unenhanced imaging is limited for the evaluation of some intra-abdominal and pelvic pathology. MQ: CTAPWO_3 Contrast: None CT Radiation dose: Integrated Dose-length product (DLP) for this visit = 646 mGy*cm. CT Dose Reduction Employed: Automated exposure control (AEC) was used. COMPARISON: 08/19/2017 RESULT: Abdomen / Pelvis: Liver: Unremarkable unenhanced appearance Biliary: No cholelithiasis or biliary dilation Spleen: No splenomegaly. Pancreas: Unremarkable. Adrenals: No mass. Kidneys: No calculus, hydronephrosis or finding to suggest a cyst or mass in the unenhanced kidney. GI Tract: No bowel dilation. Appendectomy. No diverticular disease. Lymph Nodes: No lymphadenopathy. Mesentery/peritoneum: No ascites. Retroperitoneum: No mass. Vasculature: Normal caliber aorta. Pelvis: No mass or ascites. Normal bladder wall thickness. Bones/Soft Tissues: No acute abnormality. Spinal stimulator in place. Orthopedic hardware in the lower lumbar spine. Lower thorax: Unremarkable. IMPRESSION: No acute abnormality Normal [facility] Carbamazepine, Freeon 2017 Carbamazepine, Free SEE BELOW Normal [facility] Comment on above: Result Comment: Carb amazepine, Free 1.6 1.6-2.4 ug/mL Reference ranges and high/low indicator flags are provided as general guidelines only. The treating physician must determine appropriate target levels/dosing based on the specific clinical situation. Performing Laboratory: [facility] [employer] [address] [place] [address] Performed By: #### C ARFX ####[place] [address] Levetiracetamon 11-28-2017 Levetiracetam [Mass/Vol] SEE BELOW Normal [facility] Comment on above: Result Comment: Leve tiracetam 15.2 12.0-46.0 ug/mL This test was developed and its performance characteristics determined by [facility]'s [facility] It has not been cleared or approved by the FDA. [facility] is regulated under CLIA as qualified to perform high-complexity testing. This test is used for clinical purposes. It should not be regarded as investigational or for research. Performing Laboratory: [facility] [employer] [address] [place] [id number] Performed By: #### G LMET #### [place] [address] CT HEAD W/O CONTRASTon 11-27 CT HEAD W/O CONTRAST Performed at [facility] APPROVED BY: MANNY HSIEH MD EXAMINATION: CT HEAD W/O CONTRAST CLINICAL HISTORY: Headache. TIA. TECHNIQUE: Serial axial images without IV contrast were obtained from the vertex to the foramen magnum. MQ: CTBWO_3 Contrast: None CT Dose-Length Product: 828.43 mGy*cm CT Dose Reduction Employed: No dose reduction techniques were required. COMPARISON: 11/26/2017 RESULT: Post-operative change: None. Acute change: No evidence of an acute infarct or other acute parenchymal process. Hemorrhage: No evidence of acute intracranial hemorrhage. Mass Lesion / Mass Effect: There is no evidence of an intracranial mass or extraaxial fluid collection. No significant mass effect. Chronic change: None apparent. Parenchyma: There is no significant volume loss. The brain parenchyma is otherwise within normal limits for age. Ventricles: The ventricles are within normal limits of size and configuration for age. Paranasal sinuses and skull base: The visualized paranasal sinuses are grossly clear. The skull base and imaged soft tissues are unremarkable. IMPRESSION: 1. There has been no significant change. No acute intracranial pathology. Normal [facility] Carbamazepine,Randomon 11-27 Carbamazepine,Random 6.2 mg/L Normal 4.0-12.0 [facility] Comment on above: Performed By: #### C ARBR #### [place] [address] Comprehensive Panelon 2017 ALP [Catalytic activity/Vol] 138 U/L High 46-116 [facility] Comment on above: Performed By: #### G LMET #### [facility] [address] [place], [place] [address] Bilirubin [Mass/Vol] 0.2 mg/dL Normal 0.2-1.0 [facility] Comment on above: Performed By: #### G LMET #### [facility] [address] [place], [place] [address] Protein [Mass/Vol] 7.2 g/dL Normal 6.4-8.2 [facility] Comment on above: Performed By: #### G LMET #### [facility] [address] [place], [place] [address] ALT [Catalytic activity/Vol] 15 U/L Normal 12-78 [facility] Comment on above: Performed By: #### G LMET #### [facility] [address] [place], [place] [address] Creatinine [Mass/Vol] 0.59 mg/dL Normal 0.51-0.95 [facility] Comment on above: Performed By: #### G LMET #### [facility] [address] [place], [place] [address] AST [Catalytic activity/Vol] 14 U/L Normal 9-37 [facility] Comment on above: Performed By: #### G LMET #### [facility] [address] [place], [place] [address] Albumin [Mass/Vol] 3.3 g/dL Low 3.4-5.0 [facility] Comment on above: Performed By: #### G LMET #### [facility] [address] [place], [place] [address] Anion gap [Moles/Vol] 10 mmol/L Normal 8-16 [facility] Comment on above: Performed By: #### G LMET #### [facility] [address] [place], [place] [address] Calcium [Mass/Vol] 8.3 mg/dL Low 8.5-10.1 [facility] Comment on above: Performed By: #### G LMET #### [facility] [address] [place], [place] [address] CO2 [Moles/Vol] 26 mmol/L Normal 21-32 [facility] Comment on above: Performed By: #### G LMET #### [facility] [address] [place], [place] [address] Glucose [Mass/Vol] 115 mg/dL High 70-99 [facility] Comment on above: Performed By: #### G LMET #### [facility] [address] [place], [place] [address] Urea nitrogen [Mass/Vol] 8 mg/dL Normal 7-18 [facility] Comment on above: Performed By: #### G LMET #### [facility] [address] [place], [place] [address] Chloride [Moles/Vol] 109 mmol/L High 98-107 [facility] Comment on above: Performed By: #### G LMET #### [facility] [address] [place], [place] [address] Potassium [Moles/Vol] 3.9 mmol/L Normal 3.5-5.1 [facility] Comment on above: Performed By: #### G LMET #### [facility] [address] [place] [address] Sodium [Moles/Vol] 141 mmol/L Normal 136-145 [facility] Comment on above: Performed By: #### G LMET #### [facility] [address] [place] [address] Glucose Meteron 11-27-2017 Glucose [Mass/Vol] 90 mg/dL Normal 70-99 [facility] Comment on above: Result Comment: ERIK DINH Performed By: #### G LMET #### [facility] [address] [place] [address] Hemogram/Diffon 11-27-2017 Abs Immature Grans 0.02 thou/cmm Normal 0.00-0.05 [facility] Comment on above: Performed By: #### G LMET #### [facility] [address] [place] [address] Abs. Baso 0.03 thou/cmm Normal 0.01-0.08 [facility] Comment on above: Performed By: #### G LMET #### [facility] [address] [place] [address] Abs. Schley 0.22 thou/cmm Low 0.27-0.70 [facility] Comment on above: Performed By: #### G LMET #### [facility] [address] [place] [address] Abs. Neut (ANC) 2.60 thou/cmm Normal 1.56-6.13 [facility] Comment on above: Performed By: #### G LMET #### [facility] [address] [place] [address] Basophils/100 WBC (Bld) 0.7 % Normal [facility] Comment on above: Performed By: #### G LMET #### [facility] [address] [place] [address] Eosinophils (Bld) [#/Vol] 0.23 thou/cmm Normal 0.00-0.31 [facility] Comment on above: Performed By: #### G LMET #### [facility] [address] [place], [place] [address] Eosinophils/100 WBC (Bld) 5.0 % Normal [facility] Comment on above: Performed By: #### G LMET #### [facility] [address] [place] [address] Erythrocyte distribution width (RBC) [Ratio] 12.4 % Normal 11.7-14.4 [facility] Comment on above: Performed By: #### G LMET #### [facility] [address] [place] [address] Hematocrit (Bld) [Volume fraction] 36.3 % Normal 34.1-44.9 [facility] Comment on above: Performed By: #### G LMET #### [facility] [address] [place] [address] Hemoglobin (Bld) [Mass/Vol] 11.8 g/dL Normal 11.2-15.7 [facility] Comment on above: Performed By: #### G LMET #### [place] [address] Immature Grans 0.40 % Normal [facility] Comment on above: Performed By: #### G LMET #### [place] [address] Lymphocytes (Bld) [#/Vol] 1.47 thou/cmm Normal 1.18-3.74 [facility] Comment on above: Performed By: #### G LMET #### [place] [address] Lymphocytes/100 WBC (Bld) 32.2 % Normal [facility] Comment on above: Performed By: #### G LMET #### [facility] [address] [place] [address] MCH (RBC) [Entitic mass] 32.5 pg High 25.6-32.2 [facility] Comment on above: Performed By: #### G LMET #### [place] [address] MCHC (RBC) [Mass/Vol] 32.5 % Normal 31.6-34.8 [facility] Comment on above: Performed By: #### G LMET #### [facility] [address] [place] [address] MCV (RBC) [Entitic vol] 100.0 fL High 79.4-94.8 [facility] Comment on above: Performed By: #### G LMET #### [facility] [address] [place] [address] Monocytes/100 WBC (Bld) 4.8 % Normal [facility] Comment on above: Performed By: #### G LMET #### [facility] [address] [place] [address] Platelet mean volume (Bld) [Entitic vol] 11.5 fL Normal 9.4-12.3 [facility] Comment on above: Performed By: #### G LMET #### [facility] [address] [place] [address] Platelets (Bld) [#/Vol] 176 thou/cmm Low 182-369 [facility] Comment on above: Performed By: #### G LMET #### [facility] [address] [place] [address] RBC (Bld) [#/Vol] 3.63 mil/cmm Low 3.93-5.22 [facility] Comment on above: Performed By: #### G LMET #### [facility] [address] [place] [address] RDW SD 45.5 fl Normal 36.4-46.3 [facility] Comment on above: Performed By: #### G LMET #### [facility] [address] [place] [address] Seg Neutrophil 56.9 % Normal [facility] Comment on above: Performed By: #### G LMET #### [facility] [address] [place] [address] WBC (Bld) [#/Vol] 4.57 thou/cmm Normal 3.98-10.04 [facility] Comment on above: Performed By: #### G LMET #### [facility] [address] [place] [address] Hgb A1con 11-27-2017 HbA1c (Bld) [Mass fraction] 5.1 % Normal 4.2-6.3 [facility] Comment on above: Result Comment: Meth od is National Glycohemoglobin Standardization Program (NGSP) compliant. Performed By: #### G LMET #### [facility] [address] [place], [place] [address] HbA1c (Bld) [Mass fraction] 100 mg/dl Normal [facility] Comment on above: Performed By: #### G LMET #### [facility] [address] [place], [place] [address] Lipid Profileon 11-27-2017 Cholesterol in HDL [Mass/Vol] 40 mg/dL Normal >40 [facility] Comment on above: Performed By: #### G LMET #### [address] [address] Cholesterol in LDL [Mass/Vol] 125 mg/dL Normal [facility] Comment on above: Result Comment: No C AD and with fewer than 2 CAD risk factors <160 mg/dL No CAD but with 2 or more CAD risk factors <130 mg/dL Definite CAD or other atherosclerotic disease <100 mg/dL Performed By: #### G LMET #### [facility] [address] [place], [place] [address] Cholesterol in LDL/Cholesterol in HDL [Mass ratio] 3.1 Normal 0.6-3.6 [facility] Comment on above: Result Comment: LDL, VLDL,LDL/HDL, Invalid if Triglyceride >400 Performed By: #### G LMET #### [facility] [address] [place], [place] [address] Cholesterol.total/[place] sterol in HDL [Mass ratio] 4.6 {ratio} Normal 1.8-5.3 [facility] Comment on above: Performed By: #### G LMET #### [facility] [address] [place], [place] [address] Cholesterol in VLDL [Mass/Vol] 20 mg/dL Normal <50 Desired [facility] Comment on above: Performed By: #### G LMET #### [facility] [address] [place], [place] [address] Triglyceride [Mass/Vol] 99 mg/dL Normal 0-149 [facility] Comment on above: Result Comment: < 20 0 Desirable Result invalid if not a fasting specimen. Performed By: #### G LMET #### [facility] [address] [place] [address] Cholesterol [Mass/Vol] 185 mg/dL Normal 0-199 [facility] Comment on above: Result Comment: <200 Desirable 200-240 Borderline >240 High Performed By: #### G LMET #### [facility] [address] [place] [id number] MDRD GFRon 11-27-2017 GFR/1.73 sq M predicted among non-blacks MDRD (S/P/Bld) [Vol rate/Area] mL/min/{1.73_m2} Normal >60mL/min/1. 73m2 [facility] Comment on above: Result Comment: If t he patient is , multiply the result by 1.210. Performed By: #### G FR #### [place] [address] Magnesium Bloodon 11-27-2017 Magnesium [Mass/Vol] 2.1 mg/dL Normal 1.6-2.6 [facility] Comment on above: Performed By: #### G LMET #### [place] [address] Prolactinon 11-27-2017 Prolactin 7.8 ng/mL Normal [facility] Comment on above: Result Comment: Nonp regnant 2.8 to 29.2 9.7 to 208.5 Postmenopausal 1.8 to 20.3 Males: 2.1 to 17.7 Performed By: #### G LMET #### [facility] [address] [place], [place] [address] TSH, 3rd generationon 2017 TSH, 3rd generation 2.230 uIU/mL Normal 0.358-3.740 [facility] Comment on above: Performed By: #### T SH3 #### [address] [address] Urine Drug Screenon 11-28-19 18 Urine THC Non-detected Normal Non-Detected [facility] Comment on above: Result Comment: Urin e Drug Cutoff Levels Urine Amphetamine 500 ng/mL Urine Barbiturate 200 ng/mL Urine Benzodiazepines 200 ng/mL Urine Cocaine 150 ng/mL Urine Phencyclidine (PCP) 25 ng/mL Urine Opiates 300 ng/mL Urine THC 50 ng/mL The results of these analytes are unconfirmed and reported qualitatively as detected or non-detected relative to the cutoff value. Detected results indicate the sample is likely to contain the analyte. Non-detected results indicate that either the sample does not contain the analyte or it is present in concentrations below the cutoff level. This drug screen should be used for medical diagnostic purposes only. Performed By: #### G LMET #### [place] [address] Urine Amphetamine Non-detected Normal Non-Detected [facility] Comment on above: Performed By: #### G LMET #### [place] [address] Urine Barbiturates Non-detected Normal Non-Detected [facility] Comment on above: Performed By: #### G LMET #### [place] [address] Urine Benzodiazepine Non-detected Normal Non-Detected [facility] Comment on above: Performed By: #### G LMET #### [place] [address] Urine Cocaine Metab Non-detected Normal Non-Detected [facility] Comment on above: Performed By: #### G LMET #### [place] [address] Urine Opiate Non-detected Normal Non-Detected [facility] Comment on above: Performed By: #### G LMET #### [place] [address] Urine PCP Non-detected Normal Non-Detected [facility] Comment on above: Performed By: #### G LMET #### [place] [address] Vitamin B12on 11-27-2017 Cobalamin (Vitamin B12) [Mass/Vol] 313 pg/mL Normal 193-986 [facility] Comment on above: Performed By: #### G LMET #### [facility] [address] [place] [address] [address] BRAIN ATTACKon 11-26-2017 CT BRAIN ATTACK Performed at [facility] APPROVED BY: Fly Torres MD EXAMINATION: CT BRAIN ATTACK CLINICAL HISTORY: Altered level of consciousness (LOC), unexplained. Right facial droop. Brain attack. TECHNIQUE: Routine CT of the brain without IV contrast. MQ: CTBA_4 CT Dose-Length Product (DLP): 884 mGy*cm CT Dose Reduction Employed: No dose reduction techniques were required. COMPARISON: No prior available. RESULT: Acute ischemic change: None. ASPECT Score = 10 Hemorrhage: No evidence of acute intracranial hemorrhage. ECASS Hemorrhagic Transformation Score = Not Applicable Mass Lesion / Mass Effect: There is no evidence of an intracranial mass or extraaxial fluid collection. No significant mass effect. Chronic change: None. Parenchyma: There is no significant volume loss. The brain parenchyma is otherwise within normal limits for age. Ventricles: Normal caliber and morphology. Other: The visualized calvarium, skull base, orbits and extracranial soft tissues are normal. IMPRESSION: No evidence of acute intracranial process. CRITICAL TEST/RESULTS: Notification initiated at 15:37. Communicated with Dr. Scarlett Vega on 11/26/2017 at 13:38. CR_1 Normal [facility] Comprehensive Panelon 2017 ALP [Catalytic activity/Vol] 130 U/L High 46-116 [facility] Comment on above: Performed By: #### P 14 #### [facility] [address] [place] [address] Protein [Mass/Vol] 7.0 g/dL Normal 6.4-8.2 [facility] Comment on above: Performed By: #### P 14 #### [facility] [address] [place] [address] Bilirubin [Mass/Vol] 0.2 mg/dL Normal 0.2-1.0 [facility] Comment on above: Performed By: #### P 14 #### [facility] [address] [place] [address] ALT [Catalytic activity/Vol] 16 U/L Normal 12-78 [facility] Comment on above: Performed By: #### P 14 #### [facility] [address] [place], [place] [address] AST [Catalytic activity/Vol] 13 U/L Normal 9-37 [facility] Comment on above: Performed By: #### P 14 #### [facility] [address] [place], [place] [address] Creatinine [Mass/Vol] 0.67 mg/dL Normal 0.51-0.95 [facility] Comment on above: Performed By: #### P 14 #### [facility] [address] [place], [place] [address] Albumin [Mass/Vol] 3.1 g/dL Low 3.4-5.0 [facility] Comment on above: Performed By: #### P 14 #### [facility] [address] [place], [place] [address] Glucose [Mass/Vol] 86 mg/dL Normal 70-99 [facility] Comment on above: Performed By: #### P 14 #### [facility] [address] [place], [place] [address] Urea nitrogen [Mass/Vol] 7 mg/dL Normal 7-18 [facility] Comment on above: Performed By: #### P 14 #### [facility] [address] [place], [place] [address] Anion gap [Moles/Vol] 9 mmol/L Normal 8-16 [facility] Comment on above: Performed By: #### P 14 #### [facility] [address] [place], [place] [address] Calcium [Mass/Vol] 8.2 mg/dL Low 8.5-10.1 [facility] Comment on above: Performed By: #### P 14 #### [facility] [address] [place], [place] [address] CO2 [Moles/Vol] 27 mmol/L Normal 21-32 [facility] Comment on above: Performed By: #### P 14 #### [facility] [address] [place], [place] [address] Chloride [Moles/Vol] 109 mmol/L High 98-107 [facility] Comment on above: Performed By: #### P 14 #### [facility] [address] [place] [address] Potassium [Moles/Vol] 3.5 mmol/L Normal 3.5-5.1 [facility] Comment on above: Performed By: #### P 14 #### [facility] [address] [place] [id number] Sodium [Moles/Vol] 141 mmol/L Normal 136-145 [facility] Comment on above: Performed By: #### P 14 #### [facility] [address] [place] [address] Hemogram/Diffon 11-26-2017 Abs Immature Grans 0.01 thou/cmm Normal 0.00-0.05 [facility] Comment on above: Performed By: #### C BCD1 #### [facility] [address] [place] [address] Abs. Baso 0.05 thou/cmm Normal 0.01-0.08 [facility] Comment on above: Performed By: #### C BCD1 #### [facility] [address] [place] [address] Abs. Schley 0.29 thou/cmm Normal 0.27-0.70 [facility] Comment on above: Performed By: #### C BCD1 #### [facility] [address] [place] [address] Abs. Neut (ANC) 3.25 thou/cmm Normal 1.56-6.13 [facility] Comment on above: Performed By: #### C BCD1 #### [facility] [address] [place] [address] Basophils/100 WBC (Bld) 0.9 % Normal [facility] Comment on above: Performed By: #### C BCD1 #### [facility] [address] [place] [address] Eosinophils (Bld) [#/Vol] 0.33 thou/cmm High 0.00-0.31 [facility] Comment on above: Performed By: #### C BCD1 #### [facility] [address] [place] [id number] Eosinophils/100 WBC (Bld) 5.7 % Normal [facility] Comment on above: Performed By: #### C BCD1 #### [facility] [address] [place] [address] Erythrocyte distribution width (RBC) [Ratio] 12.6 % Normal 11.7-14.4 [facility] Comment on above: Performed By: #### C BCD1 #### [facility] [address] [place] [address] Hematocrit (Bld) [Volume fraction] 34.5 % Normal 34.1-44.9 [facility] Comment on above: Performed By: #### C BCD1 #### [facility] [address] [place] [address] Hemoglobin (Bld) [Mass/Vol] 11.4 g/dL Normal 11.2-15.7 [facility] Comment on above: Performed By: #### C BCD1 #### [place] [address] Immature Grans 0.20 % Normal [facility] Comment on above: Performed By: #### C BCD1 #### [place] [address] Lymphocytes (Bld) [#/Vol] 1.84 thou/cmm Normal 1.18-3.74 [facility] Comment on above: Performed By: #### C BCD1 #### [place] [address] Lymphocytes/100 WBC (Bld) 31.9 % Normal [facility] Comment on above: Performed By: #### C BCD1 #### [facility] [address] [place] [address] MCH (RBC) [Entitic mass] 32.9 pg High 25.6-32.2 [facility] Comment on above: Performed By: #### C BCD1 #### [place] [address] MCHC (RBC) [Mass/Vol] 33.0 % Normal 31.6-34.8 [facility] Comment on above: Performed By: #### C BCD1 #### [facility] [address] [place] [address] MCV (RBC) [Entitic vol] 99.7 fL High 79.4-94.8 [facility] Comment on above: Performed By: #### C BCD1 #### [facility] [address] [place] [address] Monocytes/100 WBC (Bld) 5.0 % Normal [facility] Comment on above: Performed By: #### C BCD1 #### [facility] [address] [place] [address] Platelet mean volume (Bld) [Entitic vol] 11.4 fL Normal 9.4-12.3 [facility] Comment on above: Performed By: #### C BCD1 #### [facility] [address] [place] [address] Platelets (Bld) [#/Vol] 180 thou/cmm Low 182-369 [facility] Comment on above: Performed By: #### C BCD1 #### [facility] [address] [place] [address] RBC (Bld) [#/Vol] 3.46 mil/cmm Low 3.93-5.22 [facility] Comment on above: Performed By: #### C BCD1 #### [facility] [address] [place] [address] RDW SD 46.2 fl Normal 36.4-46.3 [facility] Comment on above: Performed By: #### C BCD1 #### [facility] [address] [place] [address] Seg Neutrophil 56.3 % Normal [facility] Comment on above: Performed By: #### C BCD1 #### [facility] [address] [place] [address] WBC (Bld) [#/Vol] 5.77 thou/cmm Normal 3.98-10.04 [facility] Comment on above: Performed By: #### C BCD1 #### [facility] [address] [place] [address] Magnesium Bloodon 11-26-2017 Magnesium [Mass/Vol] 2.1 mg/dL Normal 1.6-2.6 [facility] Comment on above: Performed By: #### M AG #### [facility] [address] [place] [id number] Protimeon 11-26-2017 INR Coag (PPP) [Relative time] 0.96 {INR} Normal [facility] Comment on above: Result Comment: Abdulaziz dard Therapy 2.0-3.0 High Dose 2.5-3.5 Performed By: #### P T #### [facility] [address] [place] [address] PT Coag (PPP) [Time] 10.3 s Normal 9.3-11.9 [facility] Comment on above: Performed By: #### P T #### [facility] [address] [place] [address] SHOULDER LIMITED 2V AP/TRUE AP RIGHTon 11-06-2017 SHOULDER LIMITED 2V AP/TRUE AP RIGHT Performed at [facility] APPROVED BY: Luis Evans MD EXAM TITLE: SHOULDER LIMITED 2V AP/TRUE AP RIGHT DATE: 11/06/2017 11:03 COMPARISON: None. CLINICAL INDICATION/HISTORY: Right shoulder pain TECHNIQUE: AP and oblique views of the right shoulder FINDINGS: All visualized soft tissues and bony structures are normal. No fracture or dislocation. Joint spaces are preserved. IMPRESSION: Normal right shoulder. Normal [facility] Vital Signs Date Time Vital Sign Value Performing Clinician Facility 10-27-2024 10:34-0400 Body temperature 97.7 [degF] Dr. Katherine Munoz MD Work Phone: [facility] 10-27-2024 10:34-0400 Diastolic blood pressure 70 mm[Hg] Dr. Katherine Munoz MD Work Phone: [facility] 10-27-2024 10:34-0400 Heart rate 90 /min Dr. Katherine Munoz MD Work Phone: [facility] 10-27-2024 10:34-0400 Respiratory rate 16 /min Dr. Katherine Munoz MD Work Phone: [facility] 10-27-2024 10:34-0400 SaO2% (BldA) [Mass fraction] 97 % Dr. Katherine Munoz MD Work Phone: [facility] 10-27-2024 10:34-0400 Systolic blood pressure 112 mm[Hg] Dr. Katherine Munoz MD Work Phone: [facility] 10-27-2024 10:17-0400 Body height 170.[address] Katherine Munoz MD Work Phone: [facility] 10-13-2024 14:44-0400 Body temperature 97 [degF] Dr. Katherine Munoz MD Work Phone: [facility] 10-13-2024 14:44-0400 Heart rate 89 /min Dr. Katherine Munoz MD Work Phone: [facility] 10-13-2024 14:44-0400 Respiratory rate 18 /min Dr. Katherine Munoz MD Work Phone: [facility] 10-13-2024 14:44-0400 SaO2% (BldA) [Mass fraction] 96 % Dr. Katherine Munoz MD Work Phone: [facility] 10-13-2024 14:30-0400 Diastolic blood pressure 70 mm[Hg] Dr. Katherine Munoz MD Work Phone: [facility] 10-13-2024 14:30-0400 Inhaled oxygen flow rate 2 L/min Dr. Katherine Munoz MD Work Phone: [facility] 10-13-2024 14:30-0400 Systolic blood pressure 102 mm[Hg] Dr. Katherine Munoz MD Work Phone: [facility] 10-13-2024 11:03-0400 Body height 170.[address] Katherine Munoz MD Work Phone: [facility] 10-13-2024 11:03-0400 Body mass index (BMI) [Ratio] 29.1 kg/m2 Dr. aKtherine Munoz MD Work Phone: [facility] 10-13-2024 11:03-0400 Body weight 84.[address] Katherine Munoz MD Work Phone: [facility] 10-02-2024 14:55-0400 Body temperature 98.3 [degF] Dr. Katherine Munoz MD Work Phone: [facility] 10-02-2024 14:55-0400 Diastolic blood pressure 82 mm[Hg] Dr. Katherine Munoz MD Work Phone: [facility] 10-02-2024 14:55-0400 Heart rate 70 /min Dr. Katherine Munoz MD Work Phone: [facility] 10-02-2024 14:55-0400 Respiratory rate 14 /min Dr. Katherine Munoz MD Work Phone: [facility] 10-02-2024 14:55-0400 SaO2% (BldA) [Mass fraction] 99 % Dr. Katherine Munoz MD Work Phone: [facility] 10-02-2024 14:55-0400 Systolic blood pressure 124 mm[Hg] Dr. Katherine Munoz MD Work Phone: [facility] 10-02-2024 12:53-0400 Body mass index (BMI) [Ratio] 29.1 kg/m2 Dr. Katherine Munoz MD Work Phone: [facility] 10-02-2024 12:53-0400 Body weight 84.[address] Katherine Munoz MD Work Phone: [facility] 10-02-2024 11:42-0400 Body height 170.[address] Katherine Munoz MD Work Phone: [facility] 10-01-2024 08:54-0400 Body height 170.[address] Katherine Munoz MD Work Phone: [facility] 10-01-2024 08:54-0400 Body mass index (BMI) [Ratio] 29.1 kg/m2 Dr. Katherine Munoz MD Work Phone: [facility] 10-01-2024 08:54-0400 Body weight 84.[address] Katherine Munoz MD Work Phone: [facility] 10-01-2024 08:54-0400 Diastolic blood pressure 71 mm[Hg] Dr. Katherine Munoz MD Work Phone: [facility] 10-01-2024 08:54-0400 Heart rate 87 /min Dr. Katherine Munoz MD Work Phone: [facility] 10-01-2024 08:54-0400 Respiratory rate 17 /min Dr. Katherine Munoz MD Work Phone: [facility] 10-01-2024 08:54-0400 SaO2% (BldA) [Mass fraction] 95 % Dr. Katherine Munoz MD Work Phone: [facility] 10-01-2024 08:54-0400 Systolic blood pressure 105 mm[Hg] Dr. Katherine Munoz MD Work Phone: [facility] 09-24-2024 18:54-0400 Body temperature 98.3 [degF] Dr. Katherine Munoz MD Work Phone: [facility] 09-24-2024 18:54-0400 Diastolic blood pressure 76 mm[Hg] Dr. Katherine Munoz MD Work Phone: [facility] 09-24-2024 18:54-0400 Heart rate 79 /min Dr. Katherine Munoz MD Work Phone: [facility] 09-24-2024 18:54-0400 Respiratory rate 16 /min Dr. Katherine Munoz MD Work Phone: [facility] 09-24-2024 18:54-0400 SaO2% (BldA) [Mass fraction] 99 % Dr. Katherine Munoz MD Work Phone: [facility] 09-24-2024 18:54-0400 Systolic blood pressure 134 mm[Hg] Dr. Kahterine Munoz MD Work Phone: [facility] 09-24-2024 13:17-0400 Body height 170.[address] Katherine Munoz MD Work Phone: [facility] 09-24-2024 13:17-0400 Body mass index (BMI) [Ratio] 28.6 kg/m2 Dr. Katherine Munoz MD Work Phone: [facility] 09-24-2024 13:17-0400 Body weight [address] Katherine Munoz MD Work Phone: [facility] 08-22-2024 14:20-0400 Body temperature 97.1 [degF] Dr. Katherine Munoz MD Work Phone: [facility] 08-22-2024 14:20-0400 Diastolic blood pressure 63 mm[Hg] Dr. Katherine Munoz MD Work Phone: [facility] 08-22-2024 14:20-0400 Heart rate 78 /min Dr. Katherine Munoz MD Work Phone: [facility] 08-22-2024 14:20-0400 Respiratory rate 16 /min Dr. Katherine Munoz MD Work Phone: [facility] 08-22-2024 14:20-0400 SaO2% (BldA) [Mass fraction] 97 % Dr. Katherine Munoz MD Work Phone: [facility] 08-22-2024 14:20-0400 Systolic blood pressure 101 mm[Hg] Dr. Katherine Munoz MD Work Phone: [facility] 08-22-2024 13:37-0400 Inhaled oxygen flow rate 2 L/min Dr. Katherine Munoz MD Work Phone: [facility] 08-22-2024 12:23-0400 Body height 170.[address] Katherine Munoz MD Work Phone: [facility] 08-22-2024 12:23-0400 Body mass index (BMI) [Ratio] 30.5 kg/m2 Dr. Katherine uMnoz MD Work Phone: [facility] 08-22-2024 12:23-0400 Body weight 88.[address] Katherine Munoz MD Work Phone: [facility] 04-28-2024 10:58-0500 Body mass index (BMI) [Ratio] 29.1 kg/m2 Dr. Katherine Munoz MD Work Phone: [facility] 04-28-2024 10:58-0500 Body temperature 97.2 [degF] Dr. Katherine Munoz MD Work Phone: [facility] 04-28-2024 10:58-0500 Body weight 84.[address] Katherine Munoz MD Work Phone: [facility] 04-28-2024 10:58-0500 Diastolic blood pressure 78 mm[Hg] Dr. Katherine Munoz MD Work Phone: [facility] 04-28-2024 10:58-0500 Heart rate 82 /min Dr. Katherine Munoz MD Work Phone: [facility] 04-28-2024 10:58-0500 Respiratory rate 17 /min Dr. Katherine Munoz MD Work Phone: [facility] 04-28-2024 10:58-0500 SaO2% (BldA) [Mass fraction] 98 % Dr. Katherine Munoz MD Work Phone: [facility] 04-28-2024 10:58-0500 Systolic blood pressure 122 mm[Hg] Dr. Katherine Munoz MD Work Phone: [facility] 01-09-2024 17:58-0400 Diastolic Blood Pressure Non-Invasive 61 mm[Hg] SHILO REICHFIELD DO [facility] 01-09-2024 17:58-0400 Heart rate 89 /min SHILO REICHFIELD DO [facility] 01-09-2024 17:58-0400 Respiratory rate 18 /min SHILO REICHFIELD DO [facility] 01-09-2024 17:58-0400 Systolic Blood Pressure Non-Invasive 110 mm[Hg] SHILO REICHFIELD DO [facility] 01-09-2024 15:35-0400 Body temperature 98.06 [degF] SHILO REICHFIELD DO [facility] 01-09-2024 15:35-0400 Body weight 81.8 kg SHILO REICHFIELD DO [facility] 01-09-2024 15:35-0400 Diastolic Blood Pressure Non-Invasive 56 mm[Hg] SHILO REICHFIELD DO [facility] 01-09-2024 15:35-0400 Heart rate 102 /min SHILO REICHFIELD DO [facility] 01-09-2024 15:35-0400 Respiratory rate 16 /min SHILO REICHFIELD DO [facility] 01-09-2024 15:35-0400 Systolic Blood Pressure Non-Invasive 102 mm[Hg] SHILO HAM DO [facility] 11-08-2023 10:05-0400 Body temperature 96.4 [degF] Trish Adames MD Work Phone: [facility] 11-08-2023 10:05-0400 Diastolic blood pressure 69 mm[Hg] Trish Adames MD Work Phone: [facility] 11-08-2023 10:05-0400 Heart rate 89 /min Trish Adames MD Work Phone: [facility] 11-08-2023 10:05-0400 Respiratory rate 12 /min Trish Adames MD Work Phone: [facility] 11-08-2023 10:05-0400 Systolic blood pressure 107 mm[Hg] Trish Adames MD Work Phone: [facility] 10-04-2023 15:30-0400 Diastolic Blood Pressure Non-Invasive 63 mm[Hg] АЛЕКСАНДР KAREL DO [facility] 10-04-2023 15:30-0400 Heart rate 77 /min АЛЕКСАНДР KAREL DO [facility] 10-04-2023 15:30-0400 Systolic Blood Pressure Non-Invasive 90 mm[Hg] АЛЕКСАНДР KAREL DO [facility] 10-04-2023 15:15-0400 Diastolic Blood Pressure Non-Invasive 65 mm[Hg] АЛЕКСАНДР KAREL DO [facility] 10-04-2023 15:15-0400 Heart rate 76 /min АЛЕКСАНДР KAREL DO [facility] 10-04-2023 15:15-0400 Respiratory rate 18 /min АЛЕКСАНДР KAREL DO [facility] 10-04-2023 15:15-0400 Systolic Blood Pressure Non-Invasive 92 mm[Hg] АЛЕКСАНДР [employer] DO [facility] 10-04-2023 15:00-0400 Diastolic Blood Pressure Non-Invasive 62 mm[Hg] АЛЕКСАНДР [employer] [facility] 10-04-2023 15:00-0400 Heart rate 75 /min АЛЕКСАНДР [employer] [facility] 10-04-2023 15:00-0400 Systolic Blood Pressure Non-Invasive 98 mm[Hg] АЛЕКСАНДР [employer] [facility] 10-04-2023 14:45-0400 Respiratory rate 16 /min АЛЕКСАНДР [employer] [facility] 10-04-2023 14:28-0400 Body temperature 98.06 [degF] АЛЕКСАНДР [employer] [facility] 10-04-2023 14:20-0400 Respiratory Rate - Anes 16 br/min АЛЕКСАНДР [employer] [facility] 10-04-2023 14:15-0400 Respiratory Rate - Anes 17 br/min АЛЕКСАНДР [employer] [facility] 10-04-2023 14:10-0400 Respiratory Rate - Anes 10 br/min АЛЕКСАНДР [employer] [facility] 10-04-2023 12:46-0400 Body height 170 cm АЛЕКСАНДР [employer] [facility] 10-04-2023 12:46-0400 Body temperature 97.7 [degF] АЛЕКСАНДР [employer] [facility] 10-04-2023 12:46-0400 Body weight 85.5 kg АЛЕКСАНДР [employer] [facility] 10-04-2023 12:46-0400 Heart rate 89 /min АЛЕКСАНДР [employer] [facility] 09-20-2023 09:09-0400 Body height 170.2 cm АЛЕКСАНДР [employer] [facility] 09-20-2023 09:09-0400 Body weight 83 kg АЛЕКСАНДР [employer] [facility] 08-13-2023 13:30-0400 Diastolic blood pressure 77 mm[Hg] NOE WEBSTER MD [facility] 08-13-2023 13:30-0400 Heart rate 74 /min NOE WEBSTER MD [facility] 08-13-2023 13:30-0400 Respiratory rate 16 /min NOE WEBSTER MD [facility] 08-13-2023 13:30-0400 Systolic blood pressure 122 mm[Hg] NOE WEBSTER MD [facility] 08-13-2023 13:24-0400 Diastolic blood pressure 58 mm[Hg] NOE WEBSTER MD [facility] 08-13-2023 13:24-0400 Heart rate 78 /min NOE WEBSTER MD [facility] 08-13-2023 13:24-0400 Respiratory rate 16 /min NOE WEBSTER MD [facility] 08-13-2023 13:24-0400 Systolic blood pressure 103 mm[Hg] NOE WEBSTER MD [facility] 08-13-2023 12:30-0400 Diastolic Blood Pressure Non-Invasive 55 mm[Hg] NOE WEBSTER MD [facility] 08-13-2023 12:30-0400 Heart rate 77 /min NOE WEBSTER MD [facility] 08-13-2023 12:30-0400 Respiratory rate 16 /min NOE WEBSTER MD [facility] 08-13-2023 12:30-0400 Systolic Blood Pressure Non-Invasive 106 mm[Hg] NOE WEBSTER MD [facility] 08-13-2023 11:21-0400 Diastolic Blood Pressure Non-Invasive 58 mm[Hg] NOE WEBSTER MD [facility] 08-13-2023 11:21-0400 Systolic Blood Pressure Non-Invasive 106 mm[Hg] NOE WEBSTER MD [facility] 08-13-2023 08:07-0400 Body height 170.2 cm NOE WEBSTER MD [facility] 08-13-2023 08:07-0400 Body temperature 99.14 [degF] NOE WEBSTER MD [facility] 08-13-2023 08:07-0400 Body weight 81.9 kg NOE WEBSTER MD [facility] 08-13-2023 08:07-0400 Diastolic Blood Pressure Non-Invasive 55 mm[Hg] NOE WEBSTER MD [facility] 08-13-2023 08:07-0400 Systolic Blood Pressure Non-Invasive 95 mm[Hg] NOE WEBSTER MD [facility] 08-09-2023 17:13-0400 Diastolic blood pressure 72 mm[Hg] DR ANTOLIN BOYKIN MD [facility] 08-09-2023 17:13-0400 Heart rate 62 /min DR ANTOLIN BOYKIN MD [facility] 08-09-2023 17:13-0400 Respiratory rate 16 /min DR ANTOLIN BOYKIN MD [facility] 08-09-2023 17:13-0400 Systolic blood pressure 110 mm[Hg] DR ANTOLIN BOYKIN MD [facility] 08-09-2023 14:58-0400 Body temperature 98.6 [degF] DR ANTOLIN BOYKIN MD [facility] 08-09-2023 14:58-0400 Diastolic Blood Pressure Non-Invasive 66 mm[Hg] DR ANTOLIN BOYKIN MD [facility] 08-09-2023 14:58-0400 Heart rate 104 /min DR ANTOLIN BOYKIN MD [facility] 08-09-2023 14:58-0400 Respiratory rate 18 /min DR ANTOLIN BOYKIN MD [facility] 08-09-2023 14:58-0400 Systolic Blood Pressure Non-Invasive 97 mm[Hg] DR ANTOLIN BOYKIN MD [facility] 07-18-2023 07:25-0400 Body height 170.[address] Katherine Munoz Work Phone: [facility] 07-18-2023 07:25-0400 Body mass index (BMI) [Ratio] 28.3 kg/m2 Dr. Katherine Munoz Work Phone: [facility] 07-18-2023 07:25-0400 Body temperature 98.5 [degF] Dr. Katherine Munoz Work Phone: [facility] 07-18-2023 07:25-0400 Body weight 82.[address] Katherine Munoz Work Phone: [facility] 07-18-2023 07:25-0400 Diastolic blood pressure 65 mm[Hg] Dr. Katherine Munoz Work Phone: [facility] 07-18-2023 07:25-0400 Heart rate 91 /min Dr. Katherine Munoz Work Phone: [facility] 07-18-2023 07:25-0400 Respiratory rate 18 /min Dr. Katherine Munoz Work Phone: [facility] 07-18-2023 07:25-0400 SaO2% (BldA) [Mass fraction] 95 % Dr. Katherine Munoz Work Phone: [facility] 07-18-2023 07:25-0400 Systolic blood pressure 112 mm[Hg] Dr. Katherine Munoz Work Phone: [facility] 06-12-2023 10:23-0500 Body temperature 97.9 [degF] Giuseppe Barile PA-C Work Phone: [facility] 06-12-2023 10:23-0500 Diastolic blood pressure 59 mm[Hg] Giuseppe Barile PA-C Work Phone: [facility] 06-12-2023 10:23-0500 Heart rate 92 /min Giuseppe Barile PA-C Work Phone: [facility] 06-12-2023 10:23-0500 Respiratory rate 11 /min Giuseppe Barile PA-C Work Phone: [facility] 06-12-2023 10:23-0500 Systolic blood pressure 87 mm[Hg] Giuseppe Barile PA-C Work Phone: [facility] 06-08-2023 09:31-0500 Body temperature 97.6 [degF] Dr. Katherine Munoz Work Phone: [facility] 06-08-2023 09:31-0500 Diastolic blood pressure 76 mm[Hg] Dr. Katherine Munoz Work Phone: [facility] 06-08-2023 09:31-0500 Heart rate 96 /min Dr. Katherine Munoz Work Phone: [facility] 06-08-2023 09:31-0500 Respiratory rate 18 /min Dr. Katherine Munoz Work Phone: [facility] 06-08-2023 09:31-0500 SaO2% (BldA) [Mass fraction] 99 % Dr. Katherine Mnuoz Work Phone: [facility] 06-08-2023 09:31-0500 Systolic blood pressure 136 mm[Hg] Dr. Katherine Munoz Work Phone: [facility] 05-22-2023 10:28-0500 Diastolic blood pressure 66 mm[Hg] Giuseppe Barile PA-C Work Phone: [facility] 05-22-2023 10:28-0500 Heart rate 96 /min Giuseppe Barile PA-C Work Phone: [facility] 05-22-2023 10:28-0500 SaO2% (BldA) [Mass fraction] 93 % Giuseppe Barile PA-C Work Phone: [facility] 05-22-2023 10:28-0500 Systolic blood pressure 107 mm[Hg] Giuseppe Barile PA-C Work Phone: [facility] 04-17-2023 09:44-0500 Diastolic blood pressure 55 mm[Hg] Dr. Katherine Munoz Work Phone: [facility] 04-17-2023 09:44-0500 Heart rate 105 /min Dr. Katherine Munoz Work Phone: [facility] 04-17-2023 09:44-0500 Systolic blood pressure 101 mm[Hg] Dr. Katherine Munoz Work Phone: [facility] 04-17-2023 08:38-0500 Body height 170.[address] Katheirne Munoz Work Phone: [facility] 04-17-2023 08:38-0500 Body mass index (BMI) [Ratio] 28.3 kg/m2 Dr. Katherine Munoz Work Phone: [facility] 04-17-2023 08:38-0500 Body weight 82.[address] Katherine Munoz Work Phone: [facility] 04-17-2023 08:38-0500 Respiratory rate 18 /min Dr. Katherine Munoz Work Phone: [facility] 03-09-2023 10:15-0500 Body height 170.[address] Katherine Munoz Work Phone: [facility] 03-09-2023 10:15-0500 Body mass index (BMI) [Ratio] 29.8 kg/m2 Dr. Katherine Munoz Work Phone: [facility] 03-09-2023 10:15-0500 Body temperature 97.2 [degF] Dr. Katherine Munoz Work Phone: [facility] 03-09-2023 10:15-0500 Body weight 86.[address] Katherine Munoz Work Phone: [facility] 03-09-2023 10:15-0500 Diastolic blood pressure 60 mm[Hg] Dr. Katherine Munoz Work Phone: [facility] 03-09-2023 10:15-0500 Heart rate 48 /min Dr. Katherine Munoz Work Phone: [facility] 03-09-2023 10:15-0500 Respiratory rate 16 /min Dr. Katherine Munoz Work Phone: [facility] 03-09-2023 10:15-0500 SaO2% (BldA) [Mass fraction] 97 % Dr. Katherine Munoz Work Phone: [facility] 03-09-2023 10:15-0500 Systolic blood pressure 116 mm[Hg] Dr. Katherine Munoz Work Phone: [facility] 01-30-2023 08:35-0400 Body temperature 98.01 [degF] Giuseppe Barile PA-C Work Phone: [facility] 01-30-2023 08:35-0400 Diastolic blood pressure 49 mm[Hg] Giuseppe Barile PA-C Work Phone: [facility] 01-30-2023 08:35-0400 Heart rate 85 /min Giuseppe Barile PA-C Work Phone: [facility] 01-30-2023 08:35-0400 Respiratory rate 12 /min Giuseppe Barile PA-C Work Phone: [facility] 01-30-2023 08:35-0400 Systolic blood pressure 91 mm[Hg] Giuseppe Barile PA-C Work Phone: [facility] 01-17-2023 13:22-[address] TANNER GRUBER MD [facility] 01-17-2023 13:22-0400 Body temperature 99.32 [degF] DR TANNER GRUBER MD [facility] 01-17-2023 13:22-0400 Diastolic Blood Pressure Non-Invasive [address] TANNER GRUBER MD [facility] 01-17-2023 13:22-0400 Heart rate 94 /min DR TANNER GRUBER MD [facility] 01-17-2023 13:22-0400 Respiratory rate 16 /min DR TANNER GRUBER MD [facility] 01-17-2023 13:22-0400 Systolic Blood Pressure Non-Invasive [address] TANNER GRUBER MD [facility] 01-10-2023 16:21-0400 Body temperature 98.42 [degF] SCHUYLER BOYKIN MD [facility] 01-10-2023 16:21-0400 Body weight 95.5 kg SCHUYLER BOYKIN MD [facility] 01-10-2023 16:21-0400 Diastolic Blood Pressure Non-Invasive 60 1 SCHUYLER BOYKIN MD [facility] 01-10-2023 16:21-0400 Heart rate 97 /min SCHUYLER BOYKIN MD [facility] 01-10-2023 16:21-0400 Respiratory rate 18 /min SCHUYLER BOYKIN MD [facility] 01-10-2023 16:21-0400 Systolic Blood Pressure Non-Invasive 107 1 SCHUYLER BOYKIN MD [facility] 12-07-2022 19:48-0400 Diastolic blood pressure 80 mm[Hg] Dr. Katherine Munoz Work Phone: [facility] 12-07-2022 19:48-0400 Heart rate 77 /min Dr. Katherine Munoz Work Phone: [facility] 12-07-2022 19:48-0400 Respiratory rate 16 /min Dr. Katherine Munoz Work Phone: [facility] 12-07-2022 19:48-0400 SaO2% (BldA) [Mass fraction] 95 % Dr. Katherine Munoz Work Phone: [facility] 12-07-2022 19:48-0400 Systolic blood pressure 108 mm[Hg] Dr. Katherine Munoz Work Phone: [facility] 12-07-2022 13:34-0400 Body height 170.[address] Katherine Munoz Work Phone: [facility] 12-07-2022 13:34-0400 Body mass index (BMI) [Ratio] 34.4 kg/m2 Dr. Katherine Munoz Work Phone: [facility] 12-07-2022 13:34-0400 Body temperature 97.1 [degF] Dr. Katherine Munoz Work Phone: [facility] 12-07-2022 13:34-0400 Body weight 99.[address] Katherine Munoz Work Phone: [facility] 11-27-2022 17:20-0400 Diastolic Blood Pressure Non-Invasive 92 1 GALDINO COOPER MD [facility] 11-27-2022 17:20-0400 Heart rate 79 /min GALDINO COOPER MD [facility] 11-27-2022 17:20-0400 Respiratory rate 16 /min GALDINO COOPER MD [facility] 11-27-2022 17:20-0400 Systolic Blood Pressure Non-Invasive 132 1 GALDINO COOPER MD [facility] 11-27-2022 15:36-0400 Body height 170 cm GALDINO COOPER MD [facility] 11-27-2022 15:36-0400 Body temperature 99.68 [degF] GALDINO COOPER MD [facility] 11-27-2022 15:36-0400 Body weight 100 kg GALDINO COOPER MD [facility] 11-27-2022 15:36-0400 Diastolic Blood Pressure Non-Invasive 62 1 GALDINO COOPER MD [facility] 11-27-2022 15:36-0400 Heart rate 90 /min GALDINO COOPER MD [facility] 11-27-2022 15:36-0400 Respiratory rate 16 /min GALDINO COOPER MD [facility] 11-27-2022 15:36-0400 Systolic Blood Pressure Non-Invasive 104 1 GALDINO COOPER MD [facility] 11-20-2022 12:18-0400 Diastolic Blood Pressure Non-Invasive 76 1 GONZALO DELCID MD [facility] 11-20-2022 12:18-0400 Heart rate 96 /min GONZALO DELCID MD [facility] 11-20-2022 12:18-0400 Respiratory rate 16 /min GONZALO DELCID MD [facility] 11-20-2022 12:18-0400 Systolic Blood Pressure Non-Invasive 102 1 GONZALO DELCID MD [facility] 11-20-2022 10:50-0400 Body temperature 98.78 [degF] GONZALO DELCID MD [facility] 11-20-2022 10:50-0400 Body weight 92 kg GONZALO DELCID MD [facility] 11-20-2022 10:50-0400 Diastolic Blood Pressure Non-Invasive 56 1 GONZALO DELCID MD [facility] 11-20-2022 10:50-0400 Heart rate 95 /min GONZALO DELCID MD [facility] 11-20-2022 10:50-0400 Respiratory rate 16 /min GONZALO DELCID MD [facility] 11-20-2022 10:50-0400 Systolic Blood Pressure Non-Invasive 135 1 GONZALO DELCID MD [facility] 09-27-2022 18:46-0400 Diastolic blood pressure 71 mm[Hg] Dr. Katherine Munoz Work Phone: [facility] 09-27-2022 18:46-0400 Systolic blood pressure 112 mm[Hg] Dr. Katherine Munoz Work Phone: [facility] 09-27-2022 17:17-0400 Heart rate 87 /min Dr. Katherine Munoz Work Phone: [facility] 09-27-2022 17:02-0400 Body mass index (BMI) [Ratio] 29 kg/m2 Dr. Katherine Munoz Work Phone: [facility] 09-27-2022 17:02-0400 Body temperature 98 [degF] Dr. Katherine Munoz Work Phone: [facility] 09-27-2022 17:02-0400 Body weight 83.[address] Katherine Munoz Work Phone: [facility] 09-27-2022 17:02-0400 Respiratory rate 14 /min Dr. Katherine Munoz Work Phone: [facility] 09-27-2022 17:02-0400 SaO2% (BldA) [Mass fraction] 97 % Dr. Katherine Munoz Work Phone: [facility] 09-27-2022 08:13-0400 Body temperature 98 [degF] Dr. Katherine Munoz Work Phone: [facility] 09-27-2022 08:13-0400 Diastolic blood pressure 64 mm[Hg] Dr. Katherine Munoz Work Phone: [facility] 09-27-2022 08:13-0400 Heart rate 75 /min Dr. Katherine Munoz Work Phone: [facility] 09-27-2022 08:13-0400 Respiratory rate 16 /min Dr. Katherine Munoz Work Phone: [facility] 09-27-2022 08:13-0400 SaO2% (BldA) [Mass fraction] 97 % Dr. Katherine Munoz Work Phone: [facility] 09-27-2022 08:13-0400 Systolic blood pressure 100 mm[Hg] Dr. Katherine Munoz Work Phone: [facility] 09-27-2022 07:00-0400 Body height 170.[address] Katherine Munoz Work Phone: [facility] 09-20-2022 08:11-0400 Body temperature 96.2 [degF] Dr. Katherine Munoz Work Phone: [facility] 09-20-2022 08:11-0400 Diastolic blood pressure 82 mm[Hg] Dr. Katherine Munoz Work Phone: [facility] 09-20-2022 08:11-0400 Heart rate 75 /min Dr. Katherine Munoz Work Phone: [facility] 09-20-2022 08:11-0400 Respiratory rate 18 /min Dr. Katherine Munoz Work Phone: [facility] 09-20-2022 08:11-0400 SaO2% (BldA) [Mass fraction] 99 % Dr. Katherine Munoz Work Phone: [facility] 09-20-2022 08:11-0400 Systolic blood pressure 116 mm[Hg] Dr. Katherine Munoz Work Phone: [facility] 09-11-2022 19:22-0400 Diastolic Blood Pressure Non-Invasive 74 1 TALI BALLARDT DO [facility] 09-11-2022 19:22-0400 Heart rate 74 /min TALI FROMForaT DO [facility] 09-11-2022 19:22-0400 Respiratory rate 16 /min TALI FROMMELT DO [facility] 09-11-2022 19:22-0400 Systolic Blood Pressure Non-Invasive 118 1 TALI BALLARDT DO [facility] 09-11-2022 18:47-0400 Heart rate 74 /min TALI FROMForaT DO [facility] 09-11-2022 18:47-0400 Respiratory rate 16 /min TALI FROMMELT DO [facility] 09-11-2022 18:47-0400 systolic 106 mm[Hg] TALI FENTONMELT DO [facility] 09-11-2022 15:16-0400 Body temperature 98.06 [degF] TALI FENTONMELT DO [facility] 09-11-2022 15:16-0400 Body weight 90 kg TALI FROMMELT DO [facility] 09-11-2022 15:16-0400 Diastolic Blood Pressure Non-Invasive 53 1 TALI FROMMELT DO [facility] 09-11-2022 15:16-0400 Heart rate 91 /min TALI MORALES DO [facility] 09-11-2022 15:16-0400 Respiratory rate 16 /min TALI MORALES DO [facility] 09-11-2022 15:16-0400 Systolic Blood Pressure Non-Invasive 95 1 TALI MORALES DO [facility] 08-15-2022 13:27-0400 Body height 170.[address] Katherine Munoz Work Phone: [facility] 08-15-2022 13:27-0400 Body mass index (BMI) [Ratio] 30.5 kg/m2 Dr. Katherine Munoz Work Phone: [facility] 08-15-2022 13:27-0400 Body temperature 98 [degF] Dr. Katherine Munoz Work Phone: [facility] 08-15-2022 13:27-0400 Body weight 88.[address] Katherine Munoz Work Phone: [facility] 08-15-2022 13:27-0400 Diastolic blood pressure 60 mm[Hg] Dr. Katherine Munoz Work Phone: [facility] 08-15-2022 13:27-0400 Heart rate 84 /min Dr. Katherine Munoz Work Phone: [facility] 08-15-2022 13:27-0400 Respiratory rate 14 /min Dr. Katherine Munoz Work Phone: [facility] 08-15-2022 13:27-0400 SaO2% (BldA) [Mass fraction] 95 % Dr. Katherine Munoz Work Phone: [facility] 08-15-2022 13:27-0400 Systolic blood pressure 114 mm[Hg] Dr. Katherine Munoz Work Phone: [facility] 08-01-2022 18:17-0400 Diastolic Blood Pressure Non-Invasive [address] NOE HAAS MD [facility] 08-01-2022 18:17-0400 Heart rate 76 /min DR NOE HAAS MD [facility] 08-01-2022 18:17-0400 Respiratory rate 16 /min DR NOE HAAS MD [facility] 08-01-2022 18:17-0400 Systolic Blood Pressure Non-Invasive [address] NOE HAAS MD [facility] 08-01-2022 15:45-0400 Body temperature 98.24 [degF] DR NOE HAAS MD [facility] 08-01-2022 15:45-0400 Body weight 93.[address] NOE HAAS MD [facility] 08-01-2022 15:45-0400 Diastolic Blood Pressure Non-Invasive [address] NOE HAAS MD [facility] 08-01-2022 15:45-0400 Heart rate 87 /min DR NOE HAAS MD [facility] 08-01-2022 15:45-0400 Respiratory rate 18 /min DR NOE HAAS MD [facility] 08-01-2022 15:45-0400 Systolic Blood Pressure Non-Invasive [address] NOE HAAS MD [facility] 07-25-2022 13:53-0400 Diastolic blood pressure 65 mm[Hg] Dr. Katherine Munoz Work Phone: [facility] 07-25-2022 13:53-0400 Heart rate 71 /min Dr. Katherine Munoz Work Phone: [facility] 07-25-2022 13:53-0400 Respiratory rate 16 /min Dr. Katherine Munoz Work Phone: [facility] 07-25-2022 13:53-0400 SaO2% (BldA) [Mass fraction] 100 % Dr. Katherine Munoz Work Phone: [facility] 07-25-2022 13:53-0400 Systolic blood pressure 113 mm[Hg] Dr. Katherine Munoz Work Phone: [facility] 07-25-2022 12:56-0400 Body mass index (BMI) [Ratio] 30.5 kg/m2 Dr. Katherine Munoz Work Phone: [facility] 07-25-2022 12:56-0400 Body weight 88.[address] Katherine Munoz Work Phone: [facility] 07-25-2022 11:14-0400 Body temperature 97 [degF] Dr. Katherine Munoz Work Phone: [facility] 07-21-2022 15:03-0400 Diastolic Blood Pressure Non-Invasive 55 1 GONZALO DELCID MD [facility] 07-21-2022 15:03-0400 Heart rate 86 /min GONZALO DELCID MD [facility] 07-21-2022 15:03-0400 Reason For Taking VItal Signs GONZALO DELCID MD [facility] 07-21-2022 15:03-0400 Respiratory rate 16 /min GONZALO DELCID MD [facility] 07-21-2022 15:03-0400 Systolic Blood Pressure Non-Invasive 116 1 GONZALO DELCID MD [facility] 07-21-2022 13:57-0400 Body temperature 100.4 [degF] GONZALO DELCID MD [facility] 07-21-2022 13:57-0400 Diastolic Blood Pressure Non-Invasive 61 1 GONZALO DELCID MD [facility] 07-21-2022 13:57-0400 Heart rate 102 /min GONZALO DELCID MD [facility] 07-21-2022 13:57-0400 Respiratory rate 16 /min GONZALO DELCID MD [facility] 07-21-2022 13:57-0400 Systolic Blood Pressure Non-Invasive 115 1 GONZALO DELCID MD [facility] 07-14-2022 11:33-0400 Body temperature 98.06 [degF] SHILO REICHFIELD DO [facility] 07-14-2022 11:33-0400 Diastolic Blood Pressure Non-Invasive 72 1 SHILO REICHFIELD DO [facility] 07-14-2022 11:33-0400 Heart rate 94 /min SHILO REICHFIELD DO [facility] 07-14-2022 11:33-0400 Respiratory rate 18 /min SHILO REICHFIELD DO [facility] 07-14-2022 11:33-0400 Systolic Blood Pressure Non-Invasive 112 1 SHILO REICHFIELD DO [facility] 06-21-2022 15:44-0400 Body temperature 97.8 [degF] Dr. Katherine Munoz Work Phone: [facility] 06-21-2022 15:44-0400 Diastolic blood pressure 82 mm[Hg] Dr. Katherine Munoz Work Phone: [facility] 06-21-2022 15:44-0400 Heart rate 87 /min Dr. Katherine Munoz Work Phone: [facility] 06-21-2022 15:44-0400 Respiratory rate 16 /min Dr. Katherine Munoz Work Phone: [facility] 06-21-2022 15:44-0400 SaO2% (BldA) [Mass fraction] 99 % Dr. Katherine Munoz Work Phone: [facility] 06-21-2022 15:44-0400 Systolic blood pressure 108 mm[Hg] Dr. Katherine Munoz Work Phone: [facility] 06-12-2022 14:35-0500 Body height 170.[address] Katherine Munoz Work Phone: [facility] 06-12-2022 14:35-0500 Body mass index (BMI) [Ratio] 31.3 kg/m2 Dr. Katherine Munoz Work Phone: [facility] 06-12-2022 14:35-0500 Body temperature 97.2 [degF] Dr. Katherine Munoz Work Phone: [facility] 06-12-2022 14:35-0500 Body weight 90.[address] Katherine Munoz Work Phone: [facility] 06-12-2022 14:35-0500 Diastolic blood pressure 68 mm[Hg] Dr. Katherine Munoz Work Phone: [facility] 06-12-2022 14:35-0500 Heart rate 90 /min Dr. Katherine Munoz Work Phone: [facility] 06-12-2022 14:35-0500 Respiratory rate 14 /min Dr. Katherine Munoz Work Phone: [facility] 06-12-2022 14:35-0500 SaO2% (BldA) [Mass fraction] 100 % Dr. Katherine Munoz Work Phone: [facility] 06-12-2022 14:35-0500 Systolic blood pressure 127 mm[Hg] Dr. Katherine Munoz Work Phone: [facility] 06-01-2022 16:08-0500 Diastolic blood pressure 53 mm[Hg] Dr. Katherine Munoz Work Phone: [facility] 06-01-2022 16:08-0500 Heart rate 86 /min Dr. Katherine Munoz Work Phone: [facility] 06-01-2022 16:08-0500 Respiratory rate 18 /min Dr. Katherine Munoz Work Phone: [facility] 06-01-2022 16:08-0500 SaO2% (BldA) [Mass fraction] 95 % Dr. Katherine Munoz Work Phone: [facility] 06-01-2022 16:08-0500 Systolic blood pressure 116 mm[Hg] Dr. Katherine Munoz Work Phone: [facility] 06-01-2022 14:55-0500 Body height 170.[address] Katherine Munoz Work Phone: [facility] 06-01-2022 14:55-0500 Body mass index (BMI) [Ratio] 30.8 kg/m2 Dr. Katherine Munoz Work Phone: [facility] 06-01-2022 14:55-0500 Body temperature 96.9 [degF] Dr. Katherine Munoz Work Phone: [facility] 06-01-2022 14:55-0500 Body weight 89.[address] Katherine Munoz Work Phone: [facility] 05-09-2022 12:50-0500 Diastolic blood pressure 68 mm[Hg] Dr. Katherine Munoz Work Phone: [facility] 05-09-2022 12:50-0500 Heart rate 70 /min Dr. Katherine Munoz Work Phone: [facility] 05-09-2022 12:50-0500 Respiratory rate 18 /min Dr. Katherine Munoz Work Phone: [facility] 05-09-2022 12:50-0500 SaO2% (BldA) [Mass fraction] 98 % Dr. Katherine Munoz Work Phone: [facility] 05-09-2022 12:50-0500 Systolic blood pressure 118 mm[Hg] Dr. Katherine Munoz Work Phone: [facility] 05-09-2022 10:47-0500 Body height 170.[address] Katherine Munoz Work Phone: [facility] 05-09-2022 10:47-0500 Body mass index (BMI) [Ratio] 31.6 kg/m2 Dr. Katherine Munoz Work Phone: [facility] 05-09-2022 10:47-0500 Body temperature 97.8 [degF] Dr. Katherine Munoz Work Phone: [facility] 05-09-2022 10:47-0500 Body weight 91.[address] Katherine Munoz Work Phone: [facility] 05-07-2022 17:21-0500 Body height 170.[address] Katherine Munoz Work Phone: [facility] 05-07-2022 17:21-0500 Body mass index (BMI) [Ratio] 31.4 kg/m2 Dr. Katherine Munoz Work Phone: [facility] 05-07-2022 17:21-0500 Body temperature 97.5 [degF] Dr. Katherine Muonz Work Phone: [facility] 05-07-2022 17:21-0500 Body weight 90.[address] Katherine Munoz Work Phone: [facility] 05-07-2022 17:21-0500 Diastolic blood pressure 63 mm[Hg] Dr. Katherine Munoz Work Phone: [facility] 05-07-2022 17:21-0500 Heart rate 94 /min Dr. Katherine Munoz Work Phone: [facility] 05-07-2022 17:21-0500 Respiratory rate 16 /min Dr. Katherine Munoz Work Phone: [facility] 05-07-2022 17:21-0500 SaO2% (BldA) [Mass fraction] 97 % Dr. Katherine Munoz Work Phone: [facility] 05-07-2022 17:21-0500 Systolic blood pressure 116 mm[Hg] Dr. Katherine Munoz Work Phone: [facility] 05-05-2022 14:56-0500 Body mass index (BMI) [Ratio] 31.6 kg/m2 Dr. Katherine Munoz Work Phone: [facility] 05-05-2022 14:56-0500 Body temperature 98.2 [degF] Dr. Katherine Munoz Work Phone: [facility] 05-05-2022 14:56-0500 Body weight 91.[address] Katherine Munoz Work Phone: [facility] 05-05-2022 14:56-0500 Diastolic blood pressure 82 mm[Hg] Dr. Katherine Munoz Work Phone: [facility] 05-05-2022 14:56-0500 Heart rate 87 /min Dr. Katherine Munoz Work Phone: [facility] 05-05-2022 14:56-0500 Respiratory rate 16 /min Dr. Katherine Munoz Work Phone: [facility] 05-05-2022 14:56-0500 SaO2% (BldA) [Mass fraction] 99 % Dr. Katherine Munoz Work Phone: [facility] 05-05-2022 14:56-0500 Systolic blood pressure 118 mm[Hg] Dr. Katherine Munoz Work Phone: [facility] 04-14-2022 13:42-0500 Body temperature 95.8 [degF] Dr. Katherine Munoz Work Phone: [facility] 04-14-2022 13:42-0500 Diastolic blood pressure 86 mm[Hg] Dr. Katherine Munoz Work Phone: [facility] 04-14-2022 13:42-0500 Heart rate 89 /min Dr. Katherine Munoz Work Phone: [facility] 04-14-2022 13:42-0500 Respiratory rate 18 /min Dr. Katherine Munoz Work Phone: [facility] 04-14-2022 13:42-0500 SaO2% (BldA) [Mass fraction] 98 % Dr. Katherine Munoz Work Phone: [facility] 04-14-2022 13:42-0500 Systolic blood pressure 118 mm[Hg] Dr. Katherine Munoz Work Phone: [facility] 04-13-2022 09:38-0500 Heart rate 92 /min Daniella [place] [employer] Work Phone: [facility] 04-13-2022 09:38-0500 Respiratory rate 16 /min Daniella [place] [employer] Work Phone: [facility] 04-13-2022 09:38-0500 SaO2% (BldA) [Mass fraction] 96 % Daniella Madisyn [employer] Work Phone: [facility] 03-23-2022 08:51-0500 Diastolic blood pressure 60 mm[Hg] Forest Dos Santos MD Work Phone: [facility] 03-23-2022 08:51-0500 Heart rate 85 /min Forest Dos Santos MD Work Phone: [facility] 03-23-2022 08:51-0500 Respiratory rate 18 /min Forest Dos Santos MD Work Phone: [facility] 03-23-2022 08:51-0500 SaO2% (BldA) [Mass fraction] 99 % Forest Dos Santos MD Work Phone: [facility] 03-23-2022 08:51-0500 Systolic blood pressure 114 mm[Hg] Forest Dos Santos MD Work Phone: [facility] 02-23-2022 08:27-0500 Heart rate 95 /min Daniella Madisyn [employer] Work Phone: [facility] 02-23-2022 08:27-0500 Respiratory rate 16 /min Daniella [place] [employer] Work Phone: [facility] 02-23-2022 08:27-0500 SaO2% (BldA) [Mass fraction] 96 % Daniella [place] [employer] Work Phone: [facility] 02-02-2022 19:01-0400 Diastolic blood pressure 56 mm[Hg] Dr. Katherine Munoz Work Phone: [facility] 02-02-2022 19:01-0400 Heart rate 80 /min Dr. Katherine Munoz Work Phone: [facility] 02-02-2022 19:01-0400 Respiratory rate 15 /min Dr. Katherine Munoz Work Phone: [facility] 02-02-2022 19:01-0400 SaO2% (BldA) [Mass fraction] 98 % Dr. Katherine Munoz Work Phone: [facility] 02-02-2022 19:01-0400 Systolic blood pressure 114 mm[Hg] Dr. Katherine Munoz Work Phone: [facility] 02-02-2022 17:02-0400 Body height 170.[address] Katherine Munoz Work Phone: [facility] 02-02-2022 17:02-0400 Body mass index (BMI) [Ratio] 34.4 kg/m2 Dr. Katherine Munoz Work Phone: [facility] 02-02-2022 17:02-0400 Body temperature 98.2 [degF] Dr. Katherine Munoz Work Phone: [facility] 02-02-2022 17:02-0400 Body weight 99.[address] Katherine Munoz Work Phone: [facility] 01-02-2022 14:55-0400 Body mass index (BMI) [Ratio] 34.4 kg/m2 Dr. Katherine Munoz Work Phone: [facility] 01-02-2022 14:55-0400 Body temperature 97.7 [degF] Dr. Katherine Munoz Work Phone: [facility] 01-02-2022 14:55-0400 Body weight 99.[address] Katherine Munoz Work Phone: [facility] 01-02-2022 14:55-0400 Diastolic blood pressure 68 mm[Hg] Dr. Katherine Munoz Work Phone: [facility] 01-02-2022 14:55-0400 Heart rate 78 /min Dr. Katherine Munoz Work Phone: [facility] 01-02-2022 14:55-0400 Respiratory rate 16 /min Dr. Katherine Munoz Work Phone: [facility] 01-02-2022 14:55-0400 SaO2% (BldA) [Mass fraction] 95 % Dr. Katherine Munoz Work Phone: [facility] 01-02-2022 14:55-0400 Systolic blood pressure 98 mm[Hg] Dr. Katherine Munoz Work Phone: [facility] 12-30-2021 18:04-0400 Respiratory rate 16 /min Dr. Katherine Munoz Work Phone: [facility] 12-30-2021 16:31-0400 Body mass index (BMI) [Ratio] 34.4 kg/m2 Dr. Katherine Munoz Work Phone: [facility] 12-30-2021 16:31-0400 Body temperature 98.9 [degF] Dr. Katherine Munoz Work Phone: [facility] 12-30-2021 16:31-0400 Body weight 99.[address] Katherine Munoz Work Phone: [facility] 12-30-2021 16:31-0400 Diastolic blood pressure 78 mm[Hg] Dr. Katherine Munoz Work Phone: [facility] 12-30-2021 16:31-0400 Heart rate 78 /min Dr. Katherine Munoz Work Phone: [facility] 12-30-2021 16:31-0400 SaO2% (BldA) [Mass fraction] 98 % Dr. Katherine Munoz Work Phone: [facility] 12-30-2021 16:31-0400 Systolic blood pressure 134 mm[Hg] Dr. Katherine Munoz Work Phone: [facility] 12-22-2021 08:21-0400 Heart rate 60 /min Daniella Mars [employer] Work Phone: [facility] 12-22-2021 08:21-0400 Respiratory rate 16 /min Daniella Avendañofield [employer] Work Phone: [facility] 12-22-2021 08:21-0400 SaO2% (BldA) [Mass fraction] 96 % Daniella Mars [employer] Work Phone: [facility] 12-08-2021 12:14-0400 Diastolic blood pressure 70 mm[Hg] Dr. Katherine Munoz Work Phone: [facility] Work Phone: 12-08-2021 12:14-0400 Heart rate 80 /min Dr. Katherine Munoz Work Phone: [facility] Work Phone: 12-08-2021 12:14-0400 Respiratory rate 16 /min Dr. Katherine Munoz Work Phone: [facility] Work Phone: 12-08-2021 12:14-0400 SaO2% (BldA) [Mass fraction] 96 % Dr. Katherine Munoz Work Phone: [facility] Work Phone: 12-08-2021 12:14-0400 Systolic blood pressure 100 mm[Hg] Dr. Katherine Munoz Work Phone: [facility] Work Phone: 12-08-2021 11:45-0400 Body temperature 98.2 [degF] Dr. Katherine Munoz Work Phone: [facility] Work Phone: 12-08-2021 08:06-0400 Body height 170.[address] Kahterine Munoz Work Phone: [facility] Work Phone: 12-08-2021 08:06-0400 Body mass index (BMI) [Ratio] 34.4 kg/m2 Dr. Katherine Munoz Work Phone: [facility] Work Phone: 12-08-2021 08:06-0400 Body weight 99.[address] Katherine Munoz Work Phone: [facility] Work Phone: 12-03-2021 20:51-0400 Diastolic blood pressure 65 mm[Hg] SHILO [employer] DO [facility] 12-03-2021 20:51-0400 Heart rate 86 /min SHILO [employer] DO [facility] 12-03-2021 20:51-0400 Reason For Taking VItal Signs SHILO REICHCenify DO [facility] 12-03-2021 20:51-0400 Respiratory rate 16 /min SHILO [employer] DO [facility] 12-03-2021 20:51-0400 Systolic blood pressure 110 mm[Hg] SHILO REICHFIELD DO [facility] 12-03-2021 19:33-0400 Body temperature 98.6 [degF] SHILO REICHFIELD DO [facility] 12-03-2021 19:33-0400 Diastolic blood pressure 82 mm[Hg] SHILO REICHFIELD DO [facility] 12-03-2021 19:33-0400 Heart rate 92 /min SHILO REICHFIELD DO [facility] 12-03-2021 19:33-0400 Mean blood pressure 98 mm[Hg] SHILO REICHFIELD DO [facility] 12-03-2021 19:33-0400 Respiratory rate 18 /min SHILO REICHFIELD DO [facility] 12-03-2021 19:33-0400 Systolic blood pressure 129 mm[Hg] SHILO REICHFIELD DO [facility] 11-03-2021 10:54-0400 Body height 167.6 cm Trish Adames MD Work Phone: [facility] 11-03-2021 10:54-0400 Body temperature 97.3 [degF] Trish Adames MD Work Phone: [facility] 11-03-2021 10:54-0400 Body weight 94.12 kg Trish Adames MD Work Phone: [facility] 11-03-2021 10:54-0400 Diastolic blood pressure 64 mm[Hg] Trish Adames MD Work Phone: [facility] 11-03-2021 10:54-0400 Heart rate 76 /min Trish Adames MD Work Phone: [facility] 11-03-2021 10:54-0400 SaO2% (BldA) [Mass fraction] 95 % Trish Adames MD Work Phone: [facility] 11-03-2021 10:54-0400 Systolic blood pressure 100 mm[Hg] Trish Adames MD Work Phone: [facility] 10-20-2021 13:30-0400 Heart rate 93 /min Forest Dos Santos MD Work Phone: [facility] 10-20-2021 13:30-0400 Respiratory rate 16 /min Forest Dos Santos MD Work Phone: [facility] 10-20-2021 13:30-0400 SaO2% (BldA) [Mass fraction] 96 % Forest Dos Santos MD Work Phone: [facility] 09-28-2021 18:21-0400 Diastolic blood pressure 77 mm[Hg] EULALIA WOODS MD [facility] 09-28-2021 18:21-0400 Heart rate 77 /min EULALIA WOODS MD [facility] 09-28-2021 18:21-0400 Respiratory rate 18 /min EULALIA WOODS MD [facility] 09-28-2021 18:21-0400 Systolic blood pressure 107 mm[Hg] EULALIA WOODS MD [facility] 09-28-2021 16:01-0400 Body temperature 98.96 [degF] EULALIA WOODS MD [facility] 09-28-2021 16:01-0400 Body weight 91 kg EULALIA WOODS MD [facility] 09-28-2021 16:01-0400 Diastolic blood pressure 80 mm[Hg] EULALIA WOODS MD [facility] 09-28-2021 16:01-0400 Heart rate 91 /min EULALIA WOODS MD [facility] 09-28-2021 16:01-0400 Respiratory rate 18 /min EULALIA WOODS MD [facility] 09-28-2021 16:01-0400 Systolic blood pressure 121 mm[Hg] EULALIA WOODS MD [facility] 09-15-2021 17:55-0400 Body temperature 98.3 [degF] Dr. Katherine Munoz Work Phone: [facility] Work Phone: 09-15-2021 17:55-0400 Diastolic blood pressure 67 mm[Hg] Dr. Katherine Munoz Work Phone: [facility] Work Phone: 09-15-2021 17:55-0400 Heart rate 77 /min Dr. Katherine Munoz Work Phone: [facility] Work Phone: 09-15-2021 17:55-0400 Respiratory rate 18 /min Dr. Katherine Munoz Work Phone: [facility] Work Phone: 09-15-2021 17:55-0400 SaO2% (BldA) [Mass fraction] 96 % Dr. Katherine Munoz Work Phone: [facility] Work Phone: 09-15-2021 17:55-0400 Systolic blood pressure 113 mm[Hg] Dr. Katherine Munoz Work Phone: [facility] Work Phone: 09-15-2021 13:41-0400 Body height 170.[address] Katherine Munoz Work Phone: [facility] Work Phone: 09-15-2021 13:41-0400 Body mass index (BMI) [Ratio] 32.5 kg/m2 Dr. Katherine Munoz Work Phone: [facility] Work Phone: 09-15-2021 13:41-0400 Body weight 94.[address] Katherine Munoz Work Phone: [facility] Work Phone: 09-09-2021 07:59-0400 Body temperature 97.7 [degF] Dr. Katherine Munoz Work Phone: [facility] Work Phone: 09-09-2021 07:59-0400 Diastolic blood pressure 84 mm[Hg] Dr. Katherine Munoz Work Phone: [facility] Work Phone: 09-09-2021 07:59-0400 Heart rate 65 /min Dr. Katherine Munoz Work Phone: [facility] Work Phone: 09-09-2021 07:59-0400 Respiratory rate 16 /min Dr. Katherine Munoz Work Phone: [facility] Work Phone: 09-09-2021 07:59-0400 SaO2% (BldA) [Mass fraction] 98 % Dr. Katherine Munoz Work Phone: [facility] Work Phone: 09-09-2021 07:59-0400 Systolic blood pressure 117 mm[Hg] Dr. Katherine Munoz Work Phone: [facility] Work Phone: 09-09-2021 06:19-0400 Body height 170.[address] Katherine Munoz Work Phone: [facility] Work Phone: 09-09-2021 06:19-0400 Body mass index (BMI) [Ratio] 31.7 kg/m2 Dr. Katherine Munoz Work Phone: [facility] Work Phone: 09-09-2021 06:19-0400 Body weight [address] Katherine Munoz Work Phone: [facility] Work Phone: 08-30-2021 08:05-0400 Body mass index (BMI) [Ratio] 32.1 kg/m2 Dr. Katherine Munoz Work Phone: [facility] Work Phone: 08-30-2021 08:05-0400 Body temperature 97.1 [degF] Dr. Katherine Munoz Work Phone: [facility] Work Phone: 08-30-2021 08:05-0400 Body weight 92.[address] Katherine Munoz Work Phone: [facility] Work Phone: 08-30-2021 08:05-0400 Diastolic blood pressure 70 mm[Hg] Dr. Katherine Munoz Work Phone: [facility] Work Phone: 08-30-2021 08:05-0400 Heart rate 95 /min Dr. Katherine Munoz Work Phone: [facility] Work Phone: 08-30-2021 08:05-0400 Respiratory rate 16 /min Dr. Katherine Munoz Work Phone: [facility] Work Phone: 08-30-2021 08:05-0400 SaO2% (BldA) [Mass fraction] 98 % Dr. Katherine Munoz Work Phone: [facility] Work Phone: 08-30-2021 08:05-0400 Systolic blood pressure 104 mm[Hg] Dr. Katherine Munoz Work Phone: [facility] Work Phone: 08-18-2021 10:29-0400 Heart rate 83 /min Forest Dos Santos MD Work Phone: [facility] 08-18-2021 10:29-0400 Respiratory rate 20 /min Forest Dos Santos MD Work Phone: [facility] 08-18-2021 10:29-0400 SaO2% (BldA) [Mass fraction] 97 % Forest Dos Santos MD Work Phone: [facility] 08-12-2021 07:21-0400 Body height 170.[address] Katherine Munoz Work Phone: [facility] Work Phone: 08-12-2021 07:21-0400 Body mass index (BMI) [Ratio] 34.4 kg/m2 Dr. Katherine Munoz Work Phone: [facility] Work Phone: 08-12-2021 07:21-0400 Body temperature 95.8 [degF] Dr. Katherine Munoz Work Phone: [facility] Work Phone: 08-12-2021 07:21-0400 Body weight 99.[address] Katherine Munoz Work Phone: [facility] Work Phone: 08-12-2021 07:21-0400 Diastolic blood pressure 71 mm[Hg] Dr. Katherine Munoz Work Phone: [facility] Work Phone: 08-12-2021 07:21-0400 Heart rate 105 /min Dr. Katherine Munoz Work Phone: [facility] Work Phone: 08-12-2021 07:21-0400 Respiratory rate 16 /min Dr. Katherine Munoz Work Phone: [facility] Work Phone: 08-12-2021 07:21-0400 SaO2% (BldA) [Mass fraction] 100 % Dr. Katherine Munoz Work Phone: [facility] Work Phone: 08-12-2021 07:21-0400 Systolic blood pressure 133 mm[Hg] Dr. Katherine Munoz Work Phone: [facility] Work Phone: 08-11-2021 11:34-0400 Diastolic blood pressure 74 mm[Hg] Dr. Katherine Munoz Work Phone: [facility] Work Phone: 08-11-2021 11:34-0400 Heart rate 85 /min Dr. Katherine Munoz Work Phone: [facility] Work Phone: 08-11-2021 11:34-0400 SaO2% (BldA) [Mass fraction] 96 % Dr. Katherine Munoz Work Phone: [facility] Work Phone: 08-11-2021 11:34-0400 Systolic blood pressure 111 mm[Hg] Dr. Katherine Munoz Work Phone: [facility] Work Phone: 08-11-2021 11:34-0400 Diastolic blood pressure 74 mm[Hg] Dr. Katherine Munoz Work Phone: [facility] Work Phone: 08-11-2021 11:34-0400 Heart rate 85 /min Dr. Katherine Munoz Work Phone: [facility] Work Phone: 08-11-2021 11:34-0400 SaO2% (BldA) [Mass fraction] 96 % Dr. Katherine Munoz Work Phone: [facility] Work Phone: 08-11-2021 11:34-0400 Systolic blood pressure 111 mm[Hg] Dr. Katherine Munoz Work Phone: [facility] Work Phone: 08-02-2021 13:21-0400 Body mass index (BMI) [Ratio] 34.4 kg/m2 Dr. Katherine Munoz Work Phone: [facility] Work Phone: 08-02-2021 13:21-0400 Body temperature 97.4 [degF] Dr. Katherine Munoz Work Phone: [facility] Work Phone: 08-02-2021 13:21-0400 Body weight 99.[address] Katherine Munoz Work Phone: [facility] Work Phone: 08-02-2021 13:21-0400 Diastolic blood pressure 72 mm[Hg] Dr. Katherine Munoz Work Phone: [facility] Work Phone: 08-02-2021 13:21-0400 Heart rate 90 /min Dr. Katherine Munoz Work Phone: [facility] Work Phone: 08-02-2021 13:21-0400 Respiratory rate 14 /min Dr. Katherine Munoz Work Phone: [facility] Work Phone: 08-02-2021 13:21-0400 SaO2% (BldA) [Mass fraction] 97 % Dr. Katherine Munoz Work Phone: [facility] Work Phone: 08-02-2021 13:21-0400 Systolic blood pressure 104 mm[Hg] Dr. Katherine Munoz Work Phone: [facility] Work Phone: 07-31-2021 19:11-0400 Heart rate 84 /min Dr. Katherine Munoz Work Phone: [facility] Work Phone: 07-31-2021 19:11-0400 Respiratory rate 16 /min Dr. Katherine Munoz Work Phone: [facility] Work Phone: 07-31-2021 17:11-0400 Body height 170.[address] Katherine Munoz Work Phone: [facility] Work Phone: 07-31-2021 17:11-0400 Body mass index (BMI) [Ratio] 34.4 kg/m2 Dr. Katherine Munoz Work Phone: [facility] Work Phone: 07-31-2021 17:11-0400 Body temperature 98.2 [degF] Dr. Katherine Munoz Work Phone: [facility] Work Phone: 07-31-2021 17:11-0400 Body weight 99.[address] Katherine Munoz Work Phone: [facility] Work Phone: 07-31-2021 17:11-0400 Diastolic blood pressure 73 mm[Hg] Dr. Katherine Munoz Work Phone: [facility] Work Phone: 07-31-2021 17:11-0400 SaO2% (BldA) [Mass fraction] 96 % Dr. Katherine Munoz Work Phone: [facility] Work Phone: 07-31-2021 17:11-0400 Systolic blood pressure 126 mm[Hg] Dr. Katherine Munoz Work Phone: [facility] Work Phone: 07-28-2021 05:35-0400 Diastolic blood pressure 61 mm[Hg] GRICELDA DE OLIVEIRA DO [facility] 07-28-2021 05:35-0400 Heart rate 70 /min GRICELDA DE OLIVEIRA DO [facility] 07-28-2021 05:35-0400 Mean blood pressure 79 mm[Hg] GRICELDA SINGLETARYKA DO [facility] 07-28-2021 05:35-0400 Reason For Taking VItal Signs GRICELDA DE OLIVEIRA DO [facility] 07-28-2021 05:35-0400 Respiratory rate 16 /min GRICELDA SINGLETARYSHANNAN DO [facility] 07-28-2021 05:35-0400 Systolic blood pressure 114 mm[Hg] GRICELDA SINGLETARYKA DO [facility] 07-28-2021 02:53-0400 Body height 170.18 cm GRICELDA SINGLETARYKA DO [facility] 07-28-2021 02:53-0400 Body temperature 97.7 [degF] GRICELDA SINGLETARYKA DO [facility] 07-28-2021 02:53-0400 Body weight 100 kg GRICELDA SINGLETARYKA DO [facility] 07-28-2021 02:53-0400 Diastolic blood pressure 73 mm[Hg] GRICELDA GEMINISHANNAN DO [facility] 07-28-2021 02:53-0400 Heart rate 97 /min GRICELDA SINGLETARYSHANNAN DO [facility] 07-28-2021 02:53-0400 Systolic blood pressure 111 mm[Hg] GRICELDA SINGLETARYSHANNAN DO [facility] 07-18-2021 15:31-0400 Diastolic blood pressure 79 mm[Hg] Dr. Katherine Munoz Work Phone: [facility] Work Phone: 07-18-2021 15:31-0400 Heart rate 62 /min Dr. Katherine Munoz Work Phone: [facility] Work Phone: 07-18-2021 15:31-0400 Respiratory rate 15 /min Dr. Katherine Munoz Work Phone: [facility] Work Phone: 07-18-2021 15:31-0400 SaO2% (BldA) [Mass fraction] 98 % Dr. Katherine Munoz Work Phone: [facility] Work Phone: 07-18-2021 15:31-0400 Systolic blood pressure 140 mm[Hg] Dr. Katherine Munoz Work Phone: [facility] Work Phone: 07-18-2021 12:37-0400 Body height 170.[address] Katherine Munoz Work Phone: [facility] Work Phone: 07-18-2021 12:37-0400 Body mass index (BMI) [Ratio] 34.4 kg/m2 Dr. Katherine Munoz Work Phone: [facility] Work Phone: 07-18-2021 12:37-0400 Body temperature 96.7 [degF] Dr. Katherine Munoz Work Phone: [facility] Work Phone: 07-18-2021 12:37-0400 Body weight 99.[address] Katherine Munoz Work Phone: [facility] Work Phone: 07-13-2021 19:53-0400 Diastolic blood pressure 72 mm[Hg] Dr. Katherine Munoz Work Phone: [facility] Work Phone: 07-13-2021 19:53-0400 Heart rate 70 /min Dr. Katherine Mnuoz Work Phone: [facility] Work Phone: 07-13-2021 19:53-0400 Systolic blood pressure 105 mm[Hg] Dr. Katherine Munoz Work Phone: [facility] Work Phone: 07-13-2021 19:27-0400 Respiratory rate 18 /min Dr. Katherine Munoz Work Phone: [facility] Work Phone: 07-13-2021 19:27-0400 SaO2% (BldA) [Mass fraction] 99 % Dr. Katherine Munoz Work Phone: [facility] Work Phone: 07-13-2021 16:50-0400 Body height 170.[address] Katherine Munoz Work Phone: [facility] Work Phone: 07-13-2021 16:50-0400 Body mass index (BMI) [Ratio] 34.4 kg/m2 Dr. Katherine Munoz Work Phone: [facility] Work Phone: 07-13-2021 16:50-0400 Body temperature 96.5 [degF] Dr. Katherine Munoz Work Phone: [facility] Work Phone: 07-13-2021 16:50-0400 Body weight 99.[address] Katherine Munoz Work Phone: [facility] Work Phone: 07-13-2021 08:00-0400 Body mass index (BMI) [Ratio] 32.4 kg/m2 Dr. Katherine Munoz Work Phone: [facility] Work Phone: 07-13-2021 08:00-0400 Body weight [address] Katherine Munoz Work Phone: [facility] Work Phone: 07-13-2021 08:00-0400 Heart rate 86 /min Dr. Katherine Munoz Work Phone: [facility] Work Phone: 07-13-2021 08:00-0400 SaO2% (BldA) [Mass fraction] 97 % Dr. Katherine Munoz Work Phone: [facility] Work Phone: 07-13-2021 08:00-0400 Systolic blood pressure 104 mm[Hg] Dr. Katherine Munoz Work Phone: [facility] Work Phone: 07-05-2021 18:57-0400 Body temperature 98.24 [degF] SHILO REICHFIELD DO [facility] 07-05-2021 18:57-0400 Diastolic blood pressure 74 mm[Hg] SHILO REICHFIELD DO [facility] 07-05-2021 18:57-0400 Heart rate 96 /min SHILO REICHFIELD DO [facility] 07-05-2021 18:57-0400 Respiratory rate 18 /min SHILO REICHFIELD DO [facility] 07-05-2021 18:57-0400 Systolic blood pressure 111 mm[Hg] [facility] DO [facility] 06-22-2021 10:30-0400 Body temperature 97.1 [degF] Dr. Katherine Munoz Work Phone: [facility] Work Phone: 06-22-2021 10:30-0400 Diastolic blood pressure 63 mm[Hg] Dr. Katherine Munoz Work Phone: [facility] Work Phone: 06-22-2021 10:30-0400 Heart rate 61 /min Dr. Katherine Munoz Work Phone: [facility] Work Phone: 06-22-2021 10:30-0400 Respiratory rate 16 /min Dr. Katherine Munoz Work Phone: [facility] Work Phone: 06-22-2021 10:30-0400 Systolic blood pressure 99 mm[Hg] Dr. Katherine Munoz Work Phone: [facility] Work Phone: 06-22-2021 10:25-0400 SaO2% (BldA) [Mass fraction] 100 % Dr. Katherine Munoz Work Phone: [facility] Work Phone: 06-22-2021 08:02-0400 Body mass index (BMI) [Ratio] 34.4 kg/m2 Dr. Katherine Munoz Work Phone: [facility] Work Phone: 06-22-2021 08:02-0400 Body weight 99.[address] Katherine Munoz Work Phone: [facility] Work Phone: 06-16-2021 12:48-0500 Respiratory rate 18 /min Dr. Katherine Munoz Work Phone: [facility] Work Phone: 06-16-2021 09:29-0500 Body mass index (BMI) [Ratio] 34.5 kg/m2 Dr. Katherine Munoz Work Phone: [facility] Work Phone: 06-16-2021 09:29-0500 Body temperature 97.2 [degF] Dr. Katherine Munoz Work Phone: [facility] Work Phone: 06-16-2021 09:29-0500 Body weight [address] Katherine Munoz Work Phone: [facility] Work Phone: 06-16-2021 09:29-0500 Diastolic blood pressure 88 mm[Hg] Dr. Katherine Munoz Work Phone: [facility] Work Phone: 06-16-2021 09:29-0500 Heart rate 91 /min Dr. Katherine Munoz Work Phone: [facility] Work Phone: 06-16-2021 09:29-0500 SaO2% (BldA) [Mass fraction] 100 % Dr. Katherine Munoz Work Phone: [facility] Work Phone: 06-16-2021 09:29-0500 Systolic blood pressure 147 mm[Hg] Dr. Katherine Munoz Work Phone: [facility] Work Phone: 06-14-2021 14:12-0500 Diastolic blood pressure 61 mm[Hg] GALDINO COOPER MD [facility] 06-14-2021 14:12-0500 Heart rate 82 /min GALDINO COOPER MD [facility] 06-14-2021 14:12-0500 Reason For Taking VItal Signs GALDINO COOPER MD [facility] 06-14-2021 14:12-0500 Respiratory rate 18 /min GALDINO COOPER MD [facility] 06-14-2021 14:12-0500 Systolic blood pressure 109 mm[Hg] GALDINO COOPER MD [facility] 06-14-2021 12:56-0500 Body temperature 99.14 [degF] GALDNIO COOPER MD [facility] 06-14-2021 12:56-0500 Diastolic blood pressure 75 mm[Hg] GALDINO COOPER MD [facility] 06-14-2021 12:56-0500 Heart rate 89 /min GALDINO COOPER MD [facility] 06-14-2021 12:56-0500 Respiratory rate 20 /min GALDINO COOPER MD [facility] 06-14-2021 12:56-0500 Systolic blood pressure 93 mm[Hg] GALDINO COOPER MD [facility] 06-09-2021 12:08-0500 Diastolic blood pressure 75 mm[Hg] Dr. Katherine Munoz Work Phone: [facility] Work Phone: 06-09-2021 12:08-0500 Heart rate 77 /min Dr. Katherine Munoz Work Phone: [facility] Work Phone: 06-09-2021 12:08-0500 Respiratory rate 16 /min Dr. Katherine Munoz Work Phone: [facility] Work Phone: 06-09-2021 12:08-0500 SaO2% (BldA) [Mass fraction] 98 % Dr. Katherine Munoz Work Phone: [facility] Work Phone: 06-09-2021 12:08-0500 Systolic blood pressure 111 mm[Hg] Dr. Katherine Munoz Work Phone: [facility] Work Phone: 06-09-2021 08:22-0500 Body mass index (BMI) [Ratio] 34.4 kg/m2 Dr. Katherine Munoz Work Phone: [facility] Work Phone: 06-09-2021 08:22-0500 Body temperature 97.8 [degF] Dr. Katherine Munoz Work Phone: [facility] Work Phone: 06-09-2021 08:22-0500 Body weight 99.[address] Katherine Munoz Work Phone: [facility] Work Phone: 06-01-2021 07:10-0500 Body mass index (BMI) [Ratio] 34.4 kg/m2 Dr. Katherine Munoz Work Phone: [facility] Work Phone: 06-01-2021 07:10-0500 Body temperature 96.9 [degF] Dr. Katherine Munoz Work Phone: [facility] Work Phone: 06-01-2021 07:10-0500 Body weight 99.[address] Katherine Munoz Work Phone: [facility] Work Phone: 06-01-2021 07:10-0500 Diastolic blood pressure 78 mm[Hg] Dr. Katherine Munoz Work Phone: [facility] Work Phone: 06-01-2021 07:10-0500 Heart rate 66 /min Dr. Katherine Munoz Work Phone: [facility] Work Phone: 06-01-2021 07:10-0500 Respiratory rate 16 /min Dr. Katherine Munoz Work Phone: [facility] Work Phone: 06-01-2021 07:10-0500 SaO2% (BldA) [Mass fraction] 96 % Dr. Katherine Munoz Work Phone: [facility] Work Phone: 06-01-2021 07:10-0500 Systolic blood pressure 118 mm[Hg] Dr. Katherine Munoz Work Phone: [facility] Work Phone: 05-22-2021 08:06-0500 Body temperature 98.24 [degF] GONZALO DELCID MD [facility] 05-22-2021 08:06-0500 Diastolic blood pressure 85 mm[Hg] GONZALO DELCID MD [facility] 05-22-2021 08:06-0500 Heart rate 97 /min GONZALO DELCID MD [facility] 05-22-2021 08:06-0500 Respiratory rate 18 /min GONZALO DELCID MD [facility] 05-22-2021 08:06-0500 Systolic blood pressure 127 mm[Hg] GONZALO DELCID MD [facility] 05-20-2021 13:23-0500 Diastolic Blood Pressure NBP 52 1 GRICELDA SUPPAN DPM [facility] 05-20-2021 13:23-0500 Heart rate 89 /min GRICELDA SUPPAN DPM [facility] 05-20-2021 13:23-0500 Respiratory rate 14 /min GRICELDA SUPPAN DPM [facility] 05-20-2021 13:23-0500 Systolic Blood Pressure NBP 94 1 GRICELDA SUPPAN DPM [facility] 05-20-2021 12:56-0500 Diastolic Blood Pressure NBP 86 1 GRICELDA SUPPAN DPM [facility] 05-20-2021 12:56-0500 Heart rate 87 /min GRICELDA SUPPAN DPM [facility] 05-20-2021 12:56-0500 Systolic Blood Pressure NBP 118 1 GRICELDA SUPPAN DPM [facility] 05-20-2021 12:32-0500 Diastolic Blood Pressure NBP 54 1 GRICELDA SUPPAN DPM [facility] 05-20-2021 12:32-0500 Heart rate 72 /min GRICELDA SUPPAN DPM [facility] 05-20-2021 12:32-0500 Respiratory rate 14 /min GRICELDA SUPPAN DPM [facility] 05-20-2021 12:32-0500 Systolic Blood Pressure NBP 104 1 GRICELDA SUPPAN DPM [facility] 05-20-2021 12:20-0500 Respiratory rate 12 /min GRICELDA SUPPAN DPM [facility] 05-20-2021 11:41-0500 Heart rate 72 /min GRICELDA SUPPAN DPM [facility] 05-20-2021 11:08-0500 Body temperature 98.24 [degF] GRICELDA SUPPAN DPM [facility] 05-20-2021 08:15-0500 Body height 170.2 cm GRICELDA SUPPAN DPM [facility] 05-20-2021 08:15-0500 Body temperature 98.06 [degF] GRICELDA SUPPAN DPM [facility] 05-20-2021 08:15-0500 Body weight 100 kg GRICELDA SUPPAN DPM [facility] 05-20-2021 08:15-0500 Heart rate 88 /min GRICELDA SUPPAN DPM [facility] 05-06-2021 09:14-0500 Body height 170.2 cm GRICELDA SUPPAN DPM [facility] 05-06-2021 09:14-0500 Body weight 100 kg GRICELDA SUPPAN DPM [facility] 05-06-2021 09:14-0500 Body weight 34.52 kg/m2 GRICELDA SUPPAN DPM [facility] 05-06-2021 09:14-0500 diastolic 80 mm[Hg] GRICELDA SUPPAN DPM [facility] 05-06-2021 09:14-0500 Heart rate 87 /min GRICELDA SUPPAN DPM [facility] 05-06-2021 09:14-0500 Respiratory rate 20 /min GRICELDA SUPPAN DPM [facility] 05-06-2021 09:14-0500 systolic 112 mm[Hg] GRICELDA SUPPAN DPM [facility] 04-12-2021 17:03-0500 Respiratory rate 16 /min Dr. Katherine Munoz Work Phone: [facility] Work Phone: 04-12-2021 14:55-0500 Body mass index (BMI) [Ratio] 34.4 kg/m2 Dr. Katherine Munoz Work Phone: [facility] Work Phone: 04-12-2021 14:55-0500 Body temperature 97 [degF] Dr. Katherine Munoz Work Phone: [facility] Work Phone: 04-12-2021 14:55-0500 Body weight 99.[address] Katherine Munoz Work Phone: [facility] Work Phone: 04-12-2021 14:55-0500 Diastolic blood pressure 70 mm[Hg] Dr. Katherine Munoz Work Phone: [facility] Work Phone: 04-12-2021 14:55-0500 Heart rate 95 /min Dr. Katherine Munoz Work Phone: [facility] Work Phone: 04-12-2021 14:55-0500 SaO2% (BldA) [Mass fraction] 100 % Dr. Katherine Munoz Work Phone: [facility] Work Phone: 04-12-2021 14:55-0500 Systolic blood pressure 120 mm[Hg] Dr. Katherine Munoz Work Phone: [facility] Work Phone: 04-08-2021 08:37-0500 Body mass index (BMI) [Ratio] 34.4 kg/m2 Dr. Katherine Munoz Work Phone: [facility] Work Phone: 04-08-2021 08:37-0500 Body temperature 97 [degF] Dr. Katherine Munoz Work Phone: [facility] Work Phone: 04-08-2021 08:37-0500 Body weight 99.[address] Katherine Munoz Work Phone: [facility] Work Phone: 04-08-2021 08:37-0500 Diastolic blood pressure 47 mm[Hg] Dr. Katherine Munoz Work Phone: [facility] Work Phone: 04-08-2021 08:37-0500 Heart rate 93 /min Dr. Katherine Munoz Work Phone: [facility] Work Phone: 04-08-2021 08:37-0500 Respiratory rate 16 /min Dr. Katherine Munoz Work Phone: [facility] Work Phone: 04-08-2021 08:37-0500 SaO2% (BldA) [Mass fraction] 100 % Dr. Katherine Munoz Work Phone: [facility] Work Phone: 04-08-2021 08:37-0500 Systolic blood pressure 114 mm[Hg] Dr. Katherine Munoz Work Phone: [facility] Work Phone: 04-07-2021 19:41-0500 Body temperature 97.7 [degF] SHILO REICHFIELD DO [facility] 04-07-2021 19:41-0500 Diastolic blood pressure 51 mm[Hg] [facility] 04-07-2021 19:41-0500 Heart rate 89 /min SHILO REICHFIELD DO [facility] 04-07-2021 19:41-0500 Respiratory rate 18 /min SHILO REICHFIELD DO [facility] 04-07-2021 19:41-0500 Systolic blood pressure 115 mm[Hg] [facility] 03-23-2021 07:41-0500 Body mass index (BMI) [Ratio] 31.8 kg/m2 Dr. Katherine Munoz Work Phone: [facility] Work Phone: 03-23-2021 07:41-0500 Body temperature 96.3 [degF] Dr. Katherine Munoz Work Phone: [facility] Work Phone: 03-23-2021 07:41-0500 Body weight 92.[address] Katherine Munoz Work Phone: [facility] Work Phone: 03-23-2021 07:41-0500 Diastolic blood pressure 78 mm[Hg] Dr. Katherine Munoz Work Phone: [facility] Work Phone: 03-23-2021 07:41-0500 Heart rate 68 /min Dr. Katherine Munoz Work Phone: [facility] Work Phone: 03-23-2021 07:41-0500 Respiratory rate 16 /min Dr. Katherine Munoz Work Phone: [facility] Work Phone: 03-23-2021 07:41-0500 SaO2% (BldA) [Mass fraction] 98 % Dr. Katherine Munoz Work Phone: [facility] Work Phone: 03-23-2021 07:41-0500 Systolic blood pressure 138 mm[Hg] Dr. Katherine Munoz Work Phone: [facility] Work Phone: 03-08-2021 16:14-0500 Body temperature 98.42 [degF] DOC LONGORIA DO [facility] 03-08-2021 16:14-0500 Diastolic blood pressure 83 mm[Hg] DOC LONGORIA DO [facility] 03-08-2021 16:14-0500 Heart rate 85 /min DOC LONGORIA DO [facility] 03-08-2021 16:14-0500 Respiratory rate 16 /min DOC LONGORIA DO [facility] 03-08-2021 16:14-0500 Systolic blood pressure 151 mm[Hg] DOC LONGORIA DO [facility] 02-23-2021 14:08-0500 Diastolic blood pressure 48 mm[Hg] EULALIA WOODS MD [facility] 02-23-2021 14:08-0500 Heart rate 82 /min EULALIA WOODS MD [facility] 02-23-2021 14:08-0500 Respiratory rate 16 /min EULALIA WOODS MD [facility] 02-23-2021 14:08-0500 Systolic blood pressure 108 mm[Hg] EULALIA WOODS MD [facility] 02-23-2021 12:34-0500 Body temperature 98.06 [degF] EULALIA WOODS MD [facility] 02-23-2021 12:34-0500 Diastolic blood pressure 57 mm[Hg] EULALIA WOODS MD [facility] 02-23-2021 12:34-0500 Heart rate 98 /min EULALIA WOODS MD [facility] 02-23-2021 12:34-0500 Respiratory rate 16 /min EULALIA WOODS MD [facility] 02-23-2021 12:34-0500 Systolic blood pressure 110 mm[Hg] EULALIA WOODS MD [facility] 02-08-2021 09:55-0400 Diastolic blood pressure 56 mm[Hg] GALDINO COOPER MD [facility] 02-08-2021 09:55-0400 Heart rate 86 /min GALDINO COOPER MD [facility] 02-08-2021 09:55-0400 Respiratory rate 16 /min GALDINO COOPER MD [facility] 02-08-2021 09:55-0400 Systolic blood pressure 117 mm[Hg] GALDINO COOPER MD [facility] 02-08-2021 07:54-0400 Body temperature 97.16 [degF] GALDINO COOPER MD [facility] 02-08-2021 07:54-0400 Diastolic blood pressure 82 mm[Hg] GALDINO COOPER MD [facility] 02-08-2021 07:54-0400 Heart rate 96 /min GALDINO COOPER MD [facility] 02-08-2021 07:54-0400 Respiratory rate 16 /min GALDINO COOPER MD [facility] 02-08-2021 07:54-0400 Systolic blood pressure 121 mm[Hg] GALDINO COOPER MD [facility] 01-27-2021 10:22-0400 Body temperature 98.42 [degF] SHILO REICHFIELD DO [facility] 01-27-2021 10:22-0400 Diastolic blood pressure 69 mm[Hg] SHILO REICHFIELD DO [facility] 01-27-2021 10:22-0400 Heart rate 106 /min SHILO REICHFIELD DO [facility] 01-27-2021 10:22-0400 Respiratory rate 16 /min SHILO REICHFIELD DO [facility] 01-27-2021 10:22-0400 Systolic blood pressure 111 mm[Hg] SHILO REICHFIELD DO [facility] 01-23-2021 04:12-0400 Diastolic blood pressure 72 mm[Hg] ERICA PAREKH MD [facility] 01-23-2021 04:12-0400 Heart rate 88 /min ERICA PAREKH MD [facility] 01-23-2021 04:12-0400 Respiratory rate 18 /min ERICA PAREKH MD [facility] 01-23-2021 04:12-0400 Systolic blood pressure 120 mm[Hg] ERICA PAREKH MD [facility] 01-23-2021 01:42-0400 Body height 170.2 cm ERICA PAREKH MD [facility] 01-23-2021 01:42-0400 Body temperature 98.78 [degF] EIRCA PAREKH MD [facility] 01-23-2021 01:42-0400 Body weight 100 kg ERICA PAREKH MD [facility] 01-23-2021 01:42-0400 Diastolic blood pressure 83 mm[Hg] ERICA PAREKH MD [facility] 01-23-2021 01:42-0400 Heart rate 92 /min ERICA PAREKH MD [facility] 01-23-2021 01:42-0400 Respiratory rate 18 /min ERICA PAREKH MD [facility] 01-23-2021 01:42-0400 Systolic blood pressure 124 mm[Hg] ERICA PAREKH MD [facility] Encounters Encounter Date Encounter Type Care Provider Facility Start: 11-26-2024 End: 11-26-2024 Emergency department patient visit TALI MORALES DO [facility] Start: 11-03-2024 End: 11-03-2024 Emergency department patient visit DR ANTOLIN BOYKIN MD [facility] Start: 10-27-2024 End: 10-27-2024 Dr. Katherine Munoz MD -[facility] Work Phone: Start: 10-27-2024 End: 10-27-[address] Katherine Munoz MD Work Phone: -[facility] Start: 10-15-2024 End: 10-17-2024 Refill Trish Adames MD Work Phone: [facility] Rheumatology and Arthritis Comment on above: Refill Request Start: 10-13-2024 ambulatory Damaso Mcneal lity:[facility] Start: 10-13-2024 Dr. Damaso Mcgarry MD -[facility] Start: 10-13-2024 End: 10-13-2024 Dr. Damaso Mcgarry [facility] Start: 10-13-2024 End: 10-13-[address] Katherine Munoz MD Work Phone: [facility] Start: 10-02-2024 End: 10-02-2024 Dr. Katherine Munoz MD Work Phone: -Emergency Department Work Phone: Start: 10-02-2024 End: 10-02-2024 Emergency department patient visit Dr. Katherine Munoz MD Work Phone: [facility] Work Phone: Start: 10-01-2024 End: 10-01-2024 Dr. Damaso Mcgarry MD -[facility] Work Phone: Start: 10-01-2024 End: 10-01-[address] Katherine Munoz MD Work Phone: [facility] Work Phone: Start: 09-24-2024 End: 09-24-2024 Dr. Katherine Munoz MD Work Phone: -Emergency Department Work Phone: Start: 09-24-2024 End: 09-24-2024 Emergency department patient visit Dr. Katherine Munoz MD Work Phone: [facility] Work Phone: Start: 09-19-2024 End: 09-19-[address] Katherine Munoz MD Work Phone: [facility] Work Phone: Start: 09-19-2024 End: 09-19-2024 Garyissac Diaz DO -Nuclear Medicine [facility] Work Phone: Start: 09-19-2024 End: 09-19-2024 ambulatory [facility] Facility:[facility] Start: 09-18-2024 End: 09-18-2024 Refill Trish Adames MD Work Phone: [facility] General Rheumatology and Arthritis Comment on above: Refill Request Start: 09-16-2024 End: 09-17-2024 ambulatory Trish Adames MD Work Phone: [facility] General Rheumatology and Arthritis Start: 09-16-2024 End: 09-17-2024 Patient encounter procedure Trish Adames MD Work Phone: [facility] General Rheumatology and Arthritis Comment on above: Appointment Start: 08-28-2024 End: 08-28-2024 Emergency department patient visit KATHERINE MUNOZ MD Facility:[facility] Start: 08-27-2024 End: 08-27-[address] Kathernie Munoz MD Work Phone: [facility] Work Phone: Start: 08-27-2024 End: 08-27-2024 Gary Diaz DO -Cat Scan [facility] Work Phone: Start: 08-27-2024 End: 08-27-2024 ambulatory Gary Friend Facility:[facility] Start: 08-22-2024 End: 08-22-2024 ambulatory Valerio Martinezrta Facility:[facility] Start: 08-22-2024 End: 08-22-2024 Dr. Bart Simmons MD -[facility] [facility] Work Phone: Start: 08-22-2024 ambulatory Gary Friend Facility :[facility] Start: 08-22-2024 Gary Friend DO -[facility] Start: 08-22-2024 End: 08-22-2024 Gary Diaz DO -Endoscopy Work Phone: Start: 08-22-2024 End: 08-22-[address] Katherine Munoz MD Work Phone: [facility] Work Phone: Start: 08-19-2024 End: 08-19-2024 Refill Trish Adames MD Work Phone: [facility] General Rheumatology and Arthritis Comment on above: Refill Request Start: 07-16-2024 End: 07-16-2024 Refill Trish Adames MD Work Phone: [facility] General Rheumatology and Arthritis Comment on above: Refill Request Start: 07-09-2024 End: 07-09-2024 Agryissac Diaz DO -[facility] Work Phone: Start: 07-09-2024 End: 07-09-2024 ambulatory Gary Diaz Facility:[facility] Start: 06-26-2024 End: 06-27-2024 Refill Trish Adames MD Work Phone: [facility] General Rheumatology and Arthritis Comment on above: Refill Request Start: 06-25-2024 End: 06-26-2024 Refill Trish Adames MD Work Phone: [facility] General Rheumatology and Arthritis Comment on above: Refill Request Start: 06-17-2024 ambulatory Katherine Eason ty:[facility] Start: 04-30-2024 End: 04-30-2024 E-mail encounter from caregiver [facility] Provider [facility] Rheumatology and Arthritis Start: 04-30-2024 End: 04-30-2024 Patient encounter procedure [facility] Provider [facility] Rhe[facility]ology [facility] Arthritis Comment on above: Lab results Start: 04-30-2024 End: 04-30-2024 Refill Trish Adames MD Work Phone: [facility] Arthritis & Rheumatology Comment on above: Refill Request Start: 04-28-2024 End: 04-28-2024 Dr. Katherine Munoz MD -[facility] Work Phone: Start: 04-28-2024 End: 04-28-2024 ambulatory Efewongbe Oleghe Facility:[facility] Start: 04-28-2024 End: 04-28-2024 ambulatory Efewongbe Oleghe Facility:[facility] Start: 04-22-2024 End: 04-22-2024 Patient encounter procedure Trish Adames MD Work Phone: [facility] Comment on above: Pain in joint, multi ple sites (Primary Dx); Vitamin D deficiency Start: 04-22-2024 End: 04-22-2024 Telemedicine consultation with patient Trish Adames MD Work Phone: [facility] Rheumatology [facility] Arthritis Start: 04-22-2024 End: 04-22-2024 ambulatory EFEWONGBE B OLEGHE [facility] Start: 04-10-2024 End: 04-10-2024 ambulatory Efewongbe Oleghe Facility:[facility] Start: 04-04-2024 End: 04-08-2024 Refill Trish Adames MD Work Phone: [facility] Comment on above: Refill Request Start: 03-12-2024 End: 03-12-2024 ambulatory Efewongbe Oleghe Facility:[facility] Start: 03-05-2024 End: 03-05-2024 Refill Trish Adames MD Work Phone: [facility] Arthritis & Rheumatology Comment on above: Refill Request Start: 02-21-2024 End: 02-21-2024 ambulatory [facility] Facility[facility] Start: 02-21-2024 End: 02-21-2024 ambulatory [facility] Facility:[facility] Start: 02-14-2024 End: 02-14-2024 Emergency department patient visit Tevin Law Facility:[facility] Start: 02-07-2024 End: 02-07-2024 ambulatory [facility] Facility:[facility] Start: 02-07-2024 End: 02-07-2024 Telemedicine consultation with patient Nelson Bragg APRN.[employer] Work Phone: Telemedicine Comment on above: Treatment not availa ble (Primary Dx) Start: 02-07-2024 End: 02-07-2024 ambulatory [facility] Facility:[facility] Start: 02-06-2024 End: 02-06-2024 Emergency department patient visit [facility] Facility:[facility] Start: 01-31-2024 End: 01-31-2024 Telephone encounter Trish Adames MD Work Phone: [facility] Rheumatology and Arthritis Comment on above: No Show Patient Update Start: 01-09-2024 End: 01-09-2024 Emergency department patient visit SHILO HAM DO [facility] Start: 01-09-2024 End: 01-10-2024 Refill Trish Adames MD Work Phone: [facility] Arthritis & Rheumatology Comment on above: Refill Request Start: 01-03-2024 End: 01-11-2024 Patient encounter procedure Trish Adames MD Work Phone: [facility] Rheumatology and Arthritis Comment on above: Pain in joint, multi ple sites (Primary Dx); Vitamin D deficiency; Systemic lupus erythematosus, unspecified SLE type, unspecified organ involvement status (HCC); Rheumatoid arthritis involving multiple sites with positive rheumatoid factor (HCC); Proteinuria, unspecified type; Long-term use of Plaquenil; Inflammatory arthritis; Oral lesion; Anemia, unspecified type Refill Request Start: 01-03-2024 End: 01-03-2024 ambulatory KATHERINE MUNOZ [facility] Start: 12-03-2023 End: 12-03-2023 Telephone encounter Trish Adames MD Work Phone: [facility] Rheumatology and Arthritis Comment on above: Patient Update Start: 11-29-2023 End: 11-29-2023 Emergency department patient visit [facility] Facility:[facility] Start: 11-22-2023 Telephone encounter Trish banks MD Work Phone: [facility] Rheumatology and Arthritis Comment on above: Patient Update Start: 11-20-2023 ambulatory BALJINDER MANDEL MD Facility :[facility] Start: 11-19-2023 End: 11-19-2023 ambulatory Katherine Marksfuentes Facility[facility] Start: 11-14-2023 Refill Giuseppegreg Geller e PA-C Work Phone: [facility] Arthritis & Rheumatology Comment on above: Refill Request Start: 11-08-2023 End: 11-08-2023 Patient encounter procedure Trish Adames MD Work Phone: [facility] Rheumatology and Arthritis Comment on above: Systemic lupus eryth ematosus, unspecified SLE type, unspecified organ involvement status (HCC); Rheumatoid arthritis involving multiple sites with positive rheumatoid factor (HCC); Long-term use of Plaquenil; Inflammatory arthritis; Vitamin D deficiency; Oral lesion; Proteinuria, unspecified type; Anemia, unspecified type Start: 11-08-2023 End: 11-08-2023 ambulatory TRISH ADAMES [facility] Start: 11-05-2023 Telephone encounter Trish banks MD Work Phone: [facility] Rheumatology and Arthritis Comment on above: Patient Update Start: 10-17-2023 Refill Giuseppe Kalpesh Hazell e PA-C Work Phone: [facility] Rheumatology and Arthritis Comment on above: Refill Request Start: 10-04-2023 End: 10-04-2023 ambulatory [facility] Facility:[facility] Start: 10-04-2023 End: 10-04-2023 SAME DAY ST[facility] Start: 09-21-2023 Telephone encounter Giuseppe galicia PA-C Work Phone: [facility] Rheumatology and Arthritis Comment on above: Patient Update Start: 09-20-2023 End: 09-20-2023 [facility]mission [facility] Start: 09-20-2023 End: 09-20-2023 ambulatory [facility] Start: 09-19-2023 Refill Giuseppe PetersonC Work Phone: [facility] Rheumatology and Arthritis Comment on above: Refill Request Start: 08-31-2023 Telephone encounter Trish banks MD Work Phone: [facility] Rheumatology and Arthritis Comment on above: Patient Update Start: 08-30-2023 End: 08-30-2023 ambulatory KATHERINE MUNOZ Facility:[facility] Start: 08-30-2023 End: 08-30-2023 Patient encounter procedure Trish Adames MD Work Phone: [facility] Rheumatology and Arthritis Comment on above: PAT positive (Primar y Dx); Systemic lupus erythematosus, unspecified SLE type, unspecified organ involvement status ([facility] Start: 08-30-2023 End: 08-30-2023 Telemedicine consultation with patient Trish Adames MD Work Phone: [facility] Rheumatology and Arthritis Start: 08-23-2023 Refill Giuseppe PetersonC Work Phone: [facility] Arthritis & Rheumatology Comment on above: Refill Request Start: 08-17-2023 Telephone encounter Trish banks MD Work Phone: [facility] Arthritis & Rheumatology Start: 08-13-2023 End: 08-13-2023 Emergency department patient visit NOE WEBSTER MD [facility] Start: 08-09-2023 End: 08-09-2023 Emergency department patient visit DR ANTOLIN BOYKIN MD [facility] Start: 08-08-2023 Telephone encounter Trish banks MD Work Phone: [facility] Rheumatology and Arthritis Comment on above: Patient Update Start: 08-07-2023 End: 08-07-[address] Katherine Munoz Work Phone: [facility] Work Phone: Start: 08-07-2023 End: 08-07-2023 Dr. Katherine Munoz Work Phone: [facility]-Laboratory Work Phone: Start: 08-07-2023 End: 08-07-2023 Dr. Katherine Munoz Work Phone: [facility] Gastroenterology Work Phone: Start: 07-31-2023 End: 07-31-2023 Patient encounter procedure Giuseppe Floyd PA-C Work Phone: [facility] Rheumatology and Arthritis Comment on above: Systemic lupus eryth ematosus, unspecified SLE type, unspecified organ involvement status (HCC) (Primary Dx); Rheumatoid arthritis involving multiple sites with positive rheumatoid factor (HCC); Long-term use of Plaquenil; Inflammatory arthritis; Vitamin D deficiency; Oral lesion; Proteinuria, unspecified type; Anemia, unspecified type Start: 07-31-2023 End: 07-31-2023 Telemedicine consultation with patient Giuseppe Floyd PA-C Work Phone: [facility] General Rheumatology and Arthritis Start: 07-31-2023 End: 07-31-2023 ambulatory KATHERINE MUNOZ Facility:[facility] Start: 07-25-2023 Refill Giuseppe downing PA-C Work Phone: [facility] Rheumatology and Arthritis Comment on above: Refill Request Start: 07-19-2023 Telephone encounter Trish banks MD Work Phone: [facility] Rheumatology and Arthritis Comment on above: Results (Awaiting fa x with lab results) Start: 07-18-2023 End: 07-18-[address] Katherine Munoz Work Phone: [facility] Work Phone: Start: 07-18-2023 End: 07-18-2023 Dr. Katherine Munoz Work Phone: [facility]-Cat Scan, [facility] Work Phone: Start: 07-17-2023 Telephone encounter Giuseppe galicia PA-C Work Phone: [facility] Rheumatology and Arthritis Comment on above: Consult (Oral Surgeo n) Start: 07-13-2023 Telephone encounter Trish banks MD Work Phone: [facility] Rheumatology and Arthritis Comment on above: Patient Question Start: 07-03-2023 Refill Ibeth Armas PA-C Work Phone: [facility] Rheumatology and Arthritis Comment on above: Refill Request Start: 06-26-2023 ambulatory Giuseppe downing PA-C Work Phone: [facility] Rheumatology and Arthritis Comment on above: Pain swollen Start: 06-18-2023 Telephone encounter Giuseppe galicia PA-C Work Phone: [facility] Arthritis & Rheumatology Comment on above: Results Start: 06-15-2023 End: 06-15-[address] Katherine Munoz Work Phone: [facility] Work Phone: Start: 06-15-2023 End: 06-15-2023 Dr. Katherine Munoz Work Phone: [facility]-Outpatient Breast Imaging Work Phone: Start: 06-12-2023 End: 06-12-2023 ambulatory KATHERINE MUNOZ [facility] Start: 06-12-2023 End: 06-12-2023 Patient encounter procedure Giuseppe Floyd PA-C Work Phone: [facility] Rheumatology and Arthritis Comment on above: Rheumatoid arthritis involving multiple sites with positive rheumatoid factor (HCC) (Primary Dx); Systemic lupus erythematosus, unspecified SLE type, unspecified organ involvement status (HCC); Inflammatory arthritis; Vitamin D deficiency; Weakness; Long-term use of Plaquenil Start: 06-12-2023 End: 06-12-2023 ambulatory KATHERINE MUNOZ [facility] Start: 06-08-2023 End: 06-08-[address] Katherine Munoz Work Phone: [facility] Work Phone: Start: 06-08-2023 End: 06-08-2023 Dr. Katherine Munoz Work Phone: [facility]-Radiology, [facility] Work Phone: Start: 06-08-2023 End: 06-08-2023 Dr. Katherine Munoz Work Phone: [facility] Internal Medicine Work Phone: Start: 06-06-2023 ambulatory Giuseppe downing PA-C Work Phone: [facility] Rheumatology and Arthritis Comment on above: Bloodwork Start: 06-04-2023 End: 06-04-2023 Emergency department patient visit SANKET RINALDI MD Facility:[facility] Start: 05-29-2023 Telephone encounter Giuseppe galicia PA-C Work Phone: [facility] Rheumatology and Arthritis Comment on above: Patient Question Start: 05-22-2023 End: 05-22-2023 Patient encounter procedure Giuseppe Floyd PA-C Work Phone: [facility] Rheumatology and Arthritis Comment on above: Systemic lupus eryth ematosus, unspecified SLE type, unspecified organ involvement status (HCC) (Primary Dx); Rheumatoid arthritis involving multiple sites with positive rheumatoid factor (HCC); Proteinuria, unspecified type; Long-term use of Plaquenil; Inflammatory arthritis; Vitamin D deficiency Start: 05-22-2023 End: 05-22-2023 ambulatory KATHERINE MUNOZ Facility:[facility] Start: 05-11-2023 Non-patient / Non-visit Dr. Ester Munoz Work Phone: [facility] Work Phone: Start: 05-11-2023 Dr. Katherine Munoz Work Phone: [facility] Work Phone: Start: 05-10-2023 Non-patient / Non-visit Dr. Ester Munoz Work Phone: [facility] Start: 05-10-2023 Dr. Katherine Munoz Work Phone: [facility] Start: 05-10-2023 Non-patient / Non-visit Dr. Ester Munoz Work Phone: [facility] Work Phone: Start: 05-10-2023 Dr. Katherine Munoz Work Phone: [facility] Work Phone: Start: 05-09-2023 Non-patient / Non-visit Dr. Ester Munoz Work Phone: [facility] Start: 05-09-2023 Dr. Katherine Munoz Work Phone: [facility] Start: 05-09-2023 End: 05-09-[address] Katherine Munoz Work Phone: [facility] Work Phone: Start: 05-09-2023 End: 05-09-[address] Katherine Munoz [facility] Work Phone: Start: 05-09-2023 End: 05-09-2023 Dr. Katherine Munoz Work Phone: [facility] [facility] Start: 05-03-2023 ambulatory Giuseppe downing PA-C Work Phone: [facility] Rheumatology and Arthritis Comment on above: My legs Start: 05-01-2023 End: 05-01-2023 ambulatory KATHERINE MUNOZ Facility:[facility] Start: 04-17-2023 End: 04-17-[address] Katherine Munoz Work Phone: [facility] Work Phone: Start: 04-17-2023 End: 04-17-2023 Dr. Katherine Munoz Work Phone: [facility] Work Phone: Start: 03-20-2023 End: 03-20-[address] Katherine Munoz Work Phone: [facility] Work Phone: Start: 03-20-2023 End: 03-20-[address] Katherine Munoz Work Phone: [facility]-Pulmonary Services/Neurology Work Phone: Start: 03-20-2023 End: 03-20-2023 Dr. Katherine Munoz Work Phone: [facility]-Pulmonary Services/Neurology Work Phone: Start: 03-09-2023 End: 03-09-[address] Katherine Munoz Work Phone: [facility] Work Phone: Start: 03-09-2023 End: 03-09-[address] Katherine Munoz Work Phone: [facility] Internal Medicine Work Phone: Start: 03-09-2023 End: 03-09-2023 Dr. Katherine Munoz Work Phone: [facility] Internal Medicine Work Phone: Start: 02-13-2023 End: 02-13-2023 ambulatory BALJINDER MANDEL MD Facility:B Start: 02-08-2023 ambulatory Giuseppe Geller e PA-C Work Phone: [facility] Rheumatology and Arthritis Comment on above: [facility] Start: 01-31-2023 End: 01-31-2023 ambulatory Giuseppe Posey Barile PA-C Work Phone: [facility] General Rheumatology and Arthritis Comment on above: Bloodwork Start: 01-30-2023 End: 01-30-2023 Patient encounter procedure Giuseppe Kalpesh Barile PA-C Work Phone: [facility] General Rheumatology and Arthritis Comment on above: Systemic lupus eryth ematosus, unspecified SLE type, unspecified organ involvement status (HCC) (Primary Dx); Rheumatoid arthritis involving multiple sites with positive rheumatoid factor (HCC); Long-term use of Plaquenil; Weakness Start: 01-22-2023 ambulatory Trish griffin MD Work Phone: [facility] Rheumatology and Arthritis Comment on above: Pain Start: 01-17-2023 End: 01-17-2023 Emergency department patient visit DR TANNER GRUBER MD [facility] Start: 01-12-2023 Refill Trish griffin MD Work Phone: [facility] General Rheumatology and Arthritis Comment on above: Refill Request Start: 01-10-2023 End: 01-10-2023 Emergency department patient visit SCHUYLER BOYKIN MD [facility] Start: 01-10-2023 End: 01-10-2023 Dr. Katherine Munoz Work Phone: [facility] Virtual Visit Work Phone: Start: 01-02-2023 End: 01-02-2023 Emergency department [facility] Start: 12-07-2022 End: 12-07-2022 Emergency department patient visit Dr. Katherine Munoz Work Phone: [facility] Work Phone: Start: 12-07-2022 End: 12-07-2022 Dr. Katherine Munoz Work Phone: [facility]-Emergency Department Work Phone: Start: 11-27-2022 End: 11-27-2022 Emergency department patient visit GALDINO COOPER MD [facility] Start: 11-20-2022 End: 11-20-2022 Emergency department patient visit GONZALO DELCID MD [facility] Start: 10-23-2022 End: 10-23-2022 Dr. Katherine Munoz Work Phone: [facility] Gastroenterology Work Phone: Start: 09-27-2022 End: 09-27-2022 Dr. Katherine Munoz Work Phone: [facility] Work Phone: Start: 09-27-2022 Dr. Katherine Munoz Work Phone: [facility] Start: 09-27-2022 End: 09-27-[address] Katherine Munoz Work Phone: [facility] Work Phone: Start: 09-27-2022 End: 09-27-2022 Dr. Katherine Munoz Work Phone: [facility]-Endoscopy Start: 09-20-2022 End: 09-20-2022 Encounter for general adult medical examination without abnormal findings Dr. Katherine Munoz Work Phone: [facility] Start: 09-20-2022 End: 09-20-2022 Dr. Katherine Munoz Work Phone: [facility] Internal Medicine Start: 09-11-2022 End: 09-11-2022 [facility] Start: 09-07-2022 Telephone encounter Daisy Kim MD Work Phone: [facility] Comment on above: Refill Request (bacl ofen (LIORESAL) 10 mg tablet) Start: 08-15-2022 End: 08-15-[address] Katherine Munoz Work Phone: [facility] Work Phone: Start: 08-15-2022 End: 08-15-2022 Dr. Katherine Munoz Work Phone: [facility] Internal Medicine Start: 08-14-2022 End: 08-14-[address] Katherine Munoz Work Phone: [facility] Work Phone: Start: 08-14-2022 End: 08-14-2022 Dr. Katherine Munoz Work Phone: [facility]-Nuclear Medicine, [facility] Start: 08-03-2022 Refill Trish griffin MD Work Phone: [facility] Rheumatology and Arthritis Comment on above: Refill Request Start: 08-01-2022 End: 08-01-2022 Emergency department patient visit DR NOE HAAS MD [facility] Start: 07-25-2022 End: 07-25-2022 Dr. Katherine Munoz Work Phone: [facility]-Emergency Department Start: 07-24-2022 End: 07-24-2022 Dr. Katherine Munoz Work Phone: [facility] Orthopaedic Specia Start: 07-21-2022 End: 07-21-2022 Emergency department patient visit GONZALO DELCID MD [facility] Start: 07-21-2022 End: 07-21-2022 Dr. Katherine Munoz Work Phone: [facility] Gastroenterology Start: 07-19-2022 End: 07-19-2022 Dr. Katherine Munoz Work Phone: [facility] Start: 07-14-2022 End: 07-14-2022 Emergency department patient visit SHILO CARBAJALMARITZAFIELD QUACH [facility] Start: 07-07-2022 End: 07-07-2022 Dr. Katherine Munoz Work Phone: [facility] Orthopaedic Specia Start: 06-21-2022 End: 06-21-2022 Dr. Katherine Munoz Work Phone: [facility] Internal Medicine Start: 06-12-2022 End: 06-12-2022 Emergency department patient visit Dr. Katherine Munoz Work Phone: [facility]-Emergency Department Start: 06-12-2022 End: 06-12-2022 Dr. Katherine Munoz Work Phone: [facility]-Emergency Department Start: 06-01-2022 End: 06-01-2022 Emergency department patient visit Dr. Katherine Munoz [facility] Phone[facility] Start: 06-01-2022 End: 06-01-2022 Dr. Katherine Munoz Work Phone: [facility]-Emergency Department Start: 05-09-2022 End: 05-09-2022 Emergency department patient visit Dr. Katherine Munoz Work Phone: [facility]-Emergency Department Start: 05-09-2022 End: 05-09-2022 Dr. Katherine Munoz Work Phone: [facility]-Emergency Department Start: 05-07-2022 End: 05-07-2022 Emergency department patient visit Dr. Katherine Munoz Work Phone: [facility]-Emergency Department Start: 05-07-2022 End: 05-07-2022 Dr. Katherine Munoz Work Phone: [facility] Start: 05-05-2022 End: 05-05-[address] Katherine Munoz Work Phone: [facility] Internal Medicine Start: 05-05-2022 End: 05-05-2022 Dr. Katherine Munoz Work Phone: [facility] Internal Medicine Start: 04-24-2022 Telephone encounter Forest Dos Santos MD Work Phone: [facility] Comment on above: Returning Patient's Call Start: 04-14-2022 End: 04-14-[address] Katherine Munoz Work Phone: [facility] Work Phone: Start: 04-14-2022 End: 04-14-[address] Katherine Munoz Work Phone: [facility]-Laboratory, Specimen Start: 04-14-2022 End: 04-14-[address] 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 (No more Meds - SPI) Start: 04-13-2022 End: 04-13-2022 Patient encounter procedure Daniella Mars APRN.HOSTESS HOST Work Phone: [facility] Comment on above: Postlaminectomy synd merrill, lumbar region (Primary Dx); Chronic bilateral low back pain with left-sided sciatica; Pain in joint, multiple sites; Myofascial pain; [facility] (current) use of opiate analgesic Start: 04-06-2022 End: 04-06-2022 Patient encounter procedure [place] Puricarla Luciano APRN.HOSTESS HOST Work Phone: [facility] Comment on above: APPOINTMENT CANCELLE D (Primary Dx) Start: 04-06-2022 End: 04-06-2022 Telemedicine consultation with patient May Ybarra Mustapha MILLER.HOSTESS HOST Work Phone: [facility] Start: 03-28-2022 Telephone encounter Daniella moss WELT INSOLE CHANNELER.HOSTESS HOST Work Phone: [facility] Comment on above: Medication Problem Start: 03-24-2022 Telephone encounter oFrest Dos Santos MD Work Phone: [facility] Comment on above: Procedure Follow Up (Dr. Dos Santos 03-23-22) Start: 03-23-2022 End: 03-23-2022 ambulatory Forest Dos Santos MD Work Phone: [facility] Comment on above: Procedure; Back Pain (LOWER - LEFT IS WORSE) Start: 03-23-2022 End: 03-23-2022 Patient encounter procedure Forest Dos Santos MD Work Phone: [facility] Start: 03-14-2022 Refill Forest Dos Santos MD Work Phone: [facility] Comment on above: Refill Request Start: 02-23-2022 Telephone encounter Daniella moss WELT INSOLE CHANNELER.HOSTESS HOST Work Phone: [facility] Comment on above: Medication Problem Injections (Injectio n questions) Start: 02-23-2022 End: 02-23-2022 Patient encounter procedure Daniella Mars WELT INSOLE CHANNELER.HOSTESS HOST Work Phone: [facility] SP[facility] Comment on above: Chronic bilateral lo w back pain with left-sided sciatica (Primary Dx); Postlaminectomy syndrome, lumbar region; Cervical spondylosis without myelopathy; Myofascial pain; Encounter for long-term (current) use of medications Start: 02-22-2022 End: 02-22-[address] Katherine Munoz Work Phone: [facility] Gastroenterology Start: 02-13-2022 Refill Trish griffin MD Work Phone: [facility] General Rheumatology and Arthritis Comment on above: Refill Request Refill Request; Refi ll Request Start: 02-02-2022 End: 02-02-2022 Emergency department patient visit Dr. Katherine Munoz Work Phone: [facility]-Emergency Department Start: 01-02-2022 End: 01-02-[address] Katherine Munoz Work Phone: [facility] Internal Medicine Start: 12-30-2021 End: 12-30-2021 Emergency department patient visit Dr. Katherine Munoz Work Phone: [facility]-Emergency Department Start: 12-23-2021 Refill Trish griffin MD Work Phone: [facility] Rheumatology and Arthritis Comment on above: Refill Request Start: 12-22-2021 End: 12-22-2021 Patient encounter procedure Daniella Mars WELT INSOLE CHANNELER.HOSTESS HOST Work Phone: [facility] Comment on above: [facility] (current) use of opiate analgesic (Primary Dx); Chronic bilateral low back pain with left-sided sciatica; Postlaminectomy syndrome, lumbar region; Cervical spondylosis without myelopathy; Pain in joint, multiple sites Start: 12-08-2021 End: 12-08-2021 Admission to same day surgery center Dr. Katherine Munoz Work Phone: [facility]-Surgical Day Care Start: 12-08-2021 End: 12-08-[address] Katherine Munoz Work Phone: [facility] Work Phone: Start: 12-03-2021 End: 12-03-2021 Emergency department patient visit SHILOJOELLEN HAM [facility] Start: 11-28-2021 Refill Trish griffin MD Work Phone: [facility] Rheumatology and Arthritis Comment on above: Refill Request Start: 11-03-2021 End: 11-03-2021 Patient encounter procedure Trish Adames MD Work Phone: [facility] Rheumatology and Arthritis Comment on above: PAT positive (Primar y Dx); Inflammatory arthritis; Systemic lupus erythematosus, unspecified SLE type, unspecified organ involvement status (HCC) Start: 10-21-2021 End: 10-21-2021 Subsequent hospital visit by physician [facility] Work Phone: Radiology Comment on above: Pain in joint, multi ple sites [M25.50] Start: 10-20-2021 End: 10-20-2021 Patient encounter procedure Forest Dos Santos MD Work Phone: [facility] SPINE [facility] Comment on above: Postlaminectomy synd merrill, lumbar region; Cervical spondylosis without myelopathy; Chronic bilateral low back pain with left-sided sciatica Start: 09-28-2021 End: 09-28-2021 Emergency department patient visit EULALIA WOODS MD [facility] Start: 09-28-2021 End: 09-28-2021 ambulatory Trish Adames MD Work Phone: [facility] General Rheumatology and Arthritis Comment on above: Pain in joint, multi ple sites (Primary Dx) Start: 09-28-2021 End: 09-28-2021 Telemedicine consultation with patient Trish Adames MD Work Phone: [facility] Start: 09-27-2021 Refill Forest Dos Santos MD Work Phone: [facility] Comment on above: Refill Request Start: 09-15-2021 End: 09-15-2021 Admission to same day surgery center Dr. Katherine Munoz Work Phone: [facility]-Surgical Day Care Start: 09-09-2021 Non-patient / Non-visit Dr. Ester Munoz Work Phone: [facility] Start: 09-09-2021 End: 09-09-2021 Admission to same day surgery center Dr. Katherine Munoz Work Phone: [facility]-Endoscopy Start: 09-08-2021 Admission to same da y surgery center Forest Dos Santos MD Work Phone: [facility] SPINE [facility] PAIN Comment on above: Surgery Start: 09-08-2021 ambulatory Forest Dos Santos MD Work Phone: [facility] Start: 09-07-2021 End: 09-07-[address] Katherine Munoz Work Phone: [facility]-Outpatient Breast Imaging Start: 08-30-[address] Fuentes Munoz Work Phone: [facility] Start: 08-30-2021 End: 08-30-2021 Encounter for general adult medical examination without abnormal findings Dr. Katherine Munoz Work Phone: [facility] Internal Medicine Start: 08-30-2021 End: 08-30-[address] Katherine Munoz Work Phone: [facility] Internal Medicine Start: 08-22-2021 Orders Only Forest Dos Santos MD Work Phone: [facility] Comment on above: Chronic bilateral lo w back pain with left-sided sciatica (Primary Dx); Postlaminectomy syndrome, lumbar region Start: 08-18-2021 Telephone encounter Forest Dos Santos MD Work Phone: [facility] SPINE [facility] PAIN Comment on above: Injections External Referrals/r esources Medication Problem ( [place] 5-325mg early refill request) Start: 08-18-2021 End: 08-18-2021 Patient encounter procedure Forest Dos Santos MD Work Phone: [facility] SPINE AND PAIN Comment on above: Bilateral carpal carlos carlos syndrome (Primary Dx); Postlaminectomy syndrome, lumbar region; Cervical spondylosis without myelopathy; [facility] (current) use of opiate analgesic; Myofascial pain; Chronic bilateral low back pain with left-sided sciatica; Encounter for long-term (current) use of medications Start: 08-16-2021 Non-patient / Non-visit Dr. Ester Munoz Work Phone: [facility] Start: 08-12-2021 End: 08-12-2021 Emergency department patient visit Dr. Katherine Munoz [facility] Phone[facility] Start: 08-11-2021 End: 08-11-[address] Katherine Munoz Work Phone: [facility]-Laboratory Start: 08-11-2021 End: 08-11-[address] Katherine Munoz Work Phone: [facility] Gastroenterology Start: 08-02-2021 End: 08-02-[address] Katherine Munoz Work Phone: [facility] Internal Medicine Start: 07-31-2021 End: 07-31-2021 Emergency department patient visit Dr. Katherine Munoz Work Phone: [facility] Start: 07-28-2021 End: 07-28-2021 Emergency department patient visit GRICELDA DE OLIVEIRA DO [facility] Start: 07-27-2021 End: 07-27-[address] Katherine Munoz Work Phone: [facility] Gastroenterology Start: 07-25-2021 End: 07-25-[address] Katherine Munoz Work Phone: [facility]-Nuclear Medicine, [facility] Start: 07-19-2021 End: 07-19-[address] Katherine Munoz [facility] Phone[facility] Start: 07-18-2021 End: 07-18-2021 Emergency department patient visit Dr. Katherine Munoz Work Phone: [facility] Start: 07-13-2021 End: 07-13-2021 Emergency department patient visit Dr. Katherine Munoz Work Phone: [facility] Start: 07-13-2021 End: 07-13-[address] Katherine Munoz Work Phone: [facility]-Laboratory Start: 07-13-2021 End: 07-13-[address] Katherine Munoz Work Phone: [facility] Gastroenterology Start: 07-11-2021 End: 07-11-2021 Subsequent hospital visit by physician [facility] Work Phone: Radiology Comment on above: Cervical spondylosis without myelopathy [M47.812] Start: 07-05-2021 End: 07-05-2021 Emergency department patient visit SHILO FATOUMATA QUACH [facility] Start: 06-22-2021 Non-patient / Non-visit Dr. Ester Munoz Work Phone: [facility] Start: 06-22-2021 End: 06-22-2021 Admission to same day surgery center Dr. Katherine Munoz Work Phone: [facility]-Endoscopy Start: 06-16-2021 End: 06-16-2021 Emergency department patient visit Dr. Katherine Munoz Work Phone: [facility]-Emergency Department Start: 06-14-2021 End: 06-14-2021 Emergency department patient visit GALDINO COOPER MD [facility] Start: 06-09-2021 End: 06-09-2021 Emergency department patient visit Dr. Katherine Munoz Work Phone: [facility]-Emergency Department Start: 06-01-2021 End: 06-01-[address] Katherine Munoz Work Phone: [facility] Internal Medicine Start: 05-22-2021 End: 05-22-2021 Emergency department patient visit GONZALO DELCID MD [facility] Start: 05-20-2021 End: 05-20-2021 SAME DAY STAY GRICELDA LIZAMA DPM [facility] Start: 05-09-2021 End: 05-09-[address] Katherine Munoz Work Phone: [facility] Gastroenterology Start: 05-06-2021 End: 05-06-2021 Admission to establishment GRICELDA LIZAMA DPM [facility] Start: 04-21-2021 End: 04-21-[address] Katherine Munoz Work Phone: [facility]-Laboratory, Specimen Start: 04-20-2021 End: 04-20-[address] Katherine Munoz Work Phone: [facility] Int Med Virtual Start: 04-12-2021 End: 04-12-2021 Emergency department patient visit Dr. Katherine Munoz Work Phone: [facility]-Emergency Department Start: 04-08-2021 End: 04-08-2021 Emergency department patient visit Dr. Katherine Munoz Work Phone: [facility]-Emergency Department Start: 04-07-2021 End: 04-07-2021 Emergency department patient visit SHILO HAM DO [facility] Start: 04-05-2021 Non-patient / Non-visit Dr. Ester Munoz Work Phone: [facility] Internal Medicine Start: 03-30-[address] Katherine Munoz Work Phone: [facility] Start: 03-23-2021 End: 03-23-[address] Katherine Munoz Work Phone: [facility] Internal Medicine Start: 03-08-2021 End: 03-08-2021 Emergency department patient visit DOC LONGORIA DO [facility] Start: 02-23-2021 End: 02-23-2021 Emergency department patient visit EULALIA WOODS MD [facility] Start: 02-08-2021 End: 02-08-2021 Emergency department patient visit GALDINO COOPER MD [facility] Start: 01-27-2021 End: 01-27-2021 Emergency department patient visit SHILO FATOUMATA DO [facility] Start: 01-23-2021 End: 01-23-2021 Emergency department patient visit ERICA PAREKH MD [facility] Start: 05-03-2018 Patient encounter procedure Afshan Laboy [facility] Start: 05-01-2018 Encounter for other preprocedural examination Lindenabdirahman Benoit [facility] Start: 05-01-2018 Patient encounter procedure Afshan Benoit [facility] Start: 10-26-2017 Patient encounter procedure Afshan Benoit [facility] Start: 10-18-2017 Patient encounter procedure Afshan Smithoney [facility] Start: 06-05-2017 Patient encounter procedure Afshan Smithoney [facility] Start: 05-30-2017 Patient encounter procedure Afshan Smithoney [facility] Start: 12-27-2016 Ambulatory [facility] Start: 11-30-2016 Ambulatory [facility] Encounter for other preprocedural examination Afshan Smithoney [facility] Procedures Date Procedure Procedure Detail Performing Clinician Start: 10-13-2024 Total cholecystectomy and exploration of common bile duct Dr. Katherine Munoz MD Work Phone: Start: 10-02-2024 Blood count smear mcrscp w/mnl difrntl wbc count Dr. Katherine Munoz MD Work Phone: Start: 10-02-[address] Joanne Munoz MD Work Phone: Start: 10-02-2024 Mean corpuscular hemoglobin concentration determination Dr. Katherine Munoz MD Work Phone: Start: 10-02-2024 Nucleated red blood cell count procedure Dr. Katherine Munoz MD Work Phone: Start: 10-02-2024 Platelet mean volume determination Dr. Fuentes Munoz MD Work Phone: Start: 10-02-[address] Fuentes Munoz MD Work Phone: Start: 09-24-2024 US scan of gallbladder Dr. Katherine Munoz MD Work Phone: Start: 09-24-2024 Blood count smear mcrscp w/mnl difrntl wbc count Dr. Katherine Munoz MD Work Phone: Start: 09-24-[address] Joanne Munoz MD Work Phone: Start: 09-24-2024 Mean corpuscular hemoglobin concentration determination Dr. Katherine Munoz MD Work Phone: Start: 09-24-2024 Nucleated red blood cell count procedure Dr. Katherine Munoz MD Work Phone: Start: 09-24-2024 Platelet mean volume determination Dr. Fuentes Munoz MD Work Phone: Start: 09-24-[address] Fuentes Munoz MD Work Phone: Start: 09-19-2024 Radionuclide study of abdomen Dr. Sandra Munoz MD Work Phone: Start: 08-27-2024 CT of chest, abdomen and pelvis without contrast Dr. Katherine Munoz MD Work Phone: Start: 08-22-[address] Katherine Munoz MD Work Phone: Start: 04-28-[address] Katherine Munoz MD Work Phone: Start: 04-28-2024 Vitamin D, 25-hydroxy measurement Dr. Ester Munoz MD Work Phone: Start: 04-28-2024 Albumin/Globulin ratio Dr. Katherine Munoz MD Work Phone: Start: 04-28-[address] Katherine Munoz MD Work Phone: Start: 04-28-2024 Blood count smear mcrscp w/mnl difrntl wbc count Dr. Katherine Munoz MD Work Phone: Start: 04-28-2024 BUN/Creatinine ratio Dr. Katherine Munoz MD Work Phone: Start: 04-28-2024 Mean corpuscular hemoglobin concentration determination Dr. Katherine Munoz MD Work Phone: Start: 04-28-2024 Measurement of C-reactive protein using high sensitivity technique Dr. Katherine Munoz MD Work Phone: Start: 04-28-2024 Measurement of renal function Dr. Sandra Munoz MD Work Phone: Start: 04-28-2024 Nucleated red blood cell count procedure Dr. Katherine Munoz MD Work Phone: Start: 04-28-2024 Platelet mean volume determination Dr. Fuentes Munoz MD Work Phone: Start: 04-28-[address] Katherine Munoz MD Work Phone: Start: 07-18-2023 CT of pelvis with contrast Dr. Katherine Munoz Work Phone: Start: 06-15-[address] Katherine Munoz Work Phone: Start: 06-08-2023 Radiography of thoracic spine Dr. Sandra Munoz Work Phone: Start: 05-09-2023 Cardiovascular stress test using pharmacologic stress agent Dr. Katherine Munoz Work Phone: Start: 12-07-2022 CT of abdomen and pelvis without contrast Dr. Katherine Munoz Work Phone: Start: 12-07-2022 US scan of gallbladder Dr. Katherine Munoz Work Phone: Start: 09-27-2022 Plain chest X-ray Dr. Katherine Munoz Work Phone: Start: 09-27-[address] Katherine Munoz Work Phone: Start: 08-14-2022 Radionuclide gastric emptying study Dr. Katherine Munoz Work Phone: Start: 07-25-2022 CT of abdomen and pelvis without contrast Dr. Katherine Munoz Work Phone: Start: 07-19-[address] Katherine Munoz Work Phone: Start: 07-19-2022 CT of limb regions Dr. Katherine Munoz Work Phone: Start: 06-12-2022 Plain X-ray of shoulder Dr. Katherine Munoz Work Phone: Start: 06-12-2022 US scan of gallbladder Dr. Katherine Munoz Work Phone: Start: 06-01-2022 X-ray of lumbar spine, two or three views Dr. Katherine Munoz Work Phone: Start: 06-01-2022 Radiography of thoracic spine Dr. Sandra Munoz Work Phone: Start: 05-07-2022 X-ray of lumbar spine, two or three views Dr. Katherine Munoz Work Phone: Start: 05-07-2022 Radiography of thoracic spine Dr. Sandra Munoz Work Phone: Start: 02-02-2022 US scan of gallbladder Dr. Katherine Munoz Work Phone: Start: 12-30-2021 X-ray of lumbar spine, two or three views Dr. Katherine Munoz Work Phone: Start: 12-30-2021 CT of head without contrast Dr. Tim Munoz Work Phone: Start: 12-08-2021 Axonica Stage 1 (Not Applicable) Dr. Arnol Munoz Work Phone: Start: 12-08-[address] Katherine Munoz Work Phone: Start: 12-08-2021 Pelvis X-ray Dr. Katherine Munoz Work Phone: Start: 10-21-2021 End: 10-21-2021 Radex foot complete minimum 3 views Trish Adames MD Work Phone: Start: 09-15-[address] Katherine Munoz Work Phone: Start: 09-15-2021 Interstim Therapy 1 (Not Applicable) Dr. Katherine Munoz Work Phone: Start: 09-15-2021 Pelvis X-ray Dr. Katherine Munoz Work Phone: Start: 09-09-[address] Katherine Munoz Work Phone: Start: 09-07-[address] Katherine Munoz Work Phone: Start: 07-25-2021 Radionuclide imaging of liver and/or biliary tract using radioactive isotope Dr. Katherine Munoz Work Phone: Start: 07-19-[address] Katherine Munoz Work Phone: Start: 07-13-2021 Computed tomography of abdomen and pelvis with intravenous contrast Dr. Katherine Munoz Work Phone: Start: 07-11-2021 Radex spine cervical 4 or 5 views Forest Dos Santos MD Work Phone: Start: 06-21-2021 End: 06-21-[address] Katherine Munoz Work Phone: Start: 06-16-2021 US scan of gallbladder Dr. Katherine Munoz Work Phone: Start: 06-09-2021 CT of abdomen and pelvis without contrast Dr. Katherine Munoz Work Phone: Start: 06-09-2021 US scan of gallbladder Dr. Katherine Munoz Work Phone: Start: 05-20-2021 Bunionectomy with osteotomy of first metatarsal GRICELDA LIZAMA DPM Comment on above: left foot Start: 04-08-2021 CT of abdomen and pelvis without contrast Dr. Katherine Munoz Work Phone: Start: 08-20-2020 Bunionectomy with osteotomy of first metatarsal ERICA PAREKH MD Comment on above: LAPIDUS FUSION RIGHT FOOT, EXCISION OF N AIL RIGHT GREAT TOE Start: 06-21-2020 Colonoscopy Forest Dos Santos MD Work Phone: Start: 05-10-2020 Knee region structure (body structure) ERICA PAREKH MD Comment on above: Left, arthroscopic Start: 12-16-2019 Hernia repair ERICA PAREKH MD Start: 11-27-2017 Lipid 1996 panel - Serum or Plasma Barry Adames MD Work Phone: Start: 08-15-2017 Adult depression screening assessment [employer] Work Phone: Start: 04-09-1996 Shoulder region structure (body structure) ERICA PAREKH MD Comment on above: RIGHT Appendectomy ERICA Tatum section ERICA MG MD Comment on above: X2 section АЛЕКСАНДР LYONElias Alli QUACH Comment on above: X3 ft (qualifier value) ERICA ESTRELLA MD Comment on above: BILATERAL 1997 Fused structure (mor phologic abnormality) ERICA PAREKH MD Comment on above: LUMBAR H/O: surgery Hx of surgical procedure Dr. Katherine Munoz Work Phone: History of repair of musculotendinous cuff of shoulder Dr. Katherine Munoz Work Phone: Hysterectomy ERICA Tatum Neurostimulation of spinal cord tissue ERICA PAREKH MD Urinary bladder stru cture (body structure) ERICA PAREKH MD Comment on above: MULTIPLE PROCEDURES AND BLADDER STIMULAT OR Plan of Treatment Date Care Activity Detail Author Start: 12-08-2024 Influenza vaccination [facility] Start: 11-07-2024 BP Controlled (<130/80) BP Controlled (<130/80) [facility] in Start: 10-21-2024 DIABETES SCREEN DIABETES SCREEN [facility] Start: 10-21-2024 Diabetes Screening Diabetes Screening [facility] Start: 10-13-2024 Anes intraperitoneal upper abdomen w/laps nos [facility] Start: 10-13-2024 Laparoscopy surg cholecystectomy [facility] Start: 10-13-2024 Patient discharge [facility] Start: 10-02-2024 [facility] Start: 09-24-2024 [facility] Start: 09-22-2024 End: 09-22-2024 Patient encounter procedure 09/22/2024 2:40 PM EDT [facility] [address] [place], [place] [address] Trish Adames MD [address] [place] [address] Has in office appt in june [facility] Comment on above: Has in office appt in june Start: 08-22-2024 Electrocardiographic procedure [facility] Start: 08-22-2024 Egd transoral biopsy single/multiple [facility] Start: 08-22-2024 Patient discharge [facility] Start: 06-23-2024 End: 06-23-2024 Patient encounter procedure 06/23/2024 2:40 PM EDT [facility] [address] [place], [place] [address] Trish Adames MD [address] [place] [address] Lets schedule in 4-5 months with me in office [facility] [place] [facility] Comment on above: Lets schedule in 4-5 months with me in o ffice Start: 06-11-2024 BP Controlled (<130/80) BP Controlled (<130/80) [facility] Start: 05-22-2024 BP Controlled (<130/80) BP Controlled (<130/80) [facility] in Start: 04-22-2024 End: 07-22-2024 25-hydroxyvitamin D3 [Mass/volume] in Serum or Plasma VITAMIN D 25 HYDROXY Lab Routine Pain in joint, multiple sites Vitamin D deficiency Expected: 04/22/2024, Expires: 07/22/2024 [facility] Comment on above: Expected: 04/22/2024, Expires: Start: 04-22-2024 End: 07-22-2024 C reactive protein [Mass/volume] in Serum or Plasma C-REACTIVE PROTEIN Lab Routine Pain in joint, multiple sites Expected: 04/22/2024, Expires: 07/22/2024 [facility] Comment on above: Expected: 04/22/2024, Expires: Start: 04-22-2024 End: 07-22-2024 CBC W Auto Differential panel - Blood COMPLETE BLOOD COUNT AND DIFFERENTIAL Lab Routine Pain in joint, multiple sites Expected: 04/22/2024, Expires: 07/22/2024 [facility] Comment on above: Expected: 04/22/2024, Expires: Start: 04-22-2024 End: 07-22-2024 Complement C3 [Mass/volume] in Serum or Plasma C3 COMPLEMENT Lab Routine Pain in joint, multiple sites Expected: 04/22/2024, Expires: 07/22/2024 [facility] Work Phone: Comment on above: Expected: 04/22/2024, Expires: Start: 04-22-2024 End: 07-22-2024 Complement C4 [Mass/volume] in Serum or Plasma C4 COMPLEMENT Lab Routine Pain in joint, multiple sites Expected: 04/22/2024, Expires: 07/22/2024 [facility] Comment on above: Expected: 04/22/2024, Expires: Start: 04-22-2024 End: 07-22-2024 Comprehensive metabolic 2000 panel - Serum or Plasma COMPREHENSIVE METABOLIC PANEL Lab Routine Pain in joint, multiple sites Expected: 04/22/2024, Expires: 07/22/2024 [facility] Comment on above: Expected: 04/22/2024, Expires: Start: 04-22-2024 End: 07-22-2024 Creatinine [Mass/volume] in Urine collected for unspecified duration CREATININE RANDOM URINE Lab Routine Pain in joint, multiple sites Expected: 04/22/2024, Expires: 07/22/2024 [facility] Comment on above: Expected: 04/22/2024, Expires: Start: 04-22-2024 End: 07-22-2024 DNA ANTIBODY DS BLD DNA ANTIBODY DS BLD Lab Routine Pain in joint, multiple sites Expected: 04/22/2024, Expires: 07/22/2024 [facility] Comment on above: Expected: 04/22/2024, Expires: Start: 04-22-2024 End: 07-22-2024 Erythrocyte sedimentation rate SEDIMENTATION RATE, WESTERGREN Lab Routine Pain in joint, multiple sites Expected: 04/22/2024, Expires: 07/22/2024 [facility] Comment on above: Expected: 04/22/2024, Expires: Start: 04-22-2024 End: 07-22-2024 Protein [Mass/volume] in Urine PROTEIN RANDOM URINE Lab Routine Pain in joint, multiple sites Expected: 04/22/2024, Expires: 07/22/2024 [facility] Comment on above: Expected: 04/22/2024, Expires: Start: 04-22-2024 End: 07-22-2024 Urinalysis complete panel - Urine URINALYSIS (WITH MICROSCOPIC) WITH CULTURE IF INDICATED Lab Routine Pain in joint, multiple sites Expected: 04/22/2024, Expires: 07/22/2024 [facility] Comment on above: Expected: 04/22/2024, Expires: Start: 04-22-2024 End: 04-22-2024 Patient encounter procedure 04/22/2024 1:00 PM [facility] [address] [place], [place] [id number] Trish Adames MD [address] [facility] [address] [place], [place] [id number] Lets schedule in 4-5 months with me in office [facility] [place] [facility] Comment on above: Lets schedule in 4-5 months with me in o ffice Start: 01-31-2024 BP Controlled (<130/80) BP Controlled (<130/80) [facility] inic Start: 01-31-2024 End: 01-31-2024 Patient encounter procedure 01/31/2024 10:00 AM EDT [facility] [address] [place], [place] [id number] Trish Adames MD [address] [place] [address] Oct end in office [facility] [place] [facility] Comment on above: Oct end in office Start: 01-08-2024 End: 01-08-2024 Patient encounter procedure 01/08/2024 9:40 AM EDT [facility] [address] [place] [address] Giuseppe Floyd PA-C [address] [place] [address] 6 wk f/up in office. pe [facility] Comment on above: 6 wk f/up in office. pe Start: 01-03-2024 End: 04-03-2024 25-hydroxyvitamin D3 [Mass/volume] in Serum or Plasma VITAMIN D 25 HYDROXY Lab Routine Pain in joint, multiple sites Vitamin D deficiency Expected: 01/03/2024, Expires: 04/03/2024 [facility] Comment on above: Expected: 01/03/2024, Expires: 4 Start: 01-03-2024 End: 04-03-2024 Angiotensin converting enzyme [Enzymatic activity/volume] in Serum or Plasma CHARISSA/ANGIOTENSIN BLD Lab Routine Pain in joint, multiple sites Expected: 01/03/2024, Expires: 04/03/2024 [facility] Comment on above: Expected: 01/03/2024, Expires: 4 Start: 01-03-2024 End: 04-03-2024 BLOOD TB SCREEN, INCUBATED BLOOD TB SCREEN, INCUBATED Lab Routine Pain in joint, multiple sites Expected: 01/03/2024, Expires: 04/03/2024 [facility] Comment on above: Expected: 01/03/2024, Expires: Start: 01-03-2024 End: 04-03-2024 C reactive protein [Mass/volume] in Serum or Plasma C-REACTIVE PROTEIN Lab Routine Pain in joint, multiple sites Expected: 01/03/2024, Expires: 04/03/2024 [facility] Comment on above: Expected: 01/03/2024, Expires: Start: 01-03-2024 End: 04-03-2024 CBC W Auto Differential panel - Blood COMPLETE BLOOD COUNT AND DIFFERENTIAL Lab Routine Pain in joint, multiple sites Expected: 01/03/2024, Expires: 04/03/2024 [facility] Work Phone: Comment on above: Expected: 01/03/2024, Expires: Start: 01-03-2024 End: 04-03-2024 Comprehensive metabolic 2000 panel - Serum or Plasma COMPREHENSIVE METABOLIC PANEL Lab Routine Pain in joint, multiple sites Expected: 01/03/2024, Expires: 04/03/2024 [facility] Comment on above: Expected: 01/03/2024, Expires: Start: 01-03-2024 End: 04-03-2024 Erythrocyte sedimentation rate SEDIMENTATION RATE, WESTERGREN Lab Routine Pain in joint, multiple sites Expected: 01/03/2024, Expires: 04/03/2024 [facility] Comment on above: Expected: 01/03/2024, Expires: Start: 01-03-2024 End: 04-03-2024 Urinalysis complete panel - Urine URINALYSIS WITH MICROSCOPIC, REFLEX CULTURE Lab Routine Pain in joint, multiple sites Expected: 01/03/2024, Expires: 04/03/2024 [facility] Comment on above: Expected: 01/03/2024, Expires: Start: 12-09-2023 Influenza vaccination [facility] Start: 11-08-2023 End: 02-07-2024 25-hydroxyvitamin D3 [Mass/volume] in Serum or Plasma VITAMIN D 25 HYDROXY Lab Routine Systemic lupus erythematosus, unspecified SLE type, unspecified organ involvement status (HCC) Vitamin D deficiency Expected: 11/08/2023, Expires: 02/07/2024 [facility] Comment on above: Expected: 11/08/2023, Expires: Start: 11-08-2023 End: 02-07-2024 CBC W Auto Differential panel - Blood COMPLETE BLOOD COUNT AND DIFFERENTIAL Lab Routine Systemic lupus erythematosus, unspecified SLE type, unspecified organ involvement status (HCC) Expected: 11/08/2023, Expires: 02/07/2024 [facility] Comment on above: Expected: 11/08/2023, Expires: Start: 11-08-2023 End: 02-07-2024 Complement C3 [Mass/volume] in Serum or Plasma C3 COMPLEMENT Lab Routine Systemic lupus erythematosus, unspecified SLE type, unspecified organ involvement status (HCC) Expected: 11/08/2023, Expires: 02/07/2024 [facility] Work Phone: Comment on above: Expected: 11/08/2023, Expires: Start: 11-08-2023 End: 02-07-2024 Complement C4 [Mass/volume] in Serum or Plasma C4 COMPLEMENT Lab Routine Systemic lupus erythematosus, unspecified SLE type, unspecified organ involvement status (HCC) Expected: 11/08/2023, Expires: 02/07/2024 [facility] Comment on above: Expected: 11/08/2023, Expires: Start: 11-08-2023 End: 02-07-2024 Comprehensive metabolic 2000 panel - Serum or Plasma COMPREHENSIVE METABOLIC PANEL Lab Routine Systemic lupus erythematosus, unspecified SLE type, unspecified organ involvement status (HCC) Expected: 11/08/2023, Expires: 02/07/2024 [facility] Comment on above: Expected: 11/08/2023, Expires: Start: 11-08-2023 End: 02-07-2024 DNA ANTIBODY DS BLD DNA ANTIBODY DS BLD Lab Routine Systemic lupus erythematosus, unspecified SLE type, unspecified organ involvement status (HCC) Expected: 11/08/2023, Expires: 02/07/2024 [facility] Comment on above: Expected: 11/08/2023, Expires: Start: 11-08-2023 End: 11-08-2023 Patient encounter procedure 11/08/2023 10:00 AM EDT Office Visit [facility] [place] [facility] [address] [place], [place] [address] Trish Adames MD [address] [place] [address] Recent labs, [place] [facility] [place] [facility] Comment on above: Recent labs, [place] Start: 11-02-2023 End: 11-02-2023 Patient encounter procedure 11/02/2023 8:00 AM EDT Office Visit Dentistry [address] [address] Avelino Cavazos, DDS [address] [place] [address] OMFS Consult - Biopsy of a oral lesion Dentistry Comment on above: OMFS Consult - Biopsy of a oral lesion Start: 11-01-2023 End: 11-01-2023 Patient encounter procedure 11/01/2023 10:00 AM EDT Office Visit [facility] [place] [facility] [address] [place] [address] Trish Adames MD [address] [place] [address] Recent labs, CT [place] [facility] [place] [facility] Comment on above: Recent labs, CT scan [place] Start: 08-30-2023 End: 08-30-2023 Patient encounter procedure 08/30/2023 12:00 PM EDT [facility] [place] [facility] [address] [place] [address] Trish Adames MD [address] [place] [address] Return in about 6 weeks (around 07/03/2023) for SLE, RA, giuseppe in office, Dr. Adames in 3 mo . [facility] Comment on above: Return in about 6 weeks (around ) for SLE, RA, giuseppe in office, Dr. Adames in 3 mo . Start: 07-31-2023 End: 10-30-2023 25-hydroxyvitamin D3 [Mass/volume] in Serum or Plasma VITAMIN D 25 HYDROXY Lab Routine Systemic lupus erythematosus, unspecified SLE type, unspecified organ involvement status (HCC) Rheumatoid arthritis involving multiple sites with positive rheumatoid factor (HCC) Long-term use of Plaquenil Inflammatory arthritis Vitamin D deficiency Oral lesion Proteinuria, unspecified type Anemia, unspecified type Expected: 07/31/2023, Expires: 10/30/2023 [facility] Comment on above: Expected: 07/31/2023, Expires: Start: 07-31-2023 End: 07-30-2024 C reactive protein [Mass/volume] in Serum or Plasma C-REACTIVE PROTEIN Lab Routine Systemic lupus erythematosus, unspecified SLE type, unspecified organ involvement status (HCC) Rheumatoid arthritis involving multiple sites with positive rheumatoid factor (HCC) Long-term use of Plaquenil Inflammatory arthritis Vitamin D deficiency Oral lesion Proteinuria, unspecified type Anemia, unspecified type Expected: 07/31/2023, Expires: 07/30/2024 [facility] Comment on above: Expected: 07/31/2023, Expires: Start: 07-31-2023 End: 07-30-2024 CBC W Auto Differential panel - Blood COMPLETE BLOOD COUNT AND DIFFERENTIAL Lab Routine Systemic lupus erythematosus, unspecified SLE type, unspecified organ involvement status (HCC) Rheumatoid arthritis involving multiple sites with positive rheumatoid factor (HCC) Long-term use of Plaquenil Inflammatory arthritis Vitamin D deficiency Oral lesion Proteinuria, unspecified type Anemia, unspecified type Expected: 07/31/2023, Expires: 07/30/2024 [facility] Work Phone: Comment on above: Expected: 07/31/2023, Expires: Start: 07-31-2023 End: 10-30-2023 Cobalamin (Vitamin B12) [Mass/volume] in Serum or Plasma VITAMIN B12 Lab Routine Systemic lupus erythematosus, unspecified SLE type, unspecified organ involvement status (HCC) Rheumatoid arthritis involving multiple sites with positive rheumatoid factor (HCC) Long-term use of Plaquenil Inflammatory arthritis Vitamin D deficiency Oral lesion Proteinuria, unspecified type Anemia, unspecified type Expected: 07/31/2023, Expires: 10/30/2023 [facility] Comment on above: Expected: 07/31/2023, Expires: Start: 07-31-2023 End: 10-30-2023 Complement C3 [Mass/volume] in Serum or Plasma C3 COMPLEMENT Lab Routine Systemic lupus erythematosus, unspecified SLE type, unspecified organ involvement status (HCC) Rheumatoid arthritis involving multiple sites with positive rheumatoid factor (HCC) Long-term use of Plaquenil Inflammatory arthritis Vitamin D deficiency Oral lesion Proteinuria, unspecified type Anemia, unspecified type Expected: 07/31/2023, Expires: 10/30/2023 [facility] Comment on above: Expected: 07/31/2023, Expires: Start: 07-31-2023 End: 10-30-2023 Complement C4 [Mass/volume] in Serum or Plasma C4 COMPLEMENT Lab Routine Systemic lupus erythematosus, unspecified SLE type, unspecified organ involvement status (HCC) Rheumatoid arthritis involving multiple sites with positive rheumatoid factor (HCC) Long-term use of Plaquenil Inflammatory arthritis Vitamin D deficiency Oral lesion Proteinuria, unspecified type Anemia, unspecified type Expected: 07/31/2023, Expires: 10/30/2023 [facility] Comment on above: Expected: 07/31/2023, Expires: Start: 07-31-2023 End: 07-30-2024 Comprehensive metabolic 2000 panel - Serum or Plasma COMPREHENSIVE METABOLIC PANEL Lab Routine Systemic lupus erythematosus, unspecified SLE type, unspecified organ involvement status (HCC) Rheumatoid arthritis involving multiple sites with positive rheumatoid factor (HCC) Long-term use of Plaquenil Inflammatory arthritis Vitamin D deficiency Oral lesion Proteinuria, unspecified type Anemia, unspecified type Expected: 07/31/2023, Expires: 07/30/2024 [facility] Comment on above: Expected: 07/31/2023, Expires: Start: 07-31-2023 End: 10-30-2023 DNA ANTIBODY DS BLD DNA ANTIBODY DS BLD Lab Routine Systemic lupus erythematosus, unspecified SLE type, unspecified organ involvement status (HCC) Rheumatoid arthritis involving multiple sites with positive rheumatoid factor (HCC) Long-term use of Plaquenil Inflammatory arthritis Vitamin D deficiency Oral lesion Proteinuria, unspecified type Anemia, unspecified type Expected: 07/31/2023, Expires: 10/30/2023 [facility] Comment on above: Expected: 07/31/2023, Expires: Start: 07-31-2023 End: 07-30-2024 Erythrocyte sedimentation rate SEDIMENTATION RATE, WESTERGREN Lab Routine Systemic lupus erythematosus, unspecified SLE type, unspecified organ involvement status (HCC) Rheumatoid arthritis involving multiple sites with positive rheumatoid factor (HCC) Long-term use of Plaquenil Inflammatory arthritis Vitamin D deficiency Oral lesion Proteinuria, unspecified type Anemia, unspecified type Expected: 07/31/2023, Expires: 07/30/2024 [facility] Comment on above: Expected: 07/31/2023, Expires: Start: 07-31-2023 End: 10-30-2023 Ferritin [Mass/volume] in Serum or Plasma FERRITIN Lab Routine Systemic lupus erythematosus, unspecified SLE type, unspecified organ involvement status (HCC) Rheumatoid arthritis involving multiple sites with positive rheumatoid factor (HCC) Long-term use of Plaquenil Inflammatory arthritis Vitamin D deficiency Oral lesion Proteinuria, unspecified type Anemia, unspecified type Expected: 07/31/2023, Expires: 10/30/2023 [facility] Comment on above: Expected: 07/31/2023, Expires: Start: 07-31-2023 End: 10-30-2023 Folate [Mass/volume] in Serum or Plasma FOLATE, SERUM Lab Routine Systemic lupus erythematosus, unspecified SLE type, unspecified organ involvement status (HCC) Rheumatoid arthritis involving multiple sites with positive rheumatoid factor (HCC) Long-term use of Plaquenil Inflammatory arthritis Vitamin D deficiency Oral lesion Proteinuria, unspecified type Anemia, unspecified type Expected: 07/31/2023, Expires: 10/30/2023 [facility] Comment on above: Expected: 07/31/2023, Expires: Start: 07-31-2023 End: 10-30-2023 Iron and Iron binding capacity panel - Serum or Plasma IRON AND TIBC Lab Routine Systemic lupus erythematosus, unspecified SLE type, unspecified organ involvement status (HCC) Rheumatoid arthritis involving multiple sites with positive rheumatoid factor (HCC) Long-term use of Plaquenil Inflammatory arthritis Vitamin D deficiency Oral lesion Proteinuria, unspecified type Anemia, unspecified type Expected: 07/31/2023, Expires: 10/30/2023 [facility] Comment on above: Expected: 07/31/2023, Expires: Start: 07-18-2023 Following clinical pathway protocol [facility] Start: 04-09-2023 Behavioral Health Screening Behavioral Health Screening [facility] Start: 04-09-2023 Depression Assessment Depression Assessment [facility] Start: 03-09-2023 Patient referral [facility] Work Phone: Start: 03-09-2023 Procedure [facility] Start: 01-30-2023 End: 05-01-2023 BLOOD TB SCREEN, INCUBATED BLOOD TB SCREEN, INCUBATED Lab Routine Systemic lupus erythematosus, unspecified SLE type, unspecified organ involvement status (HCC) Rheumatoid arthritis involving multiple sites with positive rheumatoid factor (HCC) Long-term use of Plaquenil Weakness Expected: 01/30/2023, Expires: 05/01/2023 [facility] Work Phone: Comment on above: Expected: 01/30/2023, Expires: 4 Start: 01-30-2023 End: 01-31-2024 C reactive protein [Mass/volume] in Serum or Plasma C-REACTIVE PROTEIN (CRP) Lab Routine Systemic lupus erythematosus, unspecified SLE type, unspecified organ involvement status (HCC) Rheumatoid arthritis involving multiple sites with positive rheumatoid factor (HCC) Long-term use of Plaquenil Weakness Expected: 01/30/2023, Expires: 01/31/2024 [facility] Work Phone: Comment on above: Expected: 01/30/2023, Expires: Start: 01-30-2023 End: 01-31-2024 CBC W Auto Differential panel - Blood CBC + DIFF Lab Routine Systemic lupus erythematosus, unspecified SLE type, unspecified organ involvement status (HCC) Rheumatoid arthritis involving multiple sites with positive rheumatoid factor (HCC) Long-term use of Plaquenil Weakness Expected: 01/30/2023, Expires: 01/31/2024 [facility] Work Phone: Comment on above: Expected: 01/30/2023, Expires: Start: 01-30-2023 End: 05-01-2023 Complement C3 [Mass/volume] in Serum or Plasma C3 COMPLEMENT BLD Lab Routine Systemic lupus erythematosus, unspecified SLE type, unspecified organ involvement status (HCC) Rheumatoid arthritis involving multiple sites with positive rheumatoid factor (HCC) Long-term use of Plaquenil Weakness Expected: 01/30/2023, Expires: 05/01/2023 [facility] Work Phone: Comment on above: Expected: 01/30/2023, Expires: Start: 01-30-2023 End: 05-01-2023 Complement C4 [Mass/volume] in Serum or Plasma C4 COMPLEMENT BLD Lab Routine Systemic lupus erythematosus, unspecified SLE type, unspecified organ involvement status (HCC) Rheumatoid arthritis involving multiple sites with positive rheumatoid factor (HCC) Long-term use of Plaquenil Weakness Expected: 01/30/2023, Expires: 05/01/2023 [facility] Work Phone: Comment on above: Expected: 01/30/2023, Expires: Start: 01-30-2023 End: 01-31-2024 Comprehensive metabolic 2000 panel - Serum or Plasma COMP METABOLIC PANEL Lab Routine Systemic lupus erythematosus, unspecified SLE type, unspecified organ involvement status (HCC) Rheumatoid arthritis involving multiple sites with positive rheumatoid factor (HCC) Long-term use of Plaquenil Weakness Expected: 01/30/2023, Expires: 01/31/2024 [facility] Work Phone: Comment on above: Expected: 01/30/2023, Expires: 4 Start: 01-30-2023 End: 05-01-2023 Creatine kinase [Enzymatic activity/volume] in Serum or Plasma CK CREATINE KINASE Lab Routine Systemic lupus erythematosus, unspecified SLE type, unspecified organ involvement status (HCC) Rheumatoid arthritis involving multiple sites with positive rheumatoid factor (HCC) Long-term use of Plaquenil Weakness Expected: 01/30/2023, Expires: 05/01/2023 [facility] Work Phone: Comment on above: Expected: 01/30/2023, Expires: 4 Start: 01-30-2023 End: 05-01-2023 DNA ANTIBODY DS BLD DNA ANTIBODY DS BLD Lab Routine Systemic lupus erythematosus, unspecified SLE type, unspecified organ involvement status (HCC) Rheumatoid arthritis involving multiple sites with positive rheumatoid factor (HCC) Long-term use of Plaquenil Weakness Expected: 01/30/2023, Expires: 05/01/2023 [facility] Work Phone: Comment on above: Expected: 01/30/2023, Expires: 4 Start: 01-30-2023 End: 05-01-2023 DNA double strand Ab [Presence] in Serum by Immunofluorescence (IF) Crithidia luciliae CRITHIDIA LUCILIAE Lab Routine Systemic lupus erythematosus, unspecified SLE type, unspecified organ involvement status (HCC) Rheumatoid arthritis involving multiple sites with positive rheumatoid factor (HCC) Long-term use of Plaquenil Weakness Expected: 01/30/2023, Expires: 05/01/2023 [facility] Work Phone: Comment on above: Expected: 01/30/2023, Expires: 4 Start: 01-30-2023 End: 01-31-2024 Erythrocyte sedimentation rate SED RATE WESTERGREN Lab Routine Systemic lupus erythematosus, unspecified SLE type, unspecified organ involvement status (HCC) Rheumatoid arthritis involving multiple sites with positive rheumatoid factor (HCC) Long-term use of Plaquenil Weakness Expected: 01/30/2023, Expires: 01/31/2024 [facility] Work Phone: Comment on above: Expected: 01/30/2023, Expires: 4 Start: 01-30-2023 End: 01-31-2024 Hepatitis B virus core Ab [Presence] in Serum HEP B CORE AB TOTAL Lab Routine Systemic lupus erythematosus, unspecified SLE type, unspecified organ involvement status (HCC) Rheumatoid arthritis involving multiple sites with positive rheumatoid factor (HCC) Long-term use of Plaquenil Weakness Expected: 01/30/2023, Expires: 01/31/2024 [facility] Work Phone: Comment on above: Expected: 01/30/2023, Expires: 4 Start: 01-30-2023 End: 05-01-2023 Hepatitis B virus surface Ab [Presence] in Serum HEP B SURF AB Lab Routine Systemic lupus erythematosus, unspecified SLE type, unspecified organ involvement status (HCC) Rheumatoid arthritis involving multiple sites with positive rheumatoid factor (HCC) Long-term use of Plaquenil Weakness Expected: 01/30/2023, Expires: 05/01/2023 [facility] Work Phone: Comment on above: Expected: 01/30/2023, Expires: Start: 01-30-2023 End: 01-31-2024 Hepatitis B virus surface Ag [Presence] in Serum HEP B SURF AG SCRN Lab Routine Systemic lupus erythematosus, unspecified SLE type, unspecified organ involvement status (HCC) Rheumatoid arthritis involving multiple sites with positive rheumatoid factor (HCC) Long-term use of Plaquenil Weakness Expected: 01/30/2023, Expires: 01/31/2024 [facility] Work Phone: Comment on above: Expected: 01/30/2023, Expires: 4 Start: 01-30-2023 End: 01-31-2024 Hepatitis C virus Ab [Presence] in Serum HEPATITIS C ANTIBODY IA WITH CONFIRMATION Lab Routine Systemic lupus erythematosus, unspecified SLE type, unspecified organ involvement status (HCC) Rheumatoid arthritis involving multiple sites with positive rheumatoid factor (HCC) Long-term use of Plaquenil Weakness Expected: 01/30/2023, Expires: 01/31/2024 [facility] Work Phone: Comment on above: Expected: 01/30/2023, Expires: 4 Start: 01-30-2023 End: 05-01-2023 Urinalysis complete panel - Urine URINALYSIS, WITH MICROSCOPIC Lab Routine Systemic lupus erythematosus, unspecified SLE type, unspecified organ involvement status (HCC) Rheumatoid arthritis involving multiple sites with positive rheumatoid factor (HCC) Long-term use of Plaquenil Weakness Expected: 01/30/2023, Expires: 05/01/2023 [facility] Work Phone: Comment on above: Expected: 01/30/2023, Expires: Start: 12-08-2022 Covid-19 Vaccine () Covid-19 Vaccine () [facility] Start: 12-08-2022 Influenza vaccination [facility] Start: 12-08-2022 Urine microalbumin profile [facility] Start: 11-27-2022 Lipid 1996 panel - Serum or Plasma Lipid Screening [facility] Start: 11-27-2022 Lipid panel Lipid Screening [facility] Start: 11-27-2022 LIPID SCREEN LIPID SCREEN [facility] Start: 11-12-2022 COLORECTAL CANCER SCREENING COLORECTAL CANCER SCREENING [facility] Start: 11-12-2022 Screening for malignant neoplasm of colon [facility] Start: 11-12-2022 SIGMOIDOSCOPY SIGMOIDOSCOPY [facility] Start: 11-03-2022 BP CONTROLLED (<130/80) BP CONTROLLED (<130/80) [facility] Start: 09-27-2022 Assay of lipase [facility] Start: 09-27-2022 Blood count complete auto&auto difrntl wbc [facility] Start: 09-27-2022 Comprehensive metabolic panel [facility] Start: 09-27-2022 Egd dilation gastric/duodenal stricture [facility] Start: 09-27-2022 Egd insert guide wire dilator passage esophagus [facility] Start: 09-27-2022 Egd transoral biopsy single/multiple [facility] Start: 09-27-2022 Emergency department visit moderate severity [facility] Start: 09-27-2022 Iv infusion therapy/prophylaxis /dx 1st to 1 hr [facility] Start: 09-27-2022 Radiologic exam chest single view [facility] Start: 09-27-2022 Therapeutic injection iv push each new drug [facility] Start: 09-27-2022 Patient discharge [facility] Start: 08-15-2022 Patient referral [facility] Work Phone: Start: 07-24-2022 Patient referral [facility] Work Phone: Start: 07-19-2022 Injection shoulder arthrography/ ct/mri arthg [facility] Start: 06-21-2022 Patient referral [facility] Work Phone: Start: 06-01-2022 Radex spine thoracic 2 views [facility] Start: 04-14-2022 Patient referral [facility] Work Phone: Start: 04-14-2022 Sars-cov-2 detection by dna/rna SARS-COV-2 COVID-19 AMP PRB [facility] Start: 04-09-2022 DEPRESSION ASSESSMENT DEPRESSION ASSESSMENT [facility] Start: 12-08-2021 Anes integ musc & nrv head neck&posterior trunk ANESTH HEAD/NECK/PTRUNK [facility] Work Phone: Start: 12-08-2021 Influenza vaccination [facility] Start: 12-08-2021 Revision/rmvl peripheral/gastric npgr REVISE/RMV PN/GASTR STIMUL [facility] Work Phone: Start: 12-08-2021 Revj/rmvl peripheral neurostimulator electrode REVISE/REMOVE NEUROELECTRODE [facility] Work Phone: Start: 12-08-2021 Patient discharge [facility] Work Phone: Start: 09-28-2021 End: 11-28-2021 25-hydroxyvitamin D3 [Mass/volume] in Serum or Plasma VITAMIN D 25 HYDROXY Lab Routine Pain in joint, multiple sites Expected: 09/28/2021, Expires: 11/28/2021 [facility] Work Phone: Comment on above: Expected: 09/28/2021, Expires: Start: 09-28-2021 End: 11-28-2021 PAT BY IFA SCREEN PAT BY IFA SCREEN Lab Routine Pain in joint, multiple sites Expected: 09/28/2021, Expires: 11/28/2021 [facility] Work Phone: Comment on above: Expected: 09/28/2021, Expires: 2 Start: 09-28-2021 End: 11-28-2021 ANTI NEUTRO CYTO AB ANTI NEUTRO CYTO AB Lab Routine Pain in joint, multiple sites Expected: 09/28/2021, Expires: 11/28/2021 [facility] Work Phone: Comment on above: Expected: 09/28/2021, Expires: 2 Start: 09-28-2021 End: 11-28-2021 CBC W Auto Differential panel - Blood CBC + DIFF Lab Routine Pain in joint, multiple sites Expected: 09/28/2021, Expires: 11/28/2021 [facility] Work Phone: Comment on above: Expected: 09/28/2021, Expires: 2 Start: 09-28-2021 End: 11-28-2021 Comprehensive metabolic 2000 panel - Serum or Plasma COMP METABOLIC PANEL Lab Routine Pain in joint, multiple sites Expected: 09/28/2021, Expires: 11/28/2021 [facility] Work Phone: Comment on above: Expected: 09/28/2021, Expires: 2 Start: 09-28-2021 End: 11-28-2021 Creatine kinase [Enzymatic activity/volume] in Serum or Plasma CK CREATINE KINASE Lab Routine Pain in joint, multiple sites Expected: 09/28/2021, Expires: 11/28/2021 [facility] Work Phone: Comment on above: Expected: 09/28/2021, Expires: 2 Start: 09-28-2021 End: 11-28-2021 Creatinine [Mass/volume] in Urine collected for unspecified duration CREATININE RANDOM UR Lab Routine Pain in joint, multiple sites Expected: 09/28/2021, Expires: 11/28/2021 [facility] Work Phone: Comment on above: Expected: 09/28/2021, Expires: 2 Start: 09-28-2021 End: 11-28-2021 Cyclic citrullinated peptide IgG Ab [Units/volume] in Serum or Plasma CCP ANTIBODY IGG Lab Routine Pain in joint, multiple sites Expected: 09/28/2021, Expires: 11/28/2021 [facility] Work Phone: Comment on above: Expected: 09/28/2021, Expires: 2 Start: 09-28-2021 End: 11-28-2021 DNA ANTIBODY DS BLD DNA ANTIBODY DS BLD Lab Routine Pain in joint, multiple sites Expected: 09/28/2021, Expires: 11/28/2021 [facility] Work Phone: Comment on above: Expected: 09/28/2021, Expires: 2 Start: 09-28-2021 End: 11-28-2021 Ferritin [Mass/volume] in Serum or Plasma FERRITIN BLD Lab Routine Pain in joint, multiple sites Expected: 09/28/2021, Expires: 11/28/2021 [facility] Work Phone: Comment on above: Expected: 09/28/2021, Expires: 2 Start: 09-28-2021 End: 11-28-2021 Iron and Iron binding capacity panel - Serum or Plasma IRON + TIBC Lab Routine Pain in joint, multiple sites Expected: 09/28/2021, Expires: 11/28/2021 [facility] Work Phone: Comment on above: Expected: 09/28/2021, Expires: 2 Start: 09-28-2021 End: 11-28-2021 Protein [Mass/volume] in Urine PROTEIN RANDOM UR Lab Routine Pain in joint, multiple sites Expected: 09/28/2021, Expires: 11/28/2021 [facility] Work Phone: Comment on above: Expected: 09/28/2021, Expires: 2 Start: 09-28-2021 End: 11-28-2021 Rheumatoid factor [Units/volume] in Serum or Plasma RHEUMATOID FACTOR BL Lab Routine Pain in joint, multiple sites Expected: 09/28/2021, Expires: 11/28/2021 [facility] Work Phone: Comment on above: Expected: 09/28/2021, Expires: 2 Start: 09-28-2021 End: 11-28-2021 Ribonucleoprotein extractable nuclear Ab [Units/volume] in Serum [employer]ICE ESTIMATOR ANTIBODY BLOOD Lab Routine Pain in joint, multiple sites Expected: 09/28/2021, Expires: 11/28/2021 [facility] Work Phone: Comment on above: Expected: 09/28/2021, Expires: 2 Start: 09-28-2021 End: 11-28-2021 SJOGREN ABS SSA/SSB SJOGREN ABS SSA/SSB Lab Routine Pain in joint, multiple sites Expected: 09/28/2021, Expires: 11/28/2021 [facility] Work Phone: Comment on above: Expected: 09/28/2021, Expires: 2 Start: 09-28-2021 End: 11-28-2021 [place] extractable nuclear IgG Ab [Units/volume] in Serum CUBA IGG AB Lab Routine Pain in joint, multiple sites Expected: 09/28/2021, Expires: 11/28/2021 [facility] Work Phone: Comment on above: Expected: 09/28/2021, Expires: 2 Start: 09-28-2021 End: 11-28-2021 Urinalysis complete panel - Urine UA WITH CULTURE IF INDICATED Lab Routine Pain in joint, multiple sites Expected: 09/28/2021, Expires: 11/28/2021 [facility] Work Phone: Comment on above: Expected: 09/28/2021, Expires: 2 Start: 09-15-2021 Patient discharge [facility] Work Phone: Start: 09-15-2021 Pelvis X-ray Pelvis 1 or 2 Views [facility] Work Phone: Start: 09-15-2021 Anes integ extremities ant trunk & perineum nos ANESTH SKIN EXT/PER/ATRUNK [facility] Work Phone: Start: 09-15-2021 Insertion/rplcmt peripheral/gastric npgr INSRT/REDO PN/GASTR STIMUL [facility] Work Phone: Start: 09-15-2021 Unlisted px skin muc membrane & subq tissue SKIN TISSUE PROCEDURE [facility] Work Phone: Start: 09-09-2021 Egd transoral biopsy single/multiple EGD BIOPSY SINGLE/MULTIPLE [facility] Work Phone: Start: 09-09-2021 Patient discharge [facility] Work Phone: Start: 2021 COLOGUARD (FIT-DNA) COLOGUARD (FIT-DNA) [facility] Start: 2021 Colonoscopy COLONOSCOPY [facility] Start: [address] COLONOGRAPHY [facility] Start: 2021 DIABETES SCREEN DIABETES SCREEN [facility] Start: 2021 FECAL OCCULT BLOOD FECAL OCCULT BLOOD [facility] Start: 2021 Screening for malignant neoplasm of colon [facility] Start: 08-18-2021 End: 10-18-2021 BENZO CONFIRM, URINE [facility] Work Phone: Comment on above: Expected: 08/18/2021, Expires: 2 Start: 08-18-2021 End: 10-18-2021 ETHANOL CONFIRMATION, URINE [facility] Work Phone: Comment on above: Expected: 08/18/2021, Expires: 2 Start: 08-18-2021 End: 10-18-2021 PAIN PANEL, UR QUANT [facility] Work Phone: Comment on above: Expected: 08/18/2021, Expires: 2 Start: 05-10-2022 Patient referral [facility] Work Phone: Start: 07-13-2021 Acute hepatitis panel ACUTE HEPATITIS PANEL [facility] Work Phone: Start: 07-13-2021 Angiotensin i-converting enzyme ANGIOTENSIN I ENZYME TEST [facility] Work Phone: Start: 07-13-2021 Antibody hiv-1&hiv-2 single result HIV-1/HIV-2 1 RESULT ANTBDY [facility] Work Phone: Start: 07-13-2021 Assay of ammonia ASSAY OF AMMONIA [facility] Work Phone: Start: 07-13-2021 Assay of copper ASSAY OF COPPER [facility] Work Phone: Start: 07-13-2021 Assay of ferritin ASSAY OF FERRITIN [facility] Work Phone: Start: 07-13-2021 Assay of glutamyltrase gamma ASSAY OF GGT [facility] Work Phone: Start: 07-13-2021 Assay of haptoglobin quantitative ASSAY OF HAPTOGLOBIN QUANT [facility] Work Phone: Start: 07-13-2021 C-reactive protein C-REACTIVE PROTEIN [facility] Work Phone: Start: 07-13-2021 Ceruloplasmin ASSAY OF CERULOPLASMIN [facility] Work Phone: Start: 07-13-2021 Collection venous blood venipuncture ROUTINE VENIPUNCTURE [facility] Work Phone: Start: 07-13-2021 Dna antibody jamul/double stranded DNA ANTIBODY SELAWIK [facility] Work Phone: Start: 07-13-2021 Extractable nuclear antigen antibody any method NUCLEAR ANTIGEN ANTIBODY [facility] Work Phone: Start: 07-13-2021 Fluorescent nonnfct agt antb titer ea antibody FLUORESCENT ANTIBODY TITER [facility] Work Phone: Start: 07-13-2021 Hemoglobin glycosylated a1c GLYCOSYLATED HEMOGLOBIN TEST [facility] Work Phone: Start: 07-13-2021 Hepatic function panel HEPATIC FUNCTION PANEL [facility] Work Phone: Start: 07-13-2021 Immunoassay analyte qual/semiqual multiple step IMMUNOASSAY NONANTIBODY [facility] Work Phone: Start: 07-13-2021 Lactate dehydrogenase ldh LACTATE (LD) (LDH) ENZYME [facility] Work Phone: Start: 07-13-2021 Prothrombin time PROTHROMBIN TIME [facility] Work Phone: Start: 07-13-2021 Sedimentation rate rbc automated RBC SED RATE AUTOMATED [facility] Work Phone: Start: 06-22-2021 Colonoscopy w/biopsy single/multiple COLONOSCOPY AND BIOPSY [facility] Work Phone: Start: 06-22-2021 Colsc flx w/rmvl of tumor polyp lesion snare tq COLONOSCOPY W/LESION REMOVAL [facility] Work Phone: Start: 06-22-2021 Egd transoral biopsy single/multiple EGD BIOPSY SINGLE/MULTIPLE [facility] Work Phone: Start: 04-21-2021 Sars-cov-2 detection by dna/rna SARS-COV-2 COVID-19 AMP PRB [facility] Work Phone: Start: 04-09-2021 DEPRESSION ASSESSMENT DEPRESSION ASSESSMENT [facility] Start: 01-04-2021 COVID-19 VACCINE (3 - Booster for Pfizer series) COVID-19 VACCINE (3 - Booster for Pfizer series) [facility] Start: 09-29-2020 COVID-19 VACCINE (3 - Booster for Pfizer series) COVID-19 VACCINE (3 - Booster for Pfizer series) [facility] Start: 09-01-2020 COVID-19 VACCINE (3 - Pfizer risk series) COVID-19 VACCINE (3 - Pfizer risk series) [facility] Start: 07-16-2019 ANNUAL PCP TEAM CHRONIC DISEASE VISIT ANNUAL PCP TEAM CHRONIC DISEASE VISIT [facility] Start: 08-15-2018 Adult depression screening assessment DEPRESSION SCREENING [facility] Start: 06-15-2018 HEPATITIS B (2 of 3 - 3-dose series) [facility] Start: 06-15-2018 Hepatitis B Vaccine (2 of 3 - 19+ 3-dose series) Hepatitis B Vaccine (2 of 3 - 19+ 3-dose series) [facility] Start: 05-24-2018 PNEUMOCOCCAL (2 - PCV) PNEUMOCOCCAL (2 - PCV) [facility] Start: 05-24-2018 Pneumococcal vaccination [facility] Start: 2016 Mammography [facility] Start: 2016 Screening for malignant neoplasm of breast Mammogram Screening [facility] Start: 2006 HPV TESTING HPV TESTING [facility] Start: 2006 Screening for malignant neoplasm of cervix HPV Testing [facility] Start: 1997 PAP TESTING PAP TESTING [facility] Start: 1997 Screening for malignant neoplasm of cervix Pap Testing [facility] Start: 09-04-1995 SHINGRIX VACCINE (1 of 2) SHINGRIX VACCINE (1 of 2) [facility] [facility] Start: 1994 Annual PCP Team Chronic Disease Visit Annual PCP Team Chronic Disease Visit [facility] Start: 1994 BP CONTROLLED (<130/80) BP CONTROLLED (<130/80) [facility] Start: 1994 Depression Screening Depression Screening [facility] Start: 1994 HEPATITIS C SCREENING HEPATITIS C SCREENING [facility] Start: 1994 Hepatitis C screening Hepatitis C Screening [facility] Start: 1994 HIV SCREENING HIV SCREENING [facility] Start: 1994 HIV screening HIV Screening [facility] Start: 09-04-1987 Screening for malignant neoplasm of cervix Cervical Cancer Screening [facility] Ambulatory ECG [facility] End: 05-21-2024 C reactive protein [Mass/volume] in Serum or Plasma C-REACTIVE PROTEIN (CRP) Lab Routine Systemic lupus erythematosus, unspecified SLE type, unspecified organ involvement status (HCC) Rheumatoid arthritis involving multiple sites with positive rheumatoid factor (HCC) Proteinuria, unspecified type Long-term use of Plaquenil Inflammatory arthritis Vitamin D deficiency Once per month for 12 Occurrences starting 05/22/2023 until 05/21/2024 [facility] Work Phone: Comment on above: Once per month for 12 Occurrences starti ng 05/22/2023 until 05/21/2024 End: 05-21-2024 CBC W Auto Differential panel - Blood CBC + DIFF Lab Routine Systemic lupus erythematosus, unspecified SLE type, unspecified organ involvement status (HCC) Rheumatoid arthritis involving multiple sites with positive rheumatoid factor (HCC) Proteinuria, unspecified type Long-term use of Plaquenil Inflammatory arthritis Vitamin D deficiency Once per month for 12 Occurrences starting 05/22/2023 until 05/21/2024 [facility] Work Phone: Comment on above: Once per month for 12 Occurrences starti ng 05/22/2023 until 05/21/2024 End: 05-21-2024 Complement C3 [Mass/volume] in Serum or Plasma C3 COMPLEMENT BLD Lab Routine Systemic lupus erythematosus, unspecified SLE type, unspecified organ involvement status (HCC) Rheumatoid arthritis involving multiple sites with positive rheumatoid factor (HCC) Proteinuria, unspecified type Long-term use of Plaquenil Inflammatory arthritis Vitamin D deficiency Every 6 months for 4 Occurrences starting 05/22/2023 until 05/21/2024 [facility] Work Phone: Comment on above: Every 6 months for 4 Occurrences startin g 05/22/2023 until 05/21/2024 End: 05-21-2024 Complement C4 [Mass/volume] in Serum or Plasma C4 COMPLEMENT BLD Lab Routine Systemic lupus erythematosus, unspecified SLE type, unspecified organ involvement status (HCC) Rheumatoid arthritis involving multiple sites with positive rheumatoid factor (HCC) Proteinuria, unspecified type Long-term use of Plaquenil Inflammatory arthritis Vitamin D deficiency Every 6 months for 4 Occurrences starting 05/22/2023 until 05/21/2024 [facility] Work Phone: Comment on above: Every 6 months for 4 Occurrences startin g 05/22/2023 until 05/21/2024 End: 05-21-2024 Comprehensive metabolic 2000 panel - Serum or Plasma COMP METABOLIC PANEL Lab Routine Systemic lupus erythematosus, unspecified SLE type, unspecified organ involvement status (HCC) Rheumatoid arthritis involving multiple sites with positive rheumatoid factor (HCC) Proteinuria, unspecified type Long-term use of Plaquenil Inflammatory arthritis Vitamin D deficiency Once per month for 12 Occurrences starting 05/22/2023 until 05/21/2024 [facility] Work Phone: Comment on above: Once per month for 12 Occurrences starti ng 05/22/2023 until 05/21/2024 End: 05-21-2024 DNA ANTIBODY DS BLD DNA ANTIBODY DS BLD Lab Routine Systemic lupus erythematosus, unspecified SLE type, unspecified organ involvement status (HCC) Rheumatoid arthritis involving multiple sites with positive rheumatoid factor (HCC) Proteinuria, unspecified type Long-term use of Plaquenil Inflammatory arthritis Vitamin D deficiency Every 6 months for 4 Occurrences starting 05/22/2023 until 05/21/2024 [facility] Work Phone: Comment on above: Every 6 months for 4 Occurrences startin g 05/22/2023 until 05/21/2024 Elastase, pancreatic (el-1), fecal; quantitative [facility] End: 05-21-2024 Erythrocyte sedimentation rate SED RATE WESTERGREN Lab Routine Systemic lupus erythematosus, unspecified SLE type, unspecified organ involvement status (HCC) Rheumatoid arthritis involving multiple sites with positive rheumatoid factor (HCC) Proteinuria, unspecified type Long-term use of Plaquenil Inflammatory arthritis Vitamin D deficiency Once per month for 12 Occurrences starting 05/22/2023 until 05/21/2024 [facility] Work Phone: Comment on above: Once per month for 12 Occurrences starti ng 05/22/2023 until 05/21/2024 Fat [Presence] in Stool [facility] Breast - bilatera l Screening [facility] MR Lower Extremity Joint [facility] N[facility]x dx/ther sbst int rlmnr lmbr/sac w/img gdn EPI LUMBAR OR SACRAL W/IMAGING Procedures Routine Postlaminectomy syndrome, lumbar region Ordered: 03/23/2022 [facility] Work Phone: Comment on above: Ordered: 03/23/2022 Patient Education [facility] Work Phone: Patient referral [facility] Work Phone: Porphyrin fractions panel - 24 hour Urine [facility] Work Phone: End: 10-28-2022 Radiologic examination sacroiliac jnts <3 views XR SACROILIAC JOINTS 2V AP PELVIS/FERGUESON Radiology Routine Pain in joint, multiple sites 1 Occurrences starting 09/28/2021 until 10/28/2022 [facility] Work Phone: Comment on above: 1 Occurrences starting 09/28/2021 until 10/28/2022 Radionuclide gastric emptying study [facility] TOX SCREEN ROUT UR TOX SCREEN RO UT UR Lab Routine 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 Chronic bilateral low back pain with left-sided sciatica Ordered: 12/22/2021 [facility] Work Phone: Comment on above: Ordered: 12/22/2021 TOX SCREEN ROUT UR TOX SCREEN RO UT UR Lab Routine Chronic bilateral low back pain with left-sided sciatica [facility] (current) use of opiate analgesic Ordered: 04/13/2022 [facility] Work Phone: Comment on above: Ordered: 04/13/2022 End: 10-28-2022 XR FOOT GENERAL 3V AP/LAT/OBL LEFT XR FOOT GENERAL 3V AP/LAT/OBL LEFT Radiology Routine Pain in joint, multiple sites 1 Occurrences starting 09/28/2021 until 10/28/2022 [facility] Work Phone: Comment on above: 1 Occurrences starting 09/28/2021 until 10/28/2022 XR FOOT GENERAL 3V AP/LAT/OBL LEFT XR FOOT GENERAL 3V AP/LAT/OBL LEFT Radiology Routine Pain in joint, multiple sites 10/21/2021 11:15 AM EDT [facility] Work Phone: End: 10-28-2022 XR FOOT GENERAL 3V AP/LAT/OBL RIGHT XR FOOT GENERAL 3V AP/LAT/OBL RIGHT Radiology Routine Pain in joint, multiple sites 1 Occurrences starting 09/28/2021 until 10/28/2022 [facility] Work Phone: Comment on above: 1 Occurrences starting 09/28/2021 until 10/28/2022 XR FOOT GENERAL 3V AP/LAT/OBL RIGHT XR FOOT GENERAL 3V AP/LAT/OBL RIGHT Radiology Routine Pain in joint, multiple sites 10/21/2021 11:15 AM EDT [facility] Work Phone: End: 10-28-2022 XR HAND GENERAL 3V PA/LAT/OBL LEFT XR HAND GENERAL 3V PA/LAT/OBL LEFT Radiology Routine Pain in joint, multiple sites 1 Occurrences starting 09/28/2021 until 10/28/2022 [facility] Work Phone: Comment on above: 1 Occurrences starting 09/28/2021 until 10/28/2022 End: 10-28-2022 XR HAND GENERAL 3V PA/LAT/OBL RIGHT XR HAND GENERAL 3V PA/LAT/OBL RIGHT Radiology Routine Pain in joint, multiple sites 1 Occurrences starting 09/28/2021 until 10/28/2022 [facility] Work Phone: Comment on above: 1 Occurrences starting 09/28/2021 until 10/28/2022 [facility] Immunizations Immunization Date Immunization Notes Care Provider [facility] 04-28-2024 influenza, injectabl e, madin viet canine kidney, preservative free Dr. Katherine Munoz MD Work Phone: [facility] 08-04-2020 SARS-CoV-2 (COVID-19 ) mRNA BNT-162b2 rachellx ERICA PAREKH MD [facility] Comment on above: Result Comment: 2020: TPV40 07-14-2020 SARS-CoV-2 (COVID-19 ) mRNA BNT-162b2 jana PAREKH MD [facility] Comment on above: Result Comment: 2020: TPV40 12-31-2019 influenza virus vacc ine, unspecified formulation ERICA PAREKH MD [facility] 12-31-2019 influenza, injectable,quadrivalent, preservative free, pediatric Dr. Katherine Munoz Work Phone: [facility] 12-31-2019 influenza, seasonal, injectable, preservative free Dr. Katherine Munoz MD Work Phone: [facility] 12-31-2019 Flucelvax Quad 2019- 2020 (PF) (flu vac qs 2020(4 yr up)CD(PF)) 60 mcg ([address] Katherine Munoz Work Phone: [facility] Work Phone: 03-18-2019 Flucelvax Quad 2018- 2019 (PF) (flu vac qs 2019(4 yr up)CD(PF)) 60 mcg ([address] Katherine Munoz Work Phone: [facility] Work Phone: 05-18-2018 hepatitis B immune globulin [employer] Work Phone: [facility] 05-18-2018 hepatitis B vaccine, adult dosage ERICA PAREKH MD [facility] 05-18-2018 hepatitis B vaccine, unspecified formulation Trish Adames MD Work Phone: [facility] 04-27-2018 influenza virus vacc ine, unspecified formulation [employer] Work Phone: [facility] 05-24-2017 influenza virus vacc ine, unspecified formulation ERICA PAREKH MD [facility] 05-24-2017 influenza, seasonal, injectable, preservative free [employer] Work Phone: [facility] 05-24-2017 pneumococcal polysaccharide vaccine, 23 valent ERICA PAREKH MD [facility] 05-09-2016 influenza virus vacc ine, unspecified formulation ERICA PAREKH MD [facility] 05-09-2016 influenza, injectabl e, quadrivalent, preservative free [employer] Work Phone: [facility] 01-27-2015 influenza virus vacc ine, whole virus [employer] Work Phone: [facility] 01-27-2015 influenza, injectabl e, quadrivalent, preservative free Dr. Katherine Munoz MD Work Phone: [facility] 01-27-2015 influenza, seasonal, injectable [employer] Work Phone: [facility] 12-08-2012 tetanus toxoid, redu janessa diphtheria toxoid, and acellular pertussis vaccine, adsorbed ERICA PAREKH MD [facility] Payers Date Payer Category Payer Self-pay [id number] 2023 Unknown [id number] 2022 Unknown [id number] 2016 Medicaid [facility] [employer] [facility] MEDICAID [id number] 2016-Present [phone] [address] [place] [address] Medicaid [id number] 2016 Medicaid [id number] [id number]. [id number] 1976 Unknown [id number] 2.16.840.1.414389.3.579.2. 1976 Unknown [id number] 2.16.840.1.957218.3.579.2. 1976 Unknown [id number] 2.16.840.1.365089.3.579.2. 1976 Unknown [id number] 2.840.1.450845.3.579.2. 1976 Unknown [id number] 2.16840.1.852922.3.579.2. 1976 Unknown [id number] 2.840.1.348591.3.579.2 1976 Unknown [id number] 2.840.1.264277.3.579.2 1976 Unknown [id number] 05.25.830.1.911330.3.579.2 1976 Unknown [id number] 2.840.1.060712.3.579.2 1976 Unknown [id number] .840.1.305698.3.579.2 1976 Unknown [id number] .840.1.882139.3.579.2. 1976 Unknown [id number] 05.25.830.1.335875.3.579.2 1976 Unknown [id number] 2.840.1.969186.3.579.2 1976 Unknown [id number] 2.840.1.517211.3.579.2 1976 Unknown [id number] 2.840.1.456046.3.579.2 1976 Unknown [id number] 2.840.1.139088.3.579.2 1976 Unknown [id number] 2840.1.998327.3.579.2. 627 1976 Unknown [id number] 2.840.1.638921.3.579.2. 1976 Unknown [id number] 2.840.1.455168.3.579.2. 1976 Unknown [id number] 2.840.1.050954.3.579.2. 1976 Unknown [id number] 2.840.1.831871.3.579.2. 1976 Unknown [id number] .840.1.507697.3.579.2. 1976 Unknown [id number] 2.840.1.351334.3.579.2. 627 Private Health Insurance Unknown [id number] Unknown [id number] 2.840.1.309315.3.579.2. 462 Unknown [id number] 2.840.1.681871.3.579.2. 462 Unknown [id number] 2.840.1.164036.3.579.2. 462 Unknown [id number] 2.840.1.949936.3.579.2. 462 Unknown [id number] 2.840.1.531109.3.579.2. 462 Unknown [id number] .840.1.980724.3.579.2. 462 Unknown [id number] 2.840.1.499516.3.579.2. 462 Unknown [id number] 2.840.1.510442.3.579.2. 462 Unknown [id number] 2.840.1.296644.3.579.2. 462 Unknown [id number] 2.16.840.1.899007.3.579.2. 462 Unknown [id number] 2.16.840.1.607993.3.579.2. 462 Unknown [id number] 2.16.840.1.708741.3.579.2. 462 Unknown [id number] 2.16.840.1.446915.3.579.2. 462 Unknown [id number] 2.16.840.1.602429.3.579.2. 462 Unknown [id number] 2.16.840.1.346848.3.579.2. 462 Unknown [id number] 2.16.840.1.593489.3.579.2. 462 Unknown [id number] 2.16.840.1.389659.3.579.2. 462 Unknown [id number] 2.16.840.1.819703.3.579.2. 462 Unknown [id number] 2.16.840.1.248575.3.579.2. 462 Unknown [id number] 2.16.840.1.108867.3.579.2. 462 Unknown [id number] 2.16.840.1.212030.3.579.2. 462 Unknown [id number] 2.16.840.1.761412.3.579.2. 462 Unknown [id number] 2.16840.1.861770.3.579.2. 462 Unknown [id number] 2.16840.1.493344.3.579.2. 462 Unknown [id number] 2.16840.1.854719.3.579.2. 462 Unknown [id number] 2.16840.1.533368.3.579.2. 462 Social History Date Type Detail Facility Start: 01-08-2021 End: 06-04-2023 Light tobacco smoker (finding) [facility] Sex Assigned At [facility] Start: 11-06-2019 End: 04-09-2014 Tobacco smoking status NHIS Occasional tobacco smoker [facility] Start: 04-09-1994 End: 04-09-2014 History of tobacco use Cigarette Smoker [facility] Start: 11-06-2019 End: 01-30-2023 Cigarettes smoked current (pack per day) - Reported 0.5 [facility] Start: 11-06-2019 End: 01-03-2024 Tobacco use and exposure Smokeless tobacco non-user [facility] Start: 05-19-2021 End: 05-22-2023 Alcohol intake Current non-drinker of alcohol (finding) [facility] Start: 1975 Sex Assigned At Female C [facility] Start: 07-13-2021 End: 06-08-2023 Tobacco smoking status SDIS Unknown if ever smoked [facility] Start: 06-10-2020 Rare [facility] Start: 06-10-2020 None [facility] Start: 06-10-2020 With Family [facility] Start: 02-02-2020 Non-smoker [facility] Start: 08-08-2021 End: 02-23-2022 Exposure to SARS-CoV-2 (event) Not sure [facility] Start: 09-18-2021 End: 09-28-2021 Exposure to SARS-CoV-2 (event) Unable to assess [facility] Start: 10-20-2021 End: 03-23-2022 Tobacco Comment 4 cigarettes daily [facility] Start: 04-09-1994 End: 01-03-2024 Tobacco smoking status NHIS Smokes tobacco daily [facility] Start: 04-13-2022 End: 01-30-2023 Tobacco use panel [facility] Start: 07-12-2018 Gender identity Identifies as female gender (finding) [facility] Start: 01-30-2023 Tobacco Comment 4 cigarettes d aily, updated 01/30/2023 [facility] Start: 06-12-2023 End: 02-07-2024 Alcohol intake Lifetime non-drinker (finding) [facility] Start: 06-12-2023 Tobacco Comment 2 cigarettes d aily, one BID updated 06/12/2023 [facility] Start: 01-03-2024 Tobacco Comment 4 cigarettes d aily updated 01/03/2024 [facility] Start: 01-31-2017 Sex Female (finding) [facility] NEGATED: Highlighted row [facility] NEGATED: Highlighted row [facility] Medical Equipment Procedure Code Equipment Code Equipment Origin al Text Equipment Identifier Dates Total cholecystectomy with exploration of common bile duct FDA Start: 10-13-2024 Total cholecystectomy with exploration of common bile duct FDA Start: 10-13-2024 Insertion, spinal cord stimulator, permanent FDA Start: 10-08-2023 Insertion, spinal cord stimulator, permanent [id number] FDA Start: 10-08-2023 Insertion, spinal cord stimulator, permanent [id number] FDA Start: 10-08-2023 Insertion, spinal cord stimulator, permanent FDA Start: 10-08-2023 Insertion, spinal cord stimulator, permanent FDA Start: 10-08-2023 Insertion, spinal cord stimulator, permanent FDA Start: 10-08-2023 Insertion, spinal cord stimulator, permanent FDA Start: 10-08-2023 Insertion, spinal cord stimulator, permanent FDA Start: 10-08-2023 Insertion, spinal cord stimulator, permanent FDA Start: 10-08-2023 Insertion, spinal cord stimulator, permanent FDA Start: 10-08-2023 Gen[place] Clikx Maria De Jesus d Sterile Disposable - [id number] Start: 06-08-2017 Kit Infinion 70c m Neurostimulator 16 Contact Lead Cx - [id number] Start: 06-08-2017 Kit Infinion 70c m Neurostimulator 16 Contact Lead Cx - [id number] Start: 06-08-2017 Generator Neurostimulator Wavewriter Implantable Chargeable Mri Head Only - [id number] Start: 06-08-2017 LEAD KIT 28CM BL ADDER STIM FDA Start: 06-17-2019 GENERATOR,BLADDE R STIM FDA Start: 06-27-2019 Interstim Bladde r stimulator FDA Start: 06-27-2019 LEAD KIT 28CM BL ADDER STIM FDA Start: 06-17-2019 GENERATOR,BLADDE R STIM FDA Start: 06-27-2019 Interstim Bladde r stimulator FDA Start: 06-27-2019 LEAD KIT 28CM BL ADDER STIM FDA Start: 06-17-2019 GENERATOR,BLADDE R STIM FDA Start: 06-27-2019 Interstim Bladde r stimulator FDA Start: 06-27-2019 LEAD KIT 28CM BL ADDER STIM FDA Start: 06-17-2019 GENERATOR,BLADDE R STIM FDA Start: 06-27-2019 Interstim Bladde r stimulator FDA Start: 06-27-2019 LEAD KIT 28CM BL ADDER STIM FDA Start: 06-17-2019 GENERATOR,BLADDE R STIM FDA Start: 06-27-2019 Interstim Bladde r stimulator FDA Start: 06-27-2019 LEAD KIT 28CM BL ADDER STIM FDA Start: 06-17-2019 GENERATOR,BLADDE R STIM FDA Start: 06-27-2019 Interstim Bladde r stimulator FDA Start: 06-27-2019 LEAD KIT 28CM BL ADDER STIM FDA Start: 06-17-2019 GENERATOR,BLADDE R STIM FDA Start: 06-27-2019 Interstim Bladde r stimulator FDA Start: 06-27-2019 LEAD KIT 28CM BL ADDER STIM FDA Start: 06-17-2019 GENERATOR,BLADDE R STIM FDA Start: 06-27-2019 Interstim Bladde r stimulator FDA Start: 06-27-2019 LEAD KIT 28CM BL ADDER STIM FDA Start: 06-17-2019 GENERATOR,BLADDE R STIM FDA Start: 06-27-2019 Interstim Bladde r stimulator FDA Start: 06-27-2019 LEAD KIT 28CM BL ADDER STIM FDA Start: 06-17-2019 GENERATOR,BLADDE R STIM FDA Start: 06-27-2019 Interstim Bladde r stimulator FDA Start: 06-27-2019 LEAD KIT 28CM BL ADDER STIM FDA Start: 06-17-2019 GENERATOR,BLADDE R STIM FDA Start: 06-27-2019 Interstim Bladde r stimulator FDA Start: 06-27-2019 LEAD KIT 28CM BL ADDER STIM FDA Start: 06-17-2019 GENERATOR,BLADDE R STIM FDA Start: 06-27-2019 Interstim Bladde r stimulator FDA Start: 06-27-2019 [id number] FDA Start: 09-15-2021 LEAD KIT 28CM BL ADDER STIM FDA Start: 06-17-2019 GENERATOR,BLADDE R STIM FDA Start: 06-27-2019 Interstim Bladde r stimulator FDA Start: 06-27-2019 [id number] FDA Start: 12-08-2021 [id number] FDA Start: 12-08-2021 LEAD KIT 28CM BL ADDER STIM FDA Start: 06-17-2019 GENERATOR,BLADDE R STIM FDA Start: 06-27-2019 Interstim Bladde r stimulator FDA Start: 06-27-2019 LEAD KIT 28CM BL ADDER STIM FDA Start: 06-17-2019 GENERATOR,BLADDE R STIM FDA Start: 06-27-2019 Interstim Bladde r stimulator FDA Start: 06-27-2019 LEAD KIT 28CM BL ADDER STIM FDA Start: 06-17-2019 GENERATOR,BLADDE R STIM FDA Start: 06-27-2019 Interstim Bladde r stimulator FDA Start: 06-27-2019 LEAD KIT 28CM BL ADDER STIM FDA Start: 06-17-2019 GENERATOR,BLADDE R STIM FDA Start: 06-27-2019 Interstim Bladde r stimulator FDA Start: 06-27-2019 LEAD KIT 28CM BL ADDER STIM FDA Start: 06-17-2019 GENERATOR,BLADDE R STIM FDA Start: 06-27-2019 Interstim Bladde r stimulator FDA Start: 06-27-2019 FDA Start: 06-17-2019 FDA Start: 06-27-2019 FDA Start: 06-27-2019 FDA Start: 07-11-2022 FDA Start: 06-17-2019 FDA Start: 06-27-2019 FDA Start: 06-27-2019 FDA Start: 07-11-2022 FDA Start: 06-17-2019 FDA Start: 06-27-2019 FDA Start: 06-27-2019 FDA Start: 07-11-2022 FDA Start: 06-17-2019 FDA Start: 06-27-2019 FDA Start: 06-27-2019 FDA Start: 07-11-2022 FDA Start: 06-17-2019 FDA Start: 06-27-2019 FDA Start: 06-27-2019 FDA Start: 07-11-2022 FDA Start: 06-17-2019 FDA Start: 06-27-2019 FDA Start: 06-27-2019 FDA Start: 07-11-2022 LEAD KIT 28CM BL ADDER STIM FDA Start: 06-17-2019 GENERATOR,BLADDE R STIM FDA Start: 06-27-2019 Interstim Bladde r stimulator FDA Start: 06-27-2019 unknown make/mod el spinal cord stimulator;nonfunctio marlon FDA Start: 07-11-2022 FDA Start: 06-17-2019 FDA Start: 06-27-2019 FDA Start: 06-27-2019 FDA Start: 07-11-2022 FDA Start: 06-17-2019 FDA Start: 06-27-2019 FDA Start: 06-27-2019 FDA Start: 07-11-2022 FDA Start: 06-17-2019 FDA Start: 06-27-2019 FDA Start: 06-27-2019 FDA Start: 07-11-2022 FDA Start: 06-17-2019 FDA Start: 06-27-2019 FDA Start: 06-27-2019 FDA Start: 07-11-2022 FDA Start: 06-17-2019 FDA Start: 06-27-2019 FDA Start: 06-27-2019 FDA Start: 07-11-2022 FDA Start: 06-17-2019 FDA Start: 06-27-2019 FDA Start: 06-27-2019 FDA Start: 07-11-2022 FDA Start: 06-17-2019 FDA Start: 06-27-2019 FDA Start: 06-27-2019 FDA Start: 07-11-2022 FDA Start: 06-17-2019 FDA Start: 06-27-2019 FDA Start: 06-27-2019 FDA Start: 07-11-2022 FDA Start: 06-17-2019 FDA Start: 06-27-2019 FDA Start: 06-27-2019 FDA Start: 07-11-2022 FDA Start: 06-17-2019 FDA Start: 06-27-2019 FDA Start: 06-27-2019 FDA Start: 07-11-2022 FDA Start: 06-17-2019 FDA Start: 06-27-2019 FDA Start: 06-27-2019 FDA Start: 07-11-2022 FDA Start: 06-17-2019 FDA Start: 06-27-2019 FDA Start: 06-27-2019 FDA Start: 07-11-2022 Goals Date Patient Goal Desired Activity /State Functional Status Date Assessment Result Facility 01-09-2024 Functional Status Standard Safet y ID band on, Allergy Band on, Call device within reach, Bed in low position, Wheels locked, Upper/Half-Length side-rails up, Bedside Cart Locked, Safety level maintained [facility] 10-04-2023 Functional Status Minimum assistance [facility] 10-04-2023 Functional Status bilateral knee high applied/on [facility] 10-04-2023 Functional Status Maintained, More than 8 hours [facility] 09-20-2023 Functional Status Sensory Deficits None [facility] 08-13-2023 Functional Status Up ad paco [facility] 08-13-2023 Functional Status Room check performed [facility] 08-09-2023 Functional Status Up ad paco [facility] 08-09-2023 Functional Status [facility] 08-09-2023 Functional Status Standard Safet y ID band on, Allergy Band on, Call device within reach, Bed in low position, Wheels locked, Upper/Half-Length side-rails up [facility] 01-17-2023 Functional Status Independent [facility] 01-10-2023 Functional Status Standard Safet y ID band on, Call device within reach, Bed in low position, Wheels locked, Upper/Half-Length side-rails up, Visitor at bedside, Safety level maintained [facility] 11-27-2022 Functional Status Up ad paco [facility] 11-27-2022 Functional Status Standard Safet y ID band on, Allergy Band on, Call device within reach, Bed in low position, Wheels locked, Visitor at bedside [facility] 11-20-2022 Functional Status Independent [facility] 11-20-2022 Functional Status Standard Safet y ID band on, Allergy Band on, Call device within reach, Bed in low position, Wheels locked, personal items within reach [facility] 09-11-2022 Functional Status Up ad paco [facility] 09-11-2022 Functional Status Standard Safet y ID band on, Allergy Band on, Call device within reach, Bed in low position, Wheels locked, Upper/Half-Length side-rails up, Visitor at bedside [facility] 08-01-2022 Functional Status Independent [facility] 08-01-2022 Functional Status Environmental Safety Implemented Adequate room lighting, Bed in low position, Call device within reach [facility] 08-01-2022 Functional Status Standard Safet y ID band on, Allergy Band on, Call device within reach, Bed in low position, Wheels locked, Phone within reach, Visitor at bedside [facility] 07-21-2022 Functional Status Independent [facility] 07-21-2022 Functional Status Standard Safet y ID band on, Allergy Band on, Call device within reach, Bed in low position, Wheels locked, Upper/Half-Length side-rails up, Phone within reach, Bedside Cart Locked [facility] 07-14-2022 Functional Status Standard Safet y ID band on, Call device within reach, Bed in low position, Wheels locked, Upper/Half-Length side-rails up, Bedside Cart Locked, Safety level maintained [facility] 12-03-2021 Functional Status Assistive Device Walker [facility] 12-03-2021 Functional Status Standard Safet y ID band on, Allergy Band on, Call device within reach, Bed in low position, Wheels locked, Upper/Half-Length side-rails up, Phone within reach, Safety level maintained [facility] 09-28-2021 Functional Status Independent [facility] 09-28-2021 Functional Status N/A Jose Armando beck [facility] 07-28-2021 [facility] Functional Status Jose Armando [facility] [place] 07-05-2021 Functional Status [facility]2017 Are you deaf, or do you have serious difficulty hearing No 11/27/2017 5:09 PM EDT Angel AlmarazRn)(Hist), RN No [facility] 11-27-2017 Are you blind, or do you have serious difficulty seeing, even when wearing glasses No 11/27/2017 5:09 PM EDT Angel AlmarazRn)(Hist), RN No [facility] 11-27-2017 Do you have serious difficulty walking or climbing stairs No 11/27/2017 5:09 PM EDAngel XiongRn)(Hist), RN No [facility] 11-27-2017 Do you have difficul ty dressing or bathing No 11/27/2017 5:09 PM Angel GabrielRn)(Hist), RN No [facility] 11-27-2017 Because of a physica l, mental, or emotional condition, do you have difficulty doing errands alone such as visiting a physician's office or shopping No 11/27/2017 5:09 PM Angel Gabriel)(Hist), RN No [facility] Mental Status Date Assessment Result Facility 10-13-2024 Cognitive function Drowsy [facility] Work Phone: 08-22-2024 Cognitive function Light Pain [facility] Work Phone: 08-22-2024 Cognitive function Person;Place;Time [facility] Work Phone: 01-09-2024 Mental Status Orientation Oriented x 4 [facility] 10-04-2023 Mental Status Orientation Oriented x 4 [facility] 10-04-2023 Mental Status [facility] 10-04-2023 [facility] Status [facility] 08-13-2023 Mental Status [facility] 08-09-2023 Mental Status Orientation Oriented x 4 [facility] 08-09-2023 Mental Status [facility] 07-18-2023 Cognitive function Awake;Alert;Appropriat e [facility] Work Phone: 01-17-2023 Mental Status Orientation Oriented x 4 [facility] 01-10-2023 Mental Status Orientation Oriented x 4 [facility] 12-07-2022 Cognitive function Awake;Alert;A ppropriate;Fol lows Commands [facility] Work Phone: 11-27-2022 Mental Status Orientation Oriented x 4 [facility] 11-27-2022 Mental Status [facility] 11-20-2022 Mental Status Orientation Oriented x 4 [facility] 11-20-2022 Mental Status [facility] 09-27-2022 Cognitive function Voice/Name [facility] Work Phone: 09-11-2022 Mental Status Orientation Oriented x 4 [facility] 08-01-2022 Mental Status Orientation Oriented x 4 [facility] 08-01-2022 Mental Status [facility] 07-21-2022 Mental Status Orientation Oriented x 4 [facility] 07-21-2022 Mental Status [facility] 07-14-2022 Mental Status Orientation Oriented x 4 [facility] 02-02-2022 Cognitive function Level Of Cons ciousness Awake;Alert;Appropriate;Fol lows Commands [facility] Work Phone: 12-30-2021 Cognitive function Level Of Cons ciousness Awake;Alert;Appropriate;Fol lows Commands [facility] Work Phone: 12-08-2021 Cognitive function Voice/Name [facility] Work Phone: 12-03-2021 Mental Status Orientation Oriented x 4 [facility] 12-03-2021 Mental Status [facility] 09-28-2021 Mental Status Orientation Oriented x 4 [facility] 09-28-2021 Mental Status [facility] 09-15-2021 Cognitive function Level Of Cons ciousness Follows Commands;Drowsy [facility] Work Phone: 09-15-2021 Cognitive function Patient Orien tation Person;Place;Time [facility] Work Phone: 09-09-2021 Cognitive function Voice/Name [facility] Work Phone: 07-28-2021 Mental Status [facility] 07-28-2021 Mental Status [facility] 07-05-2021 Mental Status [facility] 06-22-2021 Cognitive function Touch/Shaking [facility] Work Phone: 11-27-2017 Because of a physica l, mental, or emotional condition, do you have serious difficulty concentrating, remembering, or making decisions Yes 11/27/2017 5:09 PM Angel Gabriel (Rn)(Hist), RN Yes [facility] Clinical Notes 05-28-2017 to 11-26-2024 Note Date & Type Note Facility 11-26-2024 Hospital Discharge instructions Patient Education 11/26/2024 14:28:44 Anatomy of the Digestive System Anatomy of the Digestive System Food gives the body the energy needed for life. The digestive system breaks food down into basic nutrients that can be used by the body. The digestive tract is a long, muscular tube that extends from the mouth through the stomach and intestines to the anus. As food moves along the digestive tract, it is digested. This means it is changed into substances that can be absorbed into the bloodstream. Certain organs (such as the liver, gallbladder, and pancreas) help with this digestion. Parts of food that can't be digested are turned into stool. This is waste material that is passed out of the body. Digestive system The digestive system is made up of the following: The mouth. Takes in food, breaks it into pieces, and begins the digestion process. The esophagus. Moves food from the mouth to the stomach. Thestomach. Breaks food down into a liquid mixture. Theliver. Makes bile that helps digest fat. The gallbladder. Stores bile. Thepancreas. Makes enzymes that help in digestion. Thesmall intestine. Digests food further and absorbs nutrients. What is left is passed on to the colon as liquid waste. The large intestine (colon). Absorbs water, salt, and minerals from the waste, forming a solid stool. The rectum. Stores stool until a bowel movement happens. Theanus. The opening where stool leaves the body. 5929-6034 [employer]. [address] [place] [address]. All rights reserved. This information is not intended as a substitute for professional medical care. Always follow your healthcare professional's instructions. Follow Up Care 11/26/2024 12:08:09 With:KATHERINE MUNOZ MD Address: [facility] [place] [address] [phone] When:2-4 days [facility] 11-26-2024 Note Discharge Instructions Thank you for allowing [facility] to assist you with your healthcare needs. The following is important discharge information regarding your hospital visit. Diagnosis from Today's Visit Epiploic appendagitis What to Do Next Instructions from Your Care Team No qualifying data available. Post Acute Orders No qualifying data available. You Need to Schedule the Following Appointments Follow Up with KATHERINE MUNOZ MD When:Within 2-4 days Where:[facility] [place] [id number]- [phone] Allergies Contrast dye Flagyl Latex Blisters, Rash Naprosyn Seafood amoxicillin erythromycin iodine Rash penicillin Medications Please ask your primary doctor or pharmacist before taking any other medication not listed, including over the counter drugs, herbal medications, vitamins and or supplements as they may interact with your home medications. What How Much When Why Instructions Last Dose New acetaminophen-hydrocodone ([place] 325- 5 mg oral tablet) 1 tab(s) by mouth Every 6 hours as needed for for pain Epiploic appendagitis Duration: 7 Days Printed Prescription Changed ondansetron (Zofran 4 mg oral tablet) 1 tab(s) by mouth Every 8 hours as needed for Nausea/Vomiting Pickup at [facility]/pharmacy #[id number] Changed ondansetron (Zofran 4 mg oral tablet) 1 tab(s) by mouth Every 8 hours as needed for Nausea/Vomiting Unchanged baclofen (baclofen 10 mg oral tablet) 1 tab(s) by mouth Three (3) times a day Duration: 5 Days Unchanged busPIRone (busPIRone 10 mg oral tablet) 1 tab(s) by mouth Two (2) times a day Unchanged carBAMazepine (carBAMazepine 200 mg oral tablet) 2 tab(s) by mouth Two (2) times a day Unchanged cholecalciferol (Vitamin D3 1250 mcg (50,000 intl units) oral capsule) 1 cap by mouth Every week Unchanged dicyclomine (dicyclomine 10 mg oral capsule) 1 cap by mouth Two (2) times a day Unchanged DULoxetine (DULoxetine 30 mg oral delayed release capsule) 2 cap by mouth Once a day Unchanged EPINEPHrine (EPINEPHrine 0.3 mg injectable kit) See instructions 0.3 mg Intramuscular Unchanged folic acid (folic acid 1 mg oral tablet) 1 tab(s) by mouth Once a day Unchanged fremanezumab (Ajovy Autoinjector 225 mg/ 1.5 mL subcutaneous solution) Unchanged fremanezumab (Ajovy Autoinjector 225 mg/ 1.5 mL subcutaneous solution) 225 Milligram Subcutaneous Unchanged gabapentin (gabapentin 600 mg oral tablet) 1 tab(s) by mouth Three (3) times a day Unchanged hydroxychloroquine (hydroxychloroquine 200 mg oral tablet) 2 tab(s) by mouth Once a day Unchanged levETIRAcetam (levETIRAcetam 500 mg oral tablet) 2 tab(s) by mouth Two (2) times a day Unchanged linaclotide (Linzess 145 mcg oral capsule) 1 cap by mouth Once a day Unchanged methotrexate (methotrexate 2.5 mg oral tablet) 10 tab(s) by mouth Every week Unchanged montelukast (montelukast 10 mg oral tablet) 1 tab(s) by mouth Once a day Unchanged nortriptyline (nortriptyline 10 mg oral capsule) 1 cap by mouth Three (3) times a day Unchanged pantoprazole (pantoprazole 40 mg oral enteric coated tablet) 1 tab(s) by mouth Once a day Unchanged prazosin (prazosin 2 mg oral capsule) 2 cap by mouth Daily at bedtime Unchanged prochlorperazine (Compazine use prochlorperazine ) 10 Milligram by mouth Every 8 hours Unchanged promethazine (promethazine 25 mg oral tablet) 1 tab(s) by mouth Three (3) times a day Unchanged QUEtiapine (QUEtiapine 300 mg oral tablet) 1 tab(s) by mouth Daily at bedtime 700mg daily Unchanged scopolamine (scopolamine 1 mg/ 72 hr transdermal film, extended release) 1 patch(es) Transdermal Unchanged simvastatin (simvastatin 20 mg oral tablet) 1 tab(s) by mouth Daily at bedtime Unchanged topiramate (topiramate 200 mg oral tablet) 1 tab(s) by mouth Once a day Unchanged ubrogepant (Ubrelvy 100 mg oral tablet) 1 tab(s) by mouth Once as needed for as needed for migraine headache may repeat dose in 2 hours if needed Pharmacy Information [facility]/pharmacy #[id number]: [address] [place], [place] [phone] Please take this list to your next doctor s visit. Bring all medications you take, including over the counter medications, herbals and other supplements with you to your doctor s visit. Patients and families are reminded to discard old lists and to update any records with all medication providers or retail pharmacies. Education Materials Anatomy of the Digestive System Food gives the body the energy needed for life. The digestive system breaks food down into basic nutrients that can be used by the body. The digestive tract is a long, muscular tube that extends from the mouth through the stomach and intestines to the anus. As food moves along the digestive tract, it is digested. This means it is changed into substances that can be absorbed into the bloodstream. Certain organs (such as the liver, gallbladder, and pancreas) help with this digestion. Parts of food that can't be digested are turned into stool. This is waste material that is passed out of the body. Digestive system The digestive system is made up of the following: The mouth. Takes in food, breaks it into pieces, and begins the digestion process. The esophagus. Moves food from the mouth to the stomach. Thestomach. Breaks food down into a liquid mixture. Theliver. Makes bile that helps digest fat. The gallbladder. Stores bile. Thepancreas. Makes enzymes that help in digestion. Thesmall intestine. Digests food further and absorbs nutrients. What is left is passed on to the colon as liquid waste. The large intestine (colon). Absorbs water, salt, and minerals from the waste, forming a solid stool. The rectum. Stores stool until a bowel movement happens. Theanus. The opening where stool leaves the body. [id number] [employer] [place] [address]. All rights reserved. This information is not intended as a substitute for professional medical care. Always follow your healthcare professional's instructions. Additional Information VACCINATE! IT SAVES LIVES! Members of the community who have not yet received the COVID-19 vaccine and would like to receive it can visit one of [facility] vaccine clinics. There are many vaccine clinic locations within the [facility]. For locations and available times, please visit [email or web address] It is important to note that some COVID mobile vaccine clinics are held outdoors and may be canceled in rainy or stormy conditions. To learn more about pediatric vaccinations (ages 5-11), we invite you to visit the [facility] webpage. https://www.[email or web address].org/pag [email or web address]-Vlteeqvjtuc-[email or web address] [email or web address]-Nrbbjznht.html To learn more about the COVID-19 vaccine, we invite you to visit the CDC website for a list of frequently asked questions. https://www.cdc.gov/coronavirus/-ncov/vaccines/faq.html [facility] Patient Portal Access Instructions: Stay connected with your healthcare team and access your personal medical information anytime with the [facility] Patient Portal. If you would like a full copy of your medical records please contact the [facility] Medical Records Department Sunday through Sunday between 8a.m. and 4:30p.m. Please follow the directions below to access the portal: 1.Access the email account you provided upon registration to the [facility].2.Look for an invitation email from [facility].3.Open the email and access the invitation link: Accept Invitation to [facility].Fill in the required white to create your account. Sign into [email or web address] with your username and password that you created in the above steps to stay up to date. You can then view a summary of results, a summary of your visits, and the ability to download your summaries to your computer or send the information securely to a physician. Remember that your healthcare information is confidential, so carefully consider who you will allow to register on the [facility] Patient Portal for access to your information. You can also access the [facility] Patient Portal on the [employer]. Simply click on Health Records under Health Data and then click on the [employer] logo. HOW TO SAFELY DISPOSE OF PRESCRIPTION MEDICATIONS Please use one of the following methods to safely dispose of your unused medications. 1.Use a drug disposal kit: the drug disposal pouch allows you to safely discard your old and unused drugs. Ask your nurse to give you one when you are discharged.2.Visit a local take-back location: Many local pharmacies and police departments have programs that collect old and unwanted prescription drugs. Call your local pharmacy or go to http://Mobilygen.Centrix/7Q0Xl1e to find one close to you.3.Make use of household items: Use cat litter or old coffee grounds to dispose medications if other options are not available. Mix your drugs with these household products, seal them in an airtight container and throw it into the garbage. Call [facility]: [phone] to be sure your drugs can be disposed of in this way. Some medicines may require a different approach.4.Never flush your medications down the toilet. IF YOU HAVE BEEN PRESCRIBED AN OPIOIDS FOR PAIN If you have been prescribed an opioid (such as hydrocodone, oxycodone or morphine), it is critical to understand the possible side effects and risks of opioid pain medications. Even when taken as directed, opioids can have several side effects including: Tolerance, meaning you might need to take more of a medication for the same pain relief. Nausea, vomiting and/or constipation. Sleepiness, dizziness, dry mouth, confusion, depression or itching. Physical dependence, meaning you have withdrawal symptoms when a medication is stopped ? this can develop within a few days. KNOW YOUR RESPONSIBILITIES It is important to know exactly how much and how often to take the opioid pain medications you are prescribed. Never take opioids in higher amounts or more often than prescribed. Do not combine opioids with alcohol or other drugs that cause drowsiness, such as benzodiazepines, also known as benzos, including diazepam and alprazolam, muscle relaxants or sleep aids. Never sell or share prescription opioids. This is illegal. Store opioids in a secure place and out of reach of others (including children, family, friends and visitors). The last page(s) of this document has been signed and retained as a CHART COPY Signatures Patient Education Materials Anatomy of the Digestive System Medication Leaflets My discharge plan and instructions have been reviewed and explained to me and ICHRISTINA REBECCA M understand my current condition and have read and understand these discharge instructions. I have received a written copy of the plan/instructions. If I have questions, I am aware that I should contact my doctor. 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 Multiplanar reformatted images are provided for review. Automated exposure control, iterative reconstruction, and/or weight based adjustment of the mA/kV was utilized to reduce the radiation dose to as low as reasonably achievable. COMPARISON: CT abdomen and pelvis 11/03/2024, 08/28/2024. HISTORY: ORDERING SYSTEM PROVIDED HISTORY: Reason for Exam: PT C/O GENERALIZED ABD PAIN, N+V X2 DAYS. GB OUT 1 MONTH AGO. Abdominal pain, acute, nonlocalized FINDINGS: Lung bases are clear. No pleural effusion heart is normal in size without pericardial effusion. Normal liver morphology. No suspicious hepatic lesions. No significant intra or extrahepatic biliary dilatation status post cholecystectomy. Spleen, pancreas and adrenal glands are unremarkable. Kidneys are symmetric in size without evidence of hydronephrosis or renal calculi. Ureters are normal in caliber. Urinary bladder is unremarkable. Uterus is surgically absent. No adnexal masses. Esophagus, stomach and duodenum are unremarkable. Normal caliber small and large bowel. There is a small ovoid fatty lesion with a central hyperdense dot adjacent to the hepatic flexure with mild associated adjacent inflammatory change. Appendix is surgically absent. No free pelvic fluid or evidence of pneumoperitoneum. Aorta is normal in caliber with moderate atherosclerotic calcifications. Portal venous system is patent. No pathologically enlarged abdominal or pelvic lymph nodes. Abdominal wall is intact. A stimulator device is noted within the right flank extending to the right presacral space. There is also a spinal stimulator within the right flank which extend into the spinal canal. No aggressive osseous lesions. 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 Screws are noted within L5 and S1. IMPRESSION: Acute epiploic appendagitis involving the hepatic flexure. Interpreted by: Tevin Ch Preliminary Report By: Tevin Ch Electronically signed By Tevin Ch Dictated Date: 11/26/2024 2:00:42 PM Prelim Date: 11/26/2024 2:08:09 PM Sign Date: 11/26/2024 2:08:09 PM [facility]28[facility]2025 Hospital Discharge instructions Patient Education 11/03/2024 16:28:27 Abdominal Pain, Unknown Cause, (Female) Unknown Causes of Abdominal Pain (Female) The exact cause of your belly (abdominal) pain is not clear. This does not mean that this is something to worry about. Everyone likes to know the exact cause of the problem. But sometimes with belly pain, there is no clear-cut cause, and this could be a good thing. The good news is that your symptoms can be treated, and you will feel better. Your condition does not seem serious now. But sometimes the signs of a serious problem may take more time to appear. For this reason, it is important for you to watch for any new symptoms, problems, or worsening of your condition. Over the next few days, the abdominal pain may come and go. Or it may be constant. Other common symptoms can include nausea and vomiting. Sometimes it can be difficult to tell if you feel nauseous. You may just feel bad and not connect that feeling to nausea. Constipation, diarrhea, and a fever maygo along with the pain. The pain may continue even if treated correctly over the following days. Depending on how things go, sometimes the cause can become clear and may need more or different treatment. Additional evaluations, medicines, or tests may also be needed. Home care Your healthcare provider may prescribe medicine for pain, symptoms, or an infection. Follow the healthcare provider's instructions for taking these medicines. General care Rest as much as you can until your next exam. No strenuous activities. Try to find positions that ease discomfort. A small pillow placed on the abdomen may help relieve pain. Something warm on your abdomen (such as a heating pad) may help, but be careful not to burn yourself. Diet Don t force yourself to eat, especially if having cramps, vomiting, or diarrhea. Water is important so you don't get dehydrated. Soup may also be good. Sports drinks may also help,especially if they are not too acidic. Don't drink sugary drinks as this can make things worse. Take liquids in small amounts. Don t guzzle them. Caffeine sometimes makes the pain and cramping worse. Don t take dairy products if you have vomiting or diarrhea. Don't eat large amounts at a time. Wait a few minutes between bites. Eat a diet low in fiber (called a low-residue diet). Foods allowed include refined breads, white rice, fruit and vegetable juices without pulp, tender meats. These foods will pass more easily throughthe intestine. Don t have whole-grain foods, whole fruits and vegetables, meats, seeds and nuts, fried or fatty foods, dairy, alcohol and spicy foods until your symptoms go away. Follow-up care Follow up with your healthcare provider, or as advised, if your pain does not begin to improve in the next 24 hours. Call 911 Call 911 if any of these occur: Trouble breathing Confusion Fainting or loss of consciousness Rapid heart rate Seizure When to seek medical advice Call your healthcare provider right away if any of these occur: Pain gets worse or moves to the right lower abdomen New or worsening vomiting or diarrhea Swelling of the abdomen Unable to pass stool for more than 3 days Fever of 100.4 F (38 C) or higher, or as directed by your healthcare provider. Blood in vomit or bowel movements (dark red or black color) Yellow color of eyes and skin (jaundice) Weakness, dizziness Chest, arm, back, neck, or jaw pain Unexpected vaginal bleeding or missed period Can't keep down liquids or water and you are getting dehydrated [id number] [employer] [place] [address]. All rights reserved. This information is not intended as a substitute for professional medical care. Always follow yourhealthcare professional's instructions. Follow Up Care 11/03/2024 14:06:31 With:KATHERINE MUNOZ Address: [address] [place] [phone]- [phone] Business (1) When:2-4 days Comments:Follow-up with your doctor, return if any worsening or concerning symptoms. [facility] 07-28-2025 Note Discharge Instructions Thank you for allowing [facility] to assist you with your healthcare needs. The following is importantdischarge information regarding your hospital visit. Diagnosis from Today's Visit Abdominal pain What to Do Next Instructions from Your Care Team No qualifying data available. Post Acute Orders No qualifying data available. You Need to Schedule the Following Appointments Follow Up with KATHERINE MUNOZ When:Within 2-4 days Where:[facility] [place] [address]- [phone] Business (1) Additional Information: Follow-up with your doctor, return if any worsening or concerning symptoms. Allergies Contrast dye Flagyl Latex Blisters, Rash Naprosyn Seafood amoxicillin erythromycin iodine Rash penicillin Medications Please ask your primary doctor or pharmacist before taking any other medication not listed, including over the counter drugs, herbal medications, vitamins and or supplements as they may interact withyour home medications. What How Much When Instructions Last Dose Unchanged baclofen (baclofen 10 mg oral tablet) 1 tab(s) by mouth Three (3) times a day Duration: 5 Days Unchanged busPIRone (busPIRone 10 mg oral tablet) 1 tab(s) by mouth Two (2) times a day Unchanged carBAMazepine (carBAMazepine 200 mg oral tablet) 2 tab(s) by mouth Two (2) times a day Unchanged cholecalciferol (Vitamin D3 1250 mcg (50,000 intl units) oral capsule) 1 cap by mouth Every week Unchanged dicyclomine (dicyclomine 10 mg oral capsule) 1 cap by mouth Two (2) times a day Unchanged DULoxetine (DULoxetine 30 mg oral delayed release capsule) 2 cap by mouth Once a day Unchanged EPINEPHrine (EPINEPHrine 0.3 mg injectable kit) See instructions 0.3 mg Intramuscular Unchanged folic acid (folic acid 1 mg oral tablet) 1 tab(s) by mouth Once a day Unchanged fremanezumab (Ajovy Autoinjector 225 mg/ 1.5 mL subcutaneous solution) Unchanged fremanezumab (Ajovy Autoinjector 225 mg/ 1.5 mL subcutaneous solution) 225 Milligram Subcutaneous Unchanged gabapentin (gabapentin 600 mg oral tablet) 1 tab(s) by mouth Three (3) times a day Unchanged hydroxychloroquine (hydroxychloroquine 200 mg oral tablet) 2 tab(s) by mouth Once a day Unchanged levETIRAcetam (levETIRAcetam 500 mg oral tablet) 2 tab(s) by mouth Two (2) times a day Unchanged linaclotide (Linzess 145 mcg oral capsule) 1 cap by mouth Once a day Unchanged methotrexate (methotrexate 2.5 mg oral tablet) 10 tab(s) by mouth Every week Unchanged montelukast (montelukast 10 mg oral tablet) 1 tab(s) by mouth Once a day Unchanged nortriptyline (nortriptyline 10 mg oral capsule) 1 cap by mouth Three (3) times a day Unchanged ondansetron (Zofran 4 mg oral tablet) 1 tab(s) by mouth Every 8 hours as needed for Nausea/Vomiting Unchanged pantoprazole (pantoprazole 40 mg oral enteric coated tablet) 1 tab(s) by mouth Once a day Unchanged prazosin (prazosin 2 mg oral capsule) 2 cap by mouth Daily at bedtime Unchanged prochlorperazine (Compazine use prochlorperazine ) 10 Milligram by mouth Every 8 hours Unchanged promethazine (promethazine 25 mg oral tablet) 1 tab(s) by mouth Three (3) times a day Unchanged QUEtiapine (QUEtiapine 300 mg oral tablet) 1 tab(s) by mouth Daily at bedtime 700mg daily Unchanged scopolamine (scopolamine 1 mg/ 72 hr transdermal film, extended release) 1 patch(es) Transdermal Unchanged simvastatin (simvastatin 20 mg oral tablet) 1 tab(s) by mouth Daily at bedtime Unchanged topiramate (topiramate 200 mg oral tablet) 1 tab(s) by mouth Once a day Unchanged ubrogepant (Ubrelvy 100 mg oral tablet) 1 tab(s) by mouth Once as needed for as needed for migraine headache may repeat dose in 2 hours if needed Please take this list to your next doctor s visit. Bring all medications you take, including over the counter medications, herbals and other supplements with you to your doctor s visit. Patients and families are reminded to discard old lists and to update any records with all medication providers or retail pharmacies. Education Materials Unknown Causes of Abdominal Pain (Female) The exact cause of your belly (abdominal) pain is not clear. This does not mean that this is something to worry about. Everyone likes to know the exact cause of the problem. But sometimes with belly pain, there is no clear-cut cause, and this could be a good thing. The good news is that your symptoms can be treated, and you will feel better. Your condition does not seem serious now. But sometimes the signs of a serious problem may take more time to appear. For this reason, it is important for you to watch for any new symptoms, problems, or worsening of your condition. Over the next few days, the abdominal pain may come and go. Or it may be constant. Other common symptoms can include nausea and vomiting. Sometimes it can be difficult to tell if you feel nauseous. You may just feel bad and not connect that feeling to nausea. Constipation, diarrhea, and a fever maygo along with the pain. The pain may continue even if treated correctly over the following days. Depending on how things go, sometimes the cause can become clear and may need more or different treatment. Additional evaluations, medicines, or tests may also be needed. Home care Your healthcare provider may prescribe medicine for pain, symptoms, or an infection. Follow the healthcare provider's instructions for taking these medicines. General care Rest as much as you can until your next exam. No strenuous activities. Try to find positions that ease discomfort. A small pillow placed on the abdomen may help relieve pain. Something warm on your abdomen (such as a heating pad) may help, but be careful not to burn yourself. Diet Don t force yourself to eat, especially if having cramps, vomiting, or diarrhea. Water is important so you don't get dehydrated. Soup may also be good. Sports drinks may also help,especially if they are not too acidic. Don't drink sugary drinks as this can make things worse. Take liquids in small amounts. Don t guzzle them. Caffeine sometimes makes the pain and cramping worse. Don t take dairy products if you have vomiting or diarrhea. Don't eat large amounts at a time. Wait a few minutes between bites. Eat a diet low in fiber (called a low-residue diet). Foods allowed include refined breads, white rice, fruit and vegetable juices without pulp, tender meats. These foods will pass more easily throughthe intestine. Don t have whole-grain foods, whole fruits and vegetables, meats, seeds and nuts, fried or fatty foods, dairy, alcohol and spicy foods until your symptoms go away. Follow-up care Follow up with your healthcare provider, or as advised, if your pain does not begin to improve in the next 24 hours. Call 911 Call 911 if any of these occur: Trouble breathing Confusion Fainting or loss of consciousness Rapid heart rate Seizure When to seek medical advice Call your healthcare provider right away if any of these occur: Pain gets worse or moves to the right lower abdomen New or worsening vomiting or diarrhea Swelling of the abdomen Unable to pass stool for more than 3 days Fever of 100.4 F (38 C) or higher, or as directed by your healthcare provider. Blood in vomit or bowel movements (dark red or black color) Yellow color of eyes and skin (jaundice) Weakness, dizziness Chest, arm, back, neck, or jaw pain Unexpected vaginal bleeding or missed period Can't keep down liquids or water and you are getting dehydrated [id number] [employer]. [address] [place] [address]. All rights reserved. This information is not intended as a substitute for professional medical care. Always follow yourhealthcare professional's instructions. Additional Information VACCINATE! IT SAVES LIVES! Members of the community who have not yet received the COVID-19 vaccine and would like to receive it can visit one of [facility] vaccine clinics. There are many vaccine clinic locations within the [facility]. For locations and available times, please visit www.[email or web address].[place].gov/. It is important to note that some COVID mobile vaccine clinics are held outdoors and may be canceled in rainy or stormy conditions. To learn more about pediatric vaccinations (ages 5-11), we invite you to visit the [employer] [facility] webpage. [email or web address] learn more about the COVID-19 vaccine, we invite you to visit the CDC website for a list of frequently asked questions. https://www.cdc.gov/coronavirus/2019-ncov/vaccines/faq.html [facility] Patient Portal Access Instructions: Stay connected with your healthcare team and access your personal medical information anytime with the [facility] Patient Portal. If you would like a full copy of your medical records please contact the [facility] Medical Records Department Sunday through Sunday between 8a.m. and 4:30p.m. Please follow the directions below to access the portal: 1.Access the email account you provided upon registration to the [facility].2.Look for an invitation email from [facility].3.Open the email and access the invitation link: Accept Invitation to [facility].Fill in the required white to create your account. Sign into [email or web address] with your username and password that you created in the above steps to stay up to date. You can then view a summary of results, a summary of your visits, and the ability to download your summaries to your computer or send the information securely to a physician. Remember that your healthcare information is confidential, so carefully consider who you will allow to register on the [facility] Patient Portal for access to your information. You can also access the [facility] Patient Portal on the [employer]. Simply click on Health Records under [facility] and then click on the [employer] logo. HOW TO SAFELY DISPOSE OF PRESCRIPTION MEDICATIONS Please use one of the following methods to safely dispose of your unused medications. 1.Use a drug disposal kit: the drug disposal pouch allows you to safely discard your old and unuseddrugs. Ask your nurse to give you one when you are discharged.2.Visit a local take-back location: Many local pharmacies and police departments have programs that collect old and unwanted prescriptiondrugs. Call your local pharmacy or go to http://Mobilygen.Centrix/0S2Ts8o to find one close to you.3.Make use of household items: Use cat litter or old coffee grounds to dispose medications if other options arenot available. Mix your drugs with these household products, seal them in an airtight container andthrow it into the garbage. Call [facility]: [phone] to be sure your drugs can be disposed of in this way. Some medicines may require a different approach.4.Never flush your medications down the toilet. IF YOU HAVE BEEN PRESCRIBED AN OPIOIDS FOR PAIN If you have been prescribed an opioid (such as hydrocodone, oxycodone or morphine), it is critical to understand the possible side effects and risks of opioid pain medications. Even when taken as directed, opioids can have several side effects including: Tolerance, meaning you might need to take more of a medication for the same pain relief. Nausea, vomiting and/or constipation. Sleepiness, dizziness, dry mouth, confusion, depression or itching. Physical dependence, meaning you have withdrawal symptoms when a medication is stopped ? this can develop within a few days. KNOW YOUR RESPONSIBILITIES It is important to know exactly how much and how often to take the opioid pain medications you are prescribed. Never take opioids in higher amounts or more often than prescribed. Do not combine opioids with alcohol or other drugs that cause drowsiness, such as benzodiazepines, also known as benzos,including diazepam and alprazolam, muscle relaxants or sleep aids. Never sell or share prescriptionopioids. This is illegal. Store opioids in a secure place and out of reach of others (including children, family, friends and visitors). The last page(s) of this document has been signed and retained as a CHART COPY Signatures Patient Education Materials Abdominal Pain, Unknown Cause, (Female) Medication Leaflets My discharge plan and instructions have been reviewed and explained to me and I,CRYS FRANKS understand my current condition and have read and understand these discharge instructions. I have received a written copy of the plan/instructions. If I have questions, I am aware that I should contact my doctor. 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 Multiplanar reformatted images are provided for review. Automated exposure control, iterative reconstruction, and/or weight based adjustment of the mA/kV was utilized to reduce the radiation dose to as low as reasonably achievable. COMPARISON: None. HISTORY: ORDERING SYSTEM PROVIDED HISTORY: Reason for Exam: RUQ PAIN, VOMITING, [place] 2 WEEKS AGO, CONSTIPATION, DIARRHEA, HX UTERINE CA postoperative pain RUQ, vomiting FINDINGS: Lung bases are clear. Intrahepatic biliary ductal dilatation may be secondary to the patient's post cholecystectomy status. Pancreas, adrenal glands, kidneys demonstrate no acute abnormalities. Small bowel and colon are normal in course and caliber without evidence of an acute obstructive or inflammatory process. Large quantity of stool is present throughout the colon to the level of the descending colon. No lymphadenopathy. Aorta is normal in caliber. No intra-abdominal free air or free fluid. Urinary bladder is normal in appearance. There are screws present within the L5 and S1 vertebral bodies which appear to be intact. Pars defects are present bilaterally at L5. Nerve stimulator device present within the right gluteal soft tissues. IMPRESSION: Large quantity of stool throughout the colon to the level of the descending colon, could be seen the setting of constipation. No additional acute intra-abdominal findings. Interpreted by: Tisha Herrera MD Preliminary Report By: Tisha Herrera MD Electronically signed By Tisha Herrera MD Dictated Date: 11/03/2024 3:09:05 PM Prelim Date: 11/03/2024 3:16:26 PM Sign Date: 11/03/2024 3:16:26 PM Ordering Provider: ANTOLIN [facility]07-10-2025 Telephone encounter Note* Telephone Encounter - Julisa Jimenez LPN - 10/16/2024 4:55 PM EDT Pharmacy requesting the following refill. Cancelled 09/22/2024, 06/23/2024 It looks like she was admitted to [facility] on 10/02/2024 and 09/24/2024. I am not able to see if she was discharged, records not available in Care Everywhere. Call placed to patient, no answer. Left message for patient to call office and schedule an appt. Requested Prescriptions Pending Prescriptions Disp Refills cholecalciferol, Vitamin D3, (VITAMIN D3) 1,250 mcg (50,000 unit) cap capsule [Pharmacy Med Name: Vitamin D3 1.25 MG(30882 UT) CAPS] 4 capsule 1 Sig: TAKE 1 CAPSULE BY MOUTH EVERY WEEK Patient last appointment: 04/22/2024 Next Appointment: Visit date not found Patient Phone numbers: [phone] (home) Request is for script(s) to be escript to pharmacy. [facility] - [address] - [place] [address] - [address] - [phone] Julisa Jimenez LPN [facility]07-10-2025 Miscellaneous Notes* Telephone Encounter - Julisa Jimenez LPN - 10/16/2024 4:55 PM EDT Pharmacy requesting the following refill. Cancelled 09/22/2024, 06/23/2024 It looks like she was admitted to [facility] on 10/02/2024 and 09/24/2024. I am not able to see if she was discharged, records not available in Care Everywhere. Call placed to patient, no answer. Left message for patient to call office and schedule an appt. Requested Prescriptions Pending Prescriptions Disp Refills cholecalciferol, Vitamin D3, (VITAMIN D3) 1,250 mcg (50,000 unit) cap capsule [Pharmacy Med Name: Vitamin D3 1.25 MG(62257 UT) CAPS] 4 capsule 1 Sig: TAKE 1 CAPSULE BY MOUTH EVERY WEEK Patient last appointment: 04/22/2024 Next Appointment: Visit date not found Patient Phone numbers: [phone] (home) Request is for script(s) to be escript to pharmacy. [facility] - [address] [place] [address] - [address] - [phone] Julisa Jimenez LPN [facility] Consult note Author Madhav Cardenas [facility] Note Date/Time October 13, 2024 3:59p m [facility] Medical Records Department [address] [place] [address] Anesthesia Postop Eval I 10/13/24 1344 MR#: [id number] Acct: [id number] Name: JUDD FRANKSCA MILI HAMPTON Rep #:[id number] : 1975 49 From: Madhav Cardenas CRNA PCP: Dr. Katherine Munoz MD Status:R EG SDC Y Race: C Location: [place] [address] Anesthesia: Postop Eval I Current Vital Signs Temperature: 97.3 F Pulse Rate: 90 Blood Pressure: 109/60 Respiratory Rate: 20 Pulse Ox: 92 Oxygen Delivery Method: Nasal Cannula Oxygen Flow Rate (L/min): 2 Assessment Airway patent: Yes Spontaneous unlabored respirations: Yes Mental status: Awake nausea: Yes Vomiting: No Anesthesia Complication: No Fluid Hydration Crystalloid volume administer (ml): 250 Total IV fluid infused: 250 Progress Note Anesthesia document: Postop Eval 1 completed: Yes 10/13/24 1344 <Electronically signed by Madhav aguirre CRNA> Date _ Madhav Cardenas CRNA Cosigner Signature: Date CC: ~ Signed [facility] Work Phone: 1(587) 541-498707-07-2025 Discharge summary Author Damaso Mcgarry [facility] Note Date/Time October 13, 2024 1:31p m [facility] Medical Records Department [address] [place] [address] Instructions for Home/Discharge Instructions 10/13/24 1328 MR#: [id number] Acct: [id number] Name: CRYS FRANKS Rep #:[id number] : 1975 49 From: Damaso vasques MD PCP: Dr. Katherine Munoz MD Status:R [facility] Discharge Instructions Procedure Gallbladder Diet Discharge Diet: Light diet - advance as tolerated Activity Discharge Activity: May Not Drive (for 2-3 days or while taking narcotic pain medications.) and - (Do not drive, work heavy equipment or sign legal documents for 24 hours.) May shower in (days): 1 Lifting Restrictions: 20 lbs for 2 weeks Additional Activity Instructions:: Pain medication may cause nausea. You should typically eat light foods as you take your pain medications. Pain medication may also cause constipation. If this is a problem for you, please discuss with your doctor. Alternate ibuprofen and Tylenol for pain control, oxycodone for breakthrough pain Dressing / Incision Call your doctor if your incision/area has: Continuous Slow Oozing, Sudden Increased Bleeding, Increased Pain/ Swelling, Increased Redness and Foul Smelling Discharge Call your doctor if you observe: Fever of 101 or Higher Suture Line Care: Avoid Pulling/Pushing and Avoid Pinching/Bending Remove Dressing in: 2 days Additional Dressing/Incision Instructions:: Leave operative bandaids on for 2 days. When you remove dressing, leave Steri-Strips on until your follow-up appointment, or until the Steri-Strips fall off on their own. Follow Up Care Please Follow Up With: Damaso Mcgarry MD When: Please call to schedule 2 week follow up appointment. [phone] Test Results: Test results from this visit will be discussed in further detail at your follow- up appointment, if applicable. Discharge Plan Admission Attending Provider: Damaso Mcgarry Primary Care Provider: Katherine Munoz Instructions Print Language: Tunisian Discharge Orders/Prescriptions Prescriptions: New oxycodone 5 mg Tablet 5 - 10 mg PO Q4H PRN PRN (Reason: Pain Score 4-10) 5 Days Qty: 14 0RF No Action topiramate 200 mg tablet 200 mg PO QHS carbamazepine 200 mg tablet 200 mg PO DAILY baclofen 10 mg tablet 10 mg PO TID quetiapine [Seroquel] 300 mg tablet 300 mg PO QHS hydroxychloroquine 200 mg tablet 200 mg PO BID (DME) Handicap Placard See Rx Instructions .ROUTE .MEDSUPPLY Qty: 1 0RF Rx Instructions: As directed, length of time 3 years (DME) wheelchair See Rx Instructions .Route .MEDSUPPLY Qty: 1 0RF Rx Instructions: As directed folic acid 1 mg tablet 1 mg PO DAILY quetiapine 400 mg tablet 400 mg PO QHS methotrexate sodium 2.5 mg tablet 25 mg PO TU Rx Instructions: 10 tablets once weekly nortriptyline 10 mg capsule 30 mg PO QHS prazosin 2 mg capsule 4 mg PO QHS Ajovy Autoinjector 225 mg/1.5 mL auto-injector 225 mg subcut QMONTH (DME) Rollator walker See Rx Instructions .Route .MEDSUPPLY Qty: 1 0RF Rx Instructions: As directed epinephrine [EpiPen 2-Raymond] 0.3 mg/0.3 mL auto-injector 0.3 mg IM Q5-15M PRN (Reason: anaphylaxis) Qty: 2 1RF Rx Instructions: do not exceed 3 doses per episode Metamucil (sugar) Powder 1 tbsp PO .COMPLEX PRN (Reason: constipation) Rx Instructions: 1 tbsp orally twice a week PRN; 3x/wk lactulose 10 gram/15 mL (15 mL) solution 15 ml PO TID Qty: 300 0RF pantoprazole 40 mg tablet,delayed release (DR/EC) 40 mg PO DAILY Qty: 90 1RF promethazine 25 mg tablet 25 mg PO BID PRN (Reason: nausea and vomiting) Qty: 30 1RF cholecalciferol (vitamin D3) 1,250 mcg (50,000 unit) capsule 1,250 mcg PO QWEEK levetiracetam 1,000 mg tablet 1,000 mg PO BID buspirone 10 mg tablet 10 mg PO .2-4X PER DAY Emgality Pen 120 mg/mL pen injector 120 mg SUBCUT DAILY PRN (Reason: migraine headache) Patient Comments: [NO ORIGINAL SIG] oxycodone-acetaminophen 5-325 mg tablet 1 tab PO Q6H PRN PRN (Reason: Pain) 3 Days Qty: 12 0RF (DME) Handicap Placard See Rx Instructions .Route .MEDSUPPLY Qty: 1 0RF Rx Instructions: As directed, length of time 3 years (DME) Ultra-Light Rollator Misc See Rx Instructions .Route Qty: 1 0RF Rx Instructions: As directed (DME) Ultra-Light Rollator Misc See Rx Instructions .Route Qty: 1 0RF Rx Instructions: As directed Ubrelvy 100 mg tablet 100 mg PO DAILY PRN (Reason: migraine headache) Qty: 10 0RF simvastatin 20 mg tablet 20 mg PO QPM Qty: 90 1RF Linzess 145 mcg capsule 145 mcg PO QDAY Qty: 90 1RF scopolamine base 1 mg over 3 days patch 3 day 1 patch transdermal Q3D PRN (Reason: nausea and vomiting) Qty: 10 1RF gabapentin 600 mg tablet 600 mg PO TID Qty: 90 1RF dicyclomine 10 mg capsule 10 mg PO BID PRN (Reason: abdominal pain) Qty: 120 0RF prochlorperazine maleate [Compazine] 10 mg tablet 10 mg PO Q8H PRN (Reason: nausea and vomiting) Qty: 90 0RF ondansetron 4 mg tablet,disintegrating 4 mg PO Q6H PRN (Reason: nausea and vomiting) Qty: 60 1RF Referrals / Follow Up: Katherine Munoz MD [Primary Care Provider] - Disposition Disposition (needs filled in before D/C Order can be placed): Home, Self Care 10/13/24 1331<Electronically signed by Damaso Mcgarry MD>Damaso Mcgarry MD CC: Dr. Katherine Munoz MD ~ Signed [facility] Work Phone: 1(204) 638-371407-07-2025 History and physical note Author [facility] Note Date/Time October 13, 2024 3:59p m [facility] Medical Records Department [address] [place] [address] History & Physical Exam 10/13/24 1225 MR#: [id number] Acct: [id number] Name: CRYS FRANKS Rep #:[id number] : 1975 49 From: Damaso vasques MD PCP: Dr. Katherine Munoz MD Status:R [facility] Location: [place] [address] History and Physical Date of Admission: 10/13/24 Intake Vital Signs 09/24/2512:17 10/02/2507:54 Height 5 ft 7 in 5 ft 7 in Weight: 186 lb BMI 29.1 BP 105/71 Blood Pressure Location Lt brachial Position Sitting Respiration 17 Pulse 87 Pulse Source Monitor Pulse Oximetry (%) 95 Oxygen Delivery Method room air Intake Visit Reasons: ED F/U - GALLBLADDER Chief Complaint: ED f/u gallbladder Is patient in pain?: Yes (right sided ache) Allergies venom-honey bee Allergy (Severe, Verified 10/01/24 08:55) severevenom-wasp Allergy (Severe, Verified 10/01/24 08:55) severecoconut Allergy (Intermediate, Verified 10/01/24 08:55) Hivesdoxycycline Allergy (Intermediate, Verified 10/01/24 08:55) Rashmushroom Allergy (Intermediate, Verified 10/01/24 08:55) Hivesciprofloxacin (From Cipro) Allergy (Verified 10/01/24 08:55) Rasherythromycin base Allergy (Verified 10/01/24 08:55) Anaphylaxisiodine Allergy (Verified 10/01/24 08:55) Anaphylaxislatex Allergy (Verified 10/01/24 08:55) Rashmetronidazole (From Flagyl) Allergy (Verified 10/01/24 08:55) Anaphylaxisnaproxen (From Naprosyn) Allergy (Verified 10/01/24 08:55) AnaphylaxisPenicillins Allergy (Verified 10/01/24 08:55) Anaphylaxisshellfish derived Allergy (Verified 10/01/24 08:55) Anaphylaxislithium Adverse Reaction (Intermediate, Verified 10/01/24 08:55) Mood changesadhesive Adverse Reaction (Mild, Verified 10/01/24 08:55) BLISTERSsulfamethoxazole (From Bactrim) Adverse Reaction (Verified 10/01/24 08:55) Hivestrimethoprim (From Bactrim) Adverse Reaction (Verified 10/01/24 08:55) Hives Medications ?Medication ?Instructions ?Recorded ?Confirmed ?Type topiramate 200 mg tablet 200 mg PO QHS headaches 08/15/1810/01/ 5 History Handicap Placard #1 ea 05/03/20 10/01/24 Rx baclofen 10 mg tablet 10 mg PO TID 03/23/21 10/01/24 History walker (Ultra-Light Rollator misc) #1 ea 09/26/21 10/01/24 Rx quetiapine 300 mg tablet (Seroquel) 300 mg PO QHS 02/22/22 10/01/24 History walker (Ultra-Light Rollator misc) #1 ea 08/10/22 10/01/24 Rx hydroxychloroquine 200 mg tablet 200 mg PO BID 08/15/22 10/01/24 History Handicap Placard #1 ea 03/09/23 10/01/24 Rx wheelchair #1 ea 03/09/23 10/01/24 Rx carbamazepine 200 mg tablet 200 mg PO DAILY seizures 04/17/23 History fremanezumab-vfrm 225 mg/1.5 mL 225 mg subcut QMONTH 04/17/23 10/01/24 H istory subcutaneous auto-injector (Ajovy) nortriptyline 10 mg capsule 30 mg PO QHS 04/17/23 10/01/24 History prazosin 2 mg capsule 4 mg PO QHS 04/17/23 10/01/24 History folic acid 1 mg tablet 1 mg PO DAILY 06/08/23 10/01/24 History quetiapine 400 mg tablet 400 mg PO QHS 06/08/23 10/01/24 History cholecalciferol (vitamin D3) 1,250 1,250 mcg PO QWEEK 08/31/23 10/01/24 His tory mcg (50,000 unit) capsule Rollator walker #1 ea 02/21/24 10/01/24 Rx epinephrine 0.3 mg/0.3 mL 0.3 mg (0.3 mL) IM Q5-15M PRN 02/22/24 0 10/01/24 Rx injection, auto-injector (EpiPen anaphylaxis #2 ea 2-Raymond) ubrogepant 100 mg tablet (Ubrelvy) 100 mg PO DAILY PRN migraine 04/04/24 10/01/24 Rx headache #10 tabs methotrexate sodium 2.5 mg tablet 25 mg PO TU 04/28/24 10/01/24 History psyllium seed (sugar) oral powder 1 tbsp PO .3x/wk 04/28/24 10/01/24 Histo ry (Metamucil (sugar) oral powder) simvastatin 20 mg tablet 20 mg PO QPM #90 tabs 04/30/24 10/01/24 Rx lactulose 10 gram/15 mL (15 mL) 15 ml PO TID #300 mL 07/09/24 10/01/24 R x oral solution pantoprazole 40 mg tablet,delayed 40 mg PO DAILY #90 tabs 07/09/2410/01/ 5 Rx release promethazine 25 mg tablet 25 mg PO BID PRN nausea and 07/09/24 Rx vomiting #30 tabs linaclotide 145 mcg capsule 145 mcg PO QDAY #90 caps 08/05/24 Rx (Linzess) scopolamine base 1 mg over 3 days 1 patch transdermal Q3D PRN nausea 08/1310/01/24 Rx transdermal patch and vomiting #10 ea gabapentin 600 mg tablet 600 mg PO TID nerve pain #90 tabs 10/01/24 Rx levetiracetam 1,000 mg tablet 1,000 mg PO BID 08/21/24 10/01/24 Histor y dicyclomine 10 mg capsule 10 mg PO BID PRN abdominal pain 09/23/24 10/01/24 Rx #120 caps ondansetron 4 mg disintegrating 4 mg PO Q6H PRN nausea and 09/23/2409/08 Rx tablet vomiting #60 tabs prochlorperazine maleate 10 mg 10 mg PO Q8H PRN nausea and 09/23/24 Rx tablet (Compazine) vomiting #90 tabs oxycodone-acetaminophen 5 mg-325 1 tab PO Q8H PRN pain 5 days #15 5 10/01/24 Rx mg tablet (Percocet) tabs PFSH Medical History Esophagitis Spinal cord stimulator status Difficult intravenous access Esophageal dilatation Gastroparesis Chronic nausea Screening for thyroid disorder Galactorrhea Blurry vision GERD (gastroesophageal reflux disease) High cholesterol PTSD (post-traumatic stress disorder) History of stress test History of echocardiogram Cardiology follow-up encounter Chest pain Syncope Palpitations Hyperlipidemia Bradycardia Hematemesis of unknown cause Degenerative disc disease Superior glenoid labrum lesion of right shoulder Constipation Early satiety Rotator cuff injury Right shoulder pain Cough Nausea and vomiting Epigastric pain Flu vaccine need Lupus Debility Chronic lumbar radiculopathy Health care maintenance Hematemesis Vomiting Elevated antinuclear antibody (PAT) level Positive P-ANCA titer GI bleed Colon polyp Fatty liver Sludge in gallbladder Post-menopausal Anxiety Seizures Smoker Wheelchair dependent Wheel chair as ambulatory aid Foot pain, left Lower GI bleeding Dysphagia Elevated blood pressure reading Hypokalemia Abdominal pain UTI (urinary tract infection) Uterine cancer Cervical cancer Interstitial cystitis Acute cystitis Hematuria Flank pain Fibromyalgia Blurry vision, left eye Dizziness Headache Fall Postoperative pain Acute pain of left foot Postoperative wound infection Cellulitis Incisional hernia Gastroesophageal reflux disease Urinary frequency Urge incontinence Urinary urgency Migraines Lamar's palsy Depression with anxiety Ulcer Lipoma Stroke Seizures Osteoarthritis Neuropathy Kidney stones Irritable bowel syndrome Hives Hearing problem Carpal tunnel syndrome Arthritis Seasonal allergies Surgical History History of repair of rotator cuff Hx of surgical procedure History of colonoscopy History of esophagogastroduodenoscopy (EGD) Hx of surgical procedure Status post left foot surgery S/P left knee surgery S/P umbilical hernia repair, follow-up exam History of bladder repair surgery History of spinal surgery History of appendectomy History of hysterectomy History of orthopedic surgery History of carpal tunnel surgery of right wrist Family History Father AsthmaGrandfather No problems noted. Grandmother AsthmaBrother Lung cancer Diabetes HypertensionGrandfather AsthmaGrandmother Asthma HypertensionMother DiabetesAunt DiabetesSon Seizures Asthma Social History (Updated 10/01/24 @ 08:54 by Mili Katz) Smoking Status: Light Smoker (<10/day) quit status: considering quitting alcohol intake: never substance use type: does not use caffeine: No what type of physical activity do you participate in: none HPI HPI HPI: Patient is a 49-year-old female with a lot of comorbidities that comes in with right upper quadrant pain. She says been going on for several years. She recently saw GI and had a EGD which showed erosive gastropathy with duodenitis. Patient reports that she is constantly nauseated and has difficulty eating certain foods. ROS General General: Yes weight change; No appetite, fatigue, colon cancer, breast cancer or weakness Additional Details: wt loss over past few months. HEENT HEENT: Yes difficulty swallowing; No eye injury, eye surgery, swollen glands or hoarseness Endo Endocrine: No thyroid disease, diabetes mellitus, thyroid cancer, Hair loss, heat intolerance or cold intolerance Skin Skin: No rash or changing moles Musc Musculoskeletal: Yes back problems, arthritis and rheumatoid arthritis; No gout or joint pain Cardio Cardiovascular: No murmur, pacemaker, heart disease, atrial fibrillation, high blood pressure, heart attack, heart stent, palpitations, shortness of breath with exertion or chest pain Psych Psychiatric: No depression, anxiety or hearing voices Resp Respiratory: No shortness of breath, No sleep apnea, No cough, No COPD, No asthma, No emphysema and No wheezing Gastro Gastrointestinal: Yes abdominal pain, Yes nausea or vomiting, Yes diarrhea, Yes constipation, No blood in stool, Yes acid reflux, No hemorrhoids, No ulcers, Yesgallbladder problem and No black,tarry stools Esteban Hematologic: No blood thinners, No blood disorders, No bleeding, Yes anemia and No blood clots Neuro Neurologic: No system reviewed and no additional complaints, except as documented, No as per HPI, No abnormal gait, No abnormal hearing, No abnormal movements, No abnormal speech, No behavioral changes, No burning sensations, No confusion, No convulsions, No disequilibrium, No dizziness, No localized weakness, No frequent falls, No headache(s), No lack of coordination, No loss ofvision, No memory loss, No numbness, No other visual disturbances, No radicular pain, No restless legs, No sensory deficit, No syncope, No tingling, No tremor(s), No weakness and No other Exam Const General: cooperative Orientation: alert and oriented x3 HENMT Head: normal to inspection Neck Neck: normal visual inspection and full ROM Chest Chest palpation & inspection: normal inspection of the chest Resp Effort & Inspection: normal respiratory effort Auscultation: clear to auscultation bilaterally Cardio Rate: regular rate Rhythm: regular rhythm GI Inspection: non-distended Palpation: soft and nontender Skin General: no rashes or lesions noted Neuro General: patient alert and patient oriented x3 Extrem General: full ROM Psych Appearance: grossly normal Mental Status: mental status grossly normal Assessment and Plan Assessment and Plan (1) Abnormal biliary HIDA scan: Status: Acute Plan: The patient has had several ultrasounds and CT scans that did not show any inflammation around the gallbladder. She had a HIDA that showed no filling of the gallbladder for 2 hours. Unsure as to why her HIDA would not fill the gallbladder if there were no stones but she does say that in the past she has had sludge in her gallbladder as well. I discussed laparoscopic cholecystectomywith the patient in detail. I informed her that this may not take care of her pain as she does have chronic duodenitis and that could be causing her pain. Patient would still likely gallbladder removed. I discussed the procedure in detail with the patient. I discussed the risks, benefits, and alternatives of the procedure. I discussed the risks including but not limited to bleeding, infection, injury to surrounding organs such as theliver, bile duct, bowels. I did discuss the possibility of having to convert odalis open procedure as well as the possibility that if any injuries occurred this may necessitate further surgery at a tertiary care center. Damaso Mcgarry MD Pager: [facility] [address] [place] [address] [address] [place] [address] Office: I have examined the patient and the H&P has been reviewed. There are no clinicalchanges since date of exam. 10/13/24 1225 <Electronically signed by Damaso Mcgarry MD> Cosigner Signature (if applicable): CC: Dr. Damaso Mcgarry MD; Dr. Katherine Munoz MD~ Signed [facility] Work Phone: 1(800) 959-289307-07-2025 Procedure [facility] 10-13-2024 Consult note Author Carlos Chase [facility] Note Date/Time October 13, 2024 11:[address] [facility] Medical Records Department [address] [place] [address] Pre-Anesthesia Evaluation 10/13/24 1116 MR#: [id number] Acct: [id number] Name: CRYS FRANKS Rep #:[id number] : 1975 49 From: Carlos Chase MD PCP: Dr. Katherine Munoz MD Status:R [facility] Y Race: C Location: [place] [address] ASA Classification* ASA Classification ASA Classification: 3 Assessment & Plan Anesthesia* Anesthesia Assessment Anesthesia Assessment: Discussed sedation and/or anesthesia options, risks, benefits, and alternatives with patient/parents/legal guardian/POA. Questions invited. The patient/parents/legal guardian/POA seems to understand and agrees to proceedwith anesthesia plan. Reviewed the physical assessment, medical history, allergy history and patient home medications list prior to surgery/procedure/anesthetic and documented any changes. Performed airway and anesthesia risk assessments. Anesthesia Type Anesthesia Type: General (hx of cva, weakness. consider avoiding SUX) Anesthesia Focused Assessment* Temperature: 97.8 F Pulse Rate: 84 Blood Pressure: 115/99 Respiratory Rate: 16 Pulse Ox: 94 Airway Assessment Mouth opens: >3 cm Mallampati Score: II Labs Anesthesia Preop lab: CBC WBC 5.1 K/mm3 (4.4-11.0) 10/02/24 12:29 10/02/24 RBC 2.99 M/mm3 (4.2-5.4) L 10/02/24 12:29 10/02/24 Hgb 10.7 g/dL (12.0-15.0) L 10/02/24 12: 5 Hct 31.9 % (37-47) L 10/02/24 12:29 10/02/24 Plt Count 141 K/mm3 (150-450) L 10/02/24 12:29 10/02/24 CHEMISTRY Potassium 3.4 mmol/L (3.3-5.1) 10/02/24 12:10/02/24 Sodium 145 mmol/L (133-145) 10/02/24 12:10/02/24 Magnesium 2.1 mg/dL (1.6-2.6) 02/06/24 06:14 02/06/24 BUN 7 mg/dL (4-19) 10/02/24 12:10/02/24 Creatinine 0.68 mg/dL (0.70-1.20) L 10/02/24 12: Glucose 90 mg/dL (70-99) 10/02/24 12:10/02/24 TSH 1.050 uIU/mL (0.358-3.740) 04/28/24 11:23 04/10 COAG PT 12.7 SECONDS (11.7-14.9) 07/13/21 17:40 HCG, Quant 6 mIU/mL (1-3) H 02/02/22 17:44 02/02/22 Urine Test Negative Negative 12/07/22 15:45 12/07/22 Pre-Assessment Diagnosis/Proposed Procedure Planned Operative Procedure(s): LAP [place]AK[place] WITH GRAMS Anesthesia History Anesthesia History - platform man: Anesthesia History - platform man Hx Hospitalization No 10/03/24 09:57 Any Problems With Anesthesia Yes: N,V HIVES 10/03/24 09:57 Cholinesterase deficiency No 10/03/24 09:57 You/Your Family Experience No 10/03/24 09:57 fever (hyperthermia) with Relationship Recent Exposure to Contagious No 10/13/24 11:03 Disease Does patient have nerve Yes: BLADDER AND SPINAL CORD 10/03/24 09:57 stimulator STIM. WILL HAVE OFF Patient instructed to have device shut off --Does patient have Pacemaker No 10/13/24 11:03 or ICD? When Was Last Pacemaker Check QUESTION #4 FULL TEXT: You/Your Family Experience fever (hyperthermia) with Anesthesia Last Oral Intake Last Oral intake: Last Oral Intake NPO since 16:00 10/13/24 11:03 Meds taken in AM with sips of Yes 10/13/24 11:03 water? 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 - platform man: PONV - platform man Female Yes 10/03/24 09:57 HX of Motion Sickness Yes 10/03/24 09:57 HX of N/V After Surgery Yes 10/03/24 09:57 Non-Smoker No 10/03/24 09:57 Duration of Surgery greater No 10/03/24 09:57 than 60 minutes Number of Risk Factors 3 10/03/24 09:57 PONV Score Moderate Risk 10/03/24 09:57 Height & Weight Height & Weight: Anesthesia: Height & Weight Height 5 ft 7 in 10/13/24 11:03 Weight: 84.368 kg 10/13/24 11:03 Body Mass Index (BMI) 29.1 10/13/24 11:03 Respiratory Assessment Respiratory Assessment - platform man: Respiratory Tract Infection Hx - platform man Hx Respiratory Tract Infection No 10/03/24 09:57 STOP Sleep Apnea STOP Sleep Apnea - platform man: STOP Sleep Apnea - platform man Hx Hypertension No 10/03/24 09:57 Hx Sleep Apnea No 10/03/24 09:57 CPAP BIPAP Do you snore loudly (louder No 10/03/24 09:57 than talking or can be heard Do you often feel tired/ No 10/03/24 09:57 fatigued/ sleepy during daytime? Has anyone observed you stop No 10/03/24 09:57 breathing during sleep? STOP Results Negative 10/03/24 09:57 QUESTION #5 FULL TEXT : Do you snore loudly (louder than talking or can be heard through closed doors)? 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 Specify any problems Hx of Preganancy in last 3 No 10/03/24 09:57 Months Nurse Filling Out Transfusion DSCHRIBER 10/03/24 09:57 & Questions: Date: 10/03/24 10/03/24 09:57 Time: 09:59 10/03/24 09:57 Patient unable to answer at this time (ie. confused, unrespo /Reproduction History /Reproductive History - platform man: /Reproductive Hx- platform man Hx Now No 10/03/24 09:57 Gestational Age (in weeks): EDC: Hx Hx Para Hx Section SAB No 10/03/24 09:57 Active Medications Active Medications: Current Medications Generic Name Dose Route Start Last Admin Trade Name Freq PRN Reason Stop Dose Admin Lactated Ringer's 1,000 mls @ 15 mls/hr 10/13/24 11:00 IV .Q48H LUKAS Clindamycin Phosphate 900 mg in 50 mls @ 75 mls/hr 10/13/24 11:00 Cleocin IV 10/13/24 11:39 INTRAOP ONE PFSH Medical History Erosive gastritis Esophagitis Spinal cord stimulator status Difficult intravenous access Esophageal dilatation Gastroparesis Chronic nausea Galactorrhea GERD (gastroesophageal reflux disease) High cholesterol PTSD (post-traumatic stress disorder) History of stress test History of echocardiogram Cardiology follow-up encounter Bradycardia Degenerative disc disease Superior glenoid labrum lesion of right shoulder Constipation Early satiety Cough Nausea and vomiting Epigastric pain Flu vaccine need Lupus Debility Chronic lumbar radiculopathy Health care maintenance Hematemesis Vomiting Elevated antinuclear antibody (PAT) level Positive P-ANCA titer GI bleed Colon polyp Fatty liver Sludge in gallbladder Post-menopausal Anxiety Seizures Smoker Wheelchair dependent Foot pain, left Lower GI bleeding Dysphagia Elevated blood pressure reading Hypokalemia Abdominal pain UTI (urinary tract infection) Uterine cancer Cervical cancer Interstitial cystitis Acute cystitis Hematuria Flank pain Fibromyalgia Blurry vision, left eye Dizziness Headache Fall Postoperative pain Acute pain of left foot Postoperative wound infection Cellulitis Incisional hernia Gastroesophageal reflux disease Urinary frequency Urge incontinence Urinary urgency Migraines Lamar's palsy Depression with anxiety Ulcer Lipoma Stroke Osteoarthritis Neuropathy Kidney stones Irritable bowel syndrome Hives Hearing problem Carpal tunnel syndrome Arthritis Seasonal allergies Home Medications ?Medication ?Instructions ?Recorded ?Last Taken ?Type topiramate 200 mg tablet 200 mg PO QHS headaches 12/2608/21/24 History Handicap Placard #1 ea 05/03/20 Unknown Rx baclofen 10 mg tablet 10 mg PO TID 03/23/21 06:00 History walker (Ultra-Light Rollator misc) #1 ea 09/26/21 Unkn own Rx quetiapine 300 mg tablet (Seroquel) 300 mg PO QHS 02/0708/21/24 History walker (Ultra-Light Rollator misc) #1 ea 08/10/22 Unkn own Rx hydroxychloroquine 200 mg tablet 200 mg PO BID 3 10/13/24 06:00 History Handicap Placard #1 ea 03/09/23 Unknown Rx wheelchair #1 ea 03/09/23 Unknown Rx carbamazepine 200 mg tablet 200 mg PO DAILY seizures 0 04/17/23 10/13/24 06:00 History fremanezumab-vfrm 225 mg/1.5 mL 225 mg subcut QMONTH 0 04/17/23 10/02/24 History subcutaneous auto-injector (Ajovy) nortriptyline 10 mg capsule 30 mg PO QHS 04/17/2308/07 History prazosin 2 mg capsule 4 mg PO QHS 04/17/23 5 History folic acid 1 mg tablet 1 mg PO DAILY 06/08/2308/21 History quetiapine 400 mg tablet 400 mg PO QHS 06/08/2308/21 History cholecalciferol (vitamin D3) 1,250 1,250 mcg PO QWEEK 08/31/23 08/21/24 History mcg (50,000 unit) capsule Rollator walker #1 ea 02/21/24 Unknown Rx epinephrine 0.3 mg/0.3 mL 0.3 mg (0.3 mL) IM Q5-15M MS N 02/22/24 Unknown Rx injection, auto-injector (EpiPen anaphylaxis #2 ea 2-Raymond) ubrogepant 100 mg tablet (Ubrelvy) 100 mg PO DAILY PRN migraine 04/04/24 Unknown Rx headache #10 tabs methotrexate sodium 2.5 mg tablet 25 mg PO TU 04/28/24 10/07/24 History psyllium seed (sugar) oral powder 1 tbsp PO .COMPLEX P RN constipation 04/28/24 08/21/24 History (Metamucil (sugar) oral powder) simvastatin 20 mg tablet 20 mg PO QPM #90 tabs 08/21/24 Rx lactulose 10 gram/15 mL (15 mL) 15 ml PO TID #300 mL 0 07/09/24 08/21/24 Rx oral solution pantoprazole 40 mg tablet,delayed 40 mg PO DAILY #90 t abs 07/09/24 10/13/24 06:00 Rx release promethazine 25 mg tablet 25 mg PO BID PRN nausea and 07/09/24 08/21/24 Rx vomiting #30 tabs linaclotide 145 mcg capsule 145 mcg PO QDAY #90 caps 0 08/05/24 08/21/24 Rx (Linzess) scopolamine base 1 mg over 3 days 1 patch transdermal Q3D PRN nausea 08/13/24 08/22/24 Rx transdermal patch and vomiting #10 ea gabapentin 600 mg tablet 600 mg PO TID nerve pain #90 tabs 08/20/24 10/13/24 06:00 Rx levetiracetam 1,000 mg tablet 1,000 mg PO BID 08/21/24 10/13/24 06:00 History dicyclomine 10 mg capsule 10 mg PO BID PRN abdominal p ain 09/23/24 Unknown Rx #120 caps ondansetron 4 mg disintegrating 4 mg PO Q6H PRN nausea and 09/23/24 Unknown Rx tablet vomiting #60 tabs prochlorperazine maleate 10 mg 10 mg PO Q8H PRN nausea and 09/23/24 Unknown Rx tablet (Compazine) vomiting #90 tabs buspirone 10 mg tablet 10 mg PO .2-4X PER DAY 10/0210/13/24 06:00 History galcanezumab-gnlm 120 mg/mL 120 mg subcut DAILY PRN mi graine 10/02/24 Unknown History subcutaneous pen injector headache (Emgality Pen) oxycodone-acetaminophen 5 mg-325 1 tab PO Q6H PRN PRN Pain 3 days 10/02/24 Unknown Rx mg tablet #12 TABLETS Allergy/AdvReac Type Severity Reaction Status Date / Time venom-honey bee Allergy Severe severe Verified 10/13/24 10:59 venom-wasp Allergy Severe severe Verified 10/13/24 10:59 coconut Allergy Intermediate Hives Verified 10/13/24 10:59 doxycycline Allergy Intermediate Rash Verified 10/13/24 10:59 mushroom Allergy Intermediate Hives Verified 10/13/24 10:59 ciprofloxacin (From Cipro) Allergy Rash Verified 10/13/24 10:59 erythromycin base Allergy Anaphylaxis Verified 10/13/24 10:59 iodine Allergy Anaphylaxis Verified 10/13/24 10:59 latex Allergy Rash Verified 10/13/24 10:59 metronidazole (From Flagyl) Allergy Anaphylaxis Verified 10/13/24 10:59 naproxen (From Naprosyn) Allergy Anaphylaxis Verified 10/13/24 10:59 Penicillins Allergy Anaphylaxis Verified 10/13/24 10:59 shellfish derived Allergy Anaphylaxis Verified 10/13/24 10:59 lithium AdvReac Intermediate Mood Verified 10/13/24 10:59 changes adhesive AdvReac Mild BLISTERS Verified 10/13/24 10:59 sulfamethoxazole (From AdvReac Hives Verified 10/13/24 10:59 Bactrim) trimethoprim (From Bactrim) AdvReac Hives Verified 10/13/24 10:59 Family History Father Asthma Grandfather No problems noted. Grandmother Asthma Brother Lung cancer Diabetes Hypertension Grandfather Asthma Grandmother Asthma Hypertension Mother Diabetes Aunt Diabetes Son Seizures Asthma Surgical History Hx of surgical procedure History of colonoscopy History of esophagogastroduodenoscopy (EGD) Hx of surgical procedure Status post left foot surgery S/P left knee surgery S/P umbilical hernia repair, follow-up exam History of bladder repair surgery History of spinal surgery History of appendectomy History of hysterectomy History of orthopedic surgery History of carpal tunnel surgery of right wrist Social History Smoking Status: Light Smoker (<10/day) quit status: considering quitting alcohol intake: never substance use type: does not use caffeine: No what type of physical activity do you participate in: none Review of Systems (Anesthesia) ROS Narrative System reviewed and no additional complaints, except as documented. 10/13/24 1118 <Electronically signed by Carlos Chase MD > Date _ Carlos Chase MD [facility] Signature: Date CC: ~ Signed [facility] Work Phone: [phone]) 449-128307-07-2025 [facility]06-18-2025 Radiology Diagnostic study [facility]06-18-2025 Discharge summary Author Daniel Pena [facility] Note Date/Time September 24, 2024 6:35 pm [facility] Medical Records Department [address] [place] [address] Emergency Department Summary 09/24/24 MR#: [id number] Acct: [id number] Name: CRYS FRANKS Rep #:[id number] : 1975 49 From: Daniel Pena MD PCP: Dr. Katherine Munoz MD Status:R EG ER Location: ED HPI History of Present Illness Chief Complaint: Abd Pain Detail of Chief Complaint: Severe right upper quadrant pain that started 2 days ago. Informant: patient Onset/Context/Timing Onset: Days Context: Sudden Onset Timing: Continuous Quality: Severe colicky right upper quadrant pain Location: Right upper quadrant pain radiating through to her back Current Severity: Severe Maximum Severity: Severe Worsened by: Anytime she attempts to eat or drink anything Relieved by: Nothing Associated Symptoms Associated Symptoms: Nausea and vomiting Narrative Narrative: Patient is a 49-year-old woman. She has undergone workup for right upper quadrant pain. She had an ultrasound that was performed on November 29, 2023 thatwas unremarkable. She has had 2 CAT scans which revealed normal gallbladder. She had a HIDA scan on September 2024 which revealed cholecystitis based on interpretation. Spoke with Dr. Bernardo radiologist to confirm meaning of the HIDA scan. Patient denies fever, chills night sweats. Patient does have history of renal calculi. She denies pain rating to her groin. She denies dysuria, frequency, urgency or hematuria. Patient denies bruising. Denies trauma. Patient denies respiratory or cardiac symptoms. Patient had recent EGD performed by Dr. Diaz August 22, 2024. Impression normal esophagus, erosive gastropathy with no stigmata of recent bleeding. Evidence also of chronic duodenitis. Biopsy of the gastric tissue and duodenal tissue was obtained. Prior similar symptoms: Yes Recent Illness/Hospitalization: No PFSH PFS Medical History Esophagitis Spinal cord stimulator status Difficult intravenous access Esophageal dilatation Gastroparesis Chronic nausea Screening for thyroid disorder Galactorrhea Blurry vision GERD (gastroesophageal reflux disease) High cholesterol PTSD (post-traumatic stress disorder) History of stress test History of echocardiogram Cardiology follow-up encounter Chest pain Syncope Palpitations Hyperlipidemia Bradycardia Hematemesis of unknown cause Degenerative disc disease Superior glenoid labrum lesion of right shoulder Constipation Early satiety Rotator cuff injury Right shoulder pain Cough Nausea and vomiting Epigastric pain Flu vaccine need Lupus Debility Chronic lumbar radiculopathy Health care maintenance Hematemesis Vomiting Elevated antinuclear antibody (PAT) level Positive P-ANCA titer GI bleed Colon polyp Fatty liver Sludge in gallbladder Post-menopausal Anxiety Seizures Smoker Wheelchair dependent Wheel chair as ambulatory aid Foot pain, left Lower GI bleeding Dysphagia Elevated blood pressure reading Hypokalemia Abdominal pain UTI (urinary tract infection) Uterine cancer Cervical cancer Interstitial cystitis Acute cystitis Hematuria Flank pain Fibromyalgia Blurry vision, left eye Dizziness Headache Fall Postoperative pain Acute pain of left foot Postoperative wound infection Cellulitis Incisional hernia Gastroesophageal reflux disease Urinary frequency Urge incontinence Urinary urgency Migraines Lamar's palsy Depression with anxiety Ulcer Lipoma Stroke Seizures Osteoarthritis Neuropathy Kidney stones Irritable bowel syndrome Hives Hearing problem Carpal tunnel syndrome Arthritis Seasonal allergies Home Medications ?Medication ?Instructions ?Recorded ?Last Taken ?Type topiramate 200 mg tablet 200 mg PO QHS headaches 05/0 /08/21/24 History Handicap Placard #1 ea 05/03/20 Unknown Rx baclofen 10 mg tablet 10 mg PO TID 03/23/21 History walker (Ultra-Light Rollator misc) #1 ea 09/26/21 Unkn own Rx quetiapine 300 mg tablet (Seroquel) 300 mg PO QHS 02/0708/21/24 History walker (Ultra-Light Rollator misc) #1 ea 08/10/22 Unkn own Rx hydroxychloroquine 200 mg tablet 200 mg PO BID 3 08/22/24 History Handicap Placard #1 ea 03/09/23 Unknown Rx wheelchair #1 ea 03/09/23 Unknown Rx carbamazepine 200 mg tablet 200 mg PO DAILY seizures 0 04/17/23 08/22/24 History fremanezumab-vfrm 225 mg/1.5 mL 225 mg subcut QMONTH 0 04/17/23 Unknown History subcutaneous auto-injector (Ajovy) nortriptyline 10 mg capsule 30 mg PO QHS 04/17/2308/07 History prazosin 2 mg capsule 4 mg PO QHS 04/17/23 5 History folic acid 1 mg tablet 1 mg PO DAILY 06/08/2308/21 History quetiapine 400 mg tablet 400 mg PO QHS 06/08/2308/21 History cholecalciferol (vitamin D3) 1,250 1,250 mcg PO QWEEK 08/31/23 08/21/24 History mcg (50,000 unit) capsule Rollator walker #1 ea 02/21/24 Unknown Rx buspirone 10 mg tablet 10 mg PO .qid 02/21/2408/22 History epinephrine 0.3 mg/0.3 mL 0.3 mg (0.3 mL) IM Q5-15M MS N 02/22/24 Unknown Rx injection, auto-injector (EpiPen anaphylaxis #2 ea 2-Raymond) ubrogepant 100 mg tablet (Ubrelvy) 100 mg PO DAILY PRN migraine 04/04/24 Unknown Rx headache #10 tabs methotrexate sodium 2.5 mg tablet 25 mg PO TU 04/28/24 08/21/24 History psyllium seed (sugar) oral powder 1 tbsp PO .3x/wk 08/21/24 History (Metamucil (sugar) oral powder) simvastatin 20 mg tablet 20 mg PO QPM #90 tabs 08/21/24 Rx lactulose 10 gram/15 mL (15 mL) 15 ml PO TID #300 mL 0 07/09/24 08/21/24 Rx oral solution pantoprazole 40 mg tablet,delayed 40 mg PO DAILY #90 t abs 07/09/24 08/22/24 Rx release promethazine 25 mg tablet 25 mg PO BID PRN nausea and 07/09/24 08/21/24 Rx vomiting #30 tabs linaclotide 145 mcg capsule 145 mcg PO QDAY #90 caps 0 08/05/24 08/21/24 Rx (Linzess) scopolamine base 1 mg over 3 days 1 patch transdermal Q3D PRN nausea 08/13/24 08/22/24 Rx transdermal patch and vomiting #10 ea gabapentin 600 mg tablet 600 mg PO TID nerve pain #90 tabs 08/20/24 08/22/24 Rx levetiracetam 1,000 mg tablet 1,000 mg PO BID 08/21/24 08/22/24 History dicyclomine 10 mg capsule 10 mg PO BID PRN abdominal p ain 09/23/24 Unknown Rx #120 caps ondansetron 4 mg disintegrating 4 mg PO Q6H PRN nausea and 09/23/24 Unknown Rx tablet vomiting #60 tabs prochlorperazine maleate 10 mg 10 mg PO Q8H PRN nausea and 09/23/24 Unknown Rx tablet (Compazine) vomiting #90 tabs oxycodone-acetaminophen 5 mg-325 1 tab PO Q8H PRN pain 5 days #15 09/24/24 Unknown Rx mg tablet (Percocet) tabs Allergy/AdvReac Type Severity Reaction Status Date / Time venom-honey bee Allergy Severe severe Verified 09/24/24 13:17 venom-wasp Allergy Severe severe Verified 09/24/24 13:17 coconut Allergy Intermediate Hives Verified 09/24/24 13:17 doxycycline Allergy Intermediate Rash Verified 09/24/24 13:17 mushroom Allergy Intermediate Hives Verified 09/24/24 13:17 ciprofloxacin (From Cipro) Allergy Rash Verified 09/24/24 13:17 erythromycin base Allergy Anaphylaxis Verified 09/24/24 13:17 iodine Allergy Anaphylaxis Verified 09/24/24 13:17 latex Allergy Rash Verified 09/24/24 13:17 metronidazole (From Flagyl) Allergy Anaphylaxis Verified 09/24/24 13:17 naproxen (From Naprosyn) Allergy Anaphylaxis Verified 09/24/24 13:17 Penicillins Allergy Anaphylaxis Verified 09/24/24 13:17 shellfish derived Allergy Anaphylaxis Verified 09/24/24 13:17 lithium AdvReac Intermediate Mood Verified 09/24/24 13:17 changes adhesive AdvReac Mild BLISTERS Verified 09/24/24 13:17 sulfamethoxazole (From AdvReac Hives Verified 09/24/24 13:17 Bactrim) trimethoprim (From Bactrim) AdvReac Hives Verified 09/24/24 13:17 Family History Father Asthma Grandfather No problems noted. Grandmother Asthma Brother Lung cancer Diabetes Hypertension Grandfather Asthma Grandmother Asthma Hypertension Mother Diabetes Aunt Diabetes Son Seizures Asthma Surgical History History of repair of rotator cuff Hx of surgical procedure History of colonoscopy History of esophagogastroduodenoscopy (EGD) Hx of surgical procedure Status post left foot surgery S/P left knee surgery S/P umbilical hernia repair, follow-up exam History of bladder repair surgery History of spinal surgery History of appendectomy History of hysterectomy History of orthopedic surgery History of carpal tunnel surgery of right wrist Social History Smoking Status: Light Smoker (<10/day) alcohol intake: never substance use type: does not use caffeine: No what type of physical activity do you participate in: none ROS ROS ED Constitutional Constitutional ED: Denies chills, fever(s), subjective or sweats ENT ENT ED: Denies rhinorrhea or sore throat Cardiovascular Cardiovascular: Denies chest pain or palpitations Respiratory/Chest Respiratory/Chest: Denies cough, dyspnea or dyspnea on exertion Gastrointestinal Gastrointestinal: Reports abdominal pain, nausea and vomiting; Denies constipation, diarrhea or melena Genitourinary Genitourinary ED: Denies dysuria, hematuria or urinary frequency Musculoskeletal Musculoskeletal: Reports back pain; Denies arthralgias or myalgias Integumentary Denies abscess, Abrasions or rash Neurologic Neurologic: Denies headache(s), paresthesias or weakness Psychiatric Psychiatric: Reports anxiety Hematologic/Lymphatic Hematologic/Lymphatic: Reports systems reviewed and no addt'l complaints, exceptas documented EXAM Physical Exam Const Vital Signs: 09/24/24 13:17 09/24/24 15:27 09/24/24 18:27 Temperature 98.8 F Temperature Source Oral Pulse Rate 87 83 77 Respiratory Rate 17 16 16 Blood Pressure 108/52 L 110/60 134/71 H Blood Pressure Mean 70 76 92 Pulse Ox 98 96 99 Oxygen Delivery Method Room Air Room Air Room Air Positive well nourished and well developed Constitutional Narrative: Patient is in obvious discomfort. She has her hand up against her right upper quadrant rotating. General Appearance ED: well developed and pallor; Negative for cyanotic, diaphoretic or NAD HEENT Reports dry mucous membranes HEENT Narrative: Head is atraumatic normocephalic. Ears normal. Nares patent. Mouth ED: Yes dry mucous membranes Mouth: dry mucous membranes Eyes PERRL and EOMs intact bilaterally General Eye ED: Negative for pale conjunctiva or scleral icterus Neck no lymphadenopathy, supple and no JVD Chest Wall inspection of chest normal and palpation of chest normal Resp normal respiratory effort and clear to auscultation bilaterally Cardio regular rate, regular rhythm, S1 normal heart sound, S2 normal heart sound and no murmurs GI non-distended and no masses; Negative for normal to inspection, nondistended, normoactive bowel sounds, non-tender or hepatosplenomegaly Auscultation: hypoactive bowel sounds Palpation: soft, tender RUQ and Greenberg's sign and guarding RUQ Back/Spine no CVA tenderness Extremity normal to inspection General Extremety ED: Negative for edema or tenderness General Extremity: Negative for edema Neuro oriented x3 and CN's II-XII intact bilaterally Sensorium / Orientation: alert Psych mental status grossly normal Skin no rashes or lesions noted, no wounds and skin turgor normal General Skin Exam: pallor; Negative for jaundice MDM MDM MDM Narrative Medical decision making narrative: With right upper quadrant pain nurses entered nurse protocol orders. Liver and lipase was ordered in addition in light of patient having an abnormal HIDA scan. As previously mentioned her CT ultrasound were nondiagnostic. She was medicated with Zofran and morphine. She received Zofran prior to arrival by squad. Since she is in obvious discomfort concerned this represents biliary disease. Case was discussed with Dr. Mcgarry. He requested an ultrasound. Lab Data Attestation: I reviewed the patient's lab results. Lab results narrative: Patient is neutropenic and anemic. She has been neutropenic and anemic in the past. MCV is elevated at 104.7. Liver enzymes are essentially normal. Lipase is normal. Electrolyte panel is normal. Labs: Laboratory Results - last 24 hr 09/24/24 14:00 WBC 3.7 L RBC 2.98 L Hgb 10.8 L Hct 31.2 L MCV 104.7 H MCH 36.2 H MCHC 34.6 RDW Std Deviation 49.3 H RDW Coeff of Karina 13.1 Plt Count 164 MPV 11.2 Immature Gran % (Auto) 0.300 Neut % (Auto) 45.9 L Lymph % (Auto) 42.3 H Schley % (Auto) 7.7 Eos % (Auto) 3.3 Baso % (Auto) 0.5 Absolute Neuts (auto) 1.7 L Absolute Lymphs (auto) 1.55 Nucleated RBC % 0 Sodium 140 Potassium 3.4 Chloride 107 Carbon Dioxide 22.2 Anion Gap 11 BUN 10 Creatinine 0.86 Estim Creat Clear Calc 88.61 Est GFR (MDRD) Non-Af 83 BUN/Creatinine Ratio 12.0 Glucose 91 Calcium 8.7 Total Bilirubin 0.20 Direct Bilirubin 0.11 AST 20 ALT 12 Alkaline Phosphatase 106 H Total Protein 6.8 Albumin 4.1 Globulin 2.7 Lipase 16 Radiography Diagnostic Testing: Clinical Impression(s) from Imaging Studies Gallbladder Ultrasound 09/24/24 15:18 IMPRESSION: No acute cholecystitis. Hepatomegaly. Reading Location: [facility] Dr. Mcgarry was made aware of the ultrasound findings. Plan is discharge with pain medicine and outpatient follow-up with him. Management Discussion w/another healthcare provider: Health And Safety Advisor (Spoke with Dr. Mcgarry who is on-call for surgery.) Treatment and Re-Evaluation :: Patient was informed of results. She is agreeable with plan. Discharge Plan Triage Chief Complaint: Abd Pain ED Provider: Daniel Pena Dx/Rx/DC Orders Clinical Impression: Abdominal pain, acute, right upper quadrant, Abnormal biliary HIDA scan, Nausea& vomiting, Gastritis, Chronic duodenitis Instructions: ED Pain, Acute, Uncertain Cause Prescriptions: New oxycodone-acetaminophen [Percocet] 5-325 mg tablet 1 tab PO Q8H PRN (Reason: pain) 5 Days Qty: 15 0RF No Action topiramate 200 mg tablet 200 mg PO QHS carbamazepine 200 mg tablet 200 mg PO DAILY Patient Comments: 1 Tab AM & 2 PM baclofen 10 mg tablet 10 mg PO TID quetiapine [Seroquel] 300 mg tablet 300 mg PO QHS hydroxychloroquine 200 mg tablet 200 mg PO BID (DME) Handicap Placard See Rx Instructions .ROUTE .MEDSUPPLY Qty: 1 0RF Rx Instructions: As directed, length of time 3 years (DME) wheelchair See Rx Instructions .Route .MEDSUPPLY Qty: 1 0RF Rx Instructions: As directed folic acid 1 mg tablet 1 mg PO DAILY quetiapine 400 mg tablet 400 mg PO QHS methotrexate sodium 2.5 mg tablet 25 mg PO TU Rx Instructions: 10 tablets once weekly nortriptyline 10 mg capsule 30 mg PO QHS prazosin 2 mg capsule 4 mg PO QHS Ajovy Autoinjector 225 mg/1.5 mL auto-injector 225 mg subcut QMONTH (DME) Rollator walker See Rx Instructions .Route .MEDSUPPLY Qty: 1 0RF Rx Instructions: As directed epinephrine [EpiPen 2-Raymond] 0.3 mg/0.3 mL auto-injector 0.3 mg IM Q5-15M PRN (Reason: anaphylaxis) Qty: 2 1RF Rx Instructions: do not exceed 3 doses per episode Metamucil (sugar) Powder 1 tbsp PO .3x/wk Rx Instructions: 3x/wk lactulose 10 gram/15 mL (15 mL) solution 15 ml PO TID Qty: 300 0RF pantoprazole 40 mg tablet,delayed release (DR/EC) 40 mg PO DAILY Qty: 90 1RF promethazine 25 mg tablet 25 mg PO BID PRN (Reason: nausea and vomiting) Qty: 30 1RF cholecalciferol (vitamin D3) 1,250 mcg (50,000 unit) capsule 1,250 mcg PO QWEEK buspirone 10 mg tablet 10 mg PO .qid levetiracetam 1,000 mg tablet 1,000 mg PO BID (DME) Handicap Placard See Rx Instructions .Route .MEDSUPPLY Qty: 1 0RF Rx Instructions: As directed, length of time 3 years (DME) Ultra-Light Rollator Misc See Rx Instructions .Route Qty: 1 0RF Rx Instructions: As directed (DME) Ultra-Light Rollator Misc See Rx Instructions .Route Qty: 1 0RF Rx Instructions: As directed Ubrelvy 100 mg tablet 100 mg PO DAILY PRN (Reason: migraine headache) Qty: 10 0RF simvastatin 20 mg tablet 20 mg PO QPM Qty: 90 1RF Linzess 145 mcg capsule 145 mcg PO QDAY Qty: 90 1RF scopolamine base 1 mg over 3 days patch 3 day 1 patch transdermal Q3D PRN (Reason: nausea and vomiting) Qty: 10 1RF gabapentin 600 mg tablet 600 mg PO TID Qty: 90 1RF dicyclomine 10 mg capsule 10 mg PO BID PRN (Reason: abdominal pain) Qty: 120 0RF prochlorperazine maleate [Compazine] 10 mg tablet 10 mg PO Q8H PRN (Reason: nausea and vomiting) Qty: 90 0RF ondansetron 4 mg tablet,disintegrating 4 mg PO Q6H PRN (Reason: nausea and vomiting) Qty: 60 1RF Primary Care Provider: Katherine Munoz Referrals: Damaso Mcgarry MD [Med Staff - Active Staff] - 1 Week Katherine Munoz MD [Primary Care Provider] - Print Language: Tunisian Disposition Disposition: Home, Self Care What to do if you have Problems For any increased pain, shortness of breath, bleeding, nausea or vomiting, chestpain, or any unexpected problems, contact your Primary Care Provider. Call [facility] ([phone]) or report to the closest Emergency Room. Call 911 if necessary. 09/24/24 4941 <Electronically signed by Daniel Pena MD> Cosigner Signature (if applicable): CC: Dr. Katherine Munoz MD ~ Signed [facility] Work Phone: 1(444) 974-729806-13-2025 Nuclear medicine Diagnostic study note [facility]06-12-2025 Telephone encounter Note* Telephone Encounter - Julisa Jimenez LPN - 09/18/2024 12:36 PM EDT Pharmacy requesting the following refill. Requested Prescriptions Pending Prescriptions Disp Refills methotrexate 2.5 mg tablet [Pharmacy Med Name: Methotrexate 2.5MG TABS] 40 tablet 2 Sig: TAKE 10 TABLETS BY MOUTH EVERY WEEK hydrOXYchloroQUINE (PLAQUENIL) 200 mg tablet [Pharmacy Med Name: Hydroxychloroquine Sulfate 200MG TABS] 56 tablet 2 Sig: TAKE 1 TABLET BY MOUTH TWICE A DAY folic acid 1 mg tablet [Pharmacy Med Name: Folic Acid 1MG TABS] 28 tablet 2 Sig: TAKE 1 TABLET BY MOUTH DAILY Patient last appointment: 01/03/2024 Next Appointment: 09/22/2024 Patient Phone numbers: [phone] (home) Request is for script(s) to be escript to pharmacy. [facility] [place] - [address] [place] [address] - [address] [facility] [phone] Julisa Jimenez LPN [facility]06-12-2025 Miscellaneous Notes* Telephone Encounter - Julisa Jimenez LPN - 09/18/2024 12:36 PM EDT Pharmacy requesting the following refill. Requested Prescriptions Pending Prescriptions Disp Refills methotrexate 2.5 mg tablet [Pharmacy Med Name: Methotrexate 2.5MG TABS] 40 tablet 2 Sig: TAKE 10 TABLETS BY MOUTH EVERY WEEK hydrOXYchloroQUINE (PLAQUENIL) 200 mg tablet [Pharmacy Med Name: Hydroxychloroquine Sulfate 200MG TABS] 56 tablet 2 Sig: TAKE 1 TABLET BY MOUTH TWICE A DAY folic acid 1 mg tablet [Pharmacy Med Name: Folic Acid 1MG TABS] 28 tablet 2 Sig: TAKE 1 TABLET BY MOUTH DAILY Patient last appointment: 01/03/2024 Next Appointment: 09/22/2024 Patient Phone numbers: [phone] (home) Request is for script(s) to be escript to pharmacy. [facility] [address] [place] [address] - [address] [phone] Julisa Jimenez LPN [facility] Telephone encounter Note * Telephone Encounter - Pebbles Victor - 09/17/2024 11:29 AM EDT Left VM to reschedule 09/17/24 Pebbles Victor [facility]06-11-2025 Miscellaneous Notes* Telephone Encounter - Pebbles Victor - 09/17/2024 11:29 AM EDT Left VM to reschedule 09/17/24 Pebbles Victor * Telephone Encounter - Julisa Jimenez LPN - 09/17/2024 7:48 AM EDT Fara, Please reach out and schedule an appointment. Thanks. Julisa Jimenez LPN [facility] Telephone encounter Note * Telephone Encounter - Julisa Jimenez LPN - 09/17/2024 7:48 AM EDT Fara, Please reach out and schedule an appointment. Thanks. Julisa Jimenez LPN [facility]05-23-2025 Radiology Diagnostic study [facility]05-16-2025 Consult note Author Valerio Balderas [facility] Note Date/Time August 22, 2024 12:[address] [facility] Medical Records Department [address] [place] [address] Pre-Anesthesia Evaluation 08/22/24 1215 MR#: [id number] Acct: [id number] Name: CRYS FRANKS Rep #:[id number] : 1975 48 From: Valerio Balderas MD PCP: Dr. Katherine Munoz MD Status:R EG SDC Y Race: C Location: [place] [address] ASA Classification* ASA Classification ASA Classification: 3 Assessment & Plan Anesthesia* Anesthesia Assessment Anesthesia Assessment: Discussed sedation and/or anesthesia options, risks, benefits, and alternatives with patient/parents/legal guardian/POA. Questions invited. The patient/parents/legal guardian/POA seems to understand and agrees to proceedwith anesthesia plan. Reviewed the physical assessment, medical history, allergy history and patient home medications list prior to surgery/procedure/anesthetic and documented any changes. Performed airway and anesthesia risk assessments. Anesthesia Type Anesthesia Type: MAC Anesthesia Focused Assessment* Airway Assessment Mouth opens: >3 cm Mallampati Score: II Focused Labs Anesthesia Preop lab: CBC WBC 4.1 K/mm3 (4.4-11.0) L 04/28/24 11:24 04/28/24 RBC 3.40 M/mm3 (4.2-5.4) L 04/28/24 11:24 04/28/24 Hgb 12.0 g/dL (12.0-15.0) 04/28/24 11:24 04/28/24 Hct 36.6 % (37-47) L 04/28/24 11:24 04/28/24 Plt Count 178 K/mm3 (150-450) 04/28/24 11:24 04/28/24 CHEMISTRY Potassium 3.7 mmol/L (3.5-5.1) 04/28/24 11:24 04/28/24 Sodium 142 mmol/L (136-145) 04/28/24 11:24 04/28/24 Magnesium 2.1 mg/dL (1.6-2.6) 02/06/24 06:14 02/06/24 BUN 11 mg/dL (7-18) 04/28/24 11:24 04/28/24 Creatinine 0.77 mg/dL (0.55-1.02) 04/28/24 11:24 04/28/24 Glucose 96 mg/dL (74-106) 04/28/24 11:24 04/28/24 TSH 1.050 uIU/mL (0.358-3.740) 04/28/24 11:23 04/10 COAG PT 12.7 SECONDS (11.7-14.9) 07/13/21 17:40 HCG, Quant 6 mIU/mL (1-3) H 02/02/22 17:44 02/02/22 Urine Test Negative Negative 12/07/22 15:45 12/07/22 Pre-Assessment Diagnosis/Proposed Procedure Planned Operative Procedure(s): EGD Anesthesia History Anesthesia History - platform man: Anesthesia History - platform man Hx Hospitalization No 08/21/24 10:37 Any Problems With Anesthesia Yes: ITCHING/N,V 08/21/24 10:37 Cholinesterase deficiency No 08/21/24 10:37 You/Your Family Experience No 08/21/24 10:37 fever (hyperthermia) with Relationship Recent Exposure to Contagious No 02/21/24 14:08 Disease Does patient have nerve Yes: TURN OFF FOR OR 08/21/24 10:37 stimulator Patient instructed to have device shut off --Does patient have Pacemaker or ICD? When Was Last Pacemaker Check QUESTION #4 FULL TEXT: You/Your Family Experience fever (hyperthermia) with Anesthesia Last Oral Intake Last Oral intake: Last Oral Intake NPO since Meds taken in AM with sips of water? 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 - platform man: PONV - platform man Female Yes 08/21/24 10:37 HX of Motion Sickness Yes 08/21/24 10:37 HX of N/V After Surgery Yes 08/21/24 10:37 Non-Smoker Yes 08/21/24 10:37 Duration of Surgery greater No 08/21/24 10:37 than 60 minutes Number of Risk Factors 4 08/21/24 10:37 PONV Score Severe Risk 08/21/24 10:37 Height & Weight Height & Weight: Anesthesia: Height & Weight Height 5 ft 7 in 04/28/24 10:58 Respiratory Assessment Respiratory Assessment - platform man: Respiratory Tract Infection Hx - platform man Hx Respiratory Tract Infection No 08/21/24 10:37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 Mother also had crohn's disease Smoking - ex smoker . HISTORY REVIEWED (electronic chart updated): PAST MEDICAL HISTORY Diagnosis Date Anal fissure Anxiety Arthritis Back pain 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, cannot say what type Colon polyps Depression Diverticulosis Failed back syndrome H/O degenerative disc disease Hypertension Interstitial cystitis Kidney stones Post laminectomy syndrome Schizophrenia, acute (HCC) WITH AUDITORY HALLUCINATIONS Seizure (HCC) last seizure 2012 Stroke (HCC) Dec 2012 Systemic lupus erythematosus (HCC) PAST SURGICAL HISTORY Procedure Laterality Date APPENDECTOMY 2013 COLONOSCOPY 11/08/2016 diverticulitis sigmoid colon COLONOSCOPY - DIAGNOSTIC 06/21/2020 normal exam, no specimens EGD 11/12/2016 chronic gastritis, duodenal erosions, neg biopsies, neg H Pylori EGD 02/02/2000 short segment Garay's esophagus EGD 06/21/2020 bilious gastric fluid, reactive gastropathy on biopsy, neg. H. pylori F SIGMOIDOSCOPY FLEX DIAG 11/12/2017 1 cm rectal mass 0-1 cm from anal verge no biopsy FOOT SURGERY HX Left 12/03/2020 HYSTERECTOMY HX 2010 KNEE SURGERY HX Left LUMBAR SPINE FUSION COMBINED 2016 PART REMV BLADDER,SIMPLE Bladder Stimulator x 4 PART REMV BLADDER,SIMPLE 12/2021 Replaced Stimulator PAST SURGICAL HISTORY OF 2007 and 2006 x 2 PAST SURGICAL HISTORY OF bladder surgery x13 last one in 2016 PAST SURGICAL HISTORY OF Right 2011 shoulder surgery PAST SURGICAL HISTORY OF 2012 bilateral - feet REPAIR EPIGASTRIC HERNIA,REDUC FAMILY HISTORY Problem Relation Age of Onset Diabetes Mother Stroke Mother other (dementia) Mother Arthritis Father other (fibromyalgia) Father Cancer Sister Cancer Brother Diabetes Brother Heart Brother DVT Brother Stroke Maternal Grandmother Social History Tobacco Use Smoking status: Every Day Current packs/day: 0.00 Average packs/day: 0.3 packs/day for 20.0 years (5.0 ttl pk-yrs) Types: Cigarettes Start date: 1994 Last attempt to quit: 2014 Years since quittin.0 Smokeless tobacco: Never Tobacco comments: 4 cigarettes daily updated 01/03/2024 Vaping Use Vaping status: Never Used Substance Use Topics Alcohol use: Never Drug use: Never Current Outpatient Medications Medication Sig folic acid 1 mg tablet TAKE 1 TABLET BY MOUTH DAILY hydrOXYchloroQUINE (PLAQUENIL) 200 mg tablet TAKE 1 TABLET BY MOUTH TWICE A DAY methotrexate 2.5 mg tablet TAKE 10 TABLETS BY MOUTH EVERY WEEK cholecalciferol, Vitamin D3, (VITAMIN D3) 1,250 mcg (50,000 unit) cap capsule TAKE 1 CAPSULE BY MOUTH EVERY WEEK predniSONE (DELTASONE) 10 mg tablet Prednisone 30 mg (3 tabs) for 1 wk, 25 mg (2.5 tabs) for 1 wk, 20 mg (2 tabs) for 1 wk, 15 mg (1.5 tabs) for 1 wk, 10 mg (1tab) for 1 wk, 5 mg (half tab) daily till you finish the bottle busPIRone (BUSPAR) 10 mg tablet Take 10 mg by mouth two times a day. ubrogepant (UBRELVY) 100 mg tablet Take 100 mg by mouth as needed. (Patient not taking: Reported on01/03/2024) ondansetron (ZOFRAN ODT ORAL) Take 4 mg by mouth every 6 hours as needed. DOCUSATE SODIUM ORAL Take 100 mg by mouth two times a day. fremanezumab-vfrm (AJOVY SYRINGE) 225 mg/1.5 mL syringe Inject 225 mg subcutaneously once every month. Do not shake. (Patient not taking: Reported on 01/03/2024) gabapentin (NEURONTIN) 600 mg tablet Take 1 tablet by mouth three times daily for 30 days. Do not start before March 09, 2022. scopolamine (TRANSDERM-SCOP) patch 1.5 mg/72 hr (delivers 1 mg over 3 days) Apply 1 Patch as directed every 72 hours. baclofen (LIORESAL) 10 mg tablet TAKE 1 TABLET BY MOUTH UP TO THREE TIMES A DAY NEEDED FOR PAINFUL MUSCLE SPASM quetiapine fumarate (QUETIAPINE ORAL) Take 700 mg by mouth daily at bedtime. 700mg daily pantoprazole DR (PROTONIX) 40 mg tablet TAKE 1 TABLET BY MOUTH DAILY 30 MINUTES BEFORE A MEAL prazosin (MINIPRESS) 2 mg cap Take 4 mg by mouth daily at bedtime. hydrOXYzine pamoate (VISTARIL) 50 mg capsule Take 50 mg by mouth two times a day as needed. topiramate (TOPAMAX) 200 mg tablet Take 200 mg by mouth daily at bedtime. dicyclomine (BENTYL) 10 mg capsule TAKE 1 CAPSULE BY MOUTH FOUR TIMES A DAY BEFORE MEALS AND AT BEDTIME (Patient taking differently: Take 10 mg by mouth before meals and at bedtime.) levETIRAcetam (KEPPRA) 500 mg tablet TAKE 1 TABLET BY MOUTH TWICE A DAY (Patient taking differently: Take 1,000 mg by mouth two times a day.) simvastatin (ZOCOR) 20 mg tablet Take 1 tablet by mouth daily at bedtime. promethazine (PHENERGAN) 25 mg tablet take 1 tablet by mouth every 6 hours if needed (Patient taking differently: Take 25 mg by mouth every 12 hours as needed.) carBAMazepine (TEGRETOL) 200 mg tablet take 1 tablet by mouth in am and 2 at bedtime. Rx'd by Aliza Nieves . For mood and seizures. (Patient taking differently: Take 200 mg by mouth every morning.take 1 tablet by mouth in am. Rx'd by Aliza Nieves . For mood and seizures.) No current facility-administered medications for this visit. ALLERGIES Allergen Reactions Doxycycline Rash, Anaphylaxis, Vomiting Red spots inside mouth, tongue swelling. Rash distributed over entire body. Denies SOB. [place] Mental Status Change Shellfish Derived Other: See Comments, Anaphylaxis THROAT SWELLING Seafood--THROAT SWELLS Venom-Honey Bee Unknown Venom-Wasp Unknown Carafate [Sucralfat* Hives Hives and Vomiting Latex Rash, Hives Adhesive Tape (Mis* Rash Aleve [Naproxen Sod* Other: See Comments Bactrim [Sulfametho* Other: See Comments severe headaches and nosebleeds Cipro [Ciprofloxaci* Rash Erythromycin Rash Flagyl [Metronidazo* Other: See Comments THROAT SWELLING Iodine Other: See Comments THROAT SWELL Naproxyn [Naproxen] Other: See Comments HEART STOPPED Novacaine [Procaine] Other: See Comments Does not work Ondansetron Other: See Comments headache Penicillins Other: See Comments THROAT SWELLING Pregabalin Swelling Facial swelling, very irritable Wellbutrin [Bupropi* Other: See Comments Zombie like state REVIEW OF SYSTEMS: All other ROS: negative As noted in HPI PHYSICAL EXAMINATION: VIDEO EXAM: (if completed, performed via video enabled technology) GENERAL: alert and appropriate, in no distress, well-hydrated, well nourished, and happy, smiling, interactive Radiology: 07/31 Cr 0.77 LFT normal Ca 8.0 CRP 4.89 CBC with white count 4.1 Hgb 10.4, MCV 103.4 ESR < 1 UA neg for blood or protein UPC 0.165 06/02 Cr 0.93 Ca 8.1 LFT normal CBC with hgb 11.4 MCV 97.4 UA normal 05/02 Uric acid 2.9 Cr 0.7 Vit D 23 CK 52 (CK-BB,MM,MB)- normal Immunofixation- faint indistinct bands are highlighted by one or more immunofixation reagents. - could be inflammatory with immune complexes or oligoclonal immunoglobulin. However a clonal B cell oe plasma cell disorder cannot be excluded. UA with trace protein UPC 0.12 [place] 47.7 H, Lambda 29 H, K/L 1.January Creatinine 0.89 Liver enzymes normal Calcium 8.3 low CK 95 CRP 0.4 high CBC with white count 4.3 low Double-stranded DNA negative, C3 and C4 normal Crithidia negative Hepatitis panel negative TB QuantiFERON negative UA with 100 protein, 0-5 RBC, trace ketones, trace bacteria Serology: positive: PAT, p-ANCA, dsDNA, CCP Radiology: IMPRESSION: Normal right shoulder radiographs RESULT: 4 views of the cervical spine demonstrate multilevel degenerative change with vertebral body osteophytosis and disc space narrowing, greatest at C3-4 and anteriorly at C6-7. 1 to 2 mm anterolisthesis of C4 on C5 and C5 on C6 with intact spinolaminal line suggesting degenerative etiology. There are no vertebral body compression deformities and alignment is otherwise well maintained. Bilateral obliques demonstrate the foramina maintained. The atlantoaxial interval and craniocervical junction are intact. There is no prevertebral soft tissue abnormality. IMPRESSION: 1. Relatively minimal degenerative changes as detailed above. No significant central canal stenosis. Mild foraminal stenosis as detailed. 2. Prior surgical changes as detailed above. 3. No evidence of fracture 4. No specific abnormality is seen within the visualized portions around the spinal stimulating generator pack. This area was incompletely included. Further assessment as clinical symptoms warrant. RESULT: Standing frontal, oblique and lateral views of the bilateral feet no acute osseous, articular or soft tissue process. Mild hallux valgus is present with remote bunionectomy changes. There has been prior arthrodesis of the first metatarsal tarsal articulations bilaterally. Visualized surgical hardware is intact and there is no radiographic evidence for loosening or superimposed fracture. Joint spaces are preserved and there are no erosive or bony destructive Changes. RESULT: 2 views of the SI joints show no acute osseous, articular or soft tissue abnormality. SI joints are patent without ankylosis or marginal erosion. The visualized bony pelvic ring is intact and the hips are bilaterally symmetric without significant joint space narrowing. Neurostimulator terminates in the left aspect of the mid to distal sacrum. Lead appears intact. Neurostimulator also seen overlying the right iliac crest. Visualized leads are intact. CT abd - 2.2 cm mass like lesion at left mid mesentery (derik mesentery) ASSESSMENT: (M25.50) Pain in joint, multiple sites (primary encounter diagnosis) (E55.9) Vitamin D deficiency @ALLSL@ PLAN: 48 year old patient here today for follow up of SLE, RA overlap. Increase in pain, swelling in her hands, puffy digits. Elevated CRP, low WBC. Proteinuria, concern for active lupus. UPC 0.12- no lupus nephritis. Pred given which helped. Proteinuria resolved. Did get established with nephro Dr. Adames. Currently on Plaquenil 400 mg daily, methotrexate 10 tablets weekly and folic acid daily started06/30 and has been on treatment for the past 5 weeks with some improvement so far. Patient with joint pain and family h/o autoimmune disease. She reports joint pain, swelling, raynaud's phenomenon, livedo. She was noted to have positive PAT, pANCA, dsDNA, CCP. Likely lupus causing inflammatory arthritis, overlap RA? Prednisone has helped in the past. Raynaud's. Discussed smoking cessation, keeping core body temp warm, avoiding cold, managing stress. Advised that neck and back pain is DJD which is not going to respond to DMARDs. She sees pain management. Getting procedures. Has had injections, planning for left RFNA soon. Left leg is weak, no mobility. WC bound. Advised to d/c any NSAIDs with proteinuria and stop tramadol with h/o sz. Sees neurology for seizures. On treatment. Also has history of mental health with bipolar, PTSD, anxiety, depression-on a few medications. Uterine CA- hysterectomy. Lately has been having dizzy spells with syncopal episodes. BP has been running low, today 91/49. Heart and lungs were clear. Advised to increase water intake and follow-up with neurology. She is scheduled for tilt table testing. She has several oral lesions, had seen her dentist and had concerns for oral cancer and has been referred to ENT for biopsy, scheduled with [facility] 08/27/2023 Hypocalcemia, unsure if related to vitamin D, advised to increase calcium in diet. If persists, mayneed calcium supplementation New onset macrocytosis, from methotrexate? Also slightly worsened anemia. Check labs including folate, vitamin B-12 and iron studies Plan: Recent labs reviewed, some improvement so far with methotrexate 07/31 - Increased methotrexate 6 to 8 tablets weekly 11/30 MTX 10 tabs weekly Continue folic acid daily and Plaquenil 400 mg daily Continue vitamin D 50,000 units weekly Advised to schedule ophth May need to see derm. 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 Advised labs, steroid course. She is seeing GI. Recommend repeating CT scan. Consider biopsy if mass is persistent. There are no Patient Instructions on file for this visit. I spent a total of 20 minutes on the date of the service which included preparing to see the patient, [id number] patient care, completing clinical documentation, obtaining and/or reviewing separately obtained history, performing a medically appropriate examination, counseling and educating the pat ient/family/caregiver, ordering medications, tests, or procedures, independently interpreting results (not separately reported), and communicating results to the patient/family/caregiver Trish Adames MD [facility] on 04/22/24 C3 COMPLEMENT C4 COMPLEMENT DNA ANTIBODY DS BLD COMPREHENSIVE METABOLIC PANEL COMPLETE BLOOD COUNT AND DIFFERENTIAL C-REACTIVE PROTEIN SEDIMENTATION RATE, WESTERGREN VITAMIN D 25 HYDROXY URINALYSIS (WITH MICROSCOPIC) WITH CULTURE IF INDICATED CREATININE RANDOM URINE PROTEIN RANDOM URINE No orders of the defined types were placed in this encounter. [facility] Telephone encounter Note * Telephone Encounter - Julisa Jimenez LPN - 04/07/2024 4:16 PM EST Pharmacy requesting the following refill. Requested Prescriptions Pending Prescriptions Disp Refills folic acid 1 mg tablet [Pharmacy Med Name: Folic Acid 1MG TABS] 28 tablet 2 Sig: TAKE 1 TABLET BY MOUTH DAILY hydrOXYchloroQUINE (PLAQUENIL) 200 mg tablet [Pharmacy Med Name: Hydroxychloroquine Sulfate 200MG TABS] 56 tablet 2 Sig: TAKE 1 TABLET BY MOUTH TWICE A DAY methotrexate 2.5 mg tablet [Pharmacy Med Name: Methotrexate 2.5MG TABS] 40 tablet 2 Sig: TAKE 10 TABLETS BY MOUTH EVERY WEEK Patient last appointment: 01/03/2024 Next Appointment: 04/22/2024 Patient Phone numbers: [phone] (home) Request is for script(s) to be escript to pharmacy. [facility] [address] [place] [address] - [address] [phone] Julisa Jimenez LPN [facility]12-30-2024 Miscellaneous Notes* Telephone Encounter - Julisa Jimenez LPN - 04/07/2024 4:16 PM EST Pharmacy requesting the following refill. Requested Prescriptions Pending Prescriptions Disp Refills folic acid 1 mg tablet [Pharmacy Med Name: Folic Acid 1MG TABS] 28 tablet 2 Sig: TAKE 1 TABLET BY MOUTH DAILY hydrOXYchloroQUINE (PLAQUENIL) 200 mg tablet [Pharmacy Med Name: Hydroxychloroquine Sulfate 200MG TABS] 56 tablet 2 Sig: TAKE 1 TABLET BY MOUTH TWICE A DAY methotrexate 2.5 mg tablet [Pharmacy Med Name: Methotrexate 2.5MG TABS] 40 tablet 2 Sig: TAKE 10 TABLETS BY MOUTH EVERY WEEK Patient last appointment: 01/03/2024 Next Appointment: 04/22/2024 Patient Phone numbers: [phone] (home) Request is for script(s) to be escript to pharmacy. [facility] [address] [place] [address] - [address] [phone] Julisa Jimenez LPN documented in this encounterSelect [facility]-27-[facility] Telephone encounter Note * Telephone Encounter - Julisa Jimenez LPN - 03/05/2024 2:13 PM EST Pharmacy requesting the following refill. Requested Prescriptions Pending Prescriptions Disp Refills cholecalciferol, Vitamin D3, (VITAMIN D3) 1,250 mcg (50,000 unit) cap capsule [Pharmacy Med Name: Vitamin D3 1.25 MG(76074 UT) CAPS] 4 capsule 1 Sig: TAKE 1 CAPSULE BY MOUTH EVERY WEEK Patient last appointment: 01/03/2024 Next Appointment: 04/22/2024 Patient Phone numbers: [phone] (home) Request is for script(s) to be escript to pharmacy. [facility] [address] [place] [address] - [address] [phone] Julisa Jimenez LPN [facility]11-27-2024 Miscellaneous Notes* Telephone Encounter - Julisa Jimenez LPN - 03/05/2024 2:13 PM EST Pharmacy requesting the following refill. Requested Prescriptions Pending Prescriptions Disp Refills cholecalciferol, Vitamin D3, (VITAMIN D3) 1,250 mcg (50,000 unit) cap capsule [Pharmacy Med Name: Vitamin D3 1.25 MG(21651 UT) CAPS] 4 capsule 1 Sig: TAKE 1 CAPSULE BY MOUTH EVERY WEEK Patient last appointment: 01/03/2024 Next Appointment: 04/22/2024 Patient Phone numbers: [phone] (home) Request is for script(s) to be escript to pharmacy. [facility] - [address] [place] [address] - [address] [phone] Julisa Jimenez LPN documented in this encounterSelect [facility]10-31-[facility]24 NoteHNO ID: [id number] Author: NELSON BRAGG APRN.CNP Service: ? Author Type: Nurse Practitioner Type: Progress Notes Filed: 02/07/2024 13:19 Note Text: Patient's chief complaint: abdominal pain, n/v, headaches. Per patient was in the ER yesterday and also 4 weeks ago for the same. Has tried zofran and phenergan and ubrelvy without relief. Patient was contacted and advised on limitations of [facility]. Advised patient to seek in-person evaluation with her primary care or specialist for further management. She verbalizes understanding. This appointment was cancelled and fee waived. Nelson Bragg APRN.[facility] History of Present illness Narrative* Nelson Bragg APRN.CNP - 02/07/2024 1:13 PM EDT Patient's chief complaint: abdominal pain, n/v, headaches. Per patient was in the ER yesterday and also 4 weeks ago for the same. Has tried zofran and phenergan and ubrelvy without relief. Patient was contacted and advised on limitations of [facility]. Advised patient to seek in-person evaluation with her primary care or specialist for further management. She verbalizes understanding. This appointment was cancelled and fee waived. Nelson Bragg APRN.JANETH documented in this encounterSelect [facility]-24-2024 Telephone encounter Note * Telephone Encounter - Julisa Jimenez LPN - 01/31/2024 4:14 PM EDT Patient left vm with PCP and GI. Julisa Jimenez LPN [facility]10-24-[facility]24 Miscellaneous Notes* Telephone Encounter - Julisa Jimenez LPN - 01/31/2024 4:14 PM EDT Patient left vm with PCP and GI. Julisa Jimenez LPN * Telephone Encounter - Trish Adames MD - 01/31/2024 3:59 PM EDT Did she follow up with GI? * Telephone Encounter - Julisa Jimenez LPN - 01/31/2024 2:18 PM EDT Patient states she reached out to her PCP's office on their website. Patient encouraged to call andleave a message with PCP and GI. Patient has been out of zofran and phenergan. Temperature: 99.6 F today after taking APAP Diarrhea alternates with constipation and vomiting continues. Patient reports she was in [place] ER two weeks ago and a hernia was found. I asked her to call them and have records faxed to the office. Julisa Jimenez LPN * Telephone Encounter - Julisa Jimenez LPN - 01/31/2024 11:38 AM EDT Patient left vm stating she was not going to be able to keep her appointment on 01/31/2024 due to illness. Onset 01/30/2024 Fever 101.2, vomiting, diarrhea Call placed to patient, no answer. Left detailed message asking patient to call her PCP for an appt. Juilsa Jimenez LPN documented in this encounterSelect [facility]-24-2024 Telephone encounter Note * Telephone Encounter - Trish Adames MD - 01/31/2024 3:59 PM EDT Did she follow up with GI? [facility] Telephone encounter Note* Telephone Encounter - Julisa Jimenez LPN - 01/31/2024 2:18 PM EDT Patient states she reached out to her PCP's office on their website. Patient encouraged to call andleave a message with PCP and GI. Patient has been out of zofran and phenergan. Temperature: 99.6 F today after taking APAP Diarrhea alternates with constipation and vomiting continues. Patient reports she was in [place] ER two weeks ago and a hernia was found. I asked her to call them and have records faxed to the office. Julisa Jimenez LPN [facility]10-24-[facility]24 Telephone encounter Note* Telephone Encounter - Batool Dodson - 01/31/2024 12:01 PM EDT This patient had left a message on Julisa's phone yesterday that she was sick and would not be in today. THIS IS NOT A NO SHOW Batool Dodson [facility]10-24-2024 Miscellaneous Notes* Telephone Encounter - Batool Dodson - 01/31/2024 12:01 PM EDT This patient had left a message on Julisa's phone yesterday that she was sick and would not be in today. THIS IS NOT A NO SHOW Batool Dodson * Telephone Encounter - Batool Dodson - 01/31/2024 11:04 AM EDT No Show Documentation Crys Franks no showed for an appointment on [id number] with Trish Adames MD at [place]. She was scheduled for 1000. I called and spoke with the patient regarding her missed appointment. Crys stated the reason that she missed her appointment was because forgot about appointment . Resources discussed/offered to patient: LM No show determined to be fault of patient: Yes This is the patients first no show in the last 12 months. Patient was rescheduled for no. Letter mailed : Yes Is this the Third or Fourth No Show? No Batool Dodson January 31, 2024 11:04 AM documented in this encounterSelect [facility]-24-2024 Telephone encounter Note * Telephone Encounter - Julisa Jimenez LPN - 01/31/2024 11:38 AM EDT Patient left vm stating she was not going to be able to keep her appointment on 01/31/2024 due to illness. Onset 01/30/2024 Fever 101.2, vomiting, diarrhea Call placed to patient, no answer. Left detailed message asking patient to call her PCP for an appt. Julisa Jimeenz LPN [facility]-24-[facility]24 Telephone encounter Note* Telephone Encounter - Batool Dodson - 01/31/2024 11:04 AM EDT No Show Documentation Crys Franks no showed for an appointment on [id number] with Trish Adames MD at [place]. She was scheduled for 1000. I called and spoke with the patient regarding her missed appointment. Crys stated the reason that she missed her appointment was because forgot about appointment . Resources discussed/offered to patient: LM No show determined to be fault of patient: Yes This is the patients first no show in the last 12 months. Patient was rescheduled for no. Letter mailed : Yes Is this the Third or Fourth No Show? No Batool Dodson January 31, 2024 11:04 AM [facility]10-04-2024 Note. MICRO - Microbiology PROCEDURE: Urine Culture [*1] SOURCE: Urine, Clean Catch BODY SITE: COLLECTED DATE/TIME: 01/09/2024 18:15 EDT RECEIVED DATE/TIME: 01/10/2024 14:19 EDT START DATE/TIME: 01/10/2024 14:19 EDT FREE TEXT SOURCE: FINAL REPORTS Final Report [] Verified Date/Time/Personnel: 01/11/2024 13:44 EDT <10,000 cfu/ml. No Significant growth. Sensitivity not indicated. Performing Locations *1: This test was performed at: [address], [address] , [facility]10-03-2024 Telephone encounter Note* Telephone Encounter - Julisa Jimenez LPN - 01/10/2024 12:36 PM EDT Pharmacy requesting the following refill. Requested Prescriptions Pending Prescriptions Disp Refills cholecalciferol, Vitamin D3, (VITAMIN D3) 1,250 mcg (50,000 unit) cap capsule [Pharmacy Med Name: Vitamin D3 1.25 MG(26083 UT) CAPS] 4 capsule 1 Sig: take 1 capsule by mouth every week Patient last appointment: 01/03/2024 Next Appointment: 01/31/2024 Patient Phone numbers: [phone] (home) Request is for script(s) to be escript to pharmacy. [facility] - [address] [place] [address] - [address] - [phone] Julisa Jimenez LPN [facility]10-03-2024 Miscellaneous Notes* Telephone Encounter - Julisa Jimenez LPN - 01/10/2024 12:36 PM EDT Pharmacy requesting the following refill. Requested Prescriptions Pending Prescriptions Disp Refills cholecalciferol, Vitamin D3, (VITAMIN D3) 1,250 mcg (50,000 unit) cap capsule [Pharmacy Med Name: Vitamin D3 1.25 MG(63620 UT) CAPS] 4 capsule 1 Sig: take 1 capsule by mouth every week Patient last appointment: 01/03/2024 Next Appointment: 01/31/2024 Patient Phone numbers: [phone] (home) Request is for script(s) to be escript to pharmacy. [facility] - [address] [place] [address] - [address] [phone] Julisa Jimenez LPN [facility] Hospital Discharge instructions Patient Education 01/09/2024 18:15:54 AA Shraddha ESTEBAN (CUSTOM) type:CT Abd/Pelvis w/ IV Contrast Only Result date:January 09, 2024 17:05 EDT Result status:In Progress Result title:CT ABD/PELVIS W/ IV CONTRAST ONLY Performed by:SOFIA ADAMES DO on January 09, 2024 17:03 EDT Cosigned by:SOFIA ADAMES DO Encounter info:[id number], [facility], Emergency, 01/09/2024 - Contributor system:M.Setek * Preliminary Report * [id number] ORIGINAL EXAMINATION: CT OF THE ABDOMEN AND PELVIS WITH JEMZUAHU15/2/2024 5:06 pm TECHNIQUE: CT of the abdomen and pelvis was performed with the administration of intravenous contrast. Multiplanar reformatted images are provided for review. Automated exposure control, iterative reconstruction, and/or weight based adjustment of the mA/kV was utilized to reduce the radiation dose to as low as reasonably achievable. COMPARISON: CT abdomen pelvis 01/02/2023 HISTORY: ORDERING SYSTEM PROVIDED HISTORY: Reason for Exam: Vomiting, abdominal pain FINDINGS: No acute osseous abnormalities. Degenerative changes of the spine. A spinal stimulator is visualized in the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 [employer]. 10/04/2023 15:00:18 General Anesthesia, Adult, Care After General Anesthesia, Adult, Care After This sheet gives you information about how to care for yourself after your procedure. Your health care provider may also give you more specific instructions. If you have problems or questions, contact your health care provider. What can I expect after the procedure? After the procedure, the following side effects are common: Pain or discomfort at the IV site. Nausea. Vomiting. Sore throat. Trouble concentrating. Feeling cold or chills. Weak or tired. Sleepiness and fatigue. Soreness and body aches. These side effects can affect parts of the body that were not involved in surgery. Follow these instructions at home: For at least 24 hours after the procedure: Have a responsible adult stay with you. It is important to have someone help care for you until youare awake and alert. Rest as needed. Do not: ?Participate in activities in which you could fall or become injured. ?Drive. ?Use heavy machinery. ?Drink alcohol. ?Take sleeping pills or medicines that cause drowsiness. ?Make important decisions or sign legal documents. ?Take care of children on your own. Eating and drinking Follow any instructions from your health care provider about eating or drinking restrictions. When you feel hungry, start by eating small amounts of foods that are soft and easy to digest (bland), such as toast. Gradually return to your regular diet. Drink enough fluid to keep your urine pale yellow. If you vomit, rehydrate by drinking water, juice, or clear broth. General instructions If you have sleep apnea, surgery and certain medicines can increase your risk for breathing problems. Follow instructions from your health care provider about wearing your sleep device: ?Anytime you are sleeping, including during daytime naps. ?While taking prescription pain medicines, sleeping medicines, or medicines that make you drowsy. Return to your normal activities as told by your health care provider. Ask your health care provider what activities are safe for you. Take tzfm-sol-xlmojet and prescription medicines only as told by your health care provider. If you smoke, do not smoke without supervision. Keep all follow-up visits as told by your health care provider. This is important. Contact a health care provider if: You have nausea or vomiting that does not get better with medicine. You cannot eat or drink without vomiting. You have pain that does not get better with medicine. You are unable to pass urine. You develop a skin rash. You have a fever. You have redness around your IV site that gets worse. Get help right away if: You have difficulty breathing. You have chest pain. You have blood in your urine or stool, or you vomit blood. Summary After the procedure, it is common to have a sore throat or nausea. It is also common to feel tired. Have a responsible adult stay with you for the first 24 hours after general anesthesia. It is important to have someone help care for you until you are awake and alert. When you feel hungry, start by eating small amounts of foods that are soft and easy to digest (bland), such as toast. Gradually return to your regular diet. Drink enough fluid to keep your urine pale yellow. Return to your normal activities as told by your health care provider. Ask your health care provider what activities are safe for you. This information is not intended to replace advice given to you by your health care provider. Make sure you discuss any questions you have with your health care provider. Document Released: 07/02/2001 Document Revised: 03/29/2018 Document Reviewed: 11/09/2017 [employer] Patient Education 2020 [employer]. 10/04/2023 15:00:04 Tongue Biopsy, Care After Tongue Biopsy, Care After Refer to this sheet in the next few weeks. These instructions provide you with information about caring for yourself after your procedure. Your health care provider may also give you more specific instructions. Your treatment has been planned according to current medical practices, but problems sometimes occur. Call your health care provider if you have any problems or questions after your procedure. What can I expect after the procedure? After the procedure, it is common to have: Temporary tongue numbness. Pain and soreness. Bloody spit. Swelling. Follow these instructions at home: Mouth Care Follow instructions from your health care provider about how to take care of your biopsy site. Rinse your mouth with a cool salt and soda water mixture 3 4 times per day, or as many times as needed. To make a salt and soda water mixture, completely dissolve -1 tsp of salt and 1 tsp of baking soda in 1 cup of warm water. If this causes discomfort, rinse your mouth with water only and keep your mouth clean. Check your biopsy site every day for signs of infection. Check for: ?More redness, swelling, or pain. ?More fluid or blood. ?Pus or a bad smell. Driving Do not drive or use heavy machinery while taking prescription pain medicine. Do not drive for 24 hours if you received a medicine to help you relax (sedative) during your procedure. Activity Return to your normal activities as told by your health care provider. Ask your health care provider what activities are safe for you. Raise (elevate) your head above the level of your heart while you are sitting or lying down. General instructions Do not chew food until your mouth stops being numb. You may need to avoid hot and spicy foods or foods that are difficult to chew and swallow. Avoid these foods until your health care provider says that you can return to your normal diet. Follow instructions from your health care provider about other eating or drinking restrictions. Do not use any tobacco products, such as cigarettes, chewing tobacco, and e- cigarettes. If you needhelp quitting, ask your health care provider. Take xojh-dsb-rwvytos and prescription medicines only as told by your health care provider. Keep all follow-up visits as told by your health care provider. This is important. Contact a health care provider if: You have a fever or chills. You have more redness, swelling, or pain around your biopsy site. You have more fluid or blood coming from your biopsy site. You have pus or a bad smell coming from your biopsy site. You have pain that does not get better with medicine. You have tongue pain or swelling that causes you to have trouble eating or drinking. Get help right away if: You have new bleeding that does not stop after you apply pressure with a gauze pad. You are unable to swallow. You have difficulty breathing. This information is not intended to replace advice given to you by your health care provider. Make sure you discuss any questions you have with your health care provider. Document Released: 04/09/2016 Document Revised: 03/08/2018 Document Reviewed: 04/09/2016 [employer] Patient Education 2020 [employer]. Follow Up Care 08/23/2023 11:17:04 With:АЛЕКСАНДР CUNNINGHAM DO Address: [address] [place] [address] [address] [place] [address] [phone] When:10/15/2023 13:30:00 Comments:[facility] Discharge Instructions Thank you for allowing [facility] to assist you with your healthcare needs. The following is importantdischarge information regarding your hospital visit. Your Care Team KATHERINE MUNOZ MD, DR. What to do next Follow Up Appointments Follow Up with АЛЕКСАНДР CUNNINGHAM DO When:10/15/2023 01:30 PM EDT Where:[facility] [address] [place] [address] [phone] Additional Information: Follow-up as scheduled Allergies Contrast dye Flagyl Latex Blisters, Rash Naprosyn Seafood amoxicillin erythromycin iodine Rash penicillin Medications Please ask your primary doctor or pharmacist before taking any other medication not listed, including over the counter drugs, herbal medications, vitamins and or supplements as they may interact withyour home medications. What How Much When Instructions Last Dose Unchanged baclofen (baclofen 10 mg oral tablet) 1 tab(s) by mouth Three (3) times a day Duration: 5 Days Unchanged busPIRone (busPIRone 10 mg oral tablet) 1 tab(s) by mouth Two (2) times a day Unchanged carBAMazepine (carBAMazepine 200 mg oral tablet) 2 tab(s) by mouth Two (2) times a day Unchanged cholecalciferol (Vitamin D3 1250 mcg (50,000 intl units) oral capsule) 1 cap by mouth Every week Unchanged cyclobenzaprine (cyclobenzaprine 10 mg oral tablet) 1 tab(s) by mouth Three (3) times a day as needed for Muscle spasm Unchanged DULoxetine (DULoxetine 30 mg oral delayed release capsule) 2 cap by mouth Once a day Unchanged EPINEPHrine (EPINEPHrine 0.3 mg injectable kit) See instructions 0.3 mg Intramuscular Unchanged folic acid (folic acid 1 mg oral tablet) 1 tab(s) by mouth Once a day Unchanged fremanezumab (Ajovy Autoinjector 225 mg/ 1.5 mL subcutaneous solution) Unchanged fremanezumab (A[employer]ovy Autoinjector 225 mg/ 1.5 mL subcutaneous solution) Unchanged gabapentin (gabapentin 600 mg oral tablet) 1 tab(s) by mouth Three (3) times a day Unchanged hydroxychloroquine (hydroxychloroquine 200 mg oral tablet) 2 tab(s) by mouth Once a day Unchanged hydrOXYzine (hydrOXYzine pamoate 50 mg oral capsule) 1 cap by mouth Two (2) times a day Unchanged levETIRAcetam (levETIRAcetam 500 mg oral tablet) 1 tab(s) by mouth Two (2) times a day Unchanged methotrexate (methotrexate 2.5 mg oral tablet) 1 tab(s) by mouth Every week Unchanged montelukast (montelukast 10 mg oral tablet) 1 tab(s) by mouth Once a day Unchanged nortriptyline (nortriptyline 10 mg oral capsule) 1 cap by mouth Three (3) times a day Unchanged pantoprazole (pantoprazole 40 mg oral enteric coated tablet) 1 tab(s) by mouth Once a day Unchanged prazosin (prazosin 2 mg oral capsule) 1 cap by mouth Daily at bedtime Unchanged promethazine (promethazine 25 mg oral tablet) 1 tab(s) by mouth Three (3) times a day Unchanged QUEtiapine (QUEtiapine 300 mg oral tablet) 1 tab(s) by mouth Daily at bedtime Unchanged scopolamine (scopolamine 1 mg/ 72 hr transdermal film, extended release) 1 patch(es) Transdermal Unchanged simvastatin (simvastatin 20 mg oral tablet) 1 tab(s) by mouth Daily at bedtime Unchanged topiramate (topiramate 200 mg oral tablet) 1 tab(s) by mouth Once a day Unchanged ubrogepant (Ubrelvy 100 mg oral tablet) 1 tab(s) by mouth Once as needed for as needed for migraine headache may repeat dose in 2 hours if needed Please take this list to your next doctor s visit. Bring all medications you take, including over the counter medications, herbals and other supplements with you to your doctor s visit. Patients and families are reminded to discard old lists and to update any records with all medication providers or retail pharmacies. Education Materials Nausea, Adult Nausea is feeling sick to your stomach or feeling that you are about to throw up (vomit). Feeling sick to your stomach is usually not serious, but it may be an early sign of a more serious medical problem. As you feel sicker to your stomach, you may throw up. If you throw up, or if you are not able to drink enough fluids, there is a risk that you may lose too much water in your body (get dehydrated). If you lose too much water in your body, you may: Feel tired. Feel thirsty. Have a dry mouth. Have cracked lips. Go pee (urinate) less often. Older adults and people who have other diseases or a weak body defense system (immune system) have a higher risk of losing too much water in the body. The main goals of treating this condition are: To relieve your nausea. To ensure your nausea occurs less often. To prevent throwing up and losing too much fluid. Follow these instructions at home: Watch your symptoms for any changes. Tell your doctor about them. Follow these instructions as toldby your doctor. Eating and drinking Take an ORS (oral rehydration solution). This is a drink that is sold at pharmacies and stores. Drink clear fluids in small amounts as you are able. These include: ? Water. ? Ice chips. ? Fruit juice that has water added (diluted fruit juice). ? Low-calorie sports drinks. Eat bland, vadc-ac-nltnyz foods in small amounts as you are able, such as: ? Bananas. ? Applesauce. ? Rice. ? Low-fat (lean) meats. ? [place]. ? Crackers. Avoid drinking fluids that have a lot of sugar or caffeine in them. This includes energy drinks, sports drinks, and soda. Avoid alcohol. Avoid spicy or fatty foods. General instructions Take ocye-vsv-uakzqpp and prescription medicines only as told by your doctor. Rest at home while you get better. Drink enough fluid to keep your pee (urine) pale yellow. Take slow and deep breaths when you feel sick to your stomach. Avoid food or things that have strong smells. Wash your hands often with soap and water. If you cannot use soap and water, use hand principal data architect. Make sure that all people in your home wash their hands well and often. Keep all follow-up visits as told by your doctor. This is important. Contact a doctor if: You feel sicker to your stomach. You feel sick to your stomach for more than 2 days. You throw up. You are not able to drink fluids without throwing up. You have new symptoms. You have a fever. You have a headache. You have muscle cramps. You have a rash. You have pain while peeing. You feel light-headed or dizzy. Get help right away if: You have pain in your chest, neck, arm, or jaw. You feel very weak or you pass out (faint). You have throw up that is bright red or looks like coffee grounds. You have bloody or black poop (stools) or poop that looks like tar. You have a very bad headache, a stiff neck, or both. You have very bad pain, cramping, or bloating in your belly (abdomen). You have trouble breathing or you are breathing very quickly. Your heart is beating very quickly. Your skin feels cold and clammy. You feel confused. You have signs of losing too much water in your body, such as: ? Dark pee, very little pee, or no pee. ? Cracked lips. ? Dry mouth. ? Sunken eyes. ? Sleepiness. ? Weakness. These symptoms may be an emergency. Do not wait to see if the symptoms will go away. Get medical help right away. Call your local emergency services (911 in the [place] Do not drive yourself to the hospital. Summary Nausea is feeling sick to your stomach or feeling that you are about to throw up (vomit). If you throw up, or if you are not able to drink enough fluids, there is a risk that you may lose too much water in your body (get dehydrated). Eat and drink what your doctor tells you. Take ccni-bqy-ndfwrkh and prescription medicines only as told by your doctor. Contact a doctor right away if your symptoms get worse or you have new symptoms. Keep all follow-up visits as told by your doctor. This is important. This information is not intended to replace advice given to you by your health care provider. Make sure you discuss any questions you have with your health care provider. Document Released: 03/14/2012 Document Revised: 2018 Document Reviewed: 2018 [employer] Patient Education 2020 [employer] General Anesthesia, Adult, Care After This sheet gives you information about how to care for yourself after your procedure. Your health care provider may also give you more specific instructions. If you have problems or questions, contact your health care provider. What can I expect after the procedure? After the procedure, the following side effects are common: Pain or discomfort at the IV site. Nausea. Vomiting. Sore throat. Trouble concentrating. Feeling cold or chills. Weak or tired. Sleepiness and fatigue. Soreness and body aches. These side effects can affect parts of the body that were not involved in surgery. Follow these instructions at home: For at least 24 hours after the procedure: Have a responsible adult stay with you. It is important to have someone help care for you until youare awake and alert. Rest as needed. Do not: ? Participate in activities in which you could fall or become injured. ? Drive. ? Use heavy machinery. ? Drink alcohol. ? Take sleeping pills or medicines that cause drowsiness. ? Make important decisions or sign legal documents. ? Take care of children on your own. Eating and drinking Follow any instructions from your health care provider about eating or drinking restrictions. When you feel hungry, start by eating small amounts of foods that are soft and easy to digest (bland), such as toast. Gradually return to your regular diet. Drink enough fluid to keep your urine pale yellow. If you vomit, rehydrate by drinking water, juice, or clear broth. General instructions If you have sleep apnea, surgery and certain medicines can increase your risk for breathing problems. Follow instructions from your health care provider about wearing your sleep device: ? Anytime you are sleeping, including during daytime naps. ? While taking prescription pain medicines, sleeping medicines, or medicines that make you drowsy. Return to your normal activities as told by your health care provider. Ask your health care provider what activities are safe for you. Take zmut-kwi-zjqdzwz and prescription medicines only as told by your health care provider. If you smoke, do not smoke without supervision. Keep all follow-up visits as told by your health care provider. This is important. Contact a health care provider if: You have nausea or vomiting that does not get better with medicine. You cannot eat or drink without vomiting. You have pain that does not get better with medicine. You are unable to pass urine. You develop a skin rash. You have a fever. You have redness around your IV site that gets worse. Get help right away if: You have difficulty breathing. You have chest pain. You have blood in your urine or stool, or you vomit blood. Summary After the procedure, it is common to have a sore throat or nausea. It is also common to feel tired. Have a responsible adult stay with you for the first 24 hours after general anesthesia. It is important to have someone help care for you until you are awake and alert. When you feel hungry, start by eating small amounts of foods that are soft and easy to digest (bland), such as toast. Gradually return to your regular diet. Drink enough fluid to keep your urine pale yellow. Return to your normal activities as told by your health care provider. Ask your health care provider what activities are safe for you. This information is not intended to replace advice given to you by your health care provider. Make sure you discuss any questions you have with your health care provider. Document Released: 07/02/2001 Document Revised: 03/29/2018 Document Reviewed: 11/09/2017 [employer] Patient Education 2020 Unified Office. Tongue Biopsy, Care After Refer to this sheet in the next few weeks. These instructions provide you with information about caring for yourself after your procedure. Your health care provider may also give you more specific instructions. Your treatment has been planned according to current medical practices, but problems sometimes occur. Call your health care provider if you have any problems or questions after your procedure. What can I expect after the procedure? After the procedure, it is common to have: Temporary tongue numbness. Pain and soreness. Bloody spit. Swelling. Follow these instructions at home: Mouth Care Follow instructions from your health care provider about how to take care of your biopsy site. Rinse your mouth with a cool salt and soda water mixture 3 4 times per day, or as many times as needed. To make a salt and soda water mixture, completely dissolve -1 tsp of salt and 1 tsp of baking soda in 1 cup of warm water. If this causes discomfort, rinse your mouth with water only and keep your mouth clean. Check your biopsy site every day for signs of infection. Check for: ? More redness, swelling, or pain. ? More fluid or blood. ? Pus or a bad smell. Driving Do not drive or use heavy machinery while taking prescription pain medicine. Do not drive for 24 hours if you received a medicine to help you relax (sedative) during your procedure. Activity Return to your normal activities as told by your health care provider. Ask your health care provider what activities are safe for you. Raise (elevate) your head above the level of your heart while you are sitting or lying down. General instructions Do not chew food until your mouth stops being numb. You may need to avoid hot and spicy foods or foods that are difficult to chew and swallow. Avoid these foods until your health care provider says that you can return to your normal diet. Follow instructions from your health care provider about other eating or drinking restrictions. Do not use any tobacco products, such as cigarettes, chewing tobacco, and e- cigarettes. If you needhelp quitting, ask your health care provider. Take jqqj-wkt-vzzdcta and prescription medicines only as told by your health care provider. Keep all follow-up visits as told by your health care provider. This is important. Contact a health care provider if: You have a fever or chills. You have more redness, swelling, or pain around your biopsy site. You have more fluid or blood coming from your biopsy site. You have pus or a bad smell coming from your biopsy site. You have pain that does not get better with medicine. You have tongue pain or swelling that causes you to have trouble eating or drinking. Get help right away if: You have new bleeding that does not stop after you apply pressure with a gauze pad. You are unable to swallow. You have difficulty breathing. This information is not intended to replace advice given to you by your health care provider. Make sure you discuss any questions you have with your health care provider. Document Released: 04/09/2016 Document Revised: 03/08/2018 Document Reviewed: 04/09/2016 [employer] Patient Education 2020 Unified Office. Additional Information VACCINATE! IT SAVES LIVES! Members of the community who have not yet received the COVID-19 vaccine and would like to receive it can visit one of [facility] vaccine clinics. There are many vaccine clinic locations within the [facility]. For locations and available times, please visit [email or web address] It is important to note that some COVID mobile vaccine clinics are held outdoors and may be canceled in rainy or stormy conditions. To learn more about pediatric vaccinations (ages 5-11), we invite you to visit the [facility] webpage. [email or web address].[email or web address].org/pages/[email or web address]-Ncgmg-Szoltnrvofa-Ekubnnwttq-[email or web address]-Oym stions.htmlTo learn more about the COVID-19 vaccine, we invite you to visit the CDC website for a list of frequently asked questions.https://www.cdc.gov/coronavirus/2019-ncov/vaccines/faq.html [facility] Patient Portal Access Instructions: Stay connected with your healthcare team and access your personal medical information anytime with the [facility] Patient Portal. Please follow the directions below to create your [facility] account: 1.Access the email account you provided upon registration to the hospital/physician office.2.Look for an invitation email from [facility].3.Open the email and access the invitation link: AcceptInvitation to [facility].4.Fill in the required white to create your account. To access your account, visit [facility] Inchart. Click the blue button labeled Access Patient Portal and then log in with the username and password that you created in the steps above. You will be able to view your test results, lab results, a summary of your visits, upcoming appointments and more. There is also a convenient messaging option where you can send secure messages to your p i2wevider. In addition, you will have the ability to download any documents or summaries to your computer and/or send the information securely to a physician. Remember that your healthcare information is confidential, so carefully consider who you will allowto register on the [facility] Patient Portal for access to your information. You can also access the [facility] Patient Portal on the [facility] johnny. Simply click on Patient Portal and then log into your account. If you would like to receive a full copy of your medical records, please contact the [facility] Medical Records Department by calling [phone], Sunday through Sunday between 8 a.m. and 4:30 p.m. HOW TO SAFELY DISPOSE OF PRESCRIPTION MEDICATIONS Please use one of the following methods to safely dispose of your unused medications. 1.Use a drug disposal kit: the drug disposal pouch allows you to safely discard your old and unuseddrugs. Ask your nurse to give you one when you are discharged.2.Visit a local take-back location: Many local pharmacies and police departments have programs that collect old and unwanted prescriptiondrugs. Call your local pharmacy or go to http://bit.Centrix/1N1Yp2i to find one close to you.3.Make use of household items: Use cat litter or old coffee grounds to dispose medications if other options arenot available. Mix your drugs with these household products, seal them in an airtight container andthrow it into the garbage. Call [facility]: [phone] to be sure your drugs can be disposed of in this way. Some medicines may require a different approach.4.Never flush your medications down the toilet. IF YOU HAVE BEEN PRESCRIBED AN OPIOID FOR PAIN If you have been prescribed an opioid (such as hydrocodone, oxycodone or morphine), it is critical to understand the possible side effects and risks of opioid pain medications. Even when taken as directed, opioids can have several side effects including: Tolerance, meaning you might need to take more of a medication for the same pain relief. Nausea, vomiting and/or constipation. Sleepiness, dizziness, dry mouth, confusion, depression or itching. Physical dependence, meaning you have withdrawal symptoms when a medication is stopped, can develop within a few days. KNOW YOUR RESPONSIBILITIES It is important to know exactly how much and how often to take the opioid pain medications you are prescribed. Never take opioids in higher amounts or more often than prescribed. Do not combine opioids with alcohol or other drugs that cause drowsiness, such as benzodiazepines, also known as benzos, including diazepam and alprazolam, muscle relaxants or sleep aids. Never sell or share prescription opioids. This is illegal. Store opioids in a secure place and out of reach of others (including children, family, friends and visitors). The last page of this document has been signed and retained as a CHART COPY. Signatures Patient Education Materials Nausea, Adult, Mphd-il-Xhbk General Anesthesia, Adult, Care After Tongue Biopsy, Care After Medication Leaflets My discharge plan and instructions have been reviewed and explained to me and ICHRISTINA REBECCA M understand my current condition and have read and understand these discharge instructions. I have received a written copy of the plan/instructions. If I have questions, I am aware that I should contact my doctor. 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 Family's history: negative. Review of Systems Ear/Nose/Mouth/Throat: Negative. Respiratory: smoker. Cardiovascular: hx stroke. Gastrointestinal: Reflux. Genitourinary: Urinary incontinence. Endocrine: Negative. Musculoskeletal: OA. Integumentary: Negative. Neurologic: anxiety, bipolar, depression, PTSD, seizures. Health Status Allergies: Allergic Reactions (Selected) Severity Not Documented Amoxicillin- No reactions were documented. Contrast dye- No reactions were documented. Erythromycin- No reactions were documented. Flagyl- No reactions were documented. Iodine- Rash. Latex- Blisters and rash. Naprosyn- No reactions were documented. Penicillin- No reactions were documented. Seafood- No reactions were documented., Allergies (9) ActiveSeverityReaction amoxicillinNone Documented Contrast dyeNone Documented erythromycinNone Documented FlagylNone Documented NaprosynNone Documented penicillinNone Documented SeafoodNone Documented LatexRash, Blisters iodineRash Current medications: (Selected) Inpatient Medications Ordered LR 1000 mL: 20 mL/hr, Intravenous Zofran ( PACU ): 4 mg, 2 mL, IV Push, AsDirected, PRN: Nausea/Vomiting morphine ( PACU ): 2 mg, 1 mL, IV Push, q5min, PRN: Pain, scale 4-6 Prescriptions Prescribed baclofen 10 mg oral tablet: 10 mg, 1 tab(s), Oral, TID, for 5 day(s), 15 tab(s), 0 Refill(s) Documented Medications Documented Ajovy Autoinjector 225 mg/1.5 mL subcutaneous solution: 0 Refill(s) Ajovy Autoinjector 225 mg/1.5 mL subcutaneous solution: 0 Refill(s) DULoxetine 30 mg oral delayed release capsule: 60 mg, 2 cap(s), Oral, qDay, 0 Refill(s) EPINEPHrine 0.3 mg injectable kit: See Instructions, 0.3 mg Intramuscular, 0 Refill(s) QUEtiapine 300 mg oral tablet: 300 mg, 1 tab(s), Oral, qHS, 90 tab(s), 0 Refill(s) Ubrelvy 100 mg oral tablet: 100 mg, 1 tab(s), Oral, Once, may repeat dose in 2 hours if needed, PRN: as needed for migraine headache, 16 tab(s), 0 Refill(s) Vitamin D3 1250 mcg (50,000 intl units) oral capsule: 1,250 mcg, 1 cap(s), Oral, qWeek, 12 cap(s), 0 Refill(s) busPIRone 10 mg oral tablet: 10 mg, 1 tab(s), Oral, BID, 0 Refill(s) carBAMazepine 200 mg oral tablet: 400 mg, 2 tab(s), Oral, BID, 0 Refill(s) cyclobenzaprine 10 mg oral tablet: 10 mg, 1 tab(s), Oral, TID, PRN: Muscle spasm, 0 Refill(s) folic acid 1 mg oral tablet: 1 mg, 1 tab(s), Oral, qDay, 90 tab(s), 0 Refill(s) gabapentin 600 mg oral tablet: 600 mg, 1 tab(s), Oral, TID, 0 Refill(s) hydrOXYzine pamoate 50 mg oral capsule: 50 mg, 1 cap(s), Oral, BID, 0 Refill(s) hydroxychloroquine 200 mg oral tablet: 400 mg, 2 tab(s), Oral, qDay, 180 tab(s), 0 Refill(s) levETIRAcetam 500 mg oral tablet: 500 mg, 1 tab(s), Oral, BID, 0 Refill(s) methotrexate 2.5 mg oral tablet: 2.5 mg, 1 tab(s), Oral, qWeek, 12 tab(s), 0 Refill(s) montelukast 10 mg oral tablet: 10 mg, 1 tab(s), Oral, qDay, 0 Refill(s) nortriptyline 10 mg oral capsule: 10 mg, 1 cap(s), Oral, TID, 0 Refill(s) pantoprazole 40 mg oral enteric coated tablet: 40 mg, 1 tab(s), Oral, qDay, 90 tab(s), 0 Refill(s) prazosin 2 mg oral capsule: 2 mg, 1 cap(s), Oral, qHS, 0 Refill(s) promethazine 25 mg oral tablet: 25 mg, 1 tab(s), Oral, TID, 0 Refill(s) scopolamine 1 mg/72 hr transdermal film, extended release: 1 patch(es), Transdermal, 0 Refill(s) simvastatin 20 mg oral tablet: 20 mg, 1 tab(s), Oral, qHS, 0 Refill(s) topiramate 200 mg oral tablet: 200 mg, 1 tab(s), Oral, qDay, 0 Refill(s), Medications (3) Active Scheduled: (0) Continuous: (1) Lactated Ringers Infusion 1000 mL 1,000 mL, Intravenous, 20 mL/hr PRN: (2) morphine 2 mg/mL 1 mL syringe 2 mg 1 mL, IV Push, q5min ondansetron 2 mg/ 1 mL 2 mL INJ 4 mg 2 mL, IV Push, AsDirected Problem list: Active Problems (15) Anxiety Bipolar disorder CAStroke DDD (degenerative disc disease), lumbar Depression Flank pain GERD (gastroesophageal reflux disease) Incontinence Kidney stone Nausea & vomiting Neuropathy OA (osteoarthritis) PTSD (post-traumatic stress disorder) Seizure Tobacco use Histories Past Medical History: No active or resolved past medical history items have been selected or recorded. Family History: Heart disease Mother Brother Stroke Father Diabetes Brother Mother Procedure history: Lapidus operation ([id number]) on 05/20/2021 at 45 Years. Comments: 05/20/2021 11:35 En[place] Self RN left foot Lapidus operation ([id number]) on 08/20/2020 at 44 Years. Comments: 08/20/2020 12:46 Saloni Ram RN LAPIDUS FUSION RIGHT FOOT, EXCISION OF NAIL RIGHT GREAT TOE Knee ([id number]) on 05/10/2020 at 44 Years. Comments: 08/20/2020 9:09 Enid Martinez RN Left, arthroscopic Hernia repair ([id number]) on 12/16/2019 at 44 Years. Shoulder ([id number]) on 04/09/1996 at 20 Years. Comments: 08/12/2020 13:37 [place] Green RN RIGHT Bladder ([id number]). Comments: 11/23/2020 10:43 Lindsey Guthrie RN MULTIPLE PROCEDURES AND BLADDER STIMULATOR Hysterectomy ([id number]). Appendectomy ([id number]). feet ([id number]). Comments: 08/12/2020 13:35 [place] Green RN BILATERAL 1997 Fusion ([id number]). Comments: 11/23/2020 10:13 Lindsey Guthrie RN LUMBAR Spinal cord stimulation ([id number]). section ([id number]). 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 Marital Status of Patient if Patient Independent Adult: Unmarried Nutrition/Health 09/20/2023 Type of diet: Regular Appetite Good Eating Difficulties None Physical Examination Vital Signs 10/04/2023 14:05 EDT Heart Rate Monitored 84 bpm bpm Respiratory Rate - Anes 10 br/min br/min Systolic Blood Pressure Non-Invasive 86 mmHg mmHg Diastolic Blood Pressure Non-Invasive 67 mmHg mmHg 10/04/2023 14:00 EDT Heart Rate Monitored 84 bpm bpm Respiratory Rate - Anes 10 br/min br/min Systolic Blood Pressure Non-Invasive 90 mmHg mmHg Diastolic Blood Pressure Non-Invasive 51 mmHg mmHg 10/04/2023 13:55 EDT Heart Rate Monitored 82 bpm bpm Respiratory Rate - Anes 13 br/min br/min Systolic Blood Pressure Non-Invasive 85 mmHg mmHg Diastolic Blood Pressure Non-Invasive 45 mmHg mmHg 10/04/2023 13:53 EDT Systolic Blood Pressure Non-Invasive 86 mmHg mmHg Diastolic Blood Pressure Non-Invasive 46 mmHg mmHg 10/04/2023 12:46 EDT Temperature Temporal Artery 36.5 DegC Peripheral Pulse Rate 89 bpm Respiratory Rate 15 br/min Vital Signs (last 24 hrs) Last Charted Temp Fxvdypkz75.5 DegC (OCT 03 12:46) Heart Rate Ncxbpirqp15 bpm (OCT 03 14:05) SBP86 mmHg (OCT 03 14:05) DBP67 mmHg (OCT 03 14:05) Measurements from flowsheet : Measurements 10/04/2023 12:46 EDT Height 170 cm Admission Weight 85.5 kg [place] Body Weight 61.44 kg Pain assessment: Pain Assessment 10/04/2023 12:46 EDT Primary Pain Location Mouth Primary Pain Intensity 6 Primary Pain Quality Aching, Dull, Sharp Pain Scale Type 0-10 Pain scale . General: Alert and oriented. Airway: Normal temporomandibular joint mobility. Mallampati classification: I (soft palate, fauces, uvula, pillars visible). Head: Normocephalic. Dentition Evaluation: No teeth. Neck: Non-tender. Respiratory: Lungs are clear to auscultation. Cardiovascular: Normal rate. Heart Sounds: Normal. Gastrointestinal: Soft. Musculoskeletal Normal range of motion. Integumentary: Intact. Neurologic: Alert, Oriented. Review / Management Results review: No qualifying data available , Lab results 10/04/2023 14:10 EDT - GCD - ASA Class 3 10/04/2023 14:07 EDT - CTm - Surgery Start 10/04/2023 14:04 10/04/2023 14:05 EDT Heart Rate Monitored 84 bpm bpm Respiratory Rate - Anes 10 br/min br/min Systolic Blood Pressure Non-Invasive 86 mmHg mmHg Diastolic Blood Pressure Non-Invasive 67 mmHg mmHg Oxygen Saturation 100 % % Set Rate Anes 10 br/min br/min 10/04/2023 14:02 EDT acetaminophen Begin Bag 100 mL mg dexAMETHasone 4 mg mg 10/04/2023 14:01 EDT ondansetron 4 mg mg 10/04/2023 14:00 EDT Heart Rate Monitored 84 bpm bpm Respiratory Rate - Anes 10 br/min br/min Systolic Blood Pressure Non-Invasive 90 mmHg mmHg Diastolic Blood Pressure Non-Invasive 51 mmHg mmHg Oxygen Saturation 100 % % Set Rate Anes 10 br/min br/min 10/04/2023 13:59 EDT fentaNYL 100 mcg mcg lidocaine 80 mg mg propofol 150 mg mg rocuronium 30 mg mg 10/04/2023 13:55 EDT Heart Rate Monitored 82 bpm bpm Respiratory Rate - Anes 13 br/min br/min Systolic Blood Pressure Non-Invasive 85 mmHg mmHg Diastolic Blood Pressure Non-Invasive 45 mmHg mmHg Oxygen Saturation 82 % % 10/04/2023 13:54 EDT SN - CTm - Anesthesia Start Time Anesthesia Start midazolam 2 mg mg 10/04/2023 13:53 EDT Systolic Blood Pressure Non-Invasive 86 mmHg mmHg Diastolic Blood Pressure Non-Invasive 46 mmHg mmHg 10/04/2023 13:23 EDT SN - Preop - CTm Pt Ready for OR/Proced 10/04/2023 13:10 10/04/2023 13:23 EDT SN - Preop - CTm Pt in SDS Room 10/04/2023 12:05 10/04/2023 13:16 EDT SN - Proc - Anesthesia Type General SN - Proc - Actual Procedure EXCISION LESION OF MUCOSA AND SUBMUCOSA WITH SIMPLE REPAIR, EXCISION LESION FLOOR OF MOUTH 10/04/2023 13:15 EDT SN - Cul - Culture Type Tissue in Formalin SN - Cul - Kind Specimen 10/04/2023 13:15 EDT SN - CAt - Case Attendee SN - CAt - Case Attendee 10/04/2023 13:14 EDT SN - CA - Medication LIDOCAINE 1%/EPI 30ML VIAL XYLOC SN - CA - Route of Administration Local SN - CA - By (Single) SN - CA - By (Single) 10/04/2023 13:14 EDT SN - PP - Body Position OP Supine 10/04/2023 12:46 EDT Height 170 cm Admission Weight 85.5 kg [place] Body Weight 61.44 kg Temperature Temporal Artery 36.5 DegC Peripheral Pulse Rate 89 bpm Respiratory Rate 15 br/min Primary Pain Location Mouth Primary Pain Intensity 6 Primary Pain Quality Aching, Dull, Sharp Pain Scale Type 0-10 Pain scale Heart Rhythm Regular Oxygen Therapy Room air Oxygen Saturation 98 % Abdomen Description Non-distended, Soft, Rounded Urinary Elimination Voiding, no difficulties Skin Symptoms Bruising Skin Description Normal for ethnicity Skin Integrity Intact Extremity Movement Equal Characteristics of Speech Clear Level of Consciousness Alert Affect/Behavior Appropriate Orientation Oriented x 4 Positioning Repositions self Sequential Compression Device bilateral knee high applied/on Standard Safety ID band on, Allergy Band on, Call device within reach, Bed in low position, Wheels locked, Visitor at bedside 10/04/2023 12:41 EDT IV Present Present Allergies Yes Anesthesia Extension Set Applied Yes Superannuation Clerk On Yes Consent Form Signed Yes Patient Dressed In Hospital gown History & Physical Update On Chart Yes History & Physical On Chart Yes Obstructive Sleep Apnea Assess Completed No Belongings At Bedside Bra, Cell phone, Pants, Shoes, Socks, T-shirt NPO Status Maintained, More than 8 hours Allergy Band on and Verified Yes Patient ID Band on and Verified Yes Implants Verified Yes Pacemaker/AICD Verified Yes Site Verified by Patient/Family Yes Anesthesia Consent Signed Yes Blood Consent Signed Yes Last Fluid Intake 10/03/2023 23:30 Last Food Intake 10/03/2023 21:00 Last Void 10/04/2023 12:44 10/04/2023 12:39 EDT Designated Person #1 We May Share DAYA SAUCEDO [phone] Designated Person #1 Relationship Sibling Designated Person #2 Relationship Other: Mental health block and case makerinternational operations manager Restrictions Requested None Status No, per patient Sensory Deficits None Sleep Apnea Snore No Sleep Apnea Tired No Sleep Apnea Obstruction No Sleep Apnea Pressure Yes Sleep Apnea BMI No Sleep Apnea Age No Sleep Apnea Neck No Sleep Apnea Gender No Sleep Apnea Score 1 Diagnosed With Sleep Apnea No Advanced Directives No - refuses information Infectious Disease Symptoms Patient states no symptoms Infectious Disease Recent Exposure No Alcohol and Drug Use No Employee of Institutional Living No Health Care Employee No History of Exposure to TB No History of Positive Chest X-Ray for TB No History of Positive TB Skin Test No Homeless No Known Immunosuppression No Recent Immigrant No Resident of Institutional Living No Bloody Sputum No Fatigue No Fever No Loss of Appetite No Night Sweats No Persistent Cough > 3 Weeks No Weight Loss No Pre-Op Patient Education NPO after midnight, No smoking after midnight, No makeup, No jewelry, Responsible Libertarian, Aware of surgery location, Pre-op education done, Instructed to take ordered medications, SSI prevention handout given SN - Preprocedure Comments Spoke with patient, Verbalizes/Nonverbally indicates understanding, Other: CARBAMAZIPINE, KEPPRA, GABAPENTIN, PANTOPRAZOLE Barriers to Learning None evident Teaching Method Explanation, Printed materials Preferred Spoken Language Tunisian Preferred Written Language Tunisian Teaching Evaluation No further teaching needed Safety Brochure Information Reviewed Yes Jose Armando Fajardo Video Viewed No Information Given by Patient Patient's Current Physicians DR. GARCIA- PCP Discharge To, Anticipated Home independently Prev Test Positive/Diagnosis w/COVID-19 No Current Quarantine/Isolated any Illness No Any Contact with Sick Animals/Birds No Traveled Anywhere in Last 30 Days No Lost Weight Unintentionally Recently No Eat Poorly Due to Decreased Appetite No Total MST Score 0 No Personal Devices, Patient Valuables None Anesthesia/Transfusions Prior anesthesia Admission Note-Nursing Same Day Patient History 10/04/2023 12:28 EDT SN - Assess - LOC Alert SN - Assess - Orientation Oriented X 3 SN - Assess - Post-op Skin Integrity Intact/Dry 10/04/2023 12:28 EDT SN - GCD - Post-operative Diagnosis 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 SN - GCD - Case Level Level 3 10/04/2023 12:28 EDT SN - CAt - Role Performed PREFORMER IMPREGNATED FABRICS 10/04/2023 12:27 EDT SN - CAt - Case Attendee SN - CAt - Case Attendee SN - CAt - Case Attendee SN - CAt - Case Attendee SN - CAt - Case Attendee SN - CAt - Case Attendee SN - CAt - Case Attendee SN - CAt - Case Attendee SN - CAt - Role Performed Primary Surgeon SN - CAt - Role Performed Hat Trimmer 1 SN - CAt - Role Performed Top Lift Nailer 1 SN - CAt - Role Performed Scrub 1 10/04/2023 0:00 EDT [place] Pre-Surgical History & Physical [place] PRE- SURGICAL HISTORY/PHYSICAL [place] Pre-Surgical History & Physical [place] PRE-SURGICAL HISTORY/PHYSICAL . Assessment and Plan [place] [employer]esthesi[employer] (ASA) physical status classification: Class III. Anesthetic Preoperative Plan Premedication: intravenous. Anesthetic technique: General. Induction: intravenously. Maintenance airway: Oral endotracheal tube. Postoperative pain management: Per surgeon. Risks discussed: nausea, vomiting, sore throat. Informed consent: signed by patient. Digitally Signed by MINH DILLON on 10/04/2023 02:16 PM [facility]06-21-2024 Note PAST MEDICAL HISTORY: Includes arthritis, bipolar disorder, anxiety, depression, migraines, uterinecancer, lupus, esophagitis, neuropathy, degenerative disk disease and bipolar disorder. PAST SURGICAL HISTORY: Appendectomy, arthroscopy, right shoulder, section, hysterectomy, repair of hernia, spinal fusion, spinal stimulator placement, bladder stimulator. SOCIAL HISTORY: Patient is a current smoker. FAMILY HISTORY: There is no family history of head or neck cancer. PHYSICAL EXAMINATION: GENERAL: The patient is pleasant and cooperative. She appears to be a good historian. The patient is in no acute distress. HEENT: Observed the facial and cervical skin is intact with no lesions or deformities. The externalears and nose are symmetrical. Ears: The left and right external auditory canals are patent. The left and right tympanic membranes are intact with no acute middle ear disease. Nose: The nasal mucosa is pink and moist with no intranasal bleeding, purulence or lesion. Oral/OP: The tonsils measure 2/4, but have no erythema or exudate. The uvula lies in midline. There are two distinct lesions intraorally. There is a lesion of the right gingival buccal sulcus, which appears to reflect a varicocele. Secondly, there is a lesion of the left mandibular alveolar ridge/floor of mouth region. NECK: The neck is supple. The trachea lies in midline. There is no thyroid or salivary mass palpable. IMPRESSION: 1. Neoplasm, uncertain behavior, right gingival buccal sulcus. 2. Neoplasm, uncertain behavior, left mandibular alveolar ridge/floor of mouth. PLAN: We have proposed excision of each lesion, that being the right gingival buccal sulcus as wellas the right mandibular alveolar ridge/floor of mouth regions. Risks, benefits and alternatives were presented, after which an informed verbal consent was obtained. DO MIKE MONACO/ANISHA JOB#: [id number] DICTATION ID#: [id number] Digitally Signed by АЛЕКСАНДР CUNNINGHAM DO on 10/04/2023 12:46 PM [facility]06-21-2024 Note SURGEON: Dr. Cunningham. 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 HISTORY OF PRESENT ILLNESS: Crys Franks is a 48-year-old seen with intraoral lesions. Firstly, the patient has a lesion of the right gingival buccal sulcus. This has been present for the last 1-1/2 years. This causes pain. The pain is rated as 7- 8/10 in severity. The pain is constant.The lesion assumes of black coloration. There has been no bleeding, drainage or foul taste. The consistency of the lesion varies between soft and hard. Overall, it has enlarged in size. Secondly, the patient has a lesion of the left mandible area. This has been present for 9-10 months. It has gradually enlarged. It is painful whenever food touches the area. The pain can be severe when the hot liquid touches the area. There is occasional bleeding with this lesion. PFSH: ALLERGIES: ERYTHROMYCIN, NAPROSYN, FLAGYL, PENICILLIN, IODINE, LITHIUM, IBUPROFEN, LASIX. MEDICATIONS: Fluticasone, baclofen, Tessalon Perles, carbamazepine, Celebrex, vitamin D3, dicyclomine, docusate, folic acid, gabapentin, hydroxychloroquine, levetiracetam, methotrexate, Reglan, nortriptyline, Protonix, prazosin, promethazine, quetiapine, simvastatin, topiramate, tramadol, Ubrelvy, Ajovy, scopolamine. PAST MEDICAL HISTORY: Includes arthritis, bipolar disorder, anxiety, depression, migraines, ____. DO MIKE MONACO/ANISHA JOB#: [id number] DICTATION ID#: [id number] Digitally Signed by АЛЕКСАНДР CUNNINGHAM DO on 10/04/2023 12:46 PM [facility]06-14-2024 Telephone encounter Note* Telephone Encounter - Julisa Jimenez LPN - 09/21/2023 1:02 PM EDT Patient states ENT, Dr. Cunningham ordered lab work. FYI, no action needed Patient had the lab work on 09/20/2023 at [facility]. Patient states she was concerned about some of the results. Advised to contact Dr. Cunningham to review the results. Encouraged to sign a release of medical records to have the results faxed to our office. Surgery for biopsies of oral lesions scheduled on 10/04/2023. Julisa Jimenez LPN [facility]06-14-2024 Miscellaneous Notes* Telephone Encounter - Julisa Jimenez LPN - 09/21/2023 1:02 PM EDT Patient states ENT, Dr. Cunningham ordered lab work. FYI, no action needed Patient had the lab work on 09/20/2023 at [facility]. Patient states she was concerned about some of the results. Advised to contact Dr. Cunningham to review the results. Encouraged to sign a release of medical records to have the results faxed to our office. Surgery for biopsies of oral lesions scheduled on 10/04/2023. Julisa Jimenez LPN [facility] Telephone encounter Note * Telephone Encounter - Monica Parks MA - 09/20/2023 10:17 AM EDT Pharmacy faxed requesting the following refill. Requested Prescriptions Pending Prescriptions Disp Refills methotrexate 2.5 mg tablet [Pharmacy Med Name: Methotrexate 2.5MG TABS] 32 tablet 2 Sig: take 8 tablets by mouth once a week Patient last appointment: 08/30/23 Next Appointment: 11/01/23 Patient Phone numbers: [phone] (home) Request is for script(s) to be escript to pharmacy. Monica Parks MA [facility]06-13-2024 Miscellaneous Notes* Telephone Encounter - Monica Parks MA - 09/20/2023 10:17 AM EDT Pharmacy faxed requesting the following refill. Requested Prescriptions Pending Prescriptions Disp Refills methotrexate 2.5 mg tablet [Pharmacy Med Name: Methotrexate 2.5MG TABS] 32 tablet 2 Sig: take 8 tablets by mouth once a week Patient last appointment: 08/30/23 Next Appointment: 11/01/23 Patient Phone numbers: [phone] (home) Request is for script(s) to be escript to pharmacy. Monica Parks MA [facility] Telephone encounter Note * Telephone Encounter - Julisa Jimenez LPN - 08/31/2023 2:35 PM EDT Patient states she will not be able to get the lab testing until next week because she does not transportation. Patient is going to ask her next door neighbor to take her to the ER. Stressed importance of not waiting until next week. Patient verbalized understanding. Patient will call next week with update. Julisa Jimenez LPN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 [employer] [place] [address]. All rights reserved. This information is not intended as a substitute for professional medical care. Always follow yourhealthcare professional's instructions. Follow Up Care 08/13/2023 07:59:26 With:your GI doctor Address:Unknown When:2-4 days Comments:Schedule appointment as soon as possibleReturn to ED if symptoms worsen With:KATHERINE MUNOZ Address: [address] [place] [phone] Business (1) When:2-4 days [facility] 05-06-2024 Note Discharge Instructions Thank you for allowing [facility] to assist you with your healthcare needs. The following is importantdischarge information regarding your hospital visit. Diagnosis from Today's Visit Abdominal pain Abdominal pain What to Do Next Instructions from Your Care Team No qualifying data available. Post Acute Orders No qualifying data available. You Need to Schedule the Following Appointments Follow Up with your GI doctor When Within 2-4 days Why: Schedule appointment as soon as possible Return to ED if symptoms worsen Follow Up with KATHERINE MUNOZ When Within 2-4 days Where: [address] [place] [phone] Business (1) Allergies Contrast dye Flagyl Latex (Blisters, Rash) Naprosyn Seafood amoxicillin erythromycin iodine (Rash) penicillin Medications Please ask your primary doctor or pharmacist before taking any other medication not listed, including over the counter drugs, herbal medications, vitamins and or supplements as they may interact withyour home medications. What How Much When Why Instructions Last Dose Unchanged ARIPiprazole (ARIPiprazole 20 mg oral tablet) 1 tab(s) by mouth Once a day Unchanged baclofen (baclofen 10 mg oral tablet) 1 tab(s) by mouth Three (3) times a day Duration: 5 Days Unchanged benzonatate (benzonatate 100 mg oral capsule) 1 cap by mouth Every 8 hours as needed for as needed for cough Unchanged carBAMazepine (carBAMazepine 200 mg oral tablet) 2 tab(s) by mouth Two (2) times a day Unchanged cefdinir (cefdinir 300 mg oral capsule) 1 cap by mouth Every 12 hours Pyelonephritis Duration: 7 Days Unchanged celecoxib (celecoxib 200 mg oral capsule) 1 cap by mouth Once a day Unchanged cholecalciferol (Vitamin D3 1250 mcg (50,000 intl units) oral capsule) 1 cap by mouth Every week Unchanged cyclobenzaprine (cyclobenzaprine 10 mg oral tablet) 1 tab(s) by mouth Three (3) times a day as needed for Muscle spasm Unchanged dicyclomine (Bentyl use dicyclomine ) 20 Milligram by mouth Four (4) times a day Duration: 7 Days Unchanged dicyclomine (Bentyl use dicyclomine ) 20 Milligram by mouth Four (4) times a day Abdominal pain Unchanged docusate (docusate sodium 100 mg oral capsule) 1 cap by mouth Two (2) times a day as needed for as needed for constipation Unchanged DULoxetine (DULoxetine 30 mg oral delayed release capsule) 2 cap by mouth Once a day Unchanged EPINEPHrine (EPINEPHrine 0.3 mg injectable kit) See instructions 0.3 mg Intramuscular Unchanged famotidine (famotidine 20 mg oral tablet) 1 tab(s) by mouth Once a day Unchanged folic acid (folic acid 1 mg oral tablet) 1 tab(s) by mouth Once a day Unchanged fremanezumab (Ajovy Autoinjector 225 mg/ 1.5 mL subcutaneous solution) Unchanged fremanezumab (Ajovy Autoinjector 225 mg/ 1.5 mL subcutaneous solution) Unchanged gabapentin (gabapentin 600 mg oral tablet) 1 tab(s) by mouth Three (3) times a day Unchanged hydroxychloroquine (hydroxychloroquine 200 mg oral tablet) 2 tab(s) by mouth Once a day Unchanged hydrOXYzine (hydrOXYzine pamoate 50 mg oral capsule) 1 cap by mouth Two (2) times a day Unchanged levETIRAcetam (levETIRAcetam 500 mg oral tablet) 1 tab(s) by mouth Two (2) times a day Unchanged methotrexate (methotrexate 2.5 mg oral tablet) 1 tab(s) by mouth Every week Unchanged metoclopramide (metoclopramide 5 mg oral tablet) 1 tab(s) by mouth Four (4) times a day Duration: 7 Days Do not take while taking Phenergan. Unchanged Misc Medication (BACLOFEN 10 MG TABLET) Unchanged montelukast (montelukast 10 mg oral tablet) 1 tab(s) by mouth Once a day Unchanged nitrofurantoin (nitrofurantoin macrocrystals-monohydrate 100 mg oral capsule) Unchanged nortriptyline (nortriptyline 10 mg oral capsule) 1 cap by mouth Three (3) times a day Unchanged omeprazole (omeprazole 40 mg oral delayed release capsule) 1 cap by mouth Once a day Unchanged pantoprazole (pantoprazole 40 mg oral enteric coated tablet) 1 tab(s) by mouth Once a day Unchanged phenazopyridine (phenazopyridine 100 mg oral tablet) 1 tab(s) by mouth Two (2) times a day Unchanged prazosin (prazosin 2 mg oral capsule) 1 cap by mouth Daily at bedtime Unchanged promethazine (promethazine 25 mg oral tablet) 1 tab(s) by mouth Three (3) times a day Unchanged QUEtiapine (QUEtiapine 300 mg oral tablet) 1 tab(s) by mouth Daily at bedtime Unchanged scopolamine (scopolamine 1 mg/ 72 hr transdermal film, extended release) 1 patch(es) Transdermal Every 72 hours apply to skin Unchanged simvastatin (simvastatin 20 mg oral tablet) 1 tab(s) by mouth Daily at bedtime Unchanged topiramate (topiramate 200 mg oral tablet) 1 tab(s) by mouth Once a day Unchanged traMADol (traMADol 50 mg oral tablet) 1 tab(s) by mouth Three (3) times a day Unchanged traZODone (traZODone 100 mg oral tablet) 3 tab(s) by mouth Daily at bedtime Unchanged ubrogepant (Ubrelvy 100 mg oral tablet) 1 tab(s) by mouth Once as needed for as needed for migraine headache may repeat dose in 2 hours if needed Please take this list to your next doctor s visit. Bring all medications you take, including over the counter medications, herbals and other supplements with you to your doctor s visit. Patients and families are reminded to discard old lists and to update any records with all medication providers or retail pharmacies. Education Materials Unknown Causes of Abdominal Pain (Female) The exact cause of your belly (abdominal) pain is not clear. This does not mean that this is something to worry about. Everyone likes to know the exact cause of the problem. But sometimes with belly pain, there is no clear-cut cause, and this could be a good thing. The good news is that your symptoms can be treated, and you will feel better. Your condition does not seem serious now. But sometimes the signs of a serious problem may take more time to appear. For this reason, it is important for you to watch for any new symptoms, problems, or worsening of your condition. Over the next few days, the abdominal pain may come and go. Or it may be constant. Other common symptoms can include nausea and vomiting. Sometimes it can be difficult to tell if you feel nauseous. You may just feel bad and not connect that feeling to nausea. Constipation, diarrhea, and a fever maygo along with the pain. The pain may continue even if treated correctly over the following days. Depending on how things go, sometimes the cause can become clear and may need more or different treatment. Additional evaluations, medicines, or tests may also be needed. Home care Your healthcare provider may prescribe medicine for pain, symptoms, or an infection. Follow the healthcare provider's instructions for taking these medicines. General care Rest as much as you can until your next exam. No strenuous activities. Try to find positions that ease discomfort. A small pillow placed on the abdomen may help relieve pain. Something warm on your abdomen (such as a heating pad) may help, but be careful not to burn yourself. Diet Don t force yourself to eat, especially if having cramps, vomiting, or diarrhea. Water is important so you don't get dehydrated. Soup may also be good. Sports drinks may also help,especially if they are not too acidic. Don't drink sugary drinks as this can make things worse. Take liquids in small amounts. Don t guzzle them. Caffeine sometimes makes the pain and cramping worse. Don t take dairy products if you have vomiting or diarrhea. Don't eat large amounts at a time. Wait a few minutes between bites. Eat a diet low in fiber (called a low-residue diet). Foods allowed include refined breads, white rice, fruit and vegetable juices without pulp, tender meats. These foods will pass more easily throughthe intestine. Don t have whole-grain foods, whole fruits and vegetables, meats, seeds and nuts, fried or fatty foods, dairy, alcohol and spicy foods until your symptoms go away. Follow-up care Follow up with your healthcare provider, or as advised, if your pain does not begin to improve in the next 24 hours. Call 911 Call 911 if any of these occur: Trouble breathing Confusion Fainting or loss of consciousness Rapid heart rate Seizure When to seek medical advice Call your healthcare provider right away if any of these occur: Pain gets worse or moves to the right lower abdomen New or worsening vomiting or diarrhea Swelling of the abdomen Unable to pass stool for more than 3 days Fever of 100.4 F (38 C) or higher, or as directed by your healthcare provider. Blood in vomit or bowel movements (dark red or black color) Yellow color of eyes and skin (jaundice) Weakness, dizziness Chest, arm, back, neck, or jaw pain Unexpected vaginal bleeding or missed period Can't keep down liquids or water and you are getting dehydrated [id number] [employer]. [address] [place] [address], [place] [address]. All rights reserved. This information is not intended as a substitute for professional medical care. Always follow yourhealthcare professional's instructions. Additional Information VACCINATE! IT SAVES LIVES! Members of the community who have not yet received the COVID-19 vaccine and would like to receive it can visit one of [facility] vaccine clinics. There are many vaccine clinic locations within the [facility]. For locations and available times, please visit www.[email or web address].[email or web address]/. It is important to note that some COVID mobile vaccine clinics are held outdoors and may be canceled in rainy or stormy conditions. To learn more about pediatric vaccinations (ages 5-11), we invite you to visit the [facility] webpage. [email or web address].[email or web address].org/pages/[email or web address]-Ozqfa-Efpiqtcgegy-Cuqohvfkyn-[email or web address] stions.htmlTo learn more about the COVID-19 vaccine, we invite you to visit the CDC website for a list of frequently asked questions. https://www.cdc.gov/coronavirus/2019-ncov/vaccines/faq.html [facility] Patient Portal Access Instructions: Stay connected with your healthcare team and access your personal medical information anytime with the [facility] Patient Portal. If you would like a full copy of your medical records please contact the [facility] Medical Records Department Sunday through Sunday between 8a.m. and 4:30p.m. Please follow the directions below to access the portal: 1.Access the email account you provided upon registration to the [facility].2.Look for an invitation email from [facility].3.Open the email and access the invitation link: Accept Invitation to [facility]4.Fill in the required white to create your account. Sign into [email or web address] with your username and password that you created in the above steps to stay up to date. You can then view a summary of results, a summary of your visits, and the ability to download your summaries to your computer or send the information securely to a physician. Remember that your healthcare information is confidential, so carefully consider who you will allow to register on the [facility] Patient Portal for access to your information. You can also access the [facility]) Patient Portal on the [employer] johnny. Simply click on Health Records under [employer] and then click on the [employer] logo. HOW TO SAFELY DISPOSE OF PRESCRIPTION MEDICATIONS Please use one of the following methods to safely dispose of your unused medications. 1.Use a drug disposal kit: the drug disposal pouch allows you to safely discard your old and unuseddrugs. Ask your nurse to give you one when you are discharged.2.Visit a local take-back location: Many local pharmacies and police departments have programs that collect old and unwanted prescriptiondrugs. Call your local pharmacy or go to http://Mobilygen.Centrix/1O1Ty9i to find one close to you.3.Make use of household items: Use cat litter or old coffee grounds to dispose medications if other options arenot available. Mix your drugs with these household products, seal them in an airtight container andthrow it into the garbage. Call [facility]: [phone] to be sure your drugs can be disposed of in this way. Some medicines may require a different approach.4.Never flush your medications down the toilet. IF YOU HAVE BEEN PRESCRIBED AN OPIOIDS FOR PAIN If you have been prescribed an opioid (such as hydrocodone, oxycodone or morphine), it is critical to understand the possible side effects and risks of opioid pain medications. Even when taken as directed, opioids can have several side effects including: Tolerance, meaning you might need to take more of a medication for the same pain relief. Nausea, vomiting and/or constipation. Sleepiness, dizziness, dry mouth, confusion, depression or itching. Physical dependence, meaning you have withdrawal symptoms when a medication is stopped ? this can develop within a few days. KNOW YOUR RESPONSIBILITIES It is important to know exactly how much and how often to take the opioid pain medications you are prescribed. Never take opioids in higher amounts or more often than prescribed. Do not combine opioids with alcohol or other drugs that cause drowsiness, such as benzodiazepines, also known as benzos,including diazepam and alprazolam, muscle relaxants or sleep aids. Never sell or share prescriptionopioids. This is illegal. Store opioids in a secure place and out of reach of others (including children, family, friends and visitors). The last page(s) of this document has been signed and retained as a CHART COPY Signatures Patient Education Materials Abdominal Pain, Unknown Cause, (Female) Medication Leaflets My discharge plan and instructions have been reviewed and explained to me and ICHRISTINA REBECCA M understand my current condition and have read and understand these discharge instructions. I have received a written copy of the plan/instructions. If I have questions, I am aware that I should contact my doctor. 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 This does not mean that this is something to worry about. Everyone likes to know the exact cause of the problem. But sometimes with belly pain, there is no clear-cut cause, and this could be a good thing. The good news is that your symptoms can be treated, and you will feel better. Your condition does not seem serious now. But sometimes the signs of a serious problem may take more time to appear. For this reason, it is important for you to watch for any new symptoms, problems, or worsening of your condition. Over the next few days, the abdominal pain may come and go. Or it may be constant. Other common symptoms can include nausea and vomiting. Sometimes it can be difficult to tell if you feel nauseous. You may just feel bad and not connect that feeling to nausea. Constipation, diarrhea, and a fever maygo along with the pain. The pain may continue even if treated correctly over the following days. Depending on how things go, sometimes the cause can become clear and may need more or different treatment. Additional evaluations, medicines, or tests may also be needed. Home care Your healthcare provider may prescribe medicine for pain, symptoms, or an infection. Follow the healthcare provider's instructions for taking these medicines. General care Rest as much as you can until your next exam. No strenuous activities. Try to find positions that ease discomfort. A small pillow placed on the abdomen may help relieve pain. Something warm on your abdomen (such as a heating pad) may help, but be careful not to burn yourself. Diet Don t force yourself to eat, especially if having cramps, vomiting, or diarrhea. Water is important so you don't get dehydrated. Soup may also be good. Sports drinks may also help,especially if they are not too acidic. Don't drink sugary drinks as this can make things worse. Take liquids in small amounts. Don t guzzle them. Caffeine sometimes makes the pain and cramping worse. Don t take dairy products if you have vomiting or diarrhea. Don't eat large amounts at a time. Wait a few minutes between bites. Eat a diet low in fiber (called a low-residue diet). Foods allowed include refined breads, white rice, fruit and vegetable juices without pulp, tender meats. These foods will pass more easily throughthe intestine. Don t have whole-grain foods, whole fruits and vegetables, meats, seeds and nuts, fried or fatty foods, dairy, alcohol and spicy foods until your symptoms go away. Follow-up care Follow up with your healthcare provider, or as advised, if your pain does not begin to improve in the next 24 hours. Call 911 Call 911 if any of these occur: Trouble breathing Confusion Fainting or loss of consciousness Rapid heart rate Seizure When to seek medical advice Call your healthcare provider right away if any of these occur: Pain gets worse or moves to the right lower abdomen New or worsening vomiting or diarrhea Swelling of the abdomen Unable to pass stool for more than 3 days Fever of 100.4 F (38 C) or higher, or as directed by your healthcare provider. Blood in vomit or bowel movements (dark red or black color) Yellow color of eyes and skin (jaundice) Weakness, dizziness Chest, arm, back, neck, or jaw pain Unexpected vaginal bleeding or missed period Can't keep down liquids or water and you are getting dehydrated [id number] [employer]. [address] [place] [address]. All rights reserved. This information is not intended as a substitute for professional medical care. Always follow yourhealthcare professional's instructions. Follow Up Care 08/09/2023 14:56:46 With:KATHERINE MUNOZ Address: [facility] [place] [address]- [phone] Business (1) When:2-4 days Comments:You may take Reglan for nausea. Drink plenty of fluids, do not take Reglan and Phenergan as these will have interactions. You must use one of the other. Follow-up with your doctor, GI doctor. Return if any worsening or concerning symptoms. [facility] Jose Armandoyesica Klein 05-02-2024 Note Discharge Instructions Thank you for allowing [facility] to assist you with your healthcare needs. The following is importantdischarge information regarding your hospital visit. Diagnosis from Today's Visit Abdominal pain Abdominal pain Nausea Vomiting Vomiting What to Do Next Instructions from Your Care Team No qualifying data available. Post Acute Orders No qualifying data available. You Need to Schedule the Following Appointments Follow Up with KATHERINE MUNOZ When Within 2-4 days Why: You may take Reglan for nausea. Drink plenty of fluids, do not take Reglan and Phenergan as these will have interactions. You must use one of the other. Follow-up with your doctor, GI doctor. Return if any worsening or concerning symptoms. Where: [address] [place] [address] [place] [address]- [phone] Business (1) Allergies Contrast dye Flagyl Latex (Blisters, Rash) Naprosyn Seafood amoxicillin erythromycin iodine (Rash) penicillin Medications Please ask your primary doctor or pharmacist before taking any other medication not listed, including over the counter drugs, herbal medications, vitamins and or supplements as they may interact withyour home medications. What How Much When Why Instructions Last Dose New metoclopramide (metoclopramide 5 mg oral tablet) 1 tab(s) by mouth Four (4) times a day Duration: 7 Days Do not take while taking Phenergan. Printed Prescription Unchanged ARIPiprazole (ARIPiprazole 20 mg oral tablet) 1 tab(s) by mouth Once a day Unchanged baclofen (baclofen 10 mg oral tablet) 1 tab(s) by mouth Three (3) times a day Duration: 5 Days Unchanged benzonatate (benzonatate 100 mg oral capsule) 1 cap by mouth Every 8 hours as needed for as needed for cough Unchanged carBAMazepine (carBAMazepine 200 mg oral tablet) 2 tab(s) by mouth Two (2) times a day Unchanged cefdinir (cefdinir 300 mg oral capsule) 1 cap by mouth Every 12 hours Pyelonephritis Duration: 7 Days Unchanged celecoxib (celecoxib 200 mg oral capsule) 1 cap by mouth Once a day Unchanged cholecalciferol (Vitamin D3 1250 mcg (50,000 intl units) oral capsule) 1 cap by mouth Every week Unchanged cyclobenzaprine (cyclobenzaprine 10 mg oral tablet) 1 tab(s) by mouth Three (3) times a day as needed for Muscle spasm Unchanged dicyclomine (Bentyl use dicyclomine ) 20 Milligram by mouth Four (4) times a day Duration: 7 Days Unchanged dicyclomine (Bentyl use dicyclomine ) 20 Milligram by mouth Four (4) times a day Abdominal pain Unchanged docusate (docusate sodium 100 mg oral capsule) 1 cap by mouth Two (2) times a day as needed for as needed for constipation Unchanged DULoxetine (DULoxetine 30 mg oral delayed release capsule) 2 cap by mouth Once a day Unchanged EPINEPHrine (EPINEPHrine 0.3 mg injectable kit) See instructions 0.3 mg Intramuscular Unchanged famotidine (famotidine 20 mg oral tablet) 1 tab(s) by mouth Once a day Unchanged folic acid (folic acid 1 mg oral tablet) 1 tab(s) by mouth Once a day Unchanged fremanezumab (Ajovy Autoinjector 225 mg/ 1.5 mL subcutaneous solution) Unchanged fremanezumab (Ajovy Autoinjector 225 mg/ 1.5 mL subcutaneous solution) Unchanged gabapentin (gabapentin 600 mg oral tablet) 1 tab(s) by mouth Three (3) times a day Unchanged hydroxychloroquine (hydroxychloroquine 200 mg oral tablet) 2 tab(s) by mouth Once a day Unchanged hydrOXYzine (hydrOXYzine pamoate 50 mg oral capsule) 1 cap by mouth Two (2) times a day Unchanged levETIRAcetam (levETIRAcetam 500 mg oral tablet) 1 tab(s) by mouth Two (2) times a day Unchanged methotrexate (methotrexate 2.5 mg oral tablet) 1 tab(s) by mouth Every week Unchanged Misc Medication (BACLOFEN 10 MG TABLET) Unchanged montelukast (montelukast 10 mg oral tablet) 1 tab(s) by mouth Once a day Unchanged nitrofurantoin (nitrofurantoin macrocrystals-monohydrate 100 mg oral capsule) Unchanged nortriptyline (nortriptyline 10 mg oral capsule) 1 cap by mouth Three (3) times a day Unchanged omeprazole (omeprazole 40 mg oral delayed release capsule) 1 cap by mouth Once a day Unchanged pantoprazole (pantoprazole 40 mg oral enteric coated tablet) 1 tab(s) by mouth Once a day Unchanged phenazopyridine (phenazopyridine 100 mg oral tablet) 1 tab(s) by mouth Two (2) times a day Unchanged prazosin (prazosin 2 mg oral capsule) 1 cap by mouth Daily at bedtime Unchanged promethazine (promethazine 25 mg oral tablet) 1 tab(s) by mouth Three (3) times a day Unchanged QUEtiapine (QUEtiapine 300 mg oral tablet) 1 tab(s) by mouth Daily at bedtime Unchanged scopolamine (scopolamine 1 mg/ 72 hr transdermal film, extended release) 1 patch(es) Transdermal Every 72 hours apply to skin Unchanged simvastatin (simvastatin 20 mg oral tablet) 1 tab(s) by mouth Daily at bedtime Unchanged topiramate (topiramate 200 mg oral tablet) 1 tab(s) by mouth Once a day Unchanged traMADol (traMADol 50 mg oral tablet) 1 tab(s) by mouth Three (3) times a day Unchanged traZODone (traZODone 100 mg oral tablet) 3 tab(s) by mouth Daily at bedtime Unchanged ubrogepant (Ubrelvy 100 mg oral tablet) 1 tab(s) by mouth Once as needed for as needed for migraine headache may repeat dose in 2 hours if needed Please take this list to your next doctor s visit. Bring all medications you take, including over the counter medications, herbals and other supplements with you to your doctor s visit. Patients and families are reminded to discard old lists and to update any records with all medication providers or retail pharmacies. Education Materials Unknown Causes of Abdominal Pain (Female) The exact cause of your belly (abdominal) pain is not clear. This does not mean that this is something to worry about. Everyone likes to know the exact cause of the problem. But sometimes with belly pain,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 06/21/2020 bilious gastric fluid, reactive gastropathy on biopsy, neg. H. pylori F SIGMOIDOSCOPY FLEX DIAG 11/12/2017 1 cm rectal mass 0-1 cm from anal verge no biopsy FOOT SURGERY HX Left 12/03/2020 HYSTERECTOMY HX 2010 KNEE SURGERY HX Left LUMBAR SPINE FUSION COMBINED 2016 PART REMV BLADDER,SIMPLE Bladder Stimulator x 4 PART REMV BLADDER,SIMPLE 12/2021 Replaced Stimulator PAST SURGICAL HISTORY OF 2006 and 2006 x 2 PAST SURGICAL HISTORY OF bladder surgery x13 last one in 2016 PAST SURGICAL HISTORY OF Right (more content not included)...[facility]10-24-2023 History of Present illness Narrative* Giuseppe Floyd PA-C - 01/30/2023 8:24 AM EDT Images from the original note were not included. [facility] Arthritis and Rheumatology Giuseppe Floyd [address] [place] [address] RHEUMATOLOGY PROGRESS NOTE Patient is here for a follow up visit for Patient presents with: Joint Pain HPI: Crys Franks is a 47 year old female who presents with SLE, RA Plaquenil 400 mg daily Last eye exam: 3 years ago Has not been seen since 10/28 Pain 11/16 all over x a few weeks. Muscle pain, joints are not swelling today. AM stiffness lasting 30-60 min. Left leg weak x 3 years ago. Right leg now declining x 1 year. Unsure why? Uses a wheelchair all the time. Using Tylenol 500 mg 2 tabs and ibuprofen 800 mg 2-3 times a day + Raynaud's. + white and blue. Smoking 4 cigarettes per day. No illicit drugs or drinking. Denies - Rash, oral ulcer, chest pain, shortness of breath One sore on right upper lip inside x 1.5 years Passing out- low BP- sz disorder- seeing neuro- getting TILT table test ER recently passed out- hit head at home. Right rib pain. CT found cysts on kidneys Pain mgmt Dr. Flash Edge. Has had inj in LS. Getting RFA soon on left side. Celebrex 200 mg daily, Cymbalta 90 mg daily, Baclofen TID, gabapentin 600 mg TID. Has a spine stimulator (recalled- has been shut off) H/o anxiety, depression, PTSD, bipolar Brief Rheumatological history - More shoulder and hand pain. Hands feels numb. Right MCP 3 swelling. Patient is referred to us by PCP for elevated PAT and atypical pANCA. Joint pain x years. all my joints. Swelling in joints. Pain is more in the mornings. AM stiffness lasting for few hours. She sees pain management. On Celebrex, gabapentin, baclofen, [place], Voltaren gel, Topamax, Cymbalta. Back inj, spine surgery. Bladder and spine stimulator. Pain is worse. She was having RUQ pain, kidney problems kidney stones, infections. Several surgeries - right shoulder, appe, total hysterectomy, BSO, left knee, hernia. Twins are 14 years old. Family h/o autoimmune disease - cousin, grandmother with lupus, mother and father with psoriasis. 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, cannot say what type Colon polyps Depression Diverticulosis Failed back syndrome H/O degenerative disc disease Hypertension Interstitial cystitis Kidney stones Post laminectomy syndrome Schizophrenia, acute (HCC) WITH AUDITORY HALLUCINATIONS Seizure (HCC) last seizure 2012 Stroke (HCC) Dec 2012 Systemic lupus erythematosus (HCC) PAST SURGICAL HISTORY Procedure Laterality Date APPENDECTOMY 2013 COLONOSCOPY 11/08/2016 diverticulitis sigmoid colon COLONOSCOPY - DIAGNOSTIC 06/21/2020 normal exam, no specimens EGD 11/12/2016 chronic gastritis, duodenal erosions, neg biopsies, neg H Pylori EGD 02/02/2000 short segment Garay's esophagus EGD 06/21/2020 bilious gastric fluid, reactive gastropathy on biopsy, neg. H. pylori F SIGMOIDOSCOPY FLEX DIAG 11/12/2017 1 cm rectal mass 0-1 cm from anal verge no biopsy FOOT SURGERY HX Left 12/03/2020 HYSTERECTOMY HX 2010 KNEE SURGERY HX Left LUMBAR SPINE FUSION COMBINED 2016 PART REMV BLADDER,SIMPLE Bladder Stimulator x 4 PART REMV BLADDER,SIMPLE 12/2021 Replaced Stimulator PAST SURGICAL HISTORY OF 2006 and 2006 x 2 PAST SURGICAL HISTORY OF bladder surgery x13 last one in 2016 PAST SURGICAL HISTORY OF Right 2011 shoulder surgery PAST SURGICAL HISTORY OF 2011 bilateral - feet REPAIR EPIGASTRIC HERNIA,REDUC History Review: I have reviewed and modified as needed, the following during this visit: Allergies,Past Medical History, Past Surgical History, Past Family History, Past Social History. Interval Review of Systems CONSTITUTIONAL: Recent Weight change: No Fever: No EYES: Dryness in nose: No Dryness of mouth: No Oral ulcers: No CARDIOVASCULAR: Pain in chest: No RESPIRATORY: Shortness of breath: No Cough: No GASTROINTESTINAL: Nausea: No Vomiting: No Changes in bowel movements: No Jaundice: No Heartburn: No MUSCULOSKELETAL: Per HPI INTEGUMENTARY: Rash: No HEMATOLOGIC/LYMPHATIC: Anemia: No NEUROLOGICAL SYSTEM: Headaches: No Sensitivity or pain of hands and/or feet: No PSYCHIATRIC: Anxiety: No Poor sleep: No BP (!) 91/49 Pulse 85 Temp 36.7 C (98 F) (Temporal) Resp 12 Physical Exam GENERAL: Well appearing, alert, comfortable, in no acute distress, well- hydrated, well nourished. HEENT: Negative for external ears normal. Canals are clear. Both TMs visualized and are normal. EyeExam normal. External nose normal, no nasal ulcer or throat ulcer. NECK: NECK Supple, no adenopathy; thyroid symmetric, normal size, no bruits CARDIAC: regular rate and rhythm, No murmur asculated., and Equal peripheral pulses RESPIRATORY: Lungs clear to auscultation. No wheezing, rhonchi, rales VASCULAR: RRR without murmur, gallop, or rubs. No ectopy. NEURO: Motor and sensory exam normal MOTOR: Normal; including tone, gait, stressed gait, power and coordination. 3/5 strength to bl upper extremity. 1/5 strength bl lower extremity SKIN: Negative for alopecia, skin rash, malar rash, skin lesion, skin ulcer, pits, thickening, color changes, telangiectasias, nail changes, nail ridging, nail pitting, onycholysis MUSCULOSKELETAL: Significant MCP pain bl, worse left MCP 3 and PIP 3 Puffy digits, difficulty making a tight fist Right elbow pain Bl shoulder impingement Low back pain Lab Results: Glucose 154 10/21/2021 ALT 11 10/21/2021 WBC 5.27 10/21/2021 HGB 14.2 10/21/2021 Platelet Count 191 10/21/2021 Serology: Radiology: IMPRESSION: Normal right shoulder radiographs RESULT: 4 views of the cervical spine demonstrate multilevel degenerative change with vertebral body osteophytosis and disc space narrowing, greatest at C3-4 and anteriorly at C6-7. 1 to 2 mm anterolisthesis of C4 on C5 and C5 on C6 with intact spinolaminal line suggesting degenerative etiology. There are no vertebral body compression deformities and alignment is otherwise well maintained. Bilateral obliques demonstrate the foramina maintained. The atlantoaxial interval and craniocervical junction are intact. There is no prevertebral soft tissue abnormality. IMPRESSION: 1. Relatively minimal degenerative changes as detailed above. No significant central canal stenosis. Mild foraminal stenosis as detailed. 2. Prior surgical changes as detailed above. 3. No evidence of fracture 4. No specific abnormality is seen within the visualized portions around the spinal stimulating generator pack. This area was incompletely included. Further assessment as clinical symptoms warrant. RESULT: Standing frontal, oblique and lateral views of the bilateral feet no acute osseous, articular or soft tissue process. Mild hallux valgus is present with remote bunionectomy changes. There has been prior arthrodesis of the first metatarsal tarsal articulations bilaterally. Visualized surgical hardware is intact and there is no radiographic evidence for loosening or superimposed fracture. Joint spaces are preserved and there are no erosive or bony destructive Changes. RESULT: 2 views of the SI joints show no acute osseous, articular or soft tissue abnormality. SI joints are patent without ankylosis or marginal erosion. The visualized bony pelvic ring is intact and the hips are bilaterally symmetric without significant joint space narrowing. Neurostimulator terminates in the left aspect of the mid to distal sacrum. Lead appears intact. Neurostimulator also seen overlying the right iliac crest. Visualized leads are intact. Assessment and Plan (M32.9) Systemic lupus erythematosus, unspecified SLE type, unspecified organ involvement status (HCC) (primary encounter diagnosis) (M05.79) Rheumatoid arthritis involving multiple sites with positive rheumatoid factor (HCC) (Z79.899) Long-term use of Plaquenil (R53.1) Weakness Patient with joint pain and family h/o autoimmune disease. She reports joint pain, swelling, raynaud's phenomenon. She was noted to have positive PAT, pANCA, dsDNA, CCP. Likely lupus causing inflammatory arthritis, overlap RA? Prednisone has helped in the past. Raynaud's. Discussed smoking cessation, keeping core body temp warm, avoiding cold, managing stress. On Plaquenil but having more pain and swelling, myalgia. Check labs. May need to add medication, likely MTX. Risks and benefits discussed. Pred taper today. Advised that neck and back pain is DJD which is not going to respond to Plaquenil. She sees pain management. Getting procedures. Has had injections, planning for left RFNA soon. Left leg is weak, no mobility. Sees neurology for seizures. On treatment. Also has history of mental health with bipolar, PTSD, anxiety, depression-on a few medications. Lately has been having dizzy spells with syncopal episodes. BP has been running low, today 91/49. Heart and lungs were clear. Advised to increase water intake and follow- up with neurology. She is scheduled for tilt table testing. Office Visit on 01/30/23 CBC + DIFF COMP METABOLIC PANEL C-REACTIVE PROTEIN (CRP) SED RATE WESTERGREN BLOOD TB SCREEN, INCUBATED C3 COMPLEMENT BLD C4 COMPLEMENT BLD DNA ANTIBODY DS BLD HEP B SURF AG SCRN HEP B SURF AB HEPATITIS C ANTIBODY IA WITH CONFIRMATION HEP B CORE AB TOTAL URINALYSIS, WITH MICROSCOPIC CK CREATINE KINASE CRITHIDIA LUCILIAE Medication orders placed this encounter predniSONE (DELTASONE) 5 mg tablet Sig: Prednisone 15 mg x 3 days, 10 mg x 3 days, 5 mg x 3 days Dispense: 18 tablet Refill: 0 Return in about 3 months (around 05/02/2023) for SLE, Dr. Adames. Giuseppe Floyd PA-C documented in this encounter[facility] Miscellaneous Notes* Telephone Encounter - Julisa Jimenez LPN - 01/23/2023 10:23 AM EDT Patient states she is having to stay in bed due to the pain. Patient is established with pain management and sees Dr. [place] in [place]. Patient is prescribed gabapentin and Baclofen and has not been on [place] since 01/2022. Onset date of pain: worsening one week ago Due to injury: Patient denies Pain location: Bilateral Arms and legs with swollen stiff joints and muscles feel like 50-100 poundweights Severity: /10 to 8/10 Quality: Heavy, tingling and Stiff Frequency: occurs constantly Radiating: No Associated symptoms: swelling Alleviating factors: Nothing Aggravating factors: certain movements Treatments tried: acetaminophen, NSAIDs, heat, ice, rest, and soaking in the tub Julisa Jimenez LPN * Telephone Encounter - Julisa Jimenez LPN - 01/23/2023 10:17 AM EDT LMTRC to ask more questions. Julisa Jimenez LPN documented in this encounter[facility] Hospital Discharge instructions Patient Education 01/17/2023 14:16:44 Headache, Migraine, Classic Migraine Headache This often severe type of headache is different from other types of headaches in that symptoms other than pain occur with the headache. Nausea and vomiting, lightheadedness, sensitivity to light (photophobia), and other visual disturbances are common migraine symptoms. The pain may last from a few hours to several days. It is not clear why migraines occur but certain factors called triggers can raise the risk of having a migraine attack. A migraine may be triggered by emotional stress or depression, or by hormone changes during the menstrual cycle. Other triggers include control pills, overuse of migraine medicines, alcohol or caffeine, foods with tyramine (such as aged cheese and wine), eyestrain, weather changes, missed meals, or too little or too much sleep. Home care Follow these tips when taking care of yourself at home: Don t drive yourself home if you were given pain medicine for your headache or are having visual symptoms. Instead, have someone else drive you home. Try to sleep when you get home. You should feel much better when you wake up. Cold can help ease migraine symptoms. Put an ice pack on your forehead or at the base of your skull. Put heat on the back of your neck to help ease any neck spasm. Drink only clear liquids or eat a light diet until your symptoms get better. This will help you avoid nausea and vomiting. How to prevent migraines Pay attention to what seems to trigger your headache. Try to avoid the triggers when you can. If you have frequent headaches, consider keeping a headache diary. In it, write down what you were doing,feeling, or eating in the hours before each headache. Show this to your healthcare provider to helpfind the cause of your headaches. If stress seems to be a trigger for your headaches, figure out what is causing stress in your life.Learn new ways to handle your stress. Ideas include regular exercise, biofeedback, self-hypnosis, yoga, and meditation. Talk with your healthcare provider to find out more information about managing stress. Many books and digital media are also available on this subject. Tyramine is a substance found in many foods. It can trigger a migraine in some people. These foods contain tyramine: Chocolate Yogurt All cheeses, but especially aged cheeses Smoked or pickled fish and meat, including hamilton, caviar, bologna, pepperoni, and salami Liver Avocados Bananas Figs Raisins Red wine Try staying away from these foods for 1 to 2 months to see if you have fewer headaches. How to treat future headaches Take time out at the first sign of a headache, if possible. Find a quiet, dark, comfortable place to sit or lie down. Let yourself relax or sleep. Put an ice pack on your forehead or on the area of greatest pain. A heating pad and massage may help if you are having a muscle spasm and tightness in your neck. If you have been prescribed a medicine to stop a migraine headache, use this at the first warning sign of the headache for best results. First signs may be an aura or pain. If you need to take medicine often for your migraine, talk with your healthcare provider about other ways to prevent your headaches. Follow-up care Follow up with your healthcare provider, or as advised. Talk with your provider if you have frequent headaches. He or she can figure out a treatment plan. Ask if you can have medicine to take at homethe next time you get a bad headache. This may keep you from having to visit the emergency department in the future. You may need to see a headache specialist (neurologist) if you continue to have headaches. When to seek medical advice Call your healthcare provider right away if any of these occur: Your head pain gets worse, or doesn t get better within 24 hours You can t keep liquids down (repeated vomiting) Pain in your sinuses, ears, or throat Fever of 100.4 F (38 C) or higher, or as directed by your healthcare provider Stiff neck Extreme drowsiness, confusion, or fainting Dizziness, or dizziness with spinning sensation (vertigo) Weakness in an arm or leg, or on one side of your face Difficulty talking or seeing [id number] [employer]. [address] [place] [address]. All rights reserved. This information is not intended as a substitute for professional medical care. Always follow yourhealthcare professional's instructions. Follow Up Care 01/17/2023 13:19:47 With:KATHERINE MUNOZ MD Address: [address] [place] [address]- [phone] When:2-4 days Comments:Return to ED if symptoms worsen [facility] 10-11-2023 Note Discharge Instructions Thank you for allowing [facility] to assist you with your healthcare needs. The following is importantdischarge information regarding your hospital visit. Diagnosis from Today's Visit Headache Headache What to Do Next Instructions from Your Care Team No qualifying data available. Post Acute Orders No qualifying data available. You Need to Schedule the Following Appointments Follow Up with KAHTERINE MUNOZ MD When Within 2-4 days Why: Return to ED if symptoms worsen Where: [address] [facility] [place] [address] [phone] Allergies Contrast dye Flagyl Latex (Blisters, Rash) Naprosyn Seafood amoxicillin erythromycin iodine (Rash) penicillin Medications Please ask your primary doctor or pharmacist before taking any other medication not listed, including over the counter drugs, herbal medications, vitamins and or supplements as they may interact withyour home medications. What How Much When Why Instructions Last Dose Unchanged ARIPiprazole (ARIPiprazole 20 mg oral tablet) 1 tab(s) by mouth Once a day Unchanged baclofen (baclofen 10 mg oral tablet) 1 tab(s) by mouth Three (3) times a day Duration: 5 Days Unchanged carBAMazepine (carBAMazepine 200 mg oral tablet) 2 tab(s) by mouth Two (2) times a day Unchanged cefdinir (cefdinir 300 mg oral capsule) 1 cap by mouth Every 12 hours Pyelonephritis Duration: 7 Days Unchanged celecoxib (celecoxib 200 mg oral capsule) 1 cap by mouth Once a day Unchanged cyclobenzaprine (cyclobenzaprine 10 mg oral tablet) 1 tab(s) by mouth Three (3) times a day as needed for Muscle spasm Unchanged dicyclomine (Bentyl use dicyclomine ) 20 Milligram by mouth Four (4) times a day Duration: 7 Days Unchanged dicyclomine (Bentyl use dicyclomine ) 20 Milligram by mouth Four (4) times a day Abdominal pain Unchanged DULoxetine (DULoxetine 30 mg oral delayed release capsule) 2 cap by mouth Once a day Unchanged EPINEPHrine (EPINEPHrine 0.3 mg injectable kit) See instructions 0.3 mg Intramuscular Unchanged famotidine (famotidine 20 mg oral tablet) 1 tab(s) by mouth Once a day Unchanged gabapentin (gabapentin 600 mg oral tablet) 1 tab(s) by mouth Three (3) times a day Unchanged hydrOXYzine (hydrOXYzine pamoate 50 mg oral capsule) 1 cap by mouth Two (2) times a day Unchanged levETIRAcetam (levETIRAcetam 500 mg oral tablet) 1 tab(s) by mouth Two (2) times a day Unchanged montelukast (montelukast 10 mg oral tablet) 1 tab(s) by mouth Once a day Unchanged nitrofurantoin (nitrofurantoin macrocrystals-monohydrate 100 mg oral capsule) Unchanged omeprazole (omeprazole 40 mg oral delayed release capsule) 1 cap by mouth Once a day Unchanged pantoprazole (pantoprazole 40 mg oral enteric coated tablet) 1 tab(s) by mouth Once a day Unchanged phenazopyridine (phenazopyridine 100 mg oral tablet) 1 tab(s) by mouth Two (2) times a day Unchanged prazosin (prazosin 2 mg oral capsule) 1 cap by mouth Daily at bedtime Unchanged promethazine (promethazine 25 mg oral tablet) 1 tab(s) by mouth Three (3) times a day Unchanged simvastatin (simvastatin 20 mg oral tablet) 1 tab(s) by mouth Daily at bedtime Unchanged topiramate (topiramate 200 mg oral tablet) 1 tab(s) by mouth Once a day Unchanged traMADol (traMADol 50 mg oral tablet) 1 tab(s) by mouth Three (3) times a day Unchanged traZODone (traZODone 100 mg oral tablet) 3 tab(s) by mouth Daily at bedtime Please take this list to your next doctor s visit. Bring all medications you take, including over the counter medications, herbals and other supplements with you to your doctor s visit. Patients and families are reminded to discard old lists and to update any records with all medication providers or retail pharmacies. Education Materials Migraine Headache This often severe type of headache is different from other types of headaches in that symptoms other than pain occur with the headache. Nausea and vomiting, lightheadedness, sensitivity to light (photophobia), and other visual disturbances are common migraine symptoms. The pain may last from a few hours to several days. It is not clear why migraines occur but certain factors called triggers can raise the risk of having a migraine attack. A migraine may be triggered by emotional stress or depression, or by hormone changes during the menstrual cycle. Other triggers include control pills, overuse of migraine medicines, alcohol or caffeine, foods with tyramine (such as aged cheese and wine), eyestrain, weather changes, missed meals, or too little or too much sleep. Home care Follow these tips when taking care of yourself at home: Don t drive yourself home if you were given pain medicine for your headache or are having visual symptoms. Instead, have someone else drive you home. Try to sleep when you get home. You should feel much better when you wake up. Cold can help ease migraine symptoms. Put an ice pack on your forehead or at the base of your skull. Put heat on the back of your neck to help ease any neck spasm. Drink only clear liquids or eat a light diet until your symptoms get better. This will help you avoid nausea and vomiting. How to prevent migraines Pay attention to what seems to trigger your headache. Try to avoid the triggers when you can. If you have frequent headaches, consider keeping a headache diary. In it, write down what you were doing,feeling, or eating in the hours before each headache. Show this to your healthcare provider to helpfind the cause of your headaches. If stress seems to be a trigger for your headaches, figure out what is causing stress in your life.Learn new ways to handle your stress. Ideas include regular exercise, biofeedback, self-hypnosis, yoga, and meditation. Talk with your healthcare provider to find out more information about managing stress. Many books and digital media are also available on this subject. Tyramine is a substance found in many foods. It can trigger a migraine in some people. These foods contain tyramine: Chocolate Yogurt All cheeses, but especially aged cheeses Smoked or pickled fish and meat, including hamilton, caviar, bologna, pepperoni, and salami Liver Avocados Bananas Figs Raisins Red wine Try staying away from these foods for 1 to 2 months to see if you have fewer headaches. How to treat future headaches Take time out at the first sign of a headache, if possible. Find a quiet, dark, comfortable place to sit or lie down. Let yourself relax or sleep. Put an ice pack on your forehead or on the area of greatest pain. A heating pad and massage may help if you are having a muscle spasm and tightness in your neck. If you have been prescribed a medicine to stop a migraine headache, use this at the first warning sign of the headache for best results. First signs may be an aura or pain. If you need to take medicine often for your migraine, talk with your healthcare provider about other ways to prevent your headaches. Follow-up care Follow up with your healthcare provider, or as advised. Talk with your provider if you have frequent headaches. He or she can figure out a treatment plan. Ask if you can have medicine to take at homethe next time you get a bad headache. This may keep you from having to visit the emergency department in the future. You may need to see a headache specialist (neurologist) if you continue to have headaches. When to seek medical advice Call your healthcare provider right away if any of these occur: Your head pain gets worse, or doesn t get better within 24 hours You can t keep liquids down (repeated vomiting) Pain in your sinuses, ears, or throat Fever of 100.4 F (38 C) or higher, or as directed by your healthcare provider Stiff neck Extreme drowsiness, confusion, or fainting Dizziness, or dizziness with spinning sensation (vertigo) Weakness in an arm or leg, or on one side of your face Difficulty talking or seeing [id number] [employer]. [address] [place] [address], [place] [address]. All rights reserved. This information is not intended as a substitute for professional medical care. Always follow yourhealthcare professional's instructions. Additional Information VACCINATE! IT SAVES LIVES! Members of the community who have not yet received the COVID-19 vaccine and would like to receive it can visit one of [facility] vaccine clinics. There are many vaccine clinic locations within the [facility]. For locations and available times, please visit www.[email or web address].[email or web address]/. It is important to note that some COVID mobile vaccine clinics are held outdoors and may be canceled in rainy or stormy conditions. To learn more about pediatric vaccinations (ages 5-11), we invite you to visit the [facility] webpage. https://www.[email or web address].org/pages/[email or web address]-Uromv-Rlplfdmesme-Ouudtycxte-Htnne-Cmz stions.htmlTo learn more about the COVID-19 vaccine, we invite you to visit the CDC website for a list of frequently asked questions. https://www.cdc.gov/coronavirus/2019-ncov/vaccines/faq.html [facility] Patient Portal Access Instructions: Stay connected with your healthcare team and access your personal medical information anytime with the [facility] Patient Portal. If you would like a full copy of your medical records please contact the [facility] Medical Records Department Sunday through Sunday between 8a.m. and 4:30p.m. Please follow the directions below to access the portal: 1.Access the email account you provided upon registration to the hospital.2.Look for an invitation email from [facility].3.Open the email and access the invitation link: Accept Invitation to [facility].Fill in the required white to create your account. Sign into [email or web address] with your username and password that you created in the above steps to stay up to date. You can then view a summary of results, a summary of your visits, and the ability to download your summaries to your computer or send the information securely to a physician. Remember that your healthcare information is confidential, so carefully consider who you will allow to register on the [facility] Patient Portal for access to your information. You can also access the [facility] Patient Portal on the [employer]. Simply click on Health Records under [employer] and then click on the [employer] logo. HOW TO SAFELY DISPOSE OF PRESCRIPTION MEDICATIONS Please use one of the following methods to safely dispose of your unused medications. 1.Use a drug disposal kit: the drug disposal pouch allows you to safely discard your old and unuseddrugs. Ask your nurse to give you one when you are discharged.2.Visit a local take-back location: Many local pharmacies and police departments have programs that collect old and unwanted prescriptiondrugs. Call your local pharmacy or go to http://Mobilygen.Centrix/4P8Jh9w to find one close to you.3.Make use of household items: Use cat litter or old coffee grounds to dispose medications if other options arenot available. Mix your drugs with these household products, seal them in an airtight container andthrow it into the garbage. Call [facility]: [phone] to be sure your drugs can be disposed of in this way. Some medicines may require a different approach.4.Never flush your medications down the toilet. IF YOU HAVE BEEN PRESCRIBED AN OPIOIDS FOR PAIN If you have been prescribed an opioid (such as hydrocodone, oxycodone or morphine), it is critical to understand the possible side effects and risks of opioid pain medications. Even when taken as directed, opioids can have several side effects including: Tolerance, meaning you might need to take more of a medication for the same pain relief. Nausea, vomiting and/or constipation. Sleepiness, dizziness, dry mouth, confusion, depression or itching. Physical dependence, meaning you have withdrawal symptoms when a medication is stopped ? this can develop within a few days. KNOW YOUR RESPONSIBILITIES It is important to know exactly how much and how often to take the opioid pain medications you are prescribed. Never take opioids in higher amounts or more often than prescribed. Do not combine opioids with alcohol or other drugs that cause drowsiness, such as benzodiazepines, also known as benzos,including diazepam and alprazolam, muscle relaxants or sleep aids. Never sell or share prescriptionopioids. This is illegal. Store opioids in a secure place and out of reach of others (including children, family, friends and visitors). The last page(s) of this document has been signed and retained as a CHART COPY Signatures Patient Education Materials Headache, Migraine, Classic Medication Leaflets My discharge plan and instructions have been reviewed and explained to me and ICHRISTINA REBECCA M understand my current condition and have read and understand these discharge instructions. I have received a written copy of the plan/instructions. If I have questions, I am aware that I should contact my doctor. 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 Patient has diagnosis of SLE and needs an appt. Last visit on 11/03/2021 noted patient needs close follow ups. Patient canceled on MyChart on: 05/08/2022 09/19/2022 Requested Prescriptions Pending Prescriptions Disp Refills hydrOXYchloroQUINE (PLAQUENIL) 200 mg tablet [Pharmacy Med Name: Hydroxychloroquine Sulfate 200MG TABS] 56 tablet 2 Sig: take 1 tablet by mouth twice a day Patient last appointment: 11/03/2021 Next Appointment: Visit date not found Patient Phone numbers: [phone] (home) Request is for script(s) to be escript to pharmacy. [facility] [address] [place] [address] - [phone] [phone] Julisa Jimenez LPN [facility] Discharge instructions Patient Education 01/10/2023 18:29:24 Diet for Vomiting or Diarrhea (Adult) Diet for Vomiting or Diarrhea (Adult) Your symptoms may return or get worse after eating certain foods listed below. If this happens, stop eating these foods until your symptoms ease and you feel better. Once the vomiting stops, follow the steps below. During the first 12 to 24 hours During the first 12 to 24 hours, follow this diet: Drinks. Plain water, sport drinks like electrolyte solutions, soft drinks without caffeine, mineralwater (plain or flavored), clear fruit juices, and decaffeinated tea and coffee. Soups. Clear broth. Desserts. Plain gelatin, popsicles, and fruit juice bars. As you feel better, you may add 6 to 8 ounces of yogurt per day. If you have diarrhea, don't have foods or drinks that contain sugar, high-fructose corn syrup, or sugar alcohols. During the next 24 hours During the next 24 hours you may add the following to the above: Hot cereal, plain toast, bread, rolls, and crackers Plain noodles, rice, mashed potatoes, and chicken noodle or rice soup Unsweetened canned fruit (but not pineapple) and bananas Don't eat more than 15 grams of fat a day. Do this by staying away from margarine, butter, oils, mayonnaise, sauces, gravies, fried foods, peanut butter, meat, poultry, and fish. Don't eat much fiber. Stay away from raw or cooked vegetables, fresh fruits (except bananas), and bran cereals. Limit how much caffeine and chocolate you have. Do not use any spices or seasonings except salt. During the next 24 hours Slowly go back to your normal diet, as you feel better and your symptoms ease. [id number] [employer]. [address] [place] [address]. All rights reserved. This information is not intended as a substitute for professional medical care. Always follow [facility] professional's instructions. 01/10/2023 18:29:11 Abdominal Pain, Unknown Cause, (Female) Unknown Causes of Abdominal Pain (Female) The exact cause of your belly (abdominal) pain is not clear. This does not mean that this is something to worry about. Everyone likes to know the exact cause of the problem. But sometimes with belly pain, there is no clear-cut cause, and this could be a good thing. The good news is that your symptoms can be treated, and you will feel better. Your condition does not seem serious now. But sometimes the signs of a serious problem may take more time to appear. For this reason, it is important for you to watch for any new symptoms, problems, or worsening of your condition. Over the next few days, the abdominal pain may come and go. Or it may be constant. Other common symptoms can include nausea and vomiting. Sometimes it can be difficult to tell if you feel nauseous. You may just feel bad and not connect that feeling to nausea. Constipation, diarrhea, and a fever maygo along with the pain. The pain may continue even if treated correctly over the following days. Depending on how things go, sometimes the cause can become clear and may need more or different treatment. Additional evaluations, medicines, or tests may also be needed. Home care Your healthcare provider may prescribe medicine for pain, symptoms, or an infection. Follow the healthcare provider's instructions for taking these medicines. General care Rest as much as you can until your next exam. No strenuous activities. Try to find positions that ease discomfort. A small pillow placed on the abdomen may help relieve pain. Something warm on your abdomen (such as a heating pad) may help, but be careful not to burn yourself. Diet Don t force yourself to eat, especially if having cramps, vomiting, or diarrhea. Water is important so you don't get dehydrated. Soup may also be good. Sports drinks may also help,especially if they are not too acidic. Don't drink sugary drinks as this can make things worse. Take liquids in small amounts. Don t guzzle them. Caffeine sometimes makes the pain and cramping worse. Don t take dairy products if you have vomiting or diarrhea. Don't eat large amounts at a time. Wait a few minutes between bites. Eat a diet low in fiber (called a low-residue diet). Foods allowed include refined breads, white rice, fruit and vegetable juices without pulp, tender meats. These foods will pass more easily throughthe intestine. Don t have whole-grain foods, whole fruits and vegetables, meats, seeds and nuts, fried or fatty foods, dairy, alcohol and spicy foods until your symptoms go away. Follow-up care Follow up with your healthcare provider, or as advised, if your pain does not begin to improve in the next 24 hours. Call 911 Call 911 if any of these occur: Trouble breathing Confusion Fainting or loss of consciousness Rapid heart rate Seizure When to seek medical advice Call your healthcare provider right away if any of these occur: Pain gets worse or moves to the right lower abdomen New or worsening vomiting or diarrhea Swelling of the abdomen Unable to pass stool for more than 3 days Fever of 100.4 F (38 C) or higher, or as directed by your healthcare provider. Blood in vomit or bowel movements (dark red or black color) Yellow color of eyes and skin (jaundice) Weakness, dizziness Chest, arm, back, neck, or jaw pain Unexpected vaginal bleeding or missed period Can't keep down liquids or water and you are getting dehydrated [id number] [employer]. [address] [place] [address]. All rights reserved. This information is not intended as a substitute for professional medical care. Always follow yourhealthcare professional's instructions. Follow Up Care 01/10/2023 16:17:51 With:Go to emergency room if symptoms worsen Address:Unknown When:2-4 days With:KATHERINE MUNOZ MD Address: [address] [place] [phone] [phone] When:2-4 days [facility] 10-04-2023 Emergency department Discharge summary Discharge Instructions Thank you for allowing [facility] to assist you with your healthcare needs. The following is importantdischarge information regarding your hospital visit. Diagnosis from Today's Visit Abdominal pain What to Do Next Instructions from Your Care Team No qualifying data available. Post Acute Orders No qualifying data available. You Need to Schedule the Following Appointments Follow Up with Go to emergency room if symptoms worsen When Within 2-4 days Follow Up with KATHERINE MUNOZ MD When Within 2-4 days Where: [facility] [place] [address] [phone] Allergies Contrast dye Flagyl Latex (Blisters, Rash) Naprosyn Seafood amoxicillin erythromycin iodine (Rash) penicillin Medications Please ask your primary doctor or pharmacist before taking any other medication not listed, including over the counter drugs, herbal medications, vitamins and or supplements as they may interact withyour home medications. What How Much When Why Instructions Last Dose Unchanged ARIPiprazole (ARIPiprazole 20 mg oral tablet) 1 tab(s) by mouth Once a day Unchanged baclofen (baclofen 10 mg oral tablet) 1 tab(s) by mouth Three (3) times a day Duration: 5 Days Unchanged carBAMazepine (carBAMazepine 200 mg oral tablet) 2 tab(s) by mouth Two (2) times a day Unchanged cefdinir (cefdinir 300 mg oral capsule) 1 cap by mouth Every 12 hours Pyelonephritis Duration: 7 Days Unchanged celecoxib (celecoxib 200 mg oral capsule) 1 cap by mouth Once a day Unchanged cyclobenzaprine (cyclobenzaprine 10 mg oral tablet) 1 tab(s) by mouth Three (3) times a day as needed for Muscle spasm Unchanged dicyclomine (Bentyl use dicyclomine ) 20 Milligram by mouth Four (4) times a day Duration: 7 Days Unchanged dicyclomine (Bentyl use dicyclomine ) 20 Milligram by mouth Four (4) times a day Abdominal pain Unchanged DULoxetine (DULoxetine 30 mg oral delayed release capsule) 2 cap by mouth Once a day Unchanged EPINEPHrine (EPINEPHrine 0.3 mg injectable kit) See instructions 0.3 mg Intramuscular Unchanged famotidine (famotidine 20 mg oral tablet) 1 tab(s) by mouth Once a day Unchanged gabapentin (gabapentin 600 mg oral tablet) 1 tab(s) by mouth Three (3) times a day Unchanged hydrOXYzine (hydrOXYzine pamoate 50 mg oral capsule) 1 cap by mouth Two (2) times a day Unchanged levETIRAcetam (levETIRAcetam 500 mg oral tablet) 1 tab(s) by mouth Two (2) times a day Unchanged montelukast (montelukast 10 mg oral tablet) 1 tab(s) by mouth Once a day Unchanged nitrofurantoin (nitrofurantoin macrocrystals-monohydrate 100 mg oral capsule) Unchanged omeprazole (omeprazole 40 mg oral delayed release capsule) 1 cap by mouth Once a day Unchanged pantoprazole (pantoprazole 40 mg oral enteric coated tablet) 1 tab(s) by mouth Once a day Unchanged phenazopyridine (phenazopyridine 100 mg oral tablet) 1 tab(s) by mouth Two (2) times a day Unchanged prazosin (prazosin 2 mg oral capsule) 1 cap by mouth Daily at bedtime Unchanged promethazine (promethazine 25 mg oral tablet) 1 tab(s) by mouth Three (3) times a day Unchanged simvastatin (simvastatin 20 mg oral tablet) 1 tab(s) by mouth Daily at bedtime Unchanged topiramate (topiramate 200 mg oral tablet) 1 tab(s) by mouth Once a day Unchanged traMADol (traMADol 50 mg oral tablet) 1 tab(s) by mouth Three (3) times a day Unchanged traZODone (traZODone 100 mg oral tablet) 3 tab(s) by mouth Daily at bedtime Please take this list to your next doctor s visit. Bring all medications you take, including over the counter medications, herbals and other supplements with you to your doctor s visit. Patients and families are reminded to discard old lists and to update any records with all medication providers or retail pharmacies. Education Materials Diet for Vomiting or Diarrhea (Adult) Your symptoms may return or get worse after eating certain foods listed below. If this happens, stop eating these foods until your symptoms ease and you feel better. Once the vomiting stops, follow the steps below. During the first 12 to 24 hours During the first 12 to 24 hours, follow this diet: Drinks. Plain water, sport drinks like electrolyte solutions, soft drinks without caffeine, mineralwater (plain or flavored), clear fruit juices, and decaffeinated tea and coffee. Soups. Clear broth. Desserts. Plain gelatin, popsicles, and fruit juice bars. As you feel better, you may add 6 to 8 ounces of yogurt per day. If you have diarrhea, don't have foods or drinks that contain sugar, high-fructose corn syrup, or sugar alcohols. During the next 24 hours During the next 24 hours you may add the following to the above: Hot cereal, plain toast, bread, rolls, and crackers Plain noodles, rice, mashed potatoes, and chicken noodle or rice soup Unsweetened canned fruit (but not pineapple) and bananas Don't eat more than 15 grams of fat a day. Do this by staying away from margarine, butter, oils, mayonnaise, sauces, gravies, fried foods, peanut butter, meat, poultry, and fish. Don't eat much fiber. Stay away from raw or cooked vegetables, fresh fruits (except bananas), and bran cereals. Limit how much caffeine and chocolate you have. Do not use any spices or seasonings except salt. During the next 24 hours Slowly go back to your normal diet, as you feel better and your symptoms ease. 3563-0143 [employer]. [address] [place] [id number]. All rights reserved. This information is not intended as a substitute for professional medical care. Always follow yourhealthcare professional's instructions. Unknown Causes of Abdominal Pain (Female) The exact cause of your belly (abdominal) pain is not clear. This does not mean that this is something to worry about. Everyone likes to know the exact cause of the problem. But sometimes with belly pain, there is no clear-cut cause, and this could be a good thing. The good news is that your symptoms can be treated, and you will feel better. Your condition does not seem serious now. But sometimes the signs of a serious problem may take more time to appear. For this reason, it is important for you to watch for any new symptoms, problems, or worsening of your condition. Over the next few days, the abdominal pain may come and go. Or it may be constant. Other common symptoms can include nausea and vomiting. Sometimes it can be difficult to tell if you feel nauseous. You may just feel bad and not connect that feeling to nausea. Constipation, diarrhea, and a fever maygo along with the pain. The pain may continue even if treated correctly over the following days. Depending on how things go, sometimes the cause can become clear and may need more or different treatment. Additional evaluations, medicines, or tests may also be needed. Home care Your healthcare provider may prescribe medicine for pain, symptoms, or an infection. Follow the healthcare provider's instructions for taking these medicines. General care Rest as much as you can until your next exam. No strenuous activities. Try to find positions that ease discomfort. A small pillow placed on the abdomen may help relieve pain. Something warm on your abdomen (such as a heating pad) may help, but be careful not to burn yourself. Diet Don t force yourself to eat, especially if having cramps, vomiting, or diarrhea. Water is important so you don't get dehydrated. Soup may also be good. Sports drinks may also help,especially if they are not too acidic. Don't drink sugary drinks as this can make things worse. Take liquids in small amounts. Don t guzzle them. Caffeine sometimes makes the pain and cramping worse. Don t take dairy products if you have vomiting or diarrhea. Don't eat large amounts at a time. Wait a few minutes between bites. Eat a diet low in fiber (called a low-residue diet). Foods allowed include refined breads, white rice, fruit and vegetable juices without pulp, tender meats. These foods will pass more easily throughthe intestine. Don t have whole-grain foods, whole fruits and vegetables, meats, seeds and nuts, fried or fatty foods, dairy, alcohol and spicy foods until your symptoms go away. Follow-up care Follow up with your healthcare provider, or as advised, if your pain does not begin to improve in the next 24 hours. Call 911 Call 911 if any of these occur: Trouble breathing Confusion Fainting or loss of consciousness Rapid heart rate Seizure When to seek medical advice Call your healthcare provider right away if any of these occur: Pain gets worse or moves to the right lower abdomen New or worsening vomiting or diarrhea Swelling of the abdomen Unable to pass stool for more than 3 days Fever of 100.4 F (38 C) or higher, or as directed by your healthcare provider. Blood in vomit or bowel movements (dark red or black color) Yellow color of eyes and skin (jaundice) Weakness, dizziness Chest, arm, back, neck, or jaw pain Unexpected vaginal bleeding or missed period Can't keep down liquids or water and you are getting dehydrated 5443-4110 [employer]. [address] [place] [address], [place] [address]. All rights reserved. This information is not intended as a substitute for professional medical care. Always follow yourhealthcare professional's instructions. Additional Information VACCINATE! IT SAVES LIVES! Members of the community who have not yet received the COVID-19 vaccine and would like to receive it can visit one of [facility] vaccine clinics. There are many vaccine clinic locations within the [facility]. For locations and available times, please visit [email or web address] It is important to note that some COVID mobile vaccine clinics are held outdoors and may be canceled in rainy or stormy conditions. To learn more about pediatric vaccinations (ages 5-11), we invite you to visit the [facility] webpage. https://www.[facility].org/pages/1937-Zqotj-Pdwkdaeqwkd-Jdfbfvepbr-Hkxqr-Ixb stions.htmlTo learn more about the COVID-19 vaccine, we invite you to visit the CDC website for a list of frequently asked questions. https://www.cdc.gov/coronavirus/2019-ncov/vaccines/faq.html [facility] Patient Portal Access Instructions: Stay connected with your healthcare team and access your personal medical information anytime with the [facility] Patient Portal. If you would like a full copy of your medical records please contact the [facility] Medical Records Department Sunday through Sunday between 8a.m. and 4:30p.m. Please follow the directions below to access the portal: 1.Access the email account you provided upon registration to the hospital.2.Look for an invitation email from [facility].3.Open the email and access the invitation link: Accept Invitation to [facility].Fill in the required white to create your account. Sign into [email or web address] with your username and password that you created in the above steps to stay up to date. You can then view a summary of results, a summary of your visits, and the ability to download your summaries to your computer or send the information securely to a physician. Remember that your healthcare information is confidential, so carefully consider who you will allow to register on the [facility] Patient Portal for access to your information. You can also access the [facility]) Patient Portal on the [employer] johnny. Simply click on Health Records under [employer] and then click on the [employer] logo. HOW TO SAFELY DISPOSE OF PRESCRIPTION MEDICATIONS Please use one of the following methods to safely dispose of your unused medications. 1.Use a drug disposal kit: the drug disposal pouch allows you to safely discard your old and unuseddrugs. Ask your nurse to give you one when you are discharged.2.Visit a local take-back location: Many local pharmacies and police departments have programs that collect old and unwanted prescriptiondrugs. Call your local pharmacy or go to http://bit.Centrix/2O4Vv8i to find one close to you.3.Make use of household items: Use cat litter or old coffee grounds to dispose medications if other options arenot available. Mix your drugs with these household products, seal them in an airtight container andthrow it into the garbage. Call [facility]: [phone] to be sure your drugs can be disposed of in this way. Some medicines may require a different approach.4.Never flush your medications down the toilet. IF YOU HAVE BEEN PRESCRIBED AN OPIOIDS FOR PAIN If you have been prescribed an opioid (such as hydrocodone, oxycodone or morphine), it is critical to understand the possible side effects and risks of opioid pain medications. Even when taken as directed, opioids can have several side effects including: Tolerance, meaning you might need to take more of a medication for the same pain relief. Nausea, vomiting and/or constipation. Sleepiness, dizziness, dry mouth, confusion, depression or itching. Physical dependence, meaning you have withdrawal symptoms when a medication is stopped ? this can develop within a few days. KNOW YOUR RESPONSIBILITIES It is important to know exactly how much and how often to take the opioid pain medications you are prescribed. Never take opioids in higher amounts or more often than prescribed. Do not combine opioids with alcohol or other drugs that cause drowsiness, such as benzodiazepines, also known as benzos,including diazepam and alprazolam, muscle relaxants or sleep aids. Never sell or share prescriptionopioids. This is illegal. Store opioids in a secure place and out of reach of others (including children, family, friends and visitors). The last page(s) of this document has been signed and retained as a CHART COPY Signatures Patient Education Materials Diet for Vomiting or Diarrhea (Adult) Abdominal Pain, Unknown Cause, (Female) Medication Leaflets My discharge plan and instructions have been reviewed and explained to me and ICHRISTINA REBECCA M understand my current condition and have read and understand these discharge instructions. I have received a written copy of the plan/instructions. If I have questions, I am aware that I should contact my doctor. 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 The cause of your headache isn t clear. But it doesn t seemto be a sign of any serious illness. Headache affects almost everyone at some time. It is the most common reason people miss days from work or school. You could have a tension headache or a migraine headache. Stress can cause a tension headache. This can happen if you tense the muscles of your shoulders, neck, and scalp without knowing it. If this stress lasts long enough, you may develop a tension headache. It is not clear why migraines occur, but certain things called triggers can raise the risk of having a migraine attack. Migraine triggers may include emotional stress or depression, or by hormone changes during the menstrual cycle. Other triggers include control pills and other medicines, alcohol or caffeine, foods with tyramine (such as aged cheese, wine), eyestrain, weather changes, missed meals, and lack of sleep or oversleeping. Other causes of headache include: Viral illness with high fever Head injury with concussion Sinus, ear, or throat infection Dental pain and jaw joint (TMJ) pain More serious but less common causes of headache include stroke, brain hemorrhage, brain tumor, meningitis, and encephalitis. Home care Follow these tips when taking care of yourself at home: Don t drive yourself home if you were given pain medicine for your headache. Instead, have someone else drive you home. Try to sleep when you get home. You should feel much better when you wake up. Apply heat to the back of your neck to ease a neck muscle spasm. Take care of a migraine headache by putting an ice pack on your forehead or at the base of your skull. If you have nausea or vomiting, eat a light diet until your headache eases. If you have a migraine headache, use sunglasses when in the daylight or around bright indoor lighting until your symptoms get better. Bright glaring light can make this type of headache worse. Follow-up care Follow up with your healthcare provider, or as advised. Talk with your provider if you have frequent headaches. He or she can help figure out a treatment plan. By knowing the earliest signs of headache, and starting treatment right away, you may be able to stop the pain yourself. When to seek medical advice Call your healthcare provider right away if any of these occur: Your head pain suddenly gets worse after sexual intercourse or strenuous activity Your head pain doesn t get better within 24 hours You aren t able to keep liquids down (repeated vomiting) Fever of 100.4 F (38 C) or higher, or as directed by your healthcare provider Stiff neck Extreme drowsiness, confusion, or fainting Dizziness or dizziness with spinning sensation (vertigo) Weakness in an arm or leg or one side of your face You have trouble talking or seeing [id number] [employer] [address] [place] [address]. All rights reserved. This information is not intended as a substitute for professional medical care. Always follow yourhealthcare professional's instructions. Follow Up Care 11/27/2022 15:22:09 With:ОЛЬГА DAVE Address: When:2-4 days With:KATHERINE MUNOZ MD Address: [address] [place] [address] [phone] When:2-4 days With:Go to emergency room if symptoms worsen Address:Unknown When:2-4 days [facility] 08-21-2023 Note Discharge Instructions Thank you for allowing [facility] to assist you with your healthcare needs. The following is importantdischarge information regarding your hospital visit. Diagnosis from Today's Visit Headache Headache What to Do Next Instructions from Your Care Team No qualifying data available. Post Acute Orders No qualifying data available. You Need to Schedule the Following Appointments Follow Up with ОЛЬГА DAVE When Within 2-4 days Where: Follow Up with KATHERINE MUNOZ MD When Within 2-4 days Where: [address] [place], [place] [id number]- [phone] Follow Up with Go to emergency room if symptoms worsen When Within 2-4 days Allergies Contrast dye Flagyl Latex (Blisters, Rash) Naprosyn Seafood amoxicillin erythromycin iodine (Rash) penicillin Medications Please ask your primary doctor or pharmacist before taking any other medication not listed, including over the counter drugs, herbal medications, vitamins and or supplements as they may interact withyour home medications. What How Much When Why Instructions Last Dose New rimegepant (Nurtec ODT 75 mg oral tablet, disintegrating) 1 tab(s) by mouth Every other day allow tablet to dissolve on tongue Printed Prescription Unchanged ARIPiprazole (ARIPiprazole 20 mg oral tablet) 1 tab(s) by mouth Once a day Unchanged baclofen (baclofen 10 mg oral tablet) 1 tab(s) by mouth Three (3) times a day Duration: 5 Days Unchanged carBAMazepine (carBAMazepine 200 mg oral tablet) 2 tab(s) by mouth Two (2) times a day Unchanged cefdinir (cefdinir 300 mg oral capsule) 1 cap by mouth Every 12 hours Pyelonephritis Duration: 7 Days Unchanged celecoxib (celecoxib 200 mg oral capsule) 1 cap by mouth Once a day Unchanged cyclobenzaprine (cyclobenzaprine 10 mg oral tablet) 1 tab(s) by mouth Three (3) times a day as needed for Muscle spasm Unchanged dicyclomine (Bentyl use dicyclomine ) 20 Milligram by mouth Four (4) times a day Duration: 7 Days Unchanged dicyclomine (Bentyl use dicyclomine ) 20 Milligram by mouth Four (4) times a day Abdominal pain Unchanged DULoxetine (DULoxetine 30 mg oral delayed release capsule) 2 cap by mouth Once a day Unchanged EPINEPHrine (EPINEPHrine 0.3 mg injectable kit) See instructions 0.3 mg Intramuscular Unchanged famotidine (famotidine 20 mg oral tablet) 1 tab(s) by mouth Once a day Unchanged gabapentin (gabapentin 600 mg oral tablet) 1 tab(s) by mouth Three (3) times a day Unchanged hydrOXYzine (hydrOXYzine pamoate 50 mg oral capsule) 1 cap by mouth Two (2) times a day Unchanged levETIRAcetam (levETIRAcetam 500 mg oral tablet) 1 tab(s) by mouth Two (2) times a day Unchanged montelukast (montelukast 10 mg oral tablet) 1 tab(s) by mouth Once a day Unchanged nitrofurantoin (nitrofurantoin macrocrystals-monohydrate 100 mg oral capsule) Unchanged omeprazole (omeprazole 40 mg oral delayed release capsule) 1 cap by mouth Once a day Unchanged pantoprazole (pantoprazole 40 mg oral enteric coated tablet) 1 tab(s) by mouth Once a day Unchanged phenazopyridine (phenazopyridine 100 mg oral tablet) 1 tab(s) by mouth Two (2) times a day Unchanged prazosin (prazosin 2 mg oral capsule) 1 cap by mouth Daily at bedtime Unchanged promethazine (promethazine 25 mg oral tablet) 1 tab(s) by mouth Three (3) times a day Unchanged simvastatin (simvastatin 20 mg oral tablet) 1 tab(s) by mouth Daily at bedtime Unchanged topiramate (topiramate 200 mg oral tablet) 1 tab(s) by mouth Once a day Unchanged traMADol (traMADol 50 mg oral tablet) 1 tab(s) by mouth Three (3) times a day Unchanged traZODone (traZODone 100 mg oral tablet) 3 tab(s) by mouth Daily at bedtime Please take this list to your next doctor s visit. Bring all medications you take, including over the counter medications, herbals and other supplements with you to your doctor s visit. Patients and families are reminded to discard old lists and to update any records with all medication providers or retail pharmacies. Medication Leaflets rimegepant (bert forrester) Nurte ODT What is the most important information I should know about rimegepant? Follow all directions on your medicine label and package. Tell each of your healthcare providers about all your medical conditions, allergies, and all medicines you use. What is rimegepant? Rimegepant is used in adults to treat a migraine headache with or without aura. Rimegepant will not prevent migraines. Rimegepant may also be used for purposes not listed in this medication guide. What should I discuss with my healthcare provider before taking rimegepant? You should not use rimegepant if you are allergic to it. Tell your doctor if you have ever had: liver disease; or kidney disease (or if you are on dialysis). It is not known whether rimegepant will harm an unborn baby. However, having migraine headaches maycause complications during such as dangerously high blood pressure that can lead to medical problems in both mother and baby. The benefit of treating migraines may outweigh any risks to thebaby. It may not be safe to breastfeed while using this medicine. Ask your doctor about any risk. Rimegepant is not approved for use by anyone younger than 18 years old. How should I take rimegepant? Follow all directions on your prescription label and read all medication guides or instruction sheets. Use the medicine exactly as directed. Call your doctor if your symptoms do not improve, or if you have more than 15 headaches in one month (30 days). Remove an orally disintegrating tablet from the package only when you are ready to take the medicine. Place the tablet on or under your tongue and allow it to dissolve, without chewing. Swallow several times as the tablet dissolves. Store at cool room temperature, away from moisture and heat. What happens if I miss a dose? Since rimegepant is used when needed, it does not have a daily dosing schedule. Call your doctor ifyour symptoms do not improve after using this medicine. What happens if I overdose? Seek emergency medical attention or call the Poison Help line at . What should I avoid while taking rimegepant? Follow your doctor's instructions about any restrictions on food, beverages, or activity. What are the possible side effects of rimegepant? Get emergency medical help if you have signs of an allergic reaction: hives, rash; difficult breathing; swelling of your face, lips, tongue, or throat. An allergic reaction can be severe, and may occur days after you have taken rimegepant. Common side effects may include nausea. This is not a complete list of side effects and others may occur. Call your doctor for medical advice about side effects. You may report side effects to FDA at 8-142-BGT-6797. What other drugs will affect rimegepant? Sometimes it is not safe to use certain medications at the same time. Some drugs can affect your blood levels of other drugs you take, which may increase side effects or make the medications less effective. If you use any of the following medicines, avoid taking rimegepant within 48 hours after you last took the other medicine: aprepitant; erythromycin; fluconazole; or heart or blood pressure medicine--diltiazem, verapamil. This list is not complete and many other drugs may affect rimegepant. This includes prescription and uaro-oxq-exyzexx medicines, vitamins, and herbal products. Not all possible drug interactions are listed here. Where can I get more information? Your pharmacist can provide more information about rimegepant. Remember, keep this and all other medicines out of the reach of children, never share your medicines with others, and use this medication only for the indication prescribed. Every effort has been made to ensure that the information provided by [employer]. ('[employer]') is accurate, up-to-date, and complete, but no guarantee is made to that effect. Drug information contained herein may be time sensitive. [employer] information has been compiled for use by healthcare practitioners and consumers in the [place] and therefore [employer] does not warrant that uses outside of the [place] are appropriate, unless specifically indicated otherwise. [employer] drug information does not endorse drugs, diagnose patients or recommend therapy. [employer] drug information isan informational resource designed to assist licensed healthcare practitioners in caring for their p atients and/or to serve consumers viewing this service as a supplement to, and not a substitute for, the expertise, skill, knowledge and judgment of healthcare practitioners. The absence of a warningfor a given drug or drug combination in no way should be construed to indicate that the drug or drug combination is safe, effective or appropriate for any given patient. [employer] does not assume any responsibility for any aspect of healthcare administered with the aid of information [employer] provides. The information contained herein is not intended to cover all possible uses, directions, precautions, warnings, drug interactions, allergic reactions, or adverse effects. If you have questions about the drugs you are taking, check with your doctor, nurse or pharmacist. Copyright 4528-3984 [employer]. Version: 1.01. Revision Date: 07/04/2019. Education Materials Headache, Unspecified A number of things can cause headaches. The cause of your headache isn t clear. But it doesn t seemto be a sign of any serious illness. Headache affects almost everyone at some time. It is the most common reason people miss days from work or school. You could have a tension headache or a migraine headache. Stress can cause a tension headache. This can happen if you tense the muscles of your shoulders, neck, and scalp without knowing it. If this stress lasts long enough, you may develop a tension headache. It is not clear why migraines occur, but certain things called triggers can raise the risk of having a migraine attack. Migraine triggers may include emotional stress or depression, or by hormone changes during the menstrual cycle. Other triggers include control pills and other medicines, alcohol or caffeine, foods with tyramine (such as aged cheese, wine), eyestrain, weather changes, missed meals, and lack of sleep or oversleeping. Other causes of headache include: Viral illness with high fever Head injury with concussion Sinus, ear, or throat infection Dental pain and jaw joint (TMJ) pain More serious but less common causes of headache include stroke, brain hemorrhage, brain tumor, meningitis, and encephalitis. Home care Follow these tips when taking care of yourself at home: Don t drive yourself home if you were given pain medicine for your headache. Instead, have someone else drive you home. Try to sleep when you get home. You should feel much better when you wake up. Apply heat to the back of your neck to ease a neck muscle spasm. Take care of a migraine headache by putting an ice pack on your forehead or at the base of your skull. If you have nausea or vomiting, eat a light diet until your headache eases. If you have a migraine headache, use sunglasses when in the daylight or around bright indoor lighting until your symptoms get better. Bright glaring light can make this type of headache worse. Follow-up care Follow up with your healthcare provider, or as advised. Talk with your provider if you have frequent headaches. He or she can help figure out a treatment plan. By knowing the earliest signs of headache, and starting treatment right away, you may be able to stop the pain yourself. When to seek medical advice Call your healthcare provider right away if any of these occur: Your head pain suddenly gets worse after sexual intercourse or strenuous activity Your head pain doesn t get better within 24 hours You aren t able to keep liquids down (repeated vomiting) Fever of 100.4 F (38 C) or higher, or as directed by your healthcare provider Stiff neck Extreme drowsiness, confusion, or fainting Dizziness or dizziness with spinning sensation (vertigo) Weakness in an arm or leg or one side of your face You have trouble talking or seeing 2959-3788 [employer]. [address] [place] [address], [place] [address]. All rights reserved. This information is not intended as a substitute for professional medical care. Always follow yourhealthcare professional's instructions. Additional Information VACCINATE! IT SAVES LIVES! Members of the community who have not yet received the COVID-19 vaccine and would like to receive it can visit one of [facility] vaccine clinics. There are many vaccine clinic locations within the [facility]. For locations and available times, please visit [email or web address] It is important to note that some COVID mobile vaccine clinics are held outdoors and may be canceled in rainy or stormy conditions. To learn more about pediatric vaccinations (ages 5-11), we invite you to visit the [employer] [facility] webpage. [email or web address] learn more about the COVID-19 vaccine, we invite you to visit the CDC website for a list of frequently asked questions. https://www.cdc.gov/coronavirus/2019-ncov/vaccines/faq.html [facility] Patient Portal Access Instructions: Stay connected with your healthcare team and access your personal medical information anytime with the [facility] Patient Portal. If you would like a full copy of your medical records please contact the [facility] Medical Records Department Sunday through Sunday between 8a.m. and 4:30p.m. Please follow the directions below to access the portal: 1.Access the email account you provided upon registration to the hospital.2.Look for an invitation email from [facility].3.Open the email and access the invitation link: Accept Invitation to [facility] ([facility])4.Fill in the required white to create your account. Sign into [email or web address] with your username and password that you created in the above steps to stay up to date. You can then view a summary of results, a summary of your visits, and the ability to download your summaries to your computer or send the information securely to a physician. Remember that your healthcare information is confidential, so carefully consider who you will allow to register on the [facility] ([facility]) Patient Portal for access to your information. You can also access the [facility] ([facility]) Patient Portal on the [employer]. Simply click on Health Records under [employer] and then click on the [employer] logo. HOW TO SAFELY DISPOSE OF PRESCRIPTION MEDICATIONS Please use one of the following methods to safely dispose of your unused medications. 1.Use a drug disposal kit: the drug disposal pouch allows you to safely discard your old and unuseddrugs. Ask your nurse to give you one when you are discharged.2.Visit a local take-back location: Many local pharmacies and police departments have programs that collect old and unwanted prescriptiondrugs. Call your local pharmacy or go to http://Mobilygen.Centrix/7J2Ot0m to find one close to you.3.Make use of household items: Use cat litter or old coffee grounds to dispose medications if other options arenot available. Mix your drugs with these household products, seal them in an airtight container andthrow it into the garbage. Call [facility]: [phone] to be sure your drugs can be disposed of in this way. Some medicines may require a different approach.4.Never flush your medications down the toilet. IF YOU HAVE BEEN PRESCRIBED AN OPIOIDS FOR PAIN If you have been prescribed an opioid (such as hydrocodone, oxycodone or morphine), it is critical to understand the possible side effects and risks of opioid pain medications. Even when taken as directed, opioids can have several side effects including: Tolerance, meaning you might need to take more of a medication for the same pain relief. Nausea, vomiting and/or constipation. Sleepiness, dizziness, dry mouth, confusion, depression or itching. Physical dependence, meaning you have withdrawal symptoms when a medication is stopped ? this can develop within a few days. KNOW YOUR RESPONSIBILITIES It is important to know exactly how much and how often to take the opioid pain medications you are prescribed. Never take opioids in higher amounts or more often than prescribed. Do not combine opioids with alcohol or other drugs that cause drowsiness, such as benzodiazepines, also known as benzos,including diazepam and alprazolam, muscle relaxants or sleep aids. Never sell or share prescriptionopioids. This is illegal. Store opioids in a secure place and out of reach of others (including children, family, friends and visitors). The last page(s) of this document has been signed and retained as a CHART COPY Signatures Patient Education Materials Headache, Unspecified Medication Leaflets rimegepant My discharge plan and instructions have been reviewed and explained to me and CHRISTINA Clark, CRYS Carson understand my current condition and have read and understand these discharge instructions. I have received a written copy of the plan/instructions. If I have questions, I am aware that I should contact my doctor. 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 The cause of your headache isn t clear. But it doesn t seemto be a sign of any serious illness. Headache affects almost everyone at some time. It is the most common reason people miss days from work or school. You could have a tension headache or a migraine headache. Stress can cause a tension headache. This can happen if you tense the muscles of your shoulders, neck, and scalp without knowing it. If this stress lasts long enough, you may develop a tension headache. It is not clear why migraines occur, but certain things called triggers can raise the risk of having a migraine attack. Migraine triggers may include emotional stress or depression, or by hormone changes during the menstrual cycle. Other triggers include control pills and other medicines, alcohol or caffeine, foods with tyramine (such as aged cheese, wine), eyestrain, weather changes, missed meals, and lack of sleep or oversleeping. Other causes of headache include: Viral illness with high fever Head injury with concussion Sinus, ear, or throat infection Dental pain and jaw joint (TMJ) pain More serious but less common causes of headache include stroke, brain hemorrhage, brain tumor, meningitis, and encephalitis. Home care Follow these tips when taking care of yourself at home: Don t drive yourself home if you were given pain medicine for your headache. Instead, have someone else drive you home. Try to sleep when you get home. You should feel much better when you wake up. Apply heat to the back of your neck to ease a neck muscle spasm. Take care of a migraine headache by putting an ice pack on your forehead or at the base of your skull. If you have nausea or vomiting, eat a light diet until your headache eases. If you have a migraine headache, use sunglasses when in the daylight or around bright indoor lighting until your symptoms get better. Bright glaring light can make this type of headache worse. Follow-up care Follow up with your healthcare provider, or as advised. Talk with your provider if you have frequent headaches. He or she can help figure out a treatment plan. By knowing the earliest signs of headache, and starting treatment right away, you may be able to stop the pain yourself. When to seek medical advice Call your healthcare provider right away if any of these occur: Your head pain suddenly gets worse after sexual intercourse or strenuous activity Your head pain doesn t get better within 24 hours You aren t able to keep liquids down (repeated vomiting) Fever of 100.4 F (38 C) or higher, or as directed by your healthcare provider Stiff neck Extreme drowsiness, confusion, or fainting Dizziness or dizziness with spinning sensation (vertigo) Weakness in an arm or leg or one side of your face You have trouble talking or seeing 9219-1882 [employer]. [address] [place] [address]. All rights reserved. This information is not intended as a substitute for professional medical care. Always follow yourhealthcare professional's instructions. Follow Up Care 11/20/2022 10:47:06 With:KATHERINE MUNOZ MD Address: [address] [place] [phone] When:2-4 days [facility] 08-14-2023 Note Discharge Instructions Thank you for allowing [facility] to assist you with your healthcare needs. The following is importantdischarge information regarding your hospital visit. Diagnosis from Today's Visit Headache Headache - Recurrent What to Do Next Instructions from Your Care Team No qualifying data available. Post Acute Orders No qualifying data available. You Need to Schedule the Following Appointments Follow Up with KATHERINE MUNOZ MD When Within 2-4 days Where: [address] [place] [address] [phone] Allergies Contrast dye Flagyl Latex (Blisters, Rash) Naprosyn Seafood amoxicillin erythromycin iodine (Rash) penicillin Medications Please ask your primary doctor or pharmacist before taking any other medication not listed, including over the counter drugs, herbal medications, vitamins and or supplements as they may interact withyour home medications. What How Much When Why Instructions Last Dose Unchanged ARIPiprazole (ARIPiprazole 20 mg oral tablet) 1 tab(s) by mouth Once a day Unchanged baclofen (baclofen 10 mg oral tablet) 1 tab(s) by mouth Three (3) times a day Duration: 5 Days Unchanged carBAMazepine (carBAMazepine 200 mg oral tablet) 2 tab(s) by mouth Two (2) times a day Unchanged cefdinir (cefdinir 300 mg oral capsule) 1 cap by mouth Every 12 hours Pyelonephritis Duration: 7 Days Unchanged celecoxib (celecoxib 200 mg oral capsule) 1 cap by mouth Once a day Unchanged cyclobenzaprine (cyclobenzaprine 10 mg oral tablet) 1 tab(s) by mouth Three (3) times a day as needed for Muscle spasm Unchanged dicyclomine (Bentyl use dicyclomine ) 20 Milligram by mouth Four (4) times a day Duration: 7 Days Unchanged dicyclomine (Bentyl use dicyclomine ) 20 Milligram by mouth Four (4) times a day Abdominal pain Unchanged DULoxetine (DULoxetine 30 mg oral delayed release capsule) 2 cap by mouth Once a day Unchanged EPINEPHrine (EPINEPHrine 0.3 mg injectable kit) See instructions 0.3 mg Intramuscular Unchanged famotidine (famotidine 20 mg oral tablet) 1 tab(s) by mouth Once a day Unchanged gabapentin (gabapentin 600 mg oral tablet) 1 tab(s) by mouth Three (3) times a day Unchanged hydrOXYzine (hydrOXYzine pamoate 50 mg oral capsule) 1 cap by mouth Two (2) times a day Unchanged levETIRAcetam (levETIRAcetam 500 mg oral tablet) 1 tab(s) by mouth Two (2) times a day Unchanged montelukast (montelukast 10 mg oral tablet) 1 tab(s) by mouth Once a day Unchanged nitrofurantoin (nitrofurantoin macrocrystals-monohydrate 100 mg oral capsule) Unchanged omeprazole (omeprazole 40 mg oral delayed release capsule) 1 cap by mouth Once a day Unchanged pantoprazole (pantoprazole 40 mg oral enteric coated tablet) 1 tab(s) by mouth Once a day Unchanged phenazopyridine (phenazopyridine 100 mg oral tablet) 1 tab(s) by mouth Two (2) times a day Unchanged prazosin (prazosin 2 mg oral capsule) 1 cap by mouth Daily at bedtime Unchanged promethazine (promethazine 25 mg oral tablet) 1 tab(s) by mouth Three (3) times a day Unchanged simvastatin (simvastatin 20 mg oral tablet) 1 tab(s) by mouth Daily at bedtime Unchanged topiramate (topiramate 200 mg oral tablet) 1 tab(s) by mouth Once a day Unchanged traMADol (traMADol 50 mg oral tablet) 1 tab(s) by mouth Three (3) times a day Unchanged traZODone (traZODone 100 mg oral tablet) 3 tab(s) by mouth Daily at bedtime Please take this list to your next doctor s visit. Bring all medications you take, including over the counter medications, herbals and other supplements with you to your doctor s visit. Patients and families are reminded to discard old lists and to update any records with all medication providers or retail pharmacies. Education Materials Headache, Unspecified A number of things can cause headaches. The cause of your headache isn t clear. But it doesn t seemto be a sign of any serious illness. Headache affects almost everyone at some time. It is the most common reason people miss days from work or school. You could have a tension headache or a migraine headache. Stress can cause a tension headache. This can happen if you tense the muscles of your shoulders, neck, and scalp without knowing it. If this stress lasts long enough, you may develop a tension headache. It is not clear why migraines occur, but certain things called triggers can raise the risk of having a migraine attack. Migraine triggers may include emotional stress or depression, or by hormone changes during the menstrual cycle. Other triggers include control pills and other medicines, alcohol or caffeine, foods with tyramine (such as aged cheese, wine), eyestrain, weather changes, missed meals, and lack of sleep or oversleeping. Other causes of headache include: Viral illness with high fever Head injury with concussion Sinus, ear, or throat infection Dental pain and jaw joint (TMJ) pain More serious but less common causes of headache include stroke, brain hemorrhage, brain tumor, meningitis, and encephalitis. Home care Follow these tips when taking care of yourself at home: Don t drive yourself home if you were given pain medicine for your headache. Instead, have someone else drive you home. Try to sleep when you get home. You should feel much better when you wake up. Apply heat to the back of your neck to ease a neck muscle spasm. Take care of a migraine headache by putting an ice pack on your forehead or at the base of your skull. If you have nausea or vomiting, eat a light diet until your headache eases. If you have a migraine headache, use sunglasses when in the daylight or around bright indoor lighting until your symptoms get better. Bright glaring light can make this type of headache worse. Follow-up care Follow up with your healthcare provider, or as advised. Talk with your provider if you have frequent headaches. He or she can help figure out a treatment plan. By knowing the earliest signs of headache, and starting treatment right away, you may be able to stop the pain yourself. When to seek medical advice Call your healthcare provider right away if any of these occur: Your head pain suddenly gets worse after sexual intercourse or strenuous activity Your head pain doesn t get better within 24 hours You aren t able to keep liquids down (repeated vomiting) Fever of 100.4 F (38 C) or higher, or as directed by your healthcare provider Stiff neck Extreme drowsiness, confusion, or fainting Dizziness or dizziness with spinning sensation (vertigo) Weakness in an arm or leg or one side of your face You have trouble talking or seeing 5314-9010 [employer]. [address] [facility], [place] [address]. All rights reserved. This information is not intended as a substitute for professional medical care. Always follow yourhealthcare professional's instructions. Additional Information VACCINATE! IT SAVES LIVES! Members of the community who have not yet received the COVID-19 vaccine and would like to receive it can visit one of [facility] vaccine clinics. There are many vaccine clinic locations within the State. For locations and available times, please visit [email or web address]/. It is important to note that some COVID mobile vaccine clinics are held outdoors and may be canceled in rainy or stormy conditions. To learn more about pediatric vaccinations (ages 5-11), we invite you to visit the [employer] [facility] webpage. [email or web address] learn more about the COVID-19 vaccine, we invite you to visit the CDC website for a list of frequently asked questions. https://www.cdc.gov/coronavirus/2019-ncov/vaccines/faq.html [facility] Patient Portal Access Instructions: Stay connected with your healthcare team and access your personal medical information anytime with the [facility] Patient Portal. If you would like a full copy of your medical records please contact the [facility] Medical Records Department Sunday through Sunday between 8a.m. and 4:30p.m. Please follow the directions below to access the portal: 1.Access the email account you provided upon registration to the hospital.2.Look for an invitation email from [facility].3.Open the email and access the invitation link: Accept Invitation to [facility]4.Fill in the required white to create your account. Sign into [email or web address] with your username and password that you created in the above steps to stay up to date. You can then view a summary of results, a summary of your visits, and the ability to download your summaries to your computer or send the information securely to a physician. Remember that your healthcare information is confidential, so carefully consider who you will allow to register on the [facility] Patient Portal for access to your information. You can also access the [facility] Patient Portal on the [employer] johnny. Simply click on Health Records under [employer] and then click on the [employer] logo. HOW TO SAFELY DISPOSE OF PRESCRIPTION MEDICATIONS Please use one of the following methods to safely dispose of your unused medications. 1.Use a drug disposal kit: the drug disposal pouch allows you to safely discard your old and unuseddrugs. Ask your nurse to give you one when you are discharged.2.Visit a local take-back location: Many local pharmacies and police departments have programs that collect old and unwanted prescriptiondrugs. Call your local pharmacy or go to http://Mobilygen.Centrix/5Q8Qd7e to find one close to you.3.Make use of household items: Use cat litter or old coffee grounds to dispose medications if other options arenot available. Mix your drugs with these household products, seal them in an airtight container andthrow it into the garbage. Call [facility]: [phone] to be sure your drugs can be disposed of in this way. Some medicines may require a different approach.4.Never flush your medications down the toilet. IF YOU HAVE BEEN PRESCRIBED AN OPIOIDS FOR PAIN If you have been prescribed an opioid (such as hydrocodone, oxycodone or morphine), it is critical to understand the possible side effects and risks of opioid pain medications. Even when taken as directed, opioids can have several side effects including: Tolerance, meaning you might need to take more of a medication for the same pain relief. Nausea, vomiting and/or constipation. Sleepiness, dizziness, dry mouth, confusion, depression or itching. Physical dependence, meaning you have withdrawal symptoms when a medication is stopped ? this can develop within a few days. KNOW YOUR RESPONSIBILITIES It is important to know exactly how much and how often to take the opioid pain medications you are prescribed. Never take opioids in higher amounts or more often than prescribed. Do not combine opioids with alcohol or other drugs that cause drowsiness, such as benzodiazepines, also known as benzos,including diazepam and alprazolam, muscle relaxants or sleep aids. Never sell or share prescriptionopioids. This is illegal. Store opioids in a secure place and out of reach of others (including children, family, friends and visitors). The last page(s) of this document has been signed and retained as a CHART COPY Signatures Patient Education Materials Headache, Unspecified Medication Leaflets My discharge plan and instructions have been reviewed and explained to me and ICHRISTINA REBECCA M understand my current condition and have read and understand these discharge instructions. I have received a written copy of the plan/instructions. If I have questions, I am aware that I should contact my doctor. 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 Nausea and vomiting, lightheadedness, sensitivity to light (photophobia), and other visual disturbances are common migraine symptoms. The pain may last from a few hours to several days. It is not clear why migraines occur but certain factors called triggers can raise the risk of having a migraine attack. A migraine may be triggered by emotional stress or depression, or by hormone changes during the menstrual cycle. Other triggers include control pills, overuse of migraine medicines, alcohol or caffeine, foods with tyramine (such as aged cheese and wine), eyestrain, weather changes, missed meals, or too little or too much sleep. Home care Follow these tips when taking care of yourself at home: Don t drive yourself home if you were given pain medicine for your headache or are having visual symptoms. Instead, have someone else drive you home. Try to sleep when you get home. You should feel much better when you wake up. Cold can help ease migraine symptoms. Put an ice pack on your forehead or at the base of your skull. Put heat on the back of your neck to help ease any neck spasm. Drink only clear liquids or eat a light diet until your symptoms get better. This will help you avoid nausea and vomiting. How to prevent migraines Pay attention to what seems to trigger your headache. Try to avoid the triggers when you can. If you have frequent headaches, consider keeping a headache diary. In it, write down what you were doing,feeling, or eating in the hours before each headache. Show this to your healthcare provider to helpfind the cause of your headaches. If stress seems to be a trigger for your headaches, figure out what is causing stress in your life.Learn new ways to handle your stress. Ideas include regular exercise, biofeedback, self-hypnosis, yoga, and meditation. Talk with your healthcare provider to find out more information about managing stress. Many books and digital media are also available on this subject. Tyramine is a substance found in many foods. It can trigger a migraine in some people. These foods contain tyramine: Chocolate Yogurt All cheeses, but especially aged cheeses Smoked or pickled fish and meat, including hamilton, caviar, bologna, pepperoni, and salami Liver Avocados Bananas Figs Raisins Red wine Try staying away from these foods for 1 to 2 months to see if you have fewer headaches. How to treat future headaches Take time out at the first sign of a headache, if possible. Find a quiet, dark, comfortable place to sit or lie down. Let yourself relax or sleep. Put an ice pack on your forehead or on the area of greatest pain. A heating pad and massage may help if you are having a muscle spasm and tightness in your neck. If you have been prescribed a medicine to stop a migraine headache, use this at the first warning sign of the headache for best results. First signs may be an aura or pain. If you need to take medicine often for your migraine, talk with your healthcare provider about other ways to prevent your headaches. Follow-up care Follow up with your healthcare provider, or as advised. Talk with your provider if you have frequent headaches. He or she can figure out a treatment plan. Ask if you can have medicine to take at homethe next time you get a bad headache. This may keep you from having to visit the emergency department in the future. You may need to see a headache specialist (neurologist) if you continue to have headaches. When to seek medical advice Call your healthcare provider right away if any of these occur: Your head pain gets worse, or doesn t get better within 24 hours You can t keep liquids down (repeated vomiting) Pain in your sinuses, ears, or throat Fever of 100.4 F (38 C) or higher, or as directed by your healthcare provider Stiff neck Extreme drowsiness, confusion, or fainting Dizziness, or dizziness with spinning sensation (vertigo) Weakness in an arm or leg, or on one side of your face Difficulty talking or seeing [id number] [employer]. [address] [place] [address]. All rights reserved. This information is not intended as a substitute for professional medical care. Always follow yourhealthcare professional's instructions. Follow Up Care 09/11/2022 15:13:50 With:KATHERINE MUNOZ MD Address: [address] [place] [address] [place] [address]- [phone] When:2-4 days [facility] 06-05-2023 Note Discharge Instructions Thank you for allowing [facility] to assist you with your healthcare needs. The following is importantdischarge information regarding your hospital visit. Diagnosis from Today's Visit Headache - Recurrent What to Do Next Instructions from Your Care Team Follow-up with your PCP in the next 2 to 4 days. Please return to the emergency department if you start experiencing another migraine or worsening headache. Please return to the emergency department if you start experiencing changes in your vision or changes in your hearing. No qualifying data available. Post Acute Orders No qualifying data available. You Need to Schedule the Following Appointments Follow Up with KATHERINE MUNOZ MD When Within 2-4 days Where: [facility] [place] [address] [phone] Allergies Contrast dye Flagyl Latex (Blisters, Rash) Naprosyn Seafood amoxicillin erythromycin iodine (Rash) penicillin Medications Please ask your primary doctor or pharmacist before taking any other medication not listed, including over the counter drugs, herbal medications, vitamins and or supplements as they may interact withyour home medications. What How Much When Why Instructions Last Dose Unchanged ARIPiprazole (ARIPiprazole 20 mg oral tablet) 1 tab(s) by mouth Once a day Unchanged baclofen (baclofen 10 mg oral tablet) 1 tab(s) by mouth Three (3) times a day Duration: 5 Days Unchanged carBAMazepine (carBAMazepine 200 mg oral tablet) 2 tab(s) by mouth Two (2) times a day Unchanged cefdinir (cefdinir 300 mg oral capsule) 1 cap by mouth Every 12 hours Pyelonephritis Duration: 7 Days Unchanged celecoxib (celecoxib 200 mg oral capsule) 1 cap by mouth Once a day Unchanged cyclobenzaprine (cyclobenzaprine 10 mg oral tablet) 1 tab(s) by mouth Three (3) times a day as needed for Muscle spasm Unchanged dicyclomine (Bentyl use dicyclomine ) 20 Milligram by mouth Four (4) times a day Duration: 7 Days Unchanged dicyclomine (Bentyl use dicyclomine ) 20 Milligram by mouth Four (4) times a day Abdominal pain Unchanged DULoxetine (DULoxetine 30 mg oral delayed release capsule) 2 cap by mouth Once a day Unchanged EPINEPHrine (EPINEPHrine 0.3 mg injectable kit) See instructions 0.3 mg Intramuscular Unchanged famotidine (famotidine 20 mg oral tablet) 1 tab(s) by mouth Once a day Unchanged gabapentin (gabapentin 600 mg oral tablet) 1 tab(s) by mouth Three (3) times a day Unchanged hydrOXYzine (hydrOXYzine pamoate 50 mg oral capsule) 1 cap by mouth Two (2) times a day Unchanged levETIRAcetam (levETIRAcetam 500 mg oral tablet) 1 tab(s) by mouth Two (2) times a day Unchanged montelukast (montelukast 10 mg oral tablet) 1 tab(s) by mouth Once a day Unchanged nitrofurantoin (nitrofurantoin macrocrystals-monohydrate 100 mg oral capsule) Unchanged omeprazole (omeprazole 40 mg oral delayed release capsule) 1 cap by mouth Once a day Unchanged pantoprazole (pantoprazole 40 mg oral enteric coated tablet) 1 tab(s) by mouth Once a day Unchanged phenazopyridine (phenazopyridine 100 mg oral tablet) 1 tab(s) by mouth Two (2) times a day Unchanged prazosin (prazosin 2 mg oral capsule) 1 cap by mouth Daily at bedtime Unchanged promethazine (promethazine 25 mg oral tablet) 1 tab(s) by mouth Three (3) times a day Unchanged simvastatin (simvastatin 20 mg oral tablet) 1 tab(s) by mouth Daily at bedtime Unchanged topiramate (topiramate 200 mg oral tablet) 1 tab(s) by mouth Once a day Unchanged traMADol (traMADol 50 mg oral tablet) 1 tab(s) by mouth Three (3) times a day Unchanged traZODone (traZODone 100 mg oral tablet) 3 tab(s) by mouth Daily at bedtime Please take this list to your next doctor s visit. Bring all medications you take, including over the counter medications, herbals and other supplements with you to your doctor s visit. Patients and families are reminded to discard old lists and to update any records with all medication providers or retail pharmacies. Education Materials Migraine Headache This often severe type of headache is different from other types of headaches in that symptoms other than pain occur with the headache. Nausea and vomiting, lightheadedness, sensitivity to light (photophobia), and other visual disturbances are common migraine symptoms. The pain may last from a few hours to several days. It is not clear why migraines occur but certain factors called triggers can raise the risk of having a migraine attack. A migraine may be triggered by emotional stress or depression, or by hormone changes during the menstrual cycle. Other triggers include control pills, overuse of migraine medicines, alcohol or caffeine, foods with tyramine (such as aged cheese and wine), eyestrain, weather changes, missed meals, or too little or too much sleep. Home care Follow these tips when taking care of yourself at home: Don t drive yourself home if you were given pain medicine for your headache or are having visual symptoms. Instead, have someone else drive you home. Try to sleep when you get home. You should feel much better when you wake up. Cold can help ease migraine symptoms. Put an ice pack on your forehead or at the base of your skull. Put heat on the back of your neck to help ease any neck spasm. Drink only clear liquids or eat a light diet until your symptoms get better. This will help you avoid nausea and vomiting. How to prevent migraines Pay attention to what seems to trigger your headache. Try to avoid the triggers when you can. If you have frequent headaches, consider keeping a headache diary. In it, write down what you were doing,feeling, or eating in the hours before each headache. Show this to your healthcare provider to helpfind the cause of your headaches. If stress seems to be a trigger for your headaches, figure out what is causing stress in your life.Learn new ways to handle your stress. Ideas include regular exercise, biofeedback, self-hypnosis, yoga, and meditation. Talk with your healthcare provider to find out more information about managing stress. Many books and digital media are also available on this subject. Tyramine is a substance found in many foods. It can trigger a migraine in some people. These foods contain tyramine: Chocolate Yogurt All cheeses, but especially aged cheeses Smoked or pickled fish and meat, including hamilton, caviar, bologna, pepperoni, and salami Liver Avocados Bananas Figs Raisins Red wine Try staying away from these foods for 1 to 2 months to see if you have fewer headaches. How to treat future headaches Take time out at the first sign of a headache, if possible. Find a quiet, dark, comfortable place to sit or lie down. Let yourself relax or sleep. Put an ice pack on your forehead or on the area of greatest pain. A heating pad and massage may help if you are having a muscle spasm and tightness in your neck. If you have been prescribed a medicine to stop a migraine headache, use this at the first warning sign of the headache for best results. First signs may be an aura or pain. If you need to take medicine often for your migraine, talk with your healthcare provider about other ways to prevent your headaches. Follow-up care Follow up with your healthcare provider, or as advised. Talk with your provider if you have frequent headaches. He or she can figure out a treatment plan. Ask if you can have medicine to take at homethe next time you get a bad headache. This may keep you from having to visit the emergency department in the future. You may need to see a headache specialist (neurologist) if you continue to have headaches. When to seek medical advice Call your healthcare provider right away if any of these occur: Your head pain gets worse, or doesn t get better within 24 hours You can t keep liquids down (repeated vomiting) Pain in your sinuses, ears, or throat Fever of 100.4 F (38 C) or higher, or as directed by your healthcare provider Stiff neck Extreme drowsiness, confusion, or fainting Dizziness, or dizziness with spinning sensation (vertigo) Weakness in an arm or leg, or on one side of your face Difficulty talking or seeing [id number] [employer]. [address] [place] [address], [place] [address]. All rights reserved. This information is not intended as a substitute for professional medical care. Always follow yourhealthcare professional's instructions. Additional Information VACCINATE! IT SAVES LIVES! Members of the community who have not yet received the COVID-19 vaccine and would like to receive it can visit one of [facility] vaccine clinics. There are many vaccine clinic locations within the [facility]. For locations and available times, please visit [email or web address]/. It is important to note that some COVID mobile vaccine clinics are held outdoors and may be canceled in rainy or stormy conditions. To learn more about pediatric vaccinations (ages 5-11), we invite you to visit the [employer] webpage. https://www.cicaydas.org/pages/3047-Pcrub-Jefzbriojpu-Wbazgyoywd-Tvvxm-[email or web address] stions.htmlTo learn more about the COVID-19 vaccine, we invite you to visit the CDC website for a list of frequently asked questions. https://www.cdc.gov/coronavirus/2019-ncov/vaccines/faq.html [facility] Patient Portal Access Instructions: Stay connected with your healthcare team and access your personal medical information anytime with the [facility] Patient Portal. If you would like a full copy of your medical records please contact the [facility] Medical Records Department Sunday through Sunday between 8a.m. and 4:30p.m. Please follow the directions below to access the portal: 1.Access the email account you provided upon registration to the [facility].2.Look for an invitation email from [facility].3.Open the email and access the invitation link: Accept Invitation to [facility].Fill in the required white to create your account. Sign into [email or web address] with your username and password that you created in the above steps to stay up to date. You can then view a summary of results, a summary of your visits, and the ability to download your summaries to your computer or send the information securely to a physician. Remember that your healthcare information is confidential, so carefully consider who you will allow to register on the [facility] Patient Portal for access to your information. You can also access the [facility] Patient Portal on the [employer]. Simply click on Health Records under HealthData and then click on the [employer] logo. HOW TO SAFELY DISPOSE OF PRESCRIPTION MEDICATIONS Please use one of the following methods to safely dispose of your unused medications. 1.Use a drug disposal kit: the drug disposal pouch allows you to safely discard your old and unuseddrugs. Ask your nurse to give you one when you are discharged.2.Visit a local take-back location: Many local pharmacies and police departments have programs that collect old and unwanted prescriptiondrugs. Call your local pharmacy or go to http://Mobilygen.Centrix/4S9Se3y to find one close to you.3.Make use of household items: Use cat litter or old coffee grounds to dispose medications if other options arenot available. Mix your drugs with these household products, seal them in an airtight container andthrow it into the garbage. Call [facility]: [phone] to be sure your drugs can be disposed of in this way. Some medicines may require a different approach.4.Never flush your medications down the toilet. IF YOU HAVE BEEN PRESCRIBED AN OPIOIDS FOR PAIN If you have been prescribed an opioid (such as hydrocodone, oxycodone or morphine), it is critical to understand the possible side effects and risks of opioid pain medications. Even when taken as directed, opioids can have several side effects including: Tolerance, meaning you might need to take more of a medication for the same pain relief. Nausea, vomiting and/or constipation. Sleepiness, dizziness, dry mouth, confusion, depression or itching. Physical dependence, meaning you have withdrawal symptoms when a medication is stopped ? this can develop within a few days. KNOW YOUR RESPONSIBILITIES It is important to know exactly how much and how often to take the opioid pain medications you are prescribed. Never take opioids in higher amounts or more often than prescribed. Do not combine opioids with alcohol or other drugs that cause drowsiness, such as benzodiazepines, also known as benzos,including diazepam and alprazolam, muscle relaxants or sleep aids. Never sell or share prescriptionopioids. This is illegal. Store opioids in a secure place and out of reach of others (including children, family, friends and visitors). The last page(s) of this document has been signed and retained as a CHART COPY Signatures Patient Education Materials Headache, Migraine, Classic Medication Leaflets My discharge plan and instructions have been reviewed and explained to me and I,CRYS FRANKS understand my current condition and have read and understand these discharge instructions. I have received a written copy of the plan/instructions. If I have questions, I am aware that I should contact my doctor. 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 The following is importantdischarge information regarding your hospital visit. Diagnosis from Today's Visit Headache - Recurrent What to Do Next Instructions from Your Care Team Follow-up with your PCP in the next 2 to 4 days. Please return to the emergency department if you start experiencing another migraine or worsening headache. Please return to the emergency department if you start experiencing changes in your vision or changes in your hearing. No qualifying data available. Post Acute Orders No qualifying data available. You Need to Schedule the Following Appointments Follow Up with KATHERINE MUNOZ MD When Within 2-4 days Where: [address] [place] [phone] Allergies Contrast dye Flagyl Latex (Blisters, Rash) Naprosyn Seafood amoxicillin erythromycin iodine (Rash) penicillin Medications Please ask your primary doctor or pharmacist before taking any other medication not listed, including over the counter drugs, herbal medications, vitamins and or supplements as they may interact withyour home medications. What How Much When Why Instructions Last Dose Unchanged ARIPiprazole (ARIPiprazole 20 mg oral tablet) 1 tab(s) by mouth Once a day Unchanged baclofen (baclofen 10 mg oral tablet) 1 tab(s) by mouth Three (3) times a day Duration: 5 Days Unchanged carBAMazepine (carBAMazepine 200 mg oral tablet) 2 tab(s) by mouth Two (2) times a day Unchanged cefdinir (cefdinir 300 mg oral capsule) 1 cap by mouth Every 12 hours Pyelonephritis Duration: 7 Days Unchanged celecoxib (celecoxib 200 mg oral capsule) 1 cap by mouth Once a day Unchanged cyclobenzaprine (cyclobenzaprine 10 mg oral tablet) 1 tab(s) by mouth Three (3) times a day as needed for Muscle spasm Unchanged dicyclomine (Bentyl use dicyclomine ) 20 Milligram by mouth Four (4) times a day Duration: 7 Days Unchanged dicyclomine (Bentyl use dicyclomine ) 20 Milligram by mouth Four (4) times a day Abdominal pain Unchanged DULoxetine (DULoxetine 30 mg oral delayed release capsule) 2 cap by mouth Once a day Unchanged EPINEPHrine (EPINEPHrine 0.3 mg injectable kit) See instructions 0.3 mg Intramuscular Unchanged famotidine (famotidine 20 mg oral tablet) 1 tab(s) by mouth Once a day Unchanged gabapentin (gabapentin 600 mg oral tablet) 1 tab(s) by mouth Three (3) times a day Unchanged hydrOXYzine (hydrOXYzine pamoate 50 mg oral capsule) 1 cap by mouth Two (2) times a day Unchanged levETIRAcetam (levETIRAcetam 500 mg oral tablet) 1 tab(s) by mouth Two (2) times a day Unchanged montelukast (montelukast 10 mg oral tablet) 1 tab(s) by mouth Once a day Unchanged nitrofurantoin (nitrofurantoin macrocrystals-monohydrate 100 mg oral capsule) Unchanged omeprazole (omeprazole 40 mg oral delayed release capsule) 1 cap by mouth Once a day Unchanged pantoprazole (pantoprazole 40 mg oral enteric coated tablet) 1 tab(s) by mouth Once a day Unchanged phenazopyridine (phenazopyridine 100 mg oral tablet) 1 tab(s) by mouth Two (2) times a day Unchanged prazosin (prazosin 2 mg oral capsule) 1 cap by mouth Daily at bedtime Unchanged promethazine (promethazine 25 mg oral tablet) 1 tab(s) by mouth Three (3) times a day Unchanged simvastatin (simvastatin 20 mg oral tablet) 1 tab(s) by mouth Daily at bedtime Unchanged topiramate (topiramate 200 mg oral tablet) 1 tab(s) by mouth Once a day Unchanged traMADol (traMADol 50 mg oral tablet) 1 tab(s) by mouth Three (3) times a day Unchanged traZODone (traZODone 100 mg oral tablet) 3 tab(s) by mouth Daily at bedtime Please take this list to your next doctor s visit. Bring all medications you take, including over the counter medications, herbals and other supplements with you to your doctor s visit. Patients and families are reminded to discard old lists and to update any records with all medication providers or retail pharmacies. Education Materials Migraine Headache This often severe type of headache is different from other types of headaches in that symptoms other than pain occur with the headache. Nausea and vomiting, lightheadedness, sensitivity to light (photophobia), and other visual disturbances are common migraine symptoms. The pain may last from a few hours to several days. It is not clear why migraines occur but certain factors called triggers can raise the risk of having a migraine attack. A migraine may be triggered by emotional stress or depression, or by hormone changes during the menstrual cycle. Other triggers include control pills, overuse of migraine medicines, alcohol or caffeine, foods with tyramine (such as aged cheese and wine), eyestrain, weather changes, missed meals, or too little or too much sleep. Home care Follow these tips when taking care of yourself at home: Don t drive yourself home if you were given pain medicine for your headache or are having visual symptoms. Instead, have someone else drive you home. Try to sleep when you get home. You should feel much better when you wake up. Cold can help ease migraine symptoms. Put an ice pack on your forehead or at the base of your skull. Put heat on the back of your neck to help ease any neck spasm. Drink only clear liquids or eat a light diet until your symptoms get better. This will help you avoid nausea and vomiting. How to prevent migraines Pay attention to what seems to trigger your headache. Try to avoid the triggers when you can. If you have frequent headaches, consider keeping a headache diary. In it, write down what you were doing,feeling, or eating in the hours before each headache. Show this to your healthcare provider to helpfind the cause of your headaches. If stress seems to be a trigger for your headaches, figure out what is causing stress in your life.Learn new ways to handle your stress. Ideas include regular exercise, biofeedback, self-hypnosis, yoga, and meditation. Talk with your healthcare provider to find out more information about managing stress. Many books and digital media are also available on this subject. Tyramine is a substance found in many foods. It can trigger a migraine in some people. These foods contain tyramine: Chocolate Yogurt All cheeses, but especially aged cheeses Smoked or pickled fish and meat, including hamilton, caviar, bologna, pepperoni, and salami Liver Avocados Bananas Figs Raisins Red wine Try staying away from these foods for 1 to 2 months to see if you have fewer headaches. How to treat future headaches Take time out at the first sign of a headache, if possible. Find a quiet, dark, comfortable place to sit or lie down. Let yourself relax or sleep. Put an ice pack on your forehead or on the area of greatest pain. A heating pad and massage may help if you are having a muscle spasm and tightness in your neck. If you have been prescribed a medicine to stop a migraine headache, use this at the first warning sign of the headache for best results. First signs may be an aura or pain. If you need to take medicine often for your migraine, talk with your healthcare provider about other ways to prevent your headaches. Follow-up care Follow up with your healthcare provider, or as advised. Talk with your provider if you have frequent headaches. He or she can figure out a treatment plan. Ask if you can have medicine to take at homethe next time you get a bad headache. This may keep you from having to visit the emergency department in the future. You may need to see a headache specialist (neurologist) if you continue to have headaches. When to seek medical advice Call your healthcare provider right away if any of these occur: Your head pain gets worse, or doesn t get better within 24 hours You can t keep liquids down (repeated vomiting) Pain in your sinuses, ears, or throat Fever of 100.4 F (38 C) or higher, or as directed by your healthcare provider Stiff neck Extreme drowsiness, confusion, or fainting Dizziness, or dizziness with spinning sensation (vertigo) Weakness in an arm or leg, or on one side of your face Difficulty talking or seeing [id number] [employer]. [address] [place] [address], [place] [address]. All rights reserved. This information is not intended as a substitute for professional medical care. Always follow yourhealthcare professional's instructions. Additional Information VACCINATE! IT SAVES LIVES! Members of the community who have not yet received the COVID-19 vaccine and would like to receive it can visit one of [facility] vaccine clinics. There are many vaccine clinic locations within the [facility]. For locations and available times, please visit www.[email or web address]/. It is important to note that some COVID mobile vaccine clinics are held outdoors and may be canceled in rainy or stormy conditions. To learn more about pediatric vaccinations (ages 5-11), we invite you to visit the [employer] [facility] webpage. https://www.[employer]verse [employer]ildrens.org/pages/6177-Sovaf-Uugvmqglcpd-Zhgmzermuy-Yfvsk-Kuh stions.htmlTo learn more about the COVID-19 vaccine, we invite you to visit the CDC website for a list of frequently asked questions. https://www.cdc.gov/coronavirus/2019-ncov/vaccines/faq.html [facility] Patient Portal Access Instructions: Stay connected with your healthcare team and access your personal medical information anytime with the [facility] Patient Portal. If you would like a full copy of your medical records please contact the [facility] Medical Records Department Sunday through Sunday between 8a.m. and 4:30p.m. Please follow the directions below to access the portal: 1.Access the email account you provided upon registration to the hospital.2.Look for an invitation email from [facility].3.Open the email and access the invitation link: Accept Invitation to [facility]4.Fill in the required white to create your account. Sign into [email or web address] with your username and password that you created in the above steps to stay up to date. You can then view a summary of results, a summary of your visits, and the ability to download your summaries to your computer or send the information securely to a physician. Remember that your healthcare information is confidential, so carefully consider who you will allow to register on the [facility] Patient Portal for access to your information. You can also access the [facility] Patient Portal on the [employer] johnny. Simply click on Health Records under [employer] and then click on the [employer] logo. HOW TO SAFELY DISPOSE OF PRESCRIPTION MEDICATIONS Please use one of the following methods to safely dispose of your unused medications. 1.Use a drug disposal kit: the drug disposal pouch allows you to safely discard your old and unuseddrugs. Ask your nurse to give you one when you are discharged.2.Visit a local take-back location: Many local pharmacies and police departments have programs that collect old and unwanted prescriptiondrugs. Call your local pharmacy or go to http://Mobilygen.Centrix/5M1Mp7a to find one close to you.3.Make use of household items: Use cat litter or old coffee grounds to dispose medications if other options arenot available. Mix your drugs with these household products, seal them in an airtight container andthrow it into the garbage. Call [facility]: [phone] to be sure your drugs can be disposed of in this way. Some medicines may require a different approach.4.Never flush your medications down the toilet. IF YOU HAVE BEEN PRESCRIBED AN OPIOIDS FOR PAIN If you have been prescribed an opioid (such as hydrocodone, oxycodone or morphine), it is critical to understand the possible side effects and risks of opioid pain medications. Even when taken as directed, opioids can have several side effects including: Tolerance, meaning you might need to take more of a medication for the same pain relief. Nausea, vomiting and/or constipation. Sleepiness, dizziness, dry mouth, confusion, depression or itching. Physical dependence, meaning you have withdrawal symptoms when a medication is stopped ? this can develop within a few days. KNOW YOUR RESPONSIBILITIES It is important to know exactly how much and how often to take the opioid pain medications you are prescribed. Never take opioids in higher amounts or more often than prescribed. Do not combine opioids with alcohol or other drugs that cause drowsiness, such as benzodiazepines, also known as benzos,including diazepam and alprazolam, muscle relaxants or sleep aids. Never sell or share prescriptionopioids. This is illegal. Store opioids in a secure place and out of reach of others (including children, family, friends and visitors). The last page(s) of this document has been signed and retained as a CHART COPY Signatures Patient Education Materials Headache, Migraine, Classic Medication Leaflets My discharge plan and instructions have been reviewed and explained to me and I,CRYS FRANKS understand my current condition and have read and understand these discharge instructions. I have received a written copy of the plan/instructions. If I have questions, I am aware that I should contact my doctor. 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: Relationship to Patient: Witness Name/Signature: Date/Time: [facility]06-01-2023 Miscellaneous Notes* Telephone Encounter - May Luciano APRN.CNP - 09/07/2022 3:51 PM EDT Please assist in scheduling a VV or OV for a refill May Luciano APRN.JANETH * Telephone Encounter - Leydi Florian LPN - 09/07/2022 3:43 PM EDT [facility] Telephone Medication Refill Request Name/dose: none baclofen (LIORESAL) 10 mg tablet Amount dispensed monthly: 90 Date last filled: 02/14/22 Date last seen in office: 04/13/2022 Provider: Daniella Mars Next scheduled visit: none Pharmacy: [facility] - [address] [place] [address] - [address] - [phone] Please advise Leydi Florian LPN [facility] Miscellaneous Notes* Telephone Encounter - Julisa Jimenez LPN - 08/03/2022 12:32 PM EDT Pharmacy requesting the following refill. Requested Prescriptions Pending Prescriptions Disp Refills hydrOXYchloroQUINE (PLAQUENIL) 200 mg tablet [Pharmacy Med Name: Hydroxychloroquine Sulfate 200MG TABS] 56 tablet 2 Sig: TAKE 1 TABLET BY MOUTH TWICE A DAY Patient last appointment: 11/03/2021 Next Appointment: Visit date not found Patient Phone numbers: [phone] (home) Request is for script(s) to be escript to pharmacy. [facility] [address] [place] [address] - [address] - [phone] Julisa Jimenez LPN [facility] Hospital Discharge instructions Patient Education 08/01/2022 18:10:57 HEADACHE, Migraine (Classical) Migraine Headache Migraine headaches are caused by changes in blood flow to the brain. This causes throbbing or constant pain on one or both sides of your head. The pain may last from a few hours to several days. You usually will have nausea, vomiting, sensitivity to light and sound, and blurred vision. A migraine may be triggered by emotional stress or depression, or by hormone changes during the menstrual cycle.Other triggers include control pills, overuse of migraine medicines, alcohol or caffeine, foods with tyramine, eye strain, weather changes, missed meals, or too little or too much sleep. Home care Follow these tips when taking care of yourself at home: Don t drive yourself home if you were given pain medicine for your headache. Instead, have someone else drive you home. Try to sleep when you get home. You should feel much better when you wake up. Cold can help ease migraine symptoms. Put an ice pack on your forehead or at the base of your skull. Put heat on the back of your neck to help ease any neck spasm. Drink only clear liquids or eat a light diet until your symptoms get better. This will help you avoid nausea and vomiting. How to prevent migraines Pay attention to what seems to trigger your headache. Try to avoid the triggers when you can. If you have frequent headaches, consider keeping a headache diary. In it, write down what you were doing,feeling, or eating in the hours before each headache. Show this to your health care provider to help find the cause of your headaches. If stress seems to be a trigger for your headaches, figure out what is causing stress in your life.Learn new ways to handle your stress. Ideas include regular exercise, biofeedback, self-hypnosis, and meditation. Talk with your health care provider to find out more information about managing stress. Many books and digital media are also available on this subject. Tyramine is a substance found in many foods. It can trigger a migraine in some people. These foods contain tyramine: Chocolate Yogurt All cheeses but cottage cheese and cream cheese Smoked or pickled fish and meat, including hamilton, caviar, bologna, pepperoni, and salami Liver Avocados Bananas Figs Raisins Red wine Try staying away from these foods for 1 to 2 months to see if you have fewer headaches. How to treat future headaches Take time out at the first sign of a headache, if possible. Find a quiet, dark, comfortable place to sit or lie down. Let yourself relax or sleep. Put an ice pack on your forehead or on the area of greatest pain. A heating pad and massage may help if you are having a muscle spasm and tightness in your neck. If you have been prescribed a medicine to stop a migraine headache, use this at the first warning sign of the headache for best results. First signs may be an aura or pain. If you need to take medicine often for your migraine, talk with your health care provider about other ways to prevent your headaches. Follow-up care Follow up with your health care provider if your headache doesn t get better within the next 24 hours. Talk with your provider if you have frequent headaches. He or she can figure out a treatment plan. Ask if you can have medicine to take at home the next time you get a bad headache. This may keep you from having to visit the emergency department in the future. You may need to see a headache specialist (neurologist) if you continue to have headaches. When to seek medical advice Call your health care provider right away if any of these occur: Your head pain gets worse, or doesn t get better within 24 hours You can t keep liquids down (repeated vomiting) Pain in your sinuses, ears, or throat Fever of 100.4 F (38 C) or higher, or as directed by your health care provider Stiff neck Extreme drowsiness, confusion, or fainting Dizziness, or dizziness with spinning sensation (vertigo) Weakness in an arm or leg, or on one side of your face Difficulty talking or seeing [id number] [employer] [address] [place] [address]. All rights reserved. This information is not intended as a substitute for professional medical care. Always follow yourhealthcare professional's instructions. Follow Up Care 08/01/2022 15:26:16 With:KATHERINE MUNOZ MD Address: [address] [place] [address] [place] [address] [phone] When:2-4 days [facility] 04-25-2023 Note Discharge Instructions Thank you for allowing [facility] to assist you with your healthcare needs. The following is importantdischarge information regarding your hospital visit. Diagnosis from Today's Visit Migraine aura without headache Migraine What to Do Next Instructions from Your Care Team No qualifying data available. Post Acute Orders No qualifying data available. You Need to Schedule the Following Appointments Follow Up with KATHERINE MUNOZ MD When Within 2-4 days Where: [facility] [place] [address] [phone] Allergies Contrast dye Flagyl Latex (Blisters, Rash) Naprosyn Seafood amoxicillin erythromycin iodine (Rash) penicillin Medications Please ask your primary doctor or pharmacist before taking any other medication not listed, including over the counter drugs, herbal medications, vitamins and or supplements as they may interact withyour home medications. What How Much When Why Instructions Last Dose Unchanged ARIPiprazole (ARIPiprazole 20 mg oral tablet) 1 tab(s) by mouth Once a day Unchanged baclofen (baclofen 10 mg oral tablet) 1 tab(s) by mouth Three (3) times a day Duration: 5 Days Unchanged carBAMazepine (carBAMazepine 200 mg oral tablet) 2 tab(s) by mouth Two (2) times a day Unchanged cefdinir (cefdinir 300 mg oral capsule) 1 cap by mouth Every 12 hours Pyelonephritis Duration: 7 Days Unchanged celecoxib (celecoxib 200 mg oral capsule) 1 cap by mouth Once a day Unchanged cyclobenzaprine (cyclobenzaprine 10 mg oral tablet) 1 tab(s) by mouth Three (3) times a day as needed for Muscle spasm Unchanged dicyclomine (Bentyl use dicyclomine ) 20 Milligram by mouth Four (4) times a day Duration: 7 Days Unchanged dicyclomine (Bentyl use dicyclomine ) 20 Milligram by mouth Four (4) times a day Abdominal pain Unchanged DULoxetine (DULoxetine 30 mg oral delayed release capsule) 2 cap by mouth Once a day Unchanged EPINEPHrine (EPINEPHrine 0.3 mg injectable kit) See instructions 0.3 mg Intramuscular Unchanged famotidine (famotidine 20 mg oral tablet) 1 tab(s) by mouth Once a day Unchanged gabapentin (gabapentin 600 mg oral tablet) 1 tab(s) by mouth Three (3) times a day Unchanged hydrOXYzine (hydrOXYzine pamoate 50 mg oral capsule) 1 cap by mouth Two (2) times a day Unchanged levETIRAcetam (levETIRAcetam 500 mg oral tablet) 1 tab(s) by mouth Two (2) times a day Unchanged montelukast (montelukast 10 mg oral tablet) 1 tab(s) by mouth Once a day Unchanged nitrofurantoin (nitrofurantoin macrocrystals-monohydrate 100 mg oral capsule) Unchanged omeprazole (omeprazole 40 mg oral delayed release capsule) 1 cap by mouth Once a day Unchanged pantoprazole (pantoprazole 40 mg oral enteric coated tablet) 1 tab(s) by mouth Once a day Unchanged phenazopyridine (phenazopyridine 100 mg oral tablet) 1 tab(s) by mouth Two (2) times a day Unchanged prazosin (prazosin 2 mg oral capsule) 1 cap by mouth Daily at bedtime Unchanged promethazine (promethazine 25 mg oral tablet) 1 tab(s) by mouth Three (3) times a day Unchanged simvastatin (simvastatin 20 mg oral tablet) 1 tab(s) by mouth Daily at bedtime Unchanged topiramate (topiramate 200 mg oral tablet) 1 tab(s) by mouth Once a day Unchanged traMADol (traMADol 50 mg oral tablet) 1 tab(s) by mouth Three (3) times a day Unchanged traZODone (traZODone 100 mg oral tablet) 3 tab(s) by mouth Daily at bedtime Please take this list to your next doctor s visit. Bring all medications you take, including over the counter medications, herbals and other supplements with you to your doctor s visit. Patients and families are reminded to discard old lists and to update any records with all medication providers or retail pharmacies. Education Materials Migraine Headache Migraine headaches are caused by changes in blood flow to the brain. This causes throbbing or constant pain on one or both sides of your head. The pain may last from a few hours to several days. You usually will have nausea, vomiting, sensitivity to light and sound, and blurred vision. A migraine may be triggered by emotional stress or depression, or by hormone changes during the menstrual cycle.Other triggers include control pills, overuse of migraine medicines, alcohol or caffeine, foods with tyramine, eye strain, weather changes, missed meals, or too little or too much sleep. Home care Follow these tips when taking care of yourself at home: Don t drive yourself home if you were given pain medicine for your headache. Instead, have someone else drive you home. Try to sleep when you get home. You should feel much better when you wake up. Cold can help ease migraine symptoms. Put an ice pack on your forehead or at the base of your skull. Put heat on the back of your neck to help ease any neck spasm. Drink only clear liquids or eat a light diet until your symptoms get better. This will help you avoid nausea and vomiting. How to prevent migraines Pay attention to what seems to trigger your headache. Try to avoid the triggers when you can. If you have frequent headaches, consider keeping a headache diary. In it, write down what you were doing,feeling, or eating in the hours before each headache. Show this to your health care provider to help find the cause of your headaches. If stress seems to be a trigger for your headaches, figure out what is causing stress in your life.Learn new ways to handle your stress. Ideas include regular exercise, biofeedback, self-hypnosis, and meditation. Talk with your health care provider to find out more information about managing stress. Many books and digital media are also available on this subject. Tyramine is a substance found in many foods. It can trigger a migraine in some people. These foods contain tyramine: Chocolate Yogurt All cheeses but cottage cheese and cream cheese Smoked or pickled fish and meat, including hamilton, caviar, bologna, pepperoni, and salami Liver Avocados Bananas Figs Raisins Red wine Try staying away from these foods for 1 to 2 months to see if you have fewer headaches. How to treat future headaches Take time out at the first sign of a headache, if possible. Find a quiet, dark, comfortable place to sit or lie down. Let yourself relax or sleep. Put an ice pack on your forehead or on the area of greatest pain. A heating pad and massage may help if you are having a muscle spasm and tightness in your neck. If you have been prescribed a medicine to stop a migraine headache, use this at the first warning sign of the headache for best results. First signs may be an aura or pain. If you need to take medicine often for your migraine, talk with your health care provider about other ways to prevent your headaches. Follow-up care Follow up with your health care provider if your headache doesn t get better within the next 24 hours. Talk with your provider if you have frequent headaches. He or she can figure out a treatment plan. Ask if you can have medicine to take at home the next time you get a bad headache. This may keep you from having to visit the emergency department in the future. You may need to see a headache specialist (neurologist) if you continue to have headaches. When to seek medical advice Call your health care provider right away if any of these occur: Your head pain gets worse, or doesn t get better within 24 hours You can t keep liquids down (repeated vomiting) Pain in your sinuses, ears, or throat Fever of 100.4 F (38 C) or higher, or as directed by your health care provider Stiff neck Extreme drowsiness, confusion, or fainting Dizziness, or dizziness with spinning sensation (vertigo) Weakness in an arm or leg, or on one side of your face Difficulty talking or seeing [id number] [employer]. [address] [place] [address], [place] [address]. All rights reserved. This information is not intended as a substitute for professional medical care. Always follow yourhealthcare professional's instructions. Additional Information VACCINATE! IT SAVES LIVES! Members of the community who have not yet received the COVID-19 vaccine and would like to receive it can visit one of [facility] vaccine clinics. There are many vaccine clinic locations within the [facility]. For locations and available times, please visit [email or web address]/. It is important to note that some COVID mobile vaccine clinics are held outdoors and may be canceled in rainy or stormy conditions. To learn more about pediatric vaccinations (ages 5-11), we invite you to visit the [employer] [facility] webpage. https://www.cicaydas.org/pages/4568-Juwbg-Kunmgorcyxt-Fkwlsxkjik-Reeeb-Mvo stions.htmlTo learn more about the COVID-19 vaccine, we invite you to visit the CDC website for a list of frequently asked questions. https://www.cdc.gov/coronavirus/2019-ncov/vaccines/faq.html [facility] Patient Portal Access Instructions: Stay connected with your healthcare team and access your personal medical information anytime with the [facility] Patient Portal. If you would like a full copy of your medical records please contact the [facility] Medical Records Department Sunday through Sunday between 8a.m. and 4:30p.m. Please follow the directions below to access the portal: 1.Access the email account you provided upon registration to the hospital.2.Look for an invitation email from [facility].3.Open the email and access the invitation link: Accept Invitation to [facility]4.Fill in the required white to create your account. Sign into [email or web address] with your username and password that you created in the above steps to stay up to date. You can then view a summary of results, a summary of your visits, and the ability to download your summaries to your computer or send the information securely to a physician. Remember that your healthcare information is confidential, so carefully consider who you will allow to register on the [facility] Patient Portal for access to your information. You can also access the [facility] Patient Portal on the [employer]. Simply click on Health Records under [employer] and then click on the [facility] logo. HOW TO SAFELY DISPOSE OF PRESCRIPTION MEDICATIONS Please use one of the following methods to safely dispose of your unused medications. 1.Use a drug disposal kit: the drug disposal pouch allows you to safely discard your old and unuseddrugs. Ask your nurse to give you one when you are discharged.2.Visit a local take-back location: Many local pharmacies and police departments have programs that collect old and unwanted prescriptiondrugs. Call your local pharmacy or go to http://Mobilygen.Centrix/8I6Oz7q to find one close to you.3.Make use of household items: Use cat litter or old coffee grounds to dispose medications if other options arenot available. Mix your drugs with these household products, seal them in an airtight container andthrow it into the garbage. Call [facility]: [phone] to be sure your drugs can be disposed of in this way. Some medicines may require a different approach.4.Never flush your medications down the toilet. IF YOU HAVE BEEN PRESCRIBED AN OPIOIDS FOR PAIN If you have been prescribed an opioid (such as hydrocodone, oxycodone or morphine), it is critical to understand the possible side effects and risks of opioid pain medications. Even when taken as directed, opioids can have several side effects including: Tolerance, meaning you might need to take more of a medication for the same pain relief. Nausea, vomiting and/or constipation. Sleepiness, dizziness, dry mouth, confusion, depression or itching. Physical dependence, meaning you have withdrawal symptoms when a medication is stopped ? this can develop within a few days. KNOW YOUR RESPONSIBILITIES It is important to know exactly how much and how often to take the opioid pain medications you are prescribed. Never take opioids in higher amounts or more often than prescribed. Do not combine opioids with alcohol or other drugs that cause drowsiness, such as benzodiazepines, also known as benzos,including diazepam and alprazolam, muscle relaxants or sleep aids. Never sell or share prescriptionopioids. This is illegal. Store opioids in a secure place and out of reach of others (including children, family, friends and visitors). The last page(s) of this document has been signed and retained as a CHART COPY Signatures Patient Education Materials HEADACHE, Migraine (Classical) Medication Leaflets My discharge plan and instructions have been reviewed and explained to me and CHRISTINA Clark REBECCA M understand my current condition and have read and understand these discharge instructions. I have received a written copy of the plan/instructions. If I have questions, I am aware that I should contact my doctor. 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 Other symptoms depend on the part of the body that the virus affects. If it settles in your nose, throat, and lungs, it may cause cough, sore throat, congestion, runny nose, headache, earache and other ear symptoms, or shortness of breath. If it settles in your stomach and intestinal tract, it may cause nausea, vomiting, cramping, and diarrhea. Sometimes it causes generalized symptoms like aching all over, feeling tired, loss of energy, or loss of appetite. A viral illness usually lasts anywhere from several days to several weeks, but sometimes it lasts longer. In some cases, a more serious infection can look like a viral syndrome in the first few days of the illness. You may need another exam and additional tests to know the difference. Watch for thewarning signs listed below for when to seek medical advice. Home care Follow these guidelines for taking care of yourself at home: If symptoms are severe, rest at home for the first 2 to 3 days. Stay away from cigarette smoke - both your smoke and the smoke from others. You may use eylz-bie-ppxvrea acetaminophen or ibuprofen for fever, muscle aching, and headache, unless another medicine was prescribed for this. If you have chronic liver or kidney disease or ever had a stomach ulcer or gastrointestinal bleeding, talk with your healthcare provider before using these medicines. No one who is younger than 18 and ill with a fever should take aspirin. It may cause severe disease or . Your appetite may be poor, so a light diet is fine. Avoid dehydration by drinking 8 to 12, 8-ounce glasses of fluids each day. This may include water; orange juice; lemonade; apple, grape, and cranberry juice; clear fruit drinks; electrolyte replacement and sports drinks; and decaffeinated teas andcoffee. If you have been diagnosed with a kidney disease, ask your healthcare provider how much andwhat types of fluids you should drink to prevent dehydration. If you have kidney disease, drinking too much fluid can cause it build up in the your body and be dangerous to your health. Bfbh-wys-uucotqp remedies won't shorten the length of the illness but may be helpful for symptoms such as cough, sore throat, nasal and sinus congestion, or diarrhea. Don't use decongestants if you have high blood pressure. Follow-up care Follow up with your healthcare provider if you do not improve over the next week. Call 911 Call 911 if any of the following occur: Convulsion Feeling weak, dizzy, or like you are going to faint Chest pain, or more than mild shortness of breath When to seek medical advice Call your healthcare provider right away if any of these occur: Cough with lots of colored sputum (mucus) or blood in your sputum Chest pain, shortness of breath, wheezing, or trouble breathing Severe headache; face, neck, or ear pain Severe, constant pain in the lower right side of your belly (abdominal) Continued vomiting (can t keep liquids down) Frequent diarrhea (more than 5 times a day); blood (red or black color) or mucus in diarrhea Feeling weak, dizzy, or like you are going to faint Extreme thirst Fever of 100.4 F (38 C) or higher, or as directed by your healthcare provider [id number] [employer]. [address] [place] [address], [place] [address]. All rights reserved. This information is not intended as a substitute for professional medical care. Always follow yourhealthcare professional's instructions. Follow Up Care 07/21/2022 13:51:04 With:KATHERINE MUNOZ MD Address: [address] [place] [id number]- [phone] [facility]:2[facility] Discharge Instructions Thank you for allowing [facility] to assist you with your healthcare needs. The following is importantdischarge information regarding your hospital visit. Diagnosis from Today's Visit Viral syndrome Vomiting What to Do Next Instructions from Your Care Team No qualifying data available. Post Acute Orders No qualifying data available. You Need to Schedule the Following Appointments Follow Up with KATHERINE MUNOZ MD When Within 2-4 days Where: [address] [place] [address] [phone] Allergies Contrast dye Flagyl Latex (Blisters, Rash) Naprosyn Seafood amoxicillin erythromycin iodine (Rash) penicillin Medications Please ask your primary doctor or pharmacist before taking any other medication not listed, including over the counter drugs, herbal medications, vitamins and or supplements as they may interact withyour home medications. What How Much When Why Instructions Last Dose New ondansetron (Zofran 4 mg oral tablet) 1 tab(s) by mouth Every 6 hours as needed for Nausea/Vomiting Viral syndrome Duration: 5 Days Printed Prescription Please take this list to your next doctor s visit. Bring all medications you take, including over the counter medications, herbals and other supplements with you to your doctor s visit. Patients and families are reminded to discard old lists and to update any records with all medication providers or retail pharmacies. Education Materials Viral Syndrome (Adult) A viral illness may cause a number of symptoms such as fever. Other symptoms depend on the part of the body that the virus affects. If it settles in your nose, throat, and lungs, it may cause cough, sore throat, congestion, runny nose, headache, earache and other ear symptoms, or shortness of breath. If it settles in your stomach and intestinal tract, it may cause nausea, vomiting, cramping, and diarrhea. Sometimes it causes generalized symptoms like aching all over, feeling tired, loss of energy, or loss of appetite. A viral illness usually lasts anywhere from several days to several weeks, but sometimes it lasts longer. In some cases, a more serious infection can look like a viral syndrome in the first few days of the illness. You may need another exam and additional tests to know the difference. Watch for thewarning signs listed below for when to seek medical advice. Home care Follow these guidelines for taking care of yourself at home: If symptoms are severe, rest at home for the first 2 to 3 days. Stay away from cigarette smoke - both your smoke and the smoke from others. You may use zmju-qyl-djjnzzu acetaminophen or ibuprofen for fever, muscle aching, and headache, unless another medicine was prescribed for this. If you have chronic liver or kidney disease or ever had a stomach ulcer or gastrointestinal bleeding, talk with your healthcare provider before using these medicines. No one who is younger than 18 and ill with a fever should take aspirin. It may cause severe disease or . Your appetite may be poor, so a light diet is fine. Avoid dehydration by drinking 8 to 12, 8-ounce glasses of fluids each day. This may include water; orange juice; lemonade; apple, grape, and cranberry juice; clear fruit drinks; electrolyte replacement and sports drinks; and decaffeinated teas andcoffee. If you have been diagnosed with a kidney disease, ask your healthcare provider how much andwhat types of fluids you should drink to prevent dehydration. If you have kidney disease, drinking too much fluid can cause it build up in the your body and be dangerous to your health. Pavq-yyr-wrsqgfi remedies won't shorten the length of the illness but may be helpful for symptoms such as cough, sore throat, nasal and sinus congestion, or diarrhea. Don't use decongestants if you have high blood pressure. Follow-up care Follow up with your healthcare provider if you do not improve over the next week. Call 911 Call 911 if any of the following occur: Convulsion Feeling weak, dizzy, or like you are going to faint Chest pain, or more than mild shortness of breath When to seek medical advice Call your healthcare provider right away if any of these occur: Cough with lots of colored sputum (mucus) or blood in your sputum Chest pain, shortness of breath, wheezing, or trouble breathing Severe headache; face, neck, or ear pain Severe, constant pain in the lower right side of your belly (abdominal) Continued vomiting (can t keep liquids down) Frequent diarrhea (more than 5 times a day); blood (red or black color) or mucus in diarrhea Feeling weak, dizzy, or like you are going to faint Extreme thirst Fever of 100.4 F (38 C) or higher, or as directed by your healthcare provider [id number] [employer]. [address] [place] [address], [place] [address]. All rights reserved. This information is not intended as a substitute for professional medical care. Always follow yourhealthcare professional's instructions. Additional Information VACCINATE! IT SAVES LIVES! Members of the community who have not yet received the COVID-19 vaccine and would like to receive it can visit one of [facility] vaccine clinics. There are many vaccine clinic locations within the [facility]. For locations and available times, please visit www.[email or web address].[place].gov/. It is important to note that some COVID mobile vaccine clinics are held outdoors and may be canceled in rainy or stormy conditions. To learn more about pediatric vaccinations (ages 5-11), we invite you to visit the [employer] [facility] webpage. https://www.cicaydas.org/pages/8693-Fvfaz-Pmpbcdlhere-Ndrpmnpyho-Dlrvf-Spr stions.htmlTo learn more about the COVID-19 vaccine, we invite you to visit the CDC website for a list of frequently asked questions. https://www.cdc.gov/coronavirus/2019-ncov/vaccines/faq.html [facility] Patient Portal Access Instructions: Stay connected with your healthcare team and access your personal medical information anytime with the [facility] Patient Portal. If you would like a full copy of your medical records please contact the [facility] Medical Records Department Sunday through Sunday between 8a.m. and 4:30p.m. Please follow the directions below to access the portal: 1.Access the email account you provided upon registration to the hospital.2.Look for an invitation email from [facility].3.Open the email and access the invitation link: Accept Invitation to [facility].Fill in the required white to create your account. Sign into [email or web address] with your username and password that you created in the above steps to stay up to date. You can then view a summary of results, a summary of your visits, and the ability to download your summaries to your computer or send the information securely to a physician. Remember that your healthcare information is confidential, so carefully consider who you will allow to register on the [facility] Patient Portal for access to your information. You can also access the [facility] Patient Portal on the [employer]. Simply click on Health Records under [employer] and then click on the [employer] logo. HOW TO SAFELY DISPOSE OF PRESCRIPTION MEDICATIONS Please use one of the following methods to safely dispose of your unused medications. 1.Use a drug disposal kit: the drug disposal pouch allows you to safely discard your old and unuseddrugs. Ask your nurse to give you one when you are discharged.2.Visit a local take-back location: Many local pharmacies and police departments have programs that collect old and unwanted prescriptiondrugs. Call your local pharmacy or go to http://Mobilygen.Centrix/2K6Ka5s to find one close to you.3.Make use of household items: Use cat litter or old coffee grounds to dispose medications if other options arenot available. Mix your drugs with these household products, seal them in an airtight container andthrow it into the garbage. Call [facility]: [phone] to be sure your drugs can be disposed of in this way. Some medicines may require a different approach.4.Never flush your medications down the toilet. IF YOU HAVE BEEN PRESCRIBED AN OPIOIDS FOR PAIN If you have been prescribed an opioid (such as hydrocodone, oxycodone or morphine), it is critical to understand the possible side effects and risks of opioid pain medications. Even when taken as directed, opioids can have several side effects including: Tolerance, meaning you might need to take more of a medication for the same pain relief. Nausea, vomiting and/or constipation. Sleepiness, dizziness, dry mouth, confusion, depression or itching. Physical dependence, meaning you have withdrawal symptoms when a medication is stopped ? this can develop within a few days. KNOW YOUR RESPONSIBILITIES It is important to know exactly how much and how often to take the opioid pain medications you are prescribed. Never take opioids in higher amounts or more often than prescribed. Do not combine opioids with alcohol or other drugs that cause drowsiness, such as benzodiazepines, also known as benzos,including diazepam and alprazolam, muscle relaxants or sleep aids. Never sell or share prescriptionopioids. This is illegal. Store opioids in a secure place and out of reach of others (including children, family, friends and visitors). The last page(s) of this document has been signed and retained as a CHART COPY Signatures Patient Education Materials Viral Syndrome (Adult) Medication Leaflets My discharge plan and instructions have been reviewed and explained to me and I,CHRISTINA CRYS Carson understand my current condition and have read and understand these discharge instructions. I have received a written copy of the plan/instructions. If I have questions, I am aware that I should contact my doctor. 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 This causes local pain, swelling and sometimes bruising. There are no broken bones. This injury may take from a few days to a few weeks to heal. Home Care: 1) Keep your leg elevated to reduce pain and swelling. When sleeping, place a pillow under the injured leg. When sitting, support the injured leg so it is level with your waist. This is very important during the first 48 hours. 2) If CRUTCHES have been advised, do not bear full weight on the injured leg until you can do so without pain. You may return to sports when you are able to hop and run on the injured leg without pain. 3) Apply an ice pack (ice cubes in a plastic bag, wrapped in a towel) over the injured area for 20 minutes every 1-2 hours the first day for pain relief. Continue this 3-4 times a day until the pain and swelling goes away. 4) You may use acetaminophen (Tylenol) or ibuprofen (Motrin, Advil) to control pain, unless anotherpain medicine was prescribed. [ NOTE : If you have chronic liver or kidney disease or ever had a stomach ulcer or GI bleeding, talk with your doctor before using these medicines.] Follow Up with your doctor or this facility if you are not starting to improve within the next THREE days. [NOTE: If X-rays were taken, they will be reviewed by a radiologist. You will be notified of any new findings that may affect your care.] Get Prompt Medical Attention if any of the following occur: -- Pain or swelling increases -- Toes become cold, blue, numb or tingly -- Redness, warmth or drainage from the skin [id number] [employer]. [address] [place] [address]. All rights reserved. This information is not intended as a substitute for professional medical care. Always follow yourhealthcare professional's instructions. 07/14/2022 11:34:30 Lower Extremity Contusion Lower Extremity Contusion You have a contusion (bruise) of a lower extremity (leg, knee, ankle, foot, or toe). Symptoms include pain, swelling, and skin discoloration. No bones are broken. This injury may take from a few daysto a few weeks to heal. During that time, the bruise may change from reddish in color, to purple-blue, to green- yellow, to yellow-brown. Home care Unless another medicine was prescribed, you can take acetaminophen, ibuprofen, or naproxen to control pain. (If you have chronic liver or kidney disease or ever had a stomach ulcer or gastrointestinal bleeding, talk with your doctor before using these medicines.) Elevate the injured area to reduce pain and swelling. As much as possible, sit or lie down with theinjured area raised about the level of your heart. This is especially important during the first 48hours. Ice the injured area to help reduce pain and swelling. Wrap a cold source (ice pack or ice cubes sin plastic bag) in a thin towel. Apply to the bruised area for 20 minutes every 1 to 2 hours the first day. Continue this 3 to 4 times a day until the pain and swelling goes away. If crutches have been advised, do not bear full weight on the injured leg until you can do so without pain. You may return to sports when you are able to put full weight and impact on the injured legwithout pain. Follow up Follow up with your healthcare provider or our staff as advised. Call if you are not improving within the next 1 to 2 weeks. When to seek medical advice Call your healthcare provider right away if any of these occur: Increased pain or swelling Foot or toes become cold, blue, numb or tingly Signs of infection: Warmth, drainage, or increased redness or pain around the injury Inability to move the injured area , or any joints below the injured area. Frequent bruising for unknown reasons [id number] [employer] [place] [address]. All rights reserved. This information is not intended as a substitute for professional medical care. Always follow yourhealthcare professional's instructions. Follow Up Care 07/14/2022 11:31:19 With:DO CHRISTY WOO DO Address: [address] [place] [address] [address] [place] [address] When:3-7 days With:Go to emergency room if symptoms worsen Address:Unknown When:2-4 days With:KATHERINE MUNOZ MD Address: [address] [place] [phone] [phone] When:2-4 days [facility] 04-07-2023 Emergency department Discharge summary Discharge Instructions Thank you for allowing [facility] to assist you with your healthcare needs. The following is importantdischarge information regarding your hospital visit. Diagnosis from Today's Visit Contusion of leg Ankle pain-swelling What to Do Next Instructions from Your Care Team Use walker as needed. Weightbearing as tolerated. Follow-up with your primary care provider. Follow-up with Dr. Woo of orthopedics if continued pain or your orthopedic. Return emergency departmentif experience worsening symptoms or any other care concern. Tylenol and or Motrin as needed for pain. Discharge Home Equipment - Ordered -- Walker; with wheels, 99 month(s), 07/14/22 12:52:00 EDT Post Acute Orders No qualifying data available. You Need to Schedule the Following Appointments Follow Up with KNAPIC, DO CHRISTY DO When Within 3-7 days Where: [address] [place] [address] Follow Up with Go to emergency room if symptoms worsen When Within 2-4 days Follow Up with KATHERINE MUNOZ MD When Within 2-4 days Where: [address] [place] [address] [phone] Allergies Contrast dye Flagyl Latex (Blisters, Rash) Naprosyn Seafood amoxicillin erythromycin iodine (Rash) penicillin Medications Please ask your primary doctor or pharmacist before taking any other medication not listed, including over the counter drugs, herbal medications, vitamins and or supplements as they may interact withyour home medications. What How Much When Why Instructions Last Dose Unchanged ARIPiprazole (ARIPiprazole 20 mg oral tablet) 1 tab(s) by mouth Once a day Unchanged baclofen (baclofen 10 mg oral tablet) 1 tab(s) by mouth Three (3) times a day Duration: 5 Days Unchanged carBAMazepine (carBAMazepine 200 mg oral tablet) 2 tab(s) by mouth Two (2) times a day Unchanged cefdinir (cefdinir 300 mg oral capsule) 1 cap by mouth Every 12 hours Pyelonephritis Duration: 7 Days Unchanged celecoxib (celecoxib 200 mg oral capsule) 1 cap by mouth Once a day Unchanged cyclobenzaprine (cyclobenzaprine 10 mg oral tablet) 1 tab(s) by mouth Three (3) times a day as needed for Muscle spasm Unchanged dicyclomine (Bentyl use dicyclomine ) 20 Milligram by mouth Four (4) times a day Duration: 7 Days Unchanged dicyclomine (Bentyl use dicyclomine ) 20 Milligram by mouth Four (4) times a day Abdominal pain Unchanged DULoxetine (DULoxetine 30 mg oral delayed release capsule) 2 cap by mouth Once a day Unchanged EPINEPHrine (EPINEPHrine 0.3 mg injectable kit) See instructions 0.3 mg Intramuscular Unchanged famotidine (famotidine 20 mg oral tablet) 1 tab(s) by mouth Once a day Unchanged gabapentin (gabapentin 600 mg oral tablet) 1 tab(s) by mouth Three (3) times a day Unchanged hydrOXYzine (hydrOXYzine pamoate 50 mg oral capsule) 1 cap by mouth Two (2) times a day Unchanged levETIRAcetam (levETIRAcetam 500 mg oral tablet) 1 tab(s) by mouth Two (2) times a day Unchanged montelukast (montelukast 10 mg oral tablet) 1 tab(s) by mouth Once a day Unchanged nitrofurantoin (nitrofurantoin macrocrystals-monohydrate 100 mg oral capsule) Unchanged omeprazole (omeprazole 40 mg oral delayed release capsule) 1 cap by mouth Once a day Unchanged pantoprazole (pantoprazole 40 mg oral enteric coated tablet) 1 tab(s) by mouth Once a day Unchanged phenazopyridine (phenazopyridine 100 mg oral tablet) 1 tab(s) by mouth Two (2) times a day Unchanged prazosin (prazosin 2 mg oral capsule) 1 cap by mouth Daily at bedtime Unchanged promethazine (promethazine 25 mg oral tablet) 1 tab(s) by mouth Three (3) times a day Unchanged simvastatin (simvastatin 20 mg oral tablet) 1 tab(s) by mouth Daily at bedtime Unchanged topiramate (topiramate 200 mg oral tablet) 1 tab(s) by mouth Once a day Unchanged traMADol (traMADol 50 mg oral tablet) 1 tab(s) by mouth Three (3) times a day Unchanged traZODone (traZODone 100 mg oral tablet) 3 tab(s) by mouth Daily at bedtime Please take this list to your next doctor s visit. Bring all medications you take, including over the counter medications, herbals and other supplements with you to your doctor s visit. Patients and families are reminded to discard old lists and to update any records with all medication providers or retail pharmacies. Education Materials Contusion:Lower Extremity You have a CONTUSION of your LOWER extremity (leg, knee, ankle, foot, or toes). This causes local pain, swelling and sometimes bruising. There are no broken bones. This injury may take from a few days to a few weeks to heal. Home Care: 1) Keep your leg elevated to reduce pain and swelling. When sleeping, place a pillow under the injured leg. When sitting, support the injured leg so it is level with your waist. This is very important during the first 48 hours. 2) If CRUTCHES have been advised, do not bear full weight on the injured leg until you can do so without pain. You may return to sports when you are able to hop and run on the injured leg without pain. 3) Apply an ice pack (ice cubes in a plastic bag, wrapped in a towel) over the injured area for 20 minutes every 1-2 hours the first day for pain relief. Continue this 3-4 times a day until the pain and swelling goes away. 4) You may use acetaminophen (Tylenol) or ibuprofen (Motrin, Advil) to control pain, unless anotherpain medicine was prescribed. [ NOTE : If you have chronic liver or kidney disease or ever had a stomach ulcer or GI bleeding, talk with your doctor before using these medicines.] Follow Up with your doctor or this facility if you are not starting to improve within the next THREE days. [NOTE: If X-rays were taken, they will be reviewed by a radiologist. You will be notified of any new findings that may affect your care.] Get Prompt Medical Attention if any of the following occur: -- Pain or swelling increases -- Toes become cold, blue, numb or tingly -- Redness, warmth or drainage from the skin [id number] [employer] [place] [address]. All rights reserved. This information is not intended as a substitute for professional medical care. Always follow yourhealthcare professional's instructions. Lower Extremity Contusion You have a contusion (bruise) of a lower extremity (leg, knee, ankle, foot, or toe). Symptoms include pain, swelling, and skin discoloration. No bones are broken. This injury may take from a few daysto a few weeks to heal. During that time, the bruise may change from reddish in color, to purple-blue, to green- yellow, to yellow-brown. Home care Unless another medicine was prescribed, you can take acetaminophen, ibuprofen, or naproxen to control pain. (If you have chronic liver or kidney disease or ever had a stomach ulcer or gastrointestinal bleeding, talk with your doctor before using these medicines.) Elevate the injured area to reduce pain and swelling. As much as possible, sit or lie down with theinjured area raised about the level of your heart. This is especially important during the first 48hours. Ice the injured area to help reduce pain and swelling. Wrap a cold source (ice pack or ice cubes sin plastic bag) in a thin towel. Apply to the bruised area for 20 minutes every 1 to 2 hours the first day. Continue this 3 to 4 times a day until the pain and swelling goes away. If crutches have been advised, do not bear full weight on the injured leg until you can do so without pain. You may return to sports when you are able to put full weight and impact on the injured legwithout pain. Follow up Follow up with your healthcare provider or our staff as advised. Call if you are not improving within the next 1 to 2 weeks. When to seek medical advice Call your healthcare provider right away if any of these occur: Increased pain or swelling Foot or toes become cold, blue, numb or tingly Signs of infection: Warmth, drainage, or increased redness or pain around the injury Inability to move the injured area , or any joints below the injured area. Frequent bruising for unknown reasons [id number] [employer]. [address] [place] [address]. All rights reserved. This information is not intended as a substitute for professional medical care. Always follow yourhealthcare professional's instructions. Additional Information VACCINATE! IT SAVES LIVES! Members of the community who have not yet received the COVID-19 vaccine and would like to receive it can visit one of [facility] vaccine clinics. There are many vaccine clinic locations within the [facility]. For locations and available times, please visit [email or web address] It is important to note that some COVID mobile vaccine clinics are held outdoors and may be canceled in rainy or stormy conditions. To learn more about pediatric vaccinations (ages 5-11), we invite you to visit the [facility] webpage. [email or web address]/[email or web address] learn more about the COVID-19 vaccine, we invite you to visit the CDC website for a list of frequently asked questions. https://www.cdc.gov/coronavirus/2019-ncov/vaccines/faq.html [facility] Patient Portal Access Instructions: Stay connected with your healthcare team and access your personal medical information anytime with the [facility] Patient Portal. If you would like a full copy of your medical records please contact the [facility] Medical Records Department Sunday through Sunday between 8a.m. and 4:30p.m. Please follow the directions below to access the portal: 1.Access the email account you provided upon registration to the [facility].2.Look for an invitation email from [facility].3.Open the email and access the invitation link: Accept Invitation to [facility]4.Fill in the required white to create your account. Sign into [email or web address] with your username and password that you created in the above steps to stay up to date. You can then view a summary of results, a summary of your visits, and the ability to download your summaries to your computer or send the information securely to a physician. Remember that your healthcare information is confidential, so carefully consider who you will allow to register on the [facility] Patient Portal for access to your information. You can also access the [facility] Patient Portal on the [employer] johnny. Simply click on Health Records under [employer] and then click on the [facility] logo. HOW TO SAFELY DISPOSE OF PRESCRIPTION MEDICATIONS Please use one of the following methods to safely dispose of your unused medications. 1.Use a drug disposal kit: the drug disposal pouch allows you to safely discard your old and unuseddrugs. Ask your nurse to give you one when you are discharged.2.Visit a local take-back location: Many local pharmacies and police departments have programs that collect old and unwanted prescriptiondrugs. Call your local pharmacy or go to http://Mobilygen.Centrix/3F0Yy2h to find one close to you.3.Make use of household items: Use cat litter or old coffee grounds to dispose medications if other options arenot available. Mix your drugs with these household products, seal them in an airtight container andthrow it into the garbage. Call [facility]: [phone] to be sure your drugs can be disposed of in this way. Some medicines may require a different approach.4.Never flush your medications down the toilet. IF YOU HAVE BEEN PRESCRIBED AN OPIOIDS FOR PAIN If you have been prescribed an opioid (such as hydrocodone, oxycodone or morphine), it is critical to understand the possible side effects and risks of opioid pain medications. Even when taken as directed, opioids can have several side effects including: Tolerance, meaning you might need to take more of a medication for the same pain relief. Nausea, vomiting and/or constipation. Sleepiness, dizziness, dry mouth, confusion, depression or itching. Physical dependence, meaning you have withdrawal symptoms when a medication is stopped ? this can develop within a few days. KNOW YOUR RESPONSIBILITIES It is important to know exactly how much and how often to take the opioid pain medications you are prescribed. Never take opioids in higher amounts or more often than prescribed. Do not combine opioids with alcohol or other drugs that cause drowsiness, such as benzodiazepines, also known as benzos,including diazepam and alprazolam, muscle relaxants or sleep aids. Never sell or share prescriptionopioids. This is illegal. Store opioids in a secure place and out of reach of others (including children, family, friends and visitors). The last page(s) of this document has been signed and retained as a CHART COPY Signatures Patient Education Materials CONTUSION, Lower Extremity Lower Extremity Contusion Medication Leaflets My discharge plan and instructions have been reviewed and explained to me and ICHRISTINA REBECCA M understand my current condition and have read and understand these discharge instructions. I have received a written copy of the plan/instructions. If I have questions, I am aware that I should contact my doctor. 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 The ankle mortise and talar dome are normal. An os trigonum is noted. Mild hallux valgus deformity. 1st metatarsal osteotomy with lmaz-hi-[id number] narrowing of the 1st MTP joint. Postsurgical arthrodesis of the 1st metatarsal base and 2nd cuneiform with a single threaded surgical screw. Mild soft tissue swelling of the dorsal midfoot noted. IMPRESSION: No acute fracture or dislocation. Postsurgical arthrodesis of the 2nd cuneiform 1st metatarsal base. Hallux valgus deformity, 1st metatarsal osteotomy and [id number] narrowing of the 1st MTP joint. Interpreted by: Marium Bueno MD Preliminary Report By: Marium Bueno MD Electronically signed By Marium Bueno MD Dictated Date: 07/14/2022 12:05:58 PM Prelim Date: 07/14/2022 12:10:19 PM Sign Date: 07/14/2022 12:10:19 PM Ordering Provider: [address]07-2023 Note ORIGINAL EXAMINATION: TWO XRAY VIEWS OF THE LEFT TIBIA/FIBULA07/14/2022 11:58 am TECHNIQUE: Two views of the left tibia and fibula COMPARISON: Left ankle 12/05/2020 HISTORY: ORDERING SYSTEM PROVIDED HISTORY: Reason for Exam: pain, injury FINDINGS: No acute fracture or dislocation is identified. The knee and ankle joints are intact. Benign soft tissue calcifications within the anteromedial mid tibia noted. IMPRESSION: No acute fracture or dislocation. Interpreted by: Marium Bueno MD Preliminary Report By: Marium Bueno MD Electronically signed By Marium Bueno MD Dictated Date: 07/14/2022 12:04:36 PM Prelim Date: 07/14/2022 12:05:54 PM Sign Date: 07/14/2022 12:05:54 PM Ordering Provider: [address]07-2023 Note ORIGINAL EXAMINATION: TWO XRAY VIEWS OF THE LEFT TIBIA/FIBULA07/14/2022 11:58 am TECHNIQUE: Two views of the left tibia and fibula COMPARISON: Left ankle 12/05/2020 HISTORY: ORDERING SYSTEM PROVIDED HISTORY: Reason for Exam: pain, injury FINDINGS: No acute fracture or dislocation is identified. The knee and ankle joints are intact. Benign soft tissue calcifications within the anteromedial mid tibia noted. IMPRESSION: No acute fracture or dislocation. Interpreted by: Marium Bueno MD Preliminary Report By: Marium Bueno MD Electronically signed By Marium Bueno MD Dictated Date: 07/14/2022 12:04:36 PM Prelim Date: 07/14/2022 12:05:54 PM Sign Date: 07/14/2022 12:05:54 PM Ordering Provider: [facility]04-07-2023 Note ORIGINAL EXAMINATION: XRAY VIEWS OF THE EXTREMITY07/14/2022 11:59 am EXTREMITY UNKNOWN TECHNIQUE: 6 views of the left ankle and foot COMPARISON: Same day tibia and fibula HISTORY: ORDERING SYSTEM PROVIDED HISTORY: Reason for Exam: pain, injury FINDINGS: No acute fracture or dislocation is identified. The ankle mortise and talar dome are normal. An os trigonum is noted. Mild hallux valgus deformity. 1st metatarsal osteotomy with etsm-la-[id number] narrowing of the 1st MTP joint. Postsurgical arthrodesis of the 1st metatarsal base and 2nd cuneiform with a single threaded surgical screw. Mild soft tissue swelling of the dorsal midfoot noted. IMPRESSION: No acute fracture or dislocation. Postsurgical arthrodesis of the 2nd cuneiform 1st metatarsal base. Hallux valgus deformity, 1st metatarsal osteotomy and [id number] narrowing of the 1st MTP joint. Interpreted by: Marium Bueno MD Preliminary Report By: Marium Bueno MD Electronically signed By Marium Bueno MD Dictated Date: 07/14/2022 12:05:58 PM Prelim Date: 07/14/2022 12:10:19 PM Sign Date: 07/14/2022 12:10:19 PM Ordering Provider: [facility]01-16-2023 Miscellaneous Notes* Telephone Encounter - Phuong Santiago - 04/24/2022 12:37 PM EST Patient has left a voicemail that she is transferring care to [facility] at Dr. Clements's office for her pain management and has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 twice daily as needed for pain for up to 30 days. Okay to fill on 03/31/22 d/t holiday Do not start before April 01, 2022. gabapentin (NEURONTIN) 600 mg tablet Take 1 tablet by mouth three times daily for 30 days. Do not start before March 09, 2022. TBPYGL-FSPYIYMF-AIBLYRU ORAL Take by mouth. scopolamine (TRANSDERM-SCOP) patch 1.5 mg/72 hr (delivers 1 mg over 3 days) Apply 1 Patch as directed every 72 hours. baclofen (LIORESAL) 10 mg tablet TAKE 1 TABLET BY MOUTH UP TO THREE TIMES A DAY NEEDED FOR PAINFUL MUSCLE SPASM hydrOXYchloroQUINE (PLAQUENIL) 200 mg tablet TAKE 1 TABLET BY MOUTH TWICE A DAY predniSONE (DELTASONE) 5 mg tablet Take 3 tablets for 1 week, 2 tabs for 1 week, 1 tab for 1 week, then stop docusate sodium (COLACE) 100 mg capsule Take 1 capsule by mouth twice daily. QUEtiapine (SEROQUEL) 200 mg tablet Take 200 mg by mouth daily at bedtime. Taking with a 300mg to =500mg daily famotidine (PEPCID) 20 mg tablet TAKE 1 TABLET BY MOUTH DAILY pantoprazole DR (PROTONIX) 40 mg tablet TAKE 1 TABLET BY MOUTH DAILY 30 MINUTES BEFORE A MEAL prazosin (MINIPRESS) 5 mg cap UROGESIC-BLUE 81.6-40.8-0.12 mg tab (Patient not taking: Reported on 12/22/2021) hydrOXYzine pamoate (VISTARIL) 50 mg capsule ARIPiprazole (ABILIFY) 10 mg tablet (Patient not taking: Reported on 02/23/2022) SUMAtriptan (IMITREX) 50 mg tablet Take 50 mg by mouth as needed. traZODone (DESYREL) 100 mg tablet Take 200 mg by mouth daily at bedtime. DULoxetine (CYMBALTA) 30 mg capsule Take 30 mg by mouth once daily. topiramate (TOPAMAX) 200 mg tablet Take 200 mg by mouth twice daily. montelukast (SINGULAIR) 10 mg tablet Take 10 mg by mouth daily at bedtime. methenam/sod phos/mblue/hyoscy (UROGESIC-BLUE ORAL) Take by mouth. (Patient not taking: Reported on 12/22/2021) dicyclomine (BENTYL) 10 mg capsule TAKE 1 CAPSULE BY MOUTH FOUR TIMES A DAY BEFORE MEALS AND AT BEDTIME levETIRAcetam (KEPPRA) 500 mg tablet TAKE 1 TABLET BY MOUTH TWICE A DAY simvastatin (ZOCOR) 20 mg tablet Take 1 tablet by mouth daily at bedtime. promethazine (PHENERGAN) 25 mg tablet take 1 tablet by mouth every 6 hours if needed DULoxetine (CYMBALTA) 60 mg capsule Take 2 capsules by mouth once daily. Aliza Nieves. carBAMazepine (TEGRETOL) 200 mg tablet take 1 tablet by mouth in am and 2 at bedtime. Rx'd by Aliza Nieves . For mood and seizures. No current facility-administered medications on file prior to visit. ALLERGIES Allergen Reactions Shellfish Derived Other: See Comments, Anaphylaxis THROAT SWELLING Seafood--THROAT SWELLS Venom-Honey Bee Unknown Venom-Wasp Unknown Carafate [Sucralfat* Hives Hives and Vomiting Latex Rash, Hives Adhesive Tape (Mis* Rash Aleve [Naproxen Sod* Other: See Comments Bactrim [Sulfametho* Other: See Comments severe headaches and nosebleeds Cipro [Ciprofloxaci* Rash Erythromycin Rash Flagyl [Metronidazo* Other: See Comments THROAT SWELLING Iodine Other: See Comments THROAT SWELL Naproxyn [Naproxen] Other: See Comments HEART STOPPED Novacaine [Procaine] Other: See Comments Does not work Ondansetron Other: See Comments headache Penicillins Other: See Comments THROAT SWELLING Pregabalin Swelling Facial swelling, very irritable Wellbutrin [Bupropi* Other: See Comments Zombie like state Objective Exam: Vitals: As per nursing documentation Constitutional: Normal Appearance, Oriented to Time, Place and Person Head: No lacerations, no external signs of trauma Eyes: Conjunctiva clear. No discharge from the eyes Cardiovascular: Appears well-perfused Pulmonary: Non-labored respirations Abdominal: Non-distended Skin: No visible rashes or ecchymosis Psychiatric: Mood appropriate for given condition Neurological: Gross movements are limited by pain, but otherwise unremarkable Assessment and Plan: As noted above UNIVERSAL PROTOCOL / SAFETY CHECKLIST * Procedure to be Performed: as noted above Sign In: A Moment of CARE was completed. Personnel directly involved with the procedure wore the appropriate PPE (Personal Protective Equipment). Patient/Surrogate Stated/Verified: PATIENT VERIFIED(optional for EMERGENT procedures): Patient name, Date of , Relevant allergies and The intended procedure Time Out Communication: Intended patient and procedure match the source documents. Consent documented and matches the intended procedure. Obtained in writing prior to procedure I had a nice discussion with the patient today about their current pain and the pathology that could be causing it We discussed different treatment options, including risks, benefits and alternatives. We agreed to proceed as previously discussed, or the plan was modified in accordance with the comments noted above Unless stated otherwise in the procedure note, the risks include but are not limited to infection, allergic reaction, increased pain, lack of therapeutic benefit, steroid reaction, nerve damage, paralysis, stroke, epidural hematoma, syncope, headache, respiratory or cardiac arrest, pneumothorax, and scar formation Once the plan was agreed upon, the patient gave written consent to proceed and was transported intothe procedure room Sign Out: SIGN OUT (optional for EMERGENT procedures): No specimen collected. Post-procedure follow-up management communicated and Plan of Care Visit completed when applicable. Time Out was led by the physician in the procedure room, with the patient and all staff present andparticipating The following information was verified during the Time Out process: Patient name, patient date of , procedure site (marked), laterality, anticoagulants and allergies Procedure: The patient was prepped and draped in a sterile fashion in the prone position after informed consent was signed and all patient questions were answered including the risks, benefits, alternative treatment options, and prognosis. The risks are as mentioned above, with the exception of Pneumothorax. The coronae was localized with palpation and confirmed under fluoroscopic visualization. A 1.5inch,25 gauge needle was inserted and a skin wheel was made. The needle was then advanced until contact was made with the periosteum. Two cc. of 1% Lidocaine without Epinephrine was injected into the periosteum. A 22 gauge, 3.5 inch needle was then advanced through the Sacrococcygeal ligament. Under lateral visualization, the needle was further advanced until contact was made with the posterior surface of the dorsal sacrum. The needle was then withdrawn slightly and aligned parallel to horizontal and advanced into the epidural space. Using AP visualization, the needle was advanced no further superior than the S3 level. Contrast was then injected as described above. Subsequently, the injectate was placed. Radiographs were obtained for documentation purposes. Please see the nursing note for exact times (time out, procedure start, procedure end). After careful removal of the needle, there was minimal bleeding. The injection site was covered with appropriate sterile dressing. The patient was noted to have tolerated the procedure well and was discharged after an appropriate period of post-procedure observation. The patient was instructed to contact us if there were any complications. The patient was advised to follow-up with the requesting physician within one to two weeks or as per their requested follow-up plan. Post procedure visit summary with written instructions was offered to the patient. oFrest [place] [facility] documented in this encounterSelect Medical [facility]12-06-2022 Miscellaneous Notes* Telephone Encounter - Angela Kingston - 03/14/2022 11:00 AM EST [facility] Telephone Medication Refill Request Name/dose: Celecoxib 200mg capsule Amount dispensed monthly: 28 Date last filled: 02/27/2022 Date last seen in office: 02/23/2022 Provider: Daniella Mars Next scheduled visit: 03/23/2022 Pharmacy: [facility] [address] [place] [address] - [phone] [phone] Angela Kingston LPN March 14, 2022 11:01 AM documented in this [facility]11-18-2022 Miscellaneous Notes* Telephone Encounter - Randi Mohan MA - 02/24/2022 4:32 PM EST Patient informed of below message reciprocated understanding. Randi Mohan MA * Telephone Encounter - Daniella Mars APRN.CNP - 02/24/2022 3:45 PM EST New Rx sent to her pharmacy, please advise patient that although she can fill 1 day early due to the holiday, do not start her Rx until 03/02/22 and 04/01/22. Thank you Daniella Mars APRN.JANETH * Telephone Encounter - Brian Mills MA - 02/24/2022 3:07 PM EST Anne from the pharmacy left a message stating two prescriptions were sent in for pain medication. She states that the one is due to fill , they are closed, so would need filled 03/01 or 03/06. The second prescription is due to fill on , they are closed, so would need to be filled on a different date. Please advise. Brian Mills MA * Telephone Encounter - Sabrina Mason - 02/23/2022 8:57 AM EST Pharmacy calling: Anne from: [facility] - [address] [place] [id number] - [phone] [phone] Regarding pt's prescription for: HYDROcodone-acetaminophen (NORCO) 5-325 mg per tablet Stated that it was ordered to be filled on and that nothing is open on . Please call Anne at the pharmacy at [phone] Thank you! Sabrina Mason documented in this encounterSelect Medical Specialty [facility]11-17-2022 Miscellaneous Notes* Telephone Encounter - Abad Pradhan - 02/23/2022 8:55 AM EST Procedure(s) being scheduled: 1.Are you diabetic No 2. Are you on any blood thinners? No If yes, does it require a hold? No If yes, was approval letter sent? No 3. Are you taking any aspirin? No 4. Are you currently taking any antibiotics? No If yes, is it prophylactic or for treatment of an infection? 5. Do you have any allergies to latex? Yes 6. Do you have any allergies to seafood or shellfish? Yes 7. Do you have any allergies to x-ray dye? Yes 8. Did the physician instruct you to take any medication prior to your procedure?Yes 9. Does this procedure require a ups driver? Yes If yes, has patient been notified that a ups driver is needed and must be present at check in? Yes 10. Were the pre-procedure instructions explained and provided to the patient? Yes 11. Do you have a pacemaker? No 12. Do you have an internal stimulator of any kind? Yes If yes, please bring the remote with you to your procedure visit. 13. Have you received the COVID-19 Vaccine? Yes. If yes, date(s) received: 07/14/20 (Patient should not receive a procedure including steroids 14 days prior to their first dose of theCOVID vaccine. They should not receive any procedure containing steroids in the time frame between their 1st and 2nd doses of the COVID vaccine. They should not receive a procedure containing steroids 14 days after their 2nd dose of the COVID vaccine.) Abad Pradhan documented in this encounter[facility] Instructions* Patient Instructions* Daniella Mars APRN.CNP - 02/23/2022 8:34 AM EST Activity as tolerated Use Ice and/or heat as tolerated as needed documented in this encounterSelect [facility]-17-2022 History of Present illness Narrative* Tricia Daniel MA - 02/23/2022 8:24 AM EST Review of Systems Constitutional: Negative for activity change, chills, fever and unexpected weight change. Gastrointestinal: Negative for bowel retention or incontinence Genitourinary: Negative for difficulty urinating. Negative for bladder retention or incontinence Musculoskeletal: Positive for arthralgias, back pain, gait problem, joint swelling and myalgias. Negative for neck pain and neck stiffness. Neurological: Positive for weakness, numbness and headaches. Psychiatric/Behavioral: Negative for dysphoric mood, sleep disturbance and suicidal ideas. The patient is not nervous/anxious. * Daniella Mars APRN.HOSTESS HOST - 02/23/2022 8:15 AM EST Images from the original note were not included. [facility] General Today's Date: 02/23/2022 Last Visit: 12/22/21 Name: Crys Franks : 1975 Chief complaint: Chronic Low Back Pain History of Present Illness: Since last encounter, Crys Franks; reports that the chronic problem(s) detailed above are Unchanged. Reports overall she is doing well. Her GI doctor is working with her, she has had some medication adjustments for her pancreas. Last OV we discussed proceed with Caudal LULU once she was cleared from her surgeon. She has not been able to reschedule yet, but she is ready to reschedule. She wants to discuss removal of her SCS, has been turned off for 2 years now. Reports she initiallyhad good relief with her SCS but then felt like she was zapping her Pain Description: Timing: constant (intensity varies) Character: Sharp, shooting leg pain Primary Location: Neck and low back Radiation: Posterior bilateral legs, stops at the knee on the RIGHT and to her FOOT on the LEFT Exacerbating factors: unable to pinpoint exacerbating factors/positions Relieving factors: medications Interferes with: physical activity, sleeping, cooking and household cleaning The patient reports 5-6 hours of uninterrupted sleep per night The patient denies difficulty with bowel or bladder control, unintentional weight loss and fevers, chills, or night sweats. New Problems reported: See above Recall: Patient of Dr. Dos Santos. Patient has SCS, has been turned off for nearly 2 years now as it was no longer giving her meaningful relief. Hx of previous spinal fusion prior to her SCS Current Status: INTAKE PAIN ASSESSMENT 11/03/2021 12/22/2021 Are you having pain associated with your visit today? Yes, Provider notified Yes, Provider notified Pain Scales Verbal (Numeric Rating or Visual Analog Scale) Verbal (Numeric Rating or Visual Analog Scale) Pain Level 8 7 Pain Location (No Data) Back Description Aching Sharp;Stabbing Duration Amount of Time - - Duration Units Years Years Frequency Continuous Continuous Intervention/Comfort measure Medication Medication Comments - - Pain Assessment - - Breathing Independent of Vocalization - - Negative Vocalization - - Facial Expression - - Body Language - - Consolability - - PAINAD Score - - Current Pain Medications: Opioids: Hydrocodone 5/325 BID prn NSAIDS: Celebrex, diclofenac gel Anti-depressants: cymbalta 90mg daily, Seroquel 300mg (Psych manages) Anti-convulsants: gabapentin 600mg TID, topamax 200mg BID, tegretol Muscle relaxants: baclofen Others: Analgesia: adequate Current Anti-Coagulant Use: No Opioid Medications requiring refills today: Hydrocodone 5 Date last filled: 01/30/22 Quantity filled: 60 How many left: 11 Time most recent dose taken: 02/23/2022 Risk Assessment: TONY-7: No flowsheet data found.(0-4) minimal anxiety, (5-9) mild anxiety, (10-14) moderate anxiety, (15-21) severe anxiety PHQ-9: No flowsheet data found.(0-4) minimal depression, (5-9) mild depression, (10-14) moderate depression, (15-19) moderately severe depression, (20-27) severe depression Compliance: PDMP website checked and validated. All prescriptions have been APPROPRIATELY filled. No suspiciousactivity was identified. 02/23/2022 by Daniella Mars APRN.HOSTESS HOST Last Drug screen: 12/22/21 appropriate. Compliance: Safety Checklist: Are you taking proper precautions to safe guard your medication? Yes Taking the medications as prescribed? Yes Getting pain medications from another physician? No Obtaining pain medication from another source? No Sharing medications with friends/family? No Quality of life improved as a result of taking these medications? Yes Any side effect with this medication? No Justification for Continued Opioid Care: Adequate analgesia? Yes Aberrant drug seeking behavior? No Adverse reactions? No Medications improve quality of life? Yes Allergies: ALLERGIES Allergen Reactions Shellfish Derived Other: See Comments, Anaphylaxis THROAT SWELLING Seafood--THROAT SWELLS Venom-Honey Bee Unknown Venom-Wasp Unknown Carafate [Sucralfat* Hives Hives and Vomiting Latex Rash, Hives Adhesive Tape (Mis* Rash Aleve [Naproxen Sod* Other: See Comments Bactrim [Sulfametho* Other: See Comments severe headaches and nosebleeds Cipro [Ciprofloxaci* Rash Erythromycin Rash Flagyl [Metronidazo* Other: See Comments THROAT SWELLING Iodine Other: See Comments THROAT SWELL Naproxyn [Naproxen] Other: See Comments HEART STOPPED Novacaine [Procaine] Other: See Comments Does not work Ondansetron Other: See Comments headache Penicillins Other: See Comments THROAT SWELLING Pregabalin Swelling Facial swelling, very irritable Wellbutrin [Bupropi* Other: See Comments Zombie like state Data Reviewed: Reviewed personally on today's date 02/23/2022 Relevant Imaging: CT L-Spine 08/2018: Bone marrow /fracture: No evidence of a lytic or blastic process in the visualized spine. Prior discectomy and fusion of L5-S1 from an anterior approach. There are bilateral L5 pars defects. No anterolisthesis. No evidence of fracture. Paraspinal soft tissues: There is a spinal stimulator present. The battery pack is within the right posterior subcutaneous soft tissues. This is incompletely included on the exam. No obvious abnormality surrounds the generator pack. The lateral leads enters the spine through the T12-L1 interlaminar space. The visualized portions of the leads appear to be intact. Lower thoracic spine: The visualized lower thoracic bony canal and foramina are patent. T12-L1: Canal and foramina are patent. L1-L2: Canal and foramina are patent. L2-L3: Canal and foramina are patent L3-L4: Mild broad-based posterior disc bulging. No significant central canal stenosis. Mild bilateral foraminal stenosis. L4-L5: Mild generalized disc bulge. No significant central canal stenosis. Mild appearing bilateralforaminal stenosis. L5-S1: Prior discectomy. No recurrent disc protrusion or central canal stenosis. No foraminal stenosis. Sacrum and iliac wings: The visualized sacrum and iliac wings are within normal limits. IMPRESSION: 1. Relatively minimal degenerative changes as detailed above. No significant central canal stenosis. Mild foraminal stenosis as detailed. 2. Prior surgical changes as detailed above. 3. No evidence of fracture 4. No specific abnormality is seen within the visualized portions around the spinal stimulating generator pack. This area was incompletely included. Further assessment as clinical symptoms warrant. XR RIGHT shoulder 07/11/21: Normal shoulder XR Cervical Spine 4v 07/11/21: RESULT: 4 views of the cervical spine demonstrate multilevel degenerative change with vertebral body osteophytosis and disc space narrowing, greatest at C3-4 and anteriorly at C6-7. 1 to 2 mm anterolisthesis of C4 on C5 and C5 on C6 with intact spinolaminal line suggesting degenerative etiology. There are no vertebral body compression deformities and alignment is otherwise well maintained. Bilateral obliques demonstrate the foramina maintained. The atlantoaxial interval and craniocervical junction are intact. There is no prevertebral soft tissue abnormality. Electrodiagnostic Study (EMG): 07/28: Mild to moderate CTS RIGHT Recent labs: Creatinine Date Value Ref Range Status 10/21/2021 0.68 0.58 - 0.96 mg/dL Final Pain Procedures: DATE PROCEDURE IMPROVEMENT None to date at this practice Current Medications, Past Medical History, Past Surgical History, Family History, Social History and Review of Systems: On today's date, 02/23/2022, noted above, I have confirmed and edited as necessary, the PFSH and ROS obtained by others. Physical Exam: 02/23/22 0827 Pulse: 95 Resp: 16 SpO2: 96% Constitutional: obese HEENT: Normal Cephalic, Atraumatic, Non-icteric sclera Eyes: Conjunctiva clear. No discharge from eyes Cardiovascular: Appears well perfused Lymphatic: No visible regional lymphadenopathy Skin: No visible rashes or ecchymosis Psychiatric: Full affect, Alert, Pleasant LUMBAR MUSCULOSKELETAL/NEURO EXAM Inspection: - Symmetric without atrophy. Healing horzontal incision BL buttocks from recent surgery (Bladder stim replacement) Posture: Slouching posture Gait: Using wheelchair Palpation: - Lumbar Paraspinal Tenderness: None in the Bilateral lumbar paraspinals - Paraspinal Spasms: None Strength: LEFT RIGHT Iliopsoas (L2) 5 5 Quadriceps (L3) 5 5 Anterior Tibialis (L4): 5 5 Exten Hallucis Longus (L5) 5 5 Gastrocnemius (S1): 5 5 Muscle Tone: - Normal and symmetric Neural Tension Signs: -Straight Leg Exam Negative Bilateral lower limb(s) -Contralateral Straight Leg Raise Negative Bilateral lower limb(s) Sensation: - intact to light touch in the L2-S2 Bilateral lower limb dermatomes Reflexes: LEFT RIGHT Patellar (L4) Decreased 1+ Decreased 1+ Achilles (S1) Decreased 1+ Decreased 1+ Clonus Negative Negative Diagnoses: (M54.42, G89.29) Chronic bilateral low back pain with left-sided sciatica (primary encounter diagnosis) (M96.1) Postlaminectomy syndrome, lumbar region (M47.812) Cervical spondylosis without myelopathy (M79.18) Myofascial pain (Z79.899) Encounter for long-term (current) use of medications Impression & Plan: 46 year old female, who presents with complaint(s) of chronic low back pain and medication refills. Reports overall she is doing well. No new concerns today. She would like to proceed with Caudal LULU. She would like to discuss SCS removal. Has not been using for the last 2 years. We will refer to Dr. Brooks or Kory for consult for options. Reports medications continue to adequately manage her pain, denies medication side effects Crys Franks would benefit from the following to decrease pain, improve function and/or work participation, and improve quality of life: Interventional Procedure(s): Caudal LULU under Fluor guidance The risks, benefits, alternative treatment options and prognosis of the procedure were discussed and all of the patient's questions/concerns were addressed to the patient's satisfaction. The patient expressed understanding and gave verbal consent to proceed. Medications: Refill: Requested Prescriptions Signed Prescriptions Disp Refills gabapentin (NEURONTIN) 600 mg tablet 90 tablet 2 Sig: Take 1 tablet by mouth three times daily for 30 days. Do not start before March 09, 2022. HYDROcodone-acetaminophen (NORCO) 5-325 mg per tablet 60 tablet 0 Sig: Take 1 tablet by mouth twice daily as needed for pain for up to 30 days. Do not start before April 01, 2022. HYDROcodone-acetaminophen (NORCO) 5-325 mg per tablet 60 tablet 0 Sig: Take 1 tablet by mouth twice daily as needed for pain for up to 30 days. Do not start before March 02, 2022. UDS, NAOIC/ORT: Reviewed and consistent, NAOIC/ORT up to date Functional Worship: No changes-continue current regimen Additional Studies: Referrals: Additional: Patient reports they are happy with current treatment care plan. At this time will continued the patient's opioids today for 60 days. The patient continues to see benefit and improvement in their quality of life with adequate analgesia and ADLS's maintained. No adverse effects, no aberrant behaviors noted; OARRS reviewed and consistent. Risks of long-term medication use was reviewed and Patient advised the above medications may cause impairment of judgement while driving or operating machinery. Patient instructed on safe storage of medications We will re-evaluate opiate regimen in 60 days, office visit, to determine efficacy of treatment to ensure that we are using the lowest dose for maximum benefit. Patient is happy and agreeable with this plan. All questions were answered and patient verbalized understanding. Depending on response to the above plan, consider: Follow-up: 2 months for medication evaluation, optimization and refill as appropriate Attribution: In addition to reviewing the information noted above, some elements copied from my most recent clinical note(s), including the physical exam (completed in entirety today), and the impression and plan sections, have been updated where appropriate. All reflect current medical decision making from today's date. Daniella Mars APRN.[facility]AN[facility] documented in this encounterSelect Medical [facility]11-08-2022 Miscellaneous Notes* Telephone Encounter - Daniella Mars APRN.CNP - 02/14/2022 1:01 PM EST OARRS reviewed, RX refills sent to her pharmacy. Follow up as scheduled Thank you, Daniella Mars APRN.CNP * Telephone Encounter - Angela Kingston - 02/13/2022 2:14 PM EST [facility] Telephone Medication Refill Request Name/dose: Baclofen 10 mg tablet Amount dispensed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 Portal Access Instructions: Stay connected with your healthcare team and access your personal medical information anytime with the [facility] Patient Portal. If you would like a full copy of your medical records please contact the [facility] Medical Records Department Sunday through Sunday between 8a.m. and 4:30p.m. Please follow the directions below to access the portal: 1.Access the email account you provided upon registration to the [facility].2.Look for an invitation email from [facility].3.Open the email and access the invitation link: Accept Invitation to [facility]4.Fill in the required white to create your account. Sign into [email or web address] with your username and password that you created in the above steps to stay up to date. You can then view a summary of results, a summary of your visits, and the ability to download your summaries to your computer or send the information securely to a physician. Remember that your healthcare information is confidential, so carefully consider who you will allow to register on the [facility] Patient Portal for access to your information. You can also access the [facility] Patient Portal on the [employer]. Simply click on Health Records under [employer] [place] and then click on the [employer] logo. HOW TO SAFELY DISPOSE OF PRESCRIPTION MEDICATIONS Please use one of the following methods to safely dispose of your unused medications. 1.Use a drug disposal kit: the drug disposal pouch allows you to safely discard your old and unuseddrugs. Ask your nurse to give you one when you are discharged.2.Visit a local take-back location: Many local pharmacies and police departments have programs that collect old and unwanted prescriptiondrugs. Call your local pharmacy or go to http://Mobilygen.Centrix/[email or web address] to find one close to you.3.Make use of household items: Use cat litter or old coffee grounds to dispose medications if other options arenot available. Mix your drugs with these household products, seal them in an airtight container andthrow it into the garbage. Call [facility]: [phone] to be sure your drugs can be disposed of in this way. Some medicines may require a different approach.4.Never flush your medications down the toilet. IF YOU HAVE BEEN PRESCRIBED AN OPIOIDS FOR PAIN If you have been prescribed an opioid (such as hydrocodone, oxycodone or morphine), it is critical to understand the possible side effects and risks of opioid pain medications. Even when taken as directed, opioids can have several side effects including: Tolerance, meaning you might need to take more of a medication for the same pain relief. Nausea, vomiting and/or constipation. Sleepiness, dizziness, dry mouth, confusion, depression or itching. Physical dependence, meaning you have withdrawal symptoms when a medication is stopped ? this can develop within a few days. KNOW YOUR RESPONSIBILITIES It is important to know exactly how much and how often to take the opioid pain medications you are prescribed. Never take opioids in higher amounts or more often than prescribed. Do not combine opioids with alcohol or other drugs that cause drowsiness, such as benzodiazepines, also known as benzos,including diazepam and alprazolam, muscle relaxants or sleep aids. Never sell or share prescriptionopioids. This is illegal. Store opioids in a secure place and out of reach of others (including children, family, friends and visitors). The last page(s) of this document has been signed and retained as a CHART COPY Signatures Patient Education Materials Abdominal Pain Medication Leaflets My discharge plan and instructions have been reviewed and explained to me and ICHRISTINA REBECCA M understand my current condition and have read and understand these discharge instructions. I have received a written copy of the plan/instructions. If I have questions, I am aware that I should contact my doctor. 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 Everyone has this pain from time to time. In many cases it goes away on its own. But abdominal pain can sometimes be due to a serious problem, such as appendicitis. So it s important to know when to get help. Causes of abdominal pain There are many possible causes of abdominal pain. Common causes in adults include: Constipation, diarrhea, or gas Stomach acid flowing back up into the esophagus (acid reflux or heartburn) Severe acid reflux, called GERD (gastroesophageal reflux disease) A sore in the lining of the stomach or small intestine (peptic ulcer) Inflammation of the gallbladder, liver, or pancreas Gallstones or kidney stones Appendicitis Intestinal blockage An internal organ pushing through a muscle or other tissue (hernia) Urinary tract infections In women, menstrual cramps, fibroids, ovarian cysts, pelvic inflammatory disease, or endometriosis Inflammation or infection of the intestines, including Crohn's disease and ulcerative colitis Irritable bowel syndrome Diagnosing the cause of abdominal pain Your healthcare provider will give you a physical exam help find the cause of your pain. If needed,you will have tests. Belly pain has many possible causes. So it can be hard to find the reason for your pain. Giving details about your pain can help. Tell your provider where and when you feel the pain, and what makes it better or worse. Also let your provider know if you have other symptoms such as: Fever Tiredness Upset stomach (nausea) Vomiting Changes in bathroom habits Blood in the stool or black, tarry stool Weight loss that you can't explain (involuntary weight loss?) Also report any family history of stomach or intestinal problems, or cancers. Tell your provider about all your alcohol use and drug use. Tell your provider about all medicines you use, including herbs, vitamins, and supplements. Treating abdominal pain Some causes of pain need emergency medical treatment right away. These include appendicitis or a bowel blockage. Other problems can be treated with rest, fluids, or medicines. Your healthcare provider can give you specific instructions for treatment or self-care based on what is causing your pain. If you have vomiting or diarrhea, sip water or other clear fluids. When you are ready to eat solid foods again, start with small amounts of cwra-mg-jtddio, low- fat foods. These include apple sauce, toast, or crackers. When to get medical care Call 911 or go to the hospital right away if you: Can t pass stool and are vomiting Are vomiting blood or have bloody diarrhea or black, tarry diarrhea Have chest, neck, or shoulder pain Feel like you might pass out Have pain in your shoulder blades with nausea Have sudden, severe belly pain Have new, severe pain unlike any you have felt before Have a belly that is rigid, hard, and hurts to touch Call your healthcare provider if you have: Pain for more than 5 days Bloating for more than 2 days Diarrhea for more than 5 days A fever of 100.4 F (38 C) or higher, or as directed by your healthcare provider Pain that gets worse Weight loss for no reason Continued lack of appetite Blood in your stool How to prevent abdominal pain Here are some tips to help prevent abdominal pain: Eat smaller amounts of food at each meal. Don't eat greasy, fried, or other high-fat foods. Don't eat foods that give you gas. Exercise regularly. Drink plenty of fluids. To help prevent GERD symptoms: Quit smoking. Reduce alcohol and foods that increase stomach acid. Don't use aspirin or idne-ndl-nwquayy pain and fever medicines, if possible. This includes nonsteroidal anti-inflammatory drugs (NSAIDs). Lose excess weight. Finish eating at least 2 hours before you go to bed or lie down. Raise the head of your bed. [id number] [employer]. [address] [place] [address], [place] [address]. All rights reserved. This information is not intended as a substitute for professional medical care. Always follow yourhealthcare professional's instructions. Follow Up Care 12/03/2021 19:30:54 With:Go to emergency room if symptoms worsen Address:Unknown When:2-4 days With:KATHERINE MUNOZ MD Address: [address] [place] [address] [facility] [place] [address] [phone] When:2-4 days [facility] 08-27-2022 Evaluation + Plan note Diagnostic Tests Pending * Urine Culture 12/03/21 [facility] 08-22-2022 Miscellaneous Notes* Telephone Encounter - Julisa Jimenez LPN - 11/28/2021 12:32 PM EDT Pharmacy requesting the following refill. Requested Prescriptions Pending Prescriptions Disp Refills hydrOXYchloroQUINE (PLAQUENIL) 200 mg tablet [Pharmacy Med Name: Hydroxychloroquine Sulfate 200MG TABS] 56 tablet Sig: TAKE 1 TABLET BY MOUTH TWICE A DAY Patient last appointment: 11/03/2021 Next Appointment: 05/08/2022 Patient Phone numbers: [phone] (home) Request is for script(s) to be escript to pharmacy. [facility] [place] [facility] [address] [address] [place] [address] - [address] - [phone] Julisa Jimenez LPN documented [facility] History of Present illness Narrative* Trish Adames MD - 11/03/2021 11:10 AM EDT RHEUMATOLOGY PROGRESS NOTE Patient is here for a follow up visit for Patient presents with: Rheumatoid Arthritis: no refills HPI: Crys Franks is a 46 year old female who presents joint pain. Steroids helped with swelling in hands. Brief Rheumatological history - More shoulder and hand pain. Hands feels numb. Right MCP 3 swelling. Patient is referred to us by PCP for elevated PAT and atypical pANCA. Joint pain x years. all my joints. Swelling in joints. Pain is more in the mornings. AM stiffness lasting for few hours. She sees pain management. On Celebrex, gabapentin, baclofen, Floriss[place], Voltaren gel, Topamax, Cymbalta. Back inj, spine surgery. Bladder and spine stimulator. Pain is worse. She was having RUQ pain, kidney problems kidney stones, infections. Several surgeries - right shoulder, appe, total hysterectomy, BSO, left knee, hernia. Twins are 14 years old. Family h/o autoimmune disease - cousin, grandmother with lupus, mother and father with psoriasis. Mother also had crohn's disease Smoking - ex smoker Rheumatology REVIEW OF SYSTEMS: Constitutional: Recent Weight Change: YES lost 20 lb, unintentional due to nausea, vomiting. Seen GI. Scopes. esophagitis. On Protonix. Fatigue: YES Fever: No Night sweats: YES Heent: Alopecia: No H/o Inflammatory eye disease (iritis/scleritis): No Hearing loss: No Frequent sinusitis: No Oral ulcers: No Sicca: No Parotid swelling: No Hoarseness: No Dysphagia: No Heme/lymph: Lymphadenopathy: No Hematological abnormalities (anemia, thrombocytopenia, leukopenia): No Abnormal bleeding: No Skin: Malar or discoid lesions: No Photosensitivity: No Other rashes: No Raynaud's phenomenon: YES tingling. CTS Hives: No Tightness: No Nodules/bumps: No Easy Bruising: No Nail changes: No H/o psoriasis: No Gastroenterology: As above Respiratory: Dry cough/SOB: No Cardiovascular: Pain in chest: No Musculoskeletal: Per HPI Joint pain or swelling: No Prolonged morning stiffness: No Back pain or neck pain: No Muscle weakness: No Genitourinary: Vaginal dryness: No Rash/ulcers: No Neurological: Headaches: YES Sensitivity or pain of hands and/or feet: YES Psychiatry: Anxiety: YES Depression: YES Poor sleep: YES multiple awakenings. 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, cannot say what type Colon polyps Depression Diverticulosis Failed back syndrome H/O degenerative disc disease Hypertension Interstitial cystitis Kidney stones Post laminectomy syndrome Schizophrenia, acute (HCC) WITH AUDITORY HALLUCINATIONS Seizure (HCC) last seizure 2012 Stroke (HCC) Dec 2012 PAST SURGICAL HISTORY Procedure Laterality Date APPENDECTOMY 2013 COLONOSCOPY 11/08/2016 diverticulitis sigmoid colon COLONOSCOPY - DIAGNOSTIC 06/21/2020 normal exam, no specimens EGD 11/12/2016 chronic gastritis, duodenal erosions, neg biopsies, neg H Pylori EGD 02/02/2000 short segment Garay's esophagus EGD 06/21/2020 bilious gastric fluid, reactive gastropathy on biopsy, neg. H. pylori F SIGMOIDOSCOPY FLEX DIAG 11/12/2017 1 cm rectal mass 0-1 cm from anal verge no biopsy FOOT SURGERY HX Left 12/03/2020 HYSTERECTOMY HX 2010 KNEE SURGERY HX Left LUMBAR SPINE FUSION COMBINED 2016 PART REMV BLADDER,SIMPLE 09/2021 Stimulator PAST SURGICAL HISTORY OF 2007 and 2006 x 2 PAST SURGICAL HISTORY OF bladder surgery x13 last one in 2016 PAST SURGICAL HISTORY OF Right 2011 shoulder surgery PAST SURGICAL HISTORY OF 2012 bilateral - feet REPAIR EPIGASTRIC HERNIA,REDUC History Review: I have reviewed and modified as needed, the following during this visit: Allergies,Past Medical History, Past Surgical History, Past Family History, Past Social History. BP 100/64 (BP Site: Right Arm, BP Position: Sitting) Pulse 76 Temp 36.3 C (97.3 F) Ht 167.6 cm (5' 6) Wt 94.1 kg (207 lb 8 oz) SpO2 95% BMI 33.49 kg/m Physical Exam GENERAL: Well appearing, alert, comfortable, in no acute distress, well- hydrated, well nourished. HEENT: Negative for external ears normal. Canals are clear. Both TMs visualized and are normal. EyeExam normal. External nose normal, no nasal ulcer or throat ulcer. NECK: NECK Supple, no adenopathy; thyroid symmetric, normal size, no bruits CARDIAC: regular rate and rhythm, No murmur asculated. and Equal peripheral pulses RESPIRATORY: Lungs clear to auscultation. No wheezing, rhonchi, rales VASCULAR: RRR without murmur, gallop, or rubs. No ectopy. NEURO: Motor and sensory exam normal MOTOR: Normal; including tone, gait, stressed gait, power and coordination. SKIN: Negative for alopecia, skin rash, malar rash, skin lesion, skin ulcer, pits, thickening, color changes, telangiectasias, nail changes, nail ridging, nail pitting, onycholysis MUSCULOSKELETAL: DIPS: Normal PIPS: Normal MCPs: Normal Wrists: Normal Elbows: Normal Shoulders: Normal C-Spine: Normal Hips: Normal Knees: Normal Ankles: Normal MTPs / Toes: Normal Arches: Normal Lab Results: Glucose 154 10/21/2021 ALT 11 10/21/2021 WBC 5.27 10/21/2021 HGB 14.2 10/21/2021 Platelet Count 191 10/21/2021 Serology: Radiology: IMPRESSION: Normal right shoulder radiographs RESULT: 4 views of the cervical spine demonstrate multilevel degenerative change with vertebral body osteophytosis and disc space narrowing, greatest at C3-4 and anteriorly at C6-7. 1 to 2 mm anterolisthesis of C4 on C5 and C5 on C6 with intact spinolaminal line suggesting degenerative etiology. There are no vertebral body compression deformities and alignment is otherwise well maintained. Bilateral obliques demonstrate the foramina maintained. The atlantoaxial interval and craniocervical junction are intact. There is no prevertebral soft tissue abnormality. IMPRESSION: 1. Relatively minimal degenerative changes as detailed above. No significant central canal stenosis. Mild foraminal stenosis as detailed. 2. Prior surgical changes as detailed above. 3. No evidence of fracture 4. No specific abnormality is seen within the visualized portions around the spinal stimulating generator pack. This area was incompletely included. Further assessment as clinical symptoms warrant. RESULT: Standing frontal, oblique and lateral views of the bilateral feet no acute osseous, articular or soft tissue process. Mild hallux valgus is present with remote bunionectomy changes. There has been prior arthrodesis of the first metatarsal tarsal articulations bilaterally. Visualized surgical hardware is intact and there is no radiographic evidence for loosening or superimposed fracture. Joint spaces are preserved and there are no erosive or bony destructive Changes. RESULT: 2 views of the SI joints show no acute osseous, articular or soft tissue abnormality. SI joints are patent without ankylosis or marginal erosion. The visualized bony pelvic ring is intact and the hips are bilaterally symmetric without significant joint space narrowing. Neurostimulator terminates in the left aspect of the mid to distal sacrum. Lead appears intact. Neurostimulator also seen overlying the right iliac crest. Visualized leads are intact. Assessment and Plan (R76.8) PAT positive (primary encounter diagnosis) (M19.90) Inflammatory arthritis (M32.9) Systemic lupus erythematosus, unspecified SLE type, unspecified organ involvement status (HCC) Patient with joint pain and family h/o autoimmune disease. She reports joint pain, swelling, raynaud's phenomenon. She was noted to have positive PAT and pANCA. Positive PAT, dsDNA, CCP. Likely lupus causing inflammatory arthritis, overlap CTD. pred helped with synovitis right MCP 3. starting Plaquenil. Discussed risks and benefits including possible interactions with her other meds. Advised that neck and back pain is DJD which is not going to respond to Plaquenil. She sees pain management. May need further testing - crithidia DNA, hep panel, TB test. Close follow up. No orders found for this visit on 11/03/21. Medication orders placed this encounter hydrOXYchloroQUINE (PLAQUENIL) 200 mg tablet Sig: Take 1 tablet by mouth twice daily. Dispense: 60 tablet Refill: 1 Return in about 6 months (around 05/06/2022). Trish Adames MD documented in this encounter[facility] History of Present illness Narrative* Isa Longoria, RT(R) - 10/21/2021 10:00 AM EDT Radiology Service Progress Note PATIENT NAME: Crys Franks DATE OF SERVICE: October 21, 2021 TIME: 10:07 AM PATIENT IDENTITY VERIFICATION COMPLETED USING TWO (2) IDENTIFIERS: Name and Date of confirmedby patient verbally. FALL SCREENING: Has the patient had 2 falls in the last year or 1 fall with injury or currently using an Ambulatory Assistive Device (Walker, Cane, Wheelchair, Crutches, etc.)? Yes, Patient High Riskfor Falls What interventions were put in place to prevent falls during this visit? Instructed Patient to Callfor Help if Needed, Offered Assistance with Transfers/Clothing, Instructed Patient to Remain Seated(Not on Exam Table) Until Exam, Increased Observations by Caregivers and Patient Refused Interventio ns/Assistance PATIENT GENDER DATA: Female. status: : No status: NO. PATIENT RELEVANT IMPLANT DATA REVIEWED: Not Applicable RADIOLOGY DEPARTMENT: General X-ray: Exam(s) Completed: Pelvis X-Ray: sacroiliac joints Lower Extremity X-Ray(s): Feet, Bilateral and Wt. Bearing Upper Extremity X-Ray(s): Hand, bilateral PERIPHERAL IV DATA: Not applicable SIGNED BY: RT Karla(R) October 21, 2021 10:07 AM documented in this encounterSelect [facility] History of Present illness Narrative* Tricia Daniel MA - 10/20/2021 1:27 PM EDT Review of Systems Constitutional: Negative for activity change, chills, fever and unexpected weight change. Gastrointestinal: Negative for bowel retention or incontinence Genitourinary: Positive for difficulty urinating. Negative for bladder retention or incontinence Musculoskeletal: Positive for arthralgias, back pain, gait problem, joint swelling, myalgias, neck pain and neck stiffness. Neurological: Positive for weakness, numbness and headaches. Psychiatric/Behavioral: Positive for sleep disturbance. Negative for dysphoric mood and suicidal ideas. The patient is not nervous/anxious. * Forest Dos Santos MD - 10/20/2021 12:32 PM EDT Images from the original note were not included. [facility] Name: Crys Franks : 1975 Purpose: Follow-Up Evaluation * Today's Date: 10/20/2021 Most recent visit date: 08/18/2021 Chief Complaint (reason for call): low back pain Interval History: Since last encounter, Crys Franks reports that the chronic problem(s) of low back pain are Unchanged. She has constant pain in her axial low back, radiates into the buttocks, posterior thighs, calves and feet. She also right upper limb pain. She has a revision reconstructive surgery on the left foot with a surgeon from an outside health system on 05/20/2021, initial surgery was 03/18/2021. She reports that the foot is healing slowly. She is wearing a walking boot. She reports there is some discoloration of the dorsum of the foot. She weans out of the boot in September into a post-op shoe vs a firm-soled shoe. Flexeril switched to Baclofen, much improved in spasms since making the change. She was switched from Tramadol to Hydrocodone to cycle her opioids, she has better pain relief, butshe has gaps during the day. Overall, more satisfied with Hydrocodone. She continues taking Neurontin. At her last visit, a Caudal LULU was recommended, delayed due to having a bladder stimulator placed a month ago. Concern for possibly needing a pocket revision. She was in ED two weeks ago for Pancreatitis, was given IV Morphine in the ED. Continues to have right wrist pain, Electrodiagnostic Study showed carpal tunnel syndrome. She was referred for an updated Electrodiagnostic Study, also referred to Ortho for carpal tunnel release, delayed due to bladder stim placement. Recall: SCS was [place] [address] Sabillon ([facility]), helped initially, but 18 months ago, no longer provided relief. Turned off. She has had one spinal fusion prior to SCS placement. She had right shoulder surgery around 2014, for bone spurs and a torn rotator cuff. Electrodiagnostic Study showed carpal tunnel. As a result of neuropathy (reportedly diagnosed remotely by Electrodiagnostic Study), particularly in the left lower limb, she uses a wheelchair for community ambulation. She has had frequent falls and has weakness in the left lower limb. She uses a walker around the house. Current Status: Opioid Medications requiring refills today: Hydrocodone Date last filled: 09/22/2021 Quantity filled: 60 How many left: 11 Time most recent dose taken: 1pm Non-Opioid Medications requiring refills today: Baclofen 10mg TID Neurontin 600mg TID Pain Medications from other providers: Cymbalta 60mg BID Topamax 200mg BD Celebrex 200mg qHS OTC Meds: Tylenol 500mg and Ibuprofen 200mg OTC - takes 2 of each per day Compliance: Safety Checklist: Are you taking proper precautions to safe guard your medication? Yes Taking the medications as prescribed? Yes Getting pain medications from another physician? No Obtaining pain medication from another source? No Sharing medications with friends/family? No Quality of life improved as a result of taking these medications? Yes Any side effect with this medication? No Justification for Continued Opioid Care: Adequate analgesia? Yes Aberrant drug seeking behavior? No Adverse reactions? No Medications improve quality of life? Yes Functional Goals: To remain active and independent Compliance: PDMP website checked and validated. All prescriptions have been APPROPRIATELY filled. No suspicious activity was identified. by Forest Dos Santos MD 10/20/2021 Percocet 5/325, #21 (09/16/2021 - bladder stim surgery) Last Drug screen: 08/2021 (appropriate - positive Hydrocodone and breakdown products) 07/14/2021 (positive Tramadol - appropriate; positive Morphine - had been in ED day prior and received IV Morphine - appropriate) 12/2020 (positive oxycodone - confirmed per PDMP) and below threshold for Tramadol Pain Medications Taken to Date (for the chief complaint): Membrane Stabilizers: Neurontin (Gabapentin), Lyrica (Pregabalin), Cymbalta (Duloxetine) and Topamax (Topiramate) - allergy to Lyrica NSAIDS: Motrin (Ibuprofen), Naprosyn (Naproxen) and Relafen (Nabumetone) - Naproxen caused throat swelling Opioids: Tramadol, Vicodin or Florissant (Hydrocodone) and Percocet (Oxycodone) Muscle Relaxants: Flexeril (Cyclobenzaprine), Lioresal (Baclofen) and Zanaflex (Tizanidine) - Flexeril works better Topicals: none - irritate skin Other Prescription or OTC Pain Medications: Tylenol (Acetaminophen) Non-Pain Meds of Note: Abilify, Tegretol, Keppra,Trazodone, Imitrex Allergies: Allergies: Shellfish Derived Other: See Comments, Anaphylaxis Comment:THROAT SWELLING Seafood--THROAT SWELLS Venom-Honey Bee Unknown Venom-Wasp Unknown Carafate [Sucralfat* Hives Comment:Hives and Vomiting Latex Rash, Hives Adhesive Tape (Mis* Rash Aleve [Naproxen Sod* Other: See Comments Bactrim [Sulfametho* Other: See Comments Comment:severe headaches and nosebleeds Erythromycin Rash Flagyl [Metronidazo* Other: See Comments Comment:THROAT SWELLING Iodine Other: See Comments Comment:THROAT SWELL Naproxyn [Naproxen] Other: See Comments Comment:HEART STOPPED Novacaine [Procaine] Other: See Comments Comment:Does not work Ondansetron Other: See Comments Comment:headache Penicillins Other: See Comments Comment:THROAT SWELLING Pregabalin Swelling Comment:Facial swelling, very irritable Wellbutrin [Bupropi* Other: See Comments Comment:Zombie like state Current Medications, Past Medical History, Past Surgical History, Family History & Social History: Reviewed on today's date (noted above) Review of Systems: (Obtained personally on today's date, noted above): Pertinent Positives: MSK - pain in the region being treated Neuro: weakness or numbness in the region being treated Skin: Negative (No itching) Eyes: Negative (No blurred or double vision) Respiratory: Negative (No Cough, Ualsrwjoc-sn-udlpsb, Dyspnea on exertion, wheezing) Cardiovascular: Negative (No Chest Pain, Tightness, Pressure, Palpitations) Gastrointestinal: Negative (No Abdominal pain, Nausea, Vomiting, Constipation, Diarrhea) Genitourinary: Negative (No dysuria) Hematologic: Negative (No bleeding, bruising) OB: is Denied or Not Applicable Endocrine: Negative (No hot/cold intolerance) Psychiatric: Negative (No depression, anxiety or suicidal ideation) Diagnostic Studies: Reviewed Personally on today's date, noted above MRI Spine Report No resulted procedures found. X-ray right shoulder 07/2021: Normal right shoulder radiographs. X-ray C-spine 07/2021: 4 views of the cervical spine demonstrate multilevel degenerative change withvertebral body osteophytosis and disc space narrowing, greatest at C3-4 and anteriorly at C6-7. 1 to 2 mm anterolisthesis of C4 on C5 and C5 on C6 with intact spinolaminal line suggesting degenerative etiology. There are no vertebral body compression deformities and alignment is otherwise well maintained. Bilateral obliques demonstrate the foramina maintained. The atlantoaxial interval and craniocervical junction are intact. There is no prevertebral soft tissue abnormality. Electrodiagnostic Study 07/2020: Mild to moderate right carpal tunnel syndrome CT L-Spine 08/2018: Bone marrow /fracture: No evidence of a lytic or blastic process in the visualized spine. Prior discectomy and fusion of L5-S1 from an anterior approach. There are bilateral L5 pars defects. No anterolisthesis. No evidence of fracture. Paraspinal soft tissues: There is a spinal stimulator present. The battery pack is within the rightposterior subcutaneous soft tissues. This is incompletely included on the exam. No obvious abnormality surrounds the generator pack. The lateral leads enters the spine through the T12-L1 interlaminar space. The visualized portions of the leads appear to be intact. Lower thoracic spine: The visualized lower thoracic bony canal and foramina are patent. T12-L1: Canal and foramina are patent. L1-L2: Canal and foramina are patent. L2-L3: Canal and foramina are patent L3-L4: Mild broad-based posterior disc bulging. No significant central canal stenosis. Mild bilateral foraminal stenosis. L4-L5: Mild generalized disc bulge. No significant central canal stenosis. Mild appearing bilateralforaminal stenosis. L5-S1: Prior discectomy. No recurrent disc protrusion or central canal stenosis. No foraminal stenosis. Sacrum and iliac wings: The visualized sacrum and iliac wings are within normal limits. IMPRESSION: 1. Relatively minimal degenerative changes as detailed above. No significant central canal stenosis. Mild foraminal stenosis as detailed. 2. Prior surgical changes as detailed above. 3. No evidence of fracture 4. No specific abnormality is seen within the visualized portions around the spinal stimulating generator pack. This area was incompletely included. Further assessment as clinical symptoms warrant. DATE PROCEDURE % OF IMPROVEMENT (DURATION) None to date at this practice Physical Exam: 10/20/21 1330 Pulse: 93 Resp: 16 SpO2: 96% Eyes: Conjunctiva clear. No discharge from eyes Cardiovascular: Appears well perfused Lymphatic: No visible regional lymphadenopathy Skin: No visible rashes or ecchymosis Psychiatric: Full affect, Alert, Pleasant No pain to palpation over the lumbar paraspinals, able to flex 50% without pain. Concordant pain to palpation along the anterior abdominal wall, base of the anterior right rib cage. Positive Tinel, Phalen and Median nerve compression at the right > left carpal tunnel Diagnoses: (M96.1) Postlaminectomy syndrome, lumbar region (M47.812) Cervical spondylosis without myelopathy (M54.42, G89.29) Chronic bilateral low back pain with left-sided sciatica Impression: 46 year old female with significant past medical history for seizure disorder on multiple anti seizure agents, migraines (with Imitrex for breakthrough), right shoulder osteoarthritis, right carpal tunnel syndrome, axial low back pain and bilateral radicular pain in setting of peripheral neuropathy and failed lumbar syndrome (prior decompression, with SCS in place that is turned off due to lack of efficacy), minimally ambulatory, who presents with complaint(s) of ongoing pain. Plan: Crys Franks would benefit from the following to reach personal goals for decreasing pain, improving function and work participation, and/or improving quality of life: -Interventional Procedure: Caudal Epidural Steroid Injection under fluoroscopic guidance - will obtain when bladder stimulator resolved The risks, benefits, alternative treatment options and prognosis of the procedure were discussed and all of the patient's questions/concerns were addressed to the patient s satisfaction. The patient expressed understanding and gave verbal consent to proceed. Medication(s): [place]iss[place] 5/325, #60/mo - continue, can take half pill BID and 1 pill qHS - refill Neurontin 600mg TID - continue Baclofen 10mg TID - continue Celebrex 200mg qHS - continue Limit OTC Ibuprofen to 400mg daily Continue Tylenol OTC Additional Studies: UDS Today Electrodiagnostic Study left carpal tunnel syndrome - will obtain when bladder stimulator resolved Ortho referral for carpal tunnel syndrome on right - will obtain when bladder stimulator resolved OIC: The opioid informed consent was reviewed and signed by the patient and a copy was offered (10/2021) Referrals: No additional considerations at present Functional Worship: No changes-continue current regimen Depending on response to the above-mentioned plan of care, in the future may consider evaluation for: Right shoulder injection; ultrasound guided injection abdominals at base of right rib cage -Follow-up: 2 months Attribution: In addition to reviewing the information noted above, some elements copied from my most recent clinical note(s), including the physical exam (completed in entirety today), and the impression and plan sections, have been updated where appropriate. All reflect current medical decision making from today's date. Forest Dos Santos MD, [facility] documented in this encounterSelect [facility] Hospital Discharge instructions Patient Education 09/28/2021 18:08:59 Low-Residue Diet Low-Fiber Diet Eggs are high in protein and easy to digest. Eating a low-fiber diet means eating foods that don t have much fiber. These foods are easy to digest. Most of the fiber that you eat passes undigested through your bowel. This is what forms stool. Low-fiber foods can help to slow down your bowel movements. When you eat a low-fiber diet, you have fewer stools. This lets your intestine rest. Your healthcare provider will tell you how long you need to be on this diet. It may only be for a short time. Low-fiber foods often don t give you all the nutrients you need to stay healthy. Your healthcare provider may have you take certain vitamins while you are on this diet. Reasons to eat a low-fiber diet The goal of a low-fiber diet is to limit the size and number of your stools. It may be prescribed if you: Are going through chemotherapy or radiation treatments Have had intestinal surgery Have a condition that affects your intestine, such as irritable bowel syndrome, Crohn s disease, ulcerative colitis, or diverticulitis General guidelines for a low-fiber diet In general, a low-fiber diet means having fewer than 13 grams of fiber a day. Your healthcare provider may give you a list of things you can and can t eat or drink. Read food labels. Choose foods anddrinks that have as close to zero grams of fiber as possible. Here are general guidelines to follow: Breads, pasta, cereal, rice, and other starches (6 to 11 servings daily) What to choose: white bread, biscuits, muffins, and white rolls; plain crackers; waffles; white pasta; white rice; cream of wheat; grits; white pancakes; corn flakes; cooked potatoes without skin. Fiber content of these foods should be less than 0.5 (1/2) gram per serving. What to avoid: whole-wheat or whole-grain breads, crackers, and pasta; breads with seeds or nuts; wheat germ; bibi crackers; cornbread; wild or brown rice; cereals with whole-grain, bran, and granola; cereals with seeds, nuts, coconut, or dried fruit; potatoes with skin Milk and dairy (2 servings daily) What to choose: milk, buttermilk; yogurt or ice cream without seeds or nuts; custard or pudding; sour cream; cheese and cottage cheese What to avoid: ice cream and yogurt with seeds, nuts, or fruit chunks Fruit (2 to 4 servings daily) What to choose: ripe banana; ripe nectarine, peach, apricot, papaya, and plum; soft honeydew melon and cantaloupe; cooked or canned fruit without skin or seeds (not sweetened with sorbitol); applesauce; strained fruit juice (without pulp) What to avoid: raw or dried fruit; all berries; raisins; canned and raw pineapple; prunes and prunejuice; fruit juice with pulp Vegetables (3 to 5 servings daily) What to choose: well-cooked or canned vegetables without seeds, such as spinach, eggplant, green and wax beans, carrots, yellow squash, pumpkin; lettuce on a sandwich What to avoid: all raw or steamed vegetables; vegetables with seeds, such as unstrained tomato sauce; green peas; branch beans; broccoli; corn; parsnips Meats and protein (4 to 6 ounces daily) What to choose: tender, well-cooked meat, including ground meat, poultry, and fish; eggs; tofu; creamy peanut butter What to avoid: tough, chewy meat with gristle; peas, including split, yellow, and black-eyed; beans, including navy, branch, black, garbanzo, soy, clay, and lentil; peanuts and crunchy peanut butter Fats, oils, sauces, condiments (fewer than 8 teaspoons daily) What to choose: butter, margarine, oils, whipped cream, sour cream, mayonnaise, smooth dressings and sauces; plain gravy; smooth condiments What to avoid: dressing with seeds or fruit chunks; pickles and relishes Other foods and drinks What to choose: water; plain gelatin; plain puddings; pretzels; plain cookies and cakes; honey, syrup; decaffeinated drinks, including tea and coffee What to avoid: popcorn; potato chips; spicy foods; fried, greasy foods; alcohol (ask your healthcare provider); marmalade, jam, and preserves; desserts that have seeds, nuts, coconut, dried fruit, whole grains, or bran; candy that has seeds or nuts; drinks sweetened with sorbitol or other sugar substitutes; caffeinated drinks, including tea, coffee, soda, and energy drinks [id number] [employer]. [address] [place] [address], [place] [address]. All rights reserved. This information is not intended as a substitute for professional medical care. Always follow yourhealthcare professional's instructions. 09/28/2021 18:08:45 Pancreatitis Pancreatitis The pancreas is an organ in the abdomen that secretes digestive juices into the stomach. Pancreatitis is an inflammation of the pancreas. In many cases, it is caused when the duct that connects the pancreas and gallbladder is blocked by a gallstone. Heavy alcohol use is another major cause. Less common causes can include medicines, trauma, certain medical procedures, viruses, and toxins. Sometimes the cause of pancreatitis cannot be found. Genetic testing is sometimes done in those cases, especially if there is a family history of pancreas disease. Symptoms of pancreatitis include: Severe abdominal pain Nausea and vomiting Severe indigestion Racing heart Fever If the pancreatitis becomes chronic, diarrhea, chronic pain, weight loss, and poor nutrition can result. At first, pancreatitis may be treated in the hospital. It may be diagnosed by history, exam, blood tests, and sometimes imaging studies. There, fluids and medicines can be provided. The underlying cause of the problem must also be treated to prevent further problems. If gallstones are the cause, you and your healthcare provider can discuss options for treating them. This usually results in gallbladder surgery. Sometimes another test must be done to clear the drainage ducts of a blocked gallstones. If alcohol is the cause, talk with your healthcare provider about a program to help you stop drinking. Home care Don't drink alcohol. Rest in bed or sit up in a chair until you feel better. Take medicines as prescribed. If you were given an antibiotic for infection, take it until it is gone, even if you feel better. Let your healthcare provider know if you vomit up your medicine. Tips for eating and drinking: If instructed, avoid eating or drinking until nausea and vomiting go away. Try sipping clear liquids to prevent dehydration. When you begin eating again, start with small amounts. Have small, more frequent meals rather than larger meals. Low fat meals are best. Follow-up care Follow up with your healthcare provider as advised. When to seek medical advice Call your healthcare provider right away for any of the following: Continued or worsening pain Repeated vomiting Dizziness, weakness Fever of 100.4 F (38 C) or higher, or as directed by your healthcare provider Severe muscle cramps Call 911 Call 911 if you have any of the following: Vomiting blood or large amounts of blood in stool Seizure Loss of consciousness [id number] [employer] [place] [address]. All rights reserved. This information is not intended as a substitute for professional medical care. Always follow yourhealthcare professional's instructions. Follow Up Care 09/28/2021 15:53:23 With:KATHERINE MUNOZ MD Address: [address] [place] [address] [place] [address]- [phone] When:2-4 days [facility] 06-22-2022 History of Present illness Narrative* Trish Adames MD - 09/28/2021 8:30 AM EDT VIRTUAL VISIT PROGRESS NOTE This is a virtual visit using [employer] [facility] video visit. It required patient-provider interaction for themedical decision making as documented below. Crys Franks is a 46 year old female seen for joint pain. Patient is referred to us by PCP for elevated PAT and atypical pANCA. Joint pain x years. all my joints. Swelling in joints. Pain is more in the mornings. AM stiffness lasting for few hours. She sees pain management. On Celebrex, gabapentin, baclofen, Floriss[place], Voltaren gel, Topamax, Cymbalta. Back inj, spine surgery. Bladder and spine stimulator. Pain is worse. She was having RUQ pain, kidney problems kidney stones, infections. Several surgeries - right shoulder, appe, total hysterectomy, left knee, hernia. Family h/o autoimmune disease - cousin, grandmother with lupus, mother and father with psoriasis. Mother also had crohn's disease Smoking - ex smoker Rheumatology REVIEW OF SYSTEMS: Constitutional: Recent Weight Change: YES lost 20 lb, unintentional due to nausea, vomiting. Seen GI. Scopes. esophagitis. On Protonix. Fatigue: YES Fever: No Night sweats: YES Heent: Alopecia: No H/o Inflammatory eye disease (iritis/scleritis): No Hearing loss: No Frequent sinusitis: No Oral ulcers: No Sicca: No Parotid swelling: No Hoarseness: No Dysphagia: No Heme/lymph: Lymphadenopathy: No Hematological abnormalities (anemia, thrombocytopenia, leukopenia): No Abnormal bleeding: No Skin: Malar or discoid lesions: No Photosensitivity: No Other rashes: No Raynaud's phenomenon: YES tingling. CTS Hives: No Tightness: No Nodules/bumps: No Easy Bruising: No Nail changes: No H/o psoriasis: No Gastroenterology: As above Respiratory: Dry cough/SOB: No Cardiovascular: Pain in chest: No Musculoskeletal: Per HPI Joint pain or swelling: No Prolonged morning stiffness: No Back pain or neck pain: No Muscle weakness: No Genitourinary: Vaginal dryness: No Rash/ulcers: No Neurological: Headaches: YES Sensitivity or pain of hands and/or feet: YES Psychiatry: Anxiety: YES Depression: YES Poor sleep: YES multiple awakenings. H/o loss: No H/o thrombosis: No Increased susceptibility to infection: No HISTORY REVIEWED (electronic chart updated): PAST MEDICAL HISTORY Diagnosis Date Anal fissure Anxiety Arthritis Back pain 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, cannot say what type Colon polyps Depression Diverticulosis Failed back syndrome Hypertension Interstitial cystitis Kidney stones Post laminectomy syndrome Schizophrenia, acute (HCC) WITH AUDITORY HALLUCINATIONS Seizure (HCC) last seizure 2012 Stroke (HCC) Dec 2012 PAST SURGICAL HISTORY Procedure Laterality Date APPENDECTOMY 2013 COLONOSCOPY 11/08/2016 diverticulitis sigmoid colon COLONOSCOPY - DIAGNOSTIC 06/21/2020 normal exam, no specimens EGD 11/12/2016 chronic gastritis, duodenal erosions, neg biopsies, neg H Pylori EGD 02/02/2000 short segment Garay's esophagus EGD 06/21/2020 bilious gastric fluid, reactive gastropathy on biopsy, neg. H. pylori F SIGMOIDOSCOPY FLEX DIAG 11/12/2017 1 cm rectal mass 0-1 cm from anal verge no biopsy FOOT SURGERY HX Left 12/03/2020 HYSTERECTOMY HX 2010 KNEE SURGERY HX Left LUMBAR SPINE FUSION COMBINED 2016 PAST SURGICAL HISTORY OF 2007 and 2006 x 2 PAST SURGICAL HISTORY OF bladder surgery x13 last one in 2016 PAST SURGICAL HISTORY OF Right 2011 shoulder surgery PAST SURGICAL HISTORY OF 2012 bilateral - feet REPAIR EPIGASTRIC HERNIA,REDUC FAMILY HISTORY Problem Relation Age of Onset Diabetes Mother Stroke Mother other (dementia) Mother Arthritis Father other (fibromyalgia) Father Cancer Sister Cancer Brother Diabetes Brother Heart Brother Stroke Maternal Grandmother Social History Tobacco Use Smoking status: Current Some Day Smoker Packs/day: 0.50 Years: 20.00 Pack years: 10.00 Types: Cigarettes Last attempt to quit: 2014 Years since quittin.4 Smokeless tobacco: Never Used Vaping Use Vaping Use: Never used Substance Use Topics Alcohol use: No Drug use: No Current Outpatient Medications Medication Sig celecoxib (CELEBREX) 200 mg capsule TAKE 1 CAPSULE BY MOUTH DAILY gabapentin (NEURONTIN) 600 mg tablet Take 1 tablet by mouth three times daily for 180 days. baclofen (LIORESAL) 10 mg tablet TAKE 1 PILL BY MOUTH UP TO 3 TIMES PER DAY NEEDED FOR PAINFUL MUSCLE SPASMS HYDROcodone-acetaminophen (NORCO) 5-325 mg per tablet Take 1 tablet by mouth twice daily as needed for pain for up to 30 days. Do not start before August 20, 2021. HYDROcodone-acetaminophen (NORCO) 5-325 mg per tablet Take 1 tablet by mouth twice daily as needed for pain for up to 30 days. Do not start before September 19, 2021. diclofenac (VOLTAREN ARTHRITIS PAIN) 1 % topical gel Apply 4 g to affected area four times daily. famotidine (PEPCID) 20 mg tablet TAKE 1 TABLET BY MOUTH DAILY (Patient not taking: Reported on 07/14/2021) pantoprazole DR (PROTONIX) 40 mg tablet TAKE 1 TABLET BY MOUTH DAILY 30 MINUTES BEFORE A MEAL fluticasone (FLONASE) 50 mcg/actuation nasal spray fluticasone Fluticasone Propionate Active 2 SPRAY INTRANASAL DAILY 15.8 June 10, 2020 9:23am administer into each nostril 06-10-2020 [facility] ([id number]) ondansetron orally disintegrating (ZOFRAN ODT) 4 mg disintegrating tablet 4 mg. prazosin (MINIPRESS) 5 mg cap bisacodyl EC (DULCOLAX) 5 mg EC tablet Bisacodyl Bisacodyl Active 5 MG PO AT BEDTIME June 10, 2020 8:55am 06-10-2020 [facility] ([id number]) (Patient not taking: Reported on 07/14/2021) UROGESIC-BLUE 81.6-40.8-0.12 mg tab (Patient not taking: Reported on 08/18/2021 ) polyethylene glycol 3350 (MIRALAX, GLYCOLAX) 17 gram/dose powder POLYETHYLENE GLYCOL 3350 Polyethylene Glycol 3350 Active 17 G PO DAILY June 10, 2020 8:56am 06-10-2020 [facility] ([id number]) hydrOXYzine pamoate (VISTARIL) 50 mg capsule ARIPiprazole (ABILIFY) 30 mg tablet polyethylene glycol 3350 (MIRALAX, GLYCOLAX) 17 gram/dose powder Use as directed for Miralax / Gatorade Bowel Prep Kit Gatorade Sports Drink Use as directed for Miralax / Gatorade Bowel Prep Kit (Patient not taking: Reported on 07/14/2021 ) Bisacodyl (DULCOLAX) 5 mg tab Use as directed for Miralax / Gatorade Bowel Prep Kit (Patient not taking: Reported on 07/14/2021 ) SUMAtriptan (IMITREX) 50 mg tablet Take 50 mg by mouth as needed. traZODone (DESYREL) 100 mg tablet Take 200 mg by mouth daily at bedtime. DULoxetine (CYMBALTA) 30 mg capsule Take 30 mg by mouth once daily. topiramate (TOPAMAX) 200 mg tablet Take 200 mg by mouth twice daily. montelukast (SINGULAIR) 10 mg tablet Take 10 mg by mouth daily at bedtime. methenam/sod phos/mblue/hyoscy (UROGESIC-BLUE ORAL) Take by mouth. (Patient not taking: Reported on 08/18/2021 ) dicyclomine (BENTYL) 10 mg capsule TAKE 1 CAPSULE BY MOUTH FOUR TIMES A DAY BEFORE MEALS AND AT BEDTIME levETIRAcetam (KEPPRA) 500 mg tablet TAKE 1 TABLET BY MOUTH TWICE A DAY simvastatin (ZOCOR) 20 mg tablet Take 1 tablet by mouth daily at bedtime. promethazine (PHENERGAN) 25 mg tablet take 1 tablet by mouth every 6 hours if needed DULoxetine (CYMBALTA) 60 mg capsule Take 2 capsules by mouth once daily. Aliza Nieves. carBAMazepine (TEGRETOL) 200 mg tablet take 1 tablet by mouth in am and 2 at bedtime. Rx'd by Aliza Nieves . For mood and seizures. No current facility-administered medications for this visit. ALLERGIES Allergen Reactions Shellfish Derived Other: See Comments, Anaphylaxis THROAT SWELLING Seafood--THROAT SWELLS Venom-Honey Bee Unknown Venom-Wasp Unknown Carafate [Sucralfat* Hives Hives and Vomiting Latex Rash, Hives Adhesive Tape (Mis* Rash Aleve [Naproxen Sod* Other: See Comments Bactrim [Sulfametho* Other: See Comments severe headaches and nosebleeds Erythromycin Rash Flagyl [Metronidazo* Other: See Comments THROAT SWELLING Iodine Other: See Comments THROAT SWELL Naproxyn [Naproxen] Other: See Comments HEART STOPPED Novacaine [Procaine] Other: See Comments Does not work Ondansetron Other: See Comments headache Penicillins Other: See Comments THROAT SWELLING Pregabalin Swelling Facial swelling, very irritable Wellbutrin [Bupropi* Other: See Comments Zombie like state REVIEW OF SYSTEMS: All other ROS: negative As noted in HPI PHYSICAL EXAMINATION: VIDEO EXAM: (if completed, performed via video enabled technology) GENERAL: alert and appropriate, in no distress, well-hydrated, well nourished and happy, smiling, interactive IMPRESSION: Normal right shoulder radiographs RESULT: 4 views of the cervical spine demonstrate multilevel degenerative change with vertebral body osteophytosis and disc space narrowing, greatest at C3-4 and anteriorly at C6-7. 1 to 2 mm anterolisthesis of C4 on C5 and C5 on C6 with intact spinolaminal line suggesting degenerative etiology. There are no vertebral body compression deformities and alignment is otherwise well maintained. Bilateral obliques demonstrate the foramina maintained. The atlantoaxial interval and craniocervical junction are intact. There is no prevertebral soft tissue abnormality. IMPRESSION: 1. Relatively minimal degenerative changes as detailed above. No significant central canal stenosis. Mild foraminal stenosis as detailed. 2. Prior surgical changes as detailed above. 3. No evidence of fracture 4. No specific abnormality is seen within the visualized portions around the spinal stimulating generator pack. This area was incompletely included. Further assessment as clinical symptoms warrant. ASSESSMENT: (M25.50) Pain in joint, multiple sites (primary encounter diagnosis) PLAN: Patient with joint pain and family h/o autoimmune disease. Although no ypical features of lupus or vasculitis. She was noted to have positive PAT and pANCA. Work yp as below. Close follow up. There are no Patient Instructions on file for this visit. I spent a total of 30 minutes on the date of the service which included preparing to see the patient, [id number] patient care, completing clinical documentation, obtaining and/or reviewing separately obtained history, ordering medications, tests, or procedures and communicating results to the balwinder ent/family/caregivermy robert Adames MD [facility] on 09/28/21 XR HAND GENERAL 3V PA/LAT/OBL LEFT XR HAND GENERAL 3V PA/LAT/OBL RIGHT XR SACROILIAC JOINTS 2V AP PELVIS/FERGUESON XR FOOT GENERAL 3V AP/LAT/OBL LEFT XR FOOT GENERAL 3V AP/LAT/OBL RIGHT RHEUMATOID FACTOR BL CCP ANTIBODY IGG PAT BY IFA SCREEN DNA ANTIBODY DS BLD TRUCK REPAIR SERVICE ESTIMATOR ANTIBODY BLOOD CUBA IGG AB SJOGREN ABS SSA/SSB CK CREATINE KINASE ANTI NEUTRO CYTO AB CBC + DIFF COMP METABOLIC PANEL VITAMIN D 25 HYDROXY FERRITIN BLD IRON + TIBC UA WITH CULTURE IF INDICATED CREATININE RANDOM UR PROTEIN RANDOM UR No orders of the defined types were placed in this encounter. Platform used - my chart [facility] Miscellaneous Notes* Telephone Encounter - Randi Mohan MA - 09/27/2021 4:04 PM EDT Called patient and informed them their prescription was sent to their pharmacy. Randi Mohan MA * Telephone Encounter - Forest Dos Santos MD - 09/27/2021 3:56 PM EDT Celebrex refilled and sent to pharmacy. Forest Dos Santos III, MD, ALEYDA * Telephone Encounter - Randi Mohan MA - 09/27/2021 3:39 PM EDT [facility] Won Hameed Telephone Medication Refill Request Name/dose: celebrex 200 Amount dispensed monthly: 30 Date last filled: 03/17/21 Date last seen in office: 5.22 Provider: Forest Dos Santos MD Next scheduled visit: 10/20/21 Change in Pharmacy? No Randi Mohan MA documented in this encounterSelect [facility] Miscellaneous Notes* Telephone Encounter - May Luciano APRN.CNP - 09/08/2021 11:06 AM EDT Yes that is fine May Luciano APRN.CNP documented in this encounterSelect [facility] Miscellaneous Notes* Telephone Encounter - Valerio Rodriguez LPN - 08/19/2021 1:25 PM EDT Called pharmacy to notify of Dr's orders in the previous notes below, (spoke with Dr Dos Santos and clarified prescription for Florissant to start today not Percocet) pharmacist verbalized understanding. Called pt to notify about refill status, pt verbalized understanding. Valerio Rodriguez LPN * Telephone Encounter - Forest Dos Santos MD - 08/19/2021 12:56 PM EDT Pharmacy may fill the script for Percocet today (Sunday) since closed on Sat/Sun. Forest Dos Santos III, MD, ALEYDA * Telephone Encounter - Dacia Rodriguez MA - 08/19/2021 10:23 AM EDT Called and spoke with the pharmacy they are not open on Sunday and Sunday so they would like to know if they can fill patient's script today? Dacia Rodriguez MA * Telephone Encounter - Forest Dos Santos MD - 08/18/2021 1:50 PM EDT Please inquire from the pharmacy what the concern is about the Florissant dates? She last filled on 07/21, we have scripts for 08/20 and 09/19, this should be every 30 days. Forest Dos Santos III, MD, ALEYDA * Telephone Encounter - Lacy Livingston - 08/18/2021 11:45 AM EDT [facility] calling regarding changing date of Florissant prescription renewal. Please call them at [phone]. They are at lunch from Noon - 1. Anne is the name of the person who called. documented in this encounterSelect [facility] Miscellaneous Notes* Telephone Encounter - Elizabeth Swain - 08/18/2021 11:24 AM EDT Referral submitted for Ortho through the portal. Confirmation number [id number] documented in this encounterSelect [facility] Miscellaneous Notes* Telephone Encounter - Elizabeth Swain - 08/18/2021 11:19 AM EDT 1.Are you diabetic No 2. Are you on any blood thinners? No 3. Are you taking any aspirin? No 4. Have you had any recent imaging done on your body part that's being injected? Yes CT in past month 5. Do you have any allergies to latex? Yes 6. Do you have any allergies to seafood? Yes 7. Do you have any allergies to shellfish? No 8. Do you have any allergies to x-ray dye? Yes 9. Are you taking Xanax for the procedure? No 10. Have you done physical therapy in the last year? No If yes, When and Where? (Medical Records Release needs to be signed.) 11. Were the pre-procedure instructions explained to the patient? Yes 12. Do you have a pacemaker? No 13. Do you have an internal stimulator of any kind? No If yes, please bring the remote with you to your procedure visit. 14. Have you received the COVID-19 Vaccine? Yes. If yes, date(s) received: 08/04/20 (Patient should not receive a procedure including steroids 14 days prior to their first dose of theCOVID vaccine. They should not receive any procedure containing steroids in the time frame between their 1st and 2nd doses of the COVID vaccine. They should not receive a procedure containing steroids 14 days after their 2nd dose of the COVID vaccine.) Elizabeth Swain documented in this encounterSelect [facility] History of Present illness Narrative* Frida Canseco - 08/18/2021 10:34 AM EDT Review of Systems Constitutional: Negative for activity change, chills, fever and unexpected weight change. Gastrointestinal: Negative for bowel retention or incontinence Genitourinary: Negative for difficulty urinating. Negative for bladder retention or incontinence Musculoskeletal: Positive for arthralgias, back pain, gait problem, joint swelling, myalgias, neck pain and neck stiffness. Neurological: Positive for weakness and numbness. Negative for headaches. Psychiatric/Behavioral: Negative for dysphoric mood, sleep disturbance and suicidal ideas. The patient is not nervous/anxious. * Forest Dos Santos MD - 08/18/2021 7:49 AM EDT Images from the original note were not included. [facility] Name: Crys Franks : 1975 Purpose: Follow-Up Evaluation * Today's Date: 08/18/2021 Most recent visit date: 07/14/2021 (JANETH Mars) Chief Complaint (reason for call): low back pain Interval History: Since last encounter, Crys Franks reports that the chronic problem(s) of low back pain are Unchanged. She has constant pain in her axial low back, radiates into the buttocks, posterior thighs, calves and feet. She also right upper limb pain. She has a revision reconstructive surgery on the left foot with a surgeon from an outside health system on 05/20/2021, initial surgery was 03/18/2021. She reports that the foot is healing slowly. She is wearing a walking boot. She reports there is some discoloration of the dorsum of the foot. She weans out of the boot in September into a post-op shoe vs a firm-soled shoe. Flexeril switched to Baclofen, much improved in spasms since making the change. She was switched from Tramadol to Hydrocodone to cycle her opioids, she has better pain relief, butshe has gaps during the day. At her last visit, a Caudal LULU was recommended, patient reported she did not hear back from them about this. She was last in an ED one week ago. She reports pain along the base of the right rib cage, was ruled out abdominal origin by GI. Continues to have right wrist pain, Electrodiagnostic Study showed carpal tunnel syndrome. Recall: SCS was [place] [address] Sabillon ([facility]), helped initially, but 18 months ago, no longer provided relief. Turned off. She has had one spinal fusion prior to SCS placement. She had right shoulder surgery around 2014, for bone spurs and a torn rotator cuff. Electrodiagnostic Study showed carpal tunnel. As a result of neuropathy (reportedly diagnosed remotely by Electrodiagnostic Study), particularly in the left lower limb, she uses a wheelchair for community ambulation. She has had frequent falls and has weakness in the left lower limb. She uses a walker around the house. For pain, she takes Tramadol, Flexeril and Neurontin. She has been on these medications for years (with exception of Tramadol), helping less over the past year. Current Status: Opioid Medications requiring refills today: Hydrocodone 5/325 Date last filled: 07/21/2021 Quantity filled: 60 How many left: 5 Time most recent dose taken: This morning Non-Opioid Medications requiring refills today: Baclofen 10mg TID Neurontin 600mg TID Pain Medications from other providers: Cymbalta 60mg BID Topamax 200mg BD Celebrex 200mg qHS OTC Meds: Tylenol 500mg and Ibuprofen 200mg OTC - takes 2 of each per day Compliance: Safety Checklist: Are you taking proper precautions to safe guard your medication? Yes Taking the medications as prescribed? Yes Getting pain medications from another physician? No Obtaining pain medication from another source? No Sharing medications with friends/family? No Quality of life improved as a result of taking these medications? Yes Any side effect with this medication? No Justification for Continued Opioid Care: Adequate analgesia? Yes Aberrant drug seeking behavior? No Adverse reactions? No Medications improve quality of life? Yes Functional Goals: To remain active and independent Compliance: PDMP website checked and validated. All prescriptions have been APPROPRIATELY filled. No suspicious activity was identified. by Forest Dos Santos MD 08/18/2021 Last Drug screen: 07/14/2021 (positive Tramadol - appropriate; positive Morphine - had been in ED day prior and received IV Morphine - appropriate) 12/2020 (positive oxycodone - confirmed per PDMP) and below threshold for Tramadol Pain Medications Taken to Date (for the chief complaint): Membrane Stabilizers: Neurontin (Gabapentin), Lyrica (Pregabalin), Cymbalta (Duloxetine) and Topamax (Topiramate) - allergy to Lyrica NSAIDS: Motrin (Ibuprofen), Naprosyn (Naproxen) and Relafen (Nabumetone) - Naproxen caused throat swelling Opioids: Tramadol, Vicodin or [place] (Hydrocodone) and Percocet (Oxycodone) Muscle Relaxants: Flexeril (Cyclobenzaprine), Lioresal (Baclofen) and Zanaflex (Tizanidine) - Flexeril works better Topicals: none - irritate skin Other Prescription or OTC Pain Medications: Tylenol (Acetaminophen) Non-Pain Meds of Note: Abilify, Tegretol, Keppra,Trazodone, Imitrex Allergies: Allergies: Shellfish Derived Other: See Comments, Anaphylaxis Comment:THROAT SWELLING Seafood--THROAT SWELLS Venom-Honey Bee Unknown Venom-Wasp Unknown Latex Rash, Hives Adhesive Tape (Mis* Rash Aleve [Naproxen Sod* Other: See Comments Bactrim [Sulfametho* Other: See Comments Comment:severe headaches and nosebleeds Erythromycin Rash Flagyl [Metronidazo* Other: See Comments Comment:THROAT SWELLING Iodine Other: See Comments Comment:THROAT SWELL Naproxyn [Naproxen] Other: See Comments Comment:HEART STOPPED Novacaine [Procaine] Other: See Comments Comment:Does not work Ondansetron Other: See Comments Comment:headache Penicillins Other: See Comments Comment:THROAT SWELLING Pregabalin Swelling Comment:Facial swelling, very irritable Wellbutrin [Bupropi* Other: See Comments Comment:Zombie like state Current Medications, Past Medical History, Past Surgical History, Family History & Social History: Reviewed on today's date (noted above) Review of Systems: (Obtained personally on today's date, noted above): Pertinent Positives: MSK - pain in the region being treated Neuro: weakness or numbness in the region being treated Skin: Negative (No itching) Eyes: Negative (No blurred or double vision) Respiratory: Negative (No Cough, Nmncjutnx-mw-grpbqo, Dyspnea on exertion, wheezing) Cardiovascular: Negative (No Chest Pain, Tightness, Pressure, Palpitations) Gastrointestinal: Negative (No Abdominal pain, Nausea, Vomiting, Constipation, Diarrhea) Genitourinary: Negative (No dysuria) Hematologic: Negative (No bleeding, bruising) OB: is Denied or Not Applicable Endocrine: Negative (No hot/cold intolerance) Psychiatric: Negative (No depression, anxiety or suicidal ideation) Diagnostic Studies: Reviewed Personally on today's date, noted above MRI Spine Report No resulted procedures found. X-ray right shoulder 07/2021: Normal right shoulder radiographs. X-ray C-spine 07/2021: 4 views of the cervical spine demonstrate multilevel degenerative change withvertebral body osteophytosis and disc space narrowing, greatest at C3-4 and anteriorly at C6-7. 1 to 2 mm anterolisthesis of C4 on C5 and C5 on C6 with intact spinolaminal line suggesting degenerative etiology. There are no vertebral body compression deformities and alignment is otherwise well maintained. Bilateral obliques demonstrate the foramina maintained. The atlantoaxial interval and craniocervical junction are intact. There is no prevertebral soft tissue abnormality. Electrodiagnostic Study 07/2020: Mild to moderate right carpal tunnel syndrome CT L-Spine 08/2018: Bone marrow /fracture: No evidence of a lytic or blastic process in the visualized spine. Prior discectomy and fusion of L5-S1 from an anterior approach. There are bilateral L5 pars defects. No anterolisthesis. No evidence of fracture. Paraspinal soft tissues: There is a spinal stimulator present. The battery pack is within the rightposterior subcutaneous soft tissues. This is incompletely included on the exam. No obvious abnormality surrounds the generator pack. The lateral leads enters the spine through the T12-L1 interlaminar space. The visualized portions of the leads appear to be intact. Lower thoracic spine: The visualized lower thoracic bony canal and foramina are patent. T12-L1: Canal and foramina are patent. L1-L2: Canal and foramina are patent. L2-L3: Canal and foramina are patent L3-L4: Mild broad-based posterior disc bulging. No significant central canal stenosis. Mild bilateral foraminal stenosis. L4-L5: Mild generalized disc bulge. No significant central canal stenosis. Mild appearing bilateralforaminal stenosis. L5-S1: Prior discectomy. No recurrent disc protrusion or central canal stenosis. No foraminal stenosis. Sacrum and iliac wings: The visualized sacrum and iliac wings are within normal limits. IMPRESSION: 1. Relatively minimal degenerative changes as detailed above. No significant central canal stenosis. Mild foraminal stenosis as detailed. 2. Prior surgical changes as detailed above. 3. No evidence of fracture 4. No specific abnormality is seen within the visualized portions around the spinal stimulating generator pack. This area was incompletely included. Further assessment as clinical symptoms warrant. DATE PROCEDURE % OF IMPROVEMENT (DURATION) None to date at this practice Physical Exam: 08/18/21 1029 Pulse: 83 Resp: 20 SpO2: 97% Eyes: Conjunctiva clear. No discharge from eyes Cardiovascular: Appears well perfused Lymphatic: No visible regional lymphadenopathy Skin: No visible rashes or ecchymosis Psychiatric: Full affect, Alert, Pleasant No pain to palpation over the lumbar paraspinals, able to flex 50% without pain. Concordant pain to palpation along the anterior abdominal wall, base of the anterior right rib cage. Positive Tinel, Phalen and Median nerve compression at the right > left carpal tunnel Diagnoses: No diagnosis found. 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 Plan: Crys Franks would benefit from the following to reach personal goals for decreasing pain, improving function and work participation, and/or improving quality of life: -Interventional Procedure: Caudal Epidural Steroid Injection under fluoroscopic guidance The risks, benefits, alternative treatment options and prognosis of the procedure were discussed and all of the patient's questions/concerns were addressed to the patient s satisfaction. The patient expressed understanding and gave verbal consent to proceed. Medication(s): [place] 5/325, #60/mo - continue, can take half pill BID and 1 pill qHS Neurontin 600mg TID - continue Baclofen 10mg TID - continue Celebrex 200mg qHS - continue Limit OTC Ibuprofen to 400mg daily Continue Tylenol OTC Additional Studies: UDS Today Electrodiagnostic Study left carpal tunnel syndrome Ortho referral for carpal tunnel syndrome on right OIC: The opioid informed consent was reviewed and signed by the patient and a copy was offered (05/2021) Referrals: No additional considerations at present Functional Worship: No changes-continue current regimen Depending on response to the above-mentioned plan of care, in the future may consider evaluation for: Right shoulder injection; ultrasound guided injection abdominals at base of right rib cage -Follow-up: 2 months Attribution: In addition to reviewing the information noted above, some elements copied from my most recent clinical note(s), including the physical exam (completed in entirety today), and the impression and plan sections, have been updated where appropriate. All reflect current medical decision making from today's date. Forest Dos Santos MD, [facility] Discharge instructions Patient Education 07/28/2021 05:39:21 Abdominal Pain Abdominal Pain Abdominal pain is pain in the stomach or belly area. Everyone has this pain from time to time. In many cases it goes away on its own. But abdominal pain can sometimes be due to a serious problem, such as appendicitis. So it s important to know when to get help. Causes of abdominal pain There are many possible causes of abdominal pain. Common causes in adults include: Constipation, diarrhea, or gas Stomach acid flowing back up into the esophagus (acid reflux or heartburn) Severe acid reflux, called GERD (gastroesophageal reflux disease) A sore in the lining of the stomach or small intestine (peptic ulcer) Inflammation of the gallbladder, liver, or pancreas Gallstones or kidney stones Appendicitis Intestinal blockage An internal organ pushing through a muscle or other tissue (hernia) Urinary tract infections In women, menstrual cramps, fibroids, ovarian cysts, pelvic inflammatory disease, or endometriosis Inflammation or infection of the intestines, including Crohn's disease and ulcerative colitis Irritable bowel syndrome Diagnosing the cause of abdominal pain Your healthcare provider will give you a physical exam help find the cause of your pain. If needed,you will have tests. Belly pain has many possible causes. So it can be hard to find the reason for your pain. Giving details about your pain can help. Tell your provider where and when you feel the pain, and what makes it better or worse. Also let your provider know if you have other symptoms such as: Fever Tiredness Upset stomach (nausea) Vomiting Changes in bathroom habits Blood in the stool or black, tarry stool Weight loss that you can't explain (involuntary weight loss?) Also report any family history of stomach or intestinal problems, or cancers. Tell your provider about all your alcohol use and drug use. Tell your provider about all medicines you use, including herbs, vitamins, and supplements. Treating abdominal pain Some causes of pain need emergency medical treatment right away. These include appendicitis or a bowel blockage. Other problems can be treated with rest, fluids, or medicines. Your healthcare provider can give you specific instructions for treatment or self-care based on what is causing your pain. If you have vomiting or diarrhea, sip water or other clear fluids. When you are ready to eat solid foods again, start with small amounts of pabq-zv-pywrkr, low- fat foods. These include apple sauce, toast, or crackers. When to get medical care Call 911 or go to the hospital right away if you: Can t pass stool and are vomiting Are vomiting blood or have bloody diarrhea or black, tarry diarrhea Have chest, neck, or shoulder pain Feel like you might pass out Have pain in your shoulder blades with nausea Have sudden, severe belly pain Have new, severe pain unlike any you have felt before Have a belly that is rigid, hard, and hurts to touch Call your healthcare provider if you have: Pain for more than 5 days Bloating for more than 2 days Diarrhea for more than 5 days A fever of 100.4 F (38 C) or higher, or as directed by your healthcare provider Pain that gets worse Weight loss for no reason Continued lack of appetite Blood in your stool How to prevent abdominal pain Here are some tips to help prevent abdominal pain: Eat smaller amounts of food at each meal. Don't eat greasy, fried, or other high-fat foods. Don't eat foods that give you gas. Exercise regularly. Drink plenty of fluids. To help prevent GERD symptoms: Quit smoking. Reduce alcohol and foods that increase stomach acid. Don't use aspirin or giaz-jcz-pnbhqjs pain and fever medicines, if possible. This includes nonsteroidal anti-inflammatory drugs (NSAIDs). Lose excess weight. Finish eating at least 2 hours before you go to bed or lie down. Raise the head of your bed. [id number] [employer]. [address] [place] [address]. All rights reserved. This information is not intended as a substitute for professional medical care. Always follow yourhealthcare professional's instructions. Follow Up Care 07/28/2021 02:46:16 With:KATHERINE MUNOZ MD Address: [address] [place] [phone] When:2-4 days [facility] 04-04-2022 History of Present illness Narrative* Pamela Carranza, (R) - 07/11/2021 10:20 AM EDT Radiology Service Progress Note PATIENT NAME: Crys Franks DATE OF SERVICE: July 11, 2021 TIME: 10:34 AM PATIENT IDENTITY VERIFICATION COMPLETED USING TWO (2) IDENTIFIERS: Name and Date of confirmedby patient verbally. FALL SCREENING: Has the patient had 2 falls in the last year or 1 fall with injury or currently using an Ambulatory Assistive Device (Walker, Cane, Wheelchair, Crutches, etc.)? No PATIENT GENDER DATA: Female. status: : No status: NO. PATIENT RELEVANT IMPLANT DATA REVIEWED: Not Applicable RADIOLOGY DEPARTMENT: General X-ray: Exam(s) Completed: Spine X-Ray(s): Cervical AP / LAT / OBL Upper Extremity X-Ray(s): Shoulder, AP / TRUE AP right PERIPHERAL IV DATA: Not applicable SIGNED BY: RT Ruben(R) July 11, 2021 10:34 AM documented in [facility] encounter[facility] Hospital Discharge instructions Patient Education 07/05/2021 19:07:14 Headache, Unspecified Headache, Unspecified A number of things can cause headaches. The cause of your headache isn t clear. But it doesn t seemto be a sign of any serious illness. Headache affects almost everyone at some time. It is the most common reason people miss days from work or school. You could have a tension headache or a migraine headache. Stress can cause a tension headache. This can happen if you tense the muscles of your shoulders, neck, and scalp without knowing it. If this stress lasts long enough, you may develop a tension headache. It is not clear why migraines occur, but certain things called triggers can raise the risk of having a migraine attack. Migraine triggers may include emotional stress or depression, or by hormone changes during the menstrual cycle. Other triggers include control pills and other medicines, alcohol or caffeine, foods with tyramine (such as aged cheese, wine), eyestrain, weather changes, missed meals, and lack of sleep or oversleeping. Other causes of headache include: Viral illness with high fever Head injury with concussion Sinus, ear, or throat infection Dental pain and jaw joint (TMJ) pain More serious but less common causes of headache include stroke, brain hemorrhage, brain tumor, meningitis, and encephalitis. Home care Follow these tips when taking care of yourself at home: Don t drive yourself home if you were given pain medicine for your headache. Instead, have someone else drive you home. Try to sleep when you get home. You should feel much better when you wake up. Apply heat to the back of your neck to ease a neck muscle spasm. Take care of a migraine headache by putting an ice pack on your forehead or at the base of your skull. If you have nausea or vomiting, eat a light diet until your headache eases. If you have a migraine headache, use sunglasses when in the daylight or around bright indoor lighting until your symptoms get better. Bright glaring light can make this type of headache worse. Follow-up care Follow up with your healthcare provider, or as advised. Talk with your provider if you have frequent headaches. He or she can help figure out a treatment plan. By knowing the earliest signs of headache, and starting treatment right away, you may be able to stop the pain yourself. When to seek medical advice Call your healthcare provider right away if any of these occur: Your head pain suddenly gets worse after sexual intercourse or strenuous activity Your head pain doesn t get better within 24 hours You aren t able to keep liquids down (repeated vomiting) Fever of 100.4 F (38 C) or higher, or as directed by your healthcare provider Stiff neck Extreme drowsiness, confusion, or fainting Dizziness or dizziness with spinning sensation (vertigo) Weakness in an arm or leg or one side of your face You have trouble talking or seeing [id number] [employer]. [address] [place] [address]. All rights reserved. This information is not intended as a substitute for professional medical care. Always follow yourhealthcare professional's instructions. Follow Up Care 07/05/2021 18:53:53 With:[facility] Address: [address] [place] [phone] When:2-4 days Comments: With:Go to emergency room if symptoms worsen Address:Unknown When:2-4 days With:KATHERINE MUNOZ MD Address: [address] [place] [phone] When:2-4 days [facility] 03-08-2022 Hospital Discharge instructions Patient Education 06/14/2021 14:57:01 Abdominal Pain Abdominal Pain Abdominal pain is pain in the stomach or belly area. Everyone has this pain from time to time. In many cases it goes away on its own. But abdominal pain can sometimes be due to a serious problem, such as appendicitis. So it s important to know when to get help. Causes of abdominal pain There are many possible causes of abdominal pain. Common causes in adults include: Constipation, diarrhea, or gas Stomach acid flowing back up into the esophagus (acid reflux or heartburn) Severe acid reflux, called GERD (gastroesophageal reflux disease) A sore in the lining of the stomach or small intestine (peptic ulcer) Inflammation of the gallbladder, liver, or pancreas Gallstones or kidney stones Appendicitis Intestinal blockage An internal organ pushing through a muscle or other tissue (hernia) Urinary tract infections In women, menstrual cramps, fibroids, ovarian cysts, pelvic inflammatory disease, or endometriosis Inflammation or infection of the intestines, including Crohn's disease and ulcerative colitis Irritable bowel syndrome Diagnosing the cause of abdominal pain Your healthcare provider will give you a physical exam help find the cause of your pain. If needed,you will have tests. Belly pain has many possible causes. So it can be hard to find the reason for your pain. Giving details about your pain can help. Tell your provider where and when you feel the pain, and what makes it better or worse. Also let your provider know if you have other symptoms such as: Fever Tiredness Upset stomach (nausea) Vomiting Changes in bathroom habits Blood in the stool or black, tarry stool Weight loss that you can't explain (involuntary weight loss?) Also report any family history of stomach or intestinal problems, or cancers. Tell your provider about all your alcohol use and drug use. Tell your provider about all medicines you use, including herbs, vitamins, and supplements. Treating abdominal pain Some causes of pain need emergency medical treatment right away. These include appendicitis or a bowel blockage. Other problems can be treated with rest, fluids, or medicines. Your healthcare provider can give you specific instructions for treatment or self-care based on what is causing your pain. If you have vomiting or diarrhea, sip water or other clear fluids. When you are ready to eat solid foods again, start with small amounts of evso-zg-uswmxk, low- fat foods. These include apple sauce, toast, or crackers. When to get medical care Call 911 or go to the hospital right away if you: Can t pass stool and are vomiting Are vomiting blood or have bloody diarrhea or black, tarry diarrhea Have chest, neck, or shoulder pain Feel like you might pass out Have pain in your shoulder blades with nausea Have sudden, severe belly pain Have new, severe pain unlike any you have felt before Have a belly that is rigid, hard, and hurts to touch Call your healthcare provider if you have: Pain for more than 5 days Bloating for more than 2 days Diarrhea for more than 5 days A fever of 100.4 F (38 C) or higher, or as directed by your healthcare provider Pain that gets worse Weight loss for no reason Continued lack of appetite Blood in your stool How to prevent abdominal pain Here are some tips to help prevent abdominal pain: Eat smaller amounts of food at each meal. Don't eat greasy, fried, or other high-fat foods. Don't eat foods that give you gas. Exercise regularly. Drink plenty of fluids. To help prevent GERD symptoms: Quit smoking. Reduce alcohol and foods that increase stomach acid. Don't use aspirin or fbxm-juc-vckkqmx pain and fever medicines, if possible. This includes nonsteroidal anti-inflammatory drugs (NSAIDs). Lose excess weight. Finish eating at least 2 hours before you go to bed or lie down. Raise the head of your bed. [id number] [employer]. [address] [place] [address]. All rights reserved. This information is not intended as a substitute for professional medical care. Always follow yourhealthcare professional's instructions. Follow Up Care 06/14/2021 12:52:09 With:KATHERINE MUNOZ MD Address: [address] [place] [phone] When:2-4 days With:Go to emergency room if symptoms worsen Address:Unknown When:2-4 days [facility] 02-13-2022 Hospital Discharge instructions Patient Education 05/22/2021 07:59:00 Preventing Surgical Site Infections Preventing Surgical Site Infections Hand washing reduces the risk of infection. One risk of having surgery is an infection at the surgical site. The surgical site is any cut the surgeon makes in the skin to do the operation. Surgical site infections can range from minor to severe or even fatal. This sheet tells you more about surgical site infections, what hospitals are doing to prevent them, and how they are treated if they do occur. It also tells you what you can do to prevent these infections. What causes surgical site infections? Germs are everywhere. They re on your skin, in the air, and on things you touch. Many germs are good. Some are harmful. Surgical site infections occur when harmful germs enter your body through the incision in your skin. Some infections are caused by germs that are in the air or on objects. But most are caused by germs found on and in your own body. Who is at risk for surgical site infections? Anyone can have a surgical site infection. Your risk is greater if you: Are an older adult Have a weak immune system or other health conditions or illnesses such as diabetes Take certain medicines such as steroids Are a smoker Have certain types of operations, such as abdominal surgery Have poor nutrition Are very overweight If the operation lasts longer than 2 hours What are the symptoms of a surgical site infection? The infection usually starts with increased skin redness, pain, and swelling around the incision. Later you may notice a cloudy or greenish-yellow discharge from the incision and it may develop a foul odor. The incision may separate or open up. You are also likely to have a fever and may feel very ill. Symptoms can appear any time from hours to weeks after surgery. Implants such as an artificial kneeor hip can become infected at any time after the operation. How are surgical site infections treated? Surgical site infections are treated with antibiotics. The type of medicine you get will depend on the germ thought to be causing the infection. Most serious wound infections need local wound care, and in some cases, further surgery. An infected skin wound may be reopened and cleaned. Sometimes, deep wounds need to be packed with gauze that is changed often until the wound starts to heal from the inside out. Your healthcare provider will figure out the best care needed to treat your surgical site infection. If an infection occurs where an implant is placed, the implant may be removed. If you have an infection deeper in your body, you may need another operation to treat it. What hospitals do to prevent surgical site infections Many hospitals take these steps to help prevent surgical site infections: Handwashing. Before the operation, your surgeon and all operating room staff scrub their hands and arms with an antiseptic soap. Clean skin. The site where your incision is made is carefully cleaned with an antiseptic solution. Sterile clothing and drapes. Members of your surgical team wear medical uniforms (scrub suits), long-sleeved surgical gowns, masks, caps, shoe covers, and sterile gloves. Your body is fully covered with a large sterile sheet (sterile drape) except for the spot where the incision is made. Clean air. Operating rooms have special air filters and positive pressure airflow to prevent unfiltered air from entering the room. Careful use of antibiotics. Antibiotics are given no more than 60 minutes before the incision is made and stopped within 24 hours after surgery. This helps kill germs but avoids problems that can occur when antibiotics are taken longer. Controlled blood sugar levels. Your blood sugar level may rise because of the stress of the surgery. Your blood sugar level is watched closely to make sure it stays within a normal range. High blood sugar delays wound healing and increases the chances for infection. Controlled body temperature. A ytsto-kxwl-dsvnzi temperature during or after surgery prevents oxygen from reaching the wound and makes it harder for your body to fight infection. Hospitals may warm IV fluids, increase the temperature in the operating room, and provide warm-air blankets. Proper hair removal. Any hair that must be removed is clipped right before the incision, not shavedwith a razor. This prevents tiny nicks and cuts through which germs can enter. Wound care. After surgery, a closed wound is covered with a sterile dressing for a day or two. Openwounds are packed with sterile gauze and covered with a sterile dressing. What you can do to prevent surgical site infections Ask questions. Learn what your hospital is doing to prevent infection. If your doctor tells you to, shower or bathe with plain soap the night before and the day of your operation. Follow the instructions you are given. You may be asked to use a special cleanser that youdon t rinse off. If you smoke, stop for the longest duration possible before and after the operation. Ask your doctor about ways to quit. Take antibiotics only when your healthcare provider tells you to. Using antibiotics when they re not needed can create germs that are harder to kill. Also, finish all your antibiotics, even if you feel better. Be sure healthcare workers clean their hands with plain soap and water or with an alcohol-based hand assembly cleaner before and after caring for you. Don t be afraid to remind them. After surgery, eat healthy foods. Care for your incision as directed by your doctor or nurse. When to seek medical care Call your healthcare provider if you have any of the following: Increased soreness, pain, or tenderness at the surgical site A red streak, increased redness, or puffiness near the incision Yellowish, cloudy, or bad-smelling discharge from the incision Stitches that dissolve before the wound heals Fever of 100.4 F (38 C) or higher, or as directed by your healthcare provider A tired feeling that doesn t go away 6212-3822 [employer]. [address] [place] [address]. All rights reserved. This information is not intended as a substitute for professional medical care. Always follow yourhealthcare professional's instructions. Follow Up Care 05/22/2021 07:50:13 With:GRICELDA LIZAMA DPM, Surgery Address: When:1-2 days [facility] 02-11-2022 Evaluation + Plan noteExtracted from: Title:Clinical Document Author:GRICELDA LIZAMA PM Date:05/20/21 [place] ADMISSION HISTORY A [place] PHYSICIAL CHIEF COMPLAINT: HISTORY OF PRESENT ILLNESS: REVIEW OF SYSTEMS: ACTIVE PROBLEMS: (15) Anxiety (14801509) Bipolar disorder (66050473) CAStroke (902151380) DDD (degenerative disc disease), lumbar (75248572) Depression (44286843) Flank pain (779449714) GERD (gastroesophageal reflux disease) (864572500) Incontinence (73349975) Kidney stone (540750308) Nausea & vomiting (29598796) Neuropathy (4665804244) OA (osteoarthritis) (3390998856) PTSD (post-traumatic stress disorder) (88711037) Seizure (723908998) Tobacco use (2589438989) MEDICATIONS: Active Inpt Meds: None Active PRN Meds: HYDROmorphone (Dilaudid ( PACU )) Start: 05/20/21 8:32:00 EST, Dose = 0.25 mg, = 0.25 mL, IV Push, q5min, PRN, Pain, scale 4-6, 8 dose(s), Stop: Limited # of times, 0 fentaNYL (fentaNYL ( PACU )) Start: 05/20/21 8:32:00 EST, Dose = 50 mcg, = 1 mL, IV Push, q5min, PRN, Pain, breakthrough, 4 dose(s), Stop: Limited # of times ondansetron (Zofran ( PACU )) Start: 05/20/21 8:32:00 EST, Dose = 4 mg, = 2 mL, IV Push, AsDirected, PRN, Nausea/Vomiting, 1 dose(s), Stop: Limited # of times One Time Meds: (Completed) famotidine (Pepcid IV (ANES)) IV Push, Once, Stop: 05/20/21 8:42:00 EST (Completed) scopolamine (scopolamine (ANES)) ER Film, Topical, Once, Stop: 05/20/21 8:42:00 EST Active IV Meds: Lactated Ringers Infusion 1,000 mL (LR 1,000 mL) Start: 05/20/21 8:32:00 EST, Rate: 20 mL/hr ALLERGIES: (9) amoxicillin Contrast dye erythromycin Flagyl iodine Latex Naprosyn penicillin Seafood FAMILY HISTORY: SOCIAL HISTORY: PHYSICAL EXAM: VITALS: [id number](kg) 05/20 08:1536.796/820440--FA87/85599.0 24 Hr Tmax: 36.7 at 05/20 08:15 36 Hr Tmax: 36.7 at 05/20 08:15 Vital Signs are the last 5 in the past 48 hours. Weights display the last 5 within 7 days. Initial Wt: 05/20 100.0 kg 220 lb Current Wt: 05/20 100.0 kg 220 lb GENERAL: HEENT: CARDIOVASCULAR: RESPIRATORY: ABDOMEN: EXREMETIES: NEUROLOGICAL: PSYCHIATRIC: LABS: No 36hr Lab Data DIAGNOSTICS: IMPRESSION: PLAN: History and Physical Update I have examined the patient; reviewed the H&P and there are no changes to the H&P unless noted below. [facility] 02-11-2022 Hospital Discharge instructions Patient Education 05/20/2021 11:37:19 Outpatient Surgery, Adult, Care After Outpatient Surgery, Adult, Care After These instructions provide you with information about caring for yourself after your procedure. Your health care provider may also give you more specific instructions. Your treatment has been plannedaccording to current medical practices, but problems sometimes occur. Call your health care provider if you have any problems or questions after your procedure. What can I expect after the procedure? After the procedure, it is common to have: Tenderness and numbness at the surgical site. Swelling and bruising around the surgical site. Nausea. Follow these instructions at home: For at least 24 hours after the procedure: Have a responsible adult stay with you. It is important to have someone help care for you until youare awake and alert. Rest as needed. Do not: ?Participate in activities in which you could fall or become injured. ?Drive. ?Use heavy machinery. ?Drink alcohol. ?Take sleeping pills or medicines that cause drowsiness. ?Make important decisions or sign legal documents. ?Take care of children on your own. Activity Return to your normal activities as told by your health care provider. Ask your health care provider what activities are safe for you. Do not lift anything that is heavier than 10 lb (4.5 kg), or the limit that your health care provider tells you, until your health care provider says it is okay. Do not play contact sports until your health care provider says it is okay. Incision care Follow instructions from your health care provider about how to take care of an incision, if you have one. Make sure you: ?Wash your hands with soap and water before you change your bandage (dressing). If soap and water are not available, use hand principal data architect. ?Change your dressing as told by your health care provider. ?Leave stitches (sutures), skin glue, or adhesive strips in place. These skin closures may need to stay in place for 2 weeks or longer. If adhesive strip edges start to loosen and curl up, you may trim the loose edges. Do not remove adhesive strips completely unless your health care provider tells you to do that. Check your incision area every day for signs of infection. Check for: ?More redness, swelling, or pain. ?More fluid or blood. ?Warmth. ?Pus or a bad smell. Medicines Take rmev-nji-vtzrqgh and prescription medicines only as told by your health care provider. Do not drive or use heavy machinery while taking prescription pain medicines. Eating and drinking Follow the diet recommended by your health care provider. When you are hungry, begin eating light and bland foods such as toast. Gradually return to your regular diet. If you vomit: ?Drink water, juice, or soup when you can drink without vomiting. ?Make sure you have little or no nausea before eating solid foods. General instructions If you have sleep apnea, surgery and certain medicines can increase your risk for breathing problems. Follow instructions from your HCP about wearing your sleep device: ?Anytime you are sleeping, including during daytime naps. ?While taking prescription pain medicines, sleeping medicines, or medicines that make you drowsy. Do not use any tobacco products, such as cigarettes, chewing tobacco, and e- cigarettes, for as longas possible. If you smoke, do not smoke without supervision. Keep all follow-up visits as told by your health care provider. This is important. Contact a health care provider if: You have more redness, swelling, or pain around your incision. You have more fluid or blood coming from your incision. Your incision feels warm to the touch. You have pus or a bad smell coming from your incision. You have a fever. You feel light-headed or you faint. You develop a rash. You keep feeling nauseous or keep vomiting. You have very bad pain, even after taking the medicines your health care provider has prescribed orrecommended. You have constipation. Get help right away if: You are unable to pass urine. You have trouble breathing. Summary Have a responsible adult stay with you for at least 24 hours after the procedure. Nausea is common after a procedure. Make sure you have little or no nausea before eating solid foods. Follow the diet recommended by your health care provider. Ask your health care provider what activities are safe for you. This information is not intended to replace advice given to you by your health care provider. Make sure you discuss any questions you have with your health care provider. Document Released: 07/16/2016 Document Revised: 06/24/2018 Document Reviewed: 07/16/2016 [employer] Patient Education 2020 [employer] 05/20/2021 11:36:52 General Anesthesia, Adult, Care After General Anesthesia, Adult, Care After This sheet gives you information about how to care for yourself after your procedure. Your health care provider may also give you more specific instructions. If you have problems or questions, contact your health care provider. What can I expect after the procedure? After the procedure, the following side effects are common: Pain or discomfort at the IV site. Nausea. Vomiting. Sore throat. Trouble concentrating. Feeling cold or chills. Weak or tired. Sleepiness and fatigue. Soreness and body aches. These side effects can affect parts of the body that were not involved in surgery. Follow these instructions at home: For at least 24 hours after the procedure: Have a responsible adult stay with you. It is important to have someone help care for you until youare awake and alert. Rest as needed. Do not: ?Participate in activities in which you could fall or become injured. ?Drive. ?Use heavy machinery. ?Drink alcohol. ?Take sleeping pills or medicines that cause drowsiness. ?Make important decisions or sign legal documents. ?Take care of children on your own. Eating and drinking Follow any instructions from your health care provider about eating or drinking restrictions. When you feel hungry, start by eating small amounts of foods that are soft and easy to digest (bland), such as toast. Gradually return to your regular diet. Drink enough fluid to keep your urine pale yellow. If you vomit, rehydrate by drinking water, juice, or clear broth. General instructions If you have sleep apnea, surgery and certain medicines can increase your risk for breathing problems. Follow instructions from your health care provider about wearing your sleep device: ?Anytime you are sleeping, including during daytime naps. ?While taking prescription pain medicines, sleeping medicines, or medicines that make you drowsy. Return to your normal activities as told by your health care provider. Ask your health care provider what activities are safe for you. Take qqcj-wrl-ikqwmov and prescription medicines only as told by your health care provider. If you smoke, do not smoke without supervision. Keep all follow-up visits as told by your health care provider. This is important. Contact a health care provider if: You have nausea or vomiting that does not get better with medicine. You cannot eat or drink without vomiting. You have pain that does not get better with medicine. You are unable to pass urine. You develop a skin rash. You have a fever. You have redness around your IV site that gets worse. Get help right away if: You have difficulty breathing. You have chest pain. You have blood in your urine or stool, or you vomit blood. Summary After the procedure, it is common to have a sore throat or nausea. It is also common to feel tired. Have a responsible adult stay with you for the first 24 hours after general anesthesia. It is important to have someone help care for you until you are awake and alert. When you feel hungry, start by eating small amounts of foods that are soft and easy to digest (bland), such as toast. Gradually return to your regular diet. Drink enough fluid to keep your urine pale yellow. Return to your normal activities as told by your health care provider. Ask your health care provider what activities are safe for you. This information is not intended to replace advice given to you by your health care provider. Make sure you discuss any questions you have with your health care provider. Document Released: 07/02/2001 Document Revised: 03/29/2018 Document Reviewed: 11/09/2017 [employer] Patient Education 2020 [employer]. Follow Up Care 04/29/2021 12:20:58 With:GRICELDA LIZAMA Address: [address] [facility] [facility] [place] [address]- Business (1) When:05/26/2021 08:40:00 [facility] 12-30-2021 Hospital Discharge instructions Patient Education 04/07/2021 20:37:31 Hematuria Blood in the Urine Blood in the urine (hematuria) has many possible causes. If it occurs after an injury (such as a car accident or fall), it is most often a sign of bruising to the kidney or bladder. Common causes of blood in the urine include urinary tract infections, kidney stones, inflammation, tumors, or certainother diseases of the kidney or bladder. Menstruation can cause blood to appear in the urine sample, although it is not coming from the urinary tract. If only a trace amount of blood is present, it will show up on the urine test, even though the urine may be yellow and not pink or red. This may occur with any of the above conditions, as well as heavy exercise or high fever. In this case, your doctor may want to repeat the urine test on another day. This will show if the blood is still present. If it is, then other tests can be done to find out the cause. Home care Follow these home care guidelines: If your urine does not appear bloody (pink, brown or red) then you do not need to restrict your activity in any way. If you can see blood in your urine, rest and avoid heavy exertion until your next exam. Do not use aspirin, blood thinners, or anti-platelet or anti- inflammatory medicines. These include ibuprofen and naproxen. These thin the blood and may increase bleeding. Follow-up care Follow up with your healthcare provider, or as advised. If you were injured and had blood in your urine, you should have a repeat urine test in 1 to 2 days. Contact your doctor for this test. A radiologist will review any X-rays that were taken. You will be told of any new findings that mayaffect your care. When to seek medical advice Call your healthcare provider right away if any of these occur: Bright red blood or blood clots in the urine (if you did not have this before) Weakness, dizziness or fainting New groin, abdominal, or back pain Fever of 100.4 F (38 C) or higher, or as directed by your healthcare provider Repeated vomiting Bleeding from the nose or gums or easy bruising [id number] [employer]. [address] [place] [address]. All rights reserved. This information is not intended as a substitute for professional medical care. Always follow yourhealthcare professional's instructions. 04/07/2021 19:47:30 Dysuria Dysuria Painful urination (dysuria) is often caused by a problem in the urinary tract. Dysuria is pain felt during urination. It is often described as a burning. Learn more about this problem and how it can be treated. What causes dysuria? Possible causes include: Infection with a bacteria or virus such as a urinary tract infection (UTI or a sexually transmittedinfection (STI) Sensitivity or allergy to chemicals such as those found in lotions and other products Prostate or bladder problems Radiation therapy to the pelvic area How is dysuria diagnosed? Your healthcare provider will examine you. He or she will ask about your symptoms and health. Aftertalking with you and doing a physical exam, your healthcare provider may know what is causing your dysuria. He or she will usually request a sample of your urine. Tests of your urine, or a urinalysis, are done. A urinalysis may include: Looking at the urine sample (visual exam) Checking for substances (chemical exam) Looking at a small amount under a microscope (microscopic exam) Some parts of the urinalysis may be done in the provider's office and some in a lab. And, the urinesample may be checked for bacteria and yeast (urine culture). Your healthcare provider will tell you more about these tests if they are needed. How is dysuria treated? Treatment depends on the cause. If you have a bacterial infection, you may need antibiotics. You may be given medicines to make it easier for you to urinate and help relieve pain. Your healthcare provider can tell you more about your treatment options. Untreated, symptoms may get worse. When to call your healthcare provider Call the healthcare provider right away if you have any of the following: Fever of 100.4 F (38 C) or higher No improvement after three days of treatment Trouble urinating because of pain New or increased discharge from the vagina or penis Rash or joint pain Increased back or abdominal pain Enlarged painful lymph nodes (lumps) in the groinTh [id number] [employer] [place] [address]. All rights reserved. This information is not intended as a substitute for professional medical care. Always follow yourhealthcare professional's instructions. 04/07/2021 19:47:28 Abdominal Pain Abdominal Pain Abdominal pain is pain in the stomach or belly area. Everyone has this pain from time to time. In many cases it goes away on its own. But abdominal pain can sometimes be due to a serious problem, such as appendicitis. So it s important to know when to get help. Causes of abdominal pain There are many possible causes of abdominal pain. Common causes in adults include: Constipation, diarrhea, or gas Stomach acid flowing back up into the esophagus (acid reflux or heartburn) Severe acid reflux, called GERD (gastroesophageal reflux disease) A sore in the lining of the stomach or small intestine (peptic ulcer) Inflammation of the gallbladder, liver, or pancreas Gallstones or kidney stones Appendicitis Intestinal blockage An internal organ pushing through a muscle or other tissue (hernia) Urinary tract infections In women, menstrual cramps, fibroids, ovarian cysts, pelvic inflammatory disease, or endometriosis Inflammation or infection of the intestines, including Crohn's disease and ulcerative colitis Irritable bowel syndrome Diagnosing the cause of abdominal pain Your healthcare provider will give you a physical exam help find the cause of your pain. If needed,you will have tests. Belly pain has many possible causes. So it can be hard to find the reason for your pain. Giving details about your pain can help. Tell your provider where and when you feel the pain, and what makes it better or worse. Also let your provider know if you have other symptoms such as: Fever Tiredness Upset stomach (nausea) Vomiting Changes in bathroom habits Blood in the stool or black, tarry stool Weight loss that you can't explain (involuntary weight loss?) Also report any family history of stomach or intestinal problems, or cancers. Tell your provider about all your alcohol use and drug use. Tell your provider about all medicines you use, including herbs, vitamins, and supplements. Treating abdominal pain Some causes of pain need emergency medical treatment right away. These include appendicitis or a bowel blockage. Other problems can be treated with rest, fluids, or medicines. Your healthcare provider can give you specific instructions for treatment or self-care based on what is causing your pain. If you have vomiting or diarrhea, sip water or other clear fluids. When you are ready to eat solid foods again, start with small amounts of sdhv-hy-xfxszz, low- fat foods. These include apple sauce, toast, or crackers. When to get medical care Call 911 or go to the hospital right away if you: Can t pass stool and are vomiting Are vomiting blood or have bloody diarrhea or black, tarry diarrhea Have chest, neck, or shoulder pain Feel like you might pass out Have pain in your shoulder blades with nausea Have sudden, severe belly pain Have new, severe pain unlike any you have felt before Have a belly that is rigid, hard, and hurts to touch Call your healthcare provider if you have: Pain for more than 5 days Bloating for more than 2 days Diarrhea for more than 5 days A fever of 100.4 F (38 C) or higher, or as directed by your healthcare provider Pain that gets worse Weight loss for no reason Continued lack of appetite Blood in your stool How to prevent abdominal pain Here are some tips to help prevent abdominal pain: Eat smaller amounts of food at each meal. Don't eat greasy, fried, or other high-fat foods. Don't eat foods that give you gas. Exercise regularly. Drink plenty of fluids. To help prevent GERD symptoms: Quit smoking. Reduce alcohol and foods that increase stomach acid. Don't use aspirin or usyf-jhi-fncvyjb pain and fever medicines, if possible. This includes nonsteroidal anti-inflammatory drugs (NSAIDs). Lose excess weight. Finish eating at least 2 hours before you go to bed or lie down. Raise the head of your bed. 6028-3619 [employer]. [address] [place] [address], [place] [address]. All rights reserved. This information is not intended as a substitute for professional medical care. Always follow yourhealthcare professional's instructions. Follow Up Care 04/07/2021 19:31:14 With:your urologist Address: When:2-4 days With:Go to emergency room if symptoms worsen Address:Unknown When:2-4 days With:KATHERINE MUNOZ MD Address: [address] [place] [address] [place] [phone] [phone] When:2-4 days [facility] 12-30-2021 Evaluation + Plan note Diagnostic Tests Pending * Urine Culture 04/07/21 [facility] 11-30-2021 Hospital Discharge instructions Patient Education 03/08/2021 17:57:55 Pharyngitis, Report Pending Pharyngitis (Sore Throat), Report Pending Pharyngitis (sore throat) is often due to a virus. It can also be caused by streptococcus (strep), bacteria. This is often called strep throat. Both viral and strep infections can cause throat pain that is worse when swallowing, aching all over, headache, and fever. Both types of infections are contagious. They may be spread by coughing, kissing, or touching others after touching your mouth or nose. A test has been done to find out if you or your child have strep throat. Call this facility or yourhealthcare provider if you were not given your test results. If the test is positive for strep infection, you will need to take antibiotic medicines. A prescription can be called into your pharmacy at that time. If the test is negative, you probably have a viral pharyngitis. This does not need to be treated with antibiotics. Until you receive the results of the strep test, you should stay home from work. If your child is being tested, he or she should stay home from school. Home care Rest at home. Drink plenty of fluids so you won't get dehydrated. If the test is positive for strep, you or your child should not go to work or school for the first 2 days of taking the antibiotics. After this time, you or your child will not be contagious. You or your child can then return to work or school when feeling better. Use the antibiotic medicine for the full 10 days. Do not stop the medicine even if you or your child feel better. This is very important to make sure the infection is fully treated. It is also important to prevent medicine-resistant germs from growing. If you or your child were given an antibiotic shot, no more antibiotics are needed. Use throat lozenges or numbing throat sprays to help reduce pain. Gargling with warm salt water will also help reduce throat pain. Dissolve 1/2 teaspoon of salt in 1 glass of warm water. Children cansip on juice or a popsicle. Children 5 years and older can also suck on a lollipop or hard candy. Don't eat salty or spicy foods or give them to your child. These can irritate the throat. Other medicine for a child: You can give your child acetaminophen for fever, fussiness, or discomfort. In babies over 6 months of age, you may use ibuprofen instead of acetaminophen. If your child has chronic liver or kidney disease or ever had a stomach ulcer or GI bleeding, talk with your [facility] provider before giving these medicines. Aspirin should never be used by any child under 18 years of age who has a fever. It may cause severe liver damage. Other medicine for an adult: You may use acetaminophen or ibuprofen to control pain or fever, unless another medicine was prescribed for this. If you have chronic liver or kidney disease or ever had a stomach ulcer or GI bleeding, talk with your healthcare provider before using these medicines. Follow-up care Follow up with your healthcare provider or our staff if you or your child don't get better over thenext week. When to seek medical advice Call your healthcare provider right away if any of these occur: Fever as directed by your healthcare provider. For children, seek care if: oYour child is of any age and has repeated fevers above 104 F (40 C). oYour child is younger than 2 years of age and has a fever of 100.4 F (38 C) for more than 1 day. oYour child is 2 years old or older and has a fever of 100.4 F (38 C) for more than 3 days. New or worsening ear pain, sinus pain, or headache Painful lumps in the back of neck Stiff neck Lymph nodes are getting larger Can t swallow liquids, a lot of drooling, or can t open mouth wide due to throat pain Signs of dehydration, such as very dark urine or no urine, sunken eyes, dizziness Trouble breathing or noisy breathing Muffled voice New rash Other symptoms getting worse Prevention Here are steps you can take to help prevent an infection: Keep good hand washing habits. Don t have close contact with people who have sore throats, colds, or other upper respiratory infections. Don t smoke, and stay away from secondhand smoke. Stay up to date with of your vaccines. [id number] [employer]. [address] [place] [address], [place] [address]. All rights reserved. This information is not intended as a substitute for professional medical care. Always follow yourhealthcare professional's instructions. 03/08/2021 17:57:52 Self-Care for Sore Throats Self-Care for Sore Throats Sore throats happen for many reasons, such as colds, allergies, and infections caused by viruses orbacteria. In any case, your throat becomes red and sore. Your goal for self-care is to reduce your discomfort while giving your throat a chance to heal. Moisten and soothe your throat Tips include the following: Try a sip of water first thing after waking up. Keep your throat moist by drinking 6 or more glasses of clear liquids every day. Run a cool-air humidifier in your room overnight. Avoid cigarette smoke. Suck on throat lozenges, cough drops, hard candy, ice chips, or frozen fruit- juice bars. Use the sugar-free versions if your diet or medical condition requires them. Gargle to ease irritation Gargling every hour or 2 can ease irritation. Try gargling with 1 of these solutions: 1/4 teaspoon of salt in 1/2 cup of warm water An oupi-lkg-dqlehoa anesthetic gargle Use medicine for more relief Jrao-enr-ouzicop medicine can reduce sore throat symptoms. Ask your pharmacist if you have questions about which medicine to use: Ease pain with anesthetic sprays. Aspirin or an aspirin substitute also helps. Remember, never giveaspirin to anyone 18 or younger, or if you are already taking blood thinners. For sore throats caused by allergies, try antihistamines to block the allergic reaction. Remember: unless a sore throat is caused by a bacterial infection, antibiotics won t help you. Prevent future sore throats Prevention tips include the following: Stop smoking or reduce contact with secondhand smoke. Smoke irritates the tender throat lining. Limit contact with pets and with allergy-causing substances, such as pollen and mold. When you re around someone with a sore throat or cold, wash your hands often to keep viruses or bacteria from spreading. Don t strain your vocal cords. Contact your healthcare provider if you have: A temperature over 101 F (38.3 C) White spots on the throat Great difficulty swallowing Trouble breathing A skin rash Recent exposure to someone else with strep bacteria Severe hoarseness and swollen glands in the neck or jaw [id number] [employer] [address] [place] [address]. All rights reserved. This information is not intended as a substitute for professional medical care. Always follow yourhealthcare professional's instructions. Follow Up Care 03/08/2021 16:07:48 With:KATHERINE MUNOZ MD Address: [address] [place] [phone] When:2-4 days [facility] 11-17-2021 Hospital Discharge instructions Patient Education 02/23/2021 14:07:35 CONTUSION, Back Contusion, Back You have a CONTUSION of the back. This is a bruise with swelling and some bleeding under the skin. There are no broken bones. This injury takes a few days to a few weeks to heal. It is normal to feelmuscle stiffness and aching in the area of injury the next day. Home Care: 1) Rest and relax your back muscles until you are feeling better. 2) Apply an ice pack (crushed or cubed ice in a plastic bag, wrapped in a towel) for 20 minutes every 2-4 hours during the first two days after a new injury. Local heat (hot shower, hot bath or heating pad) and massage will help reduce muscle spasm . Some patients feel best alternating treatments. Use the method that feels best to you for. 3) You may use acetaminophen (Tylenol) or ibuprofen (Motrin, Advil) to control pain, unless anotherpain medicine was prescribed. [ NOTE : If you have chronic liver or kidney disease or ever had a stomach ulcer or GI bleeding, talk with your doctor before using these medicines.] Follow Up with your doctor or this facility if your symptoms do not start to improve after three days. [NOTE: If X-rays were taken, they will be reviewed by a radiologist. You will be notified of any new findings that may affect your care.] Get Prompt Medical Attention if any of the following occur: -- Pain becomes worse or spreads to one or both legs -- Weakness or numbness in one or both legs -- Loss of bowel or bladder control -- Numbness in the groin or genital area -- Redness, warmth or drainage from the skin [id number] [employer]. [address] [place] [address]. All rights reserved. This information is not intended as a substitute for professional medical care. Always follow yourhealthcare professional's instructions. 02/23/2021 14:07:34 HEAD INJURY, No Wake-Up (Adult) Head Injury, No Wake-Up (Adult) You have had a head injury. It does not appear serious at this time. Symptoms of a more serious problem (concussion, bruising, or bleeding in the brain) may appear later. Therefore, watch for the WARNING SIGNS listed below. Home Care: Your healthcare provider will tell you whether it s okay to drive. If so, you can drive yourself home. For the next day or so, be careful when driving or using heavy machinery until you are sure you have no delayed symptoms. During the next 24 hours someone must stay with you to check for the signs below. It is not necessary to stay awake or be awakened during the night. If you have swelling of the face or scalp, apply an ice pack (ice cubes in a plastic bag, wrapped in a towel) for 20 minutes. Do this every 1-2 hours until the swelling starts to go down. Do not use aspirin or ibuprofen (Motrin, Advil) after a head injury. You may use acetaminophen (Tylenol) to control pain, unless another pain medicine was prescribed. [NOTE: If you have chronic liveror kidney disease or ever had a stomach ulcer or GI bleeding, talk with your doctor before using these medicines.] For the next 24 hours: Do not take alcohol, sedatives or medicines that make you sleepy. Avoid strenuous activities. No lifting or straining. If you have had any symptoms of a concussion today (nausea, vomiting, dizziness, confusion, headache, memory loss or if you were knocked out), do not return to sports or any activity that could result in another head injury until all symptoms are gone and you have been cleared by your doctor. A second head injury before fully recovering from the first one can lead to serious brain injury. Follow Up with your doctor if symptoms are not improving after 24 hours, or as directed. [NOTE: A radiologist will review any X-rays or CT scans that were taken. We will notify you of any new findings that may affect your care.] Get Prompt Medical Attention if any of the following WARNING SIGNS occur: Repeated vomiting Severe or worsening headache or dizziness Unusual drowsiness, or unable to awaken as usual Confusion or change in behavior or speech, memory loss, blurred vision Convulsion (seizure) Increasing scalp or face swelling Redness, warmth or pus from the swollen area Fluid drainage or bleeding from the nose or ears [id number] [employer] [address] [place] [address]. All rights reserved. This information is not intended as a substitute for professional medical care. Always follow yourhealthcare professional's instructions. Follow Up Care 02/23/2021 12:24:39 With:KATHERINE MUNOZ MD Address: [address] [place] [phone] When:2-4 days [facility] 11-02-2021 Evaluation + Plan note Diagnostic Tests Pending * Urine Culture 02/08/21 [facility] 11-02-2021 Hospital Discharge instructions Patient Education 02/08/2021 09:25:06 Abdominal Pain Abdominal Pain Abdominal pain is pain in the stomach or belly area. Everyone has this pain from time to time. In many cases it goes away on its own. But abdominal pain can sometimes be due to a serious problem, such as appendicitis. So it s important to know when to get help. Causes of abdominal pain There are many possible causes of abdominal pain. Common causes in adults include: Constipation, diarrhea, or gas Stomach acid flowing back up into the esophagus (acid reflux or heartburn) Severe acid reflux, called GERD (gastroesophageal reflux disease) A sore in the lining of the stomach or small intestine (peptic ulcer) Inflammation of the gallbladder, liver, or pancreas Gallstones or kidney stones Appendicitis Intestinal blockage An internal organ pushing through a muscle or other tissue (hernia) Urinary tract infections In women, menstrual cramps, fibroids, ovarian cysts, pelvic inflammatory disease, or endometriosis Inflammation or infection of the intestines, including Crohn's disease and ulcerative colitis Irritable bowel syndrome Diagnosing the cause of abdominal pain Your healthcare provider will give you a physical exam help find the cause of your pain. If needed,you will have tests. Belly pain has many possible causes. So it can be hard to find the reason for your pain. Giving details about your pain can help. Tell your provider where and when you feel the pain, and what makes it better or worse. Also let your provider know if you have other symptoms such as: Fever Tiredness Upset stomach (nausea) Vomiting Changes in bathroom habits Blood in the stool or black, tarry stool Weight loss that you can't explain (involuntary weight loss?) Also report any family history of stomach or intestinal problems, or cancers. Tell your provider about all your alcohol use and drug use. Tell your provider about all medicines you use, including herbs, vitamins, and supplements. Treating abdominal pain Some causes of pain need emergency medical treatment right away. These include appendicitis or a bowel blockage. Other problems can be treated with rest, fluids, or medicines. Your healthcare provider can give you specific instructions for treatment or self-care based on what is causing your pain. If you have vomiting or diarrhea, sip water or other clear fluids. When you are ready to eat solid foods again, start with small amounts of dhbq-de-zdqmvg, low- fat foods. These include apple sauce, toast, or crackers. When to get medical care Call 911 or go to the hospital right away if you: Can t pass stool and are vomiting Are vomiting blood or have bloody diarrhea or black, tarry diarrhea Have chest, neck, or shoulder pain Feel like you might pass out Have pain in your shoulder blades with nausea Have sudden, severe belly pain Have new, severe pain unlike any you have felt before Have a belly that is rigid, hard, and hurts to touch Call your healthcare provider if you have: Pain for more than 5 days Bloating for more than 2 days Diarrhea for more than 5 days A fever of 100.4 F (38 C) or higher, or as directed by your healthcare provider Pain that gets worse Weight loss for no reason Continued lack of appetite Blood in your stool How to prevent abdominal pain Here are some tips to help prevent abdominal pain: Eat smaller amounts of food at each meal. Don't eat greasy, fried, or other high-fat foods. Don't eat foods that give you gas. Exercise regularly. Drink plenty of fluids. To help prevent GERD symptoms: Quit smoking. Reduce alcohol and foods that increase stomach acid. Don't use aspirin or blvq-zpu-ntpvmli pain and fever medicines, if possible. This includes nonsteroidal anti-inflammatory drugs (NSAIDs). Lose excess weight. Finish eating at least 2 hours before you go to bed or lie down. Raise the head of your bed. [id number] [employer] [address] [place] [address]. All rights reserved. This information is not intended as a substitute for professional medical care. Always follow yourhealthcare professional's instructions. Follow Up Care 02/08/2021 07:40:51 With:KATHERINE MUNOZ MD Address: [address] [place] [phone] When:2-4 days With:Go to emergency room if symptoms worsen Address:Unknown When:2-4 days [facility] 10-21-2021 Evaluation + Plan note Diagnostic Tests Pending * Urine Culture 01/27/21 [facility] 10-21-2021 Hospital Discharge instructions Patient Education 01/27/2021 11:56:05 ANISA ESTEBAN (CUSTOM) Result type:CT Abdomen/Pelvis w/o Contrast Result date:January 27, 2021 11:37 EDT Result status:Auth (Verified) Result title:CT ABDOMEN/PELVIS W/O CONTRAST Performed by:DOC SELF MD on January 27, 2021 11:32 EDT Cosigned by:DOC SELF MD Verified by:DOC SELF MD on January 27, 2021 11:37 EDT Encounter info:[id number], JOSE ARMANDO KLEIN, Emergency, 01/27/2021 - Contributor system:[employer] * Final Report * [id number] ORIGINAL EXAMINATION: CT OF THE ABDOMEN AND PELVIS WITHOUT CONTRAST 01/27/2021 11:37 am TECHNIQUE: CT of the abdomen and pelvis was performed without the administration of intravenous contrast. Multiplanar reformatted images are provided for review. Dose modulation, iterative reconstruction, and/or weight based adjustment of the mA/kV was utilized to reduce the radiation dose to as low as reasonably achievable. COMPARISON: 01/07/2021. HISTORY: ORDERING SYSTEM PROVIDED HISTORY: Reason for Exam: abdominal pain FINDINGS: The visualized lung bases are clear. No radiodense urinary calculus is identified. No hydroureteronephrosis. No filling defect is identified in the urinary bladder. No suspicious findings are identified in the visualized portion of the unenhanced liver. The spleen, adrenal glands and pancreas are grossly unremarkable. No filling defect identified in the gallbladder. Atherosclerosis noted in the aorta. No inflammatory changes seen of the colon or the small bowel. Hysterectomy changes noted. No enlarged lymph nodes seen in the pelvis, retroperitoneum or mesentery. Neurostimulator device is seen. There are degenerative changes in the spine. Multilevel Schmorl node deformities visible. Surgical changes also visible at L5-S1. Bilateral L5 pars defects noted. IMPRESSION: 1. No radiodense calculus. No hydronephrosis. 2. No inflammatory changes. 3. Incidental findings, as above Interpreted by: Doc Self MD Preliminary Report By: Doc Self MD Electronically signed By Doc Self MD Dictated Date: 01/27/2021 11:44:21 AM Prelim Date: 01/27/2021 11:48:27 AM Sign Date: 01/27/2021 11:48:27 AM Ordering Provider: SHILO HAM IMAGE This document has an image Document Released: 03/26/2006 Document Revised: 03/12/2013 Document Reviewed: 03/27/2014 [employer] Patient Information 2015 [employer]. This information is not intended to replace advicegiven to you by your health care provider. Make sure you discuss any questions you have with your health care provider. 01/27/2021 11:54:57 Hypokalemia Hypokalemia Hypokalemia means a low level of potassium in the blood. This most often occurs in people who take water pills (diuretics). It can also occur because of severe vomiting or diarrhea. You may also haveit if you take laxatives for long periods of time. It sometimes happens if you have low magnesium (hypomagnesemia). If you have this, your healthcare provider will treat the low magnesium first. A mild case of hypokalemia usually causes no symptoms. It is only found with blood testing. More severe potassium loss causes overall weakness, muscle or abdominal cramps, rapid or irregular heartbeats (heart palpitations), low blood pressure, and muscle weakness. Home care Take any potassium supplements as prescribed. Eat foods rich in potassium. The highest amount is found in avocado, baked potatoes, spinach, cantaloupe, cod, halibut, salmon, and scallops. White, red, or clay beans are also very good sources. A modest amount of potassium is found in orange juice, bananas, carrots, and tomato juice. If you take certain types of diuretics, you will also need to take potassium supplements. If you take a diuretic, discuss potassium supplements with your doctor. Follow-up care Follow up with your healthcare provider for a repeat blood test within the next week, or as advisedby our staff. When to seek medical advice Call your healthcare provider right away if any of the following occur: Increased weakness, fatigue, or muscle cramps Dizziness Call 911 Call 911 if any of the following occur: Irregular heartbeat, extra beats, or very fast heart rate Loss of consciousness [id number] [employer] [address] [place] [address]. All rights reserved. This information is not intended as a substitute for professional medical care. Always follow yourhealthcare professional's instructions. 01/27/2021 11:54:55 Vomiting (Adult) Vomiting (Adult) Vomiting is a common symptom that may be due to different causes. These include gastroenteritis (stomach flu), food poisoning and gastritis. There are other more serious causes of vomiting which may be hard to diagnose early in the illness. Therefore, it is important to watch for the warning signs listed below. The main danger from repeated vomiting is dehydration. This is due to excess loss of water and minerals from the body. When this occurs, your body fluids must be replaced. Home care If symptoms are severe, rest at home for the next 24 hours. Because your symptoms may be from an infection, wash your hands often and well. If soap and water are not available, use alcohol-based principal data architect to keep from spreading the infection to others. Wash your hands for at least 20 seconds. Humming the happy birthday song twice while you wash is aneasy way to make sure you've washed for 20 seconds. Wash your hands after using the toilet, before and after preparing food, before eating food, after changing a diaper, cleaning a wound, caring for a sick person, and blowing your nose, coughing, or sneezing. You should also wash your hands after caring for someone who is sick, touching pet food, ortreats, and touching an animal, or animal waste. You may use acetaminophen or NSAID medicines like ibuprofen or naproxen to control fever, unless another medicine was prescribed. If you have chronic liver or kidney disease or ever had a stomach ulcer or gastrointestinal bleeding, talk with your doctor before using these medicines. Aspirin should never be used in anyone under 18 years of age who is ill with a fever. It may cause severe liver damage. Don't use NSAID medicines if you are already taking one for another condition (like arthritis) or are on aspirin (such as for heart disease, or after a stroke) Don't use tobacco and or drink alcohol, which may worsen your symptoms. If medicines for vomiting were prescribed, take as directed. Once vomiting stops, then follow these guidelines: During the first 12 to 24 hours follow the diet below: Fruit juices. Apple, grape juice, clear fruit drinks, and electrolyte replacement drinks. Beverages. Soft drinks without caffeine; mineral water (plain or flavored), decaffeinated tea and coffee. Soups. Clear broth and bouillon Desserts. Plain gelatin, ice pops, and fruit juice bars. As you feel better, you may add 6 to 8 ounces of yogurt per day. During the next 24 hours you may add the following to the above: Hot cereal, plain toast, bread, rolls, crackers Plain noodles, rice, mashed potatoes, chicken noodle or rice soup Unsweetened canned fruit such as applesauce, bananas (avoid pineapple and citrus) Limit caffeine and chocolate. No spices or seasonings except salt. During the next 24 hours: Gradually resume a normal diet, as you feel better and your symptoms lessen. Follow-up care Follow up with your healthcare provider, or as advised. When to seek medical advice Call your healthcare provider right away if any of these occur: Constant right-sided lower belly pain or increasing general belly pain Continued vomiting (unable to keep liquids down) for 24 hours Vomiting blood or coffee grounds Swollen belly Frequent diarrhea (more than 5 times a day); blood (red or black color) or mucus in diarrhea Reduced urine output or extreme thirst Weakness, dizziness or fainting Unusually drowsy or confused Fever of 100.4 F (38 C) oral or higher, or as directed Yellow color of the eyes or skin [id number] [employer]. [address] [place] [address]. All rights reserved. This information is not intended as a substitute for professional medical care. Always follow yourhealthcare professional's instructions. 01/27/2021 10:43:39 Abdominal Pain Abdominal Pain Abdominal pain is pain in the stomach or belly area. Everyone has this pain from time to time. In many cases it goes away on its own. But abdominal pain can sometimes be due to a serious problem, such as appendicitis. So it s important to know when to get help. Causes of abdominal pain There are many possible causes of abdominal pain. Common causes in adults include: Constipation, diarrhea, or gas Stomach acid flowing back up into the esophagus (acid reflux or heartburn) Severe acid reflux, called GERD (gastroesophageal reflux disease) A sore in the lining of the stomach or small intestine (peptic ulcer) Inflammation of the gallbladder, liver, or pancreas Gallstones or kidney stones Appendicitis Intestinal blockage An internal organ pushing through a muscle or other tissue (hernia) Urinary tract infections In women, menstrual cramps, fibroids, ovarian cysts, pelvic inflammatory disease, or endometriosis Inflammation or infection of the intestines, including Crohn's disease and ulcerative colitis Irritable bowel syndrome Diagnosing the cause of abdominal pain Your healthcare provider will give you a physical exam help find the cause of your pain. If needed,you will have tests. Belly pain has many possible causes. So it can be hard to find the reason for your pain. Giving details about your pain can help. Tell your provider where and when you feel the pain, and what makes it better or worse. Also let your provider know if you have other symptoms such as: Fever Tiredness Upset stomach (nausea) Vomiting Changes in bathroom habits Blood in the stool or black, tarry stool Weight loss that you can't explain (involuntary weight loss?) Also report any family history of stomach or intestinal problems, or cancers. Tell your provider about all your alcohol use and drug use. Tell your provider about all medicines you use, including herbs, vitamins, and supplements. Treating abdominal pain Some causes of pain need emergency medical treatment right away. These include appendicitis or a bowel blockage. Other problems can be treated with rest, fluids, or medicines. Your healthcare provider can give you specific instructions for treatment or self-care based on what is causing your pain. If you have vomiting or diarrhea, sip water or other clear fluids. When you are ready to eat solid foods again, start with small amounts of riue-oi-tggpwo, low- fat foods. These include apple sauce, toast, or crackers. When to get medical care Call 911 or go to the hospital right away if you: Can t pass stool and are vomiting Are vomiting blood or have bloody diarrhea or black, tarry diarrhea Have chest, neck, or shoulder pain Feel like you might pass out Have pain in your shoulder blades with nausea Have sudden, severe belly pain Have new, severe pain unlike any you have felt before Have a belly that is rigid, hard, and hurts to touch Call your healthcare provider if you have: Pain for more than 5 days Bloating for more than 2 days Diarrhea for more than 5 days A fever of 100.4 F (38 C) or higher, or as directed by your healthcare provider Pain that gets worse Weight loss for no reason Continued lack of appetite Blood in your stool How to prevent abdominal pain Here are some tips to help prevent abdominal pain: Eat smaller amounts of food at each meal. Don't eat greasy, fried, or other high-fat foods. Don't eat foods that give you gas. Exercise regularly. Drink plenty of fluids. To help prevent GERD symptoms: Quit smoking. Reduce alcohol and foods that increase stomach acid. Don't use aspirin or vspx-kgg-rhzkkon pain and fever medicines, if possible. This includes nonsteroidal anti-inflammatory drugs (NSAIDs). Lose excess weight. Finish eating at least 2 hours before you go to bed or lie down. Raise the head of your bed. [id number] [employer]. [address] [place] [address], [place] [address]. All rights reserved. This information is not intended as a substitute for professional medical care. Always follow yourhealthcare professional's instructions. Follow Up Care 01/27/2021 10:12:38 With:Go to emergency room if symptoms worsen Address:Unknown When:2-4 days With:KATHERINE MUNOZ MD Address: [address] [place] [address] [place], [place] [phone] [phone] When:2-4 days [facility] 10-17-2021 Evaluation + Plan note Diagnostic Tests Pending * Urine Culture 01/23/21 [facility] 10-17-2021 Hospital Discharge instructions Patient Education 01/23/2021 03:20:03 Pyelonephritis, Female (Adult) Kidney Infection (Adult Female) An infection in one or both kidneys is called pyelonephritis. It usually happens when bacteria (or rarely, viruses, fungi, or other disease-causing organisms) get into the kidney. The bacteria (or other disease-causing organisms) can enter the kidneys from the bladder or blood traveling from other parts of the body. A kidney infection can become serious. It can cause severe illness, scarring ofthe kidneys, or kidney failure if not treated properly. Common causes for this problem include: Not keeping the genital area clean and dry, which promotes the growth of bacteria Wiping back to front which drags bacteria from the rectum toward the urinary opening (urethra) Wearing tight pants or underwear (this lets moisture build up in the genital area, which helps bacteria grow) Holding urine in for long periods of time Dehydration Kidney infections can cause symptoms similar to a bladder infection. Symptoms include: Pain (or burning) when urinating Having to urinate more often than usual Blood in the urine (pink or red) Abdominal pain or discomfort, usually in the lower abdomen Pain in the side or back Pain above the pubic bone Fever or chills Vomiting Loss of appetite Treatment is oral antibiotics, or in more severe cases, intramuscular or IV antibiotics. These are started right away and may be changed once urine culture results determine the infecting organisms. Treatment helps prevent a more serious kidney infection. Medicines Medicines can help in the treatment of a bladder infection: Take antibiotics until they are used up, even if you feel better. It is important to finish them tomake sure the infection is gone. Unless another medicine was prescribed, you can use ajey-xos-leynpnl medicines for pain, fever, or discomfort. If you have chronic liver of kidney disease, talk with your healthcare provider before using these medicines. Also talk with your provider if you've ever had a stomach ulcer or gastrointestinal (GI) bleeding, or are taking blood thinners. Home care The following are general care guidelines: Stay home from work or school. Rest in bed until your fever breaks and you are feeling better, or as advised by your healthcare provider. Drink lots of fluid unless you must restrict fluids for other medical reasons. This will force the medicine into your urinary system and flush the bacteria out of your body. Ask your healthcare provider how much you should drink. Don't have sex until you have finished all of your medicine and your symptoms are gone. Don't have caffeine, alcohol, or spicy foods. These foods may irritate the kidneys and bladder. Don't take bubble baths. Sensitivity to the chemicals in bubble baths can irritate the urethra. Make sure you wipe from front to back after using the toilet. Wear loose cloths and cotton underwear. Prevention These self-care steps can help prevent future infections: Drink plenty of fluids to prevent dehydration and flush out the bladder. Do this unless you must restrict fluids for other health reasons, or your healthcare provider told you not to. Proper cleaning after going to the bathroom in important. Make sure you wipe from front to back after using the toilet. Urinate more often. Don't try to hold urine in for a long time. Don't wear tight-fitting pants and underwear. Improve your diet to prevent constipation. Eat more fruits, vegetables, and fiber. Eat less junk and fatty foods. Constipation can make a urinary tract infection more likely. Talk with your healthcare provider if you have trouble with bowel movements. Urinate right after intercourse to flush out the bladder. Follow-up care Follow up with your healthcare provider, or as advised. Additional testing may be needed to make sure the infection has cleared. Close follow-up and further testing is very important to find the cause and to prevent future infections. If a urine culture was done, you will be contacted if your treatment needs to be changed. If directed, you may call to find out the results. If you had an X-ray, CT scan, or other diagnostic test, you will be notified of any new findings that may affect your care. Call 911 Call 911 if any of the following occur: Trouble breathing Fainting or loss of consciousness Rapid or very slow heart rate Weakness, dizziness, or fainting Difficulty arousing or confusion When to seek medical advice Call your healthcare provider right away if any of these occur: Fever 100.4 F (38 C) or higher, or as directed by your healthcare provider Not feeling better within 1 to 2 days after starting antibiotics Any symptom that continues after 3 days of treatment Increasing pain in the stomach, back, side, or groin area Repeated vomiting Not able to take prescribed medicine due to nausea or another reason Bloody, dark-colored, or foul smelling urine Trouble urinating or decreased urine output No urine for 8 hours, no tears when crying, sunken eyes, or dry mouth [id number] [employer] [address] [place] [address]. All rights reserved. This information is not intended as a substitute for professional medical care. Always follow yourhealthcare professional's instructions. Follow Up Care 01/23/2021 01:10:41 With:KATHERINE MUNOZ Address: [address] [place] [phone] Business (1) When:2-4 days Comments:Schedule an appointment for close follow-up.Push fluids, bland diet.Use Tylenol or Advil for fever and discomfort as needed.Continue Ultram for severe pain as needed.Use antibiotic (Keflex) to treat the UTI and Zofran for nausea and vomiting as needed.Return to the ED if symptoms worsen. [facility] 02-19-2018 History of Past illness Narrative* Problem Noted Date Resolved Date Failed back syndrome of lumbar spine 05/28/2017 04/18/2018 Overview: Added automatically from request for surgery [id number] Postlaminectomy syndrome of lumbar region 201604/18/2018 Overview: Added automatically from request for surgery [id number] Other chronic pain 01/19/2017 04/18/2018 Overview: Added automatically from request for surgery [id number] Myofascial muscle pain 10/23/2016 9 Chronic pain 05/04/2016 04/18/2018 Postlaminectomy syndrome, lumbar region 05/04/1904/18/2018 Chronic low back pain 06/21/2015 04/18/2018 documented as of this encounter (statuses as of 07/12/2021) [facility] History of Past illness Narrative* Problem Noted Date Resolved Date Failed back syndrome of lumbar spine 05/28/2017 04/18/2018 Overview: Added automatically from request for surgery [id number] Postlaminectomy syndrome of lumbar region 201604/18/2018 Overview: Added automatically from request for surgery [id number] Other chronic pain 01/19/2017 04/18/2018 Overview: Added automatically from request for surgery [id number] Myofascial muscle pain 10/23/2016 9 Chronic pain 05/04/2016 04/18/2018 Postlaminectomy syndrome, lumbar region 05/04/1904/18/2018 Chronic low back pain 06/21/2015 04/18/2018 documented as of this encounter (statuses as of 08/18/2021) [facility] History of Past illness Narrative* Problem Noted Date Resolved Date Failed back syndrome of lumbar spine 05/28/2017 04/18/2018 Overview: Added automatically from request for surgery [id number] Postlaminectomy syndrome of lumbar region 201604/18/2018 Overview: Added automatically from request for surgery [id number] Other chronic pain 01/19/2017 04/18/2018 Overview: Added automatically from request for surgery [id number] Myofascial muscle pain 10/23/2016 9 Chronic pain 05/04/2016 04/18/2018 Postlaminectomy syndrome, lumbar region 05/04/19 17 04/18/2018 Chronic low back pain 06/21/2015 04/18/2018 documented as of this encounter (statuses as of 08/18/2021) [facility] History of Past illness Narrative* Problem Noted Date Resolved Date Failed back syndrome of lumbar spine 05/28/2017 04/18/2018 Overview: Added automatically from request for surgery [id number] Postlaminectomy syndrome of lumbar region 201604/18/2018 Overview: Added automatically from request for surgery [id number] Other chronic pain 01/19/2017 04/18/2018 Overview: Added automatically from request for surgery [id number] Myofascial muscle pain 10/23/2016 9 Chronic pain 05/04/2016 04/18/2018 Postlaminectomy syndrome, lumbar region 05/04/1904/18/2018 Chronic low back pain 06/21/2015 04/18/2018 documented as of this encounter (statuses as of 08/19/2021) [facility] History of Past illness Narrative* Problem Noted Date Resolved Date Failed back syndrome of lumbar spine 05/28/2017 04/18/2018 Overview: Added automatically from request for surgery [id number] Postlaminectomy syndrome of lumbar region 201604/18/2018 Overview: Added automatically from request for surgery [id number] Other chronic pain 01/19/2017 04/18/2018 Overview: Added automatically from request for surgery [id number] Myofascial muscle pain 10/23/2016 9 Chronic pain 05/04/2016 04/18/2018 Postlaminectomy syndrome, lumbar region 05/04/19 17 04/18/2018 Chronic low back pain 06/21/2015 04/18/2018 documented as of this encounter (statuses as of 08/22/2021) [facility] History of Past illness Narrative* Problem Noted Date Resolved Date Failed back syndrome of lumbar spine 05/28/2017 04/18/2018 Overview: Added automatically from request for surgery [id number] Postlaminectomy syndrome of lumbar region 201604/18/2018 Overview: Added automatically from request for surgery [id number] Other chronic pain 01/19/2017 04/18/2018 Overview: Added automatically from request for surgery [id number] Myofascial muscle pain 10/23/2016 9 Chronic pain 05/04/2016 04/18/2018 Postlaminectomy syndrome, lumbar region 05/04/1904/18/2018 Chronic low back pain 06/21/2015 04/18/2018 documented as of this encounter (statuses as of 09/08/2021) [facility] History of Past illness Narrative* Problem Noted Date Resolved Date Failed back syndrome of lumbar spine 05/28/2017 04/18/2018 Overview: Added automatically from request for surgery [id number] Postlaminectomy syndrome of lumbar region 201604/18/2018 Overview: Added automatically from request for surgery [id number] Other chronic pain 01/19/2017 04/18/2018 Overview: Added automatically from request for surgery [id number] Myofascial muscle pain 10/23/2016 9 Chronic pain 05/04/2016 04/18/2018 Postlaminectomy syndrome, lumbar region 05/04/1904/18/2018 Chronic low back pain 06/21/2015 04/18/2018 documented as of this encounter (statuses as of 09/27/2021) [facility] History of Past illness Narrative* Problem Noted Date Resolved Date Failed back syndrome of lumbar spine 05/28/2017 04/18/2018 Overview: Added automatically from request for surgery [id number] Postlaminectomy syndrome of lumbar region 201604/18/2018 Overview: Added automatically from request for surgery [id number] Other chronic pain 01/19/2017 04/18/2018 Overview: Added automatically from request for surgery [id number] Myofascial muscle pain 10/23/2016 9 Chronic pain 05/04/2016 04/18/2018 Postlaminectomy syndrome, lumbar region 05/04/19 17 04/18/2018 Chronic low back pain 06/21/2015 04/18/2018 documented as of this encounter (statuses as of 09/29/2021) [facility] History of Past illness Narrative* Problem Noted Date Resolved Date Failed back syndrome of lumbar spine 05/28/2017 04/18/2018 Overview: Added automatically from request for surgery [id number] Postlaminectomy syndrome of lumbar region 201604/18/2018 Overview: Added automatically from request for surgery [id number] Other chronic pain 01/19/2017 04/18/2018 Overview: Added automatically from request for surgery [id number] Myofascial muscle pain 10/23/2016 9 Chronic pain 05/04/2016 04/18/2018 Postlaminectomy syndrome, lumbar region 05/04/1904/18/2018 Chronic low back pain 06/21/2015 04/18/2018 documented as of this encounter (statuses as of 10/20/2021) [facility] History of Past illness Narrative* Problem Noted Date Resolved Date Failed back syndrome of lumbar spine 05/28/2017 04/18/2018 Overview: Added automatically from request for surgery [id number] Postlaminectomy syndrome of lumbar region 201604/18/2018 Overview: Added automatically from request for surgery [id number] Other chronic pain 01/19/2017 04/18/2018 Overview: Added automatically from request for surgery [id number] Myofascial muscle pain 10/23/2016 9 Chronic pain 05/04/2016 04/18/2018 Postlaminectomy syndrome, lumbar region 05/04/19 17 04/18/2018 Chronic low back pain 06/21/2015 04/18/2018 documented as of this encounter (statuses as of 10/22/2021) [facility] History of Past illness Narrative* Problem Noted Date Resolved Date Failed back syndrome of lumbar spine 05/28/2017 04/18/2018 Overview: Added automatically from request for surgery [id number] Postlaminectomy syndrome of lumbar region 201604/18/2018 Overview: Added automatically from request for surgery [id number] Other chronic pain 01/19/2017 04/18/2018 Overview: Added automatically from request for surgery [id number] Myofascial muscle pain 10/23/2016 9 Chronic pain 05/04/2016 04/18/2018 Postlaminectomy syndrome, lumbar region 05/04/1904/18/2018 Chronic low back pain 06/21/2015 04/18/2018 documented as of this encounter (statuses as of 11/03/2021) [facility] History of Past illness Narrative* Problem Noted Date Resolved Date Failed back syndrome of lumbar spine 05/28/2017 04/18/2018 Overview: Added automatically from request for surgery [id number] Postlaminectomy syndrome of lumbar region 201604/18/2018 Overview: Added automatically from request for surgery [id number] Other chronic pain 01/19/2017 04/18/2018 Overview: Added automatically from request for surgery [id number] Myofascial muscle pain 10/23/2016 9 Chronic pain 05/04/2016 04/18/2018 Postlaminectomy syndrome, lumbar region 05/04/1904/18/2018 Chronic low back pain 06/21/2015 04/18/2018 documented as of this encounter (statuses as of 11/28/2021) [facility] History of Past illness Narrative* Problem Noted Date Resolved Date Failed back syndrome of lumbar spine 05/28/2017 04/18/2018 Overview: Added automatically from request for surgery [id number] Postlaminectomy syndrome of lumbar region 201604/18/2018 Overview: Added automatically from request for surgery [id number] Other chronic pain 01/19/2017 04/18/2018 Overview: Added automatically from request for surgery [id number] Myofascial muscle pain 10/23/2016 9 Chronic pain 05/04/2016 04/18/2018 Postlaminectomy syndrome, lumbar region 05/04/1904/18/2018 Chronic low back pain 06/21/2015 04/18/2018 documented as of this encounter (statuses as of 12/22/2021) [facility] History of Past illness Narrative* Problem Noted Date Resolved Date Failed back syndrome of lumbar spine 05/28/2017 04/18/2018 Overview: Added automatically from request for surgery [id number] Postlaminectomy syndrome of lumbar region 201604/18/2018 Overview: Added automatically from request for surgery [id number] Other chronic pain 01/19/2017 04/18/2018 Overview: Added automatically from request for surgery [id number] Myofascial muscle pain 10/23/2016 9 Chronic pain 05/04/2016 04/18/2018 Postlaminectomy syndrome, lumbar region 05/04/1904/18/2018 Chronic low back pain 06/21/2015 04/18/2018 documented as of this encounter (statuses as of 12/23/2021) [facility] History of Past illness Narrative* Problem Noted Date Resolved Date Failed back syndrome of lumbar spine 05/28/2017 04/18/2018 Overview: Added automatically from request for surgery [id number] Postlaminectomy syndrome of lumbar region 201604/18/2018 Overview: Added automatically from request for surgery [id number] Other chronic pain 01/19/2017 04/18/2018 Overview: Added automatically from request for surgery [id number] Myofascial muscle pain 10/23/2016 9 Chronic pain 05/04/2016 04/18/2018 Postlaminectomy syndrome, lumbar region 05/04/1904/18/2018 Chronic low back pain 06/21/2015 04/18/2018 documented as of this encounter (statuses as of 02/13/2022) [facility] History of Past illness Narrative* Problem Noted Date Resolved Date Failed back syndrome of lumbar spine 05/28/2017 04/18/2018 Overview: Added automatically from request for surgery [id number] Postlaminectomy syndrome of lumbar region 201604/18/2018 Overview: Added automatically from request for surgery [id number] Other chronic pain 01/19/2017 04/18/2018 Overview: Added automatically from request for surgery [id number] Myofascial muscle pain 10/23/2016 9 Chronic pain 05/04/2016 04/18/2018 Postlaminectomy syndrome, lumbar region 05/04/1904/18/2018 Chronic low back pain 06/21/2015 04/18/2018 documented as of this encounter (statuses as of 02/23/2022) [facility] History of Past illness Narrative* Problem Noted Date Resolved Date Failed back syndrome of lumbar spine 05/28/2017 04/18/2018 Overview: Added automatically from request for surgery [id number] Postlaminectomy syndrome of lumbar region 201604/18/2018 Overview: Added automatically from request for surgery [id number] Other chronic pain 01/19/2017 04/18/2018 Overview: Added automatically from request for surgery [id number] Myofascial muscle pain 10/23/2016 9 Chronic pain 05/04/2016 04/18/2018 Postlaminectomy syndrome, lumbar region 05/04/19 17 04/18/2018 Chronic low back pain 06/21/2015 04/18/2018 documented as of this encounter (statuses as of 02/23/2022) [facility]2018 History of Past illness Narrative* Problem Noted Date Resolved Date Failed back syndrome of lumbar spine 05/28/2017 04/18/2018 Overview: Added automatically from request for surgery [id number] Postlaminectomy syndrome of lumbar region 201604/18/2018 Overview: Added automatically from request for surgery [id number] Other chronic pain 01/19/2017 04/18/2018 Overview: Added automatically from request for surgery [id number] Myofascial muscle pain 10/23/2016 9 Chronic pain 05/04/2016 04/18/2018 Postlaminectomy syndrome, lumbar region 05/04/1904/18/2018 Chronic low back pain 06/21/2015 04/18/2018 documented as of this encounter (statuses as of 02/24/2022) [facility]2018 History of Past illness Narrative* Problem Noted Date Resolved Date Failed back syndrome of lumbar spine 05/28/2017 04/18/2018 Overview: Added automatically from request for surgery [id number] Postlaminectomy syndrome of lumbar region 201604/18/2018 Overview: Added automatically from request for surgery [id number] Other chronic pain 01/19/2017 04/18/2018 Overview: Added automatically from request for surgery [id number] Myofascial muscle pain 10/23/2016 9 Chronic pain 05/04/2016 04/18/2018 Postlaminectomy syndrome, lumbar region 05/04/1904/18/2018 Chronic low back pain 06/21/2015 04/18/2018 documented as of this encounter (statuses as of 03/14/2022) [facility] History of Past illness Narrative* Problem Noted Date Resolved Date Failed back syndrome of lumbar spine 05/28/2017 04/18/2018 Overview: Added automatically from request for surgery [id number] Postlaminectomy syndrome of lumbar region 201604/18/2018 Overview: Added automatically from request for surgery [id number] Other chronic pain 01/19/2017 04/18/2018 Overview: Added automatically from request for surgery [id number] Myofascial muscle pain 10/23/2016 9 Chronic pain 05/04/2016 04/18/2018 Postlaminectomy syndrome, lumbar region 05/04/1904/18/2018 Chronic low back pain 06/21/2015 04/18/2018 documented as of this encounter (statuses as of 03/23/2022) [facility] History of Past illness Narrative* Problem Noted Date Resolved Date Failed back syndrome of lumbar spine 05/28/2017 04/18/2018 Overview: Added automatically from request for surgery [id number] Postlaminectomy syndrome of lumbar region 201604/18/2018 Overview: Added automatically from request for surgery [id number] Other chronic pain 01/19/2017 04/18/2018 Overview: Added automatically from request for surgery [id number] Myofascial muscle pain 10/23/2016 9 Chronic pain 05/04/2016 04/18/2018 Postlaminectomy syndrome, lumbar region 05/04/1904/18/2018 Chronic low back pain 06/21/2015 04/18/2018 documented as of this encounter (statuses as of 03/24/2022) [facility] History of Past illness Narrative* Problem Noted Date Resolved Date Failed back syndrome of lumbar spine 05/28/2017 04/18/2018 Overview: Added automatically from request for surgery [id number] Postlaminectomy syndrome of lumbar region 201604/18/2018 Overview: Added automatically from request for surgery [id number] Other chronic pain 01/19/2017 04/18/2018 Overview: Added automatically from request for surgery [id number] Myofascial muscle pain 10/23/2016 9 Chronic pain 05/04/2016 04/18/2018 Postlaminectomy syndrome, lumbar region 05/04/19 17 04/18/2018 Chronic low back pain 06/21/2015 04/18/2018 documented as of this encounter (statuses as of 03/28/2022) [facility] History of Past illness Narrative* Problem Noted Date Resolved Date Failed back syndrome of lumbar spine 05/28/2017 04/18/2018 Overview: Added automatically from request for surgery [id number] Postlaminectomy syndrome of lumbar region 201604/18/2018 Overview: Added automatically from request for surgery [id number] Other chronic pain 01/19/2017 04/18/2018 Overview: Added automatically from request for surgery [id number] Myofascial muscle pain 10/23/2016 9 Chronic pain 05/04/2016 04/18/2018 Postlaminectomy syndrome, lumbar region 05/04/1904/18/2018 Chronic low back pain 06/21/2015 04/18/2018 documented as of this encounter (statuses as of 04/13/2022) [facility] History of Past illness Narrative* Problem Noted Date Resolved Date Failed back syndrome of lumbar spine 05/28/2017 04/18/2018 Overview: Added automatically from request for surgery [id number] Postlaminectomy syndrome of lumbar region 201604/18/2018 Overview: Added automatically from request for surgery [id number] Other chronic pain 01/19/2017 04/18/2018 Overview: Added automatically from request for surgery [id number] Myofascial muscle pain 10/23/2016 9 Chronic pain 05/04/2016 04/18/2018 Postlaminectomy syndrome, lumbar region 05/04/1904/18/2018 Chronic low back pain 06/21/2015 04/18/2018 documented as of this encounter (statuses as of 04/14/2022) [facility] History of Past illness Narrative* Problem Noted Date Resolved Date Failed back syndrome of lumbar spine 05/28/2017 04/18/2018 Overview: Added automatically from request for surgery [id number] Postlaminectomy syndrome of lumbar region 201604/18/2018 Overview: Added automatically from request for surgery [id number] Other chronic pain 01/19/2017 04/18/2018 Overview: Added automatically from request for surgery [id number] Myofascial muscle pain 10/23/2016 9 Chronic pain 05/04/2016 04/18/2018 Postlaminectomy syndrome, lumbar region 05/04/1904/18/2018 Chronic low back pain 06/21/2015 04/18/2018 documented as of this encounter (statuses as of 04/14/2022) [facility] History of Past illness Narrative* Problem Noted Date Resolved Date Failed back syndrome of lumbar spine 05/28/2017 04/18/2018 Overview: Added automatically from request for surgery [id number] Postlaminectomy syndrome of lumbar region 201604/18/2018 Overview: Added automatically from request for surgery [id number] Other chronic pain 01/19/2017 04/18/2018 Overview: Added automatically from request for surgery [id number] Myofascial muscle pain 10/23/2016 9 Chronic pain 05/04/2016 04/18/2018 Postlaminectomy syndrome, lumbar region 05/04/19 17 04/18/2018 Chronic low back pain 06/21/2015 04/18/2018 documented as of this encounter (statuses as of 04/24/2022) [facility] History of Past illness Narrative* Problem Noted Date Resolved Date Failed back syndrome of lumbar spine 05/28/2017 04/18/2018 Overview: Added automatically from request for surgery [id number] Postlaminectomy syndrome of lumbar region 201604/18/2018 Overview: Added automatically from request for surgery [id number] Other chronic pain 01/19/2017 04/18/2018 Overview: Added automatically from request for surgery [id number] Myofascial muscle pain 10/23/2016 9 Chronic pain 05/04/2016 04/18/2018 Postlaminectomy syndrome, lumbar region 05/04/1904/18/2018 Chronic low back pain 06/21/2015 04/18/2018 documented as of this encounter (statuses as of 07/04/2022) [facility] History of Past illness Narrative* Problem Noted Date Resolved Date Failed back syndrome of lumbar spine 05/28/2017 04/18/2018 Overview: Added automatically from request for surgery [id number] Postlaminectomy syndrome of lumbar region 201604/18/2018 Overview: Added automatically from request for surgery [id number] Other chronic pain 01/19/2017 04/18/2018 Overview: Added automatically from request for surgery [id number] Myofascial muscle pain 10/23/2016 9 Chronic pain 05/04/2016 04/18/2018 Postlaminectomy syndrome, lumbar region 05/04/1904/18/2018 Chronic low back pain 06/21/2015 04/18/2018 documented as of this encounter (statuses as of 08/03/2022) [facility] History of Past illness Narrative* Problem Noted Date Resolved Date Failed back syndrome of lumbar spine 05/28/2017 04/18/2018 Overview: Added automatically from request for surgery [id number] Postlaminectomy syndrome of lumbar region 201604/18/2018 Overview: Added automatically from request for surgery [id number] Other chronic pain 01/19/2017 04/18/2018 Overview: Added automatically from request for surgery [id number] Myofascial muscle pain 10/23/2016 9 Chronic pain 05/04/2016 04/18/2018 Postlaminectomy syndrome, lumbar region 05/04/19 17 04/18/2018 Chronic low back pain 06/21/2015 04/18/2018 documented as of this encounter (statuses as of 09/08/2022) [facility] History of Past illness Narrative* Problem Noted Date Diagnosed Date Resolved Date Failed back syndrome of lumbar spine 05/28/2017 04/18/2018 Overview: Added automatically from request for surgery [id number] Postlaminectomy syndrome of lumbar region 01/19/2017 04/18/2018 Overview: Added automatically from request for surgery [id number] Other chronic pain 01/19/2017 9 Overview: Added automatically from request for surgery [id number] Myofascial muscle pain 10/23/201604/18 Chronic pain 05/04/2016 04/18/2018 Postlaminectomy syndrome, lumbar region 05/04/2016 04/18/2018 Chronic low back pain 06/21/20152018 documented as of this encounter (statuses as of 01/17/2023) [facility] History of Past illness Narrative* Problem Noted Date Diagnosed Date Resolved Date Failed back syndrome of lumbar spine 05/28/2017 04/18/2018 Overview: Added automatically from request for surgery [id number] Postlaminectomy syndrome of lumbar region 01/19/2017 04/18/2018 Overview: Added automatically from request for surgery [id number] Other chronic pain 01/19/2017 9 Overview: Added automatically from request for surgery [id number] Myofascial muscle pain 10/23/201604/18 Chronic pain 05/04/2016 04/18/2018 Postlaminectomy syndrome, lumbar region 05/04/2016 04/18/2018 Chronic low back pain 06/21/20152018 documented as of this encounter (statuses as of 01/23/2023) [facility] History of Past illness Narrative* Problem Noted Date Diagnosed Date Resolved Date Failed back syndrome of lumbar spine 05/28/2017 04/18/2018 Overview: Added automatically from request for surgery [id number] Postlaminectomy syndrome of lumbar region 01/19/2017 04/18/2018 Overview: Added automatically from request for surgery [id number] Other chronic pain 01/19/2017 9 Overview: Added automatically from request for surgery [id number] Myofascial muscle pain 10/23/201604/18 Chronic pain 05/04/2016 04/18/2018 Postlaminectomy syndrome, lumbar region 05/04/2016 04/18/2018 Chronic low back pain 06/21/20152018 documented as of this encounter (statuses as of 01/30/2023) [facility] History of Past illness Narrative* Problem Noted Date Diagnosed Date Resolved Date Failed back syndrome of lumbar spine 05/28/2017 04/18/2018 Overview: Added automatically from request for surgery [id number] Postlaminectomy syndrome of lumbar region 01/19/2017 04/18/2018 Overview: Added automatically from request for surgery [id number] Other chronic pain 01/19/2017 9 Overview: Added automatically from request for surgery [id number] Myofascial muscle pain 10/23/201604/18 Chronic pain 05/04/2016 04/18/2018 Postlaminectomy syndrome, lumbar region 05/04/2016 04/18/2018 Chronic low back pain 06/21/20152018 documented as of this encounter (statuses as of 02/01/2023) [facility] History of Past illness Narrative* Problem Noted Date Diagnosed Date Resolved Date Failed back syndrome of lumbar spine 05/28/2017 04/18/2018 Overview: Added automatically from request for surgery [id number] Postlaminectomy syndrome of lumbar region 01/19/2017 04/18/2018 Overview: Added automatically from request for surgery [id number] Other chronic pain 01/19/2017 9 Overview: Added automatically from request for surgery [id number] Myofascial muscle pain 10/23/201604/18 Chronic pain 05/04/2016 04/18/2018 Postlaminectomy syndrome, lumbar region 05/04/2016 04/18/2018 Chronic low back pain 06/21/20152018 documented as of this encounter (statuses as of 02/14/2023) [facility] History of Past illness Narrative* Problem Noted Date Diagnosed Date Resolved Date Failed back syndrome of lumbar spine 05/28/2017 04/18/2018 Overview: Added automatically from request for surgery [id number] Postlaminectomy syndrome of lumbar region 01/19/2017 04/18/2018 Overview: Added automatically from request for surgery [id number] Other chronic pain 01/19/2017 9 Overview: Added automatically from request for surgery [id number] Myofascial muscle pain 10/23/201604/18 Chronic pain 05/04/2016 04/18/2018 Postlaminectomy syndrome, lumbar region 05/04/2016 04/18/2018 Chronic low back pain 06/21/20152018 documented as of this encounter (statuses as of 05/11/2023) [facility] History of Past illness Narrative* Problem Noted Date Diagnosed Date Resolved Date Failed back syndrome of lumbar spine 05/28/2017 04/18/2018 Overview: Added automatically from request for surgery [id number] Postlaminectomy syndrome of lumbar region 01/19/2017 04/18/2018 Overview: Added automatically from request for surgery [id number] Other chronic pain 01/19/2017 9 Overview: Added automatically from request for surgery [id number] Myofascial muscle pain 10/23/201604/18 Chronic pain 05/04/2016 04/18/2018 Postlaminectomy syndrome, lumbar region 05/04/2016 04/18/2018 Chronic low back pain 06/21/20152018 documented as of this encounter (statuses as of 05/22/2023) [facility] History of Past illness Narrative* Problem Noted Date Diagnosed Date Resolved Date Failed back syndrome of lumbar spine 05/28/2017 04/18/2018 Overview: Added automatically from request for surgery [id number] Postlaminectomy syndrome of lumbar region 01/19/2017 04/18/2018 Overview: Added automatically from request for surgery [id number] Other chronic pain 01/19/2017 9 Overview: Added automatically from request for surgery [id number] Myofascial muscle pain 10/23/201604/18 Chronic pain 05/04/2016 04/18/2018 Postlaminectomy syndrome, lumbar region 05/04/2016 04/18/2018 Chronic low back pain 06/21/20152018 documented as of this encounter (statuses as of 05/29/2023) [facility] History of Past illness Narrative* Problem Noted Date Diagnosed Date Resolved Date Failed back syndrome of lumbar spine 05/28/2017 04/18/2018 Overview: Added automatically from request for surgery [id number] Postlaminectomy syndrome of lumbar region 01/19/2017 04/18/2018 Overview: Added automatically from request for surgery [id number] Other chronic pain 01/19/2017 9 Overview: Added automatically from request for surgery [id number] Myofascial muscle pain 10/23/201604/18 Chronic pain 05/04/2016 04/18/2018 Postlaminectomy syndrome, lumbar region 05/04/2016 04/18/2018 Chronic low back pain 06/21/20152018 documented as of this encounter (statuses as of 06/07/2023) [facility] History of Past illness Narrative* Problem Noted Date Diagnosed Date Resolved Date Failed back syndrome of lumbar spine 05/28/2017 04/18/2018 Overview: Added automatically from request for surgery [id number] Postlaminectomy syndrome of lumbar region 01/19/2017 04/18/2018 Overview: Added automatically from request for surgery [id number] Other chronic pain 01/19/2017 9 Overview: Added automatically from request for surgery [id number] Myofascial muscle pain 10/23/201604/18 Chronic pain 05/04/2016 04/18/2018 Postlaminectomy syndrome, lumbar region 05/04/2016 04/18/2018 Chronic low back pain 06/21/20152018 documented as of this encounter (statuses as of 06/18/2023) [facility] History of Past illness Narrative* Problem Noted Date Diagnosed Date Resolved Date Failed back syndrome of lumbar spine 05/28/2017 04/18/2018 Overview: Added automatically from request for surgery [id number] Postlaminectomy syndrome of lumbar region 01/19/2017 04/18/2018 Overview: Added automatically from request for surgery [id number] Other chronic pain 01/19/2017 9 Overview: Added automatically from request for surgery [id number] Myofascial muscle pain 10/23/201604/18 Chronic pain 05/04/2016 04/18/2018 Postlaminectomy syndrome, lumbar region 05/04/2016 04/18/2018 Chronic low back pain 06/21/20152018 documented as of this encounter (statuses as of 06/27/2023) [facility] History of Past illness Narrative* Problem Noted Date Diagnosed Date Resolved Date Failed back syndrome of lumbar spine 05/28/2017 04/18/2018 Overview: Added automatically from request for surgery [id number] Postlaminectomy syndrome of lumbar region 01/19/2017 04/18/2018 Overview: Added automatically from request for surgery [id number] Other chronic pain 01/19/2017 9 Overview: Added automatically from request for surgery [id number] Myofascial muscle pain 10/23/201604/18 Chronic pain 05/04/2016 04/18/2018 Postlaminectomy syndrome, lumbar region 05/04/2016 04/18/2018 Chronic low back pain 06/21/20152018 documented as of this encounter (statuses as of 07/03/2023) [facility] History of Past illness Narrative* Problem Noted Date Diagnosed Date Resolved Date Failed back syndrome of lumbar spine 05/28/2017 04/18/2018 Overview: Added automatically from request for surgery [id number] Postlaminectomy syndrome of lumbar region 01/19/2017 04/18/2018 Overview: Added automatically from request for surgery [id number] Other chronic pain 01/19/2017 9 Overview: Added automatically from request for surgery [id number] Myofascial muscle pain 10/23/201604/18 Chronic pain 05/04/2016 04/18/2018 Postlaminectomy syndrome, lumbar region 05/04/2016 04/18/2018 Chronic low back pain 06/21/20152018 documented as of this encounter (statuses as of 07/13/2023) [facility] History of Past illness Narrative* Problem Noted Date Diagnosed Date Resolved Date Failed back syndrome of lumbar spine 05/28/2017 04/18/2018 Overview: Added automatically from request for surgery [id number] Postlaminectomy syndrome of lumbar region 01/19/2017 04/18/2018 Overview: Added automatically from request for surgery [id number] Other chronic pain 01/19/2017 9 Overview: Added automatically from request for surgery [id number] Myofascial muscle pain 10/23/201604/18 Chronic pain 05/04/2016 04/18/2018 Postlaminectomy syndrome, lumbar region 05/04/2016 04/18/2018 Chronic low back pain 06/21/20152018 documented as of this encounter (statuses as of 07/18/2023) [facility] History of Past illness Narrative* Problem Noted Date Diagnosed Date Resolved Date Failed back syndrome of lumbar spine 05/28/2017 04/18/2018 Overview: Added automatically from request for surgery [id number] Postlaminectomy syndrome of lumbar region 01/19/2017 04/18/2018 Overview: Added automatically from request for surgery [id number] Other chronic pain 01/19/2017 9 Overview: Added automatically from request for surgery [id number] Myofascial muscle pain 10/23/201604/18 Chronic pain 05/04/2016 04/18/2018 Postlaminectomy syndrome, lumbar region 05/04/2016 04/18/2018 Chronic low back pain 06/21/20152018 documented as of this encounter (statuses as of 07/19/2023) [facility] History of Past illness Narrative* Problem Noted Date Diagnosed Date Resolved Date Failed back syndrome of lumbar spine 05/28/2017 04/18/2018 Overview: Added automatically from request for surgery [id number] Postlaminectomy syndrome of lumbar region 01/19/2017 04/18/2018 Overview: Added automatically from request for surgery [id number] Other chronic pain 01/19/2017 9 Overview: Added automatically from request for surgery [id number] Myofascial muscle pain 10/23/201604/18 Chronic pain 05/04/2016 04/18/2018 Postlaminectomy syndrome, lumbar region 05/04/2016 04/18/2018 Chronic low back pain 06/21/20152018 documented as of this encounter (statuses as of 07/27/2023) [facility] History of Past illness Narrative* Problem Noted Date Diagnosed Date Resolved Date Failed back syndrome of lumbar spine 05/28/2017 04/18/2018 Overview: Added automatically from request for surgery [id number] Postlaminectomy syndrome of lumbar region 01/19/2017 04/18/2018 Overview: Added automatically from request for surgery [id number] Other chronic pain 01/19/2017 9 Overview: Added automatically from request for surgery [id number] Myofascial muscle pain 10/23/201604/18 Chronic pain 05/04/2016 04/18/2018 Postlaminectomy syndrome, lumbar region 05/04/2016 04/18/2018 Chronic low back pain 06/21/20152018 documented as of this encounter (statuses as of 07/27/2023) [facility] History of Past illness Narrative* Problem Noted Date Diagnosed Date Resolved Date Failed back syndrome of lumbar spine 05/28/2017 04/18/2018 Overview: Added automatically from request for surgery [id number] Postlaminectomy syndrome of lumbar region 01/19/2017 04/18/2018 Overview: Added automatically from request for surgery [id number] Other chronic pain 01/19/2017 9 Overview: Added automatically from request for surgery [id number] Myofascial muscle pain 10/23/201604/18 Chronic pain 05/04/2016 04/18/2018 Postlaminectomy syndrome, lumbar region 05/04/2016 04/18/2018 Chronic low back pain 06/21/20152018 documented as of this encounter (statuses as of 06/12/2023) [facility] note Author Valerio Balderas [facility] Note Date/Time August 22, 2024 2:40p m [facility] Medical Records Department [address] [place] [address] Anesthesia Postop Eval II 08/22/24 1332 MR#: [id number] Acct: [id number] Name: CRYS FRANKS Rep #:[id number] : 1975 48 From: Valerio Balderas MD PCP: Dr. Katherine Munoz MD Status:R EG [facility] Y Race: C Location: [place] [address] Anesthesia Postop Eval I Sum Anesthesia Postop Eval I Summary Anesthesia Postop Eval I Summary: Anesthesia Postop Eval I: Assessment Summary Airway patent Spontaneous unlabored respirations Mental status nausea Vomiting Anesthesia Postop Eval I: Fluid Summary Crystalloid volume administer (ml) Colloids volume administered ( ml) Blood Product volume administered (ml) Total IV fluid infused Anesthesia Postop Eval I: Summary Notes Anesthesia Complication Anesthesia Complication Comment: Post-operative progress note Anesthesia: Postop Eval II Evaluation Mental status: Awake Pain Level: 0 nausea: No Vomiting: No 08/22/24 1332 <Electronically signed by Valerio Balderas MD> Date _ Valerio Balderas MD Cosigner Signature: Date CC: ~ Signed [facility] Work Phone: Consult note Author ANISA Thomas [facility] Note Date/Time August 22, 2024 1:37p m [facility] Medical Records Department [address] [place] [address] Anesthesia Postop Eval I 08/22/24 1336 MR#: [id number] Acct: [id number] Name: CRYS FRANKS Rep #:[id number] : 1975 48 From: Galdino Thomas PCP: Dr. Katherine Munoz MD Status:R EG [facility] Y Race: C Location: [place] [address] Anesthesia: Postop Eval I Current Vital Signs Temperature: 97.8 F Pulse Rate: 86 Blood Pressure: 101/52 Respiratory Rate: 16 Pulse Ox: 95 Oxygen Delivery Method: Nasal Cannula Oxygen Flow Rate (L/min): 2 Assessment Airway patent: Yes Spontaneous unlabored respirations: Yes Mental status: Asleep nausea: No Vomiting: No Anesthesia Complication: No Fluid Hydration Crystalloid volume administer (ml): 300 Total IV fluid infused: 300 Progress Note Anesthesia document: Postop Eval 1 completed: Yes 08/22/241336 <Electronically signed by Galdino Thomas > Date _ Galdino Nice Signature: Date CC: ~ Signed [facility] Work Phone: Consuth note Author [facility] Note Date/Time October 13, 2024 3:11p [facility] Medical Records Department [address] [place] [address] Anesthesia Postop Eval II 10/13/24 1510 MR#: [id number] Acct: [id number] Name: CRYS FRANKS Rep #:[id number] : 1975 49 From: Carlos Chase MD PCP: Dr. Katherine Munoz MD Status:R EG SDC Y Race: C Location: [place] [address] Anesthesia Postop Eval I Sum Postop Eval Completion status Anesthesia document: Postop Eval 1 completed: Yes Anesthesia Postop Eval I Summary Anesthesia Postop Eval I Summary: Anesthesia Postop Eval I: Assessment Summary Airway patent Yes 10/13/24 13:44 [email or web address] Spontaneous unlabored Yes 10/13/24 13:44 [email or web address] respirations Mental status Awake 10/13/24 13:44 [email or web address] nausea Yes 10/13/24 13:44 [email or web address] Vomiting No 10/13/24 13:44 [email or web address] Anesthesia Postop Eval I: Fluid Summary Crystalloid volume administer 250 10/13/24 13:44 [email or web address] (ml) Colloids volume administered ( ml) Blood Product volume administered (ml) Total IV fluid infused 250 10/13/24 13:44 [email or web address] Anesthesia Postop Eval I: Summary Notes Anesthesia Complication No 10/13/24 13:44 [email or web address] Anesthesia Complication Comment: Post-operative progress note Anesthesia: Postop Eval II Evaluation Mental status: Awake Pain Level: 0 nausea: No Vomiting: No 10/13/24 1511 <Electronically signed by Carlos Chase MD > Date _ Carlos Chase MD [facility] Signature: Date CC: ~ Signed [facility] Work Phone: Evaluation + Plan note Future Appointments [facility] Evaluation note* Diagnosis Cervical spondylosis without myelopathy Primary osteoarthritis of right shoulder Primary localized osteoarthrosis, shoulder region [facility] Diagnosis Onset Date Resolution Status Elevated blood pressure reading acute UTI (urinary tract infection) acute Depression with anxiety 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 Migraines chronic Gastroesophageal reflux disease chronic Dysphagia acute Lower GI bleeding acute Abdominal pain chronic Foot pain, left acute Abdominal pain chronic Depression with anxiety 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 Migraines chronic Abdominal pain acute Colon polyp acute Fatty liver acute GI bleed acute [facility] Work Phone: Evaluation note* Diagnosis Onset Date Resolution Status Gastroesophageal reflux disease chronic Dysphagia acute Lower GI bleeding acute Abdominal pain chronic Foot pain, left acute Abdominal pain chronic Depression with anxiety 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 Migraines chronic Abdominal pain acute Colon polyp acute Fatty liver acute GI bleed acute [facility] Work Phone: Evaluation note* Diagnosis Onset Date Resolution Status Gastroesophageal reflux disease chronic Dysphagia acute Lower GI bleeding acute Abdominal pain chronic Foot pain, left acute Abdominal pain chronic Depression with anxiety 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 Migraines chronic Abdominal pain acute Colon polyp acute Fatty liver acute GI bleed acute Abdominal pain acute Elevated antinuclear antibody (PAT) level acute Abdominal pain acute Hematemesis acute Vomiting acute [facility] Work Phone: Evaluation note* Diagnosis Bilateral carpal tunnel syndrome- Primary Carpal tunnel syndrome Postlaminectomy syndrome, lumbar region Cervical spondylosis without myelopathy [employer]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 Myofascial pain Mylagia and myositis, unspecified Chronic bilateral low back pain with left-sided sciatica Encounter for long-term (current) use of medications Encounter for long-term (current) use of other medications [facility]* Diagnosis Chronic bilateral low back pain with left-sided sciatica- Primary Postlaminectomy syndrome, lumbar region [facility] Diagnosis Onset Date Resolution Status Foot pain, left acute Abdominal pain chronic Depression with anxiety 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 Migraines chronic Abdominal pain acute Colon polyp acute Fatty liver acute GI bleed acute Abdominal pain acute Elevated antinuclear antibody (PAT) level acute Abdominal pain acute Hematemesis acute Vomiting chronic Health care maintenance acut e Depression with anxiety 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 Migraines chronic Vomiting chronic [facility] Work Phone: Evaluation note* Diagnosis Onset Date Resolution Status Foot pain, left acute Abdominal pain chronic Depression with anxiety 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 Migraines chronic Abdominal pain acute Colon polyp acute Fatty liver acute GI bleed acute Abdominal pain acute Elevated antinuclear antibody (PAT) level acute Abdominal pain acute Hematemesis acute Vomiting chronic Health care maintenance acut e Depression with anxiety 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 Migraines chronic Vomiting chronic Urge incontinence acute Urinary frequency acute [facility] Work Phone: Evaluation note* Diagnosis Pain in joint, multiple sites [facility] Diagnosis Pain in joint, multiple sites- Primary [facility]* Diagnosis Postlaminectomy syndrome, lumbar region Cervical spondylosis without myelopathy Chronic bilateral low back pain with left-sided sciatica [facility] Diagnosis Pain in joint, multiple sites [facility] Diagnosis PAT positive- Primary Other and unspecified nonspecific immunological findings Inflammatory arthritis Unspecified inflammatory polyarthropathy Systemic lupus erythematosus, unspecified SLE type, unspecified organ involvement status (HCC) [facility] Diagnosis Onset Date Resolution Status Abdominal pain acute Hematemesis acute Vomiting chronic Health care maintenance acut e Depression with anxiety 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 Migraines chronic Vomiting chronic Urge incontinence acute Urinary frequency acute Urge incontinence acute Urinary frequency acute Urinary urgency acute [facility] Work Phone: Evaluation note* Diagnosis [facility] (current) use of opiate analgesic- Primary Chronic bilateral low back pain with left-sided sciatica Postlaminectomy syndrome, lumbar region Cervical spondylosis without myelopathy Pain in joint, multiple sites [facility] Diagnosis Onset Date Resolution Status Urge incontinence acute Urinary frequency acute Urinary urgency acute Flu vaccine need acute [facility] Work Phone: Evaluation note* Diagnosis Chronic bilateral low back pain with left-sided sciatica- Primary Postlaminectomy syndrome, lumbar region Cervical spondylosis without myelopathy Myofascial pain Mylagia and myositis, unspecified Encounter for long-term (current) use of medications Encounter for long-term (current) use of other medications [facility] Diagnosis Myofascial pain Mylagia and myositis, unspecified Chronic bilateral low back pain with left-sided sciatica Encounter for long-term (current) use of medications Encounter for long-term (current) use of other medications [facility] Diagnosis Postlaminectomy syndrome, lumbar region Cervical spondylosis without myelopathy Chronic bilateral low back pain with left-sided sciatica [facility]* Diagnosis Pain in joint, multiple sites [facility]* Diagnosis Postlaminectomy syndrome, lumbar region- Primary [facility]* Diagnosis APPOINTMENT CANCELLED- Primary [facility] in this [facility]* Diagnosis Postlaminectomy syndrome, lumbar region- Primary Chronic bilateral low back pain with left-sided sciatica Pain in joint, multiple sites Myofascial pain Mylagia and myositis, unspecified [employer]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 [facility] Diagnosis Onset Date Resolution Status Flu vaccine need acute Epigastric pain acute Nausea and vomiting acute Cough acute Fibromyalgia noneactive [facility] Work Phone: Evaluation note* Diagnosis Onset Date Resolution Status Epigastric pain acute Nausea and vomiting acute Cough acute Fibromyalgia noneactive Cough acute Chronic pain noneactive Tobacco abuse noneactive [facility] Work Phone: Evaluation note* Diagnosis Onset Date Resolution Status Cough acute Chronic pain noneactive Tobacco abuse noneactive Right shoulder pain acute Chronic lumbar radiculopathy chronic Depression with anxiety 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 Seizures chronic History of repair of rotator cuff acute Right shoulder pain acute Rotator cuff injury acute Constipation chronic Dysphagia chronic Epigastric pain chronic Nausea and vomiting chronic Superior glenoid labrum lesion of right shoulder acute Migraines [facility] Work Phone: Evaluation note* Diagnosis Onset Date Resolution Status Right shoulder pain acute Chronic lumbar radiculopathy chronic Depression with anxiety 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 Seizures chronic History of repair of rotator cuff acute Right shoulder pain acute Rotator cuff injury acute Constipation chronic Dysphagia chronic Epigastric pain chronic Nausea and vomiting chronic Superior glenoid labrum lesion of right shoulder acute Migraines chronic Health care maintenance acut e Lower GI bleeding acute Depression with anxiety 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 Dysphagia chronic Migraines chronic [facility] Work Phone: Evaluation note* Diagnosis Onset Date Resolution Status Migraines chronic Health care maintenance acut e Lower GI bleeding acute Depression with anxiety 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 Dysphagia chronic Migraines chronic Constipation chronic Epigastric pain chronic Nausea and vomiting chronic [facility] Work Phone: Evaluation note* Diagnosis Systemic lupus erythematosus, unspecified SLE type, unspecified organ involvement status (HCC)- Primary Rheumatoid arthritis involving multiple sites with positive rheumatoid factor (HCC) Long-term use of Plaquenil Encounter for long-term (current) use of other medications Weakness Other malaise and fatigue [facility] Diagnosis Onset Date Resolution Status Hematemesis of unknown cause acute Nausea and vomiting chronic Bradycardia chronic Debility chronic Hyperlipidemia chronic Neuropathy chronic Seizures chronic [facility] Work Phone: Evaluation note* Diagnosis Onset Date Resolution Status Bradycardia chronic Debility chronic Hyperlipidemia chronic Neuropathy chronic Seizures chronic Chest pain chronic Lupus chronic Syncope chronic [facility] Work Phone: Evaluation note* Diagnosis Systemic lupus erythematosus, unspecified SLE type, unspecified organ involvement status (HCC)- Primary Rheumatoid arthritis involving multiple sites with positive rheumatoid factor (HCC) Proteinuria, unspecified type Long-term use of Plaquenil Encounter for long-term (current) use of other medications Inflammatory arthritis Unspecified inflammatory polyarthropathy Vitamin D deficiency Unspecified vitamin D deficiency [facility] Diagnosis Onset Date Resolution Status Bradycardia chronic Debility chronic Hyperlipidemia chronic Neuropathy chronic Seizures chronic Chest pain chronic Lupus chronic Syncope chronic Dizziness chronic Hyperlipidemia chronic Seizures [facility] Work Phone: Evaluation note* Diagnosis Vitamin D deficiency- Primary Unspecified vitamin D deficiency [facility] Diagnosis Rheumatoid arthritis involving multiple sites with positive rheumatoid factor (HCC)- Primary Systemic lupus erythematosus, unspecified SLE type, unspecified organ involvement status (HCC) Inflammatory arthritis Unspecified inflammatory polyarthropathy [facility] Diagnosis Onset Date Resolution Status Chest pain chronic Lupus chronic Syncope chronic Dizziness chronic Hyperlipidemia chronic Seizures chronic [facility] Work Phone: Evaluation note* Diagnosis Systemic lupus erythematosus, unspecified SLE type, unspecified organ involvement status (HCC) Rheumatoid arthritis involving multiple sites with positive rheumatoid factor (HCC) Proteinuria, unspecified type Long-term use of Plaquenil Encounter for long-term (current) use of other medications Inflammatory arthritis Unspecified inflammatory polyarthropathy Vitamin D deficiency Unspecified vitamin D deficiency [facility]* Diagnosis Systemic lupus erythematosus, unspecified SLE type, unspecified organ involvement status (HCC)- Primary Rheumatoid arthritis involving multiple sites with positive rheumatoid factor (HCC) Long-term use of Plaquenil Encounter for long-term (current) use of other medications Inflammatory arthritis Unspecified inflammatory polyarthropathy Vitamin D deficiency Unspecified vitamin D deficiency Oral lesion Other and unspecified diseases of the oral soft tissues Proteinuria, unspecified type Anemia, unspecified type [facility]* Diagnosis Onset Date Resolution Status Chest pain chronic Lupus chronic Syncope chronic Dizziness chronic Hyperlipidemia chronic Seizures chronic Constipation acute Nausea and vomiting noneacti [facility] Work Phone: Evaluation note* Diagnosis Vitamin D deficiency Unspecified vitamin D deficiency documented in this encounter [facility] note* Diagnosis PAT positive- Primary Other and unspecified nonspecific immunological findings Systemic lupus erythematosus, unspecified SLE type, unspecified organ involvement status (HCC) documented in this encounter [facility] note* Diagnosis Systemic lupus erythematosus, unspecified SLE type, unspecified organ involvement status (HCC) Rheumatoid arthritis involving multiple sites with positive rheumatoid factor (HCC) Long-term use of Plaquenil Encounter for long-term (current) use of other medications Inflammatory arthritis Unspecified inflammatory polyarthropathy Vitamin D deficiency Unspecified vitamin D deficiency Oral lesion Other and unspecified diseases of the oral soft tissues Proteinuria, unspecified type Anemia, unspecified type [facility]* Diagnosis Systemic lupus erythematosus, unspecified SLE type, unspecified organ involvement status (HCC) Rheumatoid arthritis involving multiple sites with positive rheumatoid factor (HCC) Proteinuria, unspecified type Long-term use of Plaquenil Encounter for long-term (current) use of other medications Inflammatory arthritis Unspecified inflammatory polyarthropathy Vitamin D deficiency Unspecified vitamin D deficiency [facility]* Diagnosis Systemic lupus erythematosus, unspecified SLE type, unspecified organ involvement status (HCC) Rheumatoid arthritis involving multiple sites with positive rheumatoid factor (HCC) Long-term use of Plaquenil Encounter for long-term (current) use of other medications Inflammatory arthritis Unspecified inflammatory polyarthropathy Vitamin D deficiency Unspecified vitamin D deficiency Oral lesion Other and unspecified diseases of the oral soft tissues Proteinuria, unspecified type Anemia, unspecified type [facility] Diagnosis Vitamin D deficiency Unspecified vitamin D deficiency [facility] Diagnosis Pain in joint, multiple sites- Primary Vitamin D deficiency Unspecified vitamin D deficiency Systemic lupus erythematosus, unspecified SLE type, unspecified organ involvement status (HCC) Rheumatoid arthritis involving multiple sites with positive rheumatoid factor (HCC) Proteinuria, unspecified type Long-term use of Plaquenil Encounter for long-term (current) use of other medications Inflammatory arthritis Unspecified inflammatory polyarthropathy Oral lesion Other and unspecified diseases of the oral soft tissues Anemia, unspecified type [facility] Diagnosis Vitamin D deficiency Unspecified vitamin D deficiency [facility] Diagnosis Treatment not available- Primary Procedure not carried out for other reasons [facility] Diagnosis Vitamin D deficiency Unspecified vitamin D deficiency [facility] Diagnosis Rheumatoid arthritis involving multiple sites with positive rheumatoid factor (HCC)- Primary Systemic lupus erythematosus, unspecified SLE type, unspecified organ involvement status (HCC) Inflammatory arthritis Unspecified inflammatory polyarthropathy Vitamin D deficiency Unspecified vitamin D deficiency Weakness Other malaise and fatigue Long-term use of Plaquenil Encounter for long-term (current) use of other medications [facility] Diagnosis Vitamin D deficiency Unspecified vitamin D deficiency Systemic lupus erythematosus, unspecified SLE type, unspecified organ involvement status (HCC) Rheumatoid arthritis involving multiple sites with positive rheumatoid factor (HCC) Proteinuria, unspecified type Long-term use of Plaquenil Encounter for long-term (current) use of other medications Inflammatory arthritis Unspecified inflammatory polyarthropathy Oral lesion Other and unspecified diseases of the oral soft tissues Anemia, unspecified type [facility] Diagnosis Pain in joint, multiple sites- Primary Vitamin D deficiency Unspecified vitamin D deficiency [facility] Diagnosis Vitamin D deficiency Unspecified vitamin D deficiency Systemic lupus erythematosus, unspecified SLE type, unspecified organ involvement status (HCC) Rheumatoid arthritis involving multiple sites with positive rheumatoid factor (HCC) Proteinuria, unspecified type Long-term use of Plaquenil Encounter for long-term (current) use of other medications Inflammatory arthritis Unspecified inflammatory polyarthropathy Oral lesion Other and unspecified diseases of the oral soft tissues Anemia, unspecified type [facility] Diagnosis Vitamin D deficiency Unspecified vitamin D deficiency Systemic lupus erythematosus, unspecified SLE type, unspecified organ involvement status (HCC) Rheumatoid arthritis involving multiple sites with positive rheumatoid factor (HCC) Proteinuria, unspecified type Long-term use of Plaquenil Encounter for long-term (current) use of other medications Inflammatory arthritis Unspecified inflammatory polyarthropathy [facility] Diagnosis Vitamin D deficiency Unspecified vitamin D deficiency [facility] Diagnosis Vitamin D deficiency Unspecified vitamin D deficiency Systemic lupus erythematosus, unspecified SLE type, unspecified organ involvement status (HCC) Rheumatoid arthritis involving multiple sites with positive rheumatoid factor (HCC) Proteinuria, unspecified type Long-term use of Plaquenil Encounter for long-term (current) use of other medications Inflammatory arthritis Unspecified inflammatory polyarthropathy Oral lesion Other and unspecified diseases of the oral soft tissues Anemia, unspecified type [facility]* Diagnosis Vitamin D deficiency Unspecified vitamin D deficiency [facility] Author Gary Diaz [facility] September 27, 2022 7:36am Note Date/Time September 27, 2022 7:36 am [facility] Medical Records Department [address] [place] [id number] History & Physical Exam 09/27/22 0736 MR#: [id number] Acct: [id number] Name: CHRISTINACRYS MILI HAMPTON Rep #:[id number] : 1975 47 From: Gary iDaz DO PCP: Dr. Katherine Munoz MD Status:R [facility] Location: [place] [address] History and Physical Date of Admission: 09/27/22 HPI Details: Reviewed Rheum note 11/03/21--A/P was PAT positive, inflammatory arthritis, SLE; likely lupus causing inflammatory arthritis, overlap CTD, rx'd plaquenil; pt didn't keep f/u in 04/2022, and didn't reschedule. 07/24/22 1151 <Electronically signed by Crys Waller CORE MEASURES ABSTRACTOR CORE MEASURES ABSTRACTOR-C> Date Crys Waller NP CORE MEASURES ABSTRACTOR-C cc: ? ~* Signed ADDENDUM byCruz Waller on 07/21/22 at 1312 HPI Details: CRYS FRANKS, is a 46 F who presents to the office today for ROS Const Constitutional: No fatigue, fever(s), headache(s), weight change, sleep problems, abnormal sleep pattern or change in appetite ENT ENT: No headache(s), difficulty swallowing, hoarseness or sore throat Resp Respiratory: No cough, hemoptysis or shortness of breath Cardio Cardiology: No chest pain at rest or generalized swelling Gastro GI: Positive for abdominal pain, constipation, heartburn, difficulty swallowing,Blood in stool and vomiting; No belching, bloating, change in bowel habits, change in stool character, coffeeground emesis, cramping, diarrhea, feeling full early, excessive flatus, incontinent of stools, Vomiting blood/hematemesis, loose stools, Black,tarry stools, nausea/dyspepsia or pain with swallowing Musc Musculoskeletal: Positive for joint pain, back pain, joint swelling, muscle weakness, numbness, stiffness, tingling, Arthritis, restless legs, leg pain at night and leg pain with exertion Skin Skin: No itchy eyes or rash Neuro Neurology: Positive for abnormal gait, frequent falls, numbness and tingling; No behavioral changes, confusion or headache(s) Psych Psychiatric: No abnormal sleep pattern, No anxiety, No behavioral changes, No change in appetite, No confusion and No depression Endo Endocrine: No cold intolerance, fatigue, heat intolerance, increased thirst/drinking or weight change Aller/Imm Allergy/Immunologic: No food intolerance or itchy eyes Esteban/Lymp Hematologic/Lymphatic: Positive for easy bleeding and easy bruising; No enlarged lymph nodes 07/21/22 1312 <Electronically signed by Crys Waller NP CORE MEASURES ABSTRACTOR-C> Date Sridhar,Crys M CORE MEASURES ABSTRACTOR CORE MEASURES ABSTRACTOR-C cc: ? ~* Signed Intake Vital Signs ? 02/02/2217:02 06/21/2314:44 Height 5 ft 7 in 5 ft 7 in Intake Visit Reasons:?1 MO FU Chief Complaint: f/u Allergies venom-honey bee Allergy (Severe, Verified 07/21/22 11:06) severevenom-wasp Allergy (Severe, Verified 07/21/22 11:06) severeciprofloxacin [From Cipro] Allergy (Verified 07/21/22 11:06) Rasherythromycin base Allergy (Verified 07/21/22 11:06) Anaphylaxisiodine Allergy (Verified 07/21/22 11:06) Anaphylaxislatex Allergy (Verified 07/21/22 11:06) Rashmetronidazole [From Flagyl] Allergy (Verified 07/21/22 11:06) Anaphylaxisnaproxen [From Naprosyn] Allergy (Verified 07/21/22 11:06) AnaphylaxisPenicillins Allergy (Verified 07/21/22 11:06) Anaphylaxisshellfish derived Allergy (Verified 07/21/22 11:06) Anaphylaxisadhesive Adverse Reaction (Mild, Verified 07/21/22 11:06) BLISTERSsulfamethoxazole [From Bactrim] Adverse Reaction (Verified 07/21/22 11:06) Hivestrimethoprim [From Bactrim] Adverse Reaction (Verified 07/21/22 11:06) Hives Medications topiramate 200 mg tablet 200 mg PO QHS headaches 08/15/18 [History Confirmed 07/21/22] duloxetine 30 mg capsule,delayed release 90 mg PO QHS depression 06/09/19 [History Confirmed 07/21/22] trazodone 100 mg tablet 300 mg PO QHS sleep 10/28/19 [History Confirmed 07/21/22] carbamazepine 200 mg tablet 200 mg PO BID seizures 03/22/20 [History Confirmed 07/21/22] hydroxyzine pamoate 25 mg capsule 50 mg PO TID PRN Anxiety 03/22/20 [History Confirmed 07/21/22] Handicap Placard #1 ea 05/03/20 [Rx Confirmed 07/21/22] baclofen 10 mg tablet 10 mg PO TID 03/23/21 [History Confirmed 07/21/22] remington (Ultra-Light Rollator misc) #1 ea 09/26/21 [Rx Confirmed 07/21/22] quetiapine 300 mg tablet (Seroquel) 500 mg PO DAILY 02/22/22 [History Confirmed 07/21/22] albuterol sulfate 90 mcg/actuation aerosol inhaler 1 - 2 puff inhalation Q6H PRNshortness of breath or wheezing #8.5 grams 04/14/22 [Rx Confirmed 07/21/22] epinephrine 0.3 mg/0.3 mL injection, auto-injector (EpiPen 2-Raymond) 0.3 mg (0.3 mL) IM Q5-15M PRN anaphylaxis #2 ea 04/14/22 [Rx Confirmed 07/21/22] prazosin 5 mg capsule 2 mg PO QHS 04/14/22 [History Confirmed 07/21/22] simvastatin 20 mg tablet 20 mg PO QPM #90 tabs 04/14/22 [Rx Confirmed 07/21/22] sumatriptan succinate 50 mg tablet See Rx Instructions PO .COMPLEX #14 tabs 04/14/22 [Rx Confirmed 07/21/22] guaifenesin 400 mg tablet 400 mg PO TID PRN congestion #30 tabs 05/05/22 [Rx Confirmed 07/21/22] lidocaine 5 % topical patch (Lidoderm) 1 patch topical DAILY #15 ea 05/09/22 [Rx Confirmed 07/21/22] pantoprazole 40 mg tablet,delayed release 40 mg PO DAILY #30 tabs 05/10/22 [Rx Confirmed 07/21/22] gabapentin 600 mg tablet 600 mg PO TID nerve pain #90 tabs 06/21/22 [Rx Confirmed 07/21/22] promethazine 25 mg tablet 25 mg PO BID PRN nausea and vomiting #60 tabs 06/21/22[Rx Confirmed 07/21/22] ondansetron 4 mg disintegrating tablet 8 mg PO Q8H PRN PRN Nausea #90 tabs 07/04/22 [Rx Confirmed 07/21/22] scopolamine base 1 mg over 3 days transdermal patch 1 patch transdermal Q3D PRN nausea and vomiting #10 ea 07/04/22 [Rx Confirmed 07/21/22] levetiracetam 500 mg tablet (Keppra) 500 mg PO BID #180 tabs 07/11/22 [Rx Confirmed 07/21/22] prednisone 50 mg tablet 50 mg PO DAILY #3 tabs 07/18/22 [Rx Confirmed 07/21/22] lubiprostone 24 mcg capsule (Amitiza) 24 mcg PO BID #60 caps 07/21/22 [Rx Confirmed 07/21/22] metoclopramide HCl 10 mg tablet 10 mg PO QAC #30 tabs 07/21/22 [Rx Confirmed 07/21/22] PFSH Medical History? Abdominal pain Abdominal pain Acute cystitis Anxiety Arthritis Back pain Back problem Lamar's palsy Blurry vision, left eye Carpal tunnel syndrome Cellulitis Cervical cancer Chronic lumbar radiculopathy Colon polyp Debility Depression Difficulty chewing Dizziness Elevated antinuclear antibody (PAT) level Elevated blood pressure reading Fall Fatty liver Fibromyalgia Flu vaccine need Foot pain, left Gastric reflux Gastrointestinal problem GI bleed Headache Health care maintenance Hearing problem Hematuria History of IBS Hives Hx of emotional problems Hypokalemia Injury of head and neck Insect bite Interstitial cystitis Irritable bowel syndrome Kidney stones Lipoma Lupus Neuropathy Osteoarthritis Physical debility Positive P-ANCA titer Post-menopausal Right shoulder pain Seasonal allergies Seizures Seizures Sludge in gallbladder Smoker Stroke Ulcer Uterine cancer UTI (urinary tract infection) Wheel chair as ambulatory aid Wheelchair dependent Surgical History? History of appendectomy History of bladder repair surgery History of carpal tunnel surgery of right wrist History of colonoscopy History of esophagogastroduodenoscopy (EGD) History of hysterectomy History of orthopedic surgery History of spinal surgery Hx of repair of right rotator cuff Hx of surgical procedure Hx of surgical procedure S/P left knee surgery S/P umbilical hernia repair, follow-up exam Status post left foot surgery Family History? Father AsthmaGrandfather ?? No problems noted. Grandmother AsthmaBrother Lung cancer Diabetes HypertensionGrandfather AsthmaGrandmother Asthma HypertensionMother DiabetesAunt DiabetesSon Seizures Asthma Social History? Smoking Status:? Current every day smoker tobacco type: cigarettes alcohol intake:? never substance use type:? does not use what type of physical activity do you participate in:? none HPI HPI Chief Complaint: f/u Details: CRYS FRANKS, is a 46 F who presents to the office today for f/u ongoing upper abdominal pain with chronic nausea and vomiting. Pain is worse after eating so she limits herself to one meal a day. Almost constant pain. RUQ US was done in ED on 06/12/22--normal gallbladder. Her HIDA was normal in 07/2021. She is unable to have MRI due to metal. No relief with pancreatic enzymes. She didn't get gastric emptying study. Reports worsening dysphagia, choking on food and pills. Daily nausea, frequent vomiting, despite scopolamine patch, ondansetron, promethazine. She says she did get some temporary relief of symptoms from metoclopramide from ED. No relief from dicyclomine or hyoscyamine. She is also on pantoprazole. Reports constipation, may have BM only every 7-10 days, then painful, can have small amt bright red blood.? 06/2021 colonoscopy--one small tubular adenoma. She saw [employer] Dr Carla Adames at [facility]. Dr Diaz performed EGD 09/09/2021??it showed ectopic gastric mucosa in the upper third of the esophagus, grade B reflux esophagitis, normal stomach, normal duodenum; Biopsies in the proximal esophagus and distal esophagus were negative for Garay's. No marijuana or other drugs, no alcohol Capsule endoscopy--no active bleeding. small fissure in stomach. no mass. 07/2021 HIDA scan normal 07/2021, EF 70% CT showed sludge in the gallbladder 07/2021 Normal liver elastography 07/2021 US showed hepatomegaly and fatty liver 06/2021 ROS Const Constitutional: No fatigue ENT ENT: No difficulty swallowing Gastro GI: No abdominal pain, belching, bloating, change in bowel habits, change in stool character, coffee ground emesis, constipation, cramping, diarrhea, heartburn, difficulty swallowing, feeling full early, excessive flatus, incontinent of stools, Vomiting blood/hematemesis, Blood in stool, loose stools,Black,tarry stools, nausea/dyspepsia, pain with swallowing, vomiting or other Musc Musculoskeletal: No joint pain Skin Skin: No yellowing of the eye or itchy eyes Psych Psychiatric: No anxiety and No depression Endo Endocrine: No fatigue Aller/Imm Allergy/Immunologic: No itchy eyes Esteban/Lymp Hematologic/Lymphatic: No easy bleeding or easy bruising Exam Const General: cooperative and no acute distress Orientation: alert, awake and oriented x3 Other: in wheelchair, right arm in sling HENMT Teeth and gingiva: edentulous Eyes Sclera: sclerae normal Resp Effort & Inspection: normal respiratory effort GI Inspection: obesity Palpation: soft, no hepatosplenomegaly, no masses and tender in the epigastrum Quality Reporting Tobacco Screening (CMS 138) Smoking Status: Current every day smoker Assessment and Plan Assessment and Plan (1) Nausea and vomiting: ?Status:?Chronic ?Plan: Gastric emptying study She reports some relief from metoclopramide at recent ED visit so a small rx wasprovided today Will schedule EGD for worsening dysphagia, ongoing upper abd pain, ongoing nausea and vomiting (2) Epigastric pain: ?Status:?Chronic ?Plan: see above (3) Constipation: ?Status:?Chronic ?Plan: No relief with metamucil, miralax, colace. Rx amitiza 24 mcg bid (4) Dysphagia: ?Status:?Chronic ?Plan: as above ? ? ? Orders: Orders Gastric Emptying Study Today R10.13 - Epigastric pain, R11.2 - Nausea with vomiting, unspecified, R68.81 - Early satiety ? Medications: New lubiprostone (Amitiza) 24 mcg? PO BID 60 caps 5RF ? ? metoclopramide HCl ?? administer 30 minutes before meals 10 mg? PO QAC 30 tabs 0RF ? ? Discontinued dicyclomine ?? Discontinued Reason:? Order Completed ?TAKE 1 CAPSULE BY MOUTH THREE TIMES A DAY 84 caps 2RF ? ? I have examined the patient and the H&P has been reviewed. There are no clinicalchanges since date of exam. 09/27/22 0736 <Electronically signed by Gary Diaz DO> Cosigner Signature (if applicable): CC: Dr. Katherine Munoz MD; Gray Diaz DO~ Signed [facility] Work Phone: History and physical note Author Gary Diaz [facility] Note Date/Time August 22, 2024 12:59 pm [facility] Medical Records Department [address] [place] [address] History & Physical Exam 08/22/24 1256 MR#: [id number] Acct: [id number] Name: CRYS FRANKS Rep #:[id number] : 1975 48 From: [facility] Friend DO PCP: Dr. Katherine Munoz MD Status:R EG [facility] Location: [place] [address] HPI - General General Date of Admission: 08/22/24 Date of Service: 08/22/24 Chief Complaint: Abdominal pain HPI Narrative CRSY FRANKS, is a 48 F who presents for the evaluation of abdominal pain. *BGI established . with abdominal and rectal pain occurring 3-4/week with intermittent presentation of rectal bleeding. Dysphagia with food sticking in her throat. EGD and colonoscopy 3.. EGD LA Grade A esophagitis; gastritis; duodenitis Colonoscopy Congestion throughout colon; 5mm sessile TA polyp. CT abd/pel 3..22 (ED) gallbladder sludge. OV 4.6.22 with ongoing symptoms. Start dicyclomine Biochemical ESR, CHARISSA, ferritin, ceruloplasmin, haptoglobin, ammonia, A1c, GGT, AMA, ASM, HIV, hepatitis without pertinent abnormality. AST 16-ALT 21-AP H141, ammonia H38, CRP H4.92, ANCA H1:320, Qbz71iq H3 HIDA 4.18.22 EF 70% US RUQ 3.10.22 hepatic measurement 17.8cm with fatty infiltration. Elastography 4.12.22 hepatic stiffness 3.7kPa Capsule endoscopy 4.20.22 multiple AVM and erosions in stomach with signs of bleeding; fissure 32min into study. OV 5.5.22 with ongoing symptoms of loose stools, abdominal/epigastric pain, emesis. Biochemical catecholamines, gastrin, amylase, CPK, ANCA without pertinent abnormality chromogranin A H109.1, scl-70 ab H3.2, IgG1 H963 Urine porhyrins not performed. EGD 6.3.22 ectopic gastric mucosa; LA Grade B esophagitis Rheumatology OV 7.22 PAT positive with inflammatory arthritis. Likely lupus causing inflammatory arthritis, recommended plaquenil. Did not keep f/u apt. OV 11.16.22 ongoing abdominal pain Stool fecal fat, elastase not performed US RUQ 3.6.23 (ED) hepatic measurement 16.7cm with normal echogenicity. OV 4.14.23 with ongoing symptoms. Start amitiza and reglan. No relief of constipation with Metamucil, miralax or Colace. CT abd/pel 4.18.23 (ED) without acute/chronic finding. Gastric emptying study .11.29 43.78minutes (12-56). EGD 6.. EOE, no path changes; intrinsic stenosis, Savary 54F;small hiatal hernia; pyloric stenosis, TTS 15mm; duodenitis OV 4.30.24- Today reports no change in her symptoms. Still varies between diarrhea and constipation. Patient states that her pharmacy never gave her the Amitiza or reglan. Still having dysphagia. Patient is taking pantoprazole. EGD 5..24- Benign-appearing esophageal stenosis, erythematous mucosa in the pyloris. Path: Chronic pyloric inflammation Colon- Congested mucosa in the sigmoid and terminal ileum OV 1.2.25- Patient reports increased in constipation, abdominal pain, bloating and nausea the last couple months. States she was only having a BM a few times amonth. Saw her PCP 03/21 and was prescribed Lactulose. Takes it 2-3 times a day.Has been able to have a BM 3-4 times a week. Very little change in abdominal pain/ bloating. OV 4.2.25 pt reports continued symptoms of daily N/V, HB, and abd pain that comes and goes. Pt reports worsening difficulty swallowing and states that she has a lot of pain when stuff gets stuck. Gary Diaz DO [facility] Medical History Esophagitis Spinal cord stimulator status Difficult intravenous access Esophageal dilatation Gastroparesis Chronic nausea Screening for thyroid disorder Galactorrhea Blurry vision GERD (gastroesophageal reflux disease) High cholesterol PTSD (post-traumatic stress disorder) History of stress test History of echocardiogram Cardiology follow-up encounter Chest pain Syncope Palpitations Hyperlipidemia Bradycardia Hematemesis of unknown cause Degenerative disc disease Superior glenoid labrum lesion of right shoulder Constipation Early satiety Rotator cuff injury Right shoulder pain Cough Nausea and vomiting Epigastric pain Flu vaccine need Lupus Debility Chronic lumbar radiculopathy Health care maintenance Hematemesis Vomiting Elevated antinuclear antibody (PAT) level Positive P-ANCA titer GI bleed Colon polyp Fatty liver Sludge in gallbladder Post-menopausal Anxiety Seizures Smoker Wheelchair dependent Wheel chair as ambulatory aid Foot pain, left Lower GI bleeding Dysphagia Elevated blood pressure reading Hypokalemia Abdominal pain UTI (urinary tract infection) Uterine cancer Cervical cancer Interstitial cystitis Acute cystitis Hematuria Flank pain Fibromyalgia Blurry vision, left eye Dizziness Headache Fall Postoperative pain Acute pain of left foot Postoperative wound infection Cellulitis Incisional hernia Gastroesophageal reflux disease Urinary frequency Urge incontinence Urinary urgency Migraines Lamar's palsy Depression with anxiety Ulcer Lipoma Stroke Seizures Osteoarthritis Neuropathy Kidney stones Irritable bowel syndrome Hives Hearing problem Carpal tunnel syndrome Arthritis Seasonal allergies Home Medications ?Medication ?Instructions ?Recorded ?Last Taken ?Type topiramate 200 mg tablet 200 mg PO QHS headaches 12/2608/21/24 History Handicap Placard #1 ea 05/03/20 Unknown Rx baclofen 10 mg tablet 10 mg PO TID 03/23/21 History walker (Ultra-Light Rollator misc) #1 ea 09/26/21 Unkn own Rx quetiapine 300 mg tablet (Seroquel) 300 mg PO QHS 02/0708/21/24 History walker (Ultra-Light Rollator misc) #1 ea 08/10/22 Unkn own Rx hydroxychloroquine 200 mg tablet 200 mg PO BID 3 08/22/24 History Handicap Placard #1 ea 03/09/23 Unknown Rx wheelchair #1 ea 03/09/23 Unknown Rx carbamazepine 200 mg tablet 200 mg PO DAILY seizures 0 04/17/23 08/22/24 History fremanezumab-vfrm 225 mg/1.5 mL 225 mg subcut QMONTH 0 04/17/23 Unknown History subcutaneous auto-injector (Ajovy) nortriptyline 10 mg capsule 30 mg PO QHS 04/17/2308/07 History prazosin 2 mg capsule 4 mg PO QHS 04/17/23 5 History folic acid 1 mg tablet 1 mg PO DAILY 06/08/2308/21 History quetiapine 400 mg tablet 400 mg PO QHS 06/08/2308/21 History cholecalciferol (vitamin D3) 1,250 1,250 mcg PO QWEEK 08/31/23 08/21/24 History mcg (50,000 unit) capsule Rollator walker #1 ea 02/21/24 Unknown Rx buspirone 10 mg tablet 10 mg PO .qid 02/21/2408/22 History epinephrine 0.3 mg/0.3 mL 0.3 mg (0.3 mL) IM Q5-15M MS N 02/22/24 Unknown Rx injection, auto-injector (EpiPen anaphylaxis #2 ea 2-Raymond) ubrogepant 100 mg tablet (Ubrelvy) 100 mg PO DAILY PRN migraine 04/04/24 Unknown Rx headache #10 tabs methotrexate sodium 2.5 mg tablet 25 mg PO TU 04/28/24 08/21/24 History psyllium seed (sugar) oral powder 1 tbsp PO .3x/wk 08/21/24 History (Metamucil (sugar) oral powder) simvastatin 20 mg tablet 20 mg PO QPM #90 tabs 08/21/24 Rx lactulose 10 gram/15 mL (15 mL) 15 ml PO TID #300 mL 0 07/09/24 08/21/24 Rx oral solution ondansetron 4 mg disintegrating 4 mg PO Q6H PRN nausea and 07/09/24 08/22/24 Rx tablet vomiting #60 tabs pantoprazole 40 mg tablet,delayed 40 mg PO DAILY #90 t abs 07/09/24 08/22/24 Rx release promethazine 25 mg tablet 25 mg PO BID PRN nausea and 07/09/24 08/21/24 Rx vomiting #30 tabs linaclotide 145 mcg capsule 145 mcg PO QDAY #90 caps 0 08/05/24 08/21/24 Rx (Linzess) prochlorperazine 25 mg rectal 25 mg MS QHS 14 days #14 ea 08/13/24 08/21/24 Rx suppository (Compazine) scopolamine base 1 mg over 3 days 1 patch transdermal Q3D PRN nausea 08/13/24 08/22/24 Rx transdermal patch and vomiting #10 ea prochlorperazine maleate 10 mg 10 mg PO Q8H PRN nausea and 08/15/24 08/22/24 Rx tablet (Compazine) vomiting #90 tabs gabapentin 600 mg tablet 600 mg PO TID nerve pain #90 tabs 08/20/24 08/22/24 Rx levetiracetam 1,000 mg tablet 1,000 mg PO BID 08/21/24 08/22/24 History Allergy/AdvReac Type Severity Reaction Status Date / Time venom-honey bee Allergy Severe severe Verified 08/22/24 12:21 venom-wasp Allergy Severe severe Verified 08/22/24 12:21 coconut Allergy Intermediate Hives Verified 08/22/24 12:21 doxycycline Allergy Intermediate Rash Verified 08/22/24 12:21 mushroom Allergy Intermediate Hives Verified 08/22/24 12:21 ciprofloxacin (From Cipro) Allergy Rash Verified 08/22/24 12:21 erythromycin base Allergy Anaphylaxis Verified 08/22/24 12:21 iodine Allergy Anaphylaxis Verified 08/22/24 12:21 latex Allergy Rash Verified 08/22/24 12:21 metronidazole (From Flagyl) Allergy Anaphylaxis Verified 08/22/24 12:21 naproxen (From Naprosyn) Allergy Anaphylaxis Verified 08/22/24 12:21 Penicillins Allergy Anaphylaxis Verified 08/22/24 12:21 shellfish derived Allergy Anaphylaxis Verified 08/22/24 12:21 lithium AdvReac Intermediate Mood Verified 08/22/24 12:21 changes adhesive AdvReac Mild BLISTERS Verified 08/22/24 12:21 sulfamethoxazole (From AdvReac Hives Verified 08/22/24 12:21 Bactrim) trimethoprim (From Bactrim) AdvReac Hives Verified 08/22/24 12:21 Family History Father Asthma Grandfather No problems noted. Grandmother Asthma Brother Lung cancer Diabetes Hypertension Grandfather Asthma Grandmother Asthma Hypertension Mother Diabetes Aunt Diabetes Son Seizures Asthma Surgical History History of repair of rotator cuff Hx of surgical procedure History of colonoscopy History of esophagogastroduodenoscopy (EGD) Hx of surgical procedure Status post left foot surgery S/P left knee surgery S/P umbilical hernia repair, follow-up exam History of bladder repair surgery History of spinal surgery History of appendectomy History of hysterectomy History of orthopedic surgery History of carpal tunnel surgery of right wrist Social History Smoking Status: Light Smoker (<10/day) alcohol intake: never substance use type: does not use caffeine: No what type of physical activity do you participate in: none ROS Constitutional Constitutional: Denies fatigue, fever(s), poor appetite, weight gain or weight loss Gastrointestinal Gastrointestinal: Denies belching, bloating, change in bowel habits, change in stool character, chewing difficulty, coffee ground emesis, constipation, cramping, diarrhea, dyspepsia, dysphagia, early satiety, excessive flatus, fecalincontinence, heartburn, hematemesis, hematochezia, hemorrhoids, loose stools, melena, nausea, odynophagia, rectal bleeding, tenesmus, vomiting or weight changes Vital Signs Vital Signs Vital Signs: 08/22/24 12:23 08/22/24 12:23 Temperature 99.8 F H Temperature Source Temporal Pulse Rate 87 Respiratory Rate 16 Respiratory Pattern Normal Blood Pressure 110/64 Blood Pressure Mean 79 Blood Pressure Source Monitor Blood Pressure Position Semi-Fowlers Blood Pressure Location Left Arm Pulse Ox 98 Oxygen Delivery Method Room Air Weight Weight: 195 lb Body Mass Index (BMI) 30.5 Physical Exam Const alert, oriented x3, no apparent distress and healthy appearing General Appearance: cooperative GI normal to inspection, nondistended, normoactive bowel sounds, soft to palpation,non-tender and non-distended Percussion: normal to percussion Rectal Exam: deferred Assessment & Plan Assessment/Plan (1) Chronic nausea: (2) Left upper quadrant abdominal pain: PLAN: Affect: normal affect Assessment and Plan Assessment and Plan (1) Nausea and vomiting: (2) Epigastric pain: Status: active Plan: 46 yr old female with ongoing RUQ/epigstric/retrosternal pain with chronic nausea and vomiting. Complicated medical hx. Test for EPI, chronic pancreatitis--fecal elastase and fecal fats; I will contact her with results and see how she is doing on the Creon. Consider MRI/MRCP--can't do due to metal in feet Samples of Creon 1 w/ snack, 2 w/ meals Consider gastroparesis from meds such as topiramate, consider gastric emptying study Takes multiple meds for nausea and vomiting but still vomiting multiple times per week, causing bleeding. Has had 2 EGDs this year, consider when another whenwill be needed. Does she have a housekeeping director? Has dx of lupus. ?scleroderma per labs we did. Rheum disorder may be causing esophageal dysmotility, consider esophageal manometry. f/u one month (3) Nausea and vomiting: Status: Inactive Qualifiers: Vomiting type: bilious vomiting Qualified Code(s): R11.14 - Bilious vomiting Plan: Her nausea vomiting is multifactorial. However she has been experiencing some hematemesis. She will get a stat CBC along with iron studies today as previously ordered by housekeeping director and we will schedule for upper endoscopy. (4) Constipation: Status: Acute Qualifiers: Constipation type: slow transit constipation Qualified Code(s): K59.01 - Slow transit constipation Plan: From her pelvic CT scan it looks like she has pelvic floor dysfunction due to previous trauma as a child we will give her antibiotics also because I think sheis experiencing a stercoral ulcer. She is on immunosuppressive's with can delayher healing. I will give her doxycycline as she has allergies to ciprofloxacin penicillins and Bactrim. She will also need to undergo colonoscopy to evaluate her lower GI tract. Pending on her examination under anesthesia she may need referral to colorectal surgery. Originally had wanted to get an MRI of the pelvis to look for signs of abnormalities of her pelvic floor. However she has a back stimulator and that cannot be done. Recommend Lactulose along with fiberin the form of Metamucil once a day.. Medications: Refilled lactulose 15 mL PO TID 300 mL 0RF pantoprazole 40 mg PO DAILY 90 tabs 1RF ondansetron 4 mg PO Q6H PRN 60 tabs 1RF nausea and vomiting promethazine 25 mg PO BID PRN 30 tabs 1RF nausea and vomiting 08/22/24 1259 <Electronically signed by Gary Diaz DO> Cosigner Signature (if applicable): CC: Dr. Katherine Munoz MD; Gary Diaz DO~ Signed [facility] Work Phone: Hospital course Narrative No data available for this section [facility] Discharge instructions No data available for this section [facility] Discharge instructions Additional Instructions Implant Used?: Yes [facility] Work Phone: Hospital Discharge instructions Additional Instructions Shoulder x-ray negative. Use sling for comfort. Gallbladder ultrasound again negative. Labs are stable. Reglan as needed continue oral fluids for hydration. Follow-up with Dr. Diaz.[facility] Work Phone: Hospital Discharge instructions Additional Instructions Thank you for trusting us with your care today! Please take Tylenol (2 pills, 650 mg), ibuprofen (2 pills, 400 mg) every 6 hours as needed for pain and fever control. Please take Zofran as needed for nausea control. Please return to the emergency department if your symptoms change or worsen. Please follow with your primary care physician and gastroenterology (Dr. Diaz) for further outpatient evaluation and management.[facility] Work Phone: Hospital Discharge instructions Additional Instructions Labs stable. Take medicine as prescribed. Follow-up with your doctors.[facility] Work Phone: Hospital Discharge instructionsAmbulatory Orders* Podiatry Location: None [facility] Work Phone: Progress note No data available for this section [facility] Reason for referral (narrative)* Diagnostic Procedure Only (Routine) - Closed Specialty Diagnoses / Procedures Referred By Contac t Referred To Contact XR IMAGING Diagnoses Cervical spondylosis without myelopathy Primary osteoarthritis of right shoulder Procedures XR SHOULDER [id number] AP/TRUE AP RIGHT X-RAY SHOULDER COMPLET MIN 2 VIEWS Forest Dos Santos MD [address] [place] [address] Xr Imaging Referral ID Status Reason Start Date Expiration Date V isits Requested Visits Authorized [id number] Closed Auto-Generate d Referral 03/17/2021 04/16/2022 1 1 * Diagnostic Procedure Only (Routine) - Closed Specialty Diagnoses / Procedures Referred By Contac t Referred To Contact XR IMAGING Diagnoses Cervical spondylosis without myelopathy Primary osteoarthritis of right shoulder Procedures XR CERV OTHER 4V AP/LAT/OBL X-RAY NECK MINIMUM 4 VIEWS Forest Dos Santos MD [address] [place] [id number] Xr Imaging Referral ID Status Reason Start Date Expiration Date V isits Requested Visits Authorized [id number] Closed Auto-Generate d Referral 03/17/2021 04/16/2022 1 1 [facility] for referral (narrative)* Diagnostic Procedure Only (Routine) - Pending Review Specialty Diagnoses / Procedures Referred By Contac t Referred To Contact XR IMAGING Diagnoses Pain in joint, multiple sites Procedures XR FOOT GENERAL 3V AP/LAT/OBL RIGHT RADEX FOOT COMPLETE MINIMUM 3 VIEWS Trish Adames MD [address] [place] [address] Xr Imaging Referral ID Status Reason Start Date Expiration Date Visits Requested Visits Authorized [id number] Pending Review Auto-Generat ed Referral 09/28/2021 10/28/2022 1 1 * Diagnostic Procedure Only (Routine) - Pending Review Specialty Diagnoses / Procedures Referred By Contac t Referred To Contact XR IMAGING Diagnoses Pain in joint, multiple sites Procedures XR FOOT GENERAL 3V AP/LAT/OBL LEFT RADEX FOOT COMPLETE MINIMUM 3 VIEWS Trish Adames MD [address] [place] [address] Xr Imaging Referral ID Status Reason Start Date Expiration Date Visits Requested Visits Authorized [id number] Pending Review Auto-Generat ed Referral 09/28/2021 10/28/2022 1 1 * Diagnostic Procedure Only (Routine) - Pending Review Specialty Diagnoses / Procedures Referred By Contac t Referred To Contact XR IMAGING Diagnoses Pain in joint, multiple sites Procedures XR SACROILIAC JOINTS 2V AP PELVIS/FERGUESON RADIOLOGIC EXAMINATION SACROILIAC JNTS <3 VIEWS Trish Adames MD [address] [place] [address] Xr Imaging Referral ID Status Reason Start Date Expiration Date Visits Requested Visits Authorized [id number] Pending Review Auto-Generat ed Referral 09/28/2021 10/28/2022 1 1 * Diagnostic Procedure Only (Routine) - Pending Review Specialty Diagnoses / Procedures Referred By Contac t Referred To Contact XR IMAGING Diagnoses Pain in joint, multiple sites Procedures XR HAND GENERAL 3V PA/LAT/OBL RIGHT RADEX HAND MINIMUM 3 VIEWS Trish Adames MD [address] [place] [address] Xr Imaging Referral ID Status Reason Start Date Expiration Date Visits Requested Visits Authorized [id number] Pending Review Auto-Generat ed Referral 09/28/2021 10/28/2022 1 1 * Diagnostic Procedure Only (Routine) - Pending Review Specialty Diagnoses / Procedures Referred By Contac t Referred To Contact XR IMAGING Diagnoses Pain in joint, multiple sites Procedures XR HAND GENERAL 3V PA/LAT/OBL LEFT RADEX HAND MINIMUM 3 VIEWS Trish Adames MD [address] [place] [address] Xr Imaging Referral ID Status Reason Start Date Expiration Date Visits Requested Visits Authorized [id number] Pending Review Auto-Generat ed Referral 09/28/2021 10/28/2022 1 1 [facility] for referral (narrative)* Diagnostic Procedure Only (Routine) - Closed Specialty Diagnoses / Procedures Referred By Contac t Referred To Contact XR IMAGING Diagnoses Pain in joint, multiple sites Procedures XR FOOT GENERAL 3V AP/LAT/OBL RIGHT RADEX FOOT COMPLETE MINIMUM 3 VIEWS Trish Adames MD [address] [place] [address] Xr Imaging Referral ID Status Reason Start Date Expiration Date V isits Requested Visits Authorized [id number] Closed Auto-Generate d Referral 09/28/2021 10/28/2022 1 1 * Diagnostic Procedure Only (Routine) - Closed Specialty Diagnoses / Procedures Referred By Contac t Referred To Contact XR IMAGING Diagnoses Pain in joint, multiple sites Procedures XR FOOT GENERAL 3V AP/LAT/OBL LEFT RADEX FOOT COMPLETE MINIMUM 3 VIEWS Trish Adames MD [address] [place] [address] Xr Imaging Referral ID Status Reason Start Date Expiration Date V isits Requested Visits Authorized [id number] Closed Auto-Generate d Referral 09/28/2021 10/28/2022 1 1 * Diagnostic Procedure Only (Routine) - Closed Specialty Diagnoses / Procedures Referred By Contac t Referred To Contact XR IMAGING Diagnoses Pain in joint, multiple sites Procedures XR SACROILIAC JOINTS 2V AP PELVIS/FERGUESON RADIOLOGIC EXAMINATION SACROILIAC JNTS <3 VIEWS Trish Adames MD [address] [place] [address] Xr Imaging Referral ID Status Reason Start Date Expiration Date V isits Requested Visits Authorized [id number] Closed Auto-Generate d Referral 09/28/2021 10/28/2022 1 1 * Diagnostic Procedure Only (Routine) - Closed Specialty Diagnoses / Procedures Referred By Contac t Referred To Contact XR IMAGING Diagnoses Pain in joint, multiple sites Procedures XR HAND GENERAL 3V PA/LAT/OBL RIGHT RADEX HAND MINIMUM 3 VIEWS Trish Adames MD [address] [place] [address] Xr Imaging Referral ID Status Reason Start Date Expiration Date V isits Requested Visits Authorized [id number] Closed Auto-Generate d Referral 09/28/2021 10/28/2022 1 1 * Diagnostic Procedure Only (Routine) - Closed Specialty Diagnoses / Procedures Referred By Contac t Referred To Contact XR IMAGING Diagnoses Pain in joint, multiple sites Procedures XR HAND GENERAL 3V PA/LAT/OBL LEFT RADEX HAND MINIMUM 3 VIEWS Trish Adames MD [address] [place] [address] Xr Imaging Referral ID Status Reason Start Date Expiration Date V isits Requested Visits Authorized [id number] Closed Auto-Generate d Referral 09/28/2021 10/28/2022 1 1 [facility] for referral (narrative)No reason for referral information [facility]: Reason for visit Narrative* Diagnostic Procedure Only (Routine) - Closed Specialty Diagnoses / Procedures Referred By Contac t Referred To Contact XR IMAGING Diagnoses Cervical spondylosis without myelopathy Primary osteoarthritis of right shoulder Procedures XR CERV OTHER 4V AP/LAT/OBL X-RAY NECK MINIMUM 4 VIEWS Forest Dos Santos MD [address] [place] [address] Xr Imaging Referral ID Status Reason Start Date Expiration Date V isits Requested Visits Authorized [id number] Closed Auto-Generate d Referral 03/17/2021 04/16/2022 1 1 [facility] for visit Narrative* Diagnostic Procedure Only (Routine) - Closed Specialty Diagnoses / Procedures Referred By Contac t Referred To Contact XR IMAGING Diagnoses Pain in joint, multiple sites Procedures XR FOOT GENERAL 3V AP/LAT/OBL RIGHT RADEX FOOT COMPLETE MINIMUM 3 VIEWS Trish Adames MD [address] [place] [address] Xr Imaging Referral ID Status Reason Start Date Expiration Date V isits Requested Visits Authorized [id number] Closed Auto-Generate d Referral 09/28/2021 10/28/2022 1 1 [facility] Summary Purpose Family History No Family History Records Found Relationship Condition Age at Onset Recorded Date/T joann father Asthma Unknown grandmother Asthma Unknown brother Malignant neoplasm of lung Unknown Diabetes mellitus Unknown Hypertension Unknown grandfather Asthma Unknown mother Diabetes mellitus Unknown aunt Diabetes mellitus Unknown son Seizure Unknown Asthma Unknown Advance Directives No Advanced Directives Records FoundDocuments on File Type Date 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 Advance Directive(s) 06/21/2020 12:39 PM Advance Directive(s) 11/26/2017 4:13 PM Advance Directive(s) 11/12/2017 9:48 AM Advance Directive(s) 06/08/2017 10:28 AM Latest Code Status on File Code Status Date Activated Date Inactivated Comments Full Code 11/26/2017 8:51 PM 11/27/2017 7:47 PM Full Code Order Discussed With: Patient Advance Directive Response Recorded Date/ Time Living Will No July 13, 2021 5:06pm Power of Finance Broker No July 13 5:06pm Advance Directive Response Recorded Date/ Time Living Will No July 18, 2021 12:42pm Power of Finance Broker No July 18 12:42pm Advance Directive Response Recorded Date/ Time Living Will No July 31, 2021 5:30pm Power of Finance Broker No July 31 5:30pm Advance Directive Response Recorded Date/ Time Living Will No August 12, 2021 8: 01am Power of Finance Broker No August 12, 2021 8:01am Documents on File Type Date 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 Advance Directive(s) 06/21/2020 12:39 PM Advance Directive(s) 11/26/2017 4:13 PM Advance Directive(s) 11/12/2017 9:48 AM Advance Directive(s) 06/08/2017 10:28 AM Latest Code Status on File Code Status Date Activated Date Inactivated Comments Full Code 11/26/2017 8:51 PM 11/27/2017 7:47 PM Advance Directive Response Recorded Date/ Time Living Will No September 06, 2021 3 :55pm Power of Finance Broker No September 06, 2021 3:55pm Advance Directive Response Recorded Date/ Time Living Will No September 09, 2021 2 :12pm Power of Finance Broker No September 09, 2021 2:12pm Documents on File 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 Date 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 Advance Directive(s) 10/23/2021 12:06 PM Advance Directive(s) 06/21/2020 12:39 PM Advance Directive(s) 11/26/2017 4:13 PM Advance Directive(s) 11/12/2017 9:48 AM Advance Directive(s) 06/08/2017 10:28 AM Advance Directive Response Recorded Date/ Time Living Will No December 01 11:06am Power of Finance Broker No December 01 022 11:06am Advance Directive Response Recorded Date/ Time Living Will No December 30, 2021 4:38pm Power of Finance Broker No December 4:38pm Advance Directive Response Recorded Date/ Time Living Will No December 30, 2021 3:38pm Power of Finance Broker No December 3:38pm Advance Directive Response Recorded Date/ Time Living Will No May 07 5:32pm Power of Finance Broker No May 07, 2022 5:32pm Advance Directive Response Recorded Date/ Time Living Will No May 09 12:46pm Power of Finance Broker No May 09, 2022 12:46pm Advance Directive Response Recorded Date/ Time Living Will No June 01 023 3:11pm Power of Finance Broker No June 01, 2022 3:11pm Advance Directive Response Recorded Date/ Time Living Will No June 12, 2022 3:07pm Power of Finance Broker No June 12 3:07pm Advance Directive Response Recorded Date/ Time Living Will No July 25, 2022 11:35am Power of Finance Broker No July 25 11:35am Advance Directive Response Recorded Date/ Time Living Will No September 22, 2022 2:53pm Power of Finance Broker No September 22 2:53pm Advance Directive Response Recorded Date/ Time Living Will No December 07 2:18pm Power of Finance Broker No December 07, 2 023 2:18pm Latest Code Status on File Code Status Date Activated Date Inactivated Comments Full Code 11/26/2017 8:51 PM 11/27/2017 7:47 PM Question Answer Comments Full Code Order Discussed With: Patient Advance Directive Response Recorded Date/ Time Living Will No December 07 1:18pm Power of Finance Broker No December 07 023 1:18pm Date Activated Date Inactivated Comments 11/26/2017 8:51 PM 11/27/2017 7:47 PM Question Answer Comments Full Code Order Discussed With: Patient Advance Directive Response Recorded Date/ Time Do you have a Healthcare Power of Finance Broker? No August 21, 2024 10:37am Advance Directive Response Recorded Date/ Time Do you have a Healthcare Power of Finance Broker? No August 21, 2024 10:37am Do you have a Healthcare Power of Finance Broker? No September 24, 2024 1:22pm Advance Directive Response Recorded Date/ Time Do you have a Healthcare Power of Finance Broker? No August 21, 2024 10:37am Do you have a Healthcare Power of Finance Broker? No September 24, 2024 1:22pm Do you have a Healthcare Power of Finance Broker? No October 02, 2024 12:46pm Advance Directive Response Recorded Date/ Time Do you have a Healthcare Power of Finance Broker? No August 21, 2024 10:37am Do you have a Healthcare Power of Finance Broker? No September 24, 2024 1:22pm Do you have a Healthcare Power of Finance Broker? No October 03, 2024 9:57am Do you have a Healthcare Power of Finance Broker? No October 02, 2024 12:46pm Procedure Findings Note Operative Note Department of Urogynecology Patient: Crys Franks : 1975 Date of Procedure: 05/03/18 Pre-operative Diagnosis: Interstitial cystitis Post-operative Diagnosis: Same Procedure: Cystoscopy, hydrodistention Surgeon: Dr. Laboy Flower Shop Laborer/Designer(s): Dr. Cancino Anesthesia: general Findings: + petechial hemorrhages, Bladder capacity 800 mL Specimens: none Instrument and Sponge Count: Correct x 2 Yes per nursing Complications: none Condition: stable, transferred to PACU Operative note: The patient was taken to the operating room where she was placed in supine position on the operating room table. She was placed under general anesthesia. Once anesthesia was noted to be achieved, she was placed in a dorsal lithotomy position with Vin Yellofin stirrups. ?She was prepped and draped in normal sterile fashion. ?A?proper time-out was performed. ?A 70 degree cystoscope was inserted into the bladder, which was noted to be free of any tumors, lesions, stones or trabeculati (more content not included)... Chief Complaint and Reason for Visit Chief Complaint 6 wk FU Amb Documentation VAGINAL BLEEDING phone- headache, vomiting GI BLEED-2ND OPINION 2 M FU ABD PAIN vomiting Pre-Surgical Testing PAT 2 WK FU E ORDERS ABD PAIN Reason for Visit Elevated blood press ure reading UTI (urinary tract infection) Depression with anxiety Migraines Gastroesophageal reflux disease Dysphagia Lower GI bleeding Abdominal pain Foot pain, left Abdominal pain Depression with anxiety Migraines Abdominal pain Colon polyp Fatty liver GI bleed Chief Complaint 6 wk FU Amb Documentation VAGINAL BLEEDING phone- headache, vomiting GI BLEED-2ND OPINION 2 M FU ABD PAIN vomiting Pre-Surgical Testing PAT 2 WK FU E ORDERS ABD PAIN N/V AND ABD PAIN Reason for Visit Elevated blood press ure reading UTI (urinary tract infection) Depression with anxiety Migraines Gastroesophageal reflux disease Dysphagia Lower GI bleeding Abdominal pain Foot pain, left Abdominal pain Depression with anxiety Migraines Abdominal pain Colon polyp Fatty liver GI bleed Chief Complaint 6 wk FU Amb Documentation VAGINAL BLEEDING phone- headache, vomiting GI BLEED-2ND OPINION 2 M FU ABD PAIN vomiting Pre-Surgical Testing PAT 2 WK FU E ORDERS ABD PAIN N/V AND ABD PAIN FATTY LIVER Reason for Visit Elevated blood press ure reading UTI (urinary tract infection) Depression with anxiety Migraines Gastroesophageal reflux disease Dysphagia Lower GI bleeding Abdominal pain Foot pain, left Abdominal pain Depression with anxiety Migraines Abdominal pain Colon polyp Fatty liver GI bleed Chief Complaint Amb Documentation VAGINAL BLEEDING phone- headache, vomiting GI BLEED-2ND OPINION 2 M FU ABD PAIN vomiting Pre-Surgical Testing PAT 2 WK FU E ORDERS ABD PAIN N/V AND ABD PAIN FATTY LIVER RUQ, VOMITING, DIARRHEA Reason for Visit Gastroesophageal ref lux disease Dysphagia Lower GI bleeding Abdominal pain Foot pain, left Abdominal pain Depression with anxiety Migraines Abdominal pain Colon polyp Fatty liver GI bleed Chief Complaint Amb Documentation VAGINAL BLEEDING phone- headache, vomiting GI BLEED-2ND OPINION 2 M FU ABD PAIN vomiting Pre-Surgical Testing PAT 2 WK FU E ORDERS ABD PAIN N/V AND ABD PAIN FATTY LIVER RUQ, VOMITING, DIARRHEA CAP ENDO GI BLEED Reason for Visit Gastroesophageal ref lux disease Dysphagia Lower GI bleeding Abdominal pain Foot pain, left Abdominal pain Depression with anxiety Migraines Abdominal pain Colon polyp Fatty liver GI bleed Chief Complaint phone- headache, vom iting GI BLEED-2ND OPINION 2 M FU ABD PAIN vomiting Pre-Surgical Testing PAT 2 WK FU E ORDERS ABD PAIN N/V AND ABD PAIN FATTY LIVER RUQ, VOMITING, DIARRHEA CAP ENDO GI BLEED FU FROM [facility] ER VISIT 4 WK FU E ORDERS ABD Reason for Visit Gastroesophageal ref lux disease Dysphagia Lower GI bleeding Abdominal pain Foot pain, left Abdominal pain Depression with anxiety Migraines Abdominal pain Colon polyp Fatty liver GI bleed Abdominal pain Elevated antinuclear antibody (PAT) level Abdominal pain Hematemesis Vomiting Chief Complaint 2 M FU ABD PAIN vomiting Pre-Surgical Testing PAT 2 WK FU E ORDERS ABD PAIN N/V AND ABD PAIN FATTY LIVER RUQ, VOMITING, DIARRHEA CAP ENDO GI BLEED FU FROM [facility] ER VISIT 4 WK FU E ORDERS ABD 3 M FU SCREENING Reason for Visit Foot pain, left Abdominal pain Depression with anxiety Migraines Abdominal pain Colon polyp Fatty liver GI bleed Abdominal pain Elevated antinuclear antibody (PAT) level Abdominal pain Hematemesis Vomiting Health care maintenance Depression with anxiety Migraines Vomiting Chief Complaint 2 M FU ABD PAIN vomiting Pre-Surgical Testing PAT 2 WK FU E ORDERS ABD PAIN N/V AND ABD PAIN FATTY LIVER RUQ, VOMITING, DIARRHEA CAP ENDO GI BLEED FU FROM [facility] ER VISIT 4 WK FU E ORDERS ABD 3 M FU SCREENING INTERSTIM 1&2 Reason for Visit Foot pain, left Abdominal pain Depression with anxiety Migraines Abdominal pain Colon polyp Fatty liver GI bleed Abdominal pain Elevated antinuclear antibody (PAT) level Abdominal pain Hematemesis Vomiting Health care maintenance Depression with anxiety Migraines Vomiting Urge incontinence Urinary frequency Chief Complaint 4 WK FU E ORDERS ABD 3 M FU SCREENING INTERSTIM 1&2 REMOVAL INTERSTIM/ AXONICS STAGE 1 AND 2 Reason for Visit Abdominal pain Hematemesis Vomiting Health care maintenance Depression with anxiety Migraines Vomiting Urge incontinence Urinary frequency Urge incontinence Urinary frequency Urinary urgency Chief Complaint REMOVAL INTERSTIM/ A XONICS STAGE 1 AND 2 FALL FELL OUT OF TUB - HIT HEAD CP Reason for Visit Urge incontinence Urinary frequency Urinary urgency Flu vaccine need Chief Complaint FALL FELL OUT OF TUB - HIT HEAD CP FU UPPER RESPIRTORY Reason for Visit Flu vaccine need Epigastric pain Nausea and vomiting Cough Fibromyalgia Chief Complaint CP FU UPPER RESPIRTORY Pain BACK Reason for Visit Epigastric pain Nausea and vomiting Cough Fibromyalgia Cough Chronic pain Tobacco abuse Chief Complaint CP FU UPPER RESPIRTORY Pain BACK BACK PAIN Reason for Visit Epigastric pain Nausea and vomiting Cough Fibromyalgia Cough Chronic pain Tobacco abuse Chief Complaint CP FU UPPER RESPIRTORY Pain BACK BACK PAIN fall, back pain Reason for Visit Epigastric pain Nausea and vomiting Cough Fibromyalgia Cough Chronic pain Tobacco abuse Chief Complaint FU UPPER RESPIRTORY Pain BACK BACK PAIN fall, back pain right shoulder pain Reason for Visit Epigastric pain Nausea and vomiting Cough Fibromyalgia Cough Chronic pain Tobacco abuse Chief Complaint Pain BACK BACK PAIN fall, back pain right shoulder pain [facility] ER FU/HURT SHOULDER RIGHT SHOULDER PAIN IN RIGHT SHOULDER 1 MO FU RIGHT SHOULDER ABD PAIN NAUSEA WITH VOMITING Migraines Reason for Visit Cough Chronic pain Tobacco abuse Right shoulder pain Chronic lumbar radiculopathy Depression with anxiety Seizures History of repair of rotator cuff Right shoulder pain Rotator cuff injury Constipation Dysphagia Epigastric pain Nausea and vomiting Superior glenoid labrum lesion of right shoulder Migraines Chief Complaint fall, back pain right shoulder pain [facility] ER FU/HURT SHOULDER RIGHT SHOULDER PAIN IN RIGHT SHOULDER 1 MO FU RIGHT SHOULDER ABD PAIN NAUSEA WITH VOMITING Migraines 3 M FU Reason for Visit Right shoulder pain Chronic lumbar radiculopathy Depression with anxiety Seizures History of repair of rotator cuff Right shoulder pain Rotator cuff injury Constipation Dysphagia Epigastric pain Nausea and vomiting Superior glenoid labrum lesion of right shoulder Migraines Health care maintenance Lower GI bleeding Depression with anxiety Dysphagia Migraines Chief Complaint NAUSEA WITH VOMITING Migraines 3 M FU N/V 2 WK FU DIZZINESS, NAUSEA, CHEST OTHER Reason for Visit Migraines Health care maintenance Lower GI bleeding Depression with anxiety Dysphagia Migraines Constipation Epigastric pain Nausea and vomiting Chief Complaint DIZZINESS, NAUSEA, C HEST OTHER Nausea/vomiting MED FOLLOW UP Reason for Visit Hematemesis of unkno wn cause Nausea and vomiting Bradycardia Debility Hyperlipidemia Neuropathy Seizures Chief Complaint DIZZINESS, NAUSEA, C HEST OTHER Nausea/vomiting MED FOLLOW UP Bradycardia, unspecified Reason for Visit Hematemesis of unkno wn cause Nausea and vomiting Bradycardia Debility Hyperlipidemia Neuropathy Seizures Chief Complaint MED FOLLOW UP Bradycardia, unspecified BRADYCARDIA (OLEGHE) CHEST PAIN; SYNCOPE Amb Documentation CHEST PAIN; SYNCOPE Amb Documentation Reason for Visit Bradycardia Debility Hyperlipidemia Neuropathy Seizures Chest pain Lupus Syncope Chief Complaint MED FOLLOW UP Bradycardia, unspecified BRADYCARDIA (OLEGHE) CHEST PAIN; SYNCOPE Amb Documentation CHEST PAIN; SYNCOPE Amb Documentation 3 M FU Reason for Visit Bradycardia Debility Hyperlipidemia Neuropathy Seizures Chest pain Lupus Syncope Dizziness Hyperlipidemia Seizures Chief Complaint MED FOLLOW UP Bradycardia, unspecified BRADYCARDIA (OLEGHE) CHEST PAIN; SYNCOPE Amb Documentation CHEST PAIN; SYNCOPE Amb Documentation 3 M FU SCREENING Reason for Visit Bradycardia Debility Hyperlipidemia Neuropathy Seizures Chest pain Lupus Syncope Dizziness Hyperlipidemia Seizures Chief Complaint BRADYCARDIA (OLEGHE) CHEST PAIN; SYNCOPE Amb Documentation CHEST PAIN; SYNCOPE Amb Documentation 3 M FU SCREENING CONSTIPATION Reason for Visit Chest pain Lupus Syncope Dizziness Hyperlipidemia Seizures Chief Complaint BRADYCARDIA (OLEGHE) CHEST PAIN; SYNCOPE Amb Documentation CHEST PAIN; SYNCOPE Amb Documentation 3 M FU SCREENING CONSTIPATION Nausea/vomiting Reason for Visit Chest pain Lupus Syncope Dizziness Hyperlipidemia Seizures Constipation Nausea and vomiting Chief Complaint Admit Date 2 M FU April 28, 2024 1 0:39am 4 M FU July 09, 2024 1:56 pm Reason for Visit Admit Date Constipation April 28, 2024 1 0:39am Flu vaccine need April 28, 2024 1 0:39am Chronic nausea April 28, 2024 1 0:39am Galactorrhea April 28, 2024 1 0:39am Hyperlipidemia April 28, 2024 1 0:39am Constipation July 09, 2024 1:56 pm Epigastric pain July 09, 2024 1:56 pm Nausea and vomiting July 09, 2024 1:56 pm Left upper quadrant abdominal pain August [id number] 10:28am Chronic nausea August 22, 2024 10:28 am Chief Complaint Admit Date 4 M FU July 09, 2024 1:56 pm CP August 22, 2024 2:11p m ABD PAIN (STAT) August 27, 2024 2:31p m Reason for Visit Admit Date Constipation July 09, 2024 1:56 pm Epigastric pain July 09, 2024 1:56 pm Nausea and vomiting July 09, 2024 1:56 pm Left upper quadrant abdominal pain August [id number] 10:28am Chronic nausea August 22, 2024 10:28 am Chief Complaint Admit Date 4 M FU July 09, 2024 1:56 pm CP August 22, 2024 2:11p m ABD PAIN (STAT) August 27, 2024 2:31p m ABDOMINAL PAIN September 19, 2024 9:45 am N/V September 24, 2024 1:16 pm Chief Complaint Admit Date 4 M FU July 09, 2024 1:56 pm CP August 22, 2024 2:11p m ABD PAIN (STAT) August 27, 2024 2:31p m ABDOMINAL PAIN September 19, 2024 9:45 am N/V September 24, 2024 1:16 pm ED F/U - GALLBLADDER October 01, 2024 8:3 0am Chief Complaint Admit Date 4 M FU July 09, 2024 1:56 pm CP August 22, 2024 2:11p m ABD PAIN (STAT) August 27, 2024 2:31p m ABDOMINAL PAIN September 19, 2024 9:45 am N/V September 24, 2024 1:16 pm ED F/U - GALLBLADDER October 01, 2024 8:3 0am abd pain October 02, 2024 11:4 1am Reason for Visit Admit Date Constipation July 09, 2024 1:56 pm Epigastric pain July 09, 2024 1:56 pm Nausea and vomiting July 09, 2024 1:56 pm Left upper quadrant abdominal pain August 072024 10:28am Chronic nausea August 22, 2024 10:28 am Abnormal biliary HIDA scan October 01 8:30am Chief Complaint Admit Date 4 M FU July 09, 2024 1:56 pm CP August 22, 2024 2:11p m ABD PAIN (STAT) August 27, 2024 2:31p m ABDOMINAL PAIN September 19, 2024 9:45 am N/V September 24, 2024 1:16 pm ED F/U - GALLBLADDER October 01, 2024 8:3 0am abd pain October 02, 2024 11:4 1am Laparoscopic, Cholecystectomy with IOC J [email or web address] 2024 10:28am Laparoscopic, Cholecystectomy with IOC J [email or web address] 2024 12:25pm Chief Complaint Admit Date 4 M FU July 09, 2024 1:56 pm CP August 22, 2024 2:11p m ABD PAIN (STAT) August 27, 2024 2:31p m ABDOMINAL PAIN September 19, 2024 9:45 am N/V September 24, 2024 1:16 pm ED F/U - GALLBLADDER October 01, 2024 8:3 0am abd pain October 02, 2024 11:4 1am Laparoscopic, Cholecystectomy with IOC J [email or web address] 2024 10:28am PREOP October 13, 2024 10:49 am Laparoscopic, Cholecystectomy with IOC J [email or web address] 2024 12:25pm MED FU October 27, 2024 9:52 am Reason for Referral Specialty Diagnoses / Procedures Referred By Contmarlen t Referred To Contact Diagnoses Pain in joint, multiple sites Forest Dos Santos MD [address] [place] [id number] Referral ID Status Reason Start Date Expiration Date V isits Requested Visits Authorized [id number] Authorized 1 1 Specialty Diagnoses / Procedures Referred By Dianelys kennedy Referred To Contact Orthopedics Diagnoses Bilateral carpal tunnel syndrome Procedures CONSULT TO ORTHOPAEDICS OFFICE/OUTPATIENT [facility] MDM 60-74 MINUTES Forest Dos Santos MD [address] [place] [address] Referral ID Status Reason Start Date Expiration Date Visits Requested Visits Authorized [id number] Authorized PCP Requested Referral 08/18/2021 08/18/2022 1 1 Medications Administered Section Inactive Administered Medications - up to 3 most recent administrations Medication Order MAR Action Action Date Dose Rate Site 0.9% NaCl 10 mL flush 10 mL, INTRAVENOUS, ONCE, 1 dose, On Shannon 03/23/22 at 0700, Add To Bag After All Drug Is In The Tubing Given by [facility] 03/23/2022 7:26 AM EST 10 mL iohexol 300 mg IV injection (OMNIPAQUE 300) 300 mg, OTHER, ONCE, 1 dose, On [place] 03/23/22 at 0700 Given by [facility] 03/23/2022 7:26 AM EST 300 mg lidocaine (PF) 20 mg/mL (2 %) 200 mg injection (XYLOCAINE) 200 mg (10 mL), OTHER, ONCE, 1 dose, On [place] 03/23/22 at 0700 Given by [facility] 03/23/2022 7:27 AM EST 200 mg lidocaine 10 mg/mL (1 %) 100 mg injection (XYLOCAINE) 100 mg, OTHER, ONCE, 1 dose, On [place] 03/23/22 at 0700 Given by [facility] 03/23/2022 7:26 AM EST 100 mg methylPREDNISolone acetate 40 mg injection (DEPO-Medrol) 40 mg, OTHER, ONCE, 1 dose, On [place] 03/23/22 at 0700 Given by [facility] 03/23/2022 7:28 AM EST 40 mg Additional Source Comments INFORMATION SOURCE (unrecogn ized section and content) DATE CREATED AUTHOR 10/02/2017 [facility] DATE CREATED AUTHOR AUTHOR'S ORGANIZ ATION 05/23/2018 [facility] DATE CREATED AUTHOR AUTHOR'S ORGANIZ ATION 10/08/2018 [facility] DATE CREATED AUTHOR AUTHOR'S ORGANIZ ATION 11/21/2023 [facility] ([place]) DATE CREATED AUTHOR AUTHOR'S ORGANIZ ATION 02/09/2024 [facility] DATE CREATED AUTHOR AUTHOR'S ORGANIZ ATION 04/25/2024 [facility] DATE CREATED AUTHOR AUTHOR'S ORGANIZ ATION 10/28/2024 [facility] DATE CREATED AUTHOR AUTHOR'S ORGANIZ ATION 12/04/2024 [facility] Care Team (unrecognized sect ion and content) Behavioral Health Aide Relationship Specialty Start Date End Date Katherine Munoz MD [address] [place], [place] [address] PCP - General Internal Medicine 06/09/20 Steve Longoria [address] [place] [phone] Referring Orthopedics 08/24/16 Bear Sabillon MD [address] [place] [address] Pain Management 07/15/18 Behavioral Health Aide Relationship Specialty Start Date End Date Katherine Munoz MD [address] [place] [address] [place], [place] [address] PCP - General Internal Medicine 06/09/20 Steve Longoria [address] [place] [address] Referring Orthopedics 08/24/16 Bear Sabillon MD [address] [place] [address] Pain Management 07/15/18 Behavioral Health Aide Relationship Specialty Start Date End Date Katherine Munoz MD [address] [address] [place], [place] [address] 617- PCP - General Internal Medicine 06/09/20 [facility] [address] [place] [address] [phone] Referring Orthopedics 08/24/16 Bear Sabillon MD [address] [place] [address] Pain Management 07/15/18 Behavioral Health Aide Relationship Specialty Start Date End Date Katherine Munoz MD [address] [place] [address] PCP - General Internal Medicine 06/09/20 [facility] [address] [place] [address] [phone] Referring Orthopedics 08/24/16 Bear Sabillon MD [address] [place] [address] Pain Management 07/15/18 Behavioral Health Aide Relationship Specialty Start Date End Date Katherine Munoz MD [address] [place] [address] PCP - General Internal Medicine 06/09/20 [facility] [address] [place] [address] [phone] Referring Orthopedics 08/24/16 Bear Sabillon MD [address] [place] [address] Pain Management 07/15/18 Behavioral Health Aide Relationship Specialty Start Date End Date Katherine Munoz MD [address] [place] [address] PCP - General Internal Medicine 06/09/20 [facility] [address] [place] [address] Referring Orthopedics 08/24/16 Bear Sabillon MD [address] [place] [address] Pain Management 07/15/18 Behavioral Health Aide Relationship Specialty Start Date End Date Katherine Munoz MD [address] [place] [address] PCP - General Internal Medicine 06/09/20 [place] [facility] [address] [place] [address] [phone] Referring Orthopedics 08/24/16 Bear Sabillon MD [address] [place] [address] Pain Management 07/15/18 Behavioral Health Aide Relationship Specialty Start Date End Date Katherine Munoz MD [address] [place] [address] PCP - General Internal Medicine 06/09/20 [facility] [address] [place] [address] [phone] Referring Orthopedics 08/24/16 Bear Sabillon MD [address] [place] [address] Pain Management 07/15/18 Behavioral Health Aide Relationship Specialty Start Date End Date Katherine Munoz MD [address] [place] [address] PCP - General Internal Medicine 06/09/20 [facility] [address] [place] [address] [phone] Referring Orthopedics 08/24/16 Bear Sabillon MD [address] [place] [address] Pain Management 07/15/18 Behavioral Health Aide Relationship Specialty Start Date End Date Katherine Munoz MD [address] [place] [address] PCP - General Internal Medicine 06/09/20 [facility] [address] [place] [address] Referring Orthopedics 08/24/16 Bear Sabillon MD [address] [facility] [address] [place] [address] Pain Management 07/15/18 Behavioral Health Aide Relationship Specialty Start Date End Date Katherine Munoz MD [address] [place] [address] PCP - General Internal Medicine 06/09/20 [facility] [address] [place] [address] Referring Orthopedics 08/24/16 Bear Sabillon MD Pain Management 07/15/18 Behavioral Health Aide Relationship Specialty Start Date End Date Katherine Munoz MD [address] [place] [address] PCP - General Internal Medicine 06/09/20 [facility] [address] [place] [address] Referring Orthopedics 08/24/16 Bear Sabillon MD Pain Management 07/15/18 Behavioral Health Aide Relationship Specialty Start Date End Date Katherine Munoz MD [address] [place] [address] PCP - General Internal Medicine 06/09/20 [place] [facility] [address] [place] [address] Referring Orthopedics 08/24/16 Bear Sabillon MD Pain Management 07/15/18 Behavioral Health Aide Relationship Specialty Start Date End Date Katherine Munoz MD [address] [place] [address] PCP - General Internal Medicine 06/09/20 [place] [facility] [address] [place] [address] [phone] Referring Orthopedics 08/24/16 Bear Sabillon MD Pain Management 07/15/18 Behavioral Health Aide Relationship Specialty Start Date End Date Katherine Munoz MD [address] [place] [address] PCP - General Internal Medicine 06/09/20 [place] [facility] [address] [place] [address] Referring Orthopedics 08/24/16 Bear Sabillon MD Pain Management 07/15/18 Behavioral Health Aide Relationship Specialty Start Date End Date Katherine Munoz MD [address] [place] [address] PCP - General Internal Medicine 06/09/20 [place] [facility] [address] [place] [address] Referring Orthopedics 08/24/16 Bear Sabillon MD Pain Management 07/15/18 Behavioral Health Aide Relationship Specialty Start Date End Date Katherine Munoz MD [address] [place] [address] PCP - General Internal Medicine 06/09/20 Steve Longoria [address] [place] [address] Referring Orthopedics 08/24/16 Bear Sabillon MD Pain Management 07/15/18 Behavioral Health Aide Relationship Specialty Start Date End Date Katherine Munoz MD [address] [place] [address] PCP - General Internal Medicine 06/09/20 Steve Longoria [address] [place] [address] Referring Orthopedics 08/24/16 Bear Sabillon MD Pain Management 07/15/18 Behavioral Health Aide Relationship Specialty Start Date End Date Katherine Munoz MD [address] [place] [address] PCP - General Internal Medicine 06/09/20 Steve Longoria [address] [place] [address] Referring Orthopedics 08/24/16 Bear Sabillon MD [address] [place] [address] Pain Management 07/15/18 Behavioral Health Aide Relationship Specialty Start Date End Date Katherine Munoz MD [address] [place] [address] PCP - General Internal Medicine 06/09/20 [place] [facility] [address] [place] [address] Referring Orthopedics 08/24/16 Bear Sabillon MD [address] [place] [address] Pain Management 07/15/18 Behavioral Health Aide Relationship Specialty Start Date End Date Katherine Munoz MD [address] [place] [address] PCP - General Internal Medicine 06/09/20 [place] [facility] [address] [place] [address] [phone] Referring Orthopedics 08/24/16 Bear Sabillon MD [address] [place] [address] Pain Management 07/15/18 Behavioral Health Aide Relationship Specialty Start Date End Date Katherine Munoz MD [address] [place] [address] PCP - General Internal Medicine 06/09/20 [place] [facility] [address] [place] [address] Referring Orthopedics 08/24/16 Bear Sabillon MD [address] [place] [address] Pain Management 07/15/18 Behavioral Health Aide Relationship Specialty Start Date End Date Katherine Munoz MD [address] [place] [address] PCP - General Internal Medicine 06/09/20 Steve Longoria [address] [place] [address] Referring Orthopedics 08/24/16 Bear Sabillon MD [address] [place] [address] Pain Management 07/15/18 Behavioral Health Aide Relationship Specialty Start Date End Date Katherine Munoz MD [address] [place] [address] PCP - General Internal Medicine 06/09/20 Steve Longoria [address] [place] [address] Referring Orthopedics 08/24/16 Bear Sabillon MD [address] [place] [address] Pain Management 07/15/18 Behavioral Health Aide Relationship Specialty Start Date End Date Katherine Munoz MD [address] [place] [address] PCP - General Internal Medicine 06/09/20 Steve Longoria [address] [place] [address] Referring Orthopedics 08/24/16 Bear Sabillon MD [address] [place] [address] Pain Management 07/15/18 Team Status: Active Member Role Status Dates Dr. Katherine Munoz MD Family Provider Active Dr. Katherine Munoz MD Primary Care Provider Active Team Status: Inactive Member Role Status Dates Dr. Katherine Munoz MD Primary Care Provider, Refer ring Provider Active Crys Waller CORE MEASURES ABSTRACTOR, CORE MEASURES ABSTRACTOR-C Attending Provider Active Team Status: Inactive Member Role Status Dates Dr. Katherine Munoz MD Primary Care P rovider, Attending Provider, Referring Provider Active Team Status: Inactive Member Role Status Dates Dr. Katherine Munoz MD Primary Care Provider, Refer ring Provider Active YURI Santoro Attending Provider Active Team Status: Inactive Member Role Status Dates Dr. Katherine Munoz MD Primary Care Provider Active Dr. Iain Marcelo MD Attending Provider, Emergency Provider Active Team Status: Inactive Member Role Status Dates Dr. Katherine Munoz MD Primary Care Provider Active Dr. Valerio Rhodes DO Attending Provider, Emergency P rovider Active Team Status: Inactive Member Role Status Dates Dr. Katherine Munoz MD Primary Care Provider Active YURI Santoro Attending Provider Active Team Status: Inactive Member Role Status Dates Dr. Katherine Munoz MD Primary Care Provider Active Dr. Alona Campo DO Emergency Provider Active Team Status: Inactive Member Role Status Dates Dr. Katherine Munoz MD Primary Care Provider Active Dr. Lacy Walter MD Emergency Provider Active Team Status: Inactive Member Role Status Dates Dr. Katherine Munoz MD Primary Care Provider Active Dr. Alona Campo DO Attending Provider, Emergency Pro vider Active Team Status: Inactive Member Role Status Dates Dr. Katherine Munoz MD Primary Care Provider Active Dr. Lacy Walter MD Attending Provider, Emergency Provider Active Team Status: Inactive Member Role Status Dates Dr. Katherine Munoz MD Primary Care Provider Active Dr. Delfino Garza DO Emergency Provider Active Behavioral Health Aide Relationship Specialty Start Date End Date Katherine Munoz MD [address] [place] [address] PCP - General Internal Medicine 06/09/20 Steve Lognoria [address] [place] [address] Referring Orthopedics 08/24/16 Bear Sabillon MD [address] [place] [address] Pain Management 07/15/18 Behavioral Health Aide Relationship Specialty Start Date End Date Katherine Munoz MD [address] [facility] [address] [place], [place] [id number] PCP - General Internal Medicine 06/09/20 Steve Longoria [address] [place] [address] Referring Orthopedics 08/24/16 Bear Sabillon MD [address] [place] [address] Pain Management 07/15/18 Team Status: Inactive Member Role Status Dates Dr. Katherine Munoz MD Primary Care Provider, Refer ring Provider Active Dr. Fish Pitt DO Attending Provider Active Team Status: Inactive Member Role Status Dates Dr. Katherine Munoz MD Primary Care Provider, Refer ring Provider Active Александр Valdes CORE MEASURES ABSTRACTOR, CORE MEASURES ABSTRACTOR-C Attending Provider Active Team Status: Inactive Member Role Status Dates Dr. Katherine Munoz MD Primary Care Provider Active Dr. Delfino Garza DO Attending Provider, Emergency Provide r Active Team Status: Inactive Member Role Status Dates Dr. Katherine Munoz MD Primary Care Provider Active Dr. Fish Pitt DO Attending Provider, Referring Provider Active Team Status: Inactive Member Role Status Dates Dr. Katherine Munoz MD Primary Care Provider Active Crys Waller CORE MEASURES ABSTRACTOR, CORE MEASURES ABSTRACTOR-C Attending Provider, Referrin g Provider Active Team Status: Inactive Member Role Status Dates Dr. Katherine Munoz MD Primary Care Provider Active Dg Peacock MD Attending Provider, Emergency Provid er Active Team Status: Active Member Role Status Dates Dr. Katherine Munoz MD Primary Care Provider Active Александр Valdes CORE MEASURES ABSTRACTOR, CORE MEASURES ABSTRACTOR-C Attending Provider Active Team Status: Inactive Member Role Status Dates Dr. Katherine Munoz MD Primary Care Provider Active Александр Valdes CORE MEASURES ABSTRACTOR, CORE MEASURES ABSTRACTOR-C Attending Provider Active Team Status: Active Member Role Status Dates Dr. Katherine Munoz MD Primary Care Provider, Refer ring Provider Active Dr. Gary Diaz DO Attending Provider, Other Prov ider Active Team Status: Inactive Member Role Status Dates Dr. Katherine Munoz MD Primary Care Provider, Refer ring Provider Active Dr. Gary Diaz DO Attending Provider Active Team Status: Inactive Member Role Status Dates Dr. Katherine Munoz MD Primary Care Provider Active Dr. Cj Nice DO Emergency Provider Active Behavioral Health Aide Relationship Specialty Start Date End Date Katherine Munoz MD [address] [facility] [place] [address] PCP - General Internal Medicine 06/09/20 Steve Longoria [address] [place] [address] Referring Orthopedics 08/24/16 Bear Sabillon MD [address] [place] [address] Pain Management 07/15/18 Behavioral Health Aide Relationship Specialty Start Date End Date Katherine Munoz MD [address] [place] [address] PCP - General Internal Medicine 06/09/20 Steve Longoria [address] [facility] [address] Referring Orthopedics 08/24/16 Bear Sabillon MD [address] [place] [address] Pain Management 07/15/18 Behavioral Health Aide Relationship Specialty Start Date End Date Katherine Munoz MD [address] [place], [place] [id number] PCP - General Internal Medicine 06/09/20 Steve Longoria [address] [place] [address] Referring Orthopedics 08/24/16 Bear Sabillon MD [address] [place] [address] Pain Management 07/15/18 Behavioral Health Aide Relationship Specialty Start Date End Date Katherine Munoz MD [address] [place] [address] PCP - General Internal Medicine 06/09/20 Steve Longoria [address] [place] [address] Referring Orthopedics 08/24/16 Bear Sabillon MD [address] [place] [address] Pain Management 07/15/18 Behavioral Health Aide Relationship Specialty Start Date End Date Katherine Munoz MD [address] [place], [place] [address] PCP - General Internal Medicine 06/09/20 Steve Longoria [address] [place] [address] Referring Orthopedics 08/24/16 Bear Sabillon MD [address] [place] [address] Pain Management 07/15/18 Team Status: Inactive Member Role Status Dates Dr. Katherine Munoz MD Primary Care Provider Active Robert WELCH, [place] Attending Provider Active Team Status: Inactive Member Role Status Dates Dr. Katherine Munoz MD Primary Care Provider Active Dr. Cj Nice DO Attending Provider, [facility] omar Active Team Status: Inactive Member Role Status Dates Dr. Katherine Munoz MD Primary Care Provider Active Dr. Kim Riggs MD Attending Provider Active Behavioral Health Aide Relationship Specialty Start Date End Date Katherine Munoz MD [address] [place] [address] PCP - General Internal Medicine 06/09/20 Steve Longoria [address] [place] [address] Referring Orthopedics 08/24/16 Bear Sabillon MD [address] [place] [address] Pain Management 07/15/18 Vaishali Contreras MD [address] [facility] [address] [place] [address] Nephrology 04/05/23 Team Status: Inactive Member Role Status Dates Dr. Katherine Munoz MD Primary Care Provider, Refer ring Provider Active Dr. Adelina Handy MD Attending Provider Active Team Status: Active Member Role Status Dates Dr. Katherine Munoz MD Primary Care Provider Active Dr. Valerio Rubio MD Attending Provider Active Team Status: Active Member Role Status Dates Dr. Katherine Munoz MD Primary Care Provider Active Lakshmi Rojas CORE MEASURES ABSTRACTOR, CORE MEASURES ABSTRACTOR-C Attending Provider Active Team Status: Active Member Role Status Dates Dr. Katherine Munoz MD Primary Care Provider Active Dr. Adelina Handy MD Attending Provider Active Team Status: Active Member Role Status Dates Dr. Katherine Munoz MD Primary Care Provider Active Dr. Adelina Handy MD Attending Provider , Referring Provider, Other Provider Active Team Status: Inactive Member Role Status Dates Dr. Katherine Munoz MD Primary Care Provider Active Dr. Adelina Handy MD Attending Provider, Referring Pr ovider Active Behavioral Health Aide Relationship Specialty Start Date End Date Katherine Munoz MD [address] [place], [place] [address] PCP - General Internal Medicine 06/09/20 Steve Longoria [address] [facility] [address] [place] [address] Referring Orthopedics 08/24/16 Bear Sabillon MD [address] [facility] [address] [place] [address] Pain Management 07/15/18 Vaishali Contreras MD [address] [place] [address] [address] [place], [place] [id number] Nephrology 04/05/23 Behavioral Health Aide Relationship Specialty Start Date End Date Katherine Munoz MD [address] [place] [address] PCP - General Internal Medicine 06/09/20 Steve Longoria [address] [place] [address] Referring Orthopedics 08/24/16 Bear Sabillon MD [address] [place] [address] Pain Management 07/15/18 Vaishali Contreras MD [address] [facility] [address] [place] [address] Nephrology 04/05/23 Behavioral Health Aide Relationship Specialty Start Date End Date Katherine Munoz MD [address] [facility] [place] [address] PCP - General Internal Medicine 06/09/20 Steve Longoria [address] [place] [address] Referring Orthopedics 08/24/16 Bear Sabillon MD [address] [place] [address] Pain Management 07/15/18 Vaishali Contreras MD [address] [facility] [address] [place] [address] Nephrology 04/05/23 Team Status: Active Member Role Status Dates Dr. Katherine Munoz MD Primary Care Provider Active Dr. Valerio Rubio MD Attending Provider Active Dr. Adelina Handy MD Referring Provider Active Team Status: Active Member Role Status Dates Dr. Katherine Munoz MD Primary Care Provider Active Dr. Adelina Handy MD Attending Provider, Referring Pr ovider Active Team Status: Inactive Member Role Status Dates Dr. Katherine Munoz MD Primary Care Provider Active CORE MEASURES ABSTRACTOR. Melissa Mariee Attending Provider, Referring Provid er Active Behavioral Health Aide Relationship Specialty Start Date End Date Katherine Munoz MD [address] [facility] [place], [place] [address] PCP - General Internal Medicine 06/09/20 Steve Longoria [address] [place] [phone] Referring Orthopedics 08/24/16 Bear Sabillon MD [address] [place] [phone] Pain Management 07/15/18 Vaishali Contreras MD [address] [facility] 1 [place] [address] Nephrology 04/05/23 Team Status: Inactive Member Role Status Dates Dr. Katherine Munoz MD Primary Care Marco Antonio nelson, Attending Provider, Referring Provider Active CHRISTIANO CHIN Other Provider Active Behavioral Health Aide Relationship Specialty Start Date End Date Katherine Munoz MD [address] [facility] [place], [place] [address] PCP - General Internal Medicine 06/09/20 Steve Longoria [address] [place] [phone] Referring Orthopedics 08/24/16 Bear Sabillon MD [address] [place] [address] Pain Management 07/15/18 Vaishali Contreras MD [address] [facility] 1 [place] [address] Nephrology 04/05/23 Behavioral Health Aide Relationship Specialty Start Date End Date Katherine Munoz MD [address] [facility] [place], [place] [address] PCP - General Internal Medicine 06/09/20 Steve Longoria [address] [facility] [address] [place] [phone] Referring Orthopedics 08/24/16 Bear Sabillon MD [facility] [facility] [address] [facility] [address] [place] [phone] Pain Management 07/15/18 Vaishali Contreras MD [address] [facility] 1 [place] [address] Nephrology 04/05/23 Team Status: Inactive Member Role Status Dates Dr. Katherine Munoz MD Primary Care Provider Active Dr. Vega Friend , DO Attending Provider, Referring Provider Active Behavioral Health Aide Relationship Specialty Start Date End Date Katherine Munoz MD [address] [facility] [place], [place] [address] PCP - General Internal Medicine 06/09/20 Steve Longoria [address] [facility] [address] [place] [phone] Referring Orthopedics 08/24/16 Bear Sabillon MD [address] [place] [phone] Pain Management 07/15/18 Vaishali Contreras MD [address] [facility] [address] [place] [address] Nephrology 04/05/23 Behavioral Health Aide Relationship Specialty Start Date End Date Katherine Munoz MD [address] [place], [place] [id number] PCP - General Internal Medicine 06/09/20 Steve Longoria [address] [place] [phone] Referring Orthopedics 08/24/16 Bear Sabillon MD [address] [facility] [address] [place] [phone] Pain Management 07/15/18 Vaishali Contreras MD [address] [facility] 1 [place] [address] Nephrology 04/05/23 Team Status: Inactive Member Role Status Dates Dr. Katherine Munoz MD Primary Care Provider Active Dr. Vega Friend , DO Other Provider Active YURI Navarro Attending Provider, Referring Provi mau Active Behavioral Health Aide Relationship Specialty Start Date End Date Katherine Munoz MD [address] [place], [place] [id number] PCP - General Internal Medicine 06/09/20 Steve Longoria [address] [place] [phone] Referring Orthopedics 08/24/16 Bear Sabillon MD [address] [place] [phone] Pain Management 07/15/18 Vaishali Contreras MD [address] [facility] 1 [place] [address] Nephrology 04/05/23 Behavioral Health Aide Relationship Specialty Start Date End Date Katherine Munoz MD [address] [place], [place] [address] PCP - General Internal Medicine 06/09/20 Steve Longoria [address] [place] [phone] Referring Orthopedics 08/24/16 Bear Sabillon MD [address] [place] [phone] Pain Management 07/15/18 Vaishali Contreras MD [address] [address] Nephrology 04/05/23 Behavioral Health Aide Relationship Specialty Start Date End Date Katherine Munoz MD [address] [place] [address] PCP - General Internal Medicine 06/09/20 Steve Longoria [address] [place] [address] Referring Orthopedics 08/24/16 Bear Sabillon MD [address] [place] [address] Pain Management 07/15/18 Vaishali Contreras MD [address] [address] Nephrology 04/05/23 Behavioral Health Aide Relationship Specialty Start Date End Date Katherine Munoz MD [address] [place] [address] [place], [place] [id number] PCP - General Internal Medicine 06/09/20 Steve Longoria [address] [place] [address] Referring Orthopedics 08/24/16 Bear Sabillon MD [address] [place] [phone] Pain Management 07/15/18 Vaishali Contreras MD [address] [address] Nephrology 04/05/23 Behavioral Health Aide Relationship Specialty Start Date End Date Katherine Munoz MD [address] [place] [address] PCP - General Internal Medicine 06/09/20 Steve Longoria [address] [place] [address] Referring Orthopedics 08/24/16 Bear Sabillon MD [address] [place] [address] Pain Management 07/15/18 Vaishali Contreras MD [address] [address] Nephrology 04/05/23 Behavioral Health Aide Relationship Specialty Start Date End Date Katherine Munoz MD [address] [place] [address] PCP - General Internal Medicine 06/09/20 Steve Longoria [address] [place] [phone] Referring Orthopedics 08/24/16 Bear Sabillon MD [address] [place] [phone] Pain Management 07/15/18 Vaishali Contreras MD [address] [place] [address] Nephrology 04/05/23 Behavioral Health Aide Relationship Specialty Start Date End Date Katherine Munoz MD [address] [place] [address] PCP - General Internal Medicine 06/09/20 Steve Longoria [address] [place] [phone] Referring Orthopedics 08/24/16 Bear Sabillon MD [address] [place] [phone] Pain Management 07/15/18 Vaishali Contreras MD [address] [facility] [address] [place] [address] Nephrology 04/05/23 Behavioral Health Aide Relationship Specialty Start Date End Date Katherine Munoz MD [address] [place], [place] [address] PCP - General Internal Medicine 06/09/20 Steve Longoria [address] [place] [address] Referring Orthopedics 08/24/16 Bear Sabillon MD [address] [place] [address] Pain Management 07/15/18 Vaishali Contreras MD [address] [facility] [address] [place] [address] Nephrology 04/05/23 Behavioral Health Aide Relationship Specialty Start Date End Date Katherine Munoz MD [address] [place] [address] PCP - General Internal Medicine 06/09/20 Steve Longoria [address] [place] [address] Referring Orthopedics 08/24/16 Bear Sabillon MD [address] [place] [address] Pain Management 07/15/18 Vaishali Contreras MD [address] [facility] 1 [place] [address] Nephrology 04/05/23 Behavioral Health Aide Relationship Specialty Start Date End Date Katherine Munoz MD [address] [place] [address] PCP - General Internal Medicine 06/09/20 Steve Longoria [address] [place] [phone] Referring Orthopedics 08/24/16 Bear Sabillon MD [address] [place] [phone] Pain Management 07/15/18 Vaishali Contreras MD [address] [facility] 1 [place] [address] Nephrology 04/05/23 Behavioral Health Aide Relationship Specialty Start Date End Date Katherine Munoz MD [address] [place] [address] PCP - General Internal Medicine 06/09/20 Steve Longoria [address] [place] [address] Referring Orthopedics 08/24/16 Bear Sabillon MD [address] [place] [phone] Pain Management 07/15/18 Vaishali Contreras MD [address] [facility] 1 [place] [address] Nephrology 04/05/23 Behavioral Health Aide Relationship Specialty Start Date End Date Katherine Munoz MD [address] [place], [place] [address] PCP - General Internal Medicine 06/09/20 Steve Longoria [address] [place] [phone] Referring Orthopedics 08/24/16 Bear Sabillon MD [address] [place] [address] Pain Management 07/15/18 Vaishali Contreras MD [address] [facility] 1 [place] [address] Nephrology 04/05/23 Behavioral Health Aide Relationship Specialty Start Date End Date Katherine Munoz MD [address] [place] [address] PCP - General Internal Medicine 06/09/20 Steve Longoria [address] [place] [phone] Referring Orthopedics 08/24/16 Bear Sabillon MD [address] [place] [phone] Pain Management 07/15/18 Vaishali Contreras MD [address] [facility] 1 [place] [address] Nephrology 04/05/23 Behavioral Health Aide Relationship Specialty Start Date End Date Katherine Munoz MD [address] [place] [place], [place] [address] PCP - General Internal Medicine 06/09/20 Steve Longoria [address] [place] [phone] Referring Orthopedics 08/24/16 Bear Sabillon MD [address] [place] [phone] Pain Management 07/15/18 Vaishali Contreras MD [address] [facility] 1 [place] [address] Nephrology 04/05/23 Behavioral Health Aide Relationship Specialty Start Date End Date Katherine Munoz MD [address] [place], [place] [address] PCP - General Internal Medicine 06/09/20 Steve Longoria [address] [place] [phone] Referring Orthopedics 08/24/16 Bear Sabillon MD [address] [facility] [address] [place] [phone] Pain Management 07/15/18 Vaishali Contreras MD [address] [place] [address] Nephrology 04/05/23 Behavioral Health Aide Relationship Specialty Start Date End Date Katherine Munoz MD [address] [facility] [place] [address] PCP - General Internal Medicine 06/09/20 Steve Longoria [address] [facility] [address] [place] [address] Referring Orthopedics 08/24/16 Bear Sabillon MD [address] [facility] [address] [place] [address] Pain Management 07/15/18 Vaishali Contreras MD [address] [address] Nephrology 04/05/23 Team Status: Active Member Role Status Dates Dr. Katherine Munoz MD Primary Care Provider Active Team Status: Inactive Member Role Status Dates Dr. Katherine Munoz MD Primary Care Provider Active Start: April 28, 2024 End: April 28, 2024 Dr. Katherine Munoz MD Attending Provider Active Start: April 28, 2024 End: April 28, 2024 Dr. Katherine Munoz MD Referring Provider Active Start: April 28, 2024 End: April 28, 2024 Team Status: Inactive Member Role Status Dates Dr. Katherine Munoz MD Primary Care Provider Active Start: April 28, 2024 End: April 28, 2024 Aliza Nieves NP, [employer] MEASURES ABSTRACTOR-C Attending Provider Active Start: April 28, 2024 End: April 28, 2024 Aliza Nieves NP, CORE MEASURES ABSTRACTOR-C Referring Provider Active Start: April 28, 2024 End: April 28, 2024 Team Status: Inactive Member Role Status Dates Dr. Katherine Munoz MD Primary Care Provider Active Start: July 09, 2024 End: July 09, 2024 Dr. Katherine Munoz MD Referring Provider Active Start: July 09, 2024 End: July 09, 2024 Dr. Gary Diaz DO Attending Provider Active Start: July 09, 2024 End: July 09, 2024 Team Status: Inactive Member Role Status Dates Dr. Katherine Munoz MD Primary Care Provider Active Start: August 22, 2024 End: August 22, 2024 Dr. Katherine Munoz MD Referring Provider Active Start: August 22, 2024 End: August 22, 2024 Dr. Gary Diaz DO Attending Provider Active Start: August 22, 2024 End: August 22, 2024 Team Status: Active Member Role Status Dates Dr. Katherine Munoz MD Primary Care Provider Active Start: August 22, 2024 Dr. Katherine Munoz MD Referring Provider Active Start: August 22, 2024 Dr. Gary Diza DO Attending Provider Active Start: August 22, 2024 Dr. Gary Diaz DO Other Provider Active St art: August 22, 2024 Team Status: Active Member Role Status Dates Dr. Katherine Munoz MD Primary Care Provider Active Start: August 22, 2024 End: August 22, 2024 Dr. Bart Simmons MD Attending Provider Active S tart: August 22, 2024 End: August 22, 2024 Dr. Valerio Balderas MD Referring Provider Active Start: August 22, 2024 End: August 22, 2024 Team Status: Inactive Member Role Status Dates Dr. Katherine Munoz MD Primary Care Provider Active Start: August 27, 2024 End: August 27, 2024 Dr. Gary Diaz DO Attending Provider Active Start: August 27, 2024 End: August 27, 2024 Behavioral Health Aide Relationship Specialty Start Date End Date Katherine Munoz MD [address] [place] [address] PCP - General Internal Medicine 06/09/20 Steve Longoria [address] [place] [phone] Referring Orthopedics 08/24/16 Bear Sabillon MD [address] [place] [phone] Pain Management 07/15/18 Vaishali Contreras MD [address] [place] [address] Nephrology 04/05/23 Trish Adames MD [address] [place] [address] Internal Medicine 09/12/24 Behavioral Health Aide Relationship Specialty [place] [address] [place] [address] [place], [place] [address] PCP - General Internal Medicine 06/09/20 Steve Longoria [address] [place] [phone] Referring Orthopedics 08/24/16 Bear Sabillon MD [address] [place] [phone] Pain Management 07/15/18 Vaishali Contreras MD [address] [facility] [place] [address] Nephrology 04/05/23 Trish Adames MD [address] [place] [address] Internal Medicine 09/12/24 Team Status: Active Member Role Status Dates Dr. Katherine Munoz MD Primary Care Provider Active Start: September 19, 2024 Dr. Gary Diaz DO Attending Provider Active Start: September 19, 2024 Dr. Gary Diaz DO Referring Provider Active Start: September 19, 2024 Team Status: Inactive Member Role Status Dates Dr. Katherine Munoz MD Primary Care Provider Active Start: September 24, 2024 End: September 24, 2024 Dr. Daniel Pena MD Emergency Provider Active Sta rt: September 24, 2024 End: September 24, 2024 Team Status: Inactive Member Role Status Dates Dr. Katherine Munoz MD Primary Care Provider Active Start: September 19, 2024 End: September 19, 2024 Dr. Gary Diaz DO Attending Provider Active Start: September 19, 2024 End: September 19, 2024 Dr. Gary Diaz DO Referring Provider Active Start: September 19, 2024 End: September 19, 2024 Team Status: Inactive Member Role Status Dates Dr. Katherine Munoz MD Primary Care Provider Active Start: September 24, 2024 End: September 24, 2024 Dr. Daniel Pena MD Attending Provider Active Sta rt: September 24, 2024 End: September 24, 2024 Dr. Daniel Pena MD Emergency Provider Active Sta rt: September 24, 2024 End: September 24, 2024 Team Status: Inactive Member Role Status Dates Dr. Katherine Munoz MD Primary Care Provider Active Start: October 01, 2024 End: October 01, 2024 Dr. Katherine Munoz MD Referring Provider Active Start: October 01, 2024 End: October 01, 2024 Dr. Damaso Mcgarry MD Attending Provider Active Start: October 01, 2024 End: October 01, 2024 Team Status: Inactive Member Role Status Dates Dr. Katherine Munoz MD Primary Care Provider Active Start: October 02, 2024 End: October 02, 2024 Dr. Delfino Garza DO Referring Provider Active Start : October 02, 2024 End: October 02, 2024 Dr. Delfino Garza DO Emergency Provider Active Start : October 02, 2024 End: October 02, 2024 Team Status: Active Member Role/Relationship Status Dates Dr. Katherine Munoz MD Primary Care Provider Active Team Status: Inactive Member Role/Relationship Status Dates Dr. Katherine Munoz MD Primary Care Provider Active Start: July 09, 2024 End: July 09, 2024 Dr. Katherine Munoz MD Referring Provider Active Start: July 09, 2024 End: July 09, 2024 Dr. Gary Diaz DO Attending Provider Active Start: July 09, 2024 End: July 09, 2024 Team Status: Inactive Member Role/Relationship Status Dates Dr. Katherine Munoz MD Primary Care Provider Active Start: August 22, 2024 End: August 22, 2024 Dr. Katherine Munoz MD Referring Provider Active Start: August 22, 2024 End: August 22, 2024 Dr. Gary Diaz DO Attending Provider Active Start: August 22, 2024 End: August 22, 2024 Team Status: Active Member Role/Relationship Status Dates Dr. Katherine Munoz MD Primary Care Provider Active Start: August 22, 2024 Dr. Katherine Munoz MD Referring Provider Active Start: August 22, 2024 Dr. Gary Diaz DO Attending Provider Active Start: August 22, 2024 Dr. Gary Diaz DO Other Provider Active St art: August 22, 2024 Team Status: Active Member Role/Relationship Status Dates Dr. Katherine Munoz MD Primary Care Provider Active Start: August 22, 2024 End: August 22, 2024 Dr. Bart Simmons MD Attending Provider Active S tart: August 22, 2024 End: August 22, 2024 Dr. Valerio Balderas MD Referring Provider Active Start: August 22, 2024 End: August 22, 2024 Team Status: Inactive Member Role/Relationship Status Dates Dr. Katherine Munoz MD Primary Care Provider Active Start: August 27, 2024 End: August 27, 2024 Dr. Gary Diaz DO Attending Provider Active Start: August 27, 2024 End: August 27, 2024 Team Status: Inactive Member Role/Relationship Status Dates Dr. Katherine Munoz MD Primary Care Provider Active Start: September 19, 2024 End: September 19, 2024 Dr. Gary Diaz DO Attending Provider Active Start: September 19, 2024 End: September 19, 2024 Dr. Gary Diaz DO Referring Provider Active Start: September 19, 2024 End: September 19, 2024 Team Status: Inactive Member Role/Relationship Status Dates Dr. Katherine Munoz MD Primary Care Provider Active Start: September 24, 2024 End: September 24, 2024 Dr. Daniel Pena MD Attending Provider Active Sta rt: September 24, 2024 End: September 24, 2024 Dr. Daniel Pena MD Emergency Provider Active Sta rt: September 24, 2024 End: September 24, 2024 Team Status: Inactive Member Role/Relationship Status Dates Dr. Katherine Munoz MD Primary Care Provider Active Start: October 01, 2024 End: October 01, 2024 Dr. Katherine Munoz MD Referring Provider Active Start: October 01, 2024 End: October 01, 2024 Dr. Damaso Mcgarry MD Attending Provider Active Start: October 01, 2024 End: October 01, 2024 Team Status: Inactive Member Role/Relationship Status Dates Dr. Katherine Munoz MD Primary Care Provider Active Start: October 02, 2024 End: October 02, 2024 Dr. Delfino Garza DO Attending Provider Active Start : October 02, 2024 End: October 02, 2024 Dr. Delfino Garza DO Referring Provider Active Start : October 02, 2024 End: October 02, 2024 Dr. Delfino Garza DO Emergency Provider Active Start : October 02, 2024 End: October 02, 2024 Team Status: Inactive Member Role/Relationship Status Dates Dr. Katherine Munoz MD Primary Care Provider Active Start: October 13, 2024 End: October 13, 2024 Dr. Damaso Mcgarry MD Attending Provider Active Start: October 13, 2024 End: October 13, 2024 Dr. Damaso Mcgarry MD Referring Provider Active Start: October 13, 2024 End: October 13, 2024 Team Status: Active Member Role/Relationship Status Dates Dr. Katherine Munoz MD Primary Care Provider Active Start: October 13, 2024 Dr. Damaso Mcgarry MD Attending Provider Active Start: October 13, 2024 Dr. Damaso Mcgarry MD Referring Provider Active Start: October 13, 2024 Dr. Damaso Mcgarry MD Other Provider Active Start: October 13, 2024 Behavioral Health Aide Relationship Specialty Start Date End Date Katherine Munoz MD [address] [facility] [place] [place] [address] PCP - General Internal Medicine 06/09/20 Steve Longoria [address] [facility] [address] [place] [phone] Referring Orthopedics 08/24/16 Bear Sabillon MD [address] [facility] [address] [place] [address] Pain Management 07/15/18 Vaishali Contreras MD [address] [facility] [address] [place] [address] Nephrology 04/05/23 Trish Adames MD [address] [facility] [address] [place] [address] Internal Medicine 09/12/24 Team Status: Active Member Role/Relationship Status Dates Dr. Katherine Munoz MD Primary Care Provider Active Start: October 13, 2024 End: October 13, 2024 Dr. Bart Simmons MD Attending Provider Active S tart: October 13, 2024 End: October 13, 2024 Dr. Bart Simmons MD Referring Provider Active S tart: October 13, 2024 End: October 13, 2024 Team Status: Active Member Role/Relationship Status Dates Dr. Katherine Munoz MD Primary Care Provider Active Start: October 13, 2024 Dr. Damaso Mcgarry MD Attending Provider Active Start: October 13, 2024 Dr. Damaso Mcgarry MD Referring Provider Active Start: October 13, 2024 Dr. Damaso Mcgarry MD Other Provider Active Start: October 13, 2024 Team Status: Inactive Member Role/Relationship Status Dates Dr. Katherine Munoz MD Primary Care Provider Active Start: October 27, 2024 End: October 27, 2024 Dr. Katherine Munoz MD Attending Provider Active Start: October 27, 2024 End: October 27, 2024 Dr. Katherine Munoz MD Referring Provider Active Start: October 27, 2024 End: October 27, 2024 Source Comments (unrecognize d section and content) In the event this informatio n is protected by the Federal Confidentiality of Alcohol and Drug Abuse Patient Records regulations: The Federal rules restrict any use of the information to criminally investigate or prosecute any alcohol or drug abuse patient.[facility] the event this information is protected by the Federal Confidentiality of Alcohol and Drug Abuse Patient Records regulations: The Federal rules restrict any use of the information to criminally investigate or prosecute any alcohol or drug abuse patient.[facility] the event this information is protected by the Federal Confidentiality of Alcohol and Drug Abuse Patient Records regulations: The Federal rules restrict any use of the information to criminally investigate or prosecute any alcohol or drug abuse patient.[facility] the event this information is protected by the Federal Confidentiality of Alcohol and Drug Abuse Patient Records regulations: The Federal rules restrict any use of the information to criminally investigate or prosecute any alcohol or drug abuse patient.[facility] the event this information is protected by the Federal Confidentiality of Alcohol and Drug Abuse Patient Records regulations: The Federal rules restrict any use of the information to criminally investigate or prosecute any alcohol or drug abuse patient.[facility] the event this information is protected by the Federal Confidentiality of Alcohol and Drug Abuse Patient Records regulations: The Federal rules restrict any use of the information to criminally investigate or prosecute any alcohol or drug abuse patient.[facility] the event this information is protected by the Federal Confidentiality of Alcohol and Drug Abuse Patient Records regulations: The Federal rules restrict any use of the information to criminally investigate or prosecute any alcohol or drug abuse patient.[facility] the event this information is protected by the Federal Confidentiality of Alcohol and Drug Abuse Patient Records regulations: The Federal rules restrict any use of the information to criminally investigate or prosecute any alcohol or drug abuse patient.[facility]In the event this information is protected by the Federal Confidentiality of Alcohol and Drug Abuse Patient Records regulations: The Federal rules restrict any use of the information to criminally investigate or prosecute any alcohol or drug abuse patient.[facility]In the event this information is protected by the Federal Confidentiality of Alcohol and Drug Abuse Patient Records regulations: The Federal rules restrict any use of the information to criminally investigate or prosecute any alcohol or drug abuse patient.[facility]In the event this information is protected by the Federal Confidentiality of Alcohol and Drug Abuse Patient Records regulations: The Federal rules restrict any use of the information to criminally investigate or prosecute any alcohol or drug abuse patient.[facility]In the event this information is protected by the Federal Confidentiality of Alcohol and Drug Abuse Patient Records regulations: The Federal rules restrict any use of the information to criminally investigate or prosecute any alcohol or drug abuse patient.[facility]In the event this information is protected by the Federal Confidentiality of Alcohol and Drug Abuse Patient Records regulations: The Federal rules restrict any use of the information to criminally investigate or prosecute any alcohol or drug abuse patient.[facility]In the event this information is protected by the Federal Confidentiality of Alcohol and Drug Abuse Patient Records regulations: The Federal rules restrict any use of the information to criminally investigate or prosecute any alcohol or drug abuse patient.[facility]In the event this information is protected by the Federal Confidentiality of Alcohol and Drug Abuse Patient Records regulations: The Federal rules restrict any use of the information to criminally investigate or prosecute any alcohol or drug abuse patient.[facility]In the event this information is protected by the Federal Confidentiality of Alcohol and Drug Abuse Patient Records regulations: The Federal rules restrict any use of the information to criminally investigate or prosecute any alcohol or drug abuse patient.[facility]In the event this information is protected by the Federal Confidentiality of Alcohol and Drug Abuse Patient Records regulations: The Federal rules restrict any use of the information to criminally investigate or prosecute any alcohol or drug abuse patient.[facility]In the event this information is protected by the Federal Confidentiality of Alcohol and Drug Abuse Patient Records regulations: The Federal rules restrict any use of the information to criminally investigate or prosecute any alcohol or drug abuse patient.[facility]In the event this information is protected by the Federal Confidentiality of Alcohol and Drug Abuse Patient Records regulations: The Federal rules restrict any use of the information to criminally investigate or prosecute any alcohol or drug abuse patient.[facility]In the event this information is protected by the Federal Confidentiality of Alcohol and Drug Abuse Patient Records regulations: The Federal rules restrict any use of the information to criminally investigate or prosecute any alcohol or drug abuse patient.[facility]In the event this information is protected by the Federal Confidentiality of Alcohol and Drug Abuse Patient Records regulations: The Federal rules restrict any use of the information to criminally investigate or prosecute any alcohol or drug abuse patient.[facility]In the event this information is protected by the Federal Confidentiality of Alcohol and Drug Abuse Patient Records regulations: The Federal rules restrict any use of the information to criminally investigate or prosecute any alcohol or drug abuse patient.[facility]In the event this information is protected by the Federal Confidentiality of Alcohol and Drug Abuse Patient Records regulations: The Federal rules restrict any use of the information to criminally investigate or prosecute any alcohol or drug abuse patient.[facility]In the event this information is protected by the Federal Confidentiality of Alcohol and Drug Abuse Patient Records regulations: The Federal rules restrict any use of the information to criminally investigate or prosecute any alcohol or drug abuse patient.[facility]In the event this information is protected by the Federal Confidentiality of Alcohol and Drug Abuse Patient Records regulations: The Federal rules restrict any use of the information to criminally investigate or prosecute any alcohol or drug abuse patient.[facility]In the event this information is protected by the Federal Confidentiality of Alcohol and Drug Abuse Patient Records regulations: The Federal rules restrict any use of the information to criminally investigate or prosecute any alcohol or drug abuse patient.[facility]In the event this information is protected by the Federal Confidentiality of Alcohol and Drug Abuse Patient Records regulations: The Federal rules restrict any use of the information to criminally investigate or prosecute any alcohol or drug abuse patient.[facility]In the event this information is protected by the Federal Confidentiality of Alcohol and Drug Abuse Patient Records regulations: The Federal rules restrict any use of the information to criminally investigate or prosecute any alcohol or drug abuse patient.[facility]In the event this information is protected by the Federal Confidentiality of Alcohol and Drug Abuse Patient Records regulations: The Federal rules restrict any use of the information to criminally investigate or prosecute any alcohol or drug abuse patient.[facility]In the event this information is protected by the Federal Confidentiality of Alcohol and Drug Abuse Patient Records regulations: The Federal rules restrict any use of the information to criminally investigate or prosecute any alcohol or drug abuse patient.[facility]In the event this information is protected by the Federal Confidentiality of Alcohol and Drug Abuse Patient Records regulations: The Federal rules restrict any use of the information to criminally investigate or prosecute any alcohol or drug abuse patient.[facility]In the event this information is protected by the Federal Confidentiality of Alcohol and Drug Abuse Patient Records regulations: The Federal rules restrict any use of the information to criminally investigate or prosecute any alcohol or drug abuse patient.[facility]In the event this information is protected by the Federal Confidentiality of Alcohol and Drug Abuse Patient Records regulations: The Federal rules restrict any use of the information to criminally investigate or prosecute any alcohol or drug abuse patient.[facility]In the event this information is protected by the Federal Confidentiality of Alcohol and Drug Abuse Patient Records regulations: The Federal rules restrict any use of the information to criminally investigate or prosecute any alcohol or drug abuse patient.[facility]In the event this information is protected by the Federal Confidentiality of Alcohol and Drug Abuse Patient Records regulations: The Federal rules restrict any use of the information to criminally investigate or prosecute any alcohol or drug abuse patient.[facility]In the event this information is protected by the Federal Confidentiality of Alcohol and Drug Abuse Patient Records regulations: The Federal rules restrict any use of the information to criminally investigate or prosecute any alcohol or drug abuse patient.[facility]In the event this information is protected by the Federal Confidentiality of Alcohol and Drug Abuse Patient Records regulations: The Federal rules restrict any use of the information to criminally investigate or prosecute any alcohol or drug abuse patient.[facility]In the event this information is protected by the Federal Confidentiality of Alcohol and Drug Abuse Patient Records regulations: The Federal rules restrict any use of the information to criminally investigate or prosecute any alcohol or drug abuse patient.[facility]In the event this information is protected by the Federal Confidentiality of Alcohol and Drug Abuse Patient Records regulations: The Federal rules restrict any use of the information to criminally investigate or prosecute any alcohol or drug abuse patient.[facility]In the event this information is protected by the Federal Confidentiality of Alcohol and Drug Abuse Patient Records regulations: The Federal rules restrict any use of the information to criminally investigate or prosecute any alcohol or drug abuse patient.[facility]In the event this information is protected by the Federal Confidentiality of Alcohol and Drug Abuse Patient Records regulations: The Federal rules restrict any use of the information to criminally investigate or prosecute any alcohol or drug abuse patient.[facility]In the event this information is protected by the Federal Confidentiality of Alcohol and Drug Abuse Patient Records regulations: The Federal rules restrict any use of the information to criminally investigate or prosecute any alcohol or drug abuse patient.[facility]In the event this information is protected by the Federal Confidentiality of Alcohol and Drug Abuse Patient Records regulations: The Federal rules restrict any use of the information to criminally investigate or prosecute any alcohol or drug abuse patient.[facility]In the event this information is protected by the Federal Confidentiality of Alcohol and Drug Abuse Patient Records regulations: The Federal rules restrict any use of the information to criminally investigate or prosecute any alcohol or drug abuse patient.[facility]In the event this information is protected by the Federal Confidentiality of Alcohol and Drug Abuse Patient Records regulations: The Federal rules restrict any use of the information to criminally investigate or prosecute any alcohol or drug abuse patient.[facility]In the event this information is protected by the Federal Confidentiality of Alcohol and Drug Abuse Patient Records regulations: The Federal rules restrict any use of the information to criminally investigate or prosecute any alcohol or drug abuse patient.[facility]In the event this information is protected by the Federal Confidentiality of Alcohol and Drug Abuse Patient Records regulations: The Federal rules restrict any use of the information to criminally investigate or prosecute any alcohol or drug abuse patient.[facility]In the event this information is protected by the Federal Confidentiality of Alcohol and Drug Abuse Patient Records regulations: The Federal rules restrict any use of the information to criminally investigate or prosecute any alcohol or drug abuse patient.[facility]In the event this information is protected by the Federal Confidentiality of Alcohol and Drug Abuse Patient Records regulations: The Federal rules restrict any use of the information to criminally investigate or prosecute any alcohol or drug abuse patient.[facility]In the event this information is protected by the Federal Confidentiality of Alcohol and Drug Abuse Patient Records regulations: The Federal rules restrict any use of the information to criminally investigate or prosecute any alcohol or drug abuse patient.[facility] SouthIn the event this information is protected by the Federal Confidentiality of Alcohol and Drug Abuse Patient Records regulations: The Federal rules restrict any use of the information to criminally investigate or prosecute any alcohol or drug abuse patient.[facility]In the event this information is protected by the Federal Confidentiality of Alcohol and Drug Abuse Patient Records regulations: The Federal rules restrict any use of the information to criminally investigate or prosecute any alcohol or drug abuse patient.[facility]In the event this information is protected by the Federal Confidentiality of Alcohol and Drug Abuse Patient Records regulations: The Federal rules restrict any use of the information to criminally investigate or prosecute any alcohol or drug abuse patient.[facility]In the event this information is protected by the Federal Confidentiality of Alcohol and Drug Abuse Patient Records regulations: The Federal rules restrict any use of the information to criminally investigate or prosecute any alcohol or drug abuse patient.[facility]In the event this information is protected by the Federal Confidentiality of Alcohol and Drug Abuse Patient Records regulations: The Federal rules restrict any use of the information to criminally investigate or prosecute any alcohol or drug abuse patient.[facility]In the event this information is protected by the Federal Confidentiality of Alcohol and Drug Abuse Patient Records regulations: The Federal rules restrict any use of the information to criminally investigate or prosecute any alcohol or drug abuse patient.[facility]In the event this information is protected by the Federal Confidentiality of Alcohol and Drug Abuse Patient Records regulations: The Federal rules restrict any use of the information to criminally investigate or prosecute any alcohol or drug abuse patient.[facility]In the event this information is protected by the Federal Confidentiality of Alcohol and Drug Abuse Patient Records regulations: The Federal rules restrict any use of the information to criminally investigate or prosecute any alcohol or drug abuse patient.[facility]In the event this information is protected by the Federal Confidentiality of Alcohol and Drug Abuse Patient Records regulations: The Federal rules restrict any use of the information to criminally investigate or prosecute any alcohol or drug abuse patient.[facility]In the event this information is protected by the Federal Confidentiality of Alcohol and Drug Abuse Patient Records regulations: The Federal rules restrict any use of the information to criminally investigate or prosecute any alcohol or drug abuse patient.[facility]In the event this information is protected by the Federal Confidentiality of Alcohol and Drug Abuse Patient Records regulations: The Federal rules restrict any use of the information to criminally investigate or prosecute any alcohol or drug abuse patient.[facility]In the event this information is protected by the Federal Confidentiality of Alcohol and Drug Abuse Patient Records regulations: The Federal rules restrict any use of the information to criminally investigate or prosecute any alcohol or drug abuse patient.[facility]In the event this information is protected by the Federal Confidentiality of Alcohol and Drug Abuse Patient Records regulations: The Federal rules restrict any use of the information to criminally investigate or prosecute any alcohol or drug abuse patient.[facility]In the event this information is protected by the Federal Confidentiality of Alcohol and Drug Abuse Patient Records regulations: The Federal rules restrict any use of the information to criminally investigate or prosecute any alcohol or drug abuse patient.[facility]In the event this information is protected by the Federal Confidentiality of Alcohol and Drug Abuse Patient Records regulations: The Federal rules restrict any use of the information to criminally investigate or prosecute any alcohol or drug abuse patient.[facility]In the event this information is protected by the Federal Confidentiality of Alcohol and Drug Abuse Patient Records regulations: The Federal rules restrict any use of the information to criminally investigate or prosecute any alcohol or drug abuse patient.[facility]In the event this information is protected by the Federal Confidentiality of Alcohol and Drug Abuse Patient Records regulations: The Federal rules restrict any use of the information to criminally investigate or prosecute any alcohol or drug abuse patient.[facility]In the event this information is protected by the Federal Confidentiality of Alcohol and Drug Abuse Patient Records regulations: The Federal rules restrict any use of the information to criminally investigate or prosecute any alcohol or drug abuse patient.[facility]In the event this information is protected by the Federal Confidentiality of Alcohol and Drug Abuse Patient Records regulations: The Federal rules restrict any use of the information to criminally investigate or prosecute any alcohol or drug abuse patient.[facility]In the event this information is protected by the Federal Confidentiality of Alcohol and Drug Abuse Patient Records regulations: The Federal rules restrict any use of the information to criminally investigate or prosecute any alcohol or drug abuse patient.[facility]In the event this information is protected by the Federal Confidentiality of Alcohol and Drug Abuse Patient Records regulations: The Federal rules restrict any use of the information to criminally investigate or prosecute any alcohol or drug abuse patient.[facility]In the event this information is protected by the Federal Confidentiality of Alcohol and Drug Abuse Patient Records regulations: The Federal rules restrict any use of the information to criminally investigate or prosecute any alcohol or drug abuse patient.[facility]In the event this information is protected by the Federal Confidentiality of Alcohol and Drug Abuse Patient Records regulations: The Federal rules restrict any use of the information to criminally investigate or prosecute any alcohol or drug abuse patient.[facility]In the event this information is protected by the Federal Confidentiality of Alcohol and Drug Abuse Patient Records regulations: The Federal rules restrict any use of the information to criminally investigate or prosecute any alcohol or drug abuse patient.[facility]In the event this information is protected by the Federal Confidentiality of Alcohol and Drug Abuse Patient Records regulations: The Federal rules restrict any use of the information to criminally investigate or prosecute any alcohol or drug abuse patient.[facility]In the event this information is protected by the Federal Confidentiality of Alcohol and Drug Abuse Patient Records regulations: The Federal rules restrict any use of the information to criminally investigate or prosecute any alcohol or drug abuse patient.[facility]In the event this information is protected by the Federal Confidentiality of Alcohol and Drug Abuse Patient Records regulations: The Federal rules restrict any use of the information to criminally investigate or prosecute any alcohol or drug abuse patient.[facility]In the event this information is protected by the Federal Confidentiality of Alcohol and Drug Abuse Patient Records regulations: The Federal rules restrict any use of the information to criminally investigate or prosecute any alcohol or drug abuse patient.[facility]In the event this information is protected by the Federal Confidentiality of Alcohol and Drug Abuse Patient Records regulations: The Federal rules restrict any use of the information to criminally investigate or prosecute any alcohol or drug abuse patient.[facility]In the event this information is protected by the Federal Confidentiality of Alcohol and Drug Abuse Patient Records regulations: The Federal rules restrict any use of the information to criminally investigate or prosecute any alcohol or drug abuse patient.[facility]In the event this information is protected by the Federal Confidentiality of Alcohol and Drug Abuse Patient Records regulations: The Federal rules restrict any use of the information to criminally investigate or prosecute any alcohol or drug abuse patient.[facility] Goals (unrecognized section and content) Goals may be documented in a n alternate section Reason for Visit (unrecogniz ed section and content) Reason Comments Follow Up Rx Refills Low Back Pain Neck Pain Pain (foot) left Reason Comments Injections Reason Comments External Referrals/resources Reason Comments Medication Problem [place] 5-325mg early refill request Reason Comments Refill Request Reason Comments Joint Pain Reason Comments Follow Up Rx Refills Reason Comments Rheumatoid Arthritis no refills Reason Comments Refill Request Reason Onset Date Comments Refill Request 12/23/2021 Reason Onset Date Comments Refill Request Refill Request 02/23/2022 Reason Comments Medication Problem Reason Comments Procedure Back Pain LOWER - LEFT IS WORS E Specialty Diagnoses / Procedures Referred By Contac t Referred To Contact Pain Management / PAIN MANAGEMENT Diagnoses Lumbago with sciatica, left side Other chronic pain Postlaminectomy syndrome, not elsewhere classified Caudal LULU with fluoro Procedures NJX DX/THER SBST INTRLMNR LMBR/SAC W/IMG GDN PROCEDURE 20 Forest Dos Santos MD [address] [facility] [address] [facility] [address] [place] [address] Forest Dos Santos MD [address] [place] [address] Referral ID Status Reason Start Date Expiration Date Visits Re quested Visits Authorized [id number] Closed 03/23/2022 06/21/2022 1 1 Reason Comments Procedure Follow Up Dr. Dos Santos 03-23-22 Reason Comments Appointment Cancelled Reason Comments Follow Up Rx Refills Low Back Pain Reason Comments Experimental [employer] Test [employer]ic - Other no more meds No more Meds - SPI Reason Comments Returning Patient's Call Reason Comments Injections Injection questions Reason Comments Refill Request baclofen (LIORESAL) 10 mg tablet Reason Comments Joint Pain Reason Comments SLE Follow up visit with nephrology notes on chart from Dr. William Adames on 05-07-23 Patient states issue inside of mouth and forgetfulness Reason Comments Patient Question Reason Comments Results Reason Comments Consult Oral Surgeon Reason Comments Results Awaiting fax with la b results Reason Comments Rheumatoid Arthritis SLE Reason Comments Patient Update Reason Comments SLE Reason Onset Date Comments Refill Request 01/03/2024 Reason Comments No Show Reason Comments Abdominal Pain Care Team (unrecognized sect ion and content) Personnel Name: KATHERINE MUNOZ MD Address: Address: [address] [place] [address]- Care Team Personnel Name: KATHERINE MUNOZ MD Member Role: Primary Care Physician Address: Address: [address] [place] [address] Name: SHILO HAM DO Position: ED Physician Member Role: Attending Physician Address: Address: [address] [place] [address] Care Team Related Persons Name: CIELO PICHARDO Address: Home [address] [place] [address] [place] Name: KATT BESS Address: Home [address] [place] [address] [place] Name: ELIOT SAUCEDO Name: AGAPITO ROWE FOR RECORDS PERTAINING TO PATIENTS WHO ARE OR HAVE BEEN ENROLLED IN A CHEMICAL DEPENDENCY/SUBSTANCEABUSE PROGRAM, SOME INFORMATION MAY BE OMITTED. This clinical summary was aggregated from multiple sources. Caution should be exercised in using it in the provision of clinical care. This summary normalizes information from multiple sources, and as a consequence, information in this document may materially change the coding, format and clinical context of patient data. In addition, data may be omitted in some cases. CLINICAL DECISIONS SHOULD BE BASED ON THE PRIMARY CLINICAL RECORDS. [facility] [employer] [facility]. provides no warranty or guarantee of the accuracy or completeness of information in this document.
--- NOTE | 2024-12-08 12:36 | EX.ED.DYSGE1 ---
HPI History of Present Illness Chief Complaint: Abd Pain Narrative Narrative: Chief complaint and HPI: 49-year-old female with past medical history of GERD, lupus, interstitial cystitis presents for evaluation of abdominal pain. Patient states for the past 3 days she has been having diffuse abdominal pain with nausea and vomiting. Triage note states that her emesis is coffee-ground however she declines this to me. States that her emesis was originally food and then yellow in color. She states she has had some red tinge stool and stools that appear coffee-ground but states her vomit was not coffee-ground in nature. She states at baseline she has hematuria. She denies any fever, chills, chest pain, shortness of breath, diarrhea, constipation. Endorses decreased p.o. intake. Review of systems: See HPI Medications: As listed on the chart Allergies: As listed on the chart PFSH: Per chart Vital signs: As listed on the chart. Reviewed. Physical exam: Gen: A&O x3, NAD Head: Normocephalic, atraumatic Eyes: No sclera icterus, conjunctiva clear ENT: Moist mucous membranes Neck: Trachea midline, No JVD CV: RRR, no murmurs, no peripheral edema Resp: Lungs CTA BL, no w/r/c GI: Abd soft, non-distended, mildly tender to palpation diffusely, no r/r/g Rectal: Normal external examination. No evidence of hemorrhoids or fissures. Normal tone and sensation. No masses, fluctuance, or tenderness. No pain out of proportion. Stoo brown on gloved finger : No CVA tenderness Musc: Full ROM, no deformity Skin: Warm, dry Neuro: Alert, oriented, grossly intact, sensation intact Psych: Cooperative, appropriate mood and affect [facility] Medical History Bilateral foot pain Erosive gastritis Esophagitis Spinal cord stimulator status Difficult intravenous access Esophageal dilatation Gastroparesis Chronic nausea Galactorrhea GERD (gastroesophageal reflux disease) High cholesterol PTSD (post-traumatic stress disorder) History of stress test History of echocardiogram Cardiology follow-up encounter Bradycardia Degenerative disc disease Superior glenoid labrum lesion of right shoulder Constipation Early satiety Cough Nausea and vomiting Epigastric pain Flu vaccine need Lupus Debility Chronic lumbar radiculopathy Health care maintenance Hematemesis Vomiting Elevated antinuclear antibody (PAT) level Positive P-ANCA titer GI bleed Colon polyp Fatty liver Sludge in gallbladder Post-menopausal Anxiety Seizures Smoker Wheelchair dependent Foot pain, left Lower GI bleeding Dysphagia Elevated blood pressure reading Hypokalemia Abdominal pain UTI (urinary tract infection) Uterine cancer Cervical cancer Interstitial cystitis Acute cystitis Hematuria Flank pain Fibromyalgia Blurry vision, left eye Dizziness Headache Fall Postoperative pain Acute pain of left foot Postoperative wound infection Cellulitis Incisional hernia Gastroesophageal reflux disease Urinary frequency Urge incontinence Urinary urgency Migraines Lamar's palsy Depression with anxiety Ulcer Lipoma Stroke Osteoarthritis Neuropathy Kidney stones Irritable bowel syndrome Hives Hearing problem Carpal tunnel syndrome Arthritis Seasonal allergies Home Medications ?Medication ?Instructions ?Recorded ?Last Taken ?Type topiramate 200 mg tablet 200 mg PO QHS headaches 08/15/18 08/21/24 History Handicap Placard #1 ea 05/03/20 Unknown Rx baclofen 10 mg tablet 10 mg PO TID 03/23/21 10/13/24 06:00 History walker (Ultra-Light Rollator misc) #1 ea 09/26/21 Unknown Rx walker (Ultra-Light Rollator misc) #1 ea 08/10/22 Unknown Rx hydroxychloroquine 200 mg tablet 200 mg PO BID 08/15/22 10/13/24 06:00 History Handicap Placard #1 ea 03/09/23 Unknown Rx wheelchair #1 ea 03/09/23 Unknown Rx carbamazepine 200 mg tablet 200 mg PO DAILY seizures 04/17/23 10/13/24 06:00 History fremanezumab-vfrm 225 mg/1.5 mL 225 mg subcut QMONTH 04/17/23 10/02/24 History subcutaneous auto-injector (Ajovy) nortriptyline 10 mg capsule 30 mg PO QHS 04/17/23 08/21/24 History prazosin 2 mg capsule 4 mg PO QHS 04/17/23 08/21/24 History folic acid 1 mg tablet 1 mg PO DAILY 06/08/23 08/21/24 History cholecalciferol (vitamin D3) 1,250 1,250 mcg PO QWEEK 08/31/23 08/21/24 History mcg (50,000 unit) capsule Rollator walker #1 ea 02/21/24 Unknown Rx ubrogepant 100 mg tablet (Ubrelvy) 100 mg PO DAILY PRN migraine 04/04/24 Unknown Rx headache #10 tabs psyllium seed (sugar) oral powder 1 tbsp PO .COMPLEX PRN constipation 04/28/24 08/21/24 History (Metamucil (sugar) oral powder) pantoprazole 40 mg tablet,delayed 40 mg PO DAILY #90 tabs 07/09/24 10/13/24 06:00 Rx release promethazine 25 mg tablet 25 mg PO BID PRN nausea and 07/09/24 08/21/24 Rx vomiting #30 tabs linaclotide 145 mcg capsule 145 mcg PO QDAY #90 caps 08/05/24 08/21/24 Rx (Linzess) scopolamine base 1 mg over 3 days 1 patch transdermal Q3D PRN nausea 08/13/24 08/22/24 Rx transdermal patch and vomiting #10 ea levetiracetam 1,000 mg tablet 1,000 mg PO BID 08/21/24 10/13/24 06:00 History dicyclomine 10 mg capsule 10 mg PO BID PRN abdominal pain 09/23/24 Unknown Rx #120 caps ondansetron 4 mg disintegrating 4 mg PO Q6H PRN nausea and 09/23/24 Unknown Rx tablet vomiting #60 tabs galcanezumab-gnlm 120 mg/mL 120 mg subcut DAILY PRN migraine 10/02/24 Unknown History subcutaneous pen injector headache (Emgality Pen) simvastatin 20 mg tablet 20 mg PO QPM #90 tabs 10/15/24 Unknown Rx buspirone 10 mg tablet 10 mg PO .2-4X PER DAY PRN 10/27/24 Unknown History epinephrine 0.3 mg/0.3 mL 0.3 mg (0.3 mL) IM Q5-15M PRN 10/27/24 Unknown Rx injection, auto-injector (EpiPen anaphylaxis #2 ea 2-Raymond) methotrexate sodium 2.5 mg tablet 25 mg PO .COMPLEX 10/27/24 Unknown History quetiapine 300 mg tablet (Seroquel) 300 mg PO .COMPLEX 10/27/24 Unknown History quetiapine 400 mg tablet 400 mg PO .COMPLEX 10/27/24 Unknown History gabapentin 600 mg tablet 600 mg PO TID nerve pain #90 tabs 11/12/24 Unknown Rx lactulose 10 gram/15 mL oral 10 g (15 mL) PO TID #300 mL 11/17/24 Unknown Rx solution prochlorperazine maleate 10 mg 10 mg PO Q8H PRN nausea and 11/17/24 Unknown Rx tablet (Compazine) vomiting #90 tabs trazodone 100 mg tablet 100 mg PO QHS 12/08/24 Unknown History Allergy/AdvReac Type Severity Reaction Status Date / Time venom-honey bee Allergy Severe severe Verified 12/08/24 11:53 venom-wasp Allergy Severe severe Verified 12/08/24 11:53 coconut Allergy Intermediate Hives Verified 12/08/24 11:53 doxycycline Allergy Intermediate Rash Verified 12/08/24 11:53 mushroom Allergy Intermediate Hives Verified 12/08/24 11:53 ciprofloxacin (From Cipro) Allergy Rash Verified 12/08/24 11:53 erythromycin base Allergy Anaphylaxis Verified 12/08/24 11:53 iodine Allergy Anaphylaxis Verified 12/08/24 11:53 latex Allergy Rash Verified 12/08/24 11:53 metronidazole (From Flagyl) Allergy Anaphylaxis Verified 12/08/24 11:53 naproxen (From Naprosyn) Allergy Anaphylaxis Verified 12/08/24 11:53 Penicillins Allergy Anaphylaxis Verified 12/08/24 11:53 shellfish derived Allergy Anaphylaxis Verified 12/08/24 11:53 lithium AdvReac Intermediate Mood Verified 12/08/24 11:53 changes adhesive AdvReac Mild BLISTERS Verified 12/08/24 11:53 sulfamethoxazole (From AdvReac Hives Verified 12/08/24 11:53 Bactrim) trimethoprim (From Bactrim) AdvReac Hives Verified 12/08/24 11:53 Family History Father Asthma Grandfather No problems noted. Grandmother Asthma Brother Lung cancer Diabetes Hypertension Grandfather Asthma Grandmother Asthma Hypertension Mother Diabetes Aunt Diabetes Son Seizures Asthma Surgical History History of cholecystectomy S/P cholecystectomy Hx of surgical procedure History of colonoscopy History of esophagogastroduodenoscopy (EGD) Hx of surgical procedure Status post left foot surgery S/P left knee surgery S/P umbilical hernia repair, follow-up exam History of bladder repair surgery History of spinal surgery History of appendectomy History of hysterectomy History of orthopedic surgery History of carpal tunnel surgery of right wrist Social History Smoking Status: Light Smoker (<10/day) quit status: considering quitting alcohol intake: never substance use type: does not use caffeine: No what type of physical activity do you participate in: none EXAM Physical Exam Const Vital Signs: 12/08/24 11:51 Temperature 98.2 F Temperature Source Oral Pulse Rate 70 Respiratory Rate 18 Blood Pressure 116/62 Blood Pressure Mean 80 Pulse Ox 99 Oxygen Delivery Method Room Air MDM MDM MDM Narrative Medical decision making narrative: 49-year-old female with past medical history of GERD, lupus, interstitial cystitis presents for evaluation of abdominal pain. Patient states for the past 3 days she has been having diffuse abdominal pain with nausea and vomiting. Endorses her stool appearing coffee ground as well as red-tinged. Denies any coffee ground emesis. Has baseline hematuria. Differential diagnosis includes but is not limited to viral gastroenteritis, colitis, gastritis, GERD, PUD, pancreatitis, UTI, urolithiasis, GI bleed. NS bolus, morphine, Zofran ordered for symptoms. Abdominal pain workup ordered including CT abdomen pelvis. Patient has history of anaphylaxis to contrast therefore CT abdomen pelvis ordered without contrast. CBC without leukocytosis. Patient has baseline anemia of 11.2. CMP unremarkable without significant electrolyte abnormality or SERGIO. No transaminitis. Lipase unremarkable. Stool occult negative. Lactic acid unremarkable he. UA negative for UTI. CT abdomen pelvis positive for constipation but no acute abnormalities. On reevaluation, patient still endorsing abdominal pain. Bentyl and Pepcid ordered. She was updated of her results. She declined enema. States she has been having bowel movements and takes stool softeners at home. On reevaluation, patient's pain has improved. She was able to tolerate p.o. intake. No vomiting. P Follow-up with PCP. She confirmed understanding of plan. Patient stable discharge home. Impression: 1. Abdominal pain 2. Nausea and vomiting 3. Constipation 4. GERD Lab Data Labs: Laboratory Results - last 24 hr 12/08/24 13:00 WBC 4.6 RBC 3.08 L Hgb 11.2 L Hct 33.0 L MCV 107.1 H MCH 36.4 H MCHC 33.9 RDW Std Deviation 52.1 H RDW Coeff of Karina 13.6 Plt Count 177 MPV 11.5 Immature Gran % (Auto) 0.400 Neut % (Auto) 55.7 Lymph % (Auto) 34.5 [place] % (Auto) 6.1 Eos % (Auto) 2.6 Baso % (Auto) 0.7 Absolute Neuts (auto) 2.6 Absolute Lymphs (auto) 1.59 Nucleated RBC % 0 Sodium 141 Potassium 3.9 Chloride 110 H Carbon Dioxide 20.5 L Anion Gap 10 BUN 9 Creatinine 0.73 Estim Creat Clear Calc 101.89 Est GFR (MDRD) Non-Af 101 BUN/Creatinine Ratio 12.8 Glucose 92 Lactic Acid < 1.0 Calcium 8.5 Total Bilirubin < 0.15 AST 20 ALT 13 Alkaline Phosphatase 118 H Total Protein 7.0 Albumin 4.0 Globulin 3.1 Albumin/Globulin Ratio 1.3 Lipase 16 Urine Color Yellow Urine Clarity Sl. Cloudy Urine pH 6.0 Ur Specific Bozrah 1.010 Urine Protein 15 H Urine Glucose (UA) Normal Urine Ketones Negative Urine Occult Blood Negative Urine Nitrite Negative Urine Bilirubin Negative Urine Urobilinogen Normal Ur Leukocyte Esterase Negative Urine RBC 0 SEEN Urine WBC 0 SEEN Ur Squamous Epith Cells 0-5 SEEN Urine Bacteria 0 SEEN Urine Mucus 0 SEEN Radiography Diagnostic Testing: Clinical Impression(s) from Imaging Studies Abdomen/Pelvis CT 12/08/24 12:33 IMPRESSION: 1. No acute noncontrast findings. 2. Additional description as above. Reading Location: [facility] Discharge Plan Triage Chief Complaint: Abd Pain ED Provider: Malick Taylor Dx/Rx/DC Orders Prescriptions: No Action topiramate 200 mg tablet 200 mg PO QHS carbamazepine 200 mg tablet 200 mg PO DAILY baclofen 10 mg tablet 10 mg PO TID quetiapine [Seroquel] 300 mg tablet 300 mg PO .COMPLEX Rx Instructions: 300 mg orally w/ 400mg qhs total 700mg; hydroxychloroquine 200 mg tablet 200 mg PO BID (DME) Handicap Placard See Rx Instructions .ROUTE .MEDSUPPLY Qty: 1 0RF Rx Instructions: As directed, length of time 3 years (DME) wheelchair See Rx Instructions .Route .MEDSUPPLY Qty: 1 0RF Rx Instructions: As directed folic acid 1 mg tablet 1 mg PO DAILY methotrexate sodium 2.5 mg tablet 25 mg PO .COMPLEX Rx Instructions: 25 mg orally; 10 tablets once weekly quetiapine 400 mg tablet 400 mg PO .COMPLEX Rx Instructions: 400 mg orally w/ 300mg qhs= 700mg; nortriptyline 10 mg capsule 30 mg PO QHS prazosin 2 mg capsule 4 mg PO QHS Ajovy Autoinjector 225 mg/1.5 mL auto-injector 225 mg subcut QMONTH (DME) Rollator walker See Rx Instructions .Route .MEDSUPPLY Qty: 1 0RF Rx Instructions: As directed Metamucil (sugar) Powder 1 tbsp PO .COMPLEX PRN (Reason: constipation) Rx Instructions: 1 tbsp orally twice a week PRN; 3x/wk pantoprazole 40 mg tablet,delayed release (DR/EC) 40 mg PO DAILY Qty: 90 1RF promethazine 25 mg tablet 25 mg PO BID PRN (Reason: nausea and vomiting) Qty: 30 1RF epinephrine [EpiPen 2-Raymond] 0.3 mg/0.3 mL auto-injector 0.3 mg IM Q5-15M PRN (Reason: anaphylaxis) Qty: 2 1RF Rx Instructions: do not exceed 3 doses per episode cholecalciferol (vitamin D3) 1,250 mcg (50,000 unit) capsule 1,250 mcg PO QWEEK levetiracetam 1,000 mg tablet 1,000 mg PO BID Emgality Pen 120 mg/mL pen injector 120 mg SUBCUT DAILY PRN (Reason: migraine headache) Patient Comments: [NO ORIGINAL SIG] buspirone 10 mg tablet 10 mg PO .2-4X PER DAY PRN trazodone 100 mg tablet 100 mg PO QHS (DME) Handicap Placard See Rx Instructions .Route .MEDSUPPLY Qty: 1 0RF Rx Instructions: As directed, length of time 3 years (DME) Ultra-Light Rollator Misc See Rx Instructions .Route Qty: 1 0RF Rx Instructions: As directed (DME) Ultra-Light Rollator Misc See Rx Instructions .Route Qty: 1 0RF Rx Instructions: As directed Ubrelvy 100 mg tablet 100 mg PO DAILY PRN (Reason: migraine headache) Qty: 10 0RF Linzess 145 mcg capsule 145 mcg PO QDAY Qty: 90 1RF scopolamine base 1 mg over 3 days patch 3 day 1 patch transdermal Q3D PRN (Reason: nausea and vomiting) Qty: 10 1RF dicyclomine 10 mg capsule 10 mg PO BID PRN (Reason: abdominal pain) Qty: 120 0RF ondansetron 4 mg tablet,disintegrating 4 mg PO Q6H PRN (Reason: nausea and vomiting) Qty: 60 1RF simvastatin 20 mg tablet 20 mg PO QPM Qty: 90 0RF gabapentin 600 mg tablet 600 mg PO TID Qty: 90 0RF prochlorperazine maleate [Compazine] 10 mg tablet 10 mg PO Q8H PRN (Reason: nausea and vomiting) Qty: 90 0RF lactulose 10 gram/15 mL solution 10 g PO TID Qty: 300 3RF Primary Care Provider: Gayle Munoz Referrals: Gayle Munoz MD [Primary Care Provider] - Print Language: Upper Sorbian
[2024-12-08] MEDS: 0.9% Normal Saline (1000mL) 1,000 ML 999 ML IV (12:57)
[2024-12-08 13:02] VITALS: BMI 27.1
[2024-12-08 13:07] LABS: Mucous, Urine 0 SEEN /hpf (<or=2+); Red Blood Cells-Urine 0 SEEN /hpf (0-5)
[2024-12-08 13:10] LABS: Color, Urine Yellow (Yellow); Glucose, Dipstick Normal (Normal); Ketone-Dipstick Negative (Negative); Leukocyte Esterase-Dipstick Negative /ul (Negative); Nitrite-Dipstick Negative (Negative); Occult Blood-Urine Negative /ul (Negative); Protein-Dipstick 15 mg/dl (Negative); Specific Gravity, Urine 1.010 (1.002-1.030); Urine Bilirubin Dipstick Negative (Negative)
[2024-12-08 13:11] LABS: Hematocrit 33.0 % (37-47); Hemoglobin 11.2 g/dL (12.0-15.0); Immature Granulocytes Count 0.020 X10^3/uL (0.0-0.0); Mean Corp Hgb Conc 33.9 g/dL (32-36); Mean Corpuscular Volume 107.1 fL (81-99); Mean Platelet Vol. 11.5 fl (6.2-12.0); NRBC Flagged by Analyzer 0 % (0-5); Platelet Count 177 K/mm3 (150-450); RBC Distribution Width CV 13.6 % (11.6-14.6); RBC Distribution Width SD 52.1 fl (35.1-43.9); Red Blood Count 3.08 M/mm3 (4.2-5.4); White Blood Count 4.6 K/mm3 (4.4-11.0)
[2024-12-08 13:16] LABS: Squamous Epithelial Cells - UA 0-5 SEEN /hpf (5-10)
[2024-12-08 13:37] LABS: Lipase 16 U/L (13-75)
[2024-12-08 13:42] LABS: AST(SGOT) 20 U/L (<=31); Alanine Aminotransfer ALT/SGPT 13 U/L (<=34); Albumin, Serum 4.0 g/dL (3.5-5.0); Alkaline Phosphatase 118 U/L (35-104); Anion Gap 10 (5-15); BUN 9 mg/dL (4-19); BUN/Creat Ratio 12.8 RATIO (10-20); Calcium,Total 8.5 mg/dL (7.6-11.0); Carbon Dioxide 20.5 mmol/L (21.0-32.0); Chloride 110 mmol/L (98-108); Estimated Creatinine Clearance 101.89 ml/min (50-250); Globulin 3.1 g/dL (2.2-4.2); Glucose 92 mg/dL (70-99); Potassium 3.9 mmol/L (3.3-5.1)
[2024-12-08 13:51] VITALS: BP 143/84; PULSE 75
[2024-12-08] MEDS: Famotidine 200 MG/20 ML MDV 20 MG in 0.9% Normal Saline (Pres. free 8 ML 300 MG IV (14:22)
[2024-12-08 15:15] VITALS: BP 113/64; PULSE 75; RESP 16; TEMP 36.7; O2SAT 100
== END 2024-12-08 15:17 | disposition home or self-care (01) ==
PROVIDERS: Emergency Provider Surgery; PCP Internal Medicine; Visit Provider Surgery
DX: R10.9 Unspecified abdominal pain (principal); R11.2 Nausea with vomiting, unspecified; K21.9 Gastro-esophageal reflux disease without esophagitis; K59.00 Constipation, unspecified; Z86.73 Personal history of transient ischemic attack (TIA), and cerebral infarction without residual deficits
CPT/HCPCS: 74176; 80053; 81001; 82274; 83605; 83690; 85025; 96361; 96365; 96375; 99282; J2405